=== PATIENT | female | born 1950 | race Caucasian/White ===

== ENCOUNTER 2016-08-12 13:10 | Inpatient (IN) ==
--- NOTE | 2016-08-12 13:13 | Emergency Department Note ---
Disposition Clinical Impression: Morbid obesity, Atrial fibrillation, Atrial fibrillation with rapid ventricular response, COPD (chronic obstructive pulmonary disease), Chronic anticoagulation, Hypertension, Chest pain Disposition: Admitted As Inpatient Condition: Fair Referrals: NO,PCP [Non-Partnered Physician] - General Adult HPI - General Stated complaint: SOB/Think I'm in A-Fib Time Seen by Provider: 08/12/16 13:12 Source: patient, family - History of Present Illness HPI Narrative: 65-year-old female reports to the emergency department complaining of high heart rate. She reports she has a history of atrial fibrillation, she takes sotalol. The patient is also on Coumadin. She reports her felt her heart rafrante go fast last night and it has been persistent. The patient has a history of COPD and recently finished a course of antibiotics for upper respiratory symptoms, she also complains of diarrhea which has been nonbloody. The patient describes some chest pressure earlier but has not had chest pain in the ED. She has been short of breath. She has a slight cough. The patient requires oxygen at home. There is no history of vomiting or diarrhea. No trouble moving the arms or legs independently. No slurred speech or unilateral arm weakness or numbness. No acute back pain or falls. Chronic lower extremity edema as described, the patient does take diuretic medication she denies any coronary artery disease. The patient has not had any coughing of blood or passing out. Onset (ago): hour(s) - Related Data Home Medications Medication Instructions Recorded Confirmed Alendronate Sodium [Fosamax] 70 mg PO WE 10/28/15 08/12/16 Ascorbate Calcium [Vitamin C] 500 mg PO DAILY 10/28/15 08/12/16 Calcium Carbonate/Vitamin D3 1 tab PO BID 10/28/15 08/12/16 [Calcium 500-Vit D3 400 Tablet] Cholecalciferol (Vitamin D3) 1,000 unit PO DAILY 10/28/15 08/12/16 [Vitamin D3] Cyanocobalamin (Vitamin B-12) 100 mcg PO DAILY 10/28/15 08/12/16 [Vitamin B-12] Fluticasone/Salmeterol [Advair 1 puff IH BID 10/28/15 08/12/16 250-50 Diskus] Furosemide [Lasix] 40 mg PO DAILY 10/28/15 08/12/16 Lisinopril [Zestril] 10 mg PO DAILY 10/28/15 08/12/16 Potassium Chloride [K-Tab ER] 20 meq PO DAILY 10/28/15 08/12/16 Ropinirole HCl [Requip] 2 mg PO HS 10/28/15 08/12/16 Tiotropium [Spiriva] 18 mcg IH HS 10/28/15 08/12/16 Warfarin [Coumadin] 5 mg PO QPM 10/28/15 08/12/16 Dexlansoprazole [Dexilant] 60 mg PO DAILY 07/03/16 08/12/16 Ferrous Sulfate [Iron] 325 mg PO DAILY 07/03/16 08/12/16 Doxycycline 100 mg PO BID 08/12/16 08/12/16 Previous Rx's Medication Instructions Recorded Montelukast [Singulair] 10 mg PO DAILY #30 tablet 07/09/16 Sotalol [Betapace] 80 mg PO Q12H #60 tablet 07/09/16 Allergies Allergy/AdvReac Type Severity Reaction Status Date / Time albuterol Allergy Difficulty Verified 08/12/16 16:27 Breathing aspirin [ASA] Allergy Difficulty Verified 08/12/16 13:24 Breathing Penicillins Allergy Hives Verified 08/12/16 13:24 Sulfa (Sulfonamide Allergy Rash Verified 08/12/16 16:27 Antibiotics) All systems ED: reviewed and negative except as stated. Past Medical History - Past Medical History Medical history: Reports: asthma, atrial fibrillation, COPD, hypertension Surgical history: Reports: cholecystectomy, hysterectomy Psychiatric history: Reports: no psych history RN NICU history: Reports: no RN NICU history - Social History Smoking Status: Former smoker Smokeless Tobacco Status: No Alcohol use: Reports: none Drug use: Reports: none Physical Exam - General Limitations: no limitations General appearance: alert, in no apparent distress - Head Head exam: atraumatic, normocephalic, normal inspection - Eye Eye exam: Present: normal appearance, PERRL, EOMI. Absent: scleral icterus, miosis, mydriasis - ENT ENT exam: normal exam, normal oropharynx, mucous membranes moist, normal external ear exam - Neck Neck exam: Present: normal inspection, full ROM, trachea midline - Chest Chest inspection: Present: symmetric chest wall rise. Absent: tenderness - Respiratory Respiratory exam: Present: wheezes, prolonged expiratory phase. Absent: respiratory distress - Cardiovascular Cardiovascular exam: Present: tachycardia, irregular rhythm - Abdominal Exam Abdominal exam: Present: soft, Non-Tender. Absent: tenderness, distention, guarding, rebound, rigidity - Extremities Exam Extremities exam: Present: normal inspection, full ROM, normal capillary refill , pedal edema. Absent: tenderness, joint swelling, calf tenderness - Expanded Lower Extremity Exam Lower leg exam: Absent: Homans' sign Neurovascular/Tendon exam: Absent: motor deficit, sensory deficit, tendon deficit - Back Exam Back exam: Present: normal inspection, full ROM. Absent: tenderness, CVA tenderness (R), CVA tenderness (L), vertebral tenderness - Neurological Exam Neurological exam: Present: alert, oriented X3, CN II-XII intact. Absent: motor sensory deficit - Skin Skin exam: Present: warm, dry, intact, normal color. Absent: rash, cyanosis, diaphoresis, erythema, pallor, mottled Course Vital Signs Temperature 98.4 F 08/12/16 13:15 Pulse Rate 115 08/12/16 13:15 Respiratory Rate 22 08/12/16 13:15 Blood Pressure 139/82 08/12/16 13:15 O2 Sat by Pulse Oximetry 97 08/12/16 13:15 Temperature 98.4 F 08/12/16 13:15 Pulse Rate 71 08/12/16 15:43 Respiratory Rate 15 08/12/16 15:43 Blood Pressure 141/78 08/12/16 15:43 O2 Sat by Pulse Oximetry 97 08/12/16 15:43 Oxygen Delivery Oxygen Delivery Nasal Cannula Medical Decision Making - MDM Narrative Medical decision making narrative: The patient reports she has cardioversion for atrial fibrillation, she was reportedly in sinus rhythm and taking sotalol for control. She appears to have atrial fibrillation with RVR in the ED. She was given some Cardizem which was helpful for rate control. A second EKG has been ordered. The patient did describe some chest pressure but she had none in the ED. Aspirin was ordered. The patient is on Coumadin. Based on the patient's age, multiple comorbidities , apparent breakthrough atrial fibrillation with rapid ventricular response, and chest discomfort, I thought it would be appropriate to admit the patient to the hospital. I consulted the hospitalist. - Lab Data Lab results reviewed: Yes I reviewed the patient's lab results. Result diagrams: 08/12/16 13:30 08/12/16 13:30 Lab Results 08/12/16 08/12/16 08/12/16 Range/Units 13:30 13:30 13:30 WBC 7.3 (4.3-11.1) K/mcL RBC 4.20 (3.82-4.97) M/mcL Hgb 10.7 L (11.5-15.4) g/dL Hct 35.9 (35.3-44.9) % MCV 85.5 (83.0-100.0) fL MCH 25.5 L (28.0-33.3) pg MCHC 29.8 L (31.6-35.5) g/dL RDW 17.1 H (11.5-14.5) % Plt Count 172 (140-400) K/mcL MPV 12.0 (9.4-12.4) fL Immature Gran % 1.4 (0-4) % Seg Neutrophils % 66.7 % Lymphocytes % 18.8 % Monocytes % 11.7 % Eosinophils % 1.0 % Basophils % 0.4 % Neutrophils # 4.9 (1.6-8.9) K/mcL Lymphocytes # 1.4 (0.6-4.6) K/mcL Monocytes # 0.9 (0.0-1.3) K/mcL Eosinophils # 0.1 (0.0-0.6) K/mcL Basophils # 0.0 (0.0-0.2) K/mcL Immature Plt Fraction 9.4 H (1.1-6.1) % PT (9.4-12.1) Seconds INR APTT (26.0-36.0) Seconds Sodium (136-145) mEq/L Potassium (3.5-4.5) mEq/L Chloride (98-109) mEq/L Carbon Dioxide (19-29) mEq/L BUN (7-20) mg/dL Creatinine (0.57-1.11) mg/dL Est GFR ( Amer) (> 60) Est GFR (Non-Af Amer) (> 60) BUN/Creatinine Ratio (6-26) Glucose (70-99) mg/dL Calculated Osmolality (280-300) Lactic Acid 0.7 (0.5-2.2) mmol/L Calcium (8.6-10.8) mg/dL Total Bilirubin 0.3 (0.2-1.2) mg/dL Direct Bilirubin 0.1 (0.0-0.5) mg/dL Indirect Bilirubin 0.2 (0.0-1.2) mg/dL AST 25 (5-34) Units/L ALT 37 (0-55) Units/L Alkaline Phosphatase 61 (38-126) Units/L Troponin I (0-0.03) ng/mL C-Reactive Protein (Less than 5) mg/L B-Natriuretic Peptide (0-100) pg/mL Serum Total Protein 6.3 (6.0-8.3) g/dL Albumin 3.2 L (3.5-5.0) g/dL Globulin 3.1 (2.4-3.5) g/dL Albumin/Globulin Ratio 1.0 L (1.1-2.2) 08/12/16 08/12/16 08/12/16 Range/Units 13:30 13:30 13:30 WBC (4.3-11.1) K/mcL RBC (3.82-4.97) M/mcL Hgb (11.5-15.4) g/dL Hct (35.3-44.9) % MCV (83.0-100.0) fL MCH (28.0-33.3) pg MCHC (31.6-35.5) g/dL RDW (11.5-14.5) % Plt Count (140-400) K/mcL MPV (9.4-12.4) fL Immature Gran % (0-4) % Seg Neutrophils % % Lymphocytes % % Monocytes % % Eosinophils % % Basophils % % Neutrophils # (1.6-8.9) K/mcL Lymphocytes # (0.6-4.6) K/mcL Monocytes # (0.0-1.3) K/mcL Eosinophils # (0.0-0.6) K/mcL Basophils # (0.0-0.2) K/mcL Immature Plt Fraction (1.1-6.1) % PT 36.1 H (9.4-12.1) Seconds INR 3.2 APTT 38.4 H (26.0-36.0) Seconds Sodium 144 (136-145) mEq/L Potassium 4.2 (3.5-4.5) mEq/L Chloride 106 (98-109) mEq/L Carbon Dioxide 32 H (19-29) mEq/L BUN 24 H (7-20) mg/dL Creatinine 0.75 (0.57-1.11) mg/dL Est GFR ( Amer) > 60 (> 60) Est GFR (Non-Af Amer) > 60 (> 60) BUN/Creatinine Ratio 32 H (6-26) Glucose 105 H (70-99) mg/dL Calculated Osmolality 302 H (280-300) Lactic Acid (0.5-2.2) mmol/L Calcium 9.1 (8.6-10.8) mg/dL Total Bilirubin (0.2-1.2) mg/dL Direct Bilirubin (0.0-0.5) mg/dL Indirect Bilirubin (0.0-1.2) mg/dL AST (5-34) Units/L ALT (0-55) Units/L Alkaline Phosphatase (38-126) Units/L Troponin I 0.00 (0-0.03) ng/mL C-Reactive Protein 5 H (Less than 5) mg/L B-Natriuretic Peptide (0-100) pg/mL Serum Total Protein (6.0-8.3) g/dL Albumin (3.5-5.0) g/dL Globulin (2.4-3.5) g/dL Albumin/Globulin Ratio (1.1-2.2) 08/12/16 Range/Units 13:30 WBC (4.3-11.1) K/mcL RBC (3.82-4.97) M/mcL Hgb (11.5-15.4) g/dL Hct (35.3-44.9) % MCV (83.0-100.0) fL MCH (28.0-33.3) pg MCHC (31.6-35.5) g/dL RDW (11.5-14.5) % Plt Count (140-400) K/mcL MPV (9.4-12.4) fL Immature Gran % (0-4) % Seg Neutrophils % % Lymphocytes % % Monocytes % % Eosinophils % % Basophils % % Neutrophils # (1.6-8.9) K/mcL Lymphocytes # (0.6-4.6) K/mcL Monocytes # (0.0-1.3) K/mcL Eosinophils # (0.0-0.6) K/mcL Basophils # (0.0-0.2) K/mcL Immature Plt Fraction (1.1-6.1) % PT (9.4-12.1) Seconds INR APTT (26.0-36.0) Seconds Sodium (136-145) mEq/L Potassium (3.5-4.5) mEq/L Chloride (98-109) mEq/L Carbon Dioxide (19-29) mEq/L BUN (7-20) mg/dL Creatinine (0.57-1.11) mg/dL Est GFR ( Amer) (> 60) Est GFR (Non-Af Amer) (> 60) BUN/Creatinine Ratio (6-26) Glucose (70-99) mg/dL Calculated Osmolality (280-300) Lactic Acid (0.5-2.2) mmol/L Calcium (8.6-10.8) mg/dL Total Bilirubin (0.2-1.2) mg/dL Direct Bilirubin (0.0-0.5) mg/dL Indirect Bilirubin (0.0-1.2) mg/dL AST (5-34) Units/L ALT (0-55) Units/L Alkaline Phosphatase (38-126) Units/L Troponin I (0-0.03) ng/mL C-Reactive Protein (Less than 5) mg/L B-Natriuretic Peptide 412 H (0-100) pg/mL Serum Total Protein (6.0-8.3) g/dL Albumin (3.5-5.0) g/dL Globulin (2.4-3.5) g/dL Albumin/Globulin Ratio (1.1-2.2) - Radiology Data Radiology results reviewed: Yes I reviewed the patient's radiology results.
[2016-08-12 13:42] LABS: Basophils % 0.4 %; Eosinophils # 0.1 K/mcL (0.0-0.6); Hematocrit 35.9 % (35.3-44.9); Hemoglobin 10.7 g/dL (11.5-15.4); Immature Granulocytes % 1.4 % (0-4); Immature Platelets 9.4 % (1.1-6.1); Lymphocytes # 1.4 K/mcL (0.6-4.6); Lymphocytes % 18.8 %; Mean Corpuscular HGB Conc 29.8 g/dL (31.6-35.5); Mean Corpuscular Hemoglobin 25.5 pg (28.0-33.3); Mean Corpuscular Volume 85.5 fL (83.0-100.0); Monocytes # 0.9 K/mcL (0.0-1.3); Monocytes % 11.7 %; Neutrophils # 4.9 K/mcL (1.6-8.9); Platelet Count 172 K/mcL (140-400); Red Cell Distribution Width 17.1 % (11.5-14.5); Segmented Neutrophils % 66.7 %
[2016-08-12 13:48] LABS: INR 3.2; Prothrombin Time 36.1 Seconds (9.4-12.1)
[2016-08-12 13:51] LABS: Activated Partial Thrombo Time 38.4 Seconds (26.0-36.0)
[2016-08-12 13:53] LABS: BUN/Creatinine Ratio 32 (6-26); Blood Urea Nitrogen 24 mg/dL (7-20); Calcium 9.1 mg/dL (8.6-10.8); Carbon Dioxide 32 mEq/L (19-29); Chloride 106 mEq/L (98-109); Glucose 105 mg/dL (70-99); Osmolality,Calculated 302 (280-300); Potassium 4.2 mEq/L (3.5-4.5); Sodium 144 mEq/L (136-145); eGFR For African Americans > 60 (> 60); eGFR For Non-African Americans > 60 (> 60)
[2016-08-12 13:56] LABS: Albumin 3.2 g/dL (3.5-5.0); Bilirubin,Direct 0.1 mg/dL (0.0-0.5); Bilirubin,Indirect 0.2 mg/dL (0.0-1.2); Bilirubin,Total 0.3 mg/dL (0.2-1.2); Globulin 3.1 g/dL (2.4-3.5); Total Protein 6.3 g/dL (6.0-8.3)
[2016-08-12 14:06] LABS: C-Reactive Protein 5 mg/L (Less than 5)
[2016-08-12] MEDS ORDERED: Aspirin 325 MG TABLET PO ONE (15:47)
[2016-08-12] MEDS ORDERED: Naloxone 0.4 MG/ML INJ IVP PRN (18:42)
[2016-08-12] MEDS ORDERED: Acetaminophen 325 MG TABLET PO PRN (18:42)
--- NOTE | 2016-08-12 19:08 | Internal Med History&Physical ---
Date of Encounter: 08/12/16 Time of Encounter: 18:00 Assessment and Plan (1) Atrial fibrillation with rapid ventricular response Current visit: Yes Status: Acute Telemetry monitoring, trend troponins. Continue home dose of sotalol for now with when necessary IV Cardizem. She did receive 1 dose of IV Cardizem in the emergency room and her heart rate has been staying around 100. Cardiology consult for possible cardioversion and addition of calcium channel balbina or beta balbina. She was noted to have bradycardia after converting to sinus rhythm during her previous admission due to which her Cardizem was held. Check 2-D echocardiogram. (2) Essential hypertension Current visit: Yes Status: Chronic Resume home meds. (3) COPD (chronic obstructive pulmonary disease) Current visit: Yes Status: Chronic Not in acute exacerbation. Continue when necessary bronchodilators and supplemental oxygen. Patient is noted to be on 3 L/m oxygen via nasal cannula at home. Qualifiers: COPD type: emphysema Emphysema type: unspecified Qualified Code(s): J43.9 - Emphysema, unspecified (4) Morbid obesity Current visit: Yes Status: Chronic Qualifiers: Obesity type: due to excess calories Qualified Code(s): E66.01 - Morbid ( severe) obesity due to excess calories (5) Diastolic CHF Current visit: Yes Status: Chronic Qualifiers: Congestive heart failure chronicity: chronic Qualified Code(s): I50.32 - Chronic diastolic (congestive) heart failure Internal Medicine - H&P: HPI Chief complaint: Palpitations, chest pain Admitted From: Emergency Dept Plans for Post Hospital Care: Home History of present illness: Ms. Guevara is a 65 year old female with history of paroxysmal atrial fibrillation presents with complaints of palpitations that started last night. Patient was recently admitted and discharged from our hospital about 2 weeks back with similar complaints at which time she underwent electrical cardioversion, her Cardizem was held and she was started on sotalol. She reports compliance to her medications and recently had upper respiratory tract infection for which she received oral antibiotics and steroids. She had a sudden onset of severe palpitations associated with some chest discomfort last night, that persisted until this morning and she decided to come in for evaluation. She does have leg swelling at baseline and some orthopnea but no particular exertional dyspnea, dizziness or syncope. Past Med Surg Social Fam HX - Past Medical History Medical history: asthma, atrial fibrillation, CHF, COPD, hypertension Psychiatric history: no psych history - Past Surgical History Surgical History: cholecystectomy, hysterectomy - Social History Smoking Status: Former smoker Smokeless Tobacco Status: No Alcohol use: none Drug use: none Occupational status: retired Current living situation: Home, With Family Activity Level: Independent ambulation Recent Out of Country Travel Within the Last 8 Weeks: No Exposure or Possible Exposure to Illness During Travel: No - Family History Sister Living Status: Hx Family Cardiac Disorders: Yes Hx Family Respiratory Disorders: Yes (copd) Mother Adopted: No Family Member Ethnicity: Non- Twin of Family Member: Yes, Fraternal Living Status: Hx Family Cardiac Disorders: Yes (chf) Hx Family Respiratory Disorders: No Hx Family Cancer: No Hx Family GI Disorders: No Hx Family Endocrine Disorder: No Hx Family Neuromuscular Disorders: No Hx Family Neurologic Disorders: No Hx Family HEENT Disorders: Yes (tumor in rt ear benign at age 60) Hx Family Autoimmune Disorders: No Father Adopted: No Family Member Ethnicity: Non- Twin of Family Member: Yes, Fraternal Living Status: Age at : 47 Hx Family Cardiac Disorders: Yes Hx Family Respiratory Disorders: Yes (COPD) Hx Family Cancer: No Hx Family GI Disorders: No Hx Family Endocrine Disorder: No Hx Family Neuromuscular Disorders: No Hx Family Neurologic Disorders: No Hx Family HEENT Disorders: No Hx Family Autoimmune Disorders: No Internal Medicine - H&P: Meds Alendronate Sodium [Fosamax] 70 mg PO WE 10/28/15 [History] Ascorbate Calcium [Vitamin C] 500 mg PO DAILY 10/28/15 [History] Calcium Carbonate/Vitamin D3 [Calcium 500-Vit D3 400 Tablet] 1 tab PO BID [History] Cholecalciferol (Vitamin D3) [Vitamin D3] 1,000 unit PO DAILY 10/28/15 [History] Cyanocobalamin (Vitamin B-12) [Vitamin B-12] 100 mcg PO DAILY 10/28/15 [History] Fluticasone/Salmeterol [Advair 250-50 Diskus] 1 puff IH BID 10/28/15 [History] Furosemide [Lasix] 40 mg PO DAILY 10/28/15 [History] Lisinopril [Zestril] 10 mg PO DAILY 10/28/15 [History] Potassium Chloride [K-Tab ER] 20 meq PO DAILY 10/28/15 [History] Ropinirole HCl [Requip] 2 mg PO HS 10/28/15 [History] Tiotropium [Spiriva] 18 mcg IH HS 10/28/15 [History] Warfarin [Coumadin] 5 mg PO QPM 10/28/15 [History] Dexlansoprazole [Dexilant] 60 mg PO DAILY 07/03/16 [History] Ferrous Sulfate [Iron] 325 mg PO DAILY 07/03/16 [History] Montelukast [Singulair] 10 mg PO DAILY #30 tablet 07/09/16 [Rx] Sotalol [Betapace] 80 mg PO Q12H #60 tablet 07/09/16 [Rx] Doxycycline 100 mg PO BID 08/12/16 [History] Allergies albuterol Allergy (Verified 08/12/16 16:27) Difficulty Breathing aspirin [ASA] Allergy (Verified 08/12/16 13:24) Difficulty Breathing Penicillins Allergy (Verified 08/12/16 13:24) Hives Sulfa (Sulfonamide Antibiotics) Allergy (Verified 08/12/16 16:27) Rash All Systems PM: A 10-system review of systems was performed and is negative for pertinent findings except as documented above in the HPI. - Constitutional Constitutional: no chills, no fever(s), no night sweats - EENT Eyes: no change in vision, no discharge, no pain, no photophobia Ears: no ear discharge, no ear pain, no tinnitus Nose, mouth and throat: no dysphagia, no nasal discharge, no neck pain, no sore throat - Cardiovascular Cardiovascular ROS IM: chest pain, edema, palpitations - Respiratory Respiratory: no cough, no dyspnea, no wheezing, no excessive phlegm production - Gastrointestinal Gastrointestinal: no abdominal pain, no diarrhea, no hematemesis, no hematochezia, no melena, no nausea, no vomiting - Genitourinary Genitourinary: no change in urinary stream, no dysuria, no flank pain, no hematuria - Musculoskeletal Musculoskeletal ROS IM: no numbness, no tingling - Integumentary Integumentary IM: no rash, no unusual bruising - Neurological Neurological ROS: no confusion, no convulsions, no focal weakness, no numbness, no tingling, no tremor(s) - Hematologic/Lymphatic Hematologic/Lymphatic: no easy bruising - Constitutional Vitals: Temp Pulse Resp BP Pulse Ox 98.3 F 98 22 169/85 97 08/12/16 18:54 08/12/16 18:54 08/12/16 18:54 08/12/16 18:54 08/12/16 18:54 General appearance: Present: A&O X 3, morbidly obese, answers questions appropriately - Head Head exam: Present: atraumatic, normocephalic - Neck Neck exam general surgery: Present: supple, trachea midline. Absent: lymphadenopathy - Respiratory Respiratory exam: Present: CTAB. Absent: accessory muscle use, rales, rhonchi, wheezes - Cardiovascular Cardiovascular exam: Present: irregular rhythm, +S1, +S2, tachycardia. Absent: diastolic murmur, gallop, rubs, systolic murmur - GI/Abdominal GI/Abdominal exam: Present: normal bowel sounds, soft, no peritoneal signs. Absent: distended, tenderness - Extremities Exam Extremities exam: Present: full ROM, pedal edema, warm, radial pulses palpable and symetrical. Absent: calf tenderness, cyanotic - Neurological Exam Neurological exam: Present: CN II-XII intact, oriented X3, no focal deficits. Absent: pronater drift, facial droop, speech deficit - Skin Skin exam: Present: dry, intact Internal Med - H&P Results - Labs CBC & Chem 7: 08/13/16 01:04 08/13/16 01:04 - EKG Data -: EKG Interpreted by Myself EKG shows normal: sinus rhythm Rate: tachycardia
[2016-08-12] MEDS: Budesonide/Formoterol 160/4.5 MDI IH SCH (20:17)
[2016-08-12] MEDS: Tiotropium 18 MCG inhalation IH SCH (20:17)
[2016-08-12] MEDS: rOPINIRole 1 MG TABLET PO SCH (22:00)
[2016-08-12] MEDS: Doxycycline 100 MG CAPSULE PO SCH (22:00)
[2016-08-13 01:21] LABS: Basophils % 0.5 %; Eosinophils # 0.1 K/mcL (0.0-0.6); Hematocrit 34.4 % (35.3-44.9); Hemoglobin 10.1 g/dL (11.5-15.4); Immature Granulocytes % 1.2 % (0-4); Lymphocytes # 1.4 K/mcL (0.6-4.6); Lymphocytes % 23.9 %; Mean Corpuscular HGB Conc 29.4 g/dL (31.6-35.5); Mean Corpuscular Hemoglobin 25.6 pg (28.0-33.3); Mean Corpuscular Volume 87.1 fL (83.0-100.0); Mean Platelet Volume 12.2 fL (9.4-12.4); Monocytes # 0.6 K/mcL (0.0-1.3); Neutrophils # 3.6 K/mcL (1.6-8.9); Platelet Count 159 K/mcL (140-400); Red Blood Count 3.95 M/mcL (3.82-4.97); Red Cell Distribution Width 17.2 % (11.5-14.5); Segmented Neutrophils % 62.4 %
[2016-08-13 01:41] LABS: Calcium 8.8 mg/dL (8.6-10.8)
--- NOTE | 2016-08-13 07:30 | Cardiology Consult Note ---
<Jose Enrique Garcia Oralia - Last Filed: 08/13/16 09:08> Date of Encounter: 08/13/16 Time of Encounter: 07:30 Assessment and Plan (1) Atrial fibrillation with rapid ventricular response Current Visit: Yes Status: Acute Per Cardiology: History of paroxysmal atrial fibrillation. Started on Sotalol 80mg PO BID 2015. Now in afib with RVR again in setting of upper respiratory infection and COPD exacerbation. Avg HR on tele 107 past 24 hrs. TSH ok, MG and K 2.0 and 4.0. Has echo pending, however had no valvular issues in 11/2015 and EF 70-75% at that time, will switch to limited to assess for EF changes. Negative stress test 11/2014. Remains on sotalol 80 mg by mouth twice a day with most recent QT/ QTC 304/373 ms. Discussed and reviewed with Dr. Cedillo, will resume previous home dose of Cardizem CD 180 mg by mouth daily, current systolic blood pressure in the 130s to 150s. We'll continue to monitor for rate control. May need attempt at adventist of sinus rhythm with cardioversion prior to discharge. Will consider increasing sotalol if deemed appropriate. Regarding long-term anticoagulation, remains on Coumadin with current INR 3.2. Monitors at home and managed by PCP. Denies any current active bleeding or blood loss. She reports no INRs less than 2.0 over the past one month. (2) Chronic anticoagulation Current Visit: Yes Status: Chronic Per Cardiology: On Coumadin with INR = 3.2. (3) TANO (acute kidney injury) Current Visit: Yes Status: Acute Per Cardiology: Appears intermittent hx of CKD stage 3a, now with mild TANO, creat up to 1.24-- suspect related to recent diarrhea. Will stop ACEI. On PO lasix, will continue for now. Discussion w patient/family: The assessment and plan as outlined above was discussed with the patient who expressed understanding and agreement. All questions were answered. Thank you for involving us in the care of your patient. Please call with any questions. History of Present Illness Consult date: 08/13/16 Requesting physician: Anusha Martin Consult reason: Afib Chief complaint: Palpitations History of present illness: Ms. Guevara is a 65 year old female with a relevant past medical history of asthma /COPD, hypertension, paroxysmal atrial fibrillation on sotalol therapy and Coumadin, and passed nicotine abuse. Patient reports over the past 2 weeks has been experiencing a dry nonproductive cough with episodes of diarrhea as well. Denies any other symptoms-- denies any fever, nausea, vomiting. Reports completed a Z-Roberto and another antibiotic by her PCP and started on a third antibiotic this past . She reports Sunday evening developed sudden onset prior to going to bed of thumping sensations in her chest with chest heaviness. She reports it felt like a horse galloping on her chest. She reports she takes Coumadin managed by home monitor and her PCP and her INRs have been therapeutic recently. She denies any active bleeding or blood loss. Reports compliance with sotalol 80 mg by mouth twice a day. Reports had previous of been on Cardizem CD 180 mg by mouth daily that was stopped at time of sotalol initiation last month. She reports she utilizes home oxygen 24 7. Last smoked about 30 years ago. Past Med Surg Social Fam HX - Past Medical History Attestation: Yes The following information was validated with the patient. Source: patient, old records reviewed Medical history: asthma, atrial fibrillation, COPD, hypertension Psychiatric history: no psych history - Past Surgical History Surgical History: cholecystectomy, hysterectomy - Social History Smoking Status: Former smoker Smokeless Tobacco Status: No Alcohol use: none Drug use: none - Family History Sister Living Status: Hx Family Cardiac Disorders: Yes Hx Family Respiratory Disorders: Yes (copd) Mother Adopted: No Family Member Ethnicity: Non- Twin of Family Member: Yes, Fraternal Living Status: Hx Family Cardiac Disorders: Yes (chf) Hx Family Respiratory Disorders: No Hx Family Cancer: No Hx Family GI Disorders: No Hx Family Endocrine Disorder: No Hx Family Neuromuscular Disorders: No Hx Family Neurologic Disorders: No Hx Family HEENT Disorders: Yes (tumor in rt ear benign at age 60) Hx Family Autoimmune Disorders: No Father Adopted: No Family Member Ethnicity: Non- Twin of Family Member: Yes, Fraternal Living Status: Age at : 47 Hx Family Cardiac Disorders: Yes Hx Family Respiratory Disorders: Yes (COPD) Hx Family Cancer: No Hx Family GI Disorders: No Hx Family Endocrine Disorder: No Hx Family Neuromuscular Disorders: No Hx Family Neurologic Disorders: No Hx Family HEENT Disorders: No Hx Family Autoimmune Disorders: No Medications and Allergies Alendronate Sodium [Fosamax] 70 mg PO WE 10/28/15 [History] Ascorbate Calcium [Vitamin C] 500 mg PO DAILY 10/28/15 [History] Calcium Carbonate/Vitamin D3 [Calcium 500-Vit D3 400 Tablet] 1 tab PO BID [History] Cholecalciferol (Vitamin D3) [Vitamin D3] 1,000 unit PO DAILY 10/28/15 [History] Cyanocobalamin (Vitamin B-12) [Vitamin B-12] 100 mcg PO DAILY 10/28/15 [History] Fluticasone/Salmeterol [Advair 250-50 Diskus] 1 puff IH BID 10/28/15 [History] Furosemide [Lasix] 40 mg PO DAILY 10/28/15 [History] Lisinopril [Zestril] 10 mg PO DAILY 10/28/15 [History] Potassium Chloride [K-Tab ER] 20 meq PO DAILY 10/28/15 [History] Ropinirole HCl [Requip] 2 mg PO HS 10/28/15 [History] Tiotropium [Spiriva] 18 mcg IH HS 10/28/15 [History] Warfarin [Coumadin] 5 mg PO QPM 10/28/15 [History] Dexlansoprazole [Dexilant] 60 mg PO DAILY 07/03/16 [History] Ferrous Sulfate [Iron] 325 mg PO DAILY 07/03/16 [History] Montelukast [Singulair] 10 mg PO DAILY #30 tablet 07/09/16 [Rx] Sotalol [Betapace] 80 mg PO Q12H #60 tablet 07/09/16 [Rx] Doxycycline 100 mg PO BID 08/12/16 [History] Allergies albuterol Allergy (Verified 08/12/16 16:27) Difficulty Breathing aspirin [ASA] Allergy (Verified 08/12/16 13:24) Difficulty Breathing Penicillins Allergy (Verified 08/12/16 13:24) Hives Sulfa (Sulfonamide Antibiotics) Allergy (Verified 08/12/16 16:27) Rash All Systems Review: A 10-system review of systems was performed and is negative for pertinent findings except as documented above in the HPI. - Cardiovascular Cardiovascular: as per HPI, chest pain at rest, dyspnea at rest, dyspnea on exertion, irregular heart rhythm, palpitations, rapid heart rate - Respiratory Respiratory: cough - Gastrointestinal Gastrointestinal: diarrhea Physical Examination Vital Signs, Last 4 Hours Temp Pulse Resp BP Pulse Ox 08/13/16 07:06 97.8 F 98 18 167/89 96 08/13/16 04:56 98.5 F 104 20 152/83 96 General: Conversant, No Apparent Distress HEENT: Atraumatic, Normocephaly, Mucus Membranes Moist Neck: No JVD, Normal carotid pulses Cardiac: Reg Rate and Rhythm, Normal S1 and S2, No Murmur Lungs: Normal Breath Sounds, No Wheeze, Rales, Rhonchi Neuro: Alert and responsive, No focal deficits noted Abdomen: Soft, Non-Tender, Other (obese) Skin: No rashes noted on visualized skin Musculoskeletal: No Chest Wall Tenderness Extremities: Normal Pulses, Other (Trace pitting edema to bilateral lower extremities) Results 08/13/16 01:04 08/13/16 01:04 Lab Results Laboratory Tests 07/08/16 08/12/16 08/12/16 05:27 13:30 13:30 INR 3.2 Creatinine 1.24 H 0.75 Est GFR (Non-Af Amer) 43 L > 60 Troponin I B-Natriuretic Peptide 08/12/16 08/12/16 08/12/16 13:30 13:30 19:43 INR Creatinine Est GFR (Non-Af Amer) Troponin I 0.00 0.02 B-Natriuretic Peptide 412 H 08/13/16 08/13/16 01:04 01:04 INR Creatinine 1.20 H D Est GFR (Non-Af Amer) 45 L Troponin I 0.00 B-Natriuretic Peptide 07/02/16 08/13/16 16:20 01:04 Potassium 4.0 Magnesium 2.0 TSH 1.852 ITS Impressions Chest X-Ray 08/12/16 13:14 IMPRESSION: 1. No significant change. D/ / Travon King MD / Travon King MD Interpreting Provider: Travon King MD Intake & Output 08/10/16 08/11/16 08/12/16 08/13/16 23:59 23:59 23:59 23:59 Intake Total 450 / 450 120 / 120 Output Total 400 / 400 Balance 450 / 450 -280 / -280 Weight 142.156 kg 141.702 kg Active Medications Acetaminophen (Tylenol) 650 mg PO Q6HR PRN PRN Reason: Mild Pain (1-3) Stop: 02/11/17 18:43 Budesonide/Formoterol Fumarate (Symbicort) 1 puff IH BIDR [facility] Stop: 02/11/17 22:01 Last Admin: 08/12/16 20:17 Dose: Not Given Doxycycline Hyclate (Doxycycline) 100 mg PO BID [facility] Stop: 02/11/17 21:01 Last Admin: 08/12/16 22:00 Dose: 100 mg Ferrous Sulfate (Ferrous Sulfate) 325 mg PO DAILY [facility] Stop: 02/12/17 09:01 Furosemide (Lasix) 40 mg PO DAILY [facility] Stop: 02/12/17 09:01 Lisinopril (Zestril) 10 mg PO DAILY [facility] PRN Reason: Protocol Stop: 02/12/17 09:01 Montelukast Sodium (Singulair) 10 mg PO DAILY [facility] Stop: 02/12/17 09:01 Naloxone HCl (Narcan) 0.4 mg IVP Q2MIN PRN PRN Reason: Opioid Reversal Stop: 02/11/17 18:43 Pharmacy Profile Note (Patient Taking Own Medication) 0 each PO DAILY [facility] Stop: 02/12/17 09:01 Potassium Chloride (Potassium Chloride) 20 meq PO DAILY [facility] Stop: 02/12/17 09:01 Ropinirole HCl (Requip) 2 mg PO HS [facility] Stop: 02/11/17 21:01 Last Admin: 08/12/16 22:00 Dose: 2 mg Sotalol HCl (Betapace) 80 mg PO Q12H [facility] Stop: 02/11/17 18:46 Last Admin: 08/13/16 06:22 Dose: 80 mg Tiotropium [place] (Spiriva) 18 mcg IH HS [facility] PRN Reason: Protocol Stop: 02/11/17 21:01 Last Admin: 08/12/16 20:17 Dose: 18 mcg Warfarin Sodium (Coumadin) 3 mg PO QPM [facility] Stop: 02/12/17 18:01 - Imaging and Cardiology Chest Xray: report reviewed Stress Test: report reviewed Echo: report reviewed - EKG Interpretation EKG results cardiology: personally reviewed (Atrial fibrillation with rapid ventricular response), other (24 hour telemetry reviewed with average heart rate 107, atrial fibrillation, current heart rate 105 to 115 on telemetry, A. fib) Consult Discharge Plan - Plan Referrals: Lisbet Ray CNP [Primary Care Provider] - <[email or web address] - Last Filed: 08/13/16 11:28> Date of Encounter: 08/13/16 Assessment and Plan Discussion w patient/family: The assessment and plan as outlined above was discussed with the patient and/or family members who expressed understanding and agreement. All questions were answered. Thank you for involving us in the care of your patient. Please call with any questions. History of Present Illness History of present illness: Ms. Guevara is a 65 year old female All Systems Review: A 10-system review of systems was performed and is negative for pertinent findings except as documented above in the HPI. Results 08/13/16 01:04 08/13/16 01:04 Lab Results 08/12/16 08/13/16 08/13/16 19:43 01:04 01:04 WBC 5.8 Hgb 10.1 L Hct 34.4 L Plt Count 159 Sodium Potassium Chloride Carbon Dioxide BUN Creatinine Glucose Calcium Magnesium Troponin I 0.02 0.00 08/13/16 08/13/16 01:04 07:49 WBC Hgb Hct Plt Count Sodium 143 Potassium 4.0 Chloride 106 Carbon Dioxide 31 H BUN 21 H Creatinine 1.20 H D Glucose 134 H Calcium 8.8 Magnesium 2.0 Troponin I 0.00 - Attending Attestation I examined this patient and my medical decision-making was reviewed with the CLASSIFIER/PA/Advanced Practice Nurse/Resident Physician. I agree with the documented findings, disposition and treatment plan. Ms. Guevara presents with AF RVR in the setting of dehydration secondary to diarrhea and possibly COPD exacerbation. Patient states that during her most recent hospitalization, she was treated with IV antibiotics and then placed on oral antibiotics as an outpatient. She subsequently states that she had 2 different antibiotics after that over the past few weeks. She reports having occasional diarrhea prior to her hospitalization but over the past few weeks since discharge, she has had significant bouts of diarrhea. Therefore, the likely semi driver of AFib RVR is secondary to dehydration. It is unclear, however the extent to which sotalol may be contributing to her diarrhea. It does appear however, that antibiotic use is the main culprit. She does not have a leukocytosis and is afebrile and I would recommend stopping antibiotics if they are not absolutely indicated. I will defer to the primary team in that regard. For now, we recommend continuing sotalol at the present dose. I am hesitant to increase it secondary to her complaints of diarrhea, again the extent of sotalol 's contribution is unclear. She also has mild new renal insufficiency. We will restart Cardizem which she had previously been on. We may consider DCCV during the visit. She would not require ZOILA as she has been therapeutic on Coumadin. This was discussed with the patient and her . They expressed understanding and agreement.
[2016-08-13] MEDS: Budesonide/Formoterol 160/4.5 MDI IH SCH ×2 (07:37→19:39)
--- NOTE | 2016-08-13 08:49 | Internal Med Progress Note ---
Date of Encounter: 08/13/16 Time of Encounter: 08:47 - Assessment and plan (1) Atrial fibrillation with rapid ventricular response Current Visit: Yes Status: Acute Assessment and plan: HR ranging between 80-110; Cardiology consult appreciated, added Cardizem, continue to monitor Telemetry; continue Sotalol; long term care social worker anticoagulation with Coumadin, INR therapeutic; Echo pending; (2) Chest pain Current Visit: Yes Status: Acute Assessment and plan: likely related to palpitations and atrial fibrillation; Troponins negative; f/ up Echo and Cardiology recommendations; Qualifiers: Chest pain type: precordial chest pain Qualified Code(s): R07.2 - Precordial pain (3) Essential hypertension Current Visit: Yes Status: Chronic Assessment and plan: BP fairly controlled; hold ACEI for now due to renal dysfunction; (4) COPD (chronic obstructive pulmonary disease) Current Visit: Yes Status: Chronic Assessment and plan: not in acute exacerbation, but has been started on Doxycycline recently, will complete the course; PRN bronchodilators and supplemental O2; on home O2 at 3L/ min; Qualifiers: COPD type: emphysema Emphysema type: unspecified Qualified Code(s): J43.9 - Emphysema, unspecified (5) Morbid obesity Current Visit: Yes Status: Chronic Qualifiers: Obesity type: due to excess calories Qualified Code(s): E66.01 - Morbid ( severe) obesity due to excess calories (6) Diastolic CHF Current Visit: Yes Status: Chronic Qualifiers: Congestive heart failure chronicity: chronic Qualified Code(s): I50.32 - Chronic diastolic (congestive) heart failure (7) TANO (acute kidney injury) Current Visit: Yes Status: Acute Assessment and plan: likely due to dehydration and recent URTIs in the setting of ACEI, diuretic use ; hold ACEI for now and continue to monitor; - Subjective Interval history: Continues to have HR around 100-106; intermittent palpitations; wants to have atrial fibrillation converted to sinus, if possible; no chest pain, dyspnea; continues to be at baseline O2 requirements; - Constitutional Vitals: Temp Pulse Resp BP Pulse Ox 97.8 F 98 18 167/89 96 08/13/16 07:06 08/13/16 07:06 08/13/16 07:06 08/13/16 07:06 08/13/16 07:06 General appearance: Present: A&O X 3, answers questions appropriately - Respiratory Respiratory exam: Present: CTAB. Absent: accessory muscle use, rales, rhonchi, wheezes - Cardiovascular Cardiovascular exam: Present: irregular rhythm, +S1, +S2. Absent: diastolic murmur, gallop, rubs, systolic murmur - Extremities Exam Extremities exam: Present: pedal edema, warm, radial pulses palpable and symetrical. Absent: calf tenderness, cyanotic - Neurological Exam Neurological exam: Present: CN II-XII intact, oriented X3, no focal deficits. Absent: pronater drift, facial droop, speech deficit Internal Medicine: Result - Labs CBC & Chem 7: 08/13/16 01:04 08/14/16 03:41 Labs: Short CBC 08/13/16 Range/Units 01:04 WBC 5.8 (4.3-11.1) K/mcL Hgb 10.1 L (11.5-15.4) g/dL Hct 34.4 L (35.3-44.9) % Plt Count 159 (140-400) K/mcL Neutrophils # 3.6 (1.6-8.9) K/mcL BMP 08/13/16 01:04 Sodium 143 Potassium 4.0 Chloride 106 Carbon Dioxide 31 H BUN 21 H Creatinine 1.20 H D Glucose 134 H Calcium 8.8 Cardiac Enzymes 08/12/16 08/13/16 08/13/16 Range/Units 19:43 01:04 07:49 Troponin I 0.02 0.00 0.00 (0-0.03) ng/mL - ABG Interpretation ABG results: PT/INR, D-dimer PT 36.1 Seconds (9.4-12.1) H 08/12/16 13:30 Consult Discharge Plan - Plan Referrals: Lisbet Ray CNP [Primary Care Provider] - 08/18/16 1:30 pm ( )
[2016-08-13] MEDS: Furosemide 40 MG TABLET PO SCH (09:40)
[2016-08-13] MEDS: Doxycycline 100 MG CAPSULE PO SCH ×2 (09:40→21:23)
[2016-08-13] MEDS: (Dexlansoprazole [Dexilant] 60 MG) PO SCH (09:40)
[2016-08-13] MEDS: Diltiazem CD (24hr) 180 MG CAPSULE PO SCH (09:40)
--- NOTE | 2016-08-13 13:10 | ECHO - Doppler Report ---
Limited Echocardiogram Name: Alyssa Guevara Date of Study: 08/13/2016 Date: 1950 Ht: 63.0 in Medical Record#: [id number] Age: 65 Wt: 312.0 lb Gender: Female BSA: 2.34 Order #: [id number] Location: [facility] Room #: [id number] Reading Physician: Taniya Cedillo DO Senior Electrical Controls Engineer: Sharla Mckeon Ordering Physician: Bárbara Martin MD Primary Physician: Lisbet Ray CNP Indications: Atrial Fibrillation Impressions: LVEF 60%. Normal left ventricular size and systolic function. Moderate concentric hypertrophy of the left ventricle. RV is mildly dilated with normal function. Left Ventricular Wall Motion: Rest Echo Findings The mid anterior and basal anterior hearn were not visualized. All other wall segments showed normal motion. Findings: Study Quality * Technically adequate exam. ECG Findings * Atrial fibrillation. Left Ventricle * Moderate concentric left ventricular hypertrophy. * LVEF 60%. Right Ventricle * RV is mildly dilated with normal function. History Hypertension Family History of CAD 11/29/2015 a Previous Echo was performed. Measurements: BP: 152/ 83 2D Normal Values RVIDd: 2.79 cm <2.7 cm IVSd: 1.05 cm 0.6 - 1.0 cm LVIDd: 5.18 cm 3.7 - 5.6 cm LVPWd: 1.02 cm 0.6 - 1.1 cm LVIDs: 3.83 cm 1.5 - 3.6 cm LA: 3.50 cm 2.0 - 4.0cm %FS: 26.10 cm >25 % LA volume: Updated by Taniya Cedillo on 08/13/2016 1:05:08 PM electronically signed on 08/13/2016 1:06:32 PM with status of Final Wall Motion Brown: 1=Normal, 2=Hypokinesis, 3=Akinesis, 4=Dyskinesis, 5=Aneurysmal, 6=Hyperkinetic, X=Not Visualized (Blank)=Missing
[2016-08-13] MEDS: *HR* Warfarin 3 MG TABLET PO SCH (18:29)
[2016-08-13] MEDS: Tiotropium 18 MCG inhalation IH SCH (19:38)
[2016-08-13] MEDS: rOPINIRole 1 MG TABLET PO SCH (21:24)
[2016-08-14 04:17] LABS: BUN/Creatinine Ratio 27 (6-26); Blood Urea Nitrogen 21 mg/dL (7-20); Calcium 9.3 mg/dL (8.6-10.8); Carbon Dioxide 33 mEq/L (19-29); Chloride 103 mEq/L (98-109); Glucose 107 mg/dL (70-99); Osmolality,Calculated 297 (280-300); Potassium 4.1 mEq/L (3.5-4.5); Sodium 142 mEq/L (136-145); eGFR For African Americans > 60 (> 60); eGFR For Non-African Americans > 60 (> 60)
[2016-08-14] MEDS: Budesonide/Formoterol 160/4.5 MDI IH SCH ×2 (08:08→20:12)
--- NOTE | 2016-08-14 08:43 | Cardiology Progress Note ---
Date of Encounter: 08/14/16 Time of Encounter: 09:00 Assessment and Plan (1) Atrial fibrillation with rapid ventricular response Current Visit: Yes Status: Acute Per Cardiology: History of paroxysmal atrial fibrillation. Started on Sotalol 80mg PO BID 2015. Now in afib with RVR again in setting of upper respiratory infection and COPD exacerbation-- remains atrial fibrillation with rate control with addition of calcium channel balbina. TSH ok. Mg and K 2.0 and 4.0. Echo shows EF preserved at 60%, mild dilated right ventricle with normal function. Negative stress test 11/2014. On sotalol 80 mg by mouth twice a day. Now back on previous home dose of Cardizem CD 180 mg by mouth daily, current systolic blood pressure in the 140s - 170's. Discussed and reviewed with Dr. Salcedo, will increase sotalol to 120 mg by mouth every 12 hours. Regarding long-term anticoagulation, remains on Coumadin with current INR 3.2. Monitors at home and managed by PCP. Denies any current active bleeding or blood loss. She reports no INRs less than 2.0 over the past one month. (2) Chronic anticoagulation Current Visit: Yes Status: Chronic Per Cardiology: On Coumadin with INR = 3.2. (3) TANO (acute kidney injury) Current Visit: Yes Status: Acute Per Cardiology: Appears intermittent hx of CKD stage 3a, now with mild TANO, creat up to 1.24-- suspect related to recent diarrhea. Now off ACEI. On PO lasix. Kidney function improved. (4) Essential hypertension Current Visit: Yes Status: Chronic Per Cardiology: Systolic blood pressure elevated. Kidney function normalized. Lisinopril now resumed by primary service. Continue to monitor closely. Discussion w patient/family: The assessment and plan as outlined above was discussed with the patient and who expressed understanding and agreement. All questions were answered. Thank you for involving us in the care of your patient. Please call with any questions. Subjective Principal diagnosis: Afib RVR Interval history: Patient reports now with cough with yellowish sputum. She reports diarrhea is been intermittent over the past few weeks that she attributes to taking antibiotics. She reports she still continues to feel palpitations with shortness of breath. Denies any chest pain. Objective Vital Signs, Last 4 Hours Temp Pulse Resp BP Pulse Ox 08/14/16 07:38 97.4 F L 66 18 148/72 98 General: Conversant, No Apparent Distress HEENT: Atraumatic, Normocephaly Cardiac: No Murmur, Other (Irregular irregular) Lungs: Other (Clear to all lobes) Neuro: Alert and responsive, No focal deficits noted Skin: No rashes noted on visualized skin Extremities: Other (Trace pitting edema to bilateral lower extremities) Results 08/13/16 01:04 08/14/16 03:41 Lab Results Laboratory Tests 08/12/16 08/12/16 08/13/16 13:30 19:43 01:04 Troponin I 0.00 0.02 0.00 08/13/16 07:49 Troponin I 0.00 Active Medications Acetaminophen (Tylenol) 650 mg PO Q6HR PRN PRN Reason: Mild Pain (1-3) Stop: 02/11/17 18:43 Last Admin: 08/13/16 21:23 Dose: 650 mg Budesonide/Formoterol Fumarate (Symbicort) 1 puff IH BIDR [facility] Stop: 02/11/17 22:01 Last Admin: 08/14/16 08:08 Dose: Not Given Diltiazem HCl (Cardizem Cd) 180 mg PO DAILY [facility] Stop: 02/12/17 09:16 Last Admin: 08/13/16 09:40 Dose: 180 mg Doxycycline Hyclate (Doxycycline) 100 mg PO BID [facility] Stop: 02/11/17 21:01 Last Admin: 08/13/16 21:23 Dose: 100 mg Ferrous Sulfate (Ferrous Sulfate) 325 mg PO DAILY [facility] Stop: 02/12/17 09:01 Last Admin: 08/13/16 09:40 Dose: 325 mg Furosemide (Lasix) 40 mg PO DAILY [facility] Stop: 02/12/17 09:01 Last Admin: 08/13/16 09:40 Dose: 40 mg Hydralazine HCl (Hydralazine) 10 mg IVP Q6HR PRN PRN Reason: SBP>170 or DBP>110 Stop: 02/12/17 19:09 Last Admin: 08/13/16 21:24 Dose: 10 mg Montelukast Sodium (Singulair) 10 mg PO DAILY [facility] Stop: 02/12/17 09:01 Last Admin: 08/13/16 09:40 Dose: 10 mg Naloxone HCl (Narcan) 0.4 mg IVP Q2MIN PRN PRN Reason: Opioid Reversal Stop: 02/11/17 18:43 Pharmacy Profile Note (Patient Taking Own Medication) 0 each PO DAILY [facility] Stop: 02/12/17 09:01 Last Admin: 08/13/16 09:40 Dose: Not Given Potassium Chloride (Potassium Chloride) 20 meq PO DAILY [facility] Stop: 02/12/17 09:01 Last Admin: 08/13/16 09:41 Dose: 20 meq Ropinirole HCl (Requip) 2 mg PO HS [facility] Stop: 02/11/17 21:01 Last Admin: 08/13/16 21:24 Dose: 2 mg Sotalol HCl (Betapace) 80 mg PO Q12H [facility] Stop: 02/11/17 18:46 Last Admin: 08/14/16 06:47 Dose: 80 mg Tiotropium [place] (Spiriva) 18 mcg IH [facility] PRN Reason: Protocol Stop: 02/11/17 21:01 Last Admin: 08/13/16 19:38 Dose: 18 mcg Warfarin Sodium (Coumadin) 3 mg PO QPM [facility] Stop: 02/12/17 18:01 Last Admin: 08/13/16 18:29 Dose: 3 mg - Imaging and Cardiology Echo: report reviewed - EKG Interpretation EKG results cardiology: other (Atrial fibrillation in the 70s to 80s on telemetry) Consult Discharge Plan - Plan Referrals: Lisbet Ray CNP [Primary Care Provider] - 08/18/16 1:30 pm ( )
[2016-08-14] MEDS: (Dexlansoprazole [Dexilant] 60 MG) PO SCH (09:19)
[2016-08-14] MEDS: Doxycycline 100 MG CAPSULE PO SCH ×2 (09:32→22:09)
[2016-08-14] MEDS: Furosemide 40 MG TABLET PO SCH (09:32)
[2016-08-14] MEDS: Diltiazem CD (24hr) 180 MG CAPSULE PO SCH (09:32)
--- NOTE | 2016-08-14 11:48 | Internal Med Progress Note ---
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, INR 2, will increase Coumadin to 5mg daily; Echo shows moderate LVH, RV dilatation; (2) Essential hypertension Current Visit: Yes Status: Chronic Assessment and plan: resume home meds, BP noted to be high; (3) COPD (chronic obstructive pulmonary disease) Current Visit: Yes Status: Chronic Assessment and plan: not in acute exacerbation, but has been started on Doxycycline recently, will complete the course; PRN bronchodilators and supplemental O2; on home O2 at 3L/ min; Qualifiers: COPD type: emphysema Emphysema type: unspecified Qualified Code(s): J43.9 - Emphysema, unspecified (4) Morbid obesity Current Visit: Yes Status: Chronic Qualifiers: Obesity type: due to excess calories Qualified Code(s): E66.01 - Morbid ( severe) obesity due to excess calories (5) Diastolic CHF Current Visit: Yes Status: Chronic Assessment and plan: continue diuretic and ACEI; Qualifiers: Congestive heart failure chronicity: chronic Qualified Code(s): I50.32 - Chronic diastolic (congestive) heart failure (6) TANO (acute kidney injury) Current Visit: Yes Status: Acute Assessment and plan: resolved; - Subjective Interval history: Reports intermittent diarrhea for the last month and attributes it to several antibiotics use; none since admission; no chest pain, dyspnea, palpitations; does continue to have fluctuating HR between 50s-100s; possible plan for cardioversion in am; - Constitutional Vitals: Temp Pulse Resp BP Pulse Ox 97.7 F 100 18 165/85 94 L 08/14/16 11:22 08/14/16 11:22 08/14/16 11:22 08/14/16 11:22 08/14/16 11:22 General appearance: Present: A&O X 3, morbidly obese, answers questions appropriately - Respiratory Respiratory exam: Present: CTAB. Absent: accessory muscle use, rales, rhonchi, wheezes - Cardiovascular Cardiovascular exam: Present: irregular rhythm, +S1, +S2. Absent: diastolic murmur, gallop, rubs, systolic murmur - GI/Abdominal GI/Abdominal exam: Present: normal bowel sounds, soft, no peritoneal signs. Absent: distended, tenderness Internal Medicine: Result - Labs CBC & Chem 7: 08/13/16 01:04 08/14/16 03:41 Labs: BMP 08/14/16 03:41 Sodium 142 Potassium 4.1 Chloride 103 Carbon Dioxide 33 H BUN 21 H Creatinine 0.77 Glucose 107 H Calcium 9.3 - ABG Interpretation ABG results: PT/INR, D-dimer PT 36.1 Seconds (9.4-12.1) H 08/12/16 13:30 Consult Discharge Plan - Plan Referrals: Lisbet Ray CNP [Primary Care Provider] - 08/18/16 1:30 pm ( )
--- NOTE | 2016-08-14 12:25 | Electrocardiograph Report ---
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
[2016-08-14 12:37] LABS: Prothrombin Time 22.2 Seconds (9.4-12.1)
--- NOTE | 2016-08-14 13:30 | Event Note ---
Date of Encounter: 08/14/16 Time of Encounter: 13:15 - Cardiology Event Note Most recent ECG shows QT/QTC 358/418ms. Will monitor closely with increased dose of sotalol. Discussed and reviewed with Dr. Salcedo with plans for possible DC cardioversion Sunday if does not convert. Patient aware and agrees with plan.
[2016-08-14] MEDS: *HR* Warfarin 3 MG TABLET PO SCH (18:31)
[2016-08-14] MEDS ORDERED: *HR* Warfarin 3 MG TABLET PO SCH (18:43)
[2016-08-14] MEDS ORDERED: *HR* Warfarin 2 MG TABLET PO ONE (18:51)
[2016-08-14] MEDS: Tiotropium 18 MCG inhalation IH SCH (20:05)
[2016-08-14] MEDS: rOPINIRole 1 MG TABLET PO SCH (22:09)
[2016-08-15] MEDS: Budesonide/Formoterol 160/4.5 MDI IH SCH ×2 (07:40→20:09)
[2016-08-15] MEDS: Diltiazem CD (24hr) 180 MG CAPSULE PO SCH (09:31)
[2016-08-15] MEDS: Doxycycline 100 MG CAPSULE PO SCH ×2 (09:32→22:11)
[2016-08-15] MEDS: Furosemide 40 MG TABLET PO SCH (09:32)
[2016-08-15] MEDS: (Dexlansoprazole [Dexilant] 60 MG) PO SCH (09:38)
--- NOTE | 2016-08-15 11:37 | Cardiology Progress Note ---
Date of Encounter: 08/15/16 Time of Encounter: 11:35 Assessment and Plan (1) Atrial fibrillation with rapid ventricular response Current Visit: Yes Status: Acute Per Cardiology: History of paroxysmal atrial fibrillation. Started on Sotalol 80mg PO BID 07/2016. Recurrent afib with RVR in the setting of URI and COPD. Sotalol increased to 120 mg BID 08/14/16. s/p 2 doses. EKG pending this am. EKG 08/14/16- QT/QTc 358/418, QRS 82, HR 103 bpm. Limited echo shows EF preserved at 60%, mild dilated right ventricle with normal function. Negative stress test 11/2014. Regarding long-term anticoagulation, remains on Coumadin with current INR 3.2. Monitors at home and managed by PCP. Denies any current active bleeding or blood loss. No INRs less than 2.0 over the past one month. Plan for DC cardioversion in am if she continues to be in atrial fibrillation. (2) Chronic anticoagulation Current Visit: Yes Status: Chronic Per Cardiology: On Coumadin with INR = 3.2. (3) Diastolic CHF Current Visit: Yes Status: Chronic Chronic diastolic CHF. EF 60%. Mild pedal edema over past two days. I will give extra dose of lasix x 1 today. Low sodium diet. Instructed to keep legs elevated. Qualifiers: Congestive heart failure chronicity: chronic Qualified Code(s): I50.32 - Chronic diastolic (congestive) heart failure Discussion w patient/family: The assessment and plan as outlined above was discussed with the patient and/or family members who expressed understanding and agreement. All questions were answered. Thank you for involving us in the care of your patient. Please call with any questions. Subjective Principal diagnosis: Afib RVR Interval history: No new complaints. Denies chest pain or SOB. Notices pedal and ankle edema bilaterally when sitting up. Objective Vital Signs Temp Pulse Resp BP Pulse Ox 08/15/16 07:29 97.9 F 80 17 128/75 100 08/15/16 04:42 98.1 F 93 20 152/73 95 08/14/16 23:59 97.8 F 78 18 144/78 96 08/14/16 21:17 98.5 F 78 18 164/89 96 08/14/16 20:05 20 98 08/14/16 15:26 97.7 F 88 18 140/77 95 Intake and Output 08/14/16 08/15/16 08/15/16 23:59 07:59 15:59 Intake Total 480 / 480 480 / 480 Output Total 500 / 500 Balance -20 / -20 480 / 480 Intake: Oral 480 / 480 480 / 480 Output: Urine 500 / 500 Other: Meal Breakfast Percent of Meal Consumed 100% Weight 139.706 kg Patient Weight 08/15/16 23:59 Weight 139.706 kg General: Conversant, No Apparent Distress HEENT: Atraumatic, Normocephaly, Mucus Membranes Moist Neck: No JVD, Normal carotid pulses Cardiac: Other (Irregularly irregular. ) Lungs: Normal Breath Sounds, No Wheeze, Rales, Rhonchi Neuro: Alert and responsive, No focal deficits noted Abdomen: Soft, Non-Tender Skin: No rashes noted on visualized skin Musculoskeletal: No Chest Wall Tenderness Extremities: No Clubbing, No Cyanosis, No Edema, Normal Pulses Results 08/13/16 01:04 08/14/16 03:41 - EKG Interpretation EKG results cardiology: other (24 hour telemetry shows atrial fibrillation with AVg HR 91 bpm.) Consult Discharge Plan - Plan Referrals: Lisbet Ray CNP [Primary Care Provider] - 08/18/16 1:30 pm ( )
--- NOTE | 2016-08-15 14:26 | Electrocardiograph Report ---
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
--- NOTE | 2016-08-15 14:47 | Electrocardiograph Report ---
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
[2016-08-15 14:52] LABS: INR 1.8
--- NOTE | 2016-08-15 14:52 | Electrocardiograph Report ---
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
--- NOTE | 2016-08-15 14:55 | Electrocardiograph Report ---
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
[2016-08-15] MEDS ORDERED: Warfarin perPT PO PRN (18:00)
--- NOTE | 2016-08-15 18:19 | Internal Med Progress Note ---
Date of Encounter: 08/15/16 Time of Encounter: 12:00 - Assessment and plan (1) DVT prophylaxis Current Visit: Yes Status: Acute Assessment and plan: Currently anticoagulated on Coumadin. Does not require any additional pharmacotherapy (2) Atrial fibrillation with rapid ventricular response Current Visit: Yes Status: Acute Assessment and plan: Monitor on telemetry. Continue with sotalol. Follow-up with cardiology. Plan for electrical cardioversion tomorrow. Nothing by mouth after midnight. (3) COPD (chronic obstructive pulmonary disease) Current Visit: Yes Status: Chronic Assessment and plan: not in acute exacerbation, but has been started on Doxycycline recently, will complete the course; PRN bronchodilators and supplemental O2; on home O2 at 3L/ min; Qualifiers: COPD type: emphysema Emphysema type: unspecified Qualified Code(s): J43.9 - Emphysema, unspecified (4) Chronic anticoagulation Current Visit: Yes Status: Chronic Assessment and plan: Continue with Coumadin. Check daily INR and adjust dose. (5) Diastolic CHF Current Visit: Yes Status: Chronic Assessment and plan: continue diuretic and ACEI; daily weights. Fluid restriction. Qualifiers: Congestive heart failure chronicity: chronic Qualified Code(s): I50.32 - Chronic diastolic (congestive) heart failure (6) Essential hypertension Current Visit: Yes Status: Chronic Assessment and plan: resume home meds, BP noted to be high; - Subjective Interval history: Patient reports palpitations have improved since yesterday, currently mild to absent at the last, sometimes she feels rapid irregular heart rate, no associated chest pain or shortness of breath. - Constitutional Vitals: Temp Pulse Resp BP Pulse Ox 98.2 F 91 17 123/65 97 08/15/16 15:39 08/15/16 15:39 08/15/16 15:39 08/15/16 15:39 08/15/16 15:39 General appearance: Present: A&O X 3, morbidly obese, answers questions appropriately - Respiratory Respiratory exam: Present: CTAB. Absent: accessory muscle use, rales, rhonchi, wheezes - Cardiovascular Cardiovascular exam: Present: irregular rhythm, +S1, +S2. Absent: diastolic murmur, gallop, rubs, systolic murmur - GI/Abdominal GI/Abdominal exam: Present: normal bowel sounds, soft, no peritoneal signs. Absent: distended, tenderness - Extremities Exam Extremities exam: Present: warm, radial pulses palpable and symetrical. Absent : calf tenderness, cyanotic, pedal edema - Neurological Exam Neurological exam: Present: CN II-XII intact, oriented X3, no focal deficits. Absent: pronater drift, facial droop, speech deficit - Skin Skin exam: Present: dry, intact Internal Medicine: Result - Labs CBC & Chem 7: 08/13/16 01:04 08/14/16 03:41 - ABG Interpretation ABG results: PT/INR, D-dimer PT 20.0 Seconds (9.4-12.1) H 08/15/16 14:30 Consult Discharge Plan - Plan Referrals: Lisbet Ray CNP [Primary Care Provider] - 08/18/16 1:30 pm ( )
[2016-08-15] MEDS: Tiotropium 18 MCG inhalation IH SCH (20:09)
[2016-08-15] MEDS: rOPINIRole 1 MG TABLET PO SCH (22:11)
[2016-08-15] MEDS: *HR* Warfarin 5 MG TABLET PO SCH (22:16)
[2016-08-16 06:39] LABS: Basophils % 0.4 %; Eosinophils # 0.1 K/mcL (0.0-0.6); Hematocrit 37.9 % (35.3-44.9); Hemoglobin 11.1 g/dL (11.5-15.4); Immature Granulocytes % 0.8 % (0-4); Lymphocytes # 1.7 K/mcL (0.6-4.6); Lymphocytes % 23.5 %; Mean Corpuscular HGB Conc 29.3 g/dL (31.6-35.5); Mean Corpuscular Hemoglobin 25.1 pg (28.0-33.3); Mean Corpuscular Volume 85.6 fL (83.0-100.0); Mean Platelet Volume 12.3 fL (9.4-12.4); Monocytes # 0.9 K/mcL (0.0-1.3); Neutrophils # 4.5 K/mcL (1.6-8.9); Platelet Count 190 K/mcL (140-400); Red Blood Count 4.43 M/mcL (3.82-4.97); Red Cell Distribution Width 17.7 % (11.5-14.5); Segmented Neutrophils % 62.3 %
[2016-08-16 06:40] LABS: INR 1.8; Prothrombin Time 19.5 Seconds (9.4-12.1)
[2016-08-16 06:55] LABS: BUN/Creatinine Ratio 34 (6-26); Blood Urea Nitrogen 25 mg/dL (7-20); Calcium 9.4 mg/dL (8.6-10.8); Carbon Dioxide 29 mEq/L (19-29); Chloride 104 mEq/L (98-109); Glucose 100 mg/dL (70-99); Osmolality,Calculated 300 (280-300); Potassium 4.1 mEq/L (3.5-4.5); Sodium 143 mEq/L (136-145); eGFR For African Americans > 60 (> 60); eGFR For Non-African Americans > 60 (> 60)
[2016-08-16] MEDS: Budesonide/Formoterol 160/4.5 MDI IH SCH ×2 (07:52→20:22)
[2016-08-16] MEDS: Doxycycline 100 MG CAPSULE PO SCH ×2 (09:21→21:53)
[2016-08-16] MEDS: Furosemide 40 MG TABLET PO SCH (09:23)
[2016-08-16] MEDS: Diltiazem CD (24hr) 180 MG CAPSULE PO SCH (09:26)
--- NOTE | 2016-08-16 11:22 | Event Note ---
Date of Encounter: 08/16/16 Time of Encounter: 08:30 - Cardiology Event Note Mrs. Guevara is awaiting DC CV today. Remains in atrial fibrillation. INR yesterday and today were 1.8. She will also require ZOILA. I discussed with patient and and she is agreeable to proceed. Pt has BLE ankle edema since admission. We will give extra dose this afternoon.
--- NOTE | 2016-08-16 13:22 | Electrocardiograph Report ---
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
[2016-08-16] MEDS ORDERED: 0.9 % Sodium Chloride 500 ML IVC ONE (13:33)
[2016-08-16] MEDS ORDERED: Tetracaine/Benzocaine/Butamben 200MG/SPRAY (100SPY/BOT) MM ONE (13:33)
[2016-08-16] MEDS: *HR* Midazolam HCl 5 MG/5 ML VIAL IVP PRN ×3 (14:50→15:00)
[2016-08-16] MEDS: *HR* FentaNYL (PF) 100 MCG/2 ML VIAL IVP PRN ×4 (14:50→15:07)
--- NOTE | 2016-08-16 15:56 | ECHO - Doppler Report ---
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 No evidence of LA or PEPE thrombus on ZOILA. No patient complications. Medication Given: Time Medication Dose Units Route 14:50 Versed 1 mg IV 14:50 Fentanyl 25 mcg IV 14:55 Versed 1 mg IV 14:55 Fentanyl 25 mcg IV 15:00 Versed 2 mg IV 15:00 Fentanyl 25 mcg IV 15:07 Fentanyl 25 mcg IV Findings: Study Quality * Technically adequate exam. ECG Findings * Atrial fibrillation Left Atrium * No thrombus present. * LA appendage is normal in appearance without thrombus. * The LA appendage flow velocity is normal. Procedure Summary: After explaining the risks, benefits, and alternatives of the procedure to the patient in detail and answering all questions to satisfaction, an informed consent was obtained in writing. The patient was NPO for the six hours prior to the procedure. The patient denied dysphagia, odynophagia, and loose teeth. The patient was monitored with periodic automated blood pressures and continuous pulse oximetry and telemetry. Continuous oxygen was administered by NH. The patient was anesthetized and complete suppression of the gag reflex was obtained. The patient was then placed in the left lateral decubitus position. IV sedation was administered. Once adequate sedation was achieved, a well-lubricated anteflexed multipoint intraesophageal echocardiographic probe was inserted into the midline posterior oropharynx. Gentle pressure was applied as the patient swallowed and the esophagus was intubated without difficulty. The scope was advanced to the mid esophagus without encountering resistance. Images were obtained from the mid and upper esophagus. Images from the gastric globe were not obtained. The scope was then slowly withdrawn as the patient was continually suctioned. The patient tolerated the procedure well. After adequate sedation was achieved, cardioversion in the AP approach was performed. Normal sinus rhythm was restored after 2 attempt(s). The patient was monitored for the standard 30 minutes post procedure. Patient was able to move all 4 extremities after the procedure. Attempt # 1 150 joules Attempt # 2 200 joules Complications: None History: Hypertension Years 20 Packs 1.5 Family History of CAD Congestive Heart Failure Previous Echo08/13/2016 BP / 88 Updated by Taniya Cedillo on 08/16/2016 3:47:34 PM electronically signed on 08/16/2016 3:49:57 PM with status of Final Wall Motion Brown: 1=Normal, 2=Hypokinesis, 3=Akinesis, 4=Dyskinesis, 5=Aneurysmal, 6=Hyperkinetic, X=Not Visualized (Blank)=Missing
[2016-08-16] MEDS ORDERED: Furosemide 40 MG TABLET PO ONE (18:51)
--- NOTE | 2016-08-16 19:16 | Internal Med Progress Note ---
Date of Encounter: 08/16/16 Time of Encounter: 13:00 - Assessment and plan (1) DVT prophylaxis Current Visit: Yes Status: Acute Assessment and plan: Currently anticoagulated on Coumadin. Does not require any additional pharmacotherapy (2) Atrial fibrillation with rapid ventricular response Current Visit: Yes Status: Acute Assessment and plan: Monitor on telemetry. Follow-up with cardiology. Status post electrical cardioversion today. Appreciate cardiology recommendations. Will monitor on telemetry while taking the increased sotalol dose. Plan for possible discharge tomorrow. Check EKG in the morning. (3) COPD (chronic obstructive pulmonary disease) Current Visit: Yes Status: Chronic Assessment and plan: not in acute exacerbation, but has been started on Doxycycline recently, will complete the course; PRN bronchodilators and supplemental O2; on home O2 at 3L/ min; Qualifiers: COPD type: emphysema Emphysema type: unspecified Qualified Code(s): J43.9 - Emphysema, unspecified (4) Chronic anticoagulation Current Visit: Yes Status: Chronic Assessment and plan: Continue with Coumadin. Check daily INR and adjust dose. INR today is 1.8. We will give 5 mg. (5) Diastolic CHF Current Visit: Yes Status: Chronic Assessment and plan: continue diuretic and ACEI; daily weights. Fluid restriction. Qualifiers: Congestive heart failure chronicity: chronic Qualified Code(s): I50.32 - Chronic diastolic (congestive) heart failure (6) Essential hypertension Current Visit: Yes Status: Chronic Assessment and plan: resume home meds, BP noted to be high; - Subjective Interval history: Patient reports palpitations have worse since yesterday, feels rapid irregular heart rate, no associated chest pain or shortness of breath. - Constitutional Vitals: Temp Pulse Resp BP Pulse Ox 97.6 F 98 20 125/88 96 08/16/16 14:28 08/16/16 14:28 08/16/16 14:28 08/16/16 14:28 08/16/16 14:28 General appearance: Present: A&O X 3, morbidly obese, answers questions appropriately - Eye Eye exam: Present: PERRL, conjuntiva pink, sclera anicteric Pupils: Present: PERRL - Respiratory Respiratory exam: Present: CTAB. Absent: accessory muscle use, rales, rhonchi, wheezes - Cardiovascular Cardiovascular exam: Present: irregular rhythm, +S1, +S2. Absent: diastolic murmur, gallop, rubs, systolic murmur - GI/Abdominal GI/Abdominal exam: Present: normal bowel sounds, soft, no peritoneal signs. Absent: distended, tenderness - Extremities Exam Extremities exam: Present: warm, radial pulses palpable and symetrical. Absent : calf tenderness, cyanotic, pedal edema - Skin Skin exam: Present: dry, intact Internal Medicine: Result - Labs CBC & Chem 7: 08/16/16 06:03 08/16/16 06:03 Labs: Short CBC 08/16/16 Range/Units 06:03 WBC 7.2 (4.3-11.1) K/mcL Hgb 11.1 L (11.5-15.4) g/dL Hct 37.9 (35.3-44.9) % Plt Count 190 (140-400) K/mcL Neutrophils # 4.5 (1.6-8.9) K/mcL BMP 08/16/16 06:03 Sodium 143 Potassium 4.1 Chloride 104 Carbon Dioxide 29 BUN 25 H Creatinine 0.74 Glucose 100 H Calcium 9.4 - ABG Interpretation ABG results: PT/INR, D-dimer PT 19.5 Seconds (9.4-12.1) H 08/16/16 06:03 Consult Discharge Plan - Plan Referrals: Lisbet Ray CNP [Primary Care Provider] - 08/18/16 1:30 pm ( )
[2016-08-16] MEDS: *HR* Warfarin 5 MG TABLET PO SCH (19:27)
[2016-08-16] MEDS: Tiotropium 18 MCG inhalation IH SCH (20:22)
[2016-08-16] MEDS: rOPINIRole 1 MG TABLET PO SCH (21:53)
[2016-08-17] MEDS ORDERED: Furosemide 40 MG TABLET PO ONE (03:00)
[2016-08-17] MEDS ORDERED: Petrolatum, white 28.35 GM TUBE TP PRN (06:00)
[2016-08-17] MEDS ORDERED: Petrolatum, White OINT.PACK TP PRN (06:04)
[2016-08-17 06:25] LABS: INR 1.8; Prothrombin Time 19.4 Seconds (9.4-12.1)
[2016-08-17] MEDS: Budesonide/Formoterol 160/4.5 MDI IH SCH (07:35)
[2016-08-17] MEDS: Furosemide 40 MG TABLET PO SCH (08:02)
[2016-08-17] MEDS: Diltiazem CD (24hr) 180 MG CAPSULE PO SCH (08:02)
[2016-08-17] MEDS: Doxycycline 100 MG CAPSULE PO SCH (08:02)
--- NOTE | 2016-08-17 08:28 | Cardiology Progress Note ---
Date of Encounter: 08/17/16 Time of Encounter: 08:22 Assessment and Plan (1) Atrial fibrillation with rapid ventricular response Current Visit: Yes Status: Acute Per Cardiology: History of paroxysmal atrial fibrillation. Started on Sotalol 80mg PO BID 07/2016. Recurrent afib with RVR in the setting of URI and COPD. Sotalol increased to 120 mg BID 08/14/16. s/p 2 doses. S/p ZOILA with successful DCCV x2, 08/16/16. Remains in NSR. EKG 08/14/16- QT/QTc 358/418, QRS 82, HR 103 bpm. EKG 08/15/16-QT/QTC 368/460, QRS 87 EKG 08/16/16- QT/QTc 339/408, QRS 86, HR 116 BPM EKG 08/17/16- QT/QTc 433/453, QRS 95, HR 69 bpm Limited echo shows EF preserved at 60%, mild dilated right ventricle with normal function. Negative stress test 11/2014. Regarding long-term anticoagulation, remains on Coumadin follows with [facility]. Lovenox started for sub therapeutic INR s/p cardioversion. Ok for discharge today from cardiology standpoint. Call with questions. F/u in 2 weeks with cardiology. (2) Chronic anticoagulation Current Visit: Yes Status: Chronic Per Cardiology: On Coumadin with INR = 1.8 (3) Diastolic CHF Current Visit: Yes Status: Chronic Chronic diastolic CHF. EF 60%. Mild pedal edema over past two days improved with oral lasix. Recommeded to take extra lasix 40 mg this evening at home. Low sodium diet. Instructed to keep legs elevated. Qualifiers: Congestive heart failure chronicity: chronic Qualified Code(s): I50.32 - Chronic diastolic (congestive) heart failure Discussion w patient/family: The assessment and plan as outlined above was discussed with the patient and/or family members who expressed understanding and agreement. All questions were answered. Thank you for involving us in the care of your patient. Please call with any questions. Subjective Principal diagnosis: Afib RVR Interval history: No new complaints. Converted to NSR yesterday after DCCV x2. Objective Vital Signs, Last 4 Hours Temp Pulse Resp BP Pulse Ox 08/17/16 07:07 97.8 F 69 18 108/65 99 08/17/16 05:15 98.3 F 65 18 111/73 98 General: Conversant, No Apparent Distress HEENT: Atraumatic, Normocephaly, Mucus Membranes Moist Neck: No JVD, Normal carotid pulses Cardiac: Reg Rate and Rhythm, Normal S1 and S2, No Murmur Lungs: Normal Breath Sounds, No Wheeze, Rales, Rhonchi Neuro: Alert and responsive, No focal deficits noted Abdomen: Soft, Non-Tender Skin: No rashes noted on visualized skin Musculoskeletal: No Chest Wall Tenderness Extremities: No Clubbing, No Cyanosis, Normal Pulses, Other (1+ ankle edema) Results 08/16/16 06:03 08/16/16 06:03 Lab Results 08/17/16 06:02 INR 1.8 - EKG Interpretation EKG results cardiology: personally reviewed Consult Discharge Plan - Plan Referrals: Lisbet Ray CNP [Primary Care Provider] - 08/18/16 1:30 pm ( )
--- NOTE | 2016-08-17 14:16 | Electrocardiograph Report ---
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
--- NOTE | 2016-08-17 14:17 | Electrocardiograph Report ---
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
--- NOTE | 2016-08-17 15:00 | Discharge Summary ---
Date of Encounter: 08/17/16 Time of Encounter: 14:42 - Discharge Diagnosis (1) Atrial fibrillation with rapid ventricular response Priority: Primary Status: Acute (2) COPD (chronic obstructive pulmonary disease) Priority: Secondary Status: Chronic Qualifiers: COPD type: emphysema Emphysema type: unspecified Qualified Code(s): J43.9 - Emphysema, unspecified (3) Chronic anticoagulation Priority: Secondary Status: Chronic (4) Diastolic CHF Priority: Secondary Status: Chronic Qualifiers: Congestive heart failure chronicity: chronic Qualified Code(s): I50.32 - Chronic diastolic (congestive) heart failure (5) Essential hypertension Priority: Secondary Status: Chronic (6) Atrial fibrillation Priority: Secondary Status: Acute Qualifiers: Atrial fibrillation type: paroxysmal Qualified Code(s): I48.0 - Paroxysmal atrial fibrillation (7) Morbid obesity Priority: Secondary Status: Chronic Qualifiers: Obesity type: due to excess calories Qualified Code(s): E66.01 - Morbid ( severe) obesity due to excess calories - Discharge Medications Prescriptions: Enoxaparin [Lovenox] 140 mg SQ Q12HR #5 syringe Sotalol [Betapace] 120 mg PO Q12HR #60 tablet Diltiazem CD (24hr) [Cardizem CD] 180 mg PO DAILY #30 cap.er.24h Home Medications: Alendronate Sodium [Fosamax] 70 mg PO WE 10/28/15 [History] Ascorbate Calcium [Vitamin C] 500 mg PO DAILY 10/28/15 [History] Calcium Carbonate/Vitamin D3 [Calcium 500-Vit D3 400 Tablet] 1 tab PO BID [History] Cholecalciferol (Vitamin D3) [Vitamin D3] 1,000 unit PO DAILY 10/28/15 [History] Cyanocobalamin (Vitamin B-12) [Vitamin B-12] 100 mcg PO DAILY 10/28/15 [History] Fluticasone/Salmeterol [Advair 250-50 Diskus] 1 puff IH BID 10/28/15 [History] Furosemide [Lasix] 40 mg PO DAILY 10/28/15 [History] Lisinopril [Zestril] 10 mg PO DAILY 10/28/15 [History] Potassium Chloride [K-Tab ER] 20 meq PO DAILY 10/28/15 [History] Ropinirole HCl [Requip] 2 mg PO HS 10/28/15 [History] Tiotropium [Spiriva] 18 mcg IH HS 10/28/15 [History] Warfarin [Coumadin] 5 mg PO QPM 10/28/15 [History] Dexlansoprazole [Dexilant] 60 mg PO DAILY 07/03/16 [History] Ferrous Sulfate [Iron] 325 mg PO DAILY 07/03/16 [History] Montelukast [Singulair] 10 mg PO DAILY #30 tablet 07/09/16 [Rx] Doxycycline 100 mg PO BID 08/12/16 [History] Diltiazem CD (24hr) [Cardizem CD] 180 mg PO DAILY #30 cap.er.24h 08/17/16 [Rx] Enoxaparin [Lovenox] 140 mg SQ Q12HR #5 syringe 08/17/16 [Rx] Sotalol [Betapace] 120 mg PO Q12HR #60 tablet 08/17/16 [Rx] Allergies/Adverse Reactions: Allergies albuterol Allergy (Verified 08/12/16 16:27) Difficulty Breathing aspirin [ASA] Allergy (Verified 08/12/16 13:24) Difficulty Breathing Penicillins Allergy (Verified 08/12/16 13:24) Hives Sulfa (Sulfonamide Antibiotics) Allergy (Verified 08/12/16 16:27) Rash Procedures/tests Complete & Pending: Procedures Performed prior 72 hours Category Date Time Status CL Cardioversion [CL] Routine Coding Coordinator 08/16/16 00:01 Stop Req ECG 12 lead ECG [ECG] Routine Y 08/15/16 08:28 Completed ECG 12 lead ECG [ECG] Routine Y 08/16/16 14:16 Completed ECG 12 lead ECG [ECG] Routine Y 08/16/16 15:12 Completed EKG [ECG 12 lead ECG] [ECG] AM 0600 Y 08/16/16 06:00 Completed EKG [ECG 12 lead ECG] [ECG] Stat Y 08/15/16 11:43 Completed EKG [ECG 12 lead ECG] [ECG] Stat Y 08/17/16 07:38 Completed EV catina guided cardioversion Routine Y 08/16/16 08:45 Completed Date of admission: 08/14/16 15:15 Primary care physician: Lisbet Ray, - Patient Status Disposition: Home, Self-Care Condition: Fair Functional capacity at discharge: independent ambulation Overall status at discharge: patient is back to baseline - Discharge Instructions Instructions: Atrial Fibrillation (DC), Chest Pain (DC), Chronic Obstructive Pulmonary Disease (DC) Follow Up With: Lisbet Ray CNP [Primary Care Provider] - 08/18/16 1:30 pm ( ) Abraham White DO [Partnered Physician] - 08/30/16 4:15 pm Forms: ED Satisfaction Letter - Diet and Activity Activity: increase activity as tolerated Diet: advance to your usual diet, low fat, low cholesterol Hospital course: Ms. Guevara is a 65 year old female with past medical history significant for paroxysmal atrial fibrillation came to the hospital for palpitations. She was found to be in atrial fibrillation with rapid ventricular response. She was admitted to the medical service. Cardiology was consulted. She was continued on anticoagulation with Coumadin. Her Betapace was increased and she was monitored on telemetry. She remained in atrial fibrillation and yesterday she had a successful cardioversion. She tolerated the procedure well. She was monitored overnight and she remained in normal sinus rhythm. She is currently asymptomatic and based back to baseline and will be discharged home. - Time Spent with Patient Total time spent providing and/or coordinating discharge services: - Constitutional Vitals: Temp Pulse Resp BP Pulse Ox 98.0 F 63 16 126/63 99 08/17/16 11:24 08/17/16 11:24 08/17/16 11:24 08/17/16 11:24 08/17/16 11:24 General appearance: Present: A&O X 3, morbidly obese, answers questions appropriately - Respiratory Respiratory exam: Present: CTAB. Absent: accessory muscle use, rales, rhonchi, wheezes - Cardiovascular Cardiovascular exam: Present: RRR, +S1, +S2. Absent: diastolic murmur, gallop, rubs, systolic murmur - GI/Abdominal GI/Abdominal exam: Present: normal bowel sounds, soft, no peritoneal signs. Absent: distended, tenderness
--- NOTE | 2016-08-17 16:14 | Electrocardiograph Report ---
[facility] Test Date: 2016-08-17 Pat Name: Alyssa Guevara Department: 112 Room: 2A34 Gender: F Journalism Teacher: : [id number] Requested By: Nolan Christie Order Number: [id number] Reading MD: Chandler Salcedo MD Measurements Intervals [place] Rate: 69 P: 53 MA: 169 QRS: 37 QRSD: 95 T: 28 QT: 433 QTc: 453 Interpretive Statements SINUS RHYTHM Electronically Signed On 08-17-16 16:13:19 EST by Chandler Salcedo MD
[2016-08-17 16:24] VITALS: BP 114/67
[2016-08-17] MEDS ORDERED: *HR* Enoxaparin 150 MG/ML SYRINGE SQ SCH (18:00)
[2016-08-17] MEDS: *HR* Warfarin 5 MG TABLET PO SCH (18:14)
== END 2016-08-17 18:36 | disposition home or self-care (01) | DRG 309 ==
LOC: EMEROO 13:10 → 2ANU 13:10 → SUATTDRO 16:46 → 2ANU 18:05 → SUATTDRO 08-14 15:15
PROVIDERS: ADMIT Internal Medicine; ATTEND Internal Medicine

== ENCOUNTER 2016-09-09 09:40 | Inpatient (IN) ==
--- NOTE | 2016-09-09 09:59 | Emergency Department Note ---
Disposition Clinical Impression: Bilateral lower extremity edema, Heart failure with preserved ejection fraction Dyspnea Qualifiers: Dyspnea type: unspecified Qualified Code(s): R06.00 - Dyspnea, unspecified Chest pain Qualifiers: Chest pain type: unspecified Qualified Code(s): R07.9 - Chest pain, unspecified Disposition: Admitted As Inpatient Condition: Fair Referrals: Lisbet Ray SUBWAY OPERATOR [Primary Care Provider] - Forms: ED Satisfaction Letter General Adult HPI - General Chief complaint: ED Chest Pain Stated complaint: SOB, Chest pressure Time Seen by Provider: 09/09/16 09:45 Source: patient Mode of arrival: wheelchair Limitations: no limitations Nursing Notes Reviewed: Yes Vital Signs Reviewed: Yes - History of Present Illness HPI Narrative: 65-year-old female who reports that she has a long history of congestive heart failure. She was recently admitted to the hospital due to A. fib RVR with heart failure. She was discharged on the . On the she was cardioverted with a ZOILA. She did have documented lower extremity edema prior to discharge. She reports over the last 3 days she has had significant worsening of her lower extremity edema's to the point where she can no longer put her shoes on. She states she normally takes 40 mg of Lasix daily and she is now up to 120 mg of Lasix and is not having an increase in her urine output. She does have a history of COPD and does wear 3 L of oxygen at all times. She also admits to having a substernal chest pressure with some radiation to the left arm. She does not have a history of stents or a recent heart catheterization. It is worse with exertion and better with rest. Prior treatment included increasing her Lasix dose Radiation: non-radiation Pain Severity: moderate Pain Scale: 3 Associated symptoms: Reports: denies other symptoms Treatments Prior to Arrival: none - Related Data Home Medications Medication Instructions Recorded Confirmed Alendronate Sodium [Fosamax] 70 mg PO WE 10/28/15 08/12/16 Ascorbate Calcium [Vitamin C] 500 mg PO DAILY 10/28/15 08/12/16 Calcium Carbonate/Vitamin D3 1 tab PO BID 10/28/15 08/12/16 [Calcium 500-Vit D3 400 Tablet] Cholecalciferol (Vitamin D3) 1,000 unit PO DAILY 10/28/15 08/12/16 [Vitamin D3] Cyanocobalamin (Vitamin B-12) 100 mcg PO DAILY 10/28/15 08/12/16 [Vitamin B-12] Fluticasone/Salmeterol [Advair 1 puff IH BID 10/28/15 08/12/16 250-50 Diskus] Furosemide [Lasix] 40 mg PO DAILY 10/28/15 08/12/16 Lisinopril [Zestril] 10 mg PO DAILY 10/28/15 08/12/16 Potassium Chloride [K-Tab ER] 20 meq PO DAILY 10/28/15 08/12/16 Ropinirole HCl [Requip] 2 mg PO HS 10/28/15 08/12/16 Tiotropium [Spiriva] 18 mcg IH HS 10/28/15 08/12/16 Warfarin [Coumadin] 5 mg PO QPM 10/28/15 08/12/16 Dexlansoprazole [Dexilant] 60 mg PO DAILY 07/03/16 08/12/16 Ferrous Sulfate [Iron] 325 mg PO DAILY 07/03/16 08/12/16 Doxycycline 100 mg PO BID 08/12/16 08/12/16 Previous Rx's Medication Instructions Recorded Montelukast [Singulair] 10 mg PO DAILY #30 tablet 07/09/16 Diltiazem CD (24hr) [Cardizem CD] 180 mg PO DAILY #30 cap.er.24h 08/17/16 Enoxaparin [Lovenox] 140 mg SQ Q12HR #5 syringe 08/17/16 Sotalol [Betapace] 120 mg PO Q12HR #60 tablet 08/17/16 Allergies Allergy/AdvReac Type Severity Reaction Status Date / Time albuterol Allergy Difficulty Verified 08/12/16 16:27 Breathing aspirin [ASA] Allergy Difficulty Verified 08/12/16 13:24 Breathing Penicillins Allergy Hives Verified 08/12/16 13:24 Sulfa (Sulfonamide Allergy Rash Verified 08/12/16 16:27 Antibiotics) All systems ED: reviewed and negative except as stated. Constitutional: Denies: fever Eyes: Denies: vision change ENT ED: Denies: throat pain Cardiovascular: Reports: chest pain Respiratory: Reports: dyspnea. Denies: cough, wheezes Gastrointestinal: Denies: abdominal pain, nausea, vomiting, diarrhea Genitourinary: Reports: other (only urinating 2-3 times a day.) Integumentary: Denies: rash Endocrine: Reports: fatigue Past Medical History - Past Medical History Medical history: Reports: asthma, atrial fibrillation, CHF, COPD, hypertension Surgical history: Reports: cholecystectomy, hysterectomy Psychiatric history: Reports: no psych history GLACING MACHINE TENDER history: Reports: no GLACING MACHINE TENDER history - Social History Smoking Status: Former smoker Smokeless Tobacco Status: No Alcohol use: Reports: none Drug use: Reports: none Physical Exam - General Limitations: no limitations General appearance: alert - Head Head exam: atraumatic - Eye Eye exam: Present: normal appearance, PERRL, EOMI - ENT ENT exam: normal exam, normal oropharynx - Neck Neck exam: Present: normal inspection - Chest Chest inspection: Present: normal inspection - Respiratory Respiratory exam: Present: normal lung sounds bilaterally. Absent: respiratory distress - Cardiovascular Cardiovascular exam: Present: regular rate, normal rhythm - Abdominal Exam Abdominal exam: Present: soft, Non-Tender - Extremities Exam Extremities exam: Present: pedal edema (3+ pitting bilateral) - Back Exam Back exam: Present: normal inspection - Neurological Exam Neurological exam: Present: alert, oriented X3 - Psychiatric Psychiatric exam: Present: normal affect, normal mood - Skin Skin exam: Present: warm, dry Course Course Narrative: Clinically she appears to be having a exacerbation of her congestive heart failure due to her increased dyspnea with lower extremity edema. She does not have any visible JVD but body habitus may mask this. Lungs are clear to auscultation but again body habitus makes this difficult. We will check a renal function C this is the cause of the decreased efficacy of her Lasix. She will likely be admitted due to her chest discomfort and failure of oral Lasix. EKG is unchanged from prior - Reevaluation(s) Reevaluation #1: Troponin negative. BNP not elevated. Will give lasix due to significant LE edema. Will also give nitropaste due to chest discomfort. Will treat as if she has CHF exacerbation because clinically she is fluid overloaded and she has a hx of preserved EF CHF. Will also admit due to chest discomfort. Vital Signs Temperature 97.8 F 09/09/16 09:41 Pulse Rate 64 09/09/16 09:41 Respiratory Rate 18 09/09/16 09:41 Blood Pressure 175/76 09/09/16 09:41 O2 Sat by Pulse Oximetry 91 L 09/09/16 09:41 Temperature 97.8 F 09/09/16 09:41 Pulse Rate 57 09/09/16 10:48 Respiratory Rate 20 09/09/16 10:48 Blood Pressure 168/76 09/09/16 10:48 O2 Sat by Pulse Oximetry 100 09/09/16 10:48 Oxygen Delivery Oxygen Delivery Nasal Cannula Medical Decision Making - Medical Records Medical records reviewed: Yes I reviewed the patient's medical records. - Lab Data Lab results reviewed: Yes I reviewed the patient's lab results. Result diagrams: 09/09/16 10:00 09/09/16 10:26 Lab Results 09/09/16 09/09/16 09/09/16 Range/Units 10:00 10:00 10:00 WBC 5.5 (4.3-11.1) K/mcL RBC 4.13 (3.82-4.97) M/mcL Hgb 10.6 L (11.5-15.4) g/dL Hct 36.6 (35.3-44.9) % MCV 88.6 (83.0-100.0) fL MCH 25.7 L (28.0-33.3) pg MCHC 29.0 L (31.6-35.5) g/dL RDW 17.1 H (11.5-14.5) % Plt Count 173 (140-400) K/mcL MPV 12.3 (9.4-12.4) fL Immature Gran % 0.4 (0-4) % Seg Neutrophils % 61.7 % Lymphocytes % 23.7 % Monocytes % 12.0 % Eosinophils % 1.8 % Basophils % 0.4 % Neutrophils # 3.4 (1.6-8.9) K/mcL Lymphocytes # 1.3 (0.6-4.6) K/mcL Monocytes # 0.7 (0.0-1.3) K/mcL Eosinophils # 0.1 (0.0-0.6) K/mcL Basophils # 0.0 (0.0-0.2) K/mcL PT (9.4-12.1) Seconds INR APTT (26.0-36.0) Seconds Sodium (136-145) mEq/L Potassium (3.5-4.5) mEq/L Chloride (98-109) mEq/L Carbon Dioxide (19-29) mEq/L BUN (7-20) mg/dL Creatinine (0.57-1.11) mg/dL Est GFR ( Amer) (> 60) Est GFR (Non-Af Amer) (> 60) BUN/Creatinine Ratio (6-26) Glucose (70-99) mg/dL Calculated Osmolality (280-300) Calcium (8.6-10.8) mg/dL Troponin I (0-0.03) ng/mL B-Natriuretic Peptide 75 (0-100) pg/mL Specimen Rejected Hemolyzed 09/09/16 09/09/16 09/09/16 Range/Units 10:26 10:26 10:26 WBC (4.3-11.1) K/mcL RBC (3.82-4.97) M/mcL Hgb (11.5-15.4) g/dL Hct (35.3-44.9) % MCV (83.0-100.0) fL MCH (28.0-33.3) pg MCHC (31.6-35.5) g/dL RDW (11.5-14.5) % Plt Count (140-400) K/mcL MPV (9.4-12.4) fL Immature Gran % (0-4) % Seg Neutrophils % % Lymphocytes % % Monocytes % % Eosinophils % % Basophils % % Neutrophils # (1.6-8.9) K/mcL Lymphocytes # (0.6-4.6) K/mcL Monocytes # (0.0-1.3) K/mcL Eosinophils # (0.0-0.6) K/mcL Basophils # (0.0-0.2) K/mcL PT 25.0 H (9.4-12.1) Seconds INR 2.3 APTT 36.3 H (26.0-36.0) Seconds Sodium 144 (136-145) mEq/L Potassium 4.1 (3.5-4.5) mEq/L Chloride 101 (98-109) mEq/L Carbon Dioxide 34 H (19-29) mEq/L BUN 28 H (7-20) mg/dL Creatinine 0.83 (0.57-1.11) mg/dL Est GFR ( Amer) > 60 (> 60) Est GFR (Non-Af Amer) > 60 (> 60) BUN/Creatinine Ratio 34 H (6-26) Glucose 92 (70-99) mg/dL Calculated Osmolality 303 H (280-300) Calcium 9.7 (8.6-10.8) mg/dL Troponin I 0.01 (0-0.03) ng/mL B-Natriuretic Peptide (0-100) pg/mL Specimen Rejected - Radiology Data Radiology results reviewed: Yes I reviewed the patient's radiology results. - EKG Data EKG #1 EKG attestation: Yes I reviewed and interpreted this EKG. EKG shows normal: sinus rhythm (rate 63) Rate: normal Rhythm: NSR When compared to previous EKG there are: no significant changes Interpretation: no acute changes Attestation Statement - Attestation Attestation: Patient was seen with resident physician. I reviewed the history, physical, assessment and plan, and agree with the findings. I also personally evaluated this patient and had [id number] time with this patient. 65-year-old female presents to the emergency department with chief complaint of leg swelling and increased shortness of breath and chest pain. Patient has a history of CHF has been increasing her Lasix for the last week or so, but says that she is progressively getting worse and not better. She was recently admitted and discharged from the hospital for similar symptoms although at that time she also had A. fib that required cardioversion. She states that the chest pain is intermittent lasting from just a few seconds to close to a minute. It is a pressure sensation in the middle of her chest radiating to her left arm. On examination ENT is normal heart is regular rhythm and rate lungs were clear. Abdomen is soft obese and nontender. Extremities 2-3+ pitting edema bilaterally and symmetric. There is no posterior Tenderness of the legs. neurologically the patient's intact. Workup did not reveal any significant cause for her symptoms. EKG was essentially unremarkable. She is given IV Lasix and some nitro paste while in the emergency department and the hospitalist was notified of need for admission. We will admit for chest pain and shortness of breath. Agree with resident physician assessment and plan.
[2016-09-09 10:10] LABS: Basophils % 0.4 %; Eosinophils # 0.1 K/mcL (0.0-0.6); Eosinophils % 1.8 %; Hematocrit 36.6 % (35.3-44.9); Hemoglobin 10.6 g/dL (11.5-15.4); Immature Granulocytes % 0.4 % (0-4); Lymphocytes # 1.3 K/mcL (0.6-4.6); Lymphocytes % 23.7 %; Mean Corpuscular Hemoglobin 25.7 pg (28.0-33.3); Mean Corpuscular Volume 88.6 fL (83.0-100.0); Mean Platelet Volume 12.3 fL (9.4-12.4); Monocytes # 0.7 K/mcL (0.0-1.3); Neutrophils # 3.4 K/mcL (1.6-8.9); Platelet Count 173 K/mcL (140-400); Red Blood Count 4.13 M/mcL (3.82-4.97); Red Cell Distribution Width 17.1 % (11.5-14.5); Segmented Neutrophils % 61.7 %
[2016-09-09 10:37] LABS: INR 2.3
[2016-09-09 10:40] LABS: Activated Partial Thrombo Time 36.3 Seconds (26.0-36.0)
[2016-09-09 10:44] LABS: BUN/Creatinine Ratio 34 (6-26); Blood Urea Nitrogen 28 mg/dL (7-20); Calcium 9.7 mg/dL (8.6-10.8); Carbon Dioxide 34 mEq/L (19-29); Chloride 101 mEq/L (98-109); Glucose 92 mg/dL (70-99); Osmolality,Calculated 303 (280-300); Potassium 4.1 mEq/L (3.5-4.5); Sodium 144 mEq/L (136-145); eGFR For African Americans > 60 (> 60); eGFR For Non-African Americans > 60 (> 60)
[2016-09-09] MEDS ORDERED: Furosemide 40 MG/4 ML VIAL IVP ONE (10:56)
[2016-09-09] MEDS ORDERED: Nitroglycerin 1 INCH/GM PACKET TP ONE (10:57)
[2016-09-09] MEDS ORDERED: MOM Conc 10 ML UD.LIQ PO PRN (11:55)
[2016-09-09] MEDS ORDERED: *HR* HYDROcodone/Acet 5/325 mg TABLET PO PRN (11:55)
[2016-09-09] MEDS ORDERED: Acetaminophen 325 MG TABLET PO PRN (11:55)
[2016-09-09] MEDS ORDERED: Ondansetron 4 MG/2 ML VIAL IVP PRN (11:55)
[2016-09-09] MEDS ORDERED: Naloxone 0.4 MG/ML INJ IVP PRN (11:55)
[2016-09-09] MEDS ORDERED: Furosemide 40 MG/4 ML VIAL IVP SCH (12:15)
--- NOTE | 2016-09-09 12:41 | Internal Med History&Physical ---
<Judy Moody - Last Filed: 09/09/16 13:22> Date of Encounter: 09/09/16 Time of Encounter: 11:31 Assessment and Plan (1) Chest pain Current visit: Yes Status: Acute Pt reports L chest pain that started last pm while she was sleeping. It was present when she awakened to go to the bathroom and lasted about 3 hours per her estimation. She described it as heaviness and denied change in her SOB, nausea, diaphoresis, or radiation of pain. Resolved now. EKG as above. Initial troponin 0.01 ng/dl in ED. She was not given ASA since it is a listed allergy. Serial troponins Continuous cardiac monitoring Monitor labs Qualifiers: Chest pain type: unspecified Qualified Code(s): R07.9 - Chest pain, unspecified (2) Bilateral lower extremity edema Current visit: Yes Status: Acute Inpt stay in Aug for A-fib RVR that was converted with ZOILA/DCCV. echo at that time showed LVEF 60%, normal systolic function, mod LVH. Pt noticed the day before she was discharged (08/17/16) that her feet were swelling. Over the last 3 days it has increased despite increasing her Lasix [id number] daily, and she cannot wear shoes. Pt reports SOB/dyspnea with any exertion, can't walk more than 10 feet without becoming SOB and having to rest. Pt wears 3L 02 at home all the time, she has not had to increase. She received Lasix 40mg IV in the ED and has had increased urine output and states that she feels better. Chest xray shows cardiomegaly without overt failure and R mid lung subsegmental atelectasis. BNP 75 in ED. Dyspnea and Le swelling Most likely due to acute HF with preserved EF. However, we will check labs for anemia, protein in urine and albumin level as well, and treat her COPD. She has had multiple admissions in the past for the same reason. Lasix 40mg IV bid BLE dopplers Monitor labs: urine protein/creatinine, LFT. 1.5L fluid restriction diet Strict I and O Daily weight (3) Dyspnea Current visit: Yes Status: Acute Plan as above Ferritin, B12, Folate, Iron studies Qualifiers: Dyspnea type: dyspnea on exertion Qualified Code(s): R06.09 - Other forms of dyspnea (4) Acute heart failure with normal ejection fraction Current visit: Yes Status: Acute plan as above. (5) COPD (chronic obstructive pulmonary disease) Current visit: No Status: Chronic Poorly controlled COPD. Pt reports intermittent wheezing over the last week with increased use of her inhalers (spiriva, advair) to prevent exacerbation of symptoms. Lungs are diminished throughout with faint expiratory wheezing in posterior bases. Chest xray negative for infiltrates or pneumothorax. Pt denies increase in sputum or change in cough or fever. pt is allergic to albuterol. xopenex/atrovent q4hr Budesonide nebs bid continue home dose of singulair Qualifiers: COPD type: emphysema Emphysema type: unspecified Qualified Code(s): J43.9 - Emphysema, unspecified (6) Atrial fibrillation Current visit: No Status: Chronic hr is controlled. continue home dose of diltiazem and warfarin. Qualifiers: Atrial fibrillation type: paroxysmal Qualified Code(s): I48.0 - Paroxysmal atrial fibrillation (7) Anemia Current visit: Yes Status: Acute Hgb 10.6, Hct 36.6. ferritin low at 38 in the past. Pt is SOB, anemia cannot be ruled out as a cause. Pt takes iron supplements at home every day, labs last checked 02/18. She denies blood loss. Ferritin, B12, Folate, Iron studies. Qualifiers: Anemia type: iron deficiency Iron deficiency anemia type: unspecified iron deficiency Qualified Code(s): D50.9 - Iron deficiency anemia, unspecified (8) Morbid obesity with BMI of 50.0-59.9, adult Current visit: Yes Status: Acute bmi 55. f/u outpatient Internal Medicine - H&P: HPI Chief complaint: peripheral edema x3 days Admitted From: Home Plans for Post Hospital Care: Home History of present illness: Ms. Guevara is a 65 year old female with a history of REYNA, COPD with home 02, CHF , A-fib, HTN, and GERD, who presents to ED with peripheral edema and wheezing. She was inpt here and discharged on Aug 17, when she noticed that her feet were swelling. She states that she has not been able to get it under control and over the last 3 days has become so bad that she can't wear shoes. Pt also reports 1 week history of intermittent wheezing that is not normal for her. She has increased the use of her inhalers in an attempt to not have an exacerbation of her symptoms. Pt has increased her home dose of Lasix to 120mg po daily with little change in urine output or edema. +4 pitting edema to BLE and pt reports SOB with exertion and can't walk more than 10 feet. She is sleeping sitting up for the last 2 weeks. Past Med Surg Social Fam HX - Past Medical History Medical history: asthma, atrial fibrillation, CHF, COPD, hypertension Psychiatric history: no psych history - Past Surgical History Surgical History: cholecystectomy, hysterectomy - Social History Smoking Status: Former smoker Smokeless Tobacco Status: No Alcohol use: none Drug use: none - Family History Sister Living Status: Hx Family Cardiac Disorders: Yes Hx Family Respiratory Disorders: Yes (copd) Mother Adopted: No Family Member Ethnicity: Non- Twin of Family Member: Yes, Fraternal Living Status: Hx Family Cardiac Disorders: Yes (chf) Hx Family Respiratory Disorders: No Hx Family Cancer: No Hx Family GI Disorders: No Hx Family Endocrine Disorder: No Hx Family Neuromuscular Disorders: No Hx Family Neurologic Disorders: No Hx Family HEENT Disorders: Yes (tumor in rt ear benign at age 60) Hx Family Autoimmune Disorders: No Father Adopted: No Family Member Ethnicity: Non- Twin of Family Member: Yes, Fraternal Living Status: Hx Family Cardiac Disorders: Yes Hx Family Respiratory Disorders: Yes (COPD) Hx Family Cancer: No Hx Family GI Disorders: No Hx Family Endocrine Disorder: No Hx Family Neuromuscular Disorders: No Hx Family Neurologic Disorders: No Hx Family HEENT Disorders: No Hx Family Autoimmune Disorders: No Internal Medicine - H&P: Meds Alendronate Sodium [Fosamax] 70 mg PO WE 10/28/15 [History] Ascorbate Calcium [Vitamin C] 500 mg PO DAILY 10/28/15 [History] Calcium Carbonate/Vitamin D3 [Calcium 500-Vit D3 400 Tablet] 1 tab PO BID [History] Cholecalciferol (Vitamin D3) [Vitamin D3] 1,000 unit PO DAILY 10/28/15 [History] Cyanocobalamin (Vitamin B-12) [Vitamin B-12] 100 mcg PO DAILY 10/28/15 [History] Fluticasone/Salmeterol [Advair 250-50 Diskus] 1 puff IH BID 10/28/15 [History] Furosemide [Lasix] 40 mg PO DAILY 10/28/15 [History] Lisinopril [Zestril] 10 mg PO DAILY 10/28/15 [History] Potassium Chloride [K-Tab ER] 20 meq PO DAILY 10/28/15 [History] Ropinirole HCl [Requip] 2 mg PO HS 10/28/15 [History] Tiotropium [Spiriva] 18 mcg IH HS 10/28/15 [History] Warfarin [Coumadin] 5 mg PO QPM 10/28/15 [History] Dexlansoprazole [Dexilant] 60 mg PO DAILY 07/03/16 [History] Ferrous Sulfate [Iron] 325 mg PO DAILY 07/03/16 [History] Montelukast [Singulair] 10 mg PO DAILY #30 tablet 07/09/16 [Rx] Diltiazem CD (24hr) [Cardizem CD] 180 mg PO DAILY #30 cap.er.24h 08/17/16 [Rx] Sotalol [Betapace] 120 mg PO Q12HR #60 tablet 08/17/16 [Rx] Acetaminophen/Diphenhydramine [Acetaminophen Pm Caplet] 2 tab PO HS 09/09/16 [ History] Allergies albuterol Allergy (Verified 08/12/16 16:27) Difficulty Breathing aspirin [ASA] Allergy (Verified 08/12/16 13:24) Difficulty Breathing Penicillins Allergy (Verified 08/12/16 13:24) Hives Sulfa (Sulfonamide Antibiotics) Allergy (Verified 08/12/16 16:27) Rash All Systems PM: A 10-system review of systems was performed and is negative for pertinent findings except as documented above in the HPI. - Constitutional Constitutional: no chills, no fever(s), no falls, no night sweats, no weakness - EENT Eyes: no change in vision - Cardiovascular Cardiovascular ROS IM: chest pain, dyspnea on exertion, edema, orthopnea - Respiratory Respiratory: wheezing, no cough, no chest congestion, no excessive phlegm production - Gastrointestinal Gastrointestinal: diarrhea, nausea, vomiting - Constitutional Vitals: Temp Pulse Resp BP Pulse Ox 97.7 F 52 16 167/67 96 09/09/16 11:58 09/09/16 11:58 09/09/16 11:58 09/09/16 11:58 09/09/16 11:58 General appearance: Present: cooperative, A&O X 3, pleasant, obese - ENT ENT exam: Present: mucous membranes moist, normal exam - Neck Neck exam general surgery: Absent: lymphadenopathy, tenderness - Respiratory Respiratory exam: Present: decreased breath sounds, wheezes. Absent: respiratory distress Additional comments: lungs diminished in post, faint expiratory wheezing noted in post bases. - Cardiovascular Cardiovascular exam: Present: +S1, +S2. Absent: diastolic murmur, systolic murmur - GI/Abdominal GI/Abdominal exam: Present: normal bowel sounds, soft. Absent: tenderness - Extremities Exam Extremities exam: Present: pedal edema, warm. Absent: calf tenderness, cyanotic , tenderness Additional comments: Pt has +4 pitting edema to BLE from knees to ankles. - Neurological Exam Neurological exam: Present: alert, oriented X3, no focal deficits Internal Med - H&P Results - Labs CBC & Chem 7: 09/09/16 10:00 09/09/16 10:26 - EKG Data Prior EKG available for review: yes When compared to previous EKG: there is no significant change Interpretation IM: normal EKG EKG comments: 09/09/16 12:45 SR Rate 63, LA int 179, QRS 83, QT 408, QTc 416 <Belen Riggins E - Last Filed: 09/09/16 15:01> Date of Encounter: 09/09/16 Internal Medicine - H&P: HPI History of present illness: Ms. Guevara is a 65 year old female All Systems PM: A 10-system review of systems was performed and is negative for pertinent findings except as documented above in the HPI. - Constitutional Vitals: Temp Pulse Resp BP Pulse Ox 97.7 F 52 16 167/67 96 09/09/16 11:58 09/09/16 11:58 09/09/16 11:58 09/09/16 11:58 09/09/16 11:58 Internal Med - H&P Results - Labs CBC & Chem 7: 09/09/16 10:00 09/09/16 10:26 Labs: Urine 09/09/16 Range/Units 13:30 Urine Color Yellow (Yellow) Urine Clarity Clear (Clear) Urine pH 6.0 (5.0-8.0) pH Units Ur Specific [place] 1.007 L (1.010-1.025) Urine Protein Negative (Neg-Trace) mg/dL Urine Glucose (UA) Normal (Normal) mg/dL - Attending Attestation I examined this patient and reviewed laboratory, imaging and all diagnostic data. My medical decision-making was reviewed with MANOLO Moody. I agree with the documented findings, disposition and treatment plan as described above. 65- year-old female with past medical history of COPD with home 02 3L NC, HF with preserved , A-fib on coumadin, HTN, and GERD, who presents to ED with progressive LE swelling and dyspnea. Examination reveals 2+ lower extremity edema up to the knees and decreased her and she bilaterally. Negative BNP. chest x-ray negative. EKG showed no acute changes. Received IV Lasix in the emergency department with significant improvement of her shortness of breath after multiple episodes of urination. Her symptoms and clinical findings are's nightly secondary to acute exacerbation of her heart failure with preserved ejection fraction. Will continue IV Lasix, fluid restriction, daily weight, beta blockers. Patient needs an outpatient sleep study to rule out sleep apnea due to her morbid obesity.
[2016-09-09 13:51] LABS: Creatinine,Urine 8 mg/dL
[2016-09-09 13:52] LABS: Bilirubin,Urine Negative (Negative); Blood,Urine Negative (Negative); Clarity,Urine Clear (Clear); Color,Urine Yellow (Yellow); Glucose,Urine (UA) Normal (Normal); Ketones,Urine Negative (Negative); Leukocyte Esterase,Urine Negative (Negative); Nitrite,Urine Negative (Negative); Protein,Urine Negative (Neg-Trace); Specific Gravity,Urine 1.007 (1.010-1.025); Urobilinogen,Urine Normal (Normal)
[2016-09-09] MEDS: Levalbuterol Neb 0.63 MG/3 ML IH SCH ×3 (15:51→20:20)
[2016-09-09] MEDS: Ipratropium Neb 0.5 MG NEBULIZER IH SCH ×2 (16:01→20:20)
[2016-09-09 16:39] LABS: % Iron Saturation 13 % (15-50); Iron 47 mcg/dL (50-170); Transferrin 261 mg/dL (180-382)
[2016-09-09 17:02] LABS: Ferritin 73 ng/ml (5-204)
[2016-09-09] MEDS: Furosemide 40 MG TABLET PO SCH (17:20)
[2016-09-09] MEDS ORDERED: *HR* Warfarin 5 MG TABLET PO SCH ×2 (18:00)
[2016-09-09] MEDS ORDERED: Warfarin perPT PO PRN (18:00)
[2016-09-09] MEDS: Budesonide Neb 0.25 MG/2 ML IH SCH (20:36)
[2016-09-09] MEDS ORDERED: Tiotropium 18 MCG inhalation IH SCH (21:00)
[2016-09-09] MEDS ORDERED: Budesonide/Formoterol 80/4.5 MDI IH SCH (21:00)
[2016-09-09] MEDS ORDERED: rOPINIRole 1 MG TABLET PO SCH ×2 (21:00)
[2016-09-10] MEDS: Ipratropium Neb 0.5 MG NEBULIZER IH SCH ×4 (01:25→11:28)
[2016-09-10 03:40] LABS: Hemoglobin 10.2 g/dL (11.5-15.4)
[2016-09-10 03:41] LABS: Basophils % 0.3 %; Eosinophils # 0.1 K/mcL (0.0-0.6); Eosinophils % 1.2 %; Hematocrit 34.4 % (35.3-44.9); Immature Granulocytes % 0.3 % (0-4); Lymphocytes # 1.1 K/mcL (0.6-4.6); Lymphocytes % 18.4 %; Mean Corpuscular HGB Conc 29.7 g/dL (31.6-35.5); Mean Corpuscular Hemoglobin 26.3 pg (28.0-33.3); Mean Corpuscular Volume 88.7 fL (83.0-100.0); Mean Platelet Volume 12.5 fL (9.4-12.4); Monocytes # 0.6 K/mcL (0.0-1.3); Monocytes % 10.3 %; Platelet Count 150 K/mcL (140-400); Red Blood Count 3.88 M/mcL (3.82-4.97); Segmented Neutrophils % 69.5 %
[2016-09-10] MEDS: Levalbuterol Neb 0.63 MG/3 ML IH SCH ×2 (03:50→08:40)
[2016-09-10 03:54] LABS: BUN/Creatinine Ratio 33 (6-26); Blood Urea Nitrogen 29 mg/dL (7-20); Calcium 9.3 mg/dL (8.6-10.8); Carbon Dioxide 35 mEq/L (19-29); Chloride 99 mEq/L (98-109); Glucose 120 mg/dL (70-99); Osmolality,Calculated 303 (280-300); Potassium 4.2 mEq/L (3.5-4.5); Sodium 143 mEq/L (136-145); eGFR For African Americans > 60 (> 60); eGFR For Non-African Americans > 60 (> 60)
[2016-09-10 03:59] LABS: Hypochromasia Present (Not Present)
[2016-09-10 04:00] LABS: Large Platelets Present (Not Present); Platelet Estimate Normal (Normal)
[2016-09-10 06:55] VITALS: BP 142/61
[2016-09-10] MEDS: Furosemide 40 MG TABLET PO SCH (07:38)
[2016-09-10] MEDS ORDERED: predniSONE 20 MG TABLET PO SCH (07:53)
--- NOTE | 2016-09-10 07:56 | Discharge Summary ---
Date of Encounter: 09/10/16 Time of Encounter: 07:53 - Discharge Diagnosis (1) Acute heart failure with normal ejection fraction Priority: Primary Status: Acute Comments: Acute diastolic CHF exacerbation in combination with acute COPD saturation possibly from acute viral bronchitis (2) COPD with exacerbation Priority: Primary Status: Acute Comments: Chronic respiratory failure (3) Bilateral lower extremity edema Priority: Primary Status: Acute (4) Atrial fibrillation Priority: Secondary Status: Acute Comments: Continue diltiazem and sotalol Qualifiers: Atrial fibrillation type: paroxysmal Qualified Code(s): I48.0 - Paroxysmal atrial fibrillation (5) GERD (gastroesophageal reflux disease) Priority: Secondary Status: Chronic Qualifiers: Esophagitis presence: without esophagitis Qualified Code(s): K21.9 - Gastro -esophageal reflux disease without esophagitis (6) Morbid obesity with BMI of 50.0-59.9, adult Priority: Secondary Status: Acute - Discharge Medications Prescriptions: PredniSONE 10 mg PO DAILY 8 Days Home Medications: Alendronate Sodium [Fosamax] 70 mg PO WE 10/28/15 [History] Ascorbate Calcium [Vitamin C] 500 mg PO DAILY 10/28/15 [History] Calcium Carbonate/Vitamin D3 [Calcium 500-Vit D3 400 Tablet] 1 tab PO BID [History] Cholecalciferol (Vitamin D3) [Vitamin D3] 1,000 unit PO DAILY 10/28/15 [History] Cyanocobalamin (Vitamin B-12) [Vitamin B-12] 100 mcg PO DAILY 10/28/15 [History] Fluticasone/Salmeterol [Advair 250-50 Diskus] 1 puff IH BID 10/28/15 [History] Lisinopril [Zestril] 10 mg PO DAILY 10/28/15 [History] Potassium Chloride [K-Tab ER] 20 meq PO DAILY 10/28/15 [History] Ropinirole HCl [Requip] 2 mg PO HS 10/28/15 [History] Tiotropium [Spiriva] 18 mcg IH HS 10/28/15 [History] Warfarin [Coumadin] 5 mg PO QPM 10/28/15 [History] Dexlansoprazole [Dexilant] 60 mg PO DAILY 07/03/16 [History] Ferrous Sulfate [Iron] 325 mg PO DAILY 07/03/16 [History] Montelukast [Singulair] 10 mg PO DAILY #30 tablet 07/09/16 [Rx] Diltiazem CD (24hr) [Cardizem CD] 180 mg PO DAILY #30 cap.er.24h 08/17/16 [Rx] Sotalol [Betapace] 120 mg PO Q12HR #60 tablet 08/17/16 [Rx] Acetaminophen/Diphenhydramine [Acetaminophen Pm Caplet] 2 tab PO HS 09/09/16 [ History] Furosemide [Lasix] 40 mg PO TID #0 09/10/16 [Rx] PredniSONE 10 mg PO DAILY 8 Days 09/10/16 [Rx] Allergies/Adverse Reactions: Allergies albuterol Allergy (Verified 08/12/16 16:27) Difficulty Breathing aspirin [ASA] Allergy (Verified 08/12/16 13:24) Difficulty Breathing Penicillins Allergy (Verified 08/12/16 13:24) Hives Sulfa (Sulfonamide Antibiotics) Allergy (Verified 08/12/16 16:27) Rash Date of admission: 09/09/16 15:53 Primary care physician: Lisbet Ray, - Patient Status Disposition: Home, Self-Care Condition: Fair Overall status at discharge: patient is back to baseline - Discharge Instructions Follow Up With: Lisbet Ray, INTERNAL SPECIALIST [Primary Care Provider] - Additional Instructions: Follow with primary care physician within the next 7 days. Continue Lasix 40 mg 3 times a day which may be decreased down to twice daily if compliant with fluid restriction. Completed prednisone taper. Use Mark wraps in both lower extremities and maintain limbs elevated during the night. - Diet and Activity Activity: increase activity as tolerated, wear oxygen at night Diet: low fat, low cholesterol Hospital course: Ms. Guevara is a 65 year old female with a history of REYNA, COPD with home 02 with 3 L of oxygen, CHF, A-fib on Coumadin, HTN, and GERD, who presents to ED with peripheral edema and wheezing. She was inpt here and discharged on Aug 17, when she noticed that her feet were swelling. She stated that she has not been able to get it under control and over the last 3 days has become so bad that she can' t wear shoes. Pt also reports 1 week history of intermittent wheezing that is not normal for her. She has increased the use of her inhalers in an attempt to not have an exacerbation of her symptoms. Pt has increased her home dose of Lasix to 40 mg mg po 3 times a day with little change in urine output or edema. +4 pitting edema to BLE was noted and she reported SOB with exertion, could not walk more than 10 feet. She was sleeping sitting up for the last 2 weeks. A venous duplex of the lower extremities was done showing no DVT. She was started on Lasix IV upon admission and inhalers. The patient's heart rate remained stable. Her leg edema has come down. The patient remained wheezing mainly on the right lung field. She is stable to be discharged home with a fluid restriction, Lasix and prednisone taper - Time Spent with Patient Total time spent providing and/or coordinating discharge services: Greater than 30 minutes (40 minutes) - Constitutional Vitals: Temp Pulse Resp BP Pulse Ox 97.9 F 60 16 142/61 97 09/10/16 06:54 09/10/16 06:54 09/10/16 06:54 09/10/16 06:54 09/10/16 06:54 General appearance: Present: cooperative, A&O X 3, pleasant, obese - Head Head exam: Present: atraumatic, normocephalic - Eye Eye exam: Present: PERRL, conjuntiva pink, sclera anicteric Pupils: Present: PERRL - Neck Neck exam general surgery: Present: supple, trachea midline. Absent: lymphadenopathy - Respiratory Respiratory exam: Present: CTAB, wheezes (Minimal wheezing mainly in the right lung field). Absent: accessory muscle use, rales, rhonchi - Cardiovascular Cardiovascular exam: Present: RRR, +S1, +S2. Absent: diastolic murmur, gallop, rubs, systolic murmur - GI/Abdominal GI/Abdominal exam: Present: normal bowel sounds, soft, no peritoneal signs. Absent: distended, tenderness - Extremities Exam Extremities exam: Present: pedal edema (+2 pitting edema both lower extremities) , warm, radial pulses palpable and symetrical. Absent: calf tenderness, cyanotic - Neurological Exam Neurological exam: Present: CN II-XII intact, oriented X3, no focal deficits. Absent: pronater drift, facial droop, speech deficit - Skin Skin exam: Present: dry, intact
[2016-09-10] MEDS: Budesonide Neb 0.25 MG/2 ML IH SCH (08:40)
[2016-09-10] MEDS ORDERED: Pantoprazole 40 MG VIAL IVP SCH (09:00)
[2016-09-10] MEDS ORDERED: Dexlansoprazole [Dexilant] 60 MG PO SCH (09:00)
[2016-09-10] MEDS ORDERED: CYANOCOBALAMIN 100 MCG PO SCH (09:00)
[2016-09-10] MEDS ORDERED: Ascorbic Acid 500 MG TABLET PO SCH (09:00)
[2016-09-10] MEDS ORDERED: Cholecalciferol (D-3) 1,000 UNIT TABLET PO SCH (09:00)
[2016-09-10] MEDS ORDERED: Diltiazem CD (24hr) 180 MG CAPSULE PO SCH (09:00)
--- NOTE | 2016-09-10 12:10 | Venous Imaging Report ---
LE Venous Duplex Patient Name:Alyssa Guevara Order Number:[id number] Procedure Date:09/09/2016 Date:9Age:65 yrs Gender:Female Location:[facility] Room #: 3B14 Train Dispatcher:Pamela Mckeon, RVT, RDCS Referring MD:Judy Moody CNP hydro electric station operator:Lisbet Ray, MANAGER SERVICE DESK Reading MD:Tian Cerda MD Primary Indications:EDEMA, LEG PAIN Secondary Indications: Impressions: Bilateral lower extremity: normal superficial and deep exam. Findings Venous Duplex Results: Right: Venous imaging of the lower extremity reveals full patency and normal vessel compressibility of the right distal iliac, right common femoral, right superficial femoral, right popliteal, right posterior tibial, right peroneal, right great saphenous and right lesser saphenous. Doppler signals in the evaluated veins were normal. Left: Venous imaging of the lower extremity reveals full patency and normal vessel compressibility of the left distal iliac, left common femoral, left superficial femoral, left popliteal, left posterior tibial, left peroneal, left great saphenous and left lesser saphenous. Doppler signals in the evaluated veins were normal. Prior Study: No prior study available for comparison. Lower Extremity Venous Duplex Side Vein Compress Spontaneous Flow Augment Diameter (cm) Depth (cm) Right Distal Iliac Normal Yes Phasic Yes Right Common Femoral Normal Yes Phasic Yes Right Superficial Femoral Normal Yes Phasic Yes Right Popliteal Normal Yes Phasic Yes Right Posterior Tibial Normal Yes Phasic Yes Right Peroneal Normal Yes Phasic Yes Right Great Saphenous Normal Yes Phasic Yes Right Lesser Saphenous Normal Yes Phasic Yes Left Distal Iliac Normal Yes Phasic Yes Left Common Femoral Normal Yes Phasic Yes Left Superficial Femoral Normal Yes Phasic Yes Left Popliteal Normal Yes Phasic Yes Left Posterior Tibial Normal Yes Phasic Yes Left Peroneal Normal Yes Phasic Yes Left Great Saphenous Normal Yes Phasic Yes Left Lesser Saphenous Normal Yes Phasic Yes Updated by Tian Cerda MD on 09/10/2016 12:04:21 PM electronically signed on 09/10/2016 12:04:48 PM with status of Final
--- NOTE | 2016-09-11 13:16 | Electrocardiograph Report ---
[address] [place] [address] Test Date: 2016-09-09 Pat Name: Alyssa Guevara Department: 104 Room: 3B14 Gender: F Ambulatory Technologist: : 1950 Requested By: Mario Morales Order Number: [id number] Reading MD: Aj Virk Measurements Intervals [place] Rate: 63 P: 61 MT: 179 QRS: 40 QRSD: 83 T: 26 QT: 408 QTc: 416 Interpretive Statements SINUS RHYTHM SEPTAL MYOCARDIAL INFARCTION, PROBABLY OLD Electronically Signed On 09-11-2016 13:14:58 EST by Aj Virk
[2016-09-13] MEDS ORDERED: FOSAMAX 70 MG PO SCH (11:58)
== END 2016-09-10 12:10 | disposition home or self-care (01) | DRG 292 ==
LOC: 3BNU 09:40 → EMEROO 09:40 → 3BNU 11:52 → SUATTDRO 15:53
PROVIDERS: ADMIT Internal Medicine; ATTEND Internal Medicine

== ENCOUNTER 2016-09-29 10:56 | Observation (INO) ==
--- NOTE | 2016-09-29 11:29 | Emergency Department Note ---
Disposition Clinical Impression: Acute exacerbation of chronic obstructive airways disease Disposition: Admitted As Inpatient Referrals: Unassigned,Provider [Non-Partnered Physician] - Forms: ED Satisfaction Letter SOB HPI - General Chief Complaint: ED Shortness of Breath/Dyspnea Stated Complaint: SOB, productive cough Time Seen by Provider: 09/29/16 11:05 Source: patient, EMS Limitations: no limitations Nursing Notes Reviewed: Yes Vital Signs Reviewed: Yes - History of Present Illness Pt Subjective Complaint: shortness of breath Onset (ago): week(s) (1) Severity: mild Consistency/Duration: constant, gradually worsening Improves with: oxygen, rest, bronchodilators Worsens with: lying flat, exertion Known history of: COPD, asthma Associated symptoms: Reports: sputum production Treatment prior to arrival: oxygen, bronchodilator Cough present: Yes Cough Description: Involuntary Cough Frequency: Intermittent Sputum production: Yes Sputum Amount: Small Sputum Color: Green - Related Data Home oxygen amount: 2 liters Home Medications Medication Instructions Recorded Confirmed Alendronate Sodium [Fosamax] 70 mg PO WE 10/28/15 09/14/16 Ascorbate Calcium [Vitamin C] 500 mg PO DAILY 10/28/15 09/14/16 Calcium Carbonate/Vitamin D3 1 tab PO BID 10/28/15 09/14/16 [Calcium 500-Vit D3 400 Tablet] Cholecalciferol (Vitamin D3) 1,000 unit PO DAILY 10/28/15 09/14/16 [Vitamin D3] Cyanocobalamin (Vitamin B-12) 100 mcg PO DAILY 10/28/15 09/14/16 [Vitamin B-12] Fluticasone/Salmeterol [Advair 1 puff IH BID 10/28/15 09/14/16 250-50 Diskus] Lisinopril [Zestril] 10 mg PO DAILY 10/28/15 09/14/16 Potassium Chloride [K-Tab ER] 20 meq PO DAILY 10/28/15 09/14/16 Ropinirole HCl [Requip] 2 mg PO HS 10/28/15 09/14/16 Tiotropium [Spiriva] 18 mcg IH HS 10/28/15 09/14/16 Warfarin [Coumadin] 5 mg PO QPM 10/28/15 09/14/16 Dexlansoprazole [Dexilant] 60 mg PO DAILY 07/03/16 09/14/16 Ferrous Sulfate [Iron] 325 mg PO DAILY 07/03/16 09/14/16 Acetaminophen/Diphenhydramine 2 tab PO HS 09/09/16 09/14/16 [Acetaminophen Pm Caplet] Albuterol Sulfate [Proventil Hfa] 90 mcg IH PRN PRN 09/14/16 09/14/16 Warfarin [Coumadin] 7.5 mg PO PER PKG DI 09/14/16 09/14/16 Previous Rx's Medication Instructions Recorded Montelukast [Singulair] 10 mg PO DAILY #30 tablet 07/09/16 Diltiazem CD (24hr) [Cardizem CD] 180 mg PO DAILY #30 cap.er.24h 08/17/16 Sotalol [Betapace] 120 mg PO Q12HR #60 tablet 08/17/16 Furosemide [Lasix] 40 mg PO TID #0 09/10/16 PredniSONE 10 mg PO DAILY 8 Days 09/10/16 Benzonatate [Tessalon] 200 mg PO TID PRN #30 capsule 09/25/16 GuaiFENesin ER [Mucinex] 1,200 mg PO BID #20 tbbp.12hr 09/25/16 Allergies Allergy/AdvReac Type Severity Reaction Status Date / Time albuterol Allergy Difficulty Verified 09/29/16 11:04 Breathing aspirin [ASA] Allergy Difficulty Verified 09/29/16 11:04 Breathing Penicillins Allergy Hives Verified 09/29/16 11:04 Sulfa (Sulfonamide Allergy Rash Verified 09/29/16 11:04 Antibiotics) All systems ED: reviewed and negative except as stated. Constitutional: Denies: fever, chills Respiratory: Reports: cough, dyspnea, wheezes Past Medical History - Past Medical History Source: patient, old records reviewed, nursing notes reviewed Medical history: Reports: asthma, atrial fibrillation, COPD, hypertension Surgical history: Reports: cholecystectomy, hysterectomy Psychiatric history: Reports: no psych history VP COMMUNICATIONS history: Reports: no VP COMMUNICATIONS history - Social History Smoking Status: Former smoker Smokeless Tobacco Status: No Alcohol use: Reports: none Drug use: Reports: none Physical Exam - General Limitations: no limitations General appearance: alert, in no apparent distress - Head Head exam: atraumatic, normocephalic, normal inspection - Eye Eye exam: Present: normal appearance, PERRL, EOMI - Expanded Eye Exam Pupils: Left: reactive - ENT ENT exam: normal exam, normal oropharynx, mucous membranes moist - Expanded ENT Exam External ear exam: Present: normal external inspection Mouth exam: Present: normal external inspection Teeth exam: Present: normal inspection Throat exam: Present: normal inspection - Neck Neck exam: Present: normal inspection, full ROM, trachea midline - Chest Chest inspection: Present: normal inspection, symmetric chest wall rise - Respiratory Respiratory exam: Present: wheezes (rhonchi bilat), prolonged expiratory phase. Absent: respiratory distress, accessory muscle use - Cardiovascular Cardiovascular exam: Present: regular rate, normal rhythm, normal heart sounds - Abdominal Exam Abdominal exam: Present: soft, Non-Tender. Absent: tenderness, distention, guarding, rebound, rigidity - Extremities Exam Extremities exam: Present: normal inspection, full ROM. Absent: tenderness, pedal edema - Expanded Upper Extremity Exam Shoulder exam: Present: normal inspection, full ROM Arm exam: Present: normal inspection, full ROM Elbow exam: Present: normal inspection, full ROM Forearm/Wrist exam: Present: normal inspection, full ROM Hand exam: Present: normal inspection, full ROM Vascular exam: Normal: capillary refill, radial pulse - Expanded Lower Extremity Exam Hip/Pelvis exam: Present: normal inspection, full ROM Upper leg exam: Present: normal inspection, full ROM Knee exam: Present: normal inspection, full ROM Lower leg exam: Present: normal inspection, full ROM Ankle exam: Present: normal inspection, full ROM Foot/toe exam: Present: normal inspection, full ROM Neurovascular/Tendon exam: Absent: motor deficit, sensory deficit, tendon deficit - Back Exam Back exam: Present: normal inspection, full ROM. Absent: tenderness - Neurological Exam Neurological exam: Present: alert, oriented X3 - Expanded Neurological Exam Patient oriented to: Present: person, place, time Coma Scale Eye Opening: Spontaneous Coma Scale Motor Response: Obeys Commands Coma Scale Verbal Response: Oriented Coma Scale Total: 15 - Psychiatric Psychiatric exam: Present: normal affect, normal mood - Skin Skin exam: Present: warm, dry, intact, normal color Course Vital Signs Temperature 98.5 F 09/29/16 10:59 Pulse Rate 64 09/29/16 10:59 Respiratory Rate 21 09/29/16 10:59 Blood Pressure 139/85 09/29/16 10:59 O2 Sat by Pulse Oximetry 98 09/29/16 10:59 Temperature 98.5 F 09/29/16 10:59 Pulse Rate 61 09/29/16 11:47 Respiratory Rate 18 09/29/16 11:53 Blood Pressure 147/67 09/29/16 11:47 O2 Sat by Pulse Oximetry 98 09/29/16 11:53 Oxygen Delivery Oxygen Delivery Nasal Cannula Shortness of Breath/Dyspnea - Differential Diagnosis Likely: acute exacerbation of chronic obstructive airways disease, congestive heart failure, pneumonia, asthma with exacerbation, pulmonary embolism, pneumothorax, arrhythmia - Medical Records Medical records reviewed: Yes I reviewed the patient's medical records. - Lab Data Lab results reviewed: Yes I reviewed the patient's lab results. Result diagrams: 09/29/16 12:28 09/29/16 12:28 Lab Results 09/29/16 09/29/16 09/29/16 Range/Units 12:28 12:28 12:28 WBC 6.8 (4.3-11.1) K/mcL RBC 4.08 (3.82-4.97) M/mcL Hgb 10.7 L (11.5-15.4) g/dL Hct 37.1 (35.3-44.9) % MCV 90.9 (83.0-100.0) fL MCH 26.2 L (28.0-33.3) pg MCHC 28.8 L (31.6-35.5) g/dL RDW 15.6 H (11.5-14.5) % Plt Count 146 (140-400) K/mcL MPV 12.6 H (9.4-12.4) fL Seg Neutrophils % 66.0 % Lymphocytes % 26.0 % Monocytes % 8.0 % Neutrophils # 4.5 (1.6-8.9) K/mcL Lymphocytes # 1.8 (0.6-4.6) K/mcL Monocytes # 0.5 (0.0-1.3) K/mcL Platelet Estimate Normal (Normal) Hypochromasia Present A (Not Present) Sodium 143 (136-145) mEq/L Potassium 4.6 H (3.5-4.5) mEq/L Chloride 101 (98-109) mEq/L Carbon Dioxide 34 H (19-29) mEq/L BUN 22 H (7-20) mg/dL Creatinine 0.74 (0.57-1.11) mg/dL Est GFR ( Amer) > 60 (> 60) Est GFR (Non-Af Amer) > 60 (> 60) BUN/Creatinine Ratio 30 H (6-26) Glucose 92 (70-99) mg/dL Calculated Osmolality 299 (280-300) Calcium 9.5 (8.6-10.8) mg/dL Troponin I 0.00 (0-0.03) ng/mL B-Natriuretic Peptide (0-100) pg/mL 09/29/16 Range/Units 12:28 WBC (4.3-11.1) K/mcL RBC (3.82-4.97) M/mcL Hgb (11.5-15.4) g/dL Hct (35.3-44.9) % MCV (83.0-100.0) fL MCH (28.0-33.3) pg MCHC (31.6-35.5) g/dL RDW (11.5-14.5) % Plt Count (140-400) K/mcL MPV (9.4-12.4) fL Seg Neutrophils % % Lymphocytes % % Monocytes % % Neutrophils # (1.6-8.9) K/mcL Lymphocytes # (0.6-4.6) K/mcL Monocytes # (0.0-1.3) K/mcL Platelet Estimate (Normal) Hypochromasia (Not Present) Sodium (136-145) mEq/L Potassium (3.5-4.5) mEq/L Chloride (98-109) mEq/L Carbon Dioxide (19-29) mEq/L BUN (7-20) mg/dL Creatinine (0.57-1.11) mg/dL Est GFR ( Amer) (> 60) Est GFR (Non-Af Amer) (> 60) BUN/Creatinine Ratio (6-26) Glucose (70-99) mg/dL Calculated Osmolality (280-300) Calcium (8.6-10.8) mg/dL Troponin I (0-0.03) ng/mL B-Natriuretic Peptide 88 (0-100) pg/mL - Radiology Data Radiology results reviewed: Yes I reviewed the patient's radiology results.
[2016-09-29] MEDS ORDERED: Ipratropium/Albuterol Neb 3 ML IH ONE (11:42)
[2016-09-29] MEDS ORDERED: methylPREDNISolone 125 MG/2 ML VIAL IV ONE (11:42)
[2016-09-29 12:35] LABS: Mean Platelet Volume 12.6 fL (9.4-12.4)
[2016-09-29 12:36] LABS: Hematocrit 37.1 % (35.3-44.9); Hemoglobin 10.7 g/dL (11.5-15.4); Mean Corpuscular HGB Conc 28.8 g/dL (31.6-35.5); Mean Corpuscular Hemoglobin 26.2 pg (28.0-33.3); Mean Corpuscular Volume 90.9 fL (83.0-100.0); Platelet Count 146 K/mcL (140-400); Red Blood Count 4.08 M/mcL (3.82-4.97); Red Cell Distribution Width 15.6 % (11.5-14.5)
[2016-09-29 12:46] LABS: BUN/Creatinine Ratio 30 (6-26); Blood Urea Nitrogen 22 mg/dL (7-20); Calcium 9.5 mg/dL (8.6-10.8); Carbon Dioxide 34 mEq/L (19-29); Chloride 101 mEq/L (98-109); Glucose 92 mg/dL (70-99); Osmolality,Calculated 299 (280-300); Potassium 4.6 mEq/L (3.5-4.5); Sodium 143 mEq/L (136-145); eGFR For African Americans > 60 (> 60); eGFR For Non-African Americans > 60 (> 60)
[2016-09-29 13:03] LABS: Lymphocytes # 1.8 K/mcL (0.6-4.6); Monocytes # 0.5 K/mcL (0.0-1.3); Neutrophils # 4.5 K/mcL (1.6-8.9)
[2016-09-29 13:04] LABS: Hypochromasia Present (Not Present); Platelet Estimate Normal (Normal)
[2016-09-29] MEDS ORDERED: Levofloxacin 750 MG/150 ML 750 MG/150 ML BAG IVPB ONE (13:23)
[2016-09-29] MEDS ORDERED: Naloxone 0.4 MG/ML INJ IVP PRN (16:19)
[2016-09-29] MEDS ORDERED: Acetaminophen 325 MG TABLET PO PRN (16:19)
[2016-09-29] MEDS ORDERED: Benzonatate 100 MG CAPSULE PO PRN (16:21)
[2016-09-29 16:55] LABS: INR 2.9; Prothrombin Time 32.1 Seconds (9.4-12.1)
--- NOTE | 2016-09-29 16:58 | Internal Med History&Physical ---
Date of Encounter: 09/29/16 Time of Encounter: 16:00 Assessment and Plan (1) Acute exacerbation of chronic obstructive airways disease Current visit: Yes Status: Acute 1 patient is experiencing increasing shortness of breath as well as cough over the past week. She does have scattered expiratory wheezes she is oxygen dependent. We will continue with oxygen titrated to maintain SPO2 greater than 92% 2 continue with IV Solu-Medrol to taper 3 bronchodilators 4 Levaquin (2) Heart failure with preserved ejection fraction Current visit: No Status: Acute 1 EF 60% we will continue with Lasix 2 monitor intake and output daily weights 3 low sodium diet (3) Atrial fibrillation Current visit: No Status: Chronic 1 presently in sinus rhythm. We will continue with sotalol as well as Cardizem 2 continue with Coumadin will check INR daily goal is 2-3 Qualifiers: Atrial fibrillation type: paroxysmal Qualified Code(s): I48.0 - Paroxysmal atrial fibrillation (4) Essential hypertension Current visit: No Status: Chronic 1 presently stable we will continue at home medications maintain systolic less than 140 (5) DVT prophylaxis Current visit: No Status: Acute Patient is on Coumadin Internal Medicine - H&P: HPI Chief complaint: SOB Admitted From: Emergency Dept Plans for Post Hospital Care: Home History of present illness: Ms. Guevara is a 65 year old female with past medical history of COPD oxygen dependent hypertension paroxysmal atrial fib. Patient has been experiencing increasing shortness of breath on exertion and a productive cough with brown green sputum for approximately 1 week. She is on continuous oxygen at home on 3 L nasal cannula and did use her rescue inhalers with no improvement. She denies any fevers chills nausea hemoptysis vomiting diarrhea abdominal pain or chest pain. She admits to orthopnea. She was seen on Sunday at an urgent care and was prescribe Mucinex. This a.m. shortness of breath worsened occurring even at rest. She was brought to the ER for evaluation. According to ER notes patient's initial lab work unremarkable with no leukocytosis troponin 0 BNP 88. Chest x-ray revealed increase in pulmonary vascular congestion with mild patchy perihilar and lower lobe airspace disease. EKG normal sinus rhythm with no ST-T wave abnormalities noted She was given duo nebs and IV steroids and Levaquin she has been admitted for further workup and evaluation. Presently patient is not in any respiratory distress. Upon auscultation she has scattered expiratory wheezes and a moist cough. She denies any chest pain or shortness of breath at this time. Presently she is hemodynamically stable. I reviewed this case with Dr Kaplan who agrees with plan Past Med Surg Social Fam HX - Past Medical History Medical history: asthma, atrial fibrillation, COPD, hypertension Psychiatric history: no psych history - Past Surgical History Surgical History: cholecystectomy, hysterectomy - Social History Smoking Status: Former smoker Smokeless Tobacco Status: No Alcohol use: none Drug use: none - Family History Sister Living Status: Hx Family Cardiac Disorders: Yes Hx Family Respiratory Disorders: Yes (copd) Mother Adopted: No Family Member Ethnicity: Non- Twin of Family Member: Yes, Fraternal Living Status: Hx Family Cardiac Disorders: Yes (chf) Hx Family Respiratory Disorders: No Hx Family Cancer: No Hx Family GI Disorders: No Hx Family Endocrine Disorder: No Hx Family Neuromuscular Disorders: No Hx Family Neurologic Disorders: No Hx Family HEENT Disorders: Yes (tumor in rt ear benign at age 60) Hx Family Autoimmune Disorders: No Father Adopted: No Family Member Ethnicity: Non- Twin of Family Member: Yes, Fraternal Living Status: Hx Family Cardiac Disorders: Yes (father, grandfather,self) Hx Family Respiratory Disorders: Yes (self,sister) Hx Family Cancer: No Hx Family GI Disorders: Yes (self) Hx Family Endocrine Disorder: No Hx Family Neuromuscular Disorders: No Hx Family Neurologic Disorders: No Hx Family HEENT Disorders: No Hx Family Autoimmune Disorders: No Internal Medicine - H&P: Meds Alendronate Sodium [Fosamax] 70 mg PO WE 10/28/15 [History] Ascorbate Calcium [Vitamin C] 500 mg PO DAILY 10/28/15 [History] Cholecalciferol (Vitamin D3) [Vitamin D3] 1,000 unit PO DAILY 10/28/15 [History] Cyanocobalamin (Vitamin B-12) [Vitamin B-12] 100 mcg PO DAILY 10/28/15 [History] Fluticasone/Salmeterol [Advair 250-50 Diskus] 1 puff IH BID 10/28/15 [History] Potassium Chloride [K-Tab ER] 20 meq PO DAILY 10/28/15 [History] Ropinirole HCl [Requip] 2 mg PO HS 10/28/15 [History] Tiotropium [Spiriva] 1 cap IH HS 10/28/15 [History] Warfarin [Coumadin] 5 mg PO QPM 10/28/15 [History] Dexlansoprazole [Dexilant] 60 mg PO DAILY 07/03/16 [History] Ferrous Sulfate [Iron] 325 mg PO DAILY 07/03/16 [History] Montelukast [Singulair] 10 mg PO DAILY #30 tablet 07/09/16 [Rx] Diltiazem CD (24hr) [Cardizem CD] 180 mg PO DAILY #30 cap.er.24h 08/17/16 [Rx] Sotalol [Betapace] 120 mg PO Q12HR #60 tablet 08/17/16 [Rx] Acetaminophen/Diphenhydramine [Acetaminophen Pm Caplet] 2 tab PO HS 09/09/16 [ History] Furosemide [Lasix] 40 mg PO TID #0 09/10/16 [Rx] Albuterol Sulfate [Proventil Hfa] 90 mcg IH PRN PRN 09/14/16 [History] Benzonatate [Tessalon] 200 mg PO TID PRN #30 capsule 09/25/16 [Rx] GuaiFENesin ER [Mucinex] 1,200 mg PO BID #20 tbbp.12hr 09/25/16 [Rx] Calcium Carbonate [Calcium] 500 mg PO BID 09/29/16 [History] Lisinopril [Zestril] 40 mg PO DAILY 09/29/16 [History] Allergies albuterol Allergy (Verified 09/29/16 11:04) Difficulty Breathing aspirin [ASA] Allergy (Verified 09/29/16 11:04) Difficulty Breathing Penicillins Allergy (Verified 09/29/16 11:04) Hives Sulfa (Sulfonamide Antibiotics) Allergy (Verified 09/29/16 11:04) Rash All Systems PM: A 10-system review of systems was performed and is negative for pertinent findings except as documented above in the HPI. - Constitutional Constitutional: fatigue - EENT Eyes: no change in vision, no discharge, no pain, no photophobia - Cardiovascular Cardiovascular ROS IM: dyspnea, dyspnea on exertion, edema, no chest pain, no diaphoresis, no lightheadedness, no palpitations, no syncope - Respiratory Respiratory: cough, dyspnea on exertion, change in phlegm color - Gastrointestinal Gastrointestinal: no abdominal pain, no diarrhea, no hematemesis, no hematochezia, no melena, no nausea, no vomiting - Genitourinary Genitourinary: no change in urinary stream, no dysuria, no flank pain, no hematuria - Musculoskeletal Musculoskeletal ROS IM: no numbness, no tingling - Neurological Neurological ROS: no confusion, no convulsions, no focal weakness, no numbness, no tingling, no tremor(s) - Constitutional Vitals: Temp Pulse Resp BP Pulse Ox 98.1 F 63 18 132/73 95 09/29/16 15:49 09/29/16 15:49 09/29/16 15:49 09/29/16 15:49 09/29/16 15:49 General appearance: Present: A&O X 3, morbidly obese, answers questions appropriately - Head Head exam: Present: atraumatic, normocephalic - Eye Eye exam: Present: PERRL, conjuntiva pink, sclera anicteric Pupils: Present: PERRL - Neck Neck exam general surgery: Present: supple, trachea midline. Absent: lymphadenopathy - Respiratory Respiratory exam: Present: wheezes. Absent: accessory muscle use, rales, rhonchi Additional comments: Scattered expiratory wheezes throughout lung watson - Cardiovascular Cardiovascular exam: Present: RRR, +S1, +S2. Absent: diastolic murmur, gallop, rubs, systolic murmur - GI/Abdominal GI/Abdominal exam: Present: normal bowel sounds, soft, no peritoneal signs. Absent: distended, tenderness - Extremities Exam Extremities exam: Present: pedal edema, warm, radial pulses palpable and symetrical. Absent: calf tenderness, cyanotic - Neurological Exam Neurological exam: Present: CN II-XII intact, oriented X3, no focal deficits. Absent: pronater drift, facial droop, speech deficit - Skin Skin exam: Present: dry, intact Internal Med - H&P Results - Labs CBC & Chem 7: 09/29/16 12:28 09/29/16 12:28 - EKG Data EKG shows normal: sinus rhythm - EKG Data Prior EKG available for review: yes When compared to previous EKG: there is no significant change - Diagnostic Studies Chest x-ray Additional comments: Per radiology read increasing pulmonary vascular congestion with mild patchy perihilar and lower lobe airspace disease
[2016-09-29] MEDS ORDERED: Furosemide 20 MG/2 ML VIAL IVP ONE (17:10)
[2016-09-29] MEDS: Ipratropium/Albuterol Neb 3 ML IH SCH ×2 (17:48→23:32)
[2016-09-29] MEDS: Doxycycline 100 MG CAPSULE PO SCH (17:54)
[2016-09-29] MEDS: MethylPREDNISolone 40 MG/ML VIAL IVP SCH (17:54)
[2016-09-29] MEDS ORDERED: Warfarin perPT PO PRN (18:00)
[2016-09-29] MEDS ORDERED: *HR* Warfarin 5 MG TABLET PO SCH (18:00)
[2016-09-29] MEDS ORDERED: MethylPREDNISolone 40 MG/ML VIAL IVP SCH (18:00)
--- NOTE | 2016-09-29 18:06 | Electrocardiograph Report ---
[facility] Test Date: 2016-09-29 Pat Name: Alyssa Guevara Department: 104 Room: 3B16 Gender: F Clay Transporter: : 1950 Requested By: Claude Vazquez Order Number: [id number] Reading MD: Tex Bruno MD Measurements Intervals [place] Rate: 61 P: 64 IN: 167 QRS: 49 QRSD: 84 T: 31 QT: 394 QTc: 396 Interpretive Statements SINUS RHYTHM POSSIBLE RIGHT VENTRICULAR CONDUCTION DELAY Electronically Signed On 09-29-2016 18:03:49 EST by Tex Bruno MD
[2016-09-29] MEDS: rOPINIRole 1 MG TABLET PO SCH (20:41)
[2016-09-29] MEDS: Tiotropium 18 MCG inhalation IH SCH (21:38)
[2016-09-29] MEDS: Budesonide/Formoterol 80/4.5 MDI IH SCH ×2 (21:39→23:38)
[2016-09-30 03:31] LABS: Basophils % 0.2 %; Hematocrit 35.3 % (35.3-44.9); Hemoglobin 10.3 g/dL (11.5-15.4); Immature Granulocytes % 0.7 % (0-4); Lymphocytes # 0.6 K/mcL (0.6-4.6); Lymphocytes % 9.7 %; Mean Corpuscular HGB Conc 29.2 g/dL (31.6-35.5); Mean Corpuscular Volume 89.1 fL (83.0-100.0); Mean Platelet Volume 12.9 fL (9.4-12.4); Monocytes # 0.1 K/mcL (0.0-1.3); Monocytes % 1.9 %; Platelet Count 165 K/mcL (140-400); Red Blood Count 3.96 M/mcL (3.82-4.97); Red Cell Distribution Width 15.1 % (11.5-14.5); Segmented Neutrophils % 87.5 %
[2016-09-30 03:37] LABS: INR 2.7; Prothrombin Time 29.8 Seconds (9.4-12.1)
[2016-09-30 03:43] LABS: BUN/Creatinine Ratio 29 (6-26); Blood Urea Nitrogen 25 mg/dL (7-20); Calcium 9.4 mg/dL (8.6-10.8); Carbon Dioxide 34 mEq/L (19-29); Chloride 100 mEq/L (98-109); Glucose 198 mg/dL (70-99); Osmolality,Calculated 304 (280-300); Potassium 4.3 mEq/L (3.5-4.5); Sodium 142 mEq/L (136-145); eGFR For African Americans > 60 (> 60); eGFR For Non-African Americans > 60 (> 60)
[2016-09-30] MEDS: Ipratropium/Albuterol Neb 3 ML IH SCH ×4 (05:32→22:07)
[2016-09-30] MEDS: MethylPREDNISolone 40 MG/ML VIAL IVP SCH ×2 (06:19→17:51)
[2016-09-30] MEDS: Doxycycline 100 MG CAPSULE PO SCH ×2 (06:19→17:50)
[2016-09-30] MEDS: Lisinopril 20 MG TABLET PO SCH (08:34)
[2016-09-30] MEDS: Ascorbic Acid 500 MG TABLET PO SCH (08:34)
[2016-09-30] MEDS: Diltiazem CD (24hr) 180 MG CAPSULE PO SCH (08:34)
[2016-09-30] MEDS: Furosemide 40 MG TABLET PO SCH (08:34)
[2016-09-30] MEDS: Cholecalciferol (D-3) 1,000 UNIT TABLET PO SCH (08:35)
[2016-09-30] MEDS: DEXILANT 60 MG PO SCH (08:42)
[2016-09-30] MEDS: CYANOCOBALAMIN 100 MCG PO SCH (08:42)
[2016-09-30] MEDS: Levofloxacin 750 MG/150 ML 750 MG/150 ML BAG IVPB SCH (10:13)
[2016-09-30] MEDS: Budesonide/Formoterol 80/4.5 MDI IH SCH ×2 (10:15→22:07)
--- NOTE | 2016-09-30 10:52 | Internal Med Progress Note ---
Date of Encounter: 09/30/16 Time of Encounter: 10:49 - Assessment and plan (1) Acute exacerbation of chronic obstructive airways disease Current Visit: Yes Status: Acute Assessment and plan: Continue with therapy for COPD and ventilation because O2 supplementation via nasal cannula. Systemic steroids. Nebulizer therapy. IV Levaquin. DVT prophylaxis. No evidence of pneumonia, no leukocytosis, no fever. We will continue with current management, if patient stable possible discharge tomorrow in a.m. Plan was discussed in detail with the patient, she expressed understanding. (2) Atrial fibrillation Current Visit: No Status: Acute Assessment and plan: Paroxysmal A. fib, ventricular rate currently under control. Continue with anticoagulation with Coumadin. Monitor INR tomorrow in a.m. Qualifiers: Atrial fibrillation type: paroxysmal Qualified Code(s): I48.0 - Paroxysmal atrial fibrillation (3) DVT prophylaxis Current Visit: No Status: Acute (4) Essential hypertension Current Visit: No Status: Chronic - Time Spent With Patient 25 - 35 minutes - Subjective Interval history: 1st encounter with the patient. Patient complaining of shortness of breath, she feels congested, however is feeling better than yesterday. Denies fever, denies chest pain. Still complaining of productive cough. She is a former smoker, she is a user of long-term oxygen therapy. - Constitutional Vitals: Temp Pulse Resp BP Pulse Ox 97.9 F 70 16 166/77 95 09/30/16 07:07 09/30/16 07:07 09/30/16 10:15 09/30/16 07:07 09/30/16 10:15 General appearance: Present: A&O X 3, morbidly obese, answers questions appropriately - Head Head exam: Present: atraumatic, normocephalic - Eye Eye exam: Present: PERRL, conjuntiva pink, sclera anicteric Pupils: Present: PERRL - Neck Neck exam general surgery: Present: supple, trachea midline. Absent: lymphadenopathy - Respiratory Respiratory exam: Present: decreased breath sounds. Absent: accessory muscle use, rales, rhonchi, wheezes - Cardiovascular Cardiovascular exam: Present: RRR, +S1, +S2. Absent: diastolic murmur, gallop, rubs, systolic murmur - GI/Abdominal GI/Abdominal exam: Present: normal bowel sounds, soft, no peritoneal signs. Absent: distended, tenderness - Extremities Exam Extremities exam: Present: warm, radial pulses palpable and symetrical. Absent : calf tenderness, cyanotic, pedal edema - Neurological Exam Neurological exam: Present: CN II-XII intact, oriented X3, no focal deficits. Absent: pronater drift, facial droop, speech deficit - Skin Skin exam: Present: dry, intact Internal Medicine: Result - Labs CBC & Chem 7: 09/30/16 03:09 09/30/16 03:09 Labs: Short CBC 09/30/16 Range/Units 03:09 WBC 5.7 (4.3-11.1) K/mcL Hgb 10.3 L (11.5-15.4) g/dL Hct 35.3 (35.3-44.9) % Plt Count 165 (140-400) K/mcL Neutrophils # 5.0 (1.6-8.9) K/mcL BMP 09/30/16 03:09 Sodium 142 Potassium 4.3 Chloride 100 Carbon Dioxide 34 H BUN 25 H Creatinine 0.85 Glucose 198 H Calcium 9.4 - ABG Interpretation ABG results: PT/INR, D-dimer PT 29.8 Seconds (9.4-12.1) H 09/30/16 03:09 Consult Discharge Plan - Plan Referrals: Lisbet Ray CNP [Primary Care Provider] -
[2016-09-30] MEDS: *HR* Warfarin 4 MG TABLET PO SCH (17:51)
[2016-09-30] MEDS: rOPINIRole 1 MG TABLET PO SCH (21:13)
[2016-09-30] MEDS: Tiotropium 18 MCG inhalation IH SCH (22:02)
[2016-10-01 05:06] LABS: Hematocrit 34.4 % (35.3-44.9); Hemoglobin 10.3 g/dL (11.5-15.4); Immature Granulocytes % 0.5 % (0-4); Lymphocytes # 0.7 K/mcL (0.6-4.6); Lymphocytes % 7.9 %; Mean Corpuscular HGB Conc 29.9 g/dL (31.6-35.5); Mean Corpuscular Hemoglobin 26.5 pg (28.0-33.3); Mean Corpuscular Volume 88.4 fL (83.0-100.0); Mean Platelet Volume 13.3 fL (9.4-12.4); Monocytes # 0.5 K/mcL (0.0-1.3); Neutrophils # 7.1 K/mcL (1.6-8.9); Platelet Count 157 K/mcL (140-400); Red Blood Count 3.89 M/mcL (3.82-4.97); Red Cell Distribution Width 15.3 % (11.5-14.5); Segmented Neutrophils % 85.6 %
[2016-10-01 05:11] LABS: INR 3.4; Prothrombin Time 38.6 Seconds (9.4-12.1)
[2016-10-01] MEDS: Ipratropium/Albuterol Neb 3 ML IH SCH ×4 (05:18→23:23)
[2016-10-01 05:22] LABS: BUN/Creatinine Ratio 43 (6-26); Blood Urea Nitrogen 33 mg/dL (7-20); Calcium 9.5 mg/dL (8.6-10.8); Carbon Dioxide 34 mEq/L (19-29); Chloride 100 mEq/L (98-109); Glucose 146 mg/dL (70-99); Osmolality,Calculated 304 (280-300); Potassium 4.6 mEq/L (3.5-4.5); Sodium 142 mEq/L (136-145); eGFR For African Americans > 60 (> 60); eGFR For Non-African Americans > 60 (> 60)
[2016-10-01] MEDS: MethylPREDNISolone 40 MG/ML VIAL IVP SCH ×3 (06:03→16:52)
[2016-10-01] MEDS: Doxycycline 100 MG CAPSULE PO SCH ×2 (06:03→18:27)
[2016-10-01] MEDS: Furosemide 40 MG TABLET PO SCH (08:22)
[2016-10-01] MEDS: Cholecalciferol (D-3) 1,000 UNIT TABLET PO SCH (08:22)
[2016-10-01] MEDS: Ascorbic Acid 500 MG TABLET PO SCH (08:22)
[2016-10-01] MEDS: Lisinopril 20 MG TABLET PO SCH (08:22)
[2016-10-01] MEDS: Diltiazem CD (24hr) 180 MG CAPSULE PO SCH (08:22)
[2016-10-01] MEDS: CYANOCOBALAMIN 100 MCG PO SCH (08:23)
[2016-10-01] MEDS: Levofloxacin 750 MG/150 ML 750 MG/150 ML BAG IVPB SCH (08:23)
[2016-10-01] MEDS: DEXILANT 60 MG PO SCH (08:24)
[2016-10-01] MEDS: Budesonide/Formoterol 80/4.5 MDI IH SCH ×2 (10:08→23:22)
--- NOTE | 2016-10-01 10:44 | Internal Med Progress Note ---
Date of Encounter: 10/01/16 Time of Encounter: 10:42 - Assessment and plan (1) Acute exacerbation of chronic obstructive airways disease Current Visit: Yes Status: Acute Assessment and plan: Continue with therapy for COPD exacerbation still productive cough, feels worse than yesterday, although states hat sputum is less dark than before. O2 supplementation via nasal cannula. Systemic steroids. Nebulizer therapy. IV Levaquin. DVT prophylaxis. No evidence of pneumonia, no leukocytosis, no fever. We will continue with current management, if patient stable possible discharge tomorrow in a.m. Plan was discussed in detail with the patient, she expressed understanding. (2) Atrial fibrillation Current Visit: No Status: Acute Qualifiers: Atrial fibrillation type: paroxysmal Qualified Code(s): I48.0 - Paroxysmal atrial fibrillation (3) DVT prophylaxis Current Visit: No Status: Acute (4) Essential hypertension Current Visit: No Status: Chronic - Subjective Interval history: Patient complaining of shortness of breath, she feels congested, feels worse than yesterday. Denies fever, denies chest pain. Still complaining of productive cough. She is a former smoker, she is a user of long-term oxygen therapy. - Constitutional Vitals: Temp Pulse Resp BP Pulse Ox 97.7 F 60 14 159/83 96 10/01/16 06:54 10/01/16 06:54 10/01/16 10:08 10/01/16 06:54 10/01/16 10:08 General appearance: Present: A&O X 3, morbidly obese, answers questions appropriately - Head Head exam: Present: atraumatic, normocephalic - Eye Eye exam: Present: PERRL, conjuntiva pink, sclera anicteric Pupils: Present: PERRL - Neck Neck exam general surgery: Present: supple, trachea midline. Absent: lymphadenopathy - Respiratory Respiratory exam: Present: decreased breath sounds, rhonchi, wheezes. Absent: accessory muscle use, rales - Cardiovascular Cardiovascular exam: Present: RRR, +S1, +S2. Absent: diastolic murmur, gallop, rubs, systolic murmur - GI/Abdominal GI/Abdominal exam: Present: normal bowel sounds, soft, no peritoneal signs. Absent: distended, tenderness - Extremities Exam Extremities exam: Present: warm, radial pulses palpable and symetrical. Absent : calf tenderness, cyanotic, pedal edema - Neurological Exam Neurological exam: Present: CN II-XII intact, oriented X3, no focal deficits. Absent: pronater drift, facial droop, speech deficit - Skin Skin exam: Present: dry, intact Internal Medicine: Result - Labs CBC & Chem 7: 10/01/16 04:17 10/01/16 04:17 Labs: Short CBC 10/01/16 Range/Units 04:17 WBC 8.3 (4.3-11.1) K/mcL Hgb 10.3 L (11.5-15.4) g/dL Hct 34.4 L (35.3-44.9) % Plt Count 157 (140-400) K/mcL Neutrophils # 7.1 (1.6-8.9) K/mcL BMP 10/01/16 04:17 Sodium 142 Potassium 4.6 H Chloride 100 Carbon Dioxide 34 H BUN 33 H Creatinine 0.76 Glucose 146 H Calcium 9.5 - ABG Interpretation ABG results: PT/INR, D-dimer PT 38.6 Seconds (9.4-12.1) H 10/01/16 04:17 Consult Discharge Plan - Plan Referrals: Lisbet Ray, SAFETY ADVISOR [Primary Care Provider] -
[2016-10-01] MEDS ORDERED: MethylPREDNISolone 40 MG/ML VIAL IVP SCH (10:45)
[2016-10-01] MEDS ORDERED: predniSONE 20 MG TABLET PO ONE (16:50)
[2016-10-01] MEDS: *HR* Warfarin 4 MG TABLET PO SCH (18:27)
[2016-10-01] MEDS: hydrALAZINE 25 MG TABLET PO PRN (21:03)
[2016-10-01] MEDS: rOPINIRole 1 MG TABLET PO SCH (22:36)
[2016-10-01] MEDS: Tiotropium 18 MCG inhalation IH SCH (23:23)
[2016-10-02] MEDS: Ipratropium/Albuterol Neb 3 ML IH SCH ×2 (04:54→10:23)
[2016-10-02] MEDS: hydrALAZINE 25 MG TABLET PO PRN (04:58)
[2016-10-02 05:28] LABS: Hematocrit 36.1 % (35.3-44.9); Hemoglobin 10.6 g/dL (11.5-15.4); Immature Granulocytes % 0.8 % (0-4); Lymphocytes # 0.7 K/mcL (0.6-4.6); Lymphocytes % 8.5 %; Mean Corpuscular HGB Conc 29.4 g/dL (31.6-35.5); Mean Corpuscular Hemoglobin 25.7 pg (28.0-33.3); Mean Corpuscular Volume 87.6 fL (83.0-100.0); Mean Platelet Volume 12.9 fL (9.4-12.4); Monocytes # 0.6 K/mcL (0.0-1.3); Monocytes % 6.8 %; Platelet Count 180 K/mcL (140-400); Red Blood Count 4.12 M/mcL (3.82-4.97); Red Cell Distribution Width 15.3 % (11.5-14.5); Segmented Neutrophils % 83.9 %
[2016-10-02 05:34] LABS: INR 3.5; Prothrombin Time 39.3 Seconds (9.4-12.1)
[2016-10-02 05:45] LABS: BUN/Creatinine Ratio 37 (6-26); Blood Urea Nitrogen 38 mg/dL (7-20); Calcium 9.5 mg/dL (8.6-10.8); Carbon Dioxide 35 mEq/L (19-29); Chloride 100 mEq/L (98-109); Glucose 153 mg/dL (70-99); Osmolality,Calculated 306 (280-300); Potassium 4.3 mEq/L (3.5-4.5); Sodium 142 mEq/L (136-145); eGFR For African Americans > 60 (> 60); eGFR For Non-African Americans 53 (> 60)
[2016-10-02] MEDS: Doxycycline 100 MG CAPSULE PO SCH (06:23)
[2016-10-02 07:32] VITALS: BP 174/72
[2016-10-02] MEDS: DEXILANT 60 MG PO SCH (07:46)
[2016-10-02] MEDS: Lisinopril 20 MG TABLET PO SCH (07:46)
[2016-10-02] MEDS: Cholecalciferol (D-3) 1,000 UNIT TABLET PO SCH (07:46)
[2016-10-02] MEDS: Ascorbic Acid 500 MG TABLET PO SCH (07:46)
[2016-10-02] MEDS: Diltiazem CD (24hr) 180 MG CAPSULE PO SCH (07:46)
[2016-10-02] MEDS: CYANOCOBALAMIN 100 MCG PO SCH (07:46)
[2016-10-02] MEDS: Furosemide 40 MG TABLET PO SCH (07:46)
[2016-10-02] MEDS ORDERED: amLODIPine 5 MG TABLET PO ONE (08:15)
--- NOTE | 2016-10-02 08:53 | Discharge Summary ---
Date of Encounter: 10/02/16 Time of Encounter: 08:40 - Discharge Diagnosis (1) Acute exacerbation of chronic obstructive airways disease Priority: Primary Status: Acute (2) Atrial fibrillation Priority: Secondary Status: Acute Qualifiers: Atrial fibrillation type: paroxysmal Qualified Code(s): I48.0 - Paroxysmal atrial fibrillation (3) DVT prophylaxis Priority: Secondary Status: Acute (4) Essential hypertension Priority: Secondary Status: Chronic - Discharge Medications Prescriptions: Amlodipine [Norvasc] 5 mg PO DAILY #14 tablet Levofloxacin [Levaquin] 500 mg PO DAILY #4 tablet Losartan Potassium [Cozaar] 50 mg PO DAILY #14 tab PredniSONE 10 mg PO DAILY #42 tablet Home Medications: Alendronate Sodium [Fosamax] 70 mg PO WE 10/28/15 [History] Ascorbate Calcium [Vitamin C] 500 mg PO DAILY 10/28/15 [History] Cholecalciferol (Vitamin D3) [Vitamin D3] 1,000 unit PO DAILY 10/28/15 [History] Cyanocobalamin (Vitamin B-12) [Vitamin B-12] 100 mcg PO DAILY 10/28/15 [History] Fluticasone/Salmeterol [Advair 250-50 Diskus] 1 puff IH BID 10/28/15 [History] Potassium Chloride [K-Tab ER] 20 meq PO DAILY 10/28/15 [History] Ropinirole HCl [Requip] 2 mg PO HS 10/28/15 [History] Tiotropium [Spiriva] 1 cap IH HS 10/28/15 [History] Warfarin [Coumadin] 5 mg PO QPM 10/28/15 [History] Dexlansoprazole [Dexilant] 60 mg PO DAILY 07/03/16 [History] Ferrous Sulfate [Iron] 325 mg PO DAILY 07/03/16 [History] Montelukast [Singulair] 10 mg PO DAILY #30 tablet 07/09/16 [Rx] Diltiazem CD (24hr) [Cardizem CD] 180 mg PO DAILY #30 cap.er.24h 08/17/16 [Rx] Sotalol [Betapace] 120 mg PO Q12HR #60 tablet 08/17/16 [Rx] Acetaminophen/Diphenhydramine [Acetaminophen Pm Caplet] 2 tab PO HS 09/09/16 [ History] Furosemide [Lasix] 40 mg PO TID #0 09/10/16 [Rx] Albuterol Sulfate [Proventil Hfa] 90 mcg IH PRN PRN 09/14/16 [History] Benzonatate [Tessalon] 200 mg PO TID PRN #30 capsule 09/25/16 [Rx] GuaiFENesin ER [Mucinex] 1,200 mg PO BID #20 tbbp.12hr 09/25/16 [Rx] Calcium Carbonate [Calcium] 500 mg PO BID 09/29/16 [History] Amlodipine [Norvasc] 5 mg PO DAILY #14 tablet 10/02/16 [Rx] Levofloxacin [Levaquin] 500 mg PO DAILY #4 tablet 10/02/16 [Rx] Losartan Potassium [Cozaar] 50 mg PO DAILY #14 tab 10/02/16 [Rx] PredniSONE 10 mg PO DAILY #42 tablet 10/02/16 [Rx] Allergies/Adverse Reactions: Allergies albuterol Allergy (Verified 09/29/16 11:04) Difficulty Breathing aspirin [ASA] Allergy (Verified 09/29/16 11:04) Difficulty Breathing Penicillins Allergy (Verified 09/29/16 11:04) Hives Sulfa (Sulfonamide Antibiotics) Allergy (Verified 09/29/16 11:04) Rash Date of admission: 09/29/16 14:21 Primary care physician: Lisbet Ray, Discharging clinician: Rigoberto Johnson Anticipated date of discharge: 10/02/16 - Patient Status Disposition: Home Health Service Condition: Fair Functional capacity at discharge: independent ambulation Overall status at discharge: patient is back to baseline - Discharge Instructions Follow Up With: Lisbet Ray CNP [Primary Care Provider] - - Diet and Activity Activity: increase activity as tolerated Diet: advance to your usual diet Interval History: Ms. Guevara is a 65 year old female with past medical history of COPD oxygen dependent hypertension paroxysmal atrial fib. Patient has been experiencing increasing shortness of breath on exertion and a productive cough with brown green sputum for approximately 1 week. She is on continuous oxygen at home on 3 L nasal cannula and did use her rescue inhalers with no improvement. She denies any fevers chills nausea hemoptysis vomiting diarrhea abdominal pain or chest pain. She admits to orthopnea. She was seen on Sunday at an urgent care and was prescribe Mucinex. This a.m. shortness of breath worsened occurring even at rest. She was brought to the ER for evaluation. According to ER notes patient's initial lab work unremarkable with no leukocytosis troponin 0 BNP 88. Chest x-ray revealed increase in pulmonary vascular congestion with mild patchy perihilar and lower lobe airspace disease. EKG normal sinus rhythm with no ST-T wave abnormalities noted She was given duo nebs and IV steroids and Levaquin she has been admitted for further workup and evaluation. Presently patient is not in any respiratory distress. Upon auscultation she has scattered expiratory wheezes and a moist cough. She denies any chest pain or shortness of breath at this time. Presently she is hemodynamically stable. I reviewed this case with Dr Kaplan who agrees with plan Hospital course: Ms. Guevara is a 65 year old female with a due to COPD exacerbation, she feels better than yesterday, still productive cough but less. Her blood pressure is uncontrolled, currently hypertensive. At this point, we will add amlodipine by mouth to hlp control her BP, steroids can increased BP levels as well. Additionally in light of persistent cough will switch from MATTEO inhibitor to losartan 50 mg daily. For her COPD exacerbation we will continue with by mouth steroids with tapering dose, additionally we will continue with by mouth antibiotics. The patient was instructed to take Levaquin by mouth. She has inhalers at home, she uses Spiriva, Advair and albuterol. She was instructed to continue with same. The patient will follow up as outpatient with her primary care provider for follow-up of both her COPD and hypertension. For her atrial fibrillation will continue with anticoagulation and rate control medications. She will be discharged home today. The patient was explained in detail about the plan, she verbally expressed understanding. There is no fever, there is no leukocytosis, there is no evidence of pneumonia. - Time Spent with Patient Total time spent providing and/or coordinating discharge services: Greater than 30 minutes - Constitutional Vitals: Temp Pulse Resp BP Pulse Ox 97.9 F 54 16 174/72 96 10/02/16 07:29 10/02/16 07:29 10/02/16 07:29 10/02/16 07:29 10/02/16 07:29 General appearance: Present: A&O X 3, morbidly obese, pleasant, no acute distress, answers questions appropriately - Head Head exam: Present: atraumatic, normocephalic - Eye Eye exam: Present: PERRL, conjuntiva pink, sclera anicteric Pupils: Present: PERRL - Neck Neck exam general surgery: Present: supple, trachea midline. Absent: lymphadenopathy - Respiratory Respiratory exam: Present: decreased breath sounds. Absent: accessory muscle use, rales, rhonchi, wheezes - Cardiovascular Cardiovascular exam: Present: RRR, +S1, +S2. Absent: diastolic murmur, gallop, rubs, systolic murmur - GI/Abdominal GI/Abdominal exam: Present: normal bowel sounds, soft, no peritoneal signs. Absent: distended, tenderness - Extremities Exam Extremities exam: Present: warm, radial pulses palpable and symetrical. Absent : calf tenderness, cyanotic, pedal edema - Neurological Exam Neurological exam: Present: CN II-XII intact, oriented X3, no focal deficits. Absent: pronater drift, facial droop, speech deficit - Skin Skin exam: Present: dry, intact
[2016-10-02] MEDS ORDERED: predniSONE 20 MG TABLET PO SCH (09:00)
[2016-10-02] MEDS ORDERED: levoFLOXacin 500 MG TABLET PO SCH (09:00)
--- NOTE | 2016-10-02 09:02 | Physician Discharge Referral ---
Home Health/Hosp Referral Info Transfer to: Home Health Provider in Charge Post Discharge: PCP - Diagnosis (1) Acute exacerbation of chronic obstructive airways disease Status: Acute (2) Atrial fibrillation Status: Acute (3) DVT prophylaxis Status: Acute (4) Essential hypertension Status: Chronic - Respiratory Orders Oxygen / L per min (3) Smoking Cessation: Smoking cessation has been advised. For more information, call the [place] Tobacco Quit Line at 4-098-YKET-NOW. - Diet/Nutrition Diet/Nutrition Orders: Cardiac - Activity Activity Orders: Up ad jose - Services Needed Following services are medically necessary services: Home Health Aide - Transfer Medications Prescriptions: Amlodipine [Norvasc] 5 mg PO DAILY #14 tablet Levofloxacin [Levaquin] 500 mg PO DAILY #4 tablet Losartan Potassium [Cozaar] 50 mg PO DAILY #14 tab PredniSONE 10 mg PO DAILY #42 tablet Home Medications: Alendronate Sodium [Fosamax] 70 mg PO WE 10/28/15 [History] Ascorbate Calcium [Vitamin C] 500 mg PO DAILY 10/28/15 [History] Cholecalciferol (Vitamin D3) [Vitamin D3] 1,000 unit PO DAILY 10/28/15 [History] Cyanocobalamin (Vitamin B-12) [Vitamin B-12] 100 mcg PO DAILY 10/28/15 [History] Fluticasone/Salmeterol [Advair 250-50 Diskus] 1 puff IH BID 10/28/15 [History] Potassium Chloride [K-Tab ER] 20 meq PO DAILY 10/28/15 [History] Ropinirole HCl [Requip] 2 mg PO HS 10/28/15 [History] Tiotropium [Spiriva] 1 cap IH HS 10/28/15 [History] Warfarin [Coumadin] 5 mg PO QPM 10/28/15 [History] Dexlansoprazole [Dexilant] 60 mg PO DAILY 07/03/16 [History] Ferrous Sulfate [Iron] 325 mg PO DAILY 07/03/16 [History] Montelukast [Singulair] 10 mg PO DAILY #30 tablet 07/09/16 [Rx] Diltiazem CD (24hr) [Cardizem CD] 180 mg PO DAILY #30 cap.er.24h 08/17/16 [Rx] Sotalol [Betapace] 120 mg PO Q12HR #60 tablet 08/17/16 [Rx] Acetaminophen/Diphenhydramine [Acetaminophen Pm Caplet] 2 tab PO HS 09/09/16 [ History] Furosemide [Lasix] 40 mg PO TID #0 09/10/16 [Rx] Albuterol Sulfate [Proventil Hfa] 90 mcg IH PRN PRN 09/14/16 [History] Benzonatate [Tessalon] 200 mg PO TID PRN #30 capsule 09/25/16 [Rx] GuaiFENesin ER [Mucinex] 1,200 mg PO BID #20 tbbp.12hr 09/25/16 [Rx] Calcium Carbonate [Calcium] 500 mg PO BID 09/29/16 [History] Amlodipine [Norvasc] 5 mg PO DAILY #14 tablet 10/02/16 [Rx] Levofloxacin [Levaquin] 500 mg PO DAILY #4 tablet 10/02/16 [Rx] Losartan Potassium [Cozaar] 50 mg PO DAILY #14 tab 10/02/16 [Rx] PredniSONE 10 mg PO DAILY #42 tablet 10/02/16 [Rx] Allergies/Adverse Reactions: Allergies albuterol Allergy (Verified 09/29/16 11:04) Difficulty Breathing aspirin [ASA] Allergy (Verified 09/29/16 11:04) Difficulty Breathing Penicillins Allergy (Verified 09/29/16 11:04) Hives Sulfa (Sulfonamide Antibiotics) Allergy (Verified 09/29/16 11:04) Rash Certification: Further, I certify that my clinical findings support that this patient is homebound (i.e. absences from home require considerable and taxing effort and are for medical reasons or hinduism services or infrequently or short duration when for other reasons) because: Homebound Reason: Leaving home requires considerable and taxing effort due to condition, Severity of cardiac or pulmonary status limits activity tolerance Attestation: My signature below is to certify that this patient is under my care and that I, or nurse practitioner, or a physician's plant attendant or assistant operator working with me, has a face-to -face encounter with this patient.
[2016-10-02] MEDS: Budesonide/Formoterol 80/4.5 MDI IH SCH (10:25)
[2016-10-04] MEDS ORDERED: ALENDRONATE 70 MG PO SCH (16:21)
== END 2016-10-02 11:25 | disposition home health service (06) ==
LOC: 3BNU 10:56 → EMEROO 10:56 → SUATTDRO 14:21 → 3BNU 15:04
PROVIDERS: ADMIT Family Medicine; ATTEND Internal Medicine

== ENCOUNTER 2016-10-24 11:01 | Inpatient (IN) ==
[2016-10-24] MEDS ORDERED: Aspirin 325 MG TABLET PO ONE (12:25)
--- NOTE | 2016-10-24 12:33 | Emergency Department Note ---
Disposition Clinical Impression: Atrial fibrillation Qualifiers: Atrial fibrillation type: paroxysmal Qualified Code(s): I48.0 - Paroxysmal atrial fibrillation Disposition: Admitted As Inpatient Condition: Good Referrals: Lisbet Ray CNP [Primary Care Provider] - Forms: ED Satisfaction Letter Time of Disposition: 14:01 Arrhythmia/Palpitations HPI - General Chief Complaint: ED Arrhythmia/Palpitations Stated Complaint: "in a-fib" pcp sent Time Seen by Provider: 10/24/16 12:22 Source: patient Limitations: no limitations Nursing Notes Reviewed: Yes Vital Signs Reviewed: Yes - History of Present Illness HPI Narrative: Patient presents to the emergency department with palpitations and chest pressure. She states she has a history of paroxysmal A. fib and this is her fourth episode this year. Symptoms started on Sunday. She called her doctor yesterday who called cardiology today and was recommended her to come to the emergency department. She states her heart rates running in the 80s and 90s and goes up to 150-160 when she walks. Admits to some left-sided chest pressure which is not normal for her when she has her episodes. Pt Subjective Complaint: palpitations Onset (ago): day(s) (2) Duration: constant Severity: moderate - Related Data Home Medications Medication Instructions Recorded Confirmed Alendronate Sodium [Fosamax] 70 mg PO QWEEK 10/28/15 10/24/16 Ascorbate Calcium [Vitamin C] 500 mg PO DAILY 10/28/15 10/24/16 Cholecalciferol (Vitamin D3) 1,000 unit PO DAILY 10/28/15 10/24/16 [Vitamin D3] Cyanocobalamin (Vitamin B-12) 100 mcg PO DAILY 10/28/15 10/24/16 [Vitamin B-12] Fluticasone/Salmeterol [Advair 1 puff IH BID 10/28/15 10/24/16 250-50 Diskus] Potassium Chloride [K-Tab ER] 20 meq PO DAILY 10/28/15 10/24/16 Ropinirole HCl [Requip] 2 mg PO HS 10/28/15 10/24/16 Tiotropium [Spiriva] 1 cap IH HS 10/28/15 10/24/16 Warfarin [Coumadin] 5 mg PO QPM 10/28/15 10/24/16 Dexlansoprazole [Dexilant] 60 mg PO DAILY 07/03/16 10/24/16 Ferrous Sulfate [Iron] 325 mg PO DAILY 07/03/16 10/24/16 Acetaminophen/Diphenhydramine 2 tab PO HS 09/09/16 10/24/16 [Acetaminophen Pm Caplet] Albuterol Sulfate [Proventil Hfa] 2 puff IH PRN PRN 09/14/16 10/24/16 Calcium Carbonate [Calcium] 500 mg PO BID 09/29/16 10/24/16 Oxygen 3 l IH AD 10/24/16 10/24/16 Previous Rx's Medication Instructions Recorded Montelukast [Singulair] 10 mg PO DAILY #30 tablet 07/09/16 Diltiazem CD (24hr) [Cardizem CD] 180 mg PO DAILY #30 cap.er.24h 08/17/16 Sotalol [Betapace] 120 mg PO Q12HR #60 tablet 08/17/16 Furosemide [Lasix] 40 mg PO TID #0 09/10/16 Benzonatate [Tessalon] 200 mg PO TID PRN #30 capsule 09/25/16 Amlodipine [Norvasc] 5 mg PO DAILY #14 tablet 10/02/16 Losartan Potassium [Cozaar] 50 mg PO DAILY #14 tab 10/02/16 Allergies Allergy/AdvReac Type Severity Reaction Status Date / Time albuterol Allergy Difficulty Verified 09/29/16 11:04 Breathing aspirin [ASA] Allergy Difficulty Verified 09/29/16 11:04 Breathing Penicillins Allergy Hives Verified 09/29/16 11:04 Sulfa (Sulfonamide Allergy Rash Verified 09/29/16 11:04 Antibiotics) All systems ED: reviewed and negative except as stated. Constitutional: Denies: fever Cardiovascular: Reports: chest pain, palpitations. Denies: dyspnea on exertion Respiratory: Denies: dyspnea Gastrointestinal: Denies: abdominal pain, vomiting, diarrhea Past Medical History - Past Medical History Attestation: Yes The following information was validated with the patient. Source: patient Medical history: Reports: asthma, atrial fibrillation, COPD, hypertension Surgical history: Reports: cholecystectomy, hysterectomy Psychiatric history: Reports: no psych history [employer] history: Reports: no [employer] history - Social History Smoking Status: Former smoker Smokeless Tobacco Status: No Alcohol use: Reports: none Drug use: Reports: none Physical Exam - General Limitations: no limitations General appearance: alert - Head Head exam: atraumatic, normocephalic, normal inspection - Eye Eye exam: Present: normal appearance - ENT ENT exam: normal exam, normal oropharynx - Neck Neck exam: Present: normal inspection - Chest Chest inspection: Present: normal inspection - Respiratory Respiratory exam: Present: normal lung sounds bilaterally - Cardiovascular Cardiovascular exam: Present: regular rate, irregular rhythm - Abdominal Exam Abdominal exam: Present: soft, Non-Tender Course Course Narrative: Patient is rate controlled in the 70s. Cardiac workup was discussed with cardiology. Would not be a candidate for cardioversion as she has had symptoms present for 48 hours. - Consultations Consultation #1: Dr. Fernando will consult. States to admit to medicine with cardiology consult. Time: 13:27 Consultation #2: Mar accepts Time: 14:01 Vital Signs Temperature 97.5 F L 10/24/16 11:20 Pulse Rate 88 10/24/16 11:20 Respiratory Rate 18 10/24/16 11:20 Blood Pressure 128/81 10/24/16 11:20 O2 Sat by Pulse Oximetry 97 10/24/16 11:20 Temperature 97.5 F L 10/24/16 11:20 Pulse Rate 73 10/24/16 13:51 Respiratory Rate 16 10/24/16 13:51 Blood Pressure 125/57 10/24/16 13:51 O2 Sat by Pulse Oximetry 96 10/24/16 13:51 Oxygen Delivery Oxygen Delivery Nasal Cannula Arrhythmia/Palpitations - Medical Records Medical records reviewed: Yes I reviewed the patient's medical records. - Lab Data Lab results reviewed: Yes I reviewed the patient's lab results. Result diagrams: 10/24/16 12:37 10/24/16 12:37 Lab Results 10/24/16 10/24/16 10/24/16 Range/Units 12:37 12:37 12:37 WBC 4.7 (4.3-11.1) K/mcL RBC 4.12 (3.82-4.97) M/mcL Hgb 11.0 L (11.5-15.4) g/dL Hct 37.4 (35.3-44.9) % MCV 90.8 (83.0-100.0) fL MCH 26.7 L (28.0-33.3) pg MCHC 29.4 L (31.6-35.5) g/dL RDW 15.5 H (11.5-14.5) % Plt Count 145 (140-400) K/mcL MPV 12.0 (9.4-12.4) fL Immature Gran % 0.2 (0-4) % Seg Neutrophils % 57.1 % Lymphocytes % 26.8 % Monocytes % 12.7 % Eosinophils % 3.0 % Basophils % 0.2 % Neutrophils # 2.7 (1.6-8.9) K/mcL Lymphocytes # 1.3 (0.6-4.6) K/mcL Monocytes # 0.6 (0.0-1.3) K/mcL Eosinophils # 0.1 (0.0-0.6) K/mcL Basophils # 0.0 (0.0-0.2) K/mcL PT 42.8 H (9.4-12.1) Seconds INR 3.8 APTT 38.9 H (26.0-36.0) Seconds Sodium 143 (136-145) mEq/L Potassium 4.3 (3.5-4.5) mEq/L Chloride 101 (98-109) mEq/L Carbon Dioxide 34 H (19-29) mEq/L BUN 22 H (7-20) mg/dL Creatinine 0.79 (0.57-1.11) mg/dL Est GFR ( Amer) > 60 (> 60) Est GFR (Non-Af Amer) > 60 (> 60) BUN/Creatinine Ratio 28 H (6-26) Glucose 93 (70-99) mg/dL Calculated Osmolality 299 (280-300) Calcium 8.8 (8.6-10.8) mg/dL Troponin I (0-0.03) ng/mL TSH 2.522 (0.350-4.840) mcIU/mL 10/24/16 Range/Units 12:37 WBC (4.3-11.1) K/mcL RBC (3.82-4.97) M/mcL Hgb (11.5-15.4) g/dL Hct (35.3-44.9) % MCV (83.0-100.0) fL MCH (28.0-33.3) pg MCHC (31.6-35.5) g/dL RDW (11.5-14.5) % Plt Count (140-400) K/mcL MPV (9.4-12.4) fL Immature Gran % (0-4) % Seg Neutrophils % % Lymphocytes % % Monocytes % % Eosinophils % % Basophils % % Neutrophils # (1.6-8.9) K/mcL Lymphocytes # (0.6-4.6) K/mcL Monocytes # (0.0-1.3) K/mcL Eosinophils # (0.0-0.6) K/mcL Basophils # (0.0-0.2) K/mcL PT (9.4-12.1) Seconds INR APTT (26.0-36.0) Seconds Sodium (136-145) mEq/L Potassium (3.5-4.5) mEq/L Chloride (98-109) mEq/L Carbon Dioxide (19-29) mEq/L BUN (7-20) mg/dL Creatinine (0.57-1.11) mg/dL Est GFR ( Amer) (> 60) Est GFR (Non-Af Amer) (> 60) BUN/Creatinine Ratio (6-26) Glucose (70-99) mg/dL Calculated Osmolality (280-300) Calcium (8.6-10.8) mg/dL Troponin I 0.01 (0-0.03) ng/mL TSH (0.350-4.840) mcIU/mL - Radiology Data Radiology results reviewed: Yes I reviewed the patient's radiology results. Chest X-Ray 10/24/16 12:25 IMPRESSION: Stable cardiomegaly and pulmonary artery hypertension with probable chronic pulmonary venous hypertension. Stable mild patchy perihilar and lung base opacities which may be chronic in nature. No lobar pneumonia or overt congestive heart failure. D/ / 10/24/2016 13:10:47 Yonatan Crowell MD / Antonia Carter Interpreting Provider: Yonatan Crowell MD - EKG Data EKG attestation: Yes I reviewed and interpreted this EKG. EKG results narrative: A. fib at 78. Normal axis. Nonspecific ST changes. Normal QRS.
[2016-10-24 12:44] LABS: Basophils % 0.2 %; Eosinophils # 0.1 K/mcL (0.0-0.6); Hematocrit 37.4 % (35.3-44.9); Immature Granulocytes % 0.2 % (0-4); Lymphocytes # 1.3 K/mcL (0.6-4.6); Lymphocytes % 26.8 %; Mean Corpuscular HGB Conc 29.4 g/dL (31.6-35.5); Mean Corpuscular Hemoglobin 26.7 pg (28.0-33.3); Mean Corpuscular Volume 90.8 fL (83.0-100.0); Monocytes # 0.6 K/mcL (0.0-1.3); Monocytes % 12.7 %; Neutrophils # 2.7 K/mcL (1.6-8.9); Platelet Count 145 K/mcL (140-400); Red Blood Count 4.12 M/mcL (3.82-4.97); Red Cell Distribution Width 15.5 % (11.5-14.5); Segmented Neutrophils % 57.1 %
[2016-10-24 12:54] LABS: INR 3.8; Prothrombin Time 42.8 Seconds (9.4-12.1)
[2016-10-24 12:55] LABS: BUN/Creatinine Ratio 28 (6-26); Blood Urea Nitrogen 22 mg/dL (7-20); Calcium 8.8 mg/dL (8.6-10.8); Carbon Dioxide 34 mEq/L (19-29); Chloride 101 mEq/L (98-109); Glucose 93 mg/dL (70-99); Osmolality,Calculated 299 (280-300); Potassium 4.3 mEq/L (3.5-4.5); Sodium 143 mEq/L (136-145); eGFR For African Americans > 60 (> 60); eGFR For Non-African Americans > 60 (> 60)
[2016-10-24 12:56] LABS: Activated Partial Thrombo Time 38.9 Seconds (26.0-36.0)
[2016-10-24 13:17] LABS: Thyroid Stimulating Hormone 2.522 mcIU/mL (0.350-4.840)
--- NOTE | 2016-10-24 14:47 | Cardiology Consult Note ---
Date of Encounter: 10/24/16 Time of Encounter: 14:15 Assessment and Plan (1) Atrial fibrillation Current Visit: No Status: Chronic Per cardiology: -Known history of atrial fibrillation status post DC cardioversion August 2016. -Had been SR patient states until Sunday. -ECG with atrial fibrillation, HR 70s, QT 362, QTC 395. -On sotalol, coumadin, and cartia. States compliance with medications. -INR 3.8 on admission. Denies active bleeding or blood loss. -Troponin negative x1. -Possible increase of sotalol to 160mg po Q12 hours per discussion with Dr. Aj Virk (EP). Will discuss with Dr. Obrien. -Continue coumadin per pharmacy. -Will continue to monitor. (HECTOR) Qualifiers: Atrial fibrillation type: paroxysmal Qualified Code(s): I48.0 - Paroxysmal atrial fibrillation (2) COPD (chronic obstructive pulmonary disease) Current Visit: No Status: Chronic Per cardiology: -Patient with known COPD. -On O2 at 3LPM per nasal cannula at all times. -States productive cough since Sunday with yellow sputum, -Afebrile, no leukocytosis noted -May be contributing to atrial fibrillation. -Management per primary service. (HECTOR) Qualifiers: COPD type: emphysema Emphysema type: unspecified Qualified Code(s): J43.9 - Emphysema, unspecified (3) Atypical chest pain Current Visit: Yes Status: Acute Per cardiology: -Patient states chest pain/thumping. Describes more as palpitations. -Troponin negative x1. -ECG with atrial fibrillation. -Echo 08/13/16 with LVEF 60%, normal left ventricular size and function, moderate concentric hypertrophy of left ventricle, RV mild dilated with normal function, anterior and basal anterior hearn not visualized, all other wall segments showed normal motion. -Do not suspect ACS. -Reports "normal heart cath in [place] about 3 years ago". -Will cycle troponins. -Will continue to monitor. (HECTOR) (4) Edema Current Visit: No Status: Chronic Per cardiology: -+1 to +2 bilateral lower extremity pitting edema. -Patient states edema is slightly worse than normal. -Chest x-ray with no overt heart failure. -Patient states she takes lasix 80mg po daily at home. -Last weight 316 lbs in [facility] 09/2016, now 298 lbs. -Recommend continuing home dose of lasix. -Will continue to monitor. (HECTOR) Qualifiers: Edema type: localized Qualified Code(s): R60.0 - Localized edema Discussion w patient/family: The assessment and plan as outlined above was discussed with the patient who expressed understanding and agreement. All questions were answered. Thank you for involving us in the care of your patient. Please call with any questions. Pateint seen and examined with MANOLO Barajas Discussed and reviewed with . History of Present Illness Consult date: 10/24/16 Requesting physician: Sharla Modi See Consult reason: a.fib Chief complaint: "I'm in a.fib" History of present illness: Ms. Guevara is a 65 year old female with a relevant past medical history of COPD, O2 dependent, asthma, HTN, atrial fibrillation status post ZOILA and cardioverion August 2016 and increased dose sotalol to 120mg PO q12hrs. Patient states she was doing well at home until Sunday she knew she was back in a.fib. Patient states she got up out of bed and was getting into the shower when she noticed her heart was pounding. She states that she has had increased stress at home with her [id number] moving in. She also states that she has not been sleeping well. States she is only sleeping 4-5 hours per night (normally 10 hrs ) with the increased stress at home. Patient states she wears O2 at 3LPM at all times at home. Patient states she gets lightheaded when she stands up quickly. Pateint states her shortness of breath is about baseline. Patient states yesterday she started with a productive cough with yellow sputum. Patient denies fever, chills, nausea, or vomiting. Patient admits to having diarrhea that started when she was on antibiotics last admission in August. Patient states diarrhea is intermittent. Patient states compliance with medications, sotalol and coumadin. Patient denies active bleeding or blood loss. Patient does admit to having apparent hemorrhoid with occasional blood noted on toilet paper when wiping. Pateint states her PCP manages coumadin. Patient states she takes lasix 80mg po daily. Patient states her pedal edema is slightly worse than normal. She reports compliance with Na+ and fluid restriction. (HECTOR) Past Med Surg Social Fam HX - Past Medical History Attestation: Yes The following information was validated with the patient. Source: patient, old records reviewed Medical history: asthma, atrial fibrillation, COPD, hypertension Psychiatric history: no psych history - Past Surgical History Surgical History: cholecystectomy, hysterectomy - Social History Smoking Status: Former smoker Smokeless Tobacco Status: No Alcohol use: none Drug use: none - Family History Sister Living Status: Hx Family Cardiac Disorders: Yes Hx Family Respiratory Disorders: Yes (copd) Mother Adopted: No Family Member Ethnicity: Non- Twin of Family Member: Yes, Fraternal Living Status: Hx Family Cardiac Disorders: Yes (chf) Hx Family Respiratory Disorders: No Hx Family Cancer: No Hx Family GI Disorders: No Hx Family Endocrine Disorder: No Hx Family Neuromuscular Disorders: No Hx Family Neurologic Disorders: No Hx Family HEENT Disorders: Yes (tumor in rt ear benign at age 60) Hx Family Autoimmune Disorders: No Father Adopted: No Family Member Ethnicity: Non- Twin of Family Member: Yes, Fraternal Living Status: Hx Family Cardiac Disorders: Yes (father, grandfather,self) Hx Family Respiratory Disorders: Yes (self,sister) Hx Family Cancer: No Hx Family GI Disorders: Yes (self) Hx Family Endocrine Disorder: No Hx Family Neuromuscular Disorders: No Hx Family Neurologic Disorders: No Hx Family HEENT Disorders: No Hx Family Autoimmune Disorders: No Medications and Allergies Alendronate Sodium [Fosamax] 70 mg PO QWEEK 10/28/15 [History] Ascorbate Calcium [Vitamin C] 500 mg PO DAILY 10/28/15 [History] Cholecalciferol (Vitamin D3) [Vitamin D3] 1,000 unit PO DAILY 10/28/15 [History] Cyanocobalamin (Vitamin B-12) [Vitamin B-12] 100 mcg PO DAILY 10/28/15 [History] Fluticasone/Salmeterol [Advair 250-50 Diskus] 1 puff IH BID 10/28/15 [History] Potassium Chloride [K-Tab ER] 20 meq PO DAILY 10/28/15 [History] Ropinirole HCl [Requip] 2 mg PO HS 10/28/15 [History] Tiotropium [Spiriva] 1 cap IH HS 10/28/15 [History] Warfarin [Coumadin] 5 mg PO QPM 10/28/15 [History] Dexlansoprazole [Dexilant] 60 mg PO DAILY 07/03/16 [History] Ferrous Sulfate [Iron] 325 mg PO DAILY 07/03/16 [History] Montelukast [Singulair] 10 mg PO DAILY #30 tablet 07/09/16 [Rx] Diltiazem CD (24hr) [Cardizem CD] 180 mg PO DAILY #30 cap.er.24h 08/17/16 [Rx] Sotalol [Betapace] 120 mg PO Q12HR #60 tablet 08/17/16 [Rx] Acetaminophen/Diphenhydramine [Acetaminophen Pm Caplet] 2 tab PO HS 09/09/16 [ History] Furosemide [Lasix] 40 mg PO TID #0 09/10/16 [Rx] Albuterol Sulfate [Proventil Hfa] 2 puff IH PRN PRN 09/14/16 [History] Benzonatate [Tessalon] 200 mg PO TID PRN #30 capsule 09/25/16 [Rx] Calcium Carbonate [Calcium] 500 mg PO BID 09/29/16 [History] Amlodipine [Norvasc] 5 mg PO DAILY #14 tablet 10/02/16 [Rx] Losartan Potassium [Cozaar] 50 mg PO DAILY #14 tab 10/02/16 [Rx] Oxygen 3 l IH AD 10/24/16 [History] Allergies albuterol Allergy (Verified 09/29/16 11:04) Difficulty Breathing aspirin [ASA] Allergy (Verified 09/29/16 11:04) Difficulty Breathing Penicillins Allergy (Verified 09/29/16 11:04) Hives Sulfa (Sulfonamide Antibiotics) Allergy (Verified 09/29/16 11:04) Rash All Systems Review: A 10-system review of systems was performed and is negative for pertinent findings except as documented above in the HPI. - Cardiovascular Cardiovascular: as per HPI, dyspnea on exertion, irregular heart rhythm, palpitations - Respiratory Respiratory: cough Physical Examination Vital Signs Temp Pulse Resp BP Pulse Ox 10/24/16 13:51 73 16 125/57 96 10/24/16 12:54 98 10/24/16 12:49 86 16 128/63 98 10/24/16 11:20 97.5 F L 88 18 128/81 97 Intake and Output 10/23/16 10/24/16 10/24/16 23:59 07:59 15:59 Other: Weight 135.624 kg Patient Weight 10/24/16 23:59 Weight 135.624 kg General: Conversant, No Apparent Distress HEENT: Atraumatic, Normocephaly, Mucus Membranes Moist Neck: No JVD, Normal carotid pulses Cardiac: Other (Irregularly irregular) Lungs: Other (Bilateral lower lobes with diminished breath sounds) Neuro: Alert and responsive, No focal deficits noted Abdomen: Soft, Non-Tender Skin: No rashes noted on visualized skin Musculoskeletal: No Chest Wall Tenderness Extremities: No Clubbing, No Cyanosis, Other (+1 to +2 bilateral lower extremity pitting edema) Results 10/24/16 12:37 10/24/16 12:37 Impressions Chest X-Ray 10/24/16 12:25 IMPRESSION: Stable cardiomegaly and pulmonary artery hypertension with probable chronic pulmonary venous hypertension. Stable mild patchy perihilar and lung base opacities which may be chronic in nature. No lobar pneumonia or overt congestive heart failure. D/ : / 10/24/2016 13:10:47 Yonatan Crowell MD / Antonia Carter Interpreting Provider: Yonatan Crowell MD - Imaging and Cardiology Chest Xray: report reviewed Echo: report reviewed - EKG Interpretation EKG results cardiology: personally reviewed (ECG reviewed with atrial fibrillation, HR 70s, QT 362, QTC 395.) Consult Discharge Plan - Plan Referrals: Lisbet Ray, [employer] [Primary Care Provider] -
[2016-10-24 14:59] LABS: Magnesium 2.1 mg/dL (1.6-2.6)
[2016-10-24] MEDS ORDERED: Naloxone 0.4 MG/ML INJ IVP PRN (15:34)
[2016-10-24] MEDS ORDERED: Benzonatate 100 MG CAPSULE PO PRN (15:37)
[2016-10-24] MEDS ORDERED: NON-FORMULARY MEDICATION 1 EACH EACH (Alendronate Sodium [Fosamax] 70 MG) PO SCH (15:45)
--- NOTE | 2016-10-24 15:46 | Internal Med History&Physical ---
<Kathy Godoy - Last Filed: 10/24/16 18:20> Date of Encounter: 10/24/16 Time of Encounter: 15:46 Assessment and Plan (1) Atrial fibrillation Status: Acute 1 patient has history of paroxysmal atrial fibrillation she did undergo cardiac conversion in August 2016 which was successful and she has been sinus rhythm until Sunday when she began to express palpitations with chest pressure and lightheadedness during postural changes. She has been experiencing a cough with sputum production, which could be contributing to her afib. Presently in atrial fibrillation with a controlled rate between 70 and 80. We will continue with continuous cardiac monitoring 2 cardiology has been counseled today to see the patient sotalol has been increased will continue to monitor patient may need further cardiac intervention 3 continue with patient's sotalol Coumadin as well as Cardizem Qualifiers: Atrial fibrillation type: paroxysmal Qualified Code(s): I48.0 - Paroxysmal atrial fibrillation (2) Chest pain Status: Acute 1 she has been experiencing intermittent chest pressure with exertion suspect this is demand ischemia related to paroxysmal atrial fibrillation, who continue to cycle cardiac troponins 2 monitor EKG as well as continuous cardiac monitoring Qualifiers: Chest pain type: unspecified Qualified Code(s): R07.9 - Chest pain, unspecified (3) Bilateral lower extremity edema Status: Chronic 1 this appears to be chronic we will continue with home Lasix (4) Chronic anticoagulation Status: Chronic 1 continued with Coumadin goal is to maintain INR between 2 and 3 pharmacy is to dose (5) DVT prophylaxis Status: Acute Patient is on Coumadin (6) Acute exacerbation of chronic obstructive airways disease Status: Acute 1 Has hx of COPD and dependent on oxygen at 3L NC. She has been experiencing a new cough with yellow sputum production which started Sunday. She is afebrile no leukocytosis CXR with chronic findings. Suspect exacerbation of COPD. We will continue with oxygen and titrate to maintain spo2 >92% 2 continue with bronchodilators 3 steroid taper 4 continue with singulair Internal Medicine - H&P: HPI Chief complaint: palpitations Admitted From: Emergency Dept Plans for Post Hospital Care: Home History of present illness: Ms. Guevara is a 65 year old female past medical history of paroxysmal atrial fibrillation COPD oxygen dependent asthma hypertension. The patient has has history of paroxysmal atrial fibrillation in August 2016 patient underwent cardioversion which was successful was placed on sotalol as well as Coumadin. She has been in sinus rhythm since August. Sunday morning she got out of bed , began to experience palpitations as well as some chest pressure and weakness. She denies any shortness of breath diaphoresis nausea, however has dizziness with positional change. The chest pressure described as a pounding and then a intermittent pressure which was worse on exertion. The pressure would resolve on its own. She also has been experiencing a cough which started Sunday with yellow sputum production. She denies any fevers chills nausea vomiting. She denies any sick contacts however she has been under personal stress over the past 3 weeks. She continually wear oxygen at 3 L nasal cannula, she states she has been compliant with her medications as well as fluid/salt restrictions. The patient's symptoms continued until today she felt she was back in atrial fibrillation , she notified her family physician and cardiology who advised her to go to ER for evaluation. According to ER records was noted the patient EKG did reveal atrial fibrillation with a rate of 70-80. Lab work was unremarkable cardiac troponin was 0.01 INR was 3.8. Cardiology was consulted and see patient in the ER. Patient has been admitted for further workup and evaluation. Presently the patient denies any chest pressure she does not appear to be any respiratory distress upon auscultation patient's lung sounds are clear she has irregular heart rhythm with no rubs gallops or murmurs. She does have +1 edema to lower extremities which she states is chronic. At this time patient is hemodynamically stable and review this case with who agrees with plan Past Med Surg Social Fam HX - Past Medical History Medical history: asthma, atrial fibrillation, COPD, hypertension Psychiatric history: no psych history - Past Surgical History Surgical History: cholecystectomy, hysterectomy - Social History Smoking Status: Former smoker Smokeless Tobacco Status: No Alcohol use: none Drug use: none - Family History Sister Living Status: Hx Family Cardiac Disorders: Yes Hx Family Respiratory Disorders: Yes (copd) Mother Adopted: No Family Member Ethnicity: Non- Twin of Family Member: Yes, Fraternal Living Status: Hx Family Cardiac Disorders: Yes (chf) Hx Family Respiratory Disorders: No Hx Family Cancer: No Hx Family GI Disorders: No Hx Family Endocrine Disorder: No Hx Family Neuromuscular Disorders: No Hx Family Neurologic Disorders: No Hx Family HEENT Disorders: Yes (tumor in rt ear benign at age 60) Hx Family Autoimmune Disorders: No Father Adopted: No Family Member Ethnicity: Non- Twin of Family Member: Yes, Fraternal Living Status: Hx Family Cardiac Disorders: Yes (father, grandfather,self) Hx Family Respiratory Disorders: Yes (self,sister) Hx Family Cancer: No Hx Family GI Disorders: Yes (self) Hx Family Endocrine Disorder: No Hx Family Neuromuscular Disorders: No Hx Family Neurologic Disorders: No Hx Family HEENT Disorders: No Hx Family Autoimmune Disorders: No Internal Medicine - H&P: Meds Alendronate Sodium [Fosamax] 70 mg PO QWEEK 10/28/15 [History] Ascorbate Calcium [Vitamin C] 500 mg PO DAILY 10/28/15 [History] Cholecalciferol (Vitamin D3) [Vitamin D3] 1,000 unit PO DAILY 10/28/15 [History] Cyanocobalamin (Vitamin B-12) [Vitamin B-12] 100 mcg PO DAILY 10/28/15 [History] Fluticasone/Salmeterol [Advair 250-50 Diskus] 1 puff IH BID 10/28/15 [History] Potassium Chloride [K-Tab ER] 20 meq PO DAILY 10/28/15 [History] Ropinirole HCl [Requip] 2 mg PO HS 10/28/15 [History] Tiotropium [Spiriva] 1 cap IH HS 10/28/15 [History] Warfarin [Coumadin] 5 mg PO QPM 10/28/15 [History] Dexlansoprazole [Dexilant] 60 mg PO DAILY 07/03/16 [History] Ferrous Sulfate [Iron] 325 mg PO DAILY 07/03/16 [History] Montelukast [Singulair] 10 mg PO DAILY #30 tablet 07/09/16 [Rx] Diltiazem CD (24hr) [Cardizem CD] 180 mg PO DAILY #30 cap.er.24h 08/17/16 [Rx] Acetaminophen/Diphenhydramine [Acetaminophen Pm Caplet] 2 tab PO HS 09/09/16 [ History] Furosemide [Lasix] 40 mg PO TID #0 09/10/16 [Rx] Albuterol Sulfate [Proventil Hfa] 2 puff IH PRN PRN 09/14/16 [History] Benzonatate [Tessalon] 200 mg PO TID PRN #30 capsule 09/25/16 [Rx] Calcium Carbonate [Calcium] 500 mg PO BID 09/29/16 [History] Amlodipine [Norvasc] 5 mg PO DAILY #14 tablet 10/02/16 [Rx] Losartan Potassium [Cozaar] 50 mg PO DAILY #14 tab 10/02/16 [Rx] Oxygen 3 l IH AD 10/24/16 [History] Sotalol [Betapace] 160 mg PO Q12HR #120 tablet 10/27/16 [Rx] Allergies albuterol Allergy (Verified 09/29/16 11:04) Difficulty Breathing aspirin [ASA] Allergy (Verified 09/29/16 11:04) Difficulty Breathing Penicillins Allergy (Verified 09/29/16 11:04) Hives Sulfa (Sulfonamide Antibiotics) Allergy (Verified 09/29/16 11:04) Rash All Systems PM: A 10-system review of systems was performed and is negative for pertinent findings except as documented above in the HPI. - Constitutional Constitutional: weakness - Cardiovascular Cardiovascular ROS IM: chest pain, edema, irregular heart rhythm, lightheadedness, palpitations - Respiratory Respiratory: cough, change in phlegm color - Gastrointestinal Gastrointestinal: no abdominal pain, no diarrhea, no hematemesis, no hematochezia, no melena, no nausea, no vomiting - Genitourinary Genitourinary: no change in urinary stream, no dysuria, no flank pain, no hematuria - Musculoskeletal Musculoskeletal ROS IM: no numbness, no tingling - Neurological Neurological ROS: no confusion, no convulsions, no focal weakness, no numbness, no tingling, no tremor(s) - Constitutional Vitals: Temp Pulse Resp BP Pulse Ox 97.6 F 85 16 137/84 92 L 10/24/16 15:27 10/24/16 15:27 10/24/16 15:27 10/24/16 15:27 10/24/16 15:27 General appearance: Present: A&O X 3, morbidly obese, answers questions appropriately - Head Head exam: Present: atraumatic, normocephalic - Eye Eye exam: Present: PERRL, conjuntiva pink, sclera anicteric Pupils: Present: PERRL - Respiratory Respiratory exam: Present: CTAB. Absent: accessory muscle use, rales, rhonchi, wheezes - Cardiovascular Cardiovascular exam: Present: irregular rhythm, +S1, +S2. Absent: diastolic murmur, gallop, rubs, systolic murmur - GI/Abdominal GI/Abdominal exam: Present: normal bowel sounds, soft, no peritoneal signs. Absent: distended, tenderness - Extremities Exam Extremities exam: Present: pedal edema, warm, radial pulses palpable and symetrical. Absent: calf tenderness, cyanotic - Neurological Exam Neurological exam: Present: CN II-XII intact, oriented X3, no focal deficits. Absent: pronater drift, facial droop, speech deficit - Skin Skin exam: Present: dry, intact Internal Med - H&P Results - Labs CBC & Chem 7: 10/24/16 12:37 10/24/16 12:37 - Diagnostic Studies Chest x-ray Additional comments: Chest X-Ray 10/24/16 12:25 IMPRESSION: Stable cardiomegaly and pulmonary artery hypertension with probable chronic pulmonary venous hypertension. Stable mild patchy perihilar and lung base opacities which may be chronic in nature. No lobar pneumonia or overt congestive heart failure. D/ / 10/24/2016 13:10:47 Yonatan Crowell MD / Antonia Carter Interpreting Provider: Yonatan Crowell MD <Mindy Manuel E - Last Filed: 11/03/16 22:18> Date of Encounter: 11/03/16 Internal Medicine - H&P: HPI History of present illness: Ms. Guevara is a 65 year old female All Systems PM: A 10-system review of systems was performed and is negative for pertinent findings except as documented above in the HPI. - Constitutional Vitals: Temp Pulse Resp BP Pulse Ox 98.1 F 81 16 143/81 92 L 10/27/16 14:58 10/27/16 14:58 10/27/16 14:58 10/27/16 14:58 10/27/16 14:58 Internal Med - H&P Results - Labs CBC & Chem 7: 10/25/16 00:54 10/27/16 02:36 - Attending Attestation Patient seen and examined, agree with assessment and plan of MANOLO Godoy. Patient with history of atrial fibrillation on sotalol, presents back in atrial fibrillation - very symptomatic. Cardiology evaluated in eR and recommended increase in sotalol, appreciate assistance.
[2016-10-24] MEDS ORDERED: Warfarin perPT PO PRN (18:00)
[2016-10-24] MEDS: predniSONE 20 MG TABLET PO SCH (18:54)
--- NOTE | 2016-10-24 19:55 | Electrocardiograph Report ---
[facility] Test Date: 2016-10-24 Pat Name: Alyssa Guevara Department: 102 Room: 3B14 Gender: F Head Grinder: : [id number] Requested By: Sharla See Order Number: [id number] Reading MD: Gaurav Cisneros DO Measurements Intervals [place] Rate: 78 P: [place]: 0 QRS: 28 QRSD: 116 T: 22 QT: 362 QTc: 395 Interpretive Statements ATRIAL FIBRILLATION SEPTAL MYOCARDIAL INFARCTION [40+ ms Q WAVE IN V1/V2], PROBABLY OLD WARNING: DATA QUALITY MAY AFFECT INTERPRETATION Electronically Signed On 10-24-2016 19:54:13 EDT by Gaurav Cisneros DO
[2016-10-24] MEDS: rOPINIRole 1 MG TABLET PO SCH (21:40)
[2016-10-24] MEDS ORDERED: Budesonide/Formoterol 80/4.5 MDI IH SCH (22:00)
[2016-10-24] MEDS: Acetaminophen 325 MG TABLET PO PRN (22:31)
[2016-10-25 01:37] LABS: Eosinophils % 0.5 %; Monocytes % 3.1 %; Platelet Count 151 K/mcL (140-400)
[2016-10-25 01:39] LABS: Basophils % 0.3 %; Hematocrit 39.5 % (35.3-44.9); Hemoglobin 11.6 g/dL (11.5-15.4); Immature Granulocytes % 0.9 % (0-4); Lymphocytes # 0.8 K/mcL (0.6-4.6); Lymphocytes % 11.7 %; Mean Corpuscular HGB Conc 29.4 g/dL (31.6-35.5); Mean Corpuscular Hemoglobin 26.6 pg (28.0-33.3); Mean Corpuscular Volume 90.6 fL (83.0-100.0); Mean Platelet Volume 12.4 fL (9.4-12.4); Monocytes # 0.2 K/mcL (0.0-1.3); Neutrophils # 5.4 K/mcL (1.6-8.9); Red Blood Count 4.36 M/mcL (3.82-4.97); Red Cell Distribution Width 15.4 % (11.5-14.5); Segmented Neutrophils % 83.5 %
[2016-10-25 01:45] LABS: INR 3.5; Prothrombin Time 39.5 Seconds (9.4-12.1)
[2016-10-25 02:01] LABS: Hypochromasia Present (Not Present); Large Platelets Present (Not Present); Platelet Estimate Normal (Normal)
[2016-10-25 02:07] LABS: BUN/Creatinine Ratio 31 (6-26); Blood Urea Nitrogen 25 mg/dL (7-20); Calcium 9.5 mg/dL (8.6-10.8); Carbon Dioxide 30 mEq/L (19-29); Chloride 101 mEq/L (98-109); Glucose 144 mg/dL (70-99); Osmolality,Calculated 295 (280-300); Potassium 5.1 mEq/L (3.5-4.5); Sodium 139 mEq/L (136-145); eGFR For African Americans > 60 (> 60); eGFR For Non-African Americans > 60 (> 60)
[2016-10-25] MEDS: Tiotropium 18 MCG inhalation IH SCH (08:29)
[2016-10-25] MEDS: Cholecalciferol (D-3) 1,000 UNIT TABLET PO SCH (09:56)
[2016-10-25] MEDS: Ascorbic Acid 500 MG TABLET PO SCH (09:56)
--- NOTE | 2016-10-25 09:56 | Cardiology Progress Note ---
Date of Encounter: 10/25/16 Time of Encounter: 09:00 Assessment and Plan (1) Acute exacerbation of chronic obstructive airways disease Current Visit: Yes Status: Acute Per cardiology: -Known COPD, -On O2 at 3lpm at home at all times. -Currently on spiriva and O2. -May be contributing to a.fib -Can consider adding nebulizer treatments. -Management per primary service. (HECTOR) (2) Atrial fibrillation Current Visit: Yes Status: Acute Per cardiology: -Known history of atrial fibrillation status post DC cardioversion August 2016. -Had been SR patient states until Sunday. -ECG 10/24/16 with atrial fibrillation, HR 70s, QT 362, QTC 395. -ECG today atrial fibrillation with Qt 359, QTC 407. -On sotalol, coumadin, and cardizem. States compliance with medications. -INR 3.8 on admission. Denies active bleeding or blood loss. CUrrent INR 3.5. -Troponin negative x3. -Sotalol increased to 160mg po Q12 hours. Has received 2 doses of increased sotalol dosing. -Continue coumadin per pharmacy. -Will continue to monitor. (HECTOR) Qualifiers: Atrial fibrillation type: paroxysmal Qualified Code(s): I48.0 - Paroxysmal atrial fibrillation (3) Atypical chest pain Current Visit: Yes Status: Acute Per cardiology: -Patient states chest pain/thumping. Describes more as palpitations. -Troponin negative x3. -ECG with atrial fibrillation. -Echo 08/13/16 with LVEF 60%, normal left ventricular size and function, moderate concentric hypertrophy of left ventricle, RV mild dilated with normal function, anterior and basal anterior hearn not visualized, all other wall segments showed normal motion. -Currently chest pain free. -Do not suspect ACS. -Reports "normal heart cath in [place] about 3 years ago". -Will continue to monitor. (HECTOR) (4) Edema Current Visit: No Status: Chronic Per cardiology: -+1 to +2 bilateral lower extremity pitting edema on 10/24/16. Edema improvwed and non-pitting today. -Patient states edema is slightly worse than normal. -Chest x-ray with no overt heart failure. -Patient states she takes lasix 80mg po daily at home. -Last weight 316 lbs in [facility] 09/2016, now 298 lbs. -K today 5.1. -Recommend continuing home dose of lasix. -Can consider decreasing potassium supplement. -Will continue to monitor. (HECTOR) Qualifiers: Edema type: localized Qualified Code(s): R60.0 - Localized edema Discussion w patient/family: The assessment and plan as outlined above was discussed with the patient who expressed understanding and agreement. All questions were answered. Thank you for involving us in the care of your patient. Please call with any questions. Patient seen and examined with MANOLO Barajas Discussed and reviewed with . Subjective Principal diagnosis: atrial fibrillation Interval history: Ms. Guevara is a 65 year old female with a relevant past medical history of COPD, O2 dependent, asthma, HTN, atrial fibrillation status post ZOILA and cardioverion August 2016 and increased dose sotalol to 120mg PO q12hrs. Patient states she was doing well at home until Sunday she knew she was back in a.fib. Patient states she got up out of bed and was getting into the shower when she noticed her heart was pounding. She states that she has had increased stress at home with her [id number] moving in. She also states that she has not been sleeping well. States she is only sleeping 4-5 hours per night (normally 10 hrs ) with the increased stress at home. Patient states she wears O2 at 3LPM at all times at home. Patient states she gets lightheaded when she stands up quickly. Pateint states her shortness of breath is about baseline. Patient states yesterday she started with a productive cough with yellow sputum. Patient denies fever, chills, nausea, or vomiting. Patient admits to having diarrhea that started when she was on antibiotics last admission in August. Patient states diarrhea is intermittent. Patient states compliance with medications, sotalol and coumadin. Patient denies active bleeding or blood loss. Patient does admit to having apparent hemorrhoid with occasional blood noted on toilet paper when wiping. Pateint states her PCP manages coumadin. Patient states she takes lasix 80mg po daily. Patient states her pedal edema is slightly worse than normal. She reports compliance with Na+ and fluid restriction. Patient states she can tell she is still in atrial fibrillation. States today her breathing is better. (HECTOR) Objective Vital Signs, Last 4 Hours Temp Pulse Resp BP Pulse Ox 10/25/16 06:56 98.1 F 102 17 137/83 92 L General: Conversant, No Apparent Distress HEENT: Atraumatic, Normocephaly, Mucus Membranes Moist Neck: No JVD, Normal carotid pulses Cardiac: Other (Irregularly irregular) Lungs: Other (Bilateral lower lobes with diminished breath sounds) Neuro: Alert and responsive, No focal deficits noted Abdomen: Soft, Non-Tender Skin: No rashes noted on visualized skin Musculoskeletal: No Chest Wall Tenderness Extremities: No Clubbing, No Cyanosis, Normal Pulses, Other (Bilateral lower extremities with non-pitting edema) Results 10/25/16 00:54 10/25/16 00:54 Lab Results Im Active Medications Acetaminophen (Tylenol) 650 mg PO Q6HR PRN PRN Reason: Mild Pain (1-3) Stop: 04/25/17 15:35 Last Admin: 10/24/16 22:31 Dose: 650 mg Amlodipine Besylate (Norvasc) 5 mg PO DAILY TIM PRN Reason: Protocol Stop: 04/26/17 09:01 Ascorbic Acid (Vitamin C) 500 mg PO DAILY TIM Stop: 04/26/17 09:01 Benzonatate (Tessalon) 200 mg PO TID PRN PRN Reason: Cough Calcium Carbonate (Tums) 500 mg PO BID TIM Stop: 04/25/17 21:01 Last Admin: 10/24/16 21:40 Dose: 500 mg Diltiazem HCl (Cardizem Cd) 180 mg PO DAILY TIM Stop: 04/26/17 09:01 Ferrous Sulfate (Ferrous Sulfate) 325 mg PO DAILY TIM Stop: 04/26/17 09:01 Furosemide (Lasix) 80 mg PO DAILY TIM Stop: 04/26/17 09:01 Losartan Potassium (Cozaar) 50 mg PO DAILY TIM Stop: 04/26/17 09:01 Montelukast Sodium (Singulair) 10 mg PO DAILY TIM Stop: 04/26/17 09:01 Naloxone HCl (Narcan) 0.4 mg IVP Q2MIN PRN PRN Reason: Opioid Reversal Stop: 04/25/17 15:35 Omeprazole (Prilosec) 20 mg PO DAILY TIM Stop: 04/26/17 09:01 Pharmacy Profile Note (Patient Taking Own Medication) 0 each PO DAILY TIM Stop: 04/26/17 09:01 Potassium Chloride (Potassium Chloride) 20 meq PO DAILY TIM Stop: 04/26/17 09:01 Prednisone (Prednisone) 40 mg PO DAILY TIM Stop: 04/25/17 18:16 Last Admin: 10/24/16 18:54 Dose: 40 mg Ropinirole HCl (Requip) 2 mg PO HS TIM Stop: 04/25/17 21:01 Last Admin: 10/24/16 21:40 Dose: 2 mg Sotalol HCl (Betapace) 160 mg PO Q12HR TIM Stop: 04/25/17 18:01 Last Admin: 10/25/16 05:55 Dose: 160 mg Tiotropium [place] (Spiriva) 18 mcg IH QAM TIM PRN Reason: Protocol Stop: 04/26/17 09:01 Last Admin: 10/25/16 08:29 Dose: Not Given Vitamin D (Vitamin D) 1,000 unit PO DAILY [facility] Stop: 04/26/17 09:01 Warfarin Sodium (Coumadin Perpt) 1 each PO DAILY@1800 PRN PRN Reason: SEE COMMENTS Stop: 04/25/17 18:01 pressions Chest X-Ray 10/24/16 12:25 IMPRESSION: Stable cardiomegaly and pulmonary artery hypertension with probable chronic pulmonary venous hypertension. Stable mild patchy perihilar and lung base opacities which may be chronic in nature. No lobar pneumonia or overt congestive heart failure. D/ / 10/24/2016 13:10:47 Yonatan Crowell MD / Antonia Carter Interpreting Provider: Yonatan Crowell MD Laboratory Tests 10/24/16 10/24/16 10/24/16 12:37 12:37 18:22 Hgb Hct Potassium 4.3 Creatinine Magnesium 2.1 Troponin I 0.01 0.01 TSH 2.522 10/25/16 10/25/16 10/25/16 00:54 00:54 00:54 Hgb 11.6 Hct 39.5 Potassium 5.1 H Creatinine 0.80 Magnesium Troponin I 0.01 TSH - Imaging and Cardiology Chest Xray: report reviewed - EKG Interpretation EKG results cardiology: personally reviewed (ECG reviewed today with atrial fibrillation. QT today 359, QTC 407.), other (Telemetry reviewed with average HR 93, atrial fibrillation. Occasional PVCs. Currently atrial fibrillation, HR 86.) Consult Discharge Plan - Plan Referrals: Lisbet Ray, MANOLO [Primary Care Provider] -
[2016-10-25] MEDS: predniSONE 20 MG TABLET PO SCH (09:57)
[2016-10-25] MEDS: Furosemide 40 MG TABLET PO SCH (09:57)
[2016-10-25] MEDS: amLODIPine 5 MG TABLET PO SCH (09:57)
[2016-10-25] MEDS: Diltiazem CD (24hr) 180 MG CAPSULE PO SCH (09:57)
[2016-10-25] MEDS: (Cyanocobalamin (Vitamin B-12) [Vitamin B-12] 100 MCG PO SCH (09:59)
--- NOTE | 2016-10-25 13:14 | Internal Med Progress Note ---
Date of Encounter: 10/25/16 Time of Encounter: 09:15 - Assessment and plan (1) Chest pain Current Visit: No Status: Acute Assessment and plan: Patient currently denies chest pain. She states she had a bout of chest pressure and palpitations overnight. Cardiology on board and have doubled her sotalol dosage. Heart rate this morning was in the 100s during my examination with her. We will continue to monitor for 5 doses of sotalol. Appreciate cardiology recommendations. Qualifiers: Chest pain type: unspecified Qualified Code(s): R07.9 - Chest pain, unspecified (2) Palpitations Current Visit: No Status: Acute (3) Atrial fibrillation Current Visit: No Status: Chronic Qualifiers: Atrial fibrillation type: paroxysmal Qualified Code(s): I48.0 - Paroxysmal atrial fibrillation (4) Acute on chronic respiratory failure with hypoxemia Current Visit: No Status: Chronic Assessment and plan: No increased need for oxygen at this time, 3 L at home, 3 L here. (5) Diastolic CHF Current Visit: No Status: Acute Assessment and plan: Patient is stating she feels as if her feet are slightly more swollen than usual today. 2+ pitting edema noted bilaterally. She is on furosemide 40 mg 3 times a day at home, currently on 80 mg daily here. We will continue fluid and sodium restricted diet and will continue to monitor. She denies shortness of breath above her norm. Acute on chronic diastolic heart failure with preserved ejection fraction. Cardiology on board. Qualifiers: Congestive heart failure chronicity: acute on chronic Qualified Code(s): I50.33 - Acute on chronic diastolic (congestive) heart failure (6) COPD (chronic obstructive pulmonary disease) Current Visit: No Status: Chronic Assessment and plan: No acute exacerbation. Patient denies shortness of breath above her norm. Chest x-ray unremarkable for acute processes. ITS Impressions Chest X-Ray 10/24/16 12:25 IMPRESSION: Stable cardiomegaly and pulmonary artery hypertension with probable chronic pulmonary venous hypertension. Stable mild patchy perihilar and lung base opacities which may be chronic in nature. No lobar pneumonia or overt congestive heart failure. D/ : / 10/24/2016 13:10:47 Yonatan Crowell MD / Antonia Carter Interpreting Provider: Yonatan Crowell MD Qualifiers: COPD type: emphysema Emphysema type: unspecified Qualified Code(s): J43.9 - Emphysema, unspecified (7) Hypertension Current Visit: No Status: Chronic Assessment and plan: Controlled. Her home amlodipine 5 mg has been continued. She is also on furosemide. (8) Chronic anticoagulation Current Visit: No Status: Chronic Assessment and plan: INR slightly supratherapeutic at 3.5 however decreased from yesterday. No signs of active bleeding, we will continue to trend. (9) GERD (gastroesophageal reflux disease) Current Visit: No Status: Chronic Assessment and plan: Denies current symptoms (10) DVT prophylaxis Current Visit: No Status: Acute Assessment and plan: On Coumadin (11) Bilateral lower extremity edema Current Visit: No Status: Chronic Assessment and plan: Acute on chronic. We will continue to slowly diurese. (12) Morbid obesity with BMI of 50.0-59.9, adult Current Visit: No Status: Chronic - Subjective Interval history: Patient seen and examined. On examination, patient is sitting upright in bed watching television. Patient currently denies pain. She stated that she had some chest pressure overnight but has been stable since. She states her feet feel slightly more swollen than usual. She states she is eating well. - Constitutional Vitals: Temp Pulse Resp BP Pulse Ox 97.5 F L 92 16 135/85 94 L 10/25/16 11:12 10/25/16 11:12 10/25/16 11:12 10/25/16 11:12 10/25/16 11:12 General appearance: Present: A&O X 3, morbidly obese, pleasant, no acute distress, answers questions appropriately - Head Head exam: Present: atraumatic, normocephalic - Eye Eye exam: Present: PERRL, conjuntiva pink, sclera anicteric Pupils: Present: PERRL - Neck Neck exam general surgery: Present: supple, trachea midline. Absent: lymphadenopathy - Respiratory Respiratory exam: Present: decreased breath sounds. Absent: accessory muscle use, rales, respiratory distress, rhonchi, wheezes - Cardiovascular Cardiovascular exam: Present: irregular rhythm, +S1, +S2, tachycardia. Absent: diastolic murmur, gallop, rubs, systolic murmur - GI/Abdominal GI/Abdominal exam: Present: normal bowel sounds, soft, no peritoneal signs. Absent: distended, tenderness - Extremities Exam Extremities exam: Present: pedal edema (2+ bilaterally), warm, radial pulses palpable and symetrical. Absent: calf tenderness, cyanotic - Neurological Exam Neurological exam: Present: alert, CN II-XII intact, oriented X3, no focal deficits, strengths equal and symetr throughout. Absent: pronater drift, facial droop, speech deficit - Skin Skin exam: Present: dry, intact, normal color, warm Internal Medicine: Result - Labs CBC & Chem 7: 10/25/16 00:54 10/25/16 00:54 Labs: Short CBC 10/25/16 Range/Units 00:54 WBC 6.5 (4.3-11.1) K/mcL Hgb 11.6 (11.5-15.4) g/dL Hct 39.5 (35.3-44.9) % Plt Count 151 (140-400) K/mcL Neutrophils # 5.4 (1.6-8.9) K/mcL BMP 10/25/16 00:54 Sodium 139 Potassium 5.1 H Chloride 101 Carbon Dioxide 30 H BUN 25 H Creatinine 0.80 Glucose 144 H Calcium 9.5 Cardiac Enzymes 10/24/16 10/25/16 Range/Units 18:22 00:54 Troponin I 0.01 0.01 (0-0.03) ng/mL - ABG Interpretation ABG results: PT/INR, D-dimer PT 39.5 Seconds (9.4-12.1) H 10/25/16 00:54 Consult Discharge Plan - Plan Referrals: Lisbet Ray CNP [Primary Care Provider] -
[2016-10-25] MEDS: rOPINIRole 1 MG TABLET PO SCH (21:14)
[2016-10-25] MEDS ORDERED: Tetrahydrozoline 15 ML BOTTLE BOTH EYES PRN (23:43)
[2016-10-26] MEDS ORDERED: Melatonin 3 MG TABLET PO ONE ×2 (00:17→23:43)
[2016-10-26 04:28] LABS: INR 2.6; Prothrombin Time 28.9 Seconds (9.4-12.1)
[2016-10-26 04:52] LABS: BUN/Creatinine Ratio 33 (6-26); Blood Urea Nitrogen 26 mg/dL (7-20); Carbon Dioxide 33 mEq/L (19-29); Chloride 100 mEq/L (98-109); Glucose 130 mg/dL (70-99); Osmolality,Calculated 301 (280-300); Potassium 4.1 mEq/L (3.5-4.5); Sodium 142 mEq/L (136-145); eGFR For African Americans > 60 (> 60); eGFR For Non-African Americans > 60 (> 60)
--- NOTE | 2016-10-26 06:35 | Electrocardiograph Report ---
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
[2016-10-26] MEDS: Tiotropium 18 MCG inhalation IH SCH (07:44)
--- NOTE | 2016-10-26 09:00 | Cardiology Progress Note ---
Date of Encounter: 10/26/16 Time of Encounter: 08:30 Assessment and Plan (1) Atrial fibrillation Current Visit: No Status: Chronic Per cardiology: -ECG 10/24/16 with atrial fibrillation, HR 70s, QT 362, QTC 395. -ECG 10/25/16 with atrial fibrillation with Qt 359, QTC 407. -ECG today with atrial fibrillation HR 86. Qt 394, QTC 437. -On sotalol, coumadin, and cartia. States compliance with medications. -INR 3.8 on admission. Denies active bleeding or blood loss. Current INR 2.6 -Troponin negative x3. -Sotalol increased to 160mg po Q12 hours on 10/24. Has received 4 doses. Will receive 5th dose tonight. -Continue coumadin per pharmacy. -Plan for cardioversion tomorrow morining if still a.fib overnight. Risks and benefits of cardioversion explained to patient and patient in agreement for cardioversion if needed. INR therapeutic for past 1 month. -NPO after midnight. -Will continue to monitor. (HECTOR) Qualifiers: Atrial fibrillation type: paroxysmal Qualified Code(s): I48.0 - Paroxysmal atrial fibrillation (2) COPD (chronic obstructive pulmonary disease) Current Visit: No Status: Chronic Per cardiology: -Known COPD, -On O2 at 3lpm at home at all times. -Currently on spiriva and O2. -May be contributing to a.fib -Can consider adding nebulizer treatments. -Management per primary service. (HECTOR) Qualifiers: COPD type: emphysema Emphysema type: unspecified Qualified Code(s): J43.9 - Emphysema, unspecified (3) Atypical chest pain Current Visit: Yes Status: Acute Per cardiology: -Patient states chest pain/thumping. Describes more as palpitations. -Troponin negative x3. -ECG with atrial fibrillation. -Echo 08/13/16 with LVEF 60%, normal left ventricular size and function, moderate concentric hypertrophy of left ventricle, RV mild dilated with normal function, anterior and basal anterior hearn not visualized, all other wall segments showed normal motion. -Currently chest pain free. -Do not suspect ACS. -Reports "normal heart cath in [place] about 3 years ago". -Will continue to monitor. (HECTOR) (4) Edema Current Visit: No Status: Chronic Per cardiology: -+1 to +2 bilateral lower extremity pitting edema on 10/24/16. Edema improved and non-pitting today. -Patient states edema is slightly worse than normal. -Chest x-ray with no overt heart failure. -Patient states she takes lasix 80mg po daily at home. -Last weight 316 lbs in [facility] 09/2016, now 298 lbs. -K today 4.1. Potassium stopped yesterday due to K 5.1. -Recommend continuing home dose of lasix. -Will continue to monitor. (HECTOR) Qualifiers: Edema type: localized Qualified Code(s): R60.0 - Localized edema Discussion w patient/family: The assessment and plan as outlined above was discussed with the patient who expressed understanding and agreement. All questions were answered. Thank you for involving us in the care of your patient. Please call with any questions. Pateint seen and examined with MANOLO Barajas Discussed and reviewed with . Subjective Principal diagnosis: atrial fibrillation Interval history: Ms. Guevara is a 65 year old female with a relevant past medical history of COPD, O2 dependent, asthma, HTN, atrial fibrillation status post ZOILA and cardioverion August 2016 and increased dose sotalol to 120mg PO q12hrs. Patient states she was doing well at home until Sunday she knew she was back in a.fib. Patient states she got up out of bed and was getting into the shower when she noticed her heart was pounding. She states that she has had increased stress at home with her [id number] moving in. Today patient states she can tell she is still in a.fib. States her breathing is about baseline. (HECTOR) Objective Vital Signs, Last 4 Hours Temp Pulse Resp BP Pulse Ox 10/26/16 06:59 97.6 F 78 15 141/79 97 General: Conversant, No Apparent Distress HEENT: Atraumatic, Normocephaly, Mucus Membranes Moist Neck: No JVD, Normal carotid pulses Cardiac: Other (Irregularly irregular) Lungs: Other (Diminished breath sounds throughout) Neuro: Alert and responsive, No focal deficits noted Abdomen: Soft, Non-Tender Skin: No rashes noted on visualized skin Musculoskeletal: No Chest Wall Tenderness Extremities: No Clubbing, No Cyanosis, Normal Pulses, Other (Mild bilateral non- pitting pedal edema.) Results 10/25/16 00:54 10/26/16 03:23 Lab Results Active Medications Acetaminophen (Tylenol) 650 mg PO Q6HR PRN PRN Reason: Mild Pain (1-3) Stop: 04/25/17 15:35 Last Admin: 10/24/16 22:31 Dose: 650 mg Amlodipine Besylate (Norvasc) 5 mg PO DAILY TIM PRN Reason: Protocol Stop: 04/26/17 09:01 Last Admin: 10/25/16 09:57 Dose: 5 mg Ascorbic Acid (Vitamin C) 500 mg PO DAILY TIM Stop: 04/26/17 09:01 Last Admin: 10/25/16 09:56 Dose: 500 mg Benzonatate (Tessalon) 200 mg PO TID PRN PRN Reason: Cough Calcium Carbonate (Tums) 500 mg PO BID [facility] Stop: 04/25/17 21:01 Last Admin: 10/25/16 21:14 Dose: 500 mg Diltiazem HCl (Cardizem Cd) 180 mg PO DAILY TIM Stop: 04/26/17 09:01 Last Admin: 10/25/16 09:57 Dose: 180 mg Ferrous Sulfate (Ferrous Sulfate) 325 mg PO DAILY [facility] Stop: 04/26/17 09:01 Last Admin: 10/25/16 09:56 Dose: 325 mg Furosemide (Lasix) 80 mg PO DAILY [facility] Stop: 04/26/17 09:01 Last Admin: 10/25/16 09:57 Dose: 80 mg Losartan Potassium (Cozaar) 50 mg PO DAILY [facility] Stop: 04/26/17 09:01 Montelukast Sodium (Singulair) 10 mg PO DAILY [facility] Stop: 04/26/17 09:01 Last Admin: 10/25/16 09:57 Dose: 10 mg Naloxone HCl (Narcan) 0.4 mg IVP Q2MIN PRN PRN Reason: Opioid Reversal Stop: 04/25/17 15:35 Omeprazole (Prilosec) 20 mg PO DAILY [facility] Stop: 04/26/17 09:01 Last Admin: 10/25/16 09:56 Dose: 20 mg Pharmacy Profile Note (Patient Taking Own Medication) 0 each PO DAILY [facility] Stop: 04/26/17 09:01 Last Admin: 10/25/16 09:59 Dose: Not Given Prednisone (Prednisone) 40 mg PO DAILY [facility] Stop: 04/25/17 18:16 Last Admin: 10/25/16 09:57 Dose: 40 mg Ropinirole HCl (Requip) 2 mg PO HS [facility] Stop: 04/25/17 21:01 Last Admin: 10/25/16 21:14 Dose: 2 mg Sotalol HCl (Betapace) 160 mg PO Q12HR [facility] Stop: 04/25/17 18:01 Last Admin: 10/26/16 06:06 Dose: 160 mg Tetrahydrozoline HCl ([place]) 1 drop BOTH EYES QID PRN PRN Reason: Itching Stop: 04/26/17 23:44 Last Admin: 10/26/16 00:25 Dose: 1 drop Tiotropium [place] (Spiriva) 18 mcg IH QAM TMI PRN Reason: Protocol Stop: 04/26/17 09:01 Last Admin: 10/26/16 07:44 Dose: 18 mcg Vitamin D (Vitamin D) 1,000 unit PO DAILY [facility] Stop: 04/26/17 09:01 Last Admin: 10/25/16 09:56 Dose: 1,000 unit Warfarin Sodium (Coumadin Perpt) 1 each PO DAILY@1800 PRN PRN Reason: SEE COMMENTS Stop: 04/25/17 18:01 Laboratory Tests 10/24/16 10/24/16 10/24/16 12:37 12:37 12:37 Hgb 11.0 L INR 3.8 Potassium Creatinine 0.79 Troponin I TSH 2.522 10/24/16 10/26/16 10/26/16 12:37 03:23 03:23 Hgb INR 2.6 Potassium 4.1 D Creatinine Troponin I 0.01 TSH Laboratory Tests 09/09/16 09/29/16 09/30/16 10:26 16:41 03:09 INR 2.3 2.9 2.7 10/01/16 10/02/16 10/24/16 04:17 03:57 12:37 INR 3.4 3.5 3.8 10/25/16 10/26/16 00:54 03:23 INR 3.5 2.6 - Imaging and Cardiology Chest Xray: report reviewed - EKG Interpretation EKG results cardiology: personally reviewed (ECG 10/26/16 with atrial fibrillation, HR 86. QT 394, QTC 437.), other (Telemetry reviewed with average HR previous 12 hours 84, atrial fibrillation. Longest pause noted at 2.2 seconds. Currently atrial fibrillation at 68 beats/min.) Consult Discharge Plan - Plan Referrals: Lisbet Ray CNP [Primary Care Provider] - 11/01/16 10:30 am
[2016-10-26] MEDS: Diltiazem CD (24hr) 180 MG CAPSULE PO SCH (09:30)
[2016-10-26] MEDS: amLODIPine 5 MG TABLET PO SCH (09:31)
[2016-10-26] MEDS: Ascorbic Acid 500 MG TABLET PO SCH (09:31)
[2016-10-26] MEDS: predniSONE 20 MG TABLET PO SCH (09:31)
[2016-10-26] MEDS: Cholecalciferol (D-3) 1,000 UNIT TABLET PO SCH (09:31)
[2016-10-26] MEDS: Furosemide 40 MG TABLET PO SCH (09:31)
[2016-10-26] MEDS: (Cyanocobalamin (Vitamin B-12) [Vitamin B-12] 100 MCG PO SCH (09:32)
--- NOTE | 2016-10-26 12:09 | Internal Med Progress Note ---
Date of Encounter: 10/26/16 Time of Encounter: 09:30 - Assessment and plan (1) Chest pain Current Visit: No Status: Acute Assessment and plan: Patient continues to deny chest pain. Cardiology on board and have doubled her sotalol dosage and we will continue to monitor for 5 doses of sotalol which will be tonight. According to cardiology, plan is for cardioversion tomorrow if she is still in A. fib tomorrow. Qualifiers: Chest pain type: unspecified Qualified Code(s): R07.9 - Chest pain, unspecified (2) Palpitations Current Visit: No Status: Acute (3) Atrial fibrillation Current Visit: No Status: Chronic Qualifiers: Atrial fibrillation type: paroxysmal Qualified Code(s): I48.0 - Paroxysmal atrial fibrillation (4) Acute on chronic respiratory failure with hypoxemia Current Visit: No Status: Chronic Assessment and plan: No increased need for oxygen at this time, 3 L at home, 3 L here. Patient denies shortness of breath above her norm (5) Diastolic CHF Current Visit: No Status: Acute Assessment and plan: Pedal edema now trace and nonpitting. Continue furosemide. She is on furosemide 40 mg 3 times a day at home, currently on 80 mg daily here. We will continue fluid and sodium restricted diet and will continue to monitor. She continues to deny shortness of breath above her norm. Acute on chronic diastolic heart failure with preserved ejection fraction. Cardiology on board. Qualifiers: Congestive heart failure chronicity: acute on chronic Qualified Code(s): I50.33 - Acute on chronic diastolic (congestive) heart failure (6) COPD (chronic obstructive pulmonary disease) Current Visit: No Status: Chronic Assessment and plan: No acute exacerbation. Patient denies shortness of breath above her norm. Chest x-ray unremarkable for acute processes. Lungs clear to auscultation bilaterally with fair to good aeration. ITS Impressions Chest X-Ray 10/24/16 12:25 IMPRESSION: Stable cardiomegaly and pulmonary artery hypertension with probable chronic pulmonary venous hypertension. Stable mild patchy perihilar and lung base opacities which may be chronic in nature. No lobar pneumonia or overt congestive heart failure. D/ : / 10/24/2016 13:10:47 Yonatan Crowell MD / Antonia Carter Interpreting Provider: Yonatan Crowell MD Qualifiers: COPD type: emphysema Emphysema type: unspecified Qualified Code(s): J43.9 - Emphysema, unspecified (7) Hypertension Current Visit: No Status: Chronic Assessment and plan: Controlled. Her home amlodipine 5 mg has been continued. She is also on furosemide. (8) Chronic anticoagulation Current Visit: No Status: Chronic Assessment and plan: INR therapeutic at 2.6. We will continue to trend (9) GERD (gastroesophageal reflux disease) Current Visit: No Status: Chronic Assessment and plan: Denies current symptoms (10) DVT prophylaxis Current Visit: No Status: Acute Assessment and plan: On Coumadin (11) Bilateral lower extremity edema Current Visit: No Status: Chronic Assessment and plan: Acute on chronic. We will continue to slowly diurese. (12) Morbid obesity with BMI of 50.0-59.9, adult Current Visit: No Status: Chronic - Subjective Interval history: Patient seen and examined. On examination, patient is sitting upright on the side of her bed playing on her tablet. Patient denies pain or shortness of breath. Patient stating she still has a cough but states it is improved and she states her cough is no longer productive. She states she did not sleep very well last night and is requesting Tylenol PM for tonight stating that she takes this at home as well. She is endorsing a normal appetite. - Constitutional Vitals: Temp Pulse Resp BP Pulse Ox 97.7 F 79 15 126/82 97 10/26/16 11:48 10/26/16 11:48 10/26/16 11:48 10/26/16 11:48 10/26/16 11:48 General appearance: Present: A&O X 3, morbidly obese, pleasant, no acute distress, answers questions appropriately - Head Head exam: Present: atraumatic, normocephalic - Eye Eye exam: Present: PERRL, conjuntiva pink, sclera anicteric Pupils: Present: PERRL - Neck Neck exam general surgery: Present: supple, trachea midline. Absent: lymphadenopathy - Respiratory Respiratory exam: Present: CTAB. Absent: accessory muscle use, decreased breath sounds, rales, respiratory distress, rhonchi, wheezes - Cardiovascular Cardiovascular exam: Present: irregular rhythm, +S1, +S2. Absent: diastolic murmur, gallop, rubs, systolic murmur - GI/Abdominal GI/Abdominal exam: Present: normal bowel sounds, soft, no peritoneal signs. Absent: distended, tenderness - Extremities Exam Extremities exam: Present: warm, radial pulses palpable and symetrical. Absent : calf tenderness, cyanotic, pedal edema (trace; non-pitting) - Neurological Exam Neurological exam: Present: alert, CN II-XII intact, oriented X3, no focal deficits, strengths equal and symetr throughout. Absent: pronater drift, facial droop, speech deficit - Skin Skin exam: Present: dry, intact, normal color, warm Internal Medicine: Result - Labs CBC & Chem 7: 10/25/16 00:54 10/26/16 03:23 Labs: BMP 10/26/16 03:23 Sodium 142 Potassium 4.1 D Chloride 100 Carbon Dioxide 33 H BUN 26 H Creatinine 0.79 Glucose 130 H Calcium 9.0 - ABG Interpretation ABG results: PT/INR, D-dimer PT 28.9 Seconds (9.4-12.1) H 10/26/16 03:23 Consult Discharge Plan - Plan Referrals: Lisbet Ray CNP [Primary Care Provider] - 11/01/16 10:30 am
[2016-10-26] MEDS: *HR* Warfarin 5 MG TABLET PO SCH (17:22)
[2016-10-26] MEDS: rOPINIRole 1 MG TABLET PO SCH (20:15)
[2016-10-26] MEDS ORDERED: Pantoprazole 40 MG VIAL IVP ONE (20:29)
[2016-10-26] MEDS ORDERED: Sucralfate 1 GM TABLET PO ONE (20:31)
[2016-10-26] MEDS: Acetaminophen 325 MG TABLET PO PRN (20:53)
[2016-10-27 03:04] LABS: BUN/Creatinine Ratio 37 (6-26); Blood Urea Nitrogen 30 mg/dL (7-20); Calcium 9.8 mg/dL (8.6-10.8); Carbon Dioxide 34 mEq/L (19-29); Chloride 98 mEq/L (98-109); Glucose 106 mg/dL (70-99); Osmolality,Calculated 301 (280-300); Potassium 4.2 mEq/L (3.5-4.5); Sodium 142 mEq/L (136-145); eGFR For African Americans > 60 (> 60); eGFR For Non-African Americans > 60 (> 60)
[2016-10-27 03:15] LABS: INR 2.3
[2016-10-27] MEDS: Diltiazem CD (24hr) 180 MG CAPSULE PO SCH (07:44)
[2016-10-27] MEDS: Furosemide 40 MG TABLET PO SCH (07:45)
[2016-10-27] MEDS: amLODIPine 5 MG TABLET PO SCH (07:45)
[2016-10-27] MEDS: Cholecalciferol (D-3) 1,000 UNIT TABLET PO SCH (07:46)
[2016-10-27] MEDS: predniSONE 20 MG TABLET PO SCH (07:46)
[2016-10-27] MEDS: Ascorbic Acid 500 MG TABLET PO SCH (07:46)
[2016-10-27] MEDS: (Cyanocobalamin (Vitamin B-12) [Vitamin B-12] 100 MCG PO SCH (07:47)
[2016-10-27] MEDS: Tiotropium 18 MCG inhalation IH SCH (08:11)
--- NOTE | 2016-10-27 09:27 | Event Note ---
Date of Encounter: 10/27/16 Time of Encounter: 09:25 - Cardiology Event Note Mrs. Guevara remains in atrial fibrillation. We will proceed with cardioversion as planned. She is on coumadin and has been therapeutic for one Month. No need for ZOILA. She agrees with plan. All questions answered.
[2016-10-27] MEDS ORDERED: *HR* Midazolam HCl 5 MG/5 ML VIAL IVP ONE ×2 (10:24→12:09)
[2016-10-27] MEDS ORDERED: *HR* FentaNYL (PF) 250 MCG/5 ML VIAL ONE (10:24)
[2016-10-27] MEDS ORDERED: *HR* FentaNYL (PF) 100 MCG/2 ML VIAL IVP ONE (12:09)
--- NOTE | 2016-10-27 13:13 | ECHO - Doppler Report ---
Cardioversion Name: Alyssa Guevara Date of Study: 10/27/2016 Date: 1950 Ht: 63.0in Medical Record#: [id number] Age: 65 Wt: 316.0lb Gender: Female BSA: 2.35 Order #: [id number] Location: [facility] Room #: 3B14 Reading Physician: Abraham White DO, FACC [place] Hand: Vishal Roberts RDCS Ordering Physician: Nolan Christie CNP Primary Physician: Lisbet Ray CNP Indications: Arrhythmia Impressions: Successful synchronized cardioversion on the second attempt using 300 Joules. 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 After adequate sedation was achieved, synchronized cardioversion in the AP approach was attempted. First attempt with 250 Joules was unsuccessful. Second attempt using 300 Joules was successful. No neurological deficits were noted after the procedure. The patient was monitored for the standard 30 minutes post procedure. History: Atrial fibrillation Hypertension Family History of CAD Congestive Heart Failure Previous Echo08/16/16 BP 143 / 90 Updated by Abraham White DO, FACC, FASE, FASNC on 10/27/2016 1:06:37 PM
--- NOTE | 2016-10-27 14:43 | Event Note ---
Date of Encounter: 10/27/16 Time of Encounter: 14:39 - Cardiology Event Note Successful cardioversion after 2 shocks. Now in NSR. Continue sotalol 160 mg Q12hr. Continue coumadin for anticoagulation. F/u with Dr. White will be made in 2 weeks. If she has recurrent atrial fibrillation she would like to discuss atrial fibrillation ablation. Cardiology signing off. Call with questions.
[2016-10-27 15:00] VITALS: BP 143/81
--- NOTE | 2016-10-27 18:04 | Discharge Summary ---
Date of Encounter: 10/27/16 Time of Encounter: 09:00 (and 1730) - Discharge Diagnosis (1) Chest pain Priority: Primary Status: Resolved Comments: Patient denied chest pain on the discharge. Status post successful cardioversion, cleared for outpatient follow-up per cardiology Qualifiers: Chest pain type: unspecified Qualified Code(s): R07.9 - Chest pain, unspecified (2) Palpitations Priority: Primary Status: Resolved (3) Atrial fibrillation Priority: Secondary Status: Resolved Qualifiers: Atrial fibrillation type: paroxysmal Qualified Code(s): I48.0 - Paroxysmal atrial fibrillation (4) Acute on chronic respiratory failure with hypoxemia Priority: Secondary Status: Chronic Comments: No increased need for oxygen during this admission; 3 L at home, 3 L here. Patient denied shortness of breath above her norm (5) Diastolic CHF Priority: Primary Status: Acute Comments: Successfully diuresed and her pedal edema resolved. Recommend continued fluid and sodium restricted diet and will palpation. Acute on chronic diastolic heart failure with preserved ejection fraction. Cardiology on board during this admission. Qualifiers: Congestive heart failure chronicity: acute on chronic Qualified Code(s): I50.33 - Acute on chronic diastolic (congestive) heart failure (6) COPD (chronic obstructive pulmonary disease) Priority: Secondary Status: Chronic Comments: No acute exacerbation. Patient denies shortness of breath above her norm throughout this admission. Qualifiers: COPD type: emphysema Emphysema type: unspecified Qualified Code(s): J43.9 - Emphysema, unspecified (7) Hypertension Priority: Secondary Status: Chronic Comments: Controlled, follow-up outpatient (8) Chronic anticoagulation Priority: Secondary Status: Chronic Comments: INR therapeutic on day of discharge at 2.3 (9) GERD (gastroesophageal reflux disease) Priority: Secondary Status: Chronic Comments: Denied current symptoms (10) DVT prophylaxis Priority: Primary Status: Acute Comments: Therapeutic on Coumadin (11) Bilateral lower extremity edema Priority: Secondary Status: Chronic (12) Morbid obesity with BMI of 50.0-59.9, adult Priority: Secondary Status: Chronic - Discharge Medications Prescriptions: Sotalol [Betapace] 160 mg PO Q12HR #120 tablet Home Medications: Alendronate Sodium [Fosamax] 70 mg PO QWEEK 10/28/15 [History] Ascorbate Calcium [Vitamin C] 500 mg PO DAILY 10/28/15 [History] Cholecalciferol (Vitamin D3) [Vitamin D3] 1,000 unit PO DAILY 10/28/15 [History] Cyanocobalamin (Vitamin B-12) [Vitamin B-12] 100 mcg PO DAILY 10/28/15 [History] Fluticasone/Salmeterol [Advair 250-50 Diskus] 1 puff IH BID 10/28/15 [History] Potassium Chloride [K-Tab ER] 20 meq PO DAILY 10/28/15 [History] Ropinirole HCl [Requip] 2 mg PO HS 10/28/15 [History] Tiotropium [Spiriva] 1 cap IH HS 10/28/15 [History] Warfarin [Coumadin] 5 mg PO QPM 10/28/15 [History] Dexlansoprazole [Dexilant] 60 mg PO DAILY 07/03/16 [History] Ferrous Sulfate [Iron] 325 mg PO DAILY 07/03/16 [History] Montelukast [Singulair] 10 mg PO DAILY #30 tablet 07/09/16 [Rx] Diltiazem CD (24hr) [Cardizem CD] 180 mg PO DAILY #30 cap.er.24h 08/17/16 [Rx] Acetaminophen/Diphenhydramine [Acetaminophen Pm Caplet] 2 tab PO HS 09/09/16 [ History] Furosemide [Lasix] 40 mg PO TID #0 09/10/16 [Rx] Albuterol Sulfate [Proventil Hfa] 2 puff IH PRN PRN 09/14/16 [History] Benzonatate [Tessalon] 200 mg PO TID PRN #30 capsule 09/25/16 [Rx] Calcium Carbonate [Calcium] 500 mg PO BID 09/29/16 [History] Amlodipine [Norvasc] 5 mg PO DAILY #14 tablet 10/02/16 [Rx] Losartan Potassium [Cozaar] 50 mg PO DAILY #14 tab 10/02/16 [Rx] Oxygen 3 l IH AD 10/24/16 [History] Sotalol [Betapace] 160 mg PO Q12HR #120 tablet 10/27/16 [Rx] Allergies/Adverse Reactions: Allergies albuterol Allergy (Verified 09/29/16 11:04) Difficulty Breathing aspirin [ASA] Allergy (Verified 09/29/16 11:04) Difficulty Breathing Penicillins Allergy (Verified 09/29/16 11:04) Hives Sulfa (Sulfonamide Antibiotics) Allergy (Verified 09/29/16 11:04) Rash Procedures/tests Complete & Pending: Procedures Performed prior 72 hours Category Date Time Status CL Cardioversion [CL] Routine Pattern Gater 10/27/16 08:22 Stop Req ECG 12 lead ECG [ECG] Routine Y 10/27/16 11:07 Completed EKG [ECG 12 lead ECG] [ECG] AM 0600 Y 10/27/16 06:00 Completed EKG [ECG 12 lead ECG] [ECG] Stat Y 10/26/16 09:04 Completed EV cardioversion Routine Y 10/27/16 09:18 Completed Date of admission: 10/25/16 13:21 Primary care physician: Lisbet Ray, Consults: 10/24/16 13:27 Consult to Cardiology [CONS] Stat Comment: Consulting Provider: German Velazco Reason for Consult: a fib Time Notified: 13:28 Call Completed: Yes Discharging clinician: Claire Cook Anticipated date of discharge: 10/27/16 - Patient Status Disposition: Home, Self-Care Condition: Good Functional capacity at discharge: independent ambulation Overall status at discharge: patient is back to baseline - Discharge Instructions Instructions: Sotalol (By mouth), Atrial Fibrillation (DC), Cardioversion (DC) Follow Up With: Lisbet Ray CNP [Primary Care Provider] - 11/01/16 10:30 am [facility] [Provider Group] Additional Instructions: Follow-up with primary care provider as scheduled, follow-up with cardiology in 2 weeks - Diet and Activity Activity: increase activity as tolerated Diet: low fat, low cholesterol, low salt diet Hospital course: Ms. Guevara is a 65 year old female with past medical history of paroxysmal atrial fibrillation on Coumadin, COPD on oxygen at home, asthma, hypertension, morbid obesity. Patient had a cardioversion in August 2016 which was successful and she was placed on sotalol and Coumadin. She had been in sinus rhythm since August but 2 days prior to presentation when she got out of bed, she began to experience palpitations as well as chest pressure and weakness. Patient denied shortness of breath, diaphoresis, nausea but did endorse dizziness with positional changes. Patient states the chest pressure described as pounding and then intermittent pressure that was worsened with exertion. In the emergency department, she was noted to be back in atrial fibrillation. Cardiology was brought on board and increased her sotalol dosage and admitted her to the hospitalist service for further evaluation and management. Cardiology remained on board and the patient was observed at her new dose of sotalol for 5 doses and at that time cardiology proceeded with a cardioversion that was successful and she was in normal sinus rhythm. She was then cleared for outpatient follow-up with cardiology within 2 weeks for possible discussion of atrial fibrillation ablation as indicated. Patient initially had pedal edema that subsided during this admission. She denied shortness of breath above her norm on day of discharge. She was discharged home in stable condition with close outpatient follow-up recommended. ITS Impressions Chest X-Ray 10/24/16 12:25 IMPRESSION: Stable cardiomegaly and pulmonary artery hypertension with probable chronic pulmonary venous hypertension. Stable mild patchy perihilar and lung base opacities which may be chronic in nature. No lobar pneumonia or overt congestive heart failure. D/ : / 10/24/2016 13:10:47 Yonatan Crowell MD / Antonia Carter Interpreting Provider: Yonatan Crowell MD - Time Spent with Patient Total time spent providing and/or coordinating discharge services: - Constitutional Vitals: Temp Pulse Resp BP Pulse Ox 98.1 F 81 16 143/81 92 L 10/27/16 14:58 10/27/16 14:58 10/27/16 14:58 10/27/16 14:58 10/27/16 14:58 General appearance: Present: A&O X 3, morbidly obese, pleasant, no acute distress, answers questions appropriately - Head Head exam: Present: atraumatic, normocephalic - Eye Eye exam: Present: PERRL, conjuntiva pink, sclera anicteric Pupils: Present: PERRL - Neck Neck exam general surgery: Present: supple, trachea midline. Absent: lymphadenopathy - Respiratory Respiratory exam: Present: decreased breath sounds. Absent: accessory muscle use, rales, respiratory distress, rhonchi, wheezes - Cardiovascular Cardiovascular exam: Present: RRR, +S1, +S2. Absent: diastolic murmur, gallop, rubs, systolic murmur - GI/Abdominal GI/Abdominal exam: Present: normal bowel sounds, soft, no peritoneal signs. Absent: distended, tenderness - Extremities Exam Extremities exam: Present: warm, radial pulses palpable and symetrical. Absent : calf tenderness, cyanotic, pedal edema - Neurological Exam Neurological exam: Present: alert, CN II-XII intact, normal gait, oriented X3, no focal deficits, strengths equal and symetr throughout. Absent: pronater drift, facial droop, speech deficit - Skin Skin exam: Present: dry, intact, normal color, warm - VTE Documentation of Mechanical Device: Graduated compression elastic hosiery
[2016-10-27] MEDS: *HR* Warfarin 5 MG TABLET PO SCH (18:05)
--- NOTE | 2016-10-27 19:24 | Electrocardiograph Report ---
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
--- NOTE | 2016-10-29 07:37 | Electrocardiograph Report ---
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
--- NOTE | 2016-10-29 20:39 | Electrocardiograph Report ---
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
== END 2016-10-27 19:21 | disposition home or self-care (01) | DRG 308 ==
LOC: EMEROO 11:01 → 3BNU 11:01 → SUATTDRO 14:03 → 3BNU 15:03
PROVIDERS: ADMIT Internal Medicine; ATTEND Nurse Practitioner Family

== ENCOUNTER 2016-11-13 13:44 | Inpatient (IN) ==
[2016-11-13] MEDS ORDERED: Furosemide 40 MG/4 ML VIAL IVP ONE (13:54)
[2016-11-13] MEDS ORDERED: Ipratropium/Albuterol Neb 3 ML IH ONE (13:55)
--- NOTE | 2016-11-13 13:58 | Emergency Department Note ---
Disposition Clinical Impression: Elevated INR Diastolic CHF Qualifiers: Congestive heart failure chronicity: chronic Qualified Code(s): I50.32 - Chronic diastolic (congestive) heart failure COPD (chronic obstructive pulmonary disease) Qualifiers: COPD type: COPD with acute exacerbation Qualified Code(s): J44.1 - Chronic obstructive pulmonary disease with (acute) exacerbation Disposition: Admitted As Inpatient Condition: Good Referrals: Lisbet Ray DEPUTY GENERAL COUNSEL [Primary Care Provider] - Forms: ED Satisfaction Letter Time of Disposition: 15:51 SOB HPI - General Chief Complaint: ED Shortness of Breath/Dyspnea Stated Complaint: Swelling all over Time Seen by Provider: 11/13/16 14:02 Source: patient Mode of arrival: ambulatory Limitations: age Nursing Notes Reviewed: Yes Vital Signs Reviewed: Yes - History of Present Illness 65 year old female with HX of CHF and oxygen depenedent COPD on 3LNC continously at home and states over the past two day she has been experiecing increased fatigue and exertional dyspnea. Patient was most recently admitted to the hospital on october for atrial fibrillation secondary to pnuemonia that needed cardioversio nadn was placed on coumadin, sotatlol, and cardia. Brittany states that she has finsihed her ABX therapy and brown snot have a cough but has gained 10 poounds of weight int he past two days. She states that at [facility] she is able to do light housework i.e laundry and make meals but in the past two days she can hardly walk to th ebathroom without becoming dyspniec. Brittany states she has a pulse ox that she checks at home and on the way to the hospital today she recoreded a pulse ox of 67-71% In the room she is 90% and that she typiucally is 95-96% at home. She states she take lasix 80mg at home dialy and 40mg in the afternoon and it does not seem to be helping now. States she has chest presssure on exertion, last stress test was 03/20 and LVEF is 70-75 %. - Related Data Home Medications Medication Instructions Recorded Confirmed Alendronate Sodium [Fosamax] 70 mg PO QWEEK 10/28/15 11/13/16 Ascorbate Calcium [Vitamin C] 500 mg PO DAILY 10/28/15 11/13/16 Cholecalciferol (Vitamin D3) 1,000 unit PO DAILY 10/28/15 11/13/16 [Vitamin D3] Cyanocobalamin (Vitamin B-12) 100 mcg PO DAILY 10/28/15 11/13/16 [Vitamin B-12] Fluticasone/Salmeterol [Advair 1 puff IH BID 10/28/15 11/13/16 250-50 Diskus] Potassium Chloride [K-Tab ER] 20 meq PO DAILY 10/28/15 11/13/16 Ropinirole HCl [Requip] 2 mg PO HS 10/28/15 11/13/16 Tiotropium [Spiriva] 1 cap IH HS 10/28/15 11/13/16 Warfarin [Coumadin] 5 mg PO QPM 10/28/15 11/13/16 Dexlansoprazole [Dexilant] 60 mg PO DAILY 07/03/16 11/13/16 Ferrous Sulfate [Iron] 325 mg PO DAILY 07/03/16 11/13/16 Acetaminophen/Diphenhydramine 2 tab PO HS 09/09/16 11/13/16 [Acetaminophen Pm Caplet] Albuterol Sulfate [Proventil Hfa] 2 puff IH Q4H PRN 09/14/16 11/13/16 Calcium Carbonate [Calcium] 500 mg PO BID 09/29/16 11/13/16 Oxygen 3 l IH AD 10/24/16 11/13/16 Previous Rx's Medication Instructions Recorded Montelukast [Singulair] 10 mg PO DAILY #30 tablet 07/09/16 Diltiazem CD (24hr) [Cardizem CD] 180 mg PO DAILY #30 cap.er.24h 08/17/16 Furosemide [Lasix] 40 mg PO TID #0 09/10/16 Amlodipine [Norvasc] 5 mg PO DAILY #14 tablet 10/02/16 Losartan Potassium [Cozaar] 50 mg PO DAILY #14 tab 10/02/16 Sotalol [Betapace] 160 mg PO Q12HR #120 tablet 10/27/16 Allergies Allergy/AdvReac Type Severity Reaction Status Date / Time albuterol Allergy Difficulty Verified 09/29/16 11:04 Breathing aspirin [ASA] Allergy Difficulty Verified 09/29/16 11:04 Breathing Penicillins Allergy Hives Verified 09/29/16 11:04 Sulfa (Sulfonamide Allergy Rash Verified 09/29/16 11:04 Antibiotics) Constitutional: Reports: weakness, weight change. Denies: fever, chills Eyes: Denies: eye pain, eye discharge, vision change ENT ED: Denies: ear pain, throat pain, dental pain, congestion, dysphagia Cardiovascular: Reports: dyspnea on exertion, orthopnea, edema. Denies: chest pain, palpitations, syncope Respiratory: Reports: dyspnea. Denies: cough, wheezes, hemoptysis, stridor Gastrointestinal: Denies: abdominal pain, nausea, vomiting, diarrhea, constipation, hematemesis, melena, hematochezia Genitourinary: Denies: dysuria, frequency, hematuria Musculoskeletal: Denies: back pain, neck pain, arthralgia, myalgia Integumentary: Denies: rash, abrasion, lesions Neurological: Denies: headache, weakness, numbness, paresthesias, confusion, abnormal gait Psychiatric: Denies: anxiety, depression, suicidal thoughts, homicidal thoughts , auditory hallucinations, visual hallucinations Endocrine: Denies: fatigue Allergic/Immunologic: Denies: facial swelling Past Medical History - Past Medical History Medical history: Reports: asthma, atrial fibrillation, COPD, hypertension Surgical history: Reports: cholecystectomy, hysterectomy Psychiatric history: Reports: no psych history SERVICE INSPECTOR history: Reports: no SERVICE INSPECTOR history - Social History Smoking Status: Former smoker Smokeless Tobacco Status: No Alcohol use: Reports: none Drug use: Reports: none Physical Exam - General Limitations: no limitations General appearance: alert, in no apparent distress, obese - Head Head exam: atraumatic, normocephalic, normal inspection - Eye Eye exam: Present: normal appearance, PERRL, EOMI - Expanded Eye Exam Eyelids: bilateral: normal inspection Pupils: Left: reactive, Bilateral: regular, round - ENT ENT exam: normal exam, normal oropharynx, mucous membranes moist - Expanded ENT Exam External ear exam: Present: normal external inspection Mouth exam: Present: normal external inspection Teeth exam: Present: normal inspection Throat exam: Present: normal inspection - Neck Neck exam: Present: normal inspection, full ROM, trachea midline - Chest Chest inspection: Present: normal inspection, symmetric chest wall rise - Respiratory Respiratory exam: Present: normal lung sounds bilaterally (however difficult to properly assess due to body habitus) - Cardiovascular Cardiovascular exam: Present: normal rhythm, bradycardia, normal heart sounds - Abdominal Exam Abdominal exam: Present: soft, Non-Tender. Absent: tenderness, distention, guarding, rebound, rigidity - Extremities Exam Extremities exam: Present: normal inspection, full ROM. Absent: tenderness, pedal edema - Expanded Upper Extremity Exam Shoulder exam: Present: normal inspection, full ROM Arm exam: Present: normal inspection, full ROM Elbow exam: Present: normal inspection, full ROM Forearm/Wrist exam: Present: normal inspection, full ROM Hand exam: Present: normal inspection, full ROM Vascular exam: Normal: capillary refill, radial pulse - Expanded Lower Extremity Exam Hip/Pelvis exam: Present: normal inspection, full ROM Upper leg exam: Present: normal inspection, full ROM Knee exam: Present: normal inspection, full ROM Lower leg exam: Present: normal inspection, full ROM, swelling (R and L pedal edema (+)2) Ankle exam: Present: normal inspection, full ROM Foot/toe exam: Present: normal inspection, full ROM Neurovascular/Tendon exam: Absent: motor deficit, sensory deficit, tendon deficit Gait: observed and normal - Back Exam Back exam: Present: normal inspection, full ROM. Absent: tenderness - Neurological Exam Neurological exam: Present: alert, oriented X3 - Expanded Neurological Exam Patient oriented to: Present: person, place, time Speech: Present: fluid speech Coma Scale Eye Opening: Spontaneous Coma Scale Motor Response: Obeys Commands Coma Scale Verbal Response: Oriented Coma Scale Total: 15 - Psychiatric Psychiatric exam: Present: normal affect, normal mood - Skin Skin exam: Present: warm, dry, intact, normal color Course Course Narrative: we will do a focused cardiac exam and treat with duoneb/lasix for likley COPD/ CHF excerbation, increased oxygen to 5LNC due to drop in pulse ox to 89-90%. - Consultations Consultation #1: discussed case with KEVAN Oden and she has accepted brittany for admissin. Brittany is agreeable to plan. Time: 15:46 Vital Signs Temperature 98.4 F 11/13/16 13:49 Pulse Rate 60 11/13/16 13:49 Respiratory Rate 22 11/13/16 13:49 Blood Pressure 153/71 11/13/16 13:49 O2 Sat by Pulse Oximetry 96 11/13/16 13:49 Temperature 98.4 F 11/13/16 13:49 Pulse Rate 55 11/13/16 15:04 Respiratory Rate 22 11/13/16 15:04 Blood Pressure 127/51 11/13/16 15:04 O2 Sat by Pulse Oximetry 99 11/13/16 14:35 Oxygen Delivery Oxygen Delivery Nasal Cannula Shortness of Breath/Dyspnea - Lab Data Result diagrams: 11/13/16 14:12 11/13/16 14:12 Lab Results 11/13/16 11/13/16 11/13/16 Range/Units 14:12 14:12 14:12 WBC 7.4 (4.3-11.1) K/mcL RBC 4.10 (3.82-4.97) M/mcL Hgb 10.9 L (11.5-15.4) g/dL Hct 36.8 (35.3-44.9) % MCV 89.8 (83.0-100.0) fL MCH 26.6 L (28.0-33.3) pg MCHC 29.6 L (31.6-35.5) g/dL RDW 15.4 H (11.5-14.5) % Plt Count 178 (140-400) K/mcL MPV 11.6 (9.4-12.4) fL Immature Gran % 1.1 (0-4) % Seg Neutrophils % 67.3 % Lymphocytes % 20.7 % Monocytes % 9.7 % Eosinophils % 0.9 % Basophils % 0.3 % Neutrophils # 5.0 (1.6-8.9) K/mcL Lymphocytes # 1.5 (0.6-4.6) K/mcL Monocytes # 0.7 (0.0-1.3) K/mcL Eosinophils # 0.1 (0.0-0.6) K/mcL Basophils # 0.0 (0.0-0.2) K/mcL PT 52.8 H* (9.4-12.1) Seconds INR 4.7 H* APTT 41.4 H (26.0-36.0) Seconds Sodium (136-145) mEq/L Potassium (3.5-4.5) mEq/L Chloride (98-109) mEq/L Carbon Dioxide (19-29) mEq/L BUN (7-20) mg/dL Creatinine (0.57-1.11) mg/dL Est GFR ( Amer) (> 60) Est GFR (Non-Af Amer) (> 60) BUN/Creatinine Ratio (6-26) Glucose (70-99) mg/dL Calculated Osmolality (280-300) Calcium (8.6-10.8) mg/dL Troponin I (0-0.03) ng/mL B-Natriuretic Peptide 61 (0-100) pg/mL 11/13/16 11/13/16 Range/Units 14:12 14:12 WBC (4.3-11.1) K/mcL RBC (3.82-4.97) M/mcL Hgb (11.5-15.4) g/dL Hct (35.3-44.9) % MCV (83.0-100.0) fL MCH (28.0-33.3) pg MCHC (31.6-35.5) g/dL RDW (11.5-14.5) % Plt Count (140-400) K/mcL MPV (9.4-12.4) fL Immature Gran % (0-4) % Seg Neutrophils % % Lymphocytes % % Monocytes % % Eosinophils % % Basophils % % Neutrophils # (1.6-8.9) K/mcL Lymphocytes # (0.6-4.6) K/mcL Monocytes # (0.0-1.3) K/mcL Eosinophils # (0.0-0.6) K/mcL Basophils # (0.0-0.2) K/mcL PT (9.4-12.1) Seconds INR APTT (26.0-36.0) Seconds Sodium 144 (136-145) mEq/L Potassium 3.8 (3.5-4.5) mEq/L Chloride 96 L (98-109) mEq/L Carbon Dioxide 39 H (19-29) mEq/L BUN 39 H (7-20) mg/dL Creatinine 1.04 (0.57-1.11) mg/dL Est GFR ( Amer) > 60 (> 60) Est GFR (Non-Af Amer) 53 L (> 60) BUN/Creatinine Ratio 38 H (6-26) Glucose 106 H (70-99) mg/dL Calculated Osmolality 308 H (280-300) Calcium 9.7 (8.6-10.8) mg/dL Troponin I 0.01 (0-0.03) ng/mL B-Natriuretic Peptide (0-100) pg/mL Attestation Statement - Attestation Attestation: I personally interviewed and examined this patient and my medical decision- making was reviewed with the ED Resident Physician, Dr. Palacios. I agree with the documented findings, disposition and treatment plan as described except to the extent set forth below. Patient is a 65-year-old white female with a history of COPD and CHF who presents to the emergency department today with a 2 day history of gradually worsening shortness of breath and increasing edema. Patient's on 3 L nasal cannula oxygen at all times for her lung disease and states that due to worsening swelling in her lower legs feet ankles and hands she took an additional 80 mg of her home Lasix this morning. Patient states she has not noticed any increased urine output secondary to the increase in her medications. Patient typically takes 80 mg once a day. Patient denies any form of chest pain or pressure no heaviness just worsening dyspnea with exertion. Patient was hospitalized less than 2 weeks ago for pneumonia and acute exacerbation of her COPD. Patient has completed her antibiotic regimen and denies any fevers or chills, no productive cough, no upper respiratory symptoms. No generalized myalgias. Patient arrives with some mild conversational dyspnea and tachypnea with mild hypoxemia on home O2. On exam diminished breath sounds throughout and rales auscultated in the bases bilaterally. No obvious wheezing. Patient also with 2+ pitting edema of the lower extremities bilaterally up to the knees. Remainder of exam is unremarkable. At this time we have obtained laboratory evaluation, EKG, portal chest x-ray and have initiated breathing treatment as well as an additional dose of IV diuretic. We will assess and see if we can determine etiology of dyspnea. Patient improved following aerosols and steroids IV, patient also received a dose of Lasix here in the emergency department as well. Chest x-ray was negative for any pulmonary edema and no acute infiltrate seen. BMP was within normal limits. Patient does have an elevated INR. Due to increased oxygen requirements and dyspnea on exertion will admit patient for further evaluation, serial enzymes and management of COPD exacerbation.
[2016-11-13 14:20] LABS: Basophils % 0.3 %; Eosinophils # 0.1 K/mcL (0.0-0.6); Eosinophils % 0.9 %; Hematocrit 36.8 % (35.3-44.9); Hemoglobin 10.9 g/dL (11.5-15.4); Immature Granulocytes % 1.1 % (0-4); Lymphocytes # 1.5 K/mcL (0.6-4.6); Lymphocytes % 20.7 %; Mean Corpuscular HGB Conc 29.6 g/dL (31.6-35.5); Mean Corpuscular Hemoglobin 26.6 pg (28.0-33.3); Mean Corpuscular Volume 89.8 fL (83.0-100.0); Mean Platelet Volume 11.6 fL (9.4-12.4); Monocytes # 0.7 K/mcL (0.0-1.3); Monocytes % 9.7 %; Platelet Count 178 K/mcL (140-400); Red Cell Distribution Width 15.4 % (11.5-14.5); Segmented Neutrophils % 67.3 %
[2016-11-13 14:28] LABS: Activated Partial Thrombo Time 41.4 Seconds (26.0-36.0)
[2016-11-13 14:32] LABS: BUN/Creatinine Ratio 38 (6-26); Blood Urea Nitrogen 39 mg/dL (7-20); Calcium 9.7 mg/dL (8.6-10.8); Carbon Dioxide 39 mEq/L (19-29); Chloride 96 mEq/L (98-109); Glucose 106 mg/dL (70-99); Osmolality,Calculated 308 (280-300); Potassium 3.8 mEq/L (3.5-4.5); Sodium 144 mEq/L (136-145); eGFR For African Americans > 60 (> 60); eGFR For Non-African Americans 53 (> 60)
[2016-11-13 14:33] LABS: INR 4.7; Prothrombin Time 52.8 Seconds (9.4-12.1)
[2016-11-13] MEDS ORDERED: methylPREDNISolone 125 MG/2 ML VIAL IVP ONE (14:44)
[2016-11-13] MEDS ORDERED: Naloxone 0.4 MG/ML INJ IVP PRN (18:33)
[2016-11-13] MEDS ORDERED: Albuterol 2.5 MG/3 ML NEBULIZER IH PRN (18:41)
--- NOTE | 2016-11-13 18:56 | Internal Med History&Physical ---
<Kathy Godoy - Last Filed: 11/13/16 19:38> Date of Encounter: 11/13/16 Time of Encounter: 18:48 Assessment and Plan (1) Acute on chronic respiratory failure with hypoxemia Current visit: No Status: Acute Patient is oxygen dependent at 3 L nasal cannula at home. She has been expanded increasing shortness of breath dropping S PO2 down to 70%. She typically runs 95 96%. On presentation she was 89-90%. We will continue with oxygen titrated to maintain spo2 90/92% 2 continue bronchodilators (2) COPD with exacerbation Current visit: No Status: Acute Patient has history of COPD she presents with increasing shortness of breath scattered wheezes throughout hypoxia. We will continue with oxygen titrating maintain SPO2 greater than 92% 2 continue with bronchodilators 3 we will give IV steroids-taper 4 Mucinex for cough 5 doxycycline (3) Diastolic CHF Current visit: Yes Status: Acute 1 patient has history of diastolic failure EF 60% on last echo. Patient is on 80 mg of Lasix daily at home. She has been experiencing increasing shortness of breath weight gain as well as swelling lower extremities. We will give IV Lasix 40 mg daily 2 monitor intake and output 3 daily weights 4. Fluid Restriction 5 low-sodium diet Qualifiers: Congestive heart failure chronicity: chronic Qualified Code(s): I50.32 - Chronic diastolic (congestive) heart failure (4) Hypertension Current visit: No Status: Chronic 1 presently controlled we will continue with home medications Qualifiers: Hypertension type: essential hypertension Qualified Code(s): I10 - Essential (primary) hypertension (5) Elevated INR Current visit: Yes Status: Acute 1 patient is on Coumadin 5 mg daily present INR is 4.7 will hold for now will obtain INR in a.m. pharmacy to dose Coumadin goal is to maintain INR 2.5-3 (6) Paroxysmal atrial fibrillation Current visit: Yes Status: Acute 1 patient was recently cardioverted in October for A. fib RVR. Presently she is in sinus rhythm we will continue with sotalol as well as Cardura Coumadin for anticoagulation. We will monitor QTC presently 349 2 continuous cardiac monitoring (7) DVT prophylaxis Current visit: No Status: Acute On Coumadin Internal Medicine - H&P: HPI Chief complaint: SOB Admitted From: Emergency Dept Plans for Post Hospital Care: Home History of present illness: Ms. Guevara is a 65 year old female past history of atrial fibrillation with cardioversion COPD oxygen dependent hypertension diastolic heart failure. According to the patient she recently been treated for pneumonia approximately 2 weeks ago she did complete her antibiotics as prescribed. She also underwent cardioversion for atrial fibrillation in October secondary to pneumonia she is on Coumadin sotalol and Cardura. Over the past few days patient has been experiencing increase in dyspnea on exertion as well as fatigue she is also noted that her SPO2 has been dropping pulse ox 67-71% she is typically around 95 -96% on 3 L nasal cannula. She states that she take takes Lasix 80 mg daily she has noted increased swelling to lower extremity as well as 10 pound weight gain in the past 2 days. She has been experiencing some chest pressure on exertion her last stress test was 03/20 LVEF is 70-75%. She denies any palpitations fevers chills nausea vomiting diarrhea She presented to the ER with the above complaints. According to ER report patient arrived with some mild conversational dyspnea she is tachypnea with mild hypoxemia on home O2 laboratory results revealed potassium 3.8 troponin 0.01 BNP 61 INR is 4.7 leukocytosis chest x-ray was negative for any pulmonary edema and no acute infiltrates seen patient was admitted for further workup and evaluation. Presently patient in respiratory distress. She is not complaining of any chest pain at this time. Lung sounds with scattered expiratory wheezes throughout. Heart sounds S1 and S2 with no rubs gallops murmurs clicks noted. She does have +2 pitting edema up to knees lower extremities bilaterally. She is hemodynamically stable at this time Past Med Surg Social Fam HX - Past Medical History Medical history: asthma, atrial fibrillation, CHF, COPD, hypertension Psychiatric history: no psych history - Past Surgical History Surgical History: cholecystectomy, hysterectomy - Social History Smoking Status: Former smoker Smokeless Tobacco Status: No Alcohol use: none Drug use: none - Family History Sister Living Status: Hx Family Cardiac Disorders: Yes Hx Family Respiratory Disorders: Yes (copd) Mother Adopted: No Family Member Ethnicity: Non- Twin of Family Member: Yes, Fraternal Living Status: Hx Family Cardiac Disorders: Yes (chf) Hx Family Respiratory Disorders: No Hx Family Cancer: No Hx Family GI Disorders: No Hx Family Endocrine Disorder: No Hx Family Neuromuscular Disorders: No Hx Family Neurologic Disorders: No Hx Family HEENT Disorders: Yes (tumor in rt ear benign at age 60) Hx Family Autoimmune Disorders: No Father Adopted: No Family Member Ethnicity: Non- Twin of Family Member: Yes, Fraternal Living Status: Hx Family Cardiac Disorders: Yes (father, grandfather,self) Hx Family Respiratory Disorders: Yes (self,sister) Hx Family Cancer: No Hx Family GI Disorders: Yes (self) Hx Family Endocrine Disorder: No Hx Family Neuromuscular Disorders: No Hx Family Neurologic Disorders: No Hx Family HEENT Disorders: No Hx Family Autoimmune Disorders: No Internal Medicine - H&P: Meds Alendronate Sodium [Fosamax] 70 mg PO QWEEK 10/28/15 [History] Ascorbate Calcium [Vitamin C] 500 mg PO DAILY 10/28/15 [History] Cholecalciferol (Vitamin D3) [Vitamin D3] 1,000 unit PO DAILY 10/28/15 [History] Cyanocobalamin (Vitamin B-12) [Vitamin B-12] 100 mcg PO DAILY 10/28/15 [History] Fluticasone/Salmeterol [Advair 250-50 Diskus] 1 puff IH BID 10/28/15 [History] Potassium Chloride [K-Tab ER] 20 meq PO DAILY 10/28/15 [History] Ropinirole HCl [Requip] 2 mg PO HS 10/28/15 [History] Tiotropium [Spiriva] 1 cap IH HS 10/28/15 [History] Warfarin [Coumadin] 5 mg PO QPM 10/28/15 [History] Dexlansoprazole [Dexilant] 60 mg PO DAILY 07/03/16 [History] Ferrous Sulfate [Iron] 325 mg PO DAILY 07/03/16 [History] Montelukast [Singulair] 10 mg PO DAILY #30 tablet 07/09/16 [Rx] Diltiazem CD (24hr) [Cardizem CD] 180 mg PO DAILY #30 cap.er.24h 08/17/16 [Rx] Acetaminophen/Diphenhydramine [Acetaminophen Pm Caplet] 2 tab PO HS 09/09/16 [ History] Furosemide [Lasix] 40 mg PO TID #0 09/10/16 [Rx] Albuterol Sulfate [Proventil Hfa] 2 puff IH Q4H PRN 09/14/16 [History] Calcium Carbonate [Calcium] 500 mg PO BID 09/29/16 [History] Amlodipine [Norvasc] 5 mg PO DAILY #14 tablet 10/02/16 [Rx] Losartan Potassium [Cozaar] 50 mg PO DAILY #14 tab 10/02/16 [Rx] Oxygen 3 l IH AD 10/24/16 [History] Sotalol [Betapace] 160 mg PO Q12HR #120 tablet 10/27/16 [Rx] Allergies albuterol Allergy (Verified 09/29/16 11:04) Difficulty Breathing aspirin [ASA] Allergy (Verified 09/29/16 11:04) Difficulty Breathing Penicillins Allergy (Verified 09/29/16 11:04) Hives Sulfa (Sulfonamide Antibiotics) Allergy (Verified 09/29/16 11:04) Rash All Systems PM: A 10-system review of systems was performed and is negative for pertinent findings except as documented above in the HPI. - Constitutional Constitutional: fatigue, weight gain - Cardiovascular Cardiovascular ROS IM: chest pain, dyspnea on exertion - Respiratory Respiratory: cough, dyspnea on exertion - Gastrointestinal Gastrointestinal: no abdominal pain, no diarrhea, no hematemesis, no hematochezia, no melena, no nausea, no vomiting - Genitourinary Genitourinary: no change in urinary stream, no dysuria, no flank pain, no hematuria - Musculoskeletal Musculoskeletal ROS IM: no numbness, no tingling - Integumentary Integumentary IM: no rash, no unusual bruising - Neurological Neurological ROS: no confusion, no convulsions, no focal weakness, no numbness, no tingling, no tremor(s) - Constitutional Vitals: Temp Pulse Resp BP Pulse Ox 97.9 F 63 18 150/68 95 11/13/16 17:40 11/13/16 17:40 11/13/16 17:40 11/13/16 17:40 11/13/16 17:40 General appearance: Present: A&O X 3, morbidly obese, answers questions appropriately - Head Head exam: Present: atraumatic, normocephalic - Respiratory Respiratory exam: Present: wheezes. Absent: accessory muscle use, rales, rhonchi - Cardiovascular Cardiovascular exam: Present: RRR, +S1, +S2. Absent: diastolic murmur, gallop, rubs, systolic murmur - GI/Abdominal GI/Abdominal exam: Present: normal bowel sounds, soft, no peritoneal signs. Absent: distended, tenderness - Extremities Exam Extremities exam: Present: pedal edema, warm, radial pulses palpable and symetrical. Absent: calf tenderness, cyanotic - Neurological Exam Neurological exam: Present: CN II-XII intact, oriented X3, no focal deficits. Absent: pronater drift, facial droop, speech deficit - Skin Skin exam: Present: dry, intact Internal Med - H&P Results - Labs CBC & Chem 7: 11/13/16 14:12 11/13/16 14:12 - EKG Data EKG shows normal: sinus rhythm Rate: bradycardia - Diagnostic Studies Other Images Additional comments: Chest X-Ray 11/13/16 13:54 IMPRESSION: 1. Stable chest, with evidence of chronic pulmonary artery and pulmonary venous hypertension. 2. Stable scarring versus plate-like atelectasis at the lung bases. D/ / 11/13/2016 14:39:19 Cole Patterson [facility] Interpreting Provider: Cole Patterson MD <LisaNeymarash R - Last Filed: 11/13/16 23:00> Date of Encounter: 11/13/16 Internal Medicine - H&P: HPI History of present illness: Ms. Guevara is a 65 year old female All Systems PM: A 10-system review of systems was performed and is negative for pertinent findings except as documented above in the HPI. - Constitutional Vitals: Temp Pulse Resp BP Pulse Ox 98.4 F 65 18 128/79 97 11/13/16 21:36 11/13/16 21:36 11/13/16 21:36 11/13/16 21:36 11/13/16 21:36 Internal Med - H&P Results - Labs CBC & Chem 7: 11/13/16 14:12 11/13/16 14:12 Labs: Cardiac Enzymes 11/13/16 Range/Units 20:12 Troponin I 0.01 (0-0.03) ng/mL - Attending Attestation I examined this patient and my medical decision-making was reviewed with the HEM INSPECTOR/ Advanced Practice Nurse. I agree with the documented findings, disposition and treatment plan as described except to the extent set forth below. 65-year-old female with history of atrial fibrillation status post cardioversion , diastolic CHF, COPD, chronic respiratory on home oxygen - presents with Shortness of Breath. She reports cough with thick white sputum. O/E: Systolic murmur present. Bilateral basal crackles present. No significant wheeze. Bilateral pitting edema present. EKG personally reviewed by me shows sinus bradycardia. Chest x-ray reports chronic pulmonary artery and pulmonary venous hypertension. Stable scarring versus plate-like atelectasis at lung bases. A/P: Acute exacerbation of CHF (with preserved LVEF): LVEF of 60% in Aug 2016. Treat with IV Lasix; fluid restriction, daily weights. Possible COPD exacerbation: Continue bronchodilators, doxycycline, Solu-Medrol, Mucinex. Acute on chronic respiratory failure: Consider ABG, if not improving. Continue supplemental O2.
[2016-11-13] MEDS ORDERED: Furosemide 40 MG/4 ML VIAL IVP SCH (21:00)
[2016-11-13] MEDS ORDERED: DIPHENHYDRAMINE PO SCH (21:00)
[2016-11-13] MEDS ORDERED: Tiotropium 18 MCG inhalation IH SCH (21:00)
[2016-11-13] MEDS ORDERED: ACETAMINOPHEN PO SCH (21:00)
[2016-11-13] MEDS: Budesonide/Formoterol 80/4.5 MDI IH SCH (21:37)
[2016-11-13] MEDS: Doxycycline 100 MG CAPSULE PO SCH ×2 (22:25)
[2016-11-13] MEDS: Lactobacillus 1 EACH CAP.SPRINK PO SCH (22:26)
[2016-11-13] MEDS: rOPINIRole 1 MG TABLET PO SCH (22:26)
[2016-11-13] MEDS: MethylPREDNISolone 40 MG/ML VIAL IVP SCH (23:23)
[2016-11-13] MEDS: Ipratropium/Albuterol Neb 3 ML IH SCH (23:35)
[2016-11-14] MEDS ORDERED: methylPREDNISolone 125 MG/2 ML VIAL IVP SCH
[2016-11-14 01:17] LABS: Basophils % 0.1 %; Hematocrit 37.8 % (35.3-44.9); Hemoglobin 11.4 g/dL (11.5-15.4); Lymphocytes # 0.7 K/mcL (0.6-4.6); Lymphocytes % 8.3 %; Mean Corpuscular HGB Conc 30.2 g/dL (31.6-35.5); Mean Corpuscular Volume 89.6 fL (83.0-100.0); Mean Platelet Volume 12.3 fL (9.4-12.4); Monocytes # 0.1 K/mcL (0.0-1.3); Monocytes % 1.2 %; Neutrophils # 7.4 K/mcL (1.6-8.9); Platelet Count 165 K/mcL (140-400); Red Blood Count 4.22 M/mcL (3.82-4.97); Red Cell Distribution Width 15.3 % (11.5-14.5); Segmented Neutrophils % 89.4 %
[2016-11-14 01:26] LABS: INR 3.6; Prothrombin Time 40.3 Seconds (9.4-12.1)
[2016-11-14 01:33] LABS: BUN/Creatinine Ratio 39 (6-26); Blood Urea Nitrogen 40 mg/dL (7-20); Calcium 9.6 mg/dL (8.6-10.8); Carbon Dioxide 37 mEq/L (19-29); Chloride 95 mEq/L (98-109); Glucose 198 mg/dL (70-99); Osmolality,Calculated 313 (280-300); Potassium 3.8 mEq/L (3.5-4.5); Sodium 144 mEq/L (136-145); eGFR For African Americans > 60 (> 60); eGFR For Non-African Americans 54 (> 60)
[2016-11-14] MEDS: Ipratropium/Albuterol Neb 3 ML IH SCH ×4 (05:04→23:09)
[2016-11-14 07:58] LABS: Bilirubin,Urine Negative (Negative); Blood,Urine Negative (Negative); Clarity,Urine Clear (Clear); Color,Urine Yellow (Yellow); Glucose,Urine (UA) Normal (Normal); Ketones,Urine Negative (Negative); Leukocyte Esterase,Urine Negative (Negative); Nitrite,Urine Negative (Negative); Protein,Urine Negative (Neg-Trace); Specific Gravity,Urine 1.027 (1.010-1.025); Urobilinogen,Urine Normal (Normal)
[2016-11-14] MEDS: Cyanocobalamin (B-12) 1,000 MCG TABLET PO SCH (08:55)
[2016-11-14] MEDS: Lactobacillus 1 EACH CAP.SPRINK PO SCH ×2 (08:55→21:06)
[2016-11-14] MEDS: Diltiazem CD (24hr) 180 MG CAPSULE PO SCH (08:55)
[2016-11-14] MEDS: Cholecalciferol (D-3) 1,000 UNIT TABLET PO SCH (08:55)
[2016-11-14] MEDS: Ascorbic Acid 500 MG TABLET PO SCH (08:55)
[2016-11-14] MEDS: Doxycycline 100 MG CAPSULE PO SCH (08:55)
[2016-11-14] MEDS: amLODIPine 5 MG TABLET PO SCH (08:55)
[2016-11-14] MEDS: MethylPREDNISolone 40 MG/ML VIAL IVP SCH ×2 (08:56→16:48)
[2016-11-14] MEDS: Furosemide 40 MG/4 ML VIAL IVP SCH ×2 (08:56→16:46)
[2016-11-14] MEDS: DEXLANSOPRAZOLE 60 MG PO SCH (08:56)
[2016-11-14] MEDS ORDERED: Furosemide 40 MG/4 ML VIAL IVP SCH (09:00)
[2016-11-14] MEDS: Budesonide/Formoterol 80/4.5 MDI IH SCH ×2 (10:30→23:09)
--- NOTE | 2016-11-14 16:35 | Internal Med Progress Note ---
<Lynsey Kaur - Last Filed: 11/14/16 16:32> Date of Encounter: 11/14/16 Time of Encounter: 11:00 - Assessment and plan (1) Diastolic CHF Current Visit: Yes Status: Acute Assessment and plan: echo from 08/13/16 showed LVEF 60%, normal LV size and systolic function, moderate concentric hypertrophy of the LV, RV mildly dilated with normal function. patient is on 80mg lasix at home. CXR showed stable chest with evidence of chronic pulmonary artery and pulmonary venous hypertension, stable scarring vs. plate like atalectasis at the lung bases. Plan: lasix 40mg IV BID strict I/O daily weights. fluid restriction of 1500ml continue to monitor kidney function Qualifiers: Congestive heart failure chronicity: chronic Qualified Code(s): I50.32 - Chronic diastolic (congestive) heart failure (2) Acute on chronic respiratory failure with hypoxemia Current Visit: No Status: Acute Assessment and plan: patient reports that she has been having increasing shortness of breath, with pulse ox decreasing down to 60s-70s at home. she requires 3L NC at home. she is on 3.5L currently, we will continue to wean her down to her home level of oxygen. (3) COPD (chronic obstructive pulmonary disease) Current Visit: Yes Status: Chronic Assessment and plan: likely not exacerbation. Patient requires 3L NC oxygen at home. Currently on 3.5L continue PRN inhalers, symbicort, singulair Qualifiers: COPD type: COPD with acute exacerbation Qualified Code(s): J44.1 - Chronic obstructive pulmonary disease with (acute) exacerbation (4) Hypertension Current Visit: No Status: Chronic Assessment and plan: blood pressure within normal limits at this time. Plan: continue norvasc, losartan, Qualifiers: Hypertension type: essential hypertension Qualified Code(s): I10 - Essential (primary) hypertension (5) Paroxysmal atrial fibrillation Current Visit: Yes Status: Acute Assessment and plan: patient had cardioversion done in October for Afib RVR. Plan: continue sotalol, coumadin, cardizem. pharmacy dosing coumadin, currently on hold due to elevated INR. (6) DVT prophylaxis Current Visit: No Status: Acute Assessment and plan: pharmacy dosing coumadin - Subjective Interval history: 65 year old female evaluated at bedside. patient denies nausea, vomiting, diarrhea, fever, chills. reports mild shortness of breath and dizziness. She denies any further complaints today. - Constitutional Vitals: Temp Pulse Resp BP Pulse Ox 97.8 F 61 16 142/57 94 11/14/16 15:00 11/14/16 15:00 11/14/16 15:35 11/14/16 15:00 11/14/16 15:35 General appearance: Present: A&O X 3, morbidly obese, answers questions appropriately - Head Head exam: Present: atraumatic, normocephalic - Neck Neck exam general surgery: Present: supple, trachea midline - Respiratory Respiratory exam: Present: decreased breath sounds - Cardiovascular Cardiovascular exam: Present: RRR, +S1, +S2 - GI/Abdominal GI/Abdominal exam: Present: normal bowel sounds, soft. Absent: tenderness - Extremities Exam Extremities exam: Present: pedal edema. Absent: cyanotic Additional comments: +1 RLE pitting edema +2 LLE pitting edema. - Neurological Exam Neurological exam: Present: alert, oriented X3, no focal deficits Internal Medicine: Result - Labs CBC & Chem 7: 11/14/16 01:11 11/14/16 01:11 Labs: Short CBC 11/14/16 Range/Units 01:11 WBC 8.3 (4.3-11.1) K/mcL Hgb 11.4 L (11.5-15.4) g/dL Hct 37.8 (35.3-44.9) % Plt Count 165 (140-400) K/mcL Neutrophils # 7.4 (1.6-8.9) K/mcL BMP 11/14/16 01:11 Sodium 144 Potassium 3.8 Chloride 95 L Carbon Dioxide 37 H BUN 40 H Creatinine 1.02 Glucose 198 H Calcium 9.6 Cardiac Enzymes 11/13/16 11/14/16 Range/Units 20:12 01:11 Troponin I 0.01 0.00 (0-0.03) ng/mL Urine 11/14/16 Range/Units 07:15 Urine Color Yellow (Yellow) Urine Clarity Clear (Clear) Urine pH 6.0 (5.0-8.0) pH Units Ur Specific [place] 1.027 H (1.010-1.025) Urine Protein Negative (Neg-Trace) mg/dL Urine Glucose (UA) Normal (Normal) mg/dL - ABG Interpretation ABG results: PT/INR, D-dimer PT 40.3 Seconds (9.4-12.1) H 11/14/16 01:11 - VTE Reasons for not Prescribing Prophylaxis: Not indicated-Anticoagulated or INR therapeutic Consult Discharge Plan - Plan Instructions: Heart Failure (DC), Atrial Fibrillation (DC), Chest Pain (DC), Acute Respiratory Distress Syndrome (DC), Chronic Obstructive Pulmonary Disease (DC), Sepsis (DC), Chronic Hypertension (DC), Anemia (GEN), Pneumonia (DC) Referrals: Lisbet Ray CNP [Primary Care Provider] - 11/21/16 1:30 pm Aj Virk MD [Partnered Physician] - 11/22/16 9:00 am <Landry Cool - Last Filed: 11/15/16 22:37> Date of Encounter: 11/15/16 - Assessment and plan (1) Acute on chronic respiratory failure with hypoxemia Current Visit: No Status: Acute (2) Acute exacerbation of chronic obstructive airways disease Current Visit: No Status: Acute (3) Hypothyroid Current Visit: Yes Status: Acute Qualifiers: Hypothyroidism type: unspecified Qualified Code(s): E03.9 - Hypothyroidism , unspecified (4) Paroxysmal atrial fibrillation Current Visit: Yes Status: Acute (5) Morbid obesity Current Visit: No Status: Chronic Qualifiers: Obesity type: due to excess calories Qualified Code(s): E66.01 - Morbid ( severe) obesity due to excess calories - Constitutional Vitals: Temp Pulse Resp BP Pulse Ox 97.8 F 59 16 110/72 97 11/15/16 20:00 11/15/16 20:00 11/15/16 22:05 11/15/16 20:00 11/15/16 22:05 Internal Medicine: Result - Labs CBC & Chem 7: 11/15/16 05:03 11/15/16 05:03 Labs: Short CBC 11/15/16 Range/Units 05:03 WBC 12.1 H (4.3-11.1) K/mcL Hgb 11.4 L (11.5-15.4) g/dL Hct 38.6 (35.3-44.9) % Plt Count 195 (140-400) K/mcL Neutrophils # 10.6 H (1.6-8.9) K/mcL BMP 11/15/16 05:03 Sodium 144 Potassium 3.7 Chloride 96 L Carbon Dioxide 38 H BUN 41 H Creatinine 0.88 Glucose 170 H Calcium 9.6 - ABG Interpretation ABG results: PT/INR, D-dimer PT 32.8 Seconds (9.4-12.1) H 11/15/16 05:03 - Attending Attestation I examined this patient and my medical decision-making was reviewed with the Resident Physician on 11/15/16. I agree with the documented findings, disposition and treatment plan as described except to the extent set forth below. Ms. Guevara is currently admitted for acute exac CHF. She is moderate to high risk due to potential for worsening respiratory and cardiac status. Ms. Guevara is still very swollen and dyspneic. Denies pain. No GI symptoms. Has had some diuresis since admit. Exam Alert. Comfortable Heart distant No wheeze Edema present I/P 1. Acute exac CHF 2. Resp distress Further diagnoses and plan as above.
--- NOTE | 2016-11-14 17:42 | Electrocardiograph Report ---
[address] [address] Test Date: 2016-11-13 Pat Name: Alyssa Guevara Department: 102 Room: 2N0 Gender: F [employer]: : 1950 Requested By: Beverly Palacios Order Number: [id number] Reading MD: Aj Virk Measurements Intervals [place] Rate: 57 P: 51 GA: 165 QRS: 32 QRSD: 86 T: 22 QT: 434 QTc: 429 Interpretive Statements SINUS BRADYCARDIA Electronically Signed On 11-14-2016 17:40:51 EDT by Aj Virk
[2016-11-14] MEDS ORDERED: Warfarin perPT PO PRN (18:00)
[2016-11-14] MEDS: rOPINIRole 1 MG TABLET PO SCH (21:06)
[2016-11-15] MEDS: Ipratropium/Albuterol Neb 3 ML IH SCH ×4 (03:54→22:05)
[2016-11-15 06:18] LABS: INR 2.9; Prothrombin Time 32.8 Seconds (9.4-12.1)
--- NOTE | 2016-11-15 08:12 | Internal Med Progress Note ---
<Lynsey Kaur - Last Filed: 11/15/16 10:07> Date of Encounter: 11/15/16 Time of Encounter: 08:10 - Assessment and plan (1) Diastolic CHF Current Visit: Yes Status: Acute Assessment and plan: echo from 08/13/16 showed LVEF 60%, normal LV size and systolic function, moderate concentric hypertrophy of the LV, RV mildly dilated with normal function. patient is on 80mg lasix at home. CXR showed stable chest with evidence of chronic pulmonary artery and pulmonary venous hypertension, stable scarring vs. plate like atalectasis at the lung bases. troponinx3 negative. Plan: Patient diuresing well, net negative 1.3L in the past 24 hours. continue lasix 40mg IV BID, with eventual transition to oral lasix. strict I/O daily weights. fluid restriction of 1500ml continue to monitor kidney function patient is hyperglycemic, at risk for DM. did receive a few doses of IV steroids , but will check A1C with morning labs. Qualifiers: Congestive heart failure chronicity: chronic Qualified Code(s): I50.32 - Chronic diastolic (congestive) heart failure (2) Acute on chronic respiratory failure with hypoxemia Current Visit: No Status: Acute Assessment and plan: patient reports that she has been having increasing shortness of breath, with pulse ox decreasing down to 60s-70s at home. she requires 3L NC at home. Plan: patient is back to her baseline oxygen requirement of 3L. Will continue to monitor. (3) COPD (chronic obstructive pulmonary disease) Current Visit: Yes Status: Chronic Assessment and plan: likely not exacerbation. patient is back to her baseline oxygen requirement of 3L continue PRN inhalers, symbicort, singulair Qualifiers: COPD type: COPD with acute exacerbation Qualified Code(s): J44.1 - Chronic obstructive pulmonary disease with (acute) exacerbation (4) Hypertension Current Visit: No Status: Chronic Assessment and plan: blood pressure within normal limits at this time. Plan: continue norvasc, losartan, Qualifiers: Hypertension type: essential hypertension Qualified Code(s): I10 - Essential (primary) hypertension (5) Paroxysmal atrial fibrillation Current Visit: Yes Status: Acute Assessment and plan: patient had cardioversion done in October for Afib RVR. Plan: continue sotalol, coumadin, cardizem. pharmacy dosing coumadin, currently on hold due to elevated INR. (6) DVT prophylaxis Current Visit: No Status: Acute Assessment and plan: pharmacy dosing coumadin - Subjective Interval history: 65 year old female evaluated at bedside. she denies nausea, vomiting, diarrhea, fever, chills, shortness of breath, dizziness, and chest pain. patient states she slept ok overnight. she has no further issues to address today. patient is back to her baseline oxygen requirement of 3L. - Constitutional Vitals: Temp Pulse Resp BP Pulse Ox 98.0 F 59 15 140/58 98 11/15/16 06:31 11/15/16 06:31 11/15/16 06:31 11/15/16 06:31 11/15/16 06:31 General appearance: Present: A&O X 3, morbidly obese, no acute distress, answers questions appropriately - Head Head exam: Present: atraumatic, normocephalic - Neck Neck exam general surgery: Present: supple, trachea midline - Respiratory Respiratory exam: Present: decreased breath sounds - Cardiovascular Cardiovascular exam: Present: RRR, +S1, +S2 - GI/Abdominal GI/Abdominal exam: Present: firm, normal bowel sounds. Absent: tenderness - Extremities Exam Extremities exam: Present: pedal edema Additional comments: mild +1 pitting edema, worse on left than right. but improved since yesterday. - Neurological Exam Neurological exam: Present: alert, oriented X3, no focal deficits Internal Medicine: Result - Labs CBC & Chem 7: 11/15/16 05:03 11/15/16 05:03 - ABG Interpretation ABG results: PT/INR, D-dimer PT 32.8 Seconds (9.4-12.1) H 11/15/16 05:03 - VTE Reasons for not Prescribing Prophylaxis: Not indicated-Anticoagulated or INR therapeutic Consult Discharge Plan - Plan Instructions: Heart Failure (DC), Atrial Fibrillation (DC), Chest Pain (DC), Acute Respiratory Distress Syndrome (DC), Chronic Obstructive Pulmonary Disease (DC), Sepsis (DC), Chronic Hypertension (DC), Anemia (GEN), Pneumonia (DC) Referrals: Lisbet Ray CNP [Primary Care Provider] - 11/21/16 1:30 pm Aj Virk MD [Partnered Physician] - 11/22/16 9:00 am <Landry Cool - Last Filed: 11/15/16 22:49> Date of Encounter: 11/15/16 - Assessment and plan (1) Acute on chronic respiratory failure with hypoxemia Current Visit: No Status: Acute (2) Diastolic CHF Current Visit: Yes Status: Acute Qualifiers: Congestive heart failure chronicity: acute on chronic Qualified Code(s): I50.33 - Acute on chronic diastolic (congestive) heart failure (3) Acute exacerbation of chronic obstructive airways disease Current Visit: No Status: Acute (4) Hypothyroid Current Visit: Yes Status: Acute Qualifiers: Hypothyroidism type: unspecified Qualified Code(s): E03.9 - Hypothyroidism , unspecified (5) Paroxysmal atrial fibrillation Current Visit: Yes Status: Acute (6) Morbid obesity Current Visit: No Status: Chronic Qualifiers: Obesity type: due to excess calories Qualified Code(s): E66.01 - Morbid ( severe) obesity due to excess calories - Constitutional Vitals: Temp Pulse Resp BP Pulse Ox 97.8 F 59 16 110/72 97 11/15/16 20:00 11/15/16 20:00 11/15/16 22:05 11/15/16 20:00 11/15/16 22:05 Internal Medicine: Result - Labs CBC & Chem 7: 11/15/16 05:03 11/15/16 05:03 Labs: Short CBC 11/15/16 Range/Units 05:03 WBC 12.1 H (4.3-11.1) K/mcL Hgb 11.4 L (11.5-15.4) g/dL Hct 38.6 (35.3-44.9) % Plt Count 195 (140-400) K/mcL Neutrophils # 10.6 H (1.6-8.9) K/mcL BMP 11/15/16 05:03 Sodium 144 Potassium 3.7 Chloride 96 L Carbon Dioxide 38 H BUN 41 H Creatinine 0.88 Glucose 170 H Calcium 9.6 - ABG Interpretation ABG results: PT/INR, D-dimer PT 32.8 Seconds (9.4-12.1) H 11/15/16 05:03 - Attending Attestation I examined this patient and my medical decision-making was reviewed with the Resident Physician on 11/15/16. I agree with the documented findings, disposition and treatment plan as described except to the extent set forth below. is feeling OK. Still very dyspneic. Edema present still. No pain. Exam Alert. Comfortable Heart distant No wheeze Still edema I/P 1. Acute CHF 2. Hypoxia Further diagnoses and plan as above.
[2016-11-15 08:29] LABS: Basophils % 0.1 %; Hematocrit 38.6 % (35.3-44.9); Hemoglobin 11.4 g/dL (11.5-15.4); Immature Granulocytes % 0.9 % (0-4); Lymphocytes # 0.6 K/mcL (0.6-4.6); Lymphocytes % 5.2 %; Mean Corpuscular HGB Conc 29.5 g/dL (31.6-35.5); Mean Corpuscular Hemoglobin 26.7 pg (28.0-33.3); Mean Corpuscular Volume 90.4 fL (83.0-100.0); Mean Platelet Volume 12.6 fL (9.4-12.4); Monocytes # 0.7 K/mcL (0.0-1.3); Monocytes % 5.8 %; Neutrophils # 10.6 K/mcL (1.6-8.9); Nucleated Red Blood Cells 0.2 /100 WBC (0); Platelet Count 195 K/mcL (140-400); Red Blood Count 4.27 M/mcL (3.82-4.97); Red Cell Distribution Width 15.2 % (11.5-14.5)
[2016-11-15 08:37] LABS: BUN/Creatinine Ratio 47 (6-26); Blood Urea Nitrogen 41 mg/dL (7-20); Calcium 9.6 mg/dL (8.6-10.8); Carbon Dioxide 38 mEq/L (19-29); Chloride 96 mEq/L (98-109); Glucose 170 mg/dL (70-99); Osmolality,Calculated 312 (280-300); Potassium 3.7 mEq/L (3.5-4.5); Sodium 144 mEq/L (136-145); eGFR For African Americans > 60 (> 60); eGFR For Non-African Americans > 60 (> 60)
[2016-11-15] MEDS: Lactobacillus 1 EACH CAP.SPRINK PO SCH ×2 (09:22→19:50)
[2016-11-15] MEDS: amLODIPine 5 MG TABLET PO SCH (09:22)
[2016-11-15] MEDS: Diltiazem CD (24hr) 180 MG CAPSULE PO SCH (09:22)
[2016-11-15] MEDS: Cholecalciferol (D-3) 1,000 UNIT TABLET PO SCH (09:23)
[2016-11-15] MEDS: DEXLANSOPRAZOLE 60 MG PO SCH (09:23)
[2016-11-15] MEDS: Furosemide 40 MG/4 ML VIAL IVP SCH ×2 (09:23→16:54)
[2016-11-15] MEDS: Ascorbic Acid 500 MG TABLET PO SCH (09:23)
[2016-11-15] MEDS: Cyanocobalamin (B-12) 1,000 MCG TABLET PO SCH (09:23)
[2016-11-15] MEDS: Budesonide/Formoterol 80/4.5 MDI IH SCH ×3 (10:30→21:35)
[2016-11-15] MEDS ORDERED: *HR* Warfarin 5 MG TABLET PO SCH (18:00)
[2016-11-15] MEDS: rOPINIRole 1 MG TABLET PO SCH (19:50)
[2016-11-15] MEDS: Artificial Tears SOLN 15 ML BOTTLE BOTH EYES SCH (22:14)
[2016-11-16] MEDS: Ipratropium/Albuterol Neb 3 ML IH SCH ×3 (04:13→15:10)
[2016-11-16 06:16] LABS: Basophils % 0.2 %; Eosinophils % 0.1 %; Hematocrit 38.4 % (35.3-44.9); Hemoglobin 11.2 g/dL (11.5-15.4); Immature Granulocytes % 0.6 % (0-4); Lymphocytes # 1.6 K/mcL (0.6-4.6); Lymphocytes % 14.4 %; Mean Corpuscular HGB Conc 29.2 g/dL (31.6-35.5); Mean Corpuscular Hemoglobin 26.8 pg (28.0-33.3); Mean Corpuscular Volume 91.9 fL (83.0-100.0); Mean Platelet Volume 12.2 fL (9.4-12.4); Monocytes % 8.9 %; Neutrophils # 8.2 K/mcL (1.6-8.9); Platelet Count 182 K/mcL (140-400); Red Blood Count 4.18 M/mcL (3.82-4.97); Red Cell Distribution Width 15.5 % (11.5-14.5); Segmented Neutrophils % 75.8 %
[2016-11-16 06:24] LABS: INR 2.8; Prothrombin Time 30.6 Seconds (9.4-12.1)
[2016-11-16 06:30] LABS: BUN/Creatinine Ratio 52 (6-26); Blood Urea Nitrogen 46 mg/dL (7-20); Calcium 9.3 mg/dL (8.6-10.8); Carbon Dioxide 35 mEq/L (19-29); Chloride 98 mEq/L (98-109); Glucose 134 mg/dL (70-99); Osmolality,Calculated 310 (280-300); Potassium 3.6 mEq/L (3.5-4.5); Sodium 143 mEq/L (136-145); eGFR For African Americans > 60 (> 60); eGFR For Non-African Americans > 60 (> 60)
[2016-11-16 06:45] LABS: Hemoglobin A1C 5.7 %
[2016-11-16] MEDS: Diltiazem CD (24hr) 180 MG CAPSULE PO SCH (09:21)
[2016-11-16] MEDS: Lactobacillus 1 EACH CAP.SPRINK PO SCH (09:21)
[2016-11-16] MEDS: Cholecalciferol (D-3) 1,000 UNIT TABLET PO SCH (09:21)
[2016-11-16] MEDS: Cyanocobalamin (B-12) 1,000 MCG TABLET PO SCH (09:21)
[2016-11-16] MEDS: amLODIPine 5 MG TABLET PO SCH (09:22)
[2016-11-16] MEDS: Furosemide 40 MG/4 ML VIAL IVP SCH (09:22)
[2016-11-16] MEDS: Ascorbic Acid 500 MG TABLET PO SCH (09:26)
--- NOTE | 2016-11-16 09:59 | Discharge Summary ---
<Debby Lewis - Last Filed: 11/16/16 13:15> Date of Encounter: 11/16/16 Time of Encounter: 09:00 - Discharge Diagnosis (1) Diastolic CHF Priority: Primary Status: Acute Qualifiers: Congestive heart failure chronicity: acute on chronic Qualified Code(s): I50.33 - Acute on chronic diastolic (congestive) heart failure (2) Paroxysmal atrial fibrillation Priority: Primary Status: Chronic (3) COPD (chronic obstructive pulmonary disease) Priority: Secondary Status: Chronic Qualifiers: COPD type: COPD with acute exacerbation Qualified Code(s): J44.1 - Chronic obstructive pulmonary disease with (acute) exacerbation (4) Elevated INR Priority: Primary Status: Acute - Discharge Medications Prescriptions: Albuterol Neb [Proventil Neb] 2.5 mg IH Q4H PRN #1 inhsol PRN Reason: Shortness Of Breath/Wheezing Fluticasone/Salmeterol [Advair 250-50 Diskus] 1 puff IH BID #1 blst.w.dev Home Medications: Alendronate Sodium [Fosamax] 70 mg PO QWEEK 10/28/15 [History] Ascorbate Calcium [Vitamin C] 500 mg PO DAILY 10/28/15 [History] Cholecalciferol (Vitamin D3) [Vitamin D3] 1,000 unit PO DAILY 10/28/15 [History] Cyanocobalamin (Vitamin B-12) [Vitamin B-12] 100 mcg PO DAILY 10/28/15 [History] Potassium Chloride [K-Tab ER] 20 meq PO DAILY 10/28/15 [History] Ropinirole HCl [Requip] 2 mg PO HS 10/28/15 [History] Tiotropium [Spiriva] 1 cap IH HS 10/28/15 [History] Warfarin [Coumadin] 5 mg PO QPM 10/28/15 [History] Dexlansoprazole [Dexilant] 60 mg PO DAILY 07/03/16 [History] Ferrous Sulfate [Iron] 325 mg PO DAILY 07/03/16 [History] Montelukast [Singulair] 10 mg PO DAILY #30 tablet 07/09/16 [Rx] Diltiazem CD (24hr) [Cardizem CD] 180 mg PO DAILY #30 cap.er.24h 08/17/16 [Rx] Acetaminophen/Diphenhydramine [Acetaminophen Pm Caplet] 2 tab PO HS 09/09/16 [ History] Furosemide [Lasix] 40 mg PO TID #0 09/10/16 [Rx] Albuterol Sulfate [Proventil Hfa] 2 puff IH Q4H PRN 09/14/16 [History] Calcium Carbonate [Calcium] 500 mg PO BID 09/29/16 [History] Amlodipine [Norvasc] 5 mg PO DAILY #14 tablet 10/02/16 [Rx] Losartan Potassium [Cozaar] 50 mg PO DAILY #14 tab 10/02/16 [Rx] Oxygen 3 l IH AD 10/24/16 [History] Sotalol [Betapace] 160 mg PO Q12HR #120 tablet 10/27/16 [Rx] Albuterol Neb [Proventil Neb] 2.5 mg IH Q4H PRN #1 inhsol 11/16/16 [Rx] Fluticasone/Salmeterol [Advair 250-50 Diskus] 1 puff IH BID #1 blst.w.dev [Rx] Allergies/Adverse Reactions: Allergies albuterol Allergy (Verified 09/29/16 11:04) Difficulty Breathing aspirin [ASA] Allergy (Verified 09/29/16 11:04) Difficulty Breathing Penicillins Allergy (Verified 09/29/16 11:04) Hives Sulfa (Sulfonamide Antibiotics) Allergy (Verified 09/29/16 11:04) Rash Date of admission: 11/13/16 19:39 Primary care physician: Lisbet Ray, Discharging clinician: Landry Cool Anticipated date of discharge: 11/16/16 - Patient Status Disposition: Home, Self-Care Condition: Good Functional capacity at discharge: independent ambulation Overall status at discharge: patient is progressing back to baseline - Discharge Instructions Instructions: Albuterol (By breathing), Fluticasone/Salmeterol (By breathing), Heart Failure (DC), Atrial Fibrillation (DC), Chest Pain (DC), Acute Respiratory Distress Syndrome (DC), Chronic Obstructive Pulmonary Disease (DC), Sepsis (DC), Chronic Hypertension (DC), Anemia (GEN), Pneumonia (DC) Follow Up With: Lisbet Ray CNP [Primary Care Provider] - 11/21/16 1:30 pm Aj Virk MD [Partnered Physician] - 11/22/16 9:00 am - Diet and Activity Activity: increase activity as tolerated Diet: low fat, low cholesterol, low salt diet (fluid restriction 1.5L daily) Hospital course: Ms. Guevara is a 65 year old female Patient would present to [facility] with chief concern: short of breath, with volume status suggesting CHF exacerbation. Comorbidities would include: atrial fibrillation with cardioversion COPD oxygen dependent hypertension diastolic heart failure. Hospital course: Patient was treated with fluid and salt restriction, with monitoring weights, I/O. Tropes x 3 negative. Net volume negative 1.3 L with improvement in symptoms and breathing. She was counseled on importance of fluid and salt restriction. Target 1.5L daily. Afib monitored with good rate control, maintained INR therapeutic level of 2.8 on discharge date. Imaging studies include: Chest X-Ray 11/13/16 13:54 IMPRESSION: 1. Stable chest, with evidence of chronic pulmonary artery and pulmonary venous hypertension. 2. Stable scarring versus plate-like atelectasis at the lung bases. At time of discharge, patient was clinically improved, hemodynamically stable, progressing to baseline, and agreeable with plan of care. Patient was advised to seek immediate medical attention for any new or worsening symptoms including but not limited to fever, chills, chest pain, chest pressure, dyspnea, cough, abdominal pain, nausea, vomiting, diarrhea, bloody stool, urine and the patient voiced understanding. Patient will follow-up with primary care: Domitila Dobson NP. - Time Spent with Patient Total time spent providing and/or coordinating discharge services: Greater than 30 minutes - Constitutional Vitals: Temp Pulse Resp BP Pulse Ox 97.7 F 58 16 119/52 97 11/16/16 07:16 11/16/16 07:16 11/16/16 07:16 11/16/16 07:16 11/16/16 07:16 General appearance: Present: A&O X 3, morbidly obese, no acute distress, answers questions appropriately - Head Head exam: Present: atraumatic, normocephalic - Eye Eye exam: Present: EOMI, sclera anicteric - ENT ENT exam: Present: mucous membranes moist - Neck Neck exam general surgery: Present: supple, trachea midline - Respiratory Respiratory exam: Absent: rhonchi, wheezes Additional comments: dim 2* habitus - Cardiovascular Cardiovascular exam: Present: +S1, +S2. Absent: JVD - GI/Abdominal GI/Abdominal exam: Present: soft, no peritoneal signs. Absent: tenderness - Extremities Exam Extremities exam: Present: warm, radial pulses palpable and symetrical. Absent : pedal edema - VTE Reasons for not Prescribing Prophylaxis: Not indicated-Anticoagulated or INR therapeutic <Landry Cool Whit - Last Filed: 11/16/16 18:32> Date of Encounter: 11/16/16 - Discharge Diagnosis (1) Acute on chronic respiratory failure with hypoxemia Priority: Primary Status: Acute (2) Diastolic CHF Priority: Primary Status: Acute Qualifiers: Congestive heart failure chronicity: acute on chronic Qualified Code(s): I50.33 - Acute on chronic diastolic (congestive) heart failure (3) Acute exacerbation of chronic obstructive airways disease Priority: Secondary Status: Acute (4) Hypothyroid Priority: Secondary Status: Acute Qualifiers: Hypothyroidism type: unspecified Qualified Code(s): E03.9 - Hypothyroidism , unspecified (5) Paroxysmal atrial fibrillation Priority: Primary Status: Chronic (6) Morbid obesity Priority: Secondary Status: Chronic Qualifiers: Obesity type: due to excess calories Qualified Code(s): E66.01 - Morbid ( severe) obesity due to excess calories (7) BMI 50.0-59.9, adult Priority: Secondary Status: Chronic Date of admission: 11/13/16 19:39 Primary care physician: Lisbet Ray, [facility] course: Ms. Guevara is a 65 year old female - Time Spent with Patient Total time spent providing and/or coordinating discharge services:38min - Constitutional Vitals: Temp Pulse Resp BP Pulse Ox 97.6 F 58 16 141/55 97 11/16/16 11:48 11/16/16 11:48 11/16/16 15:10 11/16/16 11:48 11/16/16 15:10 - Attending Attestation I examined this patient and my medical decision-making was reviewed with the Resident Physician on 11/16/16. I agree with the documented findings, disposition and treatment plan as described except to the extent set forth below. Ms. Guevara feels better today. Her breathing is at baseline. No new changes overnight. Vitals are stable and she is afebrile. Ready for discharge. Exam Alert. Comfortable Heart reg No wheeze Edema improving Plan D/C home today Follow up with PCP
[2016-11-16] MEDS: Budesonide/Formoterol 80/4.5 MDI IH SCH (10:36)
[2016-11-16 11:51] VITALS: BP 141/55
[2016-11-16] MEDS: Artificial Tears SOLN 15 ML BOTTLE BOTH EYES SCH (12:37)
== END 2016-11-16 16:25 | disposition home or self-care (01) | DRG 291 ==
LOC: 2NENU 13:44 → EMEROO 13:44 → 2NENU 17:25 → SUATTDRO 19:39
PROVIDERS: ADMIT Nurse Practitioner Acute Care; ATTEND Internal Medicine

== ENCOUNTER 2016-11-29 15:31 | Inpatient (IN) ==
--- NOTE | 2016-11-29 16:19 | Emergency Department Note ---
Disposition Clinical Impression: Supratherapeutic INR, Acute exacerbation of chronic obstructive airways disease , Bilateral lower extremity edema Dyspnea Qualifiers: Dyspnea type: dyspnea on exertion Qualified Code(s): R06.09 - Other forms of dyspnea CHF exacerbation Qualifiers: Congestive heart failure type: diastolic Qualified Code(s): I50.33 - Acute on chronic diastolic (congestive) heart failure Disposition: Admitted As Inpatient Condition: Good Referrals: NO,PCP [Non-Partnered Physician] - Forms: ED Satisfaction Letter General Adult HPI - General Chief complaint: ED Shortness of Breath/Dyspnea Stated complaint: SOB swelling Time Seen by Provider: 11/29/16 16:15 Source: patient Limitations: no limitations Nursing Notes Reviewed: Yes Vital Signs Reviewed: Yes - History of Present Illness HPI Narrative: 66 yo F presents PMHx diastolic CHF, Afib, COPD on 3L O2 at home, asthma. Pt states that she was admitted to the hospital for worsening CHF a few weeks ago and since that time she has continued to have lower leg swelling and SOB. Pt states that since she has been discharged from the hospital she feels like " a cake that is not fully cooked in the center" and she has not gotten all her symptoms fully addressed. She states that she has been getting oxygen saturations into the mid 70s when she gets up walking while on her home oxygen and has also had some intermmitent chest pain when this happens. Pt states that her SOB gets worse with increased activity, better with rest. She has had some clear-orellana sputum production. SHe uses 3L NC at home and has increased it to 3.5L recently. SHe states that her LE extremity swelling has also gotten worse the past week and "feel tight". Pt recently saw her PCP on sunday for similar symptoms, at that time she was switched from lasix to bumex. She states she has now been on the bumex for about 5 days and not had improvement of her swelling. Pt states she also felt cold this morning. She denies headache, change in vision. Pt Subjective Complaint: dyspnea, swelling Onset (ago): week(s) Location: chest, left, right, lower extremity Pain Scale: 5 Quality: aching Consistency: constant, Worsening Improves with: nothing Worsens with: movement Associated symptoms: Reports: cough, shortness of breath Treatments Prior to Arrival: other - Related Data Home Medications Medication Instructions Recorded Confirmed Alendronate Sodium [Fosamax] 70 mg PO QWEEK 10/28/15 11/13/16 Ascorbate Calcium [Vitamin C] 500 mg PO DAILY 10/28/15 11/13/16 Cholecalciferol (Vitamin D3) 1,000 unit PO DAILY 10/28/15 11/13/16 [Vitamin D3] Cyanocobalamin (Vitamin B-12) 100 mcg PO DAILY 10/28/15 11/13/16 [Vitamin B-12] Potassium Chloride [K-Tab ER] 20 meq PO DAILY 10/28/15 11/13/16 Tiotropium [Spiriva] 1 cap IH HS 10/28/15 11/13/16 Warfarin [Coumadin] 5 mg PO QPM 10/28/15 11/13/16 Dexlansoprazole [Dexilant] 60 mg PO DAILY 07/03/16 11/13/16 Ferrous Sulfate [Iron] 325 mg PO DAILY 07/03/16 11/13/16 Acetaminophen/Diphenhydramine 2 tab PO HS 09/09/16 11/13/16 [Acetaminophen Pm Caplet] Albuterol Sulfate [Proventil Hfa] 2 puff IH Q4H PRN 09/14/16 11/13/16 Calcium Carbonate [Calcium] 500 mg PO BID 09/29/16 11/23/16 Oxygen 3 l IH AD 10/24/16 11/23/16 Bumetanide [Bumex] 1 mg PO BID 11/23/16 11/23/16 Previous Rx's Medication Instructions Recorded Sotalol [Betapace] 160 mg PO Q12HR #120 tablet 10/27/16 Albuterol Neb [Proventil Neb] 2.5 mg IH Q4H PRN #1 inhsol 11/16/16 Fluticasone/Salmeterol [Advair 1 puff IH BID #1 blst.w.dev 11/16/16 250-50 Diskus] Allergies Allergy/AdvReac Type Severity Reaction Status Date / Time albuterol Allergy Difficulty Verified 09/29/16 11:04 Breathing aspirin [ASA] Allergy Difficulty Verified 09/29/16 11:04 Breathing Penicillins Allergy Hives Verified 09/29/16 11:04 Sulfa (Sulfonamide Allergy Rash Verified 09/29/16 11:04 Antibiotics) All systems ED: reviewed and negative except as stated. Constitutional: Reports: weight change (+3-4lbs weight gain). Denies: fever, chills, weakness Eyes: Denies: eye pain, eye discharge, vision change ENT ED: Denies: ear pain, throat pain, dental pain Cardiovascular: Reports: dyspnea on exertion, edema. Denies: chest pain, palpitations, syncope Respiratory: Reports: cough, dyspnea, wheezes, sputum production (clear-orellana). Denies: hemoptysis Gastrointestinal: Denies: abdominal pain, nausea, vomiting, diarrhea, constipation, hematemesis, melena, hematochezia Genitourinary: Denies: urgency, dysuria, frequency, hematuria Musculoskeletal: Denies: back pain, neck pain Integumentary: Denies: rash, abrasion, lesions Neurological: Denies: headache, weakness, numbness, paresthesias, confusion, abnormal gait, vertigo Psychiatric: Denies: anxiety, depression, suicidal thoughts, homicidal thoughts , auditory hallucinations, visual hallucinations Past Medical History - Past Medical History Attestation: Yes The following information was validated with the patient. Medical history: Reports: asthma, atrial fibrillation, CHF (diastolic), COPD, hypertension Surgical history: Reports: cholecystectomy, hysterectomy Psychiatric history: Reports: no psych history CERTIFICATION AND SELECTION SPECIALIST history: Reports: no CERTIFICATION AND SELECTION SPECIALIST history - Social History Smoking Status: Former smoker Smokeless Tobacco Status: No Alcohol use: Reports: none Drug use: Reports: none Physical Exam - General Limitations: no limitations General appearance: alert - Head Head exam: atraumatic, normocephalic, normal inspection - Eye Eye exam: Present: normal appearance, PERRL, EOMI - ENT ENT exam: normal oropharynx (MP4), mucous membranes moist - Neck Neck exam: Present: normal inspection, full ROM, trachea midline. Absent: tenderness - Chest Chest inspection: Present: normal inspection, symmetric chest wall rise. Absent : tenderness - Respiratory Respiratory exam: Present: wheezes (mild scattered). Absent: respiratory distress, accessory muscle use - Expanded Respiratory Exam Location: wheezes: Left, Right, Upper, Lower (mild scattered throughout anteror and posterior), rales: Left, Right, Lower (b/l middle and lower lung watson), decreased breath sounds: Left, Right (throughout ) - Cardiovascular Cardiovascular exam: Present: regular rate, normal rhythm, normal heart sounds, +S1, +S2 - Abdominal Exam Abdominal exam: Present: soft, Non-Tender, normal bowel sounds. Absent: tenderness, distention, guarding, rebound, rigidity - Rectal Exam Rectal exam: Present: deferred - Extremities Exam Extremities exam: Present: normal capillary refill, pedal edema (3+ b/l LE edema ). Absent: calf tenderness - Expanded Lower Extremity Exam Lower leg exam: Present: swelling (3+pitting b/l LE). Absent: laceration, ecchymosis, deformity Neurovascular/Tendon exam: Absent: pulse deficit, motor deficit, sensory deficit - Back Exam Back exam: Present: normal inspection, full ROM - Neurological Exam Neurological exam: Present: alert, oriented X3, CN II-XII intact - Psychiatric Psychiatric exam: Present: normal affect, normal mood - Skin Skin exam: Present: warm, dry, intact, normal color Course Vital Signs Temperature 98.2 F 11/29/16 15:35 Pulse Rate 63 11/29/16 15:35 Respiratory Rate 20 11/29/16 15:35 Blood Pressure 149/73 11/29/16 15:35 O2 Sat by Pulse Oximetry 94 11/29/16 15:35 Temperature 98.2 F 11/29/16 15:35 Pulse Rate 63 11/29/16 15:35 Respiratory Rate 20 11/29/16 15:35 Blood Pressure 149/73 11/29/16 15:35 O2 Sat by Pulse Oximetry 95 11/29/16 16:31 Oxygen Delivery Oxygen Delivery Nasal Cannula Medical Decision Making - MDM Narrative Medical decision making narrative: no leukocytosis, normal temperature CXR - for acute process INR 3.6 on coumadin Hb 10, near baseline EKG NSR, intermittent PVCs on continuous cardiac monitoring ASA not given, due to allergy likely acute on chronic worsening of diastolic CHF not comfortable going home will need admission - Medical Records Medical records reviewed: Yes I reviewed the patient's medical records. - Lab Data Lab results reviewed: Yes I reviewed the patient's lab results. Result diagrams: 11/29/16 16:11 11/29/16 16:11 Lab Results 11/29/16 11/29/16 11/29/16 Range/Units 16:11 16:11 16:11 WBC 5.8 (4.3-11.1) K/mcL RBC 3.69 L (3.82-4.97) M/mcL Hgb 10.0 L (11.5-15.4) g/dL Hct 34.0 L (35.3-44.9) % MCV 92.1 (83.0-100.0) fL MCH 27.1 L (28.0-33.3) pg MCHC 29.4 L (31.6-35.5) g/dL RDW 15.5 H (11.5-14.5) % Plt Count 137 L (140-400) K/mcL MPV 11.2 (9.4-12.4) fL Immature Gran % 0.7 (0-4) % Seg Neutrophils % 68.5 % Lymphocytes % 18.1 % Monocytes % 10.9 % Eosinophils % 1.6 % Basophils % 0.2 % Neutrophils # 4.0 (1.6-8.9) K/mcL Lymphocytes # 1.0 (0.6-4.6) K/mcL Monocytes # 0.6 (0.0-1.3) K/mcL Eosinophils # 0.1 (0.0-0.6) K/mcL Basophils # 0.0 (0.0-0.2) K/mcL PT 40.7 H (9.4-12.1) Seconds INR 3.6 APTT 40.9 H (26.0-36.0) Seconds Sodium 144 (136-145) mEq/L Potassium 4.0 (3.5-4.5) mEq/L Chloride 101 (98-109) mEq/L Carbon Dioxide 38 H (19-29) mEq/L BUN 22 H (7-20) mg/dL Creatinine 1.04 (0.57-1.11) mg/dL Est GFR ( Amer) > 60 (> 60) Est GFR (Non-Af Amer) 53 L (> 60) BUN/Creatinine Ratio 21 (6-26) Glucose 92 (70-99) mg/dL Calculated Osmolality 301 H (280-300) Lactic Acid (0.5-2.2) mmol/L Calcium 9.4 (8.6-10.8) mg/dL Total Bilirubin 0.3 (0.2-1.2) mg/dL Direct Bilirubin 0.1 (0.0-0.5) mg/dL Indirect Bilirubin 0.2 (0.0-1.2) mg/dL AST 18 (5-34) Units/L ALT 25 (0-55) Units/L Alkaline Phosphatase 54 (38-126) Units/L Troponin I (0-0.03) ng/mL C-Reactive Protein 6 H (Less than 5) mg/L B-Natriuretic Peptide (0-100) pg/mL Serum Total Protein 6.1 (6.0-8.3) g/dL Albumin 3.3 L (3.5-5.0) g/dL Globulin 2.8 (2.4-3.5) g/dL Albumin/Globulin Ratio 1.2 (1.1-2.2) 11/29/16 11/29/16 11/29/16 Range/Units 16:11 16:11 17:01 WBC (4.3-11.1) K/mcL RBC (3.82-4.97) M/mcL Hgb (11.5-15.4) g/dL Hct (35.3-44.9) % MCV (83.0-100.0) fL MCH (28.0-33.3) pg MCHC (31.6-35.5) g/dL RDW (11.5-14.5) % Plt Count (140-400) K/mcL MPV (9.4-12.4) fL Immature Gran % (0-4) % Seg Neutrophils % % Lymphocytes % % Monocytes % % Eosinophils % % Basophils % % Neutrophils # (1.6-8.9) K/mcL Lymphocytes # (0.6-4.6) K/mcL Monocytes # (0.0-1.3) K/mcL Eosinophils # (0.0-0.6) K/mcL Basophils # (0.0-0.2) K/mcL PT (9.4-12.1) Seconds INR APTT (26.0-36.0) Seconds Sodium (136-145) mEq/L Potassium (3.5-4.5) mEq/L Chloride (98-109) mEq/L Carbon Dioxide (19-29) mEq/L BUN (7-20) mg/dL Creatinine (0.57-1.11) mg/dL Est GFR ( Amer) (> 60) Est GFR (Non-Af Amer) (> 60) BUN/Creatinine Ratio (6-26) Glucose (70-99) mg/dL Calculated Osmolality (280-300) Lactic Acid 0.6 (0.5-2.2) mmol/L Calcium (8.6-10.8) mg/dL Total Bilirubin (0.2-1.2) mg/dL Direct Bilirubin (0.0-0.5) mg/dL Indirect Bilirubin (0.0-1.2) mg/dL AST (5-34) Units/L ALT (0-55) Units/L Alkaline Phosphatase (38-126) Units/L Troponin I 0.00 (0-0.03) ng/mL C-Reactive Protein (Less than 5) mg/L B-Natriuretic Peptide 65 (0-100) pg/mL Serum Total Protein (6.0-8.3) g/dL Albumin (3.5-5.0) g/dL Globulin (2.4-3.5) g/dL Albumin/Globulin Ratio (1.1-2.2) - Radiology Data Radiology results reviewed: Yes I reviewed the patient's radiology results. - EKG Data EKG #1 EKG attestation: Yes I reviewed and interpreted this EKG. EKG shows normal: sinus rhythm Rate: bradycardia Rhythm: NSR - Core Measures AMI Core Measures Followed: No (asprin allergy) Critical Care Time Critical Care Time: No
[2016-11-29 16:23] LABS: Basophils % 0.2 %; Eosinophils # 0.1 K/mcL (0.0-0.6); Eosinophils % 1.6 %; Immature Granulocytes % 0.7 % (0-4); Lymphocytes % 18.1 %; Mean Corpuscular HGB Conc 29.4 g/dL (31.6-35.5); Mean Corpuscular Hemoglobin 27.1 pg (28.0-33.3); Mean Corpuscular Volume 92.1 fL (83.0-100.0); Mean Platelet Volume 11.2 fL (9.4-12.4); Monocytes # 0.6 K/mcL (0.0-1.3); Monocytes % 10.9 %; Platelet Count 137 K/mcL (140-400); Red Blood Count 3.69 M/mcL (3.82-4.97); Red Cell Distribution Width 15.5 % (11.5-14.5); Segmented Neutrophils % 68.5 %
[2016-11-29 16:28] LABS: INR 3.6; Prothrombin Time 40.7 Seconds (9.4-12.1)
[2016-11-29 16:30] LABS: Activated Partial Thrombo Time 40.9 Seconds (26.0-36.0)
[2016-11-29 16:39] LABS: Alanine Aminotransferase 25 Units/L (0-55); Albumin 3.3 g/dL (3.5-5.0); Albumin/Globulin Ratio 1.2 (1.1-2.2); Alkaline Phosphatase 54 Units/L (38-126); Aspartate Amino Transferase 18 Units/L (5-34); BUN/Creatinine Ratio 21 (6-26); Bilirubin,Direct 0.1 mg/dL (0.0-0.5); Bilirubin,Indirect 0.2 mg/dL (0.0-1.2); Bilirubin,Total 0.3 mg/dL (0.2-1.2); Blood Urea Nitrogen 22 mg/dL (7-20); C-Reactive Protein 6 mg/L (Less than 5); Calcium 9.4 mg/dL (8.6-10.8); Carbon Dioxide 38 mEq/L (19-29); Chloride 101 mEq/L (98-109); Globulin 2.8 g/dL (2.4-3.5); Glucose 92 mg/dL (70-99); Osmolality,Calculated 301 (280-300); Sodium 144 mEq/L (136-145); Total Protein 6.1 g/dL (6.0-8.3); eGFR For African Americans > 60 (> 60); eGFR For Non-African Americans 53 (> 60)
--- NOTE | 2016-11-29 17:38 | Emergency Department Note ---
START Narrative - START START: I examined and evaluated the patient with the resident and agree with their endings assessment and plan. I spent direct [id number] time with the patient. The patient has a history of heart failure, she describes a 5-6 pound weight gain daily over the last several days. She saw her primary care physician who modified her diuretic regimen but this has not been helpful. The patient states her oxygen saturations been dropping down to 77% on her usual 3 L of oxygen. Patient states that she develops chest pain with exertion particularly when her oxygen levels go low. She has not had a cardiac stress test or heart For 2 and half years. The patient is currently on sotalol for her atrial fibrillation, she appears to be in sinus rhythm at this time. She does throw occasional PVCs on the monitor and does notice these. The patient does not feel comfortable going home based on her increasing edema shortness of breath and chest pain. The patient is allergic to aspirin, she is on Coumadin, her INR is 3.6. Based on the patient's multiple risk factors for vascular disease including obesity, age, hypertension, hyperlipidemia, with comorbid CHF and COPD, who is experiencing chest pain and increased weight gain, I thought it would be appropriate to admit the patient to the hospital, she appears to have significant element of acute on chronic diastolic heart failure.
[2016-11-29] MEDS ORDERED: Acetaminophen 325 MG TABLET PO PRN (20:49)
[2016-11-29] MEDS ORDERED: Furosemide 80 MG in 0.9 % Sodium Chloride 50 ML IVPB ONE (21:15)
[2016-11-29] MEDS ORDERED: Albuterol 2.5 MG/3 ML NEBULIZER IH PRN (21:16)
--- NOTE | 2016-11-29 21:19 | Internal Med History&Physical ---
<Audie Meyer - Last Filed: 11/29/16 21:57> Date of Encounter: 11/29/16 Time of Encounter: 20:00 Assessment and Plan (1) Acute and chronic respiratory failure with hypoxia Current visit: Yes Status: Acute - With reported O2 sat drop to mid 70s on exertion despite of being on 3L home oxygen. - Likely secondary to CHF exacerbation in the setting of COPD and possible underlying OHS. - CXR does not suggest pneumonia. - Patient needs to be admitted for further evaluation and management given her failure to outpatient management. - Aggressive diuresis for CHF exacerbation. - Symbicort and bronchodilators for COPD. - Continue supplemental oxygen. - Closely monitor. (2) CHF exacerbation Current visit: Yes Status: Acute - Worsening extremity edema and dyspnea on exertion. - Last echo in 08/2016 found LVEF 60%. - Likely secondary to inadequate diuresis from recent medication change. - Will give one dose of Lasix 80 mg IV now. - Continue Lasix 40 mg IV BID. - Strict I/O, daily, low salt diet and fluid restriction of 1.5L. - Closely monitor renal function and electrolytes. Qualifiers: Congestive heart failure type: diastolic Qualified Code(s): I50.33 - Acute on chronic diastolic (congestive) heart failure (3) COPD (chronic obstructive pulmonary disease) Current visit: No Status: Chronic - Start Symbicort, Duoneb scheduled and albuterol prn. Qualifiers: COPD type: COPD with acute exacerbation Qualified Code(s): J44.1 - Chronic obstructive pulmonary disease with (acute) exacerbation (4) Paroxysmal atrial fibrillation Current visit: No Status: Chronic - Currently sinus rhythm. - Continue rate control with home dose Sotalol. - Hold Coumadin given current supratherapeutic INR. - Continue to monitor with telemetry. (5) Supratherapeutic INR Current visit: Yes Status: Acute - INR 3.6 on initial presentation. - Will hold Coumadin for now. - May consider vitamin K for reversal if patient develop active sign of bleeding. - Continue to monitor. Internal Medicine - H&P: HPI Chief complaint: Worsening edema and shortness of breath Admitted From: Emergency Dept Plans for Post Hospital Care: Home History of present illness: Ms. Guevara is a 66 year old female with PMH of diastolic CHF (last echo in 2016 showed LVEF 60%), COPD on 3L home oxygen, paroxysmal A-fib on Coumadin and HTN. Patient presented to [facility] with complaint of worsening edema and shortness of breath. Patient reports significant worsening of bilateral lower extremity edema which she describes it's three times bigger than her baseline for past 10 days. She has shortness of breath mostly on exertion for a week with O2 sat dropped to mid 70s on exertion despite of being on 3L oxygen all the time. Patient also reports bilateral upper extremity edema for past 3 days. She reports has intermittent sharp left upper chest pain without radiation on exertion. She also had productive cough with orellana-colored sputum yesterday but not today. Patient reports 4-5 lb of weight gain over one day. Patient denies orthopnea, fever, nausea, vomiting, diarrhea, abdominal pain, dysuria, hematuria , hematochezia, melena, any active bleeding. Patient denies recent travel or known sick contact. Patient had multiple hospitalization for CHF exacerbation in the past with latest one about two weeks ago (11/13 -11/16). Patient reports being compliant to her medications and diet including low salt food and fluid restriction of 1.5L. Patient reports her PCP changed her from Lasix 40 mg PO BID to Bumex 1 mg PO (BID for first two days then daily). But patient feels Bumex works worse than Lasix as her swelling and shortness of breath continue to get worse. Patient also reports her PCP started her on spirolactone two days ago. Patient is full code. Past Med Surg Social Fam HX - Past Medical History Medical history: asthma, atrial fibrillation, CHF (diastolic), COPD, hypertension Psychiatric history: no psych history - Past Surgical History Surgical History: cholecystectomy, hysterectomy - Social History Smoking Status: Former smoker Smokeless Tobacco Status: No Alcohol use: none Drug use: none - Family History Sister Living Status: Hx Family Cardiac Disorders: Yes Hx Family Respiratory Disorders: Yes (copd) Mother Adopted: No Family Member Ethnicity: Non- Twin of Family Member: Yes, Fraternal Living Status: Hx Family Cardiac Disorders: Yes (chf) Hx Family Respiratory Disorders: No Hx Family Cancer: No Hx Family GI Disorders: No Hx Family Endocrine Disorder: No Hx Family Neuromuscular Disorders: No Hx Family Neurologic Disorders: No Hx Family HEENT Disorders: Yes (tumor in rt ear benign at age 60) Hx Family Autoimmune Disorders: No Father Adopted: No Family Member Ethnicity: Non- Twin of Family Member: Yes, Fraternal Living Status: Hx Family Cardiac Disorders: Yes (father, grandfather,self) Hx Family Respiratory Disorders: Yes (self,sister) Hx Family Cancer: No Hx Family GI Disorders: Yes (self) Hx Family Endocrine Disorder: No Hx Family Neuromuscular Disorders: No Hx Family Neurologic Disorders: No Hx Family HEENT Disorders: No Hx Family Autoimmune Disorders: No Internal Medicine - H&P: Meds Alendronate Sodium [Fosamax] 70 mg PO QWEEK 10/28/15 [History] Ascorbate Calcium [Vitamin C] 500 mg PO DAILY 10/28/15 [History] Cholecalciferol (Vitamin D3) [Vitamin D3] 1,000 unit PO DAILY 10/28/15 [History] Cyanocobalamin (Vitamin B-12) [Vitamin B-12] 100 mcg PO DAILY 10/28/15 [History] Potassium Chloride [K-Tab ER] 20 meq PO DAILY 10/28/15 [History] Tiotropium [Spiriva] 18 mcg IH HS 10/28/15 [History] Warfarin [Coumadin] 5 mg PO QPM 10/28/15 [History] Dexlansoprazole [Dexilant] 60 mg PO DAILY 07/03/16 [History] Ferrous Sulfate [Iron] 325 mg PO DAILY 07/03/16 [History] Acetaminophen/Diphenhydramine [Acetaminophen Pm Caplet] 2 tab PO HS 09/09/16 [ History] Albuterol Sulfate [Proventil Hfa] 2 puff IH Q4H PRN 09/14/16 [History] Calcium Carbonate [Calcium] 500 mg PO BID 09/29/16 [History] Oxygen 3 l IH AD 10/24/16 [History] Sotalol [Betapace] 160 mg PO Q12HR #120 tablet 10/27/16 [Rx] Albuterol Neb [Proventil Neb] 2.5 mg IH Q4H PRN #1 inhsol 11/16/16 [Rx] Fluticasone/Salmeterol [Advair 250-50 Diskus] 1 puff IH BID #1 blst.w.dev [Rx] Bumetanide [Bumex] 1 mg PO BID 11/23/16 [History] Montelukast [Singulair] 10 mg PO DAILY 11/29/16 [History] Ropinirole HCl [Requip] 2 mg PO HS 11/29/16 [History] Spironolactone [Aldactone] 50 mg PO DAILY 11/29/16 [History] Allergies albuterol Allergy (Verified 09/29/16 11:04) Difficulty Breathing aspirin [ASA] Allergy (Verified 09/29/16 11:04) Difficulty Breathing Penicillins Allergy (Verified 09/29/16 11:04) Hives Sulfa (Sulfonamide Antibiotics) Allergy (Verified 09/29/16 11:04) Rash All Systems PM: A 10-system review of systems was performed and is negative for pertinent findings except as documented above in the HPI. - Constitutional Constitutional: chills (Occasional), weight gain (4-5 lbs over a day.), no fever (s) - EENT Eyes: no change in vision Ears: no decreased hearing Nose, mouth and throat: no dysphagia - Cardiovascular Cardiovascular ROS IM: as per HPI, edema, palpitations (Patient reports she can feel her A-fib), no diaphoresis, no lightheadedness, no syncope - Respiratory Respiratory: as per HPI, cough, dyspnea, change in phlegm color, no hemoptysis - Gastrointestinal Gastrointestinal: no abdominal pain, no diarrhea, no hematochezia, no melena, no nausea, no vomiting - Genitourinary Genitourinary: no difficulty urinating, no dysuria, no hematuria - Musculoskeletal Musculoskeletal ROS IM: no arthralgias, no myalgias - Integumentary Integumentary IM: no pruritus, no rash - Neurological Neurological ROS: no focal weakness, no numbness, no tingling - Hematologic/Lymphatic Hematologic/Lymphatic: easy bruising, no easy bleeding - Constitutional Vitals: Temp Pulse Resp BP Pulse Ox 98.2 F 63 18 148/63 95 11/29/16 15:35 11/29/16 15:35 11/29/16 19:23 11/29/16 19:23 11/29/16 16:31 General appearance: Present: cooperative, A&O X 3, no acute distress, obese, answers questions appropriately - Head Head exam: Present: atraumatic, normocephalic - Eye Eye exam: Present: EOMI, PERRL, conjuntiva pink, sclera anicteric - Neck Neck exam general surgery: Present: supple, trachea midline. Absent: lymphadenopathy - Respiratory Respiratory exam: Present: decreased breath sounds, rales (Bibasilar). Absent: accessory muscle use, chest wall tenderness, rhonchi, wheezes - Cardiovascular Cardiovascular exam: Present: RRR, +S1, +S2. Absent: diastolic murmur, gallop, rubs, systolic murmur - GI/Abdominal GI/Abdominal exam: Present: normal bowel sounds, soft, no peritoneal signs. Absent: distended, tenderness - Extremities Exam Extremities exam: Present: warm, radial pulses palpable and symetrical. Absent : calf tenderness, cyanotic Additional comments: Severe bilateral lower extremity pitting edema. Mild bilateral upper extremity non-pitting edema. - Neurological Exam Neurological exam: Present: CN II-XII intact, oriented X3, no focal deficits. Absent: pronater drift, facial droop, speech deficit - Skin Skin exam: Present: dry, intact, warm Internal Med - H&P Results - Labs CBC & Chem 7: 11/29/16 16:11 11/29/16 16:11 Labs: Short CBC 11/29/16 Range/Units 16:11 WBC 5.8 (4.3-11.1) K/mcL Hgb 10.0 L (11.5-15.4) g/dL Hct 34.0 L (35.3-44.9) % Plt Count 137 L (140-400) K/mcL Neutrophils # 4.0 (1.6-8.9) K/mcL BMP 11/29/16 Range/Units 16:11 Sodium 144 (136-145) mEq/L Potassium 4.0 (3.5-4.5) mEq/L Chloride 101 (98-109) mEq/L Carbon Dioxide 38 H (19-29) mEq/L BUN 22 H (7-20) mg/dL Creatinine 1.04 (0.57-1.11) mg/dL Glucose 92 (70-99) mg/dL Calcium 9.4 (8.6-10.8) mg/dL Cardiac Enzymes 11/29/16 Range/Units 16:11 Troponin I 0.00 (0-0.03) ng/mL Liver Function 11/29/16 Range/Units 16:11 Total Bilirubin 0.3 (0.2-1.2) mg/dL Direct Bilirubin 0.1 (0.0-0.5) mg/dL AST 18 (5-34) Units/L ALT 25 (0-55) Units/L Alkaline Phosphatase 54 (38-126) Units/L Albumin 3.3 L (3.5-5.0) g/dL - Impressions Impressions Chest X-Ray 11/29/16 16:17 IMPRESSION: Stable appearance the chest with no evidence of acute disease. D/ / Vivek Llanes MD / Vivek Llanes MD Interpreting Provider: Vivek Llanes MD <Vivek Grant - Last Filed: 11/30/16 00:28> Date of Encounter: 11/29/16 Internal Medicine - H&P: HPI History of present illness: Ms. Guevara is a 66 year old female All Systems PM: A 10-system review of systems was performed and is negative for pertinent findings except as documented above in the HPI. - Constitutional Vitals: Temp Pulse Resp BP Pulse Ox 98.1 F 63 22 132/59 97 11/29/16 23:33 11/29/16 23:33 11/29/16 23:33 11/29/16 23:33 11/29/16 23:33 Internal Med - H&P Results - Labs CBC & Chem 7: 11/29/16 16:11 11/29/16 16:11 Labs: Urine 11/29/16 Range/Units 23:30 Urine Color Yellow (Yellow) Urine Clarity Clear (Clear) Urine pH 5.5 (5.0-8.0) pH Units Ur Specific [place] 1.029 H (1.010-1.025) Urine Protein Negative (Neg-Trace) mg/dL Urine Glucose (UA) Normal (Normal) mg/dL - Diagnostic Studies Chest x-ray Status: image reviewed by me - Attending Attestation I personally interviewed and examined this patient and my medical decision- making was reviewed with the Resident Physician. I agree with the documented findings, disposition and treatment plan as described.
[2016-11-29] MEDS: Ipratropium/Albuterol Neb 3 ML IH SCH (22:21)
[2016-11-29] MEDS: Budesonide/Formoterol 160/4.5 MDI IH SCH (22:23)
[2016-11-29] MEDS ORDERED: *HR* Heparin 5,000 UNIT/ML VIAL SQ SCH (22:30)
[2016-11-29] MEDS ORDERED: *HR* Warfarin 5 MG TABLET PO SCH (22:45)
[2016-11-30 00:13] LABS: Bilirubin,Urine Negative (Negative); Blood,Urine Negative (Negative); Clarity,Urine Clear (Clear); Color,Urine Yellow (Yellow); Glucose,Urine (UA) Normal (Normal); Ketones,Urine Negative (Negative); Leukocyte Esterase,Urine Negative (Negative); Nitrite,Urine Negative (Negative); PH,Urine 5.5 pH Units (5.0-8.0); Protein,Urine Negative (Neg-Trace); Specific Gravity,Urine 1.029 (1.010-1.025); Urobilinogen,Urine Normal (Normal)
[2016-11-30] MEDS: Ipratropium/Albuterol Neb 3 ML IH SCH ×4 (04:15→21:56)
[2016-11-30 04:59] LABS: INR 3.5; Prothrombin Time 39.5 Seconds (9.4-12.1)
[2016-11-30 05:00] LABS: Basophils % 0.4 %; Eosinophils # 0.1 K/mcL (0.0-0.6); Hematocrit 32.5 % (35.3-44.9); Hemoglobin 9.7 g/dL (11.5-15.4); Immature Granulocytes % 0.6 % (0-4); Lymphocytes # 1.2 K/mcL (0.6-4.6); Mean Corpuscular HGB Conc 29.8 g/dL (31.6-35.5); Mean Corpuscular Hemoglobin 27.7 pg (28.0-33.3); Mean Corpuscular Volume 92.9 fL (83.0-100.0); Mean Platelet Volume 12.2 fL (9.4-12.4); Monocytes # 0.7 K/mcL (0.0-1.3); Monocytes % 13.7 %; Neutrophils # 3.3 K/mcL (1.6-8.9); Platelet Count 145 K/mcL (140-400); Red Cell Distribution Width 15.7 % (11.5-14.5); Segmented Neutrophils % 61.3 %
[2016-11-30 05:19] LABS: BUN/Creatinine Ratio 28 (6-26); Blood Urea Nitrogen 24 mg/dL (7-20); Carbon Dioxide 37 mEq/L (19-29); Chloride 103 mEq/L (98-109); Glucose 105 mg/dL (70-99); Magnesium 1.8 mg/dL (1.6-2.6); Osmolality,Calculated 308 (280-300); Potassium 3.8 mEq/L (3.5-4.5); Sodium 147 mEq/L (136-145); eGFR For African Americans > 60 (> 60); eGFR For Non-African Americans > 60 (> 60)
[2016-11-30] MEDS ORDERED: Furosemide 20 MG/2 ML VIAL IVP STA (05:44)
[2016-11-30] MEDS: Cyanocobalamin (B-12) 1,000 MCG TABLET PO SCH (07:59)
[2016-11-30] MEDS: Furosemide 40 MG/4 ML VIAL IVP SCH ×2 (07:59→20:48)
[2016-11-30] MEDS: Cholecalciferol (D-3) 1,000 UNIT TABLET PO SCH (07:59)
[2016-11-30] MEDS ORDERED: (Dexlansoprazole [Dexilant] 60 MG) PO SCH (09:00)
[2016-11-30] MEDS: Budesonide/Formoterol 160/4.5 MDI IH SCH ×2 (10:06→21:56)
--- NOTE | 2016-11-30 17:03 | Internal Med Progress Note ---
<JoseLynsey leong - Last Filed: 11/30/16 17:00> Date of Encounter: 11/30/16 Time of Encounter: 17:00 - Assessment and plan (1) CHF exacerbation Current Visit: Yes Status: Acute Assessment and plan: patient reports worsening LE edema, SOB, Last echo from 08/13/16 showed LVEF 60%, normal LV size and systolic funciton, moderate concentric LVH, RV mildly dilated with normal function. CXR showed bilateral pleural effusions. patient has had many hospital admission since August due to CHF exacerbations. etiology likely secondary to medication change. patient reports that her PCP recently changed her form lasix to bumex, and she states that bumex does not work as well for her. BNP 63 Plan: Lasix 40mg BID add metolazone 5mg PO daily starting tomorrow. continue to monitor kidney function magnesium potassium supplementation daily Qualifiers: Congestive heart failure type: diastolic Qualified Code(s): I50.33 - Acute on chronic diastolic (congestive) heart failure (2) Acute and chronic respiratory failure with hypoxia Current Visit: Yes Status: Acute Assessment and plan: patient reported oxygen desat to 70s with exertion. etiology likely secondary to CHF eacerbation in setting of COPD, consider OHS as a possible diagnosis. (3) COPD (chronic obstructive pulmonary disease) Current Visit: No Status: Chronic Assessment and plan: does not appear to be in exacerbation. On 3L home oxygen. continue Duoneb, symbicort, albuterol PRN Qualifiers: COPD type: COPD with acute exacerbation Qualified Code(s): J44.1 - Chronic obstructive pulmonary disease with (acute) exacerbation (4) Paroxysmal atrial fibrillation Current Visit: No Status: Chronic Assessment and plan: Patient had cardioversion on 10/27/16. She has a history of failed therapy on amiodarone. She was told by cardiology that she is not a good candidate for ablation therapy. Plan: continue warfarin (dosed by pharmacy), sotalol (5) DVT prophylaxis Current Visit: No Status: Acute Assessment and plan: pharmacy dosing warfarin. - Subjective Interval history: 66 year old female evaluated at bedside. atient denies nausea, vomiting, diarrehea. she reports some chills, shortness of breath with exertion, and fatigue. she has gained about 15 pounds in the last two weeks. patient states that she is compliant with taking her lasix at home, weighing herself daily, and doing a fluid restricted diet. she is concerned about her repeated hospitalizations for acute CHF, and would like to know what can be done to prevent further hospitalizations. she has no further complaints today. - Constitutional Vitals: Temp Pulse Resp BP Pulse Ox 97.8 F 67 16 150/70 99 11/30/16 16:42 11/30/16 16:42 11/30/16 16:42 11/30/16 16:42 11/30/16 16:42 General appearance: Present: cooperative, A&O X 3, no acute distress, obese, answers questions appropriately - Head Head exam: Present: atraumatic, normocephalic - Neck Neck exam general surgery: Present: supple, trachea midline - Respiratory Respiratory exam: Present: wheezes (wheezing present in left uper lobe and bilateral lower lobes. ) - Cardiovascular Cardiovascular exam: Present: RRR, +S1, +S2. Absent: JVD - GI/Abdominal GI/Abdominal exam: Present: distended, firm, soft. Absent: tenderness - Extremities Exam Extremities exam: Present: pedal edema (+3 bilateral lower extremity pitting edema up to knees. +1 upper extremity pitting edema bilaterally ). Absent: cyanotic - Neurological Exam Neurological exam: Present: alert, oriented X3, no focal deficits - Psychiatric Psychiatric exam: Present: normal mood Internal Medicine: Result - Labs CBC & Chem 7: 11/30/16 04:12 11/30/16 04:12 Labs: Short CBC 11/30/16 Range/Units 04:12 WBC 5.4 (4.3-11.1) K/mcL Hgb 9.7 L (11.5-15.4) g/dL Hct 32.5 L (35.3-44.9) % Plt Count 145 (140-400) K/mcL Neutrophils # 3.3 (1.6-8.9) K/mcL BMP 11/30/16 04:12 Sodium 147 H Potassium 3.8 Chloride 103 Carbon Dioxide 37 H BUN 24 H Creatinine 0.85 Glucose 105 H Calcium 9.0 - ABG Interpretation ABG results: PT/INR, D-dimer PT 39.5 Seconds (9.4-12.1) H 11/30/16 04:12 Consult Discharge Plan - Plan Referrals: Lisbet Ray, TELEPHONE SEX WORKER [Primary Care Provider] - <Adolfo Shukla P - Last Filed: 11/30/16 18:09> Date of Encounter: 11/30/16 - Constitutional Vitals: Temp Pulse Resp BP Pulse Ox 97.8 F 67 16 150/70 99 11/30/16 16:42 11/30/16 16:42 11/30/16 16:42 11/30/16 16:42 11/30/16 16:42 Internal Medicine: Result - Labs CBC & Chem 7: 11/30/16 04:12 11/30/16 04:12 Labs: Short CBC 11/30/16 Range/Units 04:12 WBC 5.4 (4.3-11.1) K/mcL Hgb 9.7 L (11.5-15.4) g/dL Hct 32.5 L (35.3-44.9) % Plt Count 145 (140-400) K/mcL Neutrophils # 3.3 (1.6-8.9) K/mcL BMP 11/30/16 04:12 Sodium 147 H Potassium 3.8 Chloride 103 Carbon Dioxide 37 H BUN 24 H Creatinine 0.85 Glucose 105 H Calcium 9.0 - ABG Interpretation ABG results: PT/INR, D-dimer PT 39.5 Seconds (9.4-12.1) H 11/30/16 04:12 - Attending Attestation I examined this patient and my medical decision-making was reviewed with the SERVICE LINE COORDINATOR/PA/Advanced Practice Nurse/Resident Physician. I agree with the documented findings, disposition and treatment plan as described except to the extent set forth below.
[2016-11-30] MEDS ORDERED: Warfarin perPT PO PRN (18:00)
--- NOTE | 2016-11-30 19:28 | Electrocardiograph Report ---
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
[2016-11-30] MEDS: Naphazoline/Pheniramine Opth 15 ML BOTTLE BOTH EYES PRN (19:36)
[2016-11-30] MEDS: Magnesium Oxide 400 MG TABLET PO SCH (20:45)
[2016-11-30] MEDS: rOPINIRole 1 MG TABLET PO SCH (20:47)
[2016-11-30] MEDS: Potassium Chloride Elixir 20 MEQ/15 ML UDC PO SCH (20:48)
[2016-11-30] MEDS ORDERED: Tiotropium 18 MCG inhalation IH SCH (21:00)
[2016-12-01] MEDS: Ipratropium/Albuterol Neb 3 ML IH SCH ×4 (03:28→22:11)
[2016-12-01] MEDS: metOLazone 5 MG TABLET PO SCH ×2 (06:20→09:46)
[2016-12-01 06:32] LABS: Mean Corpuscular Volume 91.9 fL (83.0-100.0)
[2016-12-01 06:33] LABS: Eosinophils # 0.1 K/mcL (0.0-0.6); Hemoglobin 10.5 g/dL (11.5-15.4); Mean Corpuscular Hemoglobin 27.6 pg (28.0-33.3); Mean Platelet Volume 12.7 fL (9.4-12.4); Platelet Count 142 K/mcL (140-400); Red Blood Count 3.81 M/mcL (3.82-4.97); Red Cell Distribution Width 15.5 % (11.5-14.5)
[2016-12-01 06:37] LABS: INR 2.2; Ionized Calcium 1.18 mmol/L (1.15-1.35); Prothrombin Time 24.7 Seconds (9.4-12.1)
[2016-12-01 07:05] LABS: BUN/Creatinine Ratio 31 (6-26); Blood Urea Nitrogen 26 mg/dL (7-20); Calcium 9.5 mg/dL (8.6-10.8); Carbon Dioxide 34 mEq/L (19-29); Chloride 99 mEq/L (98-109); Glucose 105 mg/dL (70-99); Magnesium 2.3 mg/dL (1.6-2.6); Osmolality,Calculated 307 (280-300); Sodium 146 mEq/L (136-145); eGFR For African Americans > 60 (> 60); eGFR For Non-African Americans > 60 (> 60)
[2016-12-01 08:20] LABS: Monocytes # 0.2 K/mcL (0.0-1.3)
[2016-12-01 08:23] LABS: Basophilic Stippling 1+ (Not Present); Hypochromasia Present (Not Present); Platelet Estimate Normal (Normal)
[2016-12-01] MEDS: Cholecalciferol (D-3) 1,000 UNIT TABLET PO SCH (09:40)
[2016-12-01] MEDS: Magnesium Oxide 400 MG TABLET PO SCH ×2 (09:40→20:58)
[2016-12-01] MEDS: Cyanocobalamin (B-12) 1,000 MCG TABLET PO SCH (09:40)
[2016-12-01] MEDS: Furosemide 40 MG/4 ML VIAL IVP SCH ×2 (09:40→20:59)
[2016-12-01] MEDS: Potassium Chloride Elixir 20 MEQ/15 ML UDC PO SCH ×2 (09:46→20:59)
[2016-12-01] MEDS: Naphazoline/Pheniramine Opth 15 ML BOTTLE BOTH EYES PRN (09:55)
[2016-12-01] MEDS: Budesonide/Formoterol 160/4.5 MDI IH SCH ×2 (10:46→22:11)
--- NOTE | 2016-12-01 11:31 | Internal Med Progress Note ---
Addendum entered and electronically signed by Lynsey Kaur DO 12/01/16 14:45 : A/P 6. Anemia. Likely Anemia of chronic disease, based on previous labs. Patient states she had colonoscopy 3 years ago (in [place]) with 3 polyps removed, and has not had a colonoscopy since. At that time, her repeat colonoscopy was recommended in 3 years. plan: Will check CT A/P with contrast. continue ferrous sulfate patient would benefit from outpatient colonoscopy after discharge. Original Note: <Lynsey Kaur - Last Filed: 12/01/16 11:13> Date of Encounter: 12/01/16 Time of Encounter: 11:13 - Assessment and plan (1) CHF exacerbation Current Visit: Yes Status: Acute Assessment and plan: patient reports worsening LE edema, SOB, Last echo from 08/13/16 showed LVEF 60%, normal LV size and systolic funciton, moderate concentric LVH, RV mildly dilated with normal function. CXR showed bilateral pleural effusions. patient has had many hospital admission since August due to CHF exacerbations. etiology likely secondary to medication change. patient reports that her PCP recently changed her form lasix to bumex, and she states that bumex does not work as well for her. BNP 63 Plan: Lasix 40mg BID add metolazone 5mg PO daily starting tomorrow. continue to monitor kidney function magnesium potassium supplementation daily 12/01/16: patient was net negative 3.7L in the past 24 hours continue with fluid restriction, strict I/O will switch to IV lasix 40mg daily tomorrow. continue metolazone 6mg daily will check for other causes of possible repeat CHF exacerbations check TSH, urinalysis, urine microalbumin, protein to Cr ratio, uric acid. Qualifiers: Congestive heart failure type: diastolic Qualified Code(s): I50.33 - Acute on chronic diastolic (congestive) heart failure (2) Acute and chronic respiratory failure with hypoxia Current Visit: Yes Status: Acute Assessment and plan: patient reported oxygen desat to 70s with exertion. etiology likely secondary to CHF eacerbation in setting of COPD, consider OHS as a possible diagnosis. plan as above (3) COPD (chronic obstructive pulmonary disease) Current Visit: No Status: Chronic Assessment and plan: does not appear to be in exacerbation. On 3L home oxygen. continue Duoneb, symbicort, albuterol PRN Qualifiers: COPD type: COPD with acute exacerbation Qualified Code(s): J44.1 - Chronic obstructive pulmonary disease with (acute) exacerbation (4) Paroxysmal atrial fibrillation Current Visit: No Status: Chronic Assessment and plan: Patient had cardioversion on 10/27/16. She has a history of failed therapy on amiodarone. She was told by cardiology that she is not a good candidate for ablation therapy due to her body habitus and COPD. Plan: continue warfarin (dosed by pharmacy), sotalol (5) DVT prophylaxis Current Visit: No Status: Acute Assessment and plan: pharmacy dosing warfarin. - Subjective Interval history: 66 year old female evaluated at bedside. had extensive conversation with patient about why she has had repeat hospitalizations for COPD exacerbations. she states that she follows a strict diet with fluid restriction, low salt, eats lots of vegetables (fish, brussel sprouts, fruit salad), was in the room. states that every morning he fills her cup up with 32 oz of diet coke before he leaves for work. he expresses his frustrations with the repeat hospitalizations as well. patient also states that she had her last colonoscopy 3-4 years ago and has had 3 polyps removed, and at that time she was recommended to have a follow up colonoscopy in 3 years, and she is due for another one. Patient admits to SOB when lying flat. - Constitutional Vitals: Temp Pulse Resp BP Pulse Ox 97.9 F 68 16 136/54 99 12/01/16 06:37 12/01/16 06:37 12/01/16 06:37 12/01/16 06:37 12/01/16 06:37 General appearance: Present: cooperative, A&O X 3, no acute distress, obese, answers questions appropriately - Head Head exam: Present: atraumatic, normocephalic - Neck Neck exam general surgery: Present: supple, trachea midline - Respiratory Respiratory exam: Present: decreased breath sounds - Cardiovascular Cardiovascular exam: Present: RRR - GI/Abdominal GI/Abdominal exam: Present: distended, soft. Absent: tenderness Additional comments: lots of striae present. - Extremities Exam Extremities exam: Present: pedal edema (+3 pitting edema bilateral lower extremity). Absent: cyanotic - Neurological Exam Neurological exam: Present: alert, oriented X3, no focal deficits - Psychiatric Psychiatric exam: Present: anxious Internal Medicine: Result - Labs CBC & Chem 7: 12/01/16 05:12 12/01/16 05:12 Labs: Short CBC 12/01/16 Range/Units 05:12 WBC 5.3 (4.3-11.1) K/mcL Hgb 10.5 L (11.5-15.4) g/dL Hct 35.0 L (35.3-44.9) % Plt Count 142 (140-400) K/mcL Neutrophils # 3.0 (1.6-8.9) K/mcL BMP 12/01/16 05:12 Sodium 146 H Potassium 4.0 Chloride 99 Carbon Dioxide 34 H BUN 26 H Creatinine 0.85 Glucose 105 H Calcium 9.5 - ABG Interpretation ABG results: PT/INR, D-dimer PT 24.7 Seconds (9.4-12.1) H 12/01/16 05:12 - VTE Documentation of Mechanical Device: Intermittent pneumatic compression device Consult Discharge Plan - Plan Referrals: Lisbet Ray, ADMINISTRATIVE PERSONAL ASSISTANT [Primary Care Provider] - <Adolfo Shukla P - Last Filed: 12/01/16 18:23> Date of Encounter: 12/01/16 - Constitutional Vitals: Temp Pulse Resp BP Pulse Ox 98.2 F 72 16 149/62 99 12/01/16 15:15 12/01/16 15:15 12/01/16 15:48 12/01/16 15:15 12/01/16 15:48 Internal Medicine: Result - Labs CBC & Chem 7: 12/01/16 05:12 12/01/16 05:12 Labs: Short CBC 12/01/16 Range/Units 05:12 WBC 5.3 (4.3-11.1) K/mcL Hgb 10.5 L (11.5-15.4) g/dL Hct 35.0 L (35.3-44.9) % Plt Count 142 (140-400) K/mcL Neutrophils # 3.0 (1.6-8.9) K/mcL BMP 12/01/16 05:12 Sodium 146 H Potassium 4.0 Chloride 99 Carbon Dioxide 34 H BUN 26 H Creatinine 0.85 Glucose 105 H Calcium 9.5 Urine 12/01/16 Range/Units 16:37 Urine Color Yellow (Yellow) Urine Clarity Clear (Clear) Urine pH 6.0 (5.0-8.0) pH Units Ur Specific [place] 1.015 (1.010-1.025) Urine Protein Negative (Neg-Trace) mg/dL Urine Glucose (UA) Normal (Normal) mg/dL - ABG Interpretation ABG results: PT/INR, D-dimer PT 24.7 Seconds (9.4-12.1) H 12/01/16 05:12 - Attending Attestation I examined this patient and my medical decision-making was reviewed with the SKEIN BANDER/PA/Advanced Practice Nurse/Resident Physician. I agree with the documented findings, disposition and treatment plan as described except to the extent set forth below.
[2016-12-01 16:47] LABS: Bilirubin,Urine Negative (Negative); Blood,Urine Negative (Negative); Clarity,Urine Clear (Clear); Color,Urine Yellow (Yellow); Glucose,Urine (UA) Normal (Normal); Ketones,Urine Negative (Negative); Leukocyte Esterase,Urine Negative (Negative); Nitrite,Urine Negative (Negative); Protein,Urine Negative (Neg-Trace); Specific Gravity,Urine 1.015 (1.010-1.025); Urobilinogen,Urine Normal (Normal)
[2016-12-01 17:09] LABS: Creatinine,Urine 45 mg/dL; Microalbum/Creatinine Ratio,Ur 11 (0-30); Protein/Creatinine Ratio,Urine 0.16 mg/mg (0-0.20)
[2016-12-01 17:11] LABS: Microalbumin,Urine < 5 mg/L
[2016-12-01] MEDS: *HR* Warfarin 5 MG TABLET PO SCH (17:30)
[2016-12-01] MEDS: rOPINIRole 1 MG TABLET PO SCH (20:59)
[2016-12-02] MEDS: Ipratropium/Albuterol Neb 3 ML IH SCH ×4 (04:04→22:20)
[2016-12-02 05:47] LABS: Basophils % 0.2 %; Eosinophils # 0.2 K/mcL (0.0-0.6); Eosinophils % 2.8 %; Hematocrit 35.8 % (35.3-44.9); Hemoglobin 10.7 g/dL (11.5-15.4); Immature Granulocytes % 0.5 % (0-4); Lymphocytes # 1.4 K/mcL (0.6-4.6); Lymphocytes % 22.1 %; Mean Corpuscular HGB Conc 29.9 g/dL (31.6-35.5); Mean Corpuscular Hemoglobin 26.8 pg (28.0-33.3); Mean Corpuscular Volume 89.7 fL (83.0-100.0); Mean Platelet Volume 11.9 fL (9.4-12.4); Monocytes # 0.8 K/mcL (0.0-1.3); Monocytes % 12.4 %; Neutrophils # 3.8 K/mcL (1.6-8.9); Platelet Count 157 K/mcL (140-400); Red Blood Count 3.99 M/mcL (3.82-4.97); Red Cell Distribution Width 15.3 % (11.5-14.5)
[2016-12-02 05:50] LABS: INR 1.9; Prothrombin Time 21.1 Seconds (9.4-12.1)
[2016-12-02 05:57] LABS: Ionized Calcium 1.16 mmol/L (1.15-1.35)
[2016-12-02 06:05] LABS: BUN/Creatinine Ratio 33 (6-26); Blood Urea Nitrogen 28 mg/dL (7-20); Calcium 9.7 mg/dL (8.6-10.8); Chloride 93 mEq/L (98-109); Glucose 110 mg/dL (70-99); Magnesium 2.2 mg/dL (1.6-2.6); Osmolality,Calculated 298 (280-300); Potassium 4.1 mEq/L (3.5-4.5); Sodium 141 mEq/L (136-145); eGFR For African Americans > 60 (> 60); eGFR For Non-African Americans > 60 (> 60)
[2016-12-02 06:19] LABS: Carbon Dioxide 41 mEq/L (19-29)
--- NOTE | 2016-12-02 10:01 | Internal Med Progress Note ---
<Lynsey Kaur - Last Filed: 12/02/16 09:58> Date of Encounter: 12/02/16 Time of Encounter: 09:59 - Assessment and plan (1) CHF exacerbation Current Visit: Yes Status: Acute Assessment and plan: patient reports worsening LE edema, SOB, Last echo from 08/13/16 showed LVEF 60%, normal LV size and systolic funciton, moderate concentric LVH, RV mildly dilated with normal function. CXR showed bilateral pleural effusions. patient has had many hospital admission since August due to CHF exacerbations. etiology likely secondary to medication change. patient reports that her PCP recently changed her form lasix to bumex, and she states that bumex does not work as well for her. BNP 63 Plan: Lasix 40mg BID add metolazone 5mg PO daily starting tomorrow. continue to monitor kidney function magnesium potassium supplementation daily 12/01/16: patient was net negative 3.7L in the past 24 hours continue with fluid restriction, strict I/O will switch to IV lasix 40mg daily tomorrow. continue metolazone 6mg daily will check for other causes of possible repeat CHF exacerbations check TSH, urinalysis, urine microalbumin, protein to Cr ratio, uric acid. 12/02 patient net negative 3.1L past 24 hours. continue fluid restr, strict I/O continue IV lasix 40mg daily TSH, urinalysis, urine microalbumin, protein to Cr normal. stool occult blood negative CT A/P showed no acute changes. patient would benefit from outpatient colonoscopy and sleep study. will see if patient can be transitioned to oral lasix tomorrow. Qualifiers: Congestive heart failure type: diastolic Qualified Code(s): I50.33 - Acute on chronic diastolic (congestive) heart failure (2) Acute and chronic respiratory failure with hypoxia Current Visit: Yes Status: Acute Assessment and plan: patient reported oxygen desat to 70s with exertion. etiology likely secondary to CHF eacerbation in setting of COPD, consider OHS as a possible diagnosis. plan as above (3) COPD (chronic obstructive pulmonary disease) Current Visit: No Status: Chronic Assessment and plan: does not appear to be in exacerbation. On 3L home oxygen. continue Duoneb, symbicort, albuterol PRN Qualifiers: COPD type: COPD with acute exacerbation Qualified Code(s): J44.1 - Chronic obstructive pulmonary disease with (acute) exacerbation (4) Paroxysmal atrial fibrillation Current Visit: No Status: Chronic Assessment and plan: Patient had cardioversion on 10/27/16. She has a history of failed therapy on amiodarone. She was told by cardiology that she is not a good candidate for ablation therapy due to her body habitus and COPD. Plan: continue warfarin (dosed by pharmacy), sotalol (5) DVT prophylaxis Current Visit: No Status: Acute Assessment and plan: pharmacy dosing warfarin. - Subjective Interval history: 66 year old female evaluated at bedside. she denies any further complaints today. she states she plans to discontinue home health services because they do not do anything for her. - Constitutional Vitals: Temp Pulse Resp BP Pulse Ox 97.9 F 75 16 138/70 99 12/02/16 06:40 12/02/16 06:40 12/02/16 06:40 12/02/16 06:40 12/02/16 06:40 General appearance: Present: cooperative, A&O X 3, no acute distress, obese, answers questions appropriately - Head Head exam: Present: atraumatic, normocephalic - Neck Neck exam general surgery: Present: supple, trachea midline - Respiratory Respiratory exam: Present: CTAB - Cardiovascular Cardiovascular exam: Present: RRR - GI/Abdominal GI/Abdominal exam: Present: distended, firm, normal bowel sounds. Absent: tenderness Additional comments: obese, striae - Extremities Exam Extremities exam: Present: pedal edema Additional comments: +1 pitting edema on right, +3 on left. - Neurological Exam Neurological exam: Present: alert, oriented X3, reflexes normal Internal Medicine: Result - Labs CBC & Chem 7: 12/02/16 05:36 12/02/16 05:36 Labs: Short CBC 12/02/16 Range/Units 05:36 WBC 6.2 (4.3-11.1) K/mcL Hgb 10.7 L (11.5-15.4) g/dL Hct 35.8 (35.3-44.9) % Plt Count 157 (140-400) K/mcL Neutrophils # 3.8 (1.6-8.9) K/mcL BMP 12/02/16 05:36 Sodium 141 Potassium 4.1 Chloride 93 L Carbon Dioxide 41 H* BUN 28 H Creatinine 0.84 Glucose 110 H Calcium 9.7 Urine 12/01/16 Range/Units 16:37 Urine Color Yellow (Yellow) Urine Clarity Clear (Clear) Urine pH 6.0 (5.0-8.0) pH Units Ur Specific [place] 1.015 (1.010-1.025) Urine Protein Negative (Neg-Trace) mg/dL Urine Glucose (UA) Normal (Normal) mg/dL - ABG Interpretation ABG results: PT/INR, D-dimer PT 21.1 Seconds (9.4-12.1) H 12/02/16 05:36 - Impressions Impressions Abdomen/Pelvis CT 12/01/16 17:30 IMPRESSION: 1. No acute finding in the abdomen or pelvis. 2. Scattered bandlike airspace opacities in the lower lungs. Please correlate with any pulmonary symptoms. Findings may represent atelectasis or interstitial change. Developing pneumonitis cannot be excluded. D/ / Travon Hightower MD / Travon Hightower MD Interpreting Provider: Travon Hightower MD - VTE Documentation of Mechanical Device: Intermittent pneumatic compression device Consult Discharge Plan - Plan Referrals: Lisbet Ray, SUPERVISOR FABRICATION [Primary Care Provider] - <Adolfo Shukla - Last Filed: 12/02/16 16:03> Date of Encounter: 12/02/16 - Constitutional Vitals: Temp Pulse Resp BP Pulse Ox 98.1 F 64 16 148/69 98 12/02/16 15:56 12/02/16 15:56 12/02/16 15:56 12/02/16 15:56 12/02/16 15:56 Internal Medicine: Result - Labs CBC & Chem 7: 12/02/16 05:36 12/02/16 05:36 Labs: Short CBC 12/02/16 Range/Units 05:36 WBC 6.2 (4.3-11.1) K/mcL Hgb 10.7 L (11.5-15.4) g/dL Hct 35.8 (35.3-44.9) % Plt Count 157 (140-400) K/mcL Neutrophils # 3.8 (1.6-8.9) K/mcL BMP 04/29/17 05:36 Sodium 141 Potassium 4.1 Chloride 93 L Carbon Dioxide 41 H* BUN 28 H Creatinine 0.84 Glucose 110 H Calcium 9.7 Urine 12/01/16 Range/Units 16:37 Urine Color Yellow (Yellow) Urine Clarity Clear (Clear) Urine pH 6.0 (5.0-8.0) pH Units Ur Specific [place] 1.015 (1.010-1.025) Urine Protein Negative (Neg-Trace) mg/dL Urine Glucose (UA) Normal (Normal) mg/dL - ABG Interpretation ABG results: PT/INR, D-dimer PT 21.1 Seconds (9.4-12.1) H 12/02/16 05:36 - Impressions Impressions Abdomen/Pelvis CT 12/01/16 17:30 IMPRESSION: 1. No acute finding in the abdomen or pelvis. 2. Scattered bandlike airspace opacities in the lower lungs. Please correlate with any pulmonary symptoms. Findings may represent atelectasis or interstitial change. Developing pneumonitis cannot be excluded. D/ / Travon Hightower MD / Travon Hightower MD Interpreting Provider: Travon Hightower MD - Attending Attestation I examined this patient and my medical decision-making was reviewed with the WELLHEAD PUMPER/PA/Advanced Practice Nurse/Resident Physician. I agree with the documented findings, disposition and treatment plan as described except to the extent set forth below.
[2016-12-02] MEDS: Budesonide/Formoterol 160/4.5 MDI IH SCH ×2 (11:06→22:21)
[2016-12-02] MEDS: Furosemide 40 MG/4 ML VIAL IVP SCH (11:38)
[2016-12-02] MEDS: Cholecalciferol (D-3) 1,000 UNIT TABLET PO SCH (11:39)
[2016-12-02] MEDS: Cyanocobalamin (B-12) 1,000 MCG TABLET PO SCH (11:39)
[2016-12-02] MEDS: metOLazone 5 MG TABLET PO SCH (11:39)
[2016-12-02] MEDS: Magnesium Oxide 400 MG TABLET PO SCH ×2 (11:39→20:35)
[2016-12-02] MEDS: Potassium Chloride Elixir 20 MEQ/15 ML UDC PO SCH (11:49)
[2016-12-02] MEDS: *HR* Warfarin 5 MG TABLET PO SCH (17:46)
[2016-12-02] MEDS: rOPINIRole 1 MG TABLET PO SCH (20:35)
[2016-12-03] MEDS: Ipratropium/Albuterol Neb 3 ML IH SCH ×4 (04:54→22:08)
[2016-12-03 05:13] LABS: Basophils % 0.3 %; Eosinophils # 0.2 K/mcL (0.0-0.6); Eosinophils % 2.6 %; Hemoglobin 11.5 g/dL (11.5-15.4); Immature Granulocytes % 0.5 % (0-4); Lymphocytes # 1.4 K/mcL (0.6-4.6); Lymphocytes % 21.4 %; Mean Corpuscular HGB Conc 30.3 g/dL (31.6-35.5); Mean Corpuscular Hemoglobin 26.7 pg (28.0-33.3); Mean Corpuscular Volume 88.4 fL (83.0-100.0); Mean Platelet Volume 12.2 fL (9.4-12.4); Monocytes # 0.8 K/mcL (0.0-1.3); Monocytes % 12.7 %; Neutrophils # 4.1 K/mcL (1.6-8.9); Platelet Count 172 K/mcL (140-400); Red Cell Distribution Width 15.5 % (11.5-14.5); Segmented Neutrophils % 62.5 %
[2016-12-03 05:17] LABS: INR 1.7; Prothrombin Time 18.9 Seconds (9.4-12.1)
[2016-12-03 05:30] LABS: BUN/Creatinine Ratio 34 (6-26); Blood Urea Nitrogen 34 mg/dL (7-20); Calcium 10.1 mg/dL (8.6-10.8); Chloride 92 mEq/L (98-109); Glucose 117 mg/dL (70-99); Magnesium 2.4 mg/dL (1.6-2.6); Osmolality,Calculated 303 (280-300); Potassium 4.4 mEq/L (3.5-4.5); Sodium 142 mEq/L (136-145); eGFR For African Americans > 60 (> 60); eGFR For Non-African Americans 56 (> 60)
[2016-12-03 05:31] LABS: Carbon Dioxide 41 mEq/L (19-29)
[2016-12-03 05:58] LABS: Ionized Calcium 1.15 mmol/L (1.15-1.35)
[2016-12-03] MEDS: Budesonide/Formoterol 160/4.5 MDI IH SCH ×2 (08:46→22:08)
--- NOTE | 2016-12-03 09:35 | Internal Med Progress Note ---
<Lynsey Kaur - Last Filed: 12/03/16 09:32> Date of Encounter: 12/03/16 Time of Encounter: 09:34 - Assessment and plan (1) CHF exacerbation Current Visit: Yes Status: Acute Assessment and plan: patient reports worsening LE edema, SOB, Last echo from 08/13/16 showed LVEF 60%, normal LV size and systolic funciton, moderate concentric LVH, RV mildly dilated with normal function. CXR showed bilateral pleural effusions. patient has had many hospital admission since August due to CHF exacerbations. etiology likely secondary to medication change. patient reports that her PCP recently changed her form lasix to bumex, and she states that bumex does not work as well for her. BNP 63 Plan: Lasix 40mg BID add metolazone 5mg PO daily starting tomorrow. continue to monitor kidney function magnesium potassium supplementation daily 12/01/16: patient was net negative 3.7L in the past 24 hours continue with fluid restriction, strict I/O will switch to IV lasix 40mg daily tomorrow. continue metolazone 6mg daily will check for other causes of possible repeat CHF exacerbations check TSH, urinalysis, urine microalbumin, protein to Cr ratio, uric acid. 12/02 patient net negative 3.1L past 24 hours. continue fluid restr, strict I/O continue IV lasix 40mg daily TSH, urinalysis, urine microalbumin, protein to Cr normal. stool occult blood negative CT A/P showed no acute changes. patient would benefit from outpatient colonoscopy and sleep study. will see if patient can be transitioned to oral lasix tomorrow. 12/03: patient diuresing well. net negative 1.4L in past 24 hours. noted elevated BUN and bicarb. will transition to oral lasix today or tomorrow and monitor. Qualifiers: Congestive heart failure type: diastolic Qualified Code(s): I50.33 - Acute on chronic diastolic (congestive) heart failure (2) Acute and chronic respiratory failure with hypoxia Current Visit: Yes Status: Acute Assessment and plan: patient reported oxygen desat to 70s with exertion. etiology likely secondary to CHF eacerbation in setting of COPD, consider OHS as a possible diagnosis. plan as above (3) COPD (chronic obstructive pulmonary disease) Current Visit: No Status: Chronic Assessment and plan: does not appear to be in exacerbation. On 3L home oxygen. continue Duoneb, symbicort, albuterol PRN, oxygen Qualifiers: COPD type: COPD with acute exacerbation Qualified Code(s): J44.1 - Chronic obstructive pulmonary disease with (acute) exacerbation (4) Paroxysmal atrial fibrillation Current Visit: No Status: Chronic Assessment and plan: Patient had cardioversion on 10/27/16. She has a history of failed therapy on amiodarone. She was told by cardiology that she is not a good candidate for ablation therapy due to her body habitus and COPD. Plan: continue warfarin (dosed by pharmacy), sotalol (5) DVT prophylaxis Current Visit: No Status: Acute Assessment and plan: pharmacy dosing warfarin. - Subjective Interval history: 66 year old female evaluated at bedside. she denies any nausea, vomting, diarrhea, fever, chills. SHe asked to be able to shower in the bathroom, and she was told no because this would be a safety hazard. Patient states her swelling has improved. She denies any further complaints today. - Constitutional Vitals: Temp Pulse Resp BP Pulse Ox 98.1 F 74 16 157/56 98 12/03/16 06:52 12/03/16 06:52 12/03/16 06:52 12/03/16 06:52 12/03/16 06:52 General appearance: Present: cooperative, A&O X 3, no acute distress, obese, answers questions appropriately - Head Head exam: Present: atraumatic, normocephalic - Neck Neck exam general surgery: Present: supple, trachea midline - Respiratory Respiratory exam: Present: CTAB - Cardiovascular Cardiovascular exam: Present: RRR - GI/Abdominal GI/Abdominal exam: Present: distended, firm, normal bowel sounds. Absent: tenderness - Extremities Exam Extremities exam: Absent: cyanotic Additional comments: +2 left sided lower extremity pitting edema - Neurological Exam Neurological exam: Present: alert, oriented X3, no focal deficits - Psychiatric Psychiatric exam: Present: normal affect, normal mood Internal Medicine: Result - Labs CBC & Chem 7: 12/03/16 04:53 12/03/16 04:53 Labs: Short CBC 12/03/16 Range/Units 04:53 WBC 6.5 (4.3-11.1) K/mcL Hgb 11.5 (11.5-15.4) g/dL Hct 38.0 (35.3-44.9) % Plt Count 172 (140-400) K/mcL Neutrophils # 4.1 (1.6-8.9) K/mcL [facility] 12/03/16 04:53 Sodium 142 Potassium 4.4 Chloride 92 L Carbon Dioxide 41 H* BUN 34 H Creatinine 0.99 Glucose 117 H Calcium 10.1 - ABG Interpretation ABG results: PT/INR, D-dimer PT 18.9 Seconds (9.4-12.1) H 12/03/16 04:53 - VTE Documentation of Mechanical Device: Intermittent pneumatic compression device Consult Discharge Plan - Plan Referrals: Lisbet Ray, SHIFT NURSE MANAGER [Primary Care Provider] - <Adolfo Shukla P - Last Filed: 12/03/16 16:32> Date of Encounter: 12/03/16 - Constitutional Vitals: Temp Pulse Resp BP Pulse Ox 98.4 F 73 16 153/59 98 12/03/16 16:01 12/03/16 16:01 12/03/16 16:01 12/03/16 16:01 12/03/16 16:01 Internal Medicine: Result - Labs CBC & Chem 7: 12/03/16 04:53 12/03/16 04:53 Labs: Short CBC 12/03/16 Range/Units 04:53 WBC 6.5 (4.3-11.1) K/mcL Hgb 11.5 (11.5-15.4) g/dL Hct 38.0 (35.3-44.9) % Plt Count 172 (140-400) K/mcL Neutrophils # 4.1 (1.6-8.9) K/mcL [facility] 12/03/16 04:53 Sodium 142 Potassium 4.4 Chloride 92 L Carbon Dioxide 41 H* BUN 34 H Creatinine 0.99 Glucose 117 H Calcium 10.1 - ABG Interpretation ABG results: PT/INR, D-dimer PT 18.9 Seconds (9.4-12.1) H 12/03/16 04:53 - Attending Attestation I examined this patient and my medical decision-making was reviewed with the MILL PLATFORM SUPERVISOR/PA/Advanced Practice Nurse/Resident Physician. I agree with the documented findings, disposition and treatment plan as described except to the extent set forth below.
[2016-12-03] MEDS: Furosemide 40 MG/4 ML VIAL IVP SCH (10:07)
[2016-12-03] MEDS: Cyanocobalamin (B-12) 1,000 MCG TABLET PO SCH (10:08)
[2016-12-03] MEDS: Magnesium Oxide 400 MG TABLET PO SCH ×2 (10:08→20:41)
[2016-12-03] MEDS: Cholecalciferol (D-3) 1,000 UNIT TABLET PO SCH (10:09)
[2016-12-03] MEDS ORDERED: Furosemide 40 MG TABLET PO SCH (17:00)
[2016-12-03] MEDS ORDERED: *HR* Warfarin 7.5 MG TABLET PO ONE (18:00)
[2016-12-03] MEDS: rOPINIRole 1 MG TABLET PO SCH (20:41)
[2016-12-04] MEDS: Ipratropium/Albuterol Neb 3 ML IH SCH ×2 (03:35→10:28)
[2016-12-04 04:15] LABS: INR 1.9
[2016-12-04] MEDS: Naphazoline/Pheniramine Opth 15 ML BOTTLE BOTH EYES PRN (04:59)
[2016-12-04 06:52] VITALS: BP 167/78
[2016-12-04] MEDS: Cyanocobalamin (B-12) 1,000 MCG TABLET PO SCH (08:44)
[2016-12-04] MEDS: Cholecalciferol (D-3) 1,000 UNIT TABLET PO SCH (08:44)
[2016-12-04] MEDS: Magnesium Oxide 400 MG TABLET PO SCH (08:45)
--- NOTE | 2016-12-04 09:21 | Discharge Summary ---
<Lynsey Kaur - Last Filed: 12/04/16 15:53> Date of Encounter: 12/04/16 Time of Encounter: 09:11 - Discharge Diagnosis (1) CHF exacerbation Priority: Primary Status: Acute Qualifiers: Congestive heart failure type: diastolic Qualified Code(s): I50.33 - Acute on chronic diastolic (congestive) heart failure (2) Acute and chronic respiratory failure with hypoxia Priority: Secondary Status: Acute (3) COPD (chronic obstructive pulmonary disease) Priority: Secondary Status: Chronic Qualifiers: COPD type: COPD with acute exacerbation Qualified Code(s): J44.1 - Chronic obstructive pulmonary disease with (acute) exacerbation (4) Paroxysmal atrial fibrillation Priority: Secondary Status: Chronic (5) DVT prophylaxis Priority: Secondary Status: Acute - Discharge Medications Prescriptions: Furosemide [Lasix] 40 mg PO BID #60 tablet Magnesium Oxide [Mag-Ox] 400 mg PO DAILY #30 tablet Metolazone [Zaroxolyn] 5 mg PO DAILY #30 tablet Potassium Chloride 40 meq PO DAILY #30 tab.er.prt Home Medications: Alendronate Sodium [Fosamax] 70 mg PO QWEEK 10/28/15 [History] Ascorbate Calcium [Vitamin C] 500 mg PO DAILY 10/28/15 [History] Cholecalciferol (Vitamin D3) [Vitamin D3] 1,000 unit PO DAILY 10/28/15 [History] Cyanocobalamin (Vitamin B-12) [Vitamin B-12] 100 mcg PO DAILY 10/28/15 [History] Tiotropium [Spiriva] 18 mcg IH HS 10/28/15 [History] Warfarin [Coumadin] 5 mg PO QPM 10/28/15 [History] Dexlansoprazole [Dexilant] 60 mg PO DAILY 07/03/16 [History] Ferrous Sulfate [Iron] 325 mg PO DAILY 07/03/16 [History] Acetaminophen/Diphenhydramine [Acetaminophen Pm Caplet] 2 tab PO HS 09/09/16 [ History] Albuterol Sulfate [Proventil Hfa] 2 puff IH Q4H PRN 09/14/16 [History] Calcium Carbonate [Calcium] 500 mg PO BID 09/29/16 [History] Oxygen 3 l IH AD 10/24/16 [History] Sotalol [Betapace] 160 mg PO Q12HR #120 tablet 10/27/16 [Rx] Albuterol Neb [Proventil Neb] 2.5 mg IH Q4H PRN #1 inhsol 11/16/16 [Rx] Fluticasone/Salmeterol [Advair 250-50 Diskus] 1 puff IH BID #1 blst.w.dev [Rx] Montelukast [Singulair] 10 mg PO DAILY 11/29/16 [History] Ropinirole HCl [Requip] 2 mg PO HS 11/29/16 [History] Acetaminophen [Tylenol] 650 mg PO Q6HR PRN #0 tablet 12/04/16 [Rx] Furosemide [Lasix] 40 mg PO BID #60 tablet 12/04/16 [Rx] Magnesium Oxide [Mag-Ox] 400 mg PO DAILY #30 tablet 12/04/16 [Rx] Metolazone [Zaroxolyn] 5 mg PO DAILY #30 tablet 12/04/16 [Rx] Potassium Chloride 40 meq PO DAILY #30 tab.er.prt 12/04/16 [Rx] Allergies/Adverse Reactions: Allergies albuterol Allergy (Verified 09/29/16 11:04) Difficulty Breathing aspirin [ASA] Allergy (Verified 09/29/16 11:04) Difficulty Breathing Penicillins Allergy (Verified 09/29/16 11:04) Hives Sulfa (Sulfonamide Antibiotics) Allergy (Verified 09/29/16 11:04) Rash Procedures/tests Complete & Pending: Procedures Performed prior 72 hours Category Date Time Status CT abd pelvis w iv and oral [CT] Routine Cat Scan 12/01/16 17:30 Completed Date of admission: 11/30/16 01:01 Primary care physician: Lisbet Ray, - Patient Status Disposition: Home Health Service Condition: Good Functional capacity at discharge: independent ambulation Overall status at discharge: patient is progressing back to baseline - Discharge Instructions Instructions: Metolazone (By mouth), Furosemide (By mouth), Potassium Supplement (By mouth), Magnesium Sulfate (By mouth), Heart Failure (DC), Chronic Obstructive Pulmonary Disease (DC), Dyspnea (GEN), Elevated INR (DC) Follow Up With: Lisbet Ray, SURGICAL CLINICAL REVIEWER [Primary Care Provider] - 12/08/16 9:30 am Abraham White DO [Partnered Physician] - (office will call you at home with appointment date and time ) Additional Instructions: Follow up with PCP within 1 week of discharge. Follow up with Cardiology within 1 week of discharge Take all meds as prescribed. Follow a 1.5L fluid restricted diet. Measure weight daily Low salt, low fat diet. return to emergency department if symptoms return. - Diet and Activity Activity: increase activity as tolerated Diet: low fat, low cholesterol, low salt diet, other (1.5L fluid restricted diet. ) Hospital course: Ms. Guevara is a 66 year old female with PMHx of diastolic CHF (last echo from aug 2016 showed LVEF 60%), COPD (on 3L home oxygen), pAfib (on coumadin, received cardioversion on 10/2016). Patient was admitted to [facility] on 11/29/16 for CHF exacerbation. She stated that her PCP had recently taken her off lasix and started on bumex and aldactone. Per notes, she had told her PCP that she did not feel as if the lasix was working. Upon history taking, she told me that she felt the Bumex wasn't working, and that the lasix worked better. Upon exam, she had severe +4 bilateral pitting edema. Her prior admission before this was on 05/22 for acute CHF and respiratory failure. Of note, she has had repeat hospitalizations in the past secondary to CHF exacerbations and Afib RVR. Patient was placed on IV lasix, and metolazone with monitoring of I/O. Had long discussion with patient regarding compliance with fluid restriction diet. She was told she had to measure her weight daily, eat a very low salt diet, and that she is not to exceed 1.5L of fluid daily. Patient expressed understanding. She was monitored throughout her hospital stay and was sigificantly diuresed ( about 6L total). CXR showed enlarged cardiac silhouette, enlarged pulmonary arteries. After reviewing prior PCP notes, it is possible that patient's repeat hospitalizations are due to non compliance with fluid restriction. It was reinforced to patient that she must take all her meds as directed and follow up with PCP. It was recommended that she continue with Home health, which she already receives. patient's urine Cr, microalbumin, and microalbumin/Cr ratio was measured to find other potential causes of her bilateral lower extremity edema. All values were within normal limits, as well as TSH level. patient was found to be chronically anemic. Stool occult blood was negative. She stated her last colonoscopy was 3-4 years ago in [place] and she had polyps removed. At that time, it was recommended she have repeat colonoscopy in 3 years, so she is due for her next colonoscopy, which should be set up outpatient. CT abdomen/pelvis was done to rule out malignancy. results showed no acute finding inthe abdomen or pelvis. There were scattered bandlike airspace opacities in the lower lungs, possibly atelectasis. Plan: follow up with PCP within one week of discharge. Follow up with cardiology measure weight daily low salt, low fat diet. 1.5L daily fluid restriction. patient is due for next colonoscopy, please follow up outpatient. return to emergency department of symptoms return. New diuresis regimen: Lasix 40mg PO BID. Metolazone 5mg PO daily 1 hour prior to Lasix morning dose. Chest X-Ray 11/29/16 16:17 IMPRESSION: Stable appearance the chest with no evidence of acute disease. D/ / Vivek Llanes MD / Vivek Llanes MD Interpreting Provider: Vivek Llanes MD Abdomen/Pelvis CT 12/01/16 17:30 IMPRESSION: 1. No acute finding in the abdomen or pelvis. 2. Scattered bandlike airspace opacities in the lower lungs. Please correlate with any pulmonary symptoms. Findings may represent atelectasis or interstitial change. Developing pneumonitis cannot be excluded. D/ / Travon Hightower MD / Travon Hightower MD Interpreting Provider: Travon Hightower MD - Time Spent with Patient Total time spent providing and/or coordinating discharge services: - Constitutional Vitals: Temp Pulse Resp BP Pulse Ox 98.3 F 67 15 167/78 98 12/04/16 06:50 12/04/16 06:50 12/04/16 06:50 12/04/16 06:50 12/04/16 06:50 General appearance: Present: cooperative, A&O X 3, no acute distress, obese, answers questions appropriately - Head Head exam: Present: atraumatic, normocephalic - Neck Neck exam general surgery: Present: supple - Respiratory Respiratory exam: Present: CTAB - GI/Abdominal GI/Abdominal exam: Present: distended, soft. Absent: tenderness - Extremities Exam Extremities exam: Present: pedal edema. Absent: cyanotic Additional comments: +1 - Neurological Exam Neurological exam: Present: alert, oriented X3 - Psychiatric Psychiatric exam: Present: normal affect, normal mood - VTE Documentation of Mechanical Device: Graduated compression elastic hosiery <Adolfo Shukla P - Last Filed: 12/04/16 18:35> Date of Encounter: 12/04/16 Date of admission: 11/30/16 01:01 Primary care physician: Lisbet Ray, [facility] course: Ms. Guevara is a 66 year old female - Time Spent with Patient Total time spent providing and/or coordinating discharge services: - Constitutional Vitals: Temp Pulse Resp BP Pulse Ox 98.3 F 67 15 167/78 98 12/04/16 06:50 12/04/16 06:50 12/04/16 06:50 12/04/16 06:50 12/04/16 06:50 - Attending Attestation I examined this patient and my medical decision-making was reviewed with the RHEOSTAT ASSEMBLER/PA/Advanced Practice Nurse/Resident Physician. I agree with the documented findings, disposition and treatment plan as described except to the extent set forth below.
--- NOTE | 2016-12-04 09:30 | Physician Discharge Referral ---
<Lynsey Kaur - Last Filed: 12/04/16 09:28> Home Health/Hosp Referral Info Transfer to: Home Health Provider in Charge Post Discharge: PCP - Diagnosis (1) CHF exacerbation Priority: Primary Status: Acute (2) Acute and chronic respiratory failure with hypoxia Priority: Secondary Status: Acute (3) COPD (chronic obstructive pulmonary disease) Priority: Secondary Status: Chronic (4) Paroxysmal atrial fibrillation Priority: Secondary Status: Chronic (5) DVT prophylaxis Priority: Secondary Status: Acute - Respiratory Orders Oxygen / L per min (oxygen 3L) Smoking Cessation: Smoking cessation has been advised. For more information, call the [place] Tobacco Quit Line at 0-295-POYU-NOW. - Diet/Nutrition Diet/Nutrition Orders: Cardiac (low salt diet. 1.5L fluid restricted diet.) - Activity Activity Orders: Ambulate - Services Needed Following services are medically necessary services: Home Health Aide (make sure patient is following fluid restricted diet, and taking meds as prescribed.) - Transfer Medications Prescriptions: Furosemide [Lasix] 40 mg PO BID #60 tablet Magnesium Oxide [Mag-Ox] 400 mg PO DAILY #30 tablet Metolazone [Zaroxolyn] 5 mg PO DAILY #30 tablet Potassium Chloride 40 meq PO DAILY #30 tab.er.prt Home Medications: Alendronate Sodium [Fosamax] 70 mg PO QWEEK 10/28/15 [History] Ascorbate Calcium [Vitamin C] 500 mg PO DAILY 10/28/15 [History] Cholecalciferol (Vitamin D3) [Vitamin D3] 1,000 unit PO DAILY 10/28/15 [History] Cyanocobalamin (Vitamin B-12) [Vitamin B-12] 100 mcg PO DAILY 10/28/15 [History] Tiotropium [Spiriva] 18 mcg IH HS 10/28/15 [History] Warfarin [Coumadin] 5 mg PO QPM 10/28/15 [History] Dexlansoprazole [Dexilant] 60 mg PO DAILY 07/03/16 [History] Ferrous Sulfate [Iron] 325 mg PO DAILY 07/03/16 [History] Acetaminophen/Diphenhydramine [Acetaminophen Pm Caplet] 2 tab PO HS 09/09/16 [ History] Albuterol Sulfate [Proventil Hfa] 2 puff IH Q4H PRN 09/14/16 [History] Calcium Carbonate [Calcium] 500 mg PO BID 09/29/16 [History] Oxygen 3 l IH AD 10/24/16 [History] Sotalol [Betapace] 160 mg PO Q12HR #120 tablet 10/27/16 [Rx] Albuterol Neb [Proventil Neb] 2.5 mg IH Q4H PRN #1 inhsol 11/16/16 [Rx] Fluticasone/Salmeterol [Advair 250-50 Diskus] 1 puff IH BID #1 blst.w.dev [Rx] Montelukast [Singulair] 10 mg PO DAILY 11/29/16 [History] Ropinirole HCl [Requip] 2 mg PO HS 11/29/16 [History] Acetaminophen [Tylenol] 650 mg PO Q6HR PRN #0 tablet 12/04/16 [Rx] Furosemide [Lasix] 40 mg PO BID #60 tablet 12/04/16 [Rx] Magnesium Oxide [Mag-Ox] 400 mg PO DAILY #30 tablet 12/04/16 [Rx] Metolazone [Zaroxolyn] 5 mg PO DAILY #30 tablet 12/04/16 [Rx] Potassium Chloride 40 meq PO DAILY #30 tab.er.prt 12/04/16 [Rx] Allergies/Adverse Reactions: Allergies albuterol Allergy (Verified 09/29/16 11:04) Difficulty Breathing aspirin [ASA] Allergy (Verified 09/29/16 11:04) Difficulty Breathing Penicillins Allergy (Verified 09/29/16 11:04) Hives Sulfa (Sulfonamide Antibiotics) Allergy (Verified 09/29/16 11:04) Rash Certification: Further, I certify that my clinical findings support that this patient is homebound (i.e. absences from home require considerable and taxing effort and are for medical reasons or yazidi services or infrequently or short duration when for other reasons) because: Homebound Reason: Patient requires assistance of a person or device to safely leave home Attestation: My signature below is to certify that this patient is under my care and that I, or nurse practitioner, or a physician's pharmacy innovation assistant working with me, has a face-to -face encounter with this patient. <Adolfo Shukla P - Last Filed: 12/04/16 18:37> - Respiratory Orders Smoking Cessation: Smoking cessation has been advised. For more information, call the [place] Tobacco Quit Line at 0-960-SVEH-NOW. Certification: Further, I certify that my clinical findings support that this patient is homebound (i.e. absences from home require considerable and taxing effort and are for medical reasons or yazidi services or infrequently or short duration when for other reasons) because: Attestation: My signature below is to certify that this patient is under my care and that I, or nurse practitioner, or a physician's pharmacy innovation assistant working with me, has a face-to -face encounter with this patient.
[2016-12-04 10:21] LABS: BUN/Creatinine Ratio 38 (6-26); Blood Urea Nitrogen 35 mg/dL (7-20); Calcium 9.9 mg/dL (8.6-10.8); Carbon Dioxide 35 mEq/L (19-29); Chloride 94 mEq/L (98-109); Glucose 113 mg/dL (70-99); Magnesium 2.4 mg/dL (1.6-2.6); Osmolality,Calculated 301 (280-300); Potassium 4.7 mEq/L (3.5-4.5); Sodium 141 mEq/L (136-145); eGFR For African Americans > 60 (> 60); eGFR For Non-African Americans > 60 (> 60)
[2016-12-04] MEDS: Budesonide/Formoterol 160/4.5 MDI IH SCH (10:28)
== END 2016-12-04 16:19 | disposition home health service (06) | DRG 291 ==
LOC: 2NENU 15:31 → EMEROO 15:31 → 2NENU 21:07
PROVIDERS: ADMIT Internal Medicine; ATTEND Internal Medicine

== ENCOUNTER 2017-01-06 15:07 | Inpatient (IN) ==
[2017-01-06] MEDS ORDERED: 0.9 % Sodium Chloride 500 ML IVC ONE (15:30)
[2017-01-06] MEDS ORDERED: *HR* Atropine Sulfate 1 MG/10 ML SYRINGE IVP ONE (15:31)
[2017-01-06 15:40] LABS: Basophils % 0.4 %; Eosinophils # 0.1 K/mcL (0.0-0.6); Eosinophils % 1.2 %; Hematocrit 37.1 % (35.3-44.9); Hemoglobin 10.9 g/dL (11.5-15.4); Immature Granulocytes % 0.5 % (0-4); Lymphocytes # 1.5 K/mcL (0.6-4.6); Lymphocytes % 18.1 %; Mean Corpuscular HGB Conc 29.4 g/dL (31.6-35.5); Mean Corpuscular Hemoglobin 26.3 pg (28.0-33.3); Mean Corpuscular Volume 89.6 fL (83.0-100.0); Mean Platelet Volume 11.9 fL (9.4-12.4); Neutrophils # 5.5 K/mcL (1.6-8.9); Platelet Count 200 K/mcL (140-400); Red Blood Count 4.14 M/mcL (3.82-4.97); Red Cell Distribution Width 15.1 % (11.5-14.5); Segmented Neutrophils % 67.8 %
[2017-01-06 15:45] LABS: INR 3.6; Prothrombin Time 40.6 Seconds (9.4-12.1)
[2017-01-06 15:48] LABS: Activated Partial Thrombo Time 39.6 Seconds (26.0-36.0)
--- NOTE | 2017-01-06 15:49 | Emergency Department Note ---
Disposition Referrals: NO,PCP [Primary Care Provider] - Forms: Work/School Release, ED Satisfaction Letter Arrhythmia/Palpitations HPI - General Chief Complaint: ED General Medical Stated Complaint: Low Heart rate Time Seen by Provider: 01/06/17 15:29 Source: patient, family Limitations: no limitations Nursing Notes Reviewed: Yes Vital Signs Reviewed: Yes - Related Data Home Medications Medication Instructions Recorded Confirmed Alendronate Sodium [Fosamax] 70 mg PO QWEEK 10/28/15 12/26/16 Ascorbate Calcium [Vitamin C] 500 mg PO DAILY 10/28/15 12/26/16 Cholecalciferol (Vitamin D3) 1,000 unit PO DAILY 10/28/15 12/26/16 [Vitamin D3] Cyanocobalamin (Vitamin B-12) 100 mcg PO DAILY 10/28/15 12/26/16 [Vitamin B-12] Tiotropium [Spiriva] 2 inh IH HS 10/28/15 12/26/16 Warfarin [Coumadin] 5 mg PO DAILY 10/28/15 12/26/16 Dexlansoprazole [Dexilant] 60 mg PO DAILY 07/03/16 12/26/16 Ferrous Sulfate [Iron] 325 mg PO DAILY 07/03/16 12/26/16 Acetaminophen/Diphenhydramine 2 tab PO HS 09/09/16 12/26/16 [Acetaminophen Pm Caplet] Albuterol Sulfate [Proventil Hfa] 2 puff IH Q4H PRN 09/14/16 12/26/16 Calcium Carbonate [Calcium] 500 mg PO BID 09/29/16 12/26/16 Oxygen 3 l IH AD 10/24/16 12/26/16 Montelukast [Singulair] 10 mg PO DAILY 11/29/16 12/26/16 Ropinirole HCl [Requip] 2 mg PO HS 11/29/16 12/26/16 Amlodipine Besylate 2.5 mg PO DAILY 12/26/16 12/26/16 Diltiazem CD (24hr) [Cardizem CD] 180 mg PO DAILY 12/26/16 12/26/16 Furosemide [Lasix] 10 mg PO BID 12/26/16 12/26/16 Olopatadine HCl [Patanol] 1 drop OP BID 12/26/16 12/26/16 Spironolactone [Aldactone] 50 mg PO DAILY 12/26/16 12/26/16 Warfarin [Coumadin] 0.5 mg PO QMWF 12/26/16 12/26/16 Previous Rx's Medication Instructions Recorded Sotalol [Betapace] 160 mg PO Q12HR #120 tablet 10/27/16 Albuterol Neb [Proventil Neb] 2.5 mg IH Q4H PRN #1 inhsol 11/16/16 Fluticasone/Salmeterol [Advair 1 puff IH BID #1 blst.w.dev 11/16/16 250-50 Diskus] Acetaminophen [Tylenol] 650 mg PO Q6HR PRN #0 tablet 12/04/16 Magnesium Oxide [Mag-Ox] 400 mg PO DAILY #30 tablet 12/04/16 Potassium Chloride 40 meq PO DAILY #30 tab.er.prt 12/04/16 metOLazone [Zaroxolyn] 5 mg PO DAILY #30 tablet 12/04/16 Allergies Allergy/AdvReac Type Severity Reaction Status Date / Time aspirin [ASA] Allergy Difficulty Verified 09/29/16 11:04 Breathing Penicillins Allergy Hives Verified 09/29/16 11:04 Sulfa (Sulfonamide Allergy Rash Verified 09/29/16 11:04 Antibiotics) Past Medical History - Past Medical History Medical history: Reports: asthma, atrial fibrillation, CHF, COPD, GERD, hypertension, migraine Surgical history: Reports: cholecystectomy, hysterectomy Psychiatric history: Reports: no psych history HELPER TEACHER history: Reports: no HELPER TEACHER history - Social History Smoking Status: Former smoker Smokeless Tobacco Status: No Alcohol use: Reports: none Drug use: Reports: none Physical Exam - General Limitations: no limitations General appearance: alert, in no apparent distress Course Vital Signs Temperature 98 F 01/06/17 15:08 Pulse Rate 35 01/06/17 15:08 Respiratory Rate 20 01/06/17 15:08 Blood Pressure 75/48 01/06/17 15:08 O2 Sat by Pulse Oximetry 95 01/06/17 15:08 Temperature 98 F 01/06/17 15:08 Pulse Rate 36 01/06/17 15:45 Respiratory Rate 18 01/06/17 15:45 Blood Pressure 72/33 01/06/17 15:45 O2 Sat by Pulse Oximetry 97 01/06/17 15:45 Oxygen Delivery Oxygen Delivery Nasal Cannula Arrhythmia/Palpitations - Lab Data Result diagrams: 01/06/17 15:28 Lab Results 01/06/17 Range/Units 15:28 WBC 8.1 (4.3-11.1) K/mcL RBC 4.14 (3.82-4.97) M/mcL Hgb 10.9 L (11.5-15.4) g/dL Hct 37.1 (35.3-44.9) % MCV 89.6 (83.0-100.0) fL MCH 26.3 L (28.0-33.3) pg MCHC 29.4 L (31.6-35.5) g/dL RDW 15.1 H (11.5-14.5) % Plt Count 200 (140-400) K/mcL MPV 11.9 (9.4-12.4) fL Immature Gran % 0.5 (0-4) % Seg Neutrophils % 67.8 % Lymphocytes % 18.1 % Monocytes % 12.0 % Eosinophils % 1.2 % Basophils % 0.4 % Neutrophils # 5.5 (1.6-8.9) K/mcL Lymphocytes # 1.5 (0.6-4.6) K/mcL Monocytes # 1.0 (0.0-1.3) K/mcL Eosinophils # 0.1 (0.0-0.6) K/mcL Basophils # 0.0 (0.0-0.2) K/mcL
[2017-01-06 15:55] LABS: Albumin 3.3 g/dL (3.5-5.0); Bilirubin,Direct 0.1 mg/dL (0.0-0.5); Bilirubin,Indirect 0.2 mg/dL (0.0-1.2); Bilirubin,Total 0.3 mg/dL (0.2-1.2); Calcium 10.2 mg/dL (8.6-10.8); Globulin 3.2 g/dL (2.4-3.5); Potassium 5.5 mEq/L (3.5-4.5); Total Protein 6.5 g/dL (6.0-8.3)
--- NOTE | 2017-01-06 16:02 | Emergency Department Note ---
Disposition Clinical Impression: Symptomatic bradycardia, Supratherapeutic INR Chronic kidney disease Qualifiers: Chronic kidney disease stage: unspecified stage Qualified Code(s): N18.9 - Chronic kidney disease, unspecified Hypotension Qualifiers: Hypotension type: unspecified hypotension type Qualified Code(s): I95.9 - Hypotension, unspecified Disposition: Admitted As Inpatient Condition: Fair General Adult HPI - General Chief complaint: ED General Medical Stated complaint: Low Heart rate Time Seen by Provider: 01/06/17 15:29 Source: patient, family Limitations: no limitations Nursing Notes Reviewed: Yes Vital Signs Reviewed: Yes - History of Present Illness HPI Narrative: 66-year-old female history of A. fib, on coumadin, COPD on home oxygen presents for evaluation of a low heart rate. Patient states that symptoms started over the past 2 days. Noticed to have heart rate in the 30s yesterday. Reports to be symptomatic with lightheadedness and dizziness. Also notes some chest pressure and some dyspnea. Notes that she did take her blood pressure heart rate medication this morning. Blood pressure medicine includes Cardizem as well as sotalol. Patient took her blood pressure medication early this morning around 9:30. Onset (ago): day(s) Pain Scale: 2 - Related Data Home Medications Medication Instructions Recorded Confirmed Alendronate Sodium [Fosamax] 70 mg PO WE 10/28/15 01/06/17 Ascorbate Calcium [Vitamin C] 500 mg PO DAILY 10/28/15 01/06/17 Cholecalciferol (Vitamin D3) 1,000 unit PO DAILY 10/28/15 01/06/17 [Vitamin D3] Cyanocobalamin (Vitamin B-12) 100 mcg PO DAILY 10/28/15 01/06/17 [Vitamin B-12] Tiotropium [Spiriva] 2 puff IH HS 10/28/15 01/06/17 Warfarin [Coumadin] 5 mg PO QPM 10/28/15 01/06/17 Dexlansoprazole [Dexilant] 60 mg PO DAILY 07/03/16 01/06/17 Ferrous Sulfate [Iron] 325 mg PO DAILY 07/03/16 01/06/17 Acetaminophen/Diphenhydramine 2 tab PO HS 09/09/16 01/06/17 [Acetaminophen Pm Caplet] Albuterol Sulfate [Proventil Hfa] 2 puff IH Q4H PRN 09/14/16 01/06/17 Calcium Carbonate [Calcium] 500 mg PO BID 09/29/16 01/06/17 Oxygen 3 l IH AD 10/24/16 01/06/17 Montelukast [Singulair] 10 mg PO DAILY 11/29/16 01/06/17 Ropinirole HCl [Requip] 2 mg PO HS 11/29/16 01/06/17 Amlodipine Besylate 2.5 mg PO DAILY 12/26/16 01/06/17 Diltiazem CD (24hr) [Cardizem CD] 180 mg PO DAILY 12/26/16 01/06/17 Furosemide [Lasix] 10 mg PO BID 12/26/16 01/06/17 Olopatadine HCl [Patanol] 1 drop OP BID 12/26/16 01/06/17 Spironolactone [Aldactone] 50 mg PO DAILY 12/26/16 01/06/17 Azithromycin [Azithromycin 6-Tab 250 mg PO PER PKG DI 01/06/17 01/06/17 Pack] Previous Rx's Medication Instructions Recorded Sotalol [Betapace] 160 mg PO Q12HR #120 tablet 10/27/16 Albuterol Neb [Proventil Neb] 2.5 mg IH Q4H PRN #1 inhsol 11/16/16 Fluticasone/Salmeterol [Advair 1 puff IH BID #1 blst.w.dev 11/16/16 250-50 Diskus] Acetaminophen [Tylenol] 650 mg PO Q6HR PRN #0 tablet 12/04/16 Magnesium Oxide [Mag-Ox] 400 mg PO DAILY #30 tablet 12/04/16 Potassium Chloride 40 meq PO DAILY #30 tab.er.prt 12/04/16 metOLazone [Zaroxolyn] 5 mg PO DAILY #30 tablet 12/04/16 Allergies Allergy/AdvReac Type Severity Reaction Status Date / Time aspirin [ASA] Allergy Difficulty Verified 09/29/16 11:04 Breathing Penicillins Allergy Hives Verified 09/29/16 11:04 Sulfa (Sulfonamide Allergy Rash Verified 09/29/16 11:04 Antibiotics) All systems ED: reviewed and negative except as stated. Constitutional: Reports: as per HPI. Denies: fever Eyes: Reports: as per HPI ENT ED: Reports: as per HPI Cardiovascular: Reports: as per HPI, chest pain Respiratory: Reports: as per HPI, dyspnea Gastrointestinal: Reports: as per HPI Genitourinary: Reports: as per HPI Musculoskeletal: Reports: as per HPI Integumentary: Reports: as per HPI Neurological: Reports: as per HPI Psychiatric: Reports: as per HPI Endocrine: Reports: as per HPI Hematological/Lymphatic: Reports: as per HPI Allergic/Immunologic: Reports: as per HPI Past Medical History - Past Medical History Medical history: Reports: asthma, atrial fibrillation, CHF, COPD, GERD, hypertension, migraine Surgical history: Reports: cholecystectomy, hysterectomy Psychiatric history: Reports: no psych history BRANCH GENERAL MANAGER history: Reports: no BRANCH GENERAL MANAGER history - Social History Smoking Status: Former smoker Smokeless Tobacco Status: No Alcohol use: Reports: none Drug use: Reports: none Physical Exam - General Limitations: no limitations General appearance: alert, in no apparent distress - Head Head exam: atraumatic, normocephalic, normal inspection - Eye Eye exam: Present: normal appearance, PERRL, EOMI - ENT ENT exam: normal exam, mucous membranes moist - Neck Neck exam: Present: normal inspection, trachea midline - Chest Chest inspection: Present: normal inspection, symmetric chest wall rise - Respiratory Respiratory exam: Present: prolonged expiratory phase. Absent: respiratory distress - Cardiovascular Cardiovascular exam: Present: regular rate, bradycardia. Absent: systolic murmur - Abdominal Exam Abdominal exam: Present: soft, other (Obese). Absent: tenderness - Extremities Exam Extremities exam: Present: normal inspection, pedal edema (3+ bilateral pitting edema) - Expanded Lower Extremity Exam Neurovascular/Tendon exam: Present: normal capillary refill. Absent: pulse deficit - Back Exam Back exam: Present: normal inspection - Neurological Exam Neurological exam: Present: alert, oriented X3, CN II-XII intact - Skin Skin exam: Present: warm, dry, intact, normal color Course Course Narrative: Patient seen and examined. Patient was noted to be symptomatically bradycardic with hypotension. Patient was given 1 mg of atropine with out no benefit. Patient was given a small fluid challenge. Given the concerns of the bradycardia as well as the hypotension, the patient was placed with pacer pads. Spoke with cad operator and adult care provider. Patient had an EF of 60% obtained in August 2016. - Reevaluation(s) Reevaluation #1: Plan of care was discussed with the patient as well as the family at bedside. Questions were answered. Time: 16:26 - Consultations Consultation #1: Spoke with Dr. White recommended to start dopamine given a low pressure and heart rate. Recommend consult interventional for possible temporary pacemaker. Time: 16:00 Consultation #2: Spoke with Dr. Berumen who requested an EKG tracing. Initially recommended hold a heart rate lowering medications and allow the body to metabolize. Time: 16:00 Consultation #3: Spoke with immunology specialist felt strongly about temporary pacing. Patient's lab work are returning and nose worsening kidney function and some of her heart rate medications are renally excreted. Patient noted to have blood pressures 90s over 30s. Patient was continued to be symptomatically. Time: 16:13 Additional Consultation(s): 1707; immunology specialist at bedside. Concerns about INR. Patient possibly might not be going to engineering lab technician. Vital Signs Temperature 98 F 01/06/17 15:08 Pulse Rate 35 01/06/17 15:08 Respiratory Rate 20 01/06/17 15:08 Blood Pressure 75/48 01/06/17 15:08 O2 Sat by Pulse Oximetry 95 01/06/17 15:08 Temperature 97.6 F 01/06/17 18:00 Pulse Rate 41 01/06/17 18:00 Respiratory Rate 20 01/06/17 18:00 Blood Pressure 97/82 01/06/17 18:00 O2 Sat by Pulse Oximetry 95 01/06/17 18:00 Oxygen Delivery Oxygen Delivery Nasal Cannula Medical Decision Making - [facility] Narrative Medical decision making narrative: 66-year-old female presents for evaluation of symptomatically bradycardia. Patient is known to have a history of A. fib and is on several heart rate medications which includes Cardizem as well as sotalol. No recent change in medications but does note bradycardia over the past 2 days. Patient did take her heart rate medicine this morning. On initial exam the patient was noted to be hypotensive and bradycardic. The patient was also symptomatic with lightheadedness chest pain and shortness of breath. Given initial concerns 1 mg of atropine was given without significant improvement. Also gave the patient 1 amp of calcium gluconate. Spoke with cardiology who recommended starting dopamine and speaking with interventionalists for temporary pacemaker. Spoke with the interventionalists who recommended that the medications will need time for metabolization. Given the fact the patient is indicated to be symptomatic with her blood pressure and heart rate patient would likely benefit from a temporary pacemaker. Patient's labs review shows that she is anemic. Patient does have worsening kidney function. Concerts that some of these renally excreted medications are treated through the kidneys and would likely prolong the patient's course. Concerns about prolonged hypotension worsening kidney disease. Spoke with the hospitalist who admitted the patient. Patient will be admitted. All questions were answered at bedside to the best of my ability. plant engineering supervisor did present to bedside. Concerns about INR 3.6 and placement of a temporary pacemaker. Recommended to continue symptomatic and conservative therapy at this point. Patient's blood pressure remained soft during emergency department stay. Patient's heart rate gradually improved with the dopamine. Patient was admitted to the intensive care unit for further care and monitoring. - Lab Data Lab results reviewed: Yes I reviewed the patient's lab results. Result diagrams: 01/06/17 15:28 01/06/17 15:28 Lab Results 01/06/17 01/06/17 01/06/17 Range/Units 15:28 15:28 15:28 WBC 8.1 (4.3-11.1) K/mcL RBC 4.14 (3.82-4.97) M/mcL Hgb 10.9 L (11.5-15.4) g/dL Hct 37.1 (35.3-44.9) % MCV 89.6 (83.0-100.0) fL MCH 26.3 L (28.0-33.3) pg MCHC 29.4 L (31.6-35.5) g/dL RDW 15.1 H (11.5-14.5) % Plt Count 200 (140-400) K/mcL MPV 11.9 (9.4-12.4) fL Immature Gran % 0.5 (0-4) % Seg Neutrophils % 67.8 % Lymphocytes % 18.1 % Monocytes % 12.0 % Eosinophils % 1.2 % Basophils % 0.4 % Neutrophils # 5.5 (1.6-8.9) K/mcL Lymphocytes # 1.5 (0.6-4.6) K/mcL Monocytes # 1.0 (0.0-1.3) K/mcL Eosinophils # 0.1 (0.0-0.6) K/mcL Basophils # 0.0 (0.0-0.2) K/mcL PT 40.6 H (9.4-12.1) Seconds INR 3.6 APTT 39.6 H (26.0-36.0) Seconds D-Dimer 288 (0-500) ng/mLFEU Sodium (136-145) mEq/L Potassium (3.5-4.5) mEq/L Chloride (98-109) mEq/L Carbon Dioxide (19-29) mEq/L BUN (7-20) mg/dL Creatinine (0.57-1.11) mg/dL Est GFR ( Amer) (> 60) Est GFR (Non-Af Amer) (> 60) BUN/Creatinine Ratio (6-26) Glucose (70-99) mg/dL Calculated Osmolality (280-300) Calcium (8.6-10.8) mg/dL Total Bilirubin (0.2-1.2) mg/dL Direct Bilirubin (0.0-0.5) mg/dL Indirect Bilirubin (0.0-1.2) mg/dL AST (5-34) Units/L ALT (0-55) Units/L Alkaline Phosphatase (38-126) Units/L Troponin I (0-0.03) ng/mL B-Natriuretic Peptide 104 H (0-100) pg/mL Serum Total Protein (6.0-8.3) g/dL Albumin (3.5-5.0) g/dL Globulin (2.4-3.5) g/dL Albumin/Globulin Ratio (1.1-2.2) 01/06/17 01/06/17 Range/Units 15:28 15:28 WBC (4.3-11.1) K/mcL RBC (3.82-4.97) M/mcL Hgb (11.5-15.4) g/dL Hct (35.3-44.9) % MCV (83.0-100.0) fL MCH (28.0-33.3) pg MCHC (31.6-35.5) g/dL RDW (11.5-14.5) % Plt Count (140-400) K/mcL MPV (9.4-12.4) fL Immature Gran % (0-4) % Seg Neutrophils % % Lymphocytes % % Monocytes % % Eosinophils % % Basophils % % Neutrophils # (1.6-8.9) K/mcL Lymphocytes # (0.6-4.6) K/mcL Monocytes # (0.0-1.3) K/mcL Eosinophils # (0.0-0.6) K/mcL Basophils # (0.0-0.2) K/mcL PT (9.4-12.1) Seconds INR APTT (26.0-36.0) Seconds D-Dimer (0-500) ng/mLFEU Sodium 137 (136-145) mEq/L Potassium 5.5 H (3.5-4.5) mEq/L Chloride 99 (98-109) mEq/L Carbon Dioxide 30 H (19-29) mEq/L BUN 84 H (7-20) mg/dL Creatinine 2.13 H (0.57-1.11) mg/dL Est GFR ( Amer) 28 L (> 60) Est GFR (Non-Af Amer) 23 L (> 60) BUN/Creatinine Ratio 39 H (6-26) Glucose 140 H (70-99) mg/dL Calculated Osmolality 312 H (280-300) Calcium 10.2 (8.6-10.8) mg/dL Total Bilirubin 0.3 (0.2-1.2) mg/dL Direct Bilirubin 0.1 (0.0-0.5) mg/dL Indirect Bilirubin 0.2 (0.0-1.2) mg/dL AST 16 (5-34) Units/L ALT 21 (0-55) Units/L Alkaline Phosphatase 64 (38-126) Units/L Troponin I 0.02 (0-0.03) ng/mL B-Natriuretic Peptide (0-100) pg/mL Serum Total Protein 6.5 (6.0-8.3) g/dL Albumin 3.3 L (3.5-5.0) g/dL Globulin 3.2 (2.4-3.5) g/dL Albumin/Globulin Ratio 1.0 L (1.1-2.2) - Radiology Data Radiology results reviewed: Yes I reviewed the patient's radiology results. Chest X-Ray 01/06/17 15:30 IMPRESSION: Stable bibasilar opacities, most likely chronic atelectasis/ scarring. No definite acute abnormality. D/ / Vivek Keita MD / Vivek Keita MD Interpreting Provider: Vivek Keita MD - EKG Data EKG #1 EKG attestation: Yes I reviewed and interpreted this EKG. EKG results narrative: Narrow complex bradycardia no P waves visualized. Rates in the 34. T waves in V1 and aVR. Normal axis. When compared to previous EKG there are: changes noted Critical Care Time Critical Care Time: Yes Total Critical Care Time: 40 Attestation: Critical care time to manage patient's bradycardia approximately 40 minutes. Gita - Gita Situation: Demographics Background: Presenting Complaint Assessment: Vital Signs, Course and respsone to treatment, Patient/Family Expectation Recommendation: Barrier(s) to disposition, Recommendation based on pending studies, treatments, or consults SHerberth Report Given to: Walt Chavez Repor Time: 16:44 Attestation Statement - Attestation Attestation: Patient was seen with resident physician. I reviewed the history, physical, assessment and plan, and agree with the findings. I also personally evaluated this patient and had [id number]-[id number] time with this patient. 66-year-old female presents to the emergency department with chest pressure and bradycardia for 2 days. Patient's on sotalol and Cardizem, and says that she has not been feeling well for the last 2 days. She attempted an exercise class today unsuccessfully feeling like she is very weak and lightheaded. She also checked her heart rate noticed that it was still in the 30s. She did take her medications this morning. Her chest pain is described as a pressure sensations on the left side of her chest. She came into the emergency department for evaluation treatment. Exam vital signs patient is bradycardic with a heart rate in the mid to upper 30s. Her blood pressure is low ranging between 70 and 90 systolic. Pulse ox was okay. Rest sure it was okay. ENT unremarkable. Heart the cardiac with regular rhythm. Lungs were clear. Abdomen is soft and nontender. Extremities are unremarkable. Neurologically the patient is alert and intact. Skin is unremarkable. ED course. Several IV lines were started. Repeat blood pressures revealed no significant improvement. Patient was given IV fluids to improve the blood pressure. She was also given a milligram of atropine to see if it improved her heart rate and had no appreciable effect. We spoke with cardiology via telephone who suggested dopamine 5 mics and to call interventional for transvenous pacing. We then spoke with interventional cardiology who felt that this was probably an over medication issue, but with her continued hypotension and minimal response to dopamine and atropine, we wanted him to evaluate the patient. Additionally the patient had some renal dysfunction which would probably prolonged excretion of the medications are controlling her heart rate which furthered the need for transvenous pacing. Cardiology interventional evaluated the patient at bedside and felt that observation in the ICU prior to transvenous pacing was the appropriate course of action. Especially considering that she had an elevated INR. The hospitalist was notified, and patient was taken to the intensive care unit. Critical care time 35 minutes. Agree with the resident physician assessment and plan.
[2017-01-06] MEDS ORDERED: Calcium Gluconate 1,000 MG in D5% in Water 100 ML IVPB ONE (16:13)
[2017-01-06] MEDS ORDERED: *HR* Midazolam HCl 2 MG/2 ML VIAL ONE (16:57)
[2017-01-06] MEDS ORDERED: *HR* FentaNYL (PF) 100 MCG/2 ML VIAL ONE (16:57)
[2017-01-06] MEDS ORDERED: 0.9 % Sodium Chloride 1,000 ML ONE (16:58)
[2017-01-06] MEDS ORDERED: Heparin 1,000 UNITS/500 mL NS 0 ML ONE (16:58)
--- NOTE | 2017-01-06 17:44 | Cardiology Consult Note ---
Date of Encounter: 01/06/17 Time of Encounter: 17:00 Assessment and Plan Discussion w patient/family: The assessment and plan as outlined above was discussed with the patient and/or family members who expressed understanding and agreement. All questions were answered. Thank you for involving us in the care of your patient. Please call with any questions.. Will admit and observe. Zoll external pacing if long pauses or more symptom bradycardia. Will force a pacemaker if that occurs. Otherwise no dilt and no sotalol and will monitor and follow. History of Present Illness Consult date: 01/06/17 Consult reason: Symptomatic bradycardia and hypotension Chief complaint: weakness and tired History of present illness: Ms. Guevara is a 66 year old female admitted in the ED with the above symptoms. No syncope and no chest pain. Has chronic atrial fib and is on diltiazem and sotalol. Several recent encounters for the a fib. Also has Hx CHF. On coumadin and the INR is 3.6 today. At this time is in junctional rhythm at 40/min and BP is 86/66. No pauses noted. Is talkative and very alert and with and other family. Lungs are clear. At this time I think will not place pacemaler due to high INR and soft needs for device. Will monitor and allow metabolism to occur. External Zoll temporary if more bradycardia occurs. . Patient seen in the ED and discussed with ED doctor and with family. Past Med Surg Social Fam HX - Past Medical History Medical history: asthma, atrial fibrillation, CHF, COPD, GERD, hypertension, migraine Psychiatric history: no psych history - Past Surgical History Surgical History: cholecystectomy, hysterectomy - Social History Smoking Status: Former smoker Smokeless Tobacco Status: No Alcohol use: none Drug use: none - Family History Sister Living Status: Hx Family Cardiac Disorders: Yes Hx Family Respiratory Disorders: Yes (copd) Mother Adopted: No Family Member Ethnicity: Non- Twin of Family Member: Yes, Fraternal Living Status: Hx Family Cardiac Disorders: Yes (HTN) Hx Family Respiratory Disorders: No Hx Family Cancer: Yes (Melanoma) Hx Family GI Disorders: Yes (Constipation) Hx Family Endocrine Disorder: No Hx Family Neuromuscular Disorders: No Hx Family Neurologic Disorders: No Hx Family HEENT Disorders: No Hx Family Autoimmune Disorders: No Father Adopted: No Family Member Ethnicity: Non- Twin of Family Member: Yes, Fraternal Living Status: Hx Family Cardiac Disorders: Yes (father, grandfather,self) Hx Family Respiratory Disorders: Yes (self,sister) Hx Family Cancer: No Hx Family GI Disorders: Yes (self) Hx Family Endocrine Disorder: No Hx Family Neuromuscular Disorders: No Hx Family Neurologic Disorders: No Hx Family HEENT Disorders: No Hx Family Autoimmune Disorders: No Medications and Allergies Alendronate Sodium [Fosamax] 70 mg PO WE 10/28/15 [History] Ascorbate Calcium [Vitamin C] 500 mg PO DAILY 10/28/15 [History] Cholecalciferol (Vitamin D3) [Vitamin D3] 1,000 unit PO DAILY 10/28/15 [History] Cyanocobalamin (Vitamin B-12) [Vitamin B-12] 100 mcg PO DAILY 10/28/15 [History] Tiotropium [Spiriva] 2 puff IH HS 10/28/15 [History] Warfarin [Coumadin] 5 mg PO QPM 10/28/15 [History] Dexlansoprazole [Dexilant] 60 mg PO DAILY 07/03/16 [History] Ferrous Sulfate [Iron] 325 mg PO DAILY 07/03/16 [History] Acetaminophen/Diphenhydramine [Acetaminophen Pm Caplet] 2 tab PO HS 09/09/16 [ History] Albuterol Sulfate [Proventil Hfa] 2 puff IH Q4H PRN 09/14/16 [History] Calcium Carbonate [Calcium] 500 mg PO BID 09/29/16 [History] Oxygen 3 l IH AD 10/24/16 [History] Sotalol [Betapace] 160 mg PO Q12HR #120 tablet 10/27/16 [Rx] Albuterol Neb [Proventil Neb] 2.5 mg IH Q4H PRN #1 inhsol 11/16/16 [Rx] Fluticasone/Salmeterol [Advair 250-50 Diskus] 1 puff IH BID #1 blst.w.dev [Rx] Montelukast [Singulair] 10 mg PO DAILY 11/29/16 [History] Ropinirole HCl [Requip] 2 mg PO HS 11/29/16 [History] Acetaminophen [Tylenol] 650 mg PO Q6HR PRN #0 tablet 12/04/16 [Rx] Magnesium Oxide [Mag-Ox] 400 mg PO DAILY #30 tablet 12/04/16 [Rx] Potassium Chloride 40 meq PO DAILY #30 tab.er.prt 12/04/16 [Rx] metOLazone [Zaroxolyn] 5 mg PO DAILY #30 tablet 12/04/16 [Rx] Amlodipine Besylate 2.5 mg PO DAILY 12/26/16 [History] Diltiazem CD (24hr) [Cardizem CD] 180 mg PO DAILY 12/26/16 [History] Furosemide [Lasix] 10 mg PO BID 12/26/16 [History] Olopatadine HCl [Patanol] 1 drop OP BID 12/26/16 [History] Spironolactone [Aldactone] 50 mg PO DAILY 12/26/16 [History] Azithromycin [Azithromycin 6-Tab Pack] 250 mg PO PER PKG DI 01/06/17 [History] Allergies aspirin [ASA] Allergy (Verified 09/29/16 11:04) Difficulty Breathing Penicillins Allergy (Verified 09/29/16 11:04) Hives Sulfa (Sulfonamide Antibiotics) Allergy (Verified 09/29/16 11:04) Rash All Systems Review: A 10-system review of systems was performed and is negative for pertinent findings except as documented above in the HPI. - Constitutional Constitutional: fatigue, lethargy - Cardiovascular Cardiovascular: as per HPI, dyspnea on exertion, slow heart rate - Respiratory Respiratory: wheezing - Musculoskeletal Musculoskeletal: back pain Physical Examination Vital Signs, Last 4 Hours Resp BP 01/06/17 17:25 18 87/34 Results 01/06/17 15:28 01/06/17 15:28 - EKG Interpretation EKG results cardiology: personally reviewed (Jundtional rhythm with some emergence of P waves. Rate 42 ,, BP 96/66) Consult Discharge Plan - Plan Referrals: Lisbet Ray, CUSTOMER ACCOUNT COORDINATOR [Primary Care Provider] -
[2017-01-06] MEDS ORDERED: Naloxone 0.4 MG/ML INJ IVP PRN (17:52)
[2017-01-06] MEDS ORDERED: Albuterol 2.5 MG/3 ML NEBULIZER IH PRN (21:20)
--- NOTE | 2017-01-06 21:20 | Internal Med History&Physical ---
Date of Encounter: 01/06/17 Time of Encounter: 20:30 Assessment and Plan (1) Symptomatic bradycardia Current visit: Yes Status: Acute Patient is known to have atrial fibrillation and is on diltiazem and sotalol. I suspect bradycardia is possibly related to the medications. Check TSH level. Hold diltiazem and sotalol. Patient was evaluated by the administrative aide and he started on dopamine infusion - continue. Temporary pacing wire was considered but the deferred due to elevated INR. [place] Bailiff is following the patient. (2) Acute kidney injury Current visit: Yes Status: Acute Likely secondary to hypotension and diuretics. Patient is on no half normal saline infusion. Monitor renal function. (3) Hypotension Current visit: Yes Status: Acute Likely secondary to bradycardia / Medications / volume depletion. Hold diltiazem , sotolol and amlodipine. Continue half normal saline infusion. Qualifiers: Hypotension type: unspecified hypotension type Qualified Code(s): I95.9 - Hypotension, unspecified (4) Supratherapeutic INR Current visit: Yes Status: Acute Monitor INR. Hold warfarin (5) Hyperkalemia Current visit: Yes Status: Acute Likely secondary to acute kidney injury, spironolactone, supplemental potassium. D/C potassium supplements and hold spironolactone. Monitor potassium levels. (6) Chronic respiratory failure with hypoxia Current visit: Yes Status: Chronic Continue oxygen supplements (7) COPD (chronic obstructive pulmonary disease) Current visit: Yes Status: Chronic Continue bronchodilators Qualifiers: COPD type: COPD with acute exacerbation Qualified Code(s): J44.1 - Chronic obstructive pulmonary disease with (acute) exacerbation (8) BMI 50.0-59.9, adult Current visit: Yes Status: Chronic Supportive care Internal Medicine - H&P: HPI Chief complaint: Bradycardia Admitted From: Emergency Dept Plans for Post Hospital Care: Home History of present illness: Ms. Guevara is a 66 year old female with h/o atrial fibrillation on diltiazem, sotolol and warfarin; CHF, COPD on pulmonary rehab program, GERD, hypertension , migraine. She reports not feeling well for the last 5 days. She felt unwell and could not go to pulmonary rehab 5 days ago. She has pulse oximeter at home, which was showing low heart rate. Yesterday, she did go to pulmonary rehab, but could not participate well, as she felt dizzy and tired. She had seen PCP for throat problems and was prescribed azithromycin yesterday. She reports feeling dizzy and lightheaded, particularly when she stands up. She denies episodes of syncope. At times she feels chest pressure like being in the tunnel and bright light pushing her back. She reports like bright light coming on to her, while she was driving. She reports shortness of breath on exertion. Denies cough, dyspnea, fever, chills, abdominal pain, dysuria, hematuria or change in bowel habits. She reports that her heart rate was going down and was noted to be in the 30s today and hence presented to the ER. She was evaluated in the emergency department and was noted to have pulse of 35 and blood pressure of 75/48 at presentation to the emergency department. Patient was discussed with the administrative aide and was seen by the administrative aide in the ER and was noted to have junctional bradycardia - there was initial plan for temporary pacing wire placement, but deferred due to elevated INR. Patient was started on a dopamine infusion and IV fluids. She is being monitored in the ICU. Past Med Surg Social Fam HX - Past Medical History Medical history: asthma, atrial fibrillation, CHF, COPD, GERD, hypertension, migraine Psychiatric history: no psych history - Past Surgical History Surgical History: cholecystectomy, hysterectomy - Social History Smoking Status: Former smoker Smokeless Tobacco Status: No Alcohol use: none Drug use: none - Family History Sister Living Status: Hx Family Cardiac Disorders: Yes Hx Family Respiratory Disorders: Yes (copd) Mother Adopted: No Family Member Ethnicity: Non- Twin of Family Member: Yes, Fraternal Living Status: Age at : 83 Cause of : "SEPTIC BECAUSE OF A BED SORE AFTER GALL BLADDER TAKEN OUT" Hx Family Cardiac Disorders: Yes (HTN) Hx Family Respiratory Disorders: No Hx Family Cancer: Yes (Melanoma) Hx Family GI Disorders: Yes (Constipation) Hx Family Endocrine Disorder: No Hx Family Neuromuscular Disorders: No Hx Family Neurologic Disorders: No Hx Family HEENT Disorders: No Hx Family Autoimmune Disorders: No Father Adopted: No Family Member Ethnicity: Non- Twin of Family Member: Yes, Fraternal Living Status: Cause of : "CARDIAC THROMBOSIS" Hx Family Cardiac Disorders: Yes (father, grandfather,self) Hx Family Respiratory Disorders: Yes (self,sister) Hx Family Cancer: No Hx Family GI Disorders: Yes (self) Hx Family Endocrine Disorder: No Hx Family Neuromuscular Disorders: No Hx Family Neurologic Disorders: No Hx Family HEENT Disorders: No Hx Family Autoimmune Disorders: No Internal Medicine - H&P: Meds Alendronate Sodium [Fosamax] 70 mg PO WE 10/28/15 [History] Ascorbate Calcium [Vitamin C] 500 mg PO DAILY 10/28/15 [History] Cholecalciferol (Vitamin D3) [Vitamin D3] 1,000 unit PO DAILY 10/28/15 [History] Cyanocobalamin (Vitamin B-12) [Vitamin B-12] 100 mcg PO DAILY 10/28/15 [History] Tiotropium [Spiriva] 2 puff IH HS 10/28/15 [History] Warfarin [Coumadin] 5 mg PO QPM 10/28/15 [History] Dexlansoprazole [Dexilant] 60 mg PO DAILY 07/03/16 [History] Ferrous Sulfate [Iron] 325 mg PO DAILY 07/03/16 [History] Acetaminophen/Diphenhydramine [Acetaminophen Pm Caplet] 2 tab PO HS 09/09/16 [ History] Albuterol Sulfate [Proventil Hfa] 2 puff IH Q4H PRN 09/14/16 [History] Calcium Carbonate [Calcium] 500 mg PO BID 09/29/16 [History] Oxygen 3 l IH AD 10/24/16 [History] Sotalol [Betapace] 160 mg PO Q12HR #120 tablet 10/27/16 [Rx] Albuterol Neb [Proventil Neb] 2.5 mg IH Q4H PRN #1 inhsol 11/16/16 [Rx] Fluticasone/Salmeterol [Advair 250-50 Diskus] 1 puff IH BID #1 blst.w.dev [Rx] Montelukast [Singulair] 10 mg PO DAILY 11/29/16 [History] Ropinirole HCl [Requip] 2 mg PO HS 11/29/16 [History] Acetaminophen [Tylenol] 650 mg PO Q6HR PRN #0 tablet 12/04/16 [Rx] Magnesium Oxide [Mag-Ox] 400 mg PO DAILY #30 tablet 12/04/16 [Rx] Potassium Chloride 40 meq PO DAILY #30 tab.er.prt 12/04/16 [Rx] metOLazone [Zaroxolyn] 5 mg PO DAILY #30 tablet 12/04/16 [Rx] Amlodipine Besylate 2.5 mg PO DAILY 12/26/16 [History] Diltiazem CD (24hr) [Cardizem CD] 180 mg PO DAILY 12/26/16 [History] Furosemide [Lasix] 10 mg PO BID 12/26/16 [History] Olopatadine HCl [Patanol] 1 drop OP BID 12/26/16 [History] Spironolactone [Aldactone] 50 mg PO DAILY 12/26/16 [History] Azithromycin [Azithromycin 6-Tab Pack] 250 mg PO PER PKG DI 01/06/17 [History] Allergies aspirin [ASA] Allergy (Verified 09/29/16 11:04) Difficulty Breathing Penicillins Allergy (Verified 09/29/16 11:04) Hives Sulfa (Sulfonamide Antibiotics) Allergy (Verified 09/29/16 11:04) Rash All Systems PM: A 10-system review of systems was performed and is negative for pertinent findings except as documented above in the HPI. - Constitutional Vitals: Temp Pulse Resp BP Pulse Ox 97.5 F L 47 16 110/58 97 01/06/17 20:05 01/06/17 19:30 01/06/17 19:30 01/06/17 19:30 01/06/17 19:30 Exam: General: Not in acute distress at the time of my evaluation. She is sitting in the chair, by her bedside HEENT: Oral mucosa is moist. conjunctival palor present. No scleral icterus Neck: No obvious neck swellings Lungs: Bilateral basal crackles heard Cardiac: Regular rate and rhythm - bradycardic. HR of 48 BPM. Questionable systolic murmur Abdomen: Obese, non tender. Bowel sounds present Genitourinary: No ribeiro catheter Neurological: Alert and oriented. No gross localizing deficits Psych: Not aggressive or agitated Extremities: Bilateral pitting edema noted Skin: No generalized rash Internal Med - H&P Results - Labs CBC & Chem 7: 01/06/17 15:28 01/06/17 15:28 - EKG Data -: EKG Interpreted by Myself - EKG Data EKG comments: Junctional bradycardia with heart rate of 34/min. Telemetry at my evaluation showed sinus bradycardia with HR of 48 01/06/17 21:43 - Impressions ITS Impressions Chest X-Ray 01/06/17 15:30 IMPRESSION: Stable bibasilar opacities, most likely chronic atelectasis/ scarring. No definite acute abnormality. D/ / Vivek Keita MD / Vivek Keita MD Interpreting Provider: Vivek Keita MD - VTE Reasons for not Prescribing Prophylaxis: Not indicated-Anticoagulated or INR therapeutic
[2017-01-06] MEDS ORDERED: NON-FORMULARY MEDICATION 1 EACH EACH (Acetaminophen/Diphenhydramine [Acetaminophen Pm Capl PO SCH (21:30)
[2017-01-06] MEDS: rOPINIRole 1 MG TABLET PO SCH (21:56)
[2017-01-06] MEDS: Tiotropium 18 MCG inhalation IH SCH (22:22)
[2017-01-06] MEDS: Budesonide/Formoterol 80/4.5 MDI IH SCH (22:26)
[2017-01-07 03:21] LABS: Hemoglobin 10.9 g/dL (11.5-15.4); Mean Corpuscular HGB Conc 30.3 g/dL (31.6-35.5); Mean Corpuscular Hemoglobin 27.3 pg (28.0-33.3); Mean Platelet Volume 12.2 fL (9.4-12.4); Platelet Count 194 K/mcL (140-400); Red Cell Distribution Width 14.9 % (11.5-14.5)
[2017-01-07 03:27] LABS: INR 3.6; Prothrombin Time 39.9 Seconds (9.4-12.1)
[2017-01-07 03:32] LABS: Magnesium 2.5 mg/dL (1.6-2.6)
[2017-01-07 03:37] LABS: Calcium 9.8 mg/dL (8.6-10.8); Potassium 5.6 mEq/L (3.5-4.5)
[2017-01-07 03:40] LABS: Hemoglobin A1C 5.6 %
[2017-01-07 04:01] LABS: Thyroid Stimulating Hormone 1.044 mcIU/mL (0.350-4.840)
[2017-01-07 04:07] LABS: Bilirubin,Urine Negative (Negative); Blood,Urine Negative (Negative); Clarity,Urine Clear (Clear); Color,Urine Yellow (Yellow); Glucose,Urine (UA) Normal (Normal); Ketones,Urine Negative (Negative); Leukocyte Esterase,Urine Negative (Negative); Nitrite,Urine Negative (Negative); PH,Urine 5.5 pH Units (5.0-8.0); Protein,Urine Negative (Neg-Trace); Specific Gravity,Urine 1.016 (1.010-1.025); Urobilinogen,Urine Normal (Normal)
[2017-01-07] MEDS: Budesonide/Formoterol 80/4.5 MDI IH SCH ×2 (07:48→21:07)
[2017-01-07] MEDS ORDERED: 0.9 % Sodium Chloride 500 ML IVC ONE (08:18)
[2017-01-07] MEDS ORDERED: 0.9 % Sodium Chloride 1,000 ML IVC SCH (08:30)
[2017-01-07] MEDS: Cyanocobalamin (B-12) 1,000 MCG TABLET PO SCH (09:18)
[2017-01-07] MEDS: Cholecalciferol (D-3) 1,000 UNIT TABLET PO SCH (09:18)
[2017-01-07] MEDS: PATANOL OPTHALMIC OP SCH ×2 (09:19→20:22)
--- NOTE | 2017-01-07 09:56 | Internal Med Progress Note ---
Date of Encounter: 01/07/17 Time of Encounter: 09:40 - Assessment and plan (1) Essential hypertension Current Visit: Yes Status: Chronic Assessment and plan: Hypotensive on arrival, meds held (2) Heart failure with preserved ejection fraction Current Visit: Yes Status: Chronic Assessment and plan: Patient currently in TANO and receiving boluses Monitor respiratory status closely (3) Paroxysmal atrial fibrillation Current Visit: Yes Status: Chronic Assessment and plan: HR controlled, bradycardia on admission, continue to hold medications (4) Hypothyroid Current Visit: Yes Status: Chronic Assessment and plan: Resume home meds Qualifiers: Hypothyroidism type: unspecified Qualified Code(s): E03.9 - Hypothyroidism , unspecified (5) Symptomatic bradycardia Current Visit: Yes Status: Acute Assessment and plan: Continue Dopamine, plan to wean off Cardiology following Continue to hold CCB/Sotalol (6) Supratherapeutic INR Current Visit: Yes Status: Acute Assessment and plan: Continue to hold Coumadin (7) Hypotension Current Visit: Yes Status: Resolved Assessment and plan: Improving with IVF, secondary to medications Qualifiers: Hypotension type: unspecified hypotension type Qualified Code(s): I95.9 - Hypotension, unspecified (8) Acute kidney injury Current Visit: Yes Status: Acute Assessment and plan: Pre-renal, non-oliguric, secondary to hypotension, patient on diuretics Give 500cc bolus and maintenance fluid D/C half saline,change to normal saline Obtain Renal USS Continue to hold Spironolactone/Lasix/Metolazone/ACEI (9) Hyperkalemia Current Visit: Yes Status: Acute Assessment and plan: Secondary to TANO, patient was also taking potassium supplements at home Give kayexalate D/C supplements for now Rpt K p.m today (10) Morbid obesity with BMI of 50.0-59.9, adult Current Visit: Yes Status: Chronic (11) Emphysema lung Current Visit: Yes Status: Chronic Assessment and plan: Not in exacerbation at this time Continue home meds Qualifiers: Emphysema type: other Qualified Code(s): J43.8 - Other emphysema - Subjective Interval history: Seen and evaluated at bedside in the ICU No new complains - Constitutional Vitals: Temp Pulse Resp BP Pulse Ox 97.9 F 54 19 106/53 100 01/07/17 03:12 01/07/17 08:40 01/07/17 08:40 01/07/17 08:40 01/07/17 08:40 General appearance: Present: A&O X 3, morbidly obese, pleasant, no acute distress - Head Head exam: Present: atraumatic, normocephalic - Eye Eye exam: Present: PERRL, conjuntiva pink, sclera anicteric Pupils: Present: PERRL - Neck Neck exam general surgery: Present: supple, trachea midline. Absent: lymphadenopathy - Respiratory Respiratory exam: Present: CTAB. Absent: accessory muscle use, rales, rhonchi, wheezes - Cardiovascular Cardiovascular exam: Present: irregular rhythm, +S1, +S2. Absent: diastolic murmur, gallop, rubs, systolic murmur - GI/Abdominal GI/Abdominal exam: Present: normal bowel sounds, soft, no peritoneal signs. Absent: distended, tenderness - Extremities Exam Extremities exam: Present: pedal edema (trace bilateral edema), warm, radial pulses palpable and symetrical. Absent: calf tenderness, cyanotic - Neurological Exam Neurological exam: Present: alert, CN II-XII intact, oriented X3, no focal deficits. Absent: pronater drift, facial droop, speech deficit - Skin Skin exam: Present: dry, intact Internal Medicine: Result - Labs CBC & Chem 7: 01/07/17 03:13 01/07/17 03:13 Labs: Short CBC 01/07/17 Range/Units 03:13 WBC 10.3 (4.3-11.1) K/mcL Hgb 10.9 L (11.5-15.4) g/dL Hct 36.0 (35.3-44.9) % Plt Count 194 (140-400) K/mcL BMP 01/07/17 03:13 Sodium 135 L Potassium 5.6 H Chloride 99 Carbon Dioxide 27 BUN 84 H Creatinine 2.16 H Glucose 132 H Calcium 9.8 Cardiac Enzymes 01/07/17 Range/Units 03:13 Troponin I 0.02 (0-0.03) ng/mL Urine 01/07/17 Range/Units 03:10 Urine Color Yellow (Yellow) Urine Clarity Clear (Clear) Urine pH 5.5 (5.0-8.0) pH Units Ur Specific [place] 1.016 (1.010-1.025) Urine Protein Negative (Neg-Trace) mg/dL Urine Glucose (UA) Normal (Normal) mg/dL - ABG Interpretation ABG results: PT/INR, D-dimer PT 39.9 Seconds (9.4-12.1) H 01/07/17 03:13 D-Dimer 288 ng/mLFEU (0-500) 01/06/17 15:28 - VTE Reasons for not Prescribing Prophylaxis: Not indicated-Anticoagulated or INR therapeutic Consult Discharge Plan - Plan Referrals: Lisbet Ray, MANOLO [Primary Care Provider] -
--- NOTE | 2017-01-07 10:02 | Cardiology Progress Note ---
Date of Encounter: 01/07/17 Time of Encounter: 10:00 Assessment and Plan (1) Paroxysmal atrial fibrillation Current Visit: No Status: Chronic History of PAF managed with sotalol/cardiaze and Coumadin. Recently develped bradycardia - see comments below. Continue coumadin with a goal INR of 2-3. (2) Symptomatic bradycardia Current Visit: Yes Status: Acute Symptomatic bradycardia on admission - possible junctional rhythm. HR improving with holding sotalol/cardizem and low dose dopamine. Continue low dose dopamine as medications wear off, then decrease dopamine to off. HR 55-60 with stable BP today. All questions answered. Further recommendations to follow. Your medical management regarding TANO and hyperkalemia (which could be contributing to bradycardia). Discussion w patient/family: The assessment and plan as outlined above was discussed with the patient and/or family members who expressed understanding and agreement. All questions were answered. Thank you for involving us in the care of your patient. Please call with any questions. Subjective Principal diagnosis: Symptomatic bradycardia Interval history: History of PAF. Presented on sotalol and cardizem therapy. Reports HR 30s at home for much of week. Consideration given to temporary pacemaker, but patient appeared stable and INR elevated, so decision made to monitor. Overall, patient feels better today. HR 55-60 on low dose dopamine. BP stable. Objective Vital Signs, Last 4 Hours Pulse Resp BP Pulse Ox 01/07/17 08:40 54 19 106/53 100 01/07/17 07:45 50 18 89/53 97 General: Conversant, No Apparent Distress HEENT: Atraumatic, Normocephaly, Mucus Membranes Moist Neck: No JVD, Normal carotid pulses Cardiac: Reg Rate and Rhythm, Normal S1 and S2, No Murmur Lungs: Normal Breath Sounds, No Wheeze, Rales, Rhonchi Neuro: Alert and responsive, No focal deficits noted Abdomen: Soft, Non-Tender Skin: No rashes noted on visualized skin Musculoskeletal: No Chest Wall Tenderness Extremities: No Clubbing, No Cyanosis, No Edema Results 01/07/17 03:13 01/07/17 03:13 Lab Results 01/07/17 01/07/17 01/07/17 03:13 03:13 03:13 WBC 10.3 Hgb 10.9 L Hct 36.0 Plt Count 194 INR 3.6 Sodium 135 L Potassium 5.6 H Chloride 99 Carbon Dioxide 27 BUN 84 H Creatinine 2.16 H Glucose 132 H Calcium 9.8 Magnesium Troponin I TSH 01/07/17 01/07/17 03:13 03:13 WBC Hgb Hct Plt Count INR Sodium Potassium Chloride Carbon Dioxide BUN Creatinine Glucose Calcium Magnesium 2.5 Troponin I 0.02 TSH 1.044 - EKG Interpretation EKG results cardiology: personally reviewed - VTE Reasons for not Prescribing Prophylaxis: Not indicated-Anticoagulated or INR therapeutic Consult Discharge Plan - Plan Referrals: Lisbet Ray, SHIPFITTER [Primary Care Provider] -
[2017-01-07] MEDS: rOPINIRole 1 MG TABLET PO SCH (20:24)
[2017-01-07] MEDS: Tiotropium 18 MCG inhalation IH SCH (21:05)
[2017-01-08 03:28] LABS: Basophils % 0.2 %; Eosinophils # 0.2 K/mcL (0.0-0.6); Eosinophils % 2.9 %; Hematocrit 32.6 % (35.3-44.9); Hemoglobin 9.7 g/dL (11.5-15.4); Immature Granulocytes % 0.3 % (0-4); Immature Platelets 7.9 % (1.1-6.1); Lymphocytes # 1.3 K/mcL (0.6-4.6); Lymphocytes % 21.3 %; Mean Corpuscular HGB Conc 29.8 g/dL (31.6-35.5); Mean Corpuscular Hemoglobin 26.6 pg (28.0-33.3); Mean Corpuscular Volume 89.3 fL (83.0-100.0); Mean Platelet Volume 11.9 fL (9.4-12.4); Monocytes # 0.8 K/mcL (0.0-1.3); Monocytes % 13.1 %; Neutrophils # 3.7 K/mcL (1.6-8.9); Platelet Count 160 K/mcL (140-400); Red Blood Count 3.65 M/mcL (3.82-4.97); Segmented Neutrophils % 62.2 %
[2017-01-08 03:34] LABS: INR 2.9; Prothrombin Time 32.6 Seconds (9.4-12.1)
[2017-01-08 03:41] LABS: Calcium 9.6 mg/dL (8.6-10.8); Potassium 5.3 mEq/L (3.5-4.5)
[2017-01-08] MEDS: Cholecalciferol (D-3) 1,000 UNIT TABLET PO SCH (08:52)
[2017-01-08] MEDS: Cyanocobalamin (B-12) 1,000 MCG TABLET PO SCH (08:52)
[2017-01-08] MEDS: PATANOL OPTHALMIC OP SCH (08:53)
--- NOTE | 2017-01-08 08:57 | Cardiology Progress Note ---
Date of Encounter: 01/08/17 Time of Encounter: 09:40 Assessment and Plan (1) Symptomatic bradycardia Current Visit: Yes Status: Acute Symptomatic bradycardia on admission - possible junctional rhythm. HR improving with holding sotalol/cardizem and low dose dopamine. Patient is no longer on dopamine infusion. Patient received last bolus 2016 in the ED. Patient's heart rate and blood pressures has been improving since bolus. HR 58-66 with stable BP today. Current plan to hold sotalol and Cardizem 1 more day and continue to monitor patient's pulse and blood pressure. Restart sotalol at 80 mg twice a day if patient continues to have positive progression at reassessment tomorrow All questions answered. Further recommendations to follow. Your medical management regarding TANO and hyperkalemia (which could be contributing to bradycardia). (2) Paroxysmal atrial fibrillation Current Visit: Yes Status: Chronic History of PAF managed with sotalol/cardiaze and Coumadin. Recently develped bradycardia - see comments below. Patient presented with supratherapeutic INR of 3.6 and 01/06/2017. INR is 2.9 on 01/08/2017 Continue coumadin with a goal INR of 2-3. Discussion w patient/family: The assessment and plan as outlined above was discussed with the patient and/or family members who expressed understanding and agreement. All questions were answered. Thank you for involving us in the care of your patient. Please call with any questions. Subjective Principal diagnosis: Symptomatic bradycardia Interval history: Patient is a 66-year-old female admitted to ICU 2 days ago for symptomatic bradycardia and supratherapeutic INR. Patient stated she had heavy chest pressure, weakness and fatigue 4 days ago. Patient is on sotalol and Cardizem therapy that was held and patient was placed on dopamine infusion. Patient seen and examined at bedside at this a.m. Patient denies any complaints of chest pain or pressure today. Patient had no adverse events overnight. Patient states that she is feeling much better today. Objective Vital Signs, Last 4 Hours Temp Pulse Resp BP Pulse Ox 01/08/17 07:41 98.1 F 01/08/17 07:00 58 17 137/49 100 0844 hrs. Vital signs at bedside: Blood pressure 137/57, pulse 66, respirations 16, SPO2 99 2 L nasal cannula General: Conversant, No Apparent Distress HEENT: Atraumatic, Normocephaly, Mucus Membranes Moist Neck: No JVD, Normal carotid pulses Cardiac: Reg Rate and Rhythm, Normal S1 and S2 Lungs: Normal Breath Sounds, No Wheeze, Rales, Rhonchi Neuro: Alert and responsive, No focal deficits noted Abdomen: Soft, Non-Tender Skin: No rashes noted on visualized skin Musculoskeletal: No Chest Wall Tenderness Extremities: No Clubbing, No Cyanosis, No Edema, Normal Pulses Results 01/08/17 03:15 01/08/17 03:15 Lab Results 01/07/17 01/08/17 01/08/17 15:09 03:15 03:15 WBC 6.0 Hgb 9.7 L Hct 32.6 L Plt Count 160 INR Sodium 138 Potassium 5.3 H 5.3 H Chloride 103 Carbon Dioxide 30 H BUN 69 H Creatinine 1.27 H Glucose 115 H Calcium 9.6 01/08/17 03:15 WBC Hgb Hct Plt Count INR 2.9 Sodium Potassium Chloride Carbon Dioxide BUN Creatinine Glucose Calcium - VTE Reasons for not Prescribing Prophylaxis: Not indicated-Anticoagulated or INR therapeutic Consult Discharge Plan - Plan Referrals: Lisbet Ray, CUSTOMER SPECIALIST [Primary Care Provider] -
[2017-01-08] MEDS ORDERED: Magnesium Oxide 400 MG TABLET PO SCH (09:00)
[2017-01-08] MEDS: Budesonide/Formoterol 80/4.5 MDI IH SCH ×2 (10:09→21:28)
--- NOTE | 2017-01-08 10:11 | Internal Med Progress Note ---
Date of Encounter: 01/08/17 Time of Encounter: 10:09 - Assessment and plan (1) Essential hypertension Current Visit: Yes Status: Chronic Assessment and plan: Blood pressure has improved Resume home meds, except diuretics/acei as BP tolerates (2) Heart failure with preserved ejection fraction Current Visit: Yes Status: Chronic Assessment and plan: Patient currently in TANO IVF discontinued Has pedal edema, plan to resume lasix as kidney function normalizes Monitor respiratory status closely (3) Paroxysmal atrial fibrillation Current Visit: Yes Status: Chronic Assessment and plan: HR controlled, bradycardia on admission, continue to hold medications (4) Hypothyroid Current Visit: Yes Status: Chronic Assessment and plan: Continue Synthroid Qualifiers: Hypothyroidism type: unspecified Qualified Code(s): E03.9 - Hypothyroidism , unspecified (5) Symptomatic bradycardia Current Visit: Yes Status: Acute Assessment and plan: D.C dopamine Follow ECHO Cardiology following Continue to hold meds, HR acceptable for now (6) Supratherapeutic INR Current Visit: Yes Status: Acute Assessment and plan: CINR 2.9 Resume coumadin, pharmacy to dose with INR (7) Hypotension Current Visit: Yes Status: Resolved Assessment and plan: resolved Qualifiers: Hypotension type: unspecified hypotension type Qualified Code(s): I95.9 - Hypotension, unspecified (8) Acute kidney injury Current Visit: Yes Status: Acute Assessment and plan: Pre-renal, non-oliguric, secondary to hypotension, patient on diuretics improving follow Renal USS Continue to hold Spironolactone/Lasix/Metolazone/ACEI (9) Hyperkalemia Current Visit: Yes Status: Acute Assessment and plan: Secondary to TANO, patient was also taking potassium supplements at home Give kayexalate 30g stat D/C supplements for now Rpt potassium level (10) Morbid obesity with BMI of 50.0-59.9, adult Current Visit: Yes Status: Chronic (11) Emphysema lung Current Visit: Yes Status: Chronic Assessment and plan: Not in exacerbation at this time Continue home meds Qualifiers: Emphysema type: other Qualified Code(s): J43.8 - Other emphysema - Subjective Interval history: Seen and evaluated at bedside in the ICU No new complains HR and BP have improved Renal function is improving, hyperkalemia persists, patient getting Renal USS at time of review Denies new complains, feels better - Constitutional Vitals: Temp Pulse Resp BP Pulse Ox 98.1 F 58 17 137/49 100 01/08/17 07:41 01/08/17 07:00 01/08/17 07:00 01/08/17 07:00 01/08/17 07:00 General appearance: Present: A&O X 3, morbidly obese, pleasant, no acute distress - Head Head exam: Present: atraumatic, normocephalic - Eye Eye exam: Present: PERRL, conjuntiva pink, sclera anicteric Pupils: Present: PERRL - Neck Neck exam general surgery: Present: supple, trachea midline. Absent: lymphadenopathy - Respiratory Respiratory exam: Present: CTAB. Absent: accessory muscle use, rales, rhonchi, wheezes - Cardiovascular Cardiovascular exam: Present: irregular rhythm, +S1, +S2. Absent: diastolic murmur, gallop, rubs, systolic murmur - GI/Abdominal GI/Abdominal exam: Present: normal bowel sounds, soft, no peritoneal signs. Absent: distended, tenderness - Extremities Exam Extremities exam: Present: pedal edema, warm, radial pulses palpable and symetrical. Absent: calf tenderness, cyanotic - Neurological Exam Neurological exam: Present: alert, CN II-XII intact, oriented X3, no focal deficits. Absent: pronater drift, facial droop, speech deficit - Skin Skin exam: Present: dry, intact Internal Medicine: Result - Labs CBC & Chem 7: 01/08/17 03:15 01/08/17 03:15 Labs: Short CBC 01/08/17 Range/Units 03:15 WBC 6.0 (4.3-11.1) K/mcL Hgb 9.7 L (11.5-15.4) g/dL Hct 32.6 L (35.3-44.9) % Plt Count 160 (140-400) K/mcL Neutrophils # 3.7 (1.6-8.9) K/mcL BMP 01/07/17 01/08/17 15:09 03:15 Sodium 138 Potassium 5.3 H 5.3 H Chloride 103 Carbon Dioxide 30 H BUN 69 H Creatinine 1.27 H Glucose 115 H Calcium 9.6 - ABG Interpretation ABG results: PT/INR, D-dimer PT 32.6 Seconds (9.4-12.1) H 06/05/17 03:15 D-Dimer 288 ng/mLFEU (0-500) 01/06/17 15:28 - VTE Reasons for not Prescribing Prophylaxis: Not indicated-Anticoagulated or INR therapeutic Consult Discharge Plan - Plan Referrals: Lisbet Ray CNP [Primary Care Provider] -
[2017-01-08] MEDS: *HR* Warfarin 5 MG TABLET PO SCH (16:45)
--- NOTE | 2017-01-08 17:10 | Electrocardiograph Report ---
[address] [place] [address] Test Date: 2017-01-06 Pat Name: Alyssa Guevara Department: 103 Room: 2N1 Gender: F [employer]: MÓNICA : 1950 Requested By: Leonardo Leslie Order Number: [id number] Reading MD: Taniya Cedillo Measurements Intervals [place] Rate: 34 P: [place]: 0 QRS: 55 QRSD: 78 T: 47 QT: 478 QTc: 376 Interpretive Statements JUNCTIONAL BRADYCARDIA CONSID[employer] SEPTAL NM Electronically Signed On 01-08-2017 17:09:11 EDT by Taniya Cedillo
[2017-01-08] MEDS ORDERED: Warfarin perPT PO PRN (18:00)
[2017-01-08] MEDS: rOPINIRole 1 MG TABLET PO SCH (19:36)
[2017-01-08] MEDS: Tiotropium 18 MCG inhalation IH SCH (21:28)
[2017-01-09 03:20] LABS: INR 2.1
[2017-01-09 03:22] LABS: Basophils % 0.2 %; Eosinophils # 0.1 K/mcL (0.0-0.6); Eosinophils % 2.5 %; Hematocrit 32.7 % (35.3-44.9); Hemoglobin 9.8 g/dL (11.5-15.4); Immature Granulocytes % 0.2 % (0-4); Lymphocytes # 1.2 K/mcL (0.6-4.6); Lymphocytes % 21.5 %; Mean Corpuscular Hemoglobin 26.7 pg (28.0-33.3); Mean Corpuscular Volume 89.1 fL (83.0-100.0); Monocytes # 0.7 K/mcL (0.0-1.3); Monocytes % 12.2 %; Neutrophils # 3.6 K/mcL (1.6-8.9); Platelet Count 150 K/mcL (140-400); Red Blood Count 3.67 M/mcL (3.82-4.97); Red Cell Distribution Width 15.1 % (11.5-14.5); Segmented Neutrophils % 63.4 %
[2017-01-09 03:26] LABS: BUN/Creatinine Ratio 49 (6-26); Calcium 9.7 mg/dL (8.6-10.8); Carbon Dioxide 31 mEq/L (19-29); Chloride 103 mEq/L (98-109); Glucose 113 mg/dL (70-99); Osmolality,Calculated 301 (280-300); Potassium 4.8 mEq/L (3.5-4.5); Sodium 140 mEq/L (136-145); eGFR For African Americans > 60 (> 60); eGFR For Non-African Americans > 60 (> 60)
[2017-01-09 03:28] LABS: Blood Urea Nitrogen 42 mg/dL (7-20)
--- NOTE | 2017-01-09 09:02 | Internal Med Progress Note ---
<CedricCharlie gonzalez - Last Filed: 01/09/17 08:59> Date of Encounter: 01/09/17 Time of Encounter: 09:00 - Assessment and plan (1) Symptomatic bradycardia Current Visit: Yes Status: Acute Assessment and plan: Resolved at this time. Cardiology following, plan to restart sotolol and CCB balbina today. Will monitor overnight (2) Acute kidney injury Current Visit: Yes Status: Acute Assessment and plan: Likely related to dehydration in the setting of fluid restriction diet. Resolved at this time. Good urine output. Continue to monitor (3) Heart failure with preserved ejection fraction Current Visit: Yes Status: Chronic Assessment and plan: With mild pedal edema, will check with cardiology but likely restart lasix today. No respiratory compromise. (4) Atrial fibrillation Current Visit: No Status: Resolved Assessment and plan: Stable, restart meds as directed by cardiology as discussed above. INR 2.1, continue coumadin Qualifiers: Atrial fibrillation type: paroxysmal Qualified Code(s): I48.0 - Paroxysmal atrial fibrillation (5) Hypothyroid Current Visit: Yes Status: Chronic Assessment and plan: Continue Synthroid Qualifiers: Hypothyroidism type: unspecified Qualified Code(s): E03.9 - Hypothyroidism , unspecified (6) Supratherapeutic INR Current Visit: Yes Status: Acute Assessment and plan: Resolved, INR 2.1, continue coumadin (7) Hypotension Current Visit: Yes Status: Resolved Assessment and plan: Due to bradycardia, resolved at this time. Restart home meds as directed by cardiology Qualifiers: Hypotension type: unspecified hypotension type Qualified Code(s): I95.9 - Hypotension, unspecified (8) Hyperkalemia Current Visit: Yes Status: Acute Assessment and plan: Due to TANO, improved. Continue to monitor - Subjective Interval history: Patient seen and examined bedside. Patient states she feels pretty good today. She does report some increased lower extremity edema. She denies dizziness, lightheadedness, chest pain, dyspnea, palpitations - Constitutional Vitals: Temp Pulse Resp BP Pulse Ox 97.6 F 87 15 146/64 98 01/09/17 06:56 01/09/17 06:56 01/09/17 06:56 01/09/17 06:56 01/09/17 06:56 General appearance: Present: A&O X 3, morbidly obese, pleasant, no acute distress - Respiratory Respiratory exam: Present: CTAB. Absent: rales, rhonchi, wheezes - Cardiovascular Cardiovascular exam: Present: irregular rhythm. Absent: gallop, rubs, systolic murmur, tachycardia - GI/Abdominal GI/Abdominal exam: Present: normal bowel sounds, soft. Absent: distended, tenderness - Extremities Exam Extremities exam: Present: pedal edema (2+), warm. Absent: tenderness - Neurological Exam Neurological exam: Present: alert, oriented X3, no focal deficits Internal Medicine: Result - Labs CBC & Chem 7: 01/09/17 03:00 01/09/17 03:00 Labs: Short CBC 01/09/17 Range/Units 03:00 WBC 5.6 (4.3-11.1) K/mcL Hgb 9.8 L (11.5-15.4) g/dL Hct 32.7 L (35.3-44.9) % Plt Count 150 (140-400) K/mcL Neutrophils # 3.6 (1.6-8.9) K/mcL BMP 01/09/17 03:00 Sodium 140 Potassium 4.8 H Chloride 103 Carbon Dioxide 31 H BUN 42 H D Creatinine 0.86 Glucose 113 H Calcium 9.7 - ABG Interpretation ABG results: PT/INR, D-dimer PT 23.0 Seconds (9.4-12.1) H 01/09/17 03:00 D-Dimer 288 ng/mLFEU (0-500) 01/06/17 15:28 - Impressions Impressions Retroperitoneum Ultrasound 01/08/17 00:00 IMPRESSION: 1. Unremarkable appearance of the kidneys. 2. Underdistended bladder is not well evaluated. D/ / Sydeny Green MD / Sydney Green MD Interpreting Provider: Sydney Green MD - VTE Reasons for not Prescribing Prophylaxis: Not indicated-Anticoagulated or INR therapeutic Consult Discharge Plan - Plan Referrals: Lisbet Ray CNP [Primary Care Provider] - 01/16/17 9:30 am <Landry Cool - Last Filed: 06/06/17 17:31> Date of Encounter: 01/09/17 - Assessment and plan (1) Hypotension Current Visit: Yes Status: Resolved Assessment and plan: Related to cardiac meds and volume depletion (fluid restriction). Resolved. Qualifiers: Hypotension type: hypotension due to drug Qualified Code(s): I95.2 - Hypotension due to drugs (2) Bradycardia Current Visit: Yes Status: Resolved (3) Atrial fibrillation Current Visit: No Status: Resolved Qualifiers: Atrial fibrillation type: paroxysmal Qualified Code(s): I48.0 - Paroxysmal atrial fibrillation (4) Acute kidney injury Current Visit: Yes Status: Resolved (5) Palpitations Current Visit: Yes Status: Chronic (6) Chronic respiratory failure with hypoxia Current Visit: Yes Status: Chronic (7) BMI 50.0-59.9, adult Current Visit: Yes Status: Chronic (8) COPD (chronic obstructive pulmonary disease) Current Visit: Yes Status: Chronic Qualifiers: COPD type: emphysema Emphysema type: centrilobular Qualified Code(s): J43.2 - Centrilobular emphysema (9) Hypothyroid Current Visit: Yes Status: Chronic Qualifiers: Hypothyroidism type: unspecified Qualified Code(s): E03.9 - Hypothyroidism , unspecified (10) Diastolic CHF Current Visit: No Status: Chronic Qualifiers: Congestive heart failure chronicity: chronic Qualified Code(s): I50.32 - Chronic diastolic (congestive) heart failure (11) Morbid obesity Current Visit: No Status: Chronic Qualifiers: Obesity type: due to excess calories Qualified Code(s): E66.01 - Morbid ( severe) obesity due to excess calories (12) Hypertension Current Visit: No Status: Chronic Qualifiers: Hypertension type: essential hypertension Qualified Code(s): I10 - Essential (primary) hypertension (13) GERD (gastroesophageal reflux disease) Current Visit: No Status: Chronic Qualifiers: Esophagitis presence: without esophagitis Qualified Code(s): K21.9 - Gastro -esophageal reflux disease without esophagitis - Constitutional Vitals: Temp Pulse Resp BP Pulse Ox 97.5 F L 89 15 152/59 98 01/09/17 16:00 01/09/17 16:00 01/09/17 16:00 01/09/17 16:00 01/09/17 16:00 Internal Medicine: Result - Labs CBC & Chem 7: 01/09/17 03:00 01/09/17 03:00 Labs: Short CBC 01/09/17 Range/Units 03:00 WBC 5.6 (4.3-11.1) K/mcL Hgb 9.8 L (11.5-15.4) g/dL Hct 32.7 L (35.3-44.9) % Plt Count 150 (140-400) K/mcL Neutrophils # 3.6 (1.6-8.9) K/mcL BMP 01/09/17 03:00 Sodium 140 Potassium 4.8 H Chloride 103 Carbon Dioxide 31 H BUN 42 H D Creatinine 0.86 Glucose 113 H Calcium 9.7 - ABG Interpretation ABG results: PT/INR, D-dimer PT 23.0 Seconds (9.4-12.1) H 01/09/17 03:00 D-Dimer 288 ng/mLFEU (0-500) 01/06/17 15:28 - Attending Attestation I examined this patient and my medical decision-making was reviewed with the Resident Physician on 01/09/17. I agree with the documented findings, disposition and treatment plan as described except to the extent set forth below. Ms. Guevara is currently admitted for bradycardia, hypotension and TANO. She remains moderate to high risk due to potential for worsening cardiac status. Ms. Guevara is having more palpitations today. Remains in sinus rhythm in 90s. BP is good at this time. To start Rhythmol therapy tomorrow. No fever or chills. No GI symptoms. Exam Alert. Comfortable Heart reg Lungs diminished but clear Abd soft I/P 1. Bradycardia - resolved 2. PAF 3. Hypotension - resolved To start Rhythmol therapy tomorrow.
[2017-01-09] MEDS: Cholecalciferol (D-3) 1,000 UNIT TABLET PO SCH (09:24)
[2017-01-09] MEDS: Cyanocobalamin (B-12) 1,000 MCG TABLET PO SCH (09:24)
[2017-01-09] MEDS: Budesonide/Formoterol 80/4.5 MDI IH SCH ×2 (10:10→20:12)
--- NOTE | 2017-01-09 11:13 | Cardiology Consult Note ---
Date of Encounter: 01/09/17 Time of Encounter: 08:45 Assessment and Plan (1) Bradycardia Current Visit: Yes Status: Acute Per EP: -Junctional bradycardia noted per ECG on admission with HR 34. -Patient was symptomatic. -Sotalol and cardizem were stopped. -Patient was placed on dopamine and was in ICU. -Previous 12 hours, average HR noted to be 79. -Bradycardia in the setting of TANO. (2) Paroxysmal atrial fibrillation Current Visit: Yes Status: Chronic Per EP: -KNown paroxysmal atrial fibrillation. -Was on cardizem and sotalol as outpatient. Sotalol was 160mg BID. -Rssyt2uctv score 3 (age, HTN, and gender). Patient anticoagulated on coumadin. Currently coumadin being managed by pharmacy while inpatient. -Patient admitted with bradycardia in the setting of TANO. -Cardizem and sotalol have been held. -Patient had been followed during admission by general cardiololgy. -Will restart sotalol 80mg (net lower dose) BID since renal function now improved. -Recommend close monitoring due to bradycardia. -Further recommendations pending review with Dr.John Virk. (3) TANO (acute kidney injury) Current Visit: No Status: Acute Per EP: -TANO on admission with creatinine 2.16. -Baseline creatinine 0.8-1. -Creatinine today 0.86. -Suspect may have contributed to bradycardia. -Management per primary service. Discussion w patient/family: The assessment and plan as outlined above was discussed with the patient who expressed understanding and agreement. All questions were answered. Thank you for involving us in the care of your patient. Please call with any questions. Discussed and reviewed with Dr.John Virk. History of Present Illness Consult date: 01/09/17 Requesting physician: Colt Salas Consult reason: bradycardia/ history of a.fib Chief complaint: dizziness History of present illness: EP consults: Ms. Guevara is a 66 year old female with a relevant past medical history of atrial fibrillation, COPD, asthma, and HTN. Patient presented to ER with complaints of dizziness and low HR. HR was noted to be in the 30s. Patient was admitted to ICU and was placed on dopamine drip. Sotalol and cardizem were held due to bradycardia. Patient was also noted to have TANO. Creatinine was 2.16. Baseline creatinine 0.8-1. General cardiology has been following patient. EP consulted today for recommendatiosn regarding atrial fibrillation/medication regimen. Patient admits to occasional palpitations. Patient states breathing is about baseline. Past Med Surg Social Fam HX - Past Medical History Attestation: Yes The following information was validated with the patient. Source: patient, old records reviewed Medical history: asthma, atrial fibrillation, CHF, COPD, GERD, hypertension, migraine Psychiatric history: no psych history - Past Surgical History Surgical History: cholecystectomy, hysterectomy - Social History Smoking Status: Former smoker Smokeless Tobacco Status: No Alcohol use: none Drug use: none - Family History Sister Living Status: Hx Family Cardiac Disorders: Yes Hx Family Respiratory Disorders: Yes (copd) Mother Adopted: No Family Member Ethnicity: Non- Twin of Family Member: Yes, Fraternal Living Status: Age at : 83 Cause of : "SEPTIC BECAUSE OF A BED SORE AFTER GALL BLADDER TAKEN OUT" Hx Family Cardiac Disorders: Yes (HTN) Hx Family Respiratory Disorders: No Hx Family Cancer: Yes (Melanoma) Hx Family GI Disorders: Yes (Constipation) Hx Family Endocrine Disorder: No Hx Family Neuromuscular Disorders: No Hx Family Neurologic Disorders: No Hx Family HEENT Disorders: No Hx Family Autoimmune Disorders: No Father Adopted: No Family Member Ethnicity: Non- Twin of Family Member: Yes, Fraternal Living Status: Cause of : "CARDIAC THROMBOSIS" Hx Family Cardiac Disorders: Yes (father, grandfather,self) Hx Family Respiratory Disorders: Yes (self,sister) Hx Family Cancer: No Hx Family GI Disorders: Yes (self) Hx Family Endocrine Disorder: No Hx Family Neuromuscular Disorders: No Hx Family Neurologic Disorders: No Hx Family HEENT Disorders: No Hx Family Autoimmune Disorders: No Medications and Allergies Alendronate Sodium [Fosamax] 70 mg PO WE 10/28/15 [History] Ascorbate Calcium [Vitamin C] 500 mg PO DAILY 10/28/15 [History] Cholecalciferol (Vitamin D3) [Vitamin D3] 1,000 unit PO DAILY 10/28/15 [History] Cyanocobalamin (Vitamin B-12) [Vitamin B-12] 100 mcg PO DAILY 10/28/15 [History] Tiotropium [Spiriva] 2 puff IH HS 10/28/15 [History] Warfarin [Coumadin] 5 mg PO QPM 03/24/16 [History] Dexlansoprazole [Dexilant] 60 mg PO DAILY 07/03/16 [History] Ferrous Sulfate [Iron] 325 mg PO DAILY 07/03/16 [History] Acetaminophen/Diphenhydramine [Acetaminophen Pm Caplet] 2 tab PO HS 09/09/16 [ History] Albuterol Sulfate [Proventil Hfa] 2 puff IH Q4H PRN 09/14/16 [History] Calcium Carbonate [Calcium] 500 mg PO BID 09/29/16 [History] Oxygen 3 l IH AD 10/24/16 [History] Sotalol [Betapace] 160 mg PO Q12HR #120 tablet 10/27/16 [Rx] Albuterol Neb [Proventil Neb] 2.5 mg IH Q4H PRN #1 inhsol 11/16/16 [Rx] Fluticasone/Salmeterol [Advair 250-50 Diskus] 1 puff IH BID #1 blst.w.dev [Rx] Montelukast [Singulair] 10 mg PO DAILY 11/29/16 [History] Ropinirole HCl [Requip] 2 mg PO HS 11/29/16 [History] Acetaminophen [Tylenol] 650 mg PO Q6HR PRN #0 tablet 12/04/16 [Rx] Magnesium Oxide [Mag-Ox] 400 mg PO DAILY #30 tablet 12/04/16 [Rx] Potassium Chloride 40 meq PO DAILY #30 tab.er.prt 12/04/16 [Rx] metOLazone [Zaroxolyn] 5 mg PO DAILY #30 tablet 12/04/16 [Rx] Amlodipine Besylate 2.5 mg PO DAILY 12/26/16 [History] Diltiazem CD (24hr) [Cardizem CD] 180 mg PO DAILY 12/26/16 [History] Furosemide [Lasix] 10 mg PO BID 12/26/16 [History] Olopatadine HCl [Patanol] 1 drop OP BID 12/26/16 [History] Spironolactone [Aldactone] 50 mg PO DAILY 12/26/16 [History] Azithromycin [Azithromycin 6-Tab Pack] 250 mg PO PER PKG DI 01/06/17 [History] Allergies aspirin [ASA] Allergy (Verified 09/29/16 11:04) Difficulty Breathing Penicillins Allergy (Verified 09/29/16 11:04) Hives Sulfa (Sulfonamide Antibiotics) Allergy (Verified 09/29/16 11:04) Rash All Systems Review: A 10-system review of systems was performed and is negative for pertinent findings except as documented above in the HPI. - Cardiovascular Cardiovascular: as per HPI, lightheadedness, palpitations, slow heart rate Physical Examination Vital Signs Temperature 97.6 F 01/09/17 06:56 Pulse Rate 87 01/09/17 06:56 Respiratory Rate 15 01/09/17 06:56 Blood Pressure 146/64 01/09/17 06:56 O2 Sat by Pulse Oximetry 98 01/09/17 06:56 Oxygen Delivery Oxygen Delivery Nasal Cannula General: Conversant, No Apparent Distress HEENT: Atraumatic, Normocephaly, Mucus Membranes Moist Neck: No JVD, Normal carotid pulses Cardiac: Reg Rate and Rhythm, Normal S1 and S2, No Murmur Lungs: Other (Lung sounds diminished throughout. ) Neuro: Alert and responsive, No focal deficits noted Abdomen: Soft, Non-Tender Skin: No rashes noted on visualized skin Musculoskeletal: No Chest Wall Tenderness Extremities: No Clubbing, No Cyanosis, Normal Pulses, Other (Mild non-pitting pedal edema. ) Results 01/09/17 03:00 01/09/17 03:00 Lab Results Active Medications Acetaminophen (Tylenol) 650 mg PO Q6HR PRN PRN Reason: Mild Pain (1-3) or fever Stop: 07/08/17 21:21 Acetaminophen (Tylenol) 1,000 mg PO HS [facility] Stop: 07/08/17 22:01 Last Admin: 01/08/17 19:35 Dose: 1,000 mg Albuterol Sulfate (Proventil Neb) 2.5 mg IH [id number] PRN; Protocol PRN Reason: Shortness Of Breath/Wheezing Stop: 07/11/17 10:45 Budesonide/Formoterol Fumarate (Symbicort) 1 puff IH BIDR TIM Stop: 07/08/17 22:01 Last Admin: 01/09/17 10:10 Dose: Not Given Calcium Carbonate (Tums) 500 mg PO BID [facility] Stop: 07/09/17 09:01 Last Admin: 01/09/17 09:24 Dose: 500 mg Cyanocobalamin (Vitamin B12) 1,000 mcg PO DAILY [facility] Stop: 07/09/17 09:01 Last Admin: 01/09/17 09:24 Dose: 1,000 mcg Diphenhydramine HCl (Benadryl) 50 mg PO HS [facility] Stop: 07/08/17 22:01 Last Admin: 01/08/17 19:35 Dose: 50 mg Ferrous Sulfate (Ferrous Sulfate) 325 mg PO DAILY [facility] Stop: 07/10/17 09:01 Last Admin: 01/09/17 09:24 Dose: 325 mg Montelukast Sodium (Singulair) 10 mg PO QPM [facility] Stop: 07/09/17 18:01 Last Admin: 01/08/17 16:45 Dose: 10 mg Naloxone HCl (Narcan) 0.4 mg IVP Q2MIN PRN PRN Reason: Opioid Reversal Stop: 07/08/17 17:53 Ropinirole HCl (Requip) 2 mg PO [facility] Stop: 07/08/17 21:31 Last Admin: 01/08/17 19:36 Dose: 2 mg Sotalol HCl (Betapace) 80 mg PO Q12HR [facility] Stop: 07/11/17 11:09 Tiotropium [place] (Spiriva) 18 mcg IH [facility] PRN Reason: Protocol Stop: 07/08/17 21:31 Last Admin: 01/08/17 21:28 Dose: Not Given Vitamin D (Vitamin D) 1,000 unit PO DAILY [facility] Stop: 07/09/17 09:01 Last Admin: 01/09/17 09:24 Dose: 1,000 unit Warfarin Sodium (Coumadin Perpt) 1 each PO DAILY@1800 PRN PRN Reason: SEE COMMENTS Stop: 07/10/17 18:01 Warfarin Sodium (Coumadin) 5 mg PO DAILY@1800 [facility] Stop: 07/10/17 18:01 Last Admin: 01/08/17 16:45 Dose: 5 mg Laboratory Tests 12/03/16 12/04/16 01/06/17 04:53 09:46 15:28 Hgb Potassium 5.5 H Creatinine 0.99 0.92 2.13 H Magnesium Troponin I TSH 01/06/17 01/07/17 01/07/17 15:28 03:13 03:13 Hgb Potassium Creatinine 2.16 H Magnesium Troponin I 0.02 0.02 TSH 01/07/17 01/08/17 01/09/17 03:13 03:15 03:00 Hgb 9.8 L Potassium Creatinine 1.27 H Magnesium 2.5 Troponin I TSH 1.044 01/09/17 03:00 Hgb Potassium 4.8 H Creatinine 0.86 Magnesium Troponin I TSH - Imaging and Cardiology Chest Xray: report reviewed Echo: report reviewed - EKG Interpretation EKG results cardiology: personally reviewed (ECG on admission noted to be juctional bradycardia with HR 34.), other (Telemetry reviewed with average HR 79 , sinus rhythm. PVCs and PACs noted.) Consult Discharge Plan - Plan Referrals: Lisbet Ray CNP [Primary Care Provider] - 01/16/17 9:30 am
[2017-01-09] MEDS: *HR* Warfarin 5 MG TABLET PO SCH (16:07)
[2017-01-09] MEDS ORDERED: Tetrahydrozoline 15 ML BOTTLE RIGHT EYE PRN (16:26)
[2017-01-09] MEDS ORDERED: Tetrahydrozoline 15 ML BOTTLE LEFT EYE PRN (16:26)
[2017-01-09] MEDS ORDERED: Furosemide 20 MG TABLET PO SCH (17:00)
[2017-01-09] MEDS: Tiotropium 18 MCG inhalation IH SCH (20:11)
[2017-01-09] MEDS: rOPINIRole 1 MG TABLET PO SCH (22:52)
[2017-01-09] MEDS: Acetaminophen 325 MG TABLET PO PRN (22:56)
[2017-01-10] MEDS: Albuterol 2.5 MG/3 ML NEBULIZER IH PRN (04:45)
[2017-01-10 06:11] LABS: Basophils % 0.4 %; Eosinophils # 0.2 K/mcL (0.0-0.6); Eosinophils % 2.9 %; Hematocrit 35.3 % (35.3-44.9); Hemoglobin 10.4 g/dL (11.5-15.4); Immature Granulocytes % 0.4 % (0-4); Lymphocytes # 1.3 K/mcL (0.6-4.6); Lymphocytes % 24.2 %; Mean Corpuscular HGB Conc 29.5 g/dL (31.6-35.5); Mean Corpuscular Hemoglobin 26.3 pg (28.0-33.3); Mean Corpuscular Volume 89.1 fL (83.0-100.0); Mean Platelet Volume 12.4 fL (9.4-12.4); Monocytes # 0.7 K/mcL (0.0-1.3); Monocytes % 13.2 %; Neutrophils # 3.3 K/mcL (1.6-8.9); Platelet Count 171 K/mcL (140-400); Red Blood Count 3.96 M/mcL (3.82-4.97); Segmented Neutrophils % 58.9 %
[2017-01-10 06:13] LABS: INR 1.9; Prothrombin Time 21.1 Seconds (9.4-12.1)
[2017-01-10 06:21] LABS: BUN/Creatinine Ratio 40 (6-26); Blood Urea Nitrogen 35 mg/dL (7-20); Calcium 10.2 mg/dL (8.6-10.8); Carbon Dioxide 30 mEq/L (19-29); Chloride 101 mEq/L (98-109); Glucose 92 mg/dL (70-99); Osmolality,Calculated 296 (280-300); Potassium 4.4 mEq/L (3.5-4.5); Sodium 139 mEq/L (136-145); eGFR For African Americans > 60 (> 60); eGFR For Non-African Americans > 60 (> 60)
--- NOTE | 2017-01-10 06:56 | Internal Med Progress Note ---
<CedricCharlie gonzalez - Last Filed: 01/10/17 06:54> Date of Encounter: 01/10/17 Time of Encounter: 06:54 - Assessment and plan (1) Symptomatic bradycardia Current Visit: Yes Status: Acute Assessment and plan: Resolved at this time. Cardiology following, plan to change sotolol to rythmol today. Will monitor overnight (2) Acute kidney injury Current Visit: Yes Status: Resolved Assessment and plan: Likely related to dehydration in the setting of fluid restriction diet. Resolved at this time. Good urine output. Continue to monitor (3) Heart failure with preserved ejection fraction Current Visit: Yes Status: Chronic Assessment and plan: With mild pedal edema improved for yesterday. Lasix restarted, will increase cautiously and monitor renal function. No respiratory compromise. (4) Atrial fibrillation Current Visit: No Status: Resolved Assessment and plan: Stable, restart meds as directed by cardiology as discussed above. INR 1.9, continue coumadin, pharmacy to dose Qualifiers: Atrial fibrillation type: paroxysmal Qualified Code(s): I48.0 - Paroxysmal atrial fibrillation (5) Hypothyroid Current Visit: Yes Status: Chronic Assessment and plan: Continue Synthroid Qualifiers: Hypothyroidism type: unspecified Qualified Code(s): E03.9 - Hypothyroidism , unspecified (6) Supratherapeutic INR Current Visit: Yes Status: Acute Assessment and plan: Resolved, INR 1.9, continue coumadin, pharmacy to dose (7) Hypotension Current Visit: Yes Status: Resolved Assessment and plan: Due to bradycardia, resolved at this time. Restart home meds as directed by cardiology Qualifiers: Hypotension type: unspecified hypotension type Qualified Code(s): I95.9 - Hypotension, unspecified (8) Hyperkalemia Current Visit: Yes Status: Acute Assessment and plan: Due to TANO, resolved. Continue to monitor - Subjective Interval history: Patient seen and examined bedside. Patient states she feels pretty good today. She reports her lower extremity edema is still present but improved. She denies dizziness, lightheadedness, chest pain, dyspnea, palpitations - Constitutional Vitals: Temp Pulse Resp BP Pulse Ox 97.8 F 99 16 129/57 97 01/10/17 05:43 01/10/17 05:43 01/10/17 05:43 01/10/17 05:43 01/10/17 05:43 General appearance: Present: A&O X 3, morbidly obese, pleasant, no acute distress - Respiratory Respiratory exam: Present: CTAB. Absent: rales, rhonchi, wheezes - Cardiovascular Cardiovascular exam: Present: RRR. Absent: gallop, rubs, systolic murmur - GI/Abdominal GI/Abdominal exam: Present: normal bowel sounds, soft. Absent: distended, tenderness - Extremities Exam Extremities exam: Present: pedal edema (1+) - Neurological Exam Neurological exam: Present: alert, CN II-XII intact, oriented X3, no focal deficits Internal Medicine: Result - Labs CBC & Chem 7: 01/10/17 05:06 01/10/17 05:06 Labs: Short CBC 01/10/17 Range/Units 05:06 WBC 5.5 (4.3-11.1) K/mcL Hgb 10.4 L (11.5-15.4) g/dL Hct 35.3 (35.3-44.9) % Plt Count 171 (140-400) K/mcL Neutrophils # 3.3 (1.6-8.9) K/mcL BMP 01/10/17 05:06 Sodium 139 Potassium 4.4 Chloride 101 Carbon Dioxide 30 H BUN 35 H Creatinine 0.88 Glucose 92 Calcium 10.2 - ABG Interpretation ABG results: PT/INR, D-dimer PT 21.1 Seconds (9.4-12.1) H 01/10/17 05:06 D-Dimer 288 ng/mLFEU (0-500) 01/06/17 15:28 - VTE Reasons for not Prescribing Prophylaxis: Not indicated-Anticoagulated or INR therapeutic Consult Discharge Plan - Plan Referrals: Lisbet Ray CNP [Primary Care Provider] - 01/16/17 9:30 am <Landry Cool - Last Filed: 01/10/17 15:38> Date of Encounter: 01/10/17 - Assessment and plan (1) Atrial fibrillation Current Visit: No Status: Chronic Qualifiers: Atrial fibrillation type: paroxysmal Qualified Code(s): I48.0 - Paroxysmal atrial fibrillation (2) Hypotension Current Visit: Yes Status: Resolved Qualifiers: Hypotension type: hypotension due to drug Qualified Code(s): I95.2 - Hypotension due to drugs (3) Bradycardia Current Visit: Yes Status: Resolved (4) Acute kidney injury Current Visit: Yes Status: Resolved (5) Palpitations Current Visit: Yes Status: Chronic (6) Chronic respiratory failure with hypoxia Current Visit: Yes Status: Chronic (7) BMI 50.0-59.9, adult Current Visit: Yes Status: Chronic (8) COPD (chronic obstructive pulmonary disease) Current Visit: Yes Status: Chronic Qualifiers: COPD type: emphysema Emphysema type: centrilobular Qualified Code(s): J43.2 - Centrilobular emphysema (9) Hypothyroid Current Visit: Yes Status: Chronic Qualifiers: Hypothyroidism type: unspecified Qualified Code(s): E03.9 - Hypothyroidism , unspecified (10) Diastolic CHF Current Visit: No Status: Chronic Qualifiers: Congestive heart failure chronicity: chronic Qualified Code(s): I50.32 - Chronic diastolic (congestive) heart failure (11) Morbid obesity Current Visit: No Status: Chronic Qualifiers: Obesity type: due to excess calories Qualified Code(s): E66.01 - Morbid ( severe) obesity due to excess calories (12) Hypertension Current Visit: No Status: Chronic Qualifiers: Hypertension type: essential hypertension Qualified Code(s): I10 - Essential (primary) hypertension (13) GERD (gastroesophageal reflux disease) Current Visit: No Status: Chronic Qualifiers: Esophagitis presence: without esophagitis Qualified Code(s): K21.9 - Gastro -esophageal reflux disease without esophagitis - Constitutional Vitals: Temp Pulse Resp BP Pulse Ox 98 F 80 16 149/69 97 01/10/17 11:45 01/10/17 11:45 01/10/17 11:45 01/10/17 11:45 01/10/17 11:45 Internal Medicine: Result - Labs CBC & Chem 7: 01/10/17 05:06 01/10/17 05:06 Labs: Short CBC 01/10/17 Range/Units 05:06 WBC 5.5 (4.3-11.1) K/mcL Hgb 10.4 L (11.5-15.4) g/dL Hct 35.3 (35.3-44.9) % Plt Count 171 (140-400) K/mcL Neutrophils # 3.3 (1.6-8.9) K/mcL BMP 01/10/17 05:06 Sodium 139 Potassium 4.4 Chloride 101 Carbon Dioxide 30 H BUN 35 H Creatinine 0.88 Glucose 92 Calcium 10.2 - ABG Interpretation ABG results: PT/INR, D-dimer PT 21.1 Seconds (9.4-12.1) H 01/10/17 05:06 D-Dimer 288 ng/mLFEU (0-500) 01/06/17 15:28 - Attending Attestation I examined this patient and my medical decision-making was reviewed with the Resident Physician on 01/10/17. I agree with the documented findings, disposition and treatment plan as described except to the extent set forth below. Ms. Guevara is currently admitted for severe bradycardia and hypotension related to Sotalol. She remains moderate to high risk due to potential for worsening cardiac issues as she is being started on new antiarhythmic and is at risk for fatal dysrhythmia. Ms. Guevara is feeling OK. She has had one dose of Rhythmol. She thinks it may have caused a headache but is unsure. No fever or chills. No chest pain. Exam Alert. Comfortable Heart irreg - not jin Lungs no wheeze I/P 1. Hypotension 2. Bradycardia Further diagnoses and plan as above. Pt will need to stay in hospital till has received adequate doses of Rhythmol and cleared by cardiology.
[2017-01-10] MEDS: Budesonide/Formoterol 80/4.5 MDI IH SCH ×2 (07:49→20:47)
[2017-01-10] MEDS: Furosemide 20 MG TABLET PO SCH ×2 (08:50→17:40)
[2017-01-10] MEDS: Cholecalciferol (D-3) 1,000 UNIT TABLET PO SCH (08:50)
[2017-01-10] MEDS: Cyanocobalamin (B-12) 1,000 MCG TABLET PO SCH (08:50)
--- NOTE | 2017-01-10 10:20 | Cardiology Progress Note ---
Date of Encounter: 01/10/17 Time of Encounter: 09:00 Assessment and Plan (1) Bradycardia Current Visit: Yes Status: Resolved Per cardiology: -Junctional bradycardia noted per ECG on admission with HR 34. -Patient was symptomatic. -Sotalol and cardizem were stopped. -Patient was placed on dopamine and was in ICU. -Previous 12 hours, average HR noted to be 78. -Bradycardia in the setting of TANO. -Will continue to monitor. (2) Paroxysmal atrial fibrillation Current Visit: Yes Status: Chronic Per cardiology: -KNown paroxysmal atrial fibrillation. -Was on cardizem and sotalol as outpatient. Sotalol was 160mg BID. -[id number] score 3 (age, HTN, and gender). Patient anticoagulated on coumadin. Currently coumadin being managed by pharmacy while inpatient. -Patient admitted with bradycardia in the setting of TANO. -Cardizem and sotalol have been held. -Patient had been followed during admission by general cardiololgy. -Per recommendations from EP/Dr.John Virk, rhythmol 150mg [id number] started this morning. Has received 1 total dose. -ECG today with SR,HR 68. QRS 72ms. -Yap check for rhythmol sent to cardiology office. -Patient will stay inpatient until has at least received 5 total rhythmol doses. -Will check ECG in am. -Will continue to monitor. (3) TANO (acute kidney injury) Current Visit: No Status: Acute Per cardiology: -TANO on admission with creatinine 2.16. -Baseline creatinine 0.8-1. -Creatinine today 0.88. -Suspect may have contributed to bradycardia. -Management per primary service. Discussion w patient/family: The assessment and plan as outlined above was discussed with the patient who expressed understanding and agreement. All questions were answered. Thank you for involving us in the care of your patient. Please call with any questions. Discussed and reviewed with . Subjective Principal diagnosis: Symptomatic bradycardia Interval history: Patient presented to ER with complaints of dizziness and low HR. HR was noted to be in the 30s. Patient was admitted to ICU and was placed on dopamine drip. Sotalol and cardizem were held due to bradycardia. Patient was also noted to have TANO. Creatinine was 2.16. Baseline creatinine 0.8-1. Patient admits to occasional palpitations. Patient states breathing is about baseline. Patient denies issues today. States she is feeling well. Objective Vital Signs, Last 4 Hours Temp Pulse Resp BP Pulse Ox 01/10/17 07:12 97.7 F 75 16 143/63 98 General: Conversant, No Apparent Distress HEENT: Atraumatic, Normocephaly, Mucus Membranes Moist Neck: No JVD, Normal carotid pulses Cardiac: Reg Rate and Rhythm, Normal S1 and S2, No Murmur Lungs: Other (Lung sounds diminished throughout. ) Neuro: Alert and responsive, No focal deficits noted Abdomen: Soft, Non-Tender Skin: No rashes noted on visualized skin Musculoskeletal: No Chest Wall Tenderness Extremities: No Clubbing, No Cyanosis, Normal Pulses, Other (Mild bialteral pedal edema, non-pitting. ) Results 01/10/17 05:06 01/10/17 05:06 Lab Results Current Medications Acetaminophen (Tylenol) 650 mg PO Q6HR PRN PRN Reason: Mild Pain (1-3) or fever Stop: 07/08/17 21:21 Last Admin: 01/09/17 22:56 Dose: 650 mg Albuterol Sulfate (Proventil Neb) 2.5 mg IH [id number] PRN; Protocol PRN Reason: Shortness Of Breath/Wheezing Stop: 07/11/17 10:45 Last Admin: 01/10/17 04:45 Dose: 2.5 mg Budesonide/Formoterol Fumarate (Symbicort) 1 puff IH BIDR TIM Stop: 07/08/17 22:01 Last Admin: 01/10/17 07:49 Dose: Not Given Calcium Carbonate (Tums) 500 mg PO BID TIM Stop: 07/09/17 09:01 Last Admin: 01/10/17 08:50 Dose: 500 mg Cyanocobalamin (Vitamin B12) 1,000 mcg PO DAILY TIM Stop: 07/09/17 09:01 Last Admin: 01/10/17 08:50 Dose: 1,000 mcg Diphenhydramine HCl (Benadryl) 50 mg PO HS PRN PRN Reason: Insomnia Stop: 07/08/17 22:01 Last Admin: 01/09/17 22:57 Dose: 50 mg Ferrous Sulfate (Ferrous Sulfate) 325 mg PO DAILY TIM Stop: 07/10/17 09:01 Last Admin: 01/10/17 08:50 Dose: 325 mg Furosemide (Lasix) 20 mg PO BIDDIURETIC TIM Stop: 07/12/17 06:54 Last Admin: 01/10/17 08:50 Dose: 20 mg Montelukast Sodium (Singulair) 10 mg PO QPM TIM Stop: 07/09/17 18:01 Last Admin: 01/09/17 16:07 Dose: 10 mg Naloxone HCl (Narcan) 0.4 mg IVP Q2MIN PRN PRN Reason: Opioid Reversal Stop: 07/08/17 17:53 Propafenone HCl (Rhythmol) 150 mg PO Q8H [facility] Stop: 07/12/17 06:01 Last Admin: 01/10/17 07:00 Dose: 150 mg Ropinirole HCl (Requip) 2 mg PO HS [facility] Stop: 07/08/17 21:31 Last Admin: 01/09/17 22:52 Dose: 2 mg Tetrahydrozoline HCl (Visine) 1 drop LEFT EYE QID PRN PRN Reason: Itching Stop: 07/11/17 16:27 Last Admin: 01/09/17 17:07 Dose: 1 drop Tetrahydrozoline HCl (Visine) 1 drop RIGHT EYE QID PRN PRN Reason: Itching Stop: 07/11/17 16:27 Tiotropium [place] (Spiriva) 18 mcg IH HS [facility] PRN Reason: Protocol Stop: 07/08/17 21:31 Last Admin: 01/09/17 20:11 Dose: 18 mcg Vitamin D (Vitamin D) 1,000 unit PO DAILY [facility] Stop: 07/09/17 09:01 Last Admin: 01/10/17 08:50 Dose: 1,000 unit Warfarin Sodium (Coumadin Perpt) 1 each PO DAILY@1800 PRN PRN Reason: SEE COMMENTS Stop: 07/10/17 18:01 Warfarin Sodium (Coumadin) 5 mg PO DAILY@1800 TIM Stop: 07/10/17 18:01 Last Admin: 01/09/17 16:07 Dose: 5 mg Laboratory Tests 01/07/17 01/09/17 01/10/17 03:13 03:00 05:06 Hgb INR 2.1 1.9 Potassium Creatinine 2.16 H 01/10/17 01/10/17 05:06 05:06 Hgb 10.4 L INR Potassium 4.4 Creatinine 0.88 - Imaging and Cardiology Chest Xray: report reviewed Echo: report reviewed - EKG Interpretation EKG results cardiology: personally reviewed (ECG today with SR, HR 68. QRS 72.) , other (Telemetry reviewed with average HR 78. PACs and PVCs noted.) - VTE Reasons for not Prescribing Prophylaxis: Not indicated-Anticoagulated or INR therapeutic Consult Discharge Plan - Plan Referrals: Lisbet Ray CNP [Primary Care Provider] - 01/16/17 9:30 am
--- NOTE | 2017-01-10 15:40 | Electrocardiograph Report ---
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
[2017-01-10] MEDS: *HR* Warfarin 5 MG TABLET PO SCH (17:40)
[2017-01-10] MEDS: Tiotropium 18 MCG inhalation IH SCH (20:46)
[2017-01-10] MEDS ORDERED: NON-FORMULARY MEDICATION 1 EACH EACH (Alendronate Sodium [Fosamax] 70 MG) PO SCH (21:20)
[2017-01-10] MEDS: Acetaminophen 325 MG TABLET PO PRN (22:21)
[2017-01-10] MEDS: rOPINIRole 1 MG TABLET PO SCH (22:22)
[2017-01-11 05:14] LABS: INR 1.9; Prothrombin Time 21.3 Seconds (9.4-12.1)
[2017-01-11 05:34] LABS: BUN/Creatinine Ratio 38 (6-26); Blood Urea Nitrogen 35 mg/dL (7-20); Calcium 9.7 mg/dL (8.6-10.8); Carbon Dioxide 30 mEq/L (19-29); Chloride 102 mEq/L (98-109); Glucose 140 mg/dL (70-99); Osmolality,Calculated 302 (280-300); Potassium 4.2 mEq/L (3.5-4.5); Sodium 141 mEq/L (136-145); eGFR For African Americans > 60 (> 60); eGFR For Non-African Americans > 60 (> 60)
[2017-01-11] MEDS: Acetaminophen 325 MG TABLET PO PRN ×2 (06:16→21:56)
--- NOTE | 2017-01-11 09:05 | Cardiology Progress Note ---
Date of Encounter: 01/11/17 Time of Encounter: 08:30 Assessment and Plan (1) Bradycardia Current Visit: Yes Status: Resolved Per cardiology: -Junctional bradycardia noted per ECG on admission with HR 34. -Patient was symptomatic. -Sotalol and cardizem were stopped. -Patient was placed on dopamine and was in ICU. -Previous 12 hours, average HR noted to be 89. -Bradycardia in the setting of TANO. -Will continue to monitor in outpatient setting. (2) Paroxysmal atrial fibrillation Current Visit: Yes Status: Chronic Per cardiology: -KNown paroxysmal atrial fibrillation. -Was on cardizem and sotalol as outpatient. Sotalol was 160mg BID. -[id number] score 3 (age, HTN, and gender). Patient anticoagulated on coumadin. Currently coumadin being managed by pharmacy while inpatient. -Patient admitted with bradycardia in the setting of TANO. -Cardizem and sotalol have been held. -Per recommendations from EP/Dr.John Virk, rhythmol 150mg [id number] started. Patient has received 4 total doses. Patient will received 5th dose of rhythmol at 1400. -ECG today with Sinus rhythm, HR 82. QRS 96ms. Baseline QRS from 01/06/17 noted to be 78. -Yap check for rhythmol not to be $18.51/month. Patient states this is affordable for her. -ECG ordered for 1600. -If QRS less than 117 ms, ok to discharge from cardiology standpoint after ECG at 1600. Communicated with primary team, . -Cardiology will sign off and will follow up in outpatient setting. Follow up set. (3) TANO (acute kidney injury) Current Visit: No Status: Acute Per cardiology: -TANO on admission with creatinine 2.16. -Baseline creatinine 0.8-1. -Creatinine today 0.91. -Suspect may have contributed to bradycardia. -Management per primary service. (4) Hypertension Current Visit: No Status: Chronic Per cardiology: -Known history of HTN. -Patient was hypotensive at admission. -BP now 150-170s systolic. -Will start lisinopril 5mg po daily. -Will continue to monitor in outpatient setting. Qualifiers: Hypertension type: essential hypertension Qualified Code(s): I10 - Essential (primary) hypertension Discussion w patient/family: The assessment and plan as outlined above was discussed with the patient who expressed understanding and agreement. All questions were answered. Thank you for involving us in the care of your patient. Please call with any questions. Discussed and reviewed with . Subjective Principal diagnosis: Symptomatic bradycardia Interval history: Patient presented to ER with complaints of dizziness and low HR. HR was noted to be in the 30s. Patient was admitted to ICU and was placed on dopamine drip. Sotalol and cardizem were held due to bradycardia. Patient was also noted to have TANO. Creatinine was 2.16. Baseline creatinine 0.8-1. Patient admits to occasional palpitations. Patient states breathing is about baseline. Patient states she feels much better and feels she is ready to go home today. Objective Vital Signs, Last 4 Hours Temp Pulse Resp BP Pulse Ox 01/11/17 06:58 97.6 F 81 14 159/61 99 General: Conversant, No Apparent Distress HEENT: Atraumatic, Normocephaly, Mucus Membranes Moist Neck: No JVD, Normal carotid pulses Cardiac: Reg Rate and Rhythm, Normal S1 and S2, No Murmur Lungs: Other (Lung sounds dimished throughout. ) Neuro: Alert and responsive, No focal deficits noted Abdomen: Soft, Non-Tender Skin: No rashes noted on visualized skin Musculoskeletal: No Chest Wall Tenderness Extremities: No Clubbing, No Cyanosis, Normal Pulses, Other (Mild bilateral pedal edema, non-pitting. ) Results 01/10/17 05:06 01/11/17 03:49 Lab Results Active Medications Acetaminophen (Tylenol) 650 mg PO Q6HR PRN PRN Reason: Mild Pain (1-3) or fever Stop: 07/08/17 21:21 Last Admin: 01/11/17 06:16 Dose: 650 mg Albuterol Sulfate (Proventil Neb) 2.5 mg IH [id number] PRN; Protocol PRN Reason: Shortness Of Breath/Wheezing Stop: 07/11/17 10:45 Last Admin: 01/10/17 04:45 Dose: 2.5 mg Budesonide/Formoterol Fumarate (Symbicort) 1 puff IH BIDR [facility] Stop: 07/08/17 22:01 Last Admin: 01/10/17 20:47 Dose: Not Given Calcium Carbonate (Tums) 500 mg PO BID [facility] Stop: 07/09/17 09:01 Last Admin: 01/10/17 22:21 Dose: 500 mg Cyanocobalamin (Vitamin B12) 1,000 mcg PO DAILY TIM Stop: 07/09/17 09:01 Last Admin: 01/10/17 08:50 Dose: 1,000 mcg Diphenhydramine HCl (Benadryl) 50 mg PO HS PRN PRN Reason: Insomnia Stop: 07/08/17 22:01 Last Admin: 01/10/17 22:22 Dose: 50 mg Ferrous Sulfate (Ferrous Sulfate) 325 mg PO DAILY TIM Stop: 07/10/17 09:01 Last Admin: 01/10/17 08:50 Dose: 325 mg Furosemide (Lasix) 20 mg PO BIDDIURETIC TIM Stop: 07/12/17 06:54 Last Admin: 01/10/17 17:40 Dose: 20 mg Lisinopril (Zestril) 5 mg PO DAILY TIM PRN Reason: Protocol Stop: 07/13/17 09:01 Montelukast Sodium (Singulair) 10 mg PO QPM TIM Stop: 07/09/17 18:01 Last Admin: 01/10/17 17:40 Dose: 10 mg Naloxone HCl (Narcan) 0.4 mg IVP Q2MIN PRN PRN Reason: Opioid Reversal Stop: 07/08/17 17:53 Propafenone HCl (Rhythmol) 150 mg PO Q8H [facility] Stop: 07/12/17 06:01 Last Admin: 01/11/17 06:16 Dose: 150 mg Ropinirole HCl (Requip) 2 mg PO HS [facility] Stop: 07/08/17 21:31 Last Admin: 01/10/17 22:22 Dose: 2 mg Tetrahydrozoline HCl (Visine) 1 drop LEFT EYE QID PRN PRN Reason: Itching Stop: 07/11/17 16:27 Last Admin: 01/09/17 17:07 Dose: 1 drop Tetrahydrozoline HCl (Visine) 1 drop RIGHT EYE QID PRN PRN Reason: Itching Stop: 07/11/17 16:27 Tiotropium [place] (Spiriva) 18 mcg IH HS TIM PRN Reason: Protocol Stop: 07/08/17 21:31 Last Admin: 01/10/17 20:46 Dose: 18 mcg Vitamin D (Vitamin D) 1,000 unit PO DAILY TIM Stop: 07/09/17 09:01 Last Admin: 01/10/17 08:50 Dose: 1,000 unit Warfarin Sodium (Coumadin Perpt) 1 each PO DAILY@1800 PRN PRN Reason: SEE COMMENTS Stop: 07/10/17 18:01 Warfarin Sodium (Coumadin) 5 mg PO DAILY@1800 TIM Stop: 07/10/17 18:01 Last Admin: 01/10/17 17:40 Dose: 5 mg Laboratory Tests 01/11/17 01/11/17 03:49 03:49 INR 1.9 Potassium 4.2 Creatinine 0.91 - Imaging and Cardiology Chest Xray: report reviewed Stress Test: report reviewed Echo: report reviewed - EKG Interpretation EKG results cardiology: personally reviewed (ECG today with Sinus rhythm, HR 82. QRS 96ms.), other (Telemetry reviewed with average HR 89, sinus rhythm. PVCs and PACs noted.) - VTE Reasons for not Prescribing Prophylaxis: Not indicated-Anticoagulated or INR therapeutic Consult Discharge Plan - Plan Additional Instructions: Please follow-up with your primary care physician. Please follow up with Dr. Vikr as scheduled. Please restart your home medications as directed. Please decreased your Lasix dose to 20mg twice a day. please return for any new or worsening symptoms. Referrals: Lisbet Ray CNP [Primary Care Provider] - 01/16/17 9:30 am Prescriptions: Propafenone [Rhythmol] 150 mg PO Q8H #90 tablet
[2017-01-11] MEDS: Furosemide 20 MG TABLET PO SCH ×2 (09:09→15:44)
[2017-01-11] MEDS: Cyanocobalamin (B-12) 1,000 MCG TABLET PO SCH (09:10)
[2017-01-11] MEDS: Cholecalciferol (D-3) 1,000 UNIT TABLET PO SCH (09:10)
--- NOTE | 2017-01-11 09:31 | Discharge Summary ---
<Charlie Rose - Last Filed: 01/11/17 09:27> Date of Encounter: 01/11/17 Time of Encounter: 09:27 - Discharge Diagnosis (1) Symptomatic bradycardia Priority: Primary Status: Acute (2) Acute kidney injury Priority: Primary Status: Resolved (3) Heart failure with preserved ejection fraction Priority: Secondary Status: Chronic (4) Atrial fibrillation Priority: Secondary Status: Chronic Qualifiers: Atrial fibrillation type: paroxysmal Qualified Code(s): I48.0 - Paroxysmal atrial fibrillation (5) Hypothyroid Priority: Secondary Status: Chronic Qualifiers: Hypothyroidism type: unspecified Qualified Code(s): E03.9 - Hypothyroidism , unspecified (6) Supratherapeutic INR Priority: Secondary Status: Resolved (7) Hypotension Priority: Secondary Status: Resolved Qualifiers: Hypotension type: unspecified hypotension type Qualified Code(s): I95.9 - Hypotension, unspecified (8) Hyperkalemia Priority: Secondary Status: Acute - Discharge Medications Prescriptions: Propafenone [Rhythmol] 150 mg PO Q8H #90 tablet Home Medications: Alendronate Sodium [Fosamax] 70 mg PO WE 10/28/15 [History] Ascorbate Calcium [Vitamin C] 500 mg PO DAILY 10/28/15 [History] Cholecalciferol (Vitamin D3) [Vitamin D3] 1,000 unit PO DAILY 10/28/15 [History] Cyanocobalamin (Vitamin B-12) [Vitamin B-12] 100 mcg PO DAILY 10/28/15 [History] Tiotropium [Spiriva] 2 puff IH HS 10/28/15 [History] Warfarin [Coumadin] 5 mg PO QPM 10/28/15 [History] Dexlansoprazole [Dexilant] 60 mg PO DAILY 07/03/16 [History] Ferrous Sulfate [Iron] 325 mg PO DAILY 07/03/16 [History] Acetaminophen/Diphenhydramine [Acetaminophen Pm Caplet] 2 tab PO HS 09/09/16 [ History] Albuterol Sulfate [Proventil Hfa] 2 puff IH Q4H PRN 09/14/16 [History] Calcium Carbonate [Calcium] 500 mg PO BID 09/29/16 [History] Oxygen 3 l IH AD 10/24/16 [History] Albuterol Neb [Proventil Neb] 2.5 mg IH Q4H PRN #1 inhsol 11/16/16 [Rx] Fluticasone/Salmeterol [Advair 250-50 Diskus] 1 puff IH BID #1 blst.w.dev [Rx] Montelukast [Singulair] 10 mg PO DAILY 11/29/16 [History] Ropinirole HCl [Requip] 2 mg PO HS 11/29/16 [History] Acetaminophen [Tylenol] 650 mg PO Q6HR PRN #0 tablet 12/04/16 [Rx] Magnesium Oxide [Mag-Ox] 400 mg PO DAILY #30 tablet 12/04/16 [Rx] Potassium Chloride 40 meq PO DAILY #30 tab.er.prt 12/04/16 [Rx] Amlodipine Besylate 2.5 mg PO DAILY 12/26/16 [History] Diltiazem CD (24hr) [Cardizem CD] 180 mg PO DAILY 12/26/16 [History] Olopatadine HCl [Patanol] 1 drop OP BID 12/26/16 [History] Spironolactone [Aldactone] 50 mg PO DAILY 12/26/16 [History] Azithromycin [Azithromycin 6-Tab Pack] 250 mg PO PER PKG DI 01/06/17 [History] Furosemide [Lasix] 20 mg PO BID #60 01/11/17 [Rx] Propafenone [Rhythmol] 150 mg PO Q8H #90 tablet 01/11/17 [Rx] Allergies/Adverse Reactions: Allergies aspirin [ASA] Allergy (Verified 09/29/16 11:04) Difficulty Breathing Penicillins Allergy (Verified 09/29/16 11:04) Hives Sulfa (Sulfonamide Antibiotics) Allergy (Verified 09/29/16 11:04) Rash Procedures/tests Complete & Pending: Procedures Performed prior 72 hours Category Date Time Status ECG 12 lead ECG [ECG] AM 0600 Y 01/11/17 06:00 Ordered ECG 12 lead ECG [ECG] Routine Y 01/10/17 08:00 Completed ECG 12 lead ECG [ECG] Routine Y 01/11/17 16:00 Ordered EKG [ECG 12 lead ECG] [ECG] Stat Y 01/08/17 11:28 Completed Date of admission: 01/06/17 16:56 Primary care physician: Lisbet Ray, Consults: 01/06/17 17:06 Consult to Cardiology [CONS] Routine Comment: Consulting Provider: Cardiology Mora Reason for Consult: Symptomatic bradycardia Call Completed: Yes 01/09/17 08:24 Consult to Electrophysiology (EP) [CONS] Routine Consulting Provider: Electrophysiology Mora Reason for Consult: A-Fib, Sedrick, Sotalol recommendations Call Completed: Yes 01/10/17 06:53 Consult to Occupational Therapy [CONS] Routine Comment: Evaluate, develop and implement POC Reason for Consult: Weakness Consult to Physical Therapy [CONS] Routine Comment: Evaluate, develop and implement POC Reason for Consult: Weakness Discharging clinician: Charlie Rose Anticipated date of discharge: 01/11/17 - Patient Status Disposition: Home, Self-Care Condition: Fair Functional capacity at discharge: independent ambulation Overall status at discharge: patient is progressing back to baseline - Discharge Instructions Follow Up With: Lisbet Ray CNP [Primary Care Provider] - 01/16/17 9:30 am Aj Virk MD [Partnered Physician] - (office will call patient at home with appointment) Additional Instructions: Please follow-up with your primary care physician. Please follow up with Dr. Virk as scheduled. Please restart your home medications as directed. Please decreased your Lasix dose to 20mg twice a day. please return for any new or worsening symptoms. - Diet and Activity Activity: increase activity as tolerated, wear oxygen at all times Diet: low salt diet Interval History: Patient seen and examined at bedside. Patient states that she feels pretty good today. She reports mild lower extremity swelling. She denies shortness of breath. Hospital course: Ms. Guevara is a 66 year old female with history of atrial fibrillation, heart failure was initially admitted to the ICU with symptomatically bradycardia and hypotension. Patient was also found acute kidney injury. It appears that the patient had overdiuresis and became dehydrated which caused toxicity of her sotalol. Patient initially required dopamine for heart rate and blood pressure support. Her acute kidney injury corrected rapidly and her heart rate and blood pressure responded appropriately. Sotalol been formally discontinued by her patient registration rep and the patient has been started on Rythmol. Patient is tolerating this well and will be discharged home with her. Patient will be discharged home in stable condition. - Time Spent with Patient Total time spent providing and/or coordinating discharge services: Greater than 30 minutes - Constitutional Vitals: Temp Pulse Resp BP Pulse Ox 97.6 F 81 14 159/61 98 01/11/17 06:58 01/11/17 06:58 01/11/17 06:58 01/11/17 06:58 01/11/17 09:16 General appearance: Present: A&O X 3, morbidly obese, pleasant, no acute distress - Respiratory Respiratory exam: Present: CTAB. Absent: rales, rhonchi, wheezes - Cardiovascular Cardiovascular exam: Present: RRR. Absent: gallop, rubs, systolic murmur, tachycardia - GI/Abdominal GI/Abdominal exam: Present: normal bowel sounds, soft. Absent: distended, tenderness - Extremities Exam Extremities exam: Present: pedal edema (1+), warm. Absent: tenderness - Neurological Exam Neurological exam: Present: alert, CN II-XII intact, oriented X3, no focal deficits - VTE Reasons for not Prescribing Prophylaxis: Not indicated-Anticoagulated or INR therapeutic <Landry Cool - Last Filed: 01/11/17 16:21> Date of Encounter: 01/11/17 - Discharge Diagnosis (1) Atrial fibrillation Status: Chronic Qualifiers: Atrial fibrillation type: paroxysmal Qualified Code(s): I48.0 - Paroxysmal atrial fibrillation (2) Hypotension Priority: Primary Status: Resolved Qualifiers: Hypotension type: hypotension due to drug Qualified Code(s): I95.2 - Hypotension due to drugs (3) Bradycardia Priority: Primary Status: Resolved (4) Acute kidney injury Status: Resolved (5) Palpitations Priority: Secondary Status: Chronic (6) Chronic respiratory failure with hypoxia Priority: Secondary Status: Chronic (7) BMI 50.0-59.9, adult Priority: Secondary Status: Chronic (8) COPD (chronic obstructive pulmonary disease) Priority: Secondary Status: Chronic Qualifiers: COPD type: emphysema Emphysema type: centrilobular Qualified Code(s): J43.2 - Centrilobular emphysema (9) Hypothyroid Status: Chronic Qualifiers: Hypothyroidism type: unspecified Qualified Code(s): E03.9 - Hypothyroidism , unspecified (10) Diastolic CHF Priority: Secondary Status: Chronic Qualifiers: Congestive heart failure chronicity: chronic Qualified Code(s): I50.32 - Chronic diastolic (congestive) heart failure (11) Morbid obesity Priority: Secondary Status: Chronic Qualifiers: Obesity type: due to excess calories Qualified Code(s): E66.01 - Morbid ( severe) obesity due to excess calories (12) Hypertension Priority: Secondary Status: Chronic Qualifiers: Hypertension type: essential hypertension Qualified Code(s): I10 - Essential (primary) hypertension (13) GERD (gastroesophageal reflux disease) Priority: Secondary Status: Chronic Qualifiers: Esophagitis presence: without esophagitis Qualified Code(s): K21.9 - Gastro -esophageal reflux disease without esophagitis Procedures/tests Complete & Pending: Procedures Performed prior 72 hours Category Date Time Status ECG 12 lead ECG [ECG] AM 0600 Y 01/11/17 06:00 Completed ECG 12 lead ECG [ECG] Routine Y 01/10/17 08:00 Completed ECG 12 lead ECG [ECG] Routine Y 01/11/17 16:00 Ordered Date of admission: 01/06/17 16:56 Primary care physician: Lisbet Ray, Consults: 01/06/17 17:06 Consult to Cardiology [CONS] Routine Comment: Consulting Provider: Cardiology Mora Reason for Consult: Symptomatic bradycardia Call Completed: Yes 01/09/17 08:24 Consult to Electrophysiology (EP) [CONS] Routine Consulting Provider: Electrophysiology Mora Reason for Consult: A-Fib, Sedrick, Sotalol recommendations Call Completed: Yes 01/10/17 06:53 Consult to Occupational Therapy [CONS] Routine Comment: Evaluate, develop and implement POC Reason for Consult: Weakness Consult to Physical Therapy [CONS] Routine Comment: Evaluate, develop and implement POC Reason for Consult: Weakness Hospital course: Ms. Guevara is a 66 year old female - Time Spent with Patient Total time spent providing and/or coordinating discharge services: 39min - Constitutional Vitals: Temp Pulse Resp BP Pulse Ox 98.1 F 91 18 144/66 98 01/11/17 16:04 01/11/17 16:04 01/11/17 11:08 01/11/17 16:04 01/11/17 11:08 - Attending Attestation I examined this patient and my medical decision-making was reviewed with the Resident Physician on 01/11/17. I agree with the documented findings, disposition and treatment plan as described except to the extent set forth below. Ms. Guevara is doing OK. She is tolerating Sotalol. No CP. Some dyspnea. No fever or chills. Vitals are stable. Exam Alert. Comfortable Heart irreg Lungs no wheeze Edema present Plan D/C today after last dose Rhythmol if EKG OK. Diuresis.
[2017-01-11] MEDS: Budesonide/Formoterol 80/4.5 MDI IH SCH ×2 (11:05→20:14)
[2017-01-11] MEDS ORDERED: Furosemide 40 MG/4 ML VIAL IVP ONE (15:06)
[2017-01-11] MEDS: *HR* Warfarin 5 MG TABLET PO SCH (16:09)
--- NOTE | 2017-01-11 16:16 | Electrocardiograph Report ---
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
[2017-01-11] MEDS: Tiotropium 18 MCG inhalation IH SCH (20:14)
[2017-01-11] MEDS: rOPINIRole 1 MG TABLET PO SCH (20:19)
[2017-01-12] MEDS: Budesonide/Formoterol 80/4.5 MDI IH SCH ×2 (07:41→20:01)
[2017-01-12] MEDS: Cholecalciferol (D-3) 1,000 UNIT TABLET PO SCH (08:44)
[2017-01-12] MEDS: Cyanocobalamin (B-12) 1,000 MCG TABLET PO SCH (08:44)
[2017-01-12] MEDS: Furosemide 20 MG TABLET PO SCH ×2 (08:44→16:07)
--- NOTE | 2017-01-12 09:43 | Internal Med Progress Note ---
<MiltonCharlie Chapis - Last Filed: 01/12/17 09:40> Date of Encounter: 01/12/17 Time of Encounter: 09:41 - Assessment and plan (1) Symptomatic bradycardia Current Visit: Yes Status: Resolved Assessment and plan: Resolved at this time. Continue Rythmol. (2) Heart failure with preserved ejection fraction Current Visit: Yes Status: Chronic Assessment and plan: With mild pedal edema improved for yesterday. Lasix restarted, have increased to 40 mg twice a day which the patient states she takes at home. Patient was supposed to be discharged yesterday however she became actually short of breath when getting up and walking to the bathroom and the patient was concerned about her ability to breathe at home. Chest x-ray was obtained which did not show any evidence of pulmonary edema. An extra dose of Lasix was given yesterday afternoon which did not appear to affect her symptoms. I am not convinced that this shortness of breath is related to fluid overload. Patient does have COPD and was participating in pulmonary rehabilitation as an outpatient. We will consult pulmonology (3) Acute kidney injury Current Visit: Yes Status: Resolved Assessment and plan: Likely related to dehydration in the setting of fluid restriction diet. Resolved at this time. Good urine output. Continue to monitor (4) Atrial fibrillation Current Visit: No Status: Chronic Assessment and plan: Stable, restart meds as directed by cardiology as discussed above. INR pending, continue coumadin, pharmacy to dose Qualifiers: Atrial fibrillation type: paroxysmal Qualified Code(s): I48.0 - Paroxysmal atrial fibrillation (5) Hypothyroid Current Visit: Yes Status: Chronic Assessment and plan: Continue Synthroid Qualifiers: Hypothyroidism type: unspecified Qualified Code(s): E03.9 - Hypothyroidism , unspecified (6) Supratherapeutic INR Current Visit: Yes Status: Resolved Assessment and plan: Resolved, INR 1.9 yesterday, pending today, continue coumadin, pharmacy to dose (7) Hypotension Current Visit: Yes Status: Resolved Assessment and plan: Due to bradycardia, resolved at this time. Restart home meds as directed by cardiology Qualifiers: Hypotension type: unspecified hypotension type Qualified Code(s): I95.9 - Hypotension, unspecified (8) Hyperkalemia Current Visit: Yes Status: Acute Assessment and plan: Due to TANO, resolved. Continue to monitor - Subjective Interval history: Patient seen and examined bedside. Patient states she feels okay today. She reports no shortness of breath at rest but reports significant shortness of breath when she does get up and walking to the bathroom. She feels her lower extremity swelling is better. She denies fever, chills, cough, chest pain - Constitutional Vitals: Temp Pulse Resp BP Pulse Ox 98.0 F 82 16 112/52 99 01/12/17 07:06 01/12/17 07:06 01/12/17 07:06 01/12/17 07:06 01/12/17 08:52 General appearance: Present: A&O X 3, morbidly obese, pleasant, no acute distress - Respiratory Respiratory exam: Present: decreased breath sounds. Absent: rales, respiratory distress, rhonchi, wheezes, tachypnea - Cardiovascular Cardiovascular exam: Present: RRR. Absent: gallop, rubs, systolic murmur - GI/Abdominal GI/Abdominal exam: Present: normal bowel sounds. Absent: distended, soft, tenderness - Extremities Exam Extremities exam: Present: pedal edema (1+), warm. Absent: tenderness - Neurological Exam Neurological exam: Present: alert, CN II-XII intact, oriented X3, no focal deficits Internal Medicine: Result - Labs CBC & Chem 7: 01/10/17 05:06 01/11/17 03:49 - ABG Interpretation ABG results: PT/INR, D-dimer PT 21.3 Seconds (9.4-12.1) H 01/11/17 03:49 D-Dimer 288 ng/mLFEU (0-500) 01/06/17 15:28 - Impressions Impressions Chest X-Ray 01/11/17 14:09 IMPRESSION: Minimal scattered areas of atelectasis seen D/ / Eitan Araya MD / Eitan Araya MD Interpreting Provider: Eitan Araya MD - VTE Reasons for not Prescribing Prophylaxis: Not indicated-Anticoagulated or INR therapeutic Consult Discharge Plan - Plan Additional Instructions: Please follow-up with your primary care physician. Please follow up with Dr. Virk as scheduled. Please restart your home medications as directed. Please decreased your Lasix dose to 20mg twice a day. please return for any new or worsening symptoms. Referrals: Lisbet Ray CNP [Primary Care Provider] - 01/16/17 9:30 am Aj Virk MD [Partnered Physician] - (office will call patient at home with appointment) Prescriptions: Propafenone [Rhythmol] 150 mg PO Q8H #90 tablet <Landry Cool - Last Filed: 01/12/17 19:04> Date of Encounter: 01/12/17 - Assessment and plan (1) Dyspnea on exertion Current Visit: Yes Status: Acute (2) Diastolic CHF Current Visit: No Status: Chronic Qualifiers: Congestive heart failure chronicity: acute on chronic Qualified Code(s): I50.33 - Acute on chronic diastolic (congestive) heart failure (3) Atrial fibrillation Current Visit: No Status: Chronic Qualifiers: Atrial fibrillation type: paroxysmal Qualified Code(s): I48.0 - Paroxysmal atrial fibrillation (4) Bradycardia Current Visit: Yes Status: Resolved (5) Acute kidney injury Current Visit: Yes Status: Resolved (6) Palpitations Current Visit: Yes Status: Chronic (7) Chronic respiratory failure with hypoxia Current Visit: Yes Status: Chronic (8) BMI 50.0-59.9, adult Current Visit: Yes Status: Chronic (9) COPD (chronic obstructive pulmonary disease) Current Visit: Yes Status: Chronic Qualifiers: COPD type: emphysema Emphysema type: centrilobular Qualified Code(s): J43.2 - Centrilobular emphysema (10) Hypothyroid Current Visit: Yes Status: Chronic Qualifiers: Hypothyroidism type: unspecified Qualified Code(s): E03.9 - Hypothyroidism , unspecified (11) Morbid obesity Current Visit: No Status: Chronic Qualifiers: Obesity type: due to excess calories Qualified Code(s): E66.01 - Morbid ( severe) obesity due to excess calories (12) Hypertension Current Visit: No Status: Chronic Qualifiers: Hypertension type: essential hypertension Qualified Code(s): I10 - Essential (primary) hypertension (13) GERD (gastroesophageal reflux disease) Current Visit: No Status: Chronic Qualifiers: Esophagitis presence: without esophagitis Qualified Code(s): K21.9 - Gastro -esophageal reflux disease without esophagitis - Constitutional Vitals: Temp Pulse Resp BP Pulse Ox 98.0 F 63 16 134/65 96 01/12/17 15:59 01/12/17 15:59 01/12/17 15:59 01/12/17 15:59 01/12/17 15:59 Internal Medicine: Result - Labs CBC & Chem 7: 01/10/17 05:06 01/11/17 03:49 - ABG Interpretation ABG results: PT/INR, D-dimer PT 21.3 Seconds (9.4-12.1) H 01/11/17 03:49 D-Dimer 288 ng/mLFEU (0-500) 01/06/17 15:28 - Attending Attestation I examined this patient and my medical decision-making was reviewed with the Resident Physician on 01/12/17. I agree with the documented findings, disposition and treatment plan as described except to the extent set forth below. Ms. Guevara is currently admitted for hypotension and bradycardia. She is very dyspneic with movement. She remains moderate risk due to potential for worsening respiratory status. Ms. Guevara is still very dyspneic with walking. No pain. No fever or chills. No GI symptoms. Exam Alert. Comfortable Heart irreg Lungs clear I/P 1. COPD 2. A fi Further diagnoses and plan as above.
--- NOTE | 2017-01-12 11:10 | Pulmonology Consult Note ---
Date of Encounter: 01/12/17 Time of Encounter: 11:10 Assessment and Plan (1) COPD with exacerbation Current Visit: No Status: Acute In addition to continuation of her long-acting inhaled corticosteroid/long- acting beta agonist oral and long acting muscarinic agent I would start oral prednisone 40 mg daily 5 days. Increase frequency of supplemental albuterol treatments to every 2-4 hours as needed. As long as cleared from cardiology standpoint I recommend continuation of pulmonary rehabilitation of the time of discharge. She should also have close follow-up in pulmonary clinic in the next 2-6 weeks (2) Acute on chronic respiratory failure with hypoxemia Current Visit: No Status: Acute Chronic ventilatory failure with significant dyspnea worse at present. I feel like this is multifactorial including mild COPD exacerbation heart failure with notable pulmonary edema and deconditioning while in the hospital. Continue out of bed to chair and ambulation with supervision as tolerated wean FiO2 to keep saturation greater than 80% to 92% (3) Diastolic CHF Current Visit: No Status: Chronic Recommend continued diuresis following daily renal function goal -500-1 L negative Qualifiers: Congestive heart failure chronicity: chronic Qualified Code(s): I50.32 - Chronic diastolic (congestive) heart failure (4) Morbid obesity Current Visit: No Status: Chronic Weight loss encouraged as she is able would also recommend outpatient polysomnogram for high suspicion of underlying obstructive sleep apnea Qualifiers: Obesity type: due to excess calories Qualified Code(s): E66.01 - Morbid ( severe) obesity due to excess calories (5) Atrial fibrillation Current Visit: No Status: Chronic Presently controlled rate controlled and anticoagulated on warfarin defer management of antiarrhythmics or lauren blocking agents to the electrophysiology service Qualifiers: Atrial fibrillation type: paroxysmal Qualified Code(s): I48.0 - Paroxysmal atrial fibrillation (6) DVT prophylaxis Current Visit: No Status: Acute She is therapeutic on warfarin for A. fib History of Present Illness Consult date: 01/12/17 Requesting physician: Landry Cool Reason for consult: COPD Chief complaint: Shortness of breath History of present illness: This 66-year-old patient well-known to me from clinic who is a history of advanced COPD with chronic respiratory failure complicated by heart failure with preserved ejection fraction AFIB morbid obesity concern for undiagnosed obstructive sleep apnea. She was admitted for symptomatic bradycardia in the context TANO with mechanism thought to be increased dose of antiarrhythmic medication for difficult to treat atrial fibrillation. Medication as such been adjusted by the electrophysiological service with improvement in heart rate. Additionally kidney improvement has also been noted. I see patient was getting close to discharge from this problem but has noticed that over the last 24 hours that she has had worsening shortness of breath significant dyspnea when ambulation even from bed to the bathroom. She also has been endorsing wheezing and says that her legs are swelling more. She denies any significant sputum production or cough fevers chills or night sweats From a pulmonary standpoint before this she had not actually been doing relatively well and she begun participating in pulmonary rehabilitation although she says that her exercise capacity was very much reduced Past Med Surg Social Fam HX - Past Medical History Medical history: asthma, atrial fibrillation, CHF, COPD, GERD, hypertension, migraine Psychiatric history: no psych history - Past Surgical History Surgical History: cholecystectomy, hysterectomy - Social History Smoking Status: Former smoker Smokeless Tobacco Status: No Alcohol use: none Drug use: none - Family History Sister Living Status: Hx Family Cardiac Disorders: Yes Hx Family Respiratory Disorders: Yes (copd) Mother Adopted: No Family Member Ethnicity: Non- Twin of Family Member: Yes, Fraternal Living Status: Age at : 83 Cause of : "SEPTIC BECAUSE OF A BED SORE AFTER GALL BLADDER TAKEN OUT" Hx Family Cardiac Disorders: Yes (HTN) Hx Family Respiratory Disorders: No Hx Family Cancer: Yes (Melanoma) Hx Family GI Disorders: Yes (Constipation) Hx Family Endocrine Disorder: No Hx Family Neuromuscular Disorders: No Hx Family Neurologic Disorders: No Hx Family HEENT Disorders: No Hx Family Autoimmune Disorders: No Father Adopted: No Family Member Ethnicity: Non- Twin of Family Member: Yes, Fraternal Living Status: Cause of : "CARDIAC THROMBOSIS" Hx Family Cardiac Disorders: Yes (father, grandfather,self) Hx Family Respiratory Disorders: Yes (self,sister) Hx Family Cancer: No Hx Family GI Disorders: Yes (self) Hx Family Endocrine Disorder: No Hx Family Neuromuscular Disorders: No Hx Family Neurologic Disorders: No Hx Family HEENT Disorders: No Hx Family Autoimmune Disorders: No Medications and Allergies Alendronate Sodium [Fosamax] 70 mg PO WE 10/28/15 [History] Ascorbate Calcium [Vitamin C] 500 mg PO DAILY 10/28/15 [History] Cholecalciferol (Vitamin D3) [Vitamin D3] 1,000 unit PO DAILY 10/28/15 [History] Cyanocobalamin (Vitamin B-12) [Vitamin B-12] 100 mcg PO DAILY 10/28/15 [History] Tiotropium [Spiriva] 2 puff IH HS 10/28/15 [History] Warfarin [Coumadin] 5 mg PO QPM 10/28/15 [History] Dexlansoprazole [Dexilant] 60 mg PO DAILY 07/03/16 [History] Ferrous Sulfate [Iron] 325 mg PO DAILY 07/03/16 [History] Acetaminophen/Diphenhydramine [Acetaminophen Pm Caplet] 2 tab PO HS 09/09/16 [ History] Albuterol Sulfate [Proventil Hfa] 2 puff IH Q4H PRN 09/14/16 [History] Calcium Carbonate [Calcium] 500 mg PO BID 09/29/16 [History] Oxygen 3 l IH AD 10/24/16 [History] Albuterol Neb [Proventil Neb] 2.5 mg IH Q4H PRN #1 inhsol 11/16/16 [Rx] Fluticasone/Salmeterol [Advair 250-50 Diskus] 1 puff IH BID #1 blst.w.dev [Rx] Montelukast [Singulair] 10 mg PO DAILY 11/29/16 [History] Ropinirole HCl [Requip] 2 mg PO HS 11/29/16 [History] Acetaminophen [Tylenol] 650 mg PO Q6HR PRN #0 tablet 12/04/16 [Rx] Magnesium Oxide [Mag-Ox] 400 mg PO DAILY #30 tablet 12/04/16 [Rx] Potassium Chloride 40 meq PO DAILY #30 tab.er.prt 12/04/16 [Rx] Amlodipine Besylate 2.5 mg PO DAILY 12/26/16 [History] Diltiazem CD (24hr) [Cardizem CD] 180 mg PO DAILY 12/26/16 [History] Olopatadine HCl [Patanol] 1 drop OP BID 12/26/16 [History] Spironolactone [Aldactone] 50 mg PO DAILY 12/26/16 [History] Azithromycin [Azithromycin 6-Tab Pack] 250 mg PO PER PKG DI 01/06/17 [History] Furosemide [Lasix] 20 mg PO BID #60 01/11/17 [Rx] Propafenone [Rhythmol] 150 mg PO Q8H #90 tablet 01/11/17 [Rx] Allergies aspirin [ASA] Allergy (Verified 09/29/16 11:04) Difficulty Breathing Penicillins Allergy (Verified 09/29/16 11:04) Hives Sulfa (Sulfonamide Antibiotics) Allergy (Verified 09/29/16 11:04) Rash All Systems: A 10-system review of systems was performed and is negative for pertinent findings except as documented above in the HPI. Physical Examination Vital Signs: Vital Signs, Last 4 Hours Pulse Ox 01/12/17 08:52 99 General appearance: no acute distress ENT: oropharynx moist Neck: supple Effort: mildly labored Auscultation: bilateral: diminished breath sounds, wheezes, rales Cardiovascular: irregular rhythm Gastrointestinal: normoactive bowel sounds, non-tender Integumentary: normal Extremities: edema (1+ bilateral symmetric lower extremity edema) Musculoskeletal: no deformities normal mental status, non-focal exam mood appropriate Results - Laboratory Findings CBC and BMP: 01/10/17 05:06 01/11/17 03:49 PT/INR, D-dimer PT 21.3 Seconds (9.4-12.1) H 01/11/17 03:49 D-Dimer 288 ng/mLFEU (0-500) 01/06/17 15:28 Abnormal lab findings: Abnormal lab results Hgb 10.4 g/dL (11.5-15.4) L 01/10/17 05:06 MCH 26.3 pg (28.0-33.3) L 01/10/17 05:06 MCHC 29.5 g/dL (31.6-35.5) L 01/10/17 05:06 RDW 15.0 % (11.5-14.5) H 01/10/17 05:06 Immature Plt Fraction 7.9 % (1.1-6.1) H 01/08/17 03:15 PT 21.3 Seconds (9.4-12.1) H 01/11/17 03:49 APTT 39.6 Seconds (26.0-36.0) H 01/06/17 15:28 Carbon Dioxide 30 mEq/L (19-29) H 01/11/17 03:49 BUN 35 mg/dL (7-20) H 01/11/17 03:49 BUN/Creatinine Ratio 38 (6-26) H 01/11/17 03:49 Glucose 140 mg/dL (70-99) H 01/11/17 03:49 Calculated Osmolality 302 (280-300) H 01/11/17 03:49 B-Natriuretic Peptide 104 pg/mL (0-100) H 01/06/17 15:28 Albumin 3.3 g/dL (3.5-5.0) L 01/06/17 15:28 Albumin/Globulin Ratio 1.0 (1.1-2.2) L 01/06/17 15:28 - Diagnostic Findings Chest x-ray: image reviewed - Clinical Findings Intake & Output: Intake & Output 01/11/17 01/12/17 01/12/17 23:59 07:59 15:59 Intake Total 120 / 120 620 / 620 Balance 120 / 120 620 / 620 Weight 142.8 kg Consult Discharge Plan - Plan Additional Instructions: Please follow-up with your primary care physician. Please follow up with Dr. Virk as scheduled. Please restart your home medications as directed. Please decreased your Lasix dose to 20mg twice a day. please return for any new or worsening symptoms. Referrals: Lisbet Ray CNP [Primary Care Provider] - 01/16/17 9:30 am Aj Virk MD [Partnered Physician] - (office will call patient at home with appointment) Prescriptions: Propafenone [Rhythmol] 150 mg PO Q8H #90 tablet
[2017-01-12] MEDS: Albuterol 2.5 MG/3 ML NEBULIZER IH PRN (14:15)
[2017-01-12] MEDS: *HR* Warfarin 5 MG TABLET PO SCH (18:33)
[2017-01-12] MEDS: Tiotropium 18 MCG inhalation IH SCH (20:01)
[2017-01-12] MEDS: rOPINIRole 1 MG TABLET PO SCH (21:29)
[2017-01-12] MEDS: Acetaminophen 325 MG TABLET PO PRN (22:37)
[2017-01-13 05:20] LABS: INR 2.6; Prothrombin Time 28.5 Seconds (9.4-12.1)
[2017-01-13 05:27] LABS: BUN/Creatinine Ratio 41 (6-26); Blood Urea Nitrogen 40 mg/dL (7-20); Calcium 9.5 mg/dL (8.6-10.8); Carbon Dioxide 30 mEq/L (19-29); Chloride 99 mEq/L (98-109); Glucose 96 mg/dL (70-99); Osmolality,Calculated 294 (280-300); Potassium 4.2 mEq/L (3.5-4.5); Sodium 137 mEq/L (136-145); eGFR For African Americans > 60 (> 60); eGFR For Non-African Americans 56 (> 60)
[2017-01-13] MEDS: Furosemide 20 MG TABLET PO SCH ×2 (06:07→17:05)
--- NOTE | 2017-01-13 08:56 | Electrocardiograph Report ---
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
--- NOTE | 2017-01-13 09:05 | Electrocardiograph Report ---
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
--- NOTE | 2017-01-13 09:18 | Pulmonology Progress Note ---
Date of Encounter: 01/13/17 Time of Encounter: 11:18 Assessment and Plan (1) COPD with exacerbation Current Visit: No Status: Acute 58-year-old long-standing heart failure preserved ejection fraction is we will treat atrial fibrillation COPD chronic respiratory failure on home oxygen suspected obstructive sleep apnea presented with bradycardia secondary to acute kidney injury with increased dose of antiarrhythmic medication Has had worsening dyspnea over the course of her stay which is multifactorial including cardiogenic pulmonary edema along with likely mild COPD exacerbation I have added oral prednisone to her regimen today which can be continued to complete a 5 day burst Increase frequency of bronchodilators Continue scheduled metered-dose inhalers Wean oxygen to keep FiO2 around 89-92% Outpatient pulmonary follow-up including polysomnogram recommended Continue diuresis per primary team along with blood pressure control She is therapeutic on home dose of warfarin Please call with any questions (2) Acute on chronic respiratory failure with hypoxemia Current Visit: No Status: Acute (3) Diastolic CHF Current Visit: No Status: Chronic Qualifiers: Congestive heart failure chronicity: acute on chronic Qualified Code(s): I50.33 - Acute on chronic diastolic (congestive) heart failure (4) Morbid obesity Current Visit: No Status: Chronic Qualifiers: Obesity type: due to excess calories Qualified Code(s): E66.01 - Morbid ( severe) obesity due to excess calories (5) Atrial fibrillation Current Visit: No Status: Chronic Qualifiers: Atrial fibrillation type: paroxysmal Qualified Code(s): I48.0 - Paroxysmal atrial fibrillation (6) DVT prophylaxis Current Visit: No Status: Acute Subjective Principal diagnosis: Symptomatic bradycardia Interval history: She says that her breathing is about the same may be slightly better as she is undergone additional diuresis. Unfortunately she did not receive yesterday's dose of steroid Objective PUL Vital signs: Last Vital Signs Temp 97.6 F 01/13/17 06:58 Pulse 92 01/13/17 06:58 Resp 16 01/13/17 06:58 BP 121/54 01/13/17 06:58 Pulse Ox 98 01/13/17 06:58 General appearance: no acute distress Eyes: nonicteric Neck: supple Auscultation: bilateral: diminished breath sounds, wheezes Cardiovascular: regular rate and rhythm Extremities: edema Results - Laboratory Findings CBC and BMP: 01/10/17 05:06 01/13/17 05:08 PT/INR, D-dimer PT 28.5 Seconds (9.4-12.1) H 01/13/17 05:08 D-Dimer 288 ng/mLFEU (0-500) 01/06/17 15:28 Abnormal lab findings: Abnormal lab results Hgb 10.4 g/dL (11.5-15.4) L 01/10/17 05:06 MCH 26.3 pg (28.0-33.3) L 01/10/17 05:06 MCHC 29.5 g/dL (31.6-35.5) L 01/10/17 05:06 RDW 15.0 % (11.5-14.5) H 01/10/17 05:06 Immature Plt Fraction 7.9 % (1.1-6.1) H 01/08/17 03:15 PT 28.5 Seconds (9.4-12.1) H 01/13/17 05:08 APTT 39.6 Seconds (26.0-36.0) H 01/06/17 15:28 Carbon Dioxide 30 mEq/L (19-29) H 01/13/17 05:08 BUN 40 mg/dL (7-20) H 01/13/17 05:08 Est GFR (Non-Af Amer) 56 (> 60) L 01/13/17 05:08 BUN/Creatinine Ratio 41 (6-26) H 01/13/17 05:08 B-Natriuretic Peptide 104 pg/mL (0-100) H 01/06/17 15:28 Albumin 3.3 g/dL (3.5-5.0) L 01/06/17 15:28 Albumin/Globulin Ratio 1.0 (1.1-2.2) L 01/06/17 15:28 - Clinical Findings Intake & Output: Intake & Output 01/12/17 01/13/17 01/13/17 23:59 07:59 15:59 Weight 145 kg - VTE Reasons for not Prescribing Prophylaxis: Not indicated-Anticoagulated or INR therapeutic Consult Discharge Plan - Plan Additional Instructions: Please follow-up with your primary care physician. Please follow up with Dr. Virk as scheduled. Please restart your home medications as directed. Please decreased your Lasix dose to 20mg twice a day. please return for any new or worsening symptoms. Referrals: Lisbet Ray, CLINICAL RN MANAGER [Primary Care Provider] - 01/16/17 9:30 am Aj Virk MD [Partnered Physician] - (office will call patient at home with appointment) Prescriptions: Propafenone [Rhythmol] 150 mg PO Q8H #90 tablet
[2017-01-13] MEDS: Cholecalciferol (D-3) 1,000 UNIT TABLET PO SCH (10:16)
[2017-01-13] MEDS: Cyanocobalamin (B-12) 1,000 MCG TABLET PO SCH (10:16)
[2017-01-13] MEDS: Budesonide/Formoterol 80/4.5 MDI IH SCH ×2 (11:25→20:15)
[2017-01-13] MEDS: predniSONE 20 MG TABLET PO SCH (14:01)
[2017-01-13] MEDS: Acetaminophen 325 MG TABLET PO PRN ×2 (14:06→23:42)
--- NOTE | 2017-01-13 15:46 | Cardiology Progress Note ---
Date of Encounter: 01/13/17 Time of Encounter: 15:00 Assessment and Plan (1) Bradycardia Current Visit: Yes Status: Resolved Per cardiology: -Junctional bradycardia noted per ECG on admission with HR 34. -Patient was symptomatic. -Sotalol and cardizem were stopped. Has resolved. 12 hour tele: avg HR=90 SR. No PAF, event, pause, or AVB noted. (2) Paroxysmal atrial fibrillation Current Visit: Yes Status: Chronic Per cardiology: -Known paroxysmal atrial fibrillation; cardizem and sotalol (160 mg BID) d/c'ed upon admission for symptomatic bradycardia. -[id number] score 3 (age, HTN, and gender). Patient anticoagulated on coumadin. Currently coumadin being managed by pharmacy while inpatient. Rythmol started on 01/10/17--has maintained NSR with PAF. Telemetry reviewed over the past 24 hours, no recurrence of PAF noted. Avg HR overnight=90 SR. ECG this AM: HR 92 QRS 95 QT/QTc 346, 396 Patient reports headache that occurs daily, lasts only seconds. Doubt related to Rythmol and discomfort only lasts seconds. Will defer further mgmt to primary service. Discussion w patient/family: The assessment and plan as outlined above was discussed with the patient and/or family members who expressed understanding and agreement. All questions were answered. Thank you for involving us in the care of your patient. Please call with any questions. The patient was discussed and reviewed with Dr. Obrien who agrees with plan as stated above. No further Cardiology recommendations. Subjective Principal diagnosis: Symptomatic bradycardia Interval history: Seen and examined. Complains of poor activity tolerance and generalized weakness. Patient/ frustrated that HR are in the 90's--SR. Pulm following for COPD. Objective General: Conversant, No Apparent Distress HEENT: Atraumatic, Normocephaly, Mucus Membranes Moist Cardiac: Reg Rate and Rhythm, Normal S1 and S2 Lungs: Normal Breath Sounds Neuro: Alert and responsive Abdomen: Soft Skin: No rashes noted on visualized skin Musculoskeletal: No Chest Wall Tenderness Extremities: No Edema, Normal Pulses Results 01/10/17 05:06 01/13/17 05:08 Lab Results 01/13/17 01/13/17 05:08 05:08 INR 2.6 Sodium 137 Potassium 4.2 Chloride 99 Carbon Dioxide 30 H BUN 40 H Creatinine 0.98 Glucose 96 Calcium 9.5 Active Medications Acetaminophen (Tylenol) 650 mg PO Q6HR PRN PRN Reason: Mild Pain (1-3) or fever Stop: 07/08/17 21:21 Last Admin: 01/13/17 14:06 Dose: 650 mg Albuterol Sulfate (Proventil Neb) 2.5 mg IH [id number] PRN; Protocol PRN Reason: Shortness Of Breath/Wheezing Stop: 07/11/17 10:45 Last Admin: 01/12/17 14:15 Dose: 2.5 mg Budesonide/Formoterol Fumarate (Symbicort) 1 puff IH BIDR TIM Stop: 07/08/17 22:01 Last Admin: 01/13/17 11:25 Dose: Not Given Calcium Carbonate (Tums) 500 mg PO BID TIM Stop: 07/09/17 09:01 Last Admin: 01/13/17 10:16 Dose: 500 mg Calcium Carbonate (Tums) 500 mg PO TID PRN; Protocol PRN Reason: Heartburn Stop: 07/13/17 22:31 Cyanocobalamin (Vitamin B12) 1,000 mcg PO DAILY TIM Stop: 07/09/17 09:01 Last Admin: 01/13/17 10:16 Dose: 1,000 mcg Diphenhydramine HCl (Benadryl) 50 mg PO HS PRN PRN Reason: Insomnia Stop: 07/08/17 22:01 Last Admin: 01/12/17 22:36 Dose: 50 mg Ferrous Sulfate (Ferrous Sulfate) 325 mg PO DAILY TIM Stop: 07/10/17 09:01 Last Admin: 01/13/17 10:16 Dose: 325 mg Furosemide (Lasix) 40 mg PO BIDDIURETIC TIM Stop: 07/14/17 09:11 Last Admin: 01/13/17 06:07 Dose: 40 mg Lisinopril (Zestril) 5 mg PO DAILY TIM PRN Reason: Protocol Stop: 07/13/17 09:01 Last Admin: 01/13/17 10:16 Dose: 5 mg Montelukast Sodium (Singulair) 10 mg PO QPM TIM Stop: 07/09/17 18:01 Last Admin: 01/12/17 18:33 Dose: 10 mg Naloxone HCl (Narcan) 0.4 mg IVP Q2MIN PRN PRN Reason: Opioid Reversal Stop: 07/08/17 17:53 Omeprazole (Prilosec) 40 mg PO DAILY@0730 [facility] PRN Reason: Protocol Stop: 07/13/17 22:01 Last Admin: 01/13/17 06:08 Dose: 40 mg Prednisone (Prednisone) 40 mg PO DAILY [facility] Stop: 07/15/17 11:31 Last Admin: 01/13/17 14:01 Dose: 40 mg Propafenone HCl (Rhythmol) 150 mg PO Q8H [facility] Stop: 07/12/17 06:01 Last Admin: 01/13/17 14:01 Dose: 150 mg Ropinirole HCl (Requip) 2 mg PO HS [facility] Stop: 07/08/17 21:31 Last Admin: 01/12/17 21:29 Dose: 2 mg Tetrahydrozoline HCl (Visine) 1 drop LEFT EYE QID PRN PRN Reason: Itching Stop: 07/11/17 16:27 Last Admin: 01/09/17 17:07 Dose: 1 drop Tetrahydrozoline HCl (Visine) 1 drop RIGHT EYE QID PRN PRN Reason: Itching Stop: 07/11/17 16:27 Tiotropium [place] (Spiriva) 18 mcg IH HS [facility] PRN Reason: Protocol Stop: 07/08/17 21:31 Last Admin: 01/12/17 20:01 Dose: 18 mcg Vitamin D (Vitamin D) 1,000 unit PO DAILY [facility] Stop: 07/09/17 09:01 Last Admin: 01/13/17 10:16 Dose: 1,000 unit Warfarin Sodium (Coumadin Perpt) 1 each PO DAILY@1800 PRN PRN Reason: SEE COMMENTS Stop: 07/10/17 18:01 Warfarin Sodium (Coumadin) 5 mg PO DAILY@1800 [facility] Stop: 07/10/17 18:01 Last Admin: 01/12/17 18:33 Dose: 5 mg - EKG Interpretation EKG results cardiology: personally reviewed - VTE Reasons for not Prescribing Prophylaxis: Not indicated-Anticoagulated or INR therapeutic Consult Discharge Plan - Plan Additional Instructions: Please follow-up with your primary care physician. Please follow up with Dr. Virk as scheduled. Please restart your home medications as directed. Please decreased your Lasix dose to 20mg twice a day. please return for any new or worsening symptoms. Referrals: Lisbet Ray CNP [Primary Care Provider] - 01/16/17 9:30 am Aj Virk MD [Partnered Physician] - (office will call patient at home with appointment) Prescriptions: Propafenone [Rhythmol] 150 mg PO Q8H #90 tablet
--- NOTE | 2017-01-13 17:01 | Internal Med Progress Note ---
Date of Encounter: 01/13/17 Time of Encounter: 11:30 - Assessment and plan (1) Dyspnea on exertion Current Visit: Yes Status: Acute Assessment and plan: She continues to have issues with dyspnea. Feels some palpitations. Most likely is becoming "dry" from diuresis as well. Lasix decreased. (2) Diastolic CHF Current Visit: No Status: Chronic Assessment and plan: Decrease Lasix dose. Monitor overnight. Qualifiers: Congestive heart failure chronicity: acute on chronic Qualified Code(s): I50.33 - Acute on chronic diastolic (congestive) heart failure (3) Atrial fibrillation Current Visit: No Status: Chronic Assessment and plan: On Rhythmol. Appreciate cardiology help. Now in sinus rhythm. Qualifiers: Atrial fibrillation type: paroxysmal Qualified Code(s): I48.0 - Paroxysmal atrial fibrillation (4) Palpitations Current Visit: Yes Status: Chronic Assessment and plan: Persists but she is not tachycardic overall. (5) Chronic respiratory failure with hypoxia Current Visit: Yes Status: Chronic Assessment and plan: Supportive care. (6) BMI 50.0-59.9, adult Current Visit: Yes Status: Chronic Assessment and plan: Supportive care. (7) COPD (chronic obstructive pulmonary disease) Current Visit: Yes Status: Chronic Assessment and plan: Appreciate pulm input. Qualifiers: COPD type: emphysema Emphysema type: centrilobular Qualified Code(s): J43.2 - Centrilobular emphysema (8) Hypothyroid Current Visit: Yes Status: Chronic Assessment and plan: Continue Synthroid Qualifiers: Hypothyroidism type: unspecified Qualified Code(s): E03.9 - Hypothyroidism , unspecified (9) Morbid obesity Current Visit: No Status: Chronic Assessment and plan: Supportive care. Qualifiers: Obesity type: due to excess calories Qualified Code(s): E66.01 - Morbid ( severe) obesity due to excess calories (10) Hypertension Current Visit: No Status: Chronic Assessment and plan: Controlled. Qualifiers: Hypertension type: essential hypertension Qualified Code(s): I10 - Essential (primary) hypertension (11) GERD (gastroesophageal reflux disease) Current Visit: No Status: Chronic Assessment and plan: Chronic condition Qualifiers: Esophagitis presence: without esophagitis Qualified Code(s): K21.9 - Gastro -esophageal reflux disease without esophagitis - Subjective Interval history: Ms. Guevara is currently admitted for hypotension and bradycardia due to medication and TANO. She remains moderate to high risk due to potential for worsening cardiac status. Ms. Guevara is still having some palpitations and headache. No CP. Dyspnea about the same. No abd symptoms. Edema seems to be somewhat better. - Constitutional Vitals: Temp Pulse Resp BP Pulse Ox 97.9 F 91 16 131/57 98 01/13/17 10:59 01/13/17 10:59 01/13/17 10:59 01/13/17 10:59 01/13/17 10:59 General appearance: Present: A&O X 3, morbidly obese, pleasant, no acute distress - Head Head exam: Present: normocephalic - Eye Eye exam: Present: conjuntiva pink - ENT ENT exam: Present: mucous membranes moist - Respiratory Respiratory exam: Present: decreased breath sounds, CTAB - Cardiovascular Cardiovascular exam: Present: RRR. Absent: tachycardia - GI/Abdominal GI/Abdominal exam: Present: soft. Absent: tenderness - Extremities Exam Extremities exam: Present: pedal edema, warm. Absent: tenderness - Neurological Exam Neurological exam: Present: alert, oriented X3 - Psychiatric Psychiatric exam: Present: normal affect, normal mood Internal Medicine: Result - Labs CBC & Chem 7: 01/10/17 05:06 01/13/17 05:08 Labs: BMP 01/13/17 05:08 Sodium 137 Potassium 4.2 Chloride 99 Carbon Dioxide 30 H BUN 40 H Creatinine 0.98 Glucose 96 Calcium 9.5 - ABG Interpretation ABG results: PT/INR, D-dimer PT 28.5 Seconds (9.4-12.1) H 01/13/17 05:08 D-Dimer 288 ng/mLFEU (0-500) 01/06/17 15:28 - VTE Reasons for not Prescribing Prophylaxis: Not indicated-Anticoagulated or INR therapeutic Consult Discharge Plan - Plan Additional Instructions: Please follow-up with your primary care physician. Please follow up with Dr. Virk as scheduled. Please restart your home medications as directed. Please decreased your Lasix dose to 20mg twice a day. please return for any new or worsening symptoms. Referrals: Lisbet Ray CNP [Primary Care Provider] - 01/16/17 9:30 am Aj Virk MD [Partnered Physician] - (office will call patient at home with appointment) Prescriptions: Propafenone [Rhythmol] 150 mg PO Q8H #90 tablet
[2017-01-13] MEDS: *HR* Warfarin 5 MG TABLET PO SCH (17:05)
[2017-01-13] MEDS: Tiotropium 18 MCG inhalation IH SCH (20:14)
[2017-01-13] MEDS: rOPINIRole 1 MG TABLET PO SCH (22:15)
[2017-01-14 04:35] LABS: Hematocrit 34.3 % (35.3-44.9); Mean Corpuscular HGB Conc 29.2 g/dL (31.6-35.5); Mean Corpuscular Hemoglobin 26.2 pg (28.0-33.3); Platelet Count 194 K/mcL (140-400); Red Blood Count 3.81 M/mcL (3.82-4.97); Red Cell Distribution Width 15.4 % (11.5-14.5)
[2017-01-14 04:38] LABS: INR 2.9; Prothrombin Time 32.5 Seconds (9.4-12.1)
[2017-01-14 04:45] LABS: BUN/Creatinine Ratio 40 (6-26); Blood Urea Nitrogen 40 mg/dL (7-20); Calcium 9.1 mg/dL (8.6-10.8); Carbon Dioxide 32 mEq/L (19-29); Chloride 99 mEq/L (98-109); Glucose 123 mg/dL (70-99); Magnesium 1.9 mg/dL (1.6-2.6); Osmolality,Calculated 299 (280-300); Potassium 4.6 mEq/L (3.5-4.5); Sodium 139 mEq/L (136-145); eGFR For African Americans > 60 (> 60); eGFR For Non-African Americans 55 (> 60)
[2017-01-14] MEDS: Budesonide/Formoterol 80/4.5 MDI IH SCH ×2 (07:49→21:23)
--- NOTE | 2017-01-14 08:06 | Event Note ---
Date of Encounter: 01/14/17 Time of Encounter: 08:05 Overall patient continues to improve continue oral steroids would reinforce the need for scheduled bronchodilators and clearly would continue to benefit from ongoing diuresis for heart failure with preserved ejection fraction. She will need outpatient pulmonary follow-up including evaluation for obstructive sleep apnea Pulmonary we will sign off thank you for the consultation please call with any questions or should or if clinical course should change
[2017-01-14] MEDS: Cyanocobalamin (B-12) 1,000 MCG TABLET PO SCH (09:23)
[2017-01-14] MEDS: predniSONE 20 MG TABLET PO SCH (09:23)
[2017-01-14] MEDS: Cholecalciferol (D-3) 1,000 UNIT TABLET PO SCH (09:23)
[2017-01-14] MEDS: Furosemide 20 MG TABLET PO SCH ×2 (09:23→17:29)
[2017-01-14] MEDS: Albuterol 2.5 MG/3 ML NEBULIZER IH PRN ×3 (11:12→21:15)
--- NOTE | 2017-01-14 19:02 | Internal Med Progress Note ---
Date of Encounter: 01/14/17 Time of Encounter: 19:00 - Assessment and plan (1) Dyspnea on exertion Current Visit: Yes Status: Acute Assessment and plan: Dyspnea persists. Nothing much has helped. She still feels she is tachycardic. Will ask cardiology to give input again. (2) Diastolic CHF Current Visit: No Status: Chronic Assessment and plan: Continuing diuresis as able. Qualifiers: Congestive heart failure chronicity: acute on chronic Qualified Code(s): I50.33 - Acute on chronic diastolic (congestive) heart failure (3) Atrial fibrillation Current Visit: No Status: Chronic Assessment and plan: Currently on rhythmol. Will ask cardiology for input on rate. Qualifiers: Atrial fibrillation type: paroxysmal Qualified Code(s): I48.0 - Paroxysmal atrial fibrillation (4) Palpitations Current Visit: Yes Status: Chronic Assessment and plan: Continues to have palpitations. (5) Chronic respiratory failure with hypoxia Current Visit: Yes Status: Chronic Assessment and plan: Supportive care. (6) BMI 50.0-59.9, adult Current Visit: Yes Status: Chronic Assessment and plan: Supportive care. (7) COPD (chronic obstructive pulmonary disease) Current Visit: Yes Status: Chronic Assessment and plan: Appreciate pulm input. Qualifiers: COPD type: emphysema Emphysema type: centrilobular Qualified Code(s): J43.2 - Centrilobular emphysema (8) Hypothyroid Current Visit: Yes Status: Chronic Assessment and plan: Continue Synthroid Qualifiers: Hypothyroidism type: unspecified Qualified Code(s): E03.9 - Hypothyroidism , unspecified (9) Morbid obesity Current Visit: No Status: Chronic Assessment and plan: Diet and lifestyle modifications. Qualifiers: Obesity type: due to excess calories Qualified Code(s): E66.01 - Morbid ( severe) obesity due to excess calories (10) Hypertension Current Visit: No Status: Chronic Assessment and plan: Controlled. Qualifiers: Hypertension type: essential hypertension Qualified Code(s): I10 - Essential (primary) hypertension (11) GERD (gastroesophageal reflux disease) Current Visit: No Status: Chronic Assessment and plan: Chronic condition Qualifiers: Esophagitis presence: without esophagitis Qualified Code(s): K21.9 - Gastro -esophageal reflux disease without esophagitis - Subjective Interval history: Ms. Guevara is currently admitted for hypotension and bradycardia due to medication and TANO. She remains moderate to high risk due to potential for worsening cardiac status. Ms. Guevara overall is about the same. No new issues. She is still having dyspnea walking across the room. No CP. Nothing much has helped. Still feels her heart rate is elevated. No fever. No GI symptoms. - Constitutional Vitals: Temp Pulse Resp BP Pulse Ox 98.3 F 100 16 156/72 98 01/14/17 15:31 01/14/17 15:31 01/14/17 15:41 01/14/17 15:31 01/14/17 15:41 General appearance: Present: A&O X 3, morbidly obese, pleasant - Head Head exam: Present: normocephalic - Eye Eye exam: Present: conjuntiva pink - ENT ENT exam: Present: mucous membranes moist - Respiratory Respiratory exam: Present: decreased breath sounds, CTAB. Absent: rhonchi, wheezes - Cardiovascular Cardiovascular exam: Present: RRR. Absent: tachycardia - GI/Abdominal GI/Abdominal exam: Present: soft. Absent: tenderness - Extremities Exam Extremities exam: Present: pedal edema, warm. Absent: tenderness - Neurological Exam Neurological exam: Present: alert, oriented X3 - Psychiatric Psychiatric exam: Present: normal affect, normal mood Internal Medicine: Result - Labs CBC & Chem 7: 01/14/17 04:00 01/14/17 04:00 Labs: Short CBC 01/14/17 Range/Units 04:00 WBC 6.5 (4.3-11.1) K/mcL Hgb 10.0 L (11.5-15.4) g/dL Hct 34.3 L (35.3-44.9) % Plt Count 194 (140-400) K/mcL BMP 01/14/17 04:00 Sodium 139 Potassium 4.6 H Chloride 99 Carbon Dioxide 32 H BUN 40 H Creatinine 1.00 Glucose 123 H Calcium 9.1 - ABG Interpretation ABG results: PT/INR, D-dimer PT 32.5 Seconds (9.4-12.1) H 01/14/17 04:00 D-Dimer 288 ng/mLFEU (0-500) 01/06/17 15:28 - VTE Reasons for not Prescribing Prophylaxis: Not indicated-Anticoagulated or INR therapeutic Consult Discharge Plan - Plan Additional Instructions: Please follow-up with your primary care physician. Please follow up with Dr. Virk as scheduled. Please restart your home medications as directed. Please decreased your Lasix dose to 20mg twice a day. please return for any new or worsening symptoms. Referrals: Lisbet Ray CNP [Primary Care Provider] - 01/16/17 9:30 am Aj Virk MD [Partnered Physician] - (office will call patient at home with appointment) Prescriptions: Propafenone [Rhythmol] 150 mg PO Q8H #90 tablet
[2017-01-14] MEDS: rOPINIRole 1 MG TABLET PO SCH (19:55)
[2017-01-14] MEDS: Tiotropium 18 MCG inhalation IH SCH (21:14)
[2017-01-14] MEDS: Acetaminophen 325 MG TABLET PO PRN (23:43)
[2017-01-15 03:44] LABS: INR 2.6; Prothrombin Time 28.6 Seconds (9.4-12.1)
[2017-01-15] MEDS: predniSONE 20 MG TABLET PO SCH (08:09)
[2017-01-15] MEDS: Furosemide 20 MG TABLET PO SCH ×2 (08:09→18:09)
[2017-01-15] MEDS: Cholecalciferol (D-3) 1,000 UNIT TABLET PO SCH (08:09)
[2017-01-15] MEDS: Cyanocobalamin (B-12) 1,000 MCG TABLET PO SCH (08:10)
--- NOTE | 2017-01-15 09:38 | Electrocardiograph Report ---
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
[2017-01-15] MEDS: Albuterol 2.5 MG/3 ML NEBULIZER IH PRN ×2 (11:17→19:49)
[2017-01-15] MEDS: Budesonide/Formoterol 80/4.5 MDI IH SCH ×2 (11:17→19:48)
--- NOTE | 2017-01-15 16:11 | Internal Med Progress Note ---
<Homer Ramsay - Last Filed: 01/15/17 16:02> Date of Encounter: 01/15/17 Time of Encounter: 16:03 - Assessment and plan (1) Atrial fibrillation Current Visit: No Status: Chronic Assessment and plan: Currently on rhythmol, occasional tachycardia above 100, will start cardizem 30 mg Q6hrs, if HR controlled overnight, will switch to long acting, currently on coumadin for chronic AC therapy. Qualifiers: Atrial fibrillation type: paroxysmal Qualified Code(s): I48.0 - Paroxysmal atrial fibrillation (2) COPD with exacerbation Current Visit: No Status: Acute Assessment and plan: Clinically improving, con't symbicort, oxygen support, po steroid and spiriva. (3) Morbid obesity Current Visit: No Status: Chronic Assessment and plan: Diet and lifestyle modifications. Qualifiers: Obesity type: due to excess calories Qualified Code(s): E66.01 - Morbid ( severe) obesity due to excess calories (4) Heart failure with preserved ejection fraction Current Visit: Yes Status: Chronic Assessment and plan: echo reviewed, dyspnea improved, con't lasix PO. (5) DVT prophylaxis Current Visit: No Status: Acute Assessment and plan: Coumadin. - Subjective Interval history: Pt seen and examined, she states that occasional palpitation but no chest pain and her SOB improved. - Constitutional Vitals: Temp Pulse Resp BP Pulse Ox 98.1 F 93 16 145/57 98 01/15/17 15:21 01/15/17 15:21 01/15/17 15:21 01/15/17 15:21 01/15/17 15:21 General appearance: Present: A&O X 3, morbidly obese, pleasant, no acute distress - Respiratory Respiratory exam: Present: decreased breath sounds (diffusely b/l). Absent: rales, rhonchi, wheezes - Cardiovascular Cardiovascular exam: Present: RRR, +S1, +S2. Absent: gallop, rubs, systolic murmur - GI/Abdominal GI/Abdominal exam: Present: normal bowel sounds, soft. Absent: distended, firm , guarding, rebound, rigid, tenderness - Extremities Exam Extremities exam: Present: warm, radial pulses palpable and symetrical. Absent : calf tenderness, tenderness Internal Medicine: Result - Labs CBC & Chem 7: 01/14/17 04:00 01/14/17 04:00 - ABG Interpretation ABG results: PT/INR, D-dimer PT 28.6 Seconds (9.4-12.1) H 01/15/17 03:27 D-Dimer 288 ng/mLFEU (0-500) 01/06/17 15:28 - VTE Reasons for not Prescribing Prophylaxis: Not indicated-Anticoagulated or INR therapeutic Consult Discharge Plan - Plan Additional Instructions: Please follow-up with your primary care physician. Please follow up with Dr. Virk as scheduled. Please restart your home medications as directed. Please decreased your Lasix dose to 20mg twice a day. please return for any new or worsening symptoms. Referrals: Lisbet Ray CNP [Primary Care Provider] - 01/16/17 9:30 am Aj Virk MD [Partnered Physician] - (office will call patient at home with appointment) Prescriptions: Propafenone [Rhythmol] 150 mg PO Q8H #90 tablet <Landry Cool - Last Filed: 01/15/17 19:14> Date of Encounter: 01/15/17 - Assessment and plan (1) Dyspnea on exertion Current Visit: Yes Status: Acute (2) Diastolic CHF Current Visit: No Status: Chronic Qualifiers: Congestive heart failure chronicity: acute on chronic Qualified Code(s): I50.33 - Acute on chronic diastolic (congestive) heart failure (3) Atrial fibrillation Current Visit: No Status: Chronic Qualifiers: Atrial fibrillation type: paroxysmal Qualified Code(s): I48.0 - Paroxysmal atrial fibrillation (4) Palpitations Current Visit: Yes Status: Chronic (5) Chronic respiratory failure with hypoxia Current Visit: Yes Status: Chronic (6) BMI 50.0-59.9, adult Current Visit: Yes Status: Chronic (7) COPD (chronic obstructive pulmonary disease) Current Visit: Yes Status: Chronic Qualifiers: COPD type: emphysema Emphysema type: centrilobular Qualified Code(s): J43.2 - Centrilobular emphysema (8) Hypothyroid Current Visit: Yes Status: Chronic Qualifiers: Hypothyroidism type: unspecified Qualified Code(s): E03.9 - Hypothyroidism , unspecified (9) Morbid obesity Current Visit: No Status: Chronic Qualifiers: Obesity type: due to excess calories Qualified Code(s): E66.01 - Morbid ( severe) obesity due to excess calories (10) Hypertension Current Visit: No Status: Chronic Qualifiers: Hypertension type: essential hypertension Qualified Code(s): I10 - Essential (primary) hypertension (11) GERD (gastroesophageal reflux disease) Current Visit: No Status: Chronic Qualifiers: Esophagitis presence: without esophagitis Qualified Code(s): K21.9 - Gastro -esophageal reflux disease without esophagitis - Constitutional Vitals: Temp Pulse Resp BP Pulse Ox 98.1 F 85 16 132/54 98 01/15/17 15:21 01/15/17 18:11 01/15/17 15:21 01/15/17 18:11 01/15/17 15:21 Internal Medicine: Result - Labs CBC & Chem 7: 01/14/17 04:00 01/14/17 04:00 - ABG Interpretation ABG results: PT/INR, D-dimer PT 28.6 Seconds (9.4-12.1) H 01/15/17 03:27 D-Dimer 288 ng/mLFEU (0-500) 01/06/17 15:28 - Attending Attestation I examined this patient and my medical decision-making was reviewed with the Resident Physician on 01/15/17. I agree with the documented findings, disposition and treatment plan as described except to the extent set forth below. Ms. Guevara is currently admitted for acute bradycardia and hypotension. Meds have been adjusted and added today. She is high risk due to potential for recurrent bradycardia. Ms. Guevara feels the same and is still complaining of tachycardia and dyspnea with exertion. She denies pain. No fever. No GI symptoms. Exam Alert. Comfortable Heart reg - not tachy now No wheeze Less edema I/P 1. Palpitations 2. PAF D/W cardiology, will start low dose Cardizem - short acting for now. Further diagnoses and plan as above.
[2017-01-15] MEDS ORDERED: *HR* Warfarin 2.5 MG TABLET PO ONE (18:00)
[2017-01-15] MEDS: Tiotropium 18 MCG inhalation IH SCH (19:48)
[2017-01-15] MEDS: rOPINIRole 1 MG TABLET PO SCH (20:09)
[2017-01-15] MEDS: Acetaminophen 325 MG TABLET PO PRN (23:15)
[2017-01-16 06:10] LABS: INR 2.1; Prothrombin Time 23.4 Seconds (9.4-12.1)
[2017-01-16 06:22] LABS: BUN/Creatinine Ratio 45 (6-26); Blood Urea Nitrogen 44 mg/dL (7-20); Calcium 8.7 mg/dL (8.6-10.8); Carbon Dioxide 35 mEq/L (19-29); Chloride 101 mEq/L (98-109); Glucose 109 mg/dL (70-99); Osmolality,Calculated 302 (280-300); Potassium 3.8 mEq/L (3.5-4.5); Sodium 140 mEq/L (136-145); eGFR For African Americans > 60 (> 60); eGFR For Non-African Americans 57 (> 60)
[2017-01-16] MEDS: Budesonide/Formoterol 80/4.5 MDI IH SCH (08:09)
[2017-01-16] MEDS ORDERED: Diltiazem CD (24hr) 120 MG CAPSULE PO SCH (09:15)
--- NOTE | 2017-01-16 09:44 | Discharge Summary ---
Date of Encounter: 01/16/17 Time of Encounter: 09:00 - Discharge Diagnosis (1) Hypotension Priority: Primary Status: Resolved Qualifiers: Hypotension type: hypotension due to drug Qualified Code(s): I95.2 - Hypotension due to drugs (2) Bradycardia Priority: Primary Status: Resolved (3) Acute kidney injury Priority: Primary Status: Resolved (4) Hyperkalemia Priority: Secondary Status: Resolved (5) Dyspnea on exertion Priority: Secondary Status: Resolved (6) Diastolic CHF Priority: Secondary Status: Chronic Qualifiers: Congestive heart failure chronicity: acute on chronic Qualified Code(s): I50.33 - Acute on chronic diastolic (congestive) heart failure (7) Atrial fibrillation Priority: Primary Status: Chronic Qualifiers: Atrial fibrillation type: paroxysmal Qualified Code(s): I48.0 - Paroxysmal atrial fibrillation (8) Palpitations Priority: Secondary Status: Chronic (9) Chronic respiratory failure with hypoxia Priority: Secondary Status: Chronic (10) BMI 50.0-59.9, adult Priority: Secondary Status: Chronic (11) COPD (chronic obstructive pulmonary disease) Priority: Secondary Status: Chronic Qualifiers: COPD type: emphysema Emphysema type: centrilobular Qualified Code(s): J43.2 - Centrilobular emphysema (12) Hypothyroid Priority: Secondary Status: Chronic Qualifiers: Hypothyroidism type: unspecified Qualified Code(s): E03.9 - Hypothyroidism , unspecified (13) Morbid obesity Priority: Secondary Status: Chronic Qualifiers: Obesity type: due to excess calories Qualified Code(s): E66.01 - Morbid ( severe) obesity due to excess calories (14) Hypertension Priority: Secondary Status: Chronic Qualifiers: Hypertension type: essential hypertension Qualified Code(s): I10 - Essential (primary) hypertension (15) GERD (gastroesophageal reflux disease) Priority: Secondary Status: Chronic Qualifiers: Esophagitis presence: without esophagitis Qualified Code(s): K21.9 - Gastro -esophageal reflux disease without esophagitis - Discharge Medications Prescriptions: Diltiazem CD (24hr) [Cardizem CD] 120 mg PO DAILY #30 cap.er.24h predniSONE [PredniSONE] 40 mg PO DAILY #1 tablet Propafenone [Rhythmol] 150 mg PO Q8H #90 tablet Home Medications: Alendronate Sodium [Fosamax] 70 mg PO WE 10/28/15 [History] Ascorbate Calcium [Vitamin C] 500 mg PO DAILY 10/28/15 [History] Cholecalciferol (Vitamin D3) [Vitamin D3] 1,000 unit PO DAILY 10/28/15 [History] Cyanocobalamin (Vitamin B-12) [Vitamin B-12] 100 mcg PO DAILY 10/28/15 [History] Tiotropium [Spiriva] 2 puff IH HS 10/28/15 [History] Warfarin [Coumadin] 5 mg PO QPM 10/28/15 [History] Dexlansoprazole [Dexilant] 60 mg PO DAILY 07/03/16 [History] Ferrous Sulfate [Iron] 325 mg PO DAILY 07/03/16 [History] Acetaminophen/Diphenhydramine [Acetaminophen Pm Caplet] 2 tab PO HS 09/09/16 [ History] Albuterol Sulfate [Proventil Hfa] 2 puff IH Q4H PRN 09/14/16 [History] Calcium Carbonate [Calcium] 500 mg PO BID 09/29/16 [History] Oxygen 3 l IH AD 10/24/16 [History] Albuterol Neb [Proventil Neb] 2.5 mg IH Q4H PRN #1 inhsol 11/16/16 [Rx] Fluticasone/Salmeterol [Advair 250-50 Diskus] 1 puff IH BID #1 blst.w.dev [Rx] Montelukast [Singulair] 10 mg PO DAILY 11/29/16 [History] Ropinirole HCl [Requip] 2 mg PO HS 11/29/16 [History] Acetaminophen [Tylenol] 650 mg PO Q6HR PRN #0 tablet 12/04/16 [Rx] Magnesium Oxide [Mag-Ox] 400 mg PO DAILY #30 tablet 12/04/16 [Rx] Olopatadine HCl [Patanol] 1 drop OP BID 12/26/16 [History] Spironolactone [Aldactone] 50 mg PO DAILY 12/26/16 [History] Furosemide [Lasix] 20 mg PO BID #60 01/11/17 [Rx] Propafenone [Rhythmol] 150 mg PO Q8H #90 tablet 01/11/17 [Rx] Diltiazem CD (24hr) [Cardizem CD] 120 mg PO DAILY #30 cap.er.24h 01/16/17 [Rx] predniSONE [PredniSONE] 40 mg PO DAILY #1 tablet 01/16/17 [Rx] Allergies/Adverse Reactions: Allergies aspirin [ASA] Allergy (Verified 09/29/16 11:04) Difficulty Breathing Penicillins Allergy (Verified 09/29/16 11:04) Hives Sulfa (Sulfonamide Antibiotics) Allergy (Verified 09/29/16 11:04) Rash Procedures/tests Complete & Pending: Procedures Performed prior 72 hours Category Date Time Status ECG 12 lead ECG [ECG] Routine Y 01/13/17 10:46 Completed Date of admission: 01/06/17 16:56 Primary care physician: Lisbet Ray, Consults: 01/06/17 17:06 Consult to Cardiology [CONS] Routine Comment: Consulting Provider: [facility] [place] Reason for Consult: Symptomatic bradycardia Call Completed: Yes 01/09/17 08:24 Consult to Electrophysiology (EP) [CONS] Routine Consulting Provider: Electrophys[facility] [place] Reason for Consult: A-Fib, [place], Sotalol recommendations Call Completed: Yes 01/10/17 06:53 Consult to Occupational Therapy [CONS] Routine Comment: Evaluate, develop and implement POC Reason for Consult: Weakness Consult to Physical Therapy [CONS] Routine Comment: Evaluate, develop and implement POC Reason for Consult: Weakness 01/12/17 09:09 Consult to Pulmonology [CONS] Routine Consulting Provider: [facility] [place] Reason for Consult: Dyspnea on exertion Call Completed: Yes Discharging clinician: Landry Cool Anticipated date of discharge: 01/16/17 - Patient Status Disposition: Home, Self-Care Condition: Fair Functional capacity at discharge: uses cane/walker Overall status at discharge: patient is progressing back to baseline - Discharge Instructions Follow Up With: Lisbet Ray CNP [Primary Care Provider] - 01/16/17 9:30 am Aj Virk MD [Partnered Physician] - (office will call patient at home with appointment) Additional Instructions: Please follow-up with your primary care physician. Please follow up with Dr. Virk as scheduled. Please restart your home medications as directed. Please decreased your Lasix dose to 20mg twice a day. please return for any new or worsening symptoms. - Diet and Activity Activity: resume usual activities as tolerated Diet: advance to your usual diet Hospital course: Ms. Guevara is a 66 year old female with hx of chronic diastolic heart failure, PAF and COPD presented to ED with weakness and fatigue. She takes diuretic and has fluid restriction. She was found to be in acute renal failure and was profoundly bradycardic and hypotensive. She was admitted to ICU. Ms. Guevara was admitted to ICU. Her Sotalol and other rate controlling meds were held. She had slow improvement in her rate and BP and she was hemodynamically stable. She was transferred to [facility] from ICU and started on Rhythmol for a fib. She was monitored at the start and tolerated OK. She began to complain of increasing dyspnea and diuretics were increased with improvement. She was also seen by pulmonology and given 5 days of Prednisone. She began complaining of significant palpitations and was worried her heart rate was increasing. She was reevaluated by cardiology and her average heart rate was not above 100. On 01/15 she continued to complain of palpitations and presumed tachycardia. At that time she was started on short acting Cardizem. She tolerated this well with improvement in her overall heart rate. At that time she was discharged home. At the time of discharge she was afebrile and vitals were stable. - Time Spent with Patient Total time spent providing and/or coordinating discharge services: 42min - Constitutional Vitals: Temp Pulse Resp BP Pulse Ox 97.8 F 75 15 152/56 97 01/16/17 07:01 01/16/17 07:01 01/16/17 07:01 01/16/17 07:01 01/16/17 07:01 General appearance: Present: A&O X 3, morbidly obese, pleasant - Head Head exam: Present: normocephalic - Eye Eye exam: Present: EOMI, conjuntiva pink - ENT ENT exam: Present: mucous membranes moist - Respiratory Respiratory exam: Present: decreased breath sounds, CTAB - Cardiovascular Cardiovascular exam: Present: RRR. Absent: tachycardia - GI/Abdominal GI/Abdominal exam: Present: soft. Absent: tenderness - Extremities Exam Extremities exam: Present: warm. Absent: joint swelling, tenderness - Neurological Exam Neurological exam: Present: alert, oriented X3 - Psychiatric Psychiatric exam: Present: normal affect, normal mood - VTE Reasons for not Prescribing Prophylaxis: Not indicated-Anticoagulated or INR therapeutic
[2017-01-16] MEDS: predniSONE 20 MG TABLET PO SCH (10:30)
[2017-01-16] MEDS: Cholecalciferol (D-3) 1,000 UNIT TABLET PO SCH (10:31)
[2017-01-16] MEDS: Cyanocobalamin (B-12) 1,000 MCG TABLET PO SCH (10:31)
[2017-01-16] MEDS: Furosemide 20 MG TABLET PO SCH ×2 (10:32→18:51)
[2017-01-16 16:11] VITALS: BP 157/76
[2017-01-16] MEDS ORDERED: *HR* Warfarin 5 MG TABLET PO ONE (18:00)
[2017-01-16] MEDS ORDERED: Aminoglycoside Consult 1 EACH MC ONE (20:13)
== END 2017-01-16 20:14 | disposition home or self-care (01) | DRG 308 ==
LOC: EMEROO 15:07 → SUATTDRO 16:56 → ICNU 16:56 → 2NENU 01-08 14:20
PROVIDERS: ADMIT Nurse Practitioner Family; ATTEND Internal Medicine

== ENCOUNTER 2017-05-08 13:28 | Observation (INO) ==
[2017-05-08] MEDS ORDERED: Ipratropium/Albuterol Neb 3 ML IH ONE (13:58)
--- NOTE | 2017-05-08 14:04 | Emergency Department Note ---
Disposition Clinical Impression: Acute exacerbation of chronic obstructive airways disease Disposition: Admitted As Inpatient Condition: Fair Referrals: Lisbet Ray DIETITIAN CHIEF [Primary Care Provider] - Forms: ED Satisfaction Letter Time of Disposition: 15:47 SOB HPI - General Chief Complaint: ED Shortness of Breath/Dyspnea Stated Complaint: Edema Legs /feet ,ESTEFANI Time Seen by Provider: 05/08/17 13:50 Source: patient Mode of arrival: ambulatory Limitations: no limitations Nursing Notes Reviewed: Yes Vital Signs Reviewed: Yes - History of Present Illness 66-year-old history CHF and COPD comes in with increasing shortness of breath and lower extremity edema. Pt Subjective Complaint: shortness of breath Onset (ago): hour(s) Severity: moderate Consistency/Duration: constant Improves with: nothing Worsens with: exertion Known history of: COPD, congestive heart failure Associated symptoms: Reports: wheezing, sense of impending doom Treatment prior to arrival: diuretics Cough present: No - Related Data Home Medications Medication Instructions Recorded Confirmed Alendronate Sodium [Fosamax] 70 mg PO WE 10/28/15 01/06/17 Ascorbate Calcium [Vitamin C] 500 mg PO DAILY 10/28/15 01/06/17 Cholecalciferol (Vitamin D3) 1,000 unit PO DAILY 10/28/15 01/06/17 [Vitamin D3] Cyanocobalamin (Vitamin B-12) 100 mcg PO DAILY 10/28/15 01/06/17 [Vitamin B-12] Tiotropium [Spiriva] 2 puff IH HS 10/28/15 01/06/17 Warfarin [Coumadin] 5 mg PO QPM 10/28/15 01/06/17 Dexlansoprazole [Dexilant] 60 mg PO DAILY 07/03/16 01/06/17 Ferrous Sulfate [Iron] 325 mg PO DAILY 07/03/16 01/06/17 Acetaminophen/Diphenhydramine 2 tab PO HS 09/09/16 01/06/17 [Acetaminophen Pm Caplet] Albuterol Sulfate [Proventil Hfa] 2 puff IH Q4H PRN 09/14/16 01/06/17 Calcium Carbonate [Calcium] 500 mg PO BID 09/29/16 01/06/17 Oxygen 3 l IH AD 10/24/16 01/06/17 Montelukast [Singulair] 10 mg PO DAILY 11/29/16 01/06/17 Ropinirole HCl [Requip] 2 mg PO HS 11/29/16 01/06/17 Olopatadine HCl [Patanol] 1 drop OP BID 12/26/16 01/06/17 Spironolactone [Aldactone] 50 mg PO DAILY 12/26/16 01/06/17 Previous Rx's Medication Instructions Recorded Albuterol Neb [Proventil Neb] 2.5 mg IH Q4H PRN #1 inhsol 11/16/16 Fluticasone/Salmeterol [Advair 1 puff IH BID #1 blst.w.dev 11/16/16 250-50 Diskus] Acetaminophen [Tylenol] 650 mg PO Q6HR PRN #0 tablet 12/04/16 Magnesium Oxide [Mag-Ox] 400 mg PO DAILY #30 tablet 12/04/16 Furosemide [Lasix] 20 mg PO BID #60 01/11/17 Propafenone [Rhythmol] 150 mg PO Q8H #90 tablet 01/11/17 Diltiazem CD (24hr) [Cardizem CD] 120 mg PO DAILY #30 cap.er.24h 01/16/17 predniSONE [PredniSONE] 40 mg PO DAILY #1 tablet 01/16/17 Allergies Allergy/AdvReac Type Severity Reaction Status Date / Time aspirin [ASA] Allergy Difficulty Verified 09/29/16 11:04 Breathing Penicillins Allergy Hives Verified 09/29/16 11:04 Sulfa (Sulfonamide Allergy Rash Verified 09/29/16 11:04 Antibiotics) All systems ED: reviewed and negative except as stated. Constitutional: Denies: fever, chills, weakness, weight change Eyes: Denies: eye pain, eye discharge, vision change ENT ED: Denies: ear pain, throat pain, dental pain, hearing loss, epistaxis, congestion, dysphagia Cardiovascular: Denies: chest pain, palpitations, dyspnea on exertion, edema, syncope Respiratory: Reports: dyspnea, wheezes. Denies: cough, hemoptysis, stridor Gastrointestinal: Denies: abdominal pain, nausea, vomiting, diarrhea, constipation, hematemesis, melena, hematochezia Genitourinary: Denies: dysuria, frequency, hematuria, discharge Musculoskeletal: Reports: other (Peripheral edema). Denies: back pain, neck pain, arthralgia, myalgia Integumentary: Denies: rash, abrasion, lesions Neurological: Denies: headache, weakness, numbness, paresthesias, confusion, abnormal gait, vertigo Psychiatric: Denies: anxiety, depression, suicidal thoughts, homicidal thoughts , auditory hallucinations, visual hallucinations Endocrine: Denies: fatigue Hematological/Lymphatic: Denies: easy bleeding, easy bruising Allergic/Immunologic: Denies: facial swelling, urticaria Past Medical History - Past Medical History Medical history: Reports: asthma, atrial fibrillation, CHF, COPD, GERD, hypertension, migraine Surgical history: Reports: cholecystectomy, hysterectomy Psychiatric history: Reports: no psych history SAFETY ADMINISTRATOR history: Reports: no SAFETY ADMINISTRATOR history - Social History Smoking Status: Former smoker Smokeless Tobacco Status: No Alcohol use: Reports: none Drug use: Reports: none Physical Exam - General Limitations: no limitations General appearance: alert - Head Head exam: atraumatic, normocephalic, normal inspection - Eye Eye exam: Present: normal appearance, PERRL, EOMI - ENT ENT exam: normal exam, normal oropharynx, mucous membranes moist - Neck Neck exam: Present: normal inspection, full ROM, trachea midline - Chest Chest inspection: Present: normal inspection, symmetric chest wall rise - Respiratory Respiratory exam: Present: wheezes, accessory muscle use, prolonged expiratory phase - Cardiovascular Cardiovascular exam: Present: regular rate, normal rhythm, normal heart sounds - Abdominal Exam Abdominal exam: Present: soft, Non-Tender. Absent: tenderness, distention, guarding, rebound, rigidity - Extremities Exam Extremities exam: Present: normal inspection, full ROM. Absent: tenderness, pedal edema - Expanded Lower Extremity Exam Neurovascular/Tendon exam: Absent: motor deficit, sensory deficit, tendon deficit Gait: not tested/not observed - Back Exam Back exam: Present: normal inspection, full ROM. Absent: tenderness - Neurological Exam Neurological exam: Present: alert, oriented X3. Absent: motor sensory deficit - Psychiatric Psychiatric exam: Present: normal affect, normal mood - Skin Skin exam: Present: warm, dry, intact, normal color Course - Reevaluation(s) Reevaluation #1: 66-year-old with CHF COPD comes in complaining of increasing shortness of breath with wheezes and exertional dyspnea. Workup included a chest x-ray that showed evidence of interstitial edema versus volume overload. Her BNP however is negative. Patient was treated with Lasix and breathing treatment continues to have exertional dyspnea will be admitted for evaluation. Time: 15:47 - Consultations Consultation #1: Discussed with Dr. Rivera, admit Time: 15:46 Vital Signs Temperature 98.0 F 05/08/17 13:40 Pulse Rate 85 05/08/17 13:40 Respiratory Rate 20 05/08/17 13:40 Blood Pressure 123/62 05/08/17 13:40 O2 Sat by Pulse Oximetry 96 05/08/17 13:40 Temperature 98.0 F 05/08/17 13:40 Pulse Rate 77 05/08/17 14:39 Respiratory Rate 16 05/08/17 14:39 Blood Pressure 154/76 05/08/17 14:39 O2 Sat by Pulse Oximetry 95 05/08/17 14:39 Oxygen Delivery Oxygen Delivery Nasal Cannula Shortness of Breath/Dyspnea - Lab Data Lab results reviewed: Yes I reviewed the patient's lab results. Result diagrams: 05/08/17 14:06 05/08/17 14:06 Lab Results 05/08/17 05/08/17 05/08/17 Range/Units 14:06 14:06 14:06 WBC 6.8 (4.3-11.1) K/mcL RBC 4.08 (3.82-4.97) M/mcL Hgb 10.1 L (11.5-15.4) g/dL Hct 34.9 L (35.3-44.9) % MCV 85.5 (83.0-100.0) fL MCH 24.8 L (28.0-33.3) pg MCHC 28.9 L (31.6-35.5) g/dL RDW 14.6 H (11.5-14.5) % Plt Count 203 (140-400) K/mcL MPV 11.0 (9.4-12.4) fL Immature Gran % 1.0 (0-4) % Seg Neutrophils % 67.3 % Lymphocytes % 18.6 % Monocytes % 10.3 % Eosinophils % 2.5 % Basophils % 0.3 % Neutrophils # 4.6 (1.6-8.9) K/mcL Lymphocytes # 1.3 (0.6-4.6) K/mcL Monocytes # 0.7 (0.0-1.3) K/mcL Eosinophils # 0.2 (0.0-0.6) K/mcL Basophils # 0.0 (0.0-0.2) K/mcL Platelet Estimate Normal (Normal) Hypochromasia Present A (Not Present) Sodium 143 (136-145) mEq/L Potassium 4.9 H (3.5-4.5) mEq/L Chloride 100 (98-109) mEq/L Carbon Dioxide 37 H (19-29) mEq/L BUN 21 H (7-20) mg/dL Creatinine 0.90 (0.57-1.11) mg/dL Est GFR ( Amer) > 60 (> 60) Est GFR (Non-Af Amer) > 60 (> 60) BUN/Creatinine Ratio 23 (6-26) Glucose 104 H (70-99) mg/dL Calculated Osmolality 299 (280-300) Lactic Acid 1.0 (0.5-2.2) mmol/L Calcium 9.6 (8.6-10.8) mg/dL Troponin I (0-0.03) ng/mL B-Natriuretic Peptide (0-100) pg/mL 05/08/17 05/08/17 Range/Units 14:06 14:06 WBC (4.3-11.1) K/mcL RBC (3.82-4.97) M/mcL Hgb (11.5-15.4) g/dL Hct (35.3-44.9) % MCV (83.0-100.0) fL MCH (28.0-33.3) pg MCHC (31.6-35.5) g/dL RDW (11.5-14.5) % Plt Count (140-400) K/mcL MPV (9.4-12.4) fL Immature Gran % (0-4) % Seg Neutrophils % % Lymphocytes % % Monocytes % % Eosinophils % % Basophils % % Neutrophils # (1.6-8.9) K/mcL Lymphocytes # (0.6-4.6) K/mcL Monocytes # (0.0-1.3) K/mcL Eosinophils # (0.0-0.6) K/mcL Basophils # (0.0-0.2) K/mcL Platelet Estimate (Normal) Hypochromasia (Not Present) Sodium (136-145) mEq/L Potassium (3.5-4.5) mEq/L Chloride (98-109) mEq/L Carbon Dioxide (19-29) mEq/L BUN (7-20) mg/dL Creatinine (0.57-1.11) mg/dL Est GFR ( Amer) (> 60) Est GFR (Non-Af Amer) (> 60) BUN/Creatinine Ratio (6-26) Glucose (70-99) mg/dL Calculated Osmolality (280-300) Lactic Acid (0.5-2.2) mmol/L Calcium (8.6-10.8) mg/dL Troponin I 0.00 (0-0.03) ng/mL B-Natriuretic Peptide 21 (0-100) pg/mL - Radiology Data Radiology results reviewed: Yes I reviewed the patient's radiology results. Chest X-Ray 05/08/17 13:50 IMPRESSION: Interstitial edema, most compatible with CHF versus volume overload. D/ / John Zimmerman MD / John Zimmerman MD Interpreting Provider: John Zimmerman MD - EKG Data EKG attestation: Yes I reviewed and interpreted this EKG. EKG shows normal: Reports: sinus rhythm Rate: Reports: normal Rhythm: Reports: NSR Interpretation: Reports: no acute changes
[2017-05-08 14:18] LABS: Red Cell Distribution Width 14.6 % (11.5-14.5)
[2017-05-08 14:19] LABS: Basophils % 0.3 %
[2017-05-08 14:20] LABS: Eosinophils # 0.2 K/mcL (0.0-0.6); Eosinophils % 2.5 %; Hematocrit 34.9 % (35.3-44.9); Hemoglobin 10.1 g/dL (11.5-15.4); Lymphocytes # 1.3 K/mcL (0.6-4.6); Lymphocytes % 18.6 %; Mean Corpuscular HGB Conc 28.9 g/dL (31.6-35.5); Mean Corpuscular Hemoglobin 24.8 pg (28.0-33.3); Mean Corpuscular Volume 85.5 fL (83.0-100.0); Monocytes # 0.7 K/mcL (0.0-1.3); Monocytes % 10.3 %; Neutrophils # 4.6 K/mcL (1.6-8.9); Platelet Count 203 K/mcL (140-400); Red Blood Count 4.08 M/mcL (3.82-4.97); Segmented Neutrophils % 67.3 %
[2017-05-08 14:30] LABS: BUN/Creatinine Ratio 23 (6-26); Blood Urea Nitrogen 21 mg/dL (7-20); Calcium 9.6 mg/dL (8.6-10.8); Carbon Dioxide 37 mEq/L (19-29); Chloride 100 mEq/L (98-109); Glucose 104 mg/dL (70-99); Osmolality,Calculated 299 (280-300); Potassium 4.9 mEq/L (3.5-4.5); Sodium 143 mEq/L (136-145); eGFR For African Americans > 60 (> 60); eGFR For Non-African Americans > 60 (> 60)
[2017-05-08 14:39] LABS: Platelet Estimate Normal (Normal)
[2017-05-08 14:40] LABS: Hypochromasia Present (Not Present)
[2017-05-08] MEDS ORDERED: Furosemide 40 MG/4 ML VIAL IVP ONE (15:21)
[2017-05-08] MEDS ORDERED: Acetaminophen 325 MG TABLET PO PRN (16:31)
[2017-05-08] MEDS ORDERED: Albuterol 2.5 MG/3 ML NEBULIZER IH PRN ×2 (16:35→17:23)
[2017-05-08] MEDS ORDERED: Furosemide 40 MG TABLET PO SCH (17:00)
[2017-05-08] MEDS: Fluorometholone OPTH 5 ML BOTTLE LEFT EYE SCH ×2 (17:03→20:54)
[2017-05-08] MEDS ORDERED: Naloxone 0.4 MG/ML INJ IVP PRN (17:25)
--- NOTE | 2017-05-08 17:29 | Event Note ---
Date of Encounter: 05/08/17 Time of Encounter: 17:25 I examined this patient and my medical decision-making was reviewed with the nurse practitioner, Ifeanyi Phelps. I agree with the documented history of present illness, review of systems, past medical, surgical social and family histories and examination findings, disposition and treatment plan as described above except to any changes set forth below. 66-year-old female patient with history of COPD, asthma and chronic respiratory failure, diastolic congestive heart failure presented to ER with worsening dyspnea especially with minimal exertion and worsening pedal edema. Patient is on Lasix 40 mg daily at home. She has been compliant with her treatment but has noticed increased swelling in lower extremities despite this. She denies any orthopnea or PND. Denies any chest pain. No nausea or vomiting. She is not on any fluid restriction as she had developed kidney injury in the past. Denies any palpitations. On examination, patient is awake and alert. S1 and S2 are normal. Breath sounds are normal. No wheezing audible. Bilateral pedal edema present. Acute on chronic diastolic congestive heart failure: Will treat with IV Lasix. Monitor urine output. High risk for complications due to use of intravenous Lasix. Chronic respiratory failure: Continue O2 supplementation. COPD: Not in acute exacerbation. Continue home medications. Atrial fibrillation: Rate controlled. Continue Rythmol. On anticoagulation with Coumadin. Will check INR.
--- NOTE | 2017-05-08 17:38 | Internal Med History&Physical ---
<Ifeanyi Phelps J - Last Filed: 05/08/17 17:33> Date of Encounter: 05/08/17 Time of Encounter: 17:33 Assessment and Plan (1) Acute on chronic heart failure with normal ejection fraction Current visit: Yes Status: Acute Dyspnea has improved since dose of lasix in ED. Now back on 3LNC per home dose of oxygen and resting comfortably without respiratory distress. Continue diuresis with lasix 40mg IVP BID Strict I&O, Daily weight high risk for renal complications d/t IV lasix use (2) Atrial fibrillation Current visit: Yes Status: Chronic Rate controlled, Continue rhythmol, on coumadin, check stat INR. Continue coumadin with pharmacy to dose. Qualifiers: Atrial fibrillation type: paroxysmal Qualified Code(s): I48.0 - Paroxysmal atrial fibrillation (3) COPD (chronic obstructive pulmonary disease) Current visit: No Status: Chronic H/O COPD, lungs clear, no wheezes, no respiratory distress. Not CHF exacerbation, continue respiratory support and adjust O2 as needed. Continue home nebulizers and inhalers. Qualifiers: COPD type: emphysema Emphysema type: centrilobular Qualified Code(s): J43.2 - Centrilobular emphysema (4) Bilateral lower extremity edema Current visit: Yes Status: Chronic see CHF assessment and plan above (5) Morbid obesity Current visit: Yes Status: Chronic (6) DVT prophylaxis Current visit: No Status: Acute On coumadin, low risk for DVT, ambulate as tolerated. Internal Medicine - H&P: HPI Chief complaint: DYSPNEA, EDEMA Admitted From: Home Plans for Post Hospital Care: Home History of present illness: Ms. Guevara is a 66 year old female with a PMH of copd, asthma, chronic respiratory failure, diastolic congestive heart failure, A-fib, and hypertension who presents to [facility] with worsening dyspnea and BLE edema since Sunday. She admits the dyspnea is worse with exertion. She is on lasix 40mg QD at home and has been compliant but continues to notice incresed trouble breathing and worsening BLE edema. Denies any chest pain, orthopnea, fevers, fatigue, or N/V/D. CXR reveals interstitial edema. She is being admitted for further treatment and monitoring. Past Med Surg Social Fam HX - Past Medical History Medical history: asthma, atrial fibrillation, CHF, COPD, GERD, hypertension, migraine Psychiatric history: no psych history - Past Surgical History Surgical History: cholecystectomy, hysterectomy - Social History Smoking Status: Former smoker Smokeless Tobacco Status: No Alcohol use: none Drug use: none - Family History Sister Living Status: Hx Family Cardiac Disorders: Yes Hx Family Respiratory Disorders: Yes (copd) Mother Adopted: No Family Member Ethnicity: Non- Twin of Family Member: Yes, Fraternal Living Status: Hx Family Cardiac Disorders: Yes (HTN) Hx Family Respiratory Disorders: No Hx Family Cancer: Yes (Melanoma) Hx Family GI Disorders: Yes (Constipation) Hx Family Endocrine Disorder: No Hx Family Neuromuscular Disorders: No Hx Family Neurologic Disorders: No Hx Family HEENT Disorders: No Hx Family Autoimmune Disorders: No Father Adopted: No Family Member Ethnicity: Non- Twin of Family Member: Yes, Fraternal Living Status: Age at : 47 Hx Family Cardiac Disorders: Yes (Thrombosis) Hx Family Respiratory Disorders: Yes (self,sister) Hx Family Cancer: No Hx Family GI Disorders: Yes (self) Hx Family Endocrine Disorder: No Hx Family Neuromuscular Disorders: No Hx Family Neurologic Disorders: No Hx Family HEENT Disorders: No Hx Family Autoimmune Disorders: No Internal Medicine - H&P: Meds Alendronate Sodium [Fosamax] 70 mg PO WE 10/28/15 [History] Ascorbate Calcium [Vitamin C] 500 mg PO DAILY 10/28/15 [History] Cholecalciferol (Vitamin D3) [Vitamin D3] 5,000 unit PO DAILY 10/28/15 [History] Cyanocobalamin (Vitamin B-12) [Vitamin B-12] 100 mcg PO DAILY 10/28/15 [History] Tiotropium [Spiriva] 18 mcg IH HS 10/28/15 [History] Warfarin [Coumadin] 5 mg PO MOTUWE 10/28/15 [History] Dexlansoprazole [Dexilant] 60 mg PO DAILY 07/03/16 [History] Ferrous Sulfate [Iron] 325 mg PO DAILY 07/03/16 [History] Acetaminophen/Diphenhydramine [Acetaminophen Pm Caplet] 2 tab PO HS 09/09/16 [ History] Albuterol Sulfate [Proventil Hfa] 2 puff IH Q4H PRN 09/14/16 [History] Oxygen 3 l IH AD 10/24/16 [History] Albuterol Neb [Proventil Neb] 2.5 mg IH Q4H PRN #1 inhsol 11/16/16 [Rx] Fluticasone/Salmeterol [Advair 250-50 Diskus] 1 puff IH BID #1 blst.w.dev [Rx] Montelukast [Singulair] 10 mg PO DAILY 11/29/16 [History] Ropinirole HCl [Requip] 2 mg PO HS 11/29/16 [History] Acetaminophen [Tylenol] 650 mg PO Q6HR PRN #0 tablet 12/04/16 [Rx] Magnesium Oxide [Mag-Ox] 400 mg PO DAILY #30 tablet 12/04/16 [Rx] Furosemide [Lasix] 20 mg PO BID #60 01/11/17 [Rx] Propafenone [Rhythmol] 150 mg PO Q8H #90 tablet 01/11/17 [Rx] Calcium Carbonate [Calcium] 600 mg PO BID 05/08/17 [History] Fluorometholone [Fml Forte] 1 drop LEFT EYE QID 05/08/17 [History] Lisinopril [Zestril] 2.5 mg PO BID 05/08/17 [History] Warfarin [Coumadin] 2.5 mg PO SUTHFRSA 05/08/17 [History] 3 Allergy/AdvReac Type Severity Reaction Status Date / Time aspirin [ASA] Allergy Difficulty Verified 09/29/16 11:04 Breathing Penicillins Allergy Hives Verified 09/29/16 11:04 Sulfa (Sulfonamide Allergy Rash Verified 09/29/16 11:04 Antibiotics) All Systems PM: A 10-system review of systems was performed and is negative for pertinent findings except as documented above in the HPI. - Constitutional Constitutional: no chills, no fever(s), no night sweats - EENT Eyes: no change in vision, no discharge, no pain, no photophobia Ears: no ear discharge, no ear pain, no tinnitus Nose, mouth and throat: no dysphagia, no nasal discharge, no neck pain, no sore throat - Cardiovascular Cardiovascular ROS IM: dyspnea on exertion, edema, no chest pain, no diaphoresis , no dyspnea, no lightheadedness, no palpitations, no syncope - Respiratory Respiratory: dyspnea on exertion, no cough, no dyspnea, no wheezing, no excessive phlegm production - Gastrointestinal Gastrointestinal: no abdominal pain, no diarrhea, no hematemesis, no hematochezia, no melena, no nausea, no vomiting - Genitourinary Genitourinary: no change in urinary stream, no dysuria, no flank pain, no hematuria - Musculoskeletal Musculoskeletal ROS IM: no numbness, no tingling - Integumentary Integumentary IM: no rash, no unusual bruising - Neurological Neurological ROS: no confusion, no convulsions, no focal weakness, no numbness, no tingling, no tremor(s) - Hematologic/Lymphatic Hematologic/Lymphatic: no easy bruising - Constitutional Vitals: Temp Pulse Resp BP Pulse Ox 98.0 F 84 16 143/79 95 05/08/17 16:38 05/08/17 16:38 05/08/17 16:38 05/08/17 16:38 05/08/17 16:38 General appearance: Present: cooperative, A&O X 3, morbidly obese, no acute distress, answers questions appropriately - Head Head exam: Present: atraumatic, normocephalic - Eye Eye exam: Present: EOMI, PERRL, conjuntiva pink, sclera anicteric Pupils: Present: PERRL - Neck Neck exam general surgery: Present: supple, trachea midline. Absent: lymphadenopathy - Respiratory Respiratory exam: Present: CTAB. Absent: accessory muscle use, rales, respiratory distress, rhonchi, wheezes - Cardiovascular Cardiovascular exam: Present: RRR, +S1, +S2. Absent: diastolic murmur, gallop, rubs, systolic murmur - GI/Abdominal GI/Abdominal exam: Present: normal bowel sounds, soft, no peritoneal signs. Absent: distended, tenderness - Extremities Exam Extremities exam: Present: warm, radial pulses palpable and symmetrical. Absent : calf tenderness, cyanotic, pedal edema - Expanded Lower Extremities Exam Lower Leg exam: Present: swelling. Absent: tenderness (BLE pitting edema 3+) - Neurological Exam Neurological exam: Present: CN II-XII intact, oriented X3, no focal deficits. Absent: pronater drift, facial droop, speech deficit - Skin Skin exam: Present: dry, intact Internal Med - H&P Results - Labs CBC & Chem 7: 05/08/17 14:06 05/08/17 14:06 - EKG Data -: EKG Interpreted by Myself EKG shows normal: sinus rhythm - EKG Data Prior EKG available for review: no Interpretation IM: normal EKG - Diagnostic Studies Chest x-ray Additional comments: interstitial pulmonary edema <Bryon Ross - Last Filed: 05/09/17 08:56> Date of Encounter: 05/08/17 Internal Medicine - H&P: HPI History of present illness: Ms. Guevara is a 66 year old female All Systems PM: A 10-system review of systems was performed and is negative for pertinent findings except as documented above in the HPI. - Constitutional Vitals: Temp Pulse Resp BP Pulse Ox 98.5 F 82 16 128/56 97 05/09/17 07:01 05/09/17 07:01 05/09/17 07:01 05/09/17 07:01 05/09/17 07:01 Internal Med - H&P Results - Labs CBC & Chem 7: 05/09/17 02:59 05/09/17 02:59 Labs: Short CBC 05/09/17 Range/Units 02:59 WBC 6.5 (4.3-11.1) K/mcL Hgb 9.9 L (11.5-15.4) g/dL Hct 34.9 L (35.3-44.9) % Plt Count 209 (140-400) K/mcL Neutrophils # 4.3 (1.6-8.9) K/mcL BMP 05/09/17 02:59 Sodium 139 Potassium 5.0 H Chloride 96 L Carbon Dioxide 34 H BUN 23 H Creatinine 1.12 H Glucose 116 H Calcium 9.6 Cardiac Enzymes 05/08/17 05/09/17 Range/Units 19:14 02:59 Troponin I 0.01 0.00 (0-0.03) ng/mL Liver Function 05/09/17 Range/Units 02:59 Total Bilirubin 0.2 (0.2-1.2) mg/dL AST 20 (5-34) Units/L ALT 22 (0-55) Units/L Alkaline Phosphatase 82 (38-126) Units/L Albumin 3.4 L (3.5-5.0) g/dL - Attending Attestation Date of Encounter: 05/08/17 Time of Encounter: 17:25 I examined this patient and my medical decision-making was reviewed with the nurse practitioner, Ifeanyi Phelps. I agree with the documented history of present illness, review of systems, past medical, surgical social and family histories and examination findings, disposition and treatment plan as described above except to any changes set forth below. 66-year-old female patient with history of COPD, asthma and chronic respiratory failure, diastolic congestive heart failure presented to ER with worsening dyspnea especially with minimal exertion and worsening pedal edema. Patient is on Lasix 40 mg daily at home. She has been compliant with her treatment but has noticed increased swelling in lower extremities despite this. She denies any orthopnea or PND. Denies any chest pain. No nausea or vomiting. She is not on any fluid restriction as she had developed kidney injury in the past. Denies any palpitations. On examination, patient is awake and alert. S1 and S2 are normal. Breath sounds are normal. No wheezing audible. Bilateral pedal edema present. Acute on chronic diastolic congestive heart failure: Will treat with IV Lasix. Monitor urine output. High risk for complications due to use of intravenous Lasix. Chronic respiratory failure: Continue O2 supplementation. COPD: Not in acute exacerbation. Continue home medications. Atrial fibrillation: Rate controlled. Continue Rythmol. On anticoagulation with Coumadin. Will check INR.
[2017-05-08 17:45] LABS: INR 1.8
[2017-05-08] MEDS ORDERED: *HR* Warfarin 5 MG TABLET PO SCH (18:00)
[2017-05-08] MEDS ORDERED: Warfarin perPT PO PRN (18:00)
[2017-05-08] MEDS ORDERED: Ipratropium/Albuterol Neb 3 ML IH SCH (20:00)
[2017-05-08] MEDS: Tiotropium 18 MCG inhalation IH SCH (20:30)
[2017-05-08] MEDS: Budesonide/Formoterol 80/4.5 MDI IH SCH (20:35)
[2017-05-08] MEDS: Furosemide 40 MG/4 ML VIAL IVP SCH (20:55)
[2017-05-08] MEDS ORDERED: ACETAMINOPHEN PO SCH (21:00)
[2017-05-08] MEDS ORDERED: rOPINIRole 1 MG TABLET PO SCH (21:00)
[2017-05-08] MEDS ORDERED: DIPHENHYDRAMINE PO SCH (21:00)
[2017-05-09 04:33] LABS: Mean Corpuscular Hemoglobin 23.9 pg (28.0-33.3); Mean Platelet Volume 11.8 fL (9.4-12.4)
[2017-05-09 04:35] LABS: Basophils % 0.5 %; Eosinophils # 0.2 K/mcL (0.0-0.6); Eosinophils % 2.8 %; Hematocrit 34.9 % (35.3-44.9); Hemoglobin 9.9 g/dL (11.5-15.4); Immature Granulocytes % 0.9 % (0-4); Lymphocytes # 1.1 K/mcL (0.6-4.6); Lymphocytes % 17.4 %; Mean Corpuscular HGB Conc 28.4 g/dL (31.6-35.5); Mean Corpuscular Volume 84.3 fL (83.0-100.0); Monocytes # 0.8 K/mcL (0.0-1.3); Neutrophils # 4.3 K/mcL (1.6-8.9); Nucleated Red Blood Cells 0.3 /100 WBC (0); Platelet Count 209 K/mcL (140-400); Red Blood Count 4.14 M/mcL (3.82-4.97); Red Cell Distribution Width 14.6 % (11.5-14.5); Segmented Neutrophils % 66.4 %
[2017-05-09 04:55] LABS: Albumin 3.4 g/dL (3.5-5.0); Albumin/Globulin Ratio 1.1 (1.1-2.2); Bilirubin,Total 0.2 mg/dL (0.2-1.2); Calcium 9.6 mg/dL (8.6-10.8); Globulin 3.2 g/dL (2.4-3.5); Total Protein 6.6 g/dL (6.0-8.3)
[2017-05-09 05:05] LABS: Large Platelets Present (Not Present); Platelet Estimate Normal (Normal); Polychromasia 1+ (Not Present)
[2017-05-09] MEDS: Budesonide/Formoterol 80/4.5 MDI IH SCH (08:07)
[2017-05-09] MEDS: Tiotropium 18 MCG inhalation IH SCH (08:08)
[2017-05-09] MEDS: Furosemide 40 MG/4 ML VIAL IVP SCH (08:56)
[2017-05-09] MEDS: Fluorometholone OPTH 5 ML BOTTLE LEFT EYE SCH (08:57)
[2017-05-09] MEDS ORDERED: Ascorbic Acid 500 MG TABLET PO SCH (09:00)
[2017-05-09] MEDS ORDERED: Magnesium Oxide 400 MG TABLET PO SCH (09:00)
[2017-05-09] MEDS ORDERED: Furosemide 20 MG TABLET PO SCH (09:00)
[2017-05-09] MEDS ORDERED: Cyanocobalamin (B-12) 1,000 MCG TABLET PO SCH (09:00)
[2017-05-09] MEDS ORDERED: Cholecalciferol (D-3) 1,000 UNIT TABLET PO SCH (09:00)
--- NOTE | 2017-05-09 10:35 | Discharge Summary ---
Date of Encounter: 05/09/17 Time of Encounter: 10:33 - Discharge Diagnosis (1) CHF exacerbation Priority: Primary Status: Acute Qualifiers: Congestive heart failure type: diastolic Qualified Code(s): I50.33 - Acute on chronic diastolic (congestive) heart failure (2) Acute heart failure with normal ejection fraction Priority: Secondary Status: Acute (3) BMI 50.0-59.9, adult Priority: Secondary Status: Chronic (4) Chronic anticoagulation Priority: Secondary Status: Chronic (5) Chronic kidney disease Priority: Secondary Status: Acute Qualifiers: Chronic kidney disease stage: stage 2 (mild) Qualified Code(s): N18.2 - Chronic kidney disease, stage 2 (mild) (6) COPD (chronic obstructive pulmonary disease) Priority: Secondary Status: Chronic Qualifiers: COPD type: emphysema Emphysema type: centrilobular Qualified Code(s): J43.2 - Centrilobular emphysema (7) Paroxysmal atrial fibrillation Priority: Secondary Status: Chronic - Discharge Medications Home Medications: Alendronate Sodium [Fosamax] 70 mg PO WE 10/28/15 [History] Ascorbate Calcium [Vitamin C] 500 mg PO DAILY 10/28/15 [History] Cholecalciferol (Vitamin D3) [Vitamin D3] 5,000 unit PO DAILY 10/28/15 [History] Cyanocobalamin (Vitamin B-12) [Vitamin B-12] 100 mcg PO DAILY 10/28/15 [History] Tiotropium [Spiriva] 18 mcg IH HS 10/28/15 [History] Warfarin [Coumadin] 5 mg PO MOTUWE 10/28/15 [History] Dexlansoprazole [Dexilant] 60 mg PO DAILY 07/03/16 [History] Ferrous Sulfate [Iron] 325 mg PO DAILY 07/03/16 [History] Acetaminophen/Diphenhydramine [Acetaminophen Pm Caplet] 2 tab PO HS 09/09/16 [ History] Albuterol Sulfate [Proventil Hfa] 2 puff IH Q4H PRN 09/14/16 [History] Oxygen 3 l IH AD 10/24/16 [History] Albuterol Neb [Proventil Neb] 2.5 mg IH Q4H PRN #1 inhsol 11/16/16 [Rx] Fluticasone/Salmeterol [Advair 250-50 Diskus] 1 puff IH BID #1 blst.w.dev [Rx] Montelukast [Singulair] 10 mg PO DAILY 11/29/16 [History] Ropinirole HCl [Requip] 2 mg PO HS 11/29/16 [History] Acetaminophen [Tylenol] 650 mg PO Q6HR PRN #0 tablet 12/04/16 [Rx] Magnesium Oxide [Mag-Ox] 400 mg PO DAILY #30 tablet 12/04/16 [Rx] Furosemide [Lasix] 20 mg PO BID #60 01/11/17 [Rx] Propafenone [Rhythmol] 150 mg PO Q8H #90 tablet 01/11/17 [Rx] Calcium Carbonate [Calcium] 600 mg PO BID 05/08/17 [History] Fluorometholone [Fml Forte] 1 drop LEFT EYE QID 05/08/17 [History] Lisinopril [Zestril] 2.5 mg PO BID 05/08/17 [History] Warfarin [Coumadin] 2.5 mg PO SUTHFRSA 05/08/17 [History] Allergies/Adverse Reactions: 3 Allergy/AdvReac Type Severity Reaction Status Date / Time aspirin [ASA] Allergy Difficulty Verified 09/29/16 11:04 Breathing Penicillins Allergy Hives Verified 09/29/16 11:04 Sulfa (Sulfonamide Allergy Rash Verified 09/29/16 11:04 Antibiotics) Date of admission: 05/08/17 15:59 Primary care physician: Lisbet Ray, Consults: 05/08/17 17:30 Consult to Nurse Navigator [CONS] Routine Comment: Discharging clinician: Bryon Ross Anticipated date of discharge: 05/09/17 - Patient Status Disposition: Home, Self-Care Condition: Good Functional capacity at discharge: independent ambulation Overall status at discharge: patient is progressing back to baseline - Discharge Instructions Instructions: Heart Failure (DC), Atrial Fibrillation (DC) Follow Up With: Lisbet Ray CNP [Primary Care Provider] - (In one week) Aj Virk MD [Partnered Physician] - (For heart failure in 1 week) - Diet and Activity Activity: increase activity as tolerated, wear oxygen at all times Diet: advance to your usual diet, low fat, low cholesterol, low salt diet, other (Fluid restriction of 1.8-2 L per day) Hospital course: Ms. Guevara is a 66 year old female patient with a history of proximal atrial fibrillation, diastolic congestive heart failure, COPD with chronic respiratory failure on home oxygen, hypertension who was hospitalized here with worsening shortness of breath and increased swelling in her lower extremities. She was diagnosed with acute exacerbation of diastolic congestive heart failure. She was treated with intravenous Lasix. Her chest x-ray showed some interstitial edema. This morning she is feeling much better and is able to ambulate with significantly less shortness of breath. Swelling in her lower extremities is also improving. She has had good urine output. She is stable for discharge home. At this time I am not increasing her Lasix dosage as she seems to be euvolemic today. She had not been on fluid restriction at home and I do recommend that she remain on fluid restriction at 1.8-2L/day. She is also advised to monitor her weight and blood pressures daily. 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 - Time Spent with Patient Total time spent providing and/or coordinating discharge services: Less than 30 minutes (25 min) - Constitutional Vitals: Temp Pulse Resp BP Pulse Ox 98.5 F 82 16 128/56 97 05/09/17 07:01 05/09/17 07:01 05/09/17 08:05 05/09/17 07:01 05/09/17 08:45 General appearance: Present: cooperative, A&O X 3, morbidly obese, no acute distress, answers questions appropriately - Respiratory Respiratory exam: Present: CTAB. Absent: accessory muscle use, rales, rhonchi, wheezes - Cardiovascular Cardiovascular exam: Present: RRR, +S1, +S2. Absent: diastolic murmur, gallop, rubs, systolic murmur - GI/Abdominal GI/Abdominal exam: Present: normal bowel sounds, soft, no peritoneal signs. Absent: distended, tenderness - Extremities Exam Extremities exam: Present: pedal edema (Bilateral pedal edema improving), warm, radial pulses palpable and symmetrical. Absent: calf tenderness, cyanotic
[2017-05-09 10:48] VITALS: BP 136/71
[2017-05-09] MEDS ORDERED: (Alendronate Sodium [Fosamax] 70 MG) PO SCH (16:31)
--- NOTE | 2017-05-09 19:07 | Electrocardiograph Report ---
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
[2017-05-10] MEDS ORDERED: *HR* Warfarin 2.5 MG TABLET PO SCH (18:00)
== END 2017-05-09 14:20 | disposition home or self-care (01) ==
LOC: 3BNU 13:28 → EMEROO 13:28 → SUATTDRO 15:59 → 3BNU 16:29
PROVIDERS: ADMIT Nurse Practitioner; ATTEND Internal Medicine

== ENCOUNTER 2017-05-18 14:36 | Inpatient (IN) ==
--- NOTE | 2017-05-18 15:26 | Emergency Department Note ---
Disposition Clinical Impression: Atrial fibrillation with RVR Disposition: Admitted As Inpatient Condition: Fair Referrals: Lisbet Ray CNP [Primary Care Provider] - Forms: ED Satisfaction Letter Time of Disposition: 17:41 General Adult HPI - General Chief complaint: ED Arrhythmia/Palpitations Stated complaint: A-fib Time Seen by Provider: 05/18/17 14:53 Source: patient Limitations: no limitations Nursing Notes Reviewed: Yes Vital Signs Reviewed: Yes - History of Present Illness HPI Narrative: Mrs. Guevara is a 66 year old female with past medical history of atrial fibrillation, hypertension, CHF, and COPD presenting with atrial fibrillation. Patient reports that around 2:OO am when she got up to go to the bathroom she was in an abnormal heart rhythm with palpitations and noticed increased shortness of breath. She then went back to bed, however, when she woke up she continued to have increases shortness of breath and palpitations. She denies chest pain, nausea, vomiting, or diaphoresis. She states that she missed a dose of her Rhythmol a day ago, however, has taken all of her medications today. She notes that she was diagnosed with atrial fibrillation many years ago and has gone in and out of atrial fibrillation many times. She generally feels when she is in atrial fibrillation and this episode feels similar to those in the past. She has not noticed any abnormal swelling. She does wear 3L of oxygen at home throughout the day and night. She does note that recently she was placed on prednisone for shoulder pain per her PCP and yesterday she was cleaning her home which is more activity than she is use to. Pain Scale: 0 - Related Data Home Medications Medication Instructions Recorded Confirmed Alendronate Sodium [Fosamax] 70 mg PO WE 10/28/15 05/08/17 Ascorbate Calcium [Vitamin C] 500 mg PO DAILY 10/28/15 05/08/17 Cholecalciferol (Vitamin D3) 5,000 unit PO DAILY 10/28/15 05/08/17 [Vitamin D3] Cyanocobalamin (Vitamin B-12) 100 mcg PO DAILY 10/28/15 05/08/17 [Vitamin B-12] Tiotropium [Spiriva] 18 mcg IH HS 10/28/15 05/08/17 Warfarin [Coumadin] 5 mg PO MOTUWE 10/28/15 05/08/17 Dexlansoprazole [Dexilant] 60 mg PO DAILY 07/03/16 05/08/17 Ferrous Sulfate [Iron] 325 mg PO DAILY 07/03/16 05/08/17 Acetaminophen/Diphenhydramine 2 tab PO HS 09/09/16 05/08/17 [Acetaminophen Pm Caplet] Albuterol Sulfate [Proventil Hfa] 2 puff IH Q4H PRN 09/14/16 05/08/17 Oxygen 3 l IH AD 10/24/16 05/08/17 Montelukast [Singulair] 10 mg PO DAILY 11/29/16 05/08/17 Ropinirole HCl [Requip] 2 mg PO HS 11/29/16 05/08/17 Calcium Carbonate [Calcium] 600 mg PO BID 05/08/17 05/08/17 Fluorometholone [Fml Forte] 1 drop LEFT EYE QID 05/08/17 05/08/17 Lisinopril [Zestril] 2.5 mg PO BID 05/08/17 05/08/17 Warfarin [Coumadin] 2.5 mg PO SUTHFRSA 05/08/17 05/08/17 Previous Rx's Medication Instructions Recorded Albuterol Neb [Proventil Neb] 2.5 mg IH Q4H PRN #1 inhsol 11/16/16 Fluticasone/Salmeterol [Advair 1 puff IH BID #1 blst.w.dev 11/16/16 250-50 Diskus] Acetaminophen [Tylenol] 650 mg PO Q6HR PRN #0 tablet 12/04/16 Magnesium Oxide [Mag-Ox] 400 mg PO DAILY #30 tablet 12/04/16 Furosemide [Lasix] 20 mg PO BID #60 01/11/17 Propafenone [Rhythmol] 150 mg PO Q8H #90 tablet 01/11/17 Allergies Allergy/AdvReac Type Severity Reaction Status Date / Time aspirin [ASA] Allergy Difficulty Verified 09/29/16 11:04 Breathing Penicillins Allergy Hives Verified 09/29/16 11:04 Sulfa (Sulfonamide Allergy Rash Verified 09/29/16 11:04 Antibiotics) All systems ED: reviewed and negative except as stated. Constitutional: Denies: fever, chills, weakness Cardiovascular: Reports: palpitations, dyspnea on exertion. Denies: chest pain , syncope Respiratory: Reports: dyspnea. Denies: cough Gastrointestinal: Denies: abdominal pain, nausea, vomiting, diarrhea Musculoskeletal: Denies: back pain Neurological: Denies: headache, weakness, numbness Past Medical History - Past Medical History Attestation: Yes The following information was validated with the patient. Source: patient Medical history: Reports: asthma, atrial fibrillation, CHF, COPD, GERD, hypertension, migraine Surgical history: Reports: cholecystectomy, hysterectomy Psychiatric history: Reports: no psych history [employer] history: Reports: no [employer] history - Social History Smoking Status: Former smoker Smokeless Tobacco Status: No Alcohol use: Reports: none Drug use: Reports: none Physical Exam - General Limitations: no limitations General appearance: alert, in no apparent distress - Head Head exam: atraumatic, normocephalic - Eye Eye exam: Present: normal appearance, PERRL, EOMI - ENT ENT exam: normal exam, normal oropharynx - Neck Neck exam: Present: normal inspection - Chest Chest inspection: Present: normal inspection, symmetric chest wall rise - Respiratory Respiratory exam: Present: normal lung sounds bilaterally. Absent: respiratory distress - Cardiovascular Cardiovascular exam: Present: tachycardia, irregular rhythm - Abdominal Exam Abdominal exam: Present: soft, Non-Tender, normal bowel sounds. Absent: guarding, rebound - Back Exam Back exam: Present: normal inspection - Neurological Exam Neurological exam: Present: alert, oriented X3 - Psychiatric Psychiatric exam: Present: normal affect - Skin Skin exam: Present: warm, dry Course Course Narrative: Patient is in no distress. She is in A. fib with RVR. We will give her some Cardizem and monitor. - Reevaluation(s) Reevaluation #1: Patient's rate bouncing between 100 110. At 120. Will start on low-dose Cardizem drip. Time: 17:30 - Consultations Consultation #1: Gaurav nurse practitioner accepts for admission Time: 17:42 Vital Signs Temperature 98.0 F 05/18/17 14:52 Pulse Rate 123 05/18/17 14:52 Respiratory Rate 20 05/18/17 14:52 Blood Pressure 115/72 05/18/17 14:52 O2 Sat by Pulse Oximetry 96 05/18/17 14:52 Temperature 98.0 F 05/18/17 14:52 Pulse Rate 101 05/18/17 16:24 Respiratory Rate 18 05/18/17 16:24 Blood Pressure 116/74 10/13/17 16:24 O2 Sat by Pulse Oximetry 96 05/18/17 16:24 Oxygen Delivery Oxygen Delivery Nasal Cannula Medical Decision Making - Medical Records Medical records reviewed: Yes I reviewed the patient's medical records. - Lab Data Lab results reviewed: Yes I reviewed the patient's lab results. Result diagrams: 05/18/17 15:37 05/18/17 15:37 Lab Results 05/18/17 05/18/17 05/18/17 Range/Units 15:37 15:37 15:37 WBC 9.8 (4.3-11.1) K/mcL RBC 4.23 (3.82-4.97) M/mcL Hgb 10.5 L (11.5-15.4) g/dL Hct 36.1 (35.3-44.9) % MCV 85.3 (83.0-100.0) fL MCH 24.8 L (28.0-33.3) pg MCHC 29.1 L (31.6-35.5) g/dL RDW 15.0 H (11.5-14.5) % Plt Count 209 (140-400) K/mcL MPV 11.7 (9.4-12.4) fL Immature Gran % 0.7 (0-4) % Seg Neutrophils % 88.7 % Lymphocytes % 6.6 % Monocytes % 3.9 % Eosinophils % 0.0 % Basophils % 0.1 % Neutrophils # 8.7 (1.6-8.9) K/mcL Lymphocytes # 0.7 (0.6-4.6) K/mcL Monocytes # 0.4 (0.0-1.3) K/mcL Eosinophils # 0.0 (0.0-0.6) K/mcL Basophils # 0.0 (0.0-0.2) K/mcL PT 25.2 H (9.4-12.1) Seconds INR 2.3 APTT 30.9 (26.0-36.0) Seconds Sodium 141 (136-145) mEq/L Potassium 5.1 H (3.5-4.5) mEq/L Chloride 103 (98-109) mEq/L Carbon Dioxide 31 H (19-29) mEq/L BUN 34 H (7-20) mg/dL Creatinine 1.16 H (0.57-1.11) mg/dL Est GFR ( Amer) 56 L (> 60) Est GFR (Non-Af Amer) 46 L (> 60) BUN/Creatinine Ratio 29 H (6-26) Glucose 148 H (70-99) mg/dL Calculated Osmolality 302 H (280-300) Calcium 9.6 (8.6-10.8) mg/dL Troponin I (0-0.03) ng/mL TSH 1.064 (0.350-4.840) mcIU/mL 05/18/17 Range/Units 15:37 WBC (4.3-11.1) K/mcL RBC (3.82-4.97) M/mcL Hgb (11.5-15.4) g/dL Hct (35.3-44.9) % MCV (83.0-100.0) fL MCH (28.0-33.3) pg MCHC (31.6-35.5) g/dL RDW (11.5-14.5) % Plt Count (140-400) K/mcL MPV (9.4-12.4) fL Immature Gran % (0-4) % Seg Neutrophils % % Lymphocytes % % Monocytes % % Eosinophils % % Basophils % % Neutrophils # (1.6-8.9) K/mcL Lymphocytes # (0.6-4.6) K/mcL Monocytes # (0.0-1.3) K/mcL Eosinophils # (0.0-0.6) K/mcL Basophils # (0.0-0.2) K/mcL PT (9.4-12.1) Seconds INR APTT (26.0-36.0) Seconds Sodium (136-145) mEq/L Potassium (3.5-4.5) mEq/L Chloride (98-109) mEq/L Carbon Dioxide (19-29) mEq/L BUN (7-20) mg/dL Creatinine (0.57-1.11) mg/dL Est GFR ( Amer) (> 60) Est GFR (Non-Af Amer) (> 60) BUN/Creatinine Ratio (6-26) Glucose (70-99) mg/dL Calculated Osmolality (280-300) Calcium (8.6-10.8) mg/dL Troponin I 0.01 (0-0.03) ng/mL TSH (0.350-4.840) mcIU/mL - Radiology Data Radiology results reviewed: Yes I reviewed the patient's radiology results. Chest X-Ray 05/18/17 14:54 IMPRESSION: No acute process. Stable cardiomegaly D/ / Charlie Soler MD / Charlie Soler MD Interpreting Provider: Charlie Soler MD - EKG Data EKG #1 EKG results narrative: A. fib with RVR 118. Normal QRS. Normal intervals. Normal axis. Rhythm is changed from May 08. Critical Care Time Critical Care Time: Yes Total Critical Care Time: 40 Attestation: Critical care performed: Time is exclusive of separately billable procedures. Time includes: direct patient care, patient reassessment, coordination of patient care, interpretation of data (laboratory data, radiology data, and respiratory data), review of patient's medical records, medical consultation and documentation of patient care. Procedures included in critical care time: Procedures excluded from critical care time:
[2017-05-18 15:48] LABS: Basophils % 0.1 %; Hematocrit 36.1 % (35.3-44.9); Hemoglobin 10.5 g/dL (11.5-15.4); Immature Granulocytes % 0.7 % (0-4); Lymphocytes # 0.7 K/mcL (0.6-4.6); Lymphocytes % 6.6 %; Mean Corpuscular HGB Conc 29.1 g/dL (31.6-35.5); Mean Corpuscular Hemoglobin 24.8 pg (28.0-33.3); Mean Corpuscular Volume 85.3 fL (83.0-100.0); Mean Platelet Volume 11.7 fL (9.4-12.4); Monocytes # 0.4 K/mcL (0.0-1.3); Monocytes % 3.9 %; Neutrophils # 8.7 K/mcL (1.6-8.9); Platelet Count 209 K/mcL (140-400); Red Blood Count 4.23 M/mcL (3.82-4.97); Segmented Neutrophils % 88.7 %
[2017-05-18 15:53] LABS: INR 2.3; Prothrombin Time 25.2 Seconds (9.4-12.1)
[2017-05-18 15:56] LABS: Activated Partial Thrombo Time 30.9 Seconds (26.0-36.0)
[2017-05-18 16:01] LABS: Calcium 9.6 mg/dL (8.6-10.8); Potassium 5.1 mEq/L (3.5-4.5)
[2017-05-18 16:22] LABS: Thyroid Stimulating Hormone 1.064 mcIU/mL (0.350-4.840)
[2017-05-18] MEDS ORDERED: 0.9 % Sodium Chloride 250 ML ONE (18:10)
--- NOTE | 2017-05-18 20:17 | Internal Med History&Physical ---
<JosueOmari - Last Filed: 05/18/17 20:56> Date of Encounter: 05/18/17 Time of Encounter: 20:15 Assessment and Plan (1) Atrial fibrillation with rapid ventricular response Current visit: Yes Status: Acute Patient presented with rates in the 120s and was started on Cardizem drip in the ED She remains in AFib RVR upon presentation, so we will continue the drip for now ; will hold home Rhyhtmol while she is on drip Given her previous admission for symptomatic bradycardia, I am concerned for tachy/jin syndrome Cardiology consulted, appreciate recommendations Continue home Warfarin as her INR was therapeutic upon arrival (2) Diastolic CHF Current visit: No Status: Chronic Not in exacerbation at this time as patient's edema is at her baseline Will continue home ACEi, Diuretics Last echo in January demonstrated preserved EF with mild diastolic dysfunction, no indication to repeat at this time Qualifiers: Congestive heart failure chronicity: acute on chronic Qualified Code(s): I50.33 - Acute on chronic diastolic (congestive) heart failure (3) COPD (chronic obstructive pulmonary disease) Current visit: No Status: Chronic Not in exacerbation at this time Will continue supportive measures by continuing home oxygen at 3 L Changing home breathing treatment from Albuterol to Xopenex in setting of arrhythmias Qualifiers: COPD type: emphysema Emphysema type: centrilobular Qualified Code(s): J43.2 - Centrilobular emphysema (4) Hypertension Current visit: No Status: Chronic Blood pressures mildly elevated upon arrival Will continue home ACEi and diuretic Qualifiers: Hypertension type: essential hypertension Qualified Code(s): I10 - Essential (primary) hypertension (5) DVT prophylaxis Current visit: No Status: Acute Warfarin as above Internal Medicine - H&P: HPI Chief complaint: AFib Admitted From: Home Plans for Post Hospital Care: Home History of present illness: Ms. Guevara is a 66 year old female who presents with A. fib RVR. She has history of chronic paroxysmal A. fib and states that she was getting up to the bathroom this morning at 2 AM and felt palpitations and irregular heartbeat. She also described having shortness of breath during exertion but denies any chest pain. She states these symptoms are typical when she gets into A. fib. Of note, patient missed a dose of her Rythmol yesterday but otherwise is compliant with her medications. She is also on Coumadin and denies any problems with bleeding. She does have COPD and CHF and uses 3 L of oxygen at all times throughout the day. Patient was recently here last week with CHF exacerbation and her diuretics were increased. She was also admitted in January this year with symptomatic bradycardia, and discussion was made for possibility of pacemaker but she declined. Patient denies any fevers, nausea, vomiting, diarrhea, diaphoresis, lightheadedness. Past Med Surg Social Fam HX - Past Medical History Medical history: asthma, atrial fibrillation, CHF, COPD, GERD, hypertension, migraine Psychiatric history: no psych history - Past Surgical History Surgical History: cholecystectomy, hysterectomy - Social History Smoking Status: Former smoker Smokeless Tobacco Status: No Alcohol use: none Drug use: none - Family History Sister Living Status: Hx Family Cardiac Disorders: Yes Hx Family Respiratory Disorders: Yes (copd) Mother Adopted: No Family Member Ethnicity: Non- Twin of Family Member: Yes, Fraternal Living Status: Hx Family Cardiac Disorders: Yes (HTN) Hx Family Respiratory Disorders: No Hx Family Cancer: Yes (Melanoma) Hx Family GI Disorders: Yes (Constipation) Hx Family Endocrine Disorder: No Hx Family Neuromuscular Disorders: No Hx Family Neurologic Disorders: No Hx Family HEENT Disorders: No Hx Family Autoimmune Disorders: No Father Adopted: No Family Member Ethnicity: Non- Twin of Family Member: Yes, Fraternal Living Status: Hx Family Cardiac Disorders: Yes (Thrombosis) Hx Family Respiratory Disorders: Yes (self,sister) Hx Family Cancer: No Hx Family GI Disorders: Yes (self) Hx Family Endocrine Disorder: No Hx Family Neuromuscular Disorders: No Hx Family Neurologic Disorders: No Hx Family HEENT Disorders: No Hx Family Autoimmune Disorders: No Internal Medicine - H&P: Meds Alendronate Sodium [Fosamax] 70 mg PO WE 10/28/15 [History] Ascorbate Calcium [Vitamin C] 500 mg PO DAILY 10/28/15 [History] Cholecalciferol (Vitamin D3) [Vitamin D3] 5,000 unit PO DAILY 10/28/15 [History] Cyanocobalamin (Vitamin B-12) [Vitamin B-12] 100 mcg PO DAILY 10/28/15 [History] Tiotropium [Spiriva] 18 mcg IH HS 10/28/15 [History] Warfarin [Coumadin] 5 mg PO MOTUWE 10/28/15 [History] Dexlansoprazole [Dexilant] 60 mg PO DAILY 07/03/16 [History] Ferrous Sulfate [Iron] 325 mg PO DAILY 07/03/16 [History] Acetaminophen/Diphenhydramine [Acetaminophen Pm Caplet] 2 tab PO HS 09/09/16 [ History] Albuterol Sulfate [Proventil Hfa] 2 puff IH Q4H PRN 09/14/16 [History] Oxygen 3 l IH AD 10/24/16 [History] Albuterol Neb [Proventil Neb] 2.5 mg IH Q4H PRN #1 inhsol 11/16/16 [Rx] Fluticasone/Salmeterol [Advair 250-50 Diskus] 1 puff IH BID #1 blst.w.dev [Rx] Montelukast [Singulair] 10 mg PO DAILY 11/29/16 [History] Ropinirole HCl [Requip] 2 mg PO HS 11/29/16 [History] Acetaminophen [Tylenol] 650 mg PO Q6HR PRN #0 tablet 12/04/16 [Rx] Magnesium Oxide [Mag-Ox] 400 mg PO DAILY #30 tablet 12/04/16 [Rx] Furosemide [Lasix] 20 mg PO BID #60 01/11/17 [Rx] Propafenone [Rhythmol] 150 mg PO Q8H #90 tablet 01/11/17 [Rx] Calcium Carbonate [Calcium] 600 mg PO BID 05/08/17 [History] Fluorometholone [Fml Forte] 1 drop LEFT EYE QID 05/08/17 [History] Lisinopril [Zestril] 2.5 mg PO BID 05/08/17 [History] Warfarin [Coumadin] 2.5 mg PO SUTHFRSA 05/08/17 [History] Ciprofloxacin HCl [Cipro] 250 mg PO BID 05/18/17 [History] predniSONE [PredniSONE] See Taper PO DAILY 05/18/17 [History] 3 Allergy/AdvReac Type Severity Reaction Status Date / Time aspirin [ASA] Allergy Difficulty Verified 09/29/16 11:04 Breathing Penicillins Allergy Hives Verified 09/29/16 11:04 Sulfa (Sulfonamide Allergy Rash Verified 09/29/16 11:04 Antibiotics) All Systems PM: A 10-system review of systems was performed and is negative for pertinent findings except as documented above in the HPI. - Constitutional Constitutional: no chills, no fever(s), no night sweats - EENT Eyes: no change in vision, no discharge, no pain, no photophobia Ears: no ear discharge, no ear pain, no tinnitus Nose, mouth and throat: no dysphagia, no nasal discharge, no neck pain, no sore throat - Cardiovascular Cardiovascular ROS IM: dyspnea, dyspnea on exertion, edema, irregular heart rhythm, palpitations, no chest pain, no diaphoresis, no lightheadedness, no syncope - Respiratory Respiratory: dyspnea, dyspnea on exertion, no cough, no wheezing, no excessive phlegm production - Gastrointestinal Gastrointestinal: no abdominal pain, no diarrhea, no hematemesis, no hematochezia, no melena, no nausea, no vomiting - Genitourinary Genitourinary: no change in urinary stream, no dysuria, no flank pain, no hematuria - Musculoskeletal Musculoskeletal ROS IM: no numbness, no tingling - Integumentary Integumentary IM: no rash, no unusual bruising - Neurological Neurological ROS: no confusion, no convulsions, no focal weakness, no numbness, no tingling, no tremor(s) - Hematologic/Lymphatic Hematologic/Lymphatic: no easy bruising - Constitutional Vitals: Temp Pulse Resp BP Pulse Ox 98.5 F 113 20 149/105 96 05/18/17 19:39 05/18/17 19:39 05/18/17 19:39 05/18/17 19:39 05/18/17 19:39 General appearance: Present: cooperative, morbidly obese, pleasant, no acute distress, answers questions appropriately - Head Head exam: Present: atraumatic, normocephalic - Eye Eye exam: Present: PERRL, conjuntiva pink, sclera anicteric - Neck Neck exam general surgery: Present: supple, trachea midline. Absent: lymphadenopathy - Respiratory Respiratory exam: Present: CTAB. Absent: accessory muscle use, rales, rhonchi, wheezes - Cardiovascular Cardiovascular exam: Present: irregular rhythm, +S1, +S2, tachycardia. Absent: diastolic murmur, gallop, rubs, systolic murmur - GI/Abdominal GI/Abdominal exam: Present: normal bowel sounds, soft, no peritoneal signs. Absent: distended, tenderness - Extremities Exam Extremities exam: Present: pedal edema (2+ pitting bilaterally), warm, radial pulses palpable and symmetrical. Absent: calf tenderness, cyanotic - Neurological Exam Neurological exam: Present: alert, no focal deficits. Absent: facial droop, speech deficit - Skin Skin exam: Present: dry, intact Internal Med - H&P Results - Labs CBC & Chem 7: 05/18/17 15:37 05/18/17 15:37 <Vivek Grant - Last Filed: 05/19/17 03:48> Date of Encounter: 05/18/17 Assessment and Plan (1) Renal insufficiency Current visit: Yes Status: Acute A baseline creatinine 0.9, presents with the creatinine of 1.16, etiology is unclear could be pre-renal vs renal or post renal, may be pre-renal from reduced cardiac output from AFIB RVR, will follow BMP (2) Hyperkalemia Current visit: Yes Status: Acute Related to renal insufficiency, should improve with improved renal function, will follow BMP Internal Medicine - H&P: HPI History of present illness: Ms. Guevara is a 66 year old female All Systems PM: A 10-system review of systems was performed and is negative for pertinent findings except as documented above in the HPI. - Constitutional Vitals: Temp Pulse Resp BP Pulse Ox 97.5 F L 100 19 144/87 97 05/18/17 22:47 05/18/17 22:47 05/18/17 22:47 05/18/17 22:47 05/18/17 22:47 Internal Med - H&P Results - Labs CBC & Chem 7: 05/19/17 00:46 05/19/17 00:46 Labs: Short CBC 05/19/17 Range/Units 00:46 WBC 9.9 (4.3-11.1) K/mcL Hgb 10.1 L (11.5-15.4) g/dL Hct 34.5 L (35.3-44.9) % Plt Count 216 (140-400) K/mcL Neutrophils # 7.5 (1.6-8.9) K/mcL BMP 05/19/17 00:46 Sodium 140 Potassium 4.6 H Chloride 103 Carbon Dioxide 29 BUN 36 H Creatinine 1.45 H Glucose 148 H Calcium 9.4 - Attending Attestation I personally interviewed and examined this patient and my medical decision- making was reviewed with the Resident Physician. I agree with the documented findings, disposition and treatment plan as described except to the extent set forth below. 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 Vivek Grant MD, MPH Hospitalist
[2017-05-18] MEDS ORDERED: Ondansetron ODT 4 MG TAB.RAPDIS SL PRN (20:30)
[2017-05-18] MEDS ORDERED: Acetaminophen 325 MG TABLET PO PRN (20:30)
[2017-05-18] MEDS ORDERED: Naloxone 0.4 MG/ML INJ IVP PRN (20:30)
[2017-05-18] MEDS ORDERED: Albuterol 2.5 MG/3 ML NEBULIZER IH PRN (20:42)
[2017-05-18] MEDS ORDERED: *HR* Warfarin 2.5 MG TABLET PO SCH (20:45)
[2017-05-18] MEDS: Tiotropium 18 MCG inhalation IH SCH (21:24)
[2017-05-18] MEDS: Levalbuterol Neb 1.25 MG/3 ML IH SCH (21:48)
[2017-05-18] MEDS: rOPINIRole 1 MG TABLET PO SCH (22:36)
[2017-05-18] MEDS: Furosemide 40 MG TABLET PO SCH (22:37)
[2017-05-19 00:55] LABS: Basophils % 0.1 %; Hematocrit 34.5 % (35.3-44.9); Hemoglobin 10.1 g/dL (11.5-15.4); Immature Granulocytes % 1.6 % (0-4); Lymphocytes # 1.1 K/mcL (0.6-4.6); Lymphocytes % 11.4 %; Mean Corpuscular HGB Conc 29.3 g/dL (31.6-35.5); Mean Corpuscular Hemoglobin 24.9 pg (28.0-33.3); Mean Platelet Volume 11.7 fL (9.4-12.4); Monocytes % 10.5 %; Neutrophils # 7.5 K/mcL (1.6-8.9); Platelet Count 216 K/mcL (140-400); Red Blood Count 4.06 M/mcL (3.82-4.97); Red Cell Distribution Width 14.9 % (11.5-14.5); Segmented Neutrophils % 76.4 %
[2017-05-19 01:09] LABS: Magnesium 2.2 mg/dL (1.6-2.6); Phosphorous 2.7 mg/dL (2.3-4.7)
[2017-05-19 01:12] LABS: Calcium 9.4 mg/dL (8.6-10.8); Potassium 4.6 mEq/L (3.5-4.5)
[2017-05-19] MEDS: Levalbuterol Neb 1.25 MG/3 ML IH SCH ×4 (04:25→22:10)
--- NOTE | 2017-05-19 09:30 | Cardiology Consult Note ---
Date of Encounter: 05/19/17 Time of Encounter: 09:26 Assessment and Plan (1) Paroxysmal atrial fibrillation Current Visit: Yes Status: Chronic Recurrence of PAF likely a combination of missing a Rythmol dose and her supplemental O2 being clamped off for 20 minutes. Currently on cardizem gtt with HR low 100s. Hx of bradycardia in January, cardizem and sotalol were stopped at that time and she was put on Rythmol, maintained SR until now. Recommend resuming Rythmol 150mg [id number]. Daily EKGs to monitor QRS. QRS on admission 92ms. Continue cardizem gtt for rate control for now. Anticoagulated on Coumadin, INR therapeutic. If pt does not convert to SR, will need ZOILA/DCCV while inpt. INR 1.8 on 05/08, so ZOILA warranted. Pt agrees with above plan. Continue to follow. Echo 01/07/17 EF 60-65%. Discussion w patient/family: The assessment and plan as outlined above was discussed with the patient and/or family members who expressed understanding and agreement. All questions were answered. Thank you for involving us in the care of your patient. Please call with any questions. I will discuss all the above with Dr. Lizeth Virk and make changes as necessary. History of Present Illness Consult date: 05/19/17 Requesting physician: Vivek Grant Consult reason: A-Fib RVR Chief complaint: palpitations History of present illness: Ms. Guevara is a 66 year old female with known hx of PAF, diastolic CHF, HTN, bradycardia that presented to ED in A-Fib with RVR after missing her night time dose of Rythmol and also having her supplemental O2 accidentally clamped for 20 minutes. She was cleaning her laundry room, realized she was very short of breath, having palpitations and realized O2 was clamped off. She presented to ED in A. fib RVR. Of note, she had symptomatic bradycardia admission in January, Cardizem and Sotalol were stopped--PPM was discussed. Switched to Rythmol and had been maintaining SR until now. Currently HR is low 100s on Cardizem gtt. Rythmol held by primary team. Echo 01/07/17 EF 60-65%, mild concentric LVH, mild LVDD, no significant valvular dysfunction. Mild TANO creatinine 1.45. Past Med Surg Social Fam HX - Past Medical History Medical history: asthma, atrial fibrillation, CHF, COPD, GERD, hypertension, migraine Psychiatric history: no psych history - Past Surgical History Surgical History: cholecystectomy, hysterectomy - Social History Smoking Status: Former smoker Smokeless Tobacco Status: No Alcohol use: none Drug use: none - Family History Sister Living Status: Hx Family Cardiac Disorders: Yes Hx Family Respiratory Disorders: Yes (copd) Mother Adopted: No Family Member Ethnicity: Non- Twin of Family Member: Yes, Fraternal Living Status: Hx Family Cardiac Disorders: Yes (HTN) Hx Family Respiratory Disorders: No Hx Family Cancer: Yes (Melanoma) Hx Family GI Disorders: Yes (Constipation) Hx Family Endocrine Disorder: No Hx Family Neuromuscular Disorders: No Hx Family Neurologic Disorders: No Hx Family HEENT Disorders: No Hx Family Autoimmune Disorders: No Father Adopted: No Family Member Ethnicity: Non- Twin of Family Member: Yes, Fraternal Living Status: Hx Family Cardiac Disorders: Yes (Thrombosis) Hx Family Respiratory Disorders: Yes (self,sister) Hx Family Cancer: No Hx Family GI Disorders: Yes (self) Hx Family Endocrine Disorder: No Hx Family Neuromuscular Disorders: No Hx Family Neurologic Disorders: No Hx Family HEENT Disorders: No Hx Family Autoimmune Disorders: No Medications and Allergies Alendronate Sodium [Fosamax] 70 mg PO WE 10/28/15 [History] Ascorbate Calcium [Vitamin C] 500 mg PO DAILY 10/28/15 [History] Cholecalciferol (Vitamin D3) [Vitamin D3] 5,000 unit PO DAILY 10/28/15 [History] Cyanocobalamin (Vitamin B-12) [Vitamin B-12] 100 mcg PO DAILY 10/28/15 [History] Tiotropium [Spiriva] 18 mcg IH HS 10/28/15 [History] Warfarin [Coumadin] 5 mg PO MOTUWE 10/28/15 [History] Dexlansoprazole [Dexilant] 60 mg PO DAILY 07/03/16 [History] Ferrous Sulfate [Iron] 325 mg PO DAILY 07/03/16 [History] Acetaminophen/Diphenhydramine [Acetaminophen Pm Caplet] 2 tab PO HS 09/09/16 [ History] Albuterol Sulfate [Proventil Hfa] 2 puff IH Q4H PRN 09/14/16 [History] Oxygen 3 l IH AD 10/24/16 [History] Albuterol Neb [Proventil Neb] 2.5 mg IH Q4H PRN #1 inhsol 11/16/16 [Rx] Fluticasone/Salmeterol [Advair 250-50 Diskus] 1 puff IH BID #1 blst.w.dev [Rx] Montelukast [Singulair] 10 mg PO DAILY 11/29/16 [History] Ropinirole HCl [Requip] 2 mg PO HS 11/29/16 [History] Acetaminophen [Tylenol] 650 mg PO Q6HR PRN #0 tablet 12/04/16 [Rx] Magnesium Oxide [Mag-Ox] 400 mg PO DAILY #30 tablet 12/04/16 [Rx] Furosemide [Lasix] 20 mg PO BID #60 01/11/17 [Rx] Propafenone [Rhythmol] 150 mg PO Q8H #90 tablet 01/11/17 [Rx] Calcium Carbonate [Calcium] 600 mg PO BID 05/08/17 [History] Fluorometholone [Fml Forte] 1 drop LEFT EYE QID 05/08/17 [History] Lisinopril [Zestril] 2.5 mg PO BID 05/08/17 [History] Warfarin [Coumadin] 2.5 mg PO SUTHFRSA 05/08/17 [History] Ciprofloxacin HCl [Cipro] 250 mg PO BID 05/18/17 [History] predniSONE [PredniSONE] See Taper PO DAILY 05/18/17 [History] 3 Allergy/AdvReac Type Severity Reaction Status Date / Time aspirin [ASA] Allergy Difficulty Verified 09/29/16 11:04 Breathing Penicillins Allergy Hives Verified 09/29/16 11:04 Sulfa (Sulfonamide Allergy Rash Verified 09/29/16 11:04 Antibiotics) All Systems Review: A 10-system review of systems was performed and is negative for pertinent findings except as documented above in the HPI. - Cardiovascular Cardiovascular: as per HPI, dyspnea at rest, dyspnea on exertion, palpitations - Respiratory Respiratory: dyspnea Physical Examination Vital Signs, Last 4 Hours Temp Pulse Resp BP Pulse Ox 05/19/17 07:44 98.3 F 94 16 131/74 98 Vital Signs Temp Pulse Resp BP Pulse Ox 05/19/17 07:44 98.3 F 94 16 131/74 98 05/19/17 04:27 98.0 F 110 17 118/78 98 05/19/17 04:25 18 98 05/18/17 22:47 97.5 F L 100 19 144/87 97 05/18/17 19:39 98.5 F 113 20 149/105 96 05/18/17 18:01 115 16 163/79 95 05/18/17 16:24 101 18 116/74 96 05/18/17 15:31 101 18 120/89 95 05/18/17 14:52 98.0 F 123 20 115/72 96 Intake and Output 05/18/17 05/19/17 05/19/17 23:59 07:59 15:59 Intake Total Balance Intake: IV Fluids Cardizem 125 MG In Dextrose 5% 100 ML @ 5 MG/HR 5 mls/hr IVC . Q24H TIM Rx#:[id number] Other: Weight 148.9 kg Blood Glucose* 199 Patient Weight 05/19/17 23:59 Weight 148.9 kg General: Conversant, No Apparent Distress HEENT: Atraumatic, Normocephaly, Mucus Membranes Moist Neck: No JVD, Normal carotid pulses Cardiac: Other (irregularly irregular) Lungs: Normal Breath Sounds, No Wheeze, Rales, Rhonchi Neuro: Alert and responsive, No focal deficits noted Abdomen: Soft, Non-Tender Skin: No rashes noted on visualized skin Musculoskeletal: No Chest Wall Tenderness Extremities: No Clubbing, No Cyanosis, No Edema, Normal Pulses Results 05/19/17 00:46 05/19/17 00:46 Lab Results 05/19/17 05/19/17 05/19/17 00:46 00:46 00:46 WBC 9.9 Hgb 10.1 L Hct 34.5 L Plt Count 216 Sodium 140 Potassium 4.6 H Chloride 103 Carbon Dioxide 29 BUN 36 H Creatinine 1.45 H Glucose 148 H Calcium 9.4 Magnesium 2.2 Short CBC 05/19/17 05/18/17 Range/Units 00:46 15:37 WBC 9.9 9.8 (4.3-11.1) K/mcL Hgb 10.1 L 10.5 L (11.5-15.4) g/dL Hct 34.5 L 36.1 (35.3-44.9) % Plt Count 216 209 (140-400) K/mcL Neutrophils # 7.5 8.7 (1.6-8.9) K/mcL BMP 05/19/17 05/18/17 Range/Units 00:46 15:37 Sodium 140 141 (136-145) mEq/L Potassium 4.6 H 5.1 H (3.5-4.5) mEq/L Chloride 103 103 (98-109) mEq/L Carbon Dioxide 29 31 H (19-29) mEq/L BUN 36 H 34 H (7-20) mg/dL Creatinine 1.45 H 1.16 H (0.57-1.11) mg/dL Glucose 148 H 148 H (70-99) mg/dL Calcium 9.4 9.6 (8.6-10.8) mg/dL Cardiac Enzymes 05/18/17 Range/Units 15:37 Troponin I 0.01 (0-0.03) ng/mL Impressions Chest X-Ray 05/18/17 14:54 IMPRESSION: No acute process. Stable cardiomegaly D/ / Charlie Soler MD / Charlie Soler MD Interpreting Provider: Charlie Soler MD Active Medications Acetaminophen (Tylenol) 650 mg PO Q6HR PRN PRN Reason: Mild Pain (1-3) Stop: 11/17/17 20:31 Ferrous Sulfate (Ferrous Sulfate) 325 mg PO DAILY TIM Stop: 11/18/17 09:01 Furosemide (Lasix) 20 mg PO BIDDIURETIC TIM Stop: 11/17/17 21:01 Last Admin: 05/18/17 22:37 Dose: 20 mg Diltiazem HCl 125 mg/ Dextrose 125 mls @ 5 mls/hr IVC .Q24H TIM; 5 MG/HR PRN Reason: Protocol Stop: 11/17/17 17:31 Last Titration: 05/18/17 20:39 Dose: 7.5 mg/hr, 7.5 mls/hr Levalbuterol HCl (Xopenex) 1.25 mg IH [id number] TIM Stop: 11/17/17 22:01 Last Admin: 05/19/17 04:25 Dose: 1.25 mg Lisinopril (Zestril) 2.5 mg PO BID [facility] PRN Reason: Protocol Stop: 11/17/17 21:01 Last Admin: 05/18/17 22:37 Dose: 2.5 mg Magnesium Oxide (Mag-Ox) 400 mg PO DAILY TIM PRN Reason: Protocol Stop: 11/18/17 09:01 Montelukast Sodium (Singulair) 10 mg PO DAILY [facility] Stop: 11/18/17 09:01 Naloxone HCl (Narcan) 0.4 mg IVP Q2MIN PRN PRN Reason: Opioid Reversal Stop: 11/17/17 20:31 Ondansetron HCl (Zofran Odt) 4 mg SL Q8HR PRN PRN Reason: Nausea And Vomiting Stop: 11/17/17 20:31 Pharmacy Profile Note (Patient Taking Own Medication) 0 each PO WE [facility] Stop: 11/22/17 20:43 Ropinirole HCl (Requip) 2 mg PO [facility] Stop: 11/17/17 21:01 Last Admin: 05/18/17 22:36 Dose: 2 mg Tiotropium [place] (Spiriva) 18 mcg IH [facility] Stop: 11/17/17 21:01 Last Admin: 05/18/17 21:24 Dose: Not Given Warfarin Sodium (Coumadin) 5 mg PO MoTuWe@1800 [facility] Stop: 11/20/17 18:01 Warfarin Sodium (Coumadin) 2.5 mg PO SuThFrSa@1800 [facility] Stop: 11/18/17 18:01 - Imaging and Cardiology Echo: report reviewed - EKG Interpretation EKG results cardiology: personally reviewed (A-Fib RVR, rate 118), other (12 hr tele AVG HR 94, A-Fib) Consult Discharge Plan - Plan Referrals: Lisbet Ray, HAND SIGN WRITER [Primary Care Provider] -
[2017-05-19] MEDS: Magnesium Oxide 400 MG TABLET PO SCH (10:19)
[2017-05-19] MEDS: Furosemide 40 MG TABLET PO SCH ×2 (10:19→16:36)
[2017-05-19] MEDS: *HR* Warfarin 2.5 MG TABLET PO SCH (16:36)
--- NOTE | 2017-05-19 17:08 | Internal Med Progress Note ---
Date of Encounter: 05/19/17 Time of Encounter: 17:06 - Assessment and plan (1) Atrial fibrillation with rapid ventricular response Current Visit: Yes Status: Acute Assessment and plan: Patient is admitted with atrial fibrillation with rapid ventricular response. Cardizem drip was started in emergency department. Heart rate is still between 100 120. Anticoagulation: Warfarin Cardiology on the board. (2) Morbid obesity Current Visit: No Status: Chronic Assessment and plan: Likely component of sleep apnea is associated with the morbid obesity. Patient will get benefit from a sleep study as outpatient. (3) Diastolic CHF Current Visit: No Status: Chronic Assessment and plan: Patient is known to have a diastolic CHF. We will continue home medications. Presently not any reservation. Qualifiers: Congestive heart failure chronicity: acute on chronic Qualified Code(s): I50.33 - Acute on chronic diastolic (congestive) heart failure (4) Hypertension Current Visit: No Status: Chronic Assessment and plan: Blood pressure is within acceptable limits. We will continue the home medications. Qualifiers: Hypertension type: essential hypertension Qualified Code(s): I10 - Essential (primary) hypertension (5) DVT prophylaxis Current Visit: No Status: Acute Assessment and plan: Coumadin. Medical decision making: This patient has a moderate to severe risk of worsening in spite of being on a appropriate treatment due to the underlying multiple comorbid conditions. - Subjective Interval history: Patient seen and examined. Chart reviewed. Patient is comfortably lying in bed. Patient's is at bedside. Patient denies chest pain, shortness of breath, nausea, vomiting, abdominal pain and diarrhea. - Constitutional Vitals: Temp Pulse Resp BP Pulse Ox 98.4 F 98 16 134/51 98 05/19/17 15:31 05/19/17 15:31 05/19/17 15:31 05/19/17 15:31 05/19/17 15:31 General appearance: Present: cooperative, morbidly obese, pleasant, no acute distress, answers questions appropriately - Head Head exam: Present: atraumatic, normocephalic - Eye Eye exam: Present: PERRL, conjuntiva pink, sclera anicteric Pupils: Present: PERRL - Neck Neck exam general surgery: Present: supple, trachea midline. Absent: lymphadenopathy - Respiratory Respiratory exam: Present: CTAB. Absent: accessory muscle use, rales, rhonchi, wheezes - Cardiovascular Cardiovascular exam: Present: RRR, +S1, +S2. Absent: diastolic murmur, gallop, rubs, systolic murmur - GI/Abdominal GI/Abdominal exam: Present: normal bowel sounds, soft, no peritoneal signs. Absent: distended, tenderness - Extremities Exam Extremities exam: Present: warm, radial pulses palpable and symmetrical. Absent : calf tenderness, cyanotic, pedal edema - Neurological Exam Neurological exam: Present: CN II-XII intact, oriented X3, no focal deficits. Absent: pronater drift, facial droop, speech deficit - Skin Skin exam: Present: dry, intact Internal Medicine: Result - Labs CBC & Chem 7: 05/19/17 00:46 05/19/17 00:46 Labs: Short CBC 05/19/17 Range/Units 00:46 WBC 9.9 (4.3-11.1) K/mcL Hgb 10.1 L (11.5-15.4) g/dL Hct 34.5 L (35.3-44.9) % Plt Count 216 (140-400) K/mcL Neutrophils # 7.5 (1.6-8.9) K/mcL BMP 05/19/17 00:46 Sodium 140 Potassium 4.6 H Chloride 103 Carbon Dioxide 29 BUN 36 H Creatinine 1.45 H Glucose 148 H Calcium 9.4 - ABG Interpretation ABG results: PT/INR, D-dimer PT 25.2 Seconds (9.4-12.1) H 05/18/17 15:37 Consult Discharge Plan - Plan Referrals: Lisbet Ray CNP [Primary Care Provider] -
[2017-05-19] MEDS ORDERED: 0.9 % Sodium Chloride 500 ML ONE (20:37)
[2017-05-19] MEDS: rOPINIRole 1 MG TABLET PO SCH (20:39)
[2017-05-19] MEDS: Tiotropium 18 MCG inhalation IH SCH (22:10)
[2017-05-20 04:10] LABS: Basophils % 0.4 %; Eosinophils # 0.1 K/mcL (0.0-0.6); Eosinophils % 0.7 %; Hematocrit 35.8 % (35.3-44.9); Hemoglobin 10.2 g/dL (11.5-15.4); Immature Granulocytes % 0.8 % (0-4); Lymphocytes # 1.5 K/mcL (0.6-4.6); Lymphocytes % 19.4 %; Mean Corpuscular HGB Conc 28.5 g/dL (31.6-35.5); Mean Corpuscular Hemoglobin 24.5 pg (28.0-33.3); Mean Corpuscular Volume 85.9 fL (83.0-100.0); Mean Platelet Volume 11.9 fL (9.4-12.4); Monocytes # 0.8 K/mcL (0.0-1.3); Monocytes % 10.9 %; Neutrophils # 5.1 K/mcL (1.6-8.9); Platelet Count 213 K/mcL (140-400); Red Blood Count 4.17 M/mcL (3.82-4.97); Red Cell Distribution Width 15.1 % (11.5-14.5); Segmented Neutrophils % 67.8 %
[2017-05-20 04:19] LABS: Albumin 3.1 g/dL (3.5-5.0); Bilirubin,Total 0.2 mg/dL (0.2-1.2); Calcium 9.1 mg/dL (8.6-10.8); Potassium 4.4 mEq/L (3.5-4.5); Total Protein 6.1 g/dL (6.0-8.3)
[2017-05-20] MEDS: Levalbuterol Neb 1.25 MG/3 ML IH SCH ×4 (04:25→21:58)
[2017-05-20 04:46] LABS: Platelet Estimate Normal (Normal)
[2017-05-20 08:45] LABS: INR 2.1; Prothrombin Time 23.4 Seconds (9.4-12.1)
--- NOTE | 2017-05-20 09:28 | Cardiology Progress Note ---
Date of Encounter: 05/20/17 Time of Encounter: 09:26 Assessment and Plan (1) Paroxysmal atrial fibrillation Current Visit: Yes Status: Chronic Recurrence of PAF likely a combination of missing a Rythmol dose and her supplemental O2 being clamped off for 20 minutes. Currently on cardizem gtt 5mg/hrwith HR 90s-low 100s. 12 hr tele AVG HR 96. Hx of bradycardia in January, cardizem and sotalol were stopped at that time and she was put on Rythmol, maintained SR until now. Resumed/increased Rythmol to 225mg [id number]. s/p 3 doses of increased dose. Daily EKGs to monitor QRS. QRS on admission 92ms, QRS today 91ms. Continue cardizem gtt for rate control for now. Leave on gtt until after DCCV as she is usually bradycardic once in SR. Anticoagulated on Coumadin, INR therapeutic. If pt does not convert to SR, plan for ZOILA/DCCV tomorrow. INR 1.8 on 05/08, so ZOILA warranted. Pt agrees with above plan. Continue to follow. Echo 01/07/17 EF 60-65%. Discussion w patient/family: The assessment and plan as outlined above was discussed with the patient and/or family members who expressed understanding and agreement. All questions were answered. Thank you for involving us in the care of your patient. Please call with any questions. I will discuss all the above with Dr. Aj Virk and make changes as necessary. Subjective Principal diagnosis: PAF Interval history: Pt still in A-Fib, still reports palpitations, intermittent dyspnea. Denies chest pain. Objective Vital Signs, Last 4 Hours Temp Pulse Resp BP Pulse Ox 05/20/17 07:23 98 F 95 16 118/56 98 Vital Signs Temp Pulse Resp BP Pulse Ox 05/20/17 07:23 98 F 95 16 118/56 98 05/20/17 04:02 88 20 135/71 96 05/20/17 00:15 97.7 F 98 18 125/72 95 05/19/17 22:12 98 05/19/17 22:11 98 05/19/17 22:10 19 98 05/19/17 19:17 98.1 F 93 18 136/65 96 05/19/17 15:55 18 97 05/19/17 15:31 98.4 F 98 16 134/51 98 05/19/17 11:07 98.2 F 91 16 114/53 100 05/19/17 10:58 16 99 05/19/17 10:51 98 Intake and Output 05/19/17 05/20/17 05/20/17 23:59 07:59 15:59 Intake Total 0 / 0 425 / 425 240 / 240 Balance 0 / 0 425 / 425 240 / 240 Intake: IV Fluids 0 / 0 125 / 125 Cardizem 125 MG In Dextrose 5% 0 / 0 125 / 125 100 ML @ 5 MG/HR 5 mls/hr IVC . Q24H TIM Rx#:[id number] Oral 0 / 0 300 / 300 240 / 240 Other: Meal Breakfast Percent of Meal Consumed 95% # Voids 1 1 Weight 148.1 kg Patient Weight 05/20/17 23:59 Weight 148.1 kg General: Conversant, No Apparent Distress HEENT: Atraumatic, Normocephaly, Mucus Membranes Moist Neck: No JVD, Normal carotid pulses Cardiac: Other (irregularly irregular) Lungs: Normal Breath Sounds, No Wheeze, Rales, Rhonchi Neuro: Alert and responsive, No focal deficits noted Abdomen: Soft, Non-Tender Skin: No rashes noted on visualized skin Musculoskeletal: No Chest Wall Tenderness Extremities: No Clubbing, No Cyanosis, No Edema, Normal Pulses Results 05/20/17 03:14 05/20/17 03:14 Lab Results 05/20/17 05/20/17 05/20/17 03:14 03:14 08:30 WBC 7.5 Hgb 10.2 L Hct 35.8 Plt Count 213 INR 2.1 Sodium 142 Potassium 4.4 Chloride 103 Carbon Dioxide 34 H BUN 42 H Creatinine 1.41 H Glucose 145 H Calcium 9.1 Total Bilirubin 0.2 AST 21 ALT 41 Alkaline Phosphatase 69 Short CBC 05/20/17 Range/Units 03:14 WBC 7.5 (4.3-11.1) K/mcL Hgb 10.2 L (11.5-15.4) g/dL Hct 35.8 (35.3-44.9) % Plt Count 213 (140-400) K/mcL Neutrophils # 5.1 (1.6-8.9) K/mcL BMP 05/20/17 Range/Units 03:14 Sodium 142 (136-145) mEq/L Potassium 4.4 (3.5-4.5) mEq/L Chloride 103 (98-109) mEq/L Carbon Dioxide 34 H (19-29) mEq/L BUN 42 H (7-20) mg/dL Creatinine 1.41 H (0.57-1.11) mg/dL Glucose 145 H (70-99) mg/dL Calcium 9.1 (8.6-10.8) mg/dL Liver Function 05/20/17 Range/Units 03:14 Total Bilirubin 0.2 (0.2-1.2) mg/dL AST 21 (5-34) Units/L ALT 41 (0-55) Units/L Alkaline Phosphatase 69 (38-126) Units/L Albumin 3.1 L (3.5-5.0) g/dL Active Medications Acetaminophen (Tylenol) 650 mg PO Q6HR PRN PRN Reason: Mild Pain (1-3) Stop: 11/17/17 20:31 Calcium Carbonate (Tums) 1,000 mg PO Q4HR PRN; Protocol PRN Reason: Heartburn Stop: 11/19/17 01:52 Last Admin: 05/20/17 02:02 Dose: 1,000 mg Ferrous Sulfate (Ferrous Sulfate) 325 mg PO DAILY TIM Stop: 11/18/17 09:01 Last Admin: 05/19/17 10:20 Dose: 325 mg Furosemide (Lasix) 20 mg PO BIDDIURETIC TIM Stop: 11/17/17 21:01 Last Admin: 05/19/17 16:36 Dose: 20 mg Diltiazem HCl 125 mg/ Dextrose 125 mls @ 5 mls/hr IVC .Q24H TIM; 5 MG/HR PRN Reason: Protocol Stop: 11/17/17 17:31 Last Admin: 05/20/17 07:16 Dose: 5 mg/hr, 5 mls/hr Levalbuterol HCl (Xopenex) 1.25 mg IH [id number] TIM Stop: 11/17/17 22:01 Last Admin: 05/20/17 04:25 Dose: Not Given Lisinopril (Zestril) 2.5 mg PO BID TIM PRN Reason: Protocol Stop: 11/17/17 21:01 Last Admin: 05/19/17 20:39 Dose: 2.5 mg Magnesium Oxide (Mag-Ox) 400 mg PO DAILY [facility] PRN Reason: Protocol Stop: 11/18/17 09:01 Last Admin: 05/19/17 10:19 Dose: 400 mg Montelukast Sodium (Singulair) 10 mg PO DAILY [facility] Stop: 11/18/17 09:01 Last Admin: 05/19/17 10:19 Dose: 10 mg Naloxone HCl (Narcan) 0.4 mg IVP Q2MIN PRN PRN Reason: Opioid Reversal Stop: 11/17/17 20:31 Ondansetron HCl (Zofran Odt) 4 mg SL Q8HR PRN PRN Reason: Nausea And Vomiting Stop: 11/17/17 20:31 Pharmacy Profile Note (Patient Taking Own Medication) 0 each PO WE [facility] Stop: 11/22/17 20:43 Propafenone HCl (Rhythmol) 225 mg PO Q8H [facility] Stop: 11/18/17 15:01 Last Admin: 05/20/17 07:15 Dose: 225 mg Ropinirole HCl (Requip) [address] [facility] Stop: 11/17/17 21:01 Last Admin: 05/19/17 20:39 Dose: 2 mg Tiotropium [place] (Spiriva) [address] [facility] Stop: 11/17/17 21:01 Last Admin: 05/19/17 22:10 Dose: 18 mcg Warfarin Sodium (Coumadin) 5 mg PO MoTuWe@1800 [facility] Stop: 11/20/17 18:01 Warfarin Sodium (Coumadin) 2.5 mg PO SuThFrSa@1800 [facility] Stop: 11/18/17 18:01 Last Admin: 05/19/17 16:36 Dose: 2.5 mg - EKG Interpretation EKG results cardiology: other (12 hr tele AVG HR 96, A-Fib.) Consult Discharge Plan - Plan Referrals: Lisbet Ray, CONTRACT PROGRAMMER [Primary Care Provider] -
[2017-05-20] MEDS: Furosemide 40 MG TABLET PO SCH ×2 (10:47→15:39)
[2017-05-20] MEDS: Magnesium Oxide 400 MG TABLET PO SCH (10:47)
--- NOTE | 2017-05-20 11:09 | Electrocardiograph Report ---
[place] [id number] Test Date: 2017-05-18 Pat Name: Alyssa Guevara Department: 104 Room: [id number] Gender: F [employer]: PEDRO : 1950 Requested By: Aj Hernandez Order Number: [id number] Reading MD: Aj Virk Measurements Intervals [place] Rate: 118 P: VA: 0 QRS: 44 QRSD: 92 T: 2 QT: 299 QTc: 369 Interpretive Statements ATRIAL FIBRILLATION WITH RAPID VENTRICULAR RESPONSE POSSIBLE RIGHT VENTRICULAR CONDUCTION DELAY ABNORMAL RHYTHM ECG Electronically Signed On 05-20-2017 11:08:16 EDT by Aj Virk
--- NOTE | 2017-05-20 12:28 | Internal Med Progress Note ---
Date of Encounter: 05/20/17 Time of Encounter: 12:26 - Assessment and plan (1) Atrial fibrillation with rapid ventricular response Current Visit: Yes Status: Acute Assessment and plan: Patient is admitted with atrial fibrillation with rapid ventricular response. Cardizem drip was started in emergency department. Heart rate is still between 100 120. Anticoagulation: Warfarin Cardiology on the board. 05/20/2017 Noted that patient is evaluated by cardiology. As per cardiology. The patient does not get back to normal sinus rhythm by today then the plan is to do ZOILA and cardioversion tomorrow. Patient is aware of the plan and patient is in agreement with the same plan (2) Morbid obesity Current Visit: No Status: Chronic Assessment and plan: Likely component of sleep apnea is associated with the morbid obesity. Patient will get benefit from a sleep study as outpatient. (3) Diastolic CHF Current Visit: No Status: Chronic Assessment and plan: Patient is known to have a diastolic CHF. We will continue home medications. Presently not any reservation. Qualifiers: Congestive heart failure chronicity: acute on chronic Qualified Code(s): I50.33 - Acute on chronic diastolic (congestive) heart failure (4) Hypertension Current Visit: No Status: Chronic Assessment and plan: Blood pressure is within acceptable limits. We will continue the home medications. Qualifiers: Hypertension type: essential hypertension Qualified Code(s): I10 - Essential (primary) hypertension (5) DVT prophylaxis Current Visit: No Status: Acute Assessment and plan: Coumadin. Medical decision making: This patient has a moderate to severe risk of worsening in spite of being on a appropriate treatment due to the underlying multiple comorbid conditions. - Subjective Interval history: Patient seen and examined. Chart reviewed. Patient is comfortably lying in bed. Patient's is at bedside. Patient denies chest pain, shortness of breath, nausea, vomiting, abdominal pain and diarrhea. 05/20/2017 Patient seen and examined. Chart reviewed. Patient is comfortably lying in bed. Patient denies any chest pain, shortness of breath, nausea, vomiting, abdominal pain or diarrhea. - Constitutional Vitals: Temp Pulse Resp BP Pulse Ox 98 F 96 16 116/60 95 05/20/17 11:20 05/20/17 11:20 05/20/17 11:20 05/20/17 11:20 05/20/17 11:20 General appearance: Present: cooperative, morbidly obese, pleasant, no acute distress, answers questions appropriately - Head Head exam: Present: atraumatic, normocephalic - Eye Eye exam: Present: PERRL, conjuntiva pink, sclera anicteric Pupils: Present: PERRL - Neck Neck exam general surgery: Present: supple, trachea midline. Absent: lymphadenopathy - Respiratory Respiratory exam: Present: CTAB. Absent: accessory muscle use, rales, rhonchi, wheezes - Cardiovascular Cardiovascular exam: Present: RRR, +S1, +S2. Absent: diastolic murmur, gallop, rubs, systolic murmur - GI/Abdominal GI/Abdominal exam: Present: normal bowel sounds, soft, no peritoneal signs. Absent: distended, tenderness - Extremities Exam Extremities exam: Present: warm, radial pulses palpable and symmetrical. Absent : calf tenderness, cyanotic, pedal edema - Neurological Exam Neurological exam: Present: CN II-XII intact, oriented X3, no focal deficits. Absent: pronater drift, facial droop, speech deficit - Skin Skin exam: Present: dry, intact Internal Medicine: Result - Labs CBC & Chem 7: 05/20/17 03:14 05/20/17 03:14 Labs: Short CBC 05/20/17 Range/Units 03:14 WBC 7.5 (4.3-11.1) K/mcL Hgb 10.2 L (11.5-15.4) g/dL Hct 35.8 (35.3-44.9) % Plt Count 213 (140-400) K/mcL Neutrophils # 5.1 (1.6-8.9) K/mcL BMP 05/20/17 03:14 Sodium 142 Potassium 4.4 Chloride 103 Carbon Dioxide 34 H BUN 42 H Creatinine 1.41 H Glucose 145 H Calcium 9.1 Liver Function 05/20/17 Range/Units 03:14 Total Bilirubin 0.2 (0.2-1.2) mg/dL AST 21 (5-34) Units/L ALT 41 (0-55) Units/L Alkaline Phosphatase 69 (38-126) Units/L Albumin 3.1 L (3.5-5.0) g/dL - ABG Interpretation ABG results: PT/INR, D-dimer PT 23.4 Seconds (9.4-12.1) H 10/15/17 08:30 Consult Discharge Plan - Plan Referrals: Lisbet Ray, MANOLO [Primary Care Provider] -
--- NOTE | 2017-05-20 12:44 | Electrocardiograph Report ---
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
[2017-05-20] MEDS: *HR* Warfarin 2.5 MG TABLET PO SCH (15:41)
[2017-05-20] MEDS: rOPINIRole 1 MG TABLET PO SCH (19:11)
[2017-05-20] MEDS ORDERED: Melatonin 3 MG TABLET PO SCH (21:45)
[2017-05-20] MEDS: Tiotropium 18 MCG inhalation IH SCH (21:59)
[2017-05-21 03:28] LABS: Basophils % 0.3 %; Eosinophils # 0.1 K/mcL (0.0-0.6); Eosinophils % 1.6 %; Hematocrit 34.8 % (35.3-44.9); Immature Granulocytes % 0.8 % (0-4); Lymphocytes # 1.7 K/mcL (0.6-4.6); Lymphocytes % 19.4 %; Mean Corpuscular HGB Conc 28.7 g/dL (31.6-35.5); Mean Corpuscular Hemoglobin 24.3 pg (28.0-33.3); Mean Corpuscular Volume 84.7 fL (83.0-100.0); Mean Platelet Volume 11.8 fL (9.4-12.4); Monocytes % 11.6 %; Neutrophils # 5.9 K/mcL (1.6-8.9); Platelet Count 207 K/mcL (140-400); Red Blood Count 4.11 M/mcL (3.82-4.97); Segmented Neutrophils % 66.3 %
[2017-05-21 03:46] LABS: Albumin 3.1 g/dL (3.5-5.0); Bilirubin,Total 0.2 mg/dL (0.2-1.2); Calcium 9.5 mg/dL (8.6-10.8); Potassium 4.6 mEq/L (3.5-4.5); Total Protein 6.1 g/dL (6.0-8.3)
[2017-05-21 03:51] LABS: Platelet Estimate Normal (Normal)
[2017-05-21 03:52] LABS: Hypochromasia Present (Not Present)
[2017-05-21] MEDS: Levalbuterol Neb 1.25 MG/3 ML IH SCH ×4 (04:38→22:51)
--- NOTE | 2017-05-21 08:41 | Internal Med Progress Note ---
<Breanna Jennings - Last Filed: 05/21/17 08:40> Date of Encounter: 05/21/17 Time of Encounter: 08:41 - Constitutional Vitals: Temp Pulse Resp BP Pulse Ox 98.2 F 96 18 140/73 99 05/21/17 06:57 05/21/17 06:57 05/21/17 06:57 05/21/17 06:57 05/21/17 06:57 General appearance: Present: cooperative, morbidly obese, pleasant, no acute distress, answers questions appropriately Internal Medicine: Result - Labs CBC & Chem 7: 05/21/17 02:50 05/21/17 02:50 Labs: Short CBC 05/21/17 Range/Units 02:50 WBC 8.9 (4.3-11.1) K/mcL Hgb 10.0 L (11.5-15.4) g/dL Hct 34.8 L (35.3-44.9) % Plt Count 207 (140-400) K/mcL Neutrophils # 5.9 (1.6-8.9) K/mcL BMP 05/21/17 02:50 Sodium 141 Potassium 4.6 H Chloride 102 Carbon Dioxide 30 H BUN 46 H Creatinine 1.27 H Glucose 128 H Calcium 9.5 Liver Function 05/21/17 Range/Units 02:50 Total Bilirubin 0.2 (0.2-1.2) mg/dL AST 17 (5-34) Units/L ALT 41 (0-55) Units/L Alkaline Phosphatase 74 (38-126) Units/L Albumin 3.1 L (3.5-5.0) g/dL - ABG Interpretation ABG results: PT/INR, D-dimer PT 23.4 Seconds (9.4-12.1) H 05/20/17 08:30 Consult Discharge Plan - Plan Instructions: Atrial Fibrillation (DC), Cardioversion (DC), Cardioversion (GEN) , Chronic Obstructive Pulmonary Disease (DC) Referrals: Lisbte Ray CNP [Primary Care Provider] - 06/04/17 8:30 am <Adolfo Shukla - Last Filed: 05/23/17 20:17> Date of Encounter: 05/23/17 - Assessment and plan (1) Atrial fibrillation with rapid ventricular response Status: Acute (2) Morbid obesity Status: Chronic (3) Diastolic CHF Status: Chronic Assessment and plan: Patient is known to have a diastolic CHF. We will continue home medications. Presently not any reservation. Qualifiers: Congestive heart failure chronicity: acute on chronic Qualified Code(s): I50.33 - Acute on chronic diastolic (congestive) heart failure (4) Hypertension Status: Chronic Qualifiers: Hypertension type: essential hypertension Qualified Code(s): I10 - Essential (primary) hypertension (5) DVT prophylaxis Status: Acute - Constitutional Vitals: Temp Pulse Resp BP Pulse Ox 98.5 F 80 18 121/47 99 05/21/17 15:00 05/21/17 15:00 05/21/17 15:00 05/21/17 15:00 05/21/17 15:00 Internal Medicine: Result - Labs CBC & Chem 7: 05/21/17 02:50 05/21/17 02:50 Labs: Short CBC 05/21/17 Range/Units 02:50 WBC 8.9 (4.3-11.1) K/mcL Hgb 10.0 L (11.5-15.4) g/dL Hct 34.8 L (35.3-44.9) % Plt Count 207 (140-400) K/mcL Neutrophils # 5.9 (1.6-8.9) K/mcL BMP 05/21/17 02:50 Sodium 141 Potassium 4.6 H Chloride 102 Carbon Dioxide 30 H BUN 46 H Creatinine 1.27 H Glucose 128 H Calcium 9.5 Liver Function 05/21/17 Range/Units 02:50 Total Bilirubin 0.2 (0.2-1.2) mg/dL AST 17 (5-34) Units/L ALT 41 (0-55) Units/L Alkaline Phosphatase 74 (38-126) Units/L Albumin 3.1 L (3.5-5.0) g/dL - ABG Interpretation ABG results: PT/INR, D-dimer PT 23.4 Seconds (9.4-12.1) H 05/20/17 08:30 - Impressions Impressions Transesophageal w/Cardioversion 05/21/17 09:35 Impressions: Successful DCCV of atrial fibrillation to normal sinus rhythm. No evidence for thrombus on ZOILA. Medication Given: Time Medication Dose Units Route 10:20 Versed 2 mg IV 10:20 Fentanyl 25 mcg IV 10:25 Versed 2 mg IV 10:25 Fentanyl 25 mcg IV 10:35 Fentanyl 25 mcg IV Findings: Study Quality * Technically adequate exam. ECG Findings * Atrial fib without ectopy Left Atrium * No thrombus present. * LA appendage is normal in appearance. * The LA appendage flow velocity is normal. No thromubs. Right Atrium * No thrombus present. - Attending Attestation I examined this patient and my medical decision-making was reviewed with the Resident Physician. I agree with the documented findings, disposition and treatment plan as described except to the extent set forth below.
[2017-05-21] MEDS ORDERED: 0.9 % Sodium Chloride 500 ML IVC ONE (09:11)
[2017-05-21] MEDS ORDERED: Tetracaine/Benzocaine/Butamben 200MG/SPRAY (100SPY/BOT) MM ONE (09:11)
--- NOTE | 2017-05-21 09:44 | Event Note ---
Date of Encounter: 05/21/17 Time of Encounter: 09:43 - Cardiology Event Note Pt remains in A-Fib, has had 6 doses of increased Rythmol 225mg Q8hrs. Still on Cardizem gtt at 5mg/hr HR 80s-90s. Plan for ZOILA/DCCV today in attempt to restore SR. EKG reviewed--QRS stable, 95ms this AM.
[2017-05-21] MEDS: *HR* FentaNYL (PF) 100 MCG/2 ML VIAL IVP PRN ×3 (10:20→10:35)
[2017-05-21] MEDS: *HR* Midazolam HCl 5 MG/5 ML VIAL IVP PRN ×2 (10:20→10:25)
[2017-05-21] MEDS: Furosemide 40 MG TABLET PO SCH ×2 (11:43→17:30)
[2017-05-21] MEDS: Magnesium Oxide 400 MG TABLET PO SCH (11:44)
[2017-05-21] MEDS ORDERED: Diltiazem CD (24hr) 120 MG CAPSULE PO SCH (12:15)
--- NOTE | 2017-05-21 12:31 | Event Note ---
Date of Encounter: 05/21/17 Time of Encounter: 12:30 - Cardiology Event Note S/P successful ZOILA/DCCV, now in SR, QRS stable and at baseline, 95ms. HR is tolerating cardizem gtt at 5mg/hr--HR 70s, sinus. Start PO Cardizem CD 120mg daily. Hx of bradycardia when on sotalol and cardizem. Instructed to hold cardizem if HR <100. Continue increased Rythmol dose of 225mg TID. Follow-up as outpt in 2 weeks. Will coordinate. Cardiology signing off. Reconsult PRN.
[2017-05-21 15:03] VITALS: BP 121/47
[2017-05-21] MEDS ORDERED: *HR* Warfarin 5 MG TABLET PO SCH (18:00)
--- NOTE | 2017-05-21 18:12 | Electrocardiograph Report ---
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
--- NOTE | 2017-05-21 18:49 | Discharge Summary ---
<Adolfo Shukla P - Last Filed: 05/21/17 20:44> Date of Encounter: 05/21/17 - Discharge Diagnosis (1) Atrial fibrillation with rapid ventricular response Status: Acute (2) Morbid obesity Status: Chronic (3) Diastolic CHF Status: Chronic Qualifiers: Congestive heart failure chronicity: acute on chronic Qualified Code(s): I50.33 - Acute on chronic diastolic (congestive) heart failure (4) Hypertension Status: Chronic Qualifiers: Hypertension type: essential hypertension Qualified Code(s): I10 - Essential (primary) hypertension (5) DVT prophylaxis Status: Acute - Discharge Medications Home Medications: Alendronate Sodium [Fosamax] 70 mg PO WE 10/28/15 [History] Ascorbate Calcium [Vitamin C] 500 mg PO DAILY 10/28/15 [History] Cholecalciferol (Vitamin D3) [Vitamin D3] 5,000 unit PO DAILY 10/28/15 [History] Cyanocobalamin (Vitamin B-12) [Vitamin B-12] 100 mcg PO DAILY 10/28/15 [History] Tiotropium [Spiriva] 18 mcg IH HS 10/28/15 [History] Warfarin [Coumadin] 5 mg PO MOTUWE 10/28/15 [History] Dexlansoprazole [Dexilant] 60 mg PO DAILY 07/03/16 [History] Ferrous Sulfate [Iron] 325 mg PO DAILY 07/03/16 [History] Acetaminophen/Diphenhydramine [Acetaminophen Pm Caplet] 2 tab PO HS 09/09/16 [ History] Albuterol Sulfate [Proventil Hfa] 2 puff IH Q4H PRN 09/14/16 [History] Oxygen 3 l IH AD 10/24/16 [History] Albuterol Neb [Proventil Neb] 2.5 mg IH Q4H PRN #1 inhsol 11/16/16 [Rx] Fluticasone/Salmeterol [Advair 250-50 Diskus] 1 puff IH BID #1 blst.w.dev [Rx] Montelukast [Singulair] 10 mg PO DAILY 11/29/16 [History] Ropinirole HCl [Requip] 2 mg PO HS 11/29/16 [History] Acetaminophen [Tylenol] 650 mg PO Q6HR PRN #0 tablet 12/04/16 [Rx] Magnesium Oxide [Mag-Ox] 400 mg PO DAILY #30 tablet 12/04/16 [Rx] Furosemide [Lasix] 20 mg PO BID #60 01/11/17 [Rx] Calcium Carbonate [Calcium] 600 mg PO BID 05/08/17 [History] Fluorometholone [Fml Forte] 1 drop LEFT EYE QID 05/08/17 [History] Lisinopril [Zestril] 2.5 mg PO BID 05/08/17 [History] Warfarin [Coumadin] 2.5 mg PO SUTHFRSA 05/08/17 [History] Ciprofloxacin HCl [Cipro] 250 mg PO BID 05/18/17 [History] predniSONE [PredniSONE] See Taper PO DAILY 05/18/17 [History] Diltiazem CD (24hr) [Cardizem CD] 120 mg PO DAILY cap.er.24h 05/21/17 [Rx] Propafenone [Rhythmol] 225 mg PO Q8H tablet 05/21/17 [Rx] Allergies/Adverse Reactions: 3 Allergy/AdvReac Type Severity Reaction Status Date / Time aspirin [ASA] Allergy Difficulty Verified 09/29/16 11:04 Breathing Penicillins Allergy Hives Verified 09/29/16 11:04 Sulfa (Sulfonamide Allergy Rash Verified 09/29/16 11:04 Antibiotics) Procedures/tests Complete & Pending: Procedures Performed prior 72 hours Category Date Time Status EKG [ECG 12 lead ECG] [ECG] AM 0600 Y 05/20/17 06:00 Completed EKG [ECG 12 lead ECG] [ECG] AM 0600 Y 05/21/17 06:00 Completed EV catina guided cardioversion Routine Y 05/21/17 09:35 Completed Date of admission: 05/18/17 21:02 Primary care physician: Lisbet Ray, Consults: 05/18/17 22:24 Consult to Bottle Capper [CONS] Routine Reason for SW Consult: oxygen therapy at home - Patient Status Disposition: Home, Self-Care Condition: Fair - Discharge Instructions Instructions: Atrial Fibrillation (DC), Cardioversion (DC), Cardioversion (GEN) , Chronic Obstructive Pulmonary Disease (DC) Follow Up With: Lisbet Ray, MANOLO [Primary Care Provider] - 06/04/17 8:30 am Hospital course: Ms. Guevara is a 66 year old female - Time Spent with Patient Total time spent providing and/or coordinating discharge services: - Constitutional Vitals: Temp Pulse Resp BP Pulse Ox 98.5 F 80 18 121/47 99 05/21/17 15:00 05/21/17 15:00 05/21/17 15:00 05/21/17 15:00 05/21/17 15:00 - Attending Attestation I examined this patient and my medical decision-making was reviewed with the Resident Physician. I agree with the documented findings, disposition and treatment plan as described except to the extent set forth below. <Breanna Jennings - Last Filed: 05/21/17 22:32> Date of Encounter: 05/21/17 Time of Encounter: 18:36 - Discharge Diagnosis (1) Atrial fibrillation with rapid ventricular response Priority: Primary Status: Acute (2) Diastolic CHF Priority: Secondary Status: Chronic Qualifiers: Congestive heart failure chronicity: acute on chronic Qualified Code(s): I50.33 - Acute on chronic diastolic (congestive) heart failure (3) Hypertension Priority: Secondary Status: Chronic Qualifiers: Hypertension type: essential hypertension Qualified Code(s): I10 - Essential (primary) hypertension (4) DVT prophylaxis Priority: Secondary Status: Acute Procedures/tests Complete & Pending: Procedures Performed prior 72 hours Category Date Time Status EKG [ECG 12 lead ECG] [ECG] AM 0600 Y 05/20/17 06:00 Completed EKG [ECG 12 lead ECG] [ECG] AM 0600 Y 05/21/17 06:00 Completed EV catina guided cardioversion Routine Y 05/21/17 09:35 Completed Date of admission: 05/18/17 21:02 Primary care physician: Lisbet Ray, Consults: 05/18/17 22:24 Consult to Bottle Capper [CONS] Routine Reason for SW Consult: oxygen therapy at home - Patient Status Functional capacity at discharge: independent ambulation Overall status at discharge: patient is progressing back to baseline - Diet and Activity Activity: increase activity as tolerated, resume usual activities as tolerated Diet: advance to your usual diet Hospital course: Ms. Guevara is a 66 year old female who presents to ED with a complaint of palpitations. PMH of paroxysmal AFib, HTN, CHF, COPD. She c/o of increased SOB x 1 day. She admitted to missing a dose of rythmol the day before. She denied any chest pain, nausea, vomiting, diaphoresis, edema. In the ED, her vital signs were notable for HR 123. Labs were significant for therapeutic INR of 2.3 , K of 5.1, CO2 of 31, BUN/Cr of 34/1.16, normal TSH, negative troponin. CXR showed no acute process. AFib with RVR and HR 118 seen on EKG. She was admitted to medicine service for AFib with RVR. Patient gradually improved over the course of her admission. She was started on a Cardizem drip, cardiology was consulted, and rythmol was started. Patient received CATINA cardioversion for persistent rapid ventricular response, she tolerated the procedure well and converted to NSR with one attempt. Cardizem was transitioned to PO form and rythmol dose increased to 225 mg TID. Patient medically stable on day of discharge, vital signs showing sinus rhythm with HR 80. She was tolerating home O2 needs without complaints. Labs trending back to baseline. She was instructed to follow up with her PCP and cardiology after discharge. She was also instructed to take all of her medications as prescribed. All questions were answered prior to discharge home. - Time Spent with Patient Total time spent providing and/or coordinating discharge services: - Constitutional Vitals: Temp Pulse Resp BP Pulse Ox 98.5 F 80 18 121/47 99 05/21/17 15:00 05/21/17 15:00 05/21/17 15:00 05/21/17 15:00 05/21/17 15:00 General appearance: Present: cooperative, morbidly obese, pleasant, no acute distress, answers questions appropriately Exam: Gen: Vitals noted. No acute distress. AAOx3 HEENT: EOMI, normocephalic, atraumatic, MMM Neck: Supple. Normal ROM. Cardiac: RRR, no murmur, +S1/S2 Pulmonary: CTAB; no wheezes or ales, no respiratory distress Abdomen: soft, nontender, nondistended, BS noted, no guarding Extremities: b/l LE edema Lt > Rt, no cyanosis or clubbing Neuro: AAOx3, moves all extremities, no focal deficits, no speech deficits Psych: Appropriately answers questions, cooperative, appropriate behavior
[2017-05-21] MEDS: Tiotropium 18 MCG inhalation IH SCH (22:51)
[2017-05-23] MEDS ORDERED: (Alendronate Sodium [Fosamax] 70 MG) PO SCH (20:42)
== END 2017-05-21 20:30 | disposition home or self-care (01) | DRG 308 ==
LOC: EMEROO 14:36 → 2NENU 14:36
PROVIDERS: ADMIT Internal Medicine; ATTEND Internal Medicine

== ENCOUNTER 2017-07-19 14:00 | Inpatient (IN) ==
--- NOTE | 2017-07-19 14:33 | Emergency Department Note ---
Disposition Clinical Impression: Acute exacerbation of chronic obstructive airways disease Disposition: Admitted As Inpatient Condition: Fair Forms: ED Satisfaction Letter Time of Disposition: 15:38 SOB HPI - General Chief Complaint: ED Shortness of Breath/Dyspnea Stated Complaint: ESTEFANI Time Seen by Provider: 07/19/17 14:12 Source: patient Mode of arrival: ambulatory Limitations: no limitations Nursing Notes Reviewed: Yes Vital Signs Reviewed: Yes - History of Present Illness 66-year-old female who comes in with a history of CHF COPD and asthma with increasing shortness of breath. She states that she says she's had a wet cough. Pt Subjective Complaint: shortness of breath, cough Onset (ago): day(s) Context: recent illness Severity: moderate Consistency/Duration: constant Improves with: nothing Worsens with: exertion Known history of: COPD, asthma, congestive heart failure Associated symptoms: Reports: chest pain (Sometimes with cough), cough, wheezing. Denies: fever Treatment prior to arrival: oxygen, bronchodilator Cough present: Yes Cough Description: Involuntary Cough Frequency: Intermittent Sputum Amount: None - Related Data Home Medications Medication Instructions Recorded Confirmed Alendronate Sodium [Fosamax] 70 mg PO WE 10/28/15 05/18/17 Ascorbate Calcium [Vitamin C] 500 mg PO DAILY 10/28/15 05/18/17 Cholecalciferol (Vitamin D3) 5,000 unit PO DAILY 10/28/15 05/18/17 [Vitamin D3] Cyanocobalamin (Vitamin B-12) 100 mcg PO DAILY 10/28/15 05/18/17 [Vitamin B-12] Tiotropium [Spiriva] 18 mcg IH HS 10/28/15 05/18/17 Warfarin [Coumadin] 5 mg PO MOTUWE 10/28/15 05/18/17 Dexlansoprazole [Dexilant] 60 mg PO DAILY 07/03/16 05/18/17 Ferrous Sulfate [Iron] 325 mg PO DAILY 07/03/16 05/18/17 Acetaminophen/Diphenhydramine 2 tab PO HS 09/09/16 05/18/17 [Acetaminophen Pm Caplet] Albuterol Sulfate [Proventil Hfa] 2 puff IH Q4H PRN 09/14/16 05/18/17 Oxygen 3 l IH AD 10/24/16 05/18/17 Montelukast [Singulair] 10 mg PO DAILY 11/29/16 05/18/17 Ropinirole HCl [Requip] 2 mg PO HS 11/29/16 05/18/17 Calcium Carbonate [Calcium] 600 mg PO BID 05/08/17 05/18/17 Fluorometholone [Fml Forte] 1 drop LEFT EYE QID 05/08/17 05/18/17 Lisinopril [Zestril] 2.5 mg PO BID 05/08/17 05/18/17 Warfarin [Coumadin] 2.5 mg PO SUTHFRSA 05/08/17 05/18/17 Ciprofloxacin HCl [Cipro] 250 mg PO BID 05/18/17 05/18/17 predniSONE [PredniSONE] See Taper PO DAILY 05/18/17 05/18/17 Previous Rx's Medication Instructions Recorded Albuterol Neb [Proventil Neb] 2.5 mg IH Q4H PRN #1 inhsol 11/16/16 Fluticasone/Salmeterol [Advair 1 puff IH BID #1 blst.w.dev 11/16/16 250-50 Diskus] Acetaminophen [Tylenol] 650 mg PO Q6HR PRN #0 tablet 12/04/16 Magnesium Oxide [Mag-Ox] 400 mg PO DAILY #30 tablet 12/04/16 Furosemide [Lasix] 20 mg PO BID #60 01/11/17 Diltiazem CD (24hr) [Cardizem CD] 120 mg PO DAILY cap.er.24h 05/21/17 Propafenone [Rhythmol] 225 mg PO Q8H tablet 05/21/17 Doxycycline 100 mg PO BID #14 capsule 06/24/17 PredniSONE [Deltasone] 60 mg PO DAILY #15 tablet 06/24/17 Allergies Allergy/AdvReac Type Severity Reaction Status Date / Time aspirin [ASA] Allergy Difficulty Verified 07/19/17 14:05 Breathing Penicillins Allergy Hives Verified 07/19/17 14:05 Sulfa (Sulfonamide Allergy Rash Verified 07/19/17 14:05 Antibiotics) Constitutional: Denies: fever, chills, weakness, weight change Eyes: Denies: eye pain, eye discharge, vision change ENT ED: Denies: ear pain, throat pain, dental pain, hearing loss, epistaxis, congestion, dysphagia Cardiovascular: Denies: chest pain, palpitations, dyspnea on exertion, edema, syncope Respiratory: Reports: dyspnea, wheezes. Denies: cough, hemoptysis, stridor Gastrointestinal: Denies: abdominal pain, nausea, vomiting, diarrhea, constipation, hematemesis, melena, hematochezia Genitourinary: Denies: dysuria, frequency, hematuria, discharge Musculoskeletal: Denies: back pain, neck pain, arthralgia, myalgia Integumentary: Denies: rash, abrasion, lesions Neurological: Denies: headache, weakness, numbness, paresthesias, confusion, abnormal gait, vertigo Psychiatric: Denies: anxiety, depression, suicidal thoughts, homicidal thoughts , auditory hallucinations, visual hallucinations Endocrine: Denies: fatigue Hematological/Lymphatic: Denies: easy bleeding, easy bruising Allergic/Immunologic: Denies: facial swelling, urticaria Past Medical History - Past Medical History Medical history: Reports: asthma, atrial fibrillation, CHF, COPD, GERD, hypertension, migraine Surgical history: Reports: cholecystectomy, hysterectomy Psychiatric history: Reports: no psych history EMBEDDED SOFTWARE MANAGER history: Reports: no EMBEDDED SOFTWARE 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 history - Social History Smoking Status: Former smoker Smokeless Tobacco Status: No Alcohol use: Reports: none Drug use: Reports: none Physical Exam - General Limitations: no limitations General appearance: alert, in no apparent distress - Head Head exam: atraumatic, normocephalic, normal inspection - Eye Eye exam: Present: normal appearance, PERRL, EOMI - ENT ENT exam: normal exam, normal oropharynx, mucous membranes moist - Neck Neck exam: Present: normal inspection, full ROM, trachea midline - Chest Chest inspection: Present: normal inspection, symmetric chest wall rise - Respiratory Respiratory exam: Present: wheezes, accessory muscle use, prolonged expiratory phase - Cardiovascular Cardiovascular exam: Present: regular rate, normal rhythm, normal heart sounds - Abdominal Exam Abdominal exam: Present: soft, Non-Tender. Absent: tenderness, distention, guarding, rebound, rigidity - Extremities Exam Extremities exam: Present: normal inspection, full ROM. Absent: tenderness, pedal edema - Expanded Lower Extremity Exam Neurovascular/Tendon exam: Present: normal capillary refill, pulse deficit Gait: not tested/not observed - Back Exam Back exam: Present: normal inspection, full ROM. Absent: tenderness - Neurological Exam Neurological exam: Present: alert, oriented X3 - Psychiatric Psychiatric exam: Present: normal affect, normal mood - Skin Skin exam: Present: warm, dry, intact, normal color Course - Reevaluation(s) Reevaluation #1: 66-year-old with history COPD CHF and asthma comes in with increasing shortness of breath. She has diffuse wheezing on exam. Chest x-ray was negative for acute findings her BNP is normal. Patient will be admitted for exacerbation of COPD. Time: 15:38 - Consultations Consultation #1: Discussed with , admit. Time: 15:38 Vital Signs Temperature 98.7 F 07/19/17 14:01 Pulse Rate 94 07/19/17 14:01 Respiratory Rate 26 07/19/17 14:01 Blood Pressure 147/77 07/19/17 14:01 O2 Sat by Pulse Oximetry 94 07/19/17 14:01 Temperature 98.7 F 07/19/17 14:01 Pulse Rate 94 07/19/17 14:01 Respiratory Rate 26 07/19/17 14:01 Blood Pressure 147/77 07/19/17 14:01 O2 Sat by Pulse Oximetry 99 07/19/17 14:31 Oxygen Delivery Oxygen Delivery Nasal Cannula Shortness of Breath/Dyspnea - Lab Data Result diagrams: 07/19/17 14:45 07/19/17 14:45 Lab Results 07/19/17 07/19/17 07/19/17 Range/Units 14:45 14:45 14:45 WBC 6.2 (4.3-11.1) K/mcL RBC 3.68 L (3.82-4.97) M/mcL Hgb 9.1 L (11.5-15.4) g/dL Hct 31.7 L (35.3-44.9) % MCV 86.1 (83.0-100.0) fL MCH 24.7 L (28.0-33.3) pg MCHC 28.7 L (31.6-35.5) g/dL RDW 15.6 H (11.5-14.5) % Plt Count 187 (140-400) K/mcL MPV 11.0 (9.4-12.4) fL Seg Neutrophils % 76.0 % Band Neutrophils % 2.0 (0-4) % Lymphocytes % 12.0 % Monocytes % 8.0 % Eosinophils % 2.0 % Neutrophils # 4.8 (1.6-8.9) K/mcL Lymphocytes # 0.7 (0.6-4.6) K/mcL Monocytes # 0.5 (0.0-1.3) K/mcL Eosinophils # 0.1 (0.0-0.6) K/mcL Platelet Estimate Normal (Normal) Large Platelets (Not Present) Hypochromasia Present A (Not Present) Microcytosis Present A (Not Present) Sodium 144 (136-145) mEq/L Potassium 4.6 H (3.5-4.5) mEq/L Chloride 97 L (98-109) mEq/L Carbon Dioxide 44 H* (19-29) mEq/L BUN 22 H (7-20) mg/dL Creatinine 0.85 (0.57-1.11) mg/dL Est GFR ( Amer) > 60 (> 60) Est GFR (Non-Af Amer) > 60 (> 60) BUN/Creatinine Ratio 26 (6-26) Glucose 105 H (70-99) mg/dL Calculated Osmolality 302 H (280-300) Lactic Acid 0.6 (0.5-2.2) mmol/L Calcium 10.1 (8.6-10.8) mg/dL Troponin I (0-0.03) ng/mL B-Natriuretic Peptide (0-100) pg/mL 07/19/17 07/19/17 Range/Units 14:45 14:45 WBC (4.3-11.1) K/mcL RBC (3.82-4.97) M/mcL Hgb (11.5-15.4) g/dL Hct (35.3-44.9) % MCV (83.0-100.0) fL MCH (28.0-33.3) pg MCHC (31.6-35.5) g/dL RDW (11.5-14.5) % Plt Count (140-400) K/mcL MPV (9.4-12.4) fL Seg Neutrophils % % Band Neutrophils % (0-4) % Lymphocytes % % Monocytes % % Eosinophils % % Neutrophils # (1.6-8.9) K/mcL Lymphocytes # (0.6-4.6) K/mcL Monocytes # (0.0-1.3) K/mcL Eosinophils # (0.0-0.6) K/mcL Platelet Estimate (Normal) Large Platelets (Not Present) Hypochromasia (Not Present) Microcytosis (Not Present) Sodium (136-145) mEq/L Potassium (3.5-4.5) mEq/L Chloride (98-109) mEq/L Carbon Dioxide (19-29) mEq/L BUN (7-20) mg/dL Creatinine (0.57-1.11) mg/dL Est GFR ( Amer) (> 60) Est GFR (Non-Af Amer) (> 60) BUN/Creatinine Ratio (6-26) Glucose (70-99) mg/dL Calculated Osmolality (280-300) Lactic Acid (0.5-2.2) mmol/L Calcium (8.6-10.8) mg/dL Troponin I 0.01 (0-0.03) ng/mL B-Natriuretic Peptide 37 (0-100) pg/mL - EKG Data EKG attestation: Yes I reviewed and interpreted this EKG. EKG shows normal: Reports: sinus rhythm Rate: Reports: normal Rhythm: Reports: NSR Interpretation: Reports: no acute changes
[2017-07-19 14:54] LABS: Hematocrit 31.7 % (35.3-44.9); Hemoglobin 9.1 g/dL (11.5-15.4); Mean Corpuscular HGB Conc 28.7 g/dL (31.6-35.5); Mean Corpuscular Hemoglobin 24.7 pg (28.0-33.3); Mean Corpuscular Volume 86.1 fL (83.0-100.0); Platelet Count 187 K/mcL (140-400); Red Blood Count 3.68 M/mcL (3.82-4.97); Red Cell Distribution Width 15.6 % (11.5-14.5)
[2017-07-19 15:06] LABS: BUN/Creatinine Ratio 26 (6-26); Blood Urea Nitrogen 22 mg/dL (7-20); Calcium 10.1 mg/dL (8.6-10.8); Chloride 97 mEq/L (98-109); Glucose 105 mg/dL (70-99); Osmolality,Calculated 302 (280-300); Potassium 4.6 mEq/L (3.5-4.5); Sodium 144 mEq/L (136-145); eGFR For African Americans > 60 (> 60); eGFR For Non-African Americans > 60 (> 60)
[2017-07-19 15:08] LABS: Carbon Dioxide 44 mEq/L (19-29)
[2017-07-19 15:24] LABS: Eosinophils # 0.1 K/mcL (0.0-0.6); Lymphocytes # 0.7 K/mcL (0.6-4.6); Monocytes # 0.5 K/mcL (0.0-1.3); Neutrophils # 4.8 K/mcL (1.6-8.9); Platelet Estimate Normal (Normal)
[2017-07-19 15:25] LABS: Microcytosis Present (Not Present)
[2017-07-19 15:26] LABS: Hypochromasia Present (Not Present)
[2017-07-19] MEDS ORDERED: Ipratropium/Albuterol Neb 3 ML IH ONE (16:33)
[2017-07-19] MEDS ORDERED: Albuterol 2.5 MG/3 ML NEBULIZER IH PRN (19:03)
[2017-07-19] MEDS ORDERED: DIPHENHYDRAMINE PO PRN (19:03)
[2017-07-19] MEDS ORDERED: ACETAMINOPHEN PO PRN (19:03)
[2017-07-19] MEDS ORDERED: NON-FORMULARY MEDICATION 1 EACH EACH (Oxygen [Oxygen] 3 L) IH SCH (19:15)
[2017-07-19] MEDS ORDERED: Naloxone 0.4 MG/ML INJ IVP PRN (19:16)
[2017-07-19] MEDS ORDERED: Ondansetron 4 MG/2 ML VIAL IVP PRN (19:16)
--- NOTE | 2017-07-19 19:42 | Internal Med History&Physical ---
<Nayan Hendricks J - Last Filed: 07/19/17 20:25> Date of Encounter: 07/19/17 Time of Encounter: 19:26 Assessment and Plan (1) COPD with exacerbation Current visit: No Status: Chronic patient will continue on 3L of oxygen via nasal canula. Breathing treatment with duoneb every 4hrs as needed. Abuser, steroid (solumedrol 60mg IV every 12hrs. Azithro 500mg every 12 hrs for 5 days. (2) Morbid obesity Current visit: No Status: Chronic Mobility,regular ambulation, diet and exercise encouraged. (3) Atrial fibrillation Current visit: Yes Status: Chronic Continue home Coumadin Qualifiers: Atrial fibrillation type: paroxysmal Qualified Code(s): I48.0 - Paroxysmal atrial fibrillation (4) Hypertension Current visit: No Status: Chronic Continue home lisinopril and furosemide Qualifiers: Hypertension type: essential hypertension Qualified Code(s): I10 - Essential (primary) hypertension Internal Medicine - H&P: HPI Chief complaint: Shortness of Breath Admitted From: Home Plans for Post Hospital Care: Home History of present illness: Ms. Guevara is a 66 year old female Patient is a 66 yr old female which medical history that includes A. fib hypertension migraine and asthma. She presents with a chief complaint of shortness of breath and difficulty ambulating the statins 2 days ago and was getting worse. She took her bridging treatment at home but did not get much relief so she is here for care and to bring her back to her baseline. Past Med Surg Social Fam HX - Past Medical History Medical history: asthma, atrial fibrillation, CHF, COPD, GERD, hypertension, migraine Psychiatric history: no psych history - Past Surgical History Surgical History: cholecystectomy, hysterectomy - Social History Smoking Status: Former smoker Smokeless Tobacco Status: No Alcohol use: none Drug use: none - Family History Sister Living Status: Hx Family Cardiac Disorders: Yes Hx Family Respiratory Disorders: Yes (copd) Mother Adopted: No Family Member Ethnicity: Non- Twin of Family Member: Yes, Fraternal Living Status: Hx Family Cardiac Disorders: Yes (HTN) Hx Family Respiratory Disorders: No Hx Family Cancer: Yes (Melanoma) Hx Family GI Disorders: Yes (Constipation) Hx Family Endocrine Disorder: No Hx Family Neuromuscular Disorders: No Hx Family Neurologic Disorders: No Hx Family HEENT Disorders: No Hx Family Autoimmune Disorders: No Father Adopted: No Family Member Ethnicity: Non- Twin of Family Member: Yes, Fraternal Living Status: Hx Family Cardiac Disorders: Yes (Thrombosis) Hx Family Respiratory Disorders: Yes (self,sister) Hx Family Cancer: No Hx Family GI Disorders: Yes (self) Hx Family Endocrine Disorder: No Hx Family Neuromuscular Disorders: No Hx Family Neurologic Disorders: No Hx Family HEENT Disorders: No Hx Family Autoimmune Disorders: No Internal Medicine - H&P: Meds Alendronate Sodium [Fosamax] 70 mg PO WE 10/28/15 [History] Ascorbate Calcium [Vitamin C] 500 mg PO DAILY 10/28/15 [History] Cholecalciferol (Vitamin D3) [Vitamin D3] 5,000 unit PO DAILY 10/28/15 [History] Cyanocobalamin (Vitamin B-12) [Vitamin B-12] 100 mcg PO DAILY 10/28/15 [History] Tiotropium [Spiriva] 18 mcg IH HS 10/28/15 [History] Warfarin [Coumadin] 5 mg PO DAILY 10/28/15 [History] Dexlansoprazole [Dexilant] 60 mg PO DAILY 07/03/16 [History] Ferrous Sulfate [Iron] 325 mg PO DAILY 07/03/16 [History] Albuterol Sulfate [Proventil Hfa] 2 puff IH Q4H PRN 09/14/16 [History] Oxygen 3 l IH AD 10/24/16 [History] Albuterol Neb [Proventil Neb] 2.5 mg IH Q4H PRN #1 inhsol 11/16/16 [Rx] Fluticasone/Salmeterol [Advair 250-50 Diskus] 1 puff IH BID #1 blst.w.dev [Rx] Montelukast [Singulair] 10 mg PO DAILY 11/29/16 [History] Ropinirole HCl [Requip] 2 mg PO HS 11/29/16 [History] Magnesium Oxide [Mag-Ox] 400 mg PO DAILY #30 tablet 12/04/16 [Rx] Furosemide [Lasix] 20 mg PO BID #60 01/11/17 [Rx] Calcium Carbonate [Calcium] 600 mg PO BID 05/08/17 [History] Fluorometholone [Fml Forte] 1 drop LEFT EYE QID 05/08/17 [History] Lisinopril [Zestril] 2.5 mg PO BID 05/08/17 [History] Diltiazem CD (24hr) [Cardizem CD] 120 mg PO DAILY cap.er.24h 05/21/17 [Rx] Propafenone [Rhythmol] 225 mg PO Q8H tablet 05/21/17 [Rx] Acetaminophen/Diphenhydramine [Percogesic 325-12.5 mg Tablet] 1 - 2 tab PO HS PRN 07/19/17 [History] Spironolactone [Aldactone] 50 mg PO DAILY 07/19/17 [History] 3 Allergy/AdvReac Type Severity Reaction Status Date / Time aspirin [ASA] Allergy Difficulty Verified 07/19/17 15:51 Breathing Penicillins Allergy Hives Verified 07/19/17 15:51 Sulfa (Sulfonamide Allergy Rash Verified 07/19/17 15:51 Antibiotics) All Systems PM: A 10-system review of systems was performed and is negative for pertinent findings except as documented above in the HPI. - Constitutional Constitutional: no chills, no fever(s), no night sweats - EENT Eyes: no change in vision, no discharge, no pain, no photophobia Ears: no ear discharge, no ear pain, no tinnitus Nose, mouth and throat: no dysphagia, no nasal discharge, no neck pain, no sore throat - Cardiovascular Cardiovascular ROS IM: no chest pain, no diaphoresis, no dyspnea, no lightheadedness, no palpitations, no syncope - Respiratory Respiratory: cough, dyspnea on exertion, wheezing, no dyspnea, no excessive phlegm production - Gastrointestinal Gastrointestinal: no abdominal pain, no diarrhea, no hematemesis, no hematochezia, no melena, no nausea, no vomiting - Genitourinary Genitourinary: no change in urinary stream, no dysuria, no flank pain, no hematuria - Musculoskeletal Musculoskeletal ROS IM: arthralgias, no numbness, no tingling - Integumentary Integumentary IM: no rash, no unusual bruising - Neurological Neurological ROS: no confusion, no convulsions, no focal weakness, no numbness, no tingling, no tremor(s) - Hematologic/Lymphatic Hematologic/Lymphatic: no easy bruising - Constitutional Vitals: Temp Pulse Resp BP Pulse Ox 98.2 F 74 14 151/72 93 12/14/17 18:07 07/19/17 18:07 07/19/17 18:07 07/19/17 18:07 07/19/17 18:07 General appearance: Present: A&O X 3, obese - Head Head exam: Present: atraumatic, normocephalic - Eye Eye exam: Present: PERRL, conjuntiva pink, sclera anicteric Pupils: Present: PERRL - Neck Neck exam general surgery: Present: supple, trachea midline. Absent: lymphadenopathy - Respiratory Respiratory exam: Present: decreased breath sounds, CTAB, wheezes. Absent: accessory muscle use, rales, rhonchi - Cardiovascular Cardiovascular exam: Present: RRR, +S1, +S2. Absent: diastolic murmur, gallop, rubs, systolic murmur - GI/Abdominal GI/Abdominal exam: Present: distended, normal bowel sounds, soft, no peritoneal signs. Absent: tenderness - Extremities Exam Extremities exam: Present: warm, radial pulses palpable and symmetrical. Absent : calf tenderness, cyanotic, pedal edema - Neurological Exam Neurological exam: Present: CN II-XII intact, oriented X3, no focal deficits. Absent: pronater drift, facial droop, speech deficit - Skin Skin exam: Present: dry, intact, warm Internal Med - H&P Results - Labs CBC & Chem 7: 07/19/17 14:45 07/19/17 14:45 - Attending Attestation Pat Cowan <Carolina Cowan - Last Filed: 07/19/17 20:41> Date of Encounter: 07/19/17 Internal Medicine - H&P: HPI History of present illness: Ms. Guevara is a 66 year old female All Systems PM: A 10-system review of systems was performed and is negative for pertinent findings except as documented above in the HPI. - Constitutional Vitals: Temp Pulse Resp BP Pulse Ox 98.2 F 74 14 151/72 93 07/19/17 18:07 07/19/17 18:07 07/19/17 18:07 07/19/17 18:07 07/19/17 18:07 Internal Med - H&P Results - Labs CBC & Chem 7: 07/19/17 14:45 07/19/17 14:45 - Attending Attestation I have personally performed a face to face evaluation on this patient. I have reviewed and agree with the care plan. History and Exam by me shows: 66 yo with 2 weeks hx of worsening SOB. At baseline, uses 3 L NC. SOB worse with exertion, better with rest. No improvement with time ROS 14 point review of systems reviewed as best as possible given presentation. Pertinent positive or negative as per HPI or otherwise reviewed as negative General - AAO x 3 Psych - Appropriate affect/speech. No agitation Eyes - DELTA. Eye lids intact. No scleral icterus Neuro - No gross peripheral or central neuro deficits with intact CN 2-12 exam Heart - Sinus. RRR. S1 and S2 present. No added HS/murmurs appreciated. No elevated JVD appreciated. Lung - Adequate air entry b/l, Diffuse wheezes appreciated GI - Soft, non-tender. No hepatosplenomegaly/ascites. BS+ - No CVA/suprapubic tenderness or palpable bladder distension Skin - Intact. No rash/petechiae/ecchymosis. Warm extremities MSK - Joints with normal ROM. No joint swellings XR/XR chest 1V portable IMPRESSION: Fluctuating streaky opacities bilaterally are most consistent with areas of atelectasis and/ or scarring. Diffuse bronchial wall thickening is in part due to senescent calcifications appreciated on comparison CT, however could also indicate underlying airway inflammation such as bronchitis. No consolidative pneumonia. COPD Flare - IV antibiotics, IV steroids, duonebs - CXR w/o infection - further management pending hospital course Social work to assist with medication course
[2017-07-19] MEDS: *HR* Warfarin 5 MG TABLET PO SCH (20:59)
[2017-07-19] MEDS: Furosemide 40 MG TABLET PO SCH (21:00)
[2017-07-19] MEDS: Cholecalciferol (D-3) 1,000 UNIT TABLET PO SCH (21:00)
[2017-07-19] MEDS: Tiotropium 18 MCG inhalation IH SCH ×2 (21:03→22:06)
[2017-07-19] MEDS: Ascorbic Acid 500 MG TABLET PO SCH (21:03)
[2017-07-19] MEDS: rOPINIRole 1 MG TABLET PO SCH (21:04)
[2017-07-19] MEDS: Fluorometholone OPTH 5 ML BOTTLE LEFT EYE SCH (21:07)
[2017-07-19] MEDS: Azithromycin 500 MG in D5% in Water 250 ML IVPB SCH (21:14)
[2017-07-19] MEDS ORDERED: Budesonide/Formoterol 80/4.5 MDI IH SCH (22:00)
[2017-07-20 04:08] LABS: Hemoglobin 9.2 g/dL (11.5-15.4); Red Cell Distribution Width 15.5 % (11.5-14.5)
[2017-07-20 04:10] LABS: Hematocrit 33.4 % (35.3-44.9); Mean Corpuscular HGB Conc 27.5 g/dL (31.6-35.5); Mean Platelet Volume 11.7 fL (9.4-12.4); Platelet Count 213 K/mcL (140-400); Red Blood Count 3.84 M/mcL (3.82-4.97)
[2017-07-20 04:28] LABS: BUN/Creatinine Ratio 26 (6-26); Blood Urea Nitrogen 23 mg/dL (7-20); Carbon Dioxide 39 mEq/L (19-29); Chloride 95 mEq/L (98-109); Potassium 4.8 mEq/L (3.5-4.5); Sodium 143 mEq/L (136-145); eGFR For African Americans > 60 (> 60)
[2017-07-20 04:29] LABS: Calcium 9.7 mg/dL (8.6-10.8); Glucose 100 mg/dL (70-99); Osmolality,Calculated 300 (280-300); eGFR For Non-African Americans > 60 (> 60)
[2017-07-20] MEDS: methylPREDNISolone 125 MG/2 ML VIAL IVP SCH ×2 (05:30→17:06)
[2017-07-20] MEDS ORDERED: Cyanocobalamin (B-12) 1,000 MCG TABLET PO SCH (09:00)
[2017-07-20] MEDS: Furosemide 40 MG TABLET PO SCH ×2 (09:16→17:06)
[2017-07-20] MEDS: Cholecalciferol (D-3) 1,000 UNIT TABLET PO SCH (09:16)
[2017-07-20] MEDS: Magnesium Oxide 400 MG TABLET PO SCH (09:17)
[2017-07-20] MEDS: Diltiazem CD (24hr) 120 MG CAPSULE PO SCH (09:17)
[2017-07-20] MEDS: Ascorbic Acid 500 MG TABLET PO SCH (09:21)
--- NOTE | 2017-07-20 11:36 | Internal Med Progress Note ---
Date of Encounter: 07/20/17 Time of Encounter: 11:00 - Assessment and plan (1) COPD with exacerbation Current Visit: Yes Status: Acute Assessment and plan: With associated acute bronchitis. Continue oxygen supplement. Goal Oxygen saturation is 88-92%. Patient has chronic CO2 retention with chronic metabolic alkalosis. Continue azithromycin, and steroids. Change Solu-Medrol to prednisone tomorrow morning. (2) Acute on chronic respiratory failure with hypoxemia Current Visit: Yes Status: Acute Assessment and plan: Patient required 6 L of oxygen on arrival. On home doses 2-3 L/m. Patient is back to her baseline. (3) Diastolic CHF Current Visit: Yes Status: Chronic Assessment and plan: Echo report from May 2017 reveals EF 60-65%, with mild left ventricular diastolic dysfunction. continue home doses of Lasix. Patient has 1+ pitting pedal edema. Chest x-ray did not show any edema. Qualifiers: Congestive heart failure chronicity: acute on chronic Qualified Code(s): I50.33 - Acute on chronic diastolic (congestive) heart failure (4) Morbid obesity Current Visit: Yes Status: Chronic Assessment and plan: Encourage weight loss. (5) Atrial fibrillation Current Visit: Yes Status: Chronic Assessment and plan: Heart rate is currently controlled. Continue current medications. Patient is anticoagulated with warfarin, continue the same, pharmacy to dose. Check INR today. Qualifiers: Atrial fibrillation type: paroxysmal Qualified Code(s): I48.0 - Paroxysmal atrial fibrillation (6) Hypertension Current Visit: Yes Status: Chronic Assessment and plan: Continue current meds Qualifiers: Hypertension type: essential hypertension Qualified Code(s): I10 - Essential (primary) hypertension (7) GERD (gastroesophageal reflux disease) Current Visit: Yes Status: Chronic Assessment and plan: Continue home meds Qualifiers: Esophagitis presence: without esophagitis Qualified Code(s): K21.9 - Gastro -esophageal reflux disease without esophagitis (8) Anemia Current Visit: Yes Status: Chronic Assessment and plan: Hb at baseline Qualifiers: Anemia type: iron deficiency Iron deficiency anemia type: unspecified iron deficiency Qualified Code(s): D50.9 - Iron deficiency anemia, unspecified (9) Chronic kidney disease Current Visit: Yes Status: Chronic Assessment and plan: Chem is at baseline Qualifiers: Chronic kidney disease stage: stage 2 (mild) Qualified Code(s): N18.2 - Chronic kidney disease, stage 2 (mild) - Subjective Interval history: 66-year-old female with morbid obesity, chronic respiratory failure on home oxygen, COPD, atrial fibrillation on Coumadin. She also has CHF with preserved ejection fraction. She is admitted and be managed for COPD exacerbation and acute bronchitis. She is seen and examined at the bedside, she has no new complaints. She reports her breathing is slowly improving. - Constitutional Vitals: Temp Pulse Resp BP Pulse Ox 98 F 78 16 143/66 97 07/20/17 07:35 07/20/17 07:35 07/20/17 07:35 07/20/17 07:35 07/20/17 07:35 General appearance: Present: A&O X 3, morbidly obese, pleasant, obese - Head Head exam: Present: atraumatic, normocephalic - Eye Eye exam: Present: PERRL, conjuntiva pink, sclera anicteric Pupils: Present: PERRL - Neck Neck exam general surgery: Present: supple, trachea midline. Absent: lymphadenopathy - Respiratory Respiratory exam: Present: decreased breath sounds, wheezes. Absent: accessory muscle use, rales, rhonchi - Cardiovascular Cardiovascular exam: Present: irregular rhythm, +S1, +S2. Absent: diastolic murmur, gallop, rubs, systolic murmur - GI/Abdominal GI/Abdominal exam: Present: normal bowel sounds, soft, no peritoneal signs. Absent: distended, tenderness - Extremities Exam Extremities exam: Present: pedal edema (1+ pitting pedal edema to the knee.), warm, radial pulses palpable and symmetrical. Absent: calf tenderness, cyanotic - Neurological Exam Neurological exam: Present: alert, CN II-XII intact, oriented X3, no focal deficits. Absent: pronater drift, facial droop, speech deficit - Skin Skin exam: Present: dry Internal Medicine: Result - Labs CBC & Chem 7: 07/20/17 03:03 07/20/17 03:03 Labs: Short CBC 07/20/17 Range/Units 03:03 WBC 5.7 (4.3-11.1) K/mcL Hgb 9.2 L (11.5-15.4) g/dL Hct 33.4 L (35.3-44.9) % Plt Count 213 (140-400) K/mcL BMP 07/20/17 03:03 Sodium 143 Potassium 4.8 H Chloride 95 L Carbon Dioxide 39 H BUN 23 H Creatinine 0.89 Glucose 100 H Calcium 9.7 Consult Discharge Plan - Plan Referrals: Lisbet Ray CNP [Primary Care Provider] - 08/01/17 11:10 am
[2017-07-20] MEDS: Fluorometholone OPTH 5 ML BOTTLE LEFT EYE SCH ×4 (12:02→20:41)
[2017-07-20 12:43] LABS: INR 1.9; Prothrombin Time 20.6 Seconds (9.4-12.1)
[2017-07-20] MEDS: Ipratropium/Albuterol Neb 3 ML IH SCH ×4 (16:06→23:46)
[2017-07-20] MEDS: *HR* Warfarin 5 MG TABLET PO SCH (17:06)
--- NOTE | 2017-07-20 17:15 | Electrocardiograph Report ---
[place] [id number] Test Date: 2017-07-19 Pat Name: Alyssa Guevara Department: 103 Room: 2NE23 Gender: F Account Coordinator: GUNNAR : 1950 Requested By: Bony Capellan Order Number: [id number] Reading MD: Taniya Cedillo Measurements Intervals [place] Rate: 84 P: 63 CA: 182 QRS: 51 QRSD: 84 T: 33 QT: 322 QTc: 363 Interpretive Statements SINUS RHYTHM SEPTAL MYOCARDIAL INFARCTION [40+ ms Q WAVE IN V1/V2], PROBABLY OLD Electronically Signed On 07-20-2017 17:13:21 EST by Taniya Cedillo
[2017-07-20] MEDS ORDERED: Warfarin perPT PO PRN (18:00)
[2017-07-20] MEDS: SPIRIVA RESPIMAT IH SCH (20:22)
[2017-07-20] MEDS: ADVAIR IH SCH (20:23)
[2017-07-20] MEDS: rOPINIRole 1 MG TABLET PO SCH (20:39)
[2017-07-20] MEDS: Azithromycin 500 MG in D5% in Water 250 ML IVPB SCH (20:39)
[2017-07-21] MEDS: PROPAFENONE HCL 225 MG PO SCH ×3 (00:42→23:19)
[2017-07-21] MEDS: Ipratropium/Albuterol Neb 3 ML IH SCH ×5 (03:55→20:15)
[2017-07-21] MEDS: methylPREDNISolone 125 MG/2 ML VIAL IVP SCH (05:09)
[2017-07-21] MEDS: ADVAIR IH SCH ×2 (07:53→20:13)
[2017-07-21 07:56] LABS: Prothrombin Time 22.4 Seconds (9.4-12.1)
[2017-07-21 08:00] LABS: BUN/Creatinine Ratio 31 (6-26); Blood Urea Nitrogen 29 mg/dL (7-20); Calcium 9.8 mg/dL (8.6-10.8); Carbon Dioxide 36 mEq/L (19-29); Chloride 96 mEq/L (98-109); Glucose 247 mg/dL (70-99); Osmolality,Calculated 304 (280-300); Potassium 4.6 mEq/L (3.5-4.5); Sodium 140 mEq/L (136-145); eGFR For African Americans > 60 (> 60); eGFR For Non-African Americans 59 (> 60)
[2017-07-21 08:02] LABS: Hematocrit 35.4 % (35.3-44.9); Lymphocytes % 6.4 %; Mean Platelet Volume 11.8 fL (9.4-12.4)
[2017-07-21 08:03] LABS: Basophils % 0.1 %; Immature Granulocytes % 0.9 % (0-4); Lymphocytes # 0.6 K/mcL (0.6-4.6); Mean Corpuscular HGB Conc 28.2 g/dL (31.6-35.5); Mean Corpuscular Hemoglobin 23.8 pg (28.0-33.3); Mean Corpuscular Volume 84.1 fL (83.0-100.0); Monocytes # 0.3 K/mcL (0.0-1.3); Monocytes % 3.5 %; Platelet Count 263 K/mcL (140-400); Red Blood Count 4.21 M/mcL (3.82-4.97); Red Cell Distribution Width 15.2 % (11.5-14.5); Segmented Neutrophils % 89.1 %
[2017-07-21 08:05] LABS: Neutrophils # 7.8 K/mcL (1.6-8.9)
[2017-07-21 08:49] LABS: Hypochromasia Present (Not Present); Microcytosis Present (Not Present); Platelet Estimate Normal (Normal)
[2017-07-21] MEDS: Ascorbic Acid 500 MG TABLET PO SCH (08:59)
[2017-07-21] MEDS: Cholecalciferol (D-3) 1,000 UNIT TABLET PO SCH ×2 (08:59→12:21)
[2017-07-21] MEDS: Magnesium Oxide 400 MG TABLET PO SCH (08:59)
[2017-07-21] MEDS: Diltiazem CD (24hr) 120 MG CAPSULE PO SCH (09:00)
[2017-07-21] MEDS: Furosemide 40 MG TABLET PO SCH ×2 (09:00→16:43)
[2017-07-21] MEDS: Cyanocobalamin (B-12) 1,000 MCG TABLET PO SCH (09:00)
[2017-07-21] MEDS: predniSONE 20 MG TABLET PO SCH (09:00)
[2017-07-21] MEDS: Fluorometholone OPTH 5 ML BOTTLE LEFT EYE SCH ×4 (09:03→21:30)
--- NOTE | 2017-07-21 13:00 | Internal Med Progress Note ---
Date of Encounter: 07/21/17 Time of Encounter: 12:58 - Assessment and plan (1) COPD with exacerbation Current Visit: Yes Status: Acute Assessment and plan: With associated acute bronchitis. Continue oxygen supplement. Goal Oxygen saturation is 88-92%. Patient has chronic CO2 retention with chronic metabolic alkalosis. Continue azithromycin, and steroids. Continue prednisone (2) Acute on chronic respiratory failure with hypoxemia Current Visit: Yes Status: Acute Assessment and plan: Patient required 6 L of oxygen on arrival. On home doses 2-3 L/m. Patient is back to her baseline. (3) Diastolic CHF Current Visit: Yes Status: Chronic Assessment and plan: Echo report from May 2017 reveals EF 60-65%, with mild left ventricular diastolic dysfunction. continue home doses of Lasix. Patient has 1+ pitting pedal edema. Chest x-ray did not show any edema. Qualifiers: Congestive heart failure chronicity: acute on chronic Qualified Code(s): I50.33 - Acute on chronic diastolic (congestive) heart failure (4) Morbid obesity Current Visit: Yes Status: Chronic Assessment and plan: Encourage weight loss. (5) Atrial fibrillation Current Visit: Yes Status: Chronic Assessment and plan: Heart rate is currently controlled. Continue current medications. Patient is anticoagulated with warfarin, continue the same, pharmacy to dose. INR is therapeutic Qualifiers: Atrial fibrillation type: paroxysmal Qualified Code(s): I48.0 - Paroxysmal atrial fibrillation (6) Hypertension Current Visit: Yes Status: Chronic Assessment and plan: Continue current meds Qualifiers: Hypertension type: essential hypertension Qualified Code(s): I10 - Essential (primary) hypertension (7) GERD (gastroesophageal reflux disease) Current Visit: Yes Status: Chronic Assessment and plan: Continue home meds Qualifiers: Esophagitis presence: without esophagitis Qualified Code(s): K21.9 - Gastro -esophageal reflux disease without esophagitis (8) Anemia Current Visit: Yes Status: Chronic Assessment and plan: Hb at baseline Qualifiers: Anemia type: iron deficiency Iron deficiency anemia type: unspecified iron deficiency Qualified Code(s): D50.9 - Iron deficiency anemia, unspecified (9) Chronic kidney disease Current Visit: Yes Status: Chronic Assessment and plan: Chem is at baseline Qualifiers: Chronic kidney disease stage: stage 2 (mild) Qualified Code(s): N18.2 - Chronic kidney disease, stage 2 (mild) - Subjective Interval history: 66-year-old female with morbid obesity, chronic respiratory failure on home oxygen, COPD, atrial fibrillation on Coumadin. She also has CHF with preserved ejection fraction. She is admitted and be managed for COPD exacerbation and acute bronchitis. She is seen and examined at the bedside, she has no new complaints. She reports her breathing is slowly improving. - Constitutional Vitals: Temp Pulse Resp BP Pulse Ox 98.0 F 87 17 157/72 96 07/21/17 07:50 07/21/17 12:27 07/21/17 12:00 07/21/17 12:27 07/21/17 11:16 General appearance: Present: A&O X 3, morbidly obese, pleasant, obese - Head Head exam: Present: atraumatic, normocephalic - Eye Eye exam: Present: PERRL, conjuntiva pink, sclera anicteric Pupils: Present: PERRL - Neck Neck exam general surgery: Present: supple, trachea midline. Absent: lymphadenopathy - Respiratory Respiratory exam: Present: CTAB. Absent: accessory muscle use, rales, rhonchi, wheezes - Cardiovascular Cardiovascular exam: Present: RRR, +S1, +S2. Absent: diastolic murmur, gallop, rubs, systolic murmur - GI/Abdominal GI/Abdominal exam: Present: normal bowel sounds, soft, no peritoneal signs. Absent: distended, tenderness - Extremities Exam Extremities exam: Present: pedal edema - Neurological Exam Neurological exam: Present: alert, CN II-XII intact, oriented X3, no focal deficits. Absent: pronater drift, facial droop, speech deficit - Skin Skin exam: Present: dry, intact Internal Medicine: Result - Labs CBC & Chem 7: 07/21/17 07:34 07/21/17 07:34 Labs: Short CBC 07/21/17 Range/Units 07:34 WBC 8.8 D (4.3-11.1) K/mcL Hgb 10.0 L (11.5-15.4) g/dL Hct 35.4 (35.3-44.9) % Plt Count 263 (140-400) K/mcL Neutrophils # 7.8 (1.6-8.9) K/mcL BMP 07/21/17 07:34 Sodium 140 Potassium 4.6 H Chloride 96 L Carbon Dioxide 36 H BUN 29 H Creatinine 0.94 Glucose 247 H Calcium 9.8 - ABG Interpretation ABG results: PT/INR, D-dimer PT 22.4 Seconds (9.4-12.1) H 07/21/17 07:34 Consult Discharge Plan - Plan Referrals: Lisbet Ray CNP [Primary Care Provider] - 08/01/17 11:10 am
[2017-07-21] MEDS: Acetaminophen 325 MG TABLET PO PRN ×2 (14:45→21:36)
[2017-07-21] MEDS: *HR* Warfarin 5 MG TABLET PO SCH (16:43)
[2017-07-21] MEDS ORDERED: *HR* Warfarin 5 MG TABLET PO ONE (18:00)
[2017-07-21] MEDS: SPIRIVA RESPIMAT IH SCH (20:17)
[2017-07-21] MEDS: rOPINIRole 1 MG TABLET PO SCH (21:36)
[2017-07-21] MEDS: Azithromycin 500 MG in D5% in Water 250 ML IVPB SCH (21:37)
[2017-07-22] MEDS: Ipratropium/Albuterol Neb 3 ML IH SCH ×3 (00:17→08:01)
[2017-07-22] MEDS: Azithromycin 500 MG in D5% in Water 250 ML IVPB SCH ×2 (00:21→22:39)
[2017-07-22 04:55] LABS: INR 2.3; Prothrombin Time 24.9 Seconds (9.4-12.1)
[2017-07-22] MEDS: ADVAIR IH SCH ×2 (08:02→21:47)
[2017-07-22] MEDS: Magnesium Oxide 400 MG TABLET PO SCH (10:02)
[2017-07-22] MEDS: Furosemide 40 MG TABLET PO SCH ×2 (10:02→16:52)
[2017-07-22] MEDS: Cholecalciferol (D-3) 1,000 UNIT TABLET PO SCH (10:03)
[2017-07-22] MEDS: Diltiazem CD (24hr) 120 MG CAPSULE PO SCH (10:03)
[2017-07-22] MEDS: Cyanocobalamin (B-12) 1,000 MCG TABLET PO SCH (10:03)
[2017-07-22] MEDS: Ascorbic Acid 500 MG TABLET PO SCH (10:03)
[2017-07-22] MEDS: predniSONE 20 MG TABLET PO SCH (10:03)
[2017-07-22] MEDS: Fluorometholone OPTH 5 ML BOTTLE LEFT EYE SCH ×4 (10:04→20:53)
[2017-07-22] MEDS: PROPAFENONE HCL 225 MG PO SCH ×2 (10:04→21:04)
--- NOTE | 2017-07-22 10:38 | Internal Med Progress Note ---
Date of Encounter: 07/22/17 Time of Encounter: 10:00 - Assessment and plan (1) COPD with exacerbation Current Visit: Yes Status: Acute Assessment and plan: With associated acute bronchitis. Continue oxygen supplement. Goal Oxygen saturation is 88-92%. Patient has chronic CO2 retention with chronic metabolic alkalosis. Continue azithromycin, and steroids. Continue prednisone (2) Acute on chronic respiratory failure with hypoxemia Current Visit: Yes Status: Acute Assessment and plan: Patient required 6 L of oxygen on arrival. On home doses 2-3 L/m. Patient is back to her baseline. (3) Diastolic CHF Current Visit: Yes Status: Chronic Assessment and plan: Echo report from May 2017 reveals EF 60-65%, with mild left ventricular diastolic dysfunction. continue home doses of Lasix. Patient has 1+ pitting pedal edema. Chest x-ray did not show any edema. Qualifiers: Congestive heart failure chronicity: acute on chronic Qualified Code(s): I50.33 - Acute on chronic diastolic (congestive) heart failure (4) Morbid obesity Current Visit: Yes Status: Chronic Assessment and plan: Encourage weight loss. (5) Atrial fibrillation Current Visit: Yes Status: Chronic Assessment and plan: Heart rate is currently controlled. Continue current medications. Patient is anticoagulated with warfarin, continue the same, pharmacy to dose. INR is therapeutic Qualifiers: Atrial fibrillation type: paroxysmal Qualified Code(s): I48.0 - Paroxysmal atrial fibrillation (6) Hypertension Current Visit: Yes Status: Chronic Assessment and plan: Continue current meds Qualifiers: Hypertension type: essential hypertension Qualified Code(s): I10 - Essential (primary) hypertension (7) GERD (gastroesophageal reflux disease) Current Visit: Yes Status: Chronic Assessment and plan: Continue home meds Qualifiers: Esophagitis presence: without esophagitis Qualified Code(s): K21.9 - Gastro -esophageal reflux disease without esophagitis (8) Anemia Current Visit: Yes Status: Chronic Assessment and plan: Hb at baseline Qualifiers: Anemia type: iron deficiency Iron deficiency anemia type: unspecified iron deficiency Qualified Code(s): D50.9 - Iron deficiency anemia, unspecified (9) Chronic kidney disease Current Visit: Yes Status: Chronic Assessment and plan: Chem is at baseline Qualifiers: Chronic kidney disease stage: stage 2 (mild) Qualified Code(s): N18.2 - Chronic kidney disease, stage 2 (mild) - Subjective Interval history: 66-year-old female with morbid obesity, chronic respiratory failure on home oxygen, COPD, atrial fibrillation on Coumadin. She also has CHF with preserved ejection fraction. She is admitted and be managed for COPD exacerbation and acute bronchitis. She is seen and examined at the bedside, she has no new complaints. She reports her breathing is slowly improving She has multiple readmissions, >15 admissions this year We will await ANTONIO zamora for social needs or problems prior to discharge. - Constitutional Vitals: Temp Pulse Resp BP Pulse Ox 97.8 F 92 20 150/66 99 07/22/17 06:00 07/22/17 06:00 07/22/17 08:01 07/22/17 06:00 07/22/17 08:01 General appearance: Present: A&O X 3, morbidly obese, pleasant, obese - Head Head exam: Present: atraumatic, normocephalic - Eye Eye exam: Present: PERRL, conjuntiva pink, sclera anicteric Pupils: Present: PERRL - Neck Neck exam general surgery: Present: supple, trachea midline. Absent: lymphadenopathy - Respiratory Respiratory exam: Present: wheezes - Cardiovascular Cardiovascular exam: Present: irregular rhythm, +S1, +S2. Absent: systolic murmur - GI/Abdominal GI/Abdominal exam: Present: normal bowel sounds, soft, no peritoneal signs. Absent: distended, tenderness - Extremities Exam Extremities exam: Present: pedal edema (1+ edema, chronic venous stasis changes) , warm, radial pulses palpable and symmetrical. Absent: calf tenderness, cyanotic - Neurological Exam Neurological exam: Present: alert, CN II-XII intact, oriented X3, no focal deficits. Absent: pronater drift, facial droop, speech deficit - Skin Skin exam: Present: dry, intact Internal Medicine: Result - Labs CBC & Chem 7: 07/21/17 07:34 07/21/17 07:34 - ABG Interpretation ABG results: PT/INR, D-dimer PT 24.9 Seconds (9.4-12.1) H 07/22/17 03:57 Consult Discharge Plan - Plan Referrals: Lisbet Ray, WORKFORCE DEVELOPMENT ASSISTANT [Primary Care Provider] - 08/01/17 11:10 am
[2017-07-22] MEDS ORDERED: Ipratropium/Albuterol Neb 3 ML IH PRN (10:39)
[2017-07-22] MEDS: *HR* Warfarin 5 MG TABLET PO SCH (16:53)
[2017-07-22] MEDS: rOPINIRole 1 MG TABLET PO SCH (21:04)
[2017-07-22] MEDS: SPIRIVA RESPIMAT IH SCH (21:47)
[2017-07-22] MEDS ORDERED: Azithromycin 250 MG TABLET PO ONE (22:36)
[2017-07-23 04:52] LABS: INR 2.6; Prothrombin Time 28.3 Seconds (9.4-12.1)
[2017-07-23] MEDS: ADVAIR IH SCH (08:22)
[2017-07-23] MEDS: Magnesium Oxide 400 MG TABLET PO SCH (08:56)
[2017-07-23] MEDS: Diltiazem CD (24hr) 120 MG CAPSULE PO SCH (08:56)
[2017-07-23] MEDS: Ascorbic Acid 500 MG TABLET PO SCH (08:56)
[2017-07-23] MEDS: Cholecalciferol (D-3) 1,000 UNIT TABLET PO SCH (08:56)
[2017-07-23] MEDS: predniSONE 20 MG TABLET PO SCH (08:57)
[2017-07-23] MEDS: Furosemide 40 MG TABLET PO SCH (08:58)
[2017-07-23] MEDS: Cyanocobalamin (B-12) 1,000 MCG TABLET PO SCH (08:59)
[2017-07-23] MEDS: PROPAFENONE HCL 225 MG PO SCH (09:02)
[2017-07-23] MEDS: Fluorometholone OPTH 5 ML BOTTLE LEFT EYE SCH (09:03)
--- NOTE | 2017-07-23 09:59 | Discharge Summary ---
Date of Encounter: 07/23/17 Time of Encounter: 09:10 - Discharge Diagnosis (1) COPD with exacerbation Priority: Primary Status: Acute (2) Acute on chronic respiratory failure with hypoxemia Priority: Primary Status: Resolved (3) Diastolic CHF Priority: Secondary Status: Chronic Qualifiers: Congestive heart failure chronicity: acute on chronic Qualified Code(s): I50.33 - Acute on chronic diastolic (congestive) heart failure (4) Morbid obesity Priority: Secondary Status: Chronic (5) Atrial fibrillation Priority: Secondary Status: Chronic Qualifiers: Atrial fibrillation type: paroxysmal Qualified Code(s): I48.0 - Paroxysmal atrial fibrillation (6) Hypertension Priority: Secondary Status: Chronic Qualifiers: Hypertension type: essential hypertension Qualified Code(s): I10 - Essential (primary) hypertension (7) GERD (gastroesophageal reflux disease) Priority: Secondary Status: Chronic Qualifiers: Esophagitis presence: without esophagitis Qualified Code(s): K21.9 - Gastro -esophageal reflux disease without esophagitis (8) Anemia Priority: Secondary Status: Chronic Qualifiers: Anemia type: iron deficiency Iron deficiency anemia type: unspecified iron deficiency Qualified Code(s): D50.9 - Iron deficiency anemia, unspecified (9) Chronic kidney disease Priority: Secondary Status: Chronic Qualifiers: Chronic kidney disease stage: stage 2 (mild) Qualified Code(s): N18.2 - Chronic kidney disease, stage 2 (mild) - Discharge Medications Prescriptions: Albuterol Neb [Proventil Neb] 2.5 mg IH Q4H PRN #30 inhsol PRN Reason: Shortness Of Breath/Wheezing GuaiFENesin ER [Mucinex] 600 mg PO BID PRN #1 bottle PRN Reason: Congestion predniSONE [PredniSONE] 40 mg PO DAILY #8 tablet Home Medications: Alendronate Sodium [Fosamax] 70 mg PO WE 10/28/15 [History] Ascorbate Calcium [Vitamin C] 500 mg PO DAILY 10/28/15 [History] Cholecalciferol (Vitamin D3) [Vitamin D3] 5,000 unit PO DAILY 10/28/15 [History] Cyanocobalamin (Vitamin B-12) [Vitamin B-12] 100 mcg PO DAILY 10/28/15 [History] Tiotropium [Spiriva] 18 mcg IH HS 10/28/15 [History] Warfarin [Coumadin] 5 mg PO DAILY 10/28/15 [History] Dexlansoprazole [Dexilant] 60 mg PO DAILY 07/03/16 [History] Ferrous Sulfate [Iron] 325 mg PO DAILY 07/03/16 [History] Albuterol Sulfate [Proventil Hfa] 2 puff IH Q4H PRN 09/14/16 [History] Oxygen 3 l IH AD 10/24/16 [History] Albuterol Neb [Proventil Neb] 2.5 mg IH Q4H PRN #1 inhsol 11/16/16 [Rx] Fluticasone/Salmeterol [Advair 250-50 Diskus] 1 puff IH BID #1 blst.w.dev [Rx] Montelukast [Singulair] 10 mg PO DAILY 11/29/16 [History] Ropinirole HCl [Requip] 2 mg PO HS 11/29/16 [History] Magnesium Oxide [Mag-Ox] 400 mg PO DAILY #30 tablet 12/04/16 [Rx] Furosemide [Lasix] 20 mg PO BID #60 01/11/17 [Rx] Calcium Carbonate [Calcium] 600 mg PO BID 05/08/17 [History] Fluorometholone [Fml Forte] 1 drop LEFT EYE QID 05/08/17 [History] Lisinopril [Zestril] 2.5 mg PO BID 05/08/17 [History] Diltiazem CD (24hr) [Cardizem CD] 120 mg PO DAILY cap.er.24h 05/21/17 [Rx] Acetaminophen/Diphenhydramine [Percogesic 325-12.5 mg Tablet] 1 - 2 tab PO HS PRN 07/19/17 [History] Spironolactone [Aldactone] 50 mg PO DAILY 07/19/17 [History] Propafenone HCl [Propafenone HCl ER] 225 mg PO Q12H 07/20/17 [History] Albuterol Neb [Proventil Neb] 2.5 mg IH Q4H PRN #30 inhsol 07/23/17 [Rx] Azithromycin [Zithromax Tri-Roberto] 500 mg PO DAILY #2 tablet 07/23/17 [Rx] DiphenhydraMINE [Benadryl] 25 mg PO HS PRN capsule 07/23/17 [Rx] GuaiFENesin ER [Mucinex] 600 mg PO BID PRN #1 bottle 07/23/17 [Rx] predniSONE [PredniSONE] 40 mg PO DAILY #8 tablet 07/23/17 [Rx] Allergies/Adverse Reactions: 3 Allergy/AdvReac Type Severity Reaction Status Date / Time aspirin [ASA] Allergy Difficulty Verified 07/19/17 15:51 Breathing Penicillins Allergy Hives Verified 07/19/17 15:51 Sulfa (Sulfonamide Allergy Rash Verified 07/19/17 15:51 Antibiotics) Date of admission: 07/19/17 19:17 Primary care physician: Lisbet Ray, Discharging clinician: Nahid Moss Anticipated date of discharge: 07/23/17 - Patient Status Disposition: Home, Self-Care Condition: Good Functional capacity at discharge: independent ambulation Overall status at discharge: patient is progressing back to baseline - Discharge Instructions Follow Up With: Lisbet Ray, CORPORATE ADMINISTRATIVE ASSISTANT [Primary Care Provider] - 08/01/17 11:10 am - Diet and Activity Activity: resume usual activities as tolerated, wear oxygen at all times Diet: low fat, low cholesterol, low salt diet Interval History: See below Hospital course: Ms. Guevara is a 66 year old female with multiple medical co-morbidities including COPD, chronic respiratory failure on home oxygen, chronic CO2 retention, chronic metabolic alkalosis, diastolic CHF, atrial fibrillation and morbid obesity. She was admitted for COPD exacerbation secondary to acute bronchitis. She also had acute on chronic respiratory failure with hypoxemia which has resolved. Her oxygen need is back to her baseline dose. This patient has had multiple readmissions more than 15 admission was this year for COPD exacerbation, and A. fib with RVR. Social work evaluation noted and patient denies any social needs to meet this morning. She also received azithromycin in-patient, to continue the course at home. She is also discharged home on inhaler nebs, and prednisone She is medically stable to be discharged home on her current home medications, INR is therapeutic on current dose of warfarin. Continue the same. Follow-up with PCP. - Time Spent with Patient Total time spent providing and/or coordinating discharge services: Greater than 30 minutes - Constitutional Vitals: Temp Pulse Resp BP Pulse Ox 98.3 F 80 20 144/77 95 07/23/17 07:27 07/23/17 07:27 07/23/17 08:23 07/23/17 07:27 07/23/17 08:23 General appearance: Present: A&O X 3, morbidly obese, pleasant, obese - Head Head exam: Present: atraumatic, normocephalic - Eye Eye exam: Present: PERRL, conjuntiva pink, sclera anicteric Pupils: Present: PERRL - Neck Neck exam general surgery: Present: supple, trachea midline. Absent: lymphadenopathy - Respiratory Respiratory exam: Present: CTAB. Absent: accessory muscle use, rales, rhonchi, wheezes - Cardiovascular Cardiovascular exam: Present: RRR, +S1, +S2, systolic murmur. Absent: diastolic murmur, gallop, rubs - GI/Abdominal GI/Abdominal exam: Present: normal bowel sounds, soft, no peritoneal signs. Absent: distended, tenderness - Extremities Exam Extremities exam: Present: pedal edema (1+ edema, chronic venous stasis changes) - Neurological Exam Neurological exam: Present: alert, CN II-XII intact, oriented X3, no focal deficits. Absent: pronater drift, facial droop, speech deficit - Skin Skin exam: Present: dry, intact - VTE Documentation of Mechanical Device: Intermittent pneumatic compression device
[2017-07-23] MEDS ORDERED: Azithromycin 250 MG TABLET PO ONE (10:14)
[2017-07-23 11:18] VITALS: BP 158/71
== END 2017-07-23 13:20 | disposition home or self-care (01) | DRG 190 ==
LOC: EMEROO 14:00 → 2NENU 14:00 → SUATTDRO 19:17
PROVIDERS: ADMIT Registered Nurse; ATTEND Internal Medicine

== ENCOUNTER 2017-08-07 17:01 | Inpatient (IN) ==
[2017-08-07 18:06] LABS: Basophils % 0.3 %; Hemoglobin 8.6 g/dL (11.5-15.4)
[2017-08-07 18:07] LABS: Eosinophils # 0.1 K/mcL (0.0-0.6); Eosinophils % 1.6 %; Hematocrit 31.5 % (35.3-44.9); Immature Granulocytes % 0.3 % (0-4); Lymphocytes # 0.8 K/mcL (0.6-4.6); Lymphocytes % 11.4 %; Mean Corpuscular HGB Conc 27.3 g/dL (31.6-35.5); Mean Corpuscular Hemoglobin 24.1 pg (28.0-33.3); Mean Corpuscular Volume 88.2 fL (83.0-100.0); Mean Platelet Volume 11.7 fL (9.4-12.4); Monocytes # 0.6 K/mcL (0.0-1.3); Monocytes % 8.5 %; Neutrophils # 5.2 K/mcL (1.6-8.9); Platelet Count 152 K/mcL (140-400); Red Blood Count 3.57 M/mcL (3.82-4.97); Red Cell Distribution Width 15.8 % (11.5-14.5); Segmented Neutrophils % 77.9 %
[2017-08-07 18:23] LABS: BUN/Creatinine Ratio 28 (6-26); Blood Urea Nitrogen 21 mg/dL (8-23); Calcium 9.3 mg/dL (8.6-10.3); Carbon Dioxide 43 mEq/L (23-29); Chloride 99 mEq/L (98-107); Glucose 117 mg/dL (70-105); Osmolality,Calculated 304 (280-300); Potassium 4.6 mEq/L (3.5-5.1); Sodium 145 mEq/L (136-145); eGFR For African Americans > 60 (> 60); eGFR For Non-African Americans > 60 (> 60)
[2017-08-07 18:55] LABS: Platelet Estimate Normal (Normal); Polychromasia 1+ (Not Present)
[2017-08-07] MEDS ORDERED: Ipratropium/Albuterol Neb 3 ML IH ONE (19:36)
[2017-08-07] MEDS ORDERED: methylPREDNISolone 125 MG/2 ML VIAL IVP ONE (19:36)
--- NOTE | 2017-08-07 19:44 | Emergency Department Note ---
Disposition Clinical Impression: Hypoxia COPD (chronic obstructive pulmonary disease) Qualifiers: COPD type: unspecified COPD Qualified Code(s): J44.9 - Chronic obstructive pulmonary disease, unspecified Disposition: Admitted As Inpatient Condition: Fair General Adult HPI - General Chief complaint: ED Shortness of Breath/Dyspnea Stated complaint: ESTEFANI Time Seen by Provider: 08/07/17 19:26 Source: patient Mode of arrival: ambulatory Limitations: no limitations Nursing Notes Reviewed: Yes Vital Signs Reviewed: Yes - History of Present Illness HPI Narrative: 66-year-old female history of A. fib on Patient states worsening large semi- swelling. Patient states worsening lower summary swelling. anticoagulation, COPD, CHF oxygen dependent on 3 L presents for evaluation of dyspnea. Patient states that she has been feeling short of breath it is worsening in the past week. Patient states she cannot perform her activities of daily living without being hypoxic. Patient does have oxygen saturations at home which reads in the 50s. Patient states that she cannot get up from her chair to the bed without catching her breath. Patient noted some chest pain when she feels really short of breath. Patient denies any fevers or cough. Patient states she has been using her nebulized treatments at home scheduled over the past couple days. Reports worsening lower extremity swelling. Pain Scale: 0 - Related Data Home Medications Medication Instructions Recorded Confirmed Alendronate Sodium [Fosamax] 70 mg PO WE 10/28/15 08/07/17 Ascorbate Calcium [Vitamin C] 500 mg PO DAILY 10/28/15 08/07/17 Cholecalciferol (Vitamin D3) 5,000 unit PO DAILY 10/28/15 08/07/17 [Vitamin D3] Cyanocobalamin (Vitamin B-12) 100 mcg PO DAILY 10/28/15 08/07/17 [Vitamin B-12] Tiotropium [Spiriva] 18 mcg IH HS 10/28/15 08/07/17 Warfarin [Coumadin] 5 mg PO DAILY 10/28/15 08/07/17 Dexlansoprazole [Dexilant] 60 mg PO DAILY 07/03/16 08/07/17 Ferrous Sulfate [Iron] 325 mg PO DAILY 07/03/16 08/07/17 Albuterol Sulfate [Proventil Hfa] 2 puff IH Q4H PRN 09/14/16 08/07/17 Oxygen 3 l IH AD 10/24/16 08/07/17 Montelukast [Singulair] 10 mg PO DAILY 11/29/16 08/07/17 Ropinirole HCl [Requip] 2 mg PO HS 11/29/16 08/07/17 Calcium Carbonate [Calcium] 600 mg PO BID 05/08/17 08/07/17 Fluorometholone [Fml Forte] 1 drop LEFT EYE QID 05/08/17 08/07/17 Lisinopril [Zestril] 2.5 mg PO BID 05/08/17 08/07/17 Acetaminophen/Diphenhydramine 1 - 2 tab PO HS PRN 07/19/17 08/07/17 [Percogesic 325-12.5 mg Tablet] Spironolactone [Aldactone] 50 mg PO DAILY 07/19/17 08/07/17 Propafenone HCl [Propafenone HCl 225 mg PO Q12H 07/20/17 08/07/17 ER] Previous Rx's Medication Instructions Recorded Fluticasone/Salmeterol [Advair 1 puff IH BID #1 blst.w.dev 11/16/16 250-50 Diskus] Magnesium Oxide [Mag-Ox] 400 mg PO DAILY #30 tablet 12/04/16 Furosemide [Lasix] 20 mg PO BID #60 01/11/17 Diltiazem CD (24hr) [Cardizem CD] 120 mg PO DAILY cap.er.24h 05/21/17 Albuterol Neb [Proventil Neb] 2.5 mg IH Q4H PRN #30 inhsol 07/23/17 DiphenhydraMINE [Benadryl] 25 mg PO HS PRN capsule 07/23/17 GuaiFENesin ER [Mucinex] 600 mg PO BID PRN #1 bottle 07/23/17 Allergies Allergy/AdvReac Type Severity Reaction Status Date / Time aspirin [ASA] Allergy Difficulty Verified 08/07/17 20:01 Breathing Penicillins Allergy Hives Verified 08/07/17 20:01 Sulfa (Sulfonamide Allergy Rash Verified 08/07/17 20:01 Antibiotics) All systems ED: reviewed and negative except as stated. Constitutional: Reports: as per HPI. Denies: fever Eyes: Reports: as per HPI ENT ED: Reports: as per HPI Cardiovascular: Reports: as per HPI, chest pain Respiratory: Reports: as per HPI, dyspnea. Denies: cough, sputum production Gastrointestinal: Reports: as per HPI Genitourinary: Reports: as per HPI Musculoskeletal: Reports: as per HPI Integumentary: Reports: as per HPI Neurological: Reports: as per HPI Psychiatric: Reports: as per HPI Endocrine: Reports: as per HPI Hematological/Lymphatic: Reports: as per HPI Allergic/Immunologic: Reports: as per HPI Past Medical History - Past Medical History Medical history: Reports: asthma, atrial fibrillation, CHF, COPD, GERD, hypertension, migraine Surgical history: Reports: cholecystectomy, hysterectomy Psychiatric history: Reports: no psych history CUT OFF SAWYER history: Reports: no CUT OFF SAWYER history - Social History Smoking Status: Former smoker Smokeless Tobacco Status: No Alcohol use: Reports: none Drug use: Reports: none Physical Exam - General Limitations: no limitations General appearance: alert, in no apparent distress, other (Short sentence conversational dyspnea) - Head Head exam: atraumatic, normal inspection - Eye Eye exam: Present: normal appearance, PERRL, EOMI - ENT ENT exam: normal exam - Neck Neck exam: Present: normal inspection - Chest Chest inspection: Present: normal inspection. Absent: symmetric chest wall rise - Respiratory Respiratory exam: Present: wheezes (Diffuse inspiratory expiratory wheeze), accessory muscle use, prolonged expiratory phase - Cardiovascular Cardiovascular exam: Present: tachycardia, irregular rhythm - Abdominal Exam Abdominal exam: Present: soft, Non-Tender. Absent: tenderness, guarding, rebound - Extremities Exam Extremities exam: Present: normal inspection, pedal edema (1-2 bilateral pitting ) - Back Exam Back exam: Present: normal inspection - Neurological Exam Neurological exam: Present: alert, oriented X3 - Skin Skin exam: Present: warm, dry, intact, normal color Course Course Narrative: Patient seen and examined. Patient's workup was initiated from triage. Patient does have diffuse inspiratory expiratory wheezes. Patient was given several nebs, IV steroids as well as a positive pressure ventilation. Patient does have conversational dyspnea. Patient will be admitted for hypoxia likely secondary to COPD exacerbation. - Reevaluation(s) Reevaluation #1: Patient's history was reviewed. Patient had a echo in January of this year which showed an EF of 6065%. Patient has a recent admission for COPD exacerbation on Zithromax. Patient was started on a Zithromax during this ED presentation. Given her allergies as well as panic regulation with warfarin. Patient required some anxiolytic for the BiPAP Time: 20:06 Reevaluation #2: Patient's breathing improved following aerosols. Patient is initially refusing the BiPAP due to anxiety. Patient was offered anxiolytic. The patient's record review does show that she has a recent admission in the middle July for COPD exacerbation. Time: 20:22 Vital Signs Temperature 98.4 F 08/07/17 17:02 Pulse Rate 100 08/07/17 17:02 Respiratory Rate 18 08/07/17 17:02 Blood Pressure 157/65 08/07/17 17:02 O2 Sat by Pulse Oximetry 88 08/07/17 17:02 Temperature 98.2 F 08/07/17 23:50 Pulse Rate 96 08/07/17 23:50 Respiratory Rate 19 08/07/17 23:50 Blood Pressure 121/77 08/07/17 23:50 O2 Sat by Pulse Oximetry 95 08/07/17 23:50 Oxygen Delivery Oxygen Delivery Room Air Medical Decision Making - MDM Narrative Medical decision making narrative: 66-year-old female presents for worsening dyspnea. Patient does have history of CHF as well as COPD. On exam the patient appears to have COPD exacerbation. Patient was recently admitted within the past month for COPD exacerbation. Patient notes dyspnea on exertion. Patient has been using her aerosols as scheduled at home over the past couple days. Patient reports some chest pain related to her dyspnea. Patient was found be conversational dyspneic and offered BiPAP. Patient was treated with triple nebs as well as steroids. Patient was also given a Zithromax given the severity of her symptoms. Patient does have antibiotic allergies and is not anticoagulation with Coumadin. Zithromax was thought to be the best medication at this point to help with her symptoms. Patient appears to be in sinus rhythm. Patient's symptoms are most consistent with a COPD exacerbation. Given the fact the patient is anticoagulated pulmonary embolism is less likely. Patient is requiring somewhat increased oxygen demand. Patient's symptoms improved after the aerosols. Patient would benefit from inpatient admission with continued respiratory support and aerosols as well as steroids. - Medical Records Medical records reviewed: Yes I reviewed the patient's medical records. - Lab Data Lab results reviewed: Yes I reviewed the patient's lab results. Result diagrams: 08/07/17 17:55 08/07/17 17:55 Lab Results 08/07/17 08/07/17 08/07/17 Range/Units 17:55 17:55 17:55 WBC 6.7 (4.3-11.1) K/mcL RBC 3.57 L (3.82-4.97) M/mcL Hgb 8.6 L (11.5-15.4) g/dL Hct 31.5 L (35.3-44.9) % MCV 88.2 (83.0-100.0) fL MCH 24.1 L (28.0-33.3) pg MCHC 27.3 L (31.6-35.5) g/dL RDW 15.8 H (11.5-14.5) % Plt Count 152 (140-400) K/mcL MPV 11.7 (9.4-12.4) fL Immature Gran % 0.3 (0-4) % Seg Neutrophils % 77.9 % Lymphocytes % 11.4 % Monocytes % 8.5 % Eosinophils % 1.6 % Basophils % 0.3 % Neutrophils # 5.2 (1.6-8.9) K/mcL Lymphocytes # 0.8 (0.6-4.6) K/mcL Monocytes # 0.6 (0.0-1.3) K/mcL Eosinophils # 0.1 (0.0-0.6) K/mcL Basophils # 0.0 (0.0-0.2) K/mcL Platelet Estimate Normal (Normal) Polychromasia 1+ A (Not Present) PT (9.4-12.1) Seconds INR Sodium 145 (136-145) mEq/L Potassium 4.6 (3.5-5.1) mEq/L Chloride 99 (98-107) mEq/L Carbon Dioxide 43 H* (23-29) mEq/L BUN 21 (8-23) mg/dL Creatinine 0.76 (0.60-1.20) mg/dL Est GFR ( Amer) > 60 (> 60) Est GFR (Non-Af Amer) > 60 (> 60) BUN/Creatinine Ratio 28 H (6-26) Glucose 117 H (70-105) mg/dL Calculated Osmolality 304 H (280-300) Lactic Acid 1.1 (0.5-2.2) mmol/L Calcium 9.3 (8.6-10.3) mg/dL Troponin I (< 0.04) ng/mL B-Natriuretic Peptide (Less than 100) pg/mL 08/07/17 08/07/17 08/07/17 Range/Units 17:55 17:55 17:55 WBC (4.3-11.1) K/mcL RBC (3.82-4.97) M/mcL Hgb (11.5-15.4) g/dL Hct (35.3-44.9) % MCV (83.0-100.0) fL MCH (28.0-33.3) pg MCHC (31.6-35.5) g/dL RDW (11.5-14.5) % Plt Count (140-400) K/mcL MPV (9.4-12.4) fL Immature Gran % (0-4) % Seg Neutrophils % % Lymphocytes % % Monocytes % % Eosinophils % % Basophils % % Neutrophils # (1.6-8.9) K/mcL Lymphocytes # (0.6-4.6) K/mcL Monocytes # (0.0-1.3) K/mcL Eosinophils # (0.0-0.6) K/mcL Basophils # (0.0-0.2) K/mcL Platelet Estimate (Normal) Polychromasia (Not Present) PT 22.6 H (9.4-12.1) Seconds INR 2.1 Sodium (136-145) mEq/L Potassium (3.5-5.1) mEq/L Chloride (98-107) mEq/L Carbon Dioxide (23-29) mEq/L BUN (8-23) mg/dL Creatinine (0.60-1.20) mg/dL Est GFR ( Amer) (> 60) Est GFR (Non-Af Amer) (> 60) BUN/Creatinine Ratio (6-26) Glucose (70-105) mg/dL Calculated Osmolality (280-300) Lactic Acid (0.5-2.2) mmol/L Calcium (8.6-10.3) mg/dL Troponin I < 0.03 (< 0.04) ng/mL B-Natriuretic Peptide 25 (Less than 100) pg/mL - Radiology Data Radiology results reviewed: Yes I reviewed the patient's radiology results. Chest X-Ray 08/07/17 17:19 IMPRESSION: Findings in keeping with congestive heart failure and mild pulmonary edema. D/ / Abraham Gar MD / Abraham Gar MD Interpreting Provider: Abraham Gar MD - EKG Data EKG #1 EKG attestation: Yes I reviewed and interpreted this EKG. EKG shows normal: sinus rhythm Rate: normal Rhythm: NSR [place]/QRS: normal Q waves: aVR, v1, v2 T wave inversions noted in: aVR Interpretation: no acute changes, unchanged when compared to prior tracing (date ) S.B.Miguel A - Arlet.Alysha Situation: Demographics Background: Presenting Complaint Assessment: Vital Signs, Course and respsone to treatment, Patient/Family Expectation Recommendation: Barrier(s) to disposition, Recommendation based on pending studies, treatments, or consults S.B.A.RElida Report Given to: Dr. Josue VillarrealAJesus Repor Time: 21:31 Attestation Statement - Attestation Attestation: I, Trevor Way MD, personally evaluated this patient and discussed their management with the resident physician. I reviewed the resident's note and agree with the documented findings, medical decision making, and plan of care. 66-year-old female presents to the emergency department with a complaint of increasing shortness of breath over the past several days. Patient has a history of COPD and also CHF. She is on home oxygen at 3 L/m by nasal cannula continuously. She complains that over the past several days her breathing has become much worse, especially with any exertion. She reports that her oxygen saturation will be in the upper 90s at rest but if she gets up and walks across the room she gets extremely short of breath and it drops into the 50s. No increased cough or fever. No significant chest pain. She does have some swelling of her lower extremities which is chronic to some degree but worse. On examination patient is a well-developed morbidly obese female in no acute distress. She is alert and oriented 3. There is no cyanosis or diaphoresis. Breath sounds are decreased bilaterally with scattered bilateral expiratory wheezes. No rales noted. Heart regular rate and rhythm. Abdomen soft and nontender with normal bowel sounds. Labs reviewed. Chest x-ray shows CHF with mild pulmonary edema. The hospitalist, Dr. Salas, was consulted and accepted admission of the patient.
[2017-08-07 19:49] LABS: INR 2.1; Prothrombin Time 22.6 Seconds (9.4-12.1)
[2017-08-07] MEDS ORDERED: *HR* LORazepam 2 MG/ML VIAL IVP ONE (19:56)
[2017-08-07] MEDS ORDERED: Azithromycin 500 MG in D5% in Water 250 ML IVPB ONE (20:04)
[2017-08-08] MEDS ORDERED: Naloxone 0.4 MG/ML INJ IVP PRN (04:02)
[2017-08-08] MEDS ORDERED: Ipratropium/Albuterol Neb 3 ML IH PRN (04:06)
[2017-08-08 05:29] LABS: Immature Granulocytes % 0.6 % (0-4); Monocytes % 0.9 %; Red Blood Count 3.44 M/mcL (3.82-4.97)
[2017-08-08 05:31] LABS: Basophils % 0.2 %; Hemoglobin 8.2 g/dL (11.5-15.4); Lymphocytes # 0.4 K/mcL (0.6-4.6); Lymphocytes % 5.3 %; Mean Corpuscular HGB Conc 27.3 g/dL (31.6-35.5); Mean Corpuscular Hemoglobin 23.8 pg (28.0-33.3); Mean Corpuscular Volume 87.2 fL (83.0-100.0); Monocytes # 0.1 K/mcL (0.0-1.3); Neutrophils # 6.1 K/mcL (1.6-8.9); Nucleated Red Blood Cells 0.3 /100 WBC (0); Platelet Count 156 K/mcL (140-400); Red Cell Distribution Width 15.7 % (11.5-14.5)
[2017-08-08 05:33] LABS: Prothrombin Time 22.2 Seconds (9.4-12.1)
[2017-08-08 05:49] LABS: BUN/Creatinine Ratio 31 (6-26); Blood Urea Nitrogen 23 mg/dL (8-23); Calcium 9.3 mg/dL (8.6-10.3); Carbon Dioxide 41 mEq/L (23-29); Chloride 96 mEq/L (98-107); Glucose 211 mg/dL (70-105); Magnesium 2.1 mg/dL (1.6-2.6); Osmolality,Calculated 300 (280-300); Sodium 140 mEq/L (136-145); eGFR For African Americans > 60 (> 60); eGFR For Non-African Americans > 60 (> 60)
[2017-08-08 05:51] LABS: Hypochromasia Present (Not Present); Large Platelets Present (Not Present); Platelet Estimate Normal (Normal); Polychromasia 1+ (Not Present)
--- NOTE | 2017-08-08 06:36 | Internal Med History&Physical ---
Date of Encounter: 08/08/17 Time of Encounter: 02:00 Assessment and Plan (1) COPD with exacerbation Current visit: No Status: Acute Patient has a worsening shortness of breath. With wheezing. Consider COPD exacerbation. We will place patient on antibiotic, steroid, bronchodilator. Continue oxygen supportive treatment. (2) Acute on chronic respiratory failure with hypoxemia Current visit: No Status: Resolved Due to COPD and CHF exacerbation. Will treat underlying disease. Continue oxygen supportive treatment (3) Morbid obesity Current visit: No Status: Chronic Need lifestyle modification (4) Atrial fibrillation Current visit: No Status: Chronic History of paroxysmal A. fib. Now sinus rhythm. On Coumadin for anticoagulation Qualifiers: Atrial fibrillation type: paroxysmal Qualified Code(s): I48.0 - Paroxysmal atrial fibrillation (5) DVT prophylaxis Current visit: No Status: Acute Patient is on Coumadin (6) CHF exacerbation Current visit: No Status: Acute Patient has shortness of breath, increased bilateral pedal edema, chest x-ray shows pulmonary vascular congestion. Patient has negative BNP but she has morbid obesity, probably false negative. - We will treat patient with IV Lasix - Fluid restriction - Strict I and O - Closely monitor patient Qualifiers: Congestive heart failure type: diastolic Qualified Code(s): I50.33 - Acute on chronic diastolic (congestive) heart failure Internal Medicine - H&P: HPI Chief complaint: Shortness of breath Admitted From: Home Plans for Post Hospital Care: Home History of present illness: Ms. Guevara is a 66 year old female with a history of COPD, asthma, A. fib, CHF, present to ER for exertional shortness of breath for 7 days. Patient said she has desaturation on exertion. Patient has no fever, no cough. She has mild to moderate headache. Patient has a recent fall without loss of consciousness. Patient has mild chest pain, no nausea, no vomiting, no diaphoresis, no diarrhea , no urination symptoms. Patient has increased bilateral leg swelling. Patient denies runny nose or sore throat. Past Med Surg Social Fam HX - Past Medical History Medical history: asthma, atrial fibrillation, CHF, COPD, GERD, hypertension, migraine Psychiatric history: no psych history - Past Surgical History Surgical History: cholecystectomy, hysterectomy - Social History Smoking Status: Former smoker Smokeless Tobacco Status: No Alcohol use: none Drug use: none - Family History Sister Living Status: Hx Family Cardiac Disorders: Yes Hx Family Respiratory Disorders: Yes (copd) Mother Adopted: No Family Member Ethnicity: Non- Twin of Family Member: Yes, Fraternal Living Status: Hx Family Cardiac Disorders: Yes (HTN) Hx Family Respiratory Disorders: No Hx Family Cancer: Yes (Melanoma) Hx Family GI Disorders: Yes (Constipation) Hx Family Endocrine Disorder: No Hx Family Neuromuscular Disorders: No Hx Family Neurologic Disorders: No Hx Family HEENT Disorders: No Hx Family Autoimmune Disorders: No Father Adopted: No Family Member Ethnicity: Non- Twin of Family Member: Yes, Fraternal Living Status: Hx Family Cardiac Disorders: Yes (Thrombosis) Hx Family Respiratory Disorders: Yes (self,sister) Hx Family Cancer: No Hx Family GI Disorders: Yes (self) Hx Family Endocrine Disorder: No Hx Family Neuromuscular Disorders: No Hx Family Neurologic Disorders: No Hx Family HEENT Disorders: No Hx Family Autoimmune Disorders: No Internal Medicine - H&P: Meds Alendronate Sodium [Fosamax] 70 mg PO WE 10/28/15 [History] Ascorbate Calcium [Vitamin C] 500 mg PO DAILY 10/28/15 [History] Cholecalciferol (Vitamin D3) [Vitamin D3] 5,000 unit PO DAILY 10/28/15 [History] Cyanocobalamin (Vitamin B-12) [Vitamin B-12] 100 mcg PO DAILY 10/28/15 [History] Tiotropium [Spiriva] 18 mcg IH HS 10/28/15 [History] Warfarin [Coumadin] 5 mg PO DAILY 10/28/15 [History] Dexlansoprazole [Dexilant] 60 mg PO DAILY 07/03/16 [History] Ferrous Sulfate [Iron] 325 mg PO DAILY 07/03/16 [History] Albuterol Sulfate [Proventil Hfa] 2 puff IH Q4H PRN 09/14/16 [History] Oxygen 3 l IH AD 10/24/16 [History] Fluticasone/Salmeterol [Advair 250-50 Diskus] 1 puff IH BID #1 blst.w.dev [Rx] Montelukast [Singulair] 10 mg PO DAILY 11/29/16 [History] Ropinirole HCl [Requip] 2 mg PO HS 11/29/16 [History] Magnesium Oxide [Mag-Ox] 400 mg PO DAILY #30 tablet 12/04/16 [Rx] Furosemide [Lasix] 20 mg PO BID #60 01/11/17 [Rx] Calcium Carbonate [Calcium] 600 mg PO BID 05/08/17 [History] Fluorometholone [Fml Forte] 1 drop LEFT EYE QID 05/08/17 [History] Lisinopril [Zestril] 2.5 mg PO BID 05/08/17 [History] Diltiazem CD (24hr) [Cardizem CD] 120 mg PO DAILY cap.er.24h 05/21/17 [Rx] Acetaminophen/Diphenhydramine [Percogesic 325-12.5 mg Tablet] 1 - 2 tab PO HS PRN 07/19/17 [History] Spironolactone [Aldactone] 50 mg PO DAILY 07/19/17 [History] Propafenone HCl [Propafenone HCl ER] 225 mg PO Q12H 07/20/17 [History] Albuterol Neb [Proventil Neb] 2.5 mg IH Q4H PRN #30 inhsol 07/23/17 [Rx] DiphenhydraMINE [Benadryl] 25 mg PO HS PRN capsule 07/23/17 [Rx] GuaiFENesin ER [Mucinex] 600 mg PO BID PRN #1 bottle 07/23/17 [Rx] Rhythmol 225 mg PO BID 08/08/17 [History] 3 Allergy/AdvReac Type Severity Reaction Status Date / Time aspirin [ASA] Allergy Difficulty Verified 08/07/17 20:01 Breathing Penicillins Allergy Hives Verified 08/07/17 20:01 Sulfa (Sulfonamide Allergy Rash Verified 08/07/17 20:01 Antibiotics) All Systems PM: A 10-system review of systems was performed and is negative for pertinent findings except as documented above in the HPI. - Constitutional Vitals: Temp Pulse Resp BP Pulse Ox 98.5 F 94 18 187/82 96 08/08/17 04:50 08/08/17 04:50 08/08/17 04:50 08/08/17 04:50 08/08/17 04:50 General appearance: Present: A&O X 3, no acute distress, answers questions appropriately - Head Head exam: Present: atraumatic, normocephalic - Eye Eye exam: Present: PERRL, conjuntiva pink, sclera anicteric Pupils: Present: PERRL - Neck Neck exam general surgery: Present: supple, trachea midline. Absent: lymphadenopathy - Respiratory Respiratory exam: Present: CTAB, wheezes (Scattered wheezes bilaterally). Absent: accessory muscle use, rales, rhonchi - Cardiovascular Cardiovascular exam: Present: RRR, +S1, +S2. Absent: diastolic murmur, gallop, rubs, systolic murmur - GI/Abdominal GI/Abdominal exam: Present: normal bowel sounds, soft, no peritoneal signs. Absent: distended, tenderness - Extremities Exam Extremities exam: Present: pedal edema (Bilateral moderate pitting pedal edema) , warm, radial pulses palpable and symmetrical. Absent: calf tenderness, cyanotic - Neurological Exam Neurological exam: Present: CN II-XII intact, oriented X3, no focal deficits. Absent: pronater drift, facial droop, speech deficit - Skin Skin exam: Present: dry, intact Internal Med - H&P Results - Labs CBC & Chem 7: 08/08/17 04:44 08/08/17 04:44 Labs: Short CBC 08/08/17 Range/Units 04:44 WBC 6.6 (4.3-11.1) K/mcL Hgb 8.2 L (11.5-15.4) g/dL Hct 30.0 L (35.3-44.9) % Plt Count 156 (140-400) K/mcL Neutrophils # 6.1 (1.6-8.9) K/mcL BMP 08/08/17 04:44 Sodium 140 Potassium 5.0 Chloride 96 L Carbon Dioxide 41 H* BUN 23 Creatinine 0.74 Glucose 211 H Calcium 9.3 Cardiac Enzymes 08/08/17 Range/Units 04:44 Troponin I < 0.03 (< 0.04) ng/mL - EKG Data -: EKG Interpreted by Myself EKG shows normal: sinus rhythm Rate: normal
[2017-08-08] MEDS ORDERED: Dexlansoprazole [Dexilant] 60 MG PO SCH (09:00)
[2017-08-08] MEDS: Magnesium Oxide 400 MG TABLET PO SCH (09:02)
[2017-08-08] MEDS: predniSONE 20 MG TABLET PO SCH (09:03)
[2017-08-08] MEDS: Cholecalciferol (D-3) 1,000 UNIT TABLET PO SCH (09:03)
[2017-08-08] MEDS: Ascorbic Acid 500 MG TABLET PO SCH (09:03)
[2017-08-08] MEDS: Furosemide 40 MG/4 ML VIAL IVP SCH (09:03)
[2017-08-08] MEDS: Diltiazem CD (24hr) 120 MG CAPSULE PO SCH (09:03)
--- NOTE | 2017-08-08 09:03 | Internal Med Progress Note ---
<Audie Meyer - Last Filed: 08/08/17 10:33> Date of Encounter: 08/08/17 Time of Encounter: 08:15 - Assessment and plan (1) Acute and chronic respiratory failure with hypoxia Current Visit: No Status: Acute Assessment and plan: - Worsening shortness of breath for a week with reported desaturation to 60s on exertion prior to admission. - CXR showed mild pulmonary edema suggestive of CHF but no cosolidation. - Likely secondary to COPD exacerbation in the setting of CHF and possible underlying FUENTES/OHS. - Continue prednisone, Symbicort, azithromycin, scheduled bronchodilators and supplemental oxygen for COPD. - Continue diuresis for CHF. - Patient may benefit from non-invasive ventilation use. - Continue to monitor patient's respiratory status closely. (2) Acute exacerbation of chronic obstructive airways disease Current Visit: No Status: Acute Assessment and plan: - Continue prednisone, Symbicort, azithromycin, scheduled bronchodilators and supplemental oxygen. (3) Heart failure with preserved ejection fraction Current Visit: No Status: Chronic Assessment and plan: - Echo on 01/07/17 showed LVEF 60-65% with mild LV diastolic dysfunction. - Continue Lasix 40 mg IV daily. - Strict I/O, daily weight and fluid restriction. (4) Atrial fibrillation Current Visit: No Status: Chronic Assessment and plan: - Currently rate-controlled. Continue home regimen of Cardizem and Rhythmol. - Continue warfarin for anticoagulation. Latest INR at 2.0. Qualifiers: Atrial fibrillation type: paroxysmal Qualified Code(s): I48.0 - Paroxysmal atrial fibrillation (5) Fall Current Visit: Yes Status: Acute Assessment and plan: - Reported fall recently. Per patient, it's because of wet floor. - CT head found no acute intracranial abnormality. - PT/OT consult to evaluate and manage. Qualifiers: Encounter type: subsequent encounter Qualified Code(s): W19.XXXD - Unspecified fall, subsequent encounter (6) Phalanx of the foot fracture Current Visit: Yes Status: Acute Assessment and plan: - Right foot XR on 07/31/17 found a nondisplaced fracture of the 5th proximal phalanx. Qualifiers: Encounter type: subsequent encounter Toe: lesser toe Fracture type: closed Phalanx: proximal Fracture alignment: nondisplaced Laterality: right Fracture healing: with routine healing Qualified Code(s): S92.514D - Nondisplaced fracture of proximal phalanx of right lesser toe(s), subsequent encounter for fracture with routine healing (7) Morbid obesity Current Visit: No Status: Chronic Assessment and plan: - BMI 62 (8) DVT prophylaxis Current Visit: No Status: Acute Assessment and plan: - Continue warfarin. Latest INR 2.0. - Subjective Interval history: This note is NOT for billing purpose. Patient was seen and examined this morning. Patient reports breathing better compared to yesterday. Patient states having significant dyspnea on exertion with O2 sat drop to 60s and associated chest "squeezing" pain prior to admission. Patient denies orthopnea, cough, fever, chills, abdominal pain, nausea, vomiting, diarrhea. Patient reports using 3L oxygen at home and being compliant with her COPD medications use. Patient denies recent exposure to smoking. - Constitutional Vitals: Temp Pulse Resp BP Pulse Ox 99.0 F 95 16 170/79 95 08/08/17 07:24 08/08/17 07:24 08/08/17 07:24 08/08/17 07:24 08/08/17 07:24 General appearance: Present: A&O X 3, no acute distress, answers questions appropriately - Head Head exam: Present: normal inspection - Eye Eye exam: Present: EOMI, conjuntiva pink, sclera anicteric - Neck Neck exam general surgery: Present: normal inspection, supple, trachea midline - Respiratory Respiratory exam: Present: wheezes. Absent: accessory muscle use - Cardiovascular Cardiovascular exam: Present: RRR, +S1, +S2 - GI/Abdominal GI/Abdominal exam: Present: normal bowel sounds, soft, no peritoneal signs. Absent: tenderness - Extremities Exam Extremities exam: Present: pedal edema ([id number] BLE edema), warm. Absent: cyanotic - Neurological Exam Neurological exam: Present: alert, oriented X3, no focal deficits. Absent: facial droop, speech deficit - Skin Skin exam: Present: dry, warm Internal Medicine: Result - Labs CBC & Chem 7: 08/08/17 04:44 08/08/17 04:44 Labs: Short CBC 08/08/17 Range/Units 04:44 WBC 6.6 (4.3-11.1) K/mcL Hgb 8.2 L (11.5-15.4) g/dL Hct 30.0 L (35.3-44.9) % Plt Count 156 (140-400) K/mcL Neutrophils # 6.1 (1.6-8.9) K/mcL [facility] 08/08/17 04:44 Sodium 140 Potassium 5.0 Chloride 96 L Carbon Dioxide 41 H* BUN 23 Creatinine 0.74 Glucose 211 H Calcium 9.3 Cardiac Enzymes 08/08/17 Range/Units 04:44 Troponin I < 0.03 (< 0.04) ng/mL - ABG Interpretation ABG results: PT/INR, D-dimer PT 22.2 Seconds (9.4-12.1) H 08/08/17 04:44 Consult Discharge Plan - Plan Referrals: Lisbet Ray, MANOLO [Primary Care Provider] - <Landry Cool - Last Filed: 08/08/17 18:12> Date of Encounter: 08/08/17 - Constitutional Vitals: Temp Pulse Resp BP Pulse Ox 98.5 F 102 16 172/77 94 08/08/17 15:43 08/08/17 15:43 08/08/17 15:43 08/08/17 15:43 08/08/17 15:43 Internal Medicine: Result - Labs CBC & Chem 7: 08/08/17 04:44 08/08/17 04:44 Labs: Short CBC 08/08/17 Range/Units 04:44 WBC 6.6 (4.3-11.1) K/mcL Hgb 8.2 L (11.5-15.4) g/dL Hct 30.0 L (35.3-44.9) % Plt Count 156 (140-400) K/mcL Neutrophils # 6.1 (1.6-8.9) K/mcL [facility] 08/08/17 04:44 Sodium 140 Potassium 5.0 Chloride 96 L Carbon Dioxide 41 H* BUN 23 Creatinine 0.74 Glucose 211 H Calcium 9.3 Cardiac Enzymes 08/08/17 08/08/17 Range/Units 04:44 11:40 Troponin I < 0.03 < 0.03 (< 0.04) ng/mL - ABG Interpretation ABG results: PT/INR, D-dimer PT 22.2 Seconds (9.4-12.1) H 08/08/17 04:44 - Impressions Impressions Echocardiogram 08/08/17 04:08 Impressions: LVEF 60-65%. Mild left ventricular diastolic dysfunction. Mildly dilated RV with normal function. No significant valvular dysfunction. No pulmonary hypertension by TR gradient, 28 mmHg. IVC is not well visualized. Left Ventricular Wall Motion: Rest Echo Findings The apical anterior, mid anterior, basal anterior, mid anterior septal and mid inferior lateral hearn were not visualized. All other wall segments showed normal motion. Findings: Study Quality * Technically challenging due to body habitus. ECG Findings * Normal sinus rhythm. Left Ventricle * LVEF 60-65%. * Normal appearing LV size and wall thickness (PLAX measurements were not well obtained). * Mild left ventricular diastolic dysfunction. Right Ventricle * Mildly dilated RV with normal function. Left Atrium * Normal left atrial size. Right Atrium * Right atrium is not well visualized. Aortic Valve * No aortic regurgitation. * Aortic valve not well visualized. * No aortic stenosis. Mitral Valve * Normal mitral valve structure. * No mitral stenosis. * Mild mitral annular calcification * Trace mitral regurgitation. Tricuspid Valve * Tricuspid valve not well visualized. * Trace tricuspid regurgitation. Pulmonic Valve * Pulmonic valve is not well visualized. * No pulmonic stenosis. * No pulmonic regurgitation. Pulmonary Artery * Pulmonary artery not well visualized. Aorta * Normally sized aortic root. * Not well visualized. Pericardium * There is no pericardial effusion present. Interatrial Septum * Interatrial septum not well evaluated. IVC * The IVC is not well evaluated. - Attending Attestation I examined this patient and my medical decision-making was reviewed with the Resident Physician on 08/08/17. I agree with the documented findings, disposition and treatment plan as described except to the extent set forth below. Ms Guevara has been admitted earlier today for acute exac COPD and CHF. Exam Alert. Comfortable at this time. Edema present Agree with assessment and plan as above.
[2017-08-08] MEDS: Cyanocobalamin (B-12) 1,000 MCG TABLET PO SCH (09:05)
[2017-08-08] MEDS ORDERED: Budesonide/Formoterol 80/4.5 MDI IH SCH (10:00)
[2017-08-08] MEDS ORDERED: Perflutren Lipid Microsphere 1.3 ML in 0.9 % Sodium Chloride 8.7 ML IVP ONE (10:03)
[2017-08-08] MEDS: Ipratropium/Albuterol Neb 3 ML IH SCH ×3 (11:05→21:08)
[2017-08-08] MEDS: Fluorometholone OPTH 5 ML BOTTLE LEFT EYE SCH ×4 (12:38→21:28)
[2017-08-08] MEDS ORDERED: D5% in Water 1,000 ML IVC PRN (15:19)
[2017-08-08] MEDS ORDERED: Dextrose Gel 15 GM/37.5 ML TUBE PO PRN ×2 (15:19)
[2017-08-08] MEDS ORDERED: *HR* Dextrose 50 % in Water (Syg) 50 ML SYRINGE IVP PRN (15:19)
--- NOTE | 2017-08-08 16:26 | Electrocardiograph Report ---
[address] [place] [address] Test Date: 2017-08-07 Pat Name: Alyssa Guevara Department: 104 Room: 2N12 Gender: F Track Walker: GIULIANA : 1950 Requested By: Sharla See Order Number: [id number] Reading MD: Taniya Cedillo Measurements Intervals [place] Rate: 89 P: 61 CO: 158 QRS: 52 QRSD: 79 T: 50 QT: 324 QTc: 370 Interpretive Statements SINUS RHYTHM SEPTAL MYOCARDIAL INFARCTION, PROBABLY OLD Electronically Signed On 08-08-2017 16:24:50 EST by Taniya Cedillo
[2017-08-08] MEDS ORDERED: *HR* Warfarin 5 MG TABLET PO ONE (18:00)
[2017-08-08] MEDS ORDERED: Warfarin perPT PO PRN (18:00)
[2017-08-08] MEDS: Insulin LISPRO 300 UNITS/3 ML VIAL SQ SCH ×2 (19:48→21:45)
[2017-08-08] MEDS: ADVAIR IH SCH (21:12)
[2017-08-08] MEDS: rOPINIRole 1 MG TABLET PO SCH (21:27)
[2017-08-08] MEDS: TIOTROPIUM IH SCH (21:30)
[2017-08-08] MEDS: PROPAFENONE 225 MG PO SCH (21:31)
[2017-08-08] MEDS: Azithromycin 500 MG in D5% in Water 250 ML IVPB SCH (21:37)
[2017-08-09] MEDS: Ipratropium/Albuterol Neb 3 ML IH SCH ×4 (04:01→22:19)
[2017-08-09 05:42] LABS: Basophils % 0.1 %; Hematocrit 30.1 % (35.3-44.9); Hemoglobin 8.5 g/dL (11.5-15.4); Immature Granulocytes % 0.4 % (0-4); Lymphocytes # 0.7 K/mcL (0.6-4.6); Lymphocytes % 10.5 %; Mean Corpuscular HGB Conc 28.2 g/dL (31.6-35.5); Mean Corpuscular Hemoglobin 24.1 pg (28.0-33.3); Mean Corpuscular Volume 85.3 fL (83.0-100.0); Mean Platelet Volume 11.8 fL (9.4-12.4); Monocytes # 0.7 K/mcL (0.0-1.3); Monocytes % 10.4 %; Neutrophils # 5.5 K/mcL (1.6-8.9); Nucleated Red Blood Cells 0.3 /100 WBC (0); Platelet Count 196 K/mcL (140-400); Red Blood Count 3.53 M/mcL (3.82-4.97); Red Cell Distribution Width 15.9 % (11.5-14.5); Segmented Neutrophils % 78.6 %
[2017-08-09 05:45] LABS: INR 1.8; Prothrombin Time 19.2 Seconds (9.4-12.1)
[2017-08-09 05:55] LABS: BUN/Creatinine Ratio 46 (6-26); Blood Urea Nitrogen 38 mg/dL (8-23); Calcium 9.4 mg/dL (8.6-10.3); Carbon Dioxide 42 mEq/L (23-29); Chloride 96 mEq/L (98-107); Glucose 151 mg/dL (70-105); Osmolality,Calculated 308 (280-300); Potassium 4.3 mEq/L (3.5-5.1); Sodium 143 mEq/L (136-145); eGFR For African Americans > 60 (> 60); eGFR For Non-African Americans > 60 (> 60)
[2017-08-09 06:12] LABS: Anisocytosis 1+ (Not Present); Hypochromasia Present (Not Present); Platelet Estimate Normal (Normal); Poikilocytosis 1+ (Not Present)
--- NOTE | 2017-08-09 08:55 | Internal Med Progress Note ---
<Audie Meyer - Last Filed: 08/09/17 09:41> Date of Encounter: 08/09/17 Time of Encounter: 08:15 - Assessment and plan (1) Acute and chronic respiratory failure with hypoxia Current Visit: No Status: Acute Assessment and plan: - Worsening shortness of breath for a week with reported desaturation to 60s on exertion prior to admission. - CXR showed mild pulmonary edema suggestive of CHF but no cosolidation. - Likely secondary to COPD exacerbation in the setting of CHF and possible underlying FUENTES/OHS. - Continue prednisone, Symbicort, azithromycin, scheduled bronchodilators and supplemental oxygen for COPD. - Continue diuresis for CHF. - Continue to monitor patient's respiratory status closely. (2) Acute exacerbation of chronic obstructive airways disease Current Visit: No Status: Acute Assessment and plan: - Continue prednisone, Symbicort, azithromycin, scheduled bronchodilators and supplemental oxygen. (3) Heart failure with preserved ejection fraction Current Visit: No Status: Chronic Assessment and plan: - Echo on 01/07/17 showed LVEF 60-65% with mild LV diastolic dysfunction. - Net -750 mL since admission. - Continue Lasix 40 mg IV daily. - Strict I/O, daily weight and fluid restriction. (4) Atrial fibrillation Current Visit: No Status: Chronic Assessment and plan: - Currently rate-controlled. Continue home regimen of Cardizem and Rhythmol. - Continue warfarin pharmacy to dose for anticoagulation. INR 1.8. Qualifiers: Atrial fibrillation type: paroxysmal Qualified Code(s): I48.0 - Paroxysmal atrial fibrillation (5) Fall Current Visit: Yes Status: Acute Assessment and plan: - Reported fall recently. Per patient, it's because of wet floor. - CT head found no acute intracranial abnormality. - PT/OT recommend home health after discharge. Qualifiers: Encounter type: subsequent encounter Qualified Code(s): W19.XXXD - Unspecified fall, subsequent encounter (6) Phalanx of the foot fracture Current Visit: Yes Status: Acute Assessment and plan: - Right foot XR on 07/31/17 found a nondisplaced fracture of the 5th proximal phalanx. - Patient is able to bear weight and ambulate. Qualifiers: Encounter type: subsequent encounter Toe: lesser toe Fracture type: closed Phalanx: proximal Fracture alignment: nondisplaced Laterality: right Fracture healing: with routine healing Qualified Code(s): S92.514D - Nondisplaced fracture of proximal phalanx of right lesser toe(s), subsequent encounter for fracture with routine healing (7) Morbid obesity Current Visit: No Status: Chronic Assessment and plan: - BMI 62 (8) DVT prophylaxis Current Visit: No Status: Acute Assessment and plan: - Continue warfarin. INR 1.8 today. - Subjective Interval history: Patient was seen and examined this morning. Patient reports breathing continues to improve. Patient still has some chest pain while running out breath. Patient denies cough, fever, abdominal pain, nausea, vomiting, diarrhea. - Constitutional Vitals: Temp Pulse Resp BP Pulse Ox 98.1 F 75 18 172/79 98 08/09/17 06:53 08/09/17 06:53 08/09/17 06:53 08/09/17 06:53 08/09/17 06:53 General appearance: Present: A&O X 3, no acute distress, obese, answers questions appropriately - Head Head exam: Present: normal inspection - Eye Eye exam: Present: EOMI, conjuntiva pink, sclera anicteric - Neck Neck exam general surgery: Present: normal inspection, supple, trachea midline - Respiratory Respiratory exam: Present: decreased breath sounds. Absent: accessory muscle use - Cardiovascular Cardiovascular exam: Present: RRR, +S1, +S2 - GI/Abdominal GI/Abdominal exam: Present: normal bowel sounds, soft, no peritoneal signs. Absent: tenderness - Extremities Exam Extremities exam: Present: pedal edema (Yzwmcnjb-af-[id number] BLE edema), warm. Absent: cyanotic - Neurological Exam Neurological exam: Present: alert, no focal deficits. Absent: facial droop, speech deficit - Skin Skin exam: Present: dry, warm Internal Medicine: Result - Labs CBC & Chem 7: 08/09/17 04:50 08/09/17 04:50 Labs: Short CBC 08/09/17 Range/Units 04:50 WBC 7.0 (4.3-11.1) K/mcL Hgb 8.5 L (11.5-15.4) g/dL Hct 30.1 L (35.3-44.9) % Plt Count 196 (140-400) K/mcL Neutrophils # 5.5 (1.6-8.9) K/mcL BMP 08/09/17 04:50 Sodium 143 Potassium 4.3 Chloride 96 L Carbon Dioxide 42 H* BUN 38 H Creatinine 0.82 Glucose 151 H Calcium 9.4 Cardiac Enzymes 08/08/17 Range/Units 11:40 Troponin I < 0.03 (< 0.04) ng/mL - ABG Interpretation ABG results: PT/INR, D-dimer PT 19.2 Seconds (9.4-12.1) H 08/09/17 04:50 - Impressions Impressions Echocardiogram 08/08/17 04:08 Impressions: LVEF 60-65%. Mild left ventricular diastolic dysfunction. Mildly dilated RV with normal function. No significant valvular dysfunction. No pulmonary hypertension by TR gradient, 28 mmHg. IVC is not well visualized. Left Ventricular Wall Motion: Rest Echo Findings The apical anterior, mid anterior, basal anterior, mid anterior septal and mid inferior lateral hearn were not visualized. All other wall segments showed normal motion. Findings: Study Quality * Technically challenging due to body habitus. ECG Findings * Normal sinus rhythm. Left Ventricle * LVEF 60-65%. * Normal appearing LV size and wall thickness (PLAX measurements were not well obtained). * Mild left ventricular diastolic dysfunction. Right Ventricle * Mildly dilated RV with normal function. Left Atrium * Normal left atrial size. Right Atrium * Right atrium is not well visualized. Aortic Valve * No aortic regurgitation. * Aortic valve not well visualized. * No aortic stenosis. Mitral Valve * Normal mitral valve structure. * No mitral stenosis. * Mild mitral annular calcification * Trace mitral regurgitation. Tricuspid Valve * Tricuspid valve not well visualized. * Trace tricuspid regurgitation. Pulmonic Valve * Pulmonic valve is not well visualized. * No pulmonic stenosis. * No pulmonic regurgitation. Pulmonary Artery * Pulmonary artery not well visualized. Aorta * Normally sized aortic root. * Not well visualized. Pericardium * There is no pericardial effusion present. Interatrial Septum * Interatrial septum not well evaluated. IVC * The IVC is not well evaluated. Consult Discharge Plan - Plan Referrals: Lisbet Ray, LEGAL ADMINISTRATOR [Primary Care Provider] - <Landry Cool - Last Filed: 08/09/17 18:29> Date of Encounter: 08/09/17 - Assessment and plan (1) Acute and chronic respiratory failure with hypoxia Current Visit: No Status: Acute (2) Acute exacerbation of chronic obstructive airways disease Current Visit: No Status: Acute (3) Atrial fibrillation Current Visit: No Status: Chronic Qualifiers: Atrial fibrillation type: paroxysmal Qualified Code(s): I48.0 - Paroxysmal atrial fibrillation (4) Anemia Current Visit: No Status: Chronic Qualifiers: Anemia type: iron deficiency Iron deficiency anemia type: other iron deficiency Qualified Code(s): D50.8 - Other iron deficiency anemias (5) Diastolic CHF Current Visit: No Status: Chronic Qualifiers: Congestive heart failure chronicity: acute on chronic Qualified Code(s): I50.33 - Acute on chronic diastolic (congestive) heart failure (6) Morbid obesity Current Visit: No Status: Chronic (7) Hypertension Current Visit: No Status: Chronic Qualifiers: Hypertension type: essential hypertension Qualified Code(s): I10 - Essential (primary) hypertension (8) Hypothyroid Current Visit: No Status: Chronic Qualifiers: Hypothyroidism type: acquired Qualified Code(s): E03.9 - Hypothyroidism, unspecified - Constitutional Vitals: Temp Pulse Resp BP Pulse Ox 97.9 F 95 15 160/70 96 08/09/17 15:38 08/09/17 15:38 08/09/17 16:03 08/09/17 15:38 08/09/17 16:03 Internal Medicine: Result - Labs CBC & Chem 7: 08/09/17 04:50 08/09/17 04:50 Labs: Short CBC 08/09/17 Range/Units 04:50 WBC 7.0 (4.3-11.1) K/mcL Hgb 8.5 L (11.5-15.4) g/dL Hct 30.1 L (35.3-44.9) % Plt Count 196 (140-400) K/mcL Neutrophils # 5.5 (1.6-8.9) K/mcL BMP 08/09/17 04:50 Sodium 143 Potassium 4.3 Chloride 96 L Carbon Dioxide 42 H* BUN 38 H Creatinine 0.82 Glucose 151 H Calcium 9.4 - ABG Interpretation ABG results: PT/INR, D-dimer PT 19.2 Seconds (9.4-12.1) H 08/09/17 04:50 - Attending Attestation I examined this patient and my medical decision-making was reviewed with the Resident Physician on 08/09/17. I agree with the documented findings, disposition and treatment plan as described except to the extent set forth below. Ms Guevara is currently admitted for acute exac COPD/CHF. She remains moderate to high risk due to potential for worsening clinical and respiratory status. Ms Guevara is up in chair. She is complaining of palpitations. No CP. Dyspnea seems little better. No fever or chills. Exam Alert. Comfortable Mucus membranes dry Heart reg Lungs diminished Abd soft I/P 1. COPD exac 2. CHF Further diagnoses and plan as above.
[2017-08-09] MEDS: ADVAIR IH SCH ×2 (10:52→22:18)
[2017-08-09] MEDS: Diltiazem CD (24hr) 120 MG CAPSULE PO SCH (11:09)
[2017-08-09] MEDS: Insulin LISPRO 300 UNITS/3 ML VIAL SQ SCH ×4 (11:09→21:19)
[2017-08-09] MEDS: predniSONE 20 MG TABLET PO SCH (11:10)
[2017-08-09] MEDS: Ascorbic Acid 500 MG TABLET PO SCH (11:10)
[2017-08-09] MEDS: Magnesium Oxide 400 MG TABLET PO SCH (11:10)
[2017-08-09] MEDS: Furosemide 40 MG/4 ML VIAL IVP SCH (11:10)
[2017-08-09] MEDS: PROPAFENONE 225 MG PO SCH ×2 (11:10→21:17)
[2017-08-09] MEDS: Fluorometholone OPTH 5 ML BOTTLE LEFT EYE SCH ×4 (11:10→21:23)
[2017-08-09] MEDS: Cyanocobalamin (B-12) 1,000 MCG TABLET PO SCH (11:10)
[2017-08-09] MEDS: Cholecalciferol (D-3) 1,000 UNIT TABLET PO SCH (11:11)
[2017-08-09] MEDS: rOPINIRole 1 MG TABLET PO SCH (21:18)
[2017-08-09] MEDS: Azithromycin 500 MG in D5% in Water 250 ML IVPB SCH (21:20)
[2017-08-10] MEDS: Ipratropium/Albuterol Neb 3 ML IH SCH ×4 (04:14→22:06)
[2017-08-10 07:05] LABS: Hemoglobin 8.1 g/dL (11.5-15.4); Mean Platelet Volume 11.2 fL (9.4-12.4); Platelet Count 196 K/mcL (140-400)
[2017-08-10 07:06] LABS: Hematocrit 29.1 % (35.3-44.9); Mean Corpuscular HGB Conc 27.8 g/dL (31.6-35.5); Mean Corpuscular Hemoglobin 23.8 pg (28.0-33.3); Mean Corpuscular Volume 85.6 fL (83.0-100.0); Red Cell Distribution Width 15.9 % (11.5-14.5)
[2017-08-10 07:16] LABS: INR 1.9; Prothrombin Time 20.6 Seconds (9.4-12.1)
[2017-08-10 08:23] LABS: BUN/Creatinine Ratio 46 (6-26); Blood Urea Nitrogen 37 mg/dL (8-23); Calcium 9.2 mg/dL (8.6-10.3); Carbon Dioxide 40 mEq/L (23-29); Chloride 99 mEq/L (98-107); Glucose 106 mg/dL (70-105); Osmolality,Calculated 309 (280-300); Potassium 4.1 mEq/L (3.5-5.1); Sodium 145 mEq/L (136-145); eGFR For African Americans > 60 (> 60); eGFR For Non-African Americans > 60 (> 60)
--- NOTE | 2017-08-10 09:31 | Internal Med Progress Note ---
<Audie Meyer - Last Filed: 08/10/17 10:49> Date of Encounter: 08/10/17 Time of Encounter: 09:00 - Assessment and plan (1) Acute and chronic respiratory failure with hypoxia Current Visit: No Status: Acute Assessment and plan: - Worsening shortness of breath for a week with reported desaturation to 60s on exertion prior to admission. - CXR showed mild pulmonary edema suggestive of CHF but no cosolidation. - Likely secondary to COPD exacerbation in the setting of CHF and possible underlying FUENTES/OHS. - Improves as patient maintains good O2 saturation on 2L NC. Will have nurse walk patient to check for any desaturation on exertion. - Continue prednisone, Symbicort, azithromycin, scheduled bronchodilators and supplemental oxygen for COPD. - Continue diuresis for CHF. - Continue to monitor patient's respiratory status closely. (2) Acute exacerbation of chronic obstructive airways disease Current Visit: No Status: Acute Assessment and plan: - Continue prednisone, Symbicort, azithromycin, scheduled bronchodilators and supplemental oxygen. (3) Heart failure with preserved ejection fraction Current Visit: No Status: Chronic Assessment and plan: - Echo on 01/07/17 showed LVEF 60-65% with mild LV diastolic dysfunction. - Net 130 mL since admission. - Continue Lasix 40 mg IV daily. - Strict I/O, daily weight and fluid restriction. (4) Atrial fibrillation Current Visit: No Status: Chronic Assessment and plan: - Currently rate-controlled. Continue home regimen of Cardizem and Rhythmol. - Continue warfarin pharmacy to dose for anticoagulation. INR 1.9. - Patient reports having many palpitations and seems to be concerning about that. Will consult cardiology and appreciate evaluation and discussion with patient. Qualifiers: Atrial fibrillation type: paroxysmal Qualified Code(s): I48.0 - Paroxysmal atrial fibrillation (5) Fall Current Visit: Yes Status: Acute Assessment and plan: - Reported fall recently. Per patient, it's because of wet floor. - CT head found no acute intracranial abnormality. - PT/OT recommend home health after discharge. Qualifiers: Encounter type: subsequent encounter Qualified Code(s): W19.XXXD - Unspecified fall, subsequent encounter (6) Phalanx of the foot fracture Current Visit: Yes Status: Acute Assessment and plan: - Right foot XR on 07/31/17 found a nondisplaced fracture of the 5th proximal phalanx. - Patient is able to bear weight and ambulate. Qualifiers: Encounter type: subsequent encounter Toe: lesser toe Fracture type: closed Phalanx: proximal Fracture alignment: nondisplaced Laterality: right Fracture healing: with routine healing Qualified Code(s): S92.514D - Nondisplaced fracture of proximal phalanx of right lesser toe(s), subsequent encounter for fracture with routine healing (7) Morbid obesity Current Visit: No Status: Chronic Assessment and plan: - BMI 62 (8) DVT prophylaxis Current Visit: No Status: Acute Assessment and plan: - Continue warfarin. INR 1.9 today. - Subjective Interval history: Patient was seen and examined this morning. Patient reports breathing better compared to yesterday. But per patient's , patient had pulse oximetry reading drop to 70s while patient went to restroom last night. Patient reports having more cough but is not productive. Patient reports feeling a lot of palpitation and has concern about that. Patient denies fever, abdominal pain, nausea, vomiting, diarrhea. - Constitutional Vitals: Temp Pulse Resp BP Pulse Ox 98.2 F 86 14 139/73 97 08/10/17 07:23 08/10/17 07:23 08/10/17 07:23 08/10/17 07:23 08/10/17 07:23 General appearance: Present: A&O X 3, no acute distress, obese, answers questions appropriately - Head Head exam: Present: normal inspection - Eye Eye exam: Present: EOMI, conjuntiva pink, sclera anicteric - Neck Neck exam general surgery: Present: normal inspection, supple, trachea midline - Respiratory Respiratory exam: Present: decreased breath sounds, wheezes (few). Absent: accessory muscle use - Cardiovascular Cardiovascular exam: Present: RRR, +S1, +S2 - GI/Abdominal GI/Abdominal exam: Present: normal bowel sounds, soft, no peritoneal signs. Absent: tenderness - Extremities Exam Extremities exam: Present: pedal edema ([id number] BLE pitting edema), warm. Absent: cyanotic - Neurological Exam Neurological exam: Present: alert, oriented X3, no focal deficits. Absent: facial droop, speech deficit - Skin Skin exam: Present: dry, warm Internal Medicine: Result - Labs CBC & Chem 7: 08/10/17 06:29 08/10/17 06:29 Labs: Short CBC 01/05/18 Range/Units 06:29 WBC 7.1 (4.3-11.1) K/mcL Hgb 8.1 L (11.5-15.4) g/dL Hct 29.1 L (35.3-44.9) % Plt Count 196 (140-400) K/mcL BMP 08/10/17 06:29 Sodium 145 Potassium 4.1 Chloride 99 Carbon Dioxide 40 H* BUN 37 H Creatinine 0.80 Glucose 106 H Calcium 9.2 - ABG Interpretation ABG results: PT/INR, D-dimer PT 20.6 Seconds (9.4-12.1) H 08/10/17 06:29 Consult Discharge Plan - Plan Referrals: Lisbet Ray CNP [Primary Care Provider] - 08/16/17 2:15 pm <Landry Cool - Last Filed: 08/10/17 18:31> Date of Encounter: 08/10/17 - Assessment and plan (1) Acute and chronic respiratory failure with hypoxia Current Visit: No Status: Acute (2) Acute exacerbation of chronic obstructive airways disease Current Visit: Yes Status: Acute (3) Atrial fibrillation Current Visit: No Status: Chronic Qualifiers: Atrial fibrillation type: paroxysmal Qualified Code(s): I48.0 - Paroxysmal atrial fibrillation (4) Anemia Current Visit: No Status: Chronic Qualifiers: Anemia type: iron deficiency Iron deficiency anemia type: other iron deficiency Qualified Code(s): D50.8 - Other iron deficiency anemias (5) Diastolic CHF Current Visit: Yes Status: Chronic Qualifiers: Congestive heart failure chronicity: acute on chronic Qualified Code(s): I50.33 - Acute on chronic diastolic (congestive) heart failure (6) Morbid obesity Current Visit: Yes Status: Chronic (7) Hypertension Current Visit: No Status: Chronic Qualifiers: Hypertension type: essential hypertension Qualified Code(s): I10 - Essential (primary) hypertension (8) Hypothyroid Current Visit: No Status: Chronic Qualifiers: Hypothyroidism type: acquired Qualified Code(s): E03.9 - Hypothyroidism, unspecified - Constitutional Vitals: Temp Pulse Resp BP Pulse Ox 98.1 F 94 20 146/56 96 08/10/17 14:53 08/10/17 14:53 08/10/17 15:05 08/10/17 14:53 08/10/17 15:05 Internal Medicine: Result - Labs CBC & Chem 7: 08/10/17 06:29 08/10/17 06:29 Labs: Short CBC 08/10/17 Range/Units 06:29 WBC 7.1 (4.3-11.1) K/mcL Hgb 8.1 L (11.5-15.4) g/dL Hct 29.1 L (35.3-44.9) % Plt Count 196 (140-400) K/mcL BMP 08/10/17 06:29 Sodium 145 Potassium 4.1 Chloride 99 Carbon Dioxide 40 H* BUN 37 H Creatinine 0.80 Glucose 106 H Calcium 9.2 - ABG Interpretation ABG results: PT/INR, D-dimer PT 20.6 Seconds (9.4-12.1) H 08/10/17 06:29 - Attending Attestation I examined this patient and my medical decision-making was reviewed with the Resident Physician on 08/10/17. I agree with the documented findings, disposition and treatment plan as described except to the extent set forth below. Ms Guevara has been admitted for hypoxia and COPD exacerbation. She remains moderate to high risk due to potential for worsening clinical status. Ms Guevara is still having palpitations. Seen by cardiology. She was also seen by pulm as she now need 6L NC with exertion. No fever or chills. No GI issues. Exam Alert. Comfortable in chair. Mucus membranes dry Heart reg Lungs diminished Abd soft I/P 1. Hypoxia 2. COPD Further diagnoses and plan as above.
[2017-08-10] MEDS: ADVAIR IH SCH ×2 (10:08→22:06)
[2017-08-10] MEDS: Insulin LISPRO 300 UNITS/3 ML VIAL SQ SCH ×4 (11:48→21:58)
[2017-08-10] MEDS: Diltiazem CD (24hr) 120 MG CAPSULE PO SCH (11:57)
[2017-08-10] MEDS: Magnesium Oxide 400 MG TABLET PO SCH (11:58)
[2017-08-10] MEDS: Cholecalciferol (D-3) 1,000 UNIT TABLET PO SCH (11:58)
[2017-08-10] MEDS: Ascorbic Acid 500 MG TABLET PO SCH (11:59)
[2017-08-10] MEDS: Fluorometholone OPTH 5 ML BOTTLE LEFT EYE SCH ×4 (12:01→21:58)
[2017-08-10] MEDS: predniSONE 20 MG TABLET PO SCH (12:01)
[2017-08-10] MEDS: Furosemide 40 MG/4 ML VIAL IVP SCH (12:01)
[2017-08-10] MEDS: PROPAFENONE 225 MG PO SCH ×2 (12:04→21:56)
--- NOTE | 2017-08-10 13:21 | Cardiology Consult Note ---
Date of Encounter: 08/10/17 Time of Encounter: 12:00 Assessment and Plan (1) Atrial fibrillation Current Visit: Yes Status: Chronic Cardiology consulted for palpitations. Known history of PAF. EKG shows NSR on admit. Telemetry shows NSR. Avg HR 85. Occasional small runs of atrial tachycardia noted. One 12 sec run of afib seen. No VT or PVC. Tachycardia likely secondary to COPD exacerbation. Continue rhythmol. Increase cardizem to 180 mg daily. Increase as needed/tolerated. TTE this admit shows normal LVEF. Mild diastolic dysfunction and no significant valvular disease. On coumadin therapy for AC. Thank you for this consult. Call with questions. Qualifiers: Atrial fibrillation type: paroxysmal Qualified Code(s): I48.0 - Paroxysmal atrial fibrillation (2) Acute on chronic respiratory failure with hypoxemia Current Visit: No Status: Resolved Acute respiratory therapy in the setting of COPD exacerbation. Significant CHF not suspected. TTE shows normal LVEF. Only mild diastolic dysfunction. CXR showed no effusions or edema. BNP 25. Noted she has history of diastolic CHF. Hospitalist following. (3) COPD with exacerbation Current Visit: Yes Status: Acute COPD exacerbation. Followed by primary team. (4) Acute on chronic heart failure with normal ejection fraction Current Visit: No Status: Acute H/o DCHF. Most recent echo this admit shows EF 65%. Mild DD. No significant valvular disease. SOB multifactoral in the setting of COPD exacerbation. BNP 25. CXR with no edema. Noted to gain 2-4 KG since last admit. IV diuresis given per hospitalist. Monitor kidney function. Low sodium diet. Discussion w patient/family: The assessment and plan as outlined above was discussed with the patient and/or family members who expressed understanding and agreement. All questions were answered. Thank you for involving us in the care of your patient. Please call with any questions. History of Present Illness Consult date: 08/10/17 Requesting physician: Audie Meyer Consult reason: palpitations Chief complaint: SOB, palpitations History of present illness: Ms. Guevara is a 66 year old female with a past medical history of paroxysmal atrial fibrillation on coumadin, COPD, and morbid obesity who presents with the c/o SOB for a week and a half. She was diagnosed with COPD exacerbation and possible CHF. She also c/o frequent palpitations during her stay. Cardiology was consulted. Initial EKG shows NSR. She was started on rhythmol therapy last year. She states she was doing well until the last week. She notices frequent palpitations throughout the day. Denies chest pain. Past Med Surg Social Fam HX - Past Medical History Medical history: asthma, atrial fibrillation, COPD, GERD, hypertension, migraine Psychiatric history: no psych history - Past Surgical History Surgical History: cholecystectomy, hysterectomy - Social History Smoking Status: Former smoker Smokeless Tobacco Status: No Alcohol use: none Drug use: none - Family History Sister Living Status: Hx Family Cardiac Disorders: Yes Hx Family Respiratory Disorders: Yes (copd) Mother Adopted: No Family Member Ethnicity: Non- Twin of Family Member: Yes, Fraternal Living Status: Hx Family Cardiac Disorders: Yes (HTN) Hx Family Respiratory Disorders: No Hx Family Cancer: Yes (Melanoma) Hx Family GI Disorders: Yes (Constipation) Hx Family Endocrine Disorder: No Hx Family Neuromuscular Disorders: No Hx Family Neurologic Disorders: No Hx Family HEENT Disorders: No Hx Family Autoimmune Disorders: No Father Adopted: No Family Member Ethnicity: Non- Twin of Family Member: Yes, Fraternal Living Status: Hx Family Cardiac Disorders: Yes (Thrombosis) Hx Family Respiratory Disorders: Yes (self,sister) Hx Family Cancer: No Hx Family GI Disorders: Yes (self) Hx Family Endocrine Disorder: No Hx Family Neuromuscular Disorders: No Hx Family Neurologic Disorders: No Hx Family HEENT Disorders: No Hx Family Autoimmune Disorders: No Medications and Allergies Alendronate Sodium [Fosamax] 70 mg PO WE 10/28/15 [History] Ascorbate Calcium [Vitamin C] 500 mg PO DAILY 10/28/15 [History] Cholecalciferol (Vitamin D3) [Vitamin D3] 5,000 unit PO DAILY 10/28/15 [History] Cyanocobalamin (Vitamin B-12) [Vitamin B-12] 100 mcg PO DAILY 10/28/15 [History] Tiotropium [Spiriva] 18 mcg IH HS 10/28/15 [History] Warfarin [Coumadin] 5 mg PO DAILY 10/28/15 [History] Dexlansoprazole [Dexilant] 60 mg PO DAILY 07/03/16 [History] Ferrous Sulfate [Iron] 325 mg PO DAILY 07/03/16 [History] Albuterol Sulfate [Proventil Hfa] 2 puff IH Q4H PRN 09/14/16 [History] Oxygen 3 l IH AD 10/24/16 [History] Fluticasone/Salmeterol [Advair 250-50 Diskus] 1 puff IH BID #1 blst.w.dev [Rx] Montelukast [Singulair] 10 mg PO DAILY 11/29/16 [History] Ropinirole HCl [Requip] 2 mg PO HS 11/29/16 [History] Magnesium Oxide [Mag-Ox] 400 mg PO DAILY #30 tablet 12/04/16 [Rx] Furosemide [Lasix] 20 mg PO BID #60 01/11/17 [Rx] Calcium Carbonate [Calcium] 600 mg PO BID 05/08/17 [History] Fluorometholone [Fml Forte] 1 drop LEFT EYE QID 05/08/17 [History] Lisinopril [Zestril] 2.5 mg PO BID 05/08/17 [History] Diltiazem CD (24hr) [Cardizem CD] 120 mg PO DAILY cap.er.24h 05/21/17 [Rx] Acetaminophen/Diphenhydramine [Percogesic 325-12.5 mg Tablet] 1 - 2 tab PO HS PRN 07/19/17 [History] Spironolactone [Aldactone] 50 mg PO DAILY 07/19/17 [History] Propafenone HCl [Propafenone HCl ER] 225 mg PO Q12H 07/20/17 [History] Albuterol Neb [Proventil Neb] 2.5 mg IH Q4H PRN #30 inhsol 07/23/17 [Rx] DiphenhydraMINE [Benadryl] 25 mg PO HS PRN capsule 07/23/17 [Rx] GuaiFENesin ER [Mucinex] 600 mg PO BID PRN #1 bottle 07/23/17 [Rx] 3 Allergy/AdvReac Type Severity Reaction Status Date / Time aspirin [ASA] Allergy Difficulty Verified 08/07/17 20:01 Breathing Penicillins Allergy Hives Verified 08/07/17 20:01 Sulfa (Sulfonamide Allergy Rash Verified 08/07/17 20:01 Antibiotics) All Systems Review: A 10-system review of systems was performed and is negative for pertinent findings except as documented above in the HPI. Physical Examination Vital Signs, Last 4 Hours Temp Pulse Resp BP Pulse Ox 08/10/17 11:48 97.8 F 95 15 144/54 96 08/10/17 10:08 20 93 General: Conversant, No Apparent Distress HEENT: Atraumatic, Normocephaly, Mucus Membranes Moist Neck: No JVD, Normal carotid pulses Cardiac: Reg Rate and Rhythm, Normal S1 and S2, No Murmur Lungs: Other (Respirations slightly labored with conversation. Expiratory wheezes scattered throughout anterior lung feilds) Neuro: Alert and responsive, No focal deficits noted Abdomen: Soft, Non-Tender Skin: No rashes noted on visualized skin Musculoskeletal: No Chest Wall Tenderness Extremities: No Clubbing, No Cyanosis, No Edema, Normal Pulses Results 08/10/17 06:29 08/10/17 06:29 Lab Results 08/10/17 08/10/17 08/10/17 06:29 06:29 06:29 WBC 7.1 Hgb 8.1 L Hct 29.1 L Plt Count 196 INR 1.9 Sodium 145 Potassium 4.1 Chloride 99 Carbon Dioxide 40 H* BUN 37 H Creatinine 0.80 Glucose 106 H Calcium 9.2 - Imaging and Cardiology Echo: report reviewed - EKG Interpretation EKG results cardiology: personally reviewed Consult Discharge Plan - Plan Referrals: Lisbet Ray CNP [Primary Care Provider] - 08/16/17 2:15 pm
[2017-08-10] MEDS ORDERED: Diltiazem SR (12hr) 60 MG CAPSULE PO ONE (14:40)
[2017-08-10] MEDS: Cyanocobalamin (B-12) 1,000 MCG TABLET PO SCH (15:45)
--- NOTE | 2017-08-10 16:07 | Pulmonology Consult Note ---
<John Dockery - Last Filed: 08/10/17 16:04> Date of Encounter: 08/10/17 Time of Encounter: 16:05 Assessment and Plan (1) Acute on chronic respiratory failure with hypoxemia Current Visit: Yes Status: Acute - Currently resolved and patient is near baseline oxygen requirement at rest - Uses 3L O2 at home due to severe COPD with FEV1 of 0.96 in August of 2016 - Pulm consult for desturation during 6 minute walk test as well as patient wishes. - Pt reports that she has become increasingly dyspnic on exertion for many weeks now, not an acute problem. - CXR shows mild pulmonary edema. No obvious consolidations. - On optimal therapy including Spiriva, albuterol inhaler, proventil - Has been treated for COPD exacerbation while admitted with Prednisone 40 mg Qday, duonebs, Azithromycin, Symbicort as well as lasix 40 IV qday for diuresis. - Dyspnea likely secondary to COPD exacerbation which is resolving with possible progression of disease. OHS/OHA likely underlying. Doubtful CHF exacerbation given normal BNP, lack of signs/symptoms. Plan - ABG pending - BiPAP qualification test tonight - Continue home medications on discharge. - Increased supplemental oxygen only on exertion up to 6L per walk test. - Should follow up with pulmonology upon discharge. (2) Acute exacerbation of chronic obstructive airways disease Current Visit: Yes Status: Acute As above for respiratory failure. Management per primary team. - Pt clinically improved. (3) Diastolic CHF Current Visit: Yes Status: Chronic - Unlikely CHF component given normal BNP and no orthopnea or PND. - Cardiology was consulted by primary team. No planned interventions. - Further management per primary team Qualifiers: Congestive heart failure chronicity: acute on chronic Qualified Code(s): I50.33 - Acute on chronic diastolic (congestive) heart failure (4) Morbid obesity Current Visit: Yes Status: Chronic - Patient's weight is likely worsening her symptoms. - Likely component of obesity hypoventilation syndrome vs obstructive sleep apnea. - Encouraged weight loss and should follow up outpatient for sleep study. (5) DVT prophylaxis Current Visit: Yes Status: Acute On warfarin for paroxysmal AFib History of Present Illness Consult date: 08/10/17 Requesting physician: Audie Meyer Reason for consult: dyspnea, COPD Chief complaint: dyspnea on exertion History of present illness: 66-year-old female with a past medical history of oxygen dependent COPD, asthma on 3 L nasal cannula is in the emergency room with a chief complaint of dyspnea on exertion since July. She states that she frequently presents to this hospital for recurrent COPD exacerbations. She is compliant with oxygen at home on her 3 L however she states that she has been increasingly dyspneic and is unable to walk approximately 10 feet without becoming short of breath. She does take home albuterol inhaler, Spiriva, Advair inhalers. Uses her albuterol inhaler approximately once per day. She is a former smoker during 30 years ago. Previous to that she does have a 50 year pack history. No pets at home. Denies any recent illnesses including cough, fevers, chills, sick contacts, recent travel. No symptoms of orthopnea, paroxysmal nocturnal dyspnea does admit to bilateral lower shortness swelling which is chronic for her. At time of interview she is speaking in full sentences and not complaining of any shortness of breath. Pulmonology was consulted due to desaturation during 6 minute walk test this afternoon as well as patient wishes. She does follow with icd [address] Obey Mccrary. She has had formal testing for pulmonary function test indicating an FEV1 of 0.96. She did have a sleep study performed however he was inconclusive due to "she was not asleep long enough". Chest x-ray upon admission reviewed, showing mild pulmonary edema and flattened hemidiaphragms bilaterally. Past Med Surg Social Fam HX - Past Medical History Medical history: asthma, atrial fibrillation, COPD, GERD, hypertension, migraine Psychiatric history: no psych history - Past Surgical History Surgical History: cholecystectomy, hysterectomy - Social History Smoking Status: Former smoker Smokeless Tobacco Status: No Alcohol use: none Drug use: none - Family History Sister Living Status: Hx Family Cardiac Disorders: Yes Hx Family Respiratory Disorders: Yes (copd) Mother Adopted: No Family Member Ethnicity: Non- Twin of Family Member: Yes, Fraternal Living Status: Hx Family Cardiac Disorders: Yes (HTN) Hx Family Respiratory Disorders: No Hx Family Cancer: Yes (Melanoma) Hx Family GI Disorders: Yes (Constipation) Hx Family Endocrine Disorder: No Hx Family Neuromuscular Disorders: No Hx Family Neurologic Disorders: No Hx Family HEENT Disorders: No Hx Family Autoimmune Disorders: No Father Adopted: No Family Member Ethnicity: Non- Twin of Family Member: Yes, Fraternal Living Status: Hx Family Cardiac Disorders: Yes (Thrombosis) Hx Family Respiratory Disorders: Yes (self,sister) Hx Family Cancer: No Hx Family GI Disorders: Yes (self) Hx Family Endocrine Disorder: No Hx Family Neuromuscular Disorders: No Hx Family Neurologic Disorders: No Hx Family HEENT Disorders: No Hx Family Autoimmune Disorders: No Medications and Allergies Alendronate Sodium [Fosamax] 70 mg PO WE 10/28/15 [History] Ascorbate Calcium [Vitamin C] 500 mg PO DAILY 10/28/15 [History] Cholecalciferol (Vitamin D3) [Vitamin D3] 5,000 unit PO DAILY 10/28/15 [History] Cyanocobalamin (Vitamin B-12) [Vitamin B-12] 100 mcg PO DAILY 10/28/15 [History] Tiotropium [Spiriva] 18 mcg IH HS 10/28/15 [History] Warfarin [Coumadin] 5 mg PO DAILY 10/28/15 [History] Dexlansoprazole [Dexilant] 60 mg PO DAILY 07/03/16 [History] Ferrous Sulfate [Iron] 325 mg PO DAILY 07/03/16 [History] Albuterol Sulfate [Proventil Hfa] 2 puff IH Q4H PRN 09/14/16 [History] Oxygen 3 l IH AD 10/24/16 [History] Fluticasone/Salmeterol [Advair 250-50 Diskus] 1 puff IH BID #1 blst.w.dev [Rx] Montelukast [Singulair] 10 mg PO DAILY 11/29/16 [History] Ropinirole HCl [Requip] 2 mg PO HS 11/29/16 [History] Magnesium Oxide [Mag-Ox] 400 mg PO DAILY #30 tablet 12/04/16 [Rx] Furosemide [Lasix] 20 mg PO BID #60 01/11/17 [Rx] Calcium Carbonate [Calcium] 600 mg PO BID 05/08/17 [History] Fluorometholone [Fml Forte] 1 drop LEFT EYE QID 05/08/17 [History] Lisinopril [Zestril] 2.5 mg PO BID 05/08/17 [History] Diltiazem CD (24hr) [Cardizem CD] 120 mg PO DAILY cap.er.24h 05/21/17 [Rx] Acetaminophen/Diphenhydramine [Percogesic 325-12.5 mg Tablet] 1 - 2 tab PO HS PRN 07/19/17 [History] Spironolactone [Aldactone] 50 mg PO DAILY 07/19/17 [History] Propafenone HCl [Propafenone HCl ER] 225 mg PO Q12H 07/20/17 [History] Albuterol Neb [Proventil Neb] 2.5 mg IH Q4H PRN #30 inhsol 07/23/17 [Rx] DiphenhydraMINE [Benadryl] 25 mg PO HS PRN capsule 07/23/17 [Rx] GuaiFENesin ER [Mucinex] 600 mg PO BID PRN #1 bottle 07/23/17 [Rx] 3 Allergy/AdvReac Type Severity Reaction Status Date / Time aspirin [ASA] Allergy Difficulty Verified 08/07/17 20:01 Breathing Penicillins Allergy Hives Verified 08/07/17 20:01 Sulfa (Sulfonamide Allergy Rash Verified 08/07/17 20:01 Antibiotics) All Systems: A 10-system review of systems was performed and is negative for pertinent findings except as documented above in the HPI. - Constitutional Constitutional: no chills, no fever(s), no lethargy, no witnessed apnea - Cardiovascular Cardiovascular: dyspnea on exertion, edema, pedal edema, no chest pain, no diaphoresis, no dyspnea, no orthopnea, no paroxysmal nocturnal dyspnea - Respiratory Respiratory: dyspnea on exertion, no cough, no dyspnea, no wheezing, no snoring - Gastrointestinal Gastrointestinal: no abdominal pain, no nausea, no vomiting - Integumentary Integumentary: no erythema, no rash Physical Examination Vital Signs: Vital Signs, Last 4 Hours Temp Pulse Resp BP Pulse Ox 08/10/17 15:05 20 96 08/10/17 14:53 98.1 F 94 15 146/56 97 08/10/17 14:20 92 General appearance: no acute distress, alert Eyes: nonicteric Effort: normal Inspection: normal Auscultation: bilateral: clear, diminished breath sounds (Bibasilar) Cardiovascular: regular rate and rhythm Gastrointestinal: normoactive bowel sounds, soft, non-tender Extremities: edema (Bilateral 2+ pitting edema) normal mental status mood appropriate, affect normal Results - Laboratory Findings CBC and BMP: 08/10/17 06:29 08/10/17 06:29 PT/INR, D-dimer PT 20.6 Seconds (9.4-12.1) H 08/10/17 06:29 Abnormal lab findings: Abnormal lab results RBC 3.40 M/mcL (3.82-4.97) L 08/10/17 06: Hgb 8.1 g/dL (11.5-15.4) L 08/10/17 06: Hct 29.1 % (35.3-44.9) L 08/10/17 06: MCH 23.8 pg (28.0-33.3) L 08/10/17 06: MCHC 27.8 g/dL (31.6-35.5) L 08/10/17 06: RDW 15.9 % (11.5-14.5) H 08/10/17 06:29 Nucleated RBCs/100 WBC 0.3 /100 WBC (0) H 08/09/17 04:50 Large Platelets Present (Not Present) A 08/08/17 04:44 Polychromasia 1+ (Not Present) A 08/08/17 04:44 Hypochromasia Present (Not Present) A 08/09/17 04:50 Poikilocytosis 1+ (Not Present) A 08/09/17 04:50 Anisocytosis 1+ (Not Present) A 08/09/17 04:50 PT 20.6 Seconds (9.4-12.1) H 08/10/17 06: Carbon Dioxide 40 mEq/L (23-29) H* 08/10/17 06: BUN 37 mg/dL (8-23) H 08/10/17 06:29 BUN/Creatinine Ratio 46 (6-26) H 08/10/17 06:29 Glucose 106 mg/dL (70-105) H 08/10/17 06: POC Glucose 135 (58-89) H 08/10/17 11:52 Calculated Osmolality 309 (280-300) H 08/10/17 06:29 - Clinical Findings Intake & Output: Intake & Output 08/10/17 08/10/17 08/10/17 07:59 15:59 23:59 Intake Total 840 / 840 Output Total 200 / 200 1000 / 1000 Balance -200 / -200 -160 / -160 Consult Discharge Plan - Plan Referrals: Lisbet Ray, [employer] BENDER [Primary Care Provider] - 08/16/17 2:15 pm <Víctor Barnett - Last Filed: 08/10/17 17:31> Date of Encounter: 08/10/17 All Systems: A 10-system review of systems was performed and is negative for pertinent findings except as documented above in the HPI. Physical Examination Vital Signs: Vital Signs, Last 4 Hours Temp Pulse Resp BP Pulse Ox 08/10/17 15:05 20 96 08/10/17 14:53 98.1 F 94 15 146/56 97 08/10/17 14:20 92 Results - Laboratory Findings CBC and BMP: 08/10/17 06:29 08/10/17 06:29 PT/INR, D-dimer PT 20.6 Seconds (9.4-12.1) H 08/10/17 06:29 Abnormal lab findings: Abnormal lab results RBC 3.40 M/mcL (3.82-4.97) L 08/10/17 06:29 Hgb 8.1 g/dL (11.5-15.4) L 08/10/17 06:29 Hct 29.1 % (35.3-44.9) L 08/10/17 06:29 MCH 23.8 pg (28.0-33.3) L 08/10/17 06:29 MCHC 27.8 g/dL (31.6-35.5) L 08/10/17 06:29 RDW 15.9 % (11.5-14.5) H 08/10/17 06:29 Nucleated RBCs/100 WBC 0.3 /100 WBC (0) H 08/09/17 04:50 Large Platelets Present (Not Present) A 08/08/17 04:44 Polychromasia 1+ (Not Present) A 08/08/17 04:44 Hypochromasia Present (Not Present) A 08/09/17 04:50 Poikilocytosis 1+ (Not Present) A 08/09/17 04:50 Anisocytosis 1+ (Not Present) A 08/09/17 04:50 PT 20.6 Seconds (9.4-12.1) H 08/10/17 06:29 VBG pCO2 62 mmHg (41-51) H 08/10/17 16:21 VBG pO2 78 mmHg (25-50) H 08/10/17 16:21 VBG HCO3 40 mEq/L (21-27) H 08/10/17 16:21 Carbon Dioxide 40 mEq/L (23-29) H* 08/10/17 06:29 BUN 37 mg/dL (8-23) H 08/10/17 06:29 BUN/Creatinine Ratio 46 (6-26) H 08/10/17 06:29 Glucose 106 mg/dL (70-105) H 08/10/17 06:29 POC Glucose 135 (58-89) H 08/10/17 11:52 Calculated Osmolality 309 (280-300) H 08/10/17 06:29 - Clinical Findings Intake & Output: Intake & Output 08/10/17 08/10/17 08/10/17 07:59 15:59 23:59 Intake Total 840 / 840 240 / 240 Output Total 200 / 200 1000 / 1000 Balance -200 / -200 -160 / -160 240 / 240 - Attending Attestation I examined this patient and my medical decision-making was reviewed with the Resident Physician. I agree with the documented findings, disposition and treatment plan as described except to the extent set forth below. Patient seen and examined. Labs, radiology, chart personally reviewed. 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 I have explained to the patient had cardiopulmonary disease history single multiple hospitalization and there is a possibility her condition or her underlying disease is progressing. Discussed with primary team to qualify patient for noninvasive ventilation since she was told she has borderline sleep apnea. Check ABG. Patient needs to follow-up as outpatient when she is discharged. Cardiovascular: stable GI: Nutrition per dietary and GI prophylaxis per routine Heme: DVT prophylaxis per routine ID: Continue antibiotics and plan to de-escalation Renal; urine out put and renal funtion reviewed Endorcine: blood glucose is monitored Lines: all lines checked and no evidence of infections Skin: skin care to prevent pressure ulcers per nursing routine care
[2017-08-10 16:30] LABS: VBG HCO3 40 mEq/L (21-27); VBG PCO2 62 mmHg (41-51); VBG PH 7.42 pH Units (7.32-7.42); VBG PO2 78 mmHg (25-50)
[2017-08-10] MEDS ORDERED: *HR* Warfarin 7.5 MG TABLET PO ONE (18:00)
[2017-08-10] MEDS: rOPINIRole 1 MG TABLET PO SCH (21:54)
[2017-08-10] MEDS: Azithromycin 500 MG in D5% in Water 250 ML IVPB SCH (21:57)
[2017-08-11] MEDS: Ipratropium/Albuterol Neb 3 ML IH SCH ×4 (04:20→21:49)
[2017-08-11 04:29] LABS: Hematocrit 27.9 % (35.3-44.9); Mean Corpuscular Hemoglobin 23.9 pg (28.0-33.3); Red Cell Distribution Width 15.9 % (11.5-14.5)
[2017-08-11 04:30] LABS: Hemoglobin 7.7 g/dL (11.5-15.4); Mean Corpuscular HGB Conc 27.6 g/dL (31.6-35.5); Mean Corpuscular Volume 86.6 fL (83.0-100.0); Mean Platelet Volume 11.3 fL (9.4-12.4); Platelet Count 207 K/mcL (140-400); Red Blood Count 3.22 M/mcL (3.82-4.97)
[2017-08-11 04:39] LABS: INR 1.8; Prothrombin Time 19.8 Seconds (9.4-12.1)
[2017-08-11 05:15] LABS: BUN/Creatinine Ratio 49 (6-26); Blood Urea Nitrogen 42 mg/dL (8-23); Carbon Dioxide 40 mEq/L (23-29); Chloride 98 mEq/L (98-107); Glucose 135 mg/dL (70-105); Osmolality,Calculated 307 (280-300); Potassium 4.3 mEq/L (3.5-5.1); Sodium 142 mEq/L (136-145); eGFR For African Americans > 60 (> 60); eGFR For Non-African Americans > 60 (> 60)
[2017-08-11] MEDS: Insulin LISPRO 300 UNITS/3 ML VIAL SQ SCH ×4 (07:28→22:38)
[2017-08-11] MEDS: TIOTROPIUM IH SCH (07:28)
--- NOTE | 2017-08-11 09:09 | Internal Med Progress Note ---
<Omair Salas - Last Filed: 08/11/17 12:31> Date of Encounter: 08/11/17 Time of Encounter: 09:01 - Assessment and plan (1) Acute on chronic respiratory failure with hypoxemia Current Visit: Yes Status: Acute Assessment and plan: Patient is clinically improving Continue supplemental oxygen, breathing treatments, oral steroids, Zithromax, expectorants Pulmology consult, recommended on BiPAP qualification which did not qualify for She will likely need increased oxygen demands upon discharge Anticipated discharge to home tomorrow (2) Acute exacerbation of chronic obstructive airways disease Current Visit: Yes Status: Acute Assessment and plan: Continue management as above (3) Anemia Current Visit: No Status: Chronic Assessment and plan: Patient's hemoglobin did drop somewhat from last 3 days from 8.5 to 8.1 to 7.7 today, her baseline is near 8-9 We will obtain iron panel and transfuse 1 unit of blood to help with her respiratory status Obtain Hemoccult Qualifiers: Anemia type: iron deficiency Iron deficiency anemia type: other iron deficiency Qualified Code(s): D50.8 - Other iron deficiency anemias (4) Atrial fibrillation Current Visit: Yes Status: Chronic Assessment and plan: Currently in normal sinus rhythm with rates in the 80s Cardiology insult, recommended on increasing Cardizem to 180 daily and continuing home Rythmol dose Continue with warfarin for anticoagulation long-term Qualifiers: Atrial fibrillation type: paroxysmal Qualified Code(s): I48.0 - Paroxysmal atrial fibrillation (5) Morbid obesity Current Visit: Yes Status: Chronic Assessment and plan: BMI of 62 Lifestyle modifications encouraged (6) DVT prophylaxis Current Visit: Yes Status: Acute Assessment and plan: Continue with home warfarin - Subjective Interval history: Pt seen and examined. She states her breathing has improved today however she still does not feel "100%" and is not ready to go home. She has no issues with nausea, vomiting, fevers, or chills. - Constitutional Vitals: Temp Pulse Resp BP Pulse Ox 98.1 F 86 18 132/50 96 08/11/17 07:13 08/11/17 07:13 08/11/17 07:13 08/11/17 07:13 08/11/17 07:13 General appearance: Present: cooperative, A&O X 3, no acute distress, obese, answers questions appropriately - Head Head exam: Present: atraumatic, normocephalic - Eye Eye exam: Present: PERRL, conjuntiva pink, sclera anicteric - Neck Neck exam general surgery: Present: supple, trachea midline. Absent: lymphadenopathy - Respiratory Respiratory exam: Present: decreased breath sounds. Absent: accessory muscle use, rales, rhonchi, wheezes - Cardiovascular Cardiovascular exam: Present: RRR, +S1, +S2. Absent: diastolic murmur, gallop, rubs, systolic murmur - GI/Abdominal GI/Abdominal exam: Present: normal bowel sounds, soft, no peritoneal signs. Absent: distended, tenderness - Extremities Exam Extremities exam: Present: pedal edema, warm, radial pulses palpable and symmetrical. Absent: calf tenderness, cyanotic - Neurological Exam Neurological exam: Present: alert, no focal deficits. Absent: facial droop, speech deficit - Skin Skin exam: Present: dry, intact Internal Medicine: Result - Labs CBC & Chem 7: 08/11/17 04:10 08/11/17 04:10 Labs: Short CBC 08/11/17 Range/Units 04:10 WBC 7.0 (4.3-11.1) K/mcL Hgb 7.7 L (11.5-15.4) g/dL Hct 27.9 L (35.3-44.9) % Plt Count 207 (140-400) K/mcL BMP 08/11/17 04:10 Sodium 142 Potassium 4.3 Chloride 98 Carbon Dioxide 40 H* BUN 42 H Creatinine 0.85 Glucose 135 H Calcium 9.0 - ABG Interpretation ABG results: PT/INR, D-dimer PT 19.8 Seconds (9.4-12.1) H 08/11/17 04:10 - VTE Documentation of Mechanical Device: Intermittent pneumatic compression device Consult Discharge Plan - Plan Referrals: Lisbet Ray CNP [Primary Care Provider] - 08/16/17 2:15 pm <Landry Cool - Last Filed: 08/11/17 18:56> Date of Encounter: 08/11/17 - Assessment and plan (1) Acute and chronic respiratory failure with hypoxia Current Visit: No Status: Acute (2) Acute exacerbation of chronic obstructive airways disease Current Visit: Yes Status: Acute (3) Atrial fibrillation Current Visit: No Status: Chronic Qualifiers: Atrial fibrillation type: paroxysmal Qualified Code(s): I48.0 - Paroxysmal atrial fibrillation (4) Anemia Current Visit: No Status: Chronic Qualifiers: Anemia type: iron deficiency Iron deficiency anemia type: other iron deficiency Qualified Code(s): D50.8 - Other iron deficiency anemias (5) Diastolic CHF Current Visit: Yes Status: Chronic Qualifiers: Congestive heart failure chronicity: acute on chronic Qualified Code(s): I50.33 - Acute on chronic diastolic (congestive) heart failure (6) Morbid obesity Current Visit: Yes Status: Chronic (7) Hypertension Current Visit: No Status: Chronic Qualifiers: Hypertension type: essential hypertension Qualified Code(s): I10 - Essential (primary) hypertension (8) Hypothyroid Current Visit: No Status: Chronic Qualifiers: Hypothyroidism type: acquired Qualified Code(s): E03.9 - Hypothyroidism, unspecified - Constitutional Vitals: Temp Pulse Resp BP Pulse Ox 98.1 F 86 16 151/69 94 08/11/17 16:02 08/11/17 16:02 08/11/17 16:02 08/11/17 16:02 08/11/17 16:02 Internal Medicine: Result - Labs CBC & Chem 7: 08/11/17 04:10 08/11/17 04:10 Labs: Short CBC 08/11/17 Range/Units 04:10 WBC 7.0 (4.3-11.1) K/mcL Hgb 7.7 L (11.5-15.4) g/dL Hct 27.9 L (35.3-44.9) % Plt Count 207 (140-400) K/mcL BMP 08/11/17 04:10 Sodium 142 Potassium 4.3 Chloride 98 Carbon Dioxide 40 H* BUN 42 H Creatinine 0.85 Glucose 135 H Calcium 9.0 - ABG Interpretation ABG results: PT/INR, D-dimer PT 19.8 Seconds (9.4-12.1) H 08/11/17 04:10 - Attending Attestation I examined this patient and my medical decision-making was reviewed with the Resident Physician on 08/11/17. I agree with the documented findings, disposition and treatment plan as described except to the extent set forth below. Ms Guevara is currently admitted for hypoxia and resp failure. She remains moderate to high risk due to potential for worsening clinical status. Ms Guevara still is dyspneic. She does not want to go home yet. No fever or chills. Exam alert. Comfortable Mucus membranes dry Heart reg No wheeze at this time I/P 1. Resp failure 2. PAF Further diagnoses and plan as above.
[2017-08-11] MEDS: Fluorometholone OPTH 5 ML BOTTLE LEFT EYE SCH ×4 (10:08→22:38)
[2017-08-11] MEDS: Isosorbide MONOnitrate (24 HR) 30 MG TAB.ER.24H PO SCH (10:15)
[2017-08-11] MEDS: Cholecalciferol (D-3) 1,000 UNIT TABLET PO SCH (10:15)
[2017-08-11] MEDS: Diltiazem CD (24hr) 180 MG CAPSULE PO SCH (10:15)
[2017-08-11] MEDS: Ascorbic Acid 500 MG TABLET PO SCH (10:15)
[2017-08-11] MEDS: Magnesium Oxide 400 MG TABLET PO SCH (10:15)
[2017-08-11] MEDS: ADVAIR IH SCH ×2 (10:16→21:49)
[2017-08-11] MEDS: Furosemide 40 MG/4 ML VIAL IVP SCH (10:16)
[2017-08-11] MEDS: Cyanocobalamin (B-12) 1,000 MCG TABLET PO SCH (10:16)
[2017-08-11] MEDS: PROPAFENONE 225 MG PO SCH ×2 (10:16→22:37)
[2017-08-11] MEDS: predniSONE 20 MG TABLET PO SCH (10:16)
[2017-08-11] MEDS ORDERED: 0.9 % Sodium Chloride 250 ML ONE (15:32)
[2017-08-11] MEDS ORDERED: *HR* Warfarin 5 MG TABLET PO SCH (18:00)
[2017-08-11] MEDS: rOPINIRole 1 MG TABLET PO SCH (22:36)
[2017-08-11] MEDS: Acetaminophen 325 MG TABLET PO PRN (22:37)
[2017-08-11] MEDS: Azithromycin 500 MG in D5% in Water 250 ML IVPB SCH (22:38)
[2017-08-12] MEDS: Ipratropium/Albuterol Neb 3 ML IH SCH ×4 (03:24→21:57)
[2017-08-12 05:23] LABS: Basophils % 0.1 %; Hemoglobin 9.2 g/dL (11.5-15.4)
[2017-08-12 05:24] LABS: Eosinophils % 0.1 %; Hematocrit 32.1 % (35.3-44.9); Immature Granulocytes % 0.5 % (0-4); Lymphocytes # 1.2 K/mcL (0.6-4.6); Mean Corpuscular HGB Conc 28.7 g/dL (31.6-35.5); Mean Corpuscular Hemoglobin 24.6 pg (28.0-33.3); Mean Corpuscular Volume 85.8 fL (83.0-100.0); Mean Platelet Volume 11.2 fL (9.4-12.4); Monocytes # 0.8 K/mcL (0.0-1.3); Monocytes % 9.8 %; Platelet Count 226 K/mcL (140-400); Red Blood Count 3.74 M/mcL (3.82-4.97); Red Cell Distribution Width 15.6 % (11.5-14.5); Segmented Neutrophils % 75.5 %
[2017-08-12 05:25] LABS: Neutrophils # 6.3 K/mcL (1.6-8.9)
[2017-08-12 05:30] LABS: Prothrombin Time 21.3 Seconds (9.4-12.1)
[2017-08-12 05:38] LABS: % Iron Saturation 6 % (15-50); Ferritin 90 ng/ml (10-120); Iron 28 mcg/dL (50-170); Transferrin 325 mg/dL (203-362)
[2017-08-12 05:58] LABS: BUN/Creatinine Ratio 40 (6-26); Blood Urea Nitrogen 38 mg/dL (8-23); Carbon Dioxide 40 mEq/L (23-29); Chloride 97 mEq/L (98-107); Glucose 134 mg/dL (70-105); Osmolality,Calculated 303 (280-300); Potassium 4.2 mEq/L (3.5-5.1); Sodium 141 mEq/L (136-145); eGFR For African Americans > 60 (> 60); eGFR For Non-African Americans 58 (> 60)
[2017-08-12 06:12] LABS: Hypochromasia Present (Not Present)
[2017-08-12 06:13] LABS: Platelet Estimate Normal (Normal)
[2017-08-12] MEDS: Fluorometholone OPTH 5 ML BOTTLE LEFT EYE SCH ×4 (09:02→22:30)
[2017-08-12] MEDS: Insulin LISPRO 300 UNITS/3 ML VIAL SQ SCH ×4 (09:02→22:30)
[2017-08-12] MEDS: ADVAIR IH SCH ×2 (09:06→21:58)
[2017-08-12] MEDS: PROPAFENONE 225 MG PO SCH ×2 (09:07→22:31)
[2017-08-12] MEDS: predniSONE 20 MG TABLET PO SCH (09:14)
[2017-08-12] MEDS: Cyanocobalamin (B-12) 1,000 MCG TABLET PO SCH (09:14)
[2017-08-12] MEDS: Cholecalciferol (D-3) 1,000 UNIT TABLET PO SCH (09:14)
[2017-08-12] MEDS: Magnesium Oxide 400 MG TABLET PO SCH (09:16)
[2017-08-12] MEDS: Isosorbide MONOnitrate (24 HR) 30 MG TAB.ER.24H PO SCH (09:16)
[2017-08-12] MEDS: Ascorbic Acid 500 MG TABLET PO SCH (09:16)
[2017-08-12] MEDS: Furosemide 40 MG/4 ML VIAL IVP SCH (09:17)
[2017-08-12] MEDS: Diltiazem CD (24hr) 180 MG CAPSULE PO SCH (09:19)
--- NOTE | 2017-08-12 18:11 | Internal Med Progress Note ---
Date of Encounter: 08/12/17 Time of Encounter: 15:30 - Assessment and plan (1) Acute and chronic respiratory failure with hypoxia Current Visit: No Status: Acute Assessment and plan: - Worsening clinical status overall and has higher needs for oxygen with exertion. Has anemia and received transfusion yesterday Continue current management of pulmonary issues. (2) Acute exacerbation of chronic obstructive airways disease Current Visit: Yes Status: Acute Assessment and plan: Continue management as above (3) Atrial fibrillation Current Visit: No Status: Chronic Assessment and plan: Continue home meds at this time. Qualifiers: Atrial fibrillation type: paroxysmal Qualified Code(s): I48.0 - Paroxysmal atrial fibrillation (4) Anemia Current Visit: No Status: Chronic Assessment and plan: Hemoccult is positive. She responded well to transfusion. Will make NPO at midnight. Hold coumadin. Consult GI in AM. Qualifiers: Anemia type: iron deficiency Iron deficiency anemia type: chronic blood loss Qualified Code(s): D50.0 - Iron deficiency anemia secondary to blood loss (chronic) (5) Diastolic CHF Current Visit: Yes Status: Chronic Assessment and plan: Clinically has been improving. Qualifiers: Congestive heart failure chronicity: acute on chronic Qualified Code(s): I50.33 - Acute on chronic diastolic (congestive) heart failure (6) Morbid obesity Current Visit: Yes Status: Chronic Assessment and plan: BMI of 62 Lifestyle modifications encouraged (7) Hypertension Current Visit: No Status: Chronic Assessment and plan: Continue home meds. Qualifiers: Hypertension type: essential hypertension Qualified Code(s): I10 - Essential (primary) hypertension (8) Hypothyroid Current Visit: No Status: Chronic Assessment and plan: Continue home meds. Qualifiers: Hypothyroidism type: acquired Qualified Code(s): E03.9 - Hypothyroidism, unspecified (9) GI (gastrointestinal bleed) Current Visit: Yes Status: Suspected Qualifiers: GI bleed type/associated pathology: unspecified gastrointestinal hemorrhage type Qualified Code(s): K92.2 - Gastrointestinal hemorrhage, unspecified - Subjective Interval history: Ms Guevara is currently admitted for acute on chronic hypoxic resp failure due to COPD and anemia. She remains moderate to high risk due to potential for worsening clinical status. Ms Guevara is doing better after blood yesterday. Slept OK. No fever or chills. Stool is guiac positive. No obvious blood in stool. No constipation or diarrhea. - Constitutional Vitals: Temp Pulse Resp BP Pulse Ox 98.1 F 83 18 159/71 99 08/12/17 16:15 08/12/17 16:15 08/12/17 16:15 08/12/17 16:15 08/12/17 16:15 General appearance: Present: cooperative, A&O X 3, obese, answers questions appropriately - Head Head exam: Present: atraumatic, normocephalic - Eye Eye exam: Present: EOMI, conjuntiva pink - ENT ENT exam: Present: mucous membranes dry - Respiratory Respiratory exam: Present: decreased breath sounds, wheezes. Absent: rales, rhonchi - Cardiovascular Cardiovascular exam: Present: RRR. Absent: tachycardia - GI/Abdominal GI/Abdominal exam: Present: soft. Absent: tenderness - Extremities Exam Extremities exam: Present: tenderness, warm - Neurological Exam Neurological exam: Present: alert, oriented X3 - Skin Skin exam: Present: warm. Absent: rash Internal Medicine: Result - Labs CBC & Chem 7: 08/12/17 05:13 08/12/17 05:13 Labs: Short CBC 08/12/17 Range/Units 05:13 WBC 8.4 (4.3-11.1) K/mcL Hgb 9.2 L D (11.5-15.4) g/dL Hct 32.1 L (35.3-44.9) % Plt Count 226 (140-400) K/mcL Neutrophils # 6.3 (1.6-8.9) K/mcL BMP 08/12/17 05:13 Sodium 141 Potassium 4.2 Chloride 97 L Carbon Dioxide 40 H* BUN 38 H Creatinine 0.95 Glucose 134 H Calcium 9.0 - ABG Interpretation ABG results: PT/INR, D-dimer PT 21.3 Seconds (9.4-12.1) H 08/12/17 05:13 - VTE Documentation of Mechanical Device: Intermittent pneumatic compression device Consult Discharge Plan - Plan Referrals: Lisbet Ray CNP [Primary Care Provider] - 08/16/17 2:15 pm
[2017-08-12] MEDS: rOPINIRole 1 MG TABLET PO SCH (22:30)
[2017-08-12] MEDS: Acetaminophen 325 MG TABLET PO PRN (22:30)
[2017-08-12] MEDS: Azithromycin 500 MG in D5% in Water 250 ML IVPB SCH (22:31)
[2017-08-13] MEDS: TIOTROPIUM IH SCH (01:31)
[2017-08-13] MEDS: Ipratropium/Albuterol Neb 3 ML IH SCH ×4 (04:06→21:57)
[2017-08-13 05:51] LABS: Hematocrit 30.2 % (35.3-44.9); Hemoglobin 8.6 g/dL (11.5-15.4); Mean Corpuscular HGB Conc 28.5 g/dL (31.6-35.5); Mean Corpuscular Hemoglobin 24.4 pg (28.0-33.3); Mean Corpuscular Volume 85.8 fL (83.0-100.0); Red Blood Count 3.52 M/mcL (3.82-4.97); Red Cell Distribution Width 15.8 % (11.5-14.5)
[2017-08-13 05:52] LABS: Mean Platelet Volume 10.9 fL (9.4-12.4); Platelet Count 224 K/mcL (140-400)
[2017-08-13 05:56] LABS: INR 2.2; Prothrombin Time 23.6 Seconds (9.4-12.1)
[2017-08-13 06:24] LABS: Alanine Aminotransferase 57 Units/L (7-52); Albumin 3.4 g/dL (3.5-5.7); Albumin/Globulin Ratio 1.5 (1.1-2.2); Alkaline Phosphatase 55 Units/L (34-104); Aspartate Amino Transferase 19 Units/L (13-39); BUN/Creatinine Ratio 39 (6-26); Bilirubin,Total 0.3 mg/dL (0.3-1.0); Blood Urea Nitrogen 38 mg/dL (8-23); Calcium 8.8 mg/dL (8.6-10.3); Carbon Dioxide 42 mEq/L (23-29); Chloride 97 mEq/L (98-107); Globulin 2.2 g/dL (2.4-3.5); Glucose 122 mg/dL (70-105); Magnesium 2.3 mg/dL (1.6-2.6); Osmolality,Calculated 298 (280-300); Potassium 4.3 mEq/L (3.5-5.1); Sodium 139 mEq/L (136-145); Total Protein 5.6 g/dL (6.4-8.9); eGFR For African Americans > 60 (> 60); eGFR For Non-African Americans 57 (> 60)
--- NOTE | 2017-08-13 09:25 | Internal Med Progress Note ---
<Audie Meyer - Last Filed: 08/13/17 15:26> Date of Encounter: 08/13/17 Time of Encounter: 08:30 - Assessment and plan (1) Anemia Current Visit: No Status: Chronic Assessment and plan: - Acute blood loss anemia with hgb dropped to as low as 7.7 on 08/11/17. - Likely secondary to GI bleed as hemoccult is positive. - Warfarin had be held (last dose on 08/11/17). - Status post one unit of pRBC transfusion on 08/11/17 and Hgb increased to 9.2 next day. - Hgb dropped again to 8.6 today. - Continue to monitor closely and consider more blood transfusion if Hgb < 7.0 Qualifiers: Anemia type: iron deficiency Iron deficiency anemia type: chronic blood loss Qualified Code(s): D50.0 - Iron deficiency anemia secondary to blood loss (chronic) (2) GI (gastrointestinal bleed) Current Visit: Yes Status: Acute Assessment and plan: - Dropping Hgb and positive hemoccult on 08/11/17. - Likely upper GI bleed given elevated BUN and reported GERD symptoms (acid reflex and heartburn). - Will switch PO omeprazole to IV Protonix BID. - Patient has been NPO since midnight. - GI consulted and plans to have EGD later today. Qualifiers: GI bleed type/associated pathology: unspecified gastrointestinal hemorrhage type Qualified Code(s): K92.2 - Gastrointestinal hemorrhage, unspecified (3) Acute and chronic respiratory failure with hypoxia Current Visit: No Status: Acute Assessment and plan: - Worsening shortness of breath for a week with reported desaturation to 60s on exertion prior to admission. - CXR showed mild pulmonary edema suggestive of CHF but no cosolidation. - Likely secondary to COPD exacerbation in the setting of CHF, anemia and possible underlying FUENTES/OHS. - Was noted to desaturate to 70s on exertion. Per pulmonology, it's likely progression of patient's COPD and recommended increase of supplemental oxygen to 6L on exertion. Patient will need outpatient pulmonology follow-up after discharge. - Improves as patient maintains good O2 saturation on 3L NC. - Continue prednisone, Symbicort, azithromycin, scheduled bronchodilators and supplemental oxygen for COPD. - Continue diuresis for CHF. - Continue to monitor patient's respiratory status closely. (4) Acute exacerbation of chronic obstructive airways disease Current Visit: Yes Status: Acute Assessment and plan: - Continue prednisone, Symbicort, azithromycin, scheduled bronchodilators and supplemental oxygen. (5) Heart failure with preserved ejection fraction Current Visit: No Status: Chronic Assessment and plan: - Echo on 01/07/17 showed LVEF 60-65% with mild LV diastolic dysfunction. - Net -2565 mL since admission. - Continue Lasix 40 mg IV daily. - Strict I/O, daily weight and fluid restriction. (6) Atrial fibrillation Current Visit: Yes Status: Chronic Assessment and plan: - Currently in normal sinus rhythm with rates in the 70s - Cardiology consult ecommended increase of Cardizem to 180 daily and continuing home Rythmol dose. - Warfarin has been held for the concern of GI bleed. INR 2.2 today. Qualifiers: Atrial fibrillation type: paroxysmal Qualified Code(s): I48.0 - Paroxysmal atrial fibrillation (7) Fall Current Visit: Yes Status: Acute Assessment and plan: - Reported fall recently. Per patient, it's because of wet floor. - CT head found no acute intracranial abnormality. - PT/OT recommend home health after discharge. Qualifiers: Encounter type: subsequent encounter Qualified Code(s): W19.XXXD - Unspecified fall, subsequent encounter (8) Phalanx of the foot fracture Current Visit: Yes Status: Acute Assessment and plan: - Right foot XR on 07/31/17 found a nondisplaced fracture of the 5th proximal phalanx. - Patient is able to bear weight and ambulate. Qualifiers: Encounter type: subsequent encounter Toe: lesser toe Fracture type: closed Phalanx: proximal Fracture alignment: nondisplaced Laterality: right Fracture healing: with routine healing Qualified Code(s): S92.514D - Nondisplaced fracture of proximal phalanx of right lesser toe(s), subsequent encounter for fracture with routine healing (9) Morbid obesity Current Visit: Yes Status: Chronic Assessment and plan: - BMI of 62 - Lifestyle modifications encouraged (10) DVT prophylaxis Current Visit: Yes Status: Acute Assessment and plan: - Was on warfarin with INR 2.2 today. - Subjective Interval history: Patient was seen and examined this morning. Patient reports breathing better compared to last week and cough significantly improves. Patient denies fever, abdominal pain, hematochezia, melena. Patient admits having occasional acid reflex and heartburn for long time. Per patient, she never has EGD in the past and her last colonoscopy was 3 and 1/2 years ago with finding of two polyps. - Constitutional Vitals: Temp Pulse Resp BP Pulse Ox 98.2 F 76 16 176/82 98 08/13/17 07:07 08/13/17 07:07 08/13/17 07:07 08/13/17 07:07 08/13/17 07:07 General appearance: Present: cooperative, A&O X 3, obese, answers questions appropriately - Head Head exam: Present: normal inspection - Eye Eye exam: Present: EOMI, conjuntiva pink, sclera anicteric - Neck Neck exam general surgery: Present: normal inspection, supple, trachea midline - Respiratory Respiratory exam: Present: decreased breath sounds. Absent: accessory muscle use, rales, rhonchi, wheezes - Cardiovascular Cardiovascular exam: Present: RRR, +S1, +S2 - GI/Abdominal GI/Abdominal exam: Present: normal bowel sounds, soft, no peritoneal signs. Absent: tenderness - Extremities Exam Extremities exam: Present: pedal edema (Moderate BLE edema, improves compared to last week. ), warm. Absent: cyanotic - Neurological Exam Neurological exam: Present: alert, oriented X3. Absent: facial droop, speech deficit - Skin Skin exam: Present: dry, warm Internal Medicine: Result - Labs CBC & Chem 7: 08/13/17 05:37 08/13/17 05:37 Labs: Short CBC 08/13/17 Range/Units 05:37 WBC 7.6 (4.3-11.1) K/mcL Hgb 8.6 L (11.5-15.4) g/dL Hct 30.2 L (35.3-44.9) % Plt Count 224 (140-400) K/mcL BMP 08/13/17 05:37 Sodium 139 Potassium 4.3 Chloride 97 L Carbon Dioxide 42 H* BUN 38 H Creatinine 0.97 Glucose 122 H Calcium 8.8 Liver Function 08/13/17 Range/Units 05:37 Total Bilirubin 0.3 (0.3-1.0) mg/dL AST 19 (13-39) Units/L ALT 57 H (7-52) Units/L Alkaline Phosphatase 55 (34-104) Units/L Albumin 3.4 L (3.5-5.7) g/dL - ABG Interpretation ABG results: PT/INR, D-dimer PT 23.6 Seconds (9.4-12.1) H 08/13/17 05:37 - VTE Documentation of Mechanical Device: Intermittent pneumatic compression device Consult Discharge Plan - Plan Referrals: Lisbet Ray [employer] [Primary Care Provider] - 08/16/17 2:15 pm <Landry Cool - Last Filed: 08/13/17 18:22> Date of Encounter: 08/13/17 - Assessment and plan (1) Acute and chronic respiratory failure with hypoxia Current Visit: No Status: Acute (2) Acute exacerbation of chronic obstructive airways disease Current Visit: Yes Status: Acute (3) Atrial fibrillation Current Visit: No Status: Chronic Qualifiers: Atrial fibrillation type: paroxysmal Qualified Code(s): I48.0 - Paroxysmal atrial fibrillation (4) Anemia Current Visit: No Status: Chronic Qualifiers: Anemia type: iron deficiency Iron deficiency anemia type: chronic blood loss Qualified Code(s): D50.0 - Iron deficiency anemia secondary to blood loss (chronic) (5) Diastolic CHF Current Visit: Yes Status: Chronic Qualifiers: Congestive heart failure chronicity: acute on chronic Qualified Code(s): I50.33 - Acute on chronic diastolic (congestive) heart failure (6) Morbid obesity Current Visit: Yes Status: Chronic (7) Hypertension Current Visit: No Status: Chronic Qualifiers: Hypertension type: essential hypertension Qualified Code(s): I10 - Essential (primary) hypertension (8) Hypothyroid Current Visit: No Status: Chronic Qualifiers: Hypothyroidism type: acquired Qualified Code(s): E03.9 - Hypothyroidism, unspecified (9) GI (gastrointestinal bleed) Current Visit: Yes Status: Acute Qualifiers: GI bleed type/associated pathology: unspecified gastrointestinal hemorrhage type Qualified Code(s): K92.2 - Gastrointestinal hemorrhage, unspecified - Constitutional Vitals: Temp Pulse Resp BP Pulse Ox 97.9 F 87 14 141/61 97 08/13/17 16:50 08/13/17 16:50 08/13/17 16:56 08/13/17 16:50 08/13/17 16:56 Internal Medicine: Result - Labs CBC & Chem 7: 08/13/17 05:37 08/13/17 05:37 Labs: Short CBC 08/13/17 Range/Units 05:37 WBC 7.6 (4.3-11.1) K/mcL Hgb 8.6 L (11.5-15.4) g/dL Hct 30.2 L (35.3-44.9) % Plt Count 224 (140-400) K/mcL BMP 08/13/17 05:37 Sodium 139 Potassium 4.3 Chloride 97 L Carbon Dioxide 42 H* BUN 38 H Creatinine 0.97 Glucose 122 H Calcium 8.8 Liver Function 08/13/17 Range/Units 05:37 Total Bilirubin 0.3 (0.3-1.0) mg/dL AST 19 (13-39) Units/L ALT 57 H (7-52) Units/L Alkaline Phosphatase 55 (34-104) Units/L Albumin 3.4 L (3.5-5.7) g/dL - ABG Interpretation ABG results: PT/INR, D-dimer PT 23.6 Seconds (9.4-12.1) H 08/13/17 05:37 - Attending Attestation I examined this patient and my medical decision-making was reviewed with the Resident Physician on 08/13/17. I agree with the documented findings, disposition and treatment plan as described except to the extent set forth below. Ms Guevara is currently admitted for acute on chronic resp failure and anemia. She remains moderate to high risk due to potential for worsening clinical status. Ms Guevara had EGD today. No obvious source of bleeding. Awaiting INR to decrease to get colonoscopy. Coughing a lot more today. no fever or chills. Exam Alert. Comfortable Mucus membranes dry Heart reg Lungs diminished Abd soft I/P 1. Resp failure 2. Anemia Further diagnoses and plan as above.
[2017-08-13] MEDS: Insulin LISPRO 300 UNITS/3 ML VIAL SQ SCH ×4 (09:53→22:40)
[2017-08-13] MEDS: Cholecalciferol (D-3) 1,000 UNIT TABLET PO SCH (10:11)
[2017-08-13] MEDS: Magnesium Oxide 400 MG TABLET PO SCH (10:11)
[2017-08-13] MEDS: Diltiazem CD (24hr) 180 MG CAPSULE PO SCH (10:11)
[2017-08-13] MEDS: Ascorbic Acid 500 MG TABLET PO SCH (10:11)
[2017-08-13] MEDS: Isosorbide MONOnitrate (24 HR) 30 MG TAB.ER.24H PO SCH (10:11)
[2017-08-13] MEDS: Cyanocobalamin (B-12) 1,000 MCG TABLET PO SCH (10:11)
[2017-08-13] MEDS: predniSONE 20 MG TABLET PO SCH (10:14)
[2017-08-13] MEDS: PROPAFENONE 225 MG PO SCH ×3 (10:15→22:38)
[2017-08-13] MEDS: ADVAIR IH SCH ×2 (11:20→21:57)
[2017-08-13] MEDS: Pantoprazole 40 MG VIAL IVP SCH ×2 (12:03→17:55)
[2017-08-13] MEDS: Fluorometholone OPTH 5 ML BOTTLE LEFT EYE SCH ×4 (12:05→22:40)
--- NOTE | 2017-08-13 14:05 | Anesthesia Evaluation PreOp ---
Date of Encounter: 08/13/17 Time of Encounter: 14:02 - Past History Planned Operation: EGD Cardiac History: CHF (chronic diastolic normal EF), HTN, Hyperlipidemia, Arrhythmia (PAF) Pulmonary History: COPD [employer] History: Denies Any Significant HX Other Medical History: Other (morbid obesity BMI63) Anesthesia History: No Prior Anesthetic Complications, Past Anesthesia (shelton, DONNIE) : No Alcohol Use: none Drug use: none Medications and Allergies Alendronate Sodium [Fosamax] 70 mg PO WE 10/28/15 [History] Ascorbate Calcium [Vitamin C] 500 mg PO DAILY 10/28/15 [History] Cholecalciferol (Vitamin D3) [Vitamin D3] 5,000 unit PO DAILY 10/28/15 [History] Cyanocobalamin (Vitamin B-12) [Vitamin B-12] 100 mcg PO DAILY 10/28/15 [History] Tiotropium [Spiriva] 18 mcg IH HS 10/28/15 [History] Warfarin [Coumadin] 5 mg PO DAILY 10/28/15 [History] Dexlansoprazole [Dexilant] 60 mg PO DAILY 07/03/16 [History] Ferrous Sulfate [Iron] 325 mg PO DAILY 07/03/16 [History] Albuterol Sulfate [Proventil Hfa] 2 puff IH Q4H PRN 09/14/16 [History] Oxygen 3 l IH AD 10/24/16 [History] Fluticasone/Salmeterol [Advair 250-50 Diskus] 1 puff IH BID #1 blst.w.dev [Rx] Montelukast [Singulair] 10 mg PO DAILY 11/29/16 [History] Ropinirole HCl [Requip] 2 mg PO HS 11/29/16 [History] Magnesium Oxide [Mag-Ox] 400 mg PO DAILY #30 tablet 12/04/16 [Rx] Furosemide [Lasix] 20 mg PO BID #60 01/11/17 [Rx] Calcium Carbonate [Calcium] 600 mg PO BID 05/08/17 [History] Fluorometholone [Fml Forte] 1 drop LEFT EYE QID 05/08/17 [History] Lisinopril [Zestril] 2.5 mg PO BID 05/08/17 [History] Diltiazem CD (24hr) [Cardizem CD] 120 mg PO DAILY cap.er.24h 05/21/17 [Rx] Acetaminophen/Diphenhydramine [Percogesic 325-12.5 mg Tablet] 1 - 2 tab PO HS PRN 07/19/17 [History] Spironolactone [Aldactone] 50 mg PO DAILY 07/19/17 [History] Propafenone HCl [Propafenone HCl ER] 225 mg PO Q12H 07/20/17 [History] Albuterol Neb [Proventil Neb] 2.5 mg IH Q4H PRN #30 inhsol 07/23/17 [Rx] DiphenhydraMINE [Benadryl] 25 mg PO HS PRN capsule 07/23/17 [Rx] GuaiFENesin ER [Mucinex] 600 mg PO BID PRN #1 bottle 07/23/17 [Rx] 3 Allergy/AdvReac Type Severity Reaction Status Date / Time aspirin [ASA] Allergy Difficulty Verified 08/07/17 20:01 Breathing Penicillins Allergy Hives Verified 08/07/17 20:01 Sulfa (Sulfonamide Allergy Rash Verified 08/07/17 20:01 Antibiotics) - Meds/Allergy Pre-op Review Medications Reviewed: Yes Allergies Reviewed: Yes Beta Blockers on Current Med List: No Anesthesia Results - Labs 08/13/17 05:37 08/13/17 05:37 Anesthesia Exam Selected Entries 08/13/17 11:36 08/13/17 13:04 Temperature 98.0 F Pulse Rate 83 Respiratory Rate 14 O2 Sat by Pulse Oximetry 97 Oxygen Flow Rate (LPM) 3 Oxygen Delivery Method Nasal Cannula Weight: 160kg NPO (# of Hours): 8 - HEENT Pupil (Motor): EOMI Mallampati: III Teeth: Edentulous Oral Opening: Less than or equal to 3 - [employer] LOC: Oriented [employer] Motor: Normal RUE, Normal LUE, Normal RLE, Normal LLE, Normal Face [employer] Sensory: Normal: RUE, LUE, RLE, LLE, Face - Cardiac Rhythm: Regular Murmur: None - Pulmonary Breath Sounds: bilateral Clear Respiratory Effort: Symmetrical Anesthesia Assess/Plan ASA Score: 3 Modified [place] Scale for Level of Consciousness: Cooperative, oriented, and tranquil Anesthetic Plan: MAC Monitoring Plan: Standard Monitors Recovery Plan: Other (agrees to [place])
[2017-08-13] MEDS ORDERED: *HR* Propofol 200 MG/20 ML VIAL IVP ONE (14:09)
[2017-08-13] MEDS ORDERED: Lidocaine -MPF 2% 2 ML VIAL ONE (14:09)
[2017-08-13] MEDS ORDERED: *HR* Phytonadione 5 MG TABLET PO ONE (15:26)
[2017-08-13] MEDS: Furosemide 40 MG/4 ML VIAL IVP SCH (17:52)
[2017-08-13] MEDS: Acetaminophen 325 MG TABLET PO PRN (22:38)
[2017-08-13] MEDS: rOPINIRole 1 MG TABLET PO SCH (22:40)
--- NOTE | 2017-08-13 23:03 | Gastroenterology Consult Note ---
Date of Encounter: 08/13/17 Time of Encounter: 13:30 - Assessment and plan (1) Anemia Current Visit: Yes Status: Chronic Assessment and plan: Pt with anemia for few years, now with drop in Hb and positive stool occult blood. No overt bleeding. Pt on coumadin with INR 2.2 Rec: EGD diagnostic and if negative then will need colon. Follow H/H Qualifiers: Anemia type: unspecified type Qualified Code(s): D64.9 - Anemia, unspecified - Time Spent With Patient Total time spent is greater than 50% in coordination of care (as documented) at patient's floor/unit and/or counseling patient: GI History of Present Illness - Data of Consult Consult date: 08/13/17 Requesting Physician: Landry Cool DO - Consult Narrative Reason for consult: Anemia, positive occult stool History of present illness: Ms. Guevara is a 66 year old female admitted with CHF/COPD exacerbation. On admission Hb in 8s range, drop to 7,7, given one unit of blood . Had positive stool guiac . No overt bleeding. No black stool. No EGD before but colon 3 years ago with 2 polyps removed per pt . Pt on coumadin for at fib . Past Med Surg Social Fam HX - Past Medical History Medical history: asthma, atrial fibrillation, COPD, GERD, hypertension, migraine Psychiatric history: no psych history - Past Surgical History Surgical History: cholecystectomy, hysterectomy - Social History Smoking Status: Former smoker Smokeless Tobacco Status: No Alcohol use: none Drug use: none - Family History Sister Living Status: Hx Family Cardiac Disorders: Yes Hx Family Respiratory Disorders: Yes (copd) Mother Adopted: No Family Member Ethnicity: Non- Twin of Family Member: Yes, Fraternal Living Status: Hx Family Cardiac Disorders: Yes (HTN) Hx Family Respiratory Disorders: No Hx Family Cancer: Yes (Melanoma) Hx Family GI Disorders: Yes (Constipation) Hx Family Endocrine Disorder: No Hx Family Neuromuscular Disorders: No Hx Family Neurologic Disorders: No Hx Family HEENT Disorders: No Hx Family Autoimmune Disorders: No Father Adopted: No Family Member Ethnicity: Non- Twin of Family Member: Yes, Fraternal Living Status: Hx Family Cardiac Disorders: Yes (Thrombosis) Hx Family Respiratory Disorders: Yes (self,sister) Hx Family Cancer: No Hx Family GI Disorders: Yes (self) Hx Family Endocrine Disorder: No Hx Family Neuromuscular Disorders: No Hx Family Neurologic Disorders: No Hx Family HEENT Disorders: No Hx Family Autoimmune Disorders: No Review of Systems: GI: as per [place] EYES: denies yellow discoloration ENT: denies pain with swallowing or difficulty swallowing CARDIO: denies chest pain, RESP: No Shortness of breath : denies change in color of urine HEME: Denies any bruising DERM: denies rash or itching - Constitutional Vitals: Temp Pulse Resp BP Pulse Ox 98.6 F 89 16 136/66 96 08/13/17 19:56 08/13/17 19:56 08/13/17 21:57 08/13/17 19:56 08/13/17 21:57 CONSTITUTIONAL:~alert, no acute distress.~HEAD:~normocephalic.~EYES:~no jaundice.~NECK:~no obvious swelling.~HEART:~rate controlled.~LUNGS:~bilateral air entry.~ABDOMEN:~non distended.~RECTAL EXAM:~Deferred.~EXTREMITIES:~no clubbing, cyanosis.~SKIN:~no stigmata of chronic liver disease.~NEUROLOGIC:~no obvious focal defect.~~~~ Results - Labs CBC & Chem 7: 08/13/17 05:37 08/13/17 05:37 Labs: Last Result Calcium 8.8 mg/dL (8.6-10.3) 08/13/17 05:37 Iron 28 mcg/dL (50-170) L 08/12/17 05:13 % Saturation 6 % (15-50) L 08/12/17 05:13 Transferrin 325 mg/dL (203-362) 08/12/17 05:13 Ferritin 90 ng/ml (10-120) 08/12/17 05:13 Troponin I < 0.03 ng/mL (< 0.04) 08/08/17 11:40 Stool Occult Blood Positive (Negative) A 08/12/17 05:10 Entire Visit Hgb 8.6 g/dL (11.5-15.4) L 08/13/17 05:37 Hct 30.2 % (35.3-44.9) L 08/13/17 05:37 PT 23.6 Seconds (9.4-12.1) H 08/13/17 05:37 Ferritin 90 ng/ml (10-120) 08/12/17 05:13 Total Bilirubin 0.3 mg/dL (0.3-1.0) 08/13/17 05:37 AST 19 Units/L (13-39) 08/13/17 05:37 ALT 57 Units/L (7-52) H 08/13/17 05:37 - ABG ABG results: PT/INR, D-dimer PT 23.6 Seconds (9.4-12.1) H 08/13/17 05:37 Consult Discharge Plan - Plan Referrals: Lisbet Ray CNP [Primary Care Provider] - 08/16/17 2:15 pm
[2017-08-14] MEDS: TIOTROPIUM IH SCH (02:12)
[2017-08-14] MEDS: Ipratropium/Albuterol Neb 3 ML IH SCH ×4 (03:52→21:48)
[2017-08-14 04:56] LABS: Red Cell Distribution Width 15.9 % (11.5-14.5)
[2017-08-14 04:58] LABS: Hematocrit 30.9 % (35.3-44.9); Hemoglobin 8.7 g/dL (11.5-15.4); Mean Corpuscular HGB Conc 28.2 g/dL (31.6-35.5); Mean Corpuscular Hemoglobin 24.2 pg (28.0-33.3); Mean Corpuscular Volume 86.1 fL (83.0-100.0); Mean Platelet Volume 10.7 fL (9.4-12.4); Platelet Count 223 K/mcL (140-400); Red Blood Count 3.59 M/mcL (3.82-4.97)
[2017-08-14 05:00] LABS: INR 1.7
[2017-08-14 05:16] LABS: BUN/Creatinine Ratio 35 (6-26); Blood Urea Nitrogen 34 mg/dL (8-23); Calcium 8.8 mg/dL (8.6-10.3); Carbon Dioxide 39 mEq/L (23-29); Chloride 99 mEq/L (98-107); Glucose 135 mg/dL (70-105); Osmolality,Calculated 300 (280-300); Potassium 4.3 mEq/L (3.5-5.1); Sodium 140 mEq/L (136-145); eGFR For African Americans > 60 (> 60); eGFR For Non-African Americans 57 (> 60)
[2017-08-14] MEDS: Pantoprazole 40 MG VIAL IVP SCH ×2 (06:30→17:03)
[2017-08-14] MEDS: predniSONE 20 MG TABLET PO SCH (09:50)
[2017-08-14] MEDS: Diltiazem CD (24hr) 180 MG CAPSULE PO SCH (09:50)
[2017-08-14] MEDS: Ascorbic Acid 500 MG TABLET PO SCH (09:50)
[2017-08-14] MEDS: Cholecalciferol (D-3) 1,000 UNIT TABLET PO SCH (09:50)
[2017-08-14] MEDS: Isosorbide MONOnitrate (24 HR) 30 MG TAB.ER.24H PO SCH ×2 (09:50→09:51)
[2017-08-14] MEDS: Cyanocobalamin (B-12) 1,000 MCG TABLET PO SCH (09:51)
[2017-08-14] MEDS: Magnesium Oxide 400 MG TABLET PO SCH (09:51)
[2017-08-14] MEDS: Furosemide 40 MG/4 ML VIAL IVP SCH (09:51)
[2017-08-14] MEDS: Insulin LISPRO 300 UNITS/3 ML VIAL SQ SCH ×4 (09:52→20:45)
[2017-08-14] MEDS: ADVAIR IH SCH ×2 (10:45→21:48)
--- NOTE | 2017-08-14 15:59 | Internal Med Progress Note ---
<Spencer Alexander - Last Filed: 08/14/17 15:56> Date of Encounter: 08/14/17 Time of Encounter: 10:00 - Assessment and plan (1) Acute and chronic respiratory failure with hypoxia Current Visit: Yes Status: Acute Assessment and plan: Secondary to CHF and COPD exacerbations (2) Anemia Current Visit: Yes Status: Chronic Assessment and plan: Stable Hgb 8.7, 8.6 yesterday EGD showed polyp and gastritis without benjamin bleeding Plan for colonoscopy tomorrow if INR is < 1.5 Qualifiers: Anemia type: unspecified type Qualified Code(s): D64.9 - Anemia, unspecified (3) GI (gastrointestinal bleed) Current Visit: Yes Status: Acute Assessment and plan: Occult blood positive Continue IV protonix See plan of care above Qualifiers: GI bleed type/associated pathology: unspecified gastrointestinal hemorrhage type Qualified Code(s): K92.2 - Gastrointestinal hemorrhage, unspecified (4) Acute exacerbation of chronic obstructive airways disease Current Visit: Yes Status: Acute Assessment and plan: Continue prednisone, symbicort, azithromycin, breathing treatments, and supplemental O2 (5) Heart failure with preserved ejection fraction Current Visit: No Status: Chronic Assessment and plan: Continue Lasix Balance of -4300 mL (6) Atrial fibrillation Current Visit: Yes Status: Acute Assessment and plan: Holding coumadin secondary to GI bleed Continue cardizem and rythmol Qualifiers: Atrial fibrillation type: paroxysmal Qualified Code(s): I48.0 - Paroxysmal atrial fibrillation (7) Fall Current Visit: Yes Status: Acute Assessment and plan: Home Health on discharge per PT/OT Qualifiers: Encounter type: subsequent encounter Qualified Code(s): W19.XXXD - Unspecified fall, subsequent encounter (8) Phalanx of the foot fracture Current Visit: Yes Status: Acute Assessment and plan: Stable Qualifiers: Encounter type: subsequent encounter Toe: lesser toe Fracture type: closed Phalanx: proximal Fracture alignment: nondisplaced Laterality: right Fracture healing: with routine healing Qualified Code(s): S92.514D - Nondisplaced fracture of proximal phalanx of right lesser toe(s), subsequent encounter for fracture with routine healing - Subjective Interval history: Breathing improved, otherwise no significant changes. - Constitutional Vitals: Temp Pulse Resp BP Pulse Ox 98.0 F 85 14 146/95 92 01/09/18 15:32 08/14/17 15:32 08/14/17 15:32 08/14/17 15:32 08/14/17 15:32 General appearance: Present: cooperative, A&O X 3, pleasant, obese, answers questions appropriately - Head Head exam: Present: atraumatic, normal inspection, normocephalic - ENT ENT exam: Present: mucous membranes moist - Neck Neck exam general surgery: Present: trachea midline - Respiratory Respiratory exam: Present: rales (bibasilar) - Cardiovascular Cardiovascular exam: Present: RRR, +S1, +S2 - GI/Abdominal GI/Abdominal exam: Present: soft, no peritoneal signs. Absent: tenderness - Extremities Exam Extremities exam: Present: pedal edema - Neurological Exam Neurological exam: Present: alert, oriented X3 - Psychiatric Psychiatric exam: Present: normal affect, normal mood - Skin Skin exam: Present: dry, warm Internal Medicine: Result - Labs CBC & Chem 7: 08/14/17 04:43 08/14/17 04:43 Labs: Short CBC 08/14/17 Range/Units 04:43 WBC 7.4 (4.3-11.1) K/mcL Hgb 8.7 L (11.5-15.4) g/dL Hct 30.9 L (35.3-44.9) % Plt Count 223 (140-400) K/mcL BMP 08/14/17 04:43 Sodium 140 Potassium 4.3 Chloride 99 Carbon Dioxide 39 H BUN 34 H Creatinine 0.97 Glucose 135 H Calcium 8.8 - ABG Interpretation ABG results: PT/INR, D-dimer PT 18.0 Seconds (9.4-12.1) H 08/14/17 04:43 - VTE Documentation of Mechanical Device: Intermittent pneumatic compression device Consult Discharge Plan - Plan Referrals: Lisbet Ray CNP [Primary Care Provider] - 08/16/17 2:15 pm <Nahid Moss - Last Filed: 08/14/17 17:29> Date of Encounter: 08/14/17 - Constitutional Vitals: Temp Pulse Resp BP Pulse Ox 98.0 F 85 14 146/95 92 08/14/17 15:32 08/14/17 15:32 08/14/17 16:22 08/14/17 15:32 08/14/17 16:22 Internal Medicine: Result - Labs CBC & Chem 7: 08/14/17 04:43 08/14/17 04:43 Labs: Short CBC 08/14/17 Range/Units 04:43 WBC 7.4 (4.3-11.1) K/mcL Hgb 8.7 L (11.5-15.4) g/dL Hct 30.9 L (35.3-44.9) % Plt Count 223 (140-400) K/mcL BMP 08/14/17 04:43 Sodium 140 Potassium 4.3 Chloride 99 Carbon Dioxide 39 H BUN 34 H Creatinine 0.97 Glucose 135 H Calcium 8.8 - ABG Interpretation ABG results: PT/INR, D-dimer PT 18.0 Seconds (9.4-12.1) H 08/14/17 04:43 - Attending Attestation I examined this patient and my medical decision-making was reviewed with the Resident Physician on 08/14/17. I agree with the documented findings, disposition and treatment plan as described except to the extent set forth below. Seen and examined at the bedside 66 F with multiple medical co-morbidities, chronic resp failure, COPD, multiple readmissions for COPDE. CHF. Afib. Morbid Obesity. Chronic anemia Complains of parotid fullness, no pain, no lymphadenopathy on exam Awaiting colonoscopy. Exam unremarkable save for chronic venous stasis changes Labs and Imaging reviewed Continue current care, for colonoscopy a.m. GI is following Rest of details as in the resident physicians documentation.
[2017-08-14] MEDS: Fluorometholone OPTH 5 ML BOTTLE LEFT EYE SCH ×4 (16:59→20:48)
[2017-08-14] MEDS: rOPINIRole 1 MG TABLET PO SCH (20:48)
[2017-08-14] MEDS: PROPAFENONE 225 MG PO SCH (20:48)
[2017-08-15] MEDS: Ipratropium/Albuterol Neb 3 ML IH SCH ×4 (03:58→21:52)
[2017-08-15] MEDS: Pantoprazole 40 MG VIAL IVP SCH ×2 (05:02→16:15)
[2017-08-15] MEDS: Insulin LISPRO 300 UNITS/3 ML VIAL SQ SCH ×4 (09:22→20:14)
[2017-08-15] MEDS: Isosorbide MONOnitrate (24 HR) 30 MG TAB.ER.24H PO SCH (09:23)
[2017-08-15] MEDS: Magnesium Oxide 400 MG TABLET PO SCH (09:24)
[2017-08-15] MEDS: Furosemide 40 MG/4 ML VIAL IVP SCH (09:25)
[2017-08-15] MEDS: Ascorbic Acid 500 MG TABLET PO SCH (09:25)
[2017-08-15] MEDS: Cholecalciferol (D-3) 1,000 UNIT TABLET PO SCH (09:25)
[2017-08-15] MEDS: Diltiazem CD (24hr) 180 MG CAPSULE PO SCH (09:25)
[2017-08-15] MEDS: Cyanocobalamin (B-12) 1,000 MCG TABLET PO SCH (09:25)
[2017-08-15] MEDS: predniSONE 20 MG TABLET PO SCH (09:25)
[2017-08-15] MEDS: Fluorometholone OPTH 5 ML BOTTLE LEFT EYE SCH ×4 (09:27→20:14)
[2017-08-15] MEDS: PROPAFENONE 225 MG PO SCH ×2 (09:27→20:14)
[2017-08-15] MEDS: ADVAIR IH SCH ×2 (10:25→21:52)
--- NOTE | 2017-08-15 11:04 | Internal Med Progress Note ---
<Nahid Moss - Last Filed: 08/15/17 16:02> Date of Encounter: 08/15/17 - Constitutional Vitals: Temp Pulse Resp BP Pulse Ox 98.1 F 80 16 150/70 98 08/15/17 11:41 08/15/17 11:41 08/15/17 11:41 08/15/17 11:41 08/15/17 11:41 Internal Medicine: Result - Labs CBC & Chem 7: 08/15/17 12:18 08/15/17 12:18 Labs: Short CBC 08/15/17 Range/Units 12:18 WBC 9.1 (4.3-11.1) K/mcL Hgb 9.9 L (11.5-15.4) g/dL Hct 35.7 (35.3-44.9) % Plt Count 280 (140-400) K/mcL Neutrophils # 7.1 (1.6-8.9) K/mcL BMP 08/15/17 12:18 Sodium 140 Potassium 4.2 Chloride 95 L Carbon Dioxide 38 H BUN 31 H Creatinine 1.10 Glucose 139 H Calcium 9.6 - ABG Interpretation ABG results: PT/INR, D-dimer PT 13.9 Seconds (9.4-12.1) H 08/15/17 12:18 Consult Discharge Plan - Plan Referrals: Lisbet Ray, [facility] [place] [Primary Care Provider] - 08/16/17 2:15 pm - Attending Attestation I examined this patient and my medical decision-making was reviewed with the Resident Physician on 08/15/17. I agree with the documented findings, disposition and treatment plan as described except to the extent set forth below. Seen and examined at the bedside 66 F with multiple medical co-morbidities, chronic resp failure, COPD, multiple readmissions for COPDE. CHF. Afib. Morbid Obesity. Chronic anemia NO new complains Exam unremarkable save for chronic venous stasis changes Plan Labs were delayed today and eventually resulted this afternoon INR is 1.3 We will start bowel prep for colonoscopy Reconsult GI Chnage protonix to po daily dose after colonosocpy, EGD was unremarkable Change lasix to po Rest of details as in the resident physicians documentation. <Spencer Alexander - Last Filed: 08/15/17 17:09> Date of Encounter: 08/15/17 Time of Encounter: 08:30 - Assessment and plan (1) Acute and chronic respiratory failure with hypoxia Current Visit: Yes Status: Acute Assessment and plan: Secondary to CHF and COPD exacerbations (2) Anemia Current Visit: Yes Status: Chronic Assessment and plan: Labs not available from this morning EGD showed polyp and gastritis without benjamin bleeding Ordered colonoscopy prep, INR 1.3 Plan for colonoscopy tomorrow Qualifiers: Anemia type: unspecified type Qualified Code(s): D64.9 - Anemia, unspecified (3) GI (gastrointestinal bleed) Current Visit: Yes Status: Acute Assessment and plan: Occult blood positive Continue IV protonix See plan of care above Qualifiers: GI bleed type/associated pathology: unspecified gastrointestinal hemorrhage type Qualified Code(s): K92.2 - Gastrointestinal hemorrhage, unspecified (4) Acute exacerbation of chronic obstructive airways disease Current Visit: Yes Status: Acute Assessment and plan: Continue prednisone 40 mg (Day 8), symbicort, azithromycin, breathing treatments , and supplemental O2 (5) Heart failure with preserved ejection fraction Current Visit: Yes Status: Chronic Assessment and plan: Continue Lasix Balance of -4400 mL (6) Atrial fibrillation Current Visit: Yes Status: Acute Assessment and plan: Holding coumadin secondary to GI bleed Continue cardizem and rythmol Qualifiers: Atrial fibrillation type: paroxysmal Qualified Code(s): I48.0 - Paroxysmal atrial fibrillation (7) Fall Current Visit: Yes Status: Acute Assessment and plan: Home Health on discharge per PT/OT Qualifiers: Encounter type: subsequent encounter Qualified Code(s): W19.XXXD - Unspecified fall, subsequent encounter (8) Phalanx of the foot fracture Current Visit: Yes Status: Acute Assessment and plan: Stable Qualifiers: Encounter type: subsequent encounter Toe: lesser toe Fracture type: closed Phalanx: proximal Fracture alignment: nondisplaced Laterality: right Fracture healing: with routine healing Qualified Code(s): S92.514D - Nondisplaced fracture of proximal phalanx of right lesser toe(s), subsequent encounter for fracture with routine healing - Subjective Interval history: Still some exertional SOB, no significant changes. - Constitutional Vitals: Temp Pulse Resp BP Pulse Ox 98.2 F 78 16 157/70 96 08/15/17 06:51 08/15/17 06:51 08/15/17 06:51 08/15/17 06:51 08/15/17 06:51 General appearance: Present: cooperative, A&O X 3, pleasant, obese, answers questions appropriately - Head Head exam: Present: atraumatic, normal inspection, normocephalic - ENT ENT exam: Present: mucous membranes moist - Neck Neck exam general surgery: Present: trachea midline - Respiratory Respiratory exam: Present: wheezes. Absent: accessory muscle use, prolonged expiratory phase - Cardiovascular Cardiovascular exam: Present: RRR, +S1, +S2 - GI/Abdominal GI/Abdominal exam: Present: soft, no peritoneal signs. Absent: tenderness - Extremities Exam Extremities exam: Present: pedal edema (3+) - Neurological Exam Neurological exam: Present: alert, oriented X3 - Psychiatric Psychiatric exam: Present: normal affect, normal mood - Skin Skin exam: Present: dry, warm Internal Medicine: Result - Labs CBC & Chem 7: 08/15/17 12:18 08/15/17 12:18 - ABG Interpretation ABG results: PT/INR, D-dimer PT 18.0 Seconds (9.4-12.1) H 08/14/17 04:43 - VTE Documentation of Mechanical Device: Intermittent pneumatic compression device
[2017-08-15 12:35] LABS: INR 1.3; Prothrombin Time 13.9 Seconds (9.4-12.1)
[2017-08-15 12:36] LABS: Basophils % 0.1 %; Lymphocytes % 9.9 %; Red Cell Distribution Width 15.9 % (11.5-14.5)
[2017-08-15 12:38] LABS: Eosinophils # 0.1 K/mcL (0.0-0.6); Eosinophils % 0.8 %; Hematocrit 35.7 % (35.3-44.9); Hemoglobin 9.9 g/dL (11.5-15.4); Immature Granulocytes % 0.8 % (0-4); Lymphocytes # 0.9 K/mcL (0.6-4.6); Mean Corpuscular HGB Conc 27.7 g/dL (31.6-35.5); Mean Corpuscular Hemoglobin 23.8 pg (28.0-33.3); Mean Corpuscular Volume 85.8 fL (83.0-100.0); Mean Platelet Volume 11.4 fL (9.4-12.4); Monocytes # 0.9 K/mcL (0.0-1.3); Neutrophils # 7.1 K/mcL (1.6-8.9); Platelet Count 280 K/mcL (140-400); Red Blood Count 4.16 M/mcL (3.82-4.97); Segmented Neutrophils % 78.4 %
[2017-08-15 13:12] LABS: Calcium 9.6 mg/dL (8.6-10.3); Potassium 4.2 mEq/L (3.5-5.1)
[2017-08-15 13:16] LABS: Hypochromasia Present (Not Present); Platelet Estimate Normal (Normal)
[2017-08-15] MEDS ORDERED: SODIUM CHLORIDE/NAHCO3/KCL/PEG 4,000 ML SOLN.RECON PO ONE (15:46)
[2017-08-15] MEDS: rOPINIRole 1 MG TABLET PO SCH (20:13)
[2017-08-16] MEDS: Ipratropium/Albuterol Neb 3 ML IH SCH ×4 (03:40→22:25)
[2017-08-16] MEDS: Pantoprazole 40 MG VIAL IVP SCH ×2 (04:38→17:52)
[2017-08-16 05:29] LABS: Hemoglobin 9.8 g/dL (11.5-15.4)
[2017-08-16 05:30] LABS: Hematocrit 35.5 % (35.3-44.9); Mean Corpuscular HGB Conc 27.6 g/dL (31.6-35.5); Mean Corpuscular Volume 86.8 fL (83.0-100.0); Mean Platelet Volume 11.4 fL (9.4-12.4); Platelet Count 292 K/mcL (140-400); Red Blood Count 4.09 M/mcL (3.82-4.97)
[2017-08-16 05:31] LABS: INR 1.2; Prothrombin Time 12.8 Seconds (9.4-12.1)
[2017-08-16 05:38] LABS: BUN/Creatinine Ratio 28 (6-26); Blood Urea Nitrogen 26 mg/dL (8-23); Calcium 9.1 mg/dL (8.6-10.3); Carbon Dioxide 40 mEq/L (23-29); Chloride 98 mEq/L (98-107); Glucose 131 mg/dL (70-105); Osmolality,Calculated 295 (280-300); Potassium 4.7 mEq/L (3.5-5.1); Sodium 139 mEq/L (136-145); eGFR For African Americans > 60 (> 60); eGFR For Non-African Americans > 60 (> 60)
[2017-08-16] MEDS ORDERED: Furosemide 40 MG TABLET PO SCH (08:00)
[2017-08-16] MEDS: Insulin LISPRO 300 UNITS/3 ML VIAL SQ SCH ×4 (09:38→22:21)
[2017-08-16] MEDS: Cyanocobalamin (B-12) 1,000 MCG TABLET PO SCH (09:49)
[2017-08-16] MEDS: Ascorbic Acid 500 MG TABLET PO SCH (09:49)
[2017-08-16] MEDS: Cholecalciferol (D-3) 1,000 UNIT TABLET PO SCH (09:51)
[2017-08-16] MEDS: predniSONE 20 MG TABLET PO SCH (09:51)
[2017-08-16] MEDS: Diltiazem CD (24hr) 180 MG CAPSULE PO SCH (09:51)
[2017-08-16] MEDS: Magnesium Oxide 400 MG TABLET PO SCH (09:51)
[2017-08-16] MEDS: Isosorbide MONOnitrate (24 HR) 30 MG TAB.ER.24H PO SCH (09:51)
[2017-08-16] MEDS: Fluorometholone OPTH 5 ML BOTTLE LEFT EYE SCH ×3 (09:52→17:44)
[2017-08-16] MEDS: PROPAFENONE 225 MG PO SCH ×2 (09:58→22:22)
[2017-08-16] MEDS: ADVAIR IH SCH ×2 (11:18→22:26)
--- NOTE | 2017-08-16 12:25 | Internal Med Progress Note ---
<Spencer Alexander - Last Filed: 08/16/17 14:55> Date of Encounter: 08/16/17 Time of Encounter: 08:15 - Assessment and plan (1) Acute and chronic respiratory failure with hypoxia Current Visit: Yes Status: Acute Assessment and plan: Secondary to CHF and COPD exacerbations Improved (2) Anemia Current Visit: Yes Status: Chronic Assessment and plan: Stable 9.9 to 9.8 EGD showed polyp and gastritis without benjamin bleeding Patient to have colonoscopy this afternoon, provided fecal effluent clears Qualifiers: Anemia type: unspecified type Qualified Code(s): D64.9 - Anemia, unspecified (3) GI (gastrointestinal bleed) Current Visit: Yes Status: Acute Assessment and plan: Occult blood positive Continue IV protonix See plan of care above Qualifiers: GI bleed type/associated pathology: unspecified gastrointestinal hemorrhage type Qualified Code(s): K92.2 - Gastrointestinal hemorrhage, unspecified (4) Acute exacerbation of chronic obstructive airways disease Current Visit: Yes Status: Acute Assessment and plan: Lungs clear Discontinued prednisone (5) Heart failure with preserved ejection fraction Current Visit: Yes Status: Chronic Assessment and plan: Continue Lasix 40 mg po daily (6) Atrial fibrillation Current Visit: Yes Status: Acute Assessment and plan: Restart coumadin after colonoscopy Continue cardizem and rythmol Qualifiers: Atrial fibrillation type: paroxysmal Qualified Code(s): I48.0 - Paroxysmal atrial fibrillation (7) Fall Current Visit: Yes Status: Acute Assessment and plan: Home Health on discharge per PT/OT Qualifiers: Encounter type: subsequent encounter Qualified Code(s): W19.XXXD - Unspecified fall, subsequent encounter (8) Phalanx of the foot fracture Current Visit: Yes Status: Acute Assessment and plan: Stable Qualifiers: Encounter type: subsequent encounter Toe: lesser toe Fracture type: closed Phalanx: proximal Fracture alignment: nondisplaced Laterality: right Fracture healing: with routine healing Qualified Code(s): S92.514D - Nondisplaced fracture of proximal phalanx of right lesser toe(s), subsequent encounter for fracture with routine healing - Subjective Interval history: Patient feeling well. Despite bowel prep, did not have BM until around 0600, after an enema. - Constitutional Vitals: Temp Pulse Resp BP Pulse Ox 97.8 F 77 18 143/55 97 08/16/17 11:25 08/16/17 11:25 08/16/17 11:25 08/16/17 08:20 08/16/17 11:25 General appearance: Present: cooperative, A&O X 3, pleasant, obese, answers questions appropriately - Head Head exam: Present: atraumatic, normal inspection, normocephalic - ENT ENT exam: Present: mucous membranes moist - Neck Neck exam general surgery: Present: trachea midline - Respiratory Respiratory exam: Present: CTAB. Absent: accessory muscle use, respiratory distress - Cardiovascular Cardiovascular exam: Present: RRR, +S1, +S2 - GI/Abdominal GI/Abdominal exam: Present: soft, no peritoneal signs. Absent: tenderness - Extremities Exam Extremities exam: Present: pedal edema (2-3+) - Neurological Exam Neurological exam: Present: alert, oriented X3 - Psychiatric Psychiatric exam: Present: normal affect, normal mood - Skin Skin exam: Present: dry, warm Internal Medicine: Result - Labs CBC & Chem 7: 08/16/17 04:44 08/16/17 04:44 Labs: Short CBC 08/15/17 08/16/17 Range/Units 12:18 04:44 WBC 9.1 8.4 (4.3-11.1) K/mcL Hgb 9.9 L 9.8 L (11.5-15.4) g/dL Hct 35.7 35.5 (35.3-44.9) % Plt Count 280 292 (140-400) K/mcL Neutrophils # 7.1 (1.6-8.9) K/mcL BMP 08/15/17 08/16/17 12:18 04:44 Sodium 140 139 Potassium 4.2 4.7 Chloride 95 L 98 Carbon Dioxide 38 H 40 H* BUN 31 H 26 H Creatinine 1.10 0.92 Glucose 139 H 131 H Calcium 9.6 9.1 - ABG Interpretation ABG results: PT/INR, D-dimer PT 12.8 Seconds (9.4-12.1) H 08/16/17 04:44 - VTE Documentation of Mechanical Device: Intermittent pneumatic compression device Consult Discharge Plan - Plan Referrals: Lisbet Ray, [employer] [Primary Care Provider] - 08/16/17 2:15 pm <Nahid Moss - Last Filed: 08/16/17 16:52> Date of Encounter: 08/16/17 - Constitutional Vitals: Temp Pulse Resp BP Pulse Ox 97.9 F 88 18 176/87 96 08/16/17 15:42 08/16/17 15:42 08/16/17 15:42 08/16/17 15:42 08/16/17 15:42 Internal Medicine: Result - Labs CBC & Chem 7: 08/16/17 04:44 08/16/17 04:44 Labs: Short CBC 08/16/17 Range/Units 04:44 WBC 8.4 (4.3-11.1) K/mcL Hgb 9.8 L (11.5-15.4) g/dL Hct 35.5 (35.3-44.9) % Plt Count 292 (140-400) K/mcL BMP 08/16/17 04:44 Sodium 139 Potassium 4.7 Chloride 98 Carbon Dioxide 40 H* BUN 26 H Creatinine 0.92 Glucose 131 H Calcium 9.1 - ABG Interpretation ABG results: PT/INR, D-dimer PT 12.8 Seconds (9.4-12.1) H 08/16/17 04:44 - Attending Attestation I examined this patient and my medical decision-making was reviewed with the Resident Physician on 08/16/17. I agree with the documented findings, disposition and treatment plan as described except to the extent set forth below. Seen and examined at the bedside 66 F with multiple medical co-morbidities, chronic resp failure, COPD, multiple readmissions for COPDE. CHF. Afib. Morbid Obesity. Chronic anemia NO new complains EGD unremarkable Exam unremarkable save for chronic venous stasis changes Plan Colonoscopy today, resume Coumadin afterwards, possible d/c a.m on home O2 if no intervention by GI Continue other current care Rest of details as in the resident physicians documentation.
--- NOTE | 2017-08-16 13:39 | Anesthesia Evaluation PreOp ---
Date of Encounter: 08/16/17 Time of Encounter: 13:37 - Past History Planned Operation: colonoscopy Cardiac History: CHF (chronic diastolic normal EF), HTN, Hyperlipidemia, Arrhythmia (PAF) Pulmonary History: COPD REINSTATEMENT CLERK History: Denies Any Significant HX Other Medical History: Denies Any Significant HX Anesthesia History: No Prior Anesthetic Complications, Past Anesthesia (shelton, DONNIE, EGD on 08/13/17) Alcohol Use: none Drug use: none Medications and Allergies Alendronate Sodium [Fosamax] 70 mg PO WE 10/28/15 [History] Ascorbate Calcium [Vitamin C] 500 mg PO DAILY 10/28/15 [History] Cholecalciferol (Vitamin D3) [Vitamin D3] 5,000 unit PO DAILY 10/28/15 [History] Cyanocobalamin (Vitamin B-12) [Vitamin B-12] 100 mcg PO DAILY 10/28/15 [History] Tiotropium [Spiriva] 18 mcg IH HS 10/28/15 [History] Warfarin [Coumadin] 5 mg PO DAILY 10/28/15 [History] Dexlansoprazole [Dexilant] 60 mg PO DAILY 07/03/16 [History] Ferrous Sulfate [Iron] 325 mg PO DAILY 07/03/16 [History] Albuterol Sulfate [Proventil Hfa] 2 puff IH Q4H PRN 09/14/16 [History] Oxygen 3 l IH AD 10/24/16 [History] Fluticasone/Salmeterol [Advair 250-50 Diskus] 1 puff IH BID #1 blst.w.dev [Rx] Montelukast [Singulair] 10 mg PO DAILY 11/29/16 [History] Ropinirole HCl [Requip] 2 mg PO HS 11/29/16 [History] Magnesium Oxide [Mag-Ox] 400 mg PO DAILY #30 tablet 12/04/16 [Rx] Furosemide [Lasix] 20 mg PO BID #60 01/11/17 [Rx] Calcium Carbonate [Calcium] 600 mg PO BID 05/08/17 [History] Fluorometholone [Fml Forte] 1 drop LEFT EYE QID 05/08/17 [History] Lisinopril [Zestril] 2.5 mg PO BID 05/08/17 [History] Diltiazem CD (24hr) [Cardizem CD] 120 mg PO DAILY cap.er.24h 05/21/17 [Rx] Acetaminophen/Diphenhydramine [Percogesic 325-12.5 mg Tablet] 1 - 2 tab PO HS PRN 07/19/17 [History] Spironolactone [Aldactone] 50 mg PO DAILY 07/19/17 [History] Propafenone HCl [Propafenone HCl ER] 225 mg PO Q12H 07/20/17 [History] Albuterol Neb [Proventil Neb] 2.5 mg IH Q4H PRN #30 inhsol 07/23/17 [Rx] DiphenhydraMINE [Benadryl] 25 mg PO HS PRN capsule 07/23/17 [Rx] GuaiFENesin ER [Mucinex] 600 mg PO BID PRN #1 bottle 07/23/17 [Rx] 3 Allergy/AdvReac Type Severity Reaction Status Date / Time aspirin [ASA] Allergy Difficulty Verified 08/07/17 20:01 Breathing Penicillins Allergy Hives Verified 08/07/17 20:01 Sulfa (Sulfonamide Allergy Rash Verified 08/07/17 20:01 Antibiotics) - Meds/Allergy Pre-op Review Medications Reviewed: Yes Allergies Reviewed: Yes Beta Blockers on Current Med List: No Anesthesia Results - Labs 08/16/17 04:44 08/16/17 04:44 Anesthesia Exam Selected Entries 08/16/17 11:25 Temperature 97.8 F Pulse Rate 77 Respiratory Rate 18 O2 Sat by Pulse Oximetry 97 Oxygen Flow Rate (LPM) 3 Weight: 159kg - HEENT Pupil (Motor): EOMI Teeth: Edentulous Oral Opening: Less than or equal to 3 - REINSTATEMENT CLERK LOC: Oriented REINSTATEMENT CLERK Motor: Normal RUE, Normal LUE, Normal RLE, Normal LLE, Normal Face REINSTATEMENT CLERK Sensory: Normal: RUE, LUE, RLE, LLE, Face - Cardiac Rhythm: Regular Murmur: None - Pulmonary Breath Sounds: bilateral Clear Respiratory Effort: Symmetrical Anesthesia Assess/Plan ASA Score: 3 Modified Fatou Scale for Level of Consciousness: Cooperative, oriented, and tranquil Anesthetic Plan: MAC Monitoring Plan: Standard Monitors Recovery Plan: PACU (agrees to proceed with MAC)
[2017-08-16] MEDS: 0.9 % Sodium Chloride 500 ML IVC SCH (14:29)
--- NOTE | 2017-08-16 15:04 | Anesthesia Evaluation Post Op ---
Date of Encounter: 08/16/17 Time of Encounter: 15:03 - Vital Signs Vital Signs: Vital Signs/O2 Sat, Most Current Temp Pulse Resp BP Pulse Ox 97.8 F 74 18 159/70 99 08/16/17 11:25 08/16/17 14:27 08/16/17 14:27 08/16/17 14:27 08/16/17 14:27 - Lungs Lungs: Clear Ascult./Percussion - Airway Airway: Non-obstructed - Mental Status Mental Status: Alert & Oriented, Answers Appropriately - Pain Pain Scale: 1 Pain Scale used: Numeric (1 - 10) - Nausea Vomiting Nausea Vomiting: Not Present - Hydration Hydration: NPO, Has not voided Notes: 08/16/17 15:03 awake, VSS, no anesthetic complications
[2017-08-16] MEDS ORDERED: Polyethylene Glycol 3350 255 GM POWDER PO ONE (17:54)
[2017-08-16] MEDS: rOPINIRole 1 MG TABLET PO SCH (22:21)
[2017-08-17] MEDS: Fluorometholone OPTH 5 ML BOTTLE LEFT EYE SCH ×5 (02:31→20:01)
[2017-08-17] MEDS: Ipratropium/Albuterol Neb 3 ML IH SCH ×4 (04:20→22:07)
[2017-08-17] MEDS: Pantoprazole 40 MG VIAL IVP SCH ×2 (05:34→18:01)
[2017-08-17 05:57] LABS: Hematocrit 35.5 % (35.3-44.9); Mean Platelet Volume 11.1 fL (9.4-12.4); Red Cell Distribution Width 15.9 % (11.5-14.5)
[2017-08-17 05:59] LABS: Hemoglobin 9.9 g/dL (11.5-15.4); Mean Corpuscular HGB Conc 27.9 g/dL (31.6-35.5); Platelet Count 280 K/mcL (140-400); Red Blood Count 4.13 M/mcL (3.82-4.97)
[2017-08-17 06:01] LABS: INR 1.2; Prothrombin Time 13.1 Seconds (9.4-12.1)
[2017-08-17 06:10] LABS: BUN/Creatinine Ratio 18 (6-26); Blood Urea Nitrogen 17 mg/dL (8-23); Calcium 9.5 mg/dL (8.6-10.3); Carbon Dioxide 37 mEq/L (23-29); Chloride 99 mEq/L (98-107); Glucose 99 mg/dL (70-105); Osmolality,Calculated 294 (280-300); Potassium 4.3 mEq/L (3.5-5.1); Sodium 141 mEq/L (136-145); eGFR For African Americans > 60 (> 60); eGFR For Non-African Americans > 60 (> 60)
--- NOTE | 2017-08-17 07:55 | Anesthesia Progress Note ---
Date of Encounter: 08/17/17 Time of Encounter: 07:53 Anesthesia Note - Note Note: 08/17/17 07:53 Patient had an attempted colonoscopy yesterday (08-16-17) but was aborted due to inadequate prep. Patient presents today to attempt the procedure again. No changes in her medical history or exam. Patient has agreed to MAC.
--- NOTE | 2017-08-17 08:00 | History & Physical Report ---
Date of Encounter: 08/17/17 Time of Encounter: 07:59 24 Hour HP Update - Instructions Instructions: If the History and Physical is less than 30 days old and was completed prior to A.M. admission and or procedure and has NOT been updated on calendar day of procedure please complete this update prior to performing procedure. - Update Patient reports changes in Medical Condition: No Changes in examination, assessment, or condition: No Changes in Medication: No Preop tests/diagnostics Reviewed: Yes Surgery Remains Indicated: Yes Consent for Planned Operative Procedure(s) Verified: Yes - Pre-Operative Checklist Preoperative Checklist Indicated: Yes Prophylactic Antibiotic Ordered: No Home Medications Include Beta Albino: Yes
[2017-08-17] MEDS ORDERED: Lidocaine Viscous Oral Soln 15 ML SOLUTION ONE (09:24)
[2017-08-17] MEDS ORDERED: Lidocaine Viscous Oral Soln 15 ML SOLUTION MM ONE (09:24)
--- NOTE | 2017-08-17 09:35 | Anesthesia Evaluation Post Op ---
Date of Encounter: 08/17/17 Time of Encounter: 09:34 - Vital Signs Vital Signs: 3 Vital Signs Time 0930 BP 141/69 Pulse 81 Resp 16 O2 Sat 98 - Lungs Lungs: Clear Ascult./Percussion - Airway Airway: Non-obstructed - Cardiovascular Regular Rate - Mental Status Mental Status: Alert & Oriented, Answers Appropriately - Pain Pain Scale: 1 Pain Scale used: Numeric (1 - 10) - Nausea Vomiting Nausea Vomiting: Not Present - Hydration Hydration: NPO, Has not voided - Discharge PostOp Status: Transfer Patient to floor
[2017-08-17] MEDS ORDERED: Propofol 500 MG/50 ML INFUS..BTL ONE (09:36)
--- NOTE | 2017-08-17 10:07 | Internal Med Progress Note ---
<Spencer Alexander - Last Filed: 08/17/17 11:49> Date of Encounter: 08/17/17 Time of Encounter: 10:05 - Assessment and plan (1) Acute and chronic respiratory failure with hypoxia Current Visit: Yes Status: Resolved Assessment and plan: Secondary to CHF and COPD exacerbations resolved (2) Anemia Current Visit: Yes Status: Chronic Assessment and plan: Stable at 9.9 EGD showed polyp and gastritis without benjamin bleeding 1st colonoscopy showed one medium-size angioectasia which was cauterized. Repeat colonoscopy performed just before patient was seen this morning. Qualifiers: Anemia type: unspecified type Qualified Code(s): D64.9 - Anemia, unspecified (3) GI (gastrointestinal bleed) Current Visit: Yes Status: Acute Assessment and plan: Continue IV protonix See plan of care above Qualifiers: GI bleed type/associated pathology: unspecified gastrointestinal hemorrhage type Qualified Code(s): K92.2 - Gastrointestinal hemorrhage, unspecified (4) Acute exacerbation of chronic obstructive airways disease Current Visit: Yes Status: Resolved Assessment and plan: Resolved. (5) Heart failure with preserved ejection fraction Current Visit: Yes Status: Chronic Assessment and plan: Continue Lasix 40 mg po daily Still significant swelling in the lower extremities, but no rales noted. (6) Atrial fibrillation Current Visit: Yes Status: Acute Assessment and plan: Bridging to Coumadin with lovenox INR 1.2 this morning Continue cardizem and rythmol Qualifiers: Atrial fibrillation type: paroxysmal Qualified Code(s): I48.0 - Paroxysmal atrial fibrillation (7) Fall Current Visit: Yes Status: Acute Assessment and plan: Home Health on discharge per PT/OT Qualifiers: Encounter type: subsequent encounter Qualified Code(s): W19.XXXD - Unspecified fall, subsequent encounter (8) Phalanx of the foot fracture Current Visit: Yes Status: Acute Assessment and plan: Stable Qualifiers: Encounter type: subsequent encounter Toe: lesser toe Fracture type: closed Phalanx: proximal Fracture alignment: nondisplaced Laterality: right Fracture healing: with routine healing Qualified Code(s): S92.514D - Nondisplaced fracture of proximal phalanx of right lesser toe(s), subsequent encounter for fracture with routine healing (9) Essential hypertension Current Visit: Yes Status: Chronic Assessment and plan: Uncontrolled this morning at 180/80 She was NPO for colonoscopy Resuming home medications - Subjective Interval history: Patient return from repeat colonoscopy. Feeling well with no complaints. Swelling continues to decrease. - Constitutional Vitals: Temp Pulse Resp BP Pulse Ox 97.6 F 85 18 180/80 97 08/17/17 08:07 08/17/17 08:07 08/17/17 08:07 08/17/17 08:07 08/17/17 08:07 General appearance: Present: cooperative, A&O X 3, pleasant, obese, answers questions appropriately - Head Head exam: Present: atraumatic, normal inspection, normocephalic - ENT ENT exam: Present: mucous membranes moist - Neck Neck exam general surgery: Present: trachea midline - Respiratory Respiratory exam: Present: CTAB. Absent: accessory muscle use, respiratory distress - Cardiovascular Cardiovascular exam: Present: RRR, +S1, +S2 - GI/Abdominal GI/Abdominal exam: Present: soft, no peritoneal signs. Absent: tenderness - Extremities Exam Extremities exam: Present: pedal edema (+2/3) - Psychiatric Psychiatric exam: Present: normal affect, normal mood. Absent: agitated, anxious - Skin Skin exam: Present: dry, warm Internal Medicine: Result - Labs CBC & Chem 7: 08/17/17 05:35 08/17/17 05:35 Labs: Short CBC 08/17/17 Range/Units 05:35 WBC 10.1 (4.3-11.1) K/mcL Hgb 9.9 L (11.5-15.4) g/dL Hct 35.5 (35.3-44.9) % Plt Count 280 (140-400) K/mcL [facility] 08/17/17 05:35 Sodium 141 Potassium 4.3 Chloride 99 Carbon Dioxide 37 H BUN 17 Creatinine 0.92 Glucose 99 Calcium 9.5 - ABG Interpretation ABG results: PT/INR, D-dimer PT 13.1 Seconds (9.4-12.1) H 08/17/17 05:35 - VTE Documentation of Mechanical Device: Intermittent pneumatic compression device Consult Discharge Plan - Plan Referrals: Lisbet Ray [employer] NEGOTIATOR [Primary Care Provider] - 08/16/17 2:15 pm <Nahid Moss - Last Filed: 08/17/17 15:36> Date of Encounter: 08/17/17 - Constitutional Vitals: Temp Pulse Resp BP Pulse Ox 97.8 F 79 17 135/65 97 08/17/17 11:28 08/17/17 11:28 08/17/17 11:44 08/17/17 11:28 08/17/17 11:44 Internal Medicine: Result - Labs CBC & Chem 7: 08/17/17 05:35 08/17/17 05:35 Labs: Short CBC 08/17/17 Range/Units 05:35 WBC 10.1 (4.3-11.1) K/mcL Hgb 9.9 L (11.5-15.4) g/dL Hct 35.5 (35.3-44.9) % Plt Count 280 (140-400) K/mcL BMP 08/17/17 05:35 Sodium 141 Potassium 4.3 Chloride 99 Carbon Dioxide 37 H BUN 17 Creatinine 0.92 Glucose 99 Calcium 9.5 - ABG Interpretation ABG results: PT/INR, D-dimer PT 13.1 Seconds (9.4-12.1) H 08/17/17 05:35 - Attending Attestation I examined this patient and my medical decision-making was reviewed with the Resident Physician on 08/17/17. I agree with the documented findings, disposition and treatment plan as described except to the extent set forth below. Seen and examined at the bedside 66 F with multiple medical co-morbidities, chronic resp failure, COPD, multiple readmissions for COPDE. CHF. Afib. Morbid Obesity. Chronic anemia NO new complains EGD unremarkable s/p colonoscopy today with rectal polyps, angiectasia, hemorrhoids, no bleeding evident Exam unremarkable save for chronic venous stasis changes, trace pedal edema bilaterally Plan Resume meds, bridge warfarin wit heparin, continue current care For possible discharge a.m if hb is stable Rest of details as in the resident physicians documentation.
[2017-08-17] MEDS: TIOTROPIUM IH SCH ×2 (11:01→17:57)
[2017-08-17] MEDS: Insulin LISPRO 300 UNITS/3 ML VIAL SQ SCH ×4 (11:02→20:10)
[2017-08-17] MEDS: Cyanocobalamin (B-12) 1,000 MCG TABLET PO SCH (11:06)
[2017-08-17] MEDS: Cholecalciferol (D-3) 1,000 UNIT TABLET PO SCH (11:07)
[2017-08-17] MEDS: Ascorbic Acid 500 MG TABLET PO SCH (11:07)
[2017-08-17] MEDS: Magnesium Oxide 400 MG TABLET PO SCH (11:07)
[2017-08-17] MEDS: Furosemide 40 MG TABLET PO SCH (11:07)
[2017-08-17] MEDS: predniSONE 10 MG TABLET PO SCH (11:07)
[2017-08-17] MEDS: Isosorbide MONOnitrate (24 HR) 30 MG TAB.ER.24H PO SCH (11:07)
[2017-08-17] MEDS: Diltiazem CD (24hr) 180 MG CAPSULE PO SCH (11:08)
[2017-08-17] MEDS: PROPAFENONE 225 MG PO SCH ×2 (11:09→20:02)
[2017-08-17] MEDS: ADVAIR IH SCH ×2 (11:44→22:09)
[2017-08-17] MEDS: 0.9 % Sodium Chloride 500 ML IVC SCH ×2 (17:57→17:58)
[2017-08-17] MEDS ORDERED: *HR* Warfarin 5 MG TABLET PO SCH (18:00)
[2017-08-17] MEDS: rOPINIRole 1 MG TABLET PO SCH (20:00)
[2017-08-18] MEDS: Ipratropium/Albuterol Neb 3 ML IH SCH ×4 (03:25→22:38)
[2017-08-18] MEDS: Pantoprazole 40 MG VIAL IVP SCH (05:11)
[2017-08-18 06:18] LABS: Hematocrit 31.8 % (35.3-44.9); Hemoglobin 8.8 g/dL (11.5-15.4); Immature Platelets 7.5 % (1.1-6.1); Mean Corpuscular HGB Conc 27.7 g/dL (31.6-35.5); Mean Corpuscular Hemoglobin 24.1 pg (28.0-33.3); Mean Corpuscular Volume 87.1 fL (83.0-100.0); Mean Platelet Volume 11.4 fL (9.4-12.4); Red Blood Count 3.65 M/mcL (3.82-4.97); Red Cell Distribution Width 16.2 % (11.5-14.5)
[2017-08-18 06:22] LABS: INR 1.2; Prothrombin Time 13.1 Seconds (9.4-12.1)
[2017-08-18 06:34] LABS: Calcium 9.2 mg/dL (8.6-10.3); Potassium 4.3 mEq/L (3.5-5.1)
[2017-08-18] MEDS: ADVAIR IH SCH ×2 (09:37→22:37)
[2017-08-18] MEDS: 0.9 % Sodium Chloride 500 ML IVC SCH ×2 (09:40→09:41)
[2017-08-18] MEDS: Diltiazem CD (24hr) 180 MG CAPSULE PO SCH (09:46)
[2017-08-18] MEDS: Cholecalciferol (D-3) 1,000 UNIT TABLET PO SCH (09:48)
[2017-08-18] MEDS: predniSONE 10 MG TABLET PO SCH (09:48)
[2017-08-18] MEDS: Isosorbide MONOnitrate (24 HR) 30 MG TAB.ER.24H PO SCH (09:48)
[2017-08-18] MEDS: Ascorbic Acid 500 MG TABLET PO SCH (09:48)
[2017-08-18] MEDS: Cyanocobalamin (B-12) 1,000 MCG TABLET PO SCH (09:48)
[2017-08-18] MEDS: Magnesium Oxide 400 MG TABLET PO SCH (09:48)
[2017-08-18] MEDS: Furosemide 40 MG TABLET PO SCH (09:48)
[2017-08-18] MEDS: PROPAFENONE 225 MG PO SCH (09:49)
[2017-08-18] MEDS: Insulin LISPRO 300 UNITS/3 ML VIAL SQ SCH ×2 (09:49→13:28)
[2017-08-18] MEDS: Fluorometholone OPTH 5 ML BOTTLE LEFT EYE SCH ×2 (09:52→13:28)
[2017-08-18 11:45] VITALS: BP 149/65
--- NOTE | 2017-08-18 12:13 | Discharge Summary ---
<Spencer Alexander - Last Filed: 08/18/17 11:58> Date of Encounter: 08/18/17 Time of Encounter: 11:58 - Discharge Diagnosis (1) Acute and chronic respiratory failure with hypoxia Priority: Primary Status: Resolved (2) Anemia Priority: Primary Status: Chronic Qualifiers: Anemia type: unspecified type Qualified Code(s): D64.9 - Anemia, unspecified (3) GI (gastrointestinal bleed) Priority: Primary Status: Acute Qualifiers: GI bleed type/associated pathology: unspecified gastrointestinal hemorrhage type Qualified Code(s): K92.2 - Gastrointestinal hemorrhage, unspecified (4) Acute exacerbation of chronic obstructive airways disease Priority: Primary Status: Resolved (5) Heart failure with preserved ejection fraction Priority: Primary Status: Chronic (6) Atrial fibrillation Priority: Secondary Status: Acute Qualifiers: Atrial fibrillation type: paroxysmal Qualified Code(s): I48.0 - Paroxysmal atrial fibrillation (7) Fall Priority: Secondary Status: Acute Qualifiers: Encounter type: subsequent encounter Qualified Code(s): W19.XXXD - Unspecified fall, subsequent encounter (8) Phalanx of the foot fracture Priority: Secondary Status: Acute Qualifiers: Encounter type: subsequent encounter Toe: lesser toe Fracture type: closed Phalanx: proximal Fracture alignment: nondisplaced Laterality: right Fracture healing: with routine healing Qualified Code(s): S92.514D - Nondisplaced fracture of proximal phalanx of right lesser toe(s), subsequent encounter for fracture with routine healing (9) Essential hypertension Priority: Secondary Status: Chronic - Discharge Medications Prescriptions: Enoxaparin [Lovenox] 150 mg SQ Q12HR 3 Days #6 syr Home Medications: Alendronate Sodium [Fosamax] 70 mg PO WE 10/28/15 [History] Ascorbate Calcium [Vitamin C] 500 mg PO DAILY 10/28/15 [History] Cholecalciferol (Vitamin D3) [Vitamin D3] 5,000 unit PO DAILY 10/28/15 [History] Cyanocobalamin (Vitamin B-12) [Vitamin B-12] 100 mcg PO DAILY 10/28/15 [History] Tiotropium [Spiriva] 18 mcg IH HS 10/28/15 [History] Warfarin [Coumadin] 5 mg PO DAILY 10/28/15 [History] Dexlansoprazole [Dexilant] 60 mg PO DAILY 11/28/16 [History] Ferrous Sulfate [Iron] 325 mg PO DAILY 07/03/16 [History] Albuterol Sulfate [Proventil Hfa] 2 puff IH Q4H PRN 09/14/16 [History] Oxygen 3 l IH AD 10/24/16 [History] Fluticasone/Salmeterol [Advair 250-50 Diskus] 1 puff IH BID #1 blst.w.dev [Rx] Montelukast [Singulair] 10 mg PO DAILY 11/29/16 [History] Ropinirole HCl [Requip] 2 mg PO HS 11/29/16 [History] Magnesium Oxide [Mag-Ox] 400 mg PO DAILY #30 tablet 12/04/16 [Rx] Furosemide [Lasix] 20 mg PO BID #60 01/11/17 [Rx] Calcium Carbonate [Calcium] 600 mg PO BID 05/08/17 [History] Fluorometholone [Fml Forte] 1 drop LEFT EYE QID 05/08/17 [History] Lisinopril [Zestril] 2.5 mg PO BID 05/08/17 [History] Diltiazem CD (24hr) [Cardizem CD] 120 mg PO DAILY cap.er.24h 05/21/17 [Rx] Acetaminophen/Diphenhydramine [Percogesic 325-12.5 mg Tablet] 1 - 2 tab PO HS PRN 07/19/17 [History] Spironolactone [Aldactone] 50 mg PO DAILY 07/19/17 [History] Propafenone HCl [Propafenone HCl ER] 225 mg PO Q12H 07/20/17 [History] Albuterol Neb [Proventil Neb] 2.5 mg IH Q4H PRN #30 inhsol 07/23/17 [Rx] DiphenhydraMINE [Benadryl] 25 mg PO HS PRN capsule 07/23/17 [Rx] GuaiFENesin ER [Mucinex] 600 mg PO BID PRN #1 bottle 07/23/17 [Rx] Enoxaparin [Lovenox] 150 mg SQ Q12HR 3 Days #6 syr 08/18/17 [Rx] Allergies/Adverse Reactions: 3 Allergy/AdvReac Type Severity Reaction Status Date / Time aspirin [ASA] Allergy Difficulty Verified 08/07/17 20:01 Breathing Penicillins Allergy Hives Verified 08/07/17 20:01 Sulfa (Sulfonamide Allergy Rash Verified 08/07/17 20:01 Antibiotics) Date of admission: 08/08/17 04:02 Primary care physician: Lisbet Ray, Consults: 08/08/17 08:45 Consult to Physical Therapy [CONS] Routine Comment: Evaluate, develop and implement POC Reason for Consult: Recent fall OT [Consult to Occupational Therapy] [CONS] Routine Comment: Evaluate, develop and implement POC Reason for Consult: Recent fall 08/10/17 10:42 PICC Consult [Consult to Invasive Line Access Team] [CONS] Routine Reason for Consult: Limited vascular access Line Type: EPIV PICC line indications: Limited vascular access 08/10/17 15:13 Consult to Pulmonary Rehab [CONS] Routine Reason for Consult: Admitted for AE COPD. Pt uses 3L home oxygen. Pt was noted to desaturate on exertion and now requires 6L oxygen. Consult for hypoxic respiratory failure. Appreciate pulmonology evaluation and recommendations. Call Completed: Yes 08/13/17 08:56 Consult to Gastroenterology [CONS] Routine Consulting Provider: Gastroenterology [facility] Reason for Consult: Dropping Hgb (8.6 today) with positive hemoccult. Last Coumadin on 08/11 and INR 2.2 today. NPO after midnight. Never has EGD. Colonscopy 3 yrs ago found 2 polyps per pt. Currently IV PPI BID. Appreciate GI evaluation including possible scope. Call Completed: Yes Discharging clinician: Spencer Alexander Anticipated date of discharge: 08/18/17 - Patient Status Disposition: Home, Self-Care Condition: Fair Functional capacity at discharge: independent ambulation Overall status at discharge: patient is progressing back to baseline - Discharge Instructions Instructions: Enoxaparin (Injection), Heart Failure (DC), Acute Respiratory Distress Syndrome (DC), Chronic Obstructive Pulmonary Disease (DC) Follow Up With: Lisbet Ray, [employer] [Primary Care Provider] - 08/16/17 2:15 pm Additional Instructions: Continue home oxygen through [facility]. @3L at rest, and 5L with ambulation. - Diet and Activity Activity: resume usual activities as tolerated Diet: advance to your usual diet Hospital course: Ms. Guevara is a 66 year old female that presented on 08/08/2017 with exertional shortness of breath for 7 days. She was having increased lower extremity edema. CXR was significant for pulmonary vascular congestion. Significant wheezes on exam. She was treated for COPD exacerbation with oral steroids for 5 days, as well as Symbicort, azithromycin, and breathing treatments. CHF exacerbation was treated with Lasix. Her hemoglobin dropped as low as 7.7 and she was given one unit of blood. She was hemoccult positive and was evaluated by G.I. with endoscopy and colonoscopy. EGD showed polyp and gastritis without benjamin bleeding. Colonoscopies showed an angioectasia, as well as a polyp. She was restarted on Coumadin and is being bridged with Lovenox. - Time Spent with Patient Total time spent providing and/or coordinating discharge services: - Constitutional Vitals: Temp Pulse Resp BP Pulse Ox 98.3 F 81 14 149/65 92 08/18/17 11:34 08/18/17 11:34 08/18/17 11:34 08/18/17 11:34 08/18/17 11:34 General appearance: Present: cooperative, A&O X 3, pleasant, obese, answers questions appropriately - Head Head exam: Present: atraumatic, normal inspection, normocephalic - ENT ENT exam: Present: mucous membranes moist - Neck Neck exam general surgery: Present: trachea midline - Respiratory Respiratory exam: Present: CTAB. Absent: accessory muscle use, respiratory distress - Cardiovascular Cardiovascular exam: Present: RRR, +S1, +S2 - GI/Abdominal GI/Abdominal exam: Present: soft, no peritoneal signs. Absent: tenderness - Extremities Exam Extremities exam: Present: pedal edema - Psychiatric Psychiatric exam: Present: normal affect, normal mood. Absent: agitated, anxious - Skin Skin exam: Present: dry, warm - VTE Documentation of Mechanical Device: Intermittent pneumatic compression device <Nahid Moss - Last Filed: 08/18/17 14:05> Date of Encounter: 08/18/17 Date of admission: 08/08/17 04:02 Primary care physician: Lisbet Ray, Consults: 08/08/17 08:45 Consult to Physical Therapy [CONS] Routine Comment: Evaluate, develop and implement POC Reason for Consult: Recent fall OT [Consult to Occupational Therapy] [CONS] Routine Comment: Evaluate, develop and implement POC Reason for Consult: Recent fall 08/10/17 10:42 PICC Consult [Consult to Invasive Line Access Team] [CONS] Routine Reason for Consult: Limited vascular access Line Type: EPIV PICC line indications: Limited vascular access 08/10/17 15:13 Consult to Pulmonary Rehab [CONS] Routine Reason for Consult: Admitted for AE COPD. Pt uses 3L home oxygen. Pt was noted to desaturate on exertion and now requires 6L oxygen. Consult for hypoxic respiratory failure. Appreciate pulmonology evaluation and recommendations. Call Completed: Yes 08/13/17 08:56 Consult to Gastroenterology [CONS] Routine Consulting Provider: Gastroenterology [facility] Reason for Consult: Dropping Hgb (8.6 today) with positive hemoccult. Last Coumadin on 08/11 and INR 2.2 today. NPO after midnight. Never has EGD. Colonscopy 3 yrs ago found 2 polyps per pt. Currently IV PPI BID. Appreciate GI evaluation including possible scope. Call Completed: Yes Hospital course: Ms. Guevara is a 66 year old female - Time Spent with Patient Total time spent providing and/or coordinating discharge services: - Constitutional Vitals: Temp Pulse Resp BP Pulse Ox 98.3 F 81 14 149/65 92 08/18/17 11:34 08/18/17 11:34 08/18/17 11:34 08/18/17 11:34 08/18/17 11:34 - Attending Attestation I examined this patient and my medical decision-making was reviewed with the Resident Physician on 08/18/17. I agree with the documented findings, disposition and treatment plan as described except to the extent set forth below. Seen and examined at the bedside 66 F with multiple medical co-morbidities, chronic resp failure, COPD, multiple readmissions for COPDE. CHF. Afib. Morbid Obesity. Chronic anemia NO new complains EGD unremarkable s/p colonoscopy today with rectal polyps, angiectasia, hemorrhoids, no bleeding evident Exam unremarkable save for chronic venous stasis changes, trace pedal edema bilaterally Plan Stable for discharge home on current meds, bridge warfarin with lovenox Rest of details as in the resident physicians documentation.
[2017-08-19] MEDS: Ipratropium/Albuterol Neb 3 ML IH SCH (03:38)
== END 2017-08-18 14:00 | disposition home or self-care (01) | DRG 291 ==
LOC: EMEROO 17:01 → 2NNU 17:01 → SUATTDRO 08-08 04:02 → 2NENU 08-08 20:11
PROVIDERS: ADMIT Internal Medicine; ATTEND Internal Medicine
PROC: ENDOCCB (2017-08-16 14:00)

== ENCOUNTER 2017-09-05 14:23 | Inpatient (IN) ==
[2017-09-05] MEDS ORDERED: *HR* Metoprolol 5 MG/5 ML VIAL IVP ONE (14:40)
[2017-09-05] MEDS ORDERED: 0.9 % Sodium Chloride 500 ML IVC ONE (14:45)
--- NOTE | 2017-09-05 14:57 | Emergency Department Note ---
Disposition Clinical Impression: Paroxysmal atrial fibrillation, Atrial fibrillation with RVR Disposition: Admitted As Inpatient Condition: Fair Time of Disposition: 17:24 Arrhythmia/Palpitations HPI - General Chief Complaint: ED Arrhythmia/Palpitations Stated Complaint: A-Fib Time Seen by Provider: 09/05/17 14:39 Source: patient, family Limitations: no limitations Nursing Notes Reviewed: Yes Vital Signs Reviewed: Yes - History of Present Illness HPI Narrative: 58-year-old female history of COPD, CAD, hypertension, hyperlipidemia, diabetes , chronic A. fib, normally rate controlled on Rythmol and diltiazem, presents with rapid heart rate. States she denies any chest pain but does have shortness of breath, should palpitations for a day and a half, no recent URIs, no recent dysuria hematuria, abdominal pain. Patient states that she started feeling her heart racing. Unknown what caused this. She is normally rate controlled and she has been rate controlled since February. 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 Aj Virk, she is no history of ablations, she has been on Coumadin for A. fib since Pt Subjective Complaint: rapid heart beat, "heart racing", atrial fibrillation Onset (ago): day(s) (1) Duration: intermittent Severity: mild Associated symptoms: Reports: shortness of breath. Denies: chest pain, syncope , nausea, anxiety, diaphoresis, cough, paresthesias, muscle cramps Treatments prior to arrival: vagal maneuvers - Related Data Home Medications Medication Instructions Recorded Confirmed Alendronate Sodium [Fosamax] 70 mg PO WE 10/28/15 08/07/17 Ascorbate Calcium [Vitamin C] 500 mg PO DAILY 10/28/15 08/07/17 Cholecalciferol (Vitamin D3) 5,000 unit PO DAILY 10/28/15 08/07/17 [Vitamin D3] Cyanocobalamin (Vitamin B-12) 100 mcg PO DAILY 10/28/15 08/07/17 [Vitamin B-12] Tiotropium [Spiriva] 18 mcg [facility] 10/28/15 08/07/17 Warfarin [Coumadin] 5 mg PO DAILY 10/28/15 08/07/17 Dexlansoprazole [Dexilant] 60 mg PO DAILY 07/03/16 08/07/17 Ferrous Sulfate [Iron] 325 mg PO DAILY 07/03/16 08/07/17 Albuterol Sulfate [Proventil Hfa] 2 puff IH Q4H PRN 09/14/16 08/07/17 Oxygen 3 l IH AD 10/24/16 08/07/17 Montelukast [Singulair] 10 mg PO DAILY 11/29/16 08/07/17 Ropinirole HCl [Requip] 2 mg PO HS 11/29/16 08/07/17 Calcium Carbonate [Calcium] 600 mg PO BID 05/08/17 08/07/17 Fluorometholone [Fml Forte] 1 drop LEFT EYE QID 05/08/17 08/07/17 Lisinopril [Zestril] 2.5 mg PO BID 05/08/17 08/07/17 Acetaminophen/Diphenhydramine 1 - 2 tab PO HS PRN 07/19/17 08/07/17 [Percogesic 325-12.5 mg Tablet] Spironolactone [Aldactone] 50 mg PO DAILY 07/19/17 08/07/17 Propafenone HCl [Propafenone HCl 225 mg PO Q12H 07/20/17 08/07/17 ER] Previous Rx's Medication Instructions Recorded Fluticasone/Salmeterol [Advair 1 puff IH BID #1 blst.w.dev 11/16/16 250-50 Diskus] Magnesium Oxide [Mag-Ox] 400 mg PO DAILY #30 tablet 12/04/16 Furosemide [Lasix] 20 mg PO BID #60 01/11/17 Diltiazem CD (24hr) [Cardizem CD] 120 mg PO DAILY cap.er.24h 05/21/17 Albuterol Neb [Proventil Neb] 2.5 mg IH Q4H PRN #30 inhsol 07/23/17 DiphenhydraMINE [Benadryl] 25 mg PO HS PRN capsule 07/23/17 Allergies Allergy/AdvReac Type Severity Reaction Status Date / Time aspirin [ASA] Allergy Difficulty Verified 09/05/17 14:28 Breathing Penicillins Allergy Hives Verified 09/05/17 14:28 Sulfa (Sulfonamide Allergy Rash Verified 09/05/17 14:28 Antibiotics) All systems ED: reviewed and negative except as stated. Review of Systems: As Per HPI Constitutional: Denies: fever, chills Eyes: Denies: eye pain ENT ED: Denies: ear pain Cardiovascular: Reports: as per HPI, palpitations. Denies: chest pain, dyspnea on exertion Respiratory: Reports: dyspnea Gastrointestinal: Denies: abdominal pain, nausea Genitourinary: Denies: urgency, dysuria Musculoskeletal: Denies: back pain Past Medical History - Past Medical History Attestation: Yes The following information was validated with the patient. 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 - Social History Smoking Status: Never smoker Smokeless Tobacco Status: No Alcohol use: Reports: none Drug use: Reports: none Physical Exam Constitutional: Irregularly irregular rhythm, on 2 L of oxygen in no acute distress Eyes: PERRLA, sclera anicteric ENT & Mouth: MMM Neck: normal inspection, neck is supple Resp: CTA bilaterally, no resp distress CV: tachy irregularly irregular no m/g/r GI: normal inspection, soft, obese female no guarding or rigidity Neuro: A&O3, CNII-XII grossly intact, SOARES Skin: on limited exam, skin intact with no rashes or lesions - General Limitations: no limitations General appearance: alert, in no apparent distress Course Course Narrative: 58-year-old female with atrial fibrillation, history of the same, she is already anticoagulated will try to get her rate under control, initial trial is with fluids and metoprolol then will try diltiazem, she is already on propafenone CBC BMP, chest pain workup. - Reevaluation(s) Reevaluation #1: I spoke with cardiology in consultation talked to Dr. White, he recommended diltiazem drip, admission to medicine service and they will see the patient consultation, heart rate currently goes from 95-105, appears to be sinus arrhythmia. Reevaluation #2: Spoke with the hospitalist Dr. Nguyen will admit the patient for atrial fibrillation, RVR, she is hemodynamically stable admit to medicine service with cardiology consult Vital Signs Temperature 97.8 F 09/05/17 14:24 Pulse Rate 99 09/05/17 14:24 Respiratory Rate 20 09/05/17 14:24 Blood Pressure 123/74 09/05/17 14:24 O2 Sat by Pulse Oximetry 98 09/05/17 14:24 Temperature 97.8 F 09/05/17 14:24 Pulse Rate 94 09/05/17 16:58 Respiratory Rate 18 09/05/17 16:58 Blood Pressure 126/67 09/05/17 16:58 O2 Sat by Pulse Oximetry 97 09/05/17 16:58 Oxygen Delivery Oxygen Delivery Nasal Cannula Arrhythmia/Palpitations - Differential Diagnosis Differential Diagnosis: Likely: palpitations, sinus tachycardia, artial arrhythmia, supraventricular tachycardia - Medical Records Medical records reviewed: Yes I reviewed the patient's medical records. - Lab Data Lab results reviewed: Yes I reviewed the patient's lab results. Result diagrams: 09/05/17 14:54 09/05/17 14:54 Lab Results 09/05/17 09/05/17 09/05/17 Range/Units 14:54 14:54 14:54 WBC 5.0 (4.3-11.1) K/mcL RBC 4.13 (3.82-4.97) M/mcL Hgb 10.1 L (11.5-15.4) g/dL Hct 36.0 (35.3-44.9) % MCV 87.2 (83.0-100.0) fL MCH 24.5 L (28.0-33.3) pg MCHC 28.1 L (31.6-35.5) g/dL RDW 16.7 H (11.5-14.5) % Plt Count 197 (140-400) K/mcL MPV 11.4 (9.4-12.4) fL Immature Gran % 0.8 (0-4) % Seg Neutrophils % 63.3 % Lymphocytes % 21.3 % Monocytes % 12.4 % Eosinophils % 1.8 % Basophils % 0.4 % Neutrophils # 3.2 (1.6-8.9) K/mcL Lymphocytes # 1.1 (0.6-4.6) K/mcL Monocytes # 0.6 (0.0-1.3) K/mcL Eosinophils # 0.1 (0.0-0.6) K/mcL Basophils # 0.0 (0.0-0.2) K/mcL Platelet Estimate Normal (Normal) Hypochromasia Present A (Not Present) Anisocytosis 1+ A (Not Present) PT 22.8 H (9.4-12.1) Seconds INR 2.1 APTT 33.0 (26.0-36.0) Seconds Sodium 141 (136-145) mEq/L Potassium 4.2 (3.5-5.1) mEq/L Chloride 101 (98-107) mEq/L Carbon Dioxide 38 H (23-29) mEq/L BUN 26 H (8-23) mg/dL Creatinine 0.85 (0.60-1.20) mg/dL Est GFR ( Amer) > 60 (> 60) Est GFR (Non-Af Amer) > 60 (> 60) BUN/Creatinine Ratio 31 H (6-26) Glucose 86 (70-105) mg/dL Calculated Osmolality 296 (280-300) Calcium 9.4 (8.6-10.3) mg/dL Troponin I (< 0.04) ng/mL TSH 2.930 (0.340-5.600) mcIU/mL 09/05/17 Range/Units 14:54 WBC (4.3-11.1) K/mcL RBC (3.82-4.97) M/mcL Hgb (11.5-15.4) g/dL Hct (35.3-44.9) % MCV (83.0-100.0) fL MCH (28.0-33.3) pg MCHC (31.6-35.5) g/dL RDW (11.5-14.5) % Plt Count (140-400) K/mcL MPV (9.4-12.4) fL Immature Gran % (0-4) % Seg Neutrophils % % Lymphocytes % % Monocytes % % Eosinophils % % Basophils % % Neutrophils # (1.6-8.9) K/mcL Lymphocytes # (0.6-4.6) K/mcL Monocytes # (0.0-1.3) K/mcL Eosinophils # (0.0-0.6) K/mcL Basophils # (0.0-0.2) K/mcL Platelet Estimate (Normal) Hypochromasia (Not Present) Anisocytosis (Not Present) PT (9.4-12.1) Seconds INR APTT (26.0-36.0) Seconds Sodium (136-145) mEq/L Potassium (3.5-5.1) mEq/L Chloride (98-107) mEq/L Carbon Dioxide (23-29) mEq/L BUN (8-23) mg/dL Creatinine (0.60-1.20) mg/dL Est GFR ( Amer) (> 60) Est GFR (Non-Af Amer) (> 60) BUN/Creatinine Ratio (6-26) Glucose (70-105) mg/dL Calculated Osmolality (280-300) Calcium (8.6-10.3) mg/dL Troponin I < 0.03 (< 0.04) ng/mL TSH (0.340-5.600) mcIU/mL - Radiology Data Radiology results reviewed: Yes I reviewed the patient's radiology results. Chest X-Ray 09/05/17 14:40 IMPRESSION: No acute cardiopulmonary disease D/ / John Zimmerman MD / John Zimmerman MD Interpreting Provider: John Zimmerman MD - EKG Data EKG attestation: Yes I reviewed and interpreted this EKG. EKG shows normal: sinus rhythm Rate: tachycardia (1 27 bpm QRS 81 QTc 352 no evidence of acute ischemic changes.) Scott/QRS: normal - Core Measures AMI Core Measures Followed: No Measure Exclusions: not indicated
[2017-09-05 15:03] LABS: Basophils % 0.4 %; Eosinophils # 0.1 K/mcL (0.0-0.6); Eosinophils % 1.8 %; Hemoglobin 10.1 g/dL (11.5-15.4); Immature Granulocytes % 0.8 % (0-4); Lymphocytes # 1.1 K/mcL (0.6-4.6); Lymphocytes % 21.3 %; Mean Corpuscular HGB Conc 28.1 g/dL (31.6-35.5); Mean Corpuscular Hemoglobin 24.5 pg (28.0-33.3); Mean Corpuscular Volume 87.2 fL (83.0-100.0); Mean Platelet Volume 11.4 fL (9.4-12.4); Monocytes # 0.6 K/mcL (0.0-1.3); Monocytes % 12.4 %; Neutrophils # 3.2 K/mcL (1.6-8.9); Platelet Count 197 K/mcL (140-400); Red Blood Count 4.13 M/mcL (3.82-4.97); Red Cell Distribution Width 16.7 % (11.5-14.5); Segmented Neutrophils % 63.3 %
[2017-09-05 15:04] LABS: Anisocytosis 1+ (Not Present); Hypochromasia Present (Not Present); Platelet Estimate Normal (Normal)
--- NOTE | 2017-09-05 15:05 | Emergency Department Note ---
START Narrative - START START: I examined this patient and my medical decision-making was reviewed with the Resident Physician. I agree with the documented findings, disposition and treatment plan as described except to the extent set forth below. 66 yo F here for rapid heart rate. found to be in A fib at home. feels like its been like this since yesterday. on coumadin and rhythmol and cardizem. no chest pain. compliant with meds. HR has been trying to come down here in the ER. we've ordered cardizem gtt. pt states she sometimes has to be cardioverted for this a fib with rvr. possible admission if dr manriquez feels she needs to come in
[2017-09-05 15:08] LABS: INR 2.1; Prothrombin Time 22.8 Seconds (9.4-12.1)
[2017-09-05 15:17] LABS: BUN/Creatinine Ratio 31 (6-26); Blood Urea Nitrogen 26 mg/dL (8-23); Calcium 9.4 mg/dL (8.6-10.3); Carbon Dioxide 38 mEq/L (23-29); Chloride 101 mEq/L (98-107); Glucose 86 mg/dL (70-105); Osmolality,Calculated 296 (280-300); Potassium 4.2 mEq/L (3.5-5.1); Sodium 141 mEq/L (136-145); eGFR For African Americans > 60 (> 60); eGFR For Non-African Americans > 60 (> 60)
--- NOTE | 2017-09-05 17:29 | Internal Med History&Physical ---
Date of Encounter: 09/05/17 Time of Encounter: 17:23 Assessment and Plan (1) Obesity Current visit: Yes Status: Chronic Qualifiers: Obesity type: due to excess calories Obesity classification: adult class 2 (BMI 35 - 39.9) Serious obesity comorbidity presence: unspecified whether serious comorbidity present Body mass index: unspecified BMI Qualified Code( s): E66.09 - Other obesity due to excess calories (2) Atrial fibrillation with rapid ventricular response Current visit: No Status: Acute After favoritism control resume home medication patient will be seen by cardiology tomorrow (3) Chronic anticoagulation Current visit: No Status: Chronic Continue Coumadin INR is therapeutic (4) Essential hypertension Current visit: No Status: Chronic Chronic and well controlled (5) Hypertension Current visit: No Status: Chronic Qualifiers: Hypertension type: essential hypertension Qualified Code(s): I10 - Essential (primary) hypertension (6) Hypothyroid Current visit: No Status: Chronic Chronic TSH is within normal limits Qualifiers: Hypothyroidism type: acquired Qualified Code(s): E03.9 - Hypothyroidism, unspecified Internal Medicine - H&P: HPI Chief complaint: atrial fib Admitted From: Emergency Dept Plans for Post Hospital Care: Home History of present illness: Ms. Guevara is a 66 year old female Patient with history of atrial fibrillation, COPD, hypertension, high cholesterol, GERD, morbid obesity. She has been on Rythmol and Cardizem she takes her medication like she is supposed to But yesterday morning developed palpitation and being continued today and then comes to the emergency room was in atrial fibrillation rate about 130 no chest pain no shortness of breath just palpitation she was given IV Lopressor heart rate came down to about 90 ER physician spoke with Dr[address] White cardiology and they will see patient in consultation. Past Med Surg Social Fam HX - Past Medical History Medical history: asthma, atrial fibrillation, COPD, GERD, hypertension, migraine Psychiatric history: no psych history - Past Surgical History Surgical History: cholecystectomy, hysterectomy - Social History Smoking Status: Never smoker Smokeless Tobacco Status: No Alcohol use: none Drug use: none - Family History Sister Living Status: Hx Family Cardiac Disorders: Yes Hx Family Respiratory Disorders: Yes (copd) Mother Adopted: No Family Member Ethnicity: Non- Twin of Family Member: Yes, Fraternal Living Status: Hx Family Cardiac Disorders: Yes (HTN) Hx Family Respiratory Disorders: No Hx Family Cancer: Yes (Melanoma) Hx Family GI Disorders: Yes (Constipation) Hx Family Endocrine Disorder: No Hx Family Neuromuscular Disorders: No Hx Family Neurologic Disorders: No Hx Family HEENT Disorders: No Hx Family Autoimmune Disorders: No Father Adopted: No Family Member Ethnicity: Non- Twin of Family Member: Yes, Fraternal Living Status: Hx Family Cardiac Disorders: Yes (Thrombosis) Hx Family Respiratory Disorders: Yes (self,sister) Hx Family Cancer: No Hx Family GI Disorders: Yes (self) Hx Family Endocrine Disorder: No Hx Family Neuromuscular Disorders: No Hx Family Neurologic Disorders: No Hx Family HEENT Disorders: No Hx Family Autoimmune Disorders: No Internal Medicine - H&P: Meds Alendronate Sodium [Fosamax] 70 mg PO WE 10/28/15 [History] Ascorbate Calcium [Vitamin C] 500 mg PO DAILY 10/28/15 [History] Cholecalciferol (Vitamin D3) [Vitamin D3] 5,000 unit PO DAILY 10/28/15 [History] Cyanocobalamin (Vitamin B-12) [Vitamin B-12] 100 mcg PO DAILY 10/28/15 [History] Tiotropium [Spiriva] 18 mcg IH HS 10/28/15 [History] Warfarin [Coumadin] 5 mg PO DAILY 10/28/15 [History] Dexlansoprazole [Dexilant] 60 mg PO DAILY 07/03/16 [History] Ferrous Sulfate [Iron] 325 mg PO DAILY 07/03/16 [History] Albuterol Sulfate [Proventil Hfa] 2 puff IH Q4H PRN 09/14/16 [History] Oxygen 3 l IH AD 10/24/16 [History] Fluticasone/Salmeterol [Advair 250-50 Diskus] 1 puff IH BID #1 blst.w.dev [Rx] Montelukast [Singulair] 10 mg PO DAILY 11/29/16 [History] Ropinirole HCl [Requip] 2 mg PO HS 11/29/16 [History] Magnesium Oxide [Mag-Ox] 400 mg PO DAILY #30 tablet 12/04/16 [Rx] Furosemide [Lasix] 20 mg PO BID #60 01/11/17 [Rx] Calcium Carbonate [Calcium] 600 mg PO BID 05/08/17 [History] Fluorometholone [Fml Forte] 1 drop LEFT EYE QID 05/08/17 [History] Lisinopril [Zestril] 2.5 mg PO BID 05/08/17 [History] Diltiazem CD (24hr) [Cardizem CD] 120 mg PO DAILY cap.er.24h 05/21/17 [Rx] Acetaminophen/Diphenhydramine [Percogesic 325-12.5 mg Tablet] 1 - 2 tab PO HS PRN 07/19/17 [History] Spironolactone [Aldactone] 50 mg PO DAILY 07/19/17 [History] Propafenone HCl [Propafenone HCl ER] 225 mg PO Q12H 07/20/17 [History] Albuterol Neb [Proventil Neb] 2.5 mg IH Q4H PRN #30 inhsol 07/23/17 [Rx] DiphenhydraMINE [Benadryl] 25 mg PO HS PRN capsule 07/23/17 [Rx] 3 Allergy/AdvReac Type Severity Reaction Status Date / Time aspirin [ASA] Allergy Difficulty Verified 09/05/17 14:28 Breathing Penicillins Allergy Hives Verified 09/05/17 14:28 Sulfa (Sulfonamide Allergy Rash Verified 09/05/17 14:28 Antibiotics) All Systems PM: A 10-system review of systems was performed and is negative for pertinent findings except as documented above in the HPI. - EENT Eyes: no change in vision, no discharge, no pain, no photophobia Ears: no ear discharge, no ear pain, no tinnitus Nose, mouth and throat: no dysphagia, no nasal discharge, no neck pain, no sore throat - Cardiovascular Cardiovascular ROS IM: palpitations - Respiratory Respiratory: no cough, no dyspnea, no wheezing, no excessive phlegm production - Gastrointestinal Gastrointestinal: no abdominal pain, no diarrhea, no hematemesis, no hematochezia, no melena, no nausea, no vomiting - Genitourinary Genitourinary: no change in urinary stream, no dysuria, no flank pain, no hematuria - Constitutional Vitals: Temp Pulse Resp BP Pulse Ox 97.8 F 94 18 126/67 97 09/05/17 14:24 09/05/17 16:58 09/05/17 16:58 09/05/17 16:58 09/05/17 16:58 - Eye Eye exam: Present: PERRL, conjuntiva pink, sclera anicteric Pupils: Present: PERRL - Neck Neck exam general surgery: Present: supple, trachea midline. Absent: lymphadenopathy - Respiratory Respiratory exam: Present: decreased breath sounds - Cardiovascular Cardiovascular exam: Present: irregular rhythm, systolic murmur - GI/Abdominal GI/Abdominal exam: Present: normal bowel sounds, soft, no peritoneal signs. Absent: distended, tenderness Internal Med - H&P Results - Labs CBC & Chem 7: 09/05/17 14:54 09/05/17 14:54
[2017-09-05] MEDS ORDERED: Naloxone 0.4 MG/ML INJ IVP PRN (17:33)
[2017-09-05] MEDS ORDERED: NON-FORMULARY MEDICATION 1 EACH EACH (Alendronate Sodium [Fosamax] 70 MG) PO SCH (17:45)
[2017-09-05] MEDS ORDERED: PROPAFENONE HCL 225 MG PO SCH (17:45)
[2017-09-05] MEDS: Budesonide/Formoterol 80/4.5 MDI IH SCH (20:47)
[2017-09-05] MEDS ORDERED: SPIRIVA RESPIMAT 2.5 MCG/ACTUATION IH SCH (21:00)
[2017-09-05] MEDS: rOPINIRole 1 MG TABLET PO SCH (22:25)
[2017-09-05] MEDS: Fluorometholone OPTH 5 ML BOTTLE LEFT EYE SCH (22:25)
[2017-09-06 00:38] LABS: Basophils % 0.4 %; Hemoglobin 9.7 g/dL (11.5-15.4); Immature Granulocytes % 0.9 % (0-4); Lymphocytes % 22.3 %
[2017-09-06 00:39] LABS: Eosinophils # 0.2 K/mcL (0.0-0.6); Eosinophils % 2.7 %; Hematocrit 33.9 % (35.3-44.9); Lymphocytes # 1.2 K/mcL (0.6-4.6); Mean Corpuscular HGB Conc 28.6 g/dL (31.6-35.5); Mean Corpuscular Hemoglobin 24.8 pg (28.0-33.3); Mean Corpuscular Volume 86.7 fL (83.0-100.0); Mean Platelet Volume 11.6 fL (9.4-12.4); Monocytes # 0.7 K/mcL (0.0-1.3); Monocytes % 12.5 %; Neutrophils # 3.4 K/mcL (1.6-8.9); Platelet Count 187 K/mcL (140-400); Red Blood Count 3.91 M/mcL (3.82-4.97); Segmented Neutrophils % 61.2 %
[2017-09-06 01:36] LABS: Anisocytosis 1+ (Not Present); Platelet Estimate Normal (Normal)
[2017-09-06 01:37] LABS: Microcytosis Present (Not Present)
[2017-09-06 02:04] LABS: Chol/HDL Ratio 2.2 (0-4.9); Magnesium 1.8 mg/dL (1.6-2.6)
[2017-09-06] MEDS: Magnesium Oxide 400 MG TABLET PO SCH (08:43)
[2017-09-06] MEDS: Ascorbic Acid 500 MG TABLET PO SCH (08:44)
[2017-09-06] MEDS: Cyanocobalamin (B-12) 1,000 MCG TABLET PO SCH (08:45)
[2017-09-06] MEDS: Cholecalciferol (D-3) 1,000 UNIT TABLET PO SCH (08:45)
[2017-09-06] MEDS: Fluorometholone OPTH 5 ML BOTTLE LEFT EYE SCH ×4 (08:46→21:53)
[2017-09-06 08:55] LABS: INR 1.8; Prothrombin Time 20.1 Seconds (9.4-12.1)
[2017-09-06] MEDS ORDERED: Diltiazem CD (24hr) 120 MG CAPSULE PO SCH (09:00)
[2017-09-06] MEDS ORDERED: PROPAFENONE HCL 225 MG PO SCH (09:30)
[2017-09-06] MEDS: Budesonide/Formoterol 80/4.5 MDI IH SCH ×2 (10:48→20:15)
--- NOTE | 2017-09-06 11:32 | Electrophysiology Consult Note ---
<Jose Enrique Garcia - Last Filed: 09/06/17 15:05> Date of Encounter: 09/06/17 Time of Encounter: 11:30 Assessment and Plan (1) Atrial fibrillation with RVR Current Visit: Yes Status: Acute Per EP: Multiple hospitalizations over the past year. Hx failed sotalol therapy. Medical records reviewed and patient was on Rythmol 225 mg by mouth every 8 hours; appears switched to Rythmol sustained release 225 mg by mouth every 12 hours in outpatient setting. Presented with breakthrough A. fib with RVR again. Magnesium and TSH stable. Trops negative x 4. Currently A. fib in the 90s to 110s on Cardizem drip. Currently not on home dose of Cardizem CD 180 mg by mouth daily. We'll start Cardizem 60 mg by mouth every 6 hours and attempt to wean off IV Cardizem drip to keep heart rate less than 100 bpm. Systolic blood pressure in the 120s. Discussed and reviewed with Dr. Aj Virk, will discontinue Rythmol sustained release 225 mg by mouth every 12 hours and initiate Rythmol 225 mg by mouth every 8 hours with first dose tonight at 9 PM. Nothing by mouth after midnight for possible ZOILA/DC cardioversion tomorrow. INR today noted at 1.8. Takes Coumadin at home for long-term anticoagulation. This will be a be a net increase in Rythmol dose-- when switched from short-acting to long-acting in outpatient setting a few moths ago, this in essence became a net decrease in total dose. (2) Chronic anticoagulation Current Visit: No Status: Chronic Per EP: On Coumadin. Discussion w patient/family: The assessment and plan as outlined above was discussed with the patient and/or family members who expressed understanding and agreement. All questions were answered. Thank you for involving us in the care of your patient. Please call with any questions. History of Present Illness Consult date: 09/06/17 Requesting physician: Ken Nguyen Consult reason: Afib RVR Chief complaint: Rapid HR History of present illness: Ms. Guevara is a 66 year old female with a relevant past medical history of paroxysmal atrial fibrillation on Rythmol and Coumadin, obesity, COPD, asthma, GERD, hypertension, past history of nicotine abuse. Cardiology consult for A. fib with RVR. Patient seen with family at bedside. Reports recently discharged about 2 weeks ago for a weeklong stay with for COPD exacerbation and reports now cardiology consult required at that time. She reports over the past few days has actually felt the best she is felt in quite a while. She reports compliance with medications. She reports about 3 AM history evening she awakened with A. fib with RVR with chest heaviness, shortness of breath, palpitations, rapid heart rate. She reports symptoms have now improved. She denies any active bleeding or blood loss. Reports pending outpatient setup for home CPAP for sleep apnea, however has not been able to be completed due to multiple hospitalizations. Patient denies any recent fever, chills, nausea, vomiting, diarrhea, cough. Denies any dizziness, syncope, falls. Denies any active bleeding or blood loss. Past Med Surg Social Fam HX - Past Medical History Attestation: Yes The following information was validated with the patient. Source: patient, old records reviewed, obtained from family Medical history: asthma, atrial fibrillation, COPD, GERD, hypertension, migraine Psychiatric history: no psych history - Past Surgical History Surgical History: cholecystectomy, hysterectomy - Social History Smoking Status: Never smoker Smokeless Tobacco Status: No Alcohol use: none Drug use: none - Family History Sister Living Status: Hx Family Cardiac Disorders: Yes Hx Family Respiratory Disorders: Yes (copd) Mother Adopted: No Family Member Ethnicity: Non- Twin of Family Member: Yes, Fraternal Living Status: Age at : 85 Hx Family Cardiac Disorders: No Hx Family Respiratory Disorders: No Hx Family Cancer: No Hx Family GI Disorders: No Hx Family Genitourinary Disorders: No Hx Family Endocrine Disorder: No Hx Family Musculoskeletal Disorders: No Hx Family Neuromuscular Disorders: No Hx Family Neurologic Disorders: No Hx Family HEENT Disorders: No Hx Family Autoimmune Disorders: No Hx Family Reproductive Disorders: No Hx Family Psychosocial Disorders: No Hx Family Medical Disorders: No Father Adopted: No Family Member Ethnicity: Non- Twin of Family Member: Yes, Fraternal Living Status: Age at : 47 Hx Family Cardiac Disorders: Yes Hx Family Respiratory Disorders: No Hx Family Cancer: No Hx Family GI Disorders: No Hx Family Genitourinary Disorders: No Hx Family Endocrine Disorder: No Hx Family Musculoskeletal Disorders: No Hx Family Neuromuscular Disorders: No Hx Family Neurologic Disorders: No Hx Family HEENT Disorders: No Hx Family Autoimmune Disorders: No Hx Family Reproductive Disorders: No Hx Family Psychosocial Disorders: No Hx Family Medical Disorders: No Medications and Allergies Alendronate Sodium [Fosamax] 70 mg PO WE 10/28/15 [History] Ascorbate Calcium [Vitamin C] 500 mg PO DAILY 10/28/15 [History] Cholecalciferol (Vitamin D3) [Vitamin D3] 5,000 unit PO DAILY 10/28/15 [History] Cyanocobalamin (Vitamin B-12) [Vitamin B-12] 100 mcg PO DAILY 10/28/15 [History] Tiotropium [Spiriva] 18 mcg IH HS 10/28/15 [History] Warfarin [Coumadin] 5 mg PO DAILY 10/28/15 [History] Dexlansoprazole [Dexilant] 60 mg PO DAILY 07/03/16 [History] Ferrous Sulfate [Iron] 325 mg PO DAILY 07/03/16 [History] Albuterol Sulfate [Proventil Hfa] 2 puff IH Q4H PRN 09/14/16 [History] Oxygen 3 l IH AD 10/24/16 [History] Fluticasone/Salmeterol [Advair 250-50 Diskus] 1 puff IH BID #1 blst.w.dev [Rx] Montelukast [Singulair] 10 mg PO DAILY 11/29/16 [History] Ropinirole HCl [Requip] 2 mg PO HS 11/29/16 [History] Magnesium Oxide [Mag-Ox] 400 mg PO DAILY #30 tablet 12/04/16 [Rx] Furosemide [Lasix] 20 mg PO BID #60 01/11/17 [Rx] Calcium Carbonate [Calcium] 600 mg PO BID 05/08/17 [History] Fluorometholone [Fml Forte] 1 drop LEFT EYE QID 05/08/17 [History] Lisinopril [Zestril] 2.5 mg PO BID 05/08/17 [History] Diltiazem CD (24hr) [Cardizem CD] 120 mg PO DAILY cap.er.24h 05/21/17 [Rx] Acetaminophen/Diphenhydramine [Percogesic 325-12.5 mg Tablet] 1 - 2 tab PO HS PRN 07/19/17 [History] Spironolactone [Aldactone] 50 mg PO DAILY 07/19/17 [History] Propafenone HCl [Propafenone HCl ER] 225 mg PO Q12H 07/20/17 [History] Albuterol Neb [Proventil Neb] 2.5 mg IH Q4H PRN #30 inhsol 07/23/17 [Rx] DiphenhydraMINE [Benadryl] 25 mg PO HS PRN capsule 07/23/17 [Rx] 3 Allergy/AdvReac Type Severity Reaction Status Date / Time aspirin [ASA] Allergy Difficulty Verified 09/05/17 14:28 Breathing Penicillins Allergy Hives Verified 09/05/17 14:28 Sulfa (Sulfonamide Allergy Rash Verified 09/05/17 14:28 Antibiotics) All Systems Review: A 10-system review of systems was performed and is negative for pertinent findings except as documented above in the HPI. - Cardiovascular Cardiovascular: as per HPI, chest pain at rest, dyspnea at rest, irregular heart rhythm, palpitations, rapid heart rate Physical Examination Vital Signs, Last 4 Hours Temp Resp BP Pulse Ox 09/06/17 08:39 98.0 F 17 121/66 97 General: Conversant, No Apparent Distress HEENT: Atraumatic, Normocephaly, Mucus Membranes Moist Neck: No JVD, Normal carotid pulses Cardiac: No Murmur, Other (irregularly irregular) Lungs: Normal Breath Sounds, No Wheeze, Rales, Rhonchi Neuro: Alert and responsive, No focal deficits noted Abdomen: Soft, Non-Tender, Other (obese) Skin: No rashes noted on visualized skin Musculoskeletal: No Chest Wall Tenderness Extremities: No Clubbing, No Cyanosis, Normal Pulses, Other (+1-2 nonpitting) Results 09/06/17 00:17 09/05/17 14:54 Lab Results Laboratory Tests 09/05/17 09/05/17 09/05/17 14:54 14:54 14:54 INR 2.1 Magnesium Troponin I < 0.03 LDL Cholesterol, Calc TSH 2.930 09/05/17 09/06/17 09/06/17 18:24 00:17 00:17 INR Magnesium 1.8 Troponin I < 0.03 < 0.03 LDL Cholesterol, Calc 41 TSH 09/06/17 09/06/17 06:04 08:35 INR 1.8 Magnesium Troponin I < 0.03 LDL Cholesterol, Calc TSH ITS Impressions Chest X-Ray 09/05/17 14:40 IMPRESSION: No acute cardiopulmonary disease D/ / John Zimmerman MD / John Zimmerman MD Interpreting Provider: John Zimmerman MD Active Medications Albuterol Sulfate (Albuterol Inhaler) 2 puff IH Q4H PRN PRN Reason: Dyspnea Stop: 03/07/18 17:38 Ascorbic Acid (Vitamin C) 500 mg PO DAILY TIM Stop: 03/08/18 09:01 Last Admin: 09/06/17 08:44 Dose: 500 mg Budesonide/Formoterol Fumarate (Symbicort) 1 puff IH BIDR TIM Stop: 03/07/18 22:01 Last Admin: 09/06/17 10:48 Dose: Not Given Calcium Carbonate (Tums) 500 mg PO BID TIM Stop: 03/07/18 21:01 Last Admin: 09/06/17 08:43 Dose: 500 mg Cyanocobalamin (Vitamin B12) 1,000 mcg PO DAILY TIM Stop: 03/08/18 09:01 Last Admin: 09/06/17 08:45 Dose: 1,000 mcg Diphenhydramine HCl (Benadryl) 25 mg PO HS PRN PRN Reason: Sleep Stop: 03/07/18 17:38 Last Admin: 09/05/17 22:25 Dose: 25 mg Ferrous Sulfate (Ferrous Sulfate) 325 mg PO DAILY@0800 TIM Stop: 03/08/18 08:09 Fluorometholone (Fml) 1 drop LEFT EYE QID TIM Stop: 03/07/18 21:01 Last Admin: 09/06/17 08:46 Dose: Not Given Furosemide (Lasix) 20 mg PO BID TIM Stop: 03/08/18 11:46 Diltiazem HCl 125 mg/ Sodium (Chloride) 125 mls @ 5 mls/hr IVC .Q24H TIM; 5 MG/ HR PRN Reason: Protocol Stop: 03/07/18 16:46 Last Titration: 09/06/17 11:34 Dose: 12.5 mg/hr, 12.5 mls/hr Lisinopril (Zestril) 2.5 mg PO BID TIM PRN Reason: Protocol Stop: 03/07/18 21:01 Last Admin: 09/06/17 08:44 Dose: 2.5 mg Magnesium Oxide (Mag-Ox) 400 mg PO DAILY TIM PRN Reason: Protocol Stop: 03/08/18 09:01 Last Admin: 09/06/17 08:43 Dose: 400 mg Montelukast Sodium (Singulair) 10 mg PO DAILY TIM Stop: 03/08/18 09:01 Last Admin: 09/06/17 08:45 Dose: 10 mg Naloxone HCl (Narcan) 0.4 mg IVP Q2MIN PRN PRN Reason: SEE COMMENTS Stop: 03/07/18 17:34 Omeprazole (Prilosec) 40 mg PO DAILY [facility] Stop: 03/08/18 09:01 Last Admin: 09/06/17 08:45 Dose: 40 mg Pharmacy Profile Note (Patient Taking Own Medication) 2 each IH HS [facility] Stop: 03/07/18 21:01 Last Admin: 09/05/17 20:49 Dose: 2 each Pharmacy Profile Note (Patient Taking Own Medication) 1 each PO 0930,2130 TIM Stop: 03/07/18 17:46 Last Admin: 09/06/17 08:47 Dose: 1 each Ropinirole HCl (Requip) 2 mg PO HS [facility] Stop: 03/07/18 21:01 Last Admin: 09/05/17 22:25 Dose: 2 mg Spironolactone (Aldactone) 50 mg PO DAILY [facility] Stop: 03/08/18 09:01 Last Admin: 09/06/17 08:44 Dose: 50 mg Vitamin D (Vitamin D) 1,000 unit PO DAILY TIM Stop: 03/08/18 09:01 Last Admin: 09/06/17 08:45 Dose: 1,000 unit Warfarin Sodium (Coumadin) 5 mg PO 1800 [facility] Stop: 03/08/18 18:01 Warfarin Sodium (Coumadin Perpt) 0 each PO DAILY@1800 PRN PRN Reason: SEE COMMENTS Stop: 03/08/18 18:01 - Imaging and Cardiology Echo: report reviewed - EKG Interpretation EKG results cardiology: personally reviewed (A. fib with RVR in the 100s, QRS 81 ms), other (Tele shows afib avg HR past 12 hrs 105, currentlty afib 90-110's) Consult Discharge Plan - Plan Referrals: Lisbet Ray, PHARMACOGNOSY TEACHER [Primary Care Provider] - <Aj Virk Jamie - Last Filed: 09/07/17 10:52> Date of Encounter: 09/07/17 - Attending Attestation I have personally performed a face to face evaluation on this patient. I have reviewed and agree with the care plan. History and Exam by me shows: Recurrent PAF. Much confusion about the dose of rythmol. Will increase to 225 Q8H. Assessment and Plan Discussion w patient/family: The assessment and plan as outlined above was discussed with the patient and/or family members who expressed understanding and agreement. All questions were answered. Thank you for involving us in the care of your patient. Please call with any questions. History of Present Illness History of present illness: Ms. Guevara is a 66 year old female All Systems Review: A 10-system review of systems was performed and is negative for pertinent findings except as documented above in the HPI. Physical Examination Vital Signs, Last 4 Hours Temp Pulse Resp BP Pulse Ox 09/07/17 10:30 97.8 F 93 20 129/76 93 09/07/17 08:33 82 16 114/64 Results 09/07/17 05:36 09/07/17 05:36 Lab Results 09/07/17 09/07/17 09/07/17 05:36 05:36 05:36 WBC 5.0 Hgb 9.1 L Hct 32.2 L Plt Count 196 INR 1.5 Sodium 142 Potassium 4.2 Chloride 103 Carbon Dioxide 35 H BUN 30 H Creatinine 0.81 Glucose 110 H Calcium 9.0 Magnesium 2.0
--- NOTE | 2017-09-06 11:38 | Internal Med Progress Note ---
Date of Encounter: 09/06/17 Time of Encounter: 10:55 - Assessment and plan (1) Atrial fibrillation with RVR Current Visit: Yes Status: Acute Assessment and plan: Pt reports of being compliant with her home meds (Rhythmol and Cardizem) Currently on cardizem gtt anticoagulated with coumadin Pharmacist to dose coumadin monitor INR, goal INR: 2-3 awaiting cardiology evaluation (2) Chronic kidney disease Current Visit: No Status: Chronic Assessment and plan: Renal function at baseline continue to monitor Qualifiers: Chronic kidney disease stage: stage 2 (mild) Qualified Code(s): N18.2 - Chronic kidney disease, stage 2 (mild) (3) Diastolic CHF Current Visit: No Status: Chronic Assessment and plan: no signs of CHF decompensation noted to have trace pedal edema, will restart home dose of Lasix fluid restriction diet monitor daily weights I/Os Qualifiers: Congestive heart failure chronicity: acute on chronic Qualified Code(s): I50.33 - Acute on chronic diastolic (congestive) heart failure (4) Hypertension Current Visit: No Status: Chronic Assessment and plan: BP within acceptable range continue home meds Qualifiers: Hypertension type: essential hypertension Qualified Code(s): I10 - Essential (primary) hypertension (5) Morbid obesity with BMI of 50.0-59.9, adult Current Visit: Yes Status: Chronic (6) DVT prophylaxis Current Visit: No Status: Acute Assessment and plan: on Coumadin - Subjective Interval history: Patient seen and examined with family present at bedside. Pt resting in bed and reports of feeling better since hospitalization. Still continues to have palpitations with HR in 110s. Currently on cardizem gtt, will titrate dose to maintain HR<100. Denies shortness of breath or chest pain. - Constitutional Vitals: Temp Pulse Resp BP Pulse Ox 98.0 F 94 17 121/66 97 09/06/17 08:39 09/06/17 04:12 09/06/17 08:39 09/06/17 08:39 09/06/17 08:39 General appearance: Present: A&O X 3, morbidly obese, no acute distress, answers questions appropriately - Head Head exam: Present: atraumatic, normocephalic - Eye Eye exam: Present: conjuntiva pink, sclera anicteric - Respiratory Respiratory exam: Present: CTAB. Absent: respiratory distress, wheezes - Cardiovascular Cardiovascular exam: Present: irregular rhythm, +S1, +S2, tachycardia - GI/Abdominal GI/Abdominal exam: Present: normal bowel sounds, soft, no peritoneal signs. Absent: distended, tenderness - Extremities Exam Extremities exam: Present: pedal edema (trace pedal edema in bilateral LE ), warm, radial pulses palpable and symmetrical. Absent: calf tenderness, cyanotic - Neurological Exam Neurological exam: Present: alert, oriented X3 - Psychiatric Psychiatric exam: Present: normal affect, normal mood Internal Medicine: Result - Labs CBC & Chem 7: 09/06/17 00:17 09/05/17 14:54 Labs: Short CBC 09/06/17 Range/Units 00:17 WBC 5.5 (4.3-11.1) K/mcL Hgb 9.7 L (11.5-15.4) g/dL Hct 33.9 L (35.3-44.9) % Plt Count 187 (140-400) K/mcL Neutrophils # 3.4 (1.6-8.9) K/mcL Cardiac Enzymes 09/05/17 09/06/17 09/06/17 Range/Units 18:24 00:17 06:04 Troponin I < 0.03 < 0.03 < 0.03 (< 0.04) ng/mL - ABG Interpretation ABG results: PT/INR, D-dimer PT 20.1 Seconds (9.4-12.1) H 09/06/17 08:35 Consult Discharge Plan - Plan Referrals: Lisbet Ray CNP [Primary Care Provider] -
[2017-09-06] MEDS: Furosemide 40 MG TABLET PO SCH ×2 (12:14→21:53)
--- NOTE | 2017-09-06 17:14 | Electrocardiograph Report ---
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
--- NOTE | 2017-09-06 17:14 | Electrocardiograph Report ---
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
[2017-09-06] MEDS ORDERED: Warfarin perPT PO PRN (18:00)
[2017-09-06] MEDS ORDERED: *HR* Warfarin 5 MG TABLET PO SCH (18:00)
[2017-09-06] MEDS: rOPINIRole 1 MG TABLET PO SCH (21:53)
[2017-09-07 06:29] LABS: Hemoglobin 9.1 g/dL (11.5-15.4)
[2017-09-07 06:31] LABS: Basophils % 0.6 %; Eosinophils # 0.1 K/mcL (0.0-0.6); Eosinophils % 2.8 %; Hematocrit 32.2 % (35.3-44.9); Lymphocytes # 1.4 K/mcL (0.6-4.6); Lymphocytes % 27.2 %; Mean Corpuscular HGB Conc 28.3 g/dL (31.6-35.5); Mean Corpuscular Hemoglobin 24.5 pg (28.0-33.3); Mean Corpuscular Volume 86.6 fL (83.0-100.0); Mean Platelet Volume 11.9 fL (9.4-12.4); Monocytes # 0.6 K/mcL (0.0-1.3); Monocytes % 11.3 %; Neutrophils # 2.9 K/mcL (1.6-8.9); Platelet Count 196 K/mcL (140-400); Red Blood Count 3.72 M/mcL (3.82-4.97); Red Cell Distribution Width 16.7 % (11.5-14.5); Segmented Neutrophils % 57.1 %
[2017-09-07 06:41] LABS: INR 1.5; Prothrombin Time 16.6 Seconds (9.4-12.1)
[2017-09-07 06:52] LABS: Hypochromasia Present (Not Present); Platelet Estimate Normal (Normal)
[2017-09-07 07:00] LABS: BUN/Creatinine Ratio 37 (6-26); Blood Urea Nitrogen 30 mg/dL (8-23); Carbon Dioxide 35 mEq/L (23-29); Chloride 103 mEq/L (98-107); Glucose 110 mg/dL (70-105); Osmolality,Calculated 301 (280-300); Phosphorous 3.7 mg/dL (2.7-4.5); Potassium 4.2 mEq/L (3.5-5.1); Sodium 142 mEq/L (136-145); eGFR For African Americans > 60 (> 60); eGFR For Non-African Americans > 60 (> 60)
[2017-09-07] MEDS: Fluorometholone OPTH 5 ML BOTTLE LEFT EYE SCH ×3 (08:33→18:10)
[2017-09-07] MEDS: Cholecalciferol (D-3) 1,000 UNIT TABLET PO SCH (08:34)
[2017-09-07] MEDS: Furosemide 40 MG TABLET PO SCH (08:34)
[2017-09-07] MEDS: Magnesium Oxide 400 MG TABLET PO SCH (08:34)
[2017-09-07] MEDS: Cyanocobalamin (B-12) 1,000 MCG TABLET PO SCH (08:35)
[2017-09-07] MEDS: Ascorbic Acid 500 MG TABLET PO SCH (08:35)
--- NOTE | 2017-09-07 09:21 | Event Note ---
Date of Encounter: 09/07/17 Time of Encounter: 09:18 - Cardiology Event Note Mrs. Guevara remains in atrial fibrillation with RVR. Will proceed with ZOILA/DCCV as planned. Discussed indications, risk, and benefit of procedure and patient agrees. All questions answered. S/p 2 doses of rythmol. EKG this am shows atrial fibrillation, HR 83. QT/QTc 358/398, QRS 88. HR 80's on telemetry.
[2017-09-07] MEDS ORDERED: Lidocaine Viscous Oral Soln 15 ML SOLUTION MM PRN (10:25)
[2017-09-07] MEDS ORDERED: 0.9 % Sodium Chloride 500 ML IVC ONE (10:28)
[2017-09-07] MEDS ORDERED: Tetracaine/Benzocaine/Butamben 200MG/SPRAY (100SPY/BOT) MM ONE (10:28)
[2017-09-07] MEDS ORDERED: *HR* Enoxaparin 150 MG/ML SYRINGE SQ SCH (10:55)
[2017-09-07] MEDS: *HR* Midazolam HCl 5 MG/5 ML VIAL IVP PRN ×2 (11:05→11:12)
[2017-09-07] MEDS: *HR* FentaNYL (PF) 100 MCG/2 ML VIAL IVP PRN ×2 (11:05→11:10)
[2017-09-07] MEDS ORDERED: Warfarin perPT PO PRN (11:45)
--- NOTE | 2017-09-07 13:42 | Event Note ---
Date of Encounter: 09/07/17 Time of Encounter: 13:40 - Cardiology Event Note S/p successful ZOILA/ DCCV with one 250 J shock. Now NSR. As discussed with Dr. Virk, continue rythmol 225 mg every 8 hours. Increase home dose cardizem CD to 240 mg daily and d/c IV gtt. Recommend bridging coumadin due to DCCV. Ok to discharge from cardiology standpoint. Call with questions. Out-pt f/u will be made.
--- NOTE | 2017-09-07 14:31 | Internal Med Progress Note ---
Date of Encounter: 09/07/17 Time of Encounter: 13:45 - Assessment and plan (1) Atrial fibrillation with RVR Current Visit: Yes Status: Acute Assessment and plan: s/p ZOILA/Cardioversion Continue Rhythmol and increased cardizem dose noted to have subtherapeutic INR as per cardio recommendation, will continue bridging coumadin with Lovenox Pharmacist to dose coumadin monitor INR, goal INR: 2-3 cardiology evaluation appreciated (2) Chronic kidney disease Current Visit: No Status: Chronic Assessment and plan: Renal function at baseline continue to monitor Qualifiers: Chronic kidney disease stage: stage 2 (mild) Qualified Code(s): N18.2 - Chronic kidney disease, stage 2 (mild) (3) Diastolic CHF Current Visit: No Status: Chronic Assessment and plan: no signs of CHF decompensation continue home dose of Lasix fluid restriction diet monitor daily weights I/Os Qualifiers: Congestive heart failure chronicity: acute on chronic Qualified Code(s): I50.33 - Acute on chronic diastolic (congestive) heart failure (4) Hypertension Current Visit: No Status: Chronic Assessment and plan: BP within acceptable range continue home meds Qualifiers: Hypertension type: essential hypertension Qualified Code(s): I10 - Essential (primary) hypertension (5) Morbid obesity with BMI of 50.0-59.9, adult Current Visit: Yes Status: Chronic (6) DVT prophylaxis Current Visit: No Status: Acute Assessment and plan: on Coumadin - Subjective Interval history: Patient seen and examined at bedside. Pt reports of being tired. s/p cardioversion Started on Lovenox SQ bridging given subtherapeutic INR will monitor overnight and bridge coumadin with lovenox - Constitutional Vitals: Temp Pulse Resp BP Pulse Ox 97.8 F 93 20 129/76 93 09/07/17 10:30 09/07/17 10:30 09/07/17 10:30 09/07/17 10:30 09/07/17 10:30 General appearance: Present: A&O X 3, morbidly obese, no acute distress, answers questions appropriately - Head Head exam: Present: atraumatic, normocephalic - Eye Eye exam: Present: conjuntiva pink, sclera anicteric - Respiratory Respiratory exam: Present: CTAB. Absent: respiratory distress, wheezes - Cardiovascular Cardiovascular exam: Present: RRR, +S1, +S2. Absent: diastolic murmur, gallop, rubs, systolic murmur - GI/Abdominal GI/Abdominal exam: Present: normal bowel sounds, soft, no peritoneal signs. Absent: distended, tenderness - Extremities Exam Extremities exam: Present: pedal edema (trace pedal edema bilaterally ), warm, radial pulses palpable and symmetrical. Absent: calf tenderness - Neurological Exam Neurological exam: Present: alert, oriented X3 - Psychiatric Psychiatric exam: Present: normal affect, normal mood Internal Medicine: Result - Labs CBC & Chem 7: 09/07/17 05:36 09/07/17 05:36 Labs: Short CBC 09/07/17 Range/Units 05:36 WBC 5.0 (4.3-11.1) K/mcL Hgb 9.1 L (11.5-15.4) g/dL Hct 32.2 L (35.3-44.9) % Plt Count 196 (140-400) K/mcL Neutrophils # 2.9 (1.6-8.9) K/mcL BMP 09/07/17 05:36 Sodium 142 Potassium 4.2 Chloride 103 Carbon Dioxide 35 H BUN 30 H Creatinine 0.81 Glucose 110 H Calcium 9.0 - ABG Interpretation ABG results: PT/INR, D-dimer PT 16.6 Seconds (9.4-12.1) H 09/07/17 05:36 Consult Discharge Plan - Plan Referrals: Lisbet Ray CNP [Primary Care Provider] - 09/13/17 2:15 pm (Please follow up as schedule...)
[2017-09-07] MEDS ORDERED: *HR* Warfarin 5 MG TABLET PO ONE (18:00)
[2017-09-07] MEDS ORDERED: Diltiazem CD (24hr) 240 MG CAPSULE PO SCH (18:00)
[2017-09-07 19:25] VITALS: BP 136/69
--- NOTE | 2017-09-07 20:54 | Event Note ---
Date of Encounter: 09/07/17 Time of Encounter: 20:00 I was notified that pt. wanted to sign out and leave AMA. Discussed ramifications of leaving AMA regarding pts. sub-therapeutic INR of 1.5. Informed patient of the dangers associated w/sub-therapeutic INR and the increased risk of developing fatal blood clots. Informed patient that there was an increased risk of if she were to leave against my medical advice. Patient and acknowledged understanding of the increased risk for and stated that she was leaving. Nurses present and I both reiterated the dangers and risks associated with leaving. Patient again stated that she understood the risks and that she could manage her INR at home. Unable to provide patient with medications/prescriptions prior to leaving d/t timing. Pt. states she will continue her Coumadin at home. Patient was given AMA paperwork and signed in our presence. Patient's reason for leaving was to complete a wedding cake with deadline of tomorrow.
--- NOTE | 2017-09-09 10:23 | Electrocardiograph Report ---
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
== END 2017-09-07 20:07 | disposition left against medical advice (07) | DRG 308 ==
LOC: 2ANU 14:23 → EMEROO 14:23 → 2ANU 17:46
PROVIDERS: ADMIT Internal Medicine Cardiovascular Disease; ATTEND Internal Medicine

== ENCOUNTER 2018-03-14 12:39 | Inpatient (IN) ==
--- NOTE | 2018-03-14 13:28 | Emergency Department Note ---
Disposition Clinical Impression: Atrial fibrillation with RVR, Palpitations, Difficulty breathing Disposition: Admitted As Inpatient Condition: Fair Referrals: Aj Virk MD [Partnered Physician] - Forms: ED Satisfaction Letter Time of Disposition: 15:42 General Adult HPI - General Chief complaint: ED Arrhythmia/Palpitations Stated complaint: "I think im in A-Fib" Time Seen by Provider: 03/14/18 12:44 Source: patient Limitations: no limitations Nursing Notes Reviewed: Yes Vital Signs Reviewed: Yes - History of Present Illness HPI Narrative: 67 year old obese white female with history of A. fib presents for palpitations and "I think I'm in A-fib" that started 10 minutes prior to coming down to the ER. Patient was upstairs with her who is getting a heart catheter. Patient also reports difficulty breathing for past few days, and leg swelling that is worse than usual. Patient takes Rythmol, Cardizem, Coumadin for A. fib. Has been off Coumadin for 1 week due to eye surgery tomorrow. States "did not sleep at all last night", reports no change in meds. Denies chest pain, numbness , tingling, visual changes, auditory changes. Medical history includes A-fib, COPD, CHF, HTN. Former smoker. Pain Scale: 0 - Related Data Home Medications Medication Instructions Recorded Confirmed Alendronate Sodium [Fosamax] 70 mg PO WE 10/28/15 03/14/18 Ascorbate Calcium [Vitamin C] 500 mg PO DAILY 10/28/15 03/14/18 Cyanocobalamin (Vitamin B-12) 100 mcg PO DAILY 10/28/15 03/14/18 [Vitamin B-12] Tiotropium [Spiriva] 2 puff PO HS 10/28/15 03/14/18 Warfarin [Coumadin] 5 mg PO SUTUTHFRSA 10/28/15 03/14/18 Dexlansoprazole [Dexilant] 60 mg PO DAILY 07/03/16 03/14/18 Ferrous Sulfate [Iron] 325 mg PO DAILY 07/03/16 03/14/18 Albuterol Sulfate [Proventil Hfa] 2 puff IH Q4H PRN 09/14/16 03/14/18 Oxygen 3 l IH AD 10/24/16 03/14/18 Montelukast [Singulair] 10 mg PO DAILY 11/29/16 03/14/18 Ropinirole HCl [Requip] 2 mg PO HS 11/29/16 03/14/18 Calcium Carbonate [Calcium] 600 mg PO BID 05/08/17 03/14/18 Fluorometholone [Fml Forte] 1 drop LEFT EYE QID 05/08/17 03/14/18 Acetaminophen/Diphenhydramine 1 - 2 tab PO HS PRN 07/19/17 03/14/18 [Percogesic 325-12.5 mg Tablet] Cholecalciferol (D-3) [Vitamin D] 5,000 unit PO DAILY 03/14/18 03/14/18 Lisinopril 2.5 mg PO BID 03/14/18 03/14/18 Propafenone HCl [Propafenone HCl 325 mg PO Q12H 03/14/18 03/14/18 ER] Warfarin [Coumadin] 7.5 mg PO MOWE 03/14/18 03/14/18 Previous Rx's Medication Instructions Recorded Fluticasone/Salmeterol [Advair 1 puff IH BID #1 blst.w.dev 11/16/16 250-50 Diskus] Magnesium Oxide [Mag-Ox] 400 mg PO DAILY #30 tablet 12/04/16 Furosemide [Lasix] 20 mg PO BID #60 01/11/17 Diltiazem CD (24hr) [Cardizem CD] 120 mg PO DAILY cap.er.24h 05/21/17 DiphenhydraMINE [Benadryl] 25 mg PO HS PRN capsule 07/23/17 Allergies Allergy/AdvReac Type Severity Reaction Status Date / Time aspirin [ASA] Allergy Difficulty Verified 03/14/18 13:43 Breathing Penicillins Allergy Hives Verified 03/14/18 13:43 Sulfa (Sulfonamide Allergy Rash Verified 03/14/18 13:43 Antibiotics) All systems ED: reviewed and negative except as stated. 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: Reports: no AMMUNITION ASSEMBLY I LABORER history - Social History Smoking Status: Former smoker Smokeless Tobacco Status: No Alcohol use: Reports: none Drug use: Reports: none Physical Exam - General Limitations: no limitations General appearance: alert, in no apparent distress - Eye Eye exam: Present: normal appearance, PERRL, EOMI - ENT ENT exam: normal exam, normal oropharynx, mucous membranes moist - Neck Neck exam: Present: normal inspection, full ROM, trachea midline - Chest Chest inspection: Present: normal inspection, symmetric chest wall rise - Respiratory Respiratory exam: Present: wheezes (diffuse). Absent: normal lung sounds bilaterally - Cardiovascular Cardiovascular exam: Present: tachycardia, irregular rhythm (irregularly irregular). Absent: regular rate, normal rhythm - Abdominal Exam Abdominal exam: Present: soft, Non-Tender, normal bowel sounds. Absent: tenderness, distention, guarding, rebound, rigidity - Extremities Exam Extremities exam: Present: full ROM, pedal edema. Absent: tenderness - Neurological Exam Neurological exam: Present: alert, oriented X3, CN II-XII intact. Absent: motor sensory deficit - Skin Skin exam: Present: warm, dry, intact, normal color Course Course Narrative: 67-year-old female with a history of A-fib presents for A-fib and palpitation. EKG reveals Afib with RVR 132. Patient is alert and oriented and of non-toxic appearance. BP 174/85 and tachycardic. On exam, heart is irregularly irregular, and lungs are diffusely wheezy. Denies chest pain. Will order cardizem. Will order cardiac workup and D-dimer. - Reevaluation(s) Reevaluation #1: CXR reveals mild pulmonary vascular congestion. D-dimer negative. Other labwork unremarkable and unchanged from prior labs. Cardizem bolus given, currently on drip. Heart rate down to 103-115. Still in A-fib, patient is always in A-fib. Spoke with hospitalist who agrees to admit. Time: 15:23 Reevaluation #2: Spoke with rn labor and delivery Dr. White who agrees to consult. Time: 15:38 Vital Signs Temperature 97.9 F 03/14/18 12:40 Pulse Rate 139 03/14/18 12:40 Respiratory Rate 16 03/14/18 12:40 Blood Pressure 174/85 03/14/18 12:40 O2 Sat by Pulse Oximetry 99 03/14/18 12:40 Temperature 97.9 F 03/14/18 12:40 Pulse Rate 139 03/14/18 12:40 Respiratory Rate 16 03/14/18 12:40 Blood Pressure 174/85 03/14/18 12:40 O2 Sat by Pulse Oximetry 91 03/14/18 13:06 Oxygen Delivery Oxygen Delivery Nasal Cannula Medical Decision Making - Medical Records Medical records reviewed: Yes I reviewed the patient's medical records. - Lab Data Lab results reviewed: Yes I reviewed the patient's lab results. - Radiology Data Radiology results reviewed: Yes I reviewed the patient's radiology results. CXR 03/14/2018. Mild pulmonary vascular congestion. No definite focal consolidation. - EKG Data EKG #1 EKG attestation: Yes I reviewed and interpreted this EKG. EKG results narrative: EKG/03/25 1252. Atrial fibrillation with rapid ventricular response. Heart rate 132. No ST segment elevation or depression. Prior EKG 09/07/2017 shows sinus rhythm.
--- NOTE | 2018-03-14 14:26 | Emergency Department Note ---
Disposition Clinical Impression: Atrial fibrillation with RVR Disposition: Admitted As Inpatient Forms: ED Satisfaction Letter General Adult HPI - General Chief complaint: ED Arrhythmia/Palpitations Stated complaint: "I think im in A-Fib" Time Seen by Provider: 03/14/18 12:44 Source: patient Limitations: no limitations - History of Present Illness Pain Scale: 0 - Related Data Home Medications Medication Instructions Recorded Confirmed Alendronate Sodium [Fosamax] 70 mg PO WE 10/28/15 03/14/18 Ascorbate Calcium [Vitamin C] 500 mg PO DAILY 10/28/15 03/14/18 Cyanocobalamin (Vitamin B-12) 100 mcg PO DAILY 10/28/15 03/14/18 [Vitamin B-12] Tiotropium [Spiriva] 2 puff PO HS 10/28/15 03/14/18 Warfarin [Coumadin] 5 mg PO SUTUTHFRSA 10/28/15 03/14/18 Dexlansoprazole [Dexilant] 60 mg PO DAILY 07/03/16 03/14/18 Ferrous Sulfate [Iron] 325 mg PO DAILY 07/03/16 03/14/18 Albuterol Sulfate [Proventil Hfa] 2 puff IH Q4H PRN 09/14/16 03/14/18 Oxygen 3 l IH AD 10/24/16 03/14/18 Montelukast [Singulair] 10 mg PO DAILY 11/29/16 03/14/18 Ropinirole HCl [Requip] 2 mg PO HS 11/29/16 03/14/18 Calcium Carbonate [Calcium] 600 mg PO BID 05/08/17 03/14/18 Fluorometholone [Fml Forte] 1 drop LEFT EYE QID 05/08/17 03/14/18 Acetaminophen/Diphenhydramine 1 - 2 tab PO HS PRN 07/19/17 03/14/18 [Percogesic 325-12.5 mg Tablet] Cholecalciferol (D-3) [Vitamin D] 5,000 unit PO DAILY 03/14/18 03/14/18 Lisinopril 2.5 mg PO BID 03/14/18 03/14/18 Propafenone HCl [Propafenone HCl 325 mg PO Q12H 03/14/18 03/14/18 ER] Warfarin [Coumadin] 7.5 mg PO MOWE 03/14/18 03/14/18 Previous Rx's Medication Instructions Recorded Fluticasone/Salmeterol [Advair 1 puff IH BID #1 blst.w.dev 11/16/16 250-50 Diskus] Magnesium Oxide [Mag-Ox] 400 mg PO DAILY #30 tablet 12/04/16 Furosemide [Lasix] 20 mg PO BID #60 01/11/17 Diltiazem CD (24hr) [Cardizem CD] 120 mg PO DAILY cap.er.24h 05/21/17 DiphenhydraMINE [Benadryl] 25 mg PO HS PRN capsule 07/23/17 Allergies Allergy/AdvReac Type Severity Reaction Status Date / Time aspirin [ASA] Allergy Difficulty Verified 03/14/18 13:43 Breathing Penicillins Allergy Hives Verified 03/14/18 13:43 Sulfa (Sulfonamide Allergy Rash Verified 03/14/18 13:43 Antibiotics) Past Medical History - Past Medical History Medical history: Reports: asthma, atrial fibrillation, CHF, COPD, GERD, hypertension, migraine Surgical history: Reports: cholecystectomy, hysterectomy Psychiatric history: Reports: no psych history STAFF DESIGN ENGINEER history: 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: no 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 DESIGN ENGINEER history - Social History Smoking Status: Former smoker Smokeless Tobacco Status: No Alcohol use: Reports: none Drug use: Reports: none Physical Exam - General Limitations: no limitations General appearance: alert, in no apparent distress Course Vital Signs Temperature 97.9 F 03/14/18 12:40 Pulse Rate 139 03/14/18 12:40 Respiratory Rate 16 03/14/18 12:40 Blood Pressure 174/85 03/14/18 12:40 O2 Sat by Pulse Oximetry 99 03/14/18 12:40 Temperature 97.9 F 03/14/18 12:40 Pulse Rate 139 03/14/18 12:40 Respiratory Rate 16 03/14/18 12:40 Blood Pressure 174/85 03/14/18 12:40 O2 Sat by Pulse Oximetry 91 03/14/18 13:06 Oxygen Delivery Oxygen Delivery Nasal Cannula Attestation Statement - Attestation Attestation: I examined this patient and my medical decision-making was reviewed with the Resident Physician. I agree with the documented findings, disposition and treatment plan as described except to the extent set forth below. 67 year old female presents to the ED with complaints of afib and was in the hsopial today visiting her and marisol is on mulit medication regimen to control her afib and [place] has been taken off her blood thinners for eye surgery and started to expereince shortness of breath without hypoxia. PAtint states denies chest pain or any feveres recently. WE will place a midline and then start cardizem and drip and bolus. Patient also will have a PE rule out because she has been off her blood thinner. We will admit to [facility].
[2018-03-14 14:41] LABS: Basophils % 0.2 %; Eosinophils % 1.7 %; Mean Platelet Volume 10.3 fL (9.4-12.4); Segmented Neutrophils % 74.2 %
[2018-03-14 14:43] LABS: Eosinophils # 0.1 K/mcL (0.0-0.6); Hemoglobin 8.5 g/dL (11.5-15.4); Immature Granulocytes % 1.2 % (0-4); Lymphocytes % 11.5 %; Mean Corpuscular HGB Conc 27.4 g/dL (31.6-35.5); Mean Corpuscular Hemoglobin 22.4 pg (28.0-33.3); Mean Corpuscular Volume 81.6 fL (83.0-100.0); Monocytes # 0.9 K/mcL (0.0-1.3); Monocytes % 11.2 %; Neutrophils # 6.1 K/mcL (1.6-8.9); Platelet Count 185 K/mcL (140-400); Red Cell Distribution Width 16.7 % (11.5-14.5)
[2018-03-14 14:46] LABS: Lymphocytes # 0.9 K/mcL (0.6-4.6)
[2018-03-14 14:47] LABS: INR 1.2; Prothrombin Time 13.1 Seconds (9.4-12.1)
[2018-03-14 14:49] LABS: Activated Partial Thrombo Time 30.5 Seconds (26.0-36.0); Hypochromasia Present (Not Present); Platelet Estimate Normal (Normal)
[2018-03-14 15:04] LABS: Troponin I < 0.03 ng/mL (< 0.04)
[2018-03-14 15:05] LABS: BUN/Creatinine Ratio 29 (6-26); Blood Urea Nitrogen 25 mg/dL (8-23); Calcium 9.7 mg/dL (8.6-10.3); Carbon Dioxide 42 mEq/L (23-29); Chloride 97 mEq/L (98-107); Glucose 104 mg/dL (70-105); Osmolality,Calculated 301 (280-300); Potassium 4.5 mEq/L (3.5-5.1); Sodium 143 mEq/L (136-145); eGFR For Non-African Americans > 60 (> 60)
--- NOTE | 2018-03-14 16:13 | Internal Med History&Physical ---
Date of Encounter: 03/14/18 Time of Encounter: 16:11 Internal Medicine - H&P: HPI Chief complaint: palpitation and sob Admitted From: Emergency Dept Plans for Post Hospital Care: Home History of present illness: Ms. Guevara is a 67 year old female Patient with history of paroxysmal atrial fibrillation has had multiple cardioversion about 5 times in the past, hypertension, COPD, morbid obesity, chronic anticoagulation and hypothyroidism. Patient was in the hospital today visited and developed palpitation and shortness of breath therefore was brought into the emergency room she was in atrial fibrillation rate 140 started on Cardizem drip and heart rate has come down to about 100 range . 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, heart cath no stent - Social History Smoking Status: Former smoker Smokeless Tobacco Status: No Alcohol use: none Drug use: none - Family History Sister Living Status: Hx Family Cardiac Disorders: Yes Hx Family Respiratory Disorders: Yes (copd) Mother Adopted: No Family Member Ethnicity: Non- Twin of Family Member: Yes, Fraternal Living Status: Hx Family Cardiac Disorders: No Hx Family Respiratory Disorders: No Hx Family Cancer: No Hx Family GI Disorders: No Hx Family Endocrine Disorder: No Hx Family Neuromuscular Disorders: No Hx Family Neurologic Disorders: No Hx Family HEENT Disorders: No Hx Family Autoimmune Disorders: No Father Adopted: No Family Member Ethnicity: Non- Twin of Family Member: Yes, Fraternal Living Status: Hx Family Cardiac Disorders: Yes Hx Family Respiratory Disorders: No Hx Family Cancer: No Hx Family GI Disorders: No Hx Family Endocrine Disorder: No Hx Family Neuromuscular Disorders: No Hx Family Neurologic Disorders: No Hx Family HEENT Disorders: No Hx Family Autoimmune Disorders: No Internal Medicine - H&P: Meds Alendronate Sodium [Fosamax] 70 mg PO WE 10/28/15 [History] Ascorbate Calcium [Vitamin C] 500 mg PO DAILY 10/28/15 [History] Cyanocobalamin (Vitamin B-12) [Vitamin B-12] 100 mcg PO DAILY 10/28/15 [History] Tiotropium [Spiriva] 2 puff PO HS 10/28/15 [History] Warfarin [Coumadin] 5 mg PO SUTUTHFRSA 10/28/15 [History] Dexlansoprazole [Dexilant] 60 mg PO DAILY 07/03/16 [History] Ferrous Sulfate [Iron] 325 mg PO DAILY 07/03/16 [History] Albuterol Sulfate [Proventil Hfa] 2 puff IH Q4H PRN 09/14/16 [History] Oxygen 3 l IH AD 10/24/16 [History] Fluticasone/Salmeterol [Advair 250-50 Diskus] 1 puff IH BID #1 blst.w.dev [Rx] Montelukast [Singulair] 10 mg PO DAILY 11/29/16 [History] Ropinirole HCl [Requip] 2 mg PO HS 11/29/16 [History] Magnesium Oxide [Mag-Ox] 400 mg PO DAILY #30 tablet 12/04/16 [Rx] Furosemide [Lasix] 20 mg PO BID #60 01/11/17 [Rx] Calcium Carbonate [Calcium] 600 mg PO BID 05/08/17 [History] Fluorometholone [Fml Forte] 1 drop LEFT EYE QID 05/08/17 [History] Diltiazem CD (24hr) [Cardizem CD] 120 mg PO DAILY cap.er.24h 05/21/17 [Rx] Acetaminophen/Diphenhydramine [Percogesic 325-12.5 mg Tablet] 1 - 2 tab PO HS PRN 07/19/17 [History] DiphenhydraMINE [Benadryl] 25 mg PO HS PRN capsule 07/23/17 [Rx] Cholecalciferol (D-3) [Vitamin D] 5,000 unit PO DAILY 03/14/18 [History] Lisinopril 2.5 mg PO BID 03/14/18 [History] Propafenone HCl [Propafenone HCl ER] 325 mg PO Q12H 03/14/18 [History] Warfarin [Coumadin] 7.5 mg PO MOWE 03/14/18 [History] 3 Allergy/AdvReac Type Severity Reaction Status Date / Time aspirin [ASA] Allergy Difficulty Verified 03/14/18 13:43 Breathing Penicillins Allergy Hives Verified 03/14/18 13:43 Sulfa (Sulfonamide Allergy Rash Verified 03/14/18 13:43 Antibiotics) All Systems PM: A 10-system review of systems was performed and is negative for pertinent findings except as documented above in the HPI. - Constitutional Vitals: Temp Pulse Resp BP Pulse Ox 97.9 F 139 16 174/85 91 03/14/18 15:17 03/14/18 15:17 03/14/18 15:17 03/14/18 15:17 03/14/18 15:17 General appearance: Present: mild distress - Eye Eye exam: Present: PERRL, conjuntiva pink, sclera anicteric Pupils: Present: PERRL - Neck Neck exam general surgery: Present: supple, trachea midline. Absent: lymphadenopathy - Respiratory Respiratory exam: Present: rhonchi - Cardiovascular Cardiovascular exam: Present: irregular rhythm, tachycardia - Extremities Exam Extremities exam: Present: warm, radial pulses palpable and symmetrical. Absent : calf tenderness, cyanotic, pedal edema Internal Med - H&P Results - Labs CBC & Chem 7: 03/14/18 13:08 03/14/18 13:08 - Assessment and plan (1) HTN (hypertension) Current Visit: Yes Status: Chronic Assessment and plan: Blood pressure not well controlled we will resume home medication and make some adjustment Qualifiers: Hypertension type: essential hypertension Qualified Code(s): I10 - Essential (primary) hypertension (2) Morbid obesity Current Visit: No Status: Chronic (3) Atrial fibrillation with rapid ventricular response Current Visit: No Status: Acute Assessment and plan: Patient i started on Cardizem drip and cardiology has been notified (4) COPD (chronic obstructive pulmonary disease) Current Visit: No Status: Chronic Assessment and plan: Chronic with no active wheezing at present Qualifiers: COPD type: unspecified COPD Qualified Code(s): J44.9 - Chronic obstructive pulmonary disease, unspecified (5) Chronic anticoagulation Current Visit: No Status: Chronic (6) Obesity Current Visit: No Status: Chronic Qualifiers: Obesity type: due to excess calories Obesity classification: adult class 2 (BMI 35 - 39.9) Serious obesity comorbidity presence: unspecified whether serious comorbidity present Body mass index: unspecified BMI Qualified Code( s): E66.09 - Other obesity due to excess calories - Time Spent With Patient Total time spent is greater than 50% in coordination of care (as documented) at patient's floor/unit and/or counseling patient:
[2018-03-14] MEDS ORDERED: Acetaminophen 325 MG TABLET PO PRN (16:29)
[2018-03-14] MEDS ORDERED: Naloxone 0.4 MG/ML INJ IVP PRN (16:29)
[2018-03-14] MEDS ORDERED: ACETAMINOPHEN PO PRN (16:32)
[2018-03-14] MEDS ORDERED: DIPHENHYDRAMINE PO PRN (16:32)
[2018-03-14] MEDS: FLUOROMETHOLONE OP SCH ×2 (16:59→21:54)
[2018-03-14] MEDS: (Propafenone Hcl [Propafenone Hcl Er] 325 MG) PO SCH (17:42)
[2018-03-14] MEDS: *HR* Warfarin 5 MG TABLET PO SCH (17:44)
[2018-03-14] MEDS: Budesonide/Formoterol 80/4.5 MDI IH SCH (21:22)
[2018-03-14] MEDS: Tiotropium 18 MCG inhalation IH SCH (22:39)
[2018-03-15 05:18] LABS: Alanine Aminotransferase 18 Units/L (7-52); Albumin 3.5 g/dL (3.5-5.7); Albumin/Globulin Ratio 1.6 (1.1-2.2); Alkaline Phosphatase 51 Units/L (34-104); Aspartate Amino Transferase 16 Units/L (13-39); BUN/Creatinine Ratio 29 (6-26); Bilirubin,Total 0.3 mg/dL (0.3-1.0); Blood Urea Nitrogen 23 mg/dL (8-23); Calcium 9.2 mg/dL (8.6-10.3); Carbon Dioxide 38 mEq/L (23-29); Chloride 98 mEq/L (98-107); Chol/HDL Ratio 2.1 (0-4.9); Cholesterol 137 mg/dL (< 200); Globulin 2.2 g/dL (2.4-3.5); Glucose 114 mg/dL (70-105); HDL Cholesterol 65 mg/dL (40-59); LDL Cholesterol,Calculated 54 mg/dL (0-99); Osmolality,Calculated 299 (280-300); Potassium 4.5 mEq/L (3.5-5.1); Sodium 142 mEq/L (136-145); Total Protein 5.7 g/dL (6.4-8.9); Triglycerides 90 mg/dL (< 150); eGFR For Non-African Americans > 60 (> 60)
[2018-03-15] MEDS: (Propafenone Hcl [Propafenone Hcl Er] 325 MG) PO SCH (05:34)
[2018-03-15] MEDS: Budesonide/Formoterol 80/4.5 MDI IH SCH ×2 (07:53→20:18)
--- NOTE | 2018-03-15 09:22 | Internal Med Progress Note ---
<Omari Salas - Last Filed: 03/15/18 13:23> Hospitalist Progress Note - Encounter Date of Encounter: 03/15/18 Time of Encounter: 09:00 - Subjective Interval History: Pt seen and examined. She states her palpitations are still present but feels it has slowed since admission. Denies any chest pain but admits to shortness of breath which is at her baseline while on home dose 4 L oxygen. No fever, chills , nausea, vomiting, diarrhea. - Exam Vitals: Temp Pulse Resp BP Pulse Ox 98.7 F 93 18 145/76 98 03/15/18 07:16 03/15/18 07:16 03/15/18 07:16 03/15/18 07:16 03/15/18 07:16 Exam: Gen: NAD, alert, awake HEENT: NCAT, EOMI, neck supple, no LAD Cardiac: irregularly irregular rhythm, tachycardic Lungs: decreased breath sounds Abd: no tenderness, bowel sounds present Ext: trace edema Neuro: appropriate affect, answers questions appropriately - Assessment and Plan (1) Atrial fibrillation with rapid ventricular response Current Visit: No Status: Acute Assessment and Plan: Patient currently off Cardizem drip and heart rate improved at low 100 - upper 90s Cardiology consulted, appreciate recommendations on restarting home dose of Rhythmol and Cardizem PO Restarted patient on Coumadin after she held this for 1 week in preparation for eye surgery that was originally scheduled today (2) COPD (chronic obstructive pulmonary disease) Current Visit: No Status: Chronic Assessment and Plan: Not in exacerbation as patient is on home o2 requirements and not having increased shortness of breath from baseline Continue supportive measures and breathing treatments No need for steroids or antibiotics at this time (3) Diastolic CHF Current Visit: No Status: Chronic Assessment and Plan: Stable, consider starting Lasix once her heart rate has improved (4) Hypertension Current Visit: No Status: Chronic Assessment and Plan: Blood pressures stable on Cardizem drip Continue home Lisinopril and Cardizem PO per cardiology recommendations (5) Chronic anticoagulation Current Visit: No Status: Chronic Assessment and Plan: Restarted coumadin as above INR was 1.2 on admission as she has held it (6) Morbid obesity Current Visit: No Status: Chronic - Time Spent with Patient Total time spent is greater than 50% in coordination of care (as documented) at patient's floor/unit and/or counseling patient: Internal Medicine: Result - Labs CBC & Chem 7: 03/14/18 13:08 03/15/18 04:00 Labs: BMP 03/15/18 04:00 Sodium 142 Potassium 4.5 Chloride 98 Carbon Dioxide 38 H BUN 23 Creatinine 0.78 Glucose 114 H Calcium 9.2 Cardiac Enzymes 03/14/18 03/15/18 Range/Units 22:45 04:45 Troponin I < 0.03 < 0.03 (< 0.04) ng/mL Liver Function 03/15/18 Range/Units 04:00 Total Bilirubin 0.3 (0.3-1.0) mg/dL AST 16 (13-39) Units/L ALT 18 (7-52) Units/L Alkaline Phosphatase 51 (34-104) Units/L Albumin 3.5 (3.5-5.7) g/dL - ABG Interpretation ABG results: PT/INR, D-dimer PT 13.1 Seconds (9.4-12.1) H 03/14/18 13:08 D-Dimer 396 ng/mLFEU (0-500) 03/14/18 13:08 Consult Discharge Plan - Plan Referrals: Lisbet Ray [employer] [Primary Care Provider] - 03/19/18 2:15 pm <Jeanine Tyson - Last Filed: 03/15/18 18:07> Hospitalist Progress Note - Encounter Date of Encounter: 03/15/18 - Exam Vitals: Temp Pulse Resp BP Pulse Ox 98.1 F 81 15 141/77 96 03/15/18 16:07 03/15/18 16:07 03/15/18 16:07 03/15/18 16:07 03/15/18 16:07 - Time Spent with Patient Total time spent is greater than 50% in coordination of care (as documented) at patient's floor/unit and/or counseling patient: Internal Medicine: Result - Labs CBC & Chem 7: 03/15/18 11:30 03/15/18 04:00 Labs: Short CBC 03/15/18 Range/Units 11:30 WBC 7.2 (4.3-11.1) K/mcL Hgb 8.7 L (11.5-15.4) g/dL Hct 32.4 L (35.3-44.9) % Plt Count 206 (140-400) K/mcL BMP 03/15/18 04:00 Sodium 142 Potassium 4.5 Chloride 98 Carbon Dioxide 38 H BUN 23 Creatinine 0.78 Glucose 114 H Calcium 9.2 Cardiac Enzymes 03/14/18 03/15/18 Range/Units 22:45 04:45 Troponin I < 0.03 < 0.03 (< 0.04) ng/mL Liver Function 03/15/18 Range/Units 04:00 Total Bilirubin 0.3 (0.3-1.0) mg/dL AST 16 (13-39) Units/L ALT 18 (7-52) Units/L Alkaline Phosphatase 51 (34-104) Units/L Albumin 3.5 (3.5-5.7) g/dL - ABG Interpretation ABG results: PT/INR, D-dimer PT 12.9 Seconds (9.4-12.1) H 03/15/18 11:30 D-Dimer 396 ng/mLFEU (0-500) 03/14/18 13:08 - Impressions Impressions Transesophageal w/Cardioversion 03/15/18 13:00 Impressions: Successful DCCV of atrial fibrillation to normal sinus rhythm. No thrombus on ZOILA. Patient desaturated during procedure. Consider outpatient evaluation for FUENTES. Medication Given: Time Medication Dose Units Route 14:40 Versed 1 mg IV 14:40 Fentanyl 25 mcg IV 14:45 Versed 1 mg IV 14:45 Fentanyl 25 mcg IV 14:50 Versed 1 mg IV Findings: ECG Findings * Atrial fib with RVR prior to start of procedure. Left Ventricle * Normal size and function. * There is no LV thrombus. Right Ventricle * The right ventricle was normal in size and systolic function. Left Atrium * LA is enlarged. * The LA appendage flow velocity is normal. * LA appendage is normal in appearance. * No thrombus present. Right Atrium * RA is enlarged. * No thrombus present. - Attending Attestation I examined this patient and my medical decision-making was reviewed with the Resident Physician Dr. Salas. I agree with the documented findings, disposition and treatment plan as described except to the extent set forth below. Ms. Guevara is a 67 year old female with known history of paroxysmal atrial fibrillation has had multiple cardioversion about 5 times in the past, hypertension, COPD, morbid obesity, chronic anticoagulation and hypothyroidism pt presented to ER with palpitation and shortness of breath. She was in atrial fibrillation rate 140 started on Cardizem drip and heart rate has come down to about 100 range . She denied any CP. Currently off the cardizem gtt Gen: A, A, O x 3 Chest: Diminished BS b/l Heart: S1S2+ Afib a/p 1. Acute afib with RVR on Rhythmol and pO cardizem scheduled for cardioversion today may need to come off he Cardizem will talk to card on Coumadin for anti coag <Omari Salas - Last Filed: 03/15/18 13:23> (2) COPD (chronic obstructive pulmonary disease) Qualifiers: COPD type: unspecified COPD Qualified Code(s): J44.9 - Chronic obstructive pulmonary disease, unspecified (3) Diastolic CHF Qualifiers: Qualified Code(s): I50.33 - Acute on chronic diastolic (congestive) heart failure (4) Hypertension Qualifiers: Hypertension type: essential hypertension Qualified Code(s): I10 - Essential (primary) hypertension
[2018-03-15] MEDS: Ascorbic Acid 500 MG TABLET PO SCH (09:29)
[2018-03-15] MEDS: Magnesium Oxide 400 MG TABLET PO SCH (09:29)
[2018-03-15] MEDS: Diltiazem CD (24hr) 120 MG CAPSULE PO SCH (09:29)
[2018-03-15] MEDS: FLUOROMETHOLONE OP SCH ×4 (09:34→21:26)
[2018-03-15] MEDS: (Cyanocobalamin (Vitamin B-12) [Vitamin B-12] 100 MCG PO SCH (09:35)
--- NOTE | 2018-03-15 10:05 | Cardiology Consult Note ---
Date of Encounter: 03/15/18 Time of Encounter: 09:30 Assessment and Plan (1) Atrial fibrillation with RVR Current Visit: Yes Status: Acute Per Cardiology: Past history of paroxysmal atrial fibrillation on antiarrhythmic therapy of Rythmol long-acting version 225 mg every 12 hours as outpatient. Patient reports compliance with medications, however did miss one dose last week due to "forgetting". Had been stable up until the past few days with increased stress with pending eye surgery for herself and catheterization for her . She does report 2 days ago did not sleep all night. She developed A. fib with RVR yesterday afternoon after 's procedure. Discussed and reviewed with Dr. White, will resume Rythmol-- unfortunately long-acting version not available on formulary, will start Rythmol 225 mg by mouth every 8 hours. Patient received dose yesterday morning and did take her own dose last night without nursing staff awareness. Dose to be given now, essentially has not missed any doses. Plan for DC cardioversion today. Remains on calcium channel balbina. Upon his negative 3. Echo with preserved EF. Regarding long-term anticoagulant addition, takes Coumadin, however held the past week due to pending eye surgery initially scheduled for today. We will start heparin drip at this time. Continue with Coumadin with target INR 2.0- 3.0. All questions answered, patient agreeable to plan. Discussion w patient/family: The assessment and plan as outlined above was discussed with the patient and/or family members who expressed understanding and agreement. All questions were answered. Thank you for involving us in the care of your patient. Please call with any questions. History of Present Illness Consult date: 03/15/18 Consult reason: Afib RVR Chief complaint: Palpitations History of present illness: Ms. Guevara is a 67 year old female with a relevant past medical history of atrial fibrillation on antiarrhythmic therapy, Coumadin, COPD, asthma, hypertension, GERD, obesity. Cardiology consult for A. fib with RVR. Patient reports her normal state of health up until the past few days. Reports compliance with antiarrhythmic medication. She does report she did miss one dose last week by accident. She indicates the past 4-5 days some mild dyspnea on exertion. She denies any chest pain. She reports increased stress recently with undergoing outpatient catheterization yesterday as well she was planned for outpatient eye surgery today. She reports 2 evenings ago no sleep due to stress. She is yesterday after 's catheterization she went to sit in a chair and almost fell and since that time heart had been racing and she felt palpitations with short of breath. She reports Coumadin on hold for pending I surgery for the past one week. She denies any active bleeding or blood loss. She denies any illness, syncope, falls. Denies any concerns or complaints. Reports she feels antiarrhythmic medication has been working well since September 2017. Past Med Surg Social Fam HX - Past Medical History Attestation: Yes The following information was validated with the patient. 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, heart cath no stent - Social History Smoking Status: Former smoker Smokeless Tobacco Status: No Alcohol use: none Drug use: none - Family History Sister Living Status: Hx Family Cardiac Disorders: Yes Hx Family Respiratory Disorders: Yes (copd) Mother Adopted: No Family Member Ethnicity: Non- Twin of Family Member: Yes, Fraternal Living Status: Hx Family Cardiac Disorders: No Hx Family Respiratory Disorders: No Hx Family Cancer: No Hx Family GI Disorders: No Hx Family Endocrine Disorder: No Hx Family Neuromuscular Disorders: No Hx Family Neurologic Disorders: No Hx Family HEENT Disorders: No Hx Family Autoimmune Disorders: No Father Adopted: No Family Member Ethnicity: Non- Twin of Family Member: Yes, Fraternal Living Status: Hx Family Cardiac Disorders: Yes Hx Family Respiratory Disorders: No Hx Family Cancer: No Hx Family GI Disorders: No Hx Family Endocrine Disorder: No Hx Family Neuromuscular Disorders: No Hx Family Neurologic Disorders: No Hx Family HEENT Disorders: No Hx Family Autoimmune Disorders: No Medications and Allergies Alendronate Sodium [Fosamax] 70 mg PO WE 10/28/15 [History] Ascorbate Calcium [Vitamin C] 500 mg PO DAILY 10/28/15 [History] Cyanocobalamin (Vitamin B-12) [Vitamin B-12] 100 mcg PO DAILY 10/28/15 [History] Tiotropium [Spiriva] 2 puff PO 10/28/15 [History] Warfarin [Coumadin] 5 mg PO SUTUTHFRSA 10/28/15 [History] Dexlansoprazole [Dexilant] 60 mg PO DAILY 07/03/16 [History] Ferrous Sulfate [Iron] 325 mg PO DAILY 07/03/16 [History] Albuterol Sulfate [Proventil Hfa] 2 puff IH Q4H PRN 09/14/16 [History] Oxygen 3 l IH AD 10/24/16 [History] Fluticasone/Salmeterol [Advair 250-50 Diskus] 1 puff IH BID #1 blst.w.dev [Rx] Montelukast [Singulair] 10 mg PO DAILY 11/29/16 [History] Ropinirole HCl [Requip] 2 mg PO HS 11/29/16 [History] Magnesium Oxide [Mag-Ox] 400 mg PO DAILY #30 tablet 12/04/16 [Rx] Furosemide [Lasix] 20 mg PO BID #60 01/11/17 [Rx] Calcium Carbonate [Calcium] 600 mg PO BID 05/08/17 [History] Fluorometholone [Fml Forte] 1 drop LEFT EYE QID 05/08/17 [History] Diltiazem CD (24hr) [Cardizem CD] 120 mg PO DAILY cap.er.24h 05/21/17 [Rx] Acetaminophen/Diphenhydramine [Percogesic 325-12.5 mg Tablet] 1 - 2 tab PO HS PRN 07/19/17 [History] DiphenhydraMINE [Benadryl] 25 mg PO HS PRN capsule 07/23/17 [Rx] Cholecalciferol (D-3) [Vitamin D] 5,000 unit PO DAILY 03/14/18 [History] Lisinopril 2.5 mg PO BID 03/14/18 [History] Propafenone HCl [Propafenone HCl ER] 325 mg PO Q12H 03/14/18 [History] Warfarin [Coumadin] 7.5 mg PO MOWE 03/14/18 [History] 3 Allergy/AdvReac Type Severity Reaction Status Date / Time aspirin [ASA] Allergy Difficulty Verified 03/14/18 13:43 Breathing Penicillins Allergy Hives Verified 03/14/18 13:43 Sulfa (Sulfonamide Allergy Rash Verified 03/14/18 13:43 Antibiotics) All Systems Review: The remainder of the systems were reviewed and are negative - Cardiovascular Cardiovascular: as per HPI, dyspnea on exertion, rapid heart rate Physical Examination Vital Signs, Last 4 Hours Temp Pulse Resp BP Pulse Ox 03/15/18 07:16 98.7 F 93 18 145/76 98 General: Conversant, No Apparent Distress HEENT: Atraumatic, Normocephaly, Mucus Membranes Moist Neck: No JVD, Normal carotid pulses Cardiac: No Murmur, Other (Irregularly irregular) Lungs: Normal Breath Sounds, No Wheeze, Rales, Rhonchi Neuro: Alert and responsive, No focal deficits noted Abdomen: Soft, Non-Tender Skin: No rashes noted on visualized skin Musculoskeletal: No Chest Wall Tenderness Extremities: No Clubbing, No Cyanosis, No Edema, Normal Pulses Results 03/15/18 11:30 03/15/18 04:00 Lab Results Laboratory Tests 03/14/18 03/14/18 03/14/18 13:08 18:30 22:45 Hgb Hct INR Creatinine Est GFR (Non-Af Amer) Troponin I < 0.03 < 0.03 < 0.03 B-Natriuretic Peptide LDL Cholesterol, Calc 03/15/18 03/15/18 03/15/18 04:00 04:00 04:45 Hgb Hct INR Creatinine 0.78 Est GFR (Non-Af Amer) > 60 Troponin I < 0.03 B-Natriuretic Peptide 209 H LDL Cholesterol, Calc 54 03/15/18 03/15/18 11:30 11:30 Hgb 8.7 L Hct 32.4 L INR 1.1 Creatinine Est GFR (Non-Af Amer) Troponin I B-Natriuretic Peptide LDL Cholesterol, Calc ITS Impressions Chest X-Ray 03/14/18 12:58 IMPRESSION: Mild pulmonary vascular congestion. No definite focal consolidation. D/ / Sydney Green MD / Sydney Green MD Interpreting Provider: Sydney Green MD Intake & Output 03/12/18 03/13/18 03/14/18 03/15/18 23:59 23:59 23:59 23:59 Intake Total 530 / 530 375 / 375 Balance 530 / 530 375 / 375 Weight 159.665 kg 161.5 kg Active Medications Acetaminophen (Tylenol) 650 mg PO Q6HR PRN PRN Reason: Mild Pain/Fever Stop: 09/13/18 16:30 Albuterol Sulfate (Albuterol Inhaler) 2 puff IH [id number] PRN PRN Reason: Shortness Of Breath Stop: 09/13/18 16:33 Ascorbic Acid (Vitamin C) 500 mg PO DAILY [facility] Stop: 09/14/18 09:01 Last Admin: 03/15/18 09:29 Dose: 500 mg Budesonide/Formoterol Fumarate (Symbicort) 2 puff IH BIDR [facility] Stop: 09/13/18 22:01 Last Admin: 03/15/18 07:53 Dose: Not Given Calcium Carbonate (Tums) 500 mg PO BID [facility] Stop: 09/13/18 21:01 Last Admin: 03/15/18 09:29 Dose: 500 mg Diltiazem HCl (Cardizem Cd) 240 mg PO DAILY [facility] Stop: 09/14/18 09:01 Last Admin: 03/15/18 09:29 Dose: 240 mg Diphenhydramine HCl (Benadryl) 25 mg PO HS PRN PRN Reason: Sleep Stop: 09/13/18 16:33 Fentanyl Citrate (Fentanyl (Pf)) 50 mcg IVP Q3MIN PRN PRN Reason: Analgesia Stop: 09/14/18 13:46 Ferrous Sulfate (Ferrous Sulfate) 325 mg PO DAILY [facility] Stop: 09/14/18 09:01 Last Admin: 03/15/18 09:29 Dose: 325 mg Heparin Sodium (Porcine) (Heparin) 9,000 unit IVP Q6HR PRN PRN Reason: SEE COMMENTS Stop: 09/14/18 12:12 Heparin Sodium (Porcine) (Heparin) 4,500 unit IVP Q6H PRN PRN Reason: SEE COMMENTS Stop: 09/14/18 12:12 Diltiazem HCl 50 mg/ Sodium (Chloride) 50 mls @ 10 mls/hr IVC .Q5H TIM; 10 MG/ HR PRN Reason: Protocol Stop: 09/13/18 13:01 Last Infusion: 03/15/18 09:37 Dose: 0 mg/hr, 0 mls/hr Heparin Sodium/Dextrose (Heparin 25,000 Unit/500 Ml D5w) 25,000 unit in 500 mls @ 45.22 mls/hr IVC .Q11H4M TIM; 14 UNIT/KG/HR PRN Reason: Protocol Stop: 09/14/18 12:16 Last Admin: 03/15/18 12:38 Dose: 14 unit/kg/hr, 45.22 mls/hr Sodium Chloride (0.9 % Sodium Chloride) 500 mls @ 150 mls/hr IVC .Q3H20M ONE Stop: 03/15/18 16:51 Lidocaine (Lidocaine Viscous Oral Soln) 15 ml MM ONCE PRN PRN Reason: Lubricant of oropharynx Lisinopril (Zestril) 2.5 mg PO BID [facility] Stop: 09/13/18 21:01 Last Admin: 03/15/18 09:33 Dose: 2.5 mg Magnesium Oxide (Mag-Ox) 400 mg PO DAILY TIM PRN Reason: Protocol Stop: 09/14/18 09:01 Last Admin: 03/15/18 09:29 Dose: 400 mg Midazolam HCl (Versed) 5 mg IVP Q3MIN PRN PRN Reason: Sedation Stop: 09/14/18 13:46 Montelukast Sodium (Singulair) 10 mg PO DAILY [facility] Stop: 09/14/18 09:01 Last Admin: 03/15/18 09:29 Dose: 10 mg Naloxone HCl (Narcan) 0.4 mg IVP Q2MIN PRN PRN Reason: SEE COMMENTS Stop: 09/13/18 16:30 Omeprazole (Prilosec) 40 mg PO DAILY [facility] Stop: 09/14/18 09:01 Last Admin: 03/15/18 09:29 Dose: 40 mg Pharmacy Profile Note (Patient Taking Own Medication) 0 each PO HS PRN PRN Reason: PAIN/SLEEP Pharmacy Profile Note (Patient Taking Own Medication) 0 each PO WE [facility] Stop: 09/19/18 06:31 Pharmacy Profile Note (Patient Taking Own Medication) 0 each PO DAILY [facility] Stop: 09/14/18 09:01 Last Admin: 03/15/18 09:35 Dose: Not Given Pharmacy Profile Note (Patient Taking Own Medication) 0 each OP QID [facility] Stop: 09/13/18 17:01 Last Admin: 03/15/18 12:41 Dose: Not Given Propafenone HCl (Rhythmol) 225 mg PO Q8HR [facility] Stop: 09/14/18 10:49 Last Admin: 03/15/18 12:40 Dose: 225 mg Tiotropium [place] (Spiriva) 18 mcg IH HS [facility] Stop: 09/13/18 21:46 Last Admin: 03/14/18 22:39 Dose: 18 mcg Vitamin D (Vitamin D) 5,000 unit PO DAILY [facility] Stop: 09/14/18 09:01 Last Admin: 03/15/18 11:15 Dose: Not Given Warfarin Sodium (Coumadin) 5 mg PO [email or web address] [facility] Stop: 09/13/18 18:01 Last Admin: 03/14/18 17:44 Dose: 5 mg Warfarin Sodium (Coumadin) 7.5 mg PO [email or web address] [facility] Stop: 09/17/18 18:01 - Imaging and Cardiology Echo: report reviewed - EKG Interpretation EKG results cardiology: personally reviewed (A. fib with RVR in the 130s), other (Telemetry shows A. fib currently in the 100s to 110s) Consult Discharge Plan - Plan Referrals: Lisbet Ray [employer] [Primary Care Provider] - 03/19/18 2:15 pm
[2018-03-15] MEDS: Cholecalciferol (D-3) 1,000 UNIT TABLET PO SCH (11:15)
[2018-03-15] MEDS ORDERED: *HR* Heparin 5,000 UNIT/ML VIAL IVP PRN ×2 (12:11)
[2018-03-15] MEDS ORDERED: *HR* Heparin 5,000 UNIT/ML VIAL IVP ONE (12:11)
[2018-03-15 12:24] LABS: Heparin anti-factor XA UFH 0.04 IU/mL (0.30-0.70)
[2018-03-15 12:25] LABS: INR 1.1; Prothrombin Time 12.9 Seconds (9.4-12.1)
[2018-03-15 12:26] LABS: Hematocrit 32.4 % (35.3-44.9); Hemoglobin 8.7 g/dL (11.5-15.4); Mean Corpuscular HGB Conc 26.9 g/dL (31.6-35.5); Mean Corpuscular Hemoglobin 22.2 pg (28.0-33.3); Mean Corpuscular Volume 82.7 fL (83.0-100.0); Mean Platelet Volume 11.3 fL (9.4-12.4); Platelet Count 206 K/mcL (140-400); Red Blood Count 3.92 M/mcL (3.82-4.97); Red Cell Distribution Width 16.8 % (11.5-14.5)
[2018-03-15] MEDS: Heparin 25,000 UNIT/500 ML D5W 25,000 UNIT/500 ML BAG IVC SCH (12:38)
[2018-03-15] MEDS ORDERED: Lidocaine Viscous Oral Soln 15 ML SOLUTION MM PRN (13:31)
[2018-03-15] MEDS ORDERED: Tetracaine/Benzocaine/Butamben 200MG/SPRAY (100SPY/BOT) MM ONE (13:32)
[2018-03-15] MEDS ORDERED: 0.9 % Sodium Chloride 500 ML IVC ONE (13:32)
[2018-03-15] MEDS: *HR* Midazolam HCl 5 MG/5 ML VIAL IVP PRN ×3 (14:40→14:50)
[2018-03-15] MEDS: *HR* FentaNYL (PF) 100 MCG/2 ML VIAL IVP PRN ×2 (14:40→14:45)
--- NOTE | 2018-03-15 15:29 | Event Note ---
Date of Encounter: 03/15/18 Time of Encounter: 15:30 - Cardiology Event Note S/p ZOILA/DCCV, converted to SR with [address] White, continue with Rythmol 225 mg by mouth every 8 hours and at time of discharge convert back to long-acting Rythmol 225 mg by mouth every 12 hours. Recommend bridging with either IV heparin drip for home Lovenox until INR back to therapeutic range 2.0-3.0 since underwent cardioversion and Coumadin have been on hold. Cardiology will sign off, reconsult as needed, follow-up arranged.
--- NOTE | 2018-03-15 17:47 | Electrocardiograph Report ---
[place] [id number] Test Date: 2018-03-14 Pat Name: Alyssa Guevara Department: 103 Room: 2NE23 Gender: F Drop Press Hand: KARMA : 1950 Requested By: Kasi Connolly Order Number: [id number] Reading MD: Taniya Cedillo Measurements Intervals [place] Rate: 132 P: [place]: 0 QRS: 46 QRSD: 87 T: -10 QT: 271 QTc: 349 Interpretive Statements ATRIAL FIBRILLATION WITH RAPID VENTRICULAR RESPONSE POSSIBLE RIGHT VENTRICULAR CONDUCTION DELAY [RSR (QR) IN V1/V2] NONSPECIFIC ST & T-WAVE ABNORMALITY ABNORMAL RHYTHM ECG Electronically Signed On 03-15-2018 17:45:29 EDT by Taniya Cedillo
[2018-03-15] MEDS: *HR* Warfarin 5 MG TABLET PO SCH (17:57)
[2018-03-15] MEDS: Tiotropium 18 MCG inhalation IH SCH (20:18)
[2018-03-16] MEDS: Heparin 25,000 UNIT/500 ML D5W 25,000 UNIT/500 ML BAG IVC SCH ×3 (03:33→19:44)
[2018-03-16 05:44] LABS: Eosinophils % 2.7 %
[2018-03-16 05:45] LABS: Basophils % 0.3 %; Eosinophils # 0.2 K/mcL (0.0-0.6); Hemoglobin 7.6 g/dL (11.5-15.4); Immature Granulocytes % 1.1 % (0-4); Lymphocytes # 1.4 K/mcL (0.6-4.6); Lymphocytes % 18.5 %; Mean Corpuscular HGB Conc 27.1 g/dL (31.6-35.5); Mean Corpuscular Hemoglobin 22.4 pg (28.0-33.3); Mean Corpuscular Volume 82.6 fL (83.0-100.0); Monocytes # 0.7 K/mcL (0.0-1.3); Monocytes % 9.9 %; Neutrophils # 4.9 K/mcL (1.6-8.9); Platelet Count 189 K/mcL (140-400); Red Blood Count 3.39 M/mcL (3.82-4.97); Segmented Neutrophils % 67.5 %
[2018-03-16 05:49] LABS: INR 1.2; Prothrombin Time 13.6 Seconds (9.4-12.1)
[2018-03-16 06:03] LABS: BUN/Creatinine Ratio 31 (6-26); Blood Urea Nitrogen 26 mg/dL (8-23); Calcium 8.9 mg/dL (8.6-10.3); Carbon Dioxide 37 mEq/L (23-29); Chloride 98 mEq/L (98-107); Glucose 132 mg/dL (70-105); Osmolality,Calculated 297 (280-300); Potassium 4.3 mEq/L (3.5-5.1); Sodium 140 mEq/L (136-145); eGFR For Non-African Americans > 60 (> 60)
[2018-03-16 06:40] LABS: Anisocytosis 1+ (Not Present); Hypochromasia Present (Not Present); Platelet Estimate Normal (Normal)
[2018-03-16] MEDS: Budesonide/Formoterol 80/4.5 MDI IH SCH ×2 (07:54→19:33)
[2018-03-16] MEDS: Magnesium Oxide 400 MG TABLET PO SCH (08:26)
[2018-03-16] MEDS: Ascorbic Acid 500 MG TABLET PO SCH (08:26)
[2018-03-16] MEDS: Cholecalciferol (D-3) 1,000 UNIT TABLET PO SCH (08:26)
[2018-03-16] MEDS: Diltiazem CD (24hr) 120 MG CAPSULE PO SCH (08:26)
[2018-03-16] MEDS: FLUOROMETHOLONE OP SCH (08:27)
[2018-03-16] MEDS: (Cyanocobalamin (Vitamin B-12) [Vitamin B-12] 100 MCG PO SCH (08:27)
--- NOTE | 2018-03-16 09:53 | Internal Med Progress Note ---
<Omari Salas - Last Filed: 03/16/18 09:51> Hospitalist Progress Note - Encounter Date of Encounter: 03/16/18 Time of Encounter: 09:51 - Subjective Interval History: Pt seen and examined. She states she does not feel any palpitations this morning but has complained of increased cough and wheeze. Denies pain anywhere, nausea, vomiting, fever, or diarrhea. No overt signs of blood loss. - Exam Vitals: Temp Pulse Resp BP Pulse Ox 97.6 F 74 17 157/56 93 03/16/18 07:01 03/16/18 07:01 03/16/18 07:01 03/16/18 07:01 03/16/18 07:01 Exam: Gen: NAD, alert, awake HEENT: NCAT, EOMI, neck supple, no LAD Cardiac: RRR Lungs: wheezes heard bilaterally Abd: no tenderness, bowel sounds present Ext: trace edema Neuro: appropriate affect, answers questions appropriately - Assessment and Plan (1) Atrial fibrillation with rapid ventricular response Current Visit: No Status: Acute Assessment and Plan: s/p successful ZOILA/Cardioversion yesterday and remains in sinus rhythm Cardiology consulted, appreciate recommendations on restarting home dose of Rhythmol and Cardizem PO Restarted patient on Coumadin and will bridge with Heparin ggt INR was 1.2 this morning, will recheck in AM (2) COPD (chronic obstructive pulmonary disease) Current Visit: No Status: Chronic Assessment and Plan: Patient does have increased wheezing and cough today Will start on short course Prednisone 40 mg daily, plan for 5 days maximum Continue with home dose of 4 L oxygen and breathing treatments No SIRS criteria to indicate infection/PNA (3) Diastolic CHF Current Visit: No Status: Chronic Assessment and Plan: Stable, consider starting Lasix once her heart rate remains stable over a day (4) Hypertension Current Visit: No Status: Chronic Assessment and Plan: Blood pressures stable off Cardizem drip Continue home Lisinopril and Cardizem PO per cardiology recommendations (5) Chronic anticoagulation Current Visit: No Status: Chronic Assessment and Plan: Plan as above with restarting Coumadin and bridging with heparin ggt (6) Morbid obesity Current Visit: No Status: Chronic - Time Spent with Patient Total time spent is greater than 50% in coordination of care (as documented) at patient's floor/unit and/or counseling patient: Internal Medicine: Result - Labs CBC & Chem 7: 03/16/18 05:36 03/16/18 05:36 Labs: Short CBC 03/15/18 03/16/18 Range/Units 11:30 05:36 WBC 7.2 7.3 (4.3-11.1) K/mcL Hgb 8.7 L 7.6 L (11.5-15.4) g/dL Hct 32.4 L 28.0 L (35.3-44.9) % Plt Count 206 189 (140-400) K/mcL Neutrophils # 4.9 (1.6-8.9) K/mcL BMP 03/16/18 05:36 Sodium 140 Potassium 4.3 Chloride 98 Carbon Dioxide 37 H BUN 26 H Creatinine 0.83 Glucose 132 H Calcium 8.9 - ABG Interpretation ABG results: PT/INR, D-dimer PT 13.6 Seconds (9.4-12.1) H 03/16/18 05:36 D-Dimer 396 ng/mLFEU (0-500) 03/14/18 13:08 - Impressions Impressions Transesophageal w/Cardioversion 03/15/18 13:00 Impressions: Successful DCCV of atrial fibrillation to normal sinus rhythm. No thrombus on ZOILA. Patient desaturated during procedure. Consider outpatient evaluation for FUENTES. Medication Given: Time Medication Dose Units Route 14:40 Versed 1 mg IV 14:40 Fentanyl 25 mcg IV 14:45 Versed 1 mg IV 14:45 Fentanyl 25 mcg IV 14:50 Versed 1 mg IV Findings: ECG Findings * Atrial fib with RVR prior to start of procedure. Left Ventricle * Normal size and function. * There is no LV thrombus. Right Ventricle * The right ventricle was normal in size and systolic function. Left Atrium * LA is enlarged. * The LA appendage flow velocity is normal. * LA appendage is normal in appearance. * No thrombus present. Right Atrium * RA is enlarged. * No thrombus present. Consult Discharge Plan - Plan Referrals: Lisbet Ray CNP [Primary Care Provider] - 03/19/18 2:15 pm <Jeanine Tyson - Last Filed: 03/16/18 14:37> Hospitalist Progress Note - Encounter Date of Encounter: 03/16/18 - Exam Vitals: Temp Pulse Resp BP Pulse Ox 97.8 F 75 17 152/61 94 03/16/18 11:50 03/16/18 11:50 03/16/18 12:01 03/16/18 11:50 03/16/18 12:01 - Time Spent with Patient Total time spent is greater than 50% in coordination of care (as documented) at patient's floor/unit and/or counseling patient: Internal Medicine: Result - Labs CBC & Chem 7: 03/16/18 05:36 03/16/18 05:36 Labs: Short CBC 03/16/18 Range/Units 05:36 WBC 7.3 (4.3-11.1) K/mcL Hgb 7.6 L (11.5-15.4) g/dL Hct 28.0 L (35.3-44.9) % Plt Count 189 (140-400) K/mcL Neutrophils # 4.9 (1.6-8.9) K/mcL BMP 03/16/18 05:36 Sodium 140 Potassium 4.3 Chloride 98 Carbon Dioxide 37 H BUN 26 H Creatinine 0.83 Glucose 132 H Calcium 8.9 - ABG Interpretation ABG results: PT/INR, D-dimer PT 13.6 Seconds (9.4-12.1) H 03/16/18 05:36 D-Dimer 396 ng/mLFEU (0-500) 03/14/18 13:08 - Impressions Impressions Transesophageal w/Cardioversion 03/15/18 13:00 Impressions: Successful DCCV of atrial fibrillation to normal sinus rhythm. No thrombus on ZOILA. Patient desaturated during procedure. Consider outpatient evaluation for FUENTES. Medication Given: Time Medication Dose Units Route 14:40 Versed 1 mg IV 14:40 Fentanyl 25 mcg IV 14:45 Versed 1 mg IV 14:45 Fentanyl 25 mcg IV 14:50 Versed 1 mg IV Findings: ECG Findings * Atrial fib with RVR prior to start of procedure. Left Ventricle * Normal size and function. * There is no LV thrombus. Right Ventricle * The right ventricle was normal in size and systolic function. Left Atrium * LA is enlarged. * The LA appendage flow velocity is normal. * LA appendage is normal in appearance. * No thrombus present. Right Atrium * RA is enlarged. * No thrombus present. - Attending Attestation I examined this patient and my medical decision-making was reviewed with the Resident Physician Dr. Salas. I agree with the documented findings, disposition and treatment plan as described except to the extent set forth below. Ms. Guevara is a 67 year old female with known history of paroxysmal atrial fibrillation has had multiple cardioversion about 5 times in the past, hypertension, COPD, morbid obesity, chronic anticoagulation and hypothyroidism pt presented to ER with palpitation and shortness of breath. She was in atrial fibrillation with RVR. Pt was admitted in the hospital and started on Cardizem gtt later switched to PO Cardizem. Pt had cardiversion y/d, now she is in NSR. Gen: A, A, O x 3 Chest: Diminished BS b/l, mild wheezing Heart: S1S2+ Afib a/p 1. Acute afib with RVR on Rhythmol and pO cardizem may need to come off he Cardizem will talk to card on Coumadin for anti coag..INR still sub therapeutic.. Cont bridging with Heparin 2. Acute reactive airway disease / broncho spasm started on low dose steroids Duonebria <Omari Salas - Last Filed: 03/16/18 09:51> (2) COPD (chronic obstructive pulmonary disease) Qualifiers: COPD type: unspecified COPD Qualified Code(s): J44.9 - Chronic obstructive pulmonary disease, unspecified (3) Diastolic CHF Qualifiers: Qualified Code(s): I50.33 - Acute on chronic diastolic (congestive) heart failure (4) Hypertension Qualifiers: Hypertension type: essential hypertension Qualified Code(s): I10 - Essential (primary) hypertension
[2018-03-16] MEDS: Cyanocobalamin (B-12) 1,000 MCG TABLET PO SCH (10:37)
[2018-03-16] MEDS: predniSONE 20 MG TABLET PO SCH (10:37)
[2018-03-16] MEDS: Fluorometholone OPTH 5 ML BOTTLE LEFT EYE SCH ×3 (11:54→19:41)
[2018-03-16] MEDS ORDERED: Warfarin perPT PO PRN (15:07)
[2018-03-16] MEDS: *HR* Warfarin 5 MG TABLET PO SCH (17:08)
[2018-03-16] MEDS: Tiotropium 18 MCG inhalation IH SCH (19:32)
[2018-03-17 04:51] LABS: INR 1.3; Prothrombin Time 14.1 Seconds (9.4-12.1)
[2018-03-17 04:53] LABS: Basophils % 0.1 %; Eosinophils % 0.3 %; Mean Corpuscular HGB Conc 27.1 g/dL (31.6-35.5)
[2018-03-17 04:55] LABS: Hematocrit 28.8 % (35.3-44.9); Hemoglobin 7.8 g/dL (11.5-15.4); Immature Granulocytes % 1.9 % (0-4); Lymphocytes # 0.9 K/mcL (0.6-4.6); Lymphocytes % 11.5 %; Mean Corpuscular Hemoglobin 23.1 pg (28.0-33.3); Mean Corpuscular Volume 85.2 fL (83.0-100.0); Mean Platelet Volume 11.6 fL (9.4-12.4); Monocytes # 0.8 K/mcL (0.0-1.3); Monocytes % 9.7 %; Neutrophils # 6.1 K/mcL (1.6-8.9); Platelet Count 195 K/mcL (140-400); Red Blood Count 3.38 M/mcL (3.82-4.97); Red Cell Distribution Width 16.5 % (11.5-14.5); Segmented Neutrophils % 76.5 %
[2018-03-17 05:04] LABS: BUN/Creatinine Ratio 34 (6-26); Blood Urea Nitrogen 28 mg/dL (8-23); Carbon Dioxide 38 mEq/L (23-29); Chloride 101 mEq/L (98-107); Glucose 139 mg/dL (70-105); Osmolality,Calculated 300 (280-300); Potassium 4.6 mEq/L (3.5-5.1); Sodium 141 mEq/L (136-145); eGFR For Non-African Americans > 60 (> 60)
[2018-03-17 05:20] LABS: Anisocytosis 1+ (Not Present); Hypochromasia Present (Not Present); Platelet Estimate Normal (Normal)
[2018-03-17] MEDS: Budesonide/Formoterol 80/4.5 MDI IH SCH ×2 (07:40→20:01)
[2018-03-17] MEDS: Fluorometholone OPTH 5 ML BOTTLE LEFT EYE SCH ×4 (08:53→20:14)
[2018-03-17] MEDS: Cyanocobalamin (B-12) 1,000 MCG TABLET PO SCH (09:01)
[2018-03-17] MEDS: Diltiazem CD (24hr) 120 MG CAPSULE PO SCH (09:01)
[2018-03-17] MEDS: predniSONE 20 MG TABLET PO SCH (09:01)
[2018-03-17] MEDS: Magnesium Oxide 400 MG TABLET PO SCH (09:01)
[2018-03-17] MEDS: Cholecalciferol (D-3) 1,000 UNIT TABLET PO SCH (09:02)
[2018-03-17] MEDS: Ascorbic Acid 500 MG TABLET PO SCH (09:02)
--- NOTE | 2018-03-17 10:11 | Internal Med Progress Note ---
<Omari Salas - Last Filed: 03/17/18 11:06> Hospitalist Progress Note - Encounter Date of Encounter: 03/17/18 Time of Encounter: 10:10 - Subjective Interval History: Pt seen and examined. She states her breathing is better than yesterday and still complains of cough. Denies any issues with pain, fever, nausea, vomiting. - Exam Vitals: Temp Pulse Resp BP Pulse Ox 97.9 F 83 16 162/72 98 03/17/18 07:14 03/17/18 07:14 03/17/18 07:14 03/17/18 07:14 03/17/18 07:14 Exam: Gen: NAD, alert, awake HEENT: NCAT, EOMI, neck supple, no LAD Cardiac: RRR Lungs: faint wheezes heard bilaterally Abd: no tenderness, bowel sounds present Ext: 2+ edema Neuro: appropriate affect, answers questions appropriately - Assessment and Plan (1) Atrial fibrillation with rapid ventricular response Current Visit: No Status: Acute Assessment and Plan: s/p successful ZOILA/Cardioversion 03/15 and remains in sinus rhythm Cardiology recommended restarting home dose of Rhythmol and Cardizem PO Restarted patient on Coumadin and will bridge with Lovenox INR was 1.3 this morning, will recheck in AM Plan to discharge tomorrow if remains stable with Lovenox SQ (2) COPD (chronic obstructive pulmonary disease) Current Visit: No Status: Chronic Assessment and Plan: Patient does clinical improvement with better lung sounds and wheezing Continue day 2 Prednisone 40 mg daily, plan for 5 days maximum Continue with home dose of 4 L oxygen and breathing treatments No SIRS criteria to indicate infection/PNA (3) Diastolic CHF Current Visit: No Status: Chronic Assessment and Plan: Restarted home Lasix as patient has slightly increase LE edema from yesterday Breathing is improved and Cr at baseline (4) Hypertension Current Visit: No Status: Chronic Assessment and Plan: Continue home Lisinopril and Cardizem (5) Chronic anticoagulation Current Visit: No Status: Chronic Assessment and Plan: Plan as above with restarting Coumadin and bridging with Lovenox (6) Morbid obesity Current Visit: No Status: Chronic - Time Spent with Patient Total time spent is greater than 50% in coordination of care (as documented) at patient's floor/unit and/or counseling patient: Internal Medicine: Result - Labs CBC & Chem 7: 08/12/18 04:20 03/17/18 04:20 Labs: Short CBC 03/17/18 Range/Units 04:20 WBC 8.0 (4.3-11.1) K/mcL Hgb 7.8 L (11.5-15.4) g/dL Hct 28.8 L (35.3-44.9) % Plt Count 195 (140-400) K/mcL Neutrophils # 6.1 (1.6-8.9) K/mcL BMP 03/17/18 04:20 Sodium 141 Potassium 4.6 Chloride 101 Carbon Dioxide 38 H BUN 28 H Creatinine 0.83 Glucose 139 H Calcium 9.0 - ABG Interpretation ABG results: PT/INR, D-dimer PT 14.1 Seconds (9.4-12.1) H 03/17/18 04:20 D-Dimer 396 ng/mLFEU (0-500) 03/14/18 13:08 Consult Discharge Plan - Plan Referrals: Lisbet Ray CNP [Primary Care Provider] - 03/19/18 2:15 pm <Jeanine Tyson - Last Filed: 03/17/18 13:21> Hospitalist Progress Note - Encounter Date of Encounter: 03/17/18 - Exam Vitals: Temp Pulse Resp BP Pulse Ox 98.4 F 79 16 161/63 96 03/17/18 11:45 03/17/18 11:45 03/17/18 11:45 03/17/18 11:45 03/17/18 11:45 - Time Spent with Patient Total time spent is greater than 50% in coordination of care (as documented) at patient's floor/unit and/or counseling patient: Internal Medicine: Result - Labs CBC & Chem 7: 03/17/18 04:20 03/17/18 04:20 Labs: Short CBC 03/17/18 Range/Units 04:20 WBC 8.0 (4.3-11.1) K/mcL Hgb 7.8 L (11.5-15.4) g/dL Hct 28.8 L (35.3-44.9) % Plt Count 195 (140-400) K/mcL Neutrophils # 6.1 (1.6-8.9) K/mcL BMP 03/17/18 04:20 Sodium 141 Potassium 4.6 Chloride 101 Carbon Dioxide 38 H BUN 28 H Creatinine 0.83 Glucose 139 H Calcium 9.0 - ABG Interpretation ABG results: PT/INR, D-dimer PT 14.1 Seconds (9.4-12.1) H 03/17/18 04:20 D-Dimer 396 ng/mLFEU (0-500) 03/14/18 13:08 - Attending Attestation I examined this patient and my medical decision-making was reviewed with the Resident Physician Dr. Salas. I agree with the documented findings, disposition and treatment plan as described except to the extent set forth below. Ms. Guevara is a 67 year old female with known history of paroxysmal atrial fibrillation has had multiple cardioversion about 5 times in the past, hypertension, COPD, morbid obesity, chronic anticoagulation and hypothyroidism pt presented to ER with palpitation and shortness of breath. She was in atrial fibrillation with RVR. Pt was admitted in the hospital and started on Cardizem gtt later switched to PO Cardizem. Pt had cardiversion y/d, now she is in NSR. Gen: A, A, O x 3 Chest: Diminished BS b/l, mild wheezing Heart: S1S2+ Afib a/p 1. Acute afib with RVR on Rhythmol and pO cardizem Talked to Card recommend to continue Rhythmol and Cardizem on Coumadin for anti coag..INR still sub therapeutic.. Cont bridging with Heparin 2. Acute reactive airway disease / broncho spasm cont low dose steroids Duoneb <Omari Salas - Last Filed: 03/17/18 11:06> (2) COPD (chronic obstructive pulmonary disease) Qualifiers: COPD type: unspecified COPD Qualified Code(s): J44.9 - Chronic obstructive pulmonary disease, unspecified (4) Hypertension Qualifiers: Hypertension type: essential hypertension Qualified Code(s): I10 - Essential (primary) hypertension
[2018-03-17] MEDS: Furosemide 20 MG TABLET PO SCH ×2 (10:35→16:50)
[2018-03-17] MEDS: *HR* Enoxaparin 80 MG/0.8 ML SYRINGE SQ SCH (16:50)
[2018-03-17] MEDS ORDERED: *HR* Warfarin 7.5 MG TABLET PO ONE (18:00)
[2018-03-17] MEDS: Tiotropium 18 MCG inhalation IH SCH (20:01)
[2018-03-18 04:24] LABS: Eosinophils % 0.1 %; Immature Granulocytes % 1.2 % (0-4); Lymphocytes % 11.2 %; Red Cell Distribution Width 16.8 % (11.5-14.5)
[2018-03-18 04:25] LABS: Basophils % 0.1 %; Hematocrit 30.9 % (35.3-44.9); Hemoglobin 8.3 g/dL (11.5-15.4); Mean Corpuscular HGB Conc 26.9 g/dL (31.6-35.5); Mean Corpuscular Hemoglobin 22.6 pg (28.0-33.3); Mean Corpuscular Volume 84.2 fL (83.0-100.0); Mean Platelet Volume 11.3 fL (9.4-12.4); Monocytes # 0.9 K/mcL (0.0-1.3); Monocytes % 9.4 %; Neutrophils # 7.1 K/mcL (1.6-8.9); Platelet Count 206 K/mcL (140-400); Red Blood Count 3.67 M/mcL (3.82-4.97)
[2018-03-18 04:29] LABS: INR 1.4; Prothrombin Time 16.3 Seconds (9.4-12.1)
[2018-03-18 04:51] LABS: BUN/Creatinine Ratio 33 (6-26); Blood Urea Nitrogen 31 mg/dL (8-23); Calcium 9.3 mg/dL (8.6-10.3); Carbon Dioxide 39 mEq/L (23-29); Chloride 100 mEq/L (98-107); Glucose 109 mg/dL (70-105); Osmolality,Calculated 303 (280-300); Potassium 4.6 mEq/L (3.5-5.1); Sodium 143 mEq/L (136-145); eGFR For Non-African Americans 58 (> 60)
[2018-03-18 04:55] LABS: Anisocytosis 1+ (Not Present); Hypochromasia Present (Not Present); Platelet Estimate Normal (Normal)
[2018-03-18] MEDS: *HR* Enoxaparin 80 MG/0.8 ML SYRINGE SQ SCH (05:29)
[2018-03-18 07:05] VITALS: BP 152/64
[2018-03-18] MEDS: Budesonide/Formoterol 80/4.5 MDI IH SCH (07:34)
[2018-03-18] MEDS: Cyanocobalamin (B-12) 1,000 MCG TABLET PO SCH (08:48)
[2018-03-18] MEDS: predniSONE 20 MG TABLET PO SCH (08:48)
[2018-03-18] MEDS: Diltiazem CD (24hr) 120 MG CAPSULE PO SCH (08:48)
[2018-03-18] MEDS: Cholecalciferol (D-3) 1,000 UNIT TABLET PO SCH (08:48)
[2018-03-18] MEDS: Magnesium Oxide 400 MG TABLET PO SCH (08:49)
[2018-03-18] MEDS: Furosemide 20 MG TABLET PO SCH (08:49)
[2018-03-18] MEDS: Ascorbic Acid 500 MG TABLET PO SCH (08:49)
[2018-03-18] MEDS: Fluorometholone OPTH 5 ML BOTTLE LEFT EYE SCH (08:50)
--- NOTE | 2018-03-18 08:54 | Discharge Summary ---
<Omari Salas - Last Filed: 03/18/18 13:06> - NOTES TO OUTPATIENT PROVIDER Notes to Outpatient Provider: Pt is to resume Coumadin upon discharge and will given Lovenox injections for 5 days as her INR was 1.4. She checks her INR at home on Sunday and will report to her doctor to see if she should continue the Lovenox past . Will give her 3 more days of Prednisone for her COPD. Orders not resulted at time of discharge: Pending orders 03/15/18 13:10 EKG [ECG 12 lead ECG] [ECG] Stat Date of Encounter: 03/18/18 Time of Encounter: 08:49 - Discharge Diagnosis (1) Atrial fibrillation with rapid ventricular response Priority: Primary Status: Acute (2) COPD (chronic obstructive pulmonary disease) Priority: Secondary Status: Chronic Qualifiers: COPD type: unspecified COPD Qualified Code(s): J44.9 - Chronic obstructive pulmonary disease, unspecified (3) Hypertension Priority: Secondary Status: Chronic Qualifiers: Hypertension type: essential hypertension Qualified Code(s): I10 - Essential (primary) hypertension (4) Chronic anticoagulation Priority: Secondary Status: Chronic (5) Morbid obesity Priority: Secondary Status: Chronic Hospital course: Ms. Guevara is a 67 year old female with history of paroxysmal atrial fibrillation has had multiple cardioversion about 5 times in the past, hypertension, COPD, morbid obesity, chronic anticoagulation and hypothyroidism. Patient was in the hospital today visited and developed palpitation and shortness of breath therefore was brought into the emergency room she was in atrial fibrillation rate 140 started on Cardizem drip. Her heart rate did decrease down to low 100s and she was transitioned to PO cardizem and restarted on her Rhythmol per cardiology. She underwent successful ZOILA/Cardioversion on and was instructed to resume her Coumadin as she held it in anticipation of an eye surgery last week. Her INR was 1.4 upon day of discharge, which it had been increasing steadily each day after she restarted. She will be going on Lovenox injections and will draw her INR Sunday and depending if she is still subtherapeutic, continue her Lovenox shots for 2 additional days. She also had some wheezing and increased cough and will be given 3 more days of steroids to complete 5 day course. Discharge discussed with: patient, nurse - Time Spent with Patient Total time spent providing and/or coordinating discharge services: Greater than 30 minutes - Discharge Medications Prescriptions: Enoxaparin [Lovenox] 160 mg SQ Q12HR #20 syringe predniSONE [PredniSONE] 40 mg PO DAILY #6 tablet Home Medications: Alendronate Sodium [Fosamax] 70 mg PO WE 10/28/15 [History] Ascorbate Calcium [Vitamin C] 500 mg PO DAILY 10/28/15 [History] Cyanocobalamin (Vitamin B-12) [Vitamin B-12] 100 mcg PO DAILY 10/28/15 [History] Tiotropium [Spiriva] 2 puff PO HS 10/28/15 [History] Warfarin [Coumadin] 5 mg PO SUTUTHFRSA 10/28/15 [History] Dexlansoprazole [Dexilant] 60 mg PO DAILY 07/03/16 [History] Ferrous Sulfate [Iron] 325 mg PO DAILY 07/03/16 [History] Albuterol Sulfate [Proventil Hfa] 2 puff IH Q4H PRN 09/14/16 [History] Oxygen 3 l IH AD 10/24/16 [History] Fluticasone/Salmeterol [Advair 250-50 Diskus] 1 puff IH BID #1 blst.w.dev [Rx] Montelukast [Singulair] 10 mg PO DAILY 11/29/16 [History] Ropinirole HCl [Requip] 2 mg PO HS 11/29/16 [History] Magnesium Oxide [Mag-Ox] 400 mg PO DAILY #30 tablet 12/04/16 [Rx] Furosemide [Lasix] 20 mg PO BID #60 01/11/17 [Rx] Calcium Carbonate [Calcium] 600 mg PO BID 05/08/17 [History] Fluorometholone [Fml Forte] 1 drop LEFT EYE QID 05/08/17 [History] Diltiazem CD (24hr) [Cardizem CD] 120 mg PO DAILY cap.er.24h 05/21/17 [Rx] Acetaminophen/Diphenhydramine [Percogesic 325-12.5 mg Tablet] 1 - 2 tab PO HS PRN 07/19/17 [History] DiphenhydraMINE [Benadryl] 25 mg PO HS PRN capsule 07/23/17 [Rx] Cholecalciferol (D-3) [Vitamin D] 5,000 unit PO DAILY 03/14/18 [History] Lisinopril 2.5 mg PO BID 03/14/18 [History] Warfarin [Coumadin] 7.5 mg PO MOWE 03/14/18 [History] Enoxaparin [Lovenox] 160 mg SQ Q12HR #20 syringe 03/18/18 [Rx] Propafenone HCl [Propafenone HCl ER] 225 mg PO Q12H #0 03/18/18 [Rx] predniSONE [PredniSONE] 40 mg PO DAILY #6 tablet 03/18/18 [Rx] Allergies/Adverse Reactions: 3 Allergy/AdvReac Type Severity Reaction Status Date / Time aspirin [ASA] Allergy Difficulty Verified 03/14/18 13:43 Breathing Penicillins Allergy Hives Verified 03/14/18 13:43 Sulfa (Sulfonamide Allergy Rash Verified 03/14/18 13:43 Antibiotics) Date of admission: 03/14/18 18:34 Primary care physician: Lisbet Ray CNP Discharging clinician: Omari Salas Anticipated date of discharge: 03/18/18 - Constitutional Vitals: Temp Pulse Resp BP Pulse Ox 98.1 F 73 18 152/64 99 03/18/18 07:03 03/18/18 07:03 03/18/18 07:03 03/18/18 07:03 03/18/18 07:03 General appearance: Present: cooperative, pleasant, no acute distress, answers questions appropriately Exam: patient was asleep upon entering room but easily arousable - Head Head exam: Present: atraumatic, normocephalic - Eye Eye exam: Present: PERRL, conjuntiva pink, sclera anicteric - Neck Neck exam general surgery: Present: supple, trachea midline. Absent: lymphadenopathy - Respiratory Respiratory exam: Present: wheezes (faint). Absent: accessory muscle use, rales , rhonchi - Cardiovascular Cardiovascular exam: Present: RRR, +S1, +S2. Absent: diastolic murmur, gallop, rubs, systolic murmur - GI/Abdominal GI/Abdominal exam: Present: normal bowel sounds, soft, no peritoneal signs. Absent: distended, tenderness - Extremities Exam Extremities exam: Present: pedal edema, warm, radial pulses palpable and symmetrical. Absent: calf tenderness, cyanotic - Neurological Exam Neurological exam: Present: alert, no focal deficits. Absent: facial droop, speech deficit - Skin Skin exam: Present: dry, intact - Patient Status Disposition: Home, Self-Care Condition: Fair Functional capacity at discharge: independent ambulation Overall status at discharge: patient is progressing back to baseline - Discharge Instructions Instructions: Prednisone (By mouth), Warfarin (By mouth), Enoxaparin (Injection ), Atrial Fibrillation (DC) Follow Up With: Lisbet Ray CNP [Primary Care Provider] - 03/19/18 2:15 pm Additional Instructions: Please follow up with your PCP within 1 week. Check your INR Wednesdays and continue to take Lovenox shots for 2 more days if INR < 2.0 - Diet and Activity Activity: increase activity as tolerated, wear oxygen at all times Diet: low fat, low cholesterol <[email or web address] - Last Filed: 03/18/18 15:25> Orders not resulted at time of discharge: Pending orders 03/19/18 04:00 INR/PT [Prothrombin Time INR] [COAG] AM 0400 03/20/18 04:00 INR/PT [Prothrombin Time INR] [COAG] AM 0400 Date of Encounter: 03/18/18 Hospital course: Ms. Guevara is a 67 year old female - Time Spent with Patient Total time spent providing and/or coordinating discharge services: Date of admission: 03/14/18 18:34 Primary care physician: Lisbet Ray CNP - Constitutional Vitals: Temp Pulse Resp BP Pulse Ox 98.1 F 73 18 152/64 99 03/18/18 07:03 03/18/18 07:03 03/18/18 07:03 03/18/18 07:03 03/18/18 07:03 - Attending Attestation I examined this patient and my medical decision-making was reviewed with the Resident Physician Dr. Salas. I agree with the documented findings, disposition and treatment plan as described except to the extent set forth below. Ms. Guevara is a 67 year old female with known history of paroxysmal atrial fibrillation has had multiple cardioversion about 5 times in the past, hypertension, COPD, morbid obesity, chronic anticoagulation and hypothyroidism pt presented to ER with palpitation and shortness of breath. She was in atrial fibrillation with RVR. Pt was admitted in the hospital and started on Cardizem gtt later switched to PO Cardizem. Pt had cardiversion on 03/15/18, now she is in NSR. Gen: A, A, O x 3 Chest: Diminished BS b/l, mild wheezing Heart: S1S2+ Afib a/p 1. Acute afib with RVR s/p cardioversion on Rhythmol and pO cardizem Talked to Card recommend to continue Rhythmol and Cardizem on Coumadin for anti coag..INR still sub therapeutic.. Cont bridging with Lovenox SQ 2. Acute reactive airway disease / broncho spasm switched to PO steroids Duoneb Medically stable to d/c home today
--- NOTE | 2018-03-18 16:35 | Electrocardiograph Report ---
[address] [place] [address] Test Date: 2018-03-15 Pat Name: Alyssa Guevara Department: 111 Room: 2NE23 Gender: F [employer] Dispatcher: : [id number] Requested By: Taniya Cedillo Order Number: [id number] Reading MD: Taniya Cedillo Measurements Intervals [place] Rate: 115 P: [place]: 0 QRS: 50 QRSD: 88 T: 6 QT: 300 QTc: 368 Interpretive Statements ATRIAL FIBRILLATION WITH RAPID VENTRICULAR RESPONSE LOW QRS VOLTAGE IN PRECORDIAL LEADS POSSIBLE RIGHT VENTRICULAR CONDUCTION DELAY MODERATE ST DEPRESSION Electronically Signed On 03-18-2018 16:33:34 EDT by Taniya Cedillo
[2018-03-18] MEDS ORDERED: *HR* Warfarin 7.5 MG TABLET PO ONE (18:00)
[2018-03-18] MEDS ORDERED: *HR* Warfarin 5 MG TABLET PO SCH (18:00)
[2018-03-20] MEDS ORDERED: (Alendronate Sodium [Fosamax] 70 MG) PO SCH (06:30)
== END 2018-03-18 16:01 | disposition home or self-care (01) | DRG 308 ==
LOC: 2NENU 12:39 → EMEROO 12:39 → 2NENU 16:13
PROVIDERS: ADMIT Internal Medicine Cardiovascular Disease; ATTEND Internal Medicine Cardiovascular Disease

== ENCOUNTER 2018-04-03 12:11 | Inpatient (IN) ==
[2018-04-03] MEDS ORDERED: Ipratropium/Albuterol Neb 3 ML IH ONE (12:27)
--- NOTE | 2018-04-03 12:38 | Emergency Department Note ---
Disposition Clinical Impression: Dyspnea Qualifiers: Dyspnea type: other forms of dyspnea Qualified Code(s): R06.09 - Other forms of dyspnea Disposition: Admitted As Inpatient Condition: Good General Adult HPI - General Chief complaint: ED Shortness of Breath/Dyspnea Stated complaint: difficulty breathing Time Seen by Provider: 04/03/18 12:33 Source: patient Limitations: no limitations - History of Present Illness Pain Scale: 0 - Related Data Home Medications Medication Instructions Recorded Confirmed Alendronate Sodium [Fosamax] 70 mg PO WE 10/28/15 04/03/18 Ascorbate Calcium [Vitamin C] 500 mg PO DAILY 10/28/15 04/03/18 Cyanocobalamin (Vitamin B-12) 100 mcg PO DAILY 10/28/15 04/03/18 [Vitamin B-12] Tiotropium [Spiriva] 2 puff PO HS 10/28/15 04/03/18 Dexlansoprazole [Dexilant] 60 mg PO DAILY 07/03/16 04/03/18 Ferrous Sulfate [Iron] 325 mg PO DAILY 07/03/16 04/03/18 Albuterol Sulfate [Proventil Hfa] 2 puff IH Q4H PRN 09/14/16 04/03/18 Oxygen 3 l IH AD 10/24/16 04/03/18 Montelukast [Singulair] 10 mg PO DAILY 11/29/16 04/03/18 Ropinirole HCl [Requip] 2 mg PO HS 11/29/16 04/03/18 Calcium Carbonate [Calcium] 600 mg PO BID 05/08/17 04/03/18 Fluorometholone [Fml Forte] 1 drop LEFT EYE QID 05/08/17 04/03/18 Acetaminophen/Diphenhydramine 1 - 2 tab PO HS PRN 07/19/17 04/03/18 [Percogesic 325-12.5 mg Tablet] Cholecalciferol (D-3) [Vitamin D] 5,000 unit PO DAILY 03/14/18 04/03/18 Lisinopril 2.5 mg PO BID 03/14/18 04/03/18 Propafenone HCl [Propafenone HCl 225 mg PO Q12H 04/03/18 04/04/18 ER] Previous Rx's Medication Instructions Recorded Fluticasone/Salmeterol [Advair 1 puff IH BID #1 blst.w.dev 11/16/16 250-50 Diskus] Magnesium Oxide [Mag-Ox] 400 mg PO DAILY #30 tablet 12/04/16 Furosemide [Lasix] 20 mg PO BID #60 01/11/17 Diltiazem CD (24hr) [Cardizem CD] 120 mg PO DAILY cap.er.24h 05/21/17 DiphenhydraMINE [Benadryl] 25 mg PO HS PRN capsule 07/23/17 Clopidogrel [Plavix] 75 mg PO DAILY 30 Days #30 tablet 04/11/18 Furosemide [Lasix] 40 mg PO BID 7 Days #14 tablet 04/11/18 Allergies Allergy/AdvReac Type Severity Reaction Status Date / Time aspirin [ASA] Allergy Difficulty Verified 03/14/18 13:43 Breathing Penicillins Allergy Hives Verified 03/14/18 13:43 Sulfa (Sulfonamide Allergy Rash Verified 03/14/18 13:43 Antibiotics) Past Medical History - Past Medical History Medical history: Reports: asthma, atrial fibrillation, CHF, COPD, GERD, hypertension, migraine Surgical history: Reports: cholecystectomy, hysterectomy Psychiatric history: Reports: no psych history [employer] LEADER history: Reports: no [employer] LEADER history - Social History Smoking Status: Former smoker Smokeless Tobacco Status: No Alcohol use: Reports: none Drug use: Reports: none Physical Exam - General Limitations: no limitations General appearance: alert, in no apparent distress Course Vital Signs Temperature 98.3 F 04/03/18 12:12 Pulse Rate 88 04/03/18 12:12 Respiratory Rate 24 04/03/18 12:12 Blood Pressure 169/66 04/03/18 12:12 O2 Sat by Pulse Oximetry 98 04/03/18 12:12 Temperature 98.3 F 04/11/18 11:30 Pulse Rate 80 04/11/18 11:30 Respiratory Rate 19 04/11/18 11:30 Blood Pressure 164/80 04/11/18 11:30 O2 Sat by Pulse Oximetry 100 04/11/18 11:30 Oxygen Delivery Oxygen Delivery Nasal Cannula Medical Decision Making - Lab Data Result diagrams: 04/11/18 08:38 04/11/18 08:38 Lab Results 04/03/18 04/03/18 04/03/18 Range/Units 12:45 12:45 12:45 WBC 8.0 (4.3-11.1) K/mcL RBC 3.24 L (3.82-4.97) M/mcL Hgb 7.3 L (11.5-15.4) g/dL Hct 27.6 L (35.3-44.9) % MCV 85.2 (83.0-100.0) fL MCH 22.5 L (28.0-33.3) pg MCHC 26.4 L (31.6-35.5) g/dL RDW 16.3 H (11.5-14.5) % Plt Count 187 (140-400) K/mcL MPV 11.1 (9.4-12.4) fL Immature Gran % 1.1 (0-4) % Seg Neutrophils % 79.6 % Lymphocytes % 9.2 % Monocytes % 8.7 % Eosinophils % 1.2 % Basophils % 0.2 % Neutrophils # 6.4 (1.6-8.9) K/mcL Lymphocytes # 0.7 (0.6-4.6) K/mcL Monocytes # 0.7 (0.0-1.3) K/mcL Eosinophils # 0.1 (0.0-0.6) K/mcL Basophils # 0.0 (0.0-0.2) K/mcL Nucleated RBCs/100 WBC (0) /100 WBC Platelet Estimate Normal (Normal) Polychromasia (Not Present) Hypochromasia Present A (Not Present) Anisocytosis 1+ A (Not Present) PT (9.4-12.1) Seconds INR APTT (26.0-36.0) Seconds Sodium 140 (136-145) mEq/L Potassium 5.2 H (3.5-5.1) mEq/L Chloride 95 L (98-107) mEq/L Carbon Dioxide 40 H* (23-29) mEq/L BUN 27 H (8-23) mg/dL Creatinine 0.79 (0.60-1.20) mg/dL Est GFR ( Amer) > 60 (> 60) Est GFR (Non-Af Amer) > 60 (> 60) BUN/Creatinine Ratio 34 H (6-26) Glucose 136 H (70-105) mg/dL Calculated Osmolality 297 (280-300) Calcium 9.0 (8.6-10.3) mg/dL Iron (50-170) mcg/dL % Saturation (15-50) % Transferrin (203-362) mg/dL Ferritin (10-120) ng/mL Total Bilirubin (0.3-1.0) mg/dL AST (13-39) Units/L ALT (7-52) Units/L Alkaline Phosphatase (34-104) Units/L Troponin I (< 0.04) ng/mL B-Natriuretic Peptide 44 (Less than 100) pg/mL Serum Total Protein (6.4-8.9) g/dL Albumin (3.5-5.7) g/dL Globulin (2.4-3.5) g/dL Albumin/Globulin Ratio (1.1-2.2) Stool Occult Blood (Negative) Blood Type Antibody Screen Crossmatch 04/03/18 04/03/18 04/03/18 Range/Units 12:45 12:45 13:57 WBC (4.3-11.1) K/mcL RBC (3.82-4.97) M/mcL Hgb (11.5-15.4) g/dL Hct (35.3-44.9) % MCV (83.0-100.0) fL MCH (28.0-33.3) pg MCHC (31.6-35.5) g/dL RDW (11.5-14.5) % Plt Count (140-400) K/mcL MPV (9.4-12.4) fL Immature Gran % (0-4) % Seg Neutrophils % % Lymphocytes % % Monocytes % % Eosinophils % % Basophils % % Neutrophils # (1.6-8.9) K/mcL Lymphocytes # (0.6-4.6) K/mcL Monocytes # (0.0-1.3) K/mcL Eosinophils # (0.0-0.6) K/mcL Basophils # (0.0-0.2) K/mcL Nucleated RBCs/100 WBC (0) /100 WBC Platelet Estimate (Normal) Polychromasia (Not Present) Hypochromasia (Not Present) Anisocytosis (Not Present) PT 33.5 H (9.4-12.1) Seconds INR 3.0 APTT 38.0 H (26.0-36.0) Seconds Sodium (136-145) mEq/L Potassium (3.5-5.1) mEq/L Chloride (98-107) mEq/L Carbon Dioxide (23-29) mEq/L BUN (8-23) mg/dL Creatinine (0.60-1.20) mg/dL Est GFR ( Amer) (> 60) Est GFR (Non-Af Amer) (> 60) BUN/Creatinine Ratio (6-26) Glucose (70-105) mg/dL Calculated Osmolality (280-300) Calcium (8.6-10.3) mg/dL Iron (50-170) mcg/dL % Saturation (15-50) % Transferrin (203-362) mg/dL Ferritin (10-120) ng/mL Total Bilirubin (0.3-1.0) mg/dL AST (13-39) Units/L ALT (7-52) Units/L Alkaline Phosphatase (34-104) Units/L Troponin I < 0.03 (< 0.04) ng/mL B-Natriuretic Peptide (Less than 100) pg/mL Serum Total Protein (6.4-8.9) g/dL Albumin (3.5-5.7) g/dL Globulin (2.4-3.5) g/dL Albumin/Globulin Ratio (1.1-2.2) Stool Occult Blood (Negative) Blood Type O POSITIVE Antibody Screen NEGATIVE Crossmatch See Detail 04/04/18 04/04/18 04/04/18 Range/Units 05:45 05:45 09:45 WBC 7.1 (4.3-11.1) K/mcL RBC 3.12 L (3.82-4.97) M/mcL Hgb 6.9 L (11.5-15.4) g/dL Hct 26.5 L (35.3-44.9) % MCV 84.9 (83.0-100.0) fL MCH 22.1 L (28.0-33.3) pg MCHC 26.0 L (31.6-35.5) g/dL RDW 16.2 H (11.5-14.5) % Plt Count 184 (140-400) K/mcL MPV 11.6 (9.4-12.4) fL Immature Gran % 1.1 (0-4) % Seg Neutrophils % 75.3 % Lymphocytes % 12.6 % Monocytes % 9.8 % Eosinophils % 1.1 % Basophils % 0.1 % Neutrophils # 5.4 (1.6-8.9) K/mcL Lymphocytes # 0.9 (0.6-4.6) K/mcL Monocytes # 0.7 (0.0-1.3) K/mcL Eosinophils # 0.1 (0.0-0.6) K/mcL Basophils # 0.0 (0.0-0.2) K/mcL Nucleated RBCs/100 WBC 0.3 H (0) /100 WBC Platelet Estimate Normal (Normal) Polychromasia (Not Present) Hypochromasia Present A (Not Present) Anisocytosis (Not Present) PT (9.4-12.1) Seconds INR APTT (26.0-36.0) Seconds Sodium 141 (136-145) mEq/L Potassium 4.6 (3.5-5.1) mEq/L Chloride 93 L (98-107) mEq/L Carbon Dioxide > 45 H* (23-29) mEq/L BUN 29 H (8-23) mg/dL Creatinine 0.83 (0.60-1.20) mg/dL Est GFR ( Amer) > 60 (> 60) Est GFR (Non-Af Amer) > 60 (> 60) BUN/Creatinine Ratio 35 H (6-26) Glucose 115 H (70-105) mg/dL Calculated Osmolality 299 (280-300) Calcium 9.1 (8.6-10.3) mg/dL Iron (50-170) mcg/dL % Saturation (15-50) % Transferrin (203-362) mg/dL Ferritin (10-120) ng/mL Total Bilirubin (0.3-1.0) mg/dL AST (13-39) Units/L ALT (7-52) Units/L Alkaline Phosphatase (34-104) Units/L Troponin I (< 0.04) ng/mL B-Natriuretic Peptide (Less than 100) pg/mL Serum Total Protein (6.4-8.9) g/dL Albumin (3.5-5.7) g/dL Globulin (2.4-3.5) g/dL Albumin/Globulin Ratio (1.1-2.2) Stool Occult Blood Positive A (Negative) Blood Type Antibody Screen Crossmatch 04/04/18 04/05/18 04/05/18 Range/Units 21:15 03:25 03:25 WBC 7.8 (4.3-11.1) K/mcL RBC 3.59 L (3.82-4.97) M/mcL Hgb 9.5 L D 8.5 L (11.5-15.4) g/dL Hct 34.0 L 30.8 L (35.3-44.9) % MCV 85.8 (83.0-100.0) fL MCH 23.7 L (28.0-33.3) pg MCHC 27.6 L (31.6-35.5) g/dL RDW 16.0 H (11.5-14.5) % Plt Count 166 (140-400) K/mcL MPV 10.4 (9.4-12.4) fL Immature Gran % 1.3 (0-4) % Seg Neutrophils % 79.9 % Lymphocytes % 11.0 % Monocytes % 6.2 % Eosinophils % 1.2 % Basophils % 0.4 % Neutrophils # 6.2 (1.6-8.9) K/mcL Lymphocytes # 0.9 (0.6-4.6) K/mcL Monocytes # 0.5 (0.0-1.3) K/mcL Eosinophils # 0.1 (0.0-0.6) K/mcL Basophils # 0.0 (0.0-0.2) K/mcL Nucleated RBCs/100 WBC 0.3 H (0) /100 WBC Platelet Estimate Normal (Normal) Polychromasia 2+ A (Not Present) Hypochromasia Present A (Not Present) Anisocytosis (Not Present) PT (9.4-12.1) Seconds INR APTT (26.0-36.0) Seconds Sodium 144 (136-145) mEq/L Potassium 4.4 (3.5-5.1) mEq/L Chloride 89 L (98-107) mEq/L Carbon Dioxide > 45 H* (23-29) mEq/L BUN 31 H (8-23) mg/dL Creatinine 0.87 (0.60-1.20) mg/dL Est GFR ( Amer) > 60 (> 60) Est GFR (Non-Af Amer) > 60 (> 60) BUN/Creatinine Ratio 36 H (6-26) Glucose 199 H (70-105) mg/dL Calculated Osmolality 310 H (280-300) Calcium 9.0 (8.6-10.3) mg/dL Iron (50-170) mcg/dL % Saturation (15-50) % Transferrin (203-362) mg/dL Ferritin (10-120) ng/mL Total Bilirubin 0.3 (0.3-1.0) mg/dL AST 13 (13-39) Units/L ALT 20 (7-52) Units/L Alkaline Phosphatase 62 (34-104) Units/L Troponin I (< 0.04) ng/mL B-Natriuretic Peptide (Less than 100) pg/mL Serum Total Protein 6.1 L (6.4-8.9) g/dL Albumin 3.7 (3.5-5.7) g/dL Globulin 2.4 (2.4-3.5) g/dL Albumin/Globulin Ratio 1.5 (1.1-2.2) Stool Occult Blood (Negative) Blood Type Antibody Screen Crossmatch 04/05/18 04/06/18 04/06/18 Range/Units 09:15 04:00 04:00 WBC 7.2 (4.3-11.1) K/mcL RBC 3.80 L (3.82-4.97) M/mcL Hgb 9.4 L 8.9 L (11.5-15.4) g/dL Hct 33.7 L 32.8 L (35.3-44.9) % MCV 86.3 (83.0-100.0) fL MCH 23.4 L (28.0-33.3) pg MCHC 27.1 L (31.6-35.5) g/dL RDW 16.6 H (11.5-14.5) % Plt Count 197 (140-400) K/mcL MPV 10.9 (9.4-12.4) fL Immature Gran % 0.8 (0-4) % Seg Neutrophils % 74.1 % Lymphocytes % 13.2 % Monocytes % 9.9 % Eosinophils % 1.7 % Basophils % 0.3 % Neutrophils # 5.3 (1.6-8.9) K/mcL Lymphocytes # 1.0 (0.6-4.6) K/mcL Monocytes # 0.7 (0.0-1.3) K/mcL Eosinophils # 0.1 (0.0-0.6) K/mcL Basophils # 0.0 (0.0-0.2) K/mcL Nucleated RBCs/100 WBC (0) /100 WBC Platelet Estimate Normal (Normal) Polychromasia (Not Present) Hypochromasia Present A (Not Present) Anisocytosis 1+ A (Not Present) PT (9.4-12.1) Seconds INR APTT (26.0-36.0) Seconds Sodium 141 (136-145) mEq/L Potassium 4.5 (3.5-5.1) mEq/L Chloride 91 L (98-107) mEq/L Carbon Dioxide > 45 H* (23-29) mEq/L BUN 20 (8-23) mg/dL Creatinine 0.78 (0.60-1.20) mg/dL Est GFR ( Amer) > 60 (> 60) Est GFR (Non-Af Amer) > 60 (> 60) BUN/Creatinine Ratio 26 (6-26) Glucose 111 H (70-105) mg/dL Calculated Osmolality 295 (280-300) Calcium 9.2 (8.6-10.3) mg/dL Iron 42 L (50-170) mcg/dL % Saturation 9 L (15-50) % Transferrin 334 (203-362) mg/dL Ferritin 59 (10-120) ng/mL Total Bilirubin 0.5 (0.3-1.0) mg/dL AST 15 (13-39) Units/L ALT 20 (7-52) Units/L Alkaline Phosphatase 65 (34-104) Units/L Troponin I (< 0.04) ng/mL B-Natriuretic Peptide (Less than 100) pg/mL Serum Total Protein 6.2 L (6.4-8.9) g/dL Albumin 3.8 (3.5-5.7) g/dL Globulin 2.4 (2.4-3.5) g/dL Albumin/Globulin Ratio 1.6 (1.1-2.2) Stool Occult Blood (Negative) Blood Type Antibody Screen Crossmatch 04/06/18 Range/Units 08:22 WBC (4.3-11.1) K/mcL RBC (3.82-4.97) M/mcL Hgb (11.5-15.4) g/dL Hct (35.3-44.9) % MCV (83.0-100.0) fL MCH (28.0-33.3) pg MCHC (31.6-35.5) g/dL RDW (11.5-14.5) % Plt Count (140-400) K/mcL MPV (9.4-12.4) fL Immature Gran % (0-4) % Seg Neutrophils % % Lymphocytes % % Monocytes % % Eosinophils % % Basophils % % Neutrophils # (1.6-8.9) K/mcL Lymphocytes # (0.6-4.6) K/mcL Monocytes # (0.0-1.3) K/mcL Eosinophils # (0.0-0.6) K/mcL Basophils # (0.0-0.2) K/mcL Nucleated RBCs/100 WBC (0) /100 WBC Platelet Estimate (Normal) Polychromasia (Not Present) Hypochromasia (Not Present) Anisocytosis (Not Present) PT 17.6 H (9.4-12.1) Seconds INR 1.6 APTT (26.0-36.0) Seconds Sodium (136-145) mEq/L Potassium (3.5-5.1) mEq/L Chloride (98-107) mEq/L Carbon Dioxide (23-29) mEq/L BUN (8-23) mg/dL Creatinine (0.60-1.20) mg/dL Est GFR ( Amer) (> 60) Est GFR (Non-Af Amer) (> 60) BUN/Creatinine Ratio (6-26) Glucose (70-105) mg/dL Calculated Osmolality (280-300) Calcium (8.6-10.3) mg/dL Iron (50-170) mcg/dL % Saturation (15-50) % Transferrin (203-362) mg/dL Ferritin (10-120) ng/mL Total Bilirubin (0.3-1.0) mg/dL AST (13-39) Units/L ALT (7-52) Units/L Alkaline Phosphatase (34-104) Units/L Troponin I (< 0.04) ng/mL B-Natriuretic Peptide (Less than 100) pg/mL Serum Total Protein (6.4-8.9) g/dL Albumin (3.5-5.7) g/dL Globulin (2.4-3.5) g/dL Albumin/Globulin Ratio (1.1-2.2) Stool Occult Blood (Negative) Blood Type Antibody Screen Crossmatch Attestation Statement - Attestation Attestation: I examined this patient and my medical decision-making was reviewed with the Resident Physician. I agree with the documented findings, disposition and treatment plan as described except to the extent set forth below. Findings consistent with chf exacerbation, will get cxr, bnp, basic labs, proceed with diuresis, admission for chf exacerbation.
--- NOTE | 2018-04-03 12:40 | Emergency Department Note ---
Disposition Clinical Impression: Dyspnea Qualifiers: Dyspnea type: dyspnea on exertion Qualified Code(s): R06.09 - Other forms of dyspnea Disposition: Admitted As Inpatient Condition: Fair General Adult HPI - General Chief complaint: ED Shortness of Breath/Dyspnea Stated complaint: difficulty breathing Time Seen by Provider: 04/03/18 12:33 Source: patient Mode of arrival: EMS Limitations: no limitations Nursing Notes Reviewed: Yes Vital Signs Reviewed: Yes - History of Present Illness HPI Narrative: Patient is a 67-year-old female presenting with dyspnea. Patient has past medical history significant for COPD, CHF, recent cardioversion by Dr. Cedillo. Patient states that she had a electrical cardioversion performed 2 weeks ago for her history of atrial fibrillation, since this time she has had persistent and progressively worsening dyspnea that is exacerbated by any type of exertion. She is currently on 4 L at home nasal cannula, however has had to titrate this up to 6 L, and with any type of exertion and has had to titrate up to 9 L. Patient denies any recent fevers or chills however has had cough, no production. She has been taking her medication as prescribed at home. She denies any chest pain or discomfort. She has noticed increased lurks or any swelling, states that her base weight is 342, however currently her weight is 350. Patient denies abdominal pain, nausea, vomiting. Pain Scale: 0 - Related Data Home Medications Medication Instructions Recorded Confirmed Alendronate Sodium [Fosamax] 70 mg PO WE 10/28/15 03/14/18 Ascorbate Calcium [Vitamin C] 500 mg PO DAILY 10/28/15 03/14/18 Cyanocobalamin (Vitamin B-12) 100 mcg PO DAILY 10/28/15 03/14/18 [Vitamin B-12] Tiotropium [Spiriva] 2 puff PO HS 10/28/15 03/14/18 Warfarin [Coumadin] 5 mg PO SUTUTHFRSA 10/28/15 03/14/18 Dexlansoprazole [Dexilant] 60 mg PO DAILY 07/03/16 03/14/18 Ferrous Sulfate [Iron] 325 mg PO DAILY 07/03/16 03/14/18 Albuterol Sulfate [Proventil Hfa] 2 puff IH Q4H PRN 09/14/16 03/14/18 Oxygen 3 l IH AD 10/24/16 03/14/18 Montelukast [Singulair] 10 mg PO DAILY 11/29/16 03/14/18 Ropinirole HCl [Requip] 2 mg PO HS 11/29/16 03/14/18 Calcium Carbonate [Calcium] 600 mg PO BID 05/08/17 03/14/18 Fluorometholone [Fml Forte] 1 drop LEFT EYE QID 05/08/17 03/14/18 Acetaminophen/Diphenhydramine 1 - 2 tab PO HS PRN 07/19/17 03/14/18 [Percogesic 325-12.5 mg Tablet] Cholecalciferol (D-3) [Vitamin D] 5,000 unit PO DAILY 03/14/18 03/14/18 Lisinopril 2.5 mg PO BID 03/14/18 03/14/18 Warfarin [Coumadin] 7.5 mg PO MOWE 03/14/18 03/14/18 Propafenone HCl [Propafenone HCl 325 mg PO Q12H 04/03/18 04/03/18 ER] Previous Rx's Medication Instructions Recorded Fluticasone/Salmeterol [Advair 1 puff IH BID #1 blst.w.dev 11/16/16 250-50 Diskus] Magnesium Oxide [Mag-Ox] 400 mg PO DAILY #30 tablet 12/04/16 Furosemide [Lasix] 20 mg PO BID #60 01/11/17 Diltiazem CD (24hr) [Cardizem CD] 120 mg PO DAILY cap.er.24h 05/21/17 DiphenhydraMINE [Benadryl] 25 mg PO HS PRN capsule 07/23/17 Allergies Allergy/AdvReac Type Severity Reaction Status Date / Time aspirin [ASA] Allergy Difficulty Verified 03/14/18 13:43 Breathing Penicillins Allergy Hives Verified 03/14/18 13:43 Sulfa (Sulfonamide Allergy Rash Verified 03/14/18 13:43 Antibiotics) All systems ED: reviewed and negative except as stated. Review of Systems: As Per HPI Constitutional: Reports: chills. Denies: fever, weakness ENT ED: Denies: congestion Cardiovascular: Reports: dyspnea on exertion, orthopnea, edema, paroxysmal nocturnal dyspnea. Denies: chest pain, palpitations, syncope Respiratory: Reports: cough, dyspnea, wheezes. Denies: hemoptysis, sputum production Gastrointestinal: Denies: abdominal pain, nausea, vomiting, diarrhea, constipation, hematemesis Genitourinary: Denies: urgency, dysuria Musculoskeletal: Denies: back pain Integumentary: Denies: rash Neurological: Denies: headache, weakness, numbness, paresthesias, confusion Endocrine: Reports: fatigue (Generalized) Past Medical History - Past Medical History Medical history: Reports: asthma, atrial fibrillation, CHF, COPD, GERD, hypertension, migraine Surgical history: Reports: cholecystectomy, hysterectomy Psychiatric history: Reports: no psych history SCIENTIFIC INFORMATICS LEADER history: Reports: no SCIENTIFIC INFORMATICS LEADER history - Social History Smoking Status: Former smoker Smokeless Tobacco Status: No Alcohol use: Reports: none Drug use: Reports: none Physical Exam - General Limitations: no limitations General appearance: alert, in no apparent distress - Head Head exam: atraumatic, normocephalic - Eye Eye exam: Present: normal appearance, PERRL, EOMI - ENT ENT exam: normal exam, normal oropharynx, mucous membranes moist - Neck Neck exam: Present: normal inspection - Chest Chest inspection: Present: normal inspection, symmetric chest wall rise - Respiratory Respiratory exam: Present: wheezes (Minimal throughout, decreased breath sounds throughout, crackles to the bases) - Cardiovascular Cardiovascular exam: Present: regular rate, normal rhythm - Abdominal Exam Abdominal exam: Present: soft, Non-Tender, normal bowel sounds. Absent: distention, guarding, rebound, rigidity - Extremities Exam Extremities exam: Present: normal capillary refill, pedal edema (2-3+BL LE ). Absent: calf tenderness - Back Exam Back exam: Present: normal inspection. Absent: muscle spasm, vertebral tenderness - Neurological Exam Neurological exam: Present: alert, oriented X3, CN II-XII intact - Psychiatric Psychiatric exam: Present: normal affect, normal mood - Skin Skin exam: Present: warm, dry, intact Course Course Narrative: We will order a chest x-ray, BNP, troponin, BMP, CBC, PT, PTT. Vital Signs Temperature 98.3 F 04/03/18 12:12 Pulse Rate 88 04/03/18 12:12 Respiratory Rate 24 04/03/18 12:12 Blood Pressure 169/66 04/03/18 12:12 O2 Sat by Pulse Oximetry 98 04/03/18 12:12 Temperature 98.3 F 04/03/18 12:12 Pulse Rate 88 04/03/18 12:12 Respiratory Rate 20 04/03/18 12:27 Blood Pressure 169/66 04/03/18 12:12 O2 Sat by Pulse Oximetry 94 04/03/18 12:27 Oxygen Delivery Oxygen Delivery Nasal Cannula Medical Decision Making - MDM Narrative Medical decision making narrative: Patient's is a 67-year-old female presenting with dyspnea. Workup in the emergency department revealed a CBC showing hemoglobin is below baseline at 7.3 , no leukocytosis noted. Troponin is negative, BNP is within normal limits, potassium is slightly elevated at 5.3, and carbon dioxide elevated at 40, however seems to be at patient's baseline. Chest x-ray revealed cardiomegaly with pulmonary vascular congestion and small bilateral pleural effusions. Also noted increasing bibasilar opacities which could represent atelectasis or infiltrate. Differential diagnosis included COPD exacerbation and CHF exacerbation. CHF exacerbation is most likely. Patient has remained stable while here in the emergency department, pulse ox has remained stable around 95% , vitals have remained stable. At this point in time the patient is recommended to be hospitalized with heart failure exacerbation. Spoke with hospitalist and patient has been accepted for further evaluation. - Medical Records Medical records reviewed: Yes I reviewed the patient's medical records. - Lab Data Lab results reviewed: Yes I reviewed the patient's lab results. Result diagrams: 04/03/18 12:45 04/03/18 12:45 Lab Results 04/03/18 04/03/18 04/03/18 Range/Units 12:45 12:45 12:45 WBC 8.0 (4.3-11.1) K/mcL RBC 3.24 L (3.82-4.97) M/mcL Hgb 7.3 L (11.5-15.4) g/dL Hct 27.6 L (35.3-44.9) % MCV 85.2 (83.0-100.0) fL MCH 22.5 L (28.0-33.3) pg MCHC 26.4 L (31.6-35.5) g/dL RDW 16.3 H (11.5-14.5) % Plt Count 187 (140-400) K/mcL MPV 11.1 (9.4-12.4) fL Immature Gran % 1.1 (0-4) % Seg Neutrophils % 79.6 % Lymphocytes % 9.2 % Monocytes % 8.7 % Eosinophils % 1.2 % Basophils % 0.2 % Neutrophils # 6.4 (1.6-8.9) K/mcL Lymphocytes # 0.7 (0.6-4.6) K/mcL Monocytes # 0.7 (0.0-1.3) K/mcL Eosinophils # 0.1 (0.0-0.6) K/mcL Basophils # 0.0 (0.0-0.2) K/mcL Platelet Estimate Normal (Normal) Hypochromasia Present A (Not Present) Anisocytosis 1+ A (Not Present) PT (9.4-12.1) Seconds INR APTT (26.0-36.0) Seconds Sodium 140 (136-145) mEq/L Potassium 5.2 H (3.5-5.1) mEq/L Chloride 95 L (98-107) mEq/L Carbon Dioxide 40 H* (23-29) mEq/L BUN 27 H (8-23) mg/dL Creatinine 0.79 (0.60-1.20) mg/dL Est GFR ( Amer) > 60 (> 60) Est GFR (Non-Af Amer) > 60 (> 60) BUN/Creatinine Ratio 34 H (6-26) Glucose 136 H (70-105) mg/dL Calculated Osmolality 297 (280-300) Calcium 9.0 (8.6-10.3) mg/dL Troponin I (< 0.04) ng/mL B-Natriuretic Peptide 44 (Less than 100) pg/mL 04/03/18 04/03/18 Range/Units 12:45 12:45 WBC (4.3-11.1) K/mcL RBC (3.82-4.97) M/mcL Hgb (11.5-15.4) g/dL Hct (35.3-44.9) % MCV (83.0-100.0) fL MCH (28.0-33.3) pg MCHC (31.6-35.5) g/dL RDW (11.5-14.5) % Plt Count (140-400) K/mcL MPV (9.4-12.4) fL Immature Gran % (0-4) % Seg Neutrophils % % Lymphocytes % % Monocytes % % Eosinophils % % Basophils % % Neutrophils # (1.6-8.9) K/mcL Lymphocytes # (0.6-4.6) K/mcL Monocytes # (0.0-1.3) K/mcL Eosinophils # (0.0-0.6) K/mcL Basophils # (0.0-0.2) K/mcL Platelet Estimate (Normal) Hypochromasia (Not Present) Anisocytosis (Not Present) PT 33.5 H (9.4-12.1) Seconds INR 3.0 APTT 38.0 H (26.0-36.0) Seconds Sodium (136-145) mEq/L Potassium (3.5-5.1) mEq/L Chloride (98-107) mEq/L Carbon Dioxide (23-29) mEq/L BUN (8-23) mg/dL Creatinine (0.60-1.20) mg/dL Est GFR ( Amer) (> 60) Est GFR (Non-Af Amer) (> 60) BUN/Creatinine Ratio (6-26) Glucose (70-105) mg/dL Calculated Osmolality (280-300) Calcium (8.6-10.3) mg/dL Troponin I < 0.03 (< 0.04) ng/mL B-Natriuretic Peptide (Less than 100) pg/mL - Radiology Data Radiology results reviewed: Yes I reviewed the patient's radiology results. Chest X-Ray 04/03/18 12:28 IMPRESSION: Cardiomegaly with pulmonary vascular congestion and small bilateral pleural effusions. Increasing bibasilar opacities, which could represent atelectasis or infiltrates. D/ / Vivek Keita MD / Vivek Keita MD Interpreting Provider: Vivek Keita MD - EKG Data EKG #1 EKG attestation: Yes I reviewed and interpreted this EKG. EKG results narrative: EKG performed on 04/03/2018 at 1302 patient appears to be in sinus rhythm with a heart rate of 84 bpm, regular rhythm, normal axis, incomplete EKG missing a few segments of the V5 for V6, however TN interval 184, QRS duration 86, QT at 319, QTC 360, nonspecific T-wave changes, no acute ischemic changes noted. Gita - Gita Situation: Demographics, MOA Background: Presenting Complaint, Relevant PMH, Meds, & Allergies Assessment: Vital Signs, Course and respsone to treatment, Pertinant Lab Results Recommendation: Recommendation based on pending studies, treatments, or consults Gita Report Given to: Hospitalist Gita Repor Time: 14:06 (accepted)
[2018-04-03] MEDS ORDERED: Ipratropium/Albuterol Neb 3 ML ONE (13:09)
[2018-04-03 13:12] LABS: Basophils % 0.2 %; Immature Granulocytes % 1.1 % (0-4); Mean Corpuscular HGB Conc 26.4 g/dL (31.6-35.5); Red Cell Distribution Width 16.3 % (11.5-14.5)
[2018-04-03 13:14] LABS: Eosinophils # 0.1 K/mcL (0.0-0.6); Eosinophils % 1.2 %; Hematocrit 27.6 % (35.3-44.9); Hemoglobin 7.3 g/dL (11.5-15.4); Lymphocytes # 0.7 K/mcL (0.6-4.6); Lymphocytes % 9.2 %; Mean Corpuscular Hemoglobin 22.5 pg (28.0-33.3); Mean Corpuscular Volume 85.2 fL (83.0-100.0); Mean Platelet Volume 11.1 fL (9.4-12.4); Monocytes # 0.7 K/mcL (0.0-1.3); Monocytes % 8.7 %; Neutrophils # 6.4 K/mcL (1.6-8.9); Platelet Count 187 K/mcL (140-400); Red Blood Count 3.24 M/mcL (3.82-4.97); Segmented Neutrophils % 79.6 %
[2018-04-03 13:18] LABS: Prothrombin Time 33.5 Seconds (9.4-12.1)
[2018-04-03 13:20] LABS: Anisocytosis 1+ (Not Present); Hypochromasia Present (Not Present); Platelet Estimate Normal (Normal)
[2018-04-03] MEDS ORDERED: Naloxone 0.4 MG/ML INJ IVP PRN (13:32)
[2018-04-03 13:52] LABS: BUN/Creatinine Ratio 34 (6-26); Blood Urea Nitrogen 27 mg/dL (8-23); Carbon Dioxide 40 mEq/L (23-29); Chloride 95 mEq/L (98-107); Glucose 136 mg/dL (70-105); Osmolality,Calculated 297 (280-300); Potassium 5.2 mEq/L (3.5-5.1); Sodium 140 mEq/L (136-145); eGFR For Non-African Americans > 60 (> 60)
--- NOTE | 2018-04-03 14:00 | Internal Med History&Physical ---
<Ze Guzman P - Last Filed: 04/03/18 14:14> Date of Encounter: 04/03/18 Time of Encounter: 13:00 Internal Medicine - H&P: HPI Chief complaint: Shortness of breath Admitted From: Home Plans for Post Hospital Care: Home History of present illness: Ms. Guevara is a 67 year old female with past medical history significant for CHF , hypertension, atrial fibrillation, COPD, and asthma who presents for two week history of shortness of breath getting progressively worse. Shortness of breath is associated with non productive cough, aching pain across bilateral back, and chills but no known fever. Wears 4-7 lpm nasal canula at home but has had to intermittently increase to 10 lpm and has reportedly had oxygen desaturations as low as 72% with activity. Denies increased inhaler or breathing treatment use. No diarrhea, chest pain, abdominal pain, or urinary changes. States symptoms started following cardioversion two weeks ago. Denies any medication changes other than being started on Breo 3-4 weeks ago by her ride mechanic, but stopped after four doses due to developing hemoptysis. Has had no more episodes of hemoptysis since stopping medication. Reports she did not consult her ride mechanic after stopping the new medication because her symptoms resolved. 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, heart cath no stent - Social History Smoking Status: Former smoker Smokeless Tobacco Status: No Alcohol use: none Drug use: none - Family History Sister Living Status: Hx Family Cardiac Disorders: Yes Hx Family Respiratory Disorders: Yes (copd) Mother Adopted: No Family Member Ethnicity: Non- Twin of Family Member: Yes, Fraternal Living Status: Hx Family Cardiac Disorders: No Hx Family Respiratory Disorders: No Hx Family Cancer: No Hx Family GI Disorders: No Hx Family Endocrine Disorder: No Hx Family Neuromuscular Disorders: No Hx Family Neurologic Disorders: No Hx Family HEENT Disorders: No Hx Family Autoimmune Disorders: No Father Adopted: No Family Member Ethnicity: Non- Twin of Family Member: Yes, Fraternal Living Status: Hx Family Cardiac Disorders: Yes Hx Family Respiratory Disorders: No Hx Family Cancer: No Hx Family GI Disorders: No Hx Family Endocrine Disorder: No Hx Family Neuromuscular Disorders: No Hx Family Neurologic Disorders: No Hx Family HEENT Disorders: No Hx Family Autoimmune Disorders: No Internal Medicine - H&P: Meds Alendronate Sodium [Fosamax] 70 mg PO WE 10/28/15 [History] Ascorbate Calcium [Vitamin C] 500 mg PO DAILY 10/28/15 [History] Cyanocobalamin (Vitamin B-12) [Vitamin B-12] 100 mcg PO DAILY 10/28/15 [History] Tiotropium [Spiriva] 2 puff PO HS 10/28/15 [History] Warfarin [Coumadin] 5 mg PO SUTUTHFRSA 10/28/15 [History] Dexlansoprazole [Dexilant] 60 mg PO DAILY 07/03/16 [History] Ferrous Sulfate [Iron] 325 mg PO DAILY 07/03/16 [History] Albuterol Sulfate [Proventil Hfa] 2 puff IH Q4H PRN 09/14/16 [History] Oxygen 3 l IH AD 10/24/16 [History] Fluticasone/Salmeterol [Advair 250-50 Diskus] 1 puff IH BID #1 blst.w.dev [Rx] Montelukast [Singulair] 10 mg PO DAILY 11/29/16 [History] Ropinirole HCl [Requip] 2 mg PO HS 11/29/16 [History] Magnesium Oxide [Mag-Ox] 400 mg PO DAILY #30 tablet 12/04/16 [Rx] Furosemide [Lasix] 20 mg PO BID #60 01/11/17 [Rx] Calcium Carbonate [Calcium] 600 mg PO BID 05/08/17 [History] Fluorometholone [Fml Forte] 1 drop LEFT EYE QID 05/08/17 [History] Diltiazem CD (24hr) [Cardizem CD] 120 mg PO DAILY cap.er.24h 05/21/17 [Rx] Acetaminophen/Diphenhydramine [Percogesic 325-12.5 mg Tablet] 1 - 2 tab PO HS PRN 07/19/17 [History] DiphenhydraMINE [Benadryl] 25 mg PO HS PRN capsule 07/23/17 [Rx] Cholecalciferol (D-3) [Vitamin D] 5,000 unit PO DAILY 03/14/18 [History] Lisinopril 2.5 mg PO BID 03/14/18 [History] Warfarin [Coumadin] 7.5 mg PO MOWE 03/14/18 [History] Propafenone HCl [Propafenone HCl ER] 225 mg PO Q12H 04/03/18 [History] 3 Allergy/AdvReac Type Severity Reaction Status Date / Time aspirin [ASA] Allergy Difficulty Verified 03/14/18 13:43 Breathing Penicillins Allergy Hives Verified 03/14/18 13:43 Sulfa (Sulfonamide Allergy Rash Verified 03/14/18 13:43 Antibiotics) All Systems PM: A 10-system review of systems was performed and is negative for pertinent findings except as documented above in the HPI. - Constitutional Vitals: Temp Pulse Resp BP Pulse Ox 98.3 F 88 20 169/66 94 04/03/18 12:12 04/03/18 12:12 04/03/18 12:27 04/03/18 12:12 04/03/18 12:27 Exam: General: Alert and oriented. In no acute distress. Skin:Normal color, no rash, no lesions. HEENT:EOM, pupils equal, round and reactive. Cardiovascular:Heart sounds distant. Normal S1 & S2, no rubs, murmurs or gallops. No JVD. Pulse regular. Lungs: Breath sounds decreased in bilateral lower lobes. Wheezing noted in bilateral upper lobes. Abdomen:Soft, non-tender, no rigidity. Extremities:No deformity, tenderness, or clubbing. Bilateral lower extremities with 2+ pitting edema. Neurological:Normal cognition and motor skills. Pulses:Carotid and radial pulses normal +2. Rest of the physical exam is non contributory. Internal Med - H&P Results - Labs CBC & Chem 7: 04/03/18 12:45 04/03/18 12:45 Labs: Short CBC 04/03/18 Range/Units 12:45 WBC 8.0 (4.3-11.1) K/mcL Hgb 7.3 L (11.5-15.4) g/dL Hct 27.6 L (35.3-44.9) % Plt Count 187 (140-400) K/mcL Neutrophils # 6.4 (1.6-8.9) K/mcL Cardiac Enzymes 04/03/18 Range/Units 12:45 Troponin I < 0.03 (< 0.04) ng/mL - Impressions ITS Impressions Chest X-Ray 04/03/18 12:28 IMPRESSION: Cardiomegaly with pulmonary vascular congestion and small bilateral pleural effusions. Increasing bibasilar opacities, which could represent atelectasis or infiltrates. D/ / Vivek Keita MD / Vivek Keita MD Interpreting Provider: Vivek Keita MD - Assessment and plan (1) Congestive heart failure Current Visit: Yes Status: Acute Assessment and plan: Lasix BID ordered. Continuous environmental monitoring specialist. Cardiology consulted, patient on rythmol and recent cardioversion two weeks ago. Cardiac diet. Qualifiers: Heart failure type: unspecified Heart failure chronicity: chronic Qualified Code(s): I50.9 - Heart failure, unspecified (2) COPD exacerbation Current Visit: Yes Status: Acute Assessment and plan: Respiratory therapy ordered. Breathing treatments as needed. (3) Hemoptysis Current Visit: Yes Status: Acute Assessment and plan: Pulmonary consulted. Patient with hemoptysis after starting Breo, patient discontinued with consulting her ride mechanic who started her on it. No hemoptysis since stopping medication. 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 Hold coumadin for now. Repeat labs in a.m. - Time Spent With Patient Total time spent is greater than 50% in coordination of care (as documented) at patient's floor/unit and/or counseling patient: <SamanthaAbraham - Last Filed: 04/03/18 15:31> Date of Encounter: 04/03/18 Time of Encounter: 14:20 - Constitutional Vitals: Temp Pulse Resp BP Pulse Ox 98.7 F 86 16 148/70 93 04/03/18 15:20 04/03/18 15:20 04/03/18 15:20 04/03/18 15:20 04/03/18 15:20 General appearance: Present: cooperative, A&O X 3 - ENT ENT exam: Present: mucous membranes dry, normal exam - Neck Neck exam general surgery: Present: supple - Respiratory Respiratory exam: Present: rales (both bases), respiratory distress (mild), wheezes. Absent: chest wall tenderness - Cardiovascular Cardiovascular exam: Present: distant heart sounds, irregular rhythm, +S1, +S2. Absent: diastolic murmur, systolic murmur - GI/Abdominal GI/Abdominal exam: Present: normal bowel sounds, soft. Absent: tenderness - Extremities Exam Extremities exam: Present: pedal edema (3-4+), warm, radial pulses palpable and symmetrical. 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 I then saw and evaluated patient independently as well. Patient reports shortness of breath, weight gain, edema, and some wheezing. She denies any fevers, chills, or night sweats. She does describe several episodes of hemoptysis recently, especially while taken any medication Breo. She denies any hematemesis, melena, or hematochezia. She is on Coumadin for atrial fibrillation. We will hold Coumadin for now until we can consult pulmonology and proceed with further workup of her hemoptysis. Other than my comments above and noted physical exam findings, I was Ras's assessment and plan.
[2018-04-03] MEDS ORDERED: Ipratropium/Albuterol Neb 3 ML IH PRN (14:14)
[2018-04-03] MEDS: Furosemide 40 MG/4 ML VIAL IVP SCH ×2 (16:13→16:21)
--- NOTE | 2018-04-03 16:17 | Cardiology Consult Note ---
Date of Encounter: 04/03/18 Time of Encounter: 15:45 Assessment and Plan (1) Diastolic congestive heart failure, NYHA class 3 Current Visit: Yes Status: Chronic Per cardiology: -Known diastolic CHF. -Admitted with CHF exacerbation. -Chest x-ray with increased pulmonary vascular changes. -Volume overloaded on exam. -Reports 12 pound weight gain at home. -TTE 08/2017 with LVEF preserved, mild diastolic dsyfunction, no segmental wall motion abnormalities noted. -Started on IV lasix per primary service, agree with lasix. -Strict i/os, fluid restriction, daily weights. Qualifiers: Congestive heart failure chronicity: acute on chronic Qualified Code(s): I50.33 - Acute on chronic diastolic (congestive) heart failure (2) Atrial fibrillation Current Visit: No Status: Chronic Per cardiology: -Known PAF, on rhythmol 225mg (long acting) Q12 hours at home. Unsure if long acting is on formulary. -ON coumafin for anticoagulation. -Recent ZOILA/DCCV 03/15/18. -ECG with SR, HR 84. QRS 86ms. -Hemoglobin noted to be 7.3, Denies active bleeding or blood loss. -With recent DCCV and increased risk of CVA/embolic event, Recommend continuing coumadin, unless active bleeding noted. -Continue rhytmol. Of note, during last admission was on rhythmol 225mg [id number] inpatient, since long acting version not on formulary. Qualifiers: Atrial fibrillation type: paroxysmal Qualified Code(s): I48.0 - Paroxysmal atrial fibrillation Discussion w patient/family: The assessment and plan as outlined above was discussed with the patient and/or family members who expressed understanding and agreement. All questions were answered. Thank you for involving us in the care of your patient. Please call with any questions. Discussed and reviewed with . History of Present Illness Consult date: 04/03/18 Requesting physician: Ze Guzman Consult reason: a.fib Chief complaint: shortness of breath History of present illness: Ms. Guevara is a 67 year old female with a relevant past medical history of a.fib , anticoagulated with coumadin, diastolic CHF, HTN, COPD who presented to [facility] with complaints of worsening shortness of breath and edema. Patient denies chest pain. Denies palpitations or fluttering. Reports her weight is up about 12 pounds from baseline. Patient also reports her O2 requirements at home are increased. Past Med Surg Social Fam HX - Past Medical History Attestation: Yes The following information was validated with the patient. 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, heart cath no stent - Social History Smoking Status: Former smoker Smokeless Tobacco Status: No Alcohol use: none Drug use: none - Family History Sister Living Status: Hx Family Cardiac Disorders: Yes Hx Family Respiratory Disorders: Yes (copd) Mother Adopted: No Family Member Ethnicity: Non- Twin of Family Member: Yes, Fraternal Living Status: Hx Family Cardiac Disorders: No Hx Family Respiratory Disorders: No Hx Family Cancer: No Hx Family GI Disorders: No Hx Family Endocrine Disorder: No Hx Family Neuromuscular Disorders: No Hx Family Neurologic Disorders: No Hx Family HEENT Disorders: No Hx Family Autoimmune Disorders: No Father Adopted: No Family Member Ethnicity: Non- Twin of Family Member: Yes, Fraternal Living Status: Hx Family Cardiac Disorders: Yes Hx Family Respiratory Disorders: No Hx Family Cancer: No Hx Family GI Disorders: No Hx Family Endocrine Disorder: No Hx Family Neuromuscular Disorders: No Hx Family Neurologic Disorders: No Hx Family HEENT Disorders: No Hx Family Autoimmune Disorders: No Medications and Allergies Alendronate Sodium [Fosamax] 70 mg PO WE 10/28/15 [History] Ascorbate Calcium [Vitamin C] 500 mg PO DAILY 10/28/15 [History] Cyanocobalamin (Vitamin B-12) [Vitamin B-12] 100 mcg PO DAILY 10/28/15 [History] Tiotropium [Spiriva] 2 puff PO HS 10/28/15 [History] Warfarin [Coumadin] 5 mg PO SUTUTHFRSA 10/28/15 [History] Dexlansoprazole [Dexilant] 60 mg PO DAILY 07/03/16 [History] Ferrous Sulfate [Iron] 325 mg PO DAILY 07/03/16 [History] Albuterol Sulfate [Proventil Hfa] 2 puff IH Q4H PRN 09/14/16 [History] Oxygen 3 l IH AD 10/24/16 [History] Fluticasone/Salmeterol [Advair 250-50 Diskus] 1 puff IH BID #1 blst.w.dev [Rx] Montelukast [Singulair] 10 mg PO DAILY 11/29/16 [History] Ropinirole HCl [Requip] 2 mg PO HS 11/29/16 [History] Magnesium Oxide [Mag-Ox] 400 mg PO DAILY #30 tablet 12/04/16 [Rx] Furosemide [Lasix] 20 mg PO BID #60 01/11/17 [Rx] Calcium Carbonate [Calcium] 600 mg PO BID 05/08/17 [History] Fluorometholone [Fml Forte] 1 drop LEFT EYE QID 05/08/17 [History] Diltiazem CD (24hr) [Cardizem CD] 120 mg PO DAILY cap.er.24h 05/21/17 [Rx] Acetaminophen/Diphenhydramine [Percogesic 325-12.5 mg Tablet] 1 - 2 tab PO HS PRN 07/19/17 [History] DiphenhydraMINE [Benadryl] 25 mg PO HS PRN capsule 07/23/17 [Rx] Cholecalciferol (D-3) [Vitamin D] 5,000 unit PO DAILY 03/14/18 [History] Lisinopril 2.5 mg PO BID 03/14/18 [History] Warfarin [Coumadin] 7.5 mg PO MOWE 03/14/18 [History] Propafenone HCl [Propafenone HCl ER] 225 mg PO Q12H 04/03/18 [History] 3 Allergy/AdvReac Type Severity Reaction Status Date / Time aspirin [ASA] Allergy Difficulty Verified 03/14/18 13:43 Breathing Penicillins Allergy Hives Verified 03/14/18 13:43 Sulfa (Sulfonamide Allergy Rash Verified 03/14/18 13:43 Antibiotics) All Systems Review: The remainder of the systems were reviewed and are negative - Cardiovascular Cardiovascular: as per HPI, dyspnea at rest, dyspnea on exertion, leg edema, orthopnea Physical Examination Vital Signs, Last 4 Hours Temp Pulse Resp BP Pulse Ox 04/03/18 15:20 98.7 F 86 16 148/70 93 General: Conversant, No Apparent Distress HEENT: Atraumatic, Normocephaly, Mucus Membranes Moist Neck: No JVD, Normal carotid pulses Cardiac: Reg Rate and Rhythm, Normal S1 and S2, No Murmur Lungs: Other (Expiratory wheezes noted throughout. ) Neuro: Alert and responsive, No focal deficits noted Abdomen: Soft, Non-Tender Skin: No rashes noted on visualized skin Musculoskeletal: No Chest Wall Tenderness Extremities: No Clubbing, No Cyanosis, Normal Pulses, Other (2+ bilateral lower extremity pitting edema noted. ) Results 04/03/18 12:45 04/03/18 12:45 Impressions Chest X-Ray 04/03/18 12:28 IMPRESSION: Cardiomegaly with pulmonary vascular congestion and small bilateral pleural effusions. Increasing bibasilar opacities, which could represent atelectasis or infiltrates. D/ / Vivek Keita MD / Vivek Keita MD Interpreting Provider: Vivek Keita MD Active Medications Albuterol/Ipratropium (Duoneb) 3 ml IH [id number] PRN PRN Reason: Shortness Of Breath/Wheezing Stop: 10/03/18 14:15 Furosemide (Lasix) 40 mg IVP BIDDIURETIC TIM Stop: 10/03/18 13:46 Naloxone HCl (Narcan) 0.4 mg IVP Q2MIN PRN PRN Reason: SEE COMMENTS Stop: 10/03/18 13:33 Laboratory Tests 04/03/18 04/03/18 04/03/18 12:45 12:45 12:45 Hgb 7.3 L INR Creatinine 0.79 Troponin I B-Natriuretic Peptide 44 04/03/18 04/03/18 12:45 12:45 Hgb INR 3.0 Creatinine Troponin I < 0.03 B-Natriuretic Peptide - Imaging and Cardiology Chest Xray: report reviewed Echo: report reviewed - EKG Interpretation EKG results cardiology: personally reviewed (ECG with SR, HR 84. QRS 86ms.) Consult Discharge Plan - Plan Referrals: Lisbet Ray, CHERRY GROWER [Primary Care Provider] -
[2018-04-03] MEDS ORDERED: NON-FORMULARY MEDICATION 1 EACH EACH (Alendronate Sodium [Fosamax] 70 MG) PO SCH (16:45)
[2018-04-03] MEDS: Fluorometholone OPTH 5 ML BOTTLE LEFT EYE SCH ×2 (18:06→20:35)
[2018-04-03] MEDS: rOPINIRole 1 MG TABLET PO SCH (20:35)
[2018-04-03] MEDS: Tiotropium 18 MCG inhalation IH SCH (21:10)
[2018-04-03] MEDS: Budesonide/Formoterol 160/4.5 1 PUFF INH IH SCH (21:10)
[2018-04-04 06:16] LABS: Basophils % 0.1 %; Immature Granulocytes % 1.1 % (0-4)
[2018-04-04 06:17] LABS: Eosinophils # 0.1 K/mcL (0.0-0.6); Eosinophils % 1.1 %; Hematocrit 26.5 % (35.3-44.9); Hemoglobin 6.9 g/dL (11.5-15.4); Lymphocytes # 0.9 K/mcL (0.6-4.6); Lymphocytes % 12.6 %; Mean Corpuscular Hemoglobin 22.1 pg (28.0-33.3); Mean Corpuscular Volume 84.9 fL (83.0-100.0); Mean Platelet Volume 11.6 fL (9.4-12.4); Monocytes # 0.7 K/mcL (0.0-1.3); Monocytes % 9.8 %; Neutrophils # 5.4 K/mcL (1.6-8.9); Nucleated Red Blood Cells 0.3 /100 WBC (0); Platelet Count 184 K/mcL (140-400); Red Blood Count 3.12 M/mcL (3.82-4.97); Red Cell Distribution Width 16.2 % (11.5-14.5); Segmented Neutrophils % 75.3 %
[2018-04-04 06:43] LABS: Hypochromasia Present (Not Present); Platelet Estimate Normal (Normal)
[2018-04-04 06:49] LABS: BUN/Creatinine Ratio 35 (6-26); Blood Urea Nitrogen 29 mg/dL (8-23); Calcium 9.1 mg/dL (8.6-10.3); Carbon Dioxide > 45 mEq/L (23-29); Chloride 93 mEq/L (98-107); Glucose 115 mg/dL (70-105); Osmolality,Calculated 299 (280-300); Potassium 4.6 mEq/L (3.5-5.1); Sodium 141 mEq/L (136-145); eGFR For Non-African Americans > 60 (> 60)
[2018-04-04] MEDS: Budesonide/Formoterol 160/4.5 1 PUFF INH IH SCH ×2 (07:56→19:48)
[2018-04-04] MEDS ORDERED: Furosemide 20 MG/2 ML VIAL IVP ONE (08:35)
[2018-04-04] MEDS: Magnesium Oxide 400 MG TABLET PO SCH (08:58)
[2018-04-04] MEDS: Furosemide 40 MG/4 ML VIAL IVP SCH ×2 (08:58→17:41)
[2018-04-04] MEDS: Diltiazem CD (24hr) 120 MG CAPSULE PO SCH (08:58)
[2018-04-04] MEDS: Cyanocobalamin (B-12) 1,000 MCG TABLET PO SCH (08:59)
[2018-04-04] MEDS: Cholecalciferol (D-3) 1,000 UNIT TABLET PO SCH (08:59)
[2018-04-04] MEDS: Ascorbic Acid 500 MG TABLET PO SCH (08:59)
--- NOTE | 2018-04-04 09:43 | Pulmonology Consult Note ---
<Víctor Barnett M - Last Filed: 04/04/18 17:09> Date of Encounter: 04/04/18 Medications and Allergies Alendronate Sodium [Fosamax] 70 mg PO WE 10/28/15 [History] Ascorbate Calcium [Vitamin C] 500 mg PO DAILY 10/28/15 [History] Cyanocobalamin (Vitamin B-12) [Vitamin B-12] 100 mcg PO DAILY 10/28/15 [History] Tiotropium [Spiriva] 2 puff PO HS 10/28/15 [History] Warfarin [Coumadin] 5 mg PO SUTUTHFRSA 10/28/15 [History] Dexlansoprazole [Dexilant] 60 mg PO DAILY 07/03/16 [History] Ferrous Sulfate [Iron] 325 mg PO DAILY 07/03/16 [History] Albuterol Sulfate [Proventil Hfa] 2 puff IH Q4H PRN 09/14/16 [History] Oxygen 3 l IH AD 10/24/16 [History] Fluticasone/Salmeterol [Advair 250-50 Diskus] 1 puff IH BID #1 blst.w.dev [Rx] Montelukast [Singulair] 10 mg PO DAILY 11/29/16 [History] Ropinirole HCl [Requip] 2 mg PO HS 11/29/16 [History] Magnesium Oxide [Mag-Ox] 400 mg PO DAILY #30 tablet 12/04/16 [Rx] Furosemide [Lasix] 20 mg PO BID #60 01/11/17 [Rx] Calcium Carbonate [Calcium] 600 mg PO BID 05/08/17 [History] Fluorometholone [Fml Forte] 1 drop LEFT EYE QID 05/08/17 [History] Diltiazem CD (24hr) [Cardizem CD] 120 mg PO DAILY cap.er.24h 05/21/17 [Rx] Acetaminophen/Diphenhydramine [Percogesic 325-12.5 mg Tablet] 1 - 2 tab PO HS PRN 07/19/17 [History] DiphenhydraMINE [Benadryl] 25 mg PO HS PRN capsule 07/23/17 [Rx] Cholecalciferol (D-3) [Vitamin D] 5,000 unit PO DAILY 03/14/18 [History] Lisinopril 2.5 mg PO BID 03/14/18 [History] Warfarin [Coumadin] 7.5 mg PO MOWE 03/14/18 [History] Propafenone HCl [Propafenone HCl ER] 225 mg PO Q12H 04/03/18 [History] 3 Allergy/AdvReac Type Severity Reaction Status Date / Time aspirin [ASA] Allergy Difficulty Verified 03/14/18 13:43 Breathing Penicillins Allergy Hives Verified 03/14/18 13:43 Sulfa (Sulfonamide Allergy Rash Verified 03/14/18 13:43 Antibiotics) All Systems: The remainder of the systems were reviewed and are negative Physical Examination Vital Signs: Vital Signs, Last 4 Hours Temp Pulse Resp BP Pulse Ox 04/04/18 15:57 98.8 F 92 15 160/80 97 04/04/18 14:51 98.7 F 90 16 163/69 04/04/18 14:36 98.4 F 83 16 154/74 97 04/04/18 13:49 99.0 F 88 14 123/50 Results - Laboratory Findings CBC and BMP: 04/04/18 05:45 04/04/18 05:45 PT/INR, D-dimer PT 33.5 Seconds (9.4-12.1) H 04/03/18 12:45 Abnormal lab findings: Abnormal lab results RBC 3.12 M/mcL (3.82-4.97) L 04/04/18 05:45 Hgb 6.9 g/dL (11.5-15.4) L 04/04/18 05:45 Hct 26.5 % (35.3-44.9) L 04/04/18 05:45 MCH 22.1 pg (28.0-33.3) L 04/04/18 05:45 MCHC 26.0 g/dL (31.6-35.5) L 04/04/18 05:45 RDW 16.2 % (11.5-14.5) H 04/04/18 05:45 Nucleated RBCs/100 WBC 0.3 /100 WBC (0) H 04/04/18 05:45 Hypochromasia Present (Not Present) A 04/04/18 05:45 Anisocytosis 1+ (Not Present) A 04/03/18 12:45 PT 33.5 Seconds (9.4-12.1) H 04/03/18 12:45 APTT 38.0 Seconds (26.0-36.0) H 04/03/18 12:45 Chloride 93 mEq/L (98-107) L 04/04/18 05:45 Carbon Dioxide > 45 mEq/L (23-29) H* 04/04/18 05:45 BUN 29 mg/dL (8-23) H 04/04/18 05:45 BUN/Creatinine Ratio 35 (6-26) H 04/04/18 05:45 Glucose 115 mg/dL (70-105) H 04/04/18 05:45 - Clinical Findings Intake & Output: Intake & Output 04/04/18 04/04/18 04/04/18 07:59 15:59 23:59 Intake Total 565 / 565 Output Total 300 / 300 Balance 265 / 265 Consult Discharge Plan - Plan Referrals: Lisbet Ray, CUT[facility]UM [Primary Care Provider] - - Attending Attestation I examined this patient and my medical decision-making was reviewed with the Resident Physician. I agree with the documented findings, disposition and treatment plan as described except to the extent set forth below. Patient seen and examined. Labs, radiology, chart personally reviewed. Agree with resident's history and physical, assessment, plan with following comments: STORE HOST: Patient follows commands, patient is lethargic and easily arousable. Pulmonary: This patient is known to our pulmonary service and unfortunately she has not been able to tolerate noninvasive ventilation secondary to panic attack and with her obesity hypoventilation syndrome that makes the condition more complicated. There is also evidence of volume overload and cardiology team has seen the patient. Patient is getting blood transfusion and she will need diuresis with that. Thank you for the consultation and please call for any questions. <Derrick Viveros - Last Filed: 04/04/18 18:28> Date of Encounter: 04/04/18 Time of Encounter: 11:35 Assessment and Plan (1) Diastolic congestive heart failure, NYHA class 3 Current Visit: Yes Status: Chronic Management per primary and cardiology Pt cardioverted 2 weeks ago Takes Rythmol SOB likely 2/2 fluid overload as noted with CXR showing pulmonary vascular congestion and bibasilar infiltrates Qualifiers: Congestive heart failure chronicity: acute on chronic Qualified Code(s): I50.33 - Acute on chronic diastolic (congestive) heart failure (2) COPD (chronic obstructive pulmonary disease) Current Visit: No Status: Chronic Shortness of breath appears 2/2 fluid overload with CHF as above Pt is afebrile, no tachypnea, no tachycardia, WBC normal at 7.1 today Pt taking her home Advair in substitute of Breo. No longer experiencing hemoptysis. States this has happened previously when she tried symbicort. Continue home Advair and Spiriva Continue albuterol nebs Qualifiers: COPD type: unspecified COPD Qualified Code(s): J44.9 - Chronic obstructive pulmonary disease, unspecified History of Present Illness Consult date: 04/04/18 Requesting physician: Ze Guzman Reason for consult: cough, COPD Chief complaint: shortness of breath History of present illness: Ms. Guevara is a 67F with PMH of CHF, afib, COPD, and HTN who presented to the ED on 04/03 for two week history of shortness of breath that has progressively gotten worse. Pt was cardioverted 2 weeks ago and states she has not felt "right " ever since. She was started on Breo Ellipta inhaler around that time and subsequently experienced hemoptysis which led her to stop the Breo. She states she has an increased cough, but no change in sputum production. Denies any fever , chills, nausea, vomiting, chest pain, numbness, or tingling. 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, heart cath no stent - Social History Smoking Status: Former smoker Smokeless Tobacco Status: No Alcohol use: none Drug use: none - Family History Sister Living Status: Hx Family Cardiac Disorders: Yes Hx Family Respiratory Disorders: Yes (copd) Mother Adopted: No Family Member Ethnicity: Non- Twin of Family Member: Yes, Fraternal Living Status: Hx Family Cardiac Disorders: No Hx Family Respiratory Disorders: No Hx Family Cancer: No Hx Family GI Disorders: No Hx Family Endocrine Disorder: No Hx Family Neuromuscular Disorders: No Hx Family Neurologic Disorders: No Hx Family HEENT Disorders: No Hx Family Autoimmune Disorders: No Father Adopted: No Family Member Ethnicity: Non- Twin of Family Member: Yes, Fraternal Living Status: Hx Family Cardiac Disorders: Yes Hx Family Respiratory Disorders: No Hx Family Cancer: No Hx Family GI Disorders: No Hx Family Endocrine Disorder: No Hx Family Neuromuscular Disorders: No Hx Family Neurologic Disorders: No Hx Family HEENT Disorders: No Hx Family Autoimmune Disorders: No All Systems: The remainder of the systems were reviewed and are negative - Constitutional Constitutional: no chills, no fever(s), no headache(s) - Cardiovascular Cardiovascular: dyspnea, dyspnea on exertion, leg edema, orthopnea, palpitations - Respiratory Respiratory: cough, hemoptysis, dyspnea on exertion, no wheezing, no excessive phlegm production, no change in phlegm color - Gastrointestinal Gastrointestinal: no abdominal pain, no diarrhea, no nausea, no vomiting - Musculoskeletal Musculoskeletal: no weakness, no numbness, no tingling - Neurological Neurological: no confusion, no dizziness, no vertigo, no weakness Physical Examination Vital Signs: Vital Signs, Last 4 Hours Temp Pulse Resp BP Pulse Ox 04/04/18 07:04 98.0 F 84 16 170/75 100 General appearance: no acute distress Eyes: nonicteric ENT: oropharynx moist Neck: supple, no lymphadenopathy, JVD Effort: mildly labored Inspection: normal Auscultation: bilateral: rhonchi Percussion: bilateral: not dull Tactile fremitus: bilateral: normal Cardiovascular: regular rate and rhythm Gastrointestinal: soft, non-tender, non-distended Integumentary: normal Extremities: no cyanosis, edema (3+ pitting edema in LEs bilaterally ) Musculoskeletal: no deformities, ROM normal Gait: normal gait, normal posture normal mental status, non-focal exam mood appropriate, affect normal Results - Laboratory Findings CBC and BMP: 04/04/18 05:45 04/04/18 05:45 PT/INR, D-dimer PT 33.5 Seconds (9.4-12.1) H 04/03/18 12:45 Abnormal lab findings: Abnormal lab results RBC 3.12 M/mcL (3.82-4.97) L 04/04/18 05:45 Hgb 6.9 g/dL (11.5-15.4) L 04/04/18 05:45 Hct 26.5 % (35.3-44.9) L 04/04/18 05:45 MCH 22.1 pg (28.0-33.3) L 04/04/18 05:45 MCHC 26.0 g/dL (31.6-35.5) L 04/04/18 05:45 RDW 16.2 % (11.5-14.5) H 04/04/18 05:45 Nucleated RBCs/100 WBC 0.3 /100 WBC (0) H 04/04/18 05:45 Hypochromasia Present (Not Present) A 04/04/18 05:45 Anisocytosis 1+ (Not Present) A 04/03/18 12:45 PT 33.5 Seconds (9.4-12.1) H 04/03/18 12:45 APTT 38.0 Seconds (26.0-36.0) H 04/03/18 12:45 Chloride 93 mEq/L (98-107) L 04/04/18 05:45 Carbon Dioxide > 45 mEq/L (23-29) H* 04/04/18 05:45 BUN 29 mg/dL (8-23) H 04/04/18 05:45 BUN/Creatinine Ratio 35 (6-26) H 04/04/18 05:45 Glucose 115 mg/dL (70-105) H 04/04/18 05:45 - Diagnostic Findings Chest x-ray: report reviewed, image reviewed - Clinical Findings Intake & Output: Intake & Output 04/03/18 04/04/18 04/04/18 23:59 07:59 15:59 Intake Total 120 / 120 Balance 120 / 120
[2018-04-04] MEDS ORDERED: 0.9 % Sodium Chloride 250 ML ONE ×2 (10:14→14:13)
[2018-04-04] MEDS: Fluorometholone OPTH 5 ML BOTTLE LEFT EYE SCH ×4 (11:14→21:02)
--- NOTE | 2018-04-04 15:51 | Internal Med Progress Note ---
Hospitalist Progress Note - Encounter Date of Encounter: 04/04/18 Time of Encounter: 08:30 - Subjective Interval History: Patient seen and examined at bedside earlier this am. Currently patient sitting up in chair Denies any CP or SOB,no other complaints at this time - Exam Vitals: Temp Pulse Resp BP Pulse Ox 98.7 F 90 16 163/69 97 04/04/18 14:51 04/04/18 14:51 04/04/18 14:51 04/04/18 14:51 04/04/18 14:36 Exam: General: Alert and oriented. In no acute distress. Skin:Normal color, no rash, no lesions. HEENT:EOM, pupils equal, round and reactive. Cardiovascular:Heart sounds distant. Normal S1 & S2, no rubs, murmurs or gallops. No JVD. Pulse regular. Lungs: Breath sounds decreased in bilateral lower lobes. Faint wheezing noted in bilateral upper lobes. Abdomen:Soft, non-tender, no rigidity. Extremities:No deformity, tenderness, or clubbing. Bilateral lower extremities with 2+ pitting edema. Neurological:Normal cognition and motor skills. Pulses:Carotid and radial pulses normal +2. Rest of the physical exam is non contributory. - Assessment and Plan (1) Congestive heart failure Current Visit: Yes Status: Acute Assessment and Plan: Cont Lasix 40 IV BID Continuous electronic device monitor. Cardiology consulted, patient on rythmol and recent cardioversion two weeks ago. Cardiac diet. Fluid restriction monitor I/O (2) COPD exacerbation Current Visit: Yes Status: Acute Assessment and Plan: Cont with O2 titrating to maintain Spo2 > 90% Cont with Singulair Cont with Bronchodilators (3) Hemoptysis Current Visit: Yes Status: Acute Assessment and Plan: Pulmonary consulted. Patient with hemoptysis after starting Breo, patient discontinued without consulting her oenologist who started her on it. No hemoptysis since stopping medication. will monitor (4) Hemoglobin decreased Current Visit: Yes Status: Chronic Assessment and Plan: Hgb 6.9 today will transfuse 2 units PRBC with lasix between each unit Hold coumadin for now. Check stool for occult blood last endoscopy 08/17/2017 A 5 mm polyp was found Non bleeding internal hemorrhoids were found A few medium mouthed diverticula - no evidence of diverticular bleeding will consult GI as needed DVT Prophylaxis: SCDs - Time Spent with Patient Total time spent is greater than 50% in coordination of care (as documented) at patient's floor/unit and/or counseling patient: Internal Medicine: Result - Labs CBC & Chem 7: 04/04/18 05:45 04/04/18 05:45 Labs: Short CBC 04/04/18 Range/Units 05:45 WBC 7.1 (4.3-11.1) K/mcL Hgb 6.9 L (11.5-15.4) g/dL Hct 26.5 L (35.3-44.9) % Plt Count 184 (140-400) K/mcL Neutrophils # 5.4 (1.6-8.9) K/mcL BMP 04/04/18 05:45 Sodium 141 Potassium 4.6 Chloride 93 L Carbon Dioxide > 45 H* BUN 29 H Creatinine 0.83 Glucose 115 H Calcium 9.1 - ABG Interpretation ABG results: PT/INR, D-dimer PT 33.5 Seconds (9.4-12.1) H 04/03/18 12:45 - VTE Documentation of Mechanical Device: Intermittent pneumatic compression device Consult Discharge Plan - Plan Referrals: Lisbet Ray, [employer] [Primary Care Provider] - (1) Congestive heart failure Qualifiers: Heart failure type: unspecified Heart failure chronicity: chronic Qualified Code(s): I50.9 - Heart failure, unspecified
[2018-04-04] MEDS: Pantoprazole 40 MG VIAL IVP SCH (17:41)
[2018-04-04] MEDS: Tiotropium 18 MCG inhalation IH SCH (19:48)
[2018-04-04] MEDS ORDERED: Tiotropium 18 MCG inhalation IH PRN (20:37)
[2018-04-04] MEDS ORDERED: Budesonide/Formoterol 160/4.5 1 PUFF INH IH PRN (20:38)
[2018-04-04] MEDS: rOPINIRole 1 MG TABLET PO SCH (21:01)
[2018-04-04 22:30] LABS: Hemoglobin 9.5 g/dL (11.5-15.4)
[2018-04-05 03:46] LABS: Immature Granulocytes % 1.3 % (0-4)
[2018-04-05 03:48] LABS: Basophils % 0.4 %; Eosinophils # 0.1 K/mcL (0.0-0.6); Eosinophils % 1.2 %; Hematocrit 30.8 % (35.3-44.9); Hemoglobin 8.5 g/dL (11.5-15.4); Lymphocytes # 0.9 K/mcL (0.6-4.6); Mean Corpuscular HGB Conc 27.6 g/dL (31.6-35.5); Mean Corpuscular Hemoglobin 23.7 pg (28.0-33.3); Mean Corpuscular Volume 85.8 fL (83.0-100.0); Mean Platelet Volume 10.4 fL (9.4-12.4); Monocytes # 0.5 K/mcL (0.0-1.3); Monocytes % 6.2 %; Neutrophils # 6.2 K/mcL (1.6-8.9); Nucleated Red Blood Cells 0.3 /100 WBC (0); Platelet Count 166 K/mcL (140-400); Red Blood Count 3.59 M/mcL (3.82-4.97); Segmented Neutrophils % 79.9 %
[2018-04-05 04:23] LABS: Alanine Aminotransferase 20 Units/L (7-52); Albumin 3.7 g/dL (3.5-5.7); Albumin/Globulin Ratio 1.5 (1.1-2.2); Alkaline Phosphatase 62 Units/L (34-104); Aspartate Amino Transferase 13 Units/L (13-39); BUN/Creatinine Ratio 36 (6-26); Bilirubin,Total 0.3 mg/dL (0.3-1.0); Blood Urea Nitrogen 31 mg/dL (8-23); Carbon Dioxide > 45 mEq/L (23-29); Chloride 89 mEq/L (98-107); Globulin 2.4 g/dL (2.4-3.5); Glucose 199 mg/dL (70-105); Osmolality,Calculated 310 (280-300); Potassium 4.4 mEq/L (3.5-5.1); Sodium 144 mEq/L (136-145); Total Protein 6.1 g/dL (6.4-8.9); eGFR For Non-African Americans > 60 (> 60)
[2018-04-05 04:50] LABS: Hypochromasia Present (Not Present)
[2018-04-05 04:51] LABS: Platelet Estimate Normal (Normal); Polychromasia 2+ (Not Present)
[2018-04-05] MEDS: Pantoprazole 40 MG VIAL IVP SCH ×2 (06:07→17:33)
[2018-04-05] MEDS: Cholecalciferol (D-3) 1,000 UNIT TABLET PO SCH (09:06)
[2018-04-05] MEDS: Furosemide 40 MG/4 ML VIAL IVP SCH ×2 (09:07→17:33)
[2018-04-05] MEDS: Ascorbic Acid 500 MG TABLET PO SCH (09:09)
[2018-04-05] MEDS: Cyanocobalamin (B-12) 1,000 MCG TABLET PO SCH (09:09)
[2018-04-05] MEDS: Magnesium Oxide 400 MG TABLET PO SCH (09:09)
[2018-04-05] MEDS: Fluorometholone OPTH 5 ML BOTTLE LEFT EYE SCH ×4 (09:10→20:50)
[2018-04-05] MEDS: Diltiazem CD (24hr) 120 MG CAPSULE PO SCH (09:10)
[2018-04-05 10:56] LABS: Hematocrit 33.7 % (35.3-44.9); Hemoglobin 9.4 g/dL (11.5-15.4)
--- NOTE | 2018-04-05 11:05 | Gastroenterology Consult Note ---
<Anders Redd - Last Filed: 04/05/18 13:50> Date of Encounter: 04/05/18 Time of Encounter: 11:03 - Assessment and plan (1) Anemia Current Visit: Yes Status: Acute Assessment and plan: Possible secondary to GI bleed; FOBT positive - Hemoglobin: 7.3, 6.9, 9.5, 8.5 - Patient is status post transfusion of 2 units of PRBCs - Coumadin is currently being held - Patients last endoscopy was 08/17/17; 5 mm polyp, nonbleeding internal hemorrhoids, diverticula Plan: - Clear liquid diet for today, NPO at midnight - Plan for colonoscopy tomorrow - Patient may need capsule imaging study in the outpatient setting Qualifiers: Qualified Code(s): D64.9 - Anemia, unspecified (2) Hemoptysis Current Visit: Yes Status: Acute Assessment and plan: Resolved - Patient started having hemoptysis after starting. - Pulmonology has been consulted - Patient has had no hemoptysis since stopping this medication (3) COPD (chronic obstructive pulmonary disease) Current Visit: No Status: Chronic Assessment and plan: Management per primary team Qualifiers: COPD type: unspecified COPD Qualified Code(s): J44.9 - Chronic obstructive pulmonary disease, unspecified - Time Spent With Patient Total time spent is greater than 50% in coordination of care (as documented) at patient's floor/unit and/or counseling patient: GI History of Present Illness - Data of Consult Requesting Physician: Humera Alejandro MD - Consult Narrative Reason for consult: Possible GI bleed History of present illness: Ms. Guevara is a 67-year-old female with a PMH of CHF, HTN, atrial fibrillation, COPD, and asthma who presented to [facility] with a chief complaint of shortness of breath of 2 weeks duration. Patient reported that her symptoms were gradually worsening. She had an associated nonproductive cough, aching pain across the bilateral back, and chills without fever. Patient has a known history of COPD and wears 4-7 L of oxygen via nasal cannula at home. Patient has recently had to increase her oxygen to 10 L due to low O2 sat. Patient reported that her symptoms started after receiving cardioversion 2 weeks prior. Patient was started 303-4 weeks ago by her retirement administrator. She developed hemoptysis after 4 doses. She then stopped the medication, and has since had no problems. Patient was found to have a low hemoglobin at 7.3. This subsequently dropped to 6.9. Patient was transfused with 2 units of packed red blood cells, and her hemoglobin subsequently increased to 9.5. Today however, her hemoglobin is 8.5. Her last EGD was in August of this year, which found a nonbleeding polyp , nonbleeding diverticuli, and nonbleeding internal hemorrhoids. Patient seen and examined at bedside; endorses some weakness and fatigue, but denies any abdominal pain, fever, chills, nausea, or vomiting. No further complaints at this time. 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, heart cath no stent - Social History Smoking Status: Former smoker Smokeless Tobacco Status: No Alcohol use: none Drug use: none - Family History Sister Living Status: Hx Family Cardiac Disorders: Yes Hx Family Respiratory Disorders: Yes (copd) Mother Adopted: No Family Member Ethnicity: Non- Twin of Family Member: Yes, Fraternal Living Status: Hx Family Cardiac Disorders: No Hx Family Respiratory Disorders: No Hx Family Cancer: No Hx Family GI Disorders: No Hx Family Endocrine Disorder: No Hx Family Neuromuscular Disorders: No Hx Family Neurologic Disorders: No Hx Family HEENT Disorders: No Hx Family Autoimmune Disorders: No Father Adopted: No Family Member Ethnicity: Non- Twin of Family Member: Yes, Fraternal Living Status: Hx Family Cardiac Disorders: Yes Hx Family Respiratory Disorders: No Hx Family Cancer: No Hx Family GI Disorders: No Hx Family Endocrine Disorder: No Hx Family Neuromuscular Disorders: No Hx Family Neurologic Disorders: No Hx Family HEENT Disorders: No Hx Family Autoimmune Disorders: No - Constitutional Vitals: Temp Pulse Resp BP Pulse Ox 98.6 F 86 15 147/68 93 04/05/18 06:53 04/05/18 06:53 04/05/18 06:53 04/05/18 06:53 04/05/18 06:53 - Other Additional findings: General: No acute distress ENT exam: mucous membranes moist, normal oropharynx Respiratory exam: CTAB; no wheezes, rales, rhonchi Cardiovascular exam: RRR, +S1, +S2, No murmur, rubs, or gallops GI/Abdominal exam: Soft, non-tender Extremities exam: +2 pedal edema present bilaterally Results - Labs CBC & Chem 7: 04/05/18 09:15 04/05/18 03:25 Labs: Last Result Calcium 9.0 mg/dL (8.6-10.3) 04/05/18 03:25 Troponin I < 0.03 ng/mL (< 0.04) 04/03/18 12:45 Stool Occult Blood Positive (Negative) A 04/04/18 09:45 Entire Visit Hgb 8.5 g/dL (11.5-15.4) L 04/05/18 03:25 Hct 30.8 % (35.3-44.9) L 04/05/18 03:25 PT 33.5 Seconds (9.4-12.1) H 04/03/18 12:45 Total Bilirubin 0.3 mg/dL (0.3-1.0) 04/05/18 03:25 AST 13 Units/L (13-39) 04/05/18 03:25 ALT 20 Units/L (7-52) 04/05/18 03:25 - ABG ABG results: PT/INR, D-dimer PT 33.5 Seconds (9.4-12.1) H 04/03/18 12:45 Consult Discharge Plan - Plan Referrals: Lisbet Ray, FITNESS CONSULTANT [Primary Care Provider] - 04/11/18 9:30 am <Chantelle Lyman - Last Filed: 04/05/18 17:06> Date of Encounter: 04/05/18 Time of Encounter: 13:10 - Time Spent With Patient Total time spent is greater than 50% in coordination of care (as documented) at patient's floor/unit and/or counseling patient: GI History of Present Illness - Data of Consult Requesting Physician: Humera Alejandro MD - Consult Narrative History of present illness: Ms. Guevara is a 67 year old female - Constitutional Vitals: Temp Pulse Resp BP Pulse Ox 100.0 F H 84 16 140/62 95 04/05/18 15:34 04/05/18 15:34 04/05/18 15:34 04/05/18 15:34 04/05/18 15:34 Results - Labs CBC & Chem 7: 04/05/18 09:15 04/05/18 03:25 Labs: Last Result Calcium 9.0 mg/dL (8.6-10.3) 04/05/18 03:25 Troponin I < 0.03 ng/mL (< 0.04) 04/03/18 12:45 Stool Occult Blood Positive (Negative) A 04/04/18 09:45 Entire Visit Hgb 9.4 g/dL (11.5-15.4) L 04/05/18 09:15 Hct 33.7 % (35.3-44.9) L 04/05/18 09:15 PT 33.5 Seconds (9.4-12.1) H 04/03/18 12:45 Total Bilirubin 0.3 mg/dL (0.3-1.0) 04/05/18 03:25 AST 13 Units/L (13-39) 04/05/18 03:25 ALT 20 Units/L (7-52) 04/05/18 03:25 - ABG ABG results: PT/INR, D-dimer PT 33.5 Seconds (9.4-12.1) H 04/03/18 12:45 - Attending Attestation I examined this patient and my medical decision-making was reviewed with the Resident Physician. I agree with the documented findings, disposition and treatment plan as described except to the extent set forth below. Pt seen Agree with Dr Benedict H/P, A/P. 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 Rec; Entersocopy/colon with TI exam and if negative then cap endoscopy
[2018-04-05] MEDS ORDERED: SODIUM CHLORIDE/NAHCO3/KCL/PEG 4,000 ML SOLN.RECON PO ONE ×2 (13:58→14:00)
--- NOTE | 2018-04-05 15:29 | Internal Med Progress Note ---
Hospitalist Progress Note - Encounter Date of Encounter: 04/05/18 Time of Encounter: 08:00 - Subjective Interval History: Patient seen and examined at bedside earlier this am. Currently patient sitting up in chair Denies any CP SOB or palpitations. No active bleeding noted - Exam Vitals: Temp Pulse Resp BP Pulse Ox 98.8 F 90 15 138/70 97 04/05/18 11:43 04/05/18 11:43 04/05/18 11:43 04/05/18 11:43 04/05/18 11:43 Exam: General: Alert and oriented. In no acute distress. Skin:Normal color, no rash, no lesions. HEENT:EOM, pupils equal, round and reactive. Cardiovascular:Heart sounds distant. Normal S1 & S2, no rubs, murmurs or gallops. No JVD. Pulse regular. Lungs: Breath sounds decreased in bilateral lower lobes. Abdomen:Soft, non-tender, no rigidity. Extremities:No deformity, tenderness, or clubbing. Bilateral lower extremities with 2+ pitting edema. Neurological:Normal cognition and motor skills. Pulses:Carotid and radial pulses normal +2. Rest of the physical exam is non contributory. - Assessment and Plan (1) Congestive heart failure Current Visit: Yes Status: Acute Assessment and Plan: Cont Lasix 40 IV BID Continuous hospital monitor. Cardiology consulted, will cont IV diuresis strict I/O patient on rythmol and recent cardioversion two weeks ago.- Cardiac diet. Fluid restriction encourage patient to elevate extremities - (2) COPD exacerbation Current Visit: Yes Status: Acute Assessment and Plan: Stable at this time -Cont with O2 titrating to maintain Spo2 > 90% Cont with Singulair Cont with Bronchodilators (3) Hemoptysis Current Visit: Yes Status: Acute Assessment and Plan: Pulmonary consulted. Patient with hemoptysis after starting Breo, patient discontinued without consulting her bullet charging machine operator who started her on it. No hemoptysis since stopping medication. will monitor (4) Hemoglobin decreased Current Visit: Yes Status: Chronic Assessment and Plan: Hgb 6.9 transfuse 2 units PRBC with lasix between each unit- up to 9.5-8.5 Hold coumadin for now. stool for occult blood-positive last endoscopy 08/17/2017 A 5 mm polyp was found Non bleeding internal hemorrhoids were found A few medium mouthed diverticula - no evidence of diverticular bleeding GI consulted- clear liquids tonight then NPO at midnight for endoscopy in am cont to monitor H/H transfuse as needed DVT Prophylaxis: SCDs - Time Spent with Patient Total time spent is greater than 50% in coordination of care (as documented) at patient's floor/unit and/or counseling patient: Internal Medicine: Result - Labs CBC & Chem 7: 04/05/18 09:15 04/05/18 03:25 Labs: Short CBC 04/04/18 04/05/18 04/05/18 Range/Units 21:15 03:25 09:15 WBC 7.8 (4.3-11.1) K/mcL Hgb 9.5 L D 8.5 L 9.4 L (11.5-15.4) g/dL Hct 34.0 L 30.8 L 33.7 L (35.3-44.9) % Plt Count 166 (140-400) K/mcL Neutrophils # 6.2 (1.6-8.9) K/mcL BMP 04/05/18 03:25 Sodium 144 Potassium 4.4 Chloride 89 L Carbon Dioxide > 45 H* BUN 31 H Creatinine 0.87 Glucose 199 H Calcium 9.0 Liver Function 04/05/18 Range/Units 03:25 Total Bilirubin 0.3 (0.3-1.0) mg/dL AST 13 (13-39) Units/L ALT 20 (7-52) Units/L Alkaline Phosphatase 62 (34-104) Units/L Albumin 3.7 (3.5-5.7) g/dL - ABG Interpretation ABG results: PT/INR, D-dimer PT 33.5 Seconds (9.4-12.1) H 04/03/18 12:45 - VTE Documentation of Mechanical Device: Intermittent pneumatic compression device Consult Discharge Plan - Plan Referrals: Lisbet Ray, CEMENT HANDLER [Primary Care Provider] - 04/11/18 9:30 am (1) Congestive heart failure Qualifiers: Heart failure type: unspecified Heart failure chronicity: chronic Qualified Code(s): I50.9 - Heart failure, unspecified
[2018-04-05] MEDS: rOPINIRole 1 MG TABLET PO SCH (20:50)
[2018-04-06] MEDS: Pantoprazole 40 MG VIAL IVP SCH ×2 (06:10→17:23)
[2018-04-06 06:26] LABS: Basophils % 0.3 %; Lymphocytes % 13.2 %
[2018-04-06 06:27] LABS: Eosinophils # 0.1 K/mcL (0.0-0.6); Eosinophils % 1.7 %; Hematocrit 32.8 % (35.3-44.9); Hemoglobin 8.9 g/dL (11.5-15.4); Immature Granulocytes % 0.8 % (0-4); Mean Corpuscular HGB Conc 27.1 g/dL (31.6-35.5); Mean Corpuscular Hemoglobin 23.4 pg (28.0-33.3); Mean Corpuscular Volume 86.3 fL (83.0-100.0); Mean Platelet Volume 10.9 fL (9.4-12.4); Monocytes # 0.7 K/mcL (0.0-1.3); Monocytes % 9.9 %; Neutrophils # 5.3 K/mcL (1.6-8.9); Platelet Count 197 K/mcL (140-400); Red Cell Distribution Width 16.6 % (11.5-14.5); Segmented Neutrophils % 74.1 %
[2018-04-06 06:50] LABS: Alanine Aminotransferase 20 Units/L (7-52); Albumin 3.8 g/dL (3.5-5.7); Albumin/Globulin Ratio 1.6 (1.1-2.2); Alkaline Phosphatase 65 Units/L (34-104); Aspartate Amino Transferase 15 Units/L (13-39); BUN/Creatinine Ratio 26 (6-26); Bilirubin,Total 0.5 mg/dL (0.3-1.0); Blood Urea Nitrogen 20 mg/dL (8-23); Calcium 9.2 mg/dL (8.6-10.3); Carbon Dioxide > 45 mEq/L (23-29); Chloride 91 mEq/L (98-107); Globulin 2.4 g/dL (2.4-3.5); Glucose 111 mg/dL (70-105); Osmolality,Calculated 295 (280-300); Potassium 4.5 mEq/L (3.5-5.1); Sodium 141 mEq/L (136-145); Total Protein 6.2 g/dL (6.4-8.9); eGFR For Non-African Americans > 60 (> 60)
[2018-04-06 06:55] LABS: Platelet Estimate Normal (Normal)
[2018-04-06 06:56] LABS: Anisocytosis 1+ (Not Present); Hypochromasia Present (Not Present)
--- NOTE | 2018-04-06 08:55 | Anesthesia Evaluation PreOp ---
Date of Encounter: 04/06/18 Time of Encounter: 08:45 - Past History Planned Operation: Double Endo Cardiac History: HTN, Hyperlipidemia, Arrhythmia (Paroxysmal AFib) Pulmonary History: Denies Any Significant HX COMPONENT DESIGN ENGINEER History: Denies Any Significant HX Other Medical History: GERD, Other (Morbid Obesity) Anesthesia History: No Prior Anesthetic Complications : No Alcohol Use: none Drug use: none Medications and Allergies Alendronate Sodium [Fosamax] 70 mg PO WE 10/28/15 [History] Ascorbate Calcium [Vitamin C] 500 mg PO DAILY 10/28/15 [History] Cyanocobalamin (Vitamin B-12) [Vitamin B-12] 100 mcg PO DAILY 10/28/15 [History] Tiotropium [Spiriva] 2 puff PO HS 10/28/15 [History] Warfarin [Coumadin] 5 mg PO SUTUTHFRSA 10/28/15 [History] Dexlansoprazole [Dexilant] 60 mg PO DAILY 07/03/16 [History] Ferrous Sulfate [Iron] 325 mg PO DAILY 07/03/16 [History] Albuterol Sulfate [Proventil Hfa] 2 puff IH Q4H PRN 09/14/16 [History] Oxygen 3 l IH AD 10/24/16 [History] Fluticasone/Salmeterol [Advair 250-50 Diskus] 1 puff IH BID #1 blst.w.dev [Rx] Montelukast [Singulair] 10 mg PO DAILY 11/29/16 [History] Ropinirole HCl [Requip] 2 mg PO HS 11/29/16 [History] Magnesium Oxide [Mag-Ox] 400 mg PO DAILY #30 tablet 12/04/16 [Rx] Furosemide [Lasix] 20 mg PO BID #60 01/11/17 [Rx] Calcium Carbonate [Calcium] 600 mg PO BID 05/08/17 [History] Fluorometholone [Fml Forte] 1 drop LEFT EYE QID 05/08/17 [History] Diltiazem CD (24hr) [Cardizem CD] 120 mg PO DAILY cap.er.24h 05/21/17 [Rx] Acetaminophen/Diphenhydramine [Percogesic 325-12.5 mg Tablet] 1 - 2 tab PO HS PRN 07/19/17 [History] DiphenhydraMINE [Benadryl] 25 mg PO HS PRN capsule 07/23/17 [Rx] Cholecalciferol (D-3) [Vitamin D] 5,000 unit PO DAILY 03/14/18 [History] Lisinopril 2.5 mg PO BID 03/14/18 [History] Warfarin [Coumadin] 7.5 mg PO MOWE 03/14/18 [History] Propafenone HCl [Propafenone HCl ER] 225 mg PO Q12H 04/03/18 [History] 3 Allergy/AdvReac Type Severity Reaction Status Date / Time aspirin [ASA] Allergy Difficulty Verified 03/14/18 13:43 Breathing Penicillins Allergy Hives Verified 03/14/18 13:43 Sulfa (Sulfonamide Allergy Rash Verified 03/14/18 13:43 Antibiotics) - Meds/Allergy Pre-op Review Medications Reviewed: Yes Allergies Reviewed: Yes Beta Blockers on Current Med List: No Anesthesia Results - Labs 04/06/18 04:00 04/06/18 04:00 Laboratory Tests 04/06/18 04/06/18 04:00 04:00 Hgb 8.9 L Hct 32.8 L Plt Count 197 Sodium 141 Potassium 4.5 BUN 20 Creatinine 0.78 - Imaging EKG: report reviewed (AFib) Anesthesia Exam O2 Sat Height 1.6 m Height 1.6 m Weight 160.572 kg O2 Sat by Pulse Oximetry 99 O2 Sat by Pulse Oximetry 100 O2 Sat by Pulse Oximetry 100 O2 Sat by Pulse Oximetry 99 O2 Sat by Pulse Oximetry 93 O2 Sat by Pulse Oximetry 95 O2 Sat by Pulse Oximetry 97 Vital Signs Temp Pulse Resp BP Pulse Ox 98.3 F 88 24 169/66 98 04/03/18 12:12 04/03/18 12:12 04/03/18 12:12 04/03/18 12:12 04/03/18 12:12 Height: 5'3 Weight: 354 lbs NPO (# of Hours): MN Pain Scale: 0 - HEENT Pupil (Motor): Pupils equal, EOMI Mallampati: III Teeth: Edentulous Oral Opening: Less than or equal to 3 - COMPONENT DESIGN ENGINEER LOC: Oriented COMPONENT DESIGN ENGINEER Motor: Normal RUE, Normal LUE, Normal RLE, Normal LLE, Normal Face COMPONENT DESIGN ENGINEER Sensory: Normal: RUE, LUE, RLE, LLE, Face - Cardiac Rhythm: Regular Murmur: None JVD: No Carotid Bruit: No - Pulmonary Breath Sounds: bilateral Clear Respiratory Effort: Symmetrical Anesthesia Assess/Plan ASA Score: 3 (HTN MO) Modified Fatou Scale for Level of Consciousness: Cooperative, oriented, and tranquil Anesthetic Plan: MAC Monitoring Plan: Standard Monitors Recovery Plan: Other (Discussed MAC, agrees to proceed)
[2018-04-06] MEDS ORDERED: Propofol 500 MG/50 ML INFUS..BTL ONE (09:00)
[2018-04-06] MEDS ORDERED: Lidocaine -MPF 2% 2 ML VIAL ONE ×2 (09:11→09:17)
[2018-04-06] MEDS ORDERED: *HR* FentaNYL (PF) 100 MCG/2 ML VIAL ONE (09:20)
--- NOTE | 2018-04-06 10:23 | Anesthesia Evaluation Post Op ---
Date of Encounter: 04/06/18 Time of Encounter: 10:10 - Vital Signs Vital Signs: Vital Signs/O2 Sat/Glucose, Most Current Temp Pulse Resp BP Pulse Ox 04/06/18 08:55 98.5 F 81 16 190/82 100 04/06/18 08:05 98.5 F 89 18 161/79 99 - Lungs Lungs: Clear Ascult./Percussion - Airway Airway: Non-obstructed - Cardiovascular Regular Rate - Mental Status Mental Status: Alert & Oriented, Answers Appropriately - Pain Pain Scale: 0 - Nausea Vomiting Nausea Vomiting: Not Present - Hydration Hydration: NPO - Discharge PostOp Status: Transfer Patient to floor
[2018-04-06 11:00] LABS: % Iron Saturation 9 % (15-50); Ferritin 59 ng/mL (10-120); Iron 42 mcg/dL (50-170); Transferrin 334 mg/dL (203-362)
[2018-04-06] MEDS: Ascorbic Acid 500 MG TABLET PO SCH (11:54)
[2018-04-06] MEDS: Diltiazem CD (24hr) 120 MG CAPSULE PO SCH (11:54)
[2018-04-06] MEDS: Magnesium Oxide 400 MG TABLET PO SCH (11:54)
[2018-04-06] MEDS: Cholecalciferol (D-3) 1,000 UNIT TABLET PO SCH (11:54)
[2018-04-06] MEDS: Cyanocobalamin (B-12) 1,000 MCG TABLET PO SCH (11:54)
[2018-04-06] MEDS: Fluorometholone OPTH 5 ML BOTTLE LEFT EYE SCH ×4 (11:56→21:55)
[2018-04-06] MEDS: Furosemide 40 MG/4 ML VIAL IVP SCH ×3 (12:01→17:22)
[2018-04-06 12:29] LABS: INR 1.6; Prothrombin Time 17.6 Seconds (9.4-12.1)
--- NOTE | 2018-04-06 16:17 | Internal Med Progress Note ---
Hospitalist Progress Note - Encounter Date of Encounter: 04/06/18 Time of Encounter: 11:00 - Subjective Interval History: Patient seen and examined at bedside, she has returned from endoscopy requesting to eat. No active bleeding noted - Exam Vitals: Temp Pulse Resp BP Pulse Ox 98.3 F 87 16 128/79 95 04/06/18 11:02 04/06/18 11:02 04/06/18 11:02 04/06/18 11:02 04/06/18 11:02 Exam: General: Alert and oriented. In no acute distress. Skin:Normal color, no rash, no lesions. HEENT:EOM, pupils equal, round and reactive. Cardiovascular:Heart sounds distant. Normal S1 & S2, no rubs, murmurs or gallops. No JVD. Pulse regular. Lungs: Breath sounds decreased in bilateral lower lobes. Abdomen:Soft, non-tender, no rigidity. Extremities:No deformity, tenderness, or clubbing. Bilateral lower extremities with 2+ pitting edema. Neurological:Normal cognition and motor skills. Pulses:Carotid and radial pulses normal +2. Rest of the physical exam is non contributory. - Assessment and Plan (1) Congestive heart failure Current Visit: Yes Status: Acute Assessment and Plan: We will increase lasix to 60mg IV and closely monitor creatinine Continuous multifocal button generator. Cardiology consulted, will cont IV diuresis strict I/O patient on rythmol and recent cardioversion two weeks ago.- Cardiac diet. Fluid restriction 1500 ml encourage patient to elevate extremities - BRADEN hose placed (2) COPD exacerbation Current Visit: Yes Status: Acute Assessment and Plan: Stable at this time -Cont with O2 titrating to maintain Spo2 > 90% Cont with Singulair Cont with Bronchodilators (3) Hemoptysis Current Visit: Yes Status: Acute Assessment and Plan: Pulmonary consulted- no hemoptysis- SOB likely from CHF Patient presented with hemoptysis after starting Breo, patient discontinued without consulting her food safety officer who started her on it. No hemoptysis since stopping medication. will monitor (4) Hemoglobin decreased Current Visit: Yes Status: Chronic Assessment and Plan: Hgb 6.9 transfuse 2 units PRBC with lasix between each unit- up to 9.5-8.5 Hold coumadin for now- consult cardiology for anticoagulation stool for occult blood-positive last endoscopy 08/17/2017 A 5 mm polyp was found Non bleeding internal hemorrhoids were found A few medium mouthed diverticula - no evidence of diverticular bleeding GI consulted- colonoscopy- non bleeding polyps EGD- esophagitis large hiatal hernia , multiple gastric polyps DVT Prophylaxis: SCDs - Time Spent with Patient Total time spent is greater than 50% in coordination of care (as documented) at patient's floor/unit and/or counseling patient: Internal Medicine: Result - Labs CBC & Chem 7: 04/06/18 04:00 04/06/18 04:00 Labs: Short CBC 04/06/18 Range/Units 04:00 WBC 7.2 (4.3-11.1) K/mcL Hgb 8.9 L (11.5-15.4) g/dL Hct 32.8 L (35.3-44.9) % Plt Count 197 (140-400) K/mcL Neutrophils # 5.3 (1.6-8.9) K/mcL BMP 04/06/18 04:00 Sodium 141 Potassium 4.5 Chloride 91 L Carbon Dioxide > 45 H* BUN 20 Creatinine 0.78 Glucose 111 H Calcium 9.2 Liver Function 04/06/18 Range/Units 04:00 Total Bilirubin 0.5 (0.3-1.0) mg/dL AST 15 (13-39) Units/L ALT 20 (7-52) Units/L Alkaline Phosphatase 65 (34-104) Units/L Albumin 3.8 (3.5-5.7) g/dL - ABG Interpretation ABG results: PT/INR, D-dimer PT 17.6 Seconds (9.4-12.1) H 04/06/18 08:22 - VTE Documentation of Mechanical Device: Intermittent pneumatic compression device Consult Discharge Plan - Plan Referrals: Lisbet Ray, ASTRONOMY DEPARTMENT CHAIR [Primary Care Provider] - 04/11/18 9:30 am (1) Congestive heart failure Qualifiers: Heart failure type: unspecified Heart failure chronicity: chronic Qualified Code(s): I50.9 - Heart failure, unspecified
[2018-04-06] MEDS: rOPINIRole 1 MG TABLET PO SCH (21:37)
[2018-04-07 04:00] LABS: Basophils % 0.3 %
[2018-04-07 04:02] LABS: Eosinophils # 0.1 K/mcL (0.0-0.6); Eosinophils % 1.2 %; Hematocrit 34.7 % (35.3-44.9); Hemoglobin 9.5 g/dL (11.5-15.4); Immature Granulocytes % 0.7 % (0-4); Lymphocytes # 0.8 K/mcL (0.6-4.6); Lymphocytes % 11.1 %; Mean Corpuscular HGB Conc 27.4 g/dL (31.6-35.5); Mean Corpuscular Hemoglobin 23.8 pg (28.0-33.3); Mean Platelet Volume 10.5 fL (9.4-12.4); Monocytes # 0.7 K/mcL (0.0-1.3); Monocytes % 10.7 %; Platelet Count 209 K/mcL (140-400); Red Blood Count 3.99 M/mcL (3.82-4.97); Red Cell Distribution Width 16.6 % (11.5-14.5)
[2018-04-07 04:07] LABS: Neutrophils # 5.2 K/mcL (1.6-8.9)
[2018-04-07 04:20] LABS: Anisocytosis 1+ (Not Present); Hypochromasia Present (Not Present); Platelet Estimate Normal (Normal); Stomatocytes 1+ (Not Present)
[2018-04-07 04:26] LABS: Alanine Aminotransferase 21 Units/L (7-52); Albumin 3.7 g/dL (3.5-5.7); Albumin/Globulin Ratio 1.5 (1.1-2.2); Alkaline Phosphatase 67 Units/L (34-104); Aspartate Amino Transferase 15 Units/L (13-39); BUN/Creatinine Ratio 28 (6-26); Bilirubin,Total 0.4 mg/dL (0.3-1.0); Blood Urea Nitrogen 26 mg/dL (8-23); Calcium 9.7 mg/dL (8.6-10.3); Carbon Dioxide > 45 mEq/L (23-29); Chloride 91 mEq/L (98-107); Globulin 2.5 g/dL (2.4-3.5); Glucose 133 mg/dL (70-105); Osmolality,Calculated 303 (280-300); Potassium 4.3 mEq/L (3.5-5.1); Sodium 143 mEq/L (136-145); Total Protein 6.2 g/dL (6.4-8.9); eGFR For Non-African Americans > 60 (> 60)
[2018-04-07] MEDS: Pantoprazole 40 MG VIAL IVP SCH ×2 (05:21→16:42)
[2018-04-07] MEDS: Cholecalciferol (D-3) 1,000 UNIT TABLET PO SCH (07:54)
[2018-04-07] MEDS: Cyanocobalamin (B-12) 1,000 MCG TABLET PO SCH (07:54)
[2018-04-07] MEDS: Ascorbic Acid 500 MG TABLET PO SCH (07:55)
[2018-04-07] MEDS: Diltiazem CD (24hr) 120 MG CAPSULE PO SCH (07:55)
[2018-04-07] MEDS: Furosemide 40 MG/4 ML VIAL IVP SCH ×2 (07:55→16:42)
[2018-04-07] MEDS: Magnesium Oxide 400 MG TABLET PO SCH (07:55)
[2018-04-07] MEDS: Fluorometholone OPTH 5 ML BOTTLE LEFT EYE SCH ×5 (08:05→21:26)
--- NOTE | 2018-04-07 08:11 | Internal Med Progress Note ---
Hospitalist Progress Note - Encounter Date of Encounter: 04/07/18 Time of Encounter: 11:00 - Subjective Interval History: Patient with shortness of breath secondary to acute on chronic heart failure Patient reports slight improvement in shortness of breath with recent increase and IV diuretic Patient hemoglobin stable status post transfusion - Exam Vitals: Temp Pulse Resp BP Pulse Ox 98.2 F 80 17 137/88 99 04/07/18 07:08 04/07/18 07:08 04/07/18 07:08 04/07/18 07:08 04/07/18 08:06 Exam: Gen.: Nonacute distress, alert and oriented 3 ENT: Mucosal membranes moist Respiratory: Lungs are clear to auscultation bilaterally without any wheezing rhonchi or rales Cardiovascular: Normal S1 and S2 regular rate rhythm no murmurs rubs or gallops Abdomen: Soft, nontender and nondistended with positive bowel sounds Extremities: Bilateral lower extremity edema Skin: Pale - Assessment and Plan (1) Diastolic congestive heart failure, NYHA class 3 Current Visit: Yes Status: Chronic Assessment and Plan: Patient noted to have cardiomegaly with pulmonary vascular congestion on chest x -ray Echocardiogram on 08/2017 revealed preserved LVEF with mild diastolic dysfunction She is still symptomatic with shortness of breath Continue IV diuresis (2) COPD (chronic obstructive pulmonary disease) Current Visit: No Status: Chronic Assessment and Plan: Continue home dose of Advair and Spiriva in addition to albuterol nebs (3) Acute on chronic anemia Current Visit: Yes Status: Acute Assessment and Plan: Hemoglobin now 9.5 status post 2 units of packed red blood cells Stool was occult positive GI consulted with recommendations for EGD which showed a single colonic angiodysplasia and ectasia which was treated with argon plasma coagulation. Will continue to monitor (4) Hemoptysis Current Visit: Yes Status: Acute Assessment and Plan: Resolved; continue to monitor DVT Prophylaxis: Contraindicated due to concerns for GI bleed - Time Spent with Patient Total time spent is greater than 50% in coordination of care (as documented) at patient's floor/unit and/or counseling patient: Internal Medicine: Result - Labs CBC & Chem 7: 04/07/18 03:45 04/07/18 03:45 Labs: Short CBC 04/07/18 Range/Units 03:45 WBC 6.9 (4.3-11.1) K/mcL Hgb 9.5 L (11.5-15.4) g/dL Hct 34.7 L (35.3-44.9) % Plt Count 209 (140-400) K/mcL Neutrophils # 5.2 (1.6-8.9) K/mcL BMP 04/07/18 03:45 Sodium 143 Potassium 4.3 Chloride 91 L Carbon Dioxide > 45 H* BUN 26 H Creatinine 0.92 Glucose 133 H Calcium 9.7 Liver Function 04/07/18 Range/Units 03:45 Total Bilirubin 0.4 (0.3-1.0) mg/dL AST 15 (13-39) Units/L ALT 21 (7-52) Units/L Alkaline Phosphatase 67 (34-104) Units/L Albumin 3.7 (3.5-5.7) g/dL - ABG Interpretation ABG results: PT/INR, D-dimer PT 17.6 Seconds (9.4-12.1) H 04/06/18 08:22 - VTE Documentation of Mechanical Device: Intermittent pneumatic compression device Consult Discharge Plan - Plan Referrals: Lisbet Ray, SIDE SEAM TENDER [Primary Care Provider] - 04/11/18 9:30 am (1) Diastolic congestive heart failure, NYHA class 3 Qualifiers: Congestive heart failure chronicity: acute on chronic Qualified Code(s): I50.33 - Acute on chronic diastolic (congestive) heart failure (2) COPD (chronic obstructive pulmonary disease) Qualifiers: COPD type: unspecified COPD Qualified Code(s): J44.9 - Chronic obstructive pulmonary disease, unspecified
--- NOTE | 2018-04-07 09:35 | Cardiology Progress Note ---
Date of Encounter: 04/07/18 Time of Encounter: 07:45 Assessment and Plan (1) Atrial fibrillation Current Visit: No Status: Chronic Per cardiology: -Known PAF, on rhythmol 225mg (long acting) Q12 hours at home. Not on formulary at [facility], continue short-acting. On coumadin for anticoagulation. -Recent ZOILA/DCCV 03/15/18. -ECG upon admission SR, HR 84. QRS 86ms. Remains in NSR. s/p 2 units of PRBC on 04/04; H/H appears to remain stable. Underwent GI work-up (EGD, colonoscopy) without clear source of bleeding noted. Coumadin has been held per primary service/GI due to continue anemia (recent admission ~1 month ago received 1 unit PRCB). Ideally, patient would remain on full AC due to recent DCCV and increased risk of CVA/embolic event, however it appears AC is contraindication due to continued GI bleed. Discussed with Dr. White; unable to start low dose ASA d/t allergy. Will start 75 mg daily of Plavix, monitor H/H closely, if declines may need to discontinue. Continue Rythmol for now, as she remains in NSR, if afib recurs, may need to discontinue. Recommend close outpatient follow-up with [facility]. Qualifiers: Atrial fibrillation type: paroxysmal Qualified Code(s): I48.0 - Paroxysmal atrial fibrillation (2) Diastolic congestive heart failure, NYHA class 3 Current Visit: Yes Status: Chronic Per cardiology: -Known diastolic CHF. -Admitted with CHF exacerbation. -Chest x-ray with increased pulmonary vascular changes. -Volume overloaded on exam. -Reports 12 pound weight gain at home. -TTE 08/2017 with LVEF preserved, mild diastolic dsyfunction, no segmental wall motion abnormalities noted. -I&O's remain positive, +5 liters. Continue IV diuresis per primary team. -Strict i/os, Na/fluid restriction, daily weights. Qualifiers: Congestive heart failure chronicity: acute on chronic Qualified Code(s): I50.33 - Acute on chronic diastolic (congestive) heart failure Discussion w patient/family: The assessment and plan as outlined above was discussed with the patient and/or family members who expressed understanding and agreement. All questions were answered. Thank you for involving us in the care of your patient. Please call with any questions. The patient will be discussed and reviewed with Dr. White; changes to be made accordingly. Objective Vital Signs, Last 4 Hours Temp Pulse Resp BP Pulse Ox 04/07/18 08:06 99 04/07/18 07:08 98.2 F 80 17 137/88 99 Results 04/07/18 03:45 04/07/18 03:45 Lab Results 04/07/18 04/07/18 03:45 03:45 WBC 6.9 Hgb 9.5 L Hct 34.7 L Plt Count 209 Sodium 143 Potassium 4.3 Chloride 91 L Carbon Dioxide > 45 H* BUN 26 H Creatinine 0.92 Glucose 133 H Calcium 9.7 Total Bilirubin 0.4 AST 15 ALT 21 Alkaline Phosphatase 67 Active Medications Albuterol Sulfate (Albuterol Inhaler) 2 puff IH Q4H PRN PRN Reason: Dyspnea Stop: 10/03/18 16:35 Albuterol/Ipratropium (Duoneb) 3 ml IH [id number] PRN PRN Reason: Shortness Of Breath/Wheezing Stop: 10/03/18 14:15 Ascorbic Acid (Vitamin C) 500 mg PO DAILY [facility] Stop: 10/04/18 09:01 Last Admin: 04/07/18 07:55 Dose: 500 mg Budesonide/Formoterol Fumarate (Symbicort) 2 puff IH BIDR PRN PRN Reason: Bronchospasm Stop: 10/03/18 22:01 Calcium Carbonate (Tums) 500 mg PO BID [facility] Stop: 10/03/18 21:01 Last Admin: 04/07/18 07:55 Dose: 500 mg Cyanocobalamin (Vitamin B12) 1,000 mcg PO DAILY TIM Stop: 10/04/18 09:01 Last Admin: 04/07/18 07:54 Dose: 1,000 mcg Diltiazem HCl (Cardizem Cd) 120 mg PO DAILY [facility] Stop: 10/04/18 09:01 Last Admin: 04/07/18 07:55 Dose: 120 mg Ferrous Sulfate (Ferrous Sulfate) 325 mg PO DAILY [facility] Stop: 10/04/18 09:01 Last Admin: 04/07/18 07:55 Dose: 325 mg Fluorometholone (Fml) 1 drop LEFT EYE QID [facility] Stop: 10/03/18 17:01 Last Admin: 04/07/18 08:36 Dose: Not Given Furosemide (Lasix) 60 mg IVP BIDDIURETIC TIM Stop: 10/06/18 18:01 Last Admin: 04/07/18 07:55 Dose: 60 mg Hydralazine HCl (Hydralazine) 10 mg IVP Q6HR PRN PRN Reason: Hypertension Stop: 10/06/18 20:26 Last Admin: 04/06/18 21:37 Dose: 10 mg Lisinopril (Zestril) 2.5 mg PO DAILY TIM Stop: 10/04/18 09:01 Last Admin: 04/07/18 07:55 Dose: 2.5 mg Magnesium Oxide (Mag-Ox) 400 mg PO DAILY TIM PRN Reason: Protocol Stop: 10/04/18 09:01 Last Admin: 04/07/18 07:55 Dose: 400 mg Montelukast Sodium (Singulair) 10 mg PO DAILY TIM Stop: 10/04/18 09:01 Last Admin: 04/07/18 07:55 Dose: 10 mg Naloxone HCl (Narcan) 0.4 mg IVP Q2MIN PRN PRN Reason: SEE COMMENTS Stop: 10/03/18 13:33 Pantoprazole Sodium (Protonix) 40 mg IVP Q12HR TIM Stop: 10/04/18 18:01 Last Admin: 04/07/18 05:21 Dose: 40 mg Propafenone HCl (Rhythmol) 225 mg PO Q8HR TIM Stop: 10/06/18 08:01 Last Admin: 04/07/18 07:55 Dose: 225 mg Ropinirole HCl (Requip) 2 mg PO HS TIM Stop: 10/03/18 21:01 Last Admin: 04/06/18 21:37 Dose: 2 mg Tiotropium Huntley (Spiriva) 18 mcg IH DAILY@2200 PRN PRN Reason: Bronchospasm Stop: 10/03/18 22:01 Vitamin D (Vitamin D) 5,000 unit PO DAILY TIM Stop: 10/04/18 09:01 Last Admin: 04/07/18 07:54 Dose: 5,000 unit - VTE Documentation of Mechanical Device: Intermittent pneumatic compression device Consult Discharge Plan - Plan Referrals: Lisbet Ray CNP [Primary Care Provider] - 04/11/18 9:30 am
[2018-04-07] MEDS: rOPINIRole 1 MG TABLET PO SCH (21:25)
[2018-04-08] MEDS: Pantoprazole 40 MG VIAL IVP SCH ×2 (05:31→16:32)
[2018-04-08 06:52] LABS: Mean Platelet Volume 10.5 fL (9.4-12.4)
[2018-04-08 06:54] LABS: Basophils % 0.3 %; Eosinophils # 0.1 K/mcL (0.0-0.6); Eosinophils % 2.1 %; Hematocrit 32.6 % (35.3-44.9); Hemoglobin 8.9 g/dL (11.5-15.4); Immature Granulocytes % 0.5 % (0-4); Lymphocytes % 15.7 %; Mean Corpuscular HGB Conc 27.3 g/dL (31.6-35.5); Mean Corpuscular Hemoglobin 23.5 pg (28.0-33.3); Mean Corpuscular Volume 86.2 fL (83.0-100.0); Monocytes # 0.6 K/mcL (0.0-1.3); Neutrophils # 4.4 K/mcL (1.6-8.9); Platelet Count 207 K/mcL (140-400); Red Blood Count 3.78 M/mcL (3.82-4.97); Segmented Neutrophils % 71.4 %
[2018-04-08 07:12] LABS: BUN/Creatinine Ratio 33 (6-26); Blood Urea Nitrogen 33 mg/dL (8-23); Calcium 9.3 mg/dL (8.6-10.3); Carbon Dioxide > 45 mEq/L (23-29); Chloride 90 mEq/L (98-107); Glucose 209 mg/dL (70-105); Osmolality,Calculated 305 (280-300); Potassium 4.1 mEq/L (3.5-5.1); Sodium 141 mEq/L (136-145); eGFR For Non-African Americans 55 (> 60)
[2018-04-08 07:30] LABS: Hypochromasia Present (Not Present)
[2018-04-08 07:31] LABS: Platelet Estimate Normal (Normal)
--- NOTE | 2018-04-08 08:23 | Internal Med Progress Note ---
Hospitalist Progress Note - Encounter Date of Encounter: 04/08/18 Time of Encounter: 11:00 - Subjective Interval History: Patient presents with hemoptysis which has resolved in addition to shortness of breath secondary to acute on chronic heart failure Patient reports that lower extremity edema is improving as is her shortness of breath. In addition, patient does report of symptoms of panic attack mainly occurring at night as she sleeping; will give a trial of Xanax this evening - Exam Vitals: Temp Pulse Resp BP Pulse Ox 98.4 F 85 18 147/84 98 04/08/18 07:49 04/08/18 07:49 04/08/18 07:49 04/08/18 07:49 04/08/18 07:49 Exam: Gen.: Nonacute distress, alert and oriented 3 ENT: Mucosal membranes moist Respiratory: Lungs are clear to auscultation bilaterally without any wheezing rhonchi or rales Cardiovascular: Normal S1 and S2 regular rate rhythm no murmurs rubs or gallops Abdomen: Soft, nontender and nondistended with positive bowel sounds Extremities: Bilateral lower extremity edema Skin: Pale Psychiatry: Anxiety - Assessment and Plan (1) Diastolic congestive heart failure, NYHA class 3 Current Visit: Yes Status: Chronic Assessment and Plan: Patient noted to have cardiomegaly with pulmonary vascular congestion on chest x -ray Echocardiogram on 08/2017 revealed preserved LVEF with mild diastolic dysfunction Patient has diuresed 2.5 L in 24 hours with a 3 kg weight loss since admission Continue IV diuresis (2) COPD (chronic obstructive pulmonary disease) Current Visit: No Status: Chronic Assessment and Plan: Continue home dose of Advair and Spiriva in addition to albuterol nebs (3) Acute on chronic anemia Current Visit: Yes Status: Acute Assessment and Plan: Hemoglobin now 8.9 status post 2 units of packed red blood cells Stool was occult positive GI consulted with recommendations for EGD which showed a single colonic angiodysplasia and ectasia which was treated with argon plasma coagulation. Will continue to monitor (4) Hemoptysis Current Visit: Yes Status: Acute Assessment and Plan: Resolved; continue to monitor (5) Panic disorder [episodic paroxysmal anxiety] Current Visit: Yes Status: Acute Assessment and Plan: Patient reports of having panic attacks daily at bedtime She does admit to stressors with recent move from [place] due to both her and her losing her jobs Will give a trial of Xanax 0.5 mg at bedtime this evening and reevaluate in the morning DVT Prophylaxis: Contraindicated due to concerns for GI bleed Recommendations for Plavix per cardiology - Time Spent with Patient Total time spent is greater than 50% in coordination of care (as documented) at patient's floor/unit and/or counseling patient: Internal Medicine: Result - Labs CBC & Chem 7: 04/08/18 06:21 04/08/18 06:22 Labs: Short CBC 04/08/18 Range/Units 06:21 WBC 6.1 (4.3-11.1) K/mcL Hgb 8.9 L (11.5-15.4) g/dL Hct 32.6 L (35.3-44.9) % Plt Count 207 (140-400) K/mcL Neutrophils # 4.4 (1.6-8.9) K/mcL BMP 04/08/18 06:22 Sodium 141 Potassium 4.1 Chloride 90 L Carbon Dioxide > 45 H* BUN 33 H Creatinine 1.00 Glucose 209 H Calcium 9.3 - ABG Interpretation ABG results: PT/INR, D-dimer PT 17.6 Seconds (9.4-12.1) H 04/06/18 08:22 - VTE Documentation of Mechanical Device: Intermittent pneumatic compression device Consult Discharge Plan - Plan Referrals: Lisbet Ray SET KEY DRIVER [Primary Care Provider] - 04/11/18 9:30 am (1) Diastolic congestive heart failure, NYHA class 3 Qualifiers: Congestive heart failure chronicity: acute on chronic Qualified Code(s): I50.33 - Acute on chronic diastolic (congestive) heart failure (2) COPD (chronic obstructive pulmonary disease) Qualifiers: COPD type: unspecified COPD Qualified Code(s): J44.9 - Chronic obstructive pulmonary disease, unspecified
[2018-04-08] MEDS: Magnesium Oxide 400 MG TABLET PO SCH (10:22)
[2018-04-08] MEDS: Ascorbic Acid 500 MG TABLET PO SCH (10:22)
[2018-04-08] MEDS: Cyanocobalamin (B-12) 1,000 MCG TABLET PO SCH (10:22)
[2018-04-08] MEDS: Cholecalciferol (D-3) 1,000 UNIT TABLET PO SCH (10:22)
[2018-04-08] MEDS: Furosemide 40 MG/4 ML VIAL IVP SCH ×2 (10:23→16:32)
[2018-04-08] MEDS: Diltiazem CD (24hr) 120 MG CAPSULE PO SCH (10:23)
[2018-04-08] MEDS: Fluorometholone OPTH 5 ML BOTTLE LEFT EYE SCH ×4 (10:32→20:21)
--- NOTE | 2018-04-08 14:29 | Electrocardiograph Report ---
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
[2018-04-08] MEDS: rOPINIRole 1 MG TABLET PO SCH (20:20)
[2018-04-08] MEDS ORDERED: ALPRAZolam 0.5 MG TABLET PO PRN (21:00)
[2018-04-09] MEDS: Pantoprazole 40 MG VIAL IVP SCH (04:35)
[2018-04-09] MEDS: Cholecalciferol (D-3) 1,000 UNIT TABLET PO SCH (09:07)
[2018-04-09] MEDS: Ascorbic Acid 500 MG TABLET PO SCH (09:07)
[2018-04-09] MEDS: Cyanocobalamin (B-12) 1,000 MCG TABLET PO SCH (09:07)
[2018-04-09] MEDS: Magnesium Oxide 400 MG TABLET PO SCH (09:07)
[2018-04-09] MEDS: Diltiazem CD (24hr) 120 MG CAPSULE PO SCH (09:08)
[2018-04-09] MEDS: Furosemide 40 MG/4 ML VIAL IVP SCH ×2 (09:08→16:01)
[2018-04-09] MEDS: Fluorometholone OPTH 5 ML BOTTLE LEFT EYE SCH ×4 (09:08→20:16)
--- NOTE | 2018-04-09 11:11 | Internal Med Progress Note ---
Hospitalist Progress Note - Encounter Date of Encounter: 04/09/18 Time of Encounter: 10:50 - Subjective Interval History: Patient seen and examined this morning. Feeling better. Has been urinating significantly overnight. Breathing better. - Exam Vitals: Temp Pulse Resp BP Pulse Ox 98.0 F 86 18 145/71 97 04/09/18 10:48 04/09/18 10:48 04/09/18 10:48 04/09/18 10:48 04/09/18 10:48 Exam: Gen.: Nonacute distress, alert and oriented 3. Obese ENT: Mucosal membranes moist Respiratory: Lungs are clear to auscultation bilaterally without any wheezing rhonchi or rales Cardiovascular: Normal S1 and S2 regular rate rhythm no murmurs rubs or gallops Abdomen: Soft, nontender and nondistended with positive bowel sounds Extremities: 2+ Bilateral lower extremity edema Skin: Pale Psychiatry: Anxiety - Assessment and Plan (1) COPD (chronic obstructive pulmonary disease) Current Visit: No Status: Chronic (2) Hemoptysis Current Visit: Yes Status: Acute (3) Diastolic congestive heart failure, NYHA class 3 Current Visit: Yes Status: Chronic (4) Acute on chronic anemia Current Visit: Yes Status: Acute (5) Panic disorder [episodic paroxysmal anxiety] Current Visit: Yes Status: Acute - Summary of Assessment and Plan Summary of Assessment and Plan: Diastolic congestive heart failure, NYHA class 3 - Patient noted to have cardiomegaly with pulmonary vascular congestion on chest x-ray - Echocardiogram on 08/2017 revealed preserved LVEF with mild diastolic dysfunction - 6 kg weight loss since admission on diuretics. Urinating well but still with significant edema. - Continue IV diuresis. Strict I/O, fluid and salt restriction. Acute on chronic anemia - Hemoglobin now 8.9 status post 2 units of packed red blood cells - Stool was occult positive - GI consulted. Endoscopy with single colonic angiodysplasia and ectasia which was treated with argon plasma coagulation. - Hb Stable. Will continue to monitor Atrial fibrillation - On rhythmol. Recent ZOILA and DCCV on 03/15/2018. In Sinus rhytm. - On coumadin for anticoagulation at home. However with Bleeding. s/p 2 units of PRBC on 04/04. - Ideally, patient would remain on full AC due to recent DCCV and increased risk of CVA/embolic event. However coumadin has been held due to GI bleed. - Unable to start low dose ASA d/t allergy. started on Plavix. Hb stable - if afib recurs, may need to discontinue propafenone - Close outpatient follow-up with [facility]. COPD - Continue home dose of Advair and Spiriva - c/w albuterol nebs Hemoptysis - Resolved - continue to monitor Panic disorder - Patient reports of having panic attacks daily at bedtime - She does admit to stressors with recent move from [place] due to both her and her losing her jobs - prn Xanax 0.5 mg DVT Prophylaxis: - Contraindicated due to concerns for GI bleed - Recommendations for Plavix per cardiology - Time Spent with Patient Total time spent is greater than 50% in coordination of care (as documented) at patient's floor/unit and/or counseling patient: Internal Medicine: Result - Labs CBC & Chem 7: 04/08/18 06:21 04/08/18 06:22 - ABG Interpretation ABG results: PT/INR, D-dimer PT 17.6 Seconds (9.4-12.1) H 04/06/18 08:22 - VTE Documentation of Mechanical Device: Intermittent pneumatic compression device Consult Discharge Plan - Plan Referrals: Lisbet Ray, APPLICATIONS DEVELOPER [Primary Care Provider] - 04/11/18 9:30 am (1) COPD (chronic obstructive pulmonary disease) Qualifiers: COPD type: unspecified COPD Qualified Code(s): J44.9 - Chronic obstructive pulmonary disease, unspecified (3) Diastolic congestive heart failure, NYHA class 3 Qualifiers: Congestive heart failure chronicity: acute on chronic Qualified Code(s): I50.33 - Acute on chronic diastolic (congestive) heart failure
[2018-04-09] MEDS ORDERED: ALPRAZolam 0.5 MG TABLET PO PRN (20:12)
[2018-04-09] MEDS: rOPINIRole 1 MG TABLET PO SCH (20:16)
[2018-04-10] MEDS: Magnesium Oxide 400 MG TABLET PO SCH (09:32)
[2018-04-10] MEDS: Cholecalciferol (D-3) 1,000 UNIT TABLET PO SCH (09:32)
[2018-04-10] MEDS: Ascorbic Acid 500 MG TABLET PO SCH (09:33)
[2018-04-10] MEDS: Cyanocobalamin (B-12) 1,000 MCG TABLET PO SCH (09:33)
[2018-04-10] MEDS: Diltiazem CD (24hr) 120 MG CAPSULE PO SCH (09:33)
[2018-04-10] MEDS: Furosemide 40 MG/4 ML VIAL IVP SCH ×2 (09:43→16:34)
--- NOTE | 2018-04-10 10:20 | Internal Med Progress Note ---
Hospitalist Progress Note - Encounter Date of Encounter: 04/10/18 Time of Encounter: 11:38 - Subjective Interval History: Patient seen and examined this morning. Feeling better. Has good urine output. Breathing better. Decreased hand and face swelling. LE swelling decreasing - Exam Vitals: Temp Pulse Resp BP Pulse Ox 97.9 F 78 18 115/54 98 04/10/18 07:22 04/10/18 07:22 04/10/18 07:22 04/10/18 07:22 04/10/18 07:22 Exam: Gen.: Nonacute distress, alert and oriented 3. Obese ENT: Mucosal membranes moist Respiratory: Lungs are clear to auscultation bilaterally without any wheezing rhonchi or rales Cardiovascular: Normal S1 and S2 regular rate rhythm no murmurs rubs or gallops Abdomen: Soft, nontender and nondistended with positive bowel sounds Extremities: 2+ Bilateral lower extremity edema Skin: Pale Psychiatry: Anxiety - Assessment and Plan (1) COPD (chronic obstructive pulmonary disease) Current Visit: No Status: Chronic (2) Hemoptysis Current Visit: Yes Status: Acute (3) Diastolic congestive heart failure, NYHA class 3 Current Visit: Yes Status: Chronic (4) Acute on chronic anemia Current Visit: Yes Status: Acute (5) Panic disorder [episodic paroxysmal anxiety] Current Visit: Yes Status: Acute - Summary of Assessment and Plan Summary of Assessment and Plan: Diastolic congestive heart failure, NYHA class 3 - Patient noted to have cardiomegaly with pulmonary vascular congestion on chest x-ray - Echocardiogram on 08/2017 revealed preserved LVEF with mild diastolic dysfunction - 6 kg weight loss since admission on diuretics. - Continue IV diuresis for 1 more day. Strict I/O, fluid and salt restriction. - Plan for discharge tomorrow. Acute on chronic anemia - Hemoglobin now 8.9 status post 2 units of packed red blood cells - Stool was occult positive - GI consulted. Endoscopy with single colonic angiodysplasia and ectasia which was treated with argon plasma coagulation. - Hb Stable. Will continue to monitor Atrial fibrillation - On rhythmol. Recent ZOILA and DCCV on 03/15/2018. In Sinus rhytm. - On coumadin for anticoagulation at home. However with Bleeding. s/p 2 units of PRBC on 04/04. - Ideally, patient would remain on full AC due to recent DCCV and increased risk of CVA/embolic event. However coumadin has been held due to GI bleed. - Unable to start low dose ASA d/t allergy. started on Plavix. Hb stable - if afib recurs, may need to discontinue propafenone - Close outpatient follow-up with [facility]. COPD - Continue home dose of Advair and Spiriva - c/w albuterol nebs Hemoptysis - Resolved - continue to monitor Panic disorder - Patient reports of having panic attacks daily at bedtime - Xanax is making her too drowsy. Will stop it. DVT Prophylaxis: - Contraindicated due to concerns for GI bleed - Recommendations for Plavix per cardiology - Time Spent with Patient Total time spent is greater than 50% in coordination of care (as documented) at patient's floor/unit and/or counseling patient: Internal Medicine: Result - Labs CBC & Chem 7: 04/08/18 06:21 04/10/18 10:20 - ABG Interpretation ABG results: PT/INR, D-dimer PT 17.6 Seconds (9.4-12.1) H 04/06/18 08:22 - VTE Documentation of Mechanical Device: Intermittent pneumatic compression device Consult Discharge Plan - Plan Referrals: Lisbet Ray, [employer] PR[employer] SUPERVISOR [Primary Care Provider] - 04/11/18 9:30 am (1) COPD (chronic obstructive pulmonary disease) Qualifiers: COPD type: unspecified COPD Qualified Code(s): J44.9 - Chronic obstructive pulmonary disease, unspecified (3) Diastolic congestive heart failure, NYHA class 3 Qualifiers: Congestive heart failure chronicity: acute on chronic Qualified Code(s): I50.33 - Acute on chronic diastolic (congestive) heart failure
[2018-04-10] MEDS: Fluorometholone OPTH 5 ML BOTTLE LEFT EYE SCH ×4 (10:31→20:42)
[2018-04-10 11:15] LABS: BUN/Creatinine Ratio 36 (6-26); Blood Urea Nitrogen 39 mg/dL (8-23); Calcium 9.6 mg/dL (8.6-10.3); Carbon Dioxide 45 mEq/L (23-29); Chloride 90 mEq/L (98-107); Glucose 155 mg/dL (70-105); Osmolality,Calculated 305 (280-300); Sodium 141 mEq/L (136-145); eGFR For Non-African Americans 50 (> 60)
[2018-04-10] MEDS: Budesonide/Formoterol 160/4.5 1 PUFF INH IH SCH (19:56)
[2018-04-10] MEDS: rOPINIRole 1 MG TABLET PO SCH (20:43)
[2018-04-10] MEDS ORDERED: Tiotropium 18 MCG inhalation IH SCH (22:00)
[2018-04-11] MEDS: Budesonide/Formoterol 160/4.5 1 PUFF INH IH SCH (07:17)
[2018-04-11] MEDS: Fluorometholone OPTH 5 ML BOTTLE LEFT EYE SCH (09:00)
[2018-04-11 09:10] LABS: Hematocrit 35.7 % (35.3-44.9); Hemoglobin 9.9 g/dL (11.5-15.4); Mean Corpuscular HGB Conc 27.7 g/dL (31.6-35.5); Mean Corpuscular Hemoglobin 24.4 pg (28.0-33.3); Mean Corpuscular Volume 88.1 fL (83.0-100.0); Mean Platelet Volume 11.4 fL (9.4-12.4); Platelet Count 225 K/mcL (140-400); Red Blood Count 4.05 M/mcL (3.82-4.97); Red Cell Distribution Width 16.7 % (11.5-14.5)
[2018-04-11] MEDS: Magnesium Oxide 400 MG TABLET PO SCH (09:13)
[2018-04-11] MEDS: Ascorbic Acid 500 MG TABLET PO SCH (09:13)
[2018-04-11] MEDS: Furosemide 40 MG/4 ML VIAL IVP SCH (09:13)
[2018-04-11] MEDS: Cholecalciferol (D-3) 1,000 UNIT TABLET PO SCH (09:14)
[2018-04-11] MEDS: Cyanocobalamin (B-12) 1,000 MCG TABLET PO SCH (09:14)
[2018-04-11] MEDS: Diltiazem CD (24hr) 120 MG CAPSULE PO SCH (09:14)
[2018-04-11 09:33] LABS: BUN/Creatinine Ratio 46 (6-26); Blood Urea Nitrogen 49 mg/dL (8-23); Calcium 9.7 mg/dL (8.6-10.3); Carbon Dioxide 44 mEq/L (23-29); Chloride 89 mEq/L (98-107); Glucose 145 mg/dL (70-105); Osmolality,Calculated 304 (280-300); Potassium 4.4 mEq/L (3.5-5.1); Sodium 139 mEq/L (136-145); eGFR For Non-African Americans 51 (> 60)
[2018-04-11 11:31] VITALS: BP 164/80
--- NOTE | 2018-04-11 12:14 | Discharge Summary ---
- NOTES TO OUTPATIENT PROVIDER Notes to Outpatient Provider: Lasix dose has been increased to 40 BID temporarily. Still with some edema however weight approaching her baseline. Increase Lasix for 3-4 more days. Warfarin is on hold due to GI bleed. On Plavix as per cardiology. Follow with cardiology and GI in 2-3 weeks for further recommendation. Orders not resulted at time of discharge: Pending orders 04/08/18 06:04 Sputum Culture [Culture,Sputum with Gram Stain] [] Routine Date of Encounter: 04/11/18 Time of Encounter: 12:04 - Discharge Diagnosis (1) COPD (chronic obstructive pulmonary disease) Priority: Secondary Status: Chronic Qualifiers: COPD type: unspecified COPD Qualified Code(s): J44.9 - Chronic obstructive pulmonary disease, unspecified (2) Hemoptysis Priority: Primary Status: Acute (3) Diastolic congestive heart failure, NYHA class 3 Priority: Primary Status: Chronic Qualifiers: Congestive heart failure chronicity: acute on chronic Qualified Code(s): I50.33 - Acute on chronic diastolic (congestive) heart failure (4) Acute on chronic anemia Priority: Primary Status: Acute (5) Panic disorder [episodic paroxysmal anxiety] Priority: Secondary Status: Acute (6) Atrial fibrillation Priority: Primary Status: Acute Qualifiers: Atrial fibrillation type: paroxysmal Qualified Code(s): I48.0 - Paroxysmal atrial fibrillation (7) DVT prophylaxis Priority: Secondary Status: Acute Hospital course: Ms. Guevara is a 67 year old female with past medical history of CHF, hypertension , mitral fibrillation, COPD and asthma was admitted due to shortness of breath secondary to CHF exacerbation and anemia. She responded well to diuresing with the IV Lasix. She did have a transfusion for anemia and GI workup which showed angiodysplasia for which was treated endoscopically. Her Coumadin which she was on for atrial fibrillation was held given the risk benefit even with recent DCCV. She was started on Plavix. Patient's hemoglobin remained stable on Plavix which was continued on discharge. She was discharged on increased dose of Lasix for next couple of days to enable her to reach her dry weight. Cardiology saw patient and continued her propafenone and recomended to stop if afib recurs while on it. Patient to follow-up PCP within one week - Time Spent with Patient Total time spent providing and/or coordinating discharge services: Greater than 30 minutes - Discharge Medications Prescriptions: Clopidogrel [Plavix] 75 mg PO DAILY 30 Days #30 tablet Furosemide [Lasix] 40 mg PO BID 7 Days #14 tablet Home Medications: Alendronate Sodium [Fosamax] 70 mg PO WE 10/28/15 [History] Ascorbate Calcium [Vitamin C] 500 mg PO DAILY 10/28/15 [History] Cyanocobalamin (Vitamin B-12) [Vitamin B-12] 100 mcg PO DAILY 10/28/15 [History] Tiotropium [Spiriva] 2 puff PO HS 10/28/15 [History] Dexlansoprazole [Dexilant] 60 mg PO DAILY 07/03/16 [History] Ferrous Sulfate [Iron] 325 mg PO DAILY 07/03/16 [History] Albuterol Sulfate [Proventil Hfa] 2 puff IH Q4H PRN 09/14/16 [History] Oxygen 3 l IH AD 10/24/16 [History] Fluticasone/Salmeterol [Advair 250-50 Diskus] 1 puff IH BID #1 blst.w.dev [Rx] Montelukast [Singulair] 10 mg PO DAILY 11/29/16 [History] Ropinirole HCl [Requip] 2 mg PO HS 11/29/16 [History] Magnesium Oxide [Mag-Ox] 400 mg PO DAILY #30 tablet 12/04/16 [Rx] Furosemide [Lasix] 20 mg PO BID #60 01/11/17 [Rx] Calcium Carbonate [Calcium] 600 mg PO BID 05/08/17 [History] Fluorometholone [Fml Forte] 1 drop LEFT EYE QID 05/08/17 [History] Diltiazem CD (24hr) [Cardizem CD] 120 mg PO DAILY cap.er.24h 05/21/17 [Rx] Acetaminophen/Diphenhydramine [Percogesic 325-12.5 mg Tablet] 1 - 2 tab PO HS PRN 07/19/17 [History] DiphenhydraMINE [Benadryl] 25 mg PO HS PRN capsule 07/23/17 [Rx] Cholecalciferol (D-3) [Vitamin D] 5,000 unit PO DAILY 03/14/18 [History] Lisinopril 2.5 mg PO BID 03/14/18 [History] Propafenone HCl [Propafenone HCl ER] 225 mg PO Q12H 04/03/18 [History] Clopidogrel [Plavix] 75 mg PO DAILY 30 Days #30 tablet 04/11/18 [Rx] Furosemide [Lasix] 40 mg PO BID 7 Days #14 tablet 04/11/18 [Rx] Allergies/Adverse Reactions: 3 Allergy/AdvReac Type Severity Reaction Status Date / Time aspirin [ASA] Allergy Difficulty Verified 03/14/18 13:43 Breathing Penicillins Allergy Hives Verified 03/14/18 13:43 Sulfa (Sulfonamide Allergy Rash Verified 03/14/18 13:43 Antibiotics) Date of admission: 04/06/18 17:26 Primary care physician: Lisbet Ray CNP - Constitutional Vitals: Temp Pulse Resp BP Pulse Ox 98.3 F 80 19 164/80 100 04/11/18 11:30 04/11/18 11:30 04/11/18 11:30 04/11/18 11:30 04/11/18 11:30 General appearance: Present: cooperative, A&O X 3 Exam: Gen.: Nonacute distress, alert and oriented 3. Morbidly Obese ENT: Mucosal membranes moist Respiratory: Lungs are clear to auscultation bilaterally without any wheezing rhonchi or rales Cardiovascular: Normal S1 and S2 regular rate rhythm no murmurs rubs or gallops Abdomen: Soft, nontender and nondistended with positive bowel sounds Extremities: 2+ Bilateral lower extremity edema Skin: Warm and dry. Psychiatry: Anxiety - Patient Status Disposition: Home, Self-Care Condition: Good Functional capacity at discharge: independent ambulation Overall status at discharge: patient is back to baseline - Discharge Instructions Instructions: Furosemide (By mouth), Clopidogrel (By mouth), Heart Failure (DC) , Chronic Obstructive Pulmonary Disease (DC) Follow Up With: Lisbet Ray CNP [Primary Care Provider] - 04/17/18 1:30 pm (Follow up hospitalization appointment made for 04/17/18 at 01:30 pm with Lisbet Ray) - Diet and Activity Activity: resume usual activities as tolerated - VTE Documentation of Mechanical Device: Intermittent pneumatic compression device
== END 2018-04-11 13:21 | disposition home or self-care (01) | DRG 292 ==
LOC: EMEROOARM 12:11 → 3BNU 12:11 → SUATTDRO 04-06 17:26 → 2ANU 04-06 19:26
PROVIDERS: ADMIT Student in an Organized Health Care Education/Training Program; ATTEND Internal Medicine
PROC: ENDOCBX (2018-04-06 08:45)
PROC: ENDOEBX (2018-04-06 08:45)

== ENCOUNTER 2018-05-08 03:25 | Inpatient (IN) ==
[2018-05-08] MEDS ORDERED: Ipratropium/Albuterol Neb 3 ML IH ONE (03:34)
[2018-05-08] MEDS ORDERED: methylPREDNISolone 125 MG/2 ML VIAL IVP ONE (03:34)
--- NOTE | 2018-05-08 03:38 | Emergency Department Note ---
Disposition Clinical Impression: COPD with exacerbation, Hypoxia, Chronic anemia Disposition: Admitted As Inpatient Condition: Undetermined Referrals: Lisbet Ray CNP [Primary Care Provider] - Forms: ED Satisfaction Letter Time of Disposition: 06:06 SOB HPI - General Chief Complaint: ED Shortness of Breath/Dyspnea Stated Complaint: shortness of breath Time Seen by Provider: 05/08/18 03:26 Source: patient Mode of arrival: wheelchair Limitations: no limitations Nursing Notes Reviewed: Yes Vital Signs Reviewed: Yes - History of Present Illness 67-year-old female with extensive history of COPD and CHF arrives to the emergency department with respiratory distress. The patient states that she was asleep in the awoke to her panting and having difficulty breathing. The patient was brought in for evaluation at that time after increasing her normal 4 L nasal cannula to 8 L nasal cannula. Upon arrival to the emergency department her O2 saturations were 84% on 8 L nasal cannula. The patient was in mild to moderate respiratory distress. She had no cyanosis. She was tripoding upon arrival. The patient had poor lung movement on auscultation. She had mild wheezing that was noted the expiratory phase. The patient denied any associated chest pain, nausea, vomiting, fevers, chills, sputum production. The patient states that she has an extensive history of COPD exacerbations. Patient has never been intubated but has been admitted to the hospital numerous times for her COPD exacerbations as well as CHF exacerbations. Patient denies any worsening bilateral lower extremity edema. - Related Data Home Medications Medication Instructions Recorded Confirmed Alendronate Sodium [Fosamax] 70 mg PO WE 10/28/15 05/08/18 Ascorbate Calcium [Vitamin C] 500 mg PO DAILY 10/28/15 05/08/18 Cyanocobalamin (Vitamin B-12) 100 mcg PO DAILY 10/28/15 05/08/18 [Vitamin B-12] Tiotropium [Spiriva] 2 puff PO HS 10/28/15 05/08/18 Dexlansoprazole [Dexilant] 60 mg PO DAILY 07/03/16 05/08/18 Ferrous Sulfate [Iron] 325 mg PO DAILY 07/03/16 05/08/18 Albuterol Sulfate [Proventil Hfa] 2 puff IH Q4H PRN 09/14/16 05/08/18 Oxygen 3 l IH AD 10/24/16 05/08/18 Montelukast [Singulair] 10 mg PO DAILY 11/29/16 05/08/18 Ropinirole HCl [Requip] 4 mg PO HS 11/29/16 05/08/18 Calcium Carbonate [Calcium] 600 mg PO BID 05/08/17 05/08/18 Fluorometholone [Fml Forte] 1 drop LEFT EYE QID 05/08/17 05/08/18 Acetaminophen/Diphenhydramine 1 - 2 tab PO HS PRN 07/19/17 05/08/18 [Percogesic 325-12.5 mg Tablet] Cholecalciferol (D-3) [Vitamin D] 5,000 unit PO DAILY 03/14/18 05/08/18 Lisinopril 2.5 mg PO BID 03/14/18 05/08/18 Propafenone HCl [Propafenone HCl 325 mg PO Q12H 04/03/18 05/08/18 ER] Furosemide [Lasix] 20 mg PO HS 05/08/18 05/08/18 Furosemide [Lasix] 40 mg PO DAILY 05/08/18 05/08/18 Previous Rx's Medication Instructions Recorded Fluticasone/Salmeterol [Advair 1 puff IH BID #1 blst.w.dev 11/16/16 250-50 Diskus] Magnesium Oxide [Mag-Ox] 400 mg PO DAILY #30 tablet 12/04/16 Diltiazem CD (24hr) [Cardizem CD] 120 mg PO DAILY cap.er.24h 05/21/17 DiphenhydraMINE [Benadryl] 25 mg PO HS PRN capsule 07/23/17 Clopidogrel [Plavix] 75 mg PO DAILY 30 Days #30 tablet 04/11/18 Allergies Allergy/AdvReac Type Severity Reaction Status Date / Time aspirin [ASA] Allergy Difficulty Verified 03/14/18 13:43 Breathing Penicillins Allergy Hives Verified 03/14/18 13:43 Sulfa (Sulfonamide Allergy Rash Verified 03/14/18 13:43 Antibiotics) All systems ED: reviewed and negative except as stated. Constitutional: Denies: fever, chills, weakness Cardiovascular: Denies: chest pain Respiratory: Reports: dyspnea, wheezes. Denies: hemoptysis, stridor, sputum production Gastrointestinal: Denies: abdominal pain, nausea, vomiting Musculoskeletal: Denies: back pain, neck pain Neurological: Denies: headache, weakness Past Medical History - Past Medical History Attestation: Yes The following information was validated with the patient. Source: patient, old records reviewed Medical history: Reports: asthma, atrial fibrillation, CHF, COPD, GERD, hypertension, migraine Surgical history: Reports: cholecystectomy, hysterectomy Psychiatric history: Reports: no psych history POUCH MAKER history: Reports: no POUCH MAKER history - Social History Smoking Status: Former smoker Smokeless Tobacco Status: No Alcohol use: Reports: none Drug use: Reports: none Physical Exam - General Limitations: no limitations General appearance: alert, in distress (Moderate respiratory) - Head Head exam: atraumatic, normocephalic, normal inspection - Eye Eye exam: Present: normal appearance, PERRL, EOMI - ENT ENT exam: normal exam, normal oropharynx, mucous membranes moist - Neck Neck exam: Present: normal inspection, full ROM, trachea midline - Chest Chest inspection: Present: normal inspection, symmetric chest wall rise - Respiratory Respiratory exam: Present: respiratory distress (moderate), wheezes, accessory muscle use - Cardiovascular Cardiovascular exam: Present: regular rate, normal rhythm, normal heart sounds - Abdominal Exam Abdominal exam: Present: soft, Non-Tender. Absent: tenderness, distention, guarding, rebound, rigidity - Extremities Exam Extremities exam: Present: normal inspection, full ROM. Absent: tenderness, pedal edema - Neurological Exam Neurological exam: Present: alert, oriented X3 - Skin Skin exam: Present: warm, dry, intact, normal color Course Vital Signs Temperature 99.3 F 05/08/18 03:36 Pulse Rate 91 05/08/18 03:36 Respiratory Rate 21 05/08/18 03:36 Blood Pressure 154/104 05/08/18 03:36 O2 Sat by Pulse Oximetry 99 05/08/18 03:36 Temperature 99.3 F 05/08/18 03:36 Pulse Rate 94 05/08/18 05:16 Respiratory Rate 18 05/08/18 05:16 Blood Pressure 163/67 05/08/18 05:16 O2 Sat by Pulse Oximetry 100 05/08/18 05:16 Oxygen Delivery Oxygen Delivery Nasal Cannula Shortness of Breath/Dyspnea - MDM Narrative Medical decision making narrative: Patient's workup in the emergency department given streets findings consistent with COPD exacerbation. Chest x-ray does demonstrate some pulmonary edema but patient's BNP is within normal limits. The patient was administered 3 duo as well as given site and Medrol. The patient is resting comfortably and only on oxygen mask at this time. She did not tolerate BiPAP. Given the patient's low O2 saturation and COPD exacerbation, we will admit the patient to the hospital at this time. Patient agrees to plan of care. No further questions or concerns noted at this time. Patient accepted by Dr. Flynn. - Lab Data Lab results reviewed: Yes I reviewed the patient's lab results. Result diagrams: 05/08/18 04:23 05/08/18 04:23 Lab Results 05/08/18 05/08/18 05/08/18 Range/Units 04:23 04:23 04:23 WBC 7.2 (4.3-11.1) K/mcL RBC 3.37 L (3.82-4.97) M/mcL Hgb 8.0 L (11.5-15.4) g/dL Hct 29.7 L (35.3-44.9) % MCV 88.1 (83.0-100.0) fL MCH 23.7 L (28.0-33.3) pg MCHC 26.9 L (31.6-35.5) g/dL RDW 16.1 H (11.5-14.5) % Plt Count 160 (140-400) K/mcL MPV 11.0 (9.4-12.4) fL Immature Gran % 0.6 (0-4) % Seg Neutrophils % 79.2 % Lymphocytes % 8.9 % Monocytes % 9.3 % Eosinophils % 1.7 % Basophils % 0.3 % Neutrophils # 5.7 (1.6-8.9) K/mcL Lymphocytes # 0.6 (0.6-4.6) K/mcL Monocytes # 0.7 (0.0-1.3) K/mcL Eosinophils # 0.1 (0.0-0.6) K/mcL Basophils # 0.0 (0.0-0.2) K/mcL Platelet Estimate Normal (Normal) Polychromasia 1+ A (Not Present) Sodium 144 (136-145) mEq/L Potassium 4.3 (3.5-5.1) mEq/L Chloride 97 L (98-107) mEq/L Carbon Dioxide 45 H* (23-29) mEq/L BUN 26 H (8-23) mg/dL Creatinine 0.87 (0.60-1.20) mg/dL Est GFR ( Amer) > 60 (> 60) Est GFR (Non-Af Amer) > 60 (> 60) BUN/Creatinine Ratio 30 H (6-26) Glucose 110 H (70-105) mg/dL Calculated Osmolality 303 H (280-300) Calcium 9.6 (8.6-10.3) mg/dL Troponin I < 0.03 (< 0.04) ng/mL B-Natriuretic Peptide 51 (Less than 100) pg/mL - Radiology Data Radiology results reviewed: Yes I reviewed the patient's radiology results. Chest X-Ray 05/08/18 03:35 IMPRESSION: Limited exam with suspected pulmonary edema. D/ / Everett Baez MD / Everett Baez MD Interpreting Provider: Everett Baez MD Attestation Statement - Attestation Attestation: I examined this patient and my medical decision-making was reviewed with the Resident Physician. I agree with the documented findings, disposition and treatment plan as described except to the extent set forth below. COPD versus CHF. We will start bronchodilators. I did attempt to start BiPAP however the patient would not tolerate this. She was instructed that if her respiratory failure persisted she would require BiPAP. She was agreeable to try this in the future. She will be admitted for further management of possible COPD versus CHF exacerbation.
[2018-05-08] MEDS ORDERED: Nitroglycerin 1 INCH/GM PACKET TP ONE (04:23)
[2018-05-08] MEDS ORDERED: D10% in 0.2 % NACL 250 ML IVC SCH (04:30)
[2018-05-08 04:35] LABS: Basophils % 0.3 %; Eosinophils % 1.7 %
[2018-05-08 04:36] LABS: Eosinophils # 0.1 K/mcL (0.0-0.6); Hematocrit 29.7 % (35.3-44.9); Immature Granulocytes % 0.6 % (0-4); Lymphocytes # 0.6 K/mcL (0.6-4.6); Lymphocytes % 8.9 %; Mean Corpuscular HGB Conc 26.9 g/dL (31.6-35.5); Mean Corpuscular Hemoglobin 23.7 pg (28.0-33.3); Mean Corpuscular Volume 88.1 fL (83.0-100.0); Monocytes # 0.7 K/mcL (0.0-1.3); Monocytes % 9.3 %; Neutrophils # 5.7 K/mcL (1.6-8.9); Platelet Count 160 K/mcL (140-400); Red Blood Count 3.37 M/mcL (3.82-4.97); Red Cell Distribution Width 16.1 % (11.5-14.5); Segmented Neutrophils % 79.2 %
[2018-05-08] MEDS ORDERED: D10% in Water 500 ML IVC SCH (05:00)
[2018-05-08 05:19] LABS: Platelet Estimate Normal (Normal); Polychromasia 1+ (Not Present)
[2018-05-08 05:20] LABS: BUN/Creatinine Ratio 30 (6-26); Blood Urea Nitrogen 26 mg/dL (8-23); Calcium 9.6 mg/dL (8.6-10.3); Carbon Dioxide 45 mEq/L (23-29); Chloride 97 mEq/L (98-107); Glucose 110 mg/dL (70-105); Osmolality,Calculated 303 (280-300); Potassium 4.3 mEq/L (3.5-5.1); Sodium 144 mEq/L (136-145); Troponin I < 0.03 ng/mL (< 0.04); eGFR For Non-African Americans > 60 (> 60)
[2018-05-08] MEDS ORDERED: Azithromycin 500 MG in D5% in Water 250 ML IVPB ONE (06:04)
[2018-05-08] MEDS ORDERED: Naloxone 0.4 MG/ML INJ IVP PRN (07:44)
[2018-05-08] MEDS ORDERED: Acetaminophen 325 MG TABLET PO PRN (07:44)
[2018-05-08] MEDS ORDERED: Albuterol 2.5 MG/3 ML NEBULIZER IH PRN (08:40)
--- NOTE | 2018-05-08 08:47 | Internal Med History&Physical ---
Date of Encounter: 05/08/18 Time of Encounter: 08:20 Internal Medicine - H&P: HPI Chief complaint: Shortness of breath Admitted From: Emergency Dept Plans for Post Hospital Care: Home History of present illness: Ms. Guevara is a 67 year old female patient with history of COPD who presented to the ER with complaints of shortness of breath. Her symptoms have been going on for 2-3 days now. She denies any fevers or chills. She does have cough. Nonproductive. She does describe pleuritic chest pain in the lower sternal region. Gets worse with deep breaths. She was hospitalized in April for an episode of CHF exacerbation, anemia and atrial fibrillation. She had upper GI endoscopy and colonoscopy done at that time which did not show any acute bleeding. She did have reflux esophagitis. She has been on Plavix and this was continued. She denies any blood in his stools or dark colored stools. She does describe swelling in her lower extremities. No palpitations. No dizziness or lightheadedness. In the ER she received bronchodilator nebs and intravenous steroids which seemed to help with her symptoms. She feels slightly better now. She denies orthopnea or PND but she is dyspneic all the time. Past Med Surg Social Fam HX - Past Medical History Attestation: Yes The following information was validated with the patient. 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, heart cath no stent - Social History Smoking Status: Former smoker Smokeless Tobacco Status: No Alcohol use: none Drug use: none - Family History Sister Living Status: Hx Family Cardiac Disorders: Yes Hx Family Respiratory Disorders: Yes (copd) Mother Adopted: No Family Member Ethnicity: Non- Twin of Family Member: Yes, Fraternal Living Status: Hx Family Cardiac Disorders: No Hx Family Respiratory Disorders: No Hx Family Cancer: No Hx Family GI Disorders: No Hx Family Endocrine Disorder: No Hx Family Neuromuscular Disorders: No Hx Family Neurologic Disorders: No Hx Family HEENT Disorders: No Hx Family Autoimmune Disorders: No Father Adopted: No Family Member Ethnicity: Non- Twin of Family Member: Yes, Fraternal Living Status: Hx Family Cardiac Disorders: Yes Hx Family Respiratory Disorders: No Hx Family Cancer: No Hx Family GI Disorders: No Hx Family Endocrine Disorder: No Hx Family Neuromuscular Disorders: No Hx Family Neurologic Disorders: No Hx Family HEENT Disorders: No Hx Family Autoimmune Disorders: No Internal Medicine - H&P: Meds Alendronate Sodium [Fosamax] 70 mg PO WE 10/28/15 [History] Ascorbate Calcium [Vitamin C] 500 mg PO DAILY 10/28/15 [History] Cyanocobalamin (Vitamin B-12) [Vitamin B-12] 100 mcg PO DAILY 10/28/15 [History] Tiotropium [Spiriva] 2 puff PO HS 10/28/15 [History] Dexlansoprazole [Dexilant] 60 mg PO DAILY 07/03/16 [History] Ferrous Sulfate [Iron] 325 mg PO DAILY 07/03/16 [History] Albuterol Sulfate [Proventil Hfa] 2 puff IH Q4H PRN 09/14/16 [History] Oxygen 3 l IH AD 10/24/16 [History] Fluticasone/Salmeterol [Advair 250-50 Diskus] 1 puff IH BID #1 blst.w.dev [Rx] Montelukast [Singulair] 10 mg PO DAILY 11/29/16 [History] Ropinirole HCl [Requip] 4 mg PO HS 11/29/16 [History] Magnesium Oxide [Mag-Ox] 400 mg PO DAILY #30 tablet 12/04/16 [Rx] Calcium Carbonate [Calcium] 600 mg PO BID 05/08/17 [History] Fluorometholone [Fml Forte] 1 drop LEFT EYE QID 05/08/17 [History] Diltiazem CD (24hr) [Cardizem CD] 120 mg PO DAILY cap.er.24h 05/21/17 [Rx] Acetaminophen/Diphenhydramine [Percogesic 325-12.5 mg Tablet] 1 - 2 tab PO HS PRN 07/19/17 [History] DiphenhydraMINE [Benadryl] 25 mg PO HS PRN capsule 07/23/17 [Rx] Cholecalciferol (D-3) [Vitamin D] 5,000 unit PO DAILY 03/14/18 [History] Lisinopril 2.5 mg PO BID 03/14/18 [History] Propafenone HCl [Propafenone HCl ER] 325 mg PO Q12H 04/03/18 [History] Clopidogrel [Plavix] 75 mg PO DAILY 30 Days #30 tablet 04/11/18 [Rx] Furosemide [Lasix] 20 mg PO HS 05/08/18 [History] Furosemide [Lasix] 40 mg PO DAILY 05/08/18 [History] 3 Allergy/AdvReac Type Severity Reaction Status Date / Time aspirin [ASA] Allergy Difficulty Verified 03/14/18 13:43 Breathing Penicillins Allergy Hives Verified 03/14/18 13:43 Sulfa (Sulfonamide Allergy Rash Verified 03/14/18 13:43 Antibiotics) All Systems PM: A 10-system review of systems was performed and is negative for pertinent findings except as documented above in the HPI. - Constitutional Constitutional: fatigue, malaise, no chills, no fever(s), no night sweats - EENT Eyes: no change in vision, no discharge, no pain, no photophobia Ears: no ear discharge, no ear pain, no tinnitus Nose, mouth and throat: no dysphagia, no nasal discharge, no neck pain, no sore throat - Cardiovascular Cardiovascular ROS IM: edema, no chest pain, no diaphoresis, no dyspnea, no lightheadedness, no palpitations, no syncope - Respiratory Respiratory: cough, dyspnea, wheezing, no excessive phlegm production - Gastrointestinal Gastrointestinal: no abdominal pain, no diarrhea, no hematemesis, no hematochezia, no melena, no nausea, no vomiting - Genitourinary Genitourinary: no change in urinary stream, no dysuria, no flank pain, no hematuria - Musculoskeletal Musculoskeletal ROS IM: no numbness, no tingling - Integumentary Integumentary IM: no rash, no unusual bruising - Neurological Neurological ROS: no confusion, no convulsions, no focal weakness, no numbness, no tingling, no tremor(s) - Hematologic/Lymphatic Hematologic/Lymphatic: no easy bruising - Constitutional Vitals: Temp Pulse Resp BP Pulse Ox 98.9 F 100 20 138/86 97 05/08/18 07:03 05/08/18 07:03 05/08/18 07:03 05/08/18 07:03 05/08/18 07:03 General appearance: Present: cooperative, A&O X 3, morbidly obese, answers questions appropriately Exam: Moderate distress - Eye Eye exam: Present: EOMI, PERRL, conjuntiva pink, sclera anicteric - Neck Neck exam general surgery: Present: supple, trachea midline. Absent: lymphadenopathy - Respiratory Respiratory exam: Present: decreased breath sounds (Decreased air entry bilaterally), prolonged expiratory phase, wheezes. Absent: accessory muscle use , rales - Cardiovascular Cardiovascular exam: Present: RRR, +S1, +S2. Absent: diastolic murmur, gallop, rubs, systolic murmur - GI/Abdominal GI/Abdominal exam: Present: normal bowel sounds, soft, no peritoneal signs. Absent: distended, tenderness - Extremities Exam Extremities exam: Present: pedal edema (Bilateral pitting pedal), warm, radial pulses palpable and symmetrical. Absent: calf tenderness, cyanotic - Neurological Exam Neurological exam: Present: alert, CN II-XII intact, oriented X3, no focal deficits. Absent: facial droop, speech deficit - Skin Skin exam: Present: dry, intact Internal Med - H&P Results - Labs CBC & Chem 7: 05/08/18 04:23 05/08/18 04:23 - Impressions Impressions Chest X-Ray 05/08/18 03:35 IMPRESSION: Limited exam with suspected pulmonary edema. D/ / Everett Baez MD / Everett Baez MD Interpreting Provider: Everett Baez MD - Assessment and plan (1) Acute on chronic respiratory failure with hypoxia and hypercapnia Current Visit: Yes Status: Acute Assessment and plan: Patient with acute on chronic hypoxic/hypercapnic respiratory failure. Due to COPD exacerbation and CHF. Treat underlying conditions. O2 supplementation. Discussed BiPAP use with patient. She is hesitant but is willing to use if needed. Consider BiPAP qualification prior to discharge. (2) COPD with exacerbation Current Visit: Yes Status: Acute Assessment and plan: Patient presenting with shortness of breath, increased cough along with wheezing. Will treat with bronchodilators, steroids, azithromycin. Would continue O2 supplementation. Monitor vital signs closely. Continue Advair and Spiriva. (3) Acute on chronic heart failure with normal ejection fraction Current Visit: Yes Status: Acute Assessment and plan: Patient also has pedal edema and may be having mild exacerbation of her underlying chronic diastolic congestive heart failure. Will get 2-D echocardiogram. Less her on intravenous Lasix. Monitor renal function closely. (4) Morbid obesity with BMI of 60.0-69.9, adult Current Visit: Yes Status: Acute Assessment and plan: Recommend lifestyle and dietary changes. (5) Chronic anemia Current Visit: Yes Status: Chronic Assessment and plan: Hemoglobin 8 today. We will check folic acid and B12 levels. Patient did have low iron levels based on her prior labs. We will place her on iron supplementation. She has had extensive workup during her last hospitalization with upper GI endoscopy and colonoscopy and no active source of bleeding has been identified. Patient does like take Plavix and is at risk for bleeding. For now we will monitor blood counts closely. May need capsule endoscopy or push enteroscopy as outpatient to further evaluate this. Hold Plavix for now till we make sure patient is not actively bleeding. Patient is on Plavix due to her atrial fibrillation and her continued anemia of unclear origin making her a poor candidate for anticoagulation with Coumadin. (6) Atrial fibrillation Current Visit: Yes Status: Chronic Assessment and plan: Monitor heart rate. Continue home medications including Cardizem and propafenone. Qualifiers: Atrial fibrillation type: paroxysmal Qualified Code(s): I48.0 - Paroxysmal atrial fibrillation - Time Spent With Patient Total time spent is greater than 50% in coordination of care (as documented) at patient's floor/unit and/or counseling patient:
[2018-05-08] MEDS: Cholecalciferol (D-3) 1,000 UNIT TABLET PO SCH (09:11)
[2018-05-08] MEDS: Cyanocobalamin (B-12) 1,000 MCG TABLET PO SCH (09:11)
[2018-05-08] MEDS: Magnesium Oxide 400 MG TABLET PO SCH (09:11)
[2018-05-08] MEDS: Diltiazem CD (24hr) 120 MG CAPSULE PO SCH (09:11)
[2018-05-08] MEDS: (Propafenone Hcl [Propafenone Hcl Er] 325 MG) PO SCH ×2 (09:14→20:22)
[2018-05-08] MEDS: Doxycycline 100 MG CAPSULE PO SCH ×2 (09:20→20:17)
[2018-05-08] MEDS ORDERED: Budesonide/Formoterol 80/4.5 MDI IH SCH (10:00)
[2018-05-08 10:01] LABS: ABG Base Excess 28 mEq/L (-2 to 3); ABG HCO3 57 mEq/L (21-27); ABG Oxygen Saturation 97 % (95-98); ABG PCO2 85 mmHg (35-45); ABG PH 7.44 pH Units (7.32-7.45); ABG PO2 98 mmHg (85-104); ABG TCO2 60 mEq/L (20-26)
[2018-05-08 10:41] LABS: Folate 7.5 ng/mL (3.0-16.0)
[2018-05-08] MEDS: Ipratropium/Albuterol Neb 3 ML IH SCH ×4 (11:11→23:25)
[2018-05-08] MEDS: ADVAIR DISKUS 250/50 IH SCH ×2 (11:11→20:51)
[2018-05-08] MEDS: methylPREDNISolone 125 MG/2 ML VIAL IVP SCH ×2 (15:29→23:37)
[2018-05-08 16:15] LABS: ABG Base Excess 16 mEq/L (-2 to 3); ABG HCO3 45 mEq/L (21-27); ABG Oxygen Saturation 93 % (95-98); ABG PCO2 78 mmHg (35-45); ABG PH 7.37 pH Units (7.32-7.45); ABG PO2 74 mmHg (85-104); ABG TCO2 47 mEq/L (20-26)
[2018-05-08] MEDS: rOPINIRole 1 MG TABLET PO SCH (20:18)
[2018-05-08] MEDS: SPIRIVA RESPIMAT IH SCH (21:16)
[2018-05-09] MEDS: Ipratropium/Albuterol Neb 3 ML IH SCH ×6 (04:14→23:50)
[2018-05-09 06:40] LABS: Hemoglobin 7.7 g/dL (11.5-15.4); Mean Platelet Volume 11.9 fL (9.4-12.4)
[2018-05-09 06:41] LABS: Basophils % 0.1 %; Hematocrit 28.5 % (35.3-44.9); Lymphocytes # 0.4 K/mcL (0.6-4.6); Lymphocytes % 5.5 %; Mean Corpuscular Hemoglobin 23.7 pg (28.0-33.3); Mean Corpuscular Volume 87.7 fL (83.0-100.0); Monocytes # 0.2 K/mcL (0.0-1.3); Monocytes % 3.1 %; Platelet Count 171 K/mcL (140-400); Red Blood Count 3.25 M/mcL (3.82-4.97); Segmented Neutrophils % 90.3 %
[2018-05-09 06:56] LABS: Neutrophils # 6.1 K/mcL (1.6-8.9)
[2018-05-09 06:59] LABS: BUN/Creatinine Ratio 44 (6-26); Blood Urea Nitrogen 32 mg/dL (8-23); Calcium 9.6 mg/dL (8.6-10.3); Carbon Dioxide 38 mEq/L (23-29); Chloride 96 mEq/L (98-107); Glucose 229 mg/dL (70-105); Osmolality,Calculated 310 (280-300); Potassium 4.4 mEq/L (3.5-5.1); Sodium 143 mEq/L (136-145); eGFR For Non-African Americans > 60 (> 60)
[2018-05-09] MEDS ORDERED: Perflutren Lipid Microsphere 1.3 ML in 0.9 % Sodium Chloride 8.7 ML IVP ONE (07:10)
[2018-05-09 08:03] LABS: Hypochromasia Present (Not Present); Platelet Estimate Normal (Normal); Polychromasia 1+ (Not Present)
[2018-05-09] MEDS: Magnesium Oxide 400 MG TABLET PO SCH (09:25)
[2018-05-09] MEDS: Cholecalciferol (D-3) 1,000 UNIT TABLET PO SCH (09:25)
[2018-05-09] MEDS: Doxycycline 100 MG CAPSULE PO SCH ×2 (09:25→20:42)
[2018-05-09] MEDS: Cyanocobalamin (B-12) 1,000 MCG TABLET PO SCH (09:25)
[2018-05-09] MEDS: (Propafenone Hcl [Propafenone Hcl Er] 325 MG) PO SCH ×2 (09:26→20:42)
[2018-05-09] MEDS: methylPREDNISolone 125 MG/2 ML VIAL IVP SCH ×3 (09:26→23:39)
[2018-05-09] MEDS: Diltiazem CD (24hr) 120 MG CAPSULE PO SCH (09:26)
[2018-05-09] MEDS: ADVAIR DISKUS 250/50 IH SCH ×2 (12:17→20:14)
[2018-05-09] MEDS: Nystatin SUSP 5 ML UD.LIQ BC SCH ×3 (15:45→20:43)
[2018-05-09] MEDS: Furosemide 40 MG/4 ML VIAL IVP SCH (15:52)
--- NOTE | 2018-05-09 19:51 | Internal Med Progress Note ---
Hospitalist Progress Note - Encounter Date of Encounter: 05/09/18 Time of Encounter: 19:22 - Subjective Interval History: Pt states she has had GI bleed before. She denies chest pain. She does report SOB. She denies fever, chills, N/V. at bed side states she has had transfusion before and EGD with procedure to stop the bleed. - Exam Vitals: Temp Pulse Resp BP Pulse Ox 99.4 F 105 16 160/84 95 05/09/18 18:37 05/09/18 18:37 05/09/18 18:37 05/09/18 18:37 05/09/18 18:37 Exam: General appearance: Present: cooperative, A&O X 3, morbidly obese, answers questions appropriately Exam: Moderate distress - Eye Eye exam: Present: EOMI, PERRL, conjuntiva pink, sclera anicteric - Neck Neck exam general surgery: Present: supple, trachea midline. Absent: lymphadenopathy - Respiratory Respiratory exam: Present: decreased breath sounds (Decreased air entry bilaterally), prolonged expiratory phase, wheezes. Absent: accessory muscle use , rales - Cardiovascular Cardiovascular exam: Present: RRR, +S1, +S2. Absent: diastolic murmur, gallop, rubs, systolic murmur - GI/Abdominal GI/Abdominal exam: Present: normal bowel sounds, soft, no peritoneal signs. Absent: distended, tenderness - Extremities Exam Extremities exam: Present: pedal edema (Bilateral pitting pedal), warm, radial pulses palpable and symmetrical. Absent: calf tenderness, cyanotic - Neurological Exam Neurological exam: Present: alert, CN II-XII intact, oriented X3, no focal deficits. Absent: facial droop, speech deficit - Skin Skin exam: Present: dry, intact - Assessment and Plan (1) Acute on chronic respiratory failure with hypoxia and hypercapnia Current Visit: Yes Status: Acute Assessment and Plan: Patient with acute on chronic hypoxic/hypercapnic respiratory failure. Due to COPD exacerbation and CHF. Continue with O2 supplementation. Consider BiPAP qualification prior to discharge. (2) COPD with exacerbation Current Visit: Yes Status: Acute Assessment and Plan: Patient presenting with shortness of breath, increased cough along with wheezing. Will treat with bronchodilators, steroids, and Azithromycin. Would continue O2 supplementation. Monitor vital signs closely. Continue Advair and Spiriva. (3) Acute on chronic respiratory failure with hypoxemia Current Visit: No Status: Acute Assessment and Plan: Patient also has pedal edema and may be having mild exacerbation of her underlying chronic diastolic congestive heart failure. 2-D echocardiogram pending. She is intravenous Lasix 40 mg IV BID. Monitor renal function closely. (4) Atrial fibrillation Current Visit: No Status: Chronic Assessment and Plan: Patient is on Plavix due to her atrial fibrillation and her continued anemia of unclear origin making her a poor candidate for anticoagulation with Coumadin. (5) Acute on chronic heart failure with normal ejection fraction Current Visit: Yes Status: Acute (6) Chronic anemia Current Visit: Yes Status: Chronic Assessment and Plan: Hemoglobin 7.7. Folic acid and B12 levels with in normal levels. Patient did have low iron levels based on her prior labs and placed on iron supplementation by admitting physician. She has had extensive workup during her last hospitalization with upper GI endoscopy and colonoscopy and no active source of bleeding had been identified. Patient does take Plavix and is at risk for bleeding. For now we will monitor blood counts closely. Checking stool occult, if positive, will consult GI to see. May need capsule endoscopy or push enteroscopy as outpatient to further evaluate this. Hold Plavix for now till we make sure patient is not actively bleeding. (7) Morbid obesity with BMI of 60.0-69.9, adult Current Visit: Yes Status: Acute Assessment and Plan: Life style modification such as diet and exercise recommended. DVT Prophylaxis: SCD - Summary of Assessment and Plan Summary of Assessment and Plan: Ms. Guevara is a 67 year old female patient with history of COPD who presented to the ER with complaints of shortness of breath. Her symptoms have been going on for 2-3 days now. She denies any fevers or chills. She does have cough. Nonproductive. She does describe pleuritic chest pain in the lower sternal region. Gets worse with deep breaths. She was hospitalized in April for an episode of CHF exacerbation, anemia and atrial fibrillation. She had upper GI endoscopy and colonoscopy done at that time which did not show any acute bleeding. She did have reflux esophagitis. She has been on Plavix and this was continued. She denies any blood in his stools or dark colored stools. She does describe swelling in her lower extremities. No palpitations. No dizziness or lightheadedness. In the ER she received bronchodilator nebs and intravenous steroids which seemed to help with her symptoms. She feels slightly better now. She denies orthopnea or PND but she is dyspneic all the time. - Time Spent with Patient Total time spent is greater than 50% in coordination of care (as documented) at patient's floor/unit and/or counseling patient: less than 15 minutes Plan of Care Discussed with: patient Internal Medicine: Result - Labs CBC & Chem 7: 05/09/18 05:36 05/09/18 05:36 Labs: Short CBC 05/09/18 Range/Units 05:36 WBC 6.7 (4.3-11.1) K/mcL Hgb 7.7 L (11.5-15.4) g/dL Hct 28.5 L (35.3-44.9) % Plt Count 171 (140-400) K/mcL Neutrophils # 6.1 (1.6-8.9) K/mcL BMP 05/09/18 05:36 Sodium 143 Potassium 4.4 Chloride 96 L Carbon Dioxide 38 H BUN 32 H Creatinine 0.73 Glucose 229 H Calcium 9.6 - ABG Interpretation ABG results: ABG ABG pH 7.37 pH Units (7.32-7.45) 05/08/18 16:12 ABG pCO2 78 mmHg (35-45) H* 05/08/18 16:12 ABG pO2 74 mmHg (85-104) L 05/08/18 16:12 ABG O2 Saturation 93 % (95-98) L 05/08/18 16:12 Consult Discharge Plan - Plan Referrals: Lisbet Ray, FOUNDER AND PRESIDENT [Primary Care Provider] - (Requested a follow up appointment in 7-10 days. ) (4) Atrial fibrillation Qualifiers: Atrial fibrillation type: paroxysmal Qualified Code(s): I48.0 - Paroxysmal atrial fibrillation
[2018-05-09] MEDS: SPIRIVA RESPIMAT IH SCH ×2 (20:18→20:50)
[2018-05-09] MEDS: rOPINIRole 1 MG TABLET PO SCH (20:43)
[2018-05-10] MEDS: Ipratropium/Albuterol Neb 3 ML IH SCH ×5 (04:00→20:01)
[2018-05-10 05:59] LABS: Iron 31 mcg/dL (50-170); Transferrin 343 mg/dL (203-362)
[2018-05-10 06:00] LABS: % Iron Saturation 6 % (15-50)
[2018-05-10 06:07] LABS: Ferritin 79 ng/mL (10-120)
[2018-05-10] MEDS: Doxycycline 100 MG CAPSULE PO SCH ×2 (08:06→20:27)
[2018-05-10] MEDS: Magnesium Oxide 400 MG TABLET PO SCH (08:06)
[2018-05-10] MEDS: Diltiazem CD (24hr) 120 MG CAPSULE PO SCH (08:06)
[2018-05-10] MEDS: Cyanocobalamin (B-12) 1,000 MCG TABLET PO SCH (08:07)
[2018-05-10] MEDS: Furosemide 40 MG/4 ML VIAL IVP SCH ×2 (08:07→17:45)
[2018-05-10] MEDS: methylPREDNISolone 125 MG/2 ML VIAL IVP SCH ×2 (08:07→17:46)
[2018-05-10] MEDS: Cholecalciferol (D-3) 1,000 UNIT TABLET PO SCH (08:07)
[2018-05-10] MEDS: Nystatin SUSP 5 ML UD.LIQ BC SCH ×4 (08:08→20:27)
[2018-05-10] MEDS: (Propafenone Hcl [Propafenone Hcl Er] 325 MG) PO SCH ×2 (08:32→20:27)
[2018-05-10] MEDS: ADVAIR DISKUS 250/50 IH SCH ×2 (08:35→20:03)
[2018-05-10] MEDS: SPIRIVA RESPIMAT IH SCH (08:36)
--- NOTE | 2018-05-10 18:36 | Internal Med Progress Note ---
Hospitalist Progress Note - Encounter Date of Encounter: 05/10/18 Time of Encounter: 18:34 - Subjective Interval History: Pt states she has had GI bleed before. She denies chest pain. She does report SOB. She denies fever, chills, N/V. at bed side 05/09/2018, stated she has had transfusion before and EGD with procedure to stop the bleed. - Exam Vitals: Temp Pulse Resp BP Pulse Ox 98.9 F 91 18 185/72 99 05/10/18 15:43 05/10/18 15:43 05/10/18 15:55 05/10/18 15:43 05/10/18 15:55 Exam: General appearance: Present: cooperative, A&O X 3, morbidly obese, answers questions appropriately Exam: Moderate distress - Eye Eye exam: Present: EOMI, PERRL, conjuntiva pink, sclera anicteric - Neck Neck exam general surgery: Present: supple, trachea midline. Absent: lymphadenopathy - Respiratory Respiratory exam: Present: decreased breath sounds (Decreased air entry bilaterally), prolonged expiratory phase, wheezes. Absent: accessory muscle use , rales - Cardiovascular Cardiovascular exam: Present: RRR, +S1, +S2. Absent: diastolic murmur, gallop, rubs, systolic murmur - GI/Abdominal GI/Abdominal exam: Present: normal bowel sounds, soft, no peritoneal signs. Absent: distended, tenderness - Extremities Exam Extremities exam: Present: pedal edema (Bilateral pitting pedal), warm, radial pulses palpable and symmetrical. Absent: calf tenderness, cyanotic - Neurological Exam Neurological exam: Present: alert, CN II-XII intact, oriented X3, no focal deficits. Absent: facial droop, speech deficit - Skin Skin exam: Present: dry, intact - Assessment and Plan (1) Acute on chronic respiratory failure with hypoxia and hypercapnia Current Visit: Yes Status: Acute Assessment and Plan: Patient with acute on chronic hypoxic/hypercapnic respiratory failure. Due to COPD exacerbation and CHF. Continue with O2 supplementation. Consider BiPAP qualification prior to discharge. On home oxygen. (2) Acute blood loss anemia Current Visit: Yes Status: Acute Assessment and Plan: Hemoglobin 7.7. Folic acid and B12 levels with in normal levels. Patient did have low iron levels based on her prior labs and placed on iron supplementation by admitting physician. She has had extensive workup during her last hospitalization with upper GI endoscopy and colonoscopy and no active source of bleeding had been identified. Patient does take Plavix and is at risk for bleeding. For now we will monitor blood counts closely. Stool occult positive, GI consult ordered. Monitoring hgb. Holding plavix. May need capsule endoscopy or push enteroscopy as outpatient to further evaluate this. Hold Plavix for now till we make sure patient is not actively bleeding. (3) COPD with exacerbation Current Visit: Yes Status: Acute Assessment and Plan: Patient presenting with shortness of breath, increased cough along with wheezing. Will treat with bronchodilators, steroids, azithromycin. Would continue O2 supplementation. Monitor vital signs closely. Continue Advair and Spiriva. (4) Atrial fibrillation Current Visit: Yes Status: Chronic Assessment and Plan: Monitor heart rate. Continue home medications including Cardizem and propafenone. (5) Acute on chronic heart failure with normal ejection fraction Current Visit: Yes Status: Acute Assessment and Plan: On IV Lasix. Daily weights, strict I and O's. Doubt pt is compliant with CHF diet. Pt refused multiple attempts for Echo states she cannot breath when laying flat. likely due to orthopnea. (6) Morbid obesity with BMI of 60.0-69.9, adult Current Visit: Yes Status: Acute Assessment and Plan: Life style modification such as diet and exercise recommended. (7) Medical non-compliance Current Visit: Yes Status: Acute Assessment and Plan: Pt refused Echo x3 attempts DVT Prophylaxis: SCD. HX of GI bleed. - Summary of Assessment and Plan Summary of Assessment and Plan: Ms. Guevara is a 67 year old female patient with history of COPD who presented to the ER with complaints of shortness of breath. Her symptoms have been going on for 2-3 days now. She denies any fevers or chills. She does have cough. Nonproductive. She does describe pleuritic chest pain in the lower sternal region. Gets worse with deep breaths. She was hospitalized in April for an episode of CHF exacerbation, anemia and atrial fibrillation. She had upper GI endoscopy and colonoscopy done at that time which did not show any acute bleeding. She did have reflux esophagitis. She has been on Plavix and this was continued. She denies any blood in his stools or dark colored stools. She does describe swelling in her lower extremities. No palpitations. No dizziness or lightheadedness. In the ER she received bronchodilator nebs and intravenous steroids which seemed to help with her symptoms. She feels slightly better now. She denies orthopnea or PND but she is dyspneic all the time. - Time Spent with Patient Total time spent is greater than 50% in coordination of care (as documented) at patient's floor/unit and/or counseling patient: less than 15 minutes Plan of Care Discussed with: patient Internal Medicine: Result - Labs CBC & Chem 7: 05/09/18 05:36 05/09/18 05:36 - ABG Interpretation ABG results: ABG ABG pH 7.37 pH Units (7.32-7.45) 05/08/18 16:12 ABG pCO2 78 mmHg (35-45) H* 05/08/18 16:12 ABG pO2 74 mmHg (85-104) L 05/08/18 16:12 ABG O2 Saturation 93 % (95-98) L 05/08/18 16:12 Consult Discharge Plan - Plan Referrals: Lisbet Ray, SURGICAL COORDINATOR [Primary Care Provider] - 05/15/18 9:30 am () (4) Atrial fibrillation Qualifiers: Atrial fibrillation type: paroxysmal Qualified Code(s): I48.0 - Paroxysmal atrial fibrillation
[2018-05-10 19:08] LABS: Basophils % 0.1 %
[2018-05-10 19:10] LABS: Hematocrit 30.2 % (35.3-44.9); Hemoglobin 8.3 g/dL (11.5-15.4); Immature Granulocytes % 1.2 % (0-4); Lymphocytes # 0.4 K/mcL (0.6-4.6); Lymphocytes % 4.9 %; Mean Corpuscular HGB Conc 27.5 g/dL (31.6-35.5); Mean Corpuscular Hemoglobin 23.7 pg (28.0-33.3); Mean Corpuscular Volume 86.3 fL (83.0-100.0); Mean Platelet Volume 11.3 fL (9.4-12.4); Monocytes # 0.5 K/mcL (0.0-1.3); Monocytes % 6.3 %; Neutrophils # 6.8 K/mcL (1.6-8.9); Nucleated Red Blood Cells 0.4 /100 WBC (0); Platelet Count 201 K/mcL (140-400); Red Cell Distribution Width 16.2 % (11.5-14.5); Segmented Neutrophils % 87.5 %
[2018-05-10 19:37] LABS: Hypochromasia Present (Not Present)
[2018-05-10] MEDS: rOPINIRole 1 MG TABLET PO SCH (20:27)
[2018-05-11] MEDS: methylPREDNISolone 125 MG/2 ML VIAL IVP SCH ×2 (00:02→10:03)
[2018-05-11] MEDS: Ipratropium/Albuterol Neb 3 ML IH SCH ×8 (00:38→23:20)
[2018-05-11 05:17] LABS: Basophils % 0.1 %; Nucleated Red Blood Cells 0.3 /100 WBC (0)
[2018-05-11 05:19] LABS: Hematocrit 30.6 % (35.3-44.9); Hemoglobin 8.2 g/dL (11.5-15.4); Immature Granulocytes % 1.6 % (0-4); Lymphocytes # 0.4 K/mcL (0.6-4.6); Lymphocytes % 4.7 %; Mean Corpuscular HGB Conc 26.8 g/dL (31.6-35.5); Mean Corpuscular Hemoglobin 23.6 pg (28.0-33.3); Mean Corpuscular Volume 87.9 fL (83.0-100.0); Monocytes # 0.5 K/mcL (0.0-1.3); Monocytes % 6.5 %; Neutrophils # 6.5 K/mcL (1.6-8.9); Platelet Count 202 K/mcL (140-400); Red Blood Count 3.48 M/mcL (3.82-4.97); Red Cell Distribution Width 15.9 % (11.5-14.5); Segmented Neutrophils % 87.1 %
[2018-05-11 05:51] LABS: Hypochromasia Present (Not Present)
--- NOTE | 2018-05-11 08:08 | General Surgery Consult Note ---
Date of Encounter: 05/12/18 Time of Encounter: 08:08 Assessment and Plan (1) Anemia Current Visit: No Status: Chronic I had an opportunity to review her laboratory studies and endoscopy reports and images. Additionally, I reviewed her hemoglobin levels for the past 2-3 years. She has had a low hemoglobin level below 1 around 10 (9-10 and over this past year has had a little bit lower values. She had multiple EGDs and colonoscopies in [place] and most recently had an EGD and colonoscopy last month. Additionally, she has been suffering from CHF and although she has been educated on fluid restrictions it appears she may not be following along on the diet. I think that the low hemoglobin level that was noted on admission is more related to fluid retention as opposed to increasing losses since her last visit. Agree that a capsule endoscopy should be performed and would thus recommend a follow-up gastroenterology (which I am not sure has been set up). I do not think she requires a repeat EGD or colonoscopy at this time. Discussed with the patient and the covering physician as well. Thank you very much and please contact me for any questions. Qualifiers: Anemia type: iron deficiency Iron deficiency anemia type: chronic blood loss Qualified Code(s): D50.0 - Iron deficiency anemia secondary to blood loss (chronic) History of Present Illness Consult date: 05/11/18 Reason for consult: other (Anemia/positive heme occult) Requesting physician: Yu Whittaker History of present illness: The patient is a 67-year-old female with a past medical history significant for morbid obesity, CHF, and COPD who presented to the hospital secondary to shortness of breath symptoms. She has been having symptoms over the past 2-3 days. Of note she was previously admitted to the hospital last month for symptoms of atrial fibrillation in addition to symptoms of CHF. She denies any abdominal pain symptoms and denies any nausea or vomiting. She also denies any diarrhea or constipation. During her last admission she was noted to have a low blood count and had an EGD and colonoscopy procedure. 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 No significant findings were found in the stomach or duodenum as well as proximal jejunum and a recommendation for possible capsule endoscopy was made. The patient is currently readmitted and noted to have a lower hemoglobin than she had on discharge. Again she denies any rectal bleeding and had a Hemoccult positive test yesterday and I was subsequently asked to see the patient for reevaluation. 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, heart cath no stent - Social History Smoking Status: Former smoker Smokeless Tobacco Status: No Alcohol use: none Drug use: none - Family History Sister Living Status: Hx Family Cardiac Disorders: Yes Hx Family Respiratory Disorders: Yes (copd) Mother Adopted: No Family Member Ethnicity: Non- Twin of Family Member: Yes, Fraternal Living Status: Age at : 85 Cause of : sepsis Hx Family Cardiac Disorders: Yes Hx Family Respiratory Disorders: Yes Hx Family Cancer: No Hx Family GI Disorders: No Hx Family Genitourinary Disorders: No Hx Family Endocrine Disorder: No Hx Family Musculoskeletal Disorders: No Hx Family Neuromuscular Disorders: No Hx Family Neurologic Disorders: No Hx Family HEENT Disorders: No Hx Family Autoimmune Disorders: No Hx Family Reproductive Disorders: No Hx Family Psychosocial Disorders: No Hx Family Medical Disorders: No Father Adopted: No Family Member Ethnicity: Non- Twin of Family Member: Yes, Fraternal Living Status: Age at : 47 Hx Family Cardiac Disorders: Yes (Afib, HTN,) Hx Family Respiratory Disorders: Yes Hx Family Cancer: No Hx Family GI Disorders: No Hx Family Genitourinary Disorders: No Hx Family Endocrine Disorder: No Hx Family Musculoskeletal Disorders: No Hx Family Neuromuscular Disorders: No Hx Family Neurologic Disorders: No Hx Family HEENT Disorders: No Hx Family Autoimmune Disorders: No Hx Family Reproductive Disorders: No Hx Family Psychosocial Disorders: No Hx Family Medical Disorders: No Medications and Allergies Alendronate Sodium [Fosamax] 70 mg PO WE 10/28/15 [History] Ascorbate Calcium [Vitamin C] 500 mg PO DAILY 10/28/15 [History] Cyanocobalamin (Vitamin B-12) [Vitamin B-12] 100 mcg PO DAILY 10/28/15 [History] Tiotropium [Spiriva] 2 puff PO HS 10/28/15 [History] Ferrous Sulfate [Iron] 325 mg PO DAILY 07/03/16 [History] Albuterol Sulfate [Proventil Hfa] 2 puff IH Q4H PRN 09/14/16 [History] Oxygen 3 l IH AD 10/24/16 [History] Fluticasone/Salmeterol [Advair 250-50 Diskus] 1 puff IH BID #1 blst.w.dev [Rx] Montelukast [Singulair] 10 mg PO DAILY 11/29/16 [History] Ropinirole HCl [Requip] 4 mg PO HS 11/29/16 [History] Magnesium Oxide [Mag-Ox] 400 mg PO DAILY #30 tablet 12/04/16 [Rx] Calcium Carbonate [Calcium] 600 mg PO BID 05/08/17 [History] Fluorometholone [Fml Forte] 1 drop LEFT EYE QID 05/08/17 [History] Diltiazem CD (24hr) [Cardizem CD] 120 mg PO DAILY cap.er.24h 05/21/17 [Rx] Acetaminophen/Diphenhydramine [Percogesic 325-12.5 mg Tablet] 1 - 2 tab PO HS PRN 07/19/17 [History] DiphenhydraMINE [Benadryl] 25 mg PO HS PRN capsule 07/23/17 [Rx] Cholecalciferol (D-3) [Vitamin D] 5,000 unit PO DAILY 03/14/18 [History] Lisinopril 2.5 mg PO BID 03/14/18 [History] Propafenone HCl [Propafenone HCl ER] 325 mg PO Q12H 04/03/18 [History] Clopidogrel [Plavix] 75 mg PO DAILY 30 Days #30 tablet 04/11/18 [Rx] Furosemide [Lasix] 20 mg PO HS 05/08/18 [History] Furosemide [Lasix] 40 mg PO DAILY 05/08/18 [History] 3 Allergy/AdvReac Type Severity Reaction Status Date / Time aspirin [ASA] Allergy Difficulty Verified 03/14/18 13:43 Breathing Penicillins Allergy Hives Verified 03/14/18 13:43 Sulfa (Sulfonamide Allergy Rash Verified 03/14/18 13:43 Antibiotics) Review of Systems All systems PM: reviewed and no additional remarkable complaints except as stated All systems PM: The remainder of the systems were reviewed and are negative General Surgery Exam Initial Vital Signs Temp Pulse Resp BP Pulse Ox 99.3 F 91 21 154/104 99 05/08/18 03:36 05/08/18 03:36 05/08/18 03:36 05/08/18 03:36 05/08/18 03:36 - General physical appearance well nourished, no distress - Respiratory other (Relatively poor respiratory effort) crackles: bilateral, wheezing: bilateral - Cardiovascular Cardiovascular exam: Present: RRR, no murmurs/rubs/gallops - Abdomen Abdomen general surgery: Present: bowel sounds present, soft, non tender ( Morbidly obese. No masses palpated) - Neurologic Present: CN 2-12 grossly intact - Musculoskeletal Present: other (2+ pitting edema bilaterally) Exam Initial Vital Signs Temp Pulse Resp BP Pulse Ox 99.3 F 91 21 154/104 99 05/08/18 03:36 05/08/18 03:36 05/08/18 03:36 05/08/18 03:36 05/08/18 03:36 Results - Labs 05/12/18 04:17 05/12/18 04:17 Abnormal lab results RBC 3.48 M/mcL (3.82-4.97) L 05/11/18 04:43 Hgb 8.2 g/dL (11.5-15.4) L 05/11/18 04:43 Hct 30.6 % (35.3-44.9) L 05/11/18 04:43 MCH 23.6 pg (28.0-33.3) L 05/11/18 04:43 MCHC 26.8 g/dL (31.6-35.5) L 05/11/18 04:43 RDW 15.9 % (11.5-14.5) H 05/11/18 04:43 Lymphocytes # 0.4 K/mcL (0.6-4.6) L 05/11/18 04:43 Nucleated RBCs/100 WBC 0.3 /100 WBC (0) H 05/11/18 04:43 Polychromasia 1+ (Not Present) A 05/09/18 05:36 Hypochromasia Present (Not Present) A 05/11/18 04:43 ABG pCO2 78 mmHg (35-45) H* 05/08/18 16:12 ABG pO2 74 mmHg (85-104) L 05/08/18 16:12 ABG HCO3 45 mEq/L (21-27) H 05/08/18 16:12 ABG Total CO2 47 mEq/L (20-26) H 05/08/18 16:12 ABG O2 Saturation 93 % (95-98) L 05/08/18 16:12 ABG Base Excess 16 mEq/L (-2 to 3) H 05/08/18 16:12 Chloride 96 mEq/L (98-107) L 05/09/18 05:36 Carbon Dioxide 38 mEq/L (23-29) H 05/09/18 05:36 BUN 32 mg/dL (8-23) H 05/09/18 05:36 BUN/Creatinine Ratio 44 (6-26) H 05/09/18 05:36 Glucose 229 mg/dL (70-105) H 05/09/18 05:36 Calculated Osmolality 310 (280-300) H 05/09/18 05:36 Iron 31 mcg/dL (50-170) L 05/10/18 04:24 % Saturation 6 % (15-50) L 05/10/18 04:24 Stool Occult Blood Positive (Negative) A 05/10/18 10:20 All other labs normal. Consult Discharge Plan - Plan Referrals: Lisbet Ray CNP [Primary Care Provider] - 05/15/18 9:30 am ()
[2018-05-11] MEDS: Doxycycline 100 MG CAPSULE PO SCH ×2 (10:02→19:54)
[2018-05-11] MEDS: Diltiazem CD (24hr) 120 MG CAPSULE PO SCH (10:02)
[2018-05-11] MEDS: Cyanocobalamin (B-12) 1,000 MCG TABLET PO SCH (10:02)
[2018-05-11] MEDS: Nystatin SUSP 5 ML UD.LIQ BC SCH ×4 (10:02→19:56)
[2018-05-11] MEDS: Cholecalciferol (D-3) 1,000 UNIT TABLET PO SCH (10:02)
[2018-05-11] MEDS: Furosemide 40 MG/4 ML VIAL IVP SCH (10:03)
[2018-05-11] MEDS: Magnesium Oxide 400 MG TABLET PO SCH (10:04)
[2018-05-11] MEDS: (Propafenone Hcl [Propafenone Hcl Er] 325 MG) PO SCH (10:08)
[2018-05-11] MEDS: ADVAIR DISKUS 250/50 IH SCH (10:09)
--- NOTE | 2018-05-11 11:59 | Internal Med Progress Note ---
Hospitalist Progress Note - Encounter Date of Encounter: 05/11/18 Time of Encounter: 11:52 - Subjective Interval History: Patient seen and examined at bedside. Patient no acute overnight events. Patient states that her breathing is still not to baseline and is still very dyspneic on exertion with orthopnea. Patient states that she has been urinating tremendously with each dose of Lasix. Patient denies any chest pain, palpitations, nausea, vomiting, diarrhea. Patient states that her swelling in her lower extremities is slowly improving. - Exam Vitals: Temp Pulse Resp BP Pulse Ox 98.5 F 90 18 169/78 93 05/11/18 08:22 05/11/18 08:22 05/11/18 08:22 05/11/18 08:22 05/11/18 08:22 Exam: Constitutional: No acute distress, Alert, sitting in chair Psych: AAO x 3 HEENT: NCAT, EOMI Neck: supple Cardio: regular rate and rhythm, +s1s2, no murmurs; JVD is hard to appreciate secondary to the patient's morbid obesity Resp: Exam significantly limited secondary to body habitus; has faint bibasilar crackles and decreased breath sounds at bases Abd: soft, morbidly obese, nontender non-distended Extremities: 2+ pitting edema to mid thighs reportedly improved per patient Neuro: no focal deficits appreciated - Assessment and Plan (1) Acute on chronic respiratory failure with hypoxia and hypercapnia Current Visit: Yes Status: Acute Assessment and Plan: Patient with acute on chronic hypoxic/hypercapnic respiratory failure. -Secondary to COPD and CHF exacerbations -Continue supplemental oxygen currently at 6 L reports 6-10 L continuously at home -Continue IV diuresis as long as renal function is okay; check BMP today -Patient unable to tolerate full echocardiogram secondary to orthopnea, ejection fraction 60-65% -Continue IV steroids will wean -Continue bronchodilators (2) COPD with exacerbation Current Visit: Yes Status: Acute Assessment and Plan: -Suspect instigated by bronchitis -Continue doxycycline -Continue IV steroids were weaned to 40 mg every 8 hours of Solu-Medrol -Continue bronchodilators -Continue supplemental oxygen to maintain pulse ox of 88-92% (3) Atrial fibrillation Current Visit: Yes Status: Chronic Assessment and Plan: -Monitor heart rate -Continue home medications including Cardizem and propafenone (4) Acute on chronic heart failure with normal ejection fraction Current Visit: Yes Status: Acute Assessment and Plan: Continues to have severe dyspnea on exertion and orthopnea -Continues to be decompensated -TU IV diuretic is on his renal function is okay we will recheck BMP today -On twice a day IV Lasix -Patient reports excellent diuresis however intake and output is not recorded stress importance of this to the patient -Reports slight improvement or orthopnea and dyspnea on exertion however remains not to baseline -Unable tolerate echocardiogram secondary to orthopnea; attempt to repeat when respiratory status improved (5) Anemia Current Visit: Yes Status: Acute Assessment and Plan: -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 -Presented with hemoglobin of 8.0 which down trended to 7.7 and is now up to 8.2 ; FOB is positive -She has had recent extensive GI evaluation and workup including upper and lower endoscopies -Patient needs to have outpatient capsule endoscopy -Spoke with general surgeon today and agree that repeat endoscopy is unlikely to be of any benefit currently secondary to the patient's stable hemoglobin and recent negative workup -Continue iron supplementation -Hemoglobin may be somewhat diluted secondary to volume overload we will monitor with continue diuresis -Check AM CBC -Continue oral PPI (6) Morbid obesity with BMI of 60.0-69.9, adult Current Visit: Yes Status: Acute Assessment and Plan: -lifestyle modifications encouraged DVT Prophylaxis: -SCDs, start sub q heparin - Summary of Assessment and Plan Summary of Assessment and Plan: Patient continues to have severe dyspnea on exertion or orthopnea remains decompensated with her heart failure exacerbation; COPD exacerbation is improving and will wean steroids; will check BMP today if renal function okay we will continue IV diuretic; will follow hemoglobin - Time Spent with Patient Total time spent is greater than 50% in coordination of care (as documented) at patient's floor/unit and/or counseling patient: 25 - 35 minutes Plan of Care Discussed with: patient Internal Medicine: Result - Labs CBC & Chem 7: 05/11/18 04:43 05/09/18 05:36 Labs: Short CBC 05/10/18 05/11/18 Range/Units 18:54 04:43 WBC 7.8 7.4 (4.3-11.1) K/mcL Hgb 8.3 L 8.2 L (11.5-15.4) g/dL Hct 30.2 L 30.6 L (35.3-44.9) % Plt Count 201 202 (140-400) K/mcL Neutrophils # 6.8 6.5 (1.6-8.9) K/mcL - ABG Interpretation ABG results: ABG ABG pH 7.37 pH Units (7.32-7.45) 05/08/18 16:12 ABG pCO2 78 mmHg (35-45) H* 05/08/18 16:12 ABG pO2 74 mmHg (85-104) L 05/08/18 16:12 ABG O2 Saturation 93 % (95-98) L 05/08/18 16:12 Consult Discharge Plan - Plan Referrals: Lisbet Ray, [employer] [Primary Care Provider] - 05/15/18 9:30 am () (3) Atrial fibrillation Qualifiers: Atrial fibrillation type: paroxysmal Qualified Code(s): I48.0 - Paroxysmal atrial fibrillation (5) Anemia Qualifiers: Anemia type: iron deficiency Iron deficiency anemia type: chronic blood loss Qualified Code(s): D50.0 - Iron deficiency anemia secondary to blood loss ( chronic)
[2018-05-11] MEDS ORDERED: Benzonatate 100 MG CAPSULE PO PRN (12:09)
[2018-05-11 12:38] LABS: Calcium 9.4 mg/dL (8.6-10.3); Potassium 4.7 mEq/L (3.5-5.1)
[2018-05-11] MEDS: MethylPREDNISolone 40 MG/ML VIAL IVP SCH (17:08)
[2018-05-11] MEDS: rOPINIRole 1 MG TABLET PO SCH (19:54)
[2018-05-11] MEDS: *HR* Heparin 5,000 UNIT/ML VIAL SQ SCH (20:04)
[2018-05-11] MEDS: SPIRIVA RESPIMAT IH SCH (20:06)
[2018-05-12] MEDS: MethylPREDNISolone 40 MG/ML VIAL IVP SCH ×3 (00:09→18:27)
[2018-05-12] MEDS: ADVAIR DISKUS 250/50 IH SCH ×3 (00:12→19:57)
[2018-05-12] MEDS: (Propafenone Hcl [Propafenone Hcl Er] 325 MG) PO SCH ×3 (00:12→21:03)
[2018-05-12] MEDS: Ipratropium/Albuterol Neb 3 ML IH SCH ×6 (03:20→23:39)
[2018-05-12 05:11] LABS: Basophils % 0.1 %; Immature Granulocytes % 1.3 % (0-4); Mean Platelet Volume 11.8 fL (9.4-12.4)
[2018-05-12 05:13] LABS: Hematocrit 31.3 % (35.3-44.9); Hemoglobin 8.4 g/dL (11.5-15.4); Lymphocytes # 0.3 K/mcL (0.6-4.6); Lymphocytes % 3.9 %; Mean Corpuscular HGB Conc 26.8 g/dL (31.6-35.5); Mean Corpuscular Hemoglobin 23.3 pg (28.0-33.3); Mean Corpuscular Volume 86.9 fL (83.0-100.0); Monocytes # 0.6 K/mcL (0.0-1.3); Monocytes % 8.1 %; Neutrophils # 6.2 K/mcL (1.6-8.9); Nucleated Red Blood Cells 0.3 /100 WBC (0); Platelet Count 207 K/mcL (140-400); Red Cell Distribution Width 15.9 % (11.5-14.5); Segmented Neutrophils % 86.6 %
[2018-05-12 05:36] LABS: BUN/Creatinine Ratio 53 (6-26); Blood Urea Nitrogen 50 mg/dL (8-23); Calcium 9.2 mg/dL (8.6-10.3); Carbon Dioxide 41 mEq/L (23-29); Chloride 94 mEq/L (98-107); Glucose 289 mg/dL (70-105); Magnesium 2.5 mg/dL (1.6-2.6); Osmolality,Calculated 318 (280-300); Potassium 4.3 mEq/L (3.5-5.1); Sodium 142 mEq/L (136-145); eGFR For Non-African Americans 58 (> 60)
[2018-05-12] MEDS: *HR* Heparin 5,000 UNIT/ML VIAL SQ SCH ×2 (05:56→18:28)
[2018-05-12 06:16] LABS: Anisocytosis 1+ (Not Present); Platelet Estimate Normal (Normal); Polychromasia 1+ (Not Present)
[2018-05-12] MEDS: Furosemide 40 MG/4 ML VIAL IVP SCH (10:21)
[2018-05-12] MEDS: Doxycycline 100 MG CAPSULE PO SCH ×2 (10:21→21:03)
[2018-05-12] MEDS: Magnesium Oxide 400 MG TABLET PO SCH (10:21)
[2018-05-12] MEDS: Cholecalciferol (D-3) 1,000 UNIT TABLET PO SCH (10:22)
[2018-05-12] MEDS: Diltiazem CD (24hr) 120 MG CAPSULE PO SCH (10:22)
[2018-05-12] MEDS: Cyanocobalamin (B-12) 1,000 MCG TABLET PO SCH (10:22)
[2018-05-12] MEDS: Nystatin SUSP 5 ML UD.LIQ BC SCH ×4 (10:22→21:02)
--- NOTE | 2018-05-12 13:10 | Internal Med Progress Note ---
Hospitalist Progress Note - Encounter Date of Encounter: 05/12/18 Time of Encounter: 13:04 - Subjective Interval History: Patient seen and examined at bedside. Patient no acute overnight events. I held patient's p.m. dose of Lasix yesterday secondary to increasing BUN/ creatinine. Patient states her breathing is slowly improving. Nasal cannula down to 5 or 6 L/m currently. She reports home dose anywhere between 4 and 10 L /m; patient states she started coughing and producing sputum today with a dark color. Patient states she continues to have good diuretic response with IV Lasix however she states there is no Hat in the bathroom and intake and output has not been recorded. Patient denies any chest pain, abdominal pain, nausea, vomiting, diarrhea. Afebrile. - Exam Vitals: Temp Pulse Resp BP Pulse Ox 98.5 F 92 17 157/74 96 05/12/18 11:08 05/12/18 11:08 05/12/18 11:30 05/12/18 11:08 05/12/18 11:30 Exam: Constitutional: No acute distress, Alert, sitting in chair Psych: AAO x 3 HEENT: NCAT, EOMI Neck: supple Cardio: regular rate and rhythm, +s1s2, no murmurs; JVD is hard to appreciate secondary to the patient's morbid obesity Resp: Exam significantly limited secondary to body habitus; has faint bibasilar crackles and decreased breath sounds at bases; faint exp wheezes Abd: soft, morbidly obese, nontender non-distended Extremities: 2+ pitting edema to mid thighs reportedly improved per patient unchanged Neuro: no focal deficits appreciated - Assessment and Plan (1) Acute on chronic respiratory failure with hypoxia and hypercapnia Current Visit: Yes Status: Acute Assessment and Plan: Patient with acute on chronic hypoxic/hypercapnic respiratory failure. -Secondary to COPD and CHF exacerbations -Continue supplemental oxygen currently at 6 L reports 4-10 L continuously at home -Continue IV diuresis daily -strict I/Os -Patient unable to tolerate full echocardiogram secondary to orthopnea, ejection fraction 60-65% -Continue IV steroids will wean -Continue bronchodilators -check sputum culture (2) COPD with exacerbation Current Visit: Yes Status: Acute Assessment and Plan: -Suspect instigated by bronchitis -Continue doxycycline -Continue IV steroids will wean to 40 mg every 12 hours of Solu-Medrol -Continue bronchodilators -Continue supplemental oxygen to maintain pulse ox of 88-92% (3) Atrial fibrillation Current Visit: Yes Status: Chronic Assessment and Plan: -Monitor heart rate -Continue home medications including Cardizem and propafenone (4) Acute on chronic heart failure with normal ejection fraction Current Visit: Yes Status: Acute Assessment and Plan: Continues to have severe dyspnea on exertion and orthopnea -Continues to be decompensated -TU IV diuretic is on his renal function is okay we will recheck BMP today -continue daily IV lasix -Patient reports excellent diuresis however intake and output is not recorded stress importance of this to the patient -Reports slight improvement or orthopnea and dyspnea on exertion however remains not to baseline -Unable tolerate echocardiogram secondary to orthopnea; attempt to repeat when respiratory status improved (5) Anemia Current Visit: Yes Status: Acute Assessment and Plan: -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 -Presented with hemoglobin of 8.0 which down trended to 7.7 and is now up to 8.4 ; FOB is positive -She has had recent extensive GI evaluation and workup including upper and lower endoscopies -Patient needs to have outpatient capsule endoscopy -Spoke with general surgeon today and agree that repeat endoscopy is unlikely to be of any benefit currently secondary to the patient's stable hemoglobin and recent negative workup -Continue iron supplementation -Check AM CBC -Continue oral PPI (6) Morbid obesity with BMI of 60.0-69.9, adult Current Visit: Yes Status: Acute Assessment and Plan: -lifestyle modifications encouraged DVT Prophylaxis: -SCDs, start sub q heparin - Summary of Assessment and Plan Summary of Assessment and Plan: -Respiratory status slowly improving -Continue to wean IV steroids hopefully change to orals the next 24-48 hours -Check sputum sample due to development of productive cough -Continue daily IV diuresis likely change to oral soon -Needs intake and output recorded -Continue to wean supplemental oxygen, approaching baseline -Doxycycline - Time Spent with Patient Total time spent is greater than 50% in coordination of care (as documented) at patient's floor/unit and/or counseling patient: 25 - 35 minutes Plan of Care Discussed with: patient Internal Medicine: Result - Labs CBC & Chem 7: 05/12/18 04:17 05/12/18 04:17 Labs: Short CBC 05/12/18 Range/Units 04:17 WBC 7.1 (4.3-11.1) K/mcL Hgb 8.4 L (11.5-15.4) g/dL Hct 31.3 L (35.3-44.9) % Plt Count 207 (140-400) K/mcL Neutrophils # 6.2 (1.6-8.9) K/mcL BMP 05/12/18 04:17 Sodium 142 Potassium 4.3 Chloride 94 L Carbon Dioxide 41 H* BUN 50 H Creatinine 0.95 Glucose 289 H Calcium 9.2 - ABG Interpretation ABG results: ABG ABG pH 7.37 pH Units (7.32-7.45) 05/08/18 16:12 ABG pCO2 78 mmHg (35-45) H* 05/08/18 16:12 ABG pO2 74 mmHg (85-104) L 05/08/18 16:12 ABG O2 Saturation 93 % (95-98) L 05/08/18 16:12 - Impressions Impressions Chest X-Ray 05/12/18 08:00 IMPRESSION: 1. Stable cardiopulmonary status including bibasilar atelectasis, bilateral effusions, and mild to moderate pulmonary edema. 2. Low lung volumes. D/ : / 05/12/2018 08:00:26 Sabi Hilton MD / duc Interpreting Provider: Sabi Hilton MD Consult Discharge Plan - Plan Referrals: Lisbet Ray CNP [Primary Care Provider] - 05/15/18 9:30 am () (3) Atrial fibrillation Qualifiers: Atrial fibrillation type: paroxysmal Qualified Code(s): I48.0 - Paroxysmal atrial fibrillation (5) Anemia Qualifiers: Anemia type: iron deficiency Iron deficiency anemia type: chronic blood loss Qualified Code(s): D50.0 - Iron deficiency anemia secondary to blood loss ( chronic)
[2018-05-12] MEDS: rOPINIRole 1 MG TABLET PO SCH (21:03)
[2018-05-13] MEDS: Ipratropium/Albuterol Neb 3 ML IH SCH ×6 (03:49→23:42)
[2018-05-13 05:18] LABS: Basophils % 0.1 %; Monocytes % 10.3 %
[2018-05-13 05:19] LABS: Hematocrit 30.3 % (35.3-44.9); Hemoglobin 8.2 g/dL (11.5-15.4); Immature Granulocytes % 1.4 % (0-4); Lymphocytes # 0.3 K/mcL (0.6-4.6); Lymphocytes % 4.4 %; Mean Corpuscular HGB Conc 27.1 g/dL (31.6-35.5); Mean Corpuscular Hemoglobin 23.4 pg (28.0-33.3); Mean Corpuscular Volume 86.3 fL (83.0-100.0); Mean Platelet Volume 11.9 fL (9.4-12.4); Monocytes # 0.8 K/mcL (0.0-1.3); Neutrophils # 6.5 K/mcL (1.6-8.9); Platelet Count 212 K/mcL (140-400); Red Blood Count 3.51 M/mcL (3.82-4.97); Red Cell Distribution Width 15.9 % (11.5-14.5); Segmented Neutrophils % 83.8 %
[2018-05-13 05:39] LABS: BUN/Creatinine Ratio 53 (6-26); Blood Urea Nitrogen 50 mg/dL (8-23); Carbon Dioxide 43 mEq/L (23-29); Chloride 95 mEq/L (98-107); Glucose 281 mg/dL (70-105); Magnesium 2.5 mg/dL (1.6-2.6); Osmolality,Calculated 317 (280-300); Potassium 4.6 mEq/L (3.5-5.1); Sodium 142 mEq/L (136-145); eGFR For Non-African Americans 58 (> 60)
[2018-05-13 05:40] LABS: Phosphorous 3.2 mg/dL (2.7-4.5)
[2018-05-13] MEDS: MethylPREDNISolone 40 MG/ML VIAL IVP SCH ×2 (06:06→17:31)
[2018-05-13] MEDS: *HR* Heparin 5,000 UNIT/ML VIAL SQ SCH ×2 (06:06→17:34)
[2018-05-13 06:10] LABS: Hypochromasia Present (Not Present); Platelet Estimate Normal (Normal)
[2018-05-13] MEDS: ADVAIR DISKUS 250/50 IH SCH ×2 (07:54→19:46)
[2018-05-13] MEDS: (Propafenone Hcl [Propafenone Hcl Er] 325 MG) PO SCH (08:32)
[2018-05-13] MEDS: Diltiazem CD (24hr) 120 MG CAPSULE PO SCH (08:33)
[2018-05-13] MEDS: Doxycycline 100 MG CAPSULE PO SCH ×2 (08:34→21:44)
[2018-05-13] MEDS: Cholecalciferol (D-3) 1,000 UNIT TABLET PO SCH (08:35)
[2018-05-13] MEDS: Magnesium Oxide 400 MG TABLET PO SCH (08:35)
[2018-05-13] MEDS: Cyanocobalamin (B-12) 1,000 MCG TABLET PO SCH (08:36)
[2018-05-13] MEDS: Nystatin SUSP 5 ML UD.LIQ BC SCH ×4 (08:37→21:45)
[2018-05-13] MEDS: Furosemide 40 MG/4 ML VIAL IVP SCH (08:39)
--- NOTE | 2018-05-13 09:14 | Internal Med Progress Note ---
Hospitalist Progress Note - Encounter Date of Encounter: 05/13/18 Time of Encounter: 09:11 - Subjective Interval History: Patient seen and examined at bedside. Patient no acute overnight events. Patient states that she feels like she is finally starting to improve. Patient remains on 6 L high flow nasal cannula but is currently satting 100%. I instructed RN to wean down to at least 4 L which is her home dose. She denies any chest pain, palpitations, nausea, vomiting, diarrhea. Patient admits to continued cough with increasing sputum production. Patient was able to produce sputum yesterday. This x-ray yesterday revealed continued pulmonary edema. - Exam Vitals: Temp Pulse Resp BP Pulse Ox 98.5 F 91 16 151/70 100 05/13/18 06:31 05/13/18 06:31 05/13/18 07:57 05/13/18 06:31 05/13/18 07:57 Exam: Constitutional: No acute distress, Alert, sitting in chair Psych: AAO x 3 HEENT: NCAT Neck: supple Cardio: regular rate and rhythm, +s1s2, no murmurs Resp: Exam significantly limited secondary to body habitus; has faint bibasilar crackles and decreased breath sounds at bases; increased expiratory wheezes today Abd: soft, morbidly obese, nontender non-distended Extremities: 2+ pitting edema to mid thighs reportedly improved per patient unchanged Neuro: no focal deficits appreciated - Assessment and Plan (1) Acute on chronic respiratory failure with hypoxia and hypercapnia Current Visit: Yes Status: Acute Assessment and Plan: Patient with acute on chronic hypoxic/hypercapnic respiratory failure. -Secondary to COPD and CHF exacerbations -Continue supplemental oxygen currently at 6 L reports 4-10 L continuously at home -Continue IV diuresis daily; likely change to orals in next 24-48 hours -strict I/Os; continues to not be recorded -Patient unable to tolerate full echocardiogram secondary to orthopnea, ejection fraction 60-65% -Continue IV steroids will transition to po tomorrow -Continue bronchodilators -check sputum culture; sample given (2) COPD with exacerbation Current Visit: Yes Status: Acute Assessment and Plan: -Suspect instigated by bronchitis -Continue doxycycline -Continue IV steroids will transition to orals in am -Continue bronchodilators -Continue supplemental oxygen to maintain pulse ox of 88-92% (3) Atrial fibrillation Current Visit: Yes Status: Chronic Assessment and Plan: -Monitor heart rate -Continue home medications including Cardizem and propafenone (4) Acute on chronic heart failure with normal ejection fraction Current Visit: Yes Status: Acute Assessment and Plan: Continues to have severe dyspnea on exertion and orthopnea -nearly compensated although cxr still reveals pulm edema -continue daily IV lasix -Patient reports excellent diuresis however intake and output is not recorded stress importance of this to the patient -Reports slight improvement or orthopnea and dyspnea on exertion however remains not to baseline -Unable tolerate echocardiogram secondary to orthopnea; attempt to repeat when respiratory status improved (5) Anemia Current Visit: Yes Status: Acute Assessment and Plan: -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 -Presented with hemoglobin of 8.0 which down trended to 7.7 and is now up to 8.2 today; FOB is positive -She has had recent extensive GI evaluation and workup including upper and lower endoscopies -Patient needs to have outpatient capsule endoscopy -Spoke with general surgeon and agree that repeat endoscopy is unlikely to be of any benefit currently secondary to the patient's stable hemoglobin and recent negative workup -Continue iron supplementation -Check AM CBC -Continue oral PPI (6) Morbid obesity with BMI of 60.0-69.9, adult Current Visit: Yes Status: Acute Assessment and Plan: -lifestyle modifications encouraged DVT Prophylaxis: -SCDs, sq heparin - Summary of Assessment and Plan Summary of Assessment and Plan: -Respiratory status slowly improving -Continue to wean steroids and change to oral tomorrow -f/u sputum sample -Continue daily IV diuresis likely change to oral soon -Needs intake and output recorded -Continue to wean supplemental oxygen, approaching baseline -Doxycycline - Time Spent with Patient Total time spent is greater than 50% in coordination of care (as documented) at patient's floor/unit and/or counseling patient: 25 - 35 minutes Plan of Care Discussed with: patient Internal Medicine: Result - Labs CBC & Chem 7: 05/13/18 04:33 05/13/18 04:33 Labs: Short CBC 05/13/18 Range/Units 04:33 WBC 7.7 (4.3-11.1) K/mcL Hgb 8.2 L (11.5-15.4) g/dL Hct 30.3 L (35.3-44.9) % Plt Count 212 (140-400) K/mcL Neutrophils # 6.5 (1.6-8.9) K/mcL BMP 05/13/18 04:33 Sodium 142 Potassium 4.6 Chloride 95 L Carbon Dioxide 43 H* BUN 50 H Creatinine 0.95 Glucose 281 H Calcium 9.0 - ABG Interpretation ABG results: ABG ABG pH 7.37 pH Units (7.32-7.45) 05/08/18 16:12 ABG pCO2 78 mmHg (35-45) H* 05/08/18 16:12 ABG pO2 74 mmHg (85-104) L 05/08/18 16:12 ABG O2 Saturation 93 % (95-98) L 05/08/18 16:12 Consult Discharge Plan - Plan Referrals: Lisbet Ray, [employer]CHNICIAN [Primary Care Provider] - 05/15/18 9:30 am () (3) Atrial fibrillation Qualifiers: Atrial fibrillation type: paroxysmal Qualified Code(s): I48.0 - Paroxysmal atrial fibrillation (5) Anemia Qualifiers: Anemia type: iron deficiency Iron deficiency anemia type: chronic blood loss Qualified Code(s): D50.0 - Iron deficiency anemia secondary to blood loss ( chronic)
[2018-05-13] MEDS: rOPINIRole 1 MG TABLET PO SCH (21:45)
[2018-05-14] MEDS: Ipratropium/Albuterol Neb 3 ML IH SCH ×5 (04:19→19:49)
[2018-05-14 05:30] LABS: Basophils % 0.1 %; Red Cell Distribution Width 15.8 % (11.5-14.5)
[2018-05-14 05:31] LABS: Hematocrit 30.7 % (35.3-44.9); Hemoglobin 8.4 g/dL (11.5-15.4); Immature Granulocytes % 1.1 % (0-4); Lymphocytes # 0.3 K/mcL (0.6-4.6); Lymphocytes % 4.3 %; Mean Corpuscular HGB Conc 27.4 g/dL (31.6-35.5); Mean Corpuscular Hemoglobin 23.7 pg (28.0-33.3); Mean Corpuscular Volume 86.7 fL (83.0-100.0); Mean Platelet Volume 12.2 fL (9.4-12.4); Monocytes # 0.8 K/mcL (0.0-1.3); Monocytes % 9.8 %; Neutrophils # 6.8 K/mcL (1.6-8.9); Nucleated Red Blood Cells 0.3 /100 WBC (0); Platelet Count 219 K/mcL (140-400); Red Blood Count 3.54 M/mcL (3.82-4.97); Segmented Neutrophils % 84.7 %
[2018-05-14 05:58] LABS: BUN/Creatinine Ratio 49 (6-26); Blood Urea Nitrogen 43 mg/dL (8-23); Calcium 9.2 mg/dL (8.6-10.3); Carbon Dioxide 41 mEq/L (23-29); Chloride 95 mEq/L (98-107); Glucose 261 mg/dL (70-105); Osmolality,Calculated 314 (280-300); Potassium 4.7 mEq/L (3.5-5.1); Sodium 142 mEq/L (136-145); eGFR For Non-African Americans > 60 (> 60)
[2018-05-14] MEDS: *HR* Heparin 5,000 UNIT/ML VIAL SQ SCH ×2 (06:07→17:26)
[2018-05-14 06:19] LABS: Hypochromasia Present (Not Present); Platelet Estimate Normal (Normal)
[2018-05-14] MEDS: ADVAIR DISKUS 250/50 IH SCH ×2 (07:17→19:49)
[2018-05-14] MEDS: Diltiazem CD (24hr) 120 MG CAPSULE PO SCH (08:30)
[2018-05-14] MEDS: Doxycycline 100 MG CAPSULE PO SCH ×2 (08:30→20:09)
[2018-05-14] MEDS: Cyanocobalamin (B-12) 1,000 MCG TABLET PO SCH (08:30)
[2018-05-14] MEDS: Cholecalciferol (D-3) 1,000 UNIT TABLET PO SCH (08:30)
[2018-05-14] MEDS: Magnesium Oxide 400 MG TABLET PO SCH (08:30)
[2018-05-14] MEDS: Furosemide 40 MG/4 ML VIAL IVP SCH (08:31)
[2018-05-14] MEDS: Nystatin SUSP 5 ML UD.LIQ BC SCH ×4 (08:32→20:09)
[2018-05-14] MEDS: (Propafenone Hcl [Propafenone Hcl Er] 325 MG) PO SCH ×3 (08:36→20:08)
[2018-05-14] MEDS: predniSONE 20 MG TABLET PO SCH (08:36)
--- NOTE | 2018-05-14 09:30 | Internal Med Progress Note ---
<Lilliam Connolly - Last Filed: 05/14/18 13:40> Hospitalist Progress Note - Encounter Date of Encounter: 05/14/18 Time of Encounter: 09:00 - Subjective Interval History: Patient seen and examined. No acute events overnight. The patient is sitting comfortably in chair with at bedside. Patient states shes doing alright. States her shortness of breath is improved but not at her baseline. Admits cough with green sputum. Witnessed mild cough during visit. Admits swelling in legs. Denies any other complaints at this time. Denies chest pain. Denies fever/chills. Denies nausea/vomiting, abdominal pain, constipation/ diarrhea. Denies urinary symptoms. - Exam Vitals: Temp Pulse Resp BP Pulse Ox 98.5 F 79 16 151/80 97 05/14/18 07:42 05/14/18 07:42 05/14/18 07:42 05/14/18 07:42 05/14/18 07:42 Exam: General: Morbidly obese. Alert and oriented x3. No acute distress. Head: atraumatic, normocephalic. Eye: pupils equal and round. Sclera anicteric. EOMI. Mouth: Mucosa moist. Normal oropharynx, no erythema or exudates. Neck: supple. Trachea midline. Lungs: Mild diffuse wheezing. No rhonchi or rales. No respiratory distress. No accessory muscle use. Cardiovascular: Normal S1 & S2. No rubs or gallops. Pulse regular. Abdomen: Morbidly obese. Normal bowel sounds. Diffusely tender to palpation. No rigidity, no rebound. Extremities: 1+ pitting edema in bilateral lower extremities. No joint swelling or clubbing. Nontender. Skin: warm, dry, and intact. - Assessment and Plan (1) Acute on chronic respiratory failure with hypoxia and hypercapnia Current Visit: Yes Status: Acute Assessment and Plan: History of CHF and COPD on 4L home oxygen. Secondary to CHF and COPD exacerbations ABG showed pH 7.44, pCO2 elevated at 85, pO2 98, and HCO3 elevated at 57. Sputum culture showed gram positive cocci. Followup. Patient unable to tolerate full echocardiogram secondary to orthopnea, ejection fraction 60-65% and severe pulmonary hypertension. Continue supplemental oxygen currently at 5L. Reports 4-10 L continuously at home. Continue IV diuresis daily; likely change to orals tomorrow. Strict I/Os; continues to not be recorded. Transitioned to PO prednisone today. Continue bronchodilators. (2) COPD with exacerbation Current Visit: Yes Status: Acute Assessment and Plan: History of COPD on 4L home oxygen. Secondary to suspected bronchitis Continue supplemental oxygen to maintain pulse ox of 88-92% Continue doxycycline 100mg PO BID (day 7). Transitioned to PO prednisone today. Continue bronchodilators. (3) Acute on chronic heart failure with normal ejection fraction Current Visit: Yes Status: Acute Assessment and Plan: History of CHF. CXR showed pulmonary edema. Echo showed LVEF 60-65% and severe pulmonary hypertension. Patient could not tolerate echocardiogram secondary to orthopnea; attempt to repeat when respiratory status improved. Improved, but not to baseline. Continue daily IV Lasix. Transition to PO tomorrow. Patient reports excellent diuresis, but intake and output is not recorded. Stress importance of this to the patient. (4) Atrial fibrillation Current Visit: Yes Status: Chronic Assessment and Plan: Monitor heart rate. Continue home medications including Cardizem and propafenone. (5) Morbid obesity with BMI of 60.0-69.9, adult Current Visit: Yes Status: Acute Assessment and Plan: Lifestyle modifications encouraged. 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 Presented with hemoglobin of 8.0 which down trended to 7.7 and is now up to 8.4 today. FOB is positive. Had recent extensive GI evaluation and workup including upper and lower endoscopies last month. Patient needs outpatient capsule endoscopy. General surgeon agrees that repeat endoscopy is unlikely to be of any benefit currently secondary to the patient's stable hemoglobin and recent negative workup. Continue iron supplementation. Monitor AM CBC. Continue oral PPI. DVT Prophylaxis: -SCDs, sq heparin - Time Spent with Patient Total time spent is greater than 50% in coordination of care (as documented) at patient's floor/unit and/or counseling patient: Internal Medicine: Result - Labs CBC & Chem 7: 05/14/18 04:16 05/14/18 04:16 Labs: Short CBC 05/14/18 Range/Units 04:16 WBC 8.0 (4.3-11.1) K/mcL Hgb 8.4 L (11.5-15.4) g/dL Hct 30.7 L (35.3-44.9) % Plt Count 219 (140-400) K/mcL Neutrophils # 6.8 (1.6-8.9) K/mcL BMP 05/14/18 04:16 Sodium 142 Potassium 4.7 Chloride 95 L Carbon Dioxide 41 H* BUN 43 H Creatinine 0.88 Glucose 261 H Calcium 9.2 - ABG Interpretation ABG results: ABG ABG pH 7.37 pH Units (7.32-7.45) 05/08/18 16:12 ABG pCO2 78 mmHg (35-45) H* 05/08/18 16:12 ABG pO2 74 mmHg (85-104) L 05/08/18 16:12 ABG O2 Saturation 93 % (95-98) L 05/08/18 16:12 Consult Discharge Plan - Plan Referrals: Lisbet Ray CNP [Primary Care Provider] - 05/15/18 9:30 am () <Yang Sim - Last Filed: 05/14/18 16:31> Hospitalist Progress Note - Encounter Date of Encounter: 05/14/18 - Exam Vitals: Temp Pulse Resp BP Pulse Ox 98.7 F 82 18 148/74 93 05/14/18 15:21 05/14/18 15:21 05/14/18 15:44 05/14/18 15:21 05/14/18 15:44 - Assessment and Plan (1) COPD with exacerbation Current Visit: Yes Status: Acute (2) Atrial fibrillation Current Visit: Yes Status: Chronic (3) Acute on chronic heart failure with normal ejection fraction Current Visit: Yes Status: Acute (4) Morbid obesity with BMI of 60.0-69.9, adult Current Visit: Yes Status: Acute (5) Acute on chronic respiratory failure with hypoxia and hypercapnia Current Visit: Yes Status: Acute (6) Anemia Current Visit: Yes Status: Acute - Time Spent with Patient Total time spent is greater than 50% in coordination of care (as documented) at patient's floor/unit and/or counseling patient: Internal Medicine: Result - Labs CBC & Chem 7: 05/14/18 04:16 05/14/18 04:16 Labs: Short CBC 05/14/18 Range/Units 04:16 WBC 8.0 (4.3-11.1) K/mcL Hgb 8.4 L (11.5-15.4) g/dL Hct 30.7 L (35.3-44.9) % Plt Count 219 (140-400) K/mcL Neutrophils # 6.8 (1.6-8.9) K/mcL BMP 05/14/18 04:16 Sodium 142 Potassium 4.7 Chloride 95 L Carbon Dioxide 41 H* BUN 43 H Creatinine 0.88 Glucose 261 H Calcium 9.2 - ABG Interpretation ABG results: ABG ABG pH 7.37 pH Units (7.32-7.45) 05/08/18 16:12 ABG pCO2 78 mmHg (35-45) H* 05/08/18 16:12 ABG pO2 74 mmHg (85-104) L 05/08/18 16:12 ABG O2 Saturation 93 % (95-98) L 05/08/18 16:12 - Attending Attestation 67 year old female patient with history of COPD who presented to the ER with complaints of shortness of breath. Her symptoms have been going on for 2-3 days now. She denies any fevers or chills. She does have cough. Nonproductive. She does describe pleuritic chest pain in the lower sternal region. S: Feels better this am Exam Constitutional: No acute distress, Alert, sitting in chair Psych: AAO x 3 HEENT: NCAT Neck: supple Cardio: regular rate and rhythm, +s1s2, no murmurs Resp: Exam significantly limited secondary to body habitus; has faint bibasilar crackles and decreased breath sounds at bases; increased expiratory wheezes today Abd: soft, morbidly obese, nontender non-distended Extremities: 2+ pitting edema Neuro: no focal deficits appreciated Plan Acute on chronic resp failure with hypoxia and hypercapnia 2/2 to COPD and acute diastolic CHF Continue IV lasix. transitioned to po prednisone Maintain oxygen above 93%. Continue nebs as needed <Lilliam Connolly - Last Filed: 05/14/18 13:40> (4) Atrial fibrillation Qualifiers: Atrial fibrillation type: paroxysmal Qualified Code(s): I48.0 - Paroxysmal atrial fibrillation (6) Anemia Qualifiers: Anemia type: iron deficiency Iron deficiency anemia type: chronic blood loss Qualified Code(s): D50.0 - Iron deficiency anemia secondary to blood loss ( chronic) <Yang Sim - Last Filed: 05/14/18 16:31> (2) Atrial fibrillation Qualifiers: Atrial fibrillation type: paroxysmal Qualified Code(s): I48.0 - Paroxysmal atrial fibrillation (6) Anemia Qualifiers: Anemia type: iron deficiency Iron deficiency anemia type: chronic blood loss Qualified Code(s): D50.0 - Iron deficiency anemia secondary to blood loss ( chronic)
[2018-05-14] MEDS: rOPINIRole 1 MG TABLET PO SCH (20:09)
[2018-05-15] MEDS: Ipratropium/Albuterol Neb 3 ML IH SCH ×4 (00:02→11:05)
[2018-05-15] MEDS: *HR* Heparin 5,000 UNIT/ML VIAL SQ SCH (05:05)
[2018-05-15] MEDS: ADVAIR DISKUS 250/50 IH SCH (07:28)
[2018-05-15 07:35] VITALS: BP 178/76
[2018-05-15 08:29] LABS: BUN/Creatinine Ratio 47 (6-26); Blood Urea Nitrogen 46 mg/dL (8-23); Calcium 9.4 mg/dL (8.6-10.3); Carbon Dioxide 43 mEq/L (23-29); Chloride 95 mEq/L (98-107); Glucose 137 mg/dL (70-105); Osmolality,Calculated 308 (280-300); Potassium 4.5 mEq/L (3.5-5.1); Sodium 142 mEq/L (136-145); eGFR For Non-African Americans 56 (> 60)
[2018-05-15] MEDS: Cyanocobalamin (B-12) 1,000 MCG TABLET PO SCH (08:39)
[2018-05-15] MEDS: Magnesium Oxide 400 MG TABLET PO SCH (08:39)
[2018-05-15] MEDS: Diltiazem CD (24hr) 120 MG CAPSULE PO SCH (08:39)
[2018-05-15] MEDS: Cholecalciferol (D-3) 1,000 UNIT TABLET PO SCH (08:39)
[2018-05-15] MEDS: Doxycycline 100 MG CAPSULE PO SCH (08:39)
[2018-05-15] MEDS: predniSONE 20 MG TABLET PO SCH (08:39)
[2018-05-15] MEDS: (Propafenone Hcl [Propafenone Hcl Er] 325 MG) PO SCH (08:41)
[2018-05-15] MEDS: Nystatin SUSP 5 ML UD.LIQ BC SCH (08:42)
[2018-05-15] MEDS: Furosemide 40 MG/4 ML VIAL IVP SCH (08:42)
[2018-05-15 09:12] LABS: Basophils % 0.2 %; Segmented Neutrophils % 78.9 %
[2018-05-15 09:13] LABS: Eosinophils % 0.2 %; Hematocrit 34.7 % (35.3-44.9); Hemoglobin 9.3 g/dL (11.5-15.4); Immature Granulocytes % 0.9 % (0-4); Lymphocytes % 10.8 %; Mean Corpuscular HGB Conc 26.8 g/dL (31.6-35.5); Mean Corpuscular Hemoglobin 23.5 pg (28.0-33.3); Mean Corpuscular Volume 87.6 fL (83.0-100.0); Mean Platelet Volume 12.1 fL (9.4-12.4); Monocytes # 0.9 K/mcL (0.0-1.3); Neutrophils # 7.6 K/mcL (1.6-8.9); Platelet Count 219 K/mcL (140-400); Red Blood Count 3.96 M/mcL (3.82-4.97); Red Cell Distribution Width 15.9 % (11.5-14.5)
--- NOTE | 2018-05-15 10:01 | Discharge Summary ---
<Lilliam Connolly - Last Filed: 05/15/18 09:59> - NOTES TO OUTPATIENT PROVIDER Notes to Outpatient Provider: Patient needs outpatient capsule endoscopy. Orders not resulted at time of discharge: Pending orders 05/12/18 13:08 Sputum Culture [Culture,Sputum with Gram Stain] [] Routine Date of Encounter: 05/15/18 Time of Encounter: 08:00 - Discharge Diagnosis (1) Acute on chronic respiratory failure with hypoxia and hypercapnia Priority: Primary Status: Acute (2) COPD with exacerbation Priority: Primary Status: Acute (3) Acute on chronic heart failure with normal ejection fraction Priority: Primary Status: Acute (4) Atrial fibrillation Priority: Secondary Status: Chronic Qualifiers: Atrial fibrillation type: paroxysmal Qualified Code(s): I48.0 - Paroxysmal atrial fibrillation (5) Morbid obesity with BMI of 60.0-69.9, adult Priority: Secondary Status: Acute (6) Anemia Priority: Primary Status: Acute Qualifiers: Anemia type: iron deficiency Iron deficiency anemia type: chronic blood loss Qualified Code(s): D50.0 - Iron deficiency anemia secondary to blood loss (chronic) Hospital course: Ms. Guevara is a 67 year old female patient with history of morbid obesity BMI 64 , COPD on 4L home oxygen, CHF, A-fib, HTN, and GERD. Patient presented to the ER with complaints of shortness of breath for 2-3 days. She was hospitalized in April for an episode of CHF exacerbation, anemia and atrial fibrillation. Admits nonproductive cough, leg swelling, and pleuritic chest pain. Denies orthopnea, PND, fevers/chills, palpitations, lightheadedness/dizziness. In the ER she received bronchodilator nebs and intravenous steroids which seemed to help with her symptoms. Patient was tachypneic with oxygen saturation 100% on 10L. Other vital signs were stable. CBC showed anemia, no leukocytosis. BMP showed elevated bicarb at 45. ABG showed ph 7.44, pCO2 elevated at 85, pO2 98, and HCO3 elevated at 57. Troponins were negative. BNP was normal. Vit B12 and folate were normal. Hemoccult was positive. Iron was low. Ferritin was normal. Sputum culture showed gram positive cocci. CXR showed pulmonary edema. Echo showed ejection fraction 60-65% and severe pulmonary hypertension. Patient was unable to tolerate full echocardiogram secondary to orthopnea. BiPAP qualification study was unable to be done appropriately because patients continually increased oxygen liter flow during study. Regardless, patient refuses BiPap. Acute on chronic respiratory failure with hypoxia and hypercapnia from COPD and CHF exacerbation was treated with supplemental oxygen, diuresis, steroids, and bronchodilators. Doxycycline was given for suspected bronchitis. Chronic blood loss anemia with iron deficiency. She had upper GI endoscopy and colonoscopy done in Apr which did not show any acute bleeding. She did have reflux esophagitis. She has been on Plavix and this was continued. She denies any blood in his stools or dark colored stools. Surgery was consulted. Repeat endoscopy not recommended due to stable Hb and recent negative workup. Iron supplementation and PPI was continued. It was determined that patient needs outpatient capsule endoscopy. Symptoms are improved. Oxygen supplementation back to baseline 4L. With discussion with patient, it is determined that patient is ready to be discharged. - Time Spent with Patient Total time spent providing and/or coordinating discharge services: Greater than 30 minutes (42 minutes) - Discharge Medications Prescriptions: Omeprazole [PriLOSEC] 40 mg PO DAILY #30 cap predniSONE [PredniSONE] See Taper PO DAILY #35 tablet Home Medications: Alendronate Sodium [Fosamax] 70 mg PO WE 10/28/15 [History] Ascorbate Calcium [Vitamin C] 500 mg PO DAILY 10/28/15 [History] Cyanocobalamin (Vitamin B-12) [Vitamin B-12] 100 mcg PO DAILY 10/28/15 [History] Tiotropium [Spiriva] 2 puff PO HS 10/28/15 [History] Ferrous Sulfate [Iron] 325 mg PO DAILY 07/03/16 [History] Albuterol Sulfate [Proventil Hfa] 2 puff IH Q4H PRN 09/14/16 [History] Oxygen 3 l IH AD 10/24/16 [History] Fluticasone/Salmeterol [Advair 250-50 Diskus] 1 puff IH BID #1 blst.w.dev [Rx] Montelukast [Singulair] 10 mg PO DAILY 11/29/16 [History] Ropinirole HCl [Requip] 4 mg PO HS 11/29/16 [History] Magnesium Oxide [Mag-Ox] 400 mg PO DAILY #30 tablet 12/04/16 [Rx] Calcium Carbonate [Calcium] 600 mg PO BID 05/08/17 [History] Fluorometholone [Fml Forte] 1 drop LEFT EYE QID 05/08/17 [History] Diltiazem CD (24hr) [Cardizem CD] 120 mg PO DAILY cap.er.24h 05/21/17 [Rx] Acetaminophen/Diphenhydramine [Percogesic 325-12.5 mg Tablet] 1 - 2 tab PO HS PRN 07/19/17 [History] DiphenhydraMINE [Benadryl] 25 mg PO HS PRN capsule 07/23/17 [Rx] Cholecalciferol (D-3) [Vitamin D] 5,000 unit PO DAILY 03/14/18 [History] Lisinopril 2.5 mg PO BID 03/14/18 [History] Propafenone HCl [Propafenone HCl ER] 325 mg PO Q12H 04/03/18 [History] Clopidogrel [Plavix] 75 mg PO DAILY 30 Days #30 tablet 04/11/18 [Rx] Furosemide [Lasix] 20 mg PO HS 05/08/18 [History] Furosemide [Lasix] 40 mg PO DAILY 05/08/18 [History] Omeprazole [PriLOSEC] 40 mg PO DAILY #30 cap 05/15/18 [Rx] predniSONE [PredniSONE] See Taper PO DAILY #35 tablet 05/15/18 [Rx] Allergies/Adverse Reactions: 3 Allergy/AdvReac Type Severity Reaction Status Date / Time aspirin [ASA] Allergy Difficulty Verified 03/14/18 13:43 Breathing Penicillins Allergy Hives Verified 03/14/18 13:43 Sulfa (Sulfonamide Allergy Rash Verified 03/14/18 13:43 Antibiotics) Date of admission: 05/08/18 14:38 Primary care physician: Lisbet Ray CNP Consults: 05/10/18 18:38 Consult to Gastroenterology [CONS] Routine Consulting Provider: Gastroenterology Mora Reason for Consult: GI bleed Call Completed: No Discharging clinician: Lilliam Connolly Anticipated date of discharge: 05/15/18 - Constitutional Vitals: Temp Pulse Resp BP Pulse Ox 98.2 F 78 16 178/76 100 05/15/18 07:33 05/15/18 07:33 05/15/18 07:33 05/15/18 07:33 05/15/18 07:33 General appearance: Present: cooperative, A&O X 3, morbidly obese, answers questions appropriately Exam: General: Morbidly obese. Alert and oriented x3. No acute distress. Head: atraumatic, normocephalic. Eye: pupils equal and round. Sclera anicteric. EOMI. Mouth: Mucosa moist. Normal oropharynx, no erythema or exudates. Neck: supple. Trachea midline. Lungs: Mild diffuse rhonchi. No rales or wheezing. No respiratory distress. No accessory muscle use. Oxygen saturation 100% on 4L NC. Cardiovascular: Normal S1 & S2. No rubs or gallops. Pulse regular. Abdomen: Morbidly obese. Normal bowel sounds. Diffusely tender to palpation. No rigidity, no rebound. Extremities: 1+ pitting edema in bilateral lower extremities. No joint swelling or clubbing. Nontender. Skin: warm, dry, and intact. - Patient Status Disposition: Home Health Service Condition: Fair - Discharge Instructions Instructions: Influenza Virus Vaccine (Injection), Heart Failure (DC), Atrial Fibrillation (DC), Acute Respiratory Distress Syndrome (DC), Anemia (GEN) Follow Up With: Lisbet Ray CNP [Primary Care Provider] - 05/17/18 9:30 am () - Diet and Activity Activity: increase activity as tolerated Diet: low fat, low cholesterol, low salt diet <Yang Sim - Last Filed: 05/15/18 14:12> Date of Encounter: 05/15/18 - Discharge Diagnosis (1) COPD with exacerbation Status: Acute (2) Atrial fibrillation Status: Chronic Qualifiers: Atrial fibrillation type: paroxysmal Qualified Code(s): I48.0 - Paroxysmal atrial fibrillation (3) Acute on chronic heart failure with normal ejection fraction Status: Acute (4) Morbid obesity with BMI of 60.0-69.9, adult Status: Acute (5) Acute on chronic respiratory failure with hypoxia and hypercapnia Status: Acute (6) Anemia Status: Acute Qualifiers: Anemia type: iron deficiency Iron deficiency anemia type: chronic blood loss Qualified Code(s): D50.0 - Iron deficiency anemia secondary to blood loss (chronic) Hospital course: Ms. Guevara is a 67 year old female - Time Spent with Patient Total time spent providing and/or coordinating discharge services: Date of admission: 05/08/18 14:38 Primary care physician: Lisbet Ray CNP Consults: 05/10/18 18:38 Consult to Gastroenterology [CONS] Routine Consulting Provider: Amparo Velazco Reason for Consult: GI bleed Call Completed: No - Constitutional Vitals: Temp Pulse Resp BP Pulse Ox 98.2 F 78 16 178/76 100 05/15/18 07:33 05/15/18 07:33 05/15/18 07:33 05/15/18 07:33 05/15/18 10:04 - Attending Attestation 67 year old female patient with history of COPD who presented to the ER with complaints of shortness of breath. Her symptoms have been going on for 2-3 days now. She denies any fevers or chills. She does have cough. Nonproductive. She does describe pleuritic chest pain in the lower sternal region. S: Feels better this am Exam Constitutional: No acute distress, Alert, sitting in chair Psych: AAO x 3 HEENT: NCAT Neck: supple Cardio: regular rate and rhythm, +s1s2, no murmurs Resp: Exam significantly limited secondary to body habitus; has faint bibasilar crackles and decreased breath sounds at bases; increased expiratory wheezes today Abd: soft, morbidly obese, nontender non-distended Extremities: 2+ pitting edema Neuro: no focal deficits appreciated Plan Acute on chronic resp failure with hypoxia and hypercapnia 2/2 to COPD and acute diastolic CHF Transitioned to po prednisone and po lasix Maintain oxygen above 93%. Continue nebs as needed. Agree with discharge summary as above
--- NOTE | 2018-05-15 10:20 | Physician Discharge Referral ---
Home Health/Hosp Referral Info Transfer to: Home Health Attending Provider: Dr. Sim Provider in Charge Post Discharge: PCP - Diagnosis (1) Acute on chronic respiratory failure with hypoxia and hypercapnia Priority: Primary Status: Acute (2) COPD with exacerbation Priority: Primary Status: Acute (3) Acute on chronic heart failure with normal ejection fraction Priority: Primary Status: Acute (4) Anemia Priority: Primary Status: Acute (5) Atrial fibrillation Priority: Secondary Status: Chronic (6) Morbid obesity with BMI of 60.0-69.9, adult Priority: Secondary Status: Acute - Respiratory Orders Smoking Cessation: Smoking cessation has been advised. For more information, call the [place] Tobacco Quit Line at 5-147-OEYY-NOW. - Diet/Nutrition Diet/Nutrition Orders: No Added Salt (SHARON), Cardiac - Services Needed Following services are medically necessary services: Nursing, Home Health Aide, Physical Therapy - Transfer Medications Prescriptions: Omeprazole [PriLOSEC] 40 mg PO DAILY #30 cap predniSONE [PredniSONE] See Taper PO DAILY #35 tablet Home Medications: Alendronate Sodium [Fosamax] 70 mg PO WE 10/28/15 [History] Ascorbate Calcium [Vitamin C] 500 mg PO DAILY 10/28/15 [History] Cyanocobalamin (Vitamin B-12) [Vitamin B-12] 100 mcg PO DAILY 10/28/15 [History] Tiotropium [Spiriva] 2 puff PO HS 10/28/15 [History] Ferrous Sulfate [Iron] 325 mg PO DAILY 07/03/16 [History] Albuterol Sulfate [Proventil Hfa] 2 puff IH Q4H PRN 09/14/16 [History] Oxygen 3 l IH AD 10/24/16 [History] Fluticasone/Salmeterol [Advair 250-50 Diskus] 1 puff IH BID #1 blst.w.dev [Rx] Montelukast [Singulair] 10 mg PO DAILY 11/29/16 [History] Ropinirole HCl [Requip] 4 mg PO HS 11/29/16 [History] Magnesium Oxide [Mag-Ox] 400 mg PO DAILY #30 tablet 12/04/16 [Rx] Calcium Carbonate [Calcium] 600 mg PO BID 05/08/17 [History] Fluorometholone [Fml Forte] 1 drop LEFT EYE QID 05/08/17 [History] Diltiazem CD (24hr) [Cardizem CD] 120 mg PO DAILY cap.er.24h 05/21/17 [Rx] Acetaminophen/Diphenhydramine [Percogesic 325-12.5 mg Tablet] 1 - 2 tab PO HS PRN 07/19/17 [History] DiphenhydraMINE [Benadryl] 25 mg PO HS PRN capsule 07/23/17 [Rx] Cholecalciferol (D-3) [Vitamin D] 5,000 unit PO DAILY 03/14/18 [History] Lisinopril 2.5 mg PO BID 03/14/18 [History] Propafenone HCl [Propafenone HCl ER] 325 mg PO Q12H 04/03/18 [History] Clopidogrel [Plavix] 75 mg PO DAILY 30 Days #30 tablet 04/11/18 [Rx] Furosemide [Lasix] 20 mg PO HS 05/08/18 [History] Furosemide [Lasix] 40 mg PO DAILY 05/08/18 [History] Omeprazole [PriLOSEC] 40 mg PO DAILY #30 cap 05/15/18 [Rx] predniSONE [PredniSONE] See Taper PO DAILY #35 tablet 05/15/18 [Rx] Allergies/Adverse Reactions: 3 Allergy/AdvReac Type Severity Reaction Status Date / Time aspirin [ASA] Allergy Difficulty Verified 03/14/18 13:43 Breathing Penicillins Allergy Hives Verified 03/14/18 13:43 Sulfa (Sulfonamide Allergy Rash Verified 03/14/18 13:43 Antibiotics) Certification: Further, I certify that my clinical findings support that this patient is homebound (i.e. absences from home require considerable and taxing effort and are for medical reasons or restorationist services or infrequently or short duration when for other reasons) because: Homebound Reason: Leaving home requires considerable and taxing effort due to condition Attestation: My signature below is to certify that this patient is under my care and that I, or nurse practitioner, or a physician's district administrative assistant working with me, has a face-to -face encounter with this patient.
[2018-05-15 10:45] LABS: Platelet Estimate Normal (Normal)
== END 2018-05-15 11:43 | disposition home health service (06) | DRG 291 ==
LOC: EMEROOARM 03:25 → 3BNU 03:25 → SUATTDRO 14:38
PROVIDERS: ADMIT Family Medicine; ATTEND Student in an Organized Health Care Education/Training Program

== ENCOUNTER 2018-06-04 18:24 | Inpatient (IN) ==
[2018-06-04 19:30] LABS: Basophils % 0.2 %
[2018-06-04 19:31] LABS: Eosinophils # 0.1 K/mcL (0.0-0.6); Eosinophils % 3.1 %; Hematocrit 33.3 % (35.3-44.9); Hemoglobin 8.9 g/dL (11.5-15.4); Lymphocytes # 0.8 K/mcL (0.6-4.6); Lymphocytes % 18.6 %; Mean Corpuscular HGB Conc 26.7 g/dL (31.6-35.5); Mean Corpuscular Hemoglobin 23.1 pg (28.0-33.3); Mean Corpuscular Volume 86.3 fL (83.0-100.0); Mean Platelet Volume 11.3 fL (9.4-12.4); Monocytes # 0.5 K/mcL (0.0-1.3); Monocytes % 10.8 %; Neutrophils # 2.8 K/mcL (1.6-8.9); Platelet Count 170 K/mcL (140-400); Red Blood Count 3.86 M/mcL (3.82-4.97); Red Cell Distribution Width 15.2 % (11.5-14.5); Segmented Neutrophils % 66.3 %
[2018-06-04 19:37] LABS: INR 1.1; Prothrombin Time 12.1 Seconds (9.4-12.1)
[2018-06-04 19:40] LABS: Activated Partial Thrombo Time 29.3 Seconds (26.0-36.0)
[2018-06-04 19:43] LABS: BUN/Creatinine Ratio 25 (6-26); Blood Urea Nitrogen 18 mg/dL (8-23); Calcium 9.5 mg/dL (8.6-10.3); Carbon Dioxide 40 mEq/L (23-29); Chloride 98 mEq/L (98-107); Glucose 114 mg/dL (70-105); Osmolality,Calculated 303 (280-300); Sodium 145 mEq/L (136-145); Troponin I < 0.03 ng/mL (< 0.04); eGFR For Non-African Americans > 60 (> 60)
[2018-06-04 19:57] LABS: Thyroid Stimulating Hormone 2.567 mcIU/mL (0.340-5.600)
[2018-06-04 20:07] LABS: Hypochromasia Present (Not Present); Platelet Estimate Normal (Normal)
--- NOTE | 2018-06-04 20:49 | Emergency Department Note ---
Disposition Clinical Impression: Atrial fibrillation Qualifiers: Atrial fibrillation type: paroxysmal Qualified Code(s): I48.0 - Paroxysmal atrial fibrillation Disposition: Admitted As Inpatient Condition: Fair General Adult HPI - General Chief complaint: ED Arrhythmia/Palpitations Stated complaint: A-Fib Time Seen by Provider: 06/04/18 18:29 Source: patient Mode of arrival: ambulatory Limitations: no limitations Nursing Notes Reviewed: Yes Vital Signs Reviewed: Yes - History of Present Illness HPI Narrative: 67-year-old female with significant past medical history of atrial fibrillation currently on Plavix and COPD on nasal cannula oxygen at home presenting to the emergency department chief complaint of palpitations. Patient states that around 4:30 this evening she started having palpitations and felt that she was going into A. fib. Patient states she has been hospitalized multiple times for breakthrough A. fib. She states she always needs to be converted by cardiology during admission. Patient currently takes Cardizem at home. She denies any fevers, nausea, vomiting, abdominal pain or urinary symptoms. Patient states she has had a viral upper respiratory infection with some congestion and ear pressure and her son at bedside has had similar symptoms. Pain Scale: 0 - Related Data Home Medications Medication Instructions Recorded Confirmed Alendronate Sodium [Fosamax] 70 mg PO WE 10/28/15 06/04/18 Ascorbate Calcium [Vitamin C] 500 mg PO DAILY 10/28/15 06/04/18 Cyanocobalamin (Vitamin B-12) 100 mcg PO DAILY 10/28/15 06/04/18 [Vitamin B-12] Tiotropium [Spiriva] 2 puff PO HS 10/28/15 06/04/18 Ferrous Sulfate [Iron] 325 mg PO DAILY 07/03/16 06/04/18 Albuterol Sulfate [Proventil Hfa] 2 puff IH Q4H PRN 09/14/16 06/04/18 Oxygen 3 l IH AD 10/24/16 06/04/18 Montelukast [Singulair] 10 mg PO DAILY 11/29/16 06/04/18 Calcium Carbonate [Calcium] 600 mg PO BID 05/08/17 06/04/18 Acetaminophen/Diphenhydramine 1 - 2 tab PO HS PRN 07/19/17 06/04/18 [Percogesic 325-12.5 mg Tablet] Cholecalciferol (D-3) [Vitamin D] 5,000 unit PO DAILY 03/14/18 06/04/18 Lisinopril 2.5 mg PO DAILY 03/14/18 06/04/18 Propafenone HCl [Propafenone HCl 325 mg PO Q12H 04/03/18 06/04/18 ER] Furosemide [Lasix] 20 mg PO HS 05/08/18 06/04/18 Furosemide [Lasix] 40 mg PO DAILY 05/08/18 06/04/18 Ropinirole HCl [Requip Xl] 4 mg PO HS 06/04/18 06/04/18 Previous Rx's Medication Instructions Recorded Fluticasone/Salmeterol [Advair 1 puff IH BID #1 blst.w.dev 11/16/16 250-50 Diskus] Diltiazem CD (24hr) [Cardizem CD] 120 mg PO DAILY cap.er.24h 05/21/17 Clopidogrel [Plavix] 75 mg PO DAILY 30 Days #30 tablet 04/11/18 Omeprazole [PriLOSEC] 40 mg PO DAILY #30 cap 05/15/18 Allergies Allergy/AdvReac Type Severity Reaction Status Date / Time aspirin [ASA] Allergy Difficulty Verified 03/14/18 13:43 Breathing Penicillins Allergy Hives Verified 03/14/18 13:43 Sulfa (Sulfonamide Allergy Rash Verified 03/14/18 13:43 Antibiotics) All systems ED: reviewed and negative except as stated. Constitutional: Denies: fever, chills, weakness Eyes: Reports: as per HPI ENT ED: Reports: as per HPI Cardiovascular: Reports: palpitations. Denies: chest pain Respiratory: Denies: cough, dyspnea, wheezes Gastrointestinal: Denies: abdominal pain, nausea, vomiting Genitourinary: Reports: as per HPI Musculoskeletal: Reports: as per HPI Integumentary: Reports: as per HPI Neurological: Denies: weakness, numbness, paresthesias Psychiatric: Reports: as per HPI Endocrine: Reports: as per HPI Hematological/Lymphatic: Reports: as per HPI Allergic/Immunologic: Reports: as per HPI Past Medical History - Past Medical History Attestation: Yes The following information was validated with the patient. Medical history: Reports: asthma, atrial fibrillation, CHF, COPD, GERD, hypertension, migraine Surgical history: Reports: cholecystectomy, hysterectomy Psychiatric history: Reports: no psych history COLD ROLLER history: Reports: no COLD ROLLER history - Social History Smoking Status: Former smoker Smokeless Tobacco Status: No Alcohol use: Reports: none Drug use: Reports: none Physical Exam - General Limitations: no limitations General appearance: alert, in no apparent distress - Head Head exam: atraumatic, normocephalic, normal inspection - Eye Eye exam: Present: normal appearance. Absent: scleral icterus, conjunctival injection - ENT ENT exam: normal exam, mucous membranes moist - Neck Neck exam: Present: normal inspection, full ROM. Absent: tenderness, meningismus - Chest Chest inspection: Present: normal inspection, symmetric chest wall rise. Absent: tenderness, rash - Respiratory Respiratory exam: Present: normal lung sounds bilaterally. Absent: respiratory distress, wheezes - Cardiovascular Cardiovascular exam: Present: tachycardia, irregular rhythm, normal heart sounds - Abdominal Exam Abdominal exam: Present: soft, Non-Tender. Absent: distention, guarding, rebound - Extremities Exam Extremities exam: Present: normal inspection, full ROM - Neurological Exam Neurological exam: Present: alert, oriented X3 - Psychiatric Psychiatric exam: Present: normal affect, normal mood - Skin Skin exam: Present: warm, intact Course Course Narrative: 67-year-old female presenting for breakthrough atrial fibrillation. Patient denies any other symptoms. In the room she is alert and oriented 3. Her heart rate is between 130-150 in the room. She is otherwise hemodynamically stable. At this time will plan to obtain basic laboratory analysis along with an EKG and chest x-ray. We will provide the patient with oral diltiazem and IV push diltiazem. Disposition most likely admission the pending results. Patient ag mukesh with this plan. - Reevaluation(s) Reevaluation #1: Patient's laboratory analysis shows chronic anemia and chronically elevated carbon dioxide. Otherwise benign. Patient's chest x-ray unchanged from baseline. Patient responded well to IV and oral diltiazem with a heart rate of 106. Agent has remained alert and oriented 3 in the room and hemodynamically stable. At this time will plan to admit the patient for further evaluation and treatment of her atrial fibrillation. Patient agrees with this plan. I spoke with the hospitalist protection officer Dr. Flynn who agrees to accept the patient at this time. Vital Signs Temperature 98.6 F 06/04/18 18:34 Pulse Rate 119 06/04/18 18:34 Respiratory Rate 20 06/04/18 18:34 Blood Pressure 188/111 06/04/18 18:34 O2 Sat by Pulse Oximetry 97 06/04/18 18:34 Temperature 98.6 F 06/04/18 18:40 Pulse Rate 106 06/04/18 20:39 Respiratory Rate 20 06/04/18 20:39 Blood Pressure 166/80 06/04/18 20:39 O2 Sat by Pulse Oximetry 98 06/04/18 20:39 Oxygen Delivery Oxygen Delivery Nasal Cannula Medical Decision Making - Lab Data Result diagrams: 06/04/18 19:06 06/04/18 19:06 Lab Results 06/04/18 06/04/18 06/04/18 Range/Units 19:06 19:06 19:06 WBC 4.2 L (4.3-11.1) K/mcL RBC 3.86 (3.82-4.97) M/mcL Hgb 8.9 L (11.5-15.4) g/dL Hct 33.3 L (35.3-44.9) % MCV 86.3 (83.0-100.0) fL MCH 23.1 L (28.0-33.3) pg MCHC 26.7 L (31.6-35.5) g/dL RDW 15.2 H (11.5-14.5) % Plt Count 170 (140-400) K/mcL MPV 11.3 (9.4-12.4) fL Immature Gran % 1.0 (0-4) % Seg Neutrophils % 66.3 % Lymphocytes % 18.6 % Monocytes % 10.8 % Eosinophils % 3.1 % Basophils % 0.2 % Neutrophils # 2.8 (1.6-8.9) K/mcL Lymphocytes # 0.8 (0.6-4.6) K/mcL Monocytes # 0.5 (0.0-1.3) K/mcL Eosinophils # 0.1 (0.0-0.6) K/mcL Basophils # 0.0 (0.0-0.2) K/mcL Platelet Estimate Normal (Normal) Hypochromasia Present A (Not Present) PT 12.1 (9.4-12.1) Seconds INR 1.1 APTT 29.3 (26.0-36.0) Seconds Sodium 145 (136-145) mEq/L Potassium 4.0 (3.5-5.1) mEq/L Chloride 98 (98-107) mEq/L Carbon Dioxide 40 H* (23-29) mEq/L BUN 18 (8-23) mg/dL Creatinine 0.72 (0.60-1.20) mg/dL Est GFR ( Amer) > 60 (> 60) Est GFR (Non-Af Amer) > 60 (> 60) BUN/Creatinine Ratio 25 (6-26) Glucose 114 H (70-105) mg/dL Calculated Osmolality 303 H (280-300) Calcium 9.5 (8.6-10.3) mg/dL Troponin I < 0.03 (< 0.04) ng/mL TSH 2.567 (0.340-5.600) mcIU/mL - EKG Data EKG #1 EKG attestation: Yes I reviewed and interpreted this EKG. EKG results narrative: Atrial fibrillation. 133 bpm. QRS 79, QTC 424. No sign of acute ST segment elevation or ischemia. Compared to previous EKG completed on 04/03/2018 new atrial fibrillation noted Attestation Statement - Attestation Attestation: I examined this patient and my medical decision-making was reviewed with the Resident Physician. I agree with the documented findings, disposition and treatment plan as described except to the extent set forth below. Findings consistent with atrial fibrillation. History of atrial fibrillation. She was given Cardizem bolus and given an oral dose. She will be admitted for cardiac consultation. She is now rate controlled. She does have baseline oxygen needs. She is stable at time of admission.
[2018-06-05] MEDS ORDERED: Acetaminophen 325 MG TABLET PO PRN ×2 (09:00→21:00)
[2018-06-05] MEDS ORDERED: Ondansetron 4 MG/2 ML VIAL IVP PRN (09:00)
[2018-06-05] MEDS ORDERED: *HR* HYDROcodone/Acet 5/325 mg TABLET PO PRN (09:00)
[2018-06-05] MEDS ORDERED: *HR* Promethazine 25 MG/ML VIAL IVP PRN (09:00)
[2018-06-05] MEDS ORDERED: SODIUM CHLORIDE 0.9% IVC SCH (09:00)
[2018-06-05] MEDS ORDERED: Naloxone 0.4 MG/ML INJ IVP PRN (09:00)
[2018-06-05] MEDS ORDERED: DILTIAZEM IVC SCH (09:00)
[2018-06-05] MEDS ORDERED: NON-FORMULARY MEDICATION 1 EACH EACH (Acetaminophen/Diphenhydramine [Percogesic 325-12.5 M PO PRN (09:04)
[2018-06-05] MEDS ORDERED: NON-FORMULARY MEDICATION 1 EACH EACH (Alendronate Sodium [Fosamax] 70 MG) PO SCH (09:15)
--- NOTE | 2018-06-05 09:59 | Internal Med History&Physical ---
Date of Encounter: 06/05/18 Time of Encounter: 08:30 Internal Medicine - H&P: HPI Chief complaint: Shortness of breath Admitted From: Emergency Dept Plans for Post Hospital Care: Home History of present illness: Ms. Guevara is a 67 year old female with known past medical history of COPD, G.I. bleed, chronic anemia, atrial fibrillation not on any anticoagulation due to G.I. bleed in the past, chronic hypoxic respiratory failure on 5 lit oxygen dependent at home, morbidly obese patient presented emergency room yesterday complaining about palpitations and worsening shortness of breath. She does mention about cough without any expectoration. She denied any chest pain. She happened to have a fib with RVR in the ER was given IV Cardizem couple of doses however her heart rate is still sustained in 120s. When I examined the patient is morning she is still in A fib with RVR. She does complaining about worsening shortness of breath and dyspnea on exertion. Reviewed her chest x-ray which showed moderate vascular congestion. 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, heart cath no stent - Social History Smoking Status: Former smoker Smokeless Tobacco Status: No Alcohol use: none Drug use: none - Family History Sister Living Status: Hx Family Cardiac Disorders: Yes Hx Family Respiratory Disorders: Yes (copd) Mother Adopted: No Family Member Ethnicity: Non- Twin of Family Member: Yes, Fraternal Living Status: Hx Family Cardiac Disorders: Yes Hx Family Respiratory Disorders: Yes Hx Family Cancer: No Hx Family GI Disorders: No Hx Family Endocrine Disorder: No Hx Family Neuromuscular Disorders: No Hx Family Neurologic Disorders: No Hx Family HEENT Disorders: No Hx Family Autoimmune Disorders: No Father Adopted: No Family Member Ethnicity: Non- Twin of Family Member: Yes, Fraternal Living Status: Hx Family Cardiac Disorders: Yes (Afib, HTN,) Hx Family Respiratory Disorders: Yes Hx Family Cancer: No Hx Family GI Disorders: No Hx Family Endocrine Disorder: No Hx Family Neuromuscular Disorders: No Hx Family Neurologic Disorders: No Hx Family HEENT Disorders: No Hx Family Autoimmune Disorders: No Internal Medicine - H&P: Meds Alendronate Sodium [Fosamax] 70 mg PO WE 10/28/15 [History] Ascorbate Calcium [Vitamin C] 500 mg PO DAILY 10/28/15 [History] Cyanocobalamin (Vitamin B-12) [Vitamin B-12] 100 mcg PO DAILY 10/28/15 [History] Tiotropium [Spiriva] 2 puff PO HS 10/28/15 [History] Ferrous Sulfate [Iron] 325 mg PO DAILY 07/03/16 [History] Albuterol Sulfate [Proventil Hfa] 2 puff IH Q4H PRN 09/14/16 [History] Oxygen 3 l IH AD 10/24/16 [History] Fluticasone/Salmeterol [Advair 250-50 Diskus] 1 puff IH BID #1 blst.w.dev 11/16/16 [Rx] Montelukast [Singulair] 10 mg PO DAILY 11/29/16 [History] Calcium Carbonate [Calcium] 600 mg PO BID 05/08/17 [History] Diltiazem CD (24hr) [Cardizem CD] 120 mg PO DAILY cap.er.24h 05/21/17 [Rx] Acetaminophen/Diphenhydramine [Percogesic 325-12.5 mg Tablet] 1 - 2 tab PO HS PRN 07/19/17 [History] Cholecalciferol (D-3) [Vitamin D] 5,000 unit PO DAILY 03/14/18 [History] Lisinopril 2.5 mg PO DAILY 03/14/18 [History] Propafenone HCl [Propafenone HCl ER] 325 mg PO Q12H 04/03/18 [History] Clopidogrel [Plavix] 75 mg PO DAILY 30 Days #30 tablet 04/11/18 [Rx] Furosemide [Lasix] 20 mg PO HS 05/08/18 [History] Furosemide [Lasix] 40 mg PO DAILY 05/08/18 [History] Omeprazole [PriLOSEC] 40 mg PO DAILY #30 cap 05/15/18 [Rx] Ropinirole HCl [Requip Xl] 4 mg PO HS 06/04/18 [History] Allergy/AdvReac Type Severity Reaction Status Date / Time aspirin [ASA] Allergy Difficulty Verified 03/14/18 13:43 Breathing Penicillins Allergy Hives Verified 03/14/18 13:43 Sulfa (Sulfonamide Allergy Rash Verified 03/14/18 13:43 Antibiotics) All Systems PM: A 10-system review of systems was performed and is negative for pertinent findings except as documented above in the HPI. Review of systems: All the systems are reviewed everything is benign except the systems and symptoms I mentioned in the history of present illness - Constitutional Vitals: Temp Pulse Resp BP Pulse Ox 98.6 F 98 18 149/72 98 06/05/18 08:00 06/05/18 08:00 06/05/18 08:00 06/05/18 08:00 06/05/18 08:00 General appearance: Present: cooperative, mild distress, A&O X 3, answers questions appropriately Exam: See below - Head Head exam: Present: atraumatic, normal inspection - Neck Neck exam general surgery: Present: supple - Respiratory Respiratory exam: Present: decreased breath sounds, rales (Mild), wheezes (Moderate wheezing). Absent: respiratory distress, rhonchi - Cardiovascular Cardiovascular exam: Present: irregular rhythm, +S1, +S2, tachycardia. Absent: systolic murmur - GI/Abdominal GI/Abdominal exam: Present: normal bowel sounds, soft. Absent: guarding, rebound, rigid, tenderness - Extremities Exam Extremities exam: Present: pedal edema. Absent: calf tenderness, tenderness - Back Exam Back exam: Absent: CVA tenderness (L), CVA tenderness (R) - Neurological Exam Neurological exam: Present: alert, oriented X3 - Psychiatric Psychiatric exam: Present: normal affect, normal mood - Skin Skin exam: Absent: rash Internal Med - H&P Results - Labs CBC & Chem 7: 06/04/18 19:06 06/04/18 19:06 Labs: Short CBC 06/04/18 Range/Units 19:06 WBC 4.2 L (4.3-11.1) K/mcL Hgb 8.9 L (11.5-15.4) g/dL Hct 33.3 L (35.3-44.9) % Plt Count 170 (140-400) K/mcL Neutrophils # 2.8 (1.6-8.9) K/mcL BMP 06/04/18 19:06 Sodium 145 Potassium 4.0 Chloride 98 Carbon Dioxide 40 H* BUN 18 Creatinine 0.72 Glucose 114 H Calcium 9.5 Cardiac Enzymes 06/04/18 Range/Units 19:06 Troponin I < 0.03 (< 0.04) ng/mL - Impressions ITS Impressions Chest X-Ray 06/04/18 18:55 IMPRESSION: 1. Cardiomegaly with vascular congestion. D/ / Mihir Mora MD / Mihir Mora MD Interpreting Provider: Mihir Mora MD - Assessment and plan (1) Atrial fibrillation with RVR Current Visit: No Status: Acute Assessment and plan: Admit the pt into tele Does need to stay in the hospital more than 2 nights due to her complex medical problem Started on Cardizem gtt Resumed home med Rythamol.. may need to adjust the dose.. Will talk to Card not on any anti coag due to recent GI bleed however she is high risk for CVA, and now her HB @ 8.9 and had normal EGD / Colonocsocpy recently, will resume anti coag will talk to Card about this (2) Acute on chronic heart failure with normal ejection fraction Current Visit: No Status: Acute Assessment and plan: Reviewed 2D Echo from 05/23 Preserved LVEF started her on IV Lasix 40 BID cont ACEI, Statin and Plavix (3) Acute exacerbation of chronic obstructive airways disease Current Visit: No Status: Acute Assessment and plan: more of like hypoventilation syndrome however she does have moderate wheezing too so started on IV steroids cont Duoneb and O2 No need of abx (4) Morbid obesity with BMI of 60.0-69.9, adult Current Visit: No Status: Acute (5) Essential hypertension Current Visit: No Status: Chronic (6) GERD (gastroesophageal reflux disease) Current Visit: No Status: Chronic Qualifiers: Esophagitis presence: without esophagitis Qualified Code(s): K21.9 - Gastro-esophageal reflux disease without esophagitis - Time Spent With Patient Total time spent is greater than 50% in coordination of care (as documented) at patient's floor/unit and/or counseling patient:
[2018-06-05] MEDS: MethylPREDNISolone 40 MG/ML VIAL IVP SCH ×2 (10:21→17:42)
[2018-06-05] MEDS: Furosemide 40 MG/4 ML VIAL IVP SCH ×2 (10:22→17:41)
[2018-06-05] MEDS: (Propafenone Hcl [Propafenone Hcl Er] 325 MG) PO SCH ×2 (10:25→10:48)
[2018-06-05] MEDS ORDERED: 0.9 % Sodium Chloride 1,000 ML IVC SCH (11:00)
[2018-06-05] MEDS ORDERED: Budesonide/Formoterol 80/4.5 MDI IH SCH (11:43)
[2018-06-05] MEDS: Ipratropium/Albuterol Neb 3 ML IH SCH ×3 (11:44→20:01)
[2018-06-05] MEDS: Budesonide/Formoterol 80/4.5 MDI IH SCH ×2 (11:46→23:17)
--- NOTE | 2018-06-05 12:57 | Cardiology Consult Note ---
Addendum entered and electronically signed by Colt Salas CNP 06/05/18 15:11: Discussed with Dr. Mohan. Will stop Plavix. Restart Coumadin for AC given no clear source of bleeding on recent scopes. Pharmacy to dose. Continue to follow until rate controlled. Original Note: <Colt Salas - Last Filed: 06/05/18 13:16> Date of Encounter: 06/05/18 Time of Encounter: 12:56 Assessment and Plan (1) Paroxysmal atrial fibrillation Current Visit: Yes Status: Chronic Known PAF, on rhythmol 325mg (long acting) Q12 hours at home. ZOILA/DCCV 03/15/18 to SR. Now with recurrence of PAF. Also on Cardizem CD 120mg daily at home. HR 130s on presentation. Currently on cardizem gtt 2.5mg/hr. Uptitrate for HR control. 04/04/18 admitted with GI bleed and received 2 units of PRBC. Underwent GI work- up (EGD, colonoscopy) without clear source of bleeding noted. Coumadin was stopped due to continued anemia. Unable to start low dose ASA d/t allergy. On 75 mg daily of Plavix. HGB 8.9--appears stable. Given recurrence of A-Fib on Rythmol and off anticoagulation, recommend stopping rhythmol (failed) and continuing with rate control strategy for now. Suspect it will be difficult to maintain rhythm control given her lung disease and evidence of untreated FUENTES on last ZOILA/DCCV. Consider outpt follow-up with EP to discuss ablation given failed antiarrhythmic. I will discuss and review with Dr. Mohan for any further recommendations. (2) Diastolic congestive heart failure, NYHA class 3 Current Visit: No Status: Chronic Known diastolic CHF. CXR vascular congestion. BNP only mildly elevated 214. BLE wrapped. Agree with IV Lasix 40mg BID. Recommend strict I/Os, Na and fluid restriction, daily weights. Qualifiers: Congestive heart failure chronicity: chronic Qualified Code(s): I50.32 - Chronic diastolic (congestive) heart failure Discussion w patient/family: The assessment and plan as outlined above was discussed with the patient and/or family members who expressed understanding and agreement. All questions were answered. Thank you for involving us in the care of your patient. Please call with any questions. I will discuss all the above with Dr. Mohan and make changes as necessary. History of Present Illness Consult date: 06/05/18 Requesting physician: Jeanine Tyson Consult reason: A-Fib RVR Chief complaint: palpitations, dyspnea History of present illness: Ms. Guevara is a 67 year old female with a relevant past medical history of a.fib on rythmol, diastolic CHF, HTN, COPD on 5L home O2, recent GI bleed at which time Coumadin was stopped who presented to [facility] with complaints of worsening shortness of breath and palpitations that started yesterday afternoon, associated chest pressure. Found to be A-Fib RVR HR 120s. Cardiology consulted for further recs. Prior CV testing: TTE 05/09/18: Technically sub-optimal due to clinical status. Patient requested to stop the study early. Apical and subcostal views not obtained. LVEF 60-65%. Mild concentric left ventricular hypertrophy. Right ventricle was not well visualized or evaluated. Mild tricuspid regurgitation. ZOILA/DCCV 03/15/18: Successful DCCV of atrial fibrillation to normal sinus rhythm. No thrombus on ZOILA. Patient desaturated during procedure. Consider outpatient evaluation for FUENTES. 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, heart cath no stent - Social History Smoking Status: Former smoker Smokeless Tobacco Status: No Alcohol use: none Drug use: none - Family History Sister Living Status: Hx Family Cardiac Disorders: Yes Hx Family Respiratory Disorders: Yes (copd) Mother Adopted: No Family Member Ethnicity: Non- Twin of Family Member: Yes, Fraternal Living Status: Hx Family Cardiac Disorders: Yes Hx Family Respiratory Disorders: Yes Hx Family Cancer: No Hx Family GI Disorders: No Hx Family Endocrine Disorder: No Hx Family Neuromuscular Disorders: No Hx Family Neurologic Disorders: No Hx Family HEENT Disorders: No Hx Family Autoimmune Disorders: No Father Adopted: No Family Member Ethnicity: Non- Twin of Family Member: Yes, Fraternal Living Status: Hx Family Cardiac Disorders: Yes (Afib, HTN,) Hx Family Respiratory Disorders: Yes Hx Family Cancer: No Hx Family GI Disorders: No Hx Family Endocrine Disorder: No Hx Family Neuromuscular Disorders: No Hx Family Neurologic Disorders: No Hx Family HEENT Disorders: No Hx Family Autoimmune Disorders: No Medications and Allergies Alendronate Sodium [Fosamax] 70 mg PO WE 10/28/15 [History] Ascorbate Calcium [Vitamin C] 500 mg PO DAILY 10/28/15 [History] Cyanocobalamin (Vitamin B-12) [Vitamin B-12] 100 mcg PO DAILY 10/28/15 [History] Tiotropium [Spiriva] 2 puff PO HS 10/28/15 [History] Ferrous Sulfate [Iron] 325 mg PO DAILY 07/03/16 [History] Albuterol Sulfate [Proventil Hfa] 2 puff IH Q4H PRN 09/14/16 [History] Oxygen 3 l IH AD 10/24/16 [History] Fluticasone/Salmeterol [Advair 250-50 Diskus] 1 puff IH BID #1 blst.w.dev 11/16/16 [Rx] Montelukast [Singulair] 10 mg PO DAILY 11/29/16 [History] Calcium Carbonate [Calcium] 600 mg PO BID 05/08/17 [History] Diltiazem CD (24hr) [Cardizem CD] 120 mg PO DAILY cap.er.24h 05/21/17 [Rx] Acetaminophen/Diphenhydramine [Percogesic 325-12.5 mg Tablet] 1 - 2 tab PO HS PRN 07/19/17 [History] Cholecalciferol (D-3) [Vitamin D] 5,000 unit PO DAILY 03/14/18 [History] Lisinopril 2.5 mg PO DAILY 03/14/18 [History] Propafenone HCl [Propafenone HCl ER] 325 mg PO Q12H 04/03/18 [History] Clopidogrel [Plavix] 75 mg PO DAILY 30 Days #30 tablet 04/11/18 [Rx] Furosemide [Lasix] 20 mg PO HS 05/08/18 [History] Furosemide [Lasix] 40 mg PO DAILY 05/08/18 [History] Omeprazole [PriLOSEC] 40 mg PO DAILY #30 cap 05/15/18 [Rx] Ropinirole HCl [Requip Xl] 4 mg PO HS 06/04/18 [History] Allergy/AdvReac Type Severity Reaction Status Date / Time aspirin [ASA] Allergy Difficulty Verified 03/14/18 13:43 Breathing Penicillins Allergy Hives Verified 03/14/18 13:43 Sulfa (Sulfonamide Allergy Rash Verified 03/14/18 13:43 Antibiotics) All Systems Review: The remainder of the systems were reviewed and are negative - Cardiovascular Cardiovascular: as per HPI, dyspnea at rest, dyspnea on exertion, leg edema, palpitations - Respiratory Respiratory: dyspnea Physical Examination Vital Signs, Last 4 Hours Pulse Resp BP Pulse Ox 06/05/18 11:44 18 96 06/05/18 10:33 115 14 131/74 99 Vital Signs Temp Pulse Resp BP Pulse Ox 06/05/18 11:44 18 96 06/05/18 10:33 115 14 131/74 99 06/05/18 08:00 98.6 F 98 18 149/72 98 06/05/18 03:34 98.7 F 109 18 149/74 98 06/04/18 23:05 98.6 F 113 16 154/72 97 06/04/18 22:25 18 120/91 06/04/18 20:39 106 20 166/80 98 06/04/18 20:36 125 20 137/110 99 06/04/18 20:30 148 20 152/89 94 06/04/18 18:40 98.6 F 119 20 188/111 97 06/04/18 18:34 98.6 F 119 20 188/111 97 Intake and Output 06/04/18 06/05/18 06/05/18 23:59 07:59 15:59 Intake Total 0 / 0 3 / 3 Balance 0 / 0 3 / 3 Intake: IV Fluids 3 / 3 Cardizem 50 MG In 0.9 % Sodium 3 / 3 Chloride 40 ML @ 5 MG/HR 5 mls/ hr IVC .Q10H [facility] Rx#:[id number] Oral 0 / 0 Other: Weight 168.5 kg General: Conversant, No Apparent Distress HEENT: Atraumatic, Normocephaly, Mucus Membranes Moist Neck: Normal carotid pulses Cardiac: Other (irregularly irregular rhythm) Lungs: Other (diminished) Neuro: Alert and responsive, No focal deficits noted Abdomen: Soft, Non-Tender Skin: No rashes noted on visualized skin Musculoskeletal: No Chest Wall Tenderness Extremities: Other (lower extremities wrapped) Results 06/04/18 19:06 06/04/18 19:06 Lab Results 06/04/18 06/04/18 06/04/18 19:06 19:06 19:06 WBC 4.2 L Hgb 8.9 L Hct 33.3 L Plt Count 170 INR 1.1 APTT 29.3 Sodium 145 Potassium 4.0 Chloride 98 Carbon Dioxide 40 H* BUN 18 Creatinine 0.72 Glucose 114 H Calcium 9.5 Troponin I < 0.03 B-Natriuretic Peptide TSH 2.567 06/05/18 06/05/18 09:26 09:26 WBC Hgb Hct Plt Count INR APTT Sodium Potassium Chloride Carbon Dioxide BUN Creatinine Glucose Calcium Troponin I 0.03 B-Natriuretic Peptide 214 H TSH - Imaging and Cardiology Echo: report reviewed - EKG Interpretation EKG results cardiology: personally reviewed (A-Fib rate 133), other (12 hr tele AVG HR 119, A-Fib) Consult Discharge Plan - Plan Referrals: Lisbet Ray, DIRECTOR ACUTE [Primary Care Provider] - <Deon Mohan - Last Filed: 06/05/18 19:17> - Attending Attestation Patient was seen and evaluated independently by me. Findings, assessment and plan were discussed at length with patient, questions answered. Agree with nurse practitioner's/resident's documentation. Addition as follows, 67 yoCF ho HFpEF, PAF on rythmol, cardizem no A/C due to GIB on plavix, HTN, COPD on O2. P/w worse sob at the setting of recent COPD exacerbation. Found back into Afib with RVR with mild fluid overload. A: PAF on rythmol w/o A/C due to GIB, back to Afib RVR due to COPD exacerbation, duration unclear Ho GIB of unclear source P: d/c plavix, start warfarin with heparin bridging due to unclear Afib duration d/c rythmol, rate ctr with cardizem if CHF on rate ctr, outpt AED with DCCV after >3 wks A/C and COPD exacerbation resolves Deon Mohan MD, PhD Assessment and Plan Discussion w patient/family: The assessment and plan as outlined above was discussed with the patient and/or family members who expressed understanding and agreement. All questions were answered. Thank you for involving us in the care of your patient. Please call with any questions. History of Present Illness History of present illness: Ms. Paola is a 67 year old female All Systems Review: The remainder of the systems were reviewed and are negative Physical Examination Vital Signs, Last 4 Hours Pulse Resp BP Pulse Ox 06/05/18 17:09 16 92 06/05/18 15:59 143 20 119/84 95 06/05/18 15:35 120 16 190/83 99 Results 06/04/18 19:06 06/04/18 19:06 Lab Results 06/04/18 06/04/18 06/04/18 19:06 19:06 19:06 WBC 4.2 L Hgb 8.9 L Hct 33.3 L Plt Count 170 INR 1.1 APTT 29.3 Sodium 145 Potassium 4.0 Chloride 98 Carbon Dioxide 40 H* BUN 18 Creatinine 0.72 Glucose 114 H Calcium 9.5 Troponin I < 0.03 B-Natriuretic Peptide TSH 2.567 06/05/18 06/05/18 06/05/18 09:26 09:26 15:05 WBC Hgb Hct Plt Count INR APTT Sodium Potassium Chloride Carbon Dioxide BUN Creatinine Glucose Calcium Troponin I 0.03 < 0.03 B-Natriuretic Peptide 214 H TSH
[2018-06-05] MEDS ORDERED: Warfarin perPT PO PRN (18:00)
[2018-06-05] MEDS ORDERED: *HR* Warfarin 5 MG TABLET PO ONE (19:30)
[2018-06-05] MEDS ORDERED: Tiotropium 18 MCG inhalation IH SCH (21:00)
[2018-06-05] MEDS: (Ropinirole Hcl [Requip Xl] 4 MG) PO SCH (21:45)
[2018-06-05] MEDS ORDERED: Ipratropium/Albuterol Neb 3 ML IH PRN (22:07)
[2018-06-05] MEDS: ADVAIR 250/50 IH SCH (23:00)
[2018-06-06] MEDS: SPIRIVA RESPIMAT IH SCH ×2 (00:08→21:32)
[2018-06-06] MEDS: MethylPREDNISolone 40 MG/ML VIAL IVP SCH ×2 (00:49→10:09)
[2018-06-06 05:49] LABS: Basophils % 0.4 %; Hematocrit 33.5 % (35.3-44.9); Hemoglobin 9.2 g/dL (11.5-15.4); Immature Granulocytes % 3.1 % (0-4); Lymphocytes # 0.5 K/mcL (0.6-4.6); Lymphocytes % 10.8 %; Mean Corpuscular HGB Conc 27.5 g/dL (31.6-35.5); Mean Corpuscular Volume 83.8 fL (83.0-100.0); Monocytes # 0.2 K/mcL (0.0-1.3); Monocytes % 3.9 %; Neutrophils # 3.9 K/mcL (1.6-8.9); Nucleated Red Blood Cells 0.6 /100 WBC (0); Platelet Count 192 K/mcL (140-400); Segmented Neutrophils % 81.8 %
[2018-06-06 05:58] LABS: INR 1.1
[2018-06-06 06:12] LABS: BUN/Creatinine Ratio 37 (6-26); Blood Urea Nitrogen 29 mg/dL (8-23); Calcium 9.9 mg/dL (8.6-10.3); Carbon Dioxide 37 mEq/L (23-29); Chloride 95 mEq/L (98-107); Cholesterol 202 mg/dL (< 200); Glucose 251 mg/dL (70-105); Osmolality,Calculated 306 (280-300); Potassium 4.2 mEq/L (3.5-5.1); Sodium 141 mEq/L (136-145); Triglycerides 101 mg/dL (< 150); eGFR For Non-African Americans > 60 (> 60)
[2018-06-06 06:20] LABS: Platelet Estimate Normal (Normal)
[2018-06-06 06:21] LABS: Anisocytosis 1+ (Not Present)
[2018-06-06 06:23] LABS: Hypochromasia Present (Not Present)
[2018-06-06 08:55] LABS: Chol/HDL Ratio 2.5 (0-4.9); HDL Cholesterol 82 mg/dL (40-59); LDL Cholesterol,Calculated 100 mg/dL (0-99)
[2018-06-06] MEDS: Ascorbic Acid 500 MG TABLET PO SCH (10:10)
[2018-06-06] MEDS: Cholecalciferol (D-3) 1,000 UNIT TABLET PO SCH (10:10)
[2018-06-06] MEDS: *HR* Digoxin 0.5 MG/2 ML AMPUL IVP SCH ×3 (10:11→20:58)
[2018-06-06] MEDS: Furosemide 40 MG/4 ML VIAL IVP SCH ×2 (10:14→18:33)
[2018-06-06] MEDS ORDERED: D5% in Water 1,000 ML IVC PRN (11:35)
[2018-06-06] MEDS ORDERED: *HR* Dextrose 50 % in Water (Syg) 50 ML SYRINGE IVP PRN (11:35)
[2018-06-06] MEDS ORDERED: Dextrose Gel 15 GM/37.5 ML TUBE PO PRN ×2 (11:35)
[2018-06-06 11:38] LABS: ABG Base Excess 14 mEq/L (-2 to 3); ABG HCO3 41 mEq/L (21-27); ABG Oxygen Saturation 97 % (95-98); ABG PCO2 63 mmHg (35-45); ABG PH 7.42 pH Units (7.32-7.45); ABG PO2 90 mmHg (85-104); ABG TCO2 43 mEq/L (20-26)
[2018-06-06] MEDS ORDERED: *HR* Heparin 5,000 UNIT/ML VIAL IVP ONE ×2 (11:38→12:24)
[2018-06-06] MEDS ORDERED: *HR* Heparin 5,000 UNIT/ML VIAL IVP PRN ×4 (11:38→12:24)
[2018-06-06] MEDS ORDERED: Heparin 25,000 UNIT/500 ML D5W 25,000 UNIT/500 ML BAG IVC SCH (11:45)
--- NOTE | 2018-06-06 11:55 | Cardiology Progress Note ---
Date of Encounter: 06/06/18 Time of Encounter: 11:53 Assessment and Plan (1) Paroxysmal atrial fibrillation Current Visit: Yes Status: Chronic Known PAF, was on rhythmol 325mg (long acting) Q12 hours at home. ZOILA/DCCV 03/15/18 to SR. Now with recurrence of PAF. On Cardizem CD 120mg daily at home. HR 130s on presentation. Currently on cardizem gtt 20mg/hr. HR still not controlled. Avoid BB given lung disease. Discussed with Dr. Mohan. Load with IV Digoxin 0.25mg x 4 doses [id number]. 04/04/18 admitted with GI bleed and received 2 units of PRBC. Underwent GI work- up (EGD, colonoscopy) without clear source of bleeding noted. Coumadin was stopped due to continued anemia. On 75 mg daily of Plavix. HGB 8.9, appears stable. Discussed with Dr. Mohan. Since no source of bleeding found on scopes and stable HGB, recommend stopping Plavix and resuming Coumadin, dosing per pharmacy. [id number] (Age, Female, HTN). Dr. Mohan recommends heparin gtt inpt given increased CVA risk if she converts to SR. Given recurrence of A-Fib on Rythmol, recommend stopping rhythmol (failed) and continuing with rate control strategy for now. Suspect it will be difficult to maintain rhythm control given her lung disease and evidence of untreated FUENTES on last ZOILA/DCCV. Consider outpt follow-up with EP to discuss ablation or other antiarrhythmics now that AC is being resumed. Continue to follow. (2) Diastolic congestive heart failure, NYHA class 3 Current Visit: No Status: Chronic Known diastolic CHF. CXR vascular congestion. BNP only mildly elevated 214. BLE wrapped. Agree with IV Lasix 40mg BID. Recommend strict I/Os, Na and fluid restriction, daily weights. Qualifiers: Congestive heart failure chronicity: chronic Qualified Code(s): I50.32 - Chronic diastolic (congestive) heart failure Discussion w patient/family: The assessment and plan as outlined above was discussed with the patient and/or family members who expressed understanding and agreement. All questions were answered. Thank you for involving us in the care of your patient. Please call with any questions. I will discuss all the above with Dr. Mohan and make changes as necessary. Subjective Principal diagnosis: A-Fib Interval history: Remains A-Fib, HR 90s-low 100s at bedside. 12 hr tele AVG HR 117. On cardizem gtt at 20mg/hr. No acute complaints. Objective Vital Signs, Last 4 Hours Temp Pulse Resp BP Pulse Ox 06/06/18 11:08 97.9 F 106 20 157/78 99 06/06/18 08:09 98.4 F 118 20 125/85 93 Vital Signs Temp Pulse Resp BP Pulse Ox 06/06/18 11:08 97.9 F 106 20 157/78 99 06/06/18 08:09 98.4 F 118 20 125/85 93 06/06/18 03:54 98.7 F 120 24 168/85 98 06/05/18 23:33 112 20 163/73 97 06/05/18 23:01 16 91 06/05/18 21:01 98 06/05/18 20:04 16 98 06/05/18 20:00 97.7 F 147 20 160/82 95 06/05/18 17:09 16 92 06/05/18 15:59 143 20 119/84 95 06/05/18 15:35 120 16 190/83 99 06/05/18 14:30 142 14 165/73 97 06/05/18 14:22 133 20 165/73 97 06/05/18 14:15 117 14 164/74 97 06/05/18 14:00 120 14 155/87 95 Intake and Output 06/05/18 06/06/18 06/06/18 23:59 07:59 15:59 Intake Total 263.1 / 263.1 350 / 350 480 / 480 Output Total 0 / 0 400 / 400 Balance 263.1 / 263.1 -50 / -50 480 / 480 Intake: IV Fluids 23.1 / 23.1 150 / 150 Cardizem 50 MG In 0.9 % Sodium 23. / 23.1 150 / 150 Chloride 40 ML @ 5 MG/HR 5 mls/ hr IVC .Q10H [facility] Rx#:[id number] Oral 240 / 240 200 / 200 480 / 480 Output: Urine 0 / 0 400 / 400 Other: Meal Breakfast Percent of Meal Consumed 100% # Voids 3 Weight 163.1 kg Patient Weight 06/06/18 23:59 Weight 163.1 kg General: Conversant, No Apparent Distress HEENT: Atraumatic, Normocephaly, Mucus Membranes Moist Neck: No JVD, Normal carotid pulses Cardiac: Other (irregularly irregular) Lungs: Other (diminished) Neuro: Alert and responsive, No focal deficits noted Abdomen: Soft, Non-Tender Skin: No rashes noted on visualized skin Musculoskeletal: No Chest Wall Tenderness Extremities: Other (BLE wrapped) Results 06/06/18 05:15 06/06/18 05:15 Lab Results 06/05/18 06/05/18 06/06/18 15:05 20:46 05:15 WBC 4.8 Hgb 9.2 L Hct 33.5 L Plt Count 192 INR Sodium Potassium Chloride Carbon Dioxide BUN Creatinine Glucose Calcium Troponin I < 0.03 < 0.03 06/06/18 06/06/18 05:15 05:15 WBC Hgb Hct Plt Count INR 1.1 Sodium 141 Potassium 4.2 Chloride 95 L Carbon Dioxide 37 H BUN 29 H Creatinine 0.78 Glucose 251 H Calcium 9.9 Troponin I Short CBC 06/06/18 Range/Units 05:15 WBC 4.8 (4.3-11.1) K/mcL Hgb 9.2 L (11.5-15.4) g/dL Hct 33.5 L (35.3-44.9) % Plt Count 192 (140-400) K/mcL Neutrophils # 3.9 (1.6-8.9) K/mcL BMP 06/06/18 Range/Units 05:15 Sodium 141 (136-145) mEq/L Potassium 4.2 (3.5-5.1) mEq/L Chloride 95 L (98-107) mEq/L Carbon Dioxide 37 H (23-29) mEq/L BUN 29 H (8-23) mg/dL Creatinine 0.78 (0.60-1.20) mg/dL Glucose 251 H (70-105) mg/dL Calcium 9.9 (8.6-10.3) mg/dL Cardiac Enzymes 06/05/18 06/05/18 Range/Units 20:46 15:05 Troponin I < 0.03 < 0.03 (< 0.04) ng/mL Active Medications Acetaminophen (Tylenol) 650 mg PO Q6HR PRN PRN Reason: Mild Pain/Fever Stop: 12/05/18 09:01 Acetaminophen (Tylenol) 325 mg PO HS PRN PRN Reason: PAIN/SLEEP Stop: 12/05/18 21:01 Hydrocodone Bitart/Acetaminophen ([place] 5-325 Mg) 1 tab PO Q6HR PRN PRN Reason: Moderate Pain Stop: 12/05/18 09:01 Albuterol/Ipratropium (Duoneb) 3 ml IH [id number] PRN PRN Reason: Shortness Of Breath/Wheezing Stop: 12/05/18 12:01 Ascorbic Acid (Vitamin C) 500 mg PO DAILY TIM Stop: 12/06/18 09:01 Last Admin: 06/06/18 10:10 Dose: 500 mg Calcium Carbonate (Tums) 500 mg PO BID TIM Stop: 12/05/18 21:01 Last Admin: 06/06/18 10:09 Dose: 500 mg Dextrose/Water (Dextrose 50% (Syg)) 25 ml IVP AD PRN PRN Reason: Hypoglycemia Stop: 12/06/18 11:36 Digoxin (Lanoxin) 0.25 mg IVP Q6H TIM Stop: 06/07/18 03:01 Last Admin: 06/06/18 10:11 Dose: 0.25 mg Diphenhydramine HCl (Benadryl) 12.5 mg PO HS PRN PRN Reason: PAIN/SLEEP Stop: 12/05/18 21:01 Ferrous Sulfate (Ferrous Sulfate) 325 mg PO DAILY TIM Stop: 12/06/18 09:01 Last Admin: 06/06/18 10:10 Dose: 325 mg Furosemide (Lasix) 40 mg IVP BIDDIURETIC TIM Stop: 12/05/18 09:31 Last Admin: 06/06/18 10:14 Dose: 40 mg Glucagon (Glucagen) 1 mg IM ONCE PRN PRN Reason: Hypoglycemia Stop: 12/06/18 11:36 Glucose (Gluctose) 15 gm PO ONCE PRN PRN Reason: Hypoglycemia Stop: 12/06/18 11:36 Glucose (Gluctose) 30 gm PO ONCE PRN PRN Reason: Hypoglycemia Stop: 12/06/18 11:36 Sodium Chloride (0.9 % Sodium Chloride) 1,000 mls @ 20 mls/hr IVC .Q24H TIM Stop: 12/05/18 11:01 Last Admin: 06/05/18 11:52 Dose: 20 mls/hr Diltiazem HCl 125 mg/ Sodium (Chloride) 125 mls @ 5 mls/hr IVC .Q24H [facility]; Protocol Stop: 12/05/18 09:16 Last Admin: 06/06/18 05:20 Dose: 20 mg/hr, 20 mls/hr Dextrose (Dextrose 5%) 1,000 mls @ 100 mls/hr IVC .Q10H PRN PRN Reason: HYPOGLYCEMIA Stop: 12/06/18 11:36 Insulin Detemir (Levemir) 5 unit SQ HS [facility] Stop: 12/06/18 21:01 Insulin Human Lispro (Humalog) 4 units SQ TIDWM TIM Stop: 12/06/18 12:01 Insulin Human Lispro (Humalog) 0 units SQ TIDAC [facility]; Protocol Stop: 12/06/18 16:31 Lisinopril (Zestril) 2.5 mg PO DAILY [facility] Stop: 12/06/18 09:01 Last Admin: 06/06/18 10:10 Dose: 2.5 mg Methylprednisolone (Solu-Medrol) 40 mg IVP Q8HR [facility] Stop: 12/05/18 09:11 Last Admin: 06/06/18 10:09 Dose: 40 mg Montelukast Sodium (Singulair) 10 mg PO DAILY TIM Stop: 12/06/18 09:01 Last Admin: 06/06/18 10:10 Dose: 10 mg Naloxone HCl (Narcan) 0.4 mg IVP Q2MIN PRN PRN Reason: SEE COMMENTS Stop: 12/05/18 09:01 Omeprazole (Prilosec) 40 mg PO DAILY [facility] Stop: 12/06/18 09:01 Last Admin: 06/06/18 10:10 Dose: 40 mg Ondansetron HCl (Zofran) 4 mg IVP Q8HR PRN PRN Reason: Nausea And Vomiting Stop: 12/05/18 09:01 Pharmacy Profile Note (Patient Taking Own Medication) 0 each PO DAILY [facility] Stop: 12/06/18 09:01 Pharmacy Profile Note (Patient Taking Own Medication) 0 each PO HS [facility] Stop: 12/05/18 21:01 Last Admin: 06/05/18 21:45 Dose: Not Given Pharmacy Profile Note (Patient Taking Own Medication) 1 each IH BIDR [facility] Stop: 12/05/18 10:01 Last Admin: 06/05/18 23:00 Dose: 1 each Pharmacy Profile Note (Patient Taking Own Medication) 2 each IH HS TIM Stop: 12/05/18 21:01 Last Admin: 06/06/18 00:08 Dose: 2 each Promethazine HCl (Phenergan) 12.5 mg IVP Q6HR PRN PRN Reason: Nausea And Vomiting Stop: 12/05/18 09:01 Vitamin D (Vitamin D) 1,000 unit PO DAILY TIM Stop: 12/06/18 09:01 Last Admin: 06/06/18 10:10 Dose: 1,000 unit Warfarin Sodium (Coumadin Perpt) 1 each PO DAILY@1800 PRN PRN Reason: SEE COMMENTS Stop: 12/05/18 18:01 - EKG Interpretation EKG results cardiology: other (12 hr tele AVG HR 117, A-Fib) Consult Discharge Plan - Plan Referrals: Lisbet Ray, [employer] [Primary Care Provider] -
--- NOTE | 2018-06-06 12:02 | Internal Med Progress Note ---
Hospitalist Progress Note - Encounter Date of Encounter: 06/06/18 Time of Encounter: 11:59 - Subjective Interval History: Patient seen and evaluated at bedside. reports that her breathing has improved but reports mild shortness of breath when she gets up to use the bedside commode. Denies chest pain, nausea, vomiting or lightheadedness. Continue to be on a cardizem drip - Exam Vitals: Temp Pulse Resp BP Pulse Ox 97.9 F 106 20 157/78 99 06/06/18 11:08 06/06/18 11:08 06/06/18 11:08 06/06/18 11:08 06/06/18 11:08 Exam: Vitals: Reviewed General: Morbidly obese, in no acute distress. Skin: Warm and supple. HEENT: Moist mucous membranes. No conjunctivae pallor. Neck: No lymphadenopathy. No JVD. No carotid bruits. No palpable thyroid. Chest: Diminished thoracic expansion. No wheezes, rales or rhonchi. Reduced breath sounds bilaterally. Heart: irregularly irregular, Normal S1 & S2. No rubs or murmurs. Abdomen: Obese, Non-distended, soft and non-tender to palpation. Extremities: +2 edema in the lower extr b/l. No calf tenderness. Normal distal pulses. Neurological: Awake, alert and oriented to person, place and time. No focal deficits. Psych: Affect appropriate. - Assessment and Plan (1) Atrial fibrillation with RVR Current Visit: No Status: Acute Assessment and Plan: Heart Rate fluctuating from 110-130s. Plan Cardiology consulted recommended to re-start patient on AC started on Warfarin due to high CHADSVASC score will start Heparin drip as a bridge until INR is therapeutic On a Cardizem drip Patient's states that they would like to have a cardioversion or ablation done. Will discuss with cardiology about concrete vibrator operator consultation for evaluation. On digoxin 0.25mg/IV Q6HR PRN (2) Acute exacerbation of chronic obstructive airways disease Current Visit: No Status: Acute Assessment and Plan: chest is clear to auscultation. Patient in no respiratory distress Plan Decrease solu-medrol to 40mg/IV daily continue Duo-nebs Q4RT scheduled on singular, spiriva and advir continue O2 by nasal cannula, titrate for O2Sat >92% ABG (3) Essential hypertension Current Visit: No Status: Chronic Assessment and Plan: BP well controlled. Patient on a cardizem drip due to A.fib on furosemide 40mg/IV BID continue lisinopril 2.5mg/PO daily (4) Acute on chronic heart failure with normal ejection fraction Current Visit: No Status: Acute Assessment and Plan: Plan: continue gentle IV diruresis with furosemide 40mg/IV BID strict intake and output water restriction to 1.5 litters a day. daily weight 2 gram sodium diet will continue to follow cardiology recommendations on low dose lisinopril 2.5mg/PO daily (5) Morbid obesity with BMI of 60.0-69.9, adult Current Visit: No Status: Chronic (6) GERD (gastroesophageal reflux disease) Current Visit: No Status: Chronic Assessment and Plan: Continue omeprazole 40 mg by mouth daily (7) Hyperglycemia Current Visit: Yes Status: Acute Assessment and Plan: Possible due to high dose steroids Plan A1c started on low dose levemir 5 units HS and lispro sliding scale goal serum blood sugar <180 (8) Anemia Current Visit: No Status: Chronic Assessment and Plan: With a recent Hx of Gi bleed with a negative GI work up. Plan will monitor closely as patient has been started on a Heparin drip due to A.fib with RvR and high risk for CVA F/U am CBC continue ferrous sulfate 325mg/PO BID. DVT Prophylaxis: On a heparin drip due to A.fib - Summary of Assessment and Plan Summary of Assessment and Plan: patient to remain in the hospital due to A.fib with RvR on a Cardizem and heparin drip. - Time Spent with Patient Total time spent is greater than 50% in coordination of care (as documented) at patient's floor/unit and/or counseling patient: Greater than 35 minutes (40) Plan of Care Discussed with: patient (family and the nurse.) Internal Medicine: Result - Labs CBC & Chem 7: 06/06/18 05:15 06/06/18 05:15 Labs: Short CBC 06/06/18 Range/Units 05:15 WBC 4.8 (4.3-11.1) K/mcL Hgb 9.2 L (11.5-15.4) g/dL Hct 33.5 L (35.3-44.9) % Plt Count 192 (140-400) K/mcL Neutrophils # 3.9 (1.6-8.9) K/mcL BMP 06/06/18 05:15 Sodium 141 Potassium 4.2 Chloride 95 L Carbon Dioxide 37 H BUN 29 H Creatinine 0.78 Glucose 251 H Calcium 9.9 Cardiac Enzymes 06/05/18 06/05/18 Range/Units 15:05 20:46 Troponin I < 0.03 < 0.03 (< 0.04) ng/mL - ABG Interpretation ABG results: ABG ABG pH 7.42 pH Units (7.32-7.45) 06/06/18 11:35 ABG pCO2 63 mmHg (35-45) H 06/06/18 11:35 ABG pO2 90 mmHg (85-104) 06/06/18 11:35 ABG O2 Saturation 97 % (95-98) 06/06/18 11:35 PT/INR, D-dimer PT 12.0 Seconds (9.4-12.1) 06/06/18 05:15 Consult Discharge Plan - Plan Referrals: Lisbet Ray, VENETIAN BLIND MAKER [Primary Care Provider] - (6) GERD (gastroesophageal reflux disease) Qualifiers: Esophagitis presence: without esophagitis Qualified Code(s): K21.9 - Gastro- esophageal reflux disease without esophagitis (8) Anemia Qualifiers: Anemia type: unspecified type Qualified Code(s): D64.9 - Anemia, unspecified
[2018-06-06 12:29] LABS: Mean Corpuscular Volume 83.3 fL (83.0-100.0)
[2018-06-06 12:30] LABS: Hematocrit 33.4 % (35.3-44.9); Hemoglobin 9.4 g/dL (11.5-15.4); Mean Corpuscular HGB Conc 28.1 g/dL (31.6-35.5); Mean Corpuscular Hemoglobin 23.4 pg (28.0-33.3); Mean Platelet Volume 11.4 fL (9.4-12.4); Platelet Count 220 K/mcL (140-400); Red Blood Count 4.01 M/mcL (3.82-4.97); Red Cell Distribution Width 15.4 % (11.5-14.5)
[2018-06-06 12:38] LABS: Heparin anti-factor XA UFH 0.07 IU/mL (0.30-0.70)
[2018-06-06 12:39] LABS: INR 1.1; Prothrombin Time 12.1 Seconds (9.4-12.1)
[2018-06-06] MEDS: Insulin LISPRO 300 UNITS/3 ML VIAL SQ SCH ×3 (14:34→17:52)
[2018-06-06] MEDS: Heparin 25,000 UNIT/500 ML D5W 25,000 UNIT/500 ML BAG IVC SCH (14:36)
[2018-06-06] MEDS: (Cyanocobalamin (Vitamin B-12) [Vitamin B-12] 100 MCG PO SCH (15:43)
[2018-06-06] MEDS ORDERED: *HR* Warfarin 7.5 MG TABLET PO ONE (18:00)
[2018-06-06] MEDS: (Ropinirole Hcl [Requip Xl] 4 MG) PO SCH (20:59)
[2018-06-06] MEDS ORDERED: Insulin DETEMIR 100 UNIT/ML X5UNITS SQ SCH (21:00)
--- NOTE | 2018-06-06 21:26 | Electrocardiograph Report ---
[address] [place] [address] Test Date: 2018-06-04 Pat Name: Alyssa Guevara Department: EXAM3 Room: 2NE25 Gender: F Wrapper Operator: : [id number] Requested By: Sheyla Oro Order Number: [id number] Reading MD: Taniya Cedillo Measurements Intervals [place] Rate: 133 P: VA: QRS: 75 QRSD: 79 T: -1 QT: 285 QTc: 424 Interpretive Statements Atrial fibrillation Anteroseptal infarct, old Borderline repolarization abnormality Baseline wander Electronically Signed On 06-06-2018 21:25:04 EDT by Tainya Cedillo
[2018-06-06] MEDS: ADVAIR 250/50 IH SCH (21:32)
[2018-06-07] MEDS: *HR* Digoxin 0.5 MG/2 ML AMPUL IVP SCH (03:22)
[2018-06-07] MEDS: Heparin 25,000 UNIT/500 ML D5W 25,000 UNIT/500 ML BAG IVC SCH ×2 (03:30→22:25)
[2018-06-07 07:11] LABS: INR 1.1; Prothrombin Time 12.5 Seconds (9.4-12.1)
[2018-06-07] MEDS: ADVAIR 250/50 IH SCH ×2 (07:30→20:16)
[2018-06-07 07:51] LABS: Estimated Average Glucose 137 mg/dl; Hemoglobin A1C 6.4 %
[2018-06-07] MEDS ORDERED: MethylPREDNISolone 40 MG/ML VIAL IVP SCH (09:00)
--- NOTE | 2018-06-07 09:58 | Cardiology Progress Note ---
Date of Encounter: 06/07/18 Time of Encounter: 09:54 Assessment and Plan (1) Paroxysmal atrial fibrillation Current Visit: Yes Status: Chronic Known PAF, was on rhythmol 325mg Q12 hours at home. ZOILA/DCCV 03/15/18 to SR. Now with recurrence of PAF. HR 130s on presentation. Currently on cardizem gtt 12.5mg/hr. Avoid BB given lung disease. Loaded with IV Digoxin 0.25mg x 4 doses [id number] yesterday. 12 hr tele AVG HR 91. HR 90s-low 100s at bedside. Transition to PO Cardizem CD 300mg daily (increase PO dose since still mildly tachycardic) and PO Digoxin 125mcg daily. 04/04/18 admitted with GI bleed. GI work-up (EGD, colonoscopy) without clear source of bleeding noted. Coumadin was stopped. HGB stable. Discussed with Dr. Mohan. Since no source of bleeding found and stable HGB, recommend stopping Plavix and resuming Coumadin, dosing per pharmacy. Recommend goal INR at lower end of therapeutic range of 2. [id number] 3 (Age, Female, HTN). Dr. Mohan recommended heparin gtt inpt given increased CVA risk if she converts to SR. Given recurrence of A-Fib on Rythmol, recommend stopping rhythmol (failed) and continuing with rate control strategy for now. Outpt follow-up with EP to discuss ablation or other antiarrhythmics now that AC is being resumed. Continue to follow until rate controlled. Will not warrant bridging at d/c. (2) Diastolic congestive heart failure, NYHA class 3 Current Visit: No Status: Chronic Known diastolic CHF. CXR vascular congestion. BNP only mildly elevated 214. BLE wrapped. Agree with IV Lasix 40mg BID. Recommend strict I/Os, Na and fluid restriction, daily weights. Qualifiers: Congestive heart failure chronicity: chronic Qualified Code(s): I50.32 - Chronic diastolic (congestive) heart failure Discussion w patient/family: The assessment and plan as outlined above was discussed with the patient and/or family members who expressed understanding and agreement. All questions were answered. Thank you for involving us in the care of your patient. Please call with any questions. I will discuss all the above with Dr. Bright and make changes as necessary. Subjective Principal diagnosis: A-Fib Interval history: Remains A-Fib, HR 90s-low 100s at bedside. 12 hr tele AVG HR 91, A-Fib. On Card izem gtt at 12.5mg/hr. Loaded with IV digoxin yesterday--4 doses of 0.25mg [id number]. Reports being able to tell she is in A-Fib by "hearing her heart beat". Denies chest pain or worsening dyspnea. Objective Vital Signs, Last 4 Hours Temp Pulse Resp BP Pulse Ox 06/07/18 08:38 97.6 F 91 149/65 98 06/07/18 07:31 18 97 Vital Signs Temp Pulse Resp BP Pulse Ox 06/07/18 08:38 97.6 F 91 149/65 98 06/07/18 07:31 18 97 06/07/18 04:21 97.2 F L 87 22 182/73 98 06/06/18 21:33 21 93 06/06/18 19:00 98.7 F 119 24 145/96 94 06/06/18 15:15 98.0 F 128 18 144/94 99 06/06/18 12:10 97.9 F 60 18 117/49 97 06/06/18 11:08 97.9 F 106 20 157/78 99 Intake and Output 06/06/18 06/07/18 06/07/18 23:59 07:59 15:59 Intake Total 0 / 0 750.0 / 750.0 480 / 480 Output Total 1800 / 1800 400 / 400 500 / 500 Balance -1800 / -1800 350.0 / 350.0 -20 / -20 Intake: IV Fluids 750.0 / 750.0 Cardizem 125 MG In 0.9 % Sodium 125.0 / 125.0 Chloride 100 ML @ 5 MG/HR 5 mls/hr IVC .Q24H TIM Rx#: [id number] Heparin 25,000 UNIT/500 ML D5W 500 / 500 25,000 unit In 500 ml @ 14 UNIT /KG/HR 45.668 mls/hr IVC . [id number] TIM Rx#:[id number] Oral 0 / 0 0 / 0 480 / 480 Output: Urine 1800 / 1800 400 / 400 500 / 500 Other: Meal Breakfast Percent of Meal Consumed 100% Weight 163.8 kg Patient Weight 06/07/18 23:59 Weight 163.8 kg General: Conversant, No Apparent Distress HEENT: Atraumatic, Normocephaly, Mucus Membranes Moist Neck: Normal carotid pulses Cardiac: Other (irregularly irregular) Lungs: Other (diminished) Neuro: Alert and responsive, No focal deficits noted Abdomen: Soft, Non-Tender Skin: No rashes noted on visualized skin Musculoskeletal: No Chest Wall Tenderness Extremities: No Clubbing, No Cyanosis, No Edema, Normal Pulses Results 06/06/18 12:12 06/06/18 05:15 Lab Results 06/06/18 06/06/18 06/07/18 12:12 12:12 04:00 WBC 7.0 Hgb 9.4 L Hct 33.4 L Plt Count 220 INR 1.1 1.1 Short CBC 06/06/18 Range/Units 12:12 WBC 7.0 (4.3-11.1) K/mcL Hgb 9.4 L (11.5-15.4) g/dL Hct 33.4 L (35.3-44.9) % Plt Count 220 (140-400) K/mcL Active Medications Acetaminophen (Tylenol) 650 mg PO Q6HR PRN PRN Reason: Mild Pain/Fever Stop: 12/05/18 09:01 Acetaminophen (Tylenol) 325 mg PO HS PRN PRN Reason: PAIN/SLEEP Stop: 12/05/18 21:01 Hydrocodone Bitart/Acetaminophen ([place] 5-325 Mg) 1 tab PO Q6HR PRN PRN Reason: Moderate Pain Stop: 12/05/18 09:01 Albuterol/Ipratropium (Duoneb) 3 ml IH [id number] PRN PRN Reason: Shortness Of Breath/Wheezing Stop: 12/05/18 12:01 Ascorbic Acid (Vitamin C) 500 mg PO DAILY [facility] Stop: 12/06/18 09:01 Last Admin: 06/06/18 10:10 Dose: 500 mg Calcium Carbonate (Tums) 500 mg PO BID TIM Stop: 12/05/18 21:01 Last Admin: 06/06/18 20:59 Dose: 500 mg Dextrose/Water (Dextrose 50% (Syg)) 25 ml IVP AD PRN PRN Reason: Hypoglycemia Stop: 12/06/18 11:36 Digoxin (Lanoxin) 0.125 mg PO DAILY [facility] Stop: 12/07/18 10:01 Diltiazem HCl (Cardizem Cd) 300 mg PO DAILY TIM Stop: 12/07/18 10:01 Diphenhydramine HCl (Benadryl) 12.5 mg PO HS PRN PRN Reason: PAIN/SLEEP Stop: 12/05/18 21:01 Ferrous Sulfate (Ferrous Sulfate) 325 mg PO DAILY TIM Stop: 12/06/18 09:01 Last Admin: 06/06/18 10:10 Dose: 325 mg Furosemide (Lasix) 40 mg IVP BIDDIURETIC TIM Stop: 12/05/18 09:31 Last Admin: 06/06/18 18:33 Dose: 40 mg Glucagon (Glucagen) 1 mg IM ONCE PRN PRN Reason: Hypoglycemia Stop: 12/06/18 11:36 Glucose (Gluctose) 15 gm PO ONCE PRN PRN Reason: Hypoglycemia Stop: 12/06/18 11:36 Glucose (Gluctose) 30 gm PO ONCE PRN PRN Reason: Hypoglycemia Stop: 12/06/18 11:36 Heparin Sodium (Porcine) (Heparin) 9,000 unit IVP Q6HR PRN PRN Reason: SEE COMMENTS Stop: 12/06/18 12:25 Heparin Sodium (Porcine) (Heparin) 4,500 unit IVP Q6H PRN PRN Reason: SEE COMMENTS Stop: 12/06/18 12:25 Dextrose (Dextrose 5%) 1,000 mls @ 100 mls/hr IVC .Q10H PRN PRN Reason: HYPOGLYCEMIA Stop: 12/06/18 11:36 Heparin Sodium/Dextrose (Heparin 25,000 Unit/500 Ml D5w) 25,000 unit in 500 mls @ 45.668 mls/hr IVC .[id number] [facility]; Protocol Stop: 12/06/18 12:31 Last Admin: 06/07/18 03:30 Dose: 11 unit/kg/hr, 35.882 mls/hr Diltiazem HCl 125 mg/ Sodium (Chloride) 125 mls @ 5 mls/hr IVC .Q24H TIM; Prot ocol Stop: 12/06/18 22:16 Last Admin: 06/07/18 06:35 Dose: 12.5 mg/hr, 12.5 mls/hr Insulin Detemir (Levemir) 5 unit SQ HS TIM Stop: 12/06/18 21:01 Last Admin: 06/06/18 21:00 Dose: Not Given Insulin Human Lispro (Humalog) 4 units SQ TIDWM [facility] Stop: 12/06/18 12:01 Last Admin: 06/06/18 17:52 Dose: Not Given Insulin Human Lispro (Humalog) 0 units SQ TIDAC [facility]; Protocol Stop: 12/06/18 16:31 Last Admin: 06/06/18 17:52 Dose: Not Given Lisinopril (Zestril) 2.5 mg PO DAILY [facility] Stop: 12/06/18 09:01 Last Admin: 06/06/18 10:10 Dose: 2.5 mg Methylprednisolone (Solu-Medrol) 40 mg IVP DAILY [facility] Stop: 12/07/18 09:01 Montelukast Sodium (Singulair) 10 mg PO DAILY [facility] Stop: 12/06/18 09:01 Last Admin: 06/06/18 10:10 Dose: 10 mg Naloxone HCl (Narcan) 0.4 mg IVP Q2MIN PRN PRN Reason: SEE COMMENTS Stop: 12/05/18 09:01 Omeprazole (Prilosec) 40 mg PO DAILY [facility] Stop: 12/06/18 09:01 Last Admin: 06/06/18 10:10 Dose: 40 mg Ondansetron HCl (Zofran) 4 mg IVP Q8HR PRN PRN Reason: Nausea And Vomiting Stop: 12/05/18 09:01 Pharmacy Profile Note (Patient Taking Own Medication) 0 each PO DAILY [facility] Stop: 12/06/18 09:01 Last Admin: 06/06/18 15:43 Dose: Not Given Pharmacy Profile Note (Patient Taking Own Medication) 0 each PO HS [facility] Stop: 12/05/18 21:01 Last Admin: 06/06/18 20:59 Dose: 1 each Pharmacy Profile Note (Patient Taking Own Medication) 1 each IH BIDR [facility] Stop: 12/05/18 10:01 Last Admin: 06/07/18 07:30 Dose: 1 each Pharmacy Profile Note (Patient Taking Own Medication) 2 each IH HS [facility] Stop: 12/05/18 21:01 Last Admin: 06/06/18 21:32 Dose: 2 each Promethazine HCl (Phenergan) 12.5 mg IVP Q6HR PRN PRN Reason: Nausea And Vomiting Stop: 12/05/18 09:01 Vitamin D (Vitamin D) 1,000 unit PO DAILY TIM Stop: 12/06/18 09:01 Last Admin: 06/06/18 10:10 Dose: 1,000 unit Warfarin Sodium (Coumadin Perpt) 1 each PO DAILY@1800 PRN PRN Reason: SEE COMMENTS Stop: 12/05/18 18:01 - EKG Interpretation EKG results cardiology: other (12 hr tele AVG HR 91, A-Fib) Consult Discharge Plan - Plan Referrals: Lisbet Ray, GREEN JOBS TRAINER [Primary Care Provider] -
[2018-06-07] MEDS ORDERED: Diltiazem CD (24hr) 300 MG CAPSULE PO SCH (10:00)
[2018-06-07] MEDS: Cholecalciferol (D-3) 1,000 UNIT TABLET PO SCH (11:43)
[2018-06-07] MEDS: Ascorbic Acid 500 MG TABLET PO SCH (11:44)
[2018-06-07] MEDS: Furosemide 40 MG/4 ML VIAL IVP SCH ×2 (11:45→18:18)
[2018-06-07] MEDS: Insulin LISPRO 300 UNITS/3 ML VIAL SQ SCH ×6 (11:53→18:14)
[2018-06-07] MEDS: (Cyanocobalamin (Vitamin B-12) [Vitamin B-12] 100 MCG PO SCH (11:57)
[2018-06-07] MEDS: *HR* Digoxin 0.125 MG TABLET PO SCH (12:47)
--- NOTE | 2018-06-07 13:12 | Internal Med Progress Note ---
Hospitalist Progress Note - Encounter Date of Encounter: 06/07/18 Time of Encounter: 13:09 - Subjective Interval History: Evaluated at bedside. Patient reports feeling better but reports that when she gets up to use the restroom her HR goes to 145s. Denies palpitation, lightheadedness, shortness of breath or chest pain. - Exam Vitals: Temp Pulse Resp BP Pulse Ox 97.7 F 91 12 151/82 96 06/07/18 12:25 06/07/18 12:25 06/07/18 12:25 06/07/18 12:25 06/07/18 12:25 Exam: Vitals: Reviewed General: Morbidly obese, in no acute distress. Skin: Warm and supple. Neck: JVD unable to be access due to short neck. No carotid bruits. No palpable thyroid. Chest: Diminished thoracic expansion. No wheezes, rales or rhonchi. Reduced breath sounds bilaterally. Heart: irregularly irregular, Normal S1 & S2. No rubs or murmurs. Abdomen: Obese, Non-distended, soft and non-tender to palpation. NABS in all 4 quadrants Extremities: +2 edema in the lower extr b/l. Normal distal pulses. Neurological: Awake, alert and oriented x4. CN II-XII intact. Psych: Affect appropriate. - Assessment and Plan (1) Atrial fibrillation with RVR Current Visit: No Status: Acute Assessment and Plan: Rate not controlled. Plan continue cardizem drip started on cardizem 300mg/PO daily On a Heparin drip as a bridge until INR is therapeutic On warfarin 5mg/PO daily cardiology recommended outpatient EP follow up cardiology inputs appreciated On digoxin 0.125mg/PO daily (2) Acute exacerbation of chronic obstructive airways disease Current Visit: No Status: Resolved Assessment and Plan: chest is cleared to auscultation Plan Continue DuoNebs Q4RT PRN D/C Solu-medrol start prednisone 20mg/PO daily singular 10mg/po daily (3) Essential hypertension Current Visit: No Status: Chronic Assessment and Plan: BP well controlled. Plan Continue Cardizem 300 mg by mouth daily, furosemide 40 mg IV twice a day. And lisinopril 2.5 mg daily. (4) Morbid obesity with BMI of 60.0-69.9, adult Current Visit: No Status: Chronic (5) GERD (gastroesophageal reflux disease) Current Visit: No Status: Chronic Assessment and Plan: Continue omeprazole 40 mg by mouth daily (6) Anemia Current Visit: No Status: Chronic Assessment and Plan: H&H has remained stable. We will continue close monitoring. As patient has a history of GI blee. On a heparin drip. (7) Congestive heart failure Current Visit: No Status: Chronic Assessment and Plan: 2+ edema in the lower extremity. Clear chest to auscultation Plan: To continue gentle IV diruresis with furosemide 40mg/IV twice a day strict intake and output water restriction to 1.5 litters a day. daily weight 2 gram sodium diet will continue to follow cardiology recommendations Lisinopril 2.5 mg by mouth daily. (8) Prediabetes Current Visit: Yes Status: Acute Assessment and Plan: Blood sugars suboptimally controlled. Possible due to high dose of steroid Plan Increase Levemir to 10 units twice a day Continue lispro 4 units before meals and lispro high dose sliding scale. Carb controlled diet DVT Prophylaxis: Patient on heparin drip - Summary of Assessment and Plan Summary of Assessment and Plan: Patient remains in A. fib and RVR on a Cardizem drip. - Time Spent with Patient Total time spent is greater than 50% in coordination of care (as documented) at patient's floor/unit and/or counseling patient: Greater than 35 minutes (42) Plan of Care Discussed with: patient (Patient's hospital and the nurse.) Internal Medicine: Result - Labs CBC & Chem 7: 06/06/18 12:12 06/06/18 05:15 - ABG Interpretation ABG results: ABG ABG pH 7.42 pH Units (7.32-7.45) 06/06/18 11:35 ABG pCO2 63 mmHg (35-45) H 06/06/18 11:35 ABG pO2 90 mmHg (85-104) 06/06/18 11:35 ABG O2 Saturation 97 % (95-98) 06/06/18 11:35 PT/INR, D-dimer PT 12.5 Seconds (9.4-12.1) H 06/07/18 04:00 Consult Discharge Plan - Plan Referrals: Lisbet Ray, PRINCIPAL PLANNER [Primary Care Provider] - (5) GERD (gastroesophageal reflux disease) Qualifiers: Esophagitis presence: without esophagitis Qualified Code(s): K21.9 - Gastro- esophageal reflux disease without esophagitis (6) Anemia Qualifiers: Anemia type: unspecified type Qualified Code(s): D64.9 - Anemia, unspecified (7) Congestive heart failure Qualifiers: Heart failure type: diastolic Heart failure chronicity: chronic Qualified Code(s): I50.32 - Chronic diastolic (congestive) heart failure
[2018-06-07] MEDS ORDERED: Warfarin perPT PO PRN (18:00)
[2018-06-07] MEDS ORDERED: *HR* Warfarin 7.5 MG TABLET PO ONE (18:00)
[2018-06-07] MEDS: SPIRIVA RESPIMAT IH SCH (20:16)
[2018-06-07] MEDS ORDERED: Insulin DETEMIR 100 UNIT/ML X5UNITS SQ SCH (21:00)
[2018-06-07] MEDS: (Ropinirole Hcl [Requip Xl] 4 MG) PO SCH (22:01)
[2018-06-08 05:23] LABS: Basophils % 0.3 %; Hematocrit 32.7 % (35.3-44.9); Hemoglobin 9.2 g/dL (11.5-15.4); Immature Granulocytes % 1.9 % (0-4); Lymphocytes # 0.6 K/mcL (0.6-4.6); Lymphocytes % 7.8 %; Mean Corpuscular HGB Conc 28.1 g/dL (31.6-35.5); Mean Corpuscular Hemoglobin 23.5 pg (28.0-33.3); Mean Corpuscular Volume 83.6 fL (83.0-100.0); Monocytes # 0.9 K/mcL (0.0-1.3); Monocytes % 10.7 %; Neutrophils # 6.3 K/mcL (1.6-8.9); Platelet Count 216 K/mcL (140-400); Red Blood Count 3.91 M/mcL (3.82-4.97); Red Cell Distribution Width 15.6 % (11.5-14.5); Segmented Neutrophils % 79.3 %
[2018-06-08 05:34] LABS: INR 1.1; Prothrombin Time 12.9 Seconds (9.4-12.1)
[2018-06-08 05:43] LABS: Hypochromasia Present (Not Present); Platelet Estimate Normal (Normal)
[2018-06-08 05:45] LABS: BUN/Creatinine Ratio 47 (6-26); Blood Urea Nitrogen 40 mg/dL (8-23); Calcium 9.4 mg/dL (8.6-10.3); Carbon Dioxide 38 mEq/L (23-29); Chloride 94 mEq/L (98-107); Glucose 223 mg/dL (70-105); Osmolality,Calculated 309 (280-300); Potassium 4.3 mEq/L (3.5-5.1); Sodium 141 mEq/L (136-145); eGFR For Non-African Americans > 60 (> 60)
[2018-06-08] MEDS: Heparin 25,000 UNIT/500 ML D5W 25,000 UNIT/500 ML BAG IVC SCH ×3 (07:45→15:44)
[2018-06-08] MEDS ORDERED: predniSONE 20 MG TABLET PO SCH (09:00)
[2018-06-08] MEDS: Insulin LISPRO 300 UNITS/3 ML VIAL SQ SCH ×6 (09:07→15:39)
[2018-06-08] MEDS: Cholecalciferol (D-3) 1,000 UNIT TABLET PO SCH (09:09)
[2018-06-08] MEDS: Diltiazem CD (24hr) 180 MG CAPSULE PO SCH (09:09)
[2018-06-08] MEDS: *HR* Digoxin 0.125 MG TABLET PO SCH (09:09)
[2018-06-08] MEDS: Furosemide 40 MG/4 ML VIAL IVP SCH ×2 (09:10→17:32)
[2018-06-08] MEDS: Insulin DETEMIR 100 UNIT/ML X5UNITS SQ SCH ×2 (09:10→20:23)
[2018-06-08] MEDS: Ascorbic Acid 500 MG TABLET PO SCH (09:10)
[2018-06-08] MEDS: (Cyanocobalamin (Vitamin B-12) [Vitamin B-12] 100 MCG PO SCH (09:11)
--- NOTE | 2018-06-08 10:17 | Internal Med Progress Note ---
Hospitalist Progress Note - Encounter Date of Encounter: 06/08/18 Time of Encounter: 10:14 - Subjective Interval History: Patient seen and evaluated at bedside. She reports that her breathing is back to her baseline, but reports that when she walks to the restroom her HR goes up to the 130s and she becomes winded. Denies chest pain, nausea, lightheadedness or palpitations. - Exam Vitals: Temp Pulse Resp BP Pulse Ox 97.7 F 87 16 163/76 98 06/08/18 07:57 06/08/18 07:57 06/08/18 07:57 06/08/18 07:57 06/08/18 09:06 Exam: Vitals: Reviewed General: Morbidly obese, in mild distress with minimal exertion due to shortness of breath. Skin: Warm and supple. Neck: JVD unable to be access due to short neck. No carotid bruits. No palpable thyroid. Chest: Diminished thoracic expansion. No wheezes, rales or rhonchi. Reduced breath sounds bilaterally. Heart: irregularly irregular, Normal S1 & S2. No rubs or murmurs. Abdomen: Obese, Non-distended, soft and non-tender to palpation. NABS in all 4 quadrants Extremities: +2 edema in the lower extr b/l. Neurological: Awake, AO x4. CN II-XII intact. Psych: Affect appropriate. - Assessment and Plan (1) Atrial fibrillation with RVR Current Visit: No Status: Acute Assessment and Plan: Patient off the cardizem drip since last night around 10pm. HR at rest ranging from 90s to low 100s. HR goes up to 130s while walking to the restroom Plan Discussed with cardiology team. Recommended to increase cardizem to 360mg/PO daily Continue digoxin 0.125mg/PO daily On a Heparin drip, INR still not therapeutic Warfarin as per pharmacy dosage (2) Acute exacerbation of chronic obstructive airways disease Current Visit: No Status: Resolved Assessment and Plan: Chest is clear to auscultation. Patient on 4 litters of O2 by nasal cannula Plan Continue O2 by nasal cannula, titrate for O2Sat >92% Nebs with DuoNebs Q4RT PRN On singular 10mg/PO Daily Decrease prednisone to 10mg/PO daily (3) Essential hypertension Current Visit: No Status: Chronic Assessment and Plan: BP well controlled. Patient on Furosemide 40mg/IV BID Plus diltiazem 360mg/PO daily Lisinopril 2.5mg/PO daily (4) Morbid obesity with BMI of 60.0-69.9, adult Current Visit: No Status: Chronic (5) GERD (gastroesophageal reflux disease) Current Visit: No Status: Chronic Assessment and Plan: Continue omeprazole 40 mg by mouth daily (6) Anemia Current Visit: No Status: Chronic Assessment and Plan: H&H stable. No signs of active bleeding. We will continue to monitor. Continue ferrous sulfate 325 mg by mouth daily (7) Congestive heart failure Current Visit: No Status: Chronic Assessment and Plan: Chest is clear to auscultation bilaterally. 2+ pitting edema in the lower extremity Plan: To continue gentle IV diruresis with furosemide 40mg/IV BID strict intake and output water restriction to 1.5 litters a day. daily weight 2 gram sodium diet will continue to follow cardiology recommendations On lisinopril 2.5mg/PO daily (8) Prediabetes Current Visit: Yes Status: Acute Assessment and Plan: Blood sugar suboptimally controlled. due to steroids Plan Prednisone decreased to 10mg/PO daily Levemir increased to 20 units SubQ BID Continue Lispro 4 units AC and high dose sliding scale Accu-checks AC/HS carb controlled diet DVT Prophylaxis: Patient on a Heparin drip due to A.Fib - Summary of Assessment and Plan Summary of Assessment and Plan: Patient to remain in the hospital. HR not controlled, medications for Rate controlled have been adjusted. - Time Spent with Patient Total time spent is greater than 50% in coordination of care (as documented) at patient's floor/unit and/or counseling patient: Greater than 35 minutes (40) Plan of Care Discussed with: patient (her and the nurse.) Internal Medicine: Result - Labs CBC & Chem 7: 06/08/18 04:28 06/08/18 04:28 Labs: Short CBC 06/08/18 Range/Units 04:28 WBC 8.0 (4.3-11.1) K/mcL Hgb 9.2 L (11.5-15.4) g/dL Hct 32.7 L (35.3-44.9) % Plt Count 216 (140-400) K/mcL Neutrophils # 6.3 (1.6-8.9) K/mcL BMP 06/08/18 04:28 Sodium 141 Potassium 4.3 Chloride 94 L Carbon Dioxide 38 H BUN 40 H Creatinine 0.85 Glucose 223 H Calcium 9.4 - ABG Interpretation ABG results: ABG ABG pH 7.42 pH Units (7.32-7.45) 06/06/18 11:35 ABG pCO2 63 mmHg (35-45) H 06/06/18 11:35 ABG pO2 90 mmHg (85-104) 06/06/18 11:35 ABG O2 Saturation 97 % (95-98) 06/06/18 11:35 PT/INR, D-dimer PT 12.9 Seconds (9.4-12.1) H 06/08/18 04:28 Consult Discharge Plan - Plan Referrals: Lisbet Ray, CATERING ADMINISTRATIVE ASSISTANT [Primary Care Provider] - (5) GERD (gastroesophageal reflux disease) Qualifiers: Qualified Code(s): K21.9 - Gastro-esophageal reflux disease without esophagitis (6) Anemia Qualifiers: Qualified Code(s): D64.9 - Anemia, unspecified (7) Congestive heart failure Qualifiers: Qualified Code(s): I50.32 - Chronic diastolic (congestive) heart failure
--- NOTE | 2018-06-08 10:18 | Cardiology Progress Note ---
Date of Encounter: 06/08/18 Time of Encounter: 10:12 Assessment and Plan (1) Paroxysmal atrial fibrillation Current Visit: Yes Status: Chronic Known PAF, was on rhythmol 325mg Q12 hours at home. ZOILA/DCCV 03/15/18 to SR. Now with recurrence of PAF. Currently on PO Cardizem CD-360mg daily and PO Digoxin 125mcg daily. 12 hr tele AVG HR 85, A-Fib. Avoiding BB due to lung disease. 04/04/18 admitted with GI bleed. EGD, colonoscopy without clear source of b leeding noted. Coumadin was stopped. HGB stable. Coumadin resumed. Recommend goal INR at lower end of therapeutic range of 2. [id number] (Age, Female, HTN). Dr. Mohan recommended heparin gtt inpt given increased CVA risk if she converts to SR. Stopped Rythmol given recurrence of A-Fib (failed) and recommend rate control strategy for now. Outpt follow-up with EP to discuss ablation or other antiarrhythmics now that AC is being resumed. Will not warrant bridging at d/c. Cardiology signing off. Reconsult PRN. If remains inpt on Sunday, can reconsult for inpt EP evaluation, but can be done outpt as well. (2) Diastolic congestive heart failure, NYHA class 3 Current Visit: No Status: Chronic Known diastolic CHF. CXR vascular congestion. BNP only mildly elevated 214. BLE wrapped. Agree with IV Lasix 40mg BID. Recommend strict I/Os, Na and fluid restriction, daily weights. Qualifiers: Congestive heart failure chronicity: chronic Qualified Code(s): I50.32 - Chronic diastolic (congestive) heart failure Discussion w patient/family: The assessment and plan as outlined above was discussed with the patient and/or family members who expressed understanding and agreement. All questions were answered. Thank you for involving us in the care of your patient. Please call with any questions. I will discuss all the above with Dr. Bright and make changes as necessary. Subjective Principal diagnosis: A-Fib Interval history: Remains A-Fib. 12 hr tele AVG HR 85, A-Fib. Denies chest pain or worsening dyspnea. Objective Vital Signs, Last 4 Hours Temp Pulse Resp BP Pulse Ox 06/08/18 09:06 98 06/08/18 07:57 97.7 F 87 16 163/76 98 Vital Signs Temp Pulse Resp BP Pulse Ox 06/08/18 09:06 98 06/08/18 07:57 97.7 F 87 16 163/76 98 06/08/18 02:39 98.1 F 96 18 149/81 98 06/07/18 23:33 95 06/07/18 21:51 98.0 F 77 18 156/65 97 06/07/18 20:16 20 100 06/07/18 15:07 98.4 F 112 20 156/64 96 06/07/18 12:25 97.7 F 91 12 151/82 96 Intake and Output 06/07/18 06/08/18 06/08/18 23:59 07:59 15:59 Intake Total 517 / 517 357 / 357 120 / 120 Output Total 900 / 900 500 / 500 Balance -383 / -383 -143 / -143 120 / 120 Intake: IV Fluids 157 / 157 257 / 257 Heparin 25,000 UNIT/500 ML D5W 157 / 157 257 / 257 25,000 unit In 500 ml @ 14 UNIT /KG/HR 45.668 mls/hr IVC . [id number] [facility] Rx#:[id number] Oral 360 / 360 100 / 100 120 / 120 Output: Urine 900 / 900 500 / 500 Other: Meal Dinner Breakfast Percent of Meal Consumed 100% 100% Weight 164.6 kg Patient Weight 06/08/18 23:59 Weight 164.6 kg General: Conversant, No Apparent Distress HEENT: Atraumatic, Normocephaly, Mucus Membranes Moist Neck: Normal carotid pulses Cardiac: Other (irregularly irregular) Lungs: Normal Breath Sounds, No Wheeze, Rales, Rhonchi Neuro: Alert and responsive, No focal deficits noted Abdomen: Soft, Non-Tender Skin: No rashes noted on visualized skin Musculoskeletal: No Chest Wall Tenderness Extremities: Other (BLE wrapped--edema noted) Results 06/08/18 04:28 06/08/18 04:28 Lab Results 06/08/18 06/08/18 06/08/18 04:28 04:28 04:28 WBC 8.0 Hgb 9.2 L Hct 32.7 L Plt Count 216 INR 1.1 Sodium 141 Potassium 4.3 Chloride 94 L Carbon Dioxide 38 H BUN 40 H Creatinine 0.85 Glucose 223 H Calcium 9.4 Magnesium 2.0 Short CBC 11/03/18 Range/Units 04:28 WBC 8.0 (4.3-11.1) K/mcL Hgb 9.2 L (11.5-15.4) g/dL Hct 32.7 L (35.3-44.9) % Plt Count 216 (140-400) K/mcL Neutrophils # 6.3 (1.6-8.9) K/mcL BMP 06/08/18 Range/Units 04:28 Sodium 141 (136-145) mEq/L Potassium 4.3 (3.5-5.1) mEq/L Chloride 94 L (98-107) mEq/L Carbon Dioxide 38 H (23-29) mEq/L BUN 40 H (8-23) mg/dL Creatinine 0.85 (0.60-1.20) mg/dL Glucose 223 H (70-105) mg/dL Calcium 9.4 (8.6-10.3) mg/dL Active Medications Acetaminophen (Tylenol) 650 mg PO Q6HR PRN PRN Reason: Mild Pain/Fever Stop: 12/05/18 09:01 Acetaminophen (Tylenol) 325 mg PO HS PRN PRN Reason: PAIN/SLEEP Stop: 12/05/18 21:01 Hydrocodone Bitart/Acetaminophen ([place] 5-325 Mg) 1 tab PO Q6HR PRN PRN Reason: Moderate Pain Stop: 12/05/18 09:01 Albuterol/Ipratropium (Duoneb) 3 ml IH [id number] PRN PRN Reason: Shortness Of Breath/Wheezing Stop: 12/05/18 12:01 Ascorbic Acid (Vitamin C) 500 mg PO DAILY TIM Stop: 12/06/18 09:01 Last Admin: 06/08/18 09:10 Dose: 500 mg Calcium Carbonate (Tums) 500 mg PO BID TIM Stop: 12/05/18 21:01 Last Admin: 06/08/18 09:09 Dose: 500 mg Dextrose/Water (Dextrose 50% (Syg)) 25 ml IVP AD PRN PRN Reason: Hypoglycemia Stop: 12/06/18 11:36 Digoxin (Lanoxin) 0.125 mg PO DAILY [facility] Stop: 12/07/18 10:01 Last Admin: 06/08/18 09:09 Dose: 0.125 mg Diltiazem HCl (Cardizem Cd) 360 mg PO DAILY [facility] Stop: 12/08/18 09:01 Last Admin: 06/08/18 09:09 Dose: 360 mg Diphenhydramine HCl (Benadryl) 12.5 mg PO HS PRN PRN Reason: PAIN/SLEEP Stop: 12/05/18 21:01 Ferrous Sulfate (Ferrous Sulfate) 325 mg PO DAILY [facility] Stop: 12/06/18 09:01 Last Admin: 06/08/18 09:10 Dose: Not Given Furosemide (Lasix) 40 mg IVP BIDDIURETIC TIM Stop: 12/05/18 09:31 Last Admin: 06/08/18 09:10 Dose: 40 mg Glucagon (Glucagen) 1 mg IM ONCE PRN PRN Reason: Hypoglycemia Stop: 12/06/18 11:36 Glucose (Gluctose) 15 gm PO ONCE PRN PRN Reason: Hypoglycemia Stop: 12/06/18 11:36 Glucose (Gluctose) 30 gm PO ONCE PRN PRN Reason: Hypoglycemia Stop: 12/06/18 11:36 Heparin Sodium (Porcine) (Heparin) 9,000 unit IVP Q6HR PRN PRN Reason: SEE COMMENTS Stop: 12/06/18 12:25 Last Admin: 06/07/18 22:00 Dose: 5,000 unit Heparin Sodium (Porcine) (Heparin) 4,500 unit IVP Q6H PRN PRN Reason: SEE COMMENTS Stop: 12/06/18 12:25 Dextrose (Dextrose 5%) 1,000 mls @ 100 mls/hr IVC .Q10H PRN PRN Reason: HYPOGLYCEMIA Stop: 12/06/18 11:36 Heparin Sodium/Dextrose (Heparin 25,000 Unit/500 Ml D5w) 25,000 unit in 500 mls @ 45.668 mls/hr IVC .[id number] [facility]; Protocol Stop: 12/06/18 12:31 Last Admin: 06/08/18 07:46 Dose: Not Given Insulin Detemir (Levemir) 20 unit SQ BID [facility] Stop: 12/08/18 09:01 Last Admin: 06/08/18 09:10 Dose: Not Given Insulin Human Lispro (Humalog) 4 units SQ TIDWM [facility] Stop: 12/06/18 12:01 Last Admin: 06/08/18 09:07 Dose: Not Given Insulin Human Lispro (Humalog) 0 units SQ TIDAC [facility]; Protocol Stop: 12/06/18 16:31 Last Admin: 06/08/18 09:07 Dose: Not Given Lisinopril (Zestril) 2.5 mg PO DAILY [facility] Stop: 12/06/18 09:01 Last Admin: 06/08/18 09:09 Dose: 2.5 mg Montelukast Sodium (Singulair) 10 mg PO DAILY [facility] Stop: 12/06/18 09:01 Last Admin: 06/08/18 09:09 Dose: 10 mg Naloxone HCl (Narcan) 0.4 mg IVP Q2MIN PRN PRN Reason: SEE COMMENTS Stop: 12/05/18 09:01 Omeprazole (Prilosec) 40 mg PO DAILY [facility] Stop: 12/06/18 09:01 Last Admin: 06/08/18 09:09 Dose: 40 mg Ondansetron HCl (Zofran) 4 mg IVP Q8HR PRN PRN Reason: Nausea And Vomiting Stop: 12/05/18 09:01 Pharmacy Profile Note (Patient Taking Own Medication) 0 each PO DAILY [facility] Stop: 12/06/18 09:01 Last Admin: 06/08/18 09:11 Dose: Not Given Pharmacy Profile Note (Patient Taking Own Medication) 0 each PO HS [facility] Stop: 12/05/18 21:01 Last Admin: 06/07/18 22:01 Dose: 1 each Pharmacy Profile Note (Patient Taking Own Medication) 1 each IH BIDR [facility] Stop: 12/05/18 10:01 Last Admin: 06/07/18 20:16 Dose: 1 each Pharmacy Profile Note (Patient Taking Own Medication) 2 each IH HS [facility] Stop: 12/05/18 21:01 Last Admin: 06/07/18 20:16 Dose: 2 each Prednisone (Prednisone) 20 mg PO DAILY [facility] Stop: 12/08/18 09:01 Last Admin: 06/08/18 09:09 Dose: 20 mg Promethazine HCl (Phenergan) 12.5 mg IVP Q6HR PRN PRN Reason: Nausea And Vomiting Stop: 12/05/18 09:01 Vitamin D (Vitamin D) 1,000 unit PO DAILY [facility] Stop: 12/06/18 09:01 Last Admin: 06/08/18 09:09 Dose: 1,000 unit Warfarin Sodium (Coumadin Perpt) 1 each PO DAILY@1800 PRN PRN 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
[2018-06-08] MEDS: ADVAIR 250/50 IH SCH ×2 (10:23→20:39)
[2018-06-08] MEDS ORDERED: *HR* Warfarin 5 MG TABLET PO ONE (18:00)
[2018-06-08] MEDS: (Ropinirole Hcl [Requip Xl] 4 MG) PO SCH (20:30)
[2018-06-08] MEDS: SPIRIVA RESPIMAT IH SCH (20:39)
[2018-06-09 02:54] LABS: Heparin anti-factor XA UFH 0.39 IU/mL (0.30-0.70); INR 1.7; Prothrombin Time 18.7 Seconds (9.4-12.1)
[2018-06-09 03:07] LABS: BUN/Creatinine Ratio 44 (6-26); Blood Urea Nitrogen 45 mg/dL (8-23); Calcium 9.5 mg/dL (8.6-10.3); Carbon Dioxide 41 mEq/L (23-29); Chloride 93 mEq/L (98-107); Glucose 258 mg/dL (70-105); Osmolality,Calculated 312 (280-300); Phosphorous 3.6 mg/dL (2.7-4.5); Potassium 3.7 mEq/L (3.5-5.1); Sodium 141 mEq/L (136-145); eGFR For Non-African Americans 53 (> 60)
[2018-06-09] MEDS: Heparin 25,000 UNIT/500 ML D5W 25,000 UNIT/500 ML BAG IVC SCH ×2 (08:20→10:52)
[2018-06-09] MEDS ORDERED: predniSONE 10 MG TABLET PO SCH (09:00)
[2018-06-09] MEDS: Insulin LISPRO 300 UNITS/3 ML VIAL SQ SCH ×6 (09:16→16:48)
[2018-06-09] MEDS: Diltiazem CD (24hr) 180 MG CAPSULE PO SCH (09:16)
[2018-06-09] MEDS: Furosemide 40 MG/4 ML VIAL IVP SCH (09:16)
[2018-06-09] MEDS: Ascorbic Acid 500 MG TABLET PO SCH (09:17)
[2018-06-09] MEDS: Cholecalciferol (D-3) 1,000 UNIT TABLET PO SCH (09:17)
[2018-06-09] MEDS: *HR* Digoxin 0.125 MG TABLET PO SCH (09:17)
[2018-06-09] MEDS: Insulin DETEMIR 100 UNIT/ML X5UNITS SQ SCH ×2 (09:18→21:26)
[2018-06-09] MEDS: (Cyanocobalamin (Vitamin B-12) [Vitamin B-12] 100 MCG PO SCH (09:18)
[2018-06-09] MEDS ORDERED: Nystatin SUSP 5 ML UD.LIQ PO PRN (09:47)
--- NOTE | 2018-06-09 10:44 | Event Note ---
Date of Encounter: 06/09/18 Time of Encounter: 10:30 - Cardiology Event Note HR remains controlled, avg HR=99. Now mid 80's. If remains inpt, will plan for EP consult on Sunday; order placed. Discussed and reviewed with Dr. Bright.
--- NOTE | 2018-06-09 10:48 | Internal Med Progress Note ---
Hospitalist Progress Note - Encounter Date of Encounter: 06/09/18 Time of Encounter: 10:55 - Subjective Interval History: Seen and evaluated at bedside. she reports feeling well, but still seeing her heart rate go up when she walks to the bathroom but not as high as it was the past couple of days. she denies chest pain, or lightheadedness. reports mild s hortness of breath with exertion. - Exam Vitals: Temp Pulse Resp BP Pulse Ox 97.9 F 101 18 139/94 99 06/09/18 06:52 06/09/18 06:52 06/09/18 06:52 06/09/18 06:52 06/09/18 09:34 Exam: Vitals: Reviewed General: Morbidly obese, in mild distress with minimal exertion due to shortness of breath. on 5 litters of O2 by nasal cannula Skin: Warm and supple. Neck: JVD unable to be access due to short neck. No carotid bruits. No palpable thyroid. Chest: Diminished thoracic expansion. No wheezes, rales or rhonchi. Reduced breath sounds bilaterally. Heart: irregularly irregular, Normal S1 & S2. No rubs or murmurs. Abdomen: Obese, Non-distended, soft, non-tender to palpation. Extremities: +2 edema in the lower extr b/l. Neurological: Awake, AO x4. CN II-XII intact. Psych: Affect appropriate. - Assessment and Plan (1) Atrial fibrillation Current Visit: Yes Status: Chronic Assessment and Plan: HR in the 99s at rest. Plan EP consulted by the cardiology team Continue Cardizem 360mg/PO daily On digoxin 0.125mg/PO daily continue heparin drip, INR of 1.7 today on warfarin pharmacy dosing tele monitoring (2) Acute exacerbation of chronic obstructive airways disease Current Visit: No Status: Resolved Assessment and Plan: chest is cleared to auscultation. Plan continue O2 by nasal cannula, titrated for O2 Sat >92% DC prednisone DuoNebs Q4RT PRN Singular 10mg/PO daily incentive spirometry (3) Essential hypertension Current Visit: No Status: Chronic Assessment and Plan: BP well controlled. continue Cardizem 360mg/PO daily and Furosemide 40mg/PO daily (4) GERD (gastroesophageal reflux disease) Current Visit: No Status: Chronic Assessment and Plan: Omeprazole 40mg/PO daily. (5) Anemia Current Visit: No Status: Chronic Assessment and Plan: H7H stable. No signs of bleeding will continue to monitor. (6) Congestive heart failure Current Visit: No Status: Chronic Assessment and Plan: chest is cleared to auscultation. patient euvolemic Plan Decrease lasix to 40mg/IV daily due to alkalosis ABG Patient cannot tolerate Bipap due to claustrophobia Fluid restriction to 1.5 litter of fluids a day daily weight Continue lisinopril 2.5 mg by mouth daily. (7) Prediabetes Current Visit: Yes Status: Acute Assessment and Plan: Blood sugar suboptimally controlled Plan Increase levemir to 25 units BID Increase lispro to 7 units AC continue Lispro high dose sliding scale AC Carb controlled diet Prednisone discontinued. (8) Morbid obesity with BMI of 60.0-69.9, adult Current Visit: No Status: Chronic - Time Spent with Patient Total time spent is greater than 50% in coordination of care (as documented) at patient's floor/unit and/or counseling patient: Internal Medicine: Result - Labs CBC & Chem 7: 06/08/18 04:28 06/09/18 02:31 Labs: BMP 06/09/18 02:31 Sodium 141 Potassium 3.7 Chloride 93 L Carbon Dioxide 41 H* BUN 45 H Creatinine 1.03 Glucose 258 H Calcium 9.5 - ABG Interpretation ABG results: ABG ABG pH 7.42 pH Units (7.32-7.45) 06/06/18 11:35 ABG pCO2 63 mmHg (35-45) H 06/06/18 11:35 ABG pO2 90 mmHg (85-104) 06/06/18 11:35 ABG O2 Saturation 97 % (95-98) 06/06/18 11:35 PT/INR, D-dimer PT 18.7 Seconds (9.4-12.1) H 06/09/18 02:31 Consult Discharge Plan - Plan Referrals: Lisbet Ray, STORE HOST [Primary Care Provider] - (1) Atrial fibrillation Qualifiers: Atrial fibrillation type: paroxysmal Qualified Code(s): I48.0 - Paroxysmal atrial fibrillation (4) GERD (gastroesophageal reflux disease) Qualifiers: Esophagitis presence: without esophagitis Qualified Code(s): K21.9 - Gastro- esophageal reflux disease without esophagitis (5) Anemia Qualifiers: Anemia type: unspecified type Qualified Code(s): D64.9 - Anemia, unspecified (6) Congestive heart failure Qualifiers: Heart failure type: diastolic Heart failure chronicity: chronic Qualified Code(s): I50.32 - Chronic diastolic (congestive) heart failure
[2018-06-09] MEDS: ADVAIR 250/50 IH SCH ×2 (10:49→20:12)
[2018-06-09 10:55] LABS: ABG Base Excess 17 mEq/L (-2 to 3); ABG HCO3 44 mEq/L (21-27); ABG Oxygen Saturation 99 % (95-98); ABG PCO2 68 mmHg (35-45); ABG PH 7.43 pH Units (7.32-7.45); ABG PO2 131 mmHg (85-104); ABG TCO2 47 mEq/L (20-26)
[2018-06-09] MEDS ORDERED: *HR* Warfarin 5 MG TABLET PO ONE (18:00)
[2018-06-09] MEDS: SPIRIVA RESPIMAT IH SCH (20:12)
[2018-06-09] MEDS: (Ropinirole Hcl [Requip Xl] 4 MG) PO SCH (21:25)
[2018-06-10 02:40] LABS: Prothrombin Time 34.2 Seconds (9.4-12.1)
[2018-06-10] MEDS: ADVAIR 250/50 IH SCH ×2 (07:54→20:01)
--- NOTE | 2018-06-10 10:34 | Electrophysiology Consult Note ---
<Jose Enrique Garcia - Last Filed: 06/10/18 10:34> Date of Encounter: 06/10/18 Time of Encounter: 10:00 Assessment and Plan (1) Atrial fibrillation Current Visit: Yes Status: Chronic Per EP: Magnesium and TSH stable during hospital stay. History of paroxysmal atrial fibrillation and recently on Rythmol sustained release 225 mg by mouth twice a day. Presented with A. fib with RVR and has now been off Rythmol now during hospital stay since 06/04/2018. Received digoxin load and currently taking Cardizem CD 360 mg by mouth daily and digoxin 0.125 mg by mouth daily. Average heart rate past 12 hours 96, remains A. fib currently 90s to 100s. Patient requested elective physiology consult during hospital stay to evaluate other options regarding rhythm control strategy. We will discuss and review with Dr. jA Virk further options regarding antiarrhythmic therapy versus potential for ablations. Of note, patient and report they have been told by Dr. Virk in the past she is not a good candidate for ablation. Continue with rate control strategy for now. Further recommendations pending discussion with Dr. Aj Virk. Regarding long-term anticoagulation, now back on Coumadin with INR currently 3.0. Target INR 2.0-3.0. H&H stable. Denies any active bleeding or blood loss. Qualifiers: Atrial fibrillation type: paroxysmal Qualified Code(s): I48.0 - Paroxysmal atrial fibrillation Discussion w patient/family: The assessment and plan as outlined above was discussed with the patient and/or family members who expressed understanding and agreement. All questions were answered. Thank you for involving us in the care of your patient. Please call with any questions. History of Present Illness Consult date: 06/10/18 Requesting physician: Colt Salas Consult reason: Afib, patient request Chief complaint: Weakness History of present illness: Previous records reviewed: "Ms. Guevara is a 67 year old female with a relevant past medical history of a.fib on rythmol, diastolic CHF, HTN, COPD on 5L home O2, recent GI bleed at which time Coumadin was stopped who presented to [facility] with complaints of worsening shortness of breath and palpitations that started yesterday afternoon, associated chest pressure. Found to be A-Fib RVR HR 120s. Cardiology consulted for further recs. Prior CV testing: TTE 05/09/18: Technically sub-optimal due to clinical status. Patient requested to stop the study early. Apical and subcostal views not obtained. LVEF 60-65%. Mild concentric left ventricular hypertrophy. Right ventricle was not well visualized or evaluated. Mild tricuspid regurgitation. ZOILA/DCCV 03/15/18: Successful DCCV of atrial fibrillation to normal sinus rhythm. No thrombus on ZOILA. Patient desaturated during procedure. Consider outpatient evaluation for FUENTES". Patient and confirm above information. Electrophysiology consult per patient and request to evaluate potential rhythm control strategy. Medical records reviewed and patient has not received Rythmol medication since 06/04/2018 and has been on rate control strategy. Patient now resumed on Coumadin for anticoagulation. Patient reports currently decreased energy and fatigue she suspects related to her atrial ablation. She reports occasional intermittent palpitations, however improved since admission. She reports elevated heart rates walking to the bathroom. She denies any dizziness, syncope, or falls. Denies any current active bleeding or blood loss. Patient and very interested in attempts at rastafari to sinus rhythm. They also report ongoing unresolved lung issues and pending evaluation at [facility] for second opinion. reports patient had missed doses Rythmol past few weeks during hospital stay. She denies any missed doses at home. Had been off Coumadin until recently for anemia and GI evaluation. Past Med Surg Social Fam HX - Past Medical History Attestation: Yes The following information was validated with the patient. 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, heart cath no stent - Social History Smoking Status: Former smoker Smokeless Tobacco Status: No Alcohol use: none Drug use: none - Family History Father Adopted: No Family Member Ethnicity: Non- Twin of Family Member: Yes, Fraternal Living Status: Hx Family Cardiac Disorders: Yes (Afib, HTN,) Hx Family Respiratory Disorders: Yes Hx Family Cancer: No Hx Family GI Disorders: No Hx Family Endocrine Disorder: No Hx Family Neuromuscular Disorders: No Hx Family Neurologic Disorders: No Hx Family HEENT Disorders: No Hx Family Autoimmune Disorders: No Mother Adopted: No Family Member Ethnicity: Non- Twin of Family Member: Yes, Fraternal Living Status: Hx Family Cardiac Disorders: Yes Hx Family Respiratory Disorders: Yes Hx Family Cancer: No Hx Family GI Disorders: No Hx Family Endocrine Disorder: No Hx Family Neuromuscular Disorders: No Hx Family Neurologic Disorders: No Hx Family HEENT Disorders: No Hx Family Autoimmune Disorders: No Sister Living Status: Hx Family Cardiac Disorders: Yes Hx Family Respiratory Disorders: Yes (copd) Medications and Allergies RX: Alendronate Sodium [Fosamax] 70 mg PO WE 10/28/15 [History] RX: Ascorbate Calcium [Vitamin C] 500 mg PO DAILY 10/28/15 [History] RX: Cyanocobalamin (Vitamin B-12) [Vitamin B-12] 100 mcg PO DAILY 10/28/15 [History] RX: Tiotropium [Spiriva] 2 puff PO HS 10/28/15 [History] RX: Ferrous Sulfate [Iron] 325 mg PO DAILY 07/03/16 [History] RX: Albuterol Sulfate [Proventil Hfa] 2 puff IH Q4H PRN 09/14/16 [History] RX: Oxygen 3 l IH AD 10/24/16 [History] RX: Fluticasone/Salmeterol [Advair 250-50 Diskus] 1 puff IH BID #1 blst.w.dev 11/16/16 [Rx] RX: Montelukast [Singulair] 10 mg PO DAILY 11/29/16 [History] RX: Calcium Carbonate [Calcium] 600 mg PO BID 05/08/17 [History] RX: Diltiazem CD (24hr) [Cardizem CD] 120 mg PO DAILY cap.er.24h 05/21/17 [Rx] RX: Acetaminophen/Diphenhydramine [Percogesic 325-12.5 mg Tablet] 1 - 2 tab PO HS PRN 07/19/17 [History] RX: Cholecalciferol (D-3) [Vitamin D] 5,000 unit PO DAILY 03/14/18 [History] RX: Lisinopril 2.5 mg PO DAILY 03/14/18 [History] RX: Propafenone HCl [Propafenone HCl ER] 325 mg PO Q12H 04/03/18 [History] RX: Clopidogrel [Plavix] 75 mg PO DAILY 30 Days #30 tablet 04/11/18 [Rx] RX: Furosemide [Lasix] 20 mg PO HS 05/08/18 [History] RX: Furosemide [Lasix] 40 mg PO DAILY 05/08/18 [History] RX: Omeprazole [PriLOSEC] 40 mg PO DAILY #30 cap 05/15/18 [Rx] Ropinirole HCl [Requip Xl] 4 mg PO HS 06/04/18 [History] Allergy/AdvReac Type Severity Reaction Status Date / Time aspirin [ASA] Allergy Difficulty Verified 03/14/18 13:43 Breathing Penicillins Allergy Hives Verified 03/14/18 13:43 Sulfa (Sulfonamide Allergy Rash Verified 03/14/18 13:43 Antibiotics) All Systems Review: The remainder of the systems were reviewed and are negative - Constitutional Constitutional: fatigue, weakness - Cardiovascular Cardiovascular: as per HPI, dyspnea at rest, dyspnea on exertion, irregular heart rhythm, palpitations, rapid heart rate Physical Examination Vital Signs, Last 4 Hours Temp Pulse Resp BP Pulse Ox 06/10/18 07:54 16 97 06/10/18 07:32 98.0 F 86 18 92/83 95 General: Conversant, No Apparent Distress HEENT: Atraumatic, Normocephaly, Mucus Membranes Moist Neck: No JVD, Normal carotid pulses Cardiac: No Murmur, Other (Irregularly irregular) Lungs: Normal Breath Sounds, No Wheeze, Rales, Rhonchi, Other (Diminished breath sounds throughout, mild conversational dyspnea noted, on nasal cannula oxygen) Neuro: Alert and responsive, No focal deficits noted Abdomen: Soft, Non-Tender Skin: No rashes noted on visualized skin Musculoskeletal: No Chest Wall Tenderness Extremities: No Clubbing, No Cyanosis, No Edema, Normal Pulses Results 06/08/18 04:28 06/09/18 02:31 Lab Results Laboratory Tests 06/04/18 06/04/18 06/05/18 19:06 19:06 09:26 Hgb 8.9 L Hct 33.3 L INR Potassium Creatinine Est GFR (Non-Af Amer) Magnesium B-Natriuretic Peptide 214 H TSH 2.567 06/08/18 06/09/18 06/10/18 04:28 02:31 02:15 Hgb 9.2 L Hct 32.7 L INR 3.0 D Potassium 3.7 Creatinine 1.03 Est GFR (Non-Af Amer) 53 L Magnesium 2.0 B-Natriuretic Peptide TSH ITS Impressions Chest X-Ray 06/04/18 18:55 IMPRESSION: 1. Cardiomegaly with vascular congestion. D/ / Mihir Mora MD / Mihir Mora MD Interpreting Provider: Mihir Mora MD Active Medications Acetaminophen (Tylenol) 650 mg PO Q6HR PRN PRN Reason: Mild Pain/Fever Stop: 12/05/18 09:01 Acetaminophen (Tylenol) 325 mg PO HS PRN PRN Reason: PAIN/SLEEP Stop: 12/05/18 21:01 Hydrocodone Bitart/Acetaminophen (Temple 5-325 Mg) 1 tab PO Q6HR PRN PRN Reason: Moderate Pain Stop: 12/05/18 09:01 Albuterol/Ipratropium (Duoneb) 3 ml IH [id number] PRN PRN Reason: Shortness Of Breath/Wheezing Stop: 12/05/18 12:01 Ascorbic Acid (Vitamin C) 500 mg PO DAILY TIM Stop: 12/06/18 09:01 Last Admin: 06/09/18 09:17 Dose: 500 mg Calcium Carbonate (Tums) 500 mg PO BID TIM Stop: 12/05/18 21:01 Last Admin: 06/09/18 21:26 Dose: 500 mg Dextrose/Water (Dextrose 50% (Syg)) 25 ml IVP AD PRN PRN Reason: Hypoglycemia Stop: 12/06/18 11:36 Digoxin (Lanoxin) 0.125 mg PO DAILY TIM Stop: 12/07/18 10:01 Last Admin: 06/09/18 09:17 Dose: 0.125 mg Diltiazem HCl (Cardizem Cd) 360 mg PO DAILY [facility] Stop: 12/08/18 09:01 Last Admin: 06/09/18 09:16 Dose: 360 mg Diphenhydramine HCl (Benadryl) 12.5 mg PO HS PRN PRN Reason: PAIN/SLEEP Stop: 12/05/18 21:01 Ferrous Sulfate (Ferrous Sulfate) 325 mg PO DAILY [facility] Stop: 12/06/18 09:01 Last Admin: 06/09/18 09:17 Dose: Not Given Furosemide (Lasix) 40 mg IVP DAILY [facility] Stop: 12/10/18 09:01 Glucagon (Glucagen) 1 mg IM ONCE PRN PRN Reason: Hypoglycemia Stop: 12/06/18 11:36 Glucose (Gluctose) 15 gm PO ONCE PRN PRN Reason: Hypoglycemia Stop: 12/06/18 11:36 Glucose (Gluctose) 30 gm PO ONCE PRN PRN Reason: Hypoglycemia Stop: 12/06/18 11:36 Dextrose (Dextrose 5%) 1,000 mls @ 100 mls/hr IVC .Q10H PRN PRN Reason: HYPOGLYCEMIA Stop: 12/06/18 11:36 Insulin Detemir (Levemir) 25 unit SQ BID [facility] Stop: 12/09/18 21:01 Last Admin: 06/09/18 21:26 Dose: Not Given Insulin Human Lispro (Humalog) 0 units SQ TIDAC [facility]; Protocol Stop: 12/06/18 16:31 Last Admin: 06/09/18 16:47 Dose: Not Given Insulin Human Lispro (Humalog) 7 units SQ TIDWM [facility] Stop: 12/09/18 12:01 Last Admin: 06/09/18 16:48 Dose: Not Given Lisinopril (Zestril) 2.5 mg PO DAILY [facility] Stop: 12/06/18 09:01 Last Admin: 06/09/18 09:16 Dose: 2.5 mg Montelukast Sodium (Singulair) 10 mg PO DAILY [facility] Stop: 12/06/18 09:01 Last Admin: 06/09/18 09:17 Dose: 10 mg Naloxone HCl (Narcan) 0.4 mg IVP Q2MIN PRN PRN Reason: SEE COMMENTS Stop: 12/05/18 09:01 Nystatin (Mycostatin Suspension) 5 ml PO QID PRN PRN Reason: Dry Mouth Stop: 12/09/18 13:01 Last Admin: 06/09/18 11:04 Dose: 5 ml Omeprazole (Prilosec) 40 mg PO DAILY TIM Stop: 12/06/18 09:01 Last Admin: 06/09/18 09:16 Dose: 40 mg Ondansetron HCl (Zofran) 4 mg IVP Q8HR PRN PRN Reason: Nausea And Vomiting Stop: 12/05/18 09:01 Pharmacy Profile Note (Patient Taking Own Medication) 0 each PO DAILY TIM Stop: 12/06/18 09:01 Last Admin: 06/09/18 09:18 Dose: Not Given Pharmacy Profile Note (Patient Taking Own Medication) 0 each PO HS TIM Stop: 12/05/18 21:01 Last Admin: 06/09/18 21:25 Dose: 1 each Pharmacy Profile Note (Patient Taking Own Medication) 1 each IH BIDR TIM Stop: 12/05/18 10:01 Last Admin: 06/10/18 07:54 Dose: 1 each Pharmacy Profile Note (Patient Taking Own Medication) 2 each IH HS TIM Stop: 12/05/18 21:01 Last Admin: 06/09/18 20:12 Dose: 2 each Promethazine HCl (Phenergan) 12.5 mg IVP Q6HR PRN PRN Reason: Nausea And Vomiting Stop: 12/05/18 09:01 Vitamin D (Vitamin D) 1,000 unit PO DAILY TIM Stop: 12/06/18 09:01 Last Admin: 06/09/18 09:17 Dose: 1,000 unit Warfarin Sodium (Coumadin Perpt) 1 each PO DAILY@1800 PRN PRN 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 fib in the 90s to 100s, no significant events noted) Consult Discharge Plan - Plan Referrals: Lisbet Ray, [employer] [Primary Care Provider] - <Aj Virk - Last Filed: 06/10/18 11:09> Date of Encounter: 06/10/18 - Attending Attestation I have personally performed a face to face evaluation on this patient. I have reviewed and agree with the care plan. History and Exam by me shows: Recurrent PAF, likely secondary to COPD exacerbation. Would recommend restart rythmol and ZOILA/CV. If unsuccessful would consider tikosyn down the road. Assessment and Plan Discussion w patient/family: The assessment and plan as outlined above was discussed with the patient and/or family members who expressed understanding and agreement. All questions were answered. Thank you for involving us in the care of your patient. Please call with any questions. History of Present Illness History of present illness: Ms. Guevara is a 67 year old female All Systems Review: The remainder of the systems were reviewed and are negative Physical Examination Vital Signs, Last 4 Hours Temp Pulse Resp BP Pulse Ox 06/10/18 07:54 16 97 06/10/18 07:32 98.0 F 86 18 92/83 95 Results 06/08/18 04:28 06/09/18 02:31 Lab Results 06/10/18 02:15 INR 3.0 D
[2018-06-10] MEDS: Insulin LISPRO 300 UNITS/3 ML VIAL SQ SCH ×6 (11:17→19:56)
[2018-06-10] MEDS: Insulin DETEMIR 100 UNIT/ML X5UNITS SQ SCH ×2 (11:19→20:43)
[2018-06-10] MEDS: *HR* Digoxin 0.125 MG TABLET PO SCH (11:37)
[2018-06-10] MEDS: Furosemide 40 MG/4 ML VIAL IVP SCH (11:37)
[2018-06-10] MEDS: Diltiazem CD (24hr) 180 MG CAPSULE PO SCH (11:37)
[2018-06-10] MEDS: (Cyanocobalamin (Vitamin B-12) [Vitamin B-12] 100 MCG PO SCH (11:38)
[2018-06-10] MEDS: Ascorbic Acid 500 MG TABLET PO SCH (11:40)
[2018-06-10] MEDS: Cholecalciferol (D-3) 1,000 UNIT TABLET PO SCH (11:40)
--- NOTE | 2018-06-10 11:40 | Event Note ---
Date of Encounter: 06/10/18 Time of Encounter: 11:30 - Cardiology Event Note Discussed and reviewed with Dr. Aj Virk, options of rate control strategy (patient declined) vs. options regarding rhythm control strategy-- we discussed options for resuming previous regimen attempting ZOILA cardioversion tomorrow or initiation of Tikosyn. Patient agreeable to attempt to resume previous regimen-- has missed doses recently during hospital stays (not at home); medical records reviewed and previously had been sinus rhythm. Regarding ablation, patient deemed high risk for cryoablation at [facility] due to concerns of respiratory status and intubation. Will resume home dose of Rythmol SR 225mg PO every 12 hours. Plan for ZOILA/DCCV tomorrow if needed. Continue coumadin.
[2018-06-10] MEDS: RYTHMOL PO SCH ×2 (12:14→18:25)
--- NOTE | 2018-06-10 13:14 | Internal Med Progress Note ---
Hospitalist Progress Note - Encounter Date of Encounter: 06/10/18 Time of Encounter: 13:09 - Subjective Interval History: Evaluated at bedside, she reported feeling short of breath because she was trying to walk to the windows in the room. Denies lightheadedness or dizziness. Denies chest pain. - Exam Vitals: Temp Pulse Resp BP Pulse Ox 98.0 F 106 18 165/68 97 06/10/18 11:11 06/10/18 11:11 06/10/18 11:11 06/10/18 11:11 06/10/18 11:11 Exam: General: Alert and oriented x4. In mild distress due to shortness of breath. Skin: Normal color, no rash, no lesions. HEENT: EOM, pupils equal, round and reactive. Cardiovascular: Irregularly irregular, Normal S1 & S2, no rubs, murmurs or gallops. Short neck unable to access JVD Lungs: Decrease breath sounds b/l, no wheezes or crackles. Abdomen: Obese, Soft, non-tender, no rigidity. Extremities: 2+ edema in the lower extr b/l. Neurological: Normal cognition and motor skills. Rest of the physical exam is non contributory - Assessment and Plan (1) Atrial fibrillation Current Visit: Yes Status: Chronic Assessment and Plan: HR fluctuating from 90s- mid 100s Plan evaluated by the EP, recommended to restart patient on rythmol SR 225mg/PO Q12HRs possible ZOILA/DCCV tomorrow On warfarin per pharmacy dosing dc heparin drip as warfarin is therapeutic on cardizem 360mg/PO and digoxin 0125mg/PO daily (2) Acute exacerbation of chronic obstructive airways disease Current Visit: No Status: Resolved Assessment and Plan: chest is clear to auscultation. Plan titrate O2Sat >92% On 4-5 litters of O2 by nasal cannula Duo-Nebs Q4RT Scheduled onsingular 10mg/PO daily Incentive spirometry (3) Essential hypertension Current Visit: No Status: Chronic Assessment and Plan: BP well controlled. Patient on Cardizem 360mg/PO,, lisinopril 2.5mg/PO daily and furosemide 40mg/IV daily (4) GERD (gastroesophageal reflux disease) Current Visit: No Status: Chronic Assessment and Plan: continue [id number]/PO daily (5) Anemia Current Visit: No Status: Chronic Assessment and Plan: H&H stable. No signs of active bleeding will continue to monitor transfuse if Hb <7, hct <23 or patient becomes symptomatic Ferrous sulfate 325mg/PO daily (6) Congestive heart failure Current Visit: No Status: Chronic Assessment and Plan: chest clear to auscultation. 2+ pitting edema in the lower extre. 3 litters negative balance. Plan: strict intake and output water restriction to 1.5 litters a day lisinopril 2.5mg/PO daily daily weight (7) Prediabetes Current Visit: Yes Status: Acute Assessment and Plan: blood sugar well controlled. continue levemir 25 units BID On lispro medium dose sliding scale Lispro 7 units AC carb controlled diet. (8) Morbid obesity with BMI of 60.0-69.9, adult Current Visit: No Status: Chronic DVT Prophylaxis: On warfarin with a therapeutic INR - Summary of Assessment and Plan Summary of Assessment and Plan: Patient to remain in the hospital scheduled for possible cardioversion tomorrow. - Time Spent with Patient Total time spent is greater than 50% in coordination of care (as documented) at patient's floor/unit and/or counseling patient: Greater than 35 minutes (45) Plan of Care Discussed with: patient (and the nurse.) Internal Medicine: Result - Labs CBC & Chem 7: 06/08/18 04:28 06/09/18 02:31 - ABG Interpretation ABG results: ABG ABG pH 7.43 pH Units (7.32-7.45) 06/09/18 11:52 ABG pCO2 68 mmHg (35-45) H 06/09/18 11:52 ABG pO2 131 mmHg (85-104) H 06/09/18 11:52 ABG O2 Saturation 99 % (95-98) H 06/09/18 11:52 PT/INR, D-dimer PT 34.2 Seconds (9.4-12.1) H D 06/10/18 02:15 Consult Discharge Plan - Plan Referrals: Lisbet Ray, [employer] [Primary Care Provider] - (1) Atrial fibrillation Qualifiers: Atrial fibrillation type: paroxysmal Qualified Code(s): I48.0 - Paroxysmal atrial fibrillation (4) GERD (gastroesophageal reflux disease) Qualifiers: Esophagitis presence: without esophagitis Qualified Code(s): K21.9 - Gastro- esophageal reflux disease without esophagitis (5) Anemia Qualifiers: Anemia type: unspecified type Qualified Code(s): D64.9 - Anemia, unspecified (6) Congestive heart failure Qualifiers: Heart failure type: diastolic Heart failure chronicity: chronic Qualified Code(s): I50.32 - Chronic diastolic (congestive) heart failure
[2018-06-10] MEDS: SPIRIVA RESPIMAT IH SCH (20:01)
[2018-06-10] MEDS: (Ropinirole Hcl [Requip Xl] 4 MG) PO SCH (20:54)
[2018-06-11] MEDS: RYTHMOL PO SCH (06:36)
[2018-06-11 07:18] LABS: Basophils % 0.4 %; Eosinophils # 0.1 K/mcL (0.0-0.6); Eosinophils % 1.2 %; Hematocrit 32.2 % (35.3-44.9); Hemoglobin 8.8 g/dL (11.5-15.4); Lymphocytes # 1.3 K/mcL (0.6-4.6); Lymphocytes % 17.6 %; Mean Corpuscular HGB Conc 27.3 g/dL (31.6-35.5); Mean Corpuscular Volume 84.3 fL (83.0-100.0); Mean Platelet Volume 11.7 fL (9.4-12.4); Monocytes # 0.7 K/mcL (0.0-1.3); Neutrophils # 5.2 K/mcL (1.6-8.9); Platelet Count 180 K/mcL (140-400); Red Blood Count 3.82 M/mcL (3.82-4.97); Red Cell Distribution Width 15.9 % (11.5-14.5); Segmented Neutrophils % 68.8 %
[2018-06-11 07:28] LABS: INR 2.3; Prothrombin Time 26.3 Seconds (9.4-12.1)
[2018-06-11 07:34] LABS: BUN/Creatinine Ratio 51 (6-26); Blood Urea Nitrogen 40 mg/dL (8-23); Calcium 9.5 mg/dL (8.6-10.3); Carbon Dioxide 36 mEq/L (23-29); Chloride 97 mEq/L (98-107); Glucose 143 mg/dL (70-105); Magnesium 2.2 mg/dL (1.6-2.6); Osmolality,Calculated 304 (280-300); Phosphorous 3.7 mg/dL (2.7-4.5); Potassium 4.2 mEq/L (3.5-5.1); Sodium 141 mEq/L (136-145); eGFR For Non-African Americans > 60 (> 60)
[2018-06-11] MEDS: Insulin LISPRO 300 UNITS/3 ML VIAL SQ SCH ×2 (07:53)
[2018-06-11 07:57] LABS: Hypochromasia Present (Not Present); Platelet Estimate Normal (Normal)
--- NOTE | 2018-06-11 08:26 | Event Note ---
Date of Encounter: 06/11/18 Time of Encounter: 08:25 - Cardiology Event Note Telemetry reviewed with average heart rate is 12 hours 99, remains atrial fibrillation, currently 80s to 90s. Status post 3 doses of Rythmol 225 mg sustained release every 12 hours. ECG today shows: afib 90's with QRS = 89ms. Plan for ZOILA/DC cardioversion today per previous discussion with Dr. Aj Virk. Will need ZOILA since Coumadin recently off. All questions answered. Laboratory Tests 06/11/18 07:04 INR 2.3
[2018-06-11] MEDS: Furosemide 40 MG/4 ML VIAL IVP SCH (09:26)
[2018-06-11] MEDS: *HR* Digoxin 0.125 MG TABLET PO SCH (09:27)
[2018-06-11] MEDS: Diltiazem CD (24hr) 180 MG CAPSULE PO SCH (09:27)
[2018-06-11] MEDS: Cholecalciferol (D-3) 1,000 UNIT TABLET PO SCH (09:27)
[2018-06-11] MEDS: Ascorbic Acid 500 MG TABLET PO SCH (09:27)
[2018-06-11] MEDS: Insulin DETEMIR 100 UNIT/ML X5UNITS SQ SCH (09:28)
[2018-06-11] MEDS: (Cyanocobalamin (Vitamin B-12) [Vitamin B-12] 100 MCG PO SCH (09:28)
[2018-06-11] MEDS ORDERED: Lidocaine Viscous Oral Soln 15 ML SOLUTION MM PRN (10:49)
[2018-06-11] MEDS ORDERED: Tetracaine/Benzocaine/Butamben 1 SPRAY AEROSOL MM ONE (10:50)
[2018-06-11] MEDS ORDERED: 0.9 % Sodium Chloride 500 ML IVC ONE (10:50)
[2018-06-11] MEDS: ADVAIR 250/50 IH SCH (11:30)
[2018-06-11 11:38] VITALS: BP 161/87
[2018-06-11] MEDS: *HR* Midazolam HCl 5 MG/5 ML VIAL IVP PRN ×3 (11:50→12:09)
[2018-06-11] MEDS: *HR* FentaNYL (PF) 100 MCG/2 ML VIAL IVP PRN ×3 (11:50→12:09)
--- NOTE | 2018-06-11 13:46 | Event Note ---
Date of Encounter: 06/11/18 Time of Encounter: 13:45 - Cardiology Event Note Status post ZOILA/DC cardioversion with conversion to sinus rhythm with one shock per discussion with Dr. White. Continue with antiarrhythmic and anticoagulation. Cardiology will sign offf, follow-up arranged, reconsult as needed. Anticipate potential discharge home later today.
--- NOTE | 2018-06-11 14:19 | Discharge Summary ---
- NOTES TO OUTPATIENT PROVIDER Notes to Outpatient Provider: Follow-up with cardiology as an outpatient Orders not resulted at time of discharge: Pending orders 06/11/18 08:24 ECG 12 lead ECG [ECG] Stat 06/11/18 10:08 EKG [ECG 12 lead ECG] [ECG] Stat 06/12/18 04:00 PT/INR [Prothrombin Time INR] [COAG] AM 0400 06/13/18 04:00 PT/INR [Prothrombin Time INR] [COAG] AM 0400 06/14/18 04:00 PT/INR [Prothrombin Time INR] [COAG] AM 0400 Date of Encounter: 06/11/18 Time of Encounter: 11:00 - Discharge Diagnosis (1) GERD (gastroesophageal reflux disease) Priority: Primary Status: Chronic Qualifiers: Esophagitis presence: without esophagitis Qualified Code(s): K21.9 - Gastro-esophageal reflux disease without esophagitis (2) Essential hypertension Priority: Primary Status: Chronic (3) Acute exacerbation of chronic obstructive airways disease Priority: Primary Status: Resolved (4) Atrial fibrillation Priority: Primary Status: Chronic Qualifiers: Atrial fibrillation type: paroxysmal Qualified Code(s): I48.0 - Paroxysmal atrial fibrillation (5) Congestive heart failure Priority: Primary Status: Chronic Qualifiers: Heart failure type: diastolic Heart failure chronicity: chronic Qualified Code(s): I50.32 - Chronic diastolic (congestive) heart failure (6) Anemia Priority: Secondary Status: Chronic Qualifiers: Anemia type: unspecified type Qualified Code(s): D64.9 - Anemia, unspecified (7) Morbid obesity with BMI of 60.0-69.9, adult Priority: Secondary Status: Chronic (8) Prediabetes Priority: Secondary Status: Acute Hospital course: Patient is a 67-year-old female with past medical history significant for COPD, G.I. bleed, chronic anemia, atrial fibrillation not on any anticoagulation due to G.I. bleed in the past, chronic hypoxic respiratory failure on 5 lit oxygen dependent at home, morbidly obese patient presented emergency room due to palpitations and worsening shortness of breath. In the ER, patient was found to have atrial fibrillation with RVR in addition to vascular congestion on chest x-ray. Patient was admitted to medical surgical floor for further management. Patients hospital stay cardiology was consulted with recommendations to consult EP for cardioversion. Recommendations also to start patient on Cardizem and digoxin while discontinuing Rythmol. Further recommendations for patient to restart Coumadin due to [id number] (Age, Female, HTN). Patient was also treated for acute on chronic diastolic heart failure with IV Lasix. She was successfully cardioverted by EP and will be discharged to follow-up with cardiology as an outpatient. - Time Spent with Patient Total time spent providing and/or coordinating discharge services: Less than 30 minutes - Discharge Medications Prescriptions: Digoxin [Lanoxin] 0.125 mg PO DAILY 30 Days #30 tablet Diltiazem CD (24hr) [Cardizem CD] 360 mg PO DAILY #30 cap.er.24h Warfarin [Coumadin] 5 mg PO 1800 #30 tablet Home Medications: Alendronate Sodium [Fosamax] 70 mg PO WE 10/28/15 [History] Ascorbate Calcium [Vitamin C] 500 mg PO DAILY 10/28/15 [History] Cyanocobalamin (Vitamin B-12) [Vitamin B-12] 100 mcg PO DAILY 10/28/15 [History] Tiotropium [Spiriva] 2 puff PO HS 10/28/15 [History] Ferrous Sulfate [Iron] 325 mg PO DAILY 07/03/16 [History] Albuterol Sulfate [Proventil Hfa] 2 puff IH Q4H PRN 09/14/16 [History] Oxygen 3 l IH AD 10/24/16 [History] Fluticasone/Salmeterol [Advair 250-50 Diskus] 1 puff IH BID #1 blst.w.dev 11/16/16 [Rx] Montelukast [Singulair] 10 mg PO DAILY 11/29/16 [History] Calcium Carbonate [Calcium] 600 mg PO BID 05/08/17 [History] Acetaminophen/Diphenhydramine [Percogesic 325-12.5 mg Tablet] 1 - 2 tab PO HS PRN 07/19/17 [History] Cholecalciferol (D-3) [Vitamin D] 5,000 unit PO DAILY 03/14/18 [History] Lisinopril 2.5 mg PO DAILY 03/14/18 [History] Furosemide [Lasix] 20 mg PO HS 05/08/18 [History] Furosemide [Lasix] 40 mg PO DAILY 05/08/18 [History] Omeprazole [PriLOSEC] 40 mg PO DAILY #30 cap 05/15/18 [Rx] Ropinirole HCl [Requip Xl] 4 mg PO HS 06/04/18 [History] Digoxin [Lanoxin] 0.125 mg PO DAILY 30 Days #30 tablet 06/11/18 [Rx] Diltiazem CD (24hr) [Cardizem CD] 360 mg PO DAILY #30 cap.er.24h 06/11/18 [Rx] Warfarin [Coumadin] 5 mg PO 1800 #30 tablet 06/11/18 [Rx] Allergies/Adverse Reactions: Allergy/AdvReac Type Severity Reaction Status Date / Time aspirin [ASA] Allergy Difficulty Verified 03/14/18 13:43 Breathing Penicillins Allergy Hives Verified 03/14/18 13:43 Sulfa (Sulfonamide Allergy Rash Verified 03/14/18 13:43 Antibiotics) Date of admission: 06/05/18 09:00 Primary care physician: Lisbet Ray CNP Consults: 06/05/18 09:07 Consult to Cardiology [CONS] Routine Comment: Consulting Provider: Cardiology [place] Reason for Consult: Afib with RVR.. Need help for anti coagulation too. Call Completed: No 06/08/18 10:53 Consult to Cardiology [CONS] Routine Comment: Consulting Provider: [facility] [place] Reason for Consult: A-Fib Call Completed: Yes 06/09/18 10:44 Consult to Electrophysiology (EP) [CONS] Routine Consulting Provider: Electrophysiology [place] Reason for Consult: PAF Call Completed: Yes - Constitutional Vitals: Temp Pulse Resp BP Pulse Ox 97.8 F 100 18 161/87 92 06/11/18 11:24 06/11/18 11:24 06/11/18 11:24 06/11/18 11:24 06/11/18 11:24 General appearance: Present: cooperative, mild distress, A&O X 3, answers questions appropriately Exam: Gen.: Nonacute distress, alert and oriented 3 Skin: Normal color - Patient Status Disposition: Home Health Service Condition: Fair - Discharge Instructions Instructions: Diltiazem (By mouth), Digoxin (By mouth), Warfarin (By mouth), Atrial Fibrillation (DC), Acute Respiratory Distress Syndrome (DC) Follow Up With: Lisbet Ray CNP [Primary Care Provider] -
--- NOTE | 2018-06-11 14:33 | Physician Discharge Referral ---
Home Health/Hosp Referral Info Transfer to: Home Health - Diagnosis (1) GERD (gastroesophageal reflux disease) Status: Chronic (2) Essential hypertension Status: Chronic (3) Acute exacerbation of chronic obstructive airways disease Status: Resolved (4) Atrial fibrillation Status: Chronic (5) Congestive heart failure Status: Chronic (6) Anemia Status: Chronic (7) Morbid obesity with BMI of 60.0-69.9, adult Status: Chronic (8) Prediabetes Status: Acute - Respiratory Orders Smoking Cessation: Smoking cessation has been advised. For more information, call the [place] Tobacco Quit Line at 5-946-JMDR-NOW. - Services Needed Following services are medically necessary services: Nursing, Physical Therapy, Occupational Therapy - Transfer Medications Prescriptions: Digoxin [Lanoxin] 0.125 mg PO DAILY 30 Days #30 tablet Diltiazem CD (24hr) [Cardizem CD] 360 mg PO DAILY #30 cap.er.24h Warfarin [Coumadin] 5 mg PO 1800 #30 tablet Home Medications: Alendronate Sodium [Fosamax] 70 mg PO WE 10/28/15 [History] Ascorbate Calcium [Vitamin C] 500 mg PO DAILY 10/28/15 [History] Cyanocobalamin (Vitamin B-12) [Vitamin B-12] 100 mcg PO DAILY 10/28/15 [History] Tiotropium [Spiriva] 2 puff PO HS 10/28/15 [History] Ferrous Sulfate [Iron] 325 mg PO DAILY 07/03/16 [History] Albuterol Sulfate [Proventil Hfa] 2 puff IH Q4H PRN 09/14/16 [History] Oxygen 3 l IH AD 10/24/16 [History] Fluticasone/Salmeterol [Advair 250-50 Diskus] 1 puff IH BID #1 blst.w.dev 11/16/16 [Rx] Montelukast [Singulair] 10 mg PO DAILY 11/29/16 [History] Calcium Carbonate [Calcium] 600 mg PO BID 05/08/17 [History] Acetaminophen/Diphenhydramine [Percogesic 325-12.5 mg Tablet] 1 - 2 tab PO HS PRN 07/19/17 [History] Cholecalciferol (D-3) [Vitamin D] 5,000 unit PO DAILY 03/14/18 [History] Lisinopril 2.5 mg PO DAILY 03/14/18 [History] Furosemide [Lasix] 20 mg PO HS 05/08/18 [History] Furosemide [Lasix] 40 mg PO DAILY 05/08/18 [History] Omeprazole [PriLOSEC] 40 mg PO DAILY #30 cap 05/15/18 [Rx] Ropinirole HCl [Requip Xl] 4 mg PO HS 06/04/18 [History] Digoxin [Lanoxin] 0.125 mg PO DAILY 30 Days #30 tablet 06/11/18 [Rx] Diltiazem CD (24hr) [Cardizem CD] 360 mg PO DAILY #30 cap.er.24h 06/11/18 [Rx] Warfarin [Coumadin] 5 mg PO 1800 #30 tablet 06/11/18 [Rx] Allergies/Adverse Reactions: Allergy/AdvReac Type Severity Reaction Status Date / Time aspirin [ASA] Allergy Difficulty Verified 03/14/18 13:43 Breathing Penicillins Allergy Hives Verified 03/14/18 13:43 Sulfa (Sulfonamide Allergy Rash Verified 03/14/18 13:43 Antibiotics) Certification: Further, I certify that my clinical findings support that this patient is homebound (i.e. absences from home require considerable and taxing effort and are for medical reasons or amish services or infrequently or short duration when for other reasons) because: Homebound Reason: Patient requires assistance of a person or device to safely leave home Attestation: My signature below is to certify that this patient is under my care and that I, or nurse practitioner, or a physician's health assistant working with me, has a [id number] encounter with this patient.
--- NOTE | 2018-06-11 17:10 | Electrocardiograph Report ---
[address] [place] [address] Test Date: 2018-06-11 Pat Name: Alyssa Guevara Department: 111 Room: 2N5 Gender: Spring Encaser: : 1950 Requested By: Jose Enrique Garcia Order Number: [id number] Reading MD: Lizeth Virk Measurements Intervals [place] Rate: 94 P: [place]: 0 QRS: 39 QRSD: 89 T: 2 QT: 318 QTc: 370 Interpretive Statements ATRIAL FIBRILLATION POSSIBLE RIGHT VENTRICULAR CONDUCTION DELAY NONSPECIFIC ST & T-WAVE ABNORMALITY ABNORMAL RHYTHM ECG Electronically Signed On 06-11-2018 17:08:48 EST by Lizeth Virk
--- NOTE | 2018-06-11 17:12 | Electrocardiograph Report ---
[place] [address] Test Date: 2018-06-11 Pat Name: Alyssa Guevara Department: 111 Room: 2N5 Gender: F Sort Line: : 1950 Requested By: Deon Mohan Order Number: [id number] Reading MD: Lizeth Virk Measurements Intervals [place] Rate: 92 P: ID: 0 QRS: 28 QRSD: 89 T: 9 QT: 341 QTc: 391 Interpretive Statements ATRIAL FIBRILLATION POSSIBLE RIGHT VENTRICULAR CONDUCTION DELAY NONSPECIFIC ST & T-WAVE ABNORMALITY ABNORMAL RHYTHM ECG Electronically Signed On 06-11-2018 17:10:24 EST by Lizeth Virk
[2018-06-11] MEDS ORDERED: *HR* Warfarin 5 MG TABLET PO ONE (18:00)
== END 2018-06-11 18:12 | disposition home health service (06) | DRG 308 ==
LOC: 3BNU 18:24 → EMEROOARM 18:24 → 3BNU 22:41 → SUATTDRO 06-05 09:00 → 2NENU 06-05 16:31
PROVIDERS: ADMIT Family Medicine; ATTEND Hospitalist

== ENCOUNTER 2018-06-20 12:50 | Inpatient (IN) ==
[2018-06-20] MEDS ORDERED: Nitroglycerin 25 MG/250 ML INFUS..BTL IVC ONE (13:10)
[2018-06-20] MEDS ORDERED: Ipratropium/Albuterol Neb 3 ML IH ONE (13:18)
[2018-06-20] MEDS ORDERED: Nitroglycerin 25 MG/250 ML INFUS..BTL IVC SCH (13:30)
[2018-06-20 13:35] LABS: ABG Base Excess 12 mEq/L (-2 to 3); ABG HCO3 43 mEq/L (21-27); ABG Oxygen Saturation 93 % (95-98); ABG PCO2 110 mmHg (35-45); ABG PO2 87 mmHg (85-104); ABG TCO2 46 mEq/L (20-26); Blood Gas Modality BiLevel
[2018-06-20 13:41] LABS: Eosinophils % 0.2 %; Platelet Count 221 K/mcL (140-400); Red Cell Distribution Width 16.3 % (11.5-14.5)
[2018-06-20 13:43] LABS: Basophils # 0.1 K/mcL (0.0-0.2); Basophils % 0.4 %; Hematocrit 30.7 % (35.3-44.9); Hemoglobin 8.4 g/dL (11.5-15.4); Immature Granulocytes % 2.8 % (0-4); Lymphocytes # 1.2 K/mcL (0.6-4.6); Mean Corpuscular HGB Conc 27.4 g/dL (31.6-35.5); Mean Corpuscular Hemoglobin 23.9 pg (28.0-33.3); Mean Corpuscular Volume 87.5 fL (83.0-100.0); Mean Platelet Volume 11.5 fL (9.4-12.4); Monocytes # 1.3 K/mcL (0.0-1.3); Monocytes % 7.8 %; Red Blood Count 3.51 M/mcL (3.82-4.97); Segmented Neutrophils % 81.8 %
--- NOTE | 2018-06-20 13:46 | Emergency Department Note ---
Disposition Clinical Impression: Acute pulmonary edema, Hypertensive crisis, Hyperglycemia Acute respiratory failure Qualifiers: Respiratory failure complication: hypoxia and hypercapnia Qualified Code(s): J96.01 - Acute respiratory failure with hypoxia Leukocytosis Qualifiers: Leukocytosis type: unspecified Qualified Code(s): D72.829 - Elevated white blood cell count, unspecified Anemia Qualifiers: Anemia type: unspecified type Qualified Code(s): D64.9 - Anemia, unspecified Disposition: Admitted As Inpatient Condition: Serious Referrals: NONE,PCP [Primary Care Provider] - Forms: ED Satisfaction Letter SOB HPI - General Chief Complaint: ED Shortness of Breath/Dyspnea Stated Complaint: Fall Time Seen by Provider: 06/20/18 12:52 Source: EMS Mode of arrival: EMS Limitations: no limitations Nursing Notes Reviewed: Yes Vital Signs Reviewed: Yes - History of Present Illness 67-year-old female history of oxygen-dependent COPD, CHF who presents to the ER via EMS with 2 days of shortness of breath. As per EMS she was found in the floor. States that she slid down off her couch. No head injury. She was recently diagnosed with a UTI and treated. Worsening shortness of breath today which prompted her to be brought here. Upon arrival she is 27% on room air with a good waveform. The patient was moved to the critical care room for further management. She reports chest pain as well as subjective fevers at home with a productive cough. Pt Subjective Complaint: shortness of breath Onset (ago): day(s) Context: recent illness Severity: severe Consistency/Duration: gradually worsening Improves with: nothing Worsens with: nothing Known history of: COPD, congestive heart failure Associated symptoms: Reports: chest pain, fever, cough Treatment prior to arrival: oxygen, bronchodilator Cough present: Yes Cough Description: Involuntary Cough Frequency: Intermittent - Related Data Home oxygen amount: 4 liters Home Medications Medication Instructions Recorded Confirmed Alendronate Sodium [Fosamax] 70 mg PO WE 10/28/15 06/04/18 Ascorbate Calcium [Vitamin C] 500 mg PO DAILY 10/28/15 06/04/18 Cyanocobalamin (Vitamin B-12) 100 mcg PO DAILY 10/28/15 06/04/18 [Vitamin B-12] Tiotropium [Spiriva] 2 puff PO HS 10/28/15 06/04/18 Ferrous Sulfate [Iron] 325 mg PO DAILY 07/03/16 06/04/18 Albuterol Sulfate [Proventil Hfa] 2 puff IH Q4H PRN 09/14/16 06/04/18 Oxygen 3 l IH AD 10/24/16 06/04/18 Montelukast [Singulair] 10 mg PO DAILY 11/29/16 06/04/18 Calcium Carbonate [Calcium] 600 mg PO BID 05/08/17 06/04/18 Acetaminophen/Diphenhydramine 1 - 2 tab PO HS PRN 07/19/17 06/04/18 [Percogesic 325-12.5 mg Tablet] Cholecalciferol (D-3) [Vitamin D] 5,000 unit PO DAILY 03/14/18 06/04/18 Lisinopril 2.5 mg PO DAILY 03/14/18 06/04/18 Furosemide [Lasix] 20 mg PO HS 05/08/18 06/04/18 Furosemide [Lasix] 40 mg PO DAILY 05/08/18 06/04/18 Ropinirole HCl [Requip Xl] 4 mg PO HS 06/04/18 06/04/18 Previous Rx's Medication Instructions Recorded Fluticasone/Salmeterol [Advair 1 puff IH BID #1 blst.w.dev 11/16/16 250-50 Diskus] Omeprazole [PriLOSEC] 40 mg PO DAILY #30 cap 05/15/18 Digoxin [Lanoxin] 0.125 mg PO DAILY 30 Days #30 06/11/18 tablet Diltiazem CD (24hr) [Cardizem CD] 360 mg PO DAILY #30 cap.er.24h 06/11/18 Warfarin [Coumadin] 5 mg PO 1800 #30 tablet 06/11/18 Allergies Allergy/AdvReac Type Severity Reaction Status Date / Time aspirin [ASA] Allergy Difficulty Verified 03/14/18 13:43 Breathing Penicillins Allergy Hives Verified 03/14/18 13:43 Sulfa (Sulfonamide Allergy Rash Verified 03/14/18 13:43 Antibiotics) All systems ED: reviewed and negative except as stated. Constitutional: Reports: fever, chills Cardiovascular: Reports: chest pain Respiratory: Reports: cough, dyspnea, sputum production Gastrointestinal: Denies: abdominal pain, nausea, vomiting Past Medical History - Past Medical History Attestation: Yes The following information was validated with the patient. Source: patient Medical history: Reports: asthma, atrial fibrillation, CHF, COPD, GERD, hypertension, migraine Surgical history: Reports: cholecystectomy, hysterectomy Psychiatric history: Reports: no psych history HULL SORTER history: Reports: no HULL SORTER history - Social History Smoking Status: Former smoker Smokeless Tobacco Status: No Alcohol use: Reports: none Drug use: Reports: none Physical Exam - General Limitations: no limitations General appearance: alert, in distress - Head Head exam: atraumatic, normocephalic - Eye Eye exam: Present: normal appearance - ENT ENT exam: normal exam - Neck Neck exam: Present: normal inspection - Chest Chest inspection: Present: normal inspection, symmetric chest wall rise - Respiratory Respiratory exam: Present: respiratory distress, accessory muscle use, other (Minimal air excursion) - Cardiovascular Cardiovascular exam: Present: normal rhythm, tachycardia, normal heart sounds - Abdominal Exam Abdominal exam: Present: soft, Non-Tender. Absent: tenderness, distention, rigidity - Extremities Exam Extremities exam: Present: normal inspection, full ROM - Expanded Upper Extremity Exam Shoulder exam: Present: normal inspection, full ROM Arm exam: Present: normal inspection, full ROM Elbow exam: Present: normal inspection, full ROM Forearm/Wrist exam: Present: normal inspection, full ROM Hand exam: Present: normal inspection, full ROM - Expanded Lower Extremity Exam Hip/Pelvis exam: Present: normal inspection, full ROM Upper leg exam: Present: normal inspection, full ROM Knee exam: Present: normal inspection, full ROM Lower leg exam: Present: normal inspection, full ROM, swelling Ankle exam: Present: normal inspection, full ROM Foot/toe exam: Present: normal inspection, full ROM - Skin Skin exam: Present: warm, dry Course Course Narrative: Patient seen and examined at time of arrival. 27% with a dusky appearance. She was placed on a nonrebreather with improvement to 88%. The patient was then moved to the critical care room for sensitive efforts. Respiratory therapy was called and the patient was placed on BiPAP. Bedside chest x-ray demonstrates significant pulmonary edema. She is also noted to be hypertensive here. Plan to start on BiPAP as well as nitroglycerin infusion. The cutter operator tile was in the emergency department at the time of the patient's arrival and evaluated the patient at bedside. The patient will be dispositioned to the intensive care unit once her imaging labs are resulted. - Reevaluation(s) Reevaluation #1: The patient appears markedly improved on reexamination. Oxygen saturation is appropriate on BiPAP. Her ABG does demonstrate a significant hypercapnic respiratory acidosis Reevaluation #2: The patient appears well at this time. She is alert related to questions verbally. Requested her be called. Plan to admit to the intensive care unit. Vital Signs Temperature 98.7 F 06/20/18 13:24 Pulse Rate 110 06/20/18 13:24 Respiratory Rate 26 06/20/18 13:24 Blood Pressure 182/154 06/20/18 13:24 O2 Sat by Pulse Oximetry 82 06/20/18 13:24 Temperature 99.1 F 06/20/18 14:38 Pulse Rate 120 06/20/18 14:45 Respiratory Rate 18 06/20/18 14:45 Blood Pressure 146/103 06/20/18 14:45 O2 Sat by Pulse Oximetry 100 06/20/18 14:45 Oxygen Delivery Oxygen Delivery Bipap Shortness of Breath/Dyspnea - [facility] Narrative Medical decision making narrative: 67-year-old female presenting for acute respiratory failure. Patient noted to be hypertensive upon arrival with evidence of pulmonary edema with concern for hypertensive crisis with resultant flash pulmonary edema. The patient was placed on noninvasive positive pressure ventilation as well as nitroglycerin infusion which improved her symptoms dramatically. Her EKG is without ischemic findings. Labs demonstrate hypercapnic respiratory acidosis. The patient will be admitted to the intensive care unit for further evaluation and management. - Lab Data Lab results reviewed: Yes I reviewed the patient's lab results. Result diagrams: 06/20/18 13:14 06/20/18 13:14 Lab Results 06/20/18 06/20/18 06/20/18 Range/Units 13:14 13:14 13:14 WBC 17.1 H (4.3-11.1) K/mcL RBC 3.51 L (3.82-4.97) M/mcL Hgb 8.4 L (11.5-15.4) g/dL Hct 30.7 L (35.3-44.9) % MCV 87.5 (83.0-100.0) fL MCH 23.9 L (28.0-33.3) pg MCHC 27.4 L (31.6-35.5) g/dL RDW 16.3 H (11.5-14.5) % Plt Count 221 (140-400) K/mcL MPV 11.5 (9.4-12.4) fL Immature Gran % 2.8 (0-4) % Seg Neutrophils % 81.8 % Lymphocytes % 7.0 % Monocytes % 7.8 % Eosinophils % 0.2 % Basophils % 0.4 % Neutrophils # 14.0 H (1.6-8.9) K/mcL Lymphocytes # 1.2 (0.6-4.6) K/mcL Monocytes # 1.3 (0.0-1.3) K/mcL Eosinophils # 0.0 (0.0-0.6) K/mcL Basophils # 0.1 (0.0-0.2) K/mcL Hypochromasia Present A (Not Present) PT 29.1 H (9.4-12.1) Seconds INR 2.6 APTT 40.8 H (26.0-36.0) Seconds Sample Site ABG pH (7.32-7.45) pH Units ABG pCO2 (35-45) mmHg ABG pO2 (85-104) mmHg ABG HCO3 (21-27) mEq/L ABG Total CO2 (20-26) mEq/L ABG O2 Saturation (95-98) % ABG Base Excess (-2 to 3) mEq/L Deepak Test VBG pH (7.32-7.42) pH Units VBG pCO2 (41-51) mmHg VBG pO2 (25-50) mmHg VBG HCO3 (21-27) mEq/L O2 Delivery Device Blood Gas Modality Inspired O2 (1-15=lpm [id number]=%) Sodium (136-145) mEq/L Potassium (3.5-5.1) mEq/L Chloride (98-107) mEq/L Carbon Dioxide (23-29) mEq/L BUN (8-23) mg/dL Creatinine (0.60-1.20) mg/dL Est GFR ( Amer) (> 60) Est GFR (Non-Af Amer) (> 60) BUN/Creatinine Ratio (6-26) Glucose (70-105) mg/dL Calculated Osmolality (280-300) Lactic Acid 0.6 (0.5-2.2) mmol/L Calcium (8.6-10.3) mg/dL Total Bilirubin (0.3-1.0) mg/dL Direct Bilirubin (0.0-0.2) mg/dL Indirect Bilirubin (0.0-1.2) mg/dL AST (13-39) Units/L ALT (7-52) Units/L Alkaline Phosphatase (34-104) Units/L Troponin I (< 0.04) ng/mL B-Natriuretic Peptide (Less than 100) pg/mL Serum Total Protein (6.4-8.9) g/dL Albumin (3.5-5.7) g/dL Globulin (2.4-3.5) g/dL Albumin/Globulin Ratio (1.1-2.2) Urine Color (Yellow) Urine Clarity (Clear) Urine pH (5.0-8.0) pH Units Ur Specific [place] (1.010-1.025) Urine Protein (Neg-Trace) mg/dL Urine Glucose (UA) (Normal) mg/dL Urine Ketones (Negative) mg/dL Urine Blood (Negative) Urine Nitrite (Negative) Urine Bilirubin (Negative) Urine Urobilinogen (Normal) mg/dL Ur Leukocyte Esterase (Negative) 06/20/18 06/20/18 06/20/18 Range/Units 13:14 13:14 13:32 WBC (4.3-11.1) K/mcL RBC (3.82-4.97) M/mcL Hgb (11.5-15.4) g/dL Hct (35.3-44.9) % MCV (83.0-100.0) fL MCH (28.0-33.3) pg MCHC (31.6-35.5) g/dL RDW (11.5-14.5) % Plt Count (140-400) K/mcL MPV (9.4-12.4) fL Immature Gran % (0-4) % Seg Neutrophils % % Lymphocytes % % Monocytes % % Eosinophils % % Basophils % % Neutrophils # (1.6-8.9) K/mcL Lymphocytes # (0.6-4.6) K/mcL Monocytes # (0.0-1.3) K/mcL Eosinophils # (0.0-0.6) K/mcL Basophils # (0.0-0.2) K/mcL Hypochromasia (Not Present) PT (9.4-12.1) Seconds INR APTT (26.0-36.0) Seconds Sample Site R Radial ABG pH 7.20 L* (7.32-7.45) pH Units ABG pCO2 110 H* (35-45) mmHg ABG pO2 87 (85-104) mmHg ABG HCO3 43 H (21-27) mEq/L ABG Total CO2 46 H (20-26) mEq/L ABG O2 Saturation 93 L (95-98) % ABG Base Excess 12 H (-2 to 3) mEq/L Deepak Test N/A VBG pH (7.32-7.42) pH Units VBG pCO2 (41-51) mmHg VBG pO2 (25-50) mmHg VBG HCO3 (21-27) mEq/L O2 Delivery Device BiPAP Blood Gas Modality BiLevel Inspired O2 60.0 (1-15=lpm [id number]=%) Sodium 140 (136-145) mEq/L Potassium 4.9 (3.5-5.1) mEq/L Chloride 96 L (98-107) mEq/L Carbon Dioxide 40 H* (23-29) mEq/L BUN 27 H (8-23) mg/dL Creatinine 0.82 (0.60-1.20) mg/dL Est GFR ( Amer) > 60 (> 60) Est GFR (Non-Af Amer) > 60 (> 60) BUN/Creatinine Ratio 33 H (6-26) Glucose 236 H (70-105) mg/dL Calculated Osmolality 303 H (280-300) Lactic Acid (0.5-2.2) mmol/L Calcium 9.3 (8.6-10.3) mg/dL Total Bilirubin 0.6 (0.3-1.0) mg/dL Direct Bilirubin 0.2 (0.0-0.2) mg/dL Indirect Bilirubin 0.4 (0.0-1.2) mg/dL AST 20 (13-39) Units/L ALT 37 (7-52) Units/L Alkaline Phosphatase 74 (34-104) Units/L Troponin I < 0.03 (< 0.04) ng/mL B-Natriuretic Peptide 60 (Less than 100) pg/mL Serum Total Protein 6.8 (6.4-8.9) g/dL Albumin 4.0 (3.5-5.7) g/dL Globulin 2.8 (2.4-3.5) g/dL Albumin/Globulin Ratio 1.4 (1.1-2.2) Urine Color (Yellow) Urine Clarity (Clear) Urine pH (5.0-8.0) pH Units Ur Specific [place] (1.010-1.025) Urine Protein (Neg-Trace) mg/dL Urine Glucose (UA) (Normal) mg/dL Urine Ketones (Negative) mg/dL Urine Blood (Negative) Urine Nitrite (Negative) Urine Bilirubin (Negative) Urine Urobilinogen (Normal) mg/dL Ur Leukocyte Esterase (Negative) 06/20/18 06/20/18 Range/Units 13:39 14:43 WBC (4.3-11.1) K/mcL RBC (3.82-4.97) M/mcL Hgb (11.5-15.4) g/dL Hct (35.3-44.9) % MCV (83.0-100.0) fL MCH (28.0-33.3) pg MCHC (31.6-35.5) g/dL RDW (11.5-14.5) % Plt Count (140-400) K/mcL MPV (9.4-12.4) fL Immature Gran % (0-4) % Seg Neutrophils % % Lymphocytes % % Monocytes % % Eosinophils % % Basophils % % Neutrophils # (1.6-8.9) K/mcL Lymphocytes # (0.6-4.6) K/mcL Monocytes # (0.0-1.3) K/mcL Eosinophils # (0.0-0.6) K/mcL Basophils # (0.0-0.2) K/mcL Hypochromasia (Not Present) PT (9.4-12.1) Seconds INR APTT (26.0-36.0) Seconds Sample Site ABG pH (7.32-7.45) pH Units ABG pCO2 (35-45) mmHg ABG pO2 (85-104) mmHg ABG HCO3 (21-27) mEq/L ABG Total CO2 (20-26) mEq/L ABG O2 Saturation (95-98) % ABG Base Excess (-2 to 3) mEq/L Deepak Test VBG pH 7.27 L (7.32-7.42) pH Units VBG pCO2 87 H* (41-51) mmHg VBG pO2 118 H (25-50) mmHg VBG HCO3 40 H (21-27) mEq/L O2 Delivery Device Blood Gas Modality Inspired O2 (1-15=lpm [id number]=%) Sodium (136-145) mEq/L Potassium (3.5-5.1) mEq/L Chloride (98-107) mEq/L Carbon Dioxide (23-29) mEq/L BUN (8-23) mg/dL Creatinine (0.60-1.20) mg/dL Est GFR ( Amer) (> 60) Est GFR (Non-Af Amer) (> 60) BUN/Creatinine Ratio (6-26) Glucose (70-105) mg/dL Calculated Osmolality (280-300) Lactic Acid (0.5-2.2) mmol/L Calcium (8.6-10.3) mg/dL Total Bilirubin (0.3-1.0) mg/dL Direct Bilirubin (0.0-0.2) mg/dL Indirect Bilirubin (0.0-1.2) mg/dL AST (13-39) Units/L ALT (7-52) Units/L Alkaline Phosphatase (34-104) Units/L Troponin I (< 0.04) ng/mL B-Natriuretic Peptide (Less than 100) pg/mL Serum Total Protein (6.4-8.9) g/dL Albumin (3.5-5.7) g/dL Globulin (2.4-3.5) g/dL Albumin/Globulin Ratio (1.1-2.2) Urine Color Yellow (Yellow) Urine Clarity Clear (Clear) Urine pH 5.5 (5.0-8.0) pH Units Ur Specific [place] 1.027 H (1.010-1.025) Urine Protein 100 H (Neg-Trace) mg/dL Urine Glucose (UA) Normal (Normal) mg/dL Urine Ketones Negative (Negative) mg/dL Urine Blood Negative (Negative) Urine Nitrite Negative (Negative) Urine Bilirubin Negative (Negative) Urine Urobilinogen Normal (Normal) mg/dL Ur Leukocyte Esterase Negative (Negative) - Radiology Data Radiology results reviewed: Yes I reviewed the patient's radiology results. Chest X-Ray 06/20/18 00:00 IMPRESSION: 1. Pulmonary edema. D/ / Thierry Padilla MD / Thierry Padilla MD Interpreting Provider: Thierry Padilla MD - EKG Data EKG attestation: Yes I reviewed and interpreted this EKG. EKG results narrative: EKG demonstrates sinus tachycardia with a rate of 109. Normal axis. Normal intervals. Normal R-wave progression. Nonspecific ST-T wave changes in lead 3. No gross ST elevations or depressions. No acute ischemic findings. Critical Care Time Critical Care Time: Yes Total Critical Care Time: 60 Attestation: The high probability of a clinically significant, sudden or life threatening deterioration of the [resp] system(s) required my full and direct attention, intervention and personal management. The aggregate critical care time was [60] minutes. This time is in addition to time spent performing reported procedures but includes the following: [x] Data Review and interpretation [x] Patient assessment and monitoring of vital signs [x] Documentation [x] Medication orders and management S.B.A.R. - S.B.A.R. Situation: Demographics, MOA Background: Presenting Complaint, Relevant PMH, Meds, & Allergies Assessment: Course and respsone to treatment, Exam Concerns, Patient/Family Expectation, Pertinant Lab Results Recommendation: Barrier(s) to disposition, Recommendation based on pending studies, treatments, or consults S.B.A.RElida Report Given to: Dr. Arrieta [email or web address] Repor Time: 15:11 Attestation Statement - Attestation Attestation: I examined this patient and my medical decision-making was reviewed with the Resident Physician, Dr. Stanley. I agree with the documented findings, disposition and treatment plan as described except to the extent set forth below. Patient is a 67-year-old white female with a history of COPD and CHF who presents seem or permit today by EMS in respiratory distress. Patient states that she is been having gradually worsening shortness of breath over the past 48 hours, she was at home when she was so weak that she reports sliding off the edge of the couch and landing on the floor. There is no head injury or trauma related to this incident. She was unable to get up and having increased difficulty breathing and 911 was called. Patient arrived in respiratory distress she was found in the room with pulse ox at 27% and cyanotic. Patient was immediately moved to the trauma room for respiratory failure. She was denying any chest pain pressure or heaviness. I agree with patient's physical exam findings as documented. Patient was hypertensive and tachycardic with hypoxia. EKG shows sinus tachycardia without acute ischemia. Patient was immediately placed on BiPAP to large-bore peripheral IVs were established and patient was started on nitro drip for suspicion of pulmonary edema. Patient was also extremely hypertensive. Portable chest x-ray was taken soon after being placed on BiPAP which was consistent with pulmonary edema. Patient is allergic to aspirin so this was held. Full lab evaluation was performed on the patient showing a chronic anemia, elevated BNP, negative troponin. Patient's significantly improved at this time on reevaluation after BiPAP and nitroglycerin. Blood pressure improves but remains hypertensive. Patient will be admitted to the ICU for further evaluation and management of acute exacerbation of CHF.
[2018-06-20 13:52] LABS: INR 2.6; Prothrombin Time 29.1 Seconds (9.4-12.1)
[2018-06-20 13:54] LABS: Hypochromasia Present (Not Present)
[2018-06-20 13:55] LABS: Activated Partial Thrombo Time 40.8 Seconds (26.0-36.0)
[2018-06-20 13:57] LABS: VBG HCO3 40 mEq/L (21-27); VBG PCO2 87 mmHg (41-51); VBG PH 7.27 pH Units (7.32-7.42); VBG PO2 118 mmHg (25-50)
[2018-06-20 13:59] LABS: Troponin I < 0.03 ng/mL (< 0.04)
[2018-06-20 14:03] LABS: Alanine Aminotransferase 37 Units/L (7-52); Albumin/Globulin Ratio 1.4 (1.1-2.2); Alkaline Phosphatase 74 Units/L (34-104); Aspartate Amino Transferase 20 Units/L (13-39); BUN/Creatinine Ratio 33 (6-26); Bilirubin,Direct 0.2 mg/dL (0.0-0.2); Bilirubin,Indirect 0.4 mg/dL (0.0-1.2); Bilirubin,Total 0.6 mg/dL (0.3-1.0); Blood Urea Nitrogen 27 mg/dL (8-23); Calcium 9.3 mg/dL (8.6-10.3); Carbon Dioxide 40 mEq/L (23-29); Chloride 96 mEq/L (98-107); Globulin 2.8 g/dL (2.4-3.5); Glucose 236 mg/dL (70-105); Osmolality,Calculated 303 (280-300); Potassium 4.9 mEq/L (3.5-5.1); Sodium 140 mEq/L (136-145); Total Protein 6.8 g/dL (6.4-8.9); eGFR For Non-African Americans > 60 (> 60)
[2018-06-20 15:05] LABS: Bilirubin,Urine Negative (Negative); Blood,Urine Negative (Negative); Clarity,Urine Clear (Clear); Color,Urine Yellow (Yellow); Glucose,Urine (UA) Normal (Normal); Ketones,Urine Negative (Negative); Leukocyte Esterase,Urine Negative (Negative); Nitrite,Urine Negative (Negative); PH,Urine 5.5 pH Units (5.0-8.0); Protein,Urine 100 mg/dL (Neg-Trace); Specific Gravity,Urine 1.027 (1.010-1.025); Urobilinogen,Urine Normal (Normal)
[2018-06-20 15:24] LABS: Granular Casts,Urine Few per lpf (None Seen); Hyaline Casts,Urine Few per lpf (None-Few); Squamous Epithelial Cell,Urine Few per lpf (None-Few)
[2018-06-20 15:25] LABS: Bacteria,Urine Few per hpf (None-Few)
--- NOTE | 2018-06-20 16:36 | Pulmonology History & Physical ---
<Derrick Viveros - Last Filed: 06/20/18 17:56> Date of Encounter: 06/20/18 Time of Encounter: 16:36 Assessment and Plan (1) Acute on chronic respiratory failure with hypoxia and hypercapnia Status: Acute Presented with hyptertensive crisis - BP on admission was 182/154 acute on chronic respiratory failure likely caused by pulmonary edema seen on CXR known hx of diastolic CHF, NYHA class 3 ABG pH 7.20, pCO2 110, HCO3 43 - acute on chronic respiratory acidosis BNP normal at 60 Negative Trop on admission Continue BiPAP and Nitro 40mg IV Lasix once since Cr 0.82 on admission Transfer to [facility] as requested by pt and her (2) Acute pulmonary edema Status: Acute plan as above (3) Hypertensive crisis Status: Acute plan as above (4) Paroxysmal atrial fibrillation Status: Chronic plan as above (5) Diastolic congestive heart failure, NYHA class 3 Status: Chronic plan as above Qualifiers: Congestive heart failure chronicity: chronic Qualified Code(s): I50.32 - Chronic diastolic (congestive) heart failure (6) DVT prophylaxis Status: Acute on coumadin History of Present Illness Chief complaint: Shortness of breath HPI: Ms. Guevara is a 67 year old female with PMH of diastolic CHF, COPD, HTN, GERD, an d afib with RVR. She presented to the ED today for 2 days shortness of breath. Per ED and EMS reports, she was found down at home where she slid off the couch. She was recently treated for a UTI. The shortness of breath worsened today which prompted her to call EMS. In the ED she was initially placed on a non-rebreather and SpO2 improved to 88%. CXR revealed pulmonary edema. At that time BiPAP was initiated as well as a nitroglycerin drip. During the encounter with this provider the pt is resting comfortably in bed with BiPAP in place. She is alert and oriented x3. States her SOB has improved from earlier, but is still present. Continues to complain of increased LE edema bilaterally. Denies any chest pain, fever, chills, abdominal, nausea, or vomiting. 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, heart cath no stent - Social History Smoking Status: Former smoker Smokeless Tobacco Status: No Alcohol use: none Drug use: none - Family History Father Adopted: No Family Member Ethnicity: Non- Twin of Family Member: Yes, Fraternal Living Status: Hx Family Cardiac Disorders: Yes (Afib, HTN,) Hx Family Respiratory Disorders: Yes Hx Family Cancer: No Hx Family GI Disorders: No Hx Family Endocrine Disorder: No Hx Family Neuromuscular Disorders: No Hx Family Neurologic Disorders: No Hx Family HEENT Disorders: No Hx Family Autoimmune Disorders: No Mother Adopted: No Family Member Ethnicity: Non- Twin of Family Member: Yes, Fraternal Living Status: Hx Family Cardiac Disorders: Yes Hx Family Respiratory Disorders: Yes Hx Family Cancer: No Hx Family GI Disorders: No Hx Family Endocrine Disorder: No Hx Family Neuromuscular Disorders: No Hx Family Neurologic Disorders: No Hx Family HEENT Disorders: No Hx Family Autoimmune Disorders: No Sister Living Status: Hx Family Cardiac Disorders: Yes Hx Family Respiratory Disorders: Yes (copd) Medications and Allergies RX: Alendronate Sodium [Fosamax] 70 mg PO WE 10/28/15 [History] RX: Ascorbate Calcium [Vitamin C] 500 mg PO DAILY 10/28/15 [History] RX: Cyanocobalamin (Vitamin B-12) [Vitamin B-12] 100 mcg PO DAILY 10/28/15 [History] RX: Tiotropium [Spiriva] 2 puff PO HS 10/28/15 [History] RX: Ferrous Sulfate [Iron] 325 mg PO DAILY 07/03/16 [History] RX: Albuterol Sulfate [Proventil Hfa] 2 puff IH Q4H PRN 09/14/16 [History] RX: Oxygen 5 l IH AD 10/24/16 [History] RX: Fluticasone/Salmeterol [Advair 250-50 Diskus] 1 puff IH BID #1 blst.w.dev 11/16/16 [Rx] RX: Montelukast [Singulair] 10 mg PO DAILY 11/29/16 [History] RX: Calcium Carbonate [Calcium] 600 mg PO BID 05/08/17 [History] RX: Acetaminophen/Diphenhydramine [Percogesic 325-12.5 mg Tablet] 2 tab PO HS 07/19/17 [History] RX: Cholecalciferol (D-3) [Vitamin D] 5,000 unit PO DAILY 03/14/18 [History] RX: Lisinopril 2.5 mg PO DAILY 03/14/18 [History] RX: Furosemide [Lasix] 20 mg PO HS 05/08/18 [History] RX: Furosemide [Lasix] 40 mg PO DAILY 05/08/18 [History] RX: Omeprazole [PriLOSEC] 40 mg PO DAILY #30 cap 05/15/18 [Rx] RX: Ropinirole HCl [Requip Xl] 4 mg PO HS 06/04/18 [History] RX: Digoxin [Lanoxin] 0.125 mg PO DAILY 30 Days #30 tablet 06/11/18 [Rx] RX: Diltiazem CD (24hr) [Cardizem CD] 360 mg PO DAILY #30 cap.er.24h 06/11/18 [Rx] Warfarin [Coumadin] 5 mg PO 1800 #30 tablet 06/11/18 [Rx] Propafenone HCl [Rythmol Sr] 325 mg PO Q12H 06/20/18 [History] Allergy/AdvReac Type Severity Reaction Status Date / Time albuterol Allergy See Verified 06/20/18 17:30 Comments aspirin [ASA] Allergy Difficulty Verified 06/20/18 17:30 Breathing Penicillins Allergy Hives Verified 06/20/18 17:30 Sulfa (Sulfonamide Allergy Rash Verified 06/20/18 17:30 Antibiotics) All Systems: The remainder of the systems were reviewed and are negative - Constitutional Constitutional: no fever(s), no headache(s), no night sweats - Cardiovascular Cardiovascular: dyspnea, leg edema, orthopnea, no chest pain, no diaphoresis, no palpitations, no rapid heart rate - Respiratory Respiratory: cough, dyspnea, dyspnea on exertion, excessive phlegm production, no hemoptysis - Gastrointestinal Gastrointestinal: no abdominal pain, no nausea, no vomiting - Musculoskeletal Musculoskeletal: no weakness, no numbness, no stiffness, no tingling - Neurological Neurological: confusion, weakness, no numbness, no tingling Physical Examination Vital Signs: Vital Signs, Last 4 Hours Temp Pulse Resp BP Pulse Ox 06/20/18 16:33 29 98 06/20/18 16:05 114 18 167/89 98 06/20/18 14:45 120 18 146/103 100 06/20/18 14:38 99.1 F 121 20 169/66 99 06/20/18 13:51 116 213/161 06/20/18 13:37 99 06/20/18 13:31 110 20 182/154 99 06/20/18 13:25 24 100 06/20/18 13:24 98.7 F 110 26 182/154 82 General appearance: no acute distress, alert Eyes: nonicteric ENT: oropharynx moist Neck: supple, JVD Effort: mildly labored Inspection: normal Auscultation: bilateral: rales Percussion: bilateral: not dull Tactile fremitus: bilateral: diminished Cardiovascular: regular rate and rhythm Gastrointestinal: soft, non-tender, other (mild distention) Integumentary: normal Extremities: no cyanosis, no clubbing, pink and warm, pulses normal, edema Musculoskeletal: no deformities normal mental status, non-focal exam, pupils equal and round mood appropriate, affect normal Results - Laboratory Findings CBC and BMP: 06/20/18 13:14 06/20/18 13:14 ABG ABG pH 7.20 pH Units (7.32-7.45) L* 06/20/18 13:32 ABG pCO2 110 mmHg (35-45) H* 06/20/18 13:32 ABG pO2 87 mmHg (85-104) 06/20/18 13:32 ABG O2 Saturation 93 % (95-98) L 06/20/18 13:32 PT/INR, D-dimer PT 29.1 Seconds (9.4-12.1) H 06/20/18 13:14 Abnormal lab findings: Abnormal lab results WBC 17.1 K/mcL (4.3-11.1) H 06/20/18 13:14 RBC 3.51 M/mcL (3.82-4.97) L 06/20/18 13:14 Hgb 8.4 g/dL (11.5-15.4) L 06/20/18 13:14 Hct 30.7 % (35.3-44.9) L 06/20/18 13:14 MCH 23.9 pg (28.0-33.3) L 06/20/18 13:14 MCHC 27.4 g/dL (31.6-35.5) L 06/20/18 13:14 RDW 16.3 % (11.5-14.5) H 06/20/18 13:14 Neutrophils # 14.0 K/mcL (1.6-8.9) H 06/20/18 13:14 Hypochromasia Present (Not Present) A 06/20/18 13:14 PT 29.1 Seconds (9.4-12.1) H 06/20/18 13:14 APTT 40.8 Seconds (26.0-36.0) H 06/20/18 13:14 ABG pH 7.20 pH Units (7.32-7.45) L* 06/20/18 13:32 ABG pCO2 110 mmHg (35-45) H* 06/20/18 13:32 ABG HCO3 43 mEq/L (21-27) H 06/20/18 13:32 ABG Total CO2 46 mEq/L (20-26) H 06/20/18 13:32 ABG O2 Saturation 93 % (95-98) L 06/20/18 13:32 ABG Base Excess 12 mEq/L (-2 to 3) H 06/20/18 13:32 VBG pH 7.27 pH Units (7.32-7.42) L 06/20/18 13:39 VBG pCO2 87 mmHg (41-51) H* 06/20/18 13:39 VBG pO2 118 mmHg (25-50) H 06/20/18 13:39 VBG HCO3 40 mEq/L (21-27) H 06/20/18 13:39 Chloride 96 mEq/L (98-107) L 06/20/18 13:14 Carbon Dioxide 40 mEq/L (23-29) H* 06/20/18 13:14 BUN 27 mg/dL (8-23) H 06/20/18 13:14 BUN/Creatinine Ratio 33 (6-26) H 06/20/18 13:14 Glucose 236 mg/dL (70-105) H 06/20/18 13:14 Calculated Osmolality 303 (280-300) H 06/20/18 13:14 Ur Specific [place] 1.027 (1.010-1.025) H 06/20/18 14:43 Urine Protein 100 mg/dL (Neg-Trace) H 06/20/18 14:43 Urine Microscopic WBC 3-5 per hpf (0-3) H 06/20/18 14:43 Granular Casts Few per lpf (None Seen) H 06/20/18 14:43 <Víctor Barnett M - Last Filed: 06/21/18 06:45> Date of Encounter: 06/21/18 History of Present Illness HPI: Ms. Guevara is a 67 year old female All Systems: The remainder of the systems were reviewed and are negative Physical Examination Vital Signs: Vital Signs, Last 4 Hours Temp Pulse Resp BP Pulse Ox 06/20/18 16:33 29 98 06/20/18 16:05 114 18 167/89 98 06/20/18 14:45 120 18 146/103 100 06/20/18 14:38 99.1 F 121 20 169/66 99 06/20/18 13:51 116 213/161 06/20/18 13:37 99 06/20/18 13:31 110 20 182/154 99 06/20/18 13:25 24 100 06/20/18 13:24 98.7 F 110 26 182/154 82 Results - Laboratory Findings CBC and BMP: 06/20/18 13:14 06/20/18 13:14 ABG ABG pH 7.20 pH Units (7.32-7.45) L* 06/20/18 13:32 ABG pCO2 110 mmHg (35-45) H* 06/20/18 13:32 ABG pO2 87 mmHg (85-104) 06/20/18 13:32 ABG O2 Saturation 93 % (95-98) L 06/20/18 13:32 PT/INR, D-dimer PT 29.1 Seconds (9.4-12.1) H 06/20/18 13:14 Abnormal lab findings: Abnormal lab results WBC 17.1 K/mcL (4.3-11.1) H 06/20/18 13:14 RBC 3.51 M/mcL (3.82-4.97) L 06/20/18 13:14 Hgb 8.4 g/dL (11.5-15.4) L 06/20/18 13:14 Hct 30.7 % (35.3-44.9) L 06/20/18 13:14 MCH 23.9 pg (28.0-33.3) L 06/20/18 13:14 MCHC 27.4 g/dL (31.6-35.5) L 06/20/18 13:14 RDW 16.3 % (11.5-14.5) H 06/20/18 13:14 Neutrophils # 14.0 K/mcL (1.6-8.9) H 06/20/18 13:14 Hypochromasia Present (Not Present) A 06/20/18 13:14 PT 29.1 Seconds (9.4-12.1) H 06/20/18 13:14 APTT 40.8 Seconds (26.0-36.0) H 06/20/18 13:14 ABG pH 7.20 pH Units (7.32-7.45) L* 06/20/18 13:32 ABG pCO2 110 mmHg (35-45) H* 06/20/18 13:32 ABG HCO3 43 mEq/L (21-27) H 06/20/18 13:32 ABG Total CO2 46 mEq/L (20-26) H 06/20/18 13:32 ABG O2 Saturation 93 % (95-98) L 06/20/18 13:32 ABG Base Excess 12 mEq/L (-2 to 3) H 06/20/18 13:32 VBG pH 7.27 pH Units (7.32-7.42) L 06/20/18 13:39 VBG pCO2 87 mmHg (41-51) H* 06/20/18 13:39 VBG pO2 118 mmHg (25-50) H 06/20/18 13:39 VBG HCO3 40 mEq/L (21-27) H 06/20/18 13:39 Chloride 96 mEq/L (98-107) L 06/20/18 13:14 Carbon Dioxide 40 mEq/L (23-29) H* 06/20/18 13:14 BUN 27 mg/dL (8-23) H 06/20/18 13:14 BUN/Creatinine Ratio 33 (6-26) H 06/20/18 13:14 Glucose 236 mg/dL (70-105) H 06/20/18 13:14 Calculated Osmolality 303 (280-300) H 06/20/18 13:14 Ur Specific [place] 1.027 (1.010-1.025) H 06/20/18 14:43 Urine Protein 100 mg/dL (Neg-Trace) H 06/20/18 14:43 Urine Microscopic WBC 3-5 per hpf (0-3) H 06/20/18 14:43 Granular Casts Few per lpf (None Seen) H 06/20/18 14:43 - Attending Attestation I examined this patient and my medical decision-making was reviewed with the Resident Physician. I agree with the documented findings, disposition and treatment plan as described except to the extent set forth below. Patient seen and examined. Labs, radiology, chart personally reviewed. I was called by the emergency room physician to evaluate this patient and she was seen and examined in the emergency room. Agree with resident's history and physical, assessment, plan with following comments: WHARF TENDER HEAD: Patient lethargic and follows only follows commands, Pulmonary: I have reviewed chest x-ray personally and significant for pulmonary edema and she is being treated with noninvasive ventilation as well as nitroglycerin which was initiated in the emergency room and I suspect patient has also a posterior hypoventilation syndrome with evidence of acute on chronic respiratory failure which is most likely in my opinion related to pulmonary edema and her condition could deteriorate for that reason she is appropriate to be admitted to intensive care unit. Patient with poor prognosis and they suspect and condition could even deteriorate. Cardiovascular: Close monitoring and checking an echocardiogram and may need cardiology consultation. Patient has significant history of congestive heart failure and this is most likely acute/chronic decompensated congestive heart failure and is not clear at this time whether it systolic to diastolic and patient also has history of atrial fibrillation. GI: Nutrition per dietary and GI prophylaxis per routine. Patient will be nothing by mouth at this time due to the risk of having respiratory status could deteriorate and may need invasive mechanical intubation. Heme: DVT prophylaxis per routine ID: Most likely this is pulmonary edema, however due to her multiple comorbidities possibility of pneumonia cannot be ruled out Renal; urine out put and renal funtion reviewed Endorcine: blood glucose is monitored Lines: all lines checked and no evidence of infections Skin: skin care to prevent pressure ulcers per nursing routine care Overall prognosis is poor and her condition could deteriorate. Subsequently family arrived and requested patient to be transferred to [place]. I spent 35 min of Critical Care time with this patient. It involved decision making of high complexity to assess, manipulate, and support vital organ system failure and/or to prevent further life threatening deterioration of the patient's condition. The time involved in the performance of separately reportable procedures was not counted toward critical care time.
[2018-06-20] MEDS ORDERED: Furosemide 40 MG/4 ML VIAL IVP ONE (17:38)
[2018-06-20 17:44] LABS: Bilirubin,Urine Negative (Negative); Blood,Urine Small (Negative); Clarity,Urine Clear (Clear); Color,Urine Red (Yellow); Glucose,Urine (UA) Normal (Normal); Ketones,Urine Negative (Negative); Leukocyte Esterase,Urine Small (Negative); Nitrite,Urine Negative (Negative); PH,Urine 5.5 pH Units (5.0-8.0); Protein,Urine 30 mg/dL (Neg-Trace); Specific Gravity,Urine 1.018 (1.010-1.025); Urobilinogen,Urine Normal (Normal)
[2018-06-20 17:47] LABS: Bacteria,Urine None Seen per hpf (None-Few); Hyaline Casts,Urine None Seen per lpf (None-Few); RBC,Urine 15-30 per hpf (0-3); Squamous Epithelial Cell,Urine Moderate per lpf (None-Few)
--- NOTE | 2018-06-20 18:11 | Discharge Summary ---
Addendum entered and electronically signed by Víctor Barnett MD 06/21/18 09:22: Pulmonary edema is most likely secondary to diastolic heart failure Original Note: <Derrick Viveros - Last Filed: 06/20/18 18:08> Orders not resulted at time of discharge: Pending orders 06/20/18 13:14 Culture,Blood [BC] Stat 06/20/18 17:25 Culture,Urine [RM] Stat Date of Encounter: 06/20/18 Time of Encounter: 18:12 - Discharge Diagnosis (1) Acute on chronic respiratory failure with hypoxia and hypercapnia Priority: Primary Status: Acute Comments: Presented with hyptertensive crisis - BP on admission was 182/154 acute on chronic respiratory failure likely caused by pulmonary edema seen on CXR known hx of diastolic CHF, NYHA class 3 ABG pH 7.20, pCO2 110, HCO3 43 - acute on chronic respiratory acidosis BNP normal at 60 Negative Trop on admission Continue BiPAP and Nitro 40mg IV Lasix once since Cr 0.82 on admission Transfer to [facility] as requested by pt and her Spoke with Dr. Douglas, a hospitalist from [facility], who accepted the pt for transfer (2) Acute pulmonary edema Priority: Secondary Status: Acute Comments: plan as above (3) Hypertensive crisis Priority: Secondary Status: Acute Comments: plan as above (4) Paroxysmal atrial fibrillation Priority: Secondary Status: Chronic Comments: plan as above (5) Diastolic congestive heart failure, NYHA class 3 Priority: Secondary Status: Chronic Comments: plan as above Qualifiers: Congestive heart failure chronicity: chronic Qualified Code(s): I50.32 - Chronic diastolic (congestive) heart failure (6) DVT prophylaxis Priority: Secondary Status: Acute Comments: on coumadin - Discharge Medications Home Medications: RX: Alendronate Sodium [Fosamax] 70 mg PO WE 10/28/15 [History] RX: Ascorbate Calcium [Vitamin C] 500 mg PO DAILY 10/28/15 [History] RX: Cyanocobalamin (Vitamin B-12) [Vitamin B-12] 100 mcg PO DAILY 10/28/15 [History] RX: Tiotropium [Spiriva] 2 puff PO HS 10/28/15 [History] RX: Ferrous Sulfate [Iron] 325 mg PO DAILY 07/03/16 [History] RX: Albuterol Sulfate [Proventil Hfa] 2 puff IH Q4H PRN 09/14/16 [History] RX: Oxygen 5 l IH AD 10/24/16 [History] RX: Fluticasone/Salmeterol [Advair 250-50 Diskus] 1 puff IH BID #1 blst.w.dev 11/16/16 [Rx] RX: Montelukast [Singulair] 10 mg PO DAILY 11/29/16 [History] RX: Calcium Carbonate [Calcium] 600 mg PO BID 05/08/17 [History] RX: Acetaminophen/Diphenhydramine [Percogesic 325-12.5 mg Tablet] 2 tab PO HS 07/19/17 [History] RX: Cholecalciferol (D-3) [Vitamin D] 5,000 unit PO DAILY 03/14/18 [History] RX: Lisinopril 2.5 mg PO DAILY 03/14/18 [History] RX: Furosemide [Lasix] 20 mg PO HS 05/08/18 [History] RX: Furosemide [Lasix] 40 mg PO DAILY 05/08/18 [History] RX: Omeprazole [PriLOSEC] 40 mg PO DAILY #30 cap 05/15/18 [Rx] RX: Ropinirole HCl [Requip Xl] 4 mg PO HS 06/04/18 [History] RX: Digoxin [Lanoxin] 0.125 mg PO DAILY 30 Days #30 tablet 06/11/18 [Rx] RX: Diltiazem CD (24hr) [Cardizem CD] 360 mg PO DAILY #30 cap.er.24h 06/11/18 [Rx] Warfarin [Coumadin] 5 mg PO 1800 #30 tablet 06/11/18 [Rx] Propafenone HCl [Rythmol Sr] 325 mg PO Q12H 06/20/18 [History] Allergies/Adverse Reactions: Allergy/AdvReac Type Severity Reaction Status Date / Time albuterol Allergy See Verified 06/20/18 17:30 Comments aspirin [ASA] Allergy Difficulty Verified 06/20/18 17:30 Breathing Penicillins Allergy Hives Verified 06/20/18 17:30 Sulfa (Sulfonamide Allergy Rash Verified 06/20/18 17:30 Antibiotics) Labs on day of discharge: Labs from last 24 hours 06/20/18 06/20/18 06/20/18 17:25 14:43 13:50 WBC RBC Hgb Hct MCV MCH MCHC RDW Plt Count MPV Immature Gran % Seg Neutrophils % Lymphocytes % Monocytes % Eosinophils % Basophils % Neutrophils # Lymphocytes # Monocytes # Eosinophils # Basophils # Hypochromasia PT INR APTT Sample Site ABG pH ABG pCO2 ABG pO2 ABG HCO3 ABG Total CO2 ABG O2 Saturation ABG Base Excess Deepak Test VBG pH VBG pCO2 VBG pO2 VBG HCO3 O2 Delivery Device Blood Gas Modality Inspired O2 Sodium Potassium Chloride Carbon Dioxide BUN Creatinine Est GFR ( Amer) Est GFR (Non-Af Amer) BUN/Creatinine Ratio Glucose POC Glucose 242 H Calculated Osmolality Lactic Acid Calcium Total Bilirubin Direct Bilirubin Indirect Bilirubin AST ALT Alkaline Phosphatase Troponin I B-Natriuretic Peptide Serum Total Protein Albumin Globulin Albumin/Globulin Ratio Urine Color Red A Yellow Urine Clarity Clear Clear Urine pH 5.5 5.5 Ur Specific [place] 1.018 1.027 H Urine Protein 30 H 100 H Urine Glucose (UA) Normal Normal Urine Ketones Negative Negative Urine Blood Small H Negative Urine Nitrite Negative Negative Urine Bilirubin Negative Negative Urine Urobilinogen Normal Normal Ur Leukocyte Esterase Small H Negative Urine Microscopic RBC 15-30 H Urine Microscopic WBC 5-15 H 3-5 H Ur Squamous Epith Cells Moderate H Few Urine Bacteria None Seen Few Hyaline Casts None Seen Few Granular Casts Few H Ur Culture Indicated? YES A NO 06/20/18 06/20/18 06/20/18 13:39 13:32 13:14 WBC RBC Hgb Hct MCV MCH MCHC RDW Plt Count MPV Immature Gran % Seg Neutrophils % Lymphocytes % Monocytes % Eosinophils % Basophils % Neutrophils # Lymphocytes # Monocytes # Eosinophils # Basophils # Hypochromasia PT INR APTT Sample Site R Radial ABG pH 7.20 L* ABG pCO2 110 H* ABG pO2 87 ABG HCO3 43 H ABG Total CO2 46 H ABG O2 Saturation 93 L ABG Base Excess 12 H Deepak Test N/A VBG pH 7.27 L VBG pCO2 87 H* VBG pO2 118 H VBG HCO3 40 H O2 Delivery Device BiPAP Blood Gas Modality BiLevel Inspired O2 60.0 Sodium Potassium Chloride Carbon Dioxide BUN Creatinine Est GFR ( Amer) Est GFR (Non-Af Amer) BUN/Creatinine Ratio Glucose POC Glucose Calculated Osmolality Lactic Acid Calcium Total Bilirubin Direct Bilirubin Indirect Bilirubin AST ALT Alkaline Phosphatase Troponin I B-Natriuretic Peptide 60 Serum Total Protein Albumin Globulin Albumin/Globulin Ratio Urine Color Urine Clarity Urine pH Ur Specific [place] Urine Protein Urine Glucose (UA) Urine Ketones Urine Blood Urine Nitrite Urine Bilirubin Urine Urobilinogen Ur Leukocyte Esterase Urine Microscopic RBC Urine Microscopic WBC Ur Squamous Epith Cells Urine Bacteria Hyaline Casts Granular Casts Ur Culture Indicated? 06/20/18 06/20/18 06/20/18 13:14 13:14 13:14 WBC 17.1 H RBC 3.51 L Hgb 8.4 L Hct 30.7 L MCV 87.5 MCH 23.9 L MCHC 27.4 L RDW 16.3 H Plt Count 221 MPV 11.5 Immature Gran % 2.8 Seg Neutrophils % 81.8 Lymphocytes % 7.0 Monocytes % 7.8 Eosinophils % 0.2 Basophils % 0.4 Neutrophils # 14.0 H Lymphocytes # 1.2 Monocytes # 1.3 Eosinophils # 0.0 Basophils # 0.1 Hypochromasia Present A PT 29.1 H INR 2.6 APTT 40.8 H Sample Site ABG pH ABG pCO2 ABG pO2 ABG HCO3 ABG Total CO2 ABG O2 Saturation ABG Base Excess Deepak Test VBG pH VBG pCO2 VBG pO2 VBG HCO3 O2 Delivery Device Blood Gas Modality Inspired O2 Sodium 140 Potassium 4.9 Chloride 96 L Carbon Dioxide 40 H* BUN 27 H Creatinine 0.82 Est GFR ( Amer) > 60 Est GFR (Non-Af Amer) > 60 BUN/Creatinine Ratio 33 H Glucose 236 H POC Glucose Calculated Osmolality 303 H Lactic Acid Calcium 9.3 Total Bilirubin 0.6 Direct Bilirubin 0.2 Indirect Bilirubin 0.4 AST 20 ALT 37 Alkaline Phosphatase 74 Troponin I < 0.03 B-Natriuretic Peptide Serum Total Protein 6.8 Albumin 4.0 Globulin 2.8 Albumin/Globulin Ratio 1.4 Urine Color Urine Clarity Urine pH Ur Specific [place] Urine Protein Urine Glucose (UA) Urine Ketones Urine Blood Urine Nitrite Urine Bilirubin Urine Urobilinogen Ur Leukocyte Esterase Urine Microscopic RBC Urine Microscopic WBC Ur Squamous Epith Cells Urine Bacteria Hyaline Casts Granular Casts Ur Culture Indicated? 06/20/18 13:14 WBC RBC Hgb Hct MCV MCH MCHC RDW Plt Count MPV Immature Gran % Seg Neutrophils % Lymphocytes % Monocytes % Eosinophils % Basophils % Neutrophils # Lymphocytes # Monocytes # Eosinophils # Basophils # Hypochromasia PT INR APTT Sample Site ABG pH ABG pCO2 ABG pO2 ABG HCO3 ABG Total CO2 ABG O2 Saturation ABG Base Excess Deepak Test VBG pH VBG pCO2 VBG pO2 VBG HCO3 O2 Delivery Device Blood Gas Modality Inspired O2 Sodium Potassium Chloride Carbon Dioxide BUN Creatinine Est GFR ( Amer) Est GFR (Non-Af Amer) BUN/Creatinine Ratio Glucose POC Glucose Calculated Osmolality Lactic Acid 0.6 Calcium Total Bilirubin Direct Bilirubin Indirect Bilirubin AST ALT Alkaline Phosphatase Troponin I B-Natriuretic Peptide Serum Total Protein Albumin Globulin Albumin/Globulin Ratio Urine Color Urine Clarity Urine pH Ur Specific [place] Urine Protein Urine Glucose (UA) Urine Ketones Urine Blood Urine Nitrite Urine Bilirubin Urine Urobilinogen Ur Leukocyte Esterase Urine Microscopic RBC Urine Microscopic WBC Ur Squamous Epith Cells Urine Bacteria Hyaline Casts Granular Casts Ur Culture Indicated? Preliminary micro results at discharge 06/20/18 13:14 Blood Culture - Preliminary Peripheral Venipuncture Culture is incubating and being continuously monitored for growth. Final report to follow. 06/20/18 13:14 Blood Culture - Preliminary Peripheral Venipuncture Culture is incubating and being continuously monitored for growth. Final report to follow. - Impressions ITS Impressions Chest X-Ray 06/20/18 00:00 IMPRESSION: 1. Pulmonary edema. D/ / Thierry Padilla MD / Thierry aPdilla MD Interpreting Provider: Thierry Padilla MD Date of admission: 06/20/18 15:52 Primary care physician: PCP NONE Discharging clinician: Derrick Viveros - Patient Status Disposition: Transfer Critical Access Hosp Condition: Serious Functional capacity at discharge: bed bound Overall status at discharge: patient is not back to baseline - Discharge Instructions Follow Up With: NONE,PCP [Primary Care Provider] - - Hospital Course Hospital course: Ms. Guevara is a 67 year old female - Time Spent with Patient Total time spent providing and/or coordinating discharge services: Physical Examination Vital Signs: Vital Signs, Last 4 Hours Temp Pulse Resp BP Pulse Ox 06/20/18 17:00 97.9 F 109 24 137/71 100 06/20/18 16:33 29 98 06/20/18 16:18 108 06/20/18 16:05 114 18 167/89 98 06/20/18 14:45 120 18 146/103 100 06/20/18 14:38 99.1 F 121 20 169/66 99 General appearance: no acute distress, alert Eyes: nonicteric ENT: oropharynx dry Neck: supple, JVD Effort: mildly labored Inspection: normal Auscultation: bilateral: rales Percussion: bilateral: not dull Tactile fremitus: bilateral: diminished Cardiovascular: regular rate and rhythm Gastrointestinal: soft, non-tender, other (mildly distended) Integumentary: normal Extremities: no cyanosis, no clubbing, pink and warm, pulses normal, edema Musculoskeletal: no deformities normal mental status, non-focal exam, pupils equal and round mood appropriate, affect normal <SaadllaSilviaal M - Last Filed: 06/21/18 06:43> Orders not resulted at time of discharge: Pending orders 06/20/18 13:14 Culture,Blood [BC] Stat 06/20/18 17:25 Culture,Urine [RM] Stat Date of Encounter: 06/21/18 Labs on day of discharge: Labs from last 24 hours 06/20/18 06/20/18 06/20/18 17:25 16:42 14:43 WBC RBC Hgb Hct MCV MCH MCHC RDW Plt Count MPV Immature Gran % Seg Neutrophils % Lymphocytes % Monocytes % Eosinophils % Basophils % Neutrophils # Lymphocytes # Monocytes # Eosinophils # Basophils # Hypochromasia PT INR APTT Sample Site ABG pH ABG pCO2 ABG pO2 ABG HCO3 ABG Total CO2 ABG O2 Saturation ABG Base Excess Deepak Test VBG pH VBG pCO2 VBG pO2 VBG HCO3 O2 Delivery Device Blood Gas Modality Inspired O2 Sodium Potassium Chloride Carbon Dioxide BUN Creatinine Est GFR ( Amer) Est GFR (Non-Af Amer) BUN/Creatinine Ratio Glucose POC Glucose 186 H Calculated Osmolality Lactic Acid Calcium Total Bilirubin Direct Bilirubin Indirect Bilirubin AST ALT Alkaline Phosphatase Troponin I B-Natriuretic Peptide Serum Total Protein Albumin Globulin Albumin/Globulin Ratio Urine Color Red A Yellow Urine Clarity Clear Clear Urine pH 5.5 5.5 Ur Specific [place] 1.018 1.027 H Urine Protein 30 H 100 H Urine Glucose (UA) Normal Normal Urine Ketones Negative Negative Urine Blood Small H Negative Urine Nitrite Negative Negative Urine Bilirubin Negative Negative Urine Urobilinogen Normal Normal Ur Leukocyte Esterase Small H Negative Urine Microscopic RBC 15-30 H Urine Microscopic WBC 5-15 H 3-5 H Ur Squamous Epith Cells Moderate H Few Urine Bacteria None Seen Few Hyaline Casts None Seen Few Granular Casts Few H Ur Culture Indicated? YES A NO 06/20/18 06/20/18 06/20/18 13:50 13:39 13:32 WBC RBC Hgb Hct MCV MCH MCHC RDW Plt Count MPV Immature Gran % Seg Neutrophils % Lymphocytes % Monocytes % Eosinophils % Basophils % Neutrophils # Lymphocytes # Monocytes # Eosinophils # Basophils # Hypochromasia PT INR APTT Sample Site R Radial ABG pH 7.20 L* ABG pCO2 110 H* ABG pO2 87 ABG HCO3 43 H ABG Total CO2 46 H ABG O2 Saturation 93 L ABG Base Excess 12 H Deepak Test N/A VBG pH 7.27 L VBG pCO2 87 H* VBG pO2 118 H VBG HCO3 40 H O2 Delivery Device BiPAP Blood Gas Modality BiLevel Inspired O2 60.0 Sodium Potassium Chloride Carbon Dioxide BUN Creatinine Est GFR ( Amer) Est GFR (Non-Af Amer) BUN/Creatinine Ratio Glucose POC Glucose 242 H Calculated Osmolality Lactic Acid Calcium Total Bilirubin Direct Bilirubin Indirect Bilirubin AST ALT Alkaline Phosphatase Troponin I B-Natriuretic Peptide Serum Total Protein Albumin Globulin Albumin/Globulin Ratio Urine Color Urine Clarity Urine pH Ur Specific [place] Urine Protein Urine Glucose (UA) Urine Ketones Urine Blood Urine Nitrite Urine Bilirubin Urine Urobilinogen Ur Leukocyte Esterase Urine Microscopic RBC Urine Microscopic WBC Ur Squamous Epith Cells Urine Bacteria Hyaline Casts Granular Casts Ur Culture Indicated? 06/20/18 06/20/18 06/20/18 13:14 13:14 13:14 WBC 17.1 H RBC 3.51 L Hgb 8.4 L Hct 30.7 L MCV 87.5 MCH 23.9 L MCHC 27.4 L RDW 16.3 H Plt Count 221 MPV 11.5 Immature Gran % 2.8 Seg Neutrophils % 81.8 Lymphocytes % 7.0 Monocytes % 7.8 Eosinophils % 0.2 Basophils % 0.4 Neutrophils # 14.0 H Lymphocytes # 1.2 Monocytes # 1.3 Eosinophils # 0.0 Basophils # 0.1 Hypochromasia Present A PT INR APTT Sample Site ABG pH ABG pCO2 ABG pO2 ABG HCO3 ABG Total CO2 ABG O2 Saturation ABG Base Excess Deepak Test VBG pH VBG pCO2 VBG pO2 VBG HCO3 O2 Delivery Device Blood Gas Modality Inspired O2 Sodium 140 Potassium 4.9 Chloride 96 L Carbon Dioxide 40 H* BUN 27 H Creatinine 0.82 Est GFR ( Amer) > 60 Est GFR (Non-Af Amer) > 60 BUN/Creatinine Ratio 33 H Glucose 236 H POC Glucose Calculated Osmolality 303 H Lactic Acid Calcium 9.3 Total Bilirubin 0.6 Direct Bilirubin 0.2 Indirect Bilirubin 0.4 AST 20 ALT 37 Alkaline Phosphatase 74 Troponin I < 0.03 B-Natriuretic Peptide 60 Serum Total Protein 6.8 Albumin 4.0 Globulin 2.8 Albumin/Globulin Ratio 1.4 Urine Color Urine Clarity Urine pH Ur Specific [place] Urine Protein Urine Glucose (UA) Urine Ketones Urine Blood Urine Nitrite Urine Bilirubin Urine Urobilinogen Ur Leukocyte Esterase Urine Microscopic RBC Urine Microscopic WBC Ur Squamous Epith Cells Urine Bacteria Hyaline Casts Granular Casts Ur Culture Indicated? 06/20/18 06/20/18 13:14 13:14 WBC RBC Hgb Hct MCV MCH MCHC RDW Plt Count MPV Immature Gran % Seg Neutrophils % Lymphocytes % Monocytes % Eosinophils % Basophils % Neutrophils # Lymphocytes # Monocytes # Eosinophils # Basophils # Hypochromasia PT 29.1 H INR 2.6 APTT 40.8 H Sample Site ABG pH ABG pCO2 ABG pO2 ABG HCO3 ABG Total CO2 ABG O2 Saturation ABG Base Excess Deepak Test VBG pH VBG pCO2 VBG pO2 VBG HCO3 O2 Delivery Device Blood Gas Modality Inspired O2 Sodium Potassium Chloride Carbon Dioxide BUN Creatinine Est GFR ( Amer) Est GFR (Non-Af Amer) BUN/Creatinine Ratio Glucose POC Glucose Calculated Osmolality Lactic Acid 0.6 Calcium Total Bilirubin Direct Bilirubin Indirect Bilirubin AST ALT Alkaline Phosphatase Troponin I B-Natriuretic Peptide Serum Total Protein Albumin Globulin Albumin/Globulin Ratio Urine Color Urine Clarity Urine pH Ur Specific [place] Urine Protein Urine Glucose (UA) Urine Ketones Urine Blood Urine Nitrite Urine Bilirubin Urine Urobilinogen Ur Leukocyte Esterase Urine Microscopic RBC Urine Microscopic WBC Ur Squamous Epith Cells Urine Bacteria Hyaline Casts Granular Casts Ur Culture Indicated? Preliminary micro results at discharge 06/20/18 13:14 Blood Culture - Preliminary Peripheral Venipuncture Culture is incubating and being continuously monitored for growth. Final report to follow. 06/20/18 13:14 Blood Culture - Preliminary Peripheral Venipuncture Culture is incubating and being continuously monitored for growth. Final report to follow. - Impressions ITS Impressions Chest X-Ray 06/20/18 00:00 IMPRESSION: 1. Pulmonary edema. D/ / Thierry Padilla MD / Thierry Padilla MD Interpreting Provider: Thierry Padilla MD Date of admission: 06/20/18 15:52 Primary care physician: PCP NONE - Hospital Course Hospital course: Ms. Guevara is a 67 year old female - Time Spent with Patient Total time spent providing and/or coordinating discharge services: - Attending Attestation Dischargre plan discussed with resident on 06/20/2018 and this document signed on 06/21/2018 I examined this patient and my medical decision-making was reviewed with the Resident Physician. I agree with the documented findings, disposition and treatment plan as described except to the extent set forth below. Patient seen and examined. Labs, radiology, chart personally reviewed. Agree with resident's history and physical, assessment, plan with following comments: After patient was seen and evaluated in the emergency room and subsequently in the ICU family requested patient to be transferred out to [place] and overall condition was slightly improving. The assessment and plan as outlined above was discussed with the patient family members who expressed understanding and agreement. All questions were answered.
[2018-06-20 18:34] VITALS: BP 145/64
--- NOTE | 2018-06-21 08:59 | Electrocardiograph Report ---
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
== END 2018-06-20 18:54 | disposition critical access hospital (66) | DRG 189 ==
LOC: EMEROOARM 12:50 → ICNU 15:52
PROVIDERS: ADMIT Internal Medicine Pulmonary Disease; ATTEND Internal Medicine Pulmonary Disease

== ENCOUNTER 2018-09-08 19:38 | Inpatient (IN) ==
[2018-09-08] MEDS ORDERED: Aspirin 325 MG TABLET PO ONE (19:41)
[2018-09-08] MEDS ORDERED: methylPREDNISolone 125 MG/2 ML VIAL IVP ONE (19:50)
[2018-09-08] MEDS ORDERED: Ipratropium/Albuterol Neb 3 ML IH ONE ×2 (19:50→20:37)
[2018-09-08 20:00] LABS: Basophils % 0.2 %; Lymphocytes % 8.2 %; Nucleated Red Blood Cells 0.2 /100 WBC (0)
[2018-09-08 20:01] LABS: Eosinophils # 0.1 K/mcL (0.0-0.6); Eosinophils % 1.2 %; Hematocrit 30.3 % (35.3-44.9); Immature Granulocytes % 0.4 % (0-4); Lymphocytes # 0.7 K/mcL (0.6-4.6); Mean Corpuscular HGB Conc 26.4 g/dL (31.6-35.5); Mean Corpuscular Hemoglobin 23.6 pg (28.0-33.3); Mean Corpuscular Volume 89.4 fL (83.0-100.0); Mean Platelet Volume 11.5 fL (9.4-12.4); Monocytes # 0.7 K/mcL (0.0-1.3); Monocytes % 8.4 %; Neutrophils # 6.9 K/mcL (1.6-8.9); Platelet Count 205 K/mcL (140-400); Red Blood Count 3.39 M/mcL (3.82-4.97); Red Cell Distribution Width 17.1 % (11.5-14.5); Segmented Neutrophils % 81.6 %
[2018-09-08 20:10] LABS: Activated Partial Thrombo Time 27.8 Seconds (26.0-36.0)
[2018-09-08 20:22] LABS: BUN/Creatinine Ratio 26 (6-26); Blood Urea Nitrogen 45 mg/dL (8-23); Calcium 9.6 mg/dL (8.6-10.3); Carbon Dioxide 39 mEq/L (23-29); Chloride 97 mEq/L (98-107); Glucose 163 mg/dL (70-105); Hypochromasia Present (Not Present); Magnesium 2.3 mg/dL (1.6-2.6); Osmolality,Calculated 309 (280-300); Polychromasia 1+ (Not Present); Potassium 4.8 mEq/L (3.5-5.1); Sodium 142 mEq/L (136-145); eGFR For Non-African Americans 30 (> 60)
[2018-09-08 20:25] LABS: Troponin I < 0.03 ng/mL (< 0.04)
--- NOTE | 2018-09-08 20:36 | Emergency Department Note ---
Disposition Clinical Impression: Weakness, Junctional bradycardia Disposition: Admitted As Inpatient Condition: Fair Referrals: NONE,PCP [Non-Partnered Physician] - Forms: ED Satisfaction Letter Time of Disposition: 22:54 General Adult HPI - General Chief complaint: ED Arrhythmia/Palpitations Stated complaint: Bradycardia Time Seen by Provider: 09/08/18 19:41 Source: patient, family, EMS Limitations: no limitations Nursing Notes Reviewed: Yes Vital Signs Reviewed: Yes - History of Present Illness HPI Narrative: Male patient presents to the emergency department with increased fatigue and bradycardia that was noted tonight. The and son are at bedside. She was recently released from the hospital secondary to swelling in her lower extremities and increasing weakness. She was also noted to be in A. fib. They were unable to cardiovert the patient secondary to a likely thrombus as the is describing it. Patient is currently on carvedilol as well as Toprol per the . She was noted to be bradycardic at home tonight. He states that she was short of breath simply place a pulse ox on her around 5:00 her heart rate was in the 60s however around 5:30 to 6 is noted to be in the 40s. EMS was called. Patient was in a junctional rhythm. They did give 1-1/2 mg of atropine with some mild improvement. The family states the patient has been very sleepy over the past 2 days. She is arousable and has no complaints other than being tired at this time. Pain Scale: 0 - Related Data Home Medications Medication Instructions Recorded Confirmed Alendronate Sodium [Fosamax] 70 mg PO WE 10/28/15 07/22/18 Ascorbate Calcium [Vitamin C] 500 mg PO DAILY 10/28/15 07/22/18 Tiotropium [Spiriva] 2 puff PO HS 10/28/15 07/22/18 Oxygen 4 l NS CONT 10/24/16 07/22/18 Montelukast [Singulair] 10 mg PO DAILY 11/29/16 07/22/18 Calcium Carbonate [Calcium] 600 mg PO DAILY 05/08/17 07/22/18 Acetaminophen/Diphenhydramine 2 tab PO HS 07/19/17 07/22/18 [Percogesic 325-12.5 mg Tablet] Cholecalciferol (D-3) [Vitamin D] 1,000 unit PO DAILY 03/14/18 07/22/18 Lisinopril 2.5 mg PO DAILY 03/14/18 07/22/18 Ropinirole HCl [Requip Xl] 4 mg PO HS 06/04/18 07/22/18 Dexlansoprazole [Dexilant] 60 mg PO DAILY 07/06/18 07/22/18 Cyanocobalamin (B-12) [Vitamin B12] 1,000 mcg PO DAILY 07/07/18 07/22/18 Previous Rx's Medication Instructions Recorded Fluticasone/Salmeterol [Advair 1 puff IH BID #1 blst.w.dev 11/16/16 250-50 Diskus] Omeprazole [PriLOSEC] 40 mg PO DAILY #30 cap 05/15/18 Dofetilide [Tikosyn] 0.5 mg PO 0900,2100 capsule 07/12/18 Ferrous Sulfate 325 mg PO DAILY tablet 07/12/18 Bumetanide [Bumex] 2 mg PO BIDDIURETIC #60 tablet 08/16/18 Diltiazem CD (24hr) [Cardizem CD] 360 mg PO DAILY #60 cap.er.24h 08/16/18 Metoprolol XL (24 HR) Succ [Toprol 75 mg PO BID #30 tab.er.24h 08/16/18 Xl] Polyethylene Glycol 3350 [MiraLAX] 17 gm PO DAILY PRN powd.pack 08/16/18 Warfarin [Coumadin] 5 mg PO DAILY #30 tablet 08/19/18 Allergies Allergy/AdvReac Type Severity Reaction Status Date / Time albuterol Allergy See Verified 06/20/18 17:30 Comments aspirin [ASA] Allergy Difficulty Verified 06/20/18 17:30 Breathing Penicillins Allergy Hives Verified 06/20/18 17:30 Sulfa (Sulfonamide Allergy Rash Verified 06/20/18 17:30 Antibiotics) All systems ED: reviewed and negative except as stated. Review of Systems: As Per HPI Constitutional: Denies: fever ENT ED: Denies: congestion Cardiovascular: Denies: chest pain, palpitations, syncope Respiratory: Reports: dyspnea. Denies: cough Gastrointestinal: Denies: abdominal pain, nausea, vomiting, diarrhea Neurological: Reports: weakness Past Medical History - Past Medical History Attestation: Yes The following information was validated with the patient. Source: patient, obtained from family Medical history: Reports: asthma, atrial fibrillation, CHF, COPD, GERD, hypertension, migraine Surgical history: Reports: cholecystectomy, hysterectomy Psychiatric history: Reports: no psych history CAUL PULLER history: Reports: no CAUL PULLER history - Social History Smoking Status: Former smoker Smokeless Tobacco Status: No Alcohol use: Reports: none Drug use: Reports: none Physical Exam - General Limitations: no limitations General appearance: alert, other (Appears tired. Mildly dyspneic.) - Head Head exam: atraumatic, normocephalic, normal inspection - Eye Eye exam: Present: normal appearance, PERRL, EOMI - ENT ENT exam: normal exam, normal oropharynx, mucous membranes moist - Neck Neck exam: Present: normal inspection, full ROM, trachea midline - Chest Chest inspection: Present: normal inspection, symmetric chest wall rise. Absent: tenderness - Respiratory Respiratory exam: Present: other (Decreased throughout.). Absent: accessory muscle use - Cardiovascular Cardiovascular exam: Present: normal rhythm, bradycardia, normal heart sounds - Abdominal Exam Abdominal exam: Present: soft, Non-Tender, other (Examination inhibited by patient's body habitus). Absent: tenderness, distention, guarding, rebound, rigidity - Extremities Exam Extremities exam: Present: pedal edema (Pitting edema significant to the knees bilaterally.) - Neurological Exam Neurological exam: Present: alert, oriented X3, other (Very tired. Quickly falls asleep.) - Psychiatric Psychiatric exam: Present: normal affect, normal mood - Skin Skin exam: Present: warm, dry, intact, normal color Course Course Narrative: Obese female patient with extensive pitting edema to lower extremities and history of A. fib presenting in a junctional rhythm and rate of 30s. Patient did minimally responsive to atropine given by EMS. She is easy to arouse but does appear to be sleepy. Lung sounds are diminished throughout. Patient does have significant pitting edema to lower extremity. We did provide her with Lasix at this time. Chest x-ray does show pulmonary edema. Female patient is bradycardic with a junctional rhythm her pressures have been stable. She is normotensive. We did provide the patient with Lasix that she does appear to be fluid overloaded currently. She denies any chest pain. She does report some mild dyspnea. She is on 4 L of oxygen at home and remains with an oxygen saturation in the mid 90s on this here. We did place an IV and gave the patient 1 mg of glucagon. We will admit patient to the hospitalist for evaluation of her bradycardia as well as her pulmonary edema. - Consultations Consultation #1: I spoke with Dr Salcedo. We discussed that the patient was in a junctional rhythm and she is currently on Cardizem as well as a beta balbina as well as tikisyn. He suggested the patient have pacer pads on the did not believe that the patient needed intervention at this time. He had no other recommendations. Time: 22:43 Vital Signs Temperature 98.5 F 09/08/18 19:51 Pulse Rate 41 09/08/18 19:51 Respiratory Rate 26 09/08/18 19:51 Blood Pressure 106/88 09/08/18 19:51 O2 Sat by Pulse Oximetry 99 09/08/18 19:51 Temperature 98.5 F 09/08/18 19:51 Pulse Rate 42 09/08/18 21:31 Respiratory Rate 20 09/08/18 21:31 Blood Pressure 116/62 09/08/18 21:31 O2 Sat by Pulse Oximetry 98 09/08/18 21:31 Oxygen Delivery Oxygen Delivery Nasal Cannula Medical Decision Making - Medical Records Medical records reviewed: Yes I reviewed the patient's medical records. - Lab Data Lab results reviewed: Yes I reviewed the patient's lab results. Result diagrams: 09/08/18 19:50 09/08/18 19:50 Lab Results 09/08/18 09/08/18 09/08/18 Range/Units 19:50 19:50 19:50 WBC 8.4 (4.3-11.1) K/mcL RBC 3.39 L (3.82-4.97) M/mcL Hgb 8.0 L (11.5-15.4) g/dL Hct 30.3 L (35.3-44.9) % MCV 89.4 (83.0-100.0) fL MCH 23.6 L (28.0-33.3) pg MCHC 26.4 L (31.6-35.5) g/dL RDW 17.1 H (11.5-14.5) % Plt Count 205 (140-400) K/mcL MPV 11.5 (9.4-12.4) fL Immature Gran % 0.4 (0-4) % Seg Neutrophils % 81.6 % Lymphocytes % 8.2 % Monocytes % 8.4 % Eosinophils % 1.2 % Basophils % 0.2 % Neutrophils # 6.9 (1.6-8.9) K/mcL Lymphocytes # 0.7 (0.6-4.6) K/mcL Monocytes # 0.7 (0.0-1.3) K/mcL Eosinophils # 0.1 (0.0-0.6) K/mcL Basophils # 0.0 (0.0-0.2) K/mcL Nucleated RBCs/100 WBC 0.2 H (0) /100 WBC Polychromasia 1+ A (Not Present) Hypochromasia Present A (Not Present) PT 22.0 H (9.4-12.1) Seconds INR 2.0 APTT 27.8 (26.0-36.0) Seconds Sodium 142 (136-145) mEq/L Potassium 4.8 (3.5-5.1) mEq/L Chloride 97 L (98-107) mEq/L Carbon Dioxide 39 H (23-29) mEq/L BUN 45 H (8-23) mg/dL Creatinine 1.70 H (0.60-1.20) mg/dL Est GFR ( Amer) 36 L (> 60) Est GFR (Non-Af Amer) 30 L (> 60) BUN/Creatinine Ratio 26 (6-26) Glucose 163 H (70-105) mg/dL Calculated Osmolality 309 H (280-300) Calcium 9.6 (8.6-10.3) mg/dL Magnesium 2.3 (1.6-2.6) mg/dL Troponin I < 0.03 (< 0.04) ng/mL TSH 4.670 (0.340-5.600) mcIU/mL - Radiology Data Radiology results reviewed: Yes I reviewed the patient's radiology results. Chest X-Ray 09/08/18 19:42 IMPRESSION: Cardiomegaly and pulmonary edema. D/ / Curt Mallory MD / Curt Mallory MD Interpreting Provider: Curt Mallory MD - EKG Data EKG #1 EKG attestation: Yes I reviewed and interpreted this EKG. EKG results narrative: Junctional rhythm at a rate of 41. ND interval is measured. QRS duration is 83. QT is 557. QTC is 460. No signs of acute ischemia. No signs of WPW or Brugada. Patient's previous EKG dated 08/11/2018 was a sinus rhythm. Attestation Statement - Attestation Attestation: I, Geovany Morales DO, examined this patient [id number] and my medical decision-making was reviewed with Dr. Meeta Neri, Resident Physician. I agree with the documented findings, disposition and treatment plan as described except to the extent set forth below. Please see my progress notes for details.
--- NOTE | 2018-09-08 21:21 | Emergency Department Note ---
Disposition Clinical Impression: Weakness, Junctional bradycardia Disposition: Admitted As Inpatient Condition: Fair Forms: ED Satisfaction Letter Time of Disposition: 22:25 General Adult HPI - General Chief complaint: ED Arrhythmia/Palpitations Stated complaint: Bradycardia Time Seen by Provider: 09/08/18 19:41 Source: patient, family, EMS Limitations: no limitations - History of Present Illness Pain Scale: 0 - Related Data Home Medications Medication Instructions Recorded Confirmed Alendronate Sodium [Fosamax] 70 mg PO WE 10/28/15 07/22/18 Ascorbate Calcium [Vitamin C] 500 mg PO DAILY 10/28/15 07/22/18 Tiotropium [Spiriva] 2 puff PO HS 10/28/15 07/22/18 Oxygen 4 l NS CONT 10/24/16 07/22/18 Montelukast [Singulair] 10 mg PO DAILY 11/29/16 07/22/18 Calcium Carbonate [Calcium] 600 mg PO DAILY 05/08/17 07/22/18 Acetaminophen/Diphenhydramine 2 tab PO HS 07/19/17 07/22/18 [Percogesic 325-12.5 mg Tablet] Cholecalciferol (D-3) [Vitamin D] 1,000 unit PO DAILY 03/14/18 07/22/18 Lisinopril 2.5 mg PO DAILY 03/14/18 07/22/18 Ropinirole HCl [Requip Xl] 4 mg PO HS 06/04/18 07/22/18 Dexlansoprazole [Dexilant] 60 mg PO DAILY 07/06/18 07/22/18 Cyanocobalamin (B-12) [Vitamin B12] 1,000 mcg PO DAILY 07/07/18 07/22/18 Previous Rx's Medication Instructions Recorded Fluticasone/Salmeterol [Advair 1 puff IH BID #1 blst.w.dev 11/16/16 250-50 Diskus] Omeprazole [PriLOSEC] 40 mg PO DAILY #30 cap 05/15/18 Dofetilide [Tikosyn] 0.5 mg PO 0900,2100 capsule 07/12/18 Ferrous Sulfate 325 mg PO DAILY tablet 07/12/18 Bumetanide [Bumex] 2 mg PO BIDDIURETIC #60 tablet 08/16/18 Diltiazem CD (24hr) [Cardizem CD] 360 mg PO DAILY #60 cap.er.24h 08/16/18 Metoprolol XL (24 HR) Succ [Toprol 75 mg PO BID #30 tab.er.24h 08/16/18 Xl] Polyethylene Glycol 3350 [MiraLAX] 17 gm PO DAILY PRN powd.pack 08/16/18 Warfarin [Coumadin] 5 mg PO DAILY #30 tablet 08/19/18 Allergies Allergy/AdvReac Type Severity Reaction Status Date / Time albuterol Allergy See Verified 06/20/18 17:30 Comments aspirin [ASA] Allergy Difficulty Verified 06/20/18 17:30 Breathing Penicillins Allergy Hives Verified 06/20/18 17:30 Sulfa (Sulfonamide Allergy Rash Verified 06/20/18 17:30 Antibiotics) Past Medical History - Past Medical History Medical history: Reports: asthma, atrial fibrillation, CHF, COPD, GERD, hypertension, migraine Surgical history: Reports: cholecystectomy, hysterectomy Psychiatric history: Reports: no psych history MANUGRAPHER history: Reports: no MANUGRAPHER history - Social History Smoking Status: Former smoker Smokeless Tobacco Status: No Alcohol use: Reports: none Drug use: Reports: none Physical Exam - General Limitations: no limitations General appearance: alert, in no apparent distress Course Vital Signs Temperature 98.5 F 09/08/18 19:51 Pulse Rate 41 09/08/18 19:51 Respiratory Rate 26 09/08/18 19:51 Blood Pressure 106/88 09/08/18 19:51 O2 Sat by Pulse Oximetry 99 09/08/18 19:51 Temperature 98.5 F 09/08/18 19:51 Pulse Rate 42 09/08/18 21:31 Respiratory Rate 20 09/08/18 21:31 Blood Pressure 116/62 09/08/18 21:31 O2 Sat by Pulse Oximetry 98 09/08/18 21:31 Oxygen Delivery Oxygen Delivery Nasal Cannula Medical Decision Making - Lab Data Result diagrams: 09/08/18 19:50 09/08/18 19:50 Lab Results 09/08/18 09/08/18 09/08/18 Range/Units 19:50 19:50 19:50 WBC 8.4 (4.3-11.1) K/mcL RBC 3.39 L (3.82-4.97) M/mcL Hgb 8.0 L (11.5-15.4) g/dL Hct 30.3 L (35.3-44.9) % MCV 89.4 (83.0-100.0) fL MCH 23.6 L (28.0-33.3) pg MCHC 26.4 L (31.6-35.5) g/dL RDW 17.1 H (11.5-14.5) % Plt Count 205 (140-400) K/mcL MPV 11.5 (9.4-12.4) fL Immature Gran % 0.4 (0-4) % Seg Neutrophils % 81.6 % Lymphocytes % 8.2 % Monocytes % 8.4 % Eosinophils % 1.2 % Basophils % 0.2 % Neutrophils # 6.9 (1.6-8.9) K/mcL Lymphocytes # 0.7 (0.6-4.6) K/mcL Monocytes # 0.7 (0.0-1.3) K/mcL Eosinophils # 0.1 (0.0-0.6) K/mcL Basophils # 0.0 (0.0-0.2) K/mcL Nucleated RBCs/100 WBC 0.2 H (0) /100 WBC Polychromasia 1+ A (Not Present) Hypochromasia Present A (Not Present) PT 22.0 H (9.4-12.1) Seconds INR 2.0 APTT 27.8 (26.0-36.0) Seconds Sodium 142 (136-145) mEq/L Potassium 4.8 (3.5-5.1) mEq/L Chloride 97 L (98-107) mEq/L Carbon Dioxide 39 H (23-29) mEq/L BUN 45 H (8-23) mg/dL Creatinine 1.70 H (0.60-1.20) mg/dL Est GFR ( Amer) 36 L (> 60) Est GFR (Non-Af Amer) 30 L (> 60) BUN/Creatinine Ratio 26 (6-26) Glucose 163 H (70-105) mg/dL Calculated Osmolality 309 H (280-300) Calcium 9.6 (8.6-10.3) mg/dL Magnesium 2.3 (1.6-2.6) mg/dL Troponin I < 0.03 (< 0.04) ng/mL TSH 4.670 (0.340-5.600) mcIU/mL Critical Care Time Critical Care Time: Yes Total Critical Care Time: 45 Attestation: Critical care performed: Time is exclusive of separately billable procedures. Time includes: direct patient care, patient reassessment, coordination of patient care, interpretation of data (laboratory data, radiology data, and respiratory data), review of patient's medical records, medical consultation and documentation of patient care. Procedures included in critical care time: Procedures excluded from critical care time: Attestation Statement - Attestation Attestation: I, Geovany Morales DO, examined this patient [id number] and my medical decision-making was reviewed with Dr. Meeta Neri, Resident Physician. I agree with the documented findings, disposition and treatment plan as described except to the extent set forth below. Please see my progress notes for details. Patient presents from home today for evaluation of shortness of breath and weakness. Patient has known cardiac related disease. She thinks that she may have taken 2 of her metoprolol instead of her Lasix. Patient denies any chest pain shortness breath headache vision changes nausea vomiting or diarrhea. No fevers no chills. Denies any falls trauma or injury. During transport by EMS the patient was found to have a heart rate in the 30s. One single 0.5 mg dose of atropine was given. Patient's heart rate responding came up to the 50s. Patient has no known history of cardiac arrhythmia. Vital signs otherwise stable outside of the bradycardia. Patient was provided with appropriate me dication transport. No other acute medical issues were noted as described prior to the events here today. Family is concerned because of the bradycardia and brought her in. The was concerned that she may have taken 2 of her home blood pressure medications tonight and antibiotic the source. On physical exam the patient is upright and awake in the bed. Lungs are clear but she does have wheezing noted in the periphery and expiration. Heart is bradycardic with no murmurs. Abdomen is soft nontender nondistended no guarding no rigidity no peritoneal symptoms. Patient does have deep dependent pitting edema in the bilateral lower extremities up to the knee. She has normal sensation to the extremities at this time. She has no visible signs of cellulitis abrasion or injury. Patient is conversing without any distress at this time. Treatments, CBC, chemistry, chest x-ray EKG electrolytes urinalysis will be collected here in the emergency department. Pacer pads been applied atropine be placed at the bedside. Detailed workup will be established and the patient will most every required admission. All described symptoms are most likely secondary to the bradycardia and symptoms. Patient is otherwise clinical stable. We will continue to monitor closely until treatment course has been completed. See detailed documentation of the physical exam, medical intervention, medical decision-making and disposition in the resident physician's note. Proximally 45 minutes of critical care will be applied to the patient's treatment course secondary to junctional rhythm multidisciplinary medical intervention. 2200 Patient has been asymptomatic while here with stable blood pressure. Her respirations of been unlabored. EKG shows junctional rhythm with no acute signs of ST segment elevation. There is no discernible P waves or visible signs of third-degree heart block. The remainder of her laboratory workup and imaging is been unremarkable. Patient was provided with glucagon was suspicion of possible beta balbina ingestion. Otherwise the patient has not required any other further intervention. Patient was discussed with the hospitalist Dr. Villalobos. He reviewed the case. Recommended cardiology consultation with the patient being stable at this time. Will contact cardiology for review the EKG and recommendations for medical management. Patient will be left on the pacer pads of atropine at the bedside. Otherwise the patient is in no distress with no acute findings. Patient will be admitted for continuation of care at this point. She will be monitoring in the emergency department until admission processes established
[2018-09-08] MEDS ORDERED: Furosemide 40 MG/4 ML VIAL IVP STA (21:34)
[2018-09-09] MEDS ORDERED: Naloxone 0.4 MG/ML INJ IVP PRN (00:52)
[2018-09-09] MEDS ORDERED: Ipratropium/Albuterol Neb 3 ML IH PRN (01:00)
--- NOTE | 2018-09-09 01:56 | Internal Med History&Physical ---
<Himanshu Garvin R - Last Filed: 09/09/18 02:21> Date of Encounter: 09/09/18 Time of Encounter: 00:15 Internal Medicine - H&P: HPI Chief complaint: Fatigue and bradycardia Admitted From: Emergency Dept History of present illness: Ms. Guevara is a 67 year old female with a past medical history significant for COPD on 4 L home oxygen, rate controlled atrial fibrillation anticoagulated with warfarin, lower extremity edema, diastolic heart failure, and recent discharge on 08/20/2018 after treatment of diastolic heart failure exacerbation, A. fib with RVR, and lower extremity edema. She is presenting for evaluation of malaise, fatigue, and shortness of breath. She reports she began "not feeling very well" in the afternoon. When this persisted she called for EMS transport for evaluation. She was discovered to have bradycardia, EMS did administer atropine with no benefit. Upon evaluation in the emergency department she was found to be hemodynamically stable. She remained fatigued but was easily arousable. Alert and oriented. No chest pain or dizziness reported. No nausea, vomiting, dizziness. EKG revealed a junctional rhythm bradycardia. Potassium 4.8 and magnesium of 2.3, negative troponin, TSH was normal limits. Elevated serum creatinine of 1.7. At the time of my evaluation patient is resting comfortably in bed. She reports mild shortness of breath and wheezing. No other acute complaints at this time. She states that her metoprolol and another medication look very similar and it is possible that she may have taken two metoprolol inadvertently, however she and her believe that this is not likely. Reports after last discharge she went to [facility] facility, however she signed herself out after 48 hours to return home. They state she has been compliant with her dietary and fluid restrictions. 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, heart cath no stent - Social History Smoking Status: Former smoker Smokeless Tobacco Status: No Alcohol use: none Drug use: none - Family History Brother Living Status: Grandfather Family Member Ethnicity: Non- Living Status: Hx Family Cardiac Disorders: Yes (NC, Afib, HTN) Sister Family Member Ethnicity: Non- Living Status: Hx Family Cardiac Disorders: Yes Hx Family Respiratory Disorders: Yes (COPD) Hx Family GI Disorders: Yes (Stomach ulcers) Mother Adopted: No Family Member Ethnicity: Non- Twin of Family Member: Yes, Fraternal Living Status: Hx Family Cardiac Disorders: Yes Hx Family Respiratory Disorders: Yes Hx Family Cancer: No Hx Family GI Disorders: No Hx Family Endocrine Disorder: No Hx Family Neuromuscular Disorders: No Hx Family Neurologic Disorders: No Hx Family HEENT Disorders: No Hx Family Autoimmune Disorders: No Father Adopted: No Family Member Ethnicity: Non- Twin of Family Member: Yes, Fraternal Living Status: Hx Family Cardiac Disorders: Yes (Afib, HTN, NC) Hx Family Respiratory Disorders: Yes Hx Family Cancer: No Hx Family GI Disorders: No Hx Family Endocrine Disorder: No Hx Family Neuromuscular Disorders: No Hx Family Neurologic Disorders: No Hx Family HEENT Disorders: No Hx Family Autoimmune Disorders: No Internal Medicine - H&P: Meds Alendronate Sodium [Fosamax] 70 mg PO WE 10/28/15 [History] Ascorbate Calcium [Vitamin C] 500 mg PO DAILY 10/28/15 [History] Tiotropium [Spiriva] 2 puff PO HS 10/28/15 [History] Oxygen 4 l NS CONT 10/24/16 [History] Fluticasone/Salmeterol [Advair 250-50 Diskus] 1 puff IH BID #1 blst.w.dev 11/16/16 [Rx] Montelukast [Singulair] 10 mg PO DAILY 11/29/16 [History] Calcium Carbonate [Calcium] 600 mg PO DAILY 05/08/17 [History] Acetaminophen/Diphenhydramine [Percogesic 325-12.5 mg Tablet] 2 tab PO HS 07/19/17 [History] Cholecalciferol (D-3) [Vitamin D] 1,000 unit PO DAILY 03/14/18 [History] Lisinopril 2.5 mg PO DAILY 03/14/18 [History] Omeprazole [PriLOSEC] 40 mg PO DAILY #30 cap 05/15/18 [Rx] Ropinirole HCl [Requip Xl] 4 mg PO HS 06/04/18 [History] Dexlansoprazole [Dexilant] 60 mg PO DAILY 07/06/18 [History] Cyanocobalamin (B-12) [Vitamin B12] 1,000 mcg PO DAILY 07/07/18 [History] Dofetilide [Tikosyn] 0.5 mg PO 0900,2100 capsule 07/12/18 [Rx] Ferrous Sulfate 325 mg PO DAILY tablet 07/12/18 [Rx] Bumetanide [Bumex] 2 mg PO BIDDIURETIC #60 tablet 08/16/18 [Rx] Diltiazem CD (24hr) [Cardizem CD] 360 mg PO DAILY #60 cap.er.24h 08/16/18 [Rx] Metoprolol XL (24 HR) Succ [Toprol Xl] 75 mg PO BID #30 tab.er.24h 08/16/18 [Rx] Polyethylene Glycol 3350 [MiraLAX] 17 gm PO DAILY PRN powd.pack 08/16/18 [Rx] Warfarin [Coumadin] 5 mg PO DAILY #30 tablet 08/19/18 [Rx] Allergy/AdvReac Type Severity Reaction Status Date / Time albuterol Allergy See Verified 06/20/18 17:30 Comments aspirin [ASA] Allergy Difficulty Verified 06/20/18 17:30 Breathing Penicillins Allergy Hives Verified 06/20/18 17:30 Sulfa (Sulfonamide Allergy Rash Verified 06/20/18 17:30 Antibiotics) All Systems PM: A 10-system review of systems was performed and is negative for pertinent findings except as documented above in the HPI. - Constitutional Constitutional: fatigue, malaise, no chills, no falls - EENT Eyes: no blurry vision, no diplopia Nose, mouth and throat: no mouth pain, no neck pain, no throat swelling - Cardiovascular Cardiovascular ROS IM: no chest pain, no diaphoresis, no lightheadedness, no palpitations - Respiratory Respiratory: dyspnea on exertion, wheezing, no cough, no chest congestion, no excessive phlegm production - Gastrointestinal Gastrointestinal: no abdominal pain, no change in bowel habits, no nausea, no vomiting - Genitourinary Genitourinary: no dyspareunia, no dysuria, no flank pain - Musculoskeletal Musculoskeletal ROS IM: no arthralgias, no numbness, no tingling - Integumentary Integumentary IM: no erythema, no rash - Neurological Neurological ROS: no confusion, no dizziness, no focal weakness, no numbness - Psychiatric Psychiatric: no anxiety, no confusion, no depression - Hematologic/Lymphatic Hematologic/Lymphatic: no easy bleeding, no easy bruising - Constitutional Vitals: Temp Pulse Resp BP Pulse Ox 98.5 F 51 22 124/59 98 09/08/18 19:51 09/08/18 23:33 09/08/18 23:33 09/08/18 23:33 09/08/18 23:33 Exam: General: Patient is seated upright in bed and resting comfortably, she is easily arousable, no apparent distress HEENT: Atraumatic, pupils PERRLA with EOMI, anicteric sclera, moist mucous membranes Neck: Soft, full range of motion Cardiovascular: Bradycardic with regular rate and rhythm, no murmurs noted Respiratory: Diffuse expiratory wheezing to auscultation throughout, mild bibasilar crackles appreciated Abdomen: Obese, soft, nontender, bowel sounds present and normoactive, no guarding or rigidity Extremities: Pitting edema present bilaterally nearly to the level of the knees Integumentary: Discoloration and skin cracking of the bilateral lower extr emities secondary to edema and venous stasis Neuro: Alert and oriented to person, place, and situation. No focal deficits. Psych: Good fund of knowledge, answers questions appropriately with some pro mpting, appropriate mood and affect, suspect poor insight into current situation Internal Med - H&P Results - Labs CBC & Chem 7: 09/08/18 19:50 09/08/18 19:50 Labs: Short CBC 09/08/18 Range/Units 19:50 WBC 8.4 (4.3-11.1) K/mcL Hgb 8.0 L (11.5-15.4) g/dL Hct 30.3 L (35.3-44.9) % Plt Count 205 (140-400) K/mcL Neutrophils # 6.9 (1.6-8.9) K/mcL BMP 09/08/18 19:50 Sodium 142 Potassium 4.8 Chloride 97 L Carbon Dioxide 39 H BUN 45 H Creatinine 1.70 H Glucose 163 H Calcium 9.6 Cardiac Enzymes 09/08/18 Range/Units 19:50 Troponin I < 0.03 (< 0.04) ng/mL - Impressions ITS Impressions Chest X-Ray 09/08/18 19:42 IMPRESSION: Cardiomegaly and pulmonary edema. D/ / Curt Mallory MD / Curt Mallory MD Interpreting Provider: Curt aMllory MD - Assessment and plan (1) Symptomatic bradycardia Current Visit: Yes Status: Acute Assessment and plan: Symptomatic bradycardia History of atrial fibrillation on multiple medications which can have negative chronotropic cardiac effects including metoprolol succinate, diltiazem, and dofetilide Possible that patient took an extra dose of metoprolol this evening, will check her pill box EKG revealing junctional rhythm, current telemetry consistent with sinus bradycardia Hemodynamically stable Plan: Admit with telemetry monitoring Will hold home metoprolol, diltiazem, and dofetilide for the time being Cardiology consultation for evaluation of bradycardia, recommendations appreciated Of note patient's metoprolol is long-acting however remains dosed twice a day, consider reduction to once daily dosing (2) Acute kidney injury Current Visit: Yes Status: Acute Assessment and plan: TANO with serum creatinine of 1.7 Unclear if this injury is persistent from prior admission or is new Plan: Will resume patient's home diuretics with Bumex 2 mg twice a day Repeat BMP in the a.m. to evaluate for renal changes (3) Atrial fibrillation Current Visit: No Status: Chronic Assessment and plan: History of atrial fibrillation that is rate controlled Anticoagulated with Coumadin, current INR is 2.0 Presenting with bradycardia initially with junctional rhythm and now in sinus bradycardia Plan: We will hold home rate medications for bradycardia Cardiology evaluation in the a.m. Continue with Coumadin anticoagulation Qualifiers: Atrial fibrillation type: paroxysmal Qualified Code(s): I48.0 - Paroxysmal atrial fibrillation (4) Anemia Current Visit: No Status: Chronic Assessment and plan: Normocytic anemia that is chronic in nature No acute changes in H/H noted No evidence of acute or ongoing bleeding Iron profile from 05/2018 would suggest a mixed iron deficiency/anemia of chronic picture Stable at this time we will continue to monitor given anticoagulation status Consider discharge with iron supplementation Qualifiers: Anemia type: other cause Other causes of anemia: other cause, not classified Qualified Code(s): D64.89 - Other specified anemias (5) COPD (chronic obstructive pulmonary disease) Current Visit: No Status: Chronic Assessment and plan: COPD without acute exacerbation, requiring 4 L home oxygen at baseline Saturating in the mid to high 90s on 4L NC Plan: Supplemental oxygenation as necessary to maintain saturation of greater than 92% Will order duo nebs prn Continue home educations once verified Given 1 dose IV Lasix in the ED Will continue home Bumex for further diuresis Qualifiers: COPD type: unspecified COPD Qualified Code(s): J44.9 - Chronic obstructive pulmonary disease, unspecified (6) Heart failure with preserved ejection fraction Current Visit: No Status: Chronic Assessment and plan: History of diastolic heart failure with preserved ejection fraction Extended hospital stay and 07/2018 for diastolic heart failure exacerbation se condary to poor treatment compliance Patient weight is decreased nearly 10 kg from discharge on 08/20/2018 Pitting edema of the bilateral lower extremities persisting Plan: Continue with diuresis Bumex 2 mg twice a day Cardiac/renal diet Strict I's and O's, and 1.5 L fluid restriction Daily weights Qualifiers: Heart failure chronicity: chronic Qualified Code(s): I50.32 - Chronic diastolic (congestive) heart failure (7) Morbid obesity with BMI of 60.0-69.9, adult Current Visit: Yes Status: Chronic Assessment and plan: Morbid obesity with multiple comorbidities Patient reports compliance with dietary recommendations Lifestyle counseling provided during admission Consider dietary and physical therapy consultations (8) DVT prophylaxis Current Visit: Yes Status: Acute Assessment and plan: Patient is therapeutic on warfarin Continue warfarin with pharmacy to dose - Time Spent With Patient Total time spent is greater than 50% in coordination of care (as documented) at patient's floor/unit and/or counseling patient: <Sree Franklin - Last Filed: 09/09/18 05:39> Date of Encounter: 09/09/18 Internal Medicine - H&P: HPI History of present illness: Ms. Guevara is a 67 year old female All Systems PM: A 10-system review of systems was performed and is negative for pertinent findings except as documented above in the HPI. - Constitutional Vitals: Temp Pulse Resp BP Pulse Ox 98.9 F 53 24 120/61 94 09/09/18 03:30 09/09/18 03:30 09/09/18 03:30 09/09/18 03:30 09/09/18 03:30 Internal Med - H&P Results - Labs CBC & Chem 7: 09/08/18 19:50 09/09/18 03:53 Labs: Short CBC 09/08/18 Range/Units 19:50 WBC 8.4 (4.3-11.1) K/mcL Hgb 8.0 L (11.5-15.4) g/dL Hct 30.3 L (35.3-44.9) % Plt Count 205 (140-400) K/mcL Neutrophils # 6.9 (1.6-8.9) K/mcL BMP 09/08/18 09/09/18 19:50 03:53 Sodium 142 142 Potassium 4.8 5.0 Chloride 97 L 96 L Carbon Dioxide 39 H 40 H* BUN 45 H 52 H Creatinine 1.70 H 2.04 H Glucose 163 H 128 H Calcium 9.6 9.3 Cardiac Enzymes 09/08/18 Range/Units 19:50 Troponin I < 0.03 (< 0.04) ng/mL - Impressions ITS Impressions Chest X-Ray 09/08/18 19:42 IMPRESSION: Cardiomegaly and pulmonary edema. D/ / Curt Mallory MD / Curt Mallory MD Interpreting Provider: Curt Mallory MD - Assessment and plan (1) Heart failure with preserved ejection fraction Current Visit: No Status: Chronic Qualifiers: Heart failure chronicity: chronic Qualified Code(s): I50.32 - Chronic diastolic (congestive) heart failure (2) Atrial fibrillation Current Visit: No Status: Chronic Qualifiers: Atrial fibrillation type: paroxysmal Qualified Code(s): I48.0 - Paroxysmal atrial fibrillation (3) Symptomatic bradycardia Current Visit: Yes Status: Acute (4) Anemia Current Visit: No Status: Chronic Qualifiers: Anemia type: other cause Other causes of anemia: other cause, not classified Qualified Code(s): D64.89 - Other specified anemias (5) Morbid obesity with BMI of 60.0-69.9, adult Current Visit: Yes Status: Chronic (6) COPD (chronic obstructive pulmonary disease) Current Visit: No Status: Chronic Qualifiers: COPD type: unspecified COPD Qualified Code(s): J44.9 - Chronic obstructive pulmonary disease, unspecified (7) Acute kidney injury Current Visit: Yes Status: Acute (8) DVT prophylaxis Current Visit: Yes Status: Acute - Time Spent With Patient Total time spent is greater than 50% in coordination of care (as documented) at patient's floor/unit and/or counseling patient: - Attending Attestation I performed a history and physical exam of the patient and discussed management with the resident. I reviewed the resident's note and agree with the documented findings and plan of care. Alyssa Guevara is a 67 year old oxygen dependent woman with a history of COPD and diastolic heart failure who has been hospitalized many times of recent for a fluid overload state requiring high-dose diuretics. She has also been on anticoagulation, rate control agents and dofetilide for atrial fibrillation with a previous attempt for ZOILA cardioversion was deferred due to an abnormal morphology that would have increased her local for an embolic event. He comes in now for evaluation of weakness. She reported that she thinks she may have taken 2 tablets of her metoprolol succinate rather than her also furosemide but this remains unclear. She was noted bradycardic at home and therefore EMS was called. On arrival she was seen to have a junctional rhythm in the low 40s based on my review of her KEG. She received a few doses of atropine with minimal improvement. Blood pressures remained stable otherwise. She was also given a dose of IV diuretic because of an apparent fluid overloaded state. She is currently admitted for ongoing observation for bradycardia suspected secondary to beta balbina overdose. She received 1mg glucagon. She offers no complaints other than fatigue at the moment but wishes to go home today. Physical exam is notable for a morbidly obese white woman with expiratory wheezes diffusely. On med rec it is seen she takes metoprolol succinate 75mg twice a day rather than daily coupled with 360mg diltiazem CD daily in combination with her antiarrhythmic. It is likely her current situation is due to these medications and therefore will place them on hold for now. Monitor on telemetry. Cardiology consultation requested. Nebulizer therapy should be given. RM [facility].
[2018-09-09 04:50] LABS: Calcium 9.3 mg/dL (8.6-10.3)
[2018-09-09] MEDS ORDERED: Bumetanide 1 MG TABLET PO SCH ×2 (08:00→17:00)
[2018-09-09] MEDS ORDERED: Bumetanide 1 MG/4 ML VIAL IVP ONE (09:50)
--- NOTE | 2018-09-09 09:50 | Cardiology Consult Note ---
<Nolan Christie - Last Filed: 09/09/18 09:46> Date of Encounter: 09/09/18 Time of Encounter: 09:46 Assessment and Plan (1) Junctional bradycardia Current Visit: Yes Status: Acute On presentation patient found to have junctional bradycardia, HR 41 bpm. Repeat EKG this morning shows NSR, QT/QTc 422/434, QRS 85ms, HR 65 bpm. Home toprol XL, and tikosyn held last night. Cardizem held this morning. HR now in the 70's with Avg R 68 bpm. HR as low as 40 bpm seen early this am at 0344. Currently NSR. No junctional rhythm or afib seen on telemetry. Discussed with Dr. Cedillo. Recommend continuing home dose tikosyn. Hold toprol XL. We will restart cardizem as tolerated. We will continue to monitor telemetry with you. (2) Paroxysmal atrial fibrillation Current Visit: No Status: Acute H/o persistent afib. Currently maintained on tikosyn. Cardizem and toprol XL held. On coumadin therapy for group home AC. Goal INR 2.0-3.0. INR 2.0 today. Noted to have chronic stable anemia. (3) Diastolic congestive heart failure, NYHA class 3 Current Visit: No Status: Chronic Acute on chronic CHFpEF. Exacerbation likely secondary to missed doses of bumex. Last TTE 05/2018 LVEF 60-65%. Mild concentric left ventricular hypertrophy. Mild tricuspid regurgitation. SOB likely multifactoral with COPD. Suspect high CO2 with confusion. management of COPD per primary team. Note that lasix changed to bumex last admit and found to be more effective for patient. IV lasix given in ED with no significant out-put. Recommend IV bumex today. Repeat as needed. Strict I&O and daily weights. Monitor Scr. Qualifiers: Congestive heart failure chronicity: chronic Qualified Code(s): I50.32 - Chronic diastolic (congestive) heart failure Discussion w patient/family: The assessment and plan as outlined above was discussed with the patient and/or family members who expressed understanding and agreement. All questions were answered. Thank you for involving us in the care of your patient. Please call with any questions. History of Present Illness Consult date: 09/09/18 Requesting physician: Himanshu Garvin Consult reason: bradycardia Chief complaint: fatigue, drowsiness History of present illness: Ms. Guevara is a 67 year old female with past medical history significant for persistent afib on tikosyn, COPD on 4L home O2, HFpEF, chronic anemia, CKD who presents from home with the c/o drowsiness, fatigue, and SOB. The states that she just returned home after signing herself out of an extended care facility last . She was hospitalized last month for DCHF, COPD and atrial fibrillation with RVR. She was discharged to an ECF. He states that he was concerned she was not receiving her medications or physical therapy so she was signed out. She apparently missed several doses of her bumex. He states that last sunday night she started developing edema and SOB. Over the weekend she was noted to be sleeping more than usual and not feeling well. Her took her vitals and found her HR to be 38 bpm. He called EMS who also found her HR to be in the 30's. According to reports she was given atropine with no improvement in her HR. On my exa HR in the 70's. She appears to be drowsy and mildly confused. She is oriented to self and place. I re-oriented her to time. Patient falls asleep frequently during her exam. at bedside does most of the talking. She c/o SOB and orthopnea. C/o BLE edema increased. C/o fatigue. Denies chest pain. Denies dizziness or syncope. 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, heart cath no stent - Social History Smoking Status: Former smoker Smokeless Tobacco Status: No Alcohol use: none Drug use: none - Family History Brother Living Status: Grandfather Family Member Ethnicity: Non- Living Status: Hx Family Cardiac Disorders: Yes ([place], Afib, HTN) Sister Family Member Ethnicity: Non- Living Status: Hx Family Cardiac Disorders: Yes Hx Family Respiratory Disorders: Yes (COPD) Hx Family GI Disorders: Yes (Stomach ulcers) Mother Adopted: No Family Member Ethnicity: Non- Twin of Family Member: Yes, Fraternal Living Status: Hx Family Cardiac Disorders: Yes Hx Family Respiratory Disorders: Yes Hx Family Cancer: No Hx Family GI Disorders: No Hx Family Endocrine Disorder: No Hx Family Neuromuscular Disorders: No Hx Family Neurologic Disorders: No Hx Family HEENT Disorders: No Hx Family Autoimmune Disorders: No Father Adopted: No Family Member Ethnicity: Non- Twin of Family Member: Yes, Fraternal Living Status: Hx Family Cardiac Disorders: Yes (Afib, HTN, [place]) Hx Family Respiratory Disorders: Yes Hx Family Cancer: No Hx Family GI Disorders: No Hx Family Endocrine Disorder: No Hx Family Neuromuscular Disorders: No Hx Family Neurologic Disorders: No Hx Family HEENT Disorders: No Hx Family Autoimmune Disorders: No Medications and Allergies Alendronate Sodium [Fosamax] 70 mg PO WE 10/28/15 [History] Ascorbate Calcium [Vitamin C] 500 mg PO DAILY 10/28/15 [History] Tiotropium [Spiriva] 2 puff PO HS 10/28/15 [History] Oxygen 4 l NS CONT 10/24/16 [History] Fluticasone/Salmeterol [Advair 250-50 Diskus] 1 puff IH BID #1 blst.w.dev 11/16/16 [Rx] Montelukast [Singulair] 10 mg PO DAILY 11/29/16 [History] Calcium Carbonate [Calcium] 600 mg PO DAILY 05/08/17 [History] Acetaminophen/Diphenhydramine [Percogesic 325-12.5 mg Tablet] 2 tab PO HS 07/19/17 [History] Cholecalciferol (D-3) [Vitamin D] 1,000 unit PO DAILY 03/14/18 [History] Lisinopril 2.5 mg PO DAILY 03/14/18 [History] Omeprazole [PriLOSEC] 40 mg PO DAILY #30 cap 05/15/18 [Rx] Ropinirole HCl [Requip Xl] 4 mg PO HS 06/04/18 [History] Dexlansoprazole [Dexilant] 60 mg PO DAILY 07/06/18 [History] Cyanocobalamin (B-12) [Vitamin B12] 1,000 mcg PO DAILY 07/07/18 [History] Dofetilide [Tikosyn] 0.5 mg PO 0900,2100 capsule 07/12/18 [Rx] Ferrous Sulfate 325 mg PO DAILY tablet 07/12/18 [Rx] Bumetanide [Bumex] 2 mg PO BIDDIURETIC #60 tablet 08/16/18 [Rx] Diltiazem CD (24hr) [Cardizem CD] 360 mg PO DAILY #60 cap.er.24h 08/16/18 [Rx] Metoprolol XL (24 HR) Succ [Toprol Xl] 75 mg PO BID #30 tab.er.24h 08/16/18 [Rx] Polyethylene Glycol 3350 [MiraLAX] 17 gm PO DAILY PRN powd.pack 08/16/18 [Rx] Warfarin [Coumadin] 5 mg PO DAILY #30 tablet 08/19/18 [Rx] Allergy/AdvReac Type Severity Reaction Status Date / Time albuterol Allergy See Verified 06/20/18 17:30 Comments aspirin [ASA] Allergy Difficulty Verified 06/20/18 17:30 Breathing Penicillins Allergy Hives Verified 06/20/18 17:30 Sulfa (Sulfonamide Allergy Rash Verified 06/20/18 17:30 Antibiotics) All Systems Review: The remainder of the systems were reviewed and are negative Physical Examination Vital Signs, Last 4 Hours Temp Pulse Resp BP Pulse Ox 09/09/18 08:36 64 09/09/18 07:17 99.4 F 64 20 130/50 97 09/09/18 05:47 18 94 General: Other (Respirations easy on 4L oxygen, confused) HEENT: Atraumatic Neck: No JVD, Normal carotid pulses Cardiac: Reg Rate and Rhythm, Normal S1 and S2, No Murmur Lungs: Other (lung sounds diminished, expiratory wheezes.) Neuro: Alert and responsive, No focal deficits noted Abdomen: Soft, Non-Tender Skin: No rashes noted on visualized skin Musculoskeletal: No Chest Wall Tenderness Extremities: No Clubbing, No Cyanosis, Normal Pulses, Other (2+ pitting edema BL E. ) Results 09/08/18 19:50 09/09/18 03:53 Lab Results 09/08/18 09/08/18 09/08/18 19:50 19:50 19:50 WBC 8.4 Hgb 8.0 L Hct 30.3 L Plt Count 205 INR 2.0 APTT 27.8 Sodium 142 Potassium 4.8 Chloride 97 L Carbon Dioxide 39 H BUN 45 H Creatinine 1.70 H Glucose 163 H Calcium 9.6 Magnesium 2.3 Troponin I < 0.03 TSH 4.670 09/09/18 09/09/18 03:53 03:53 WBC Hgb Hct Plt Count INR 2.0 APTT Sodium 142 Potassium 5.0 Chloride 96 L Carbon Dioxide 40 H* BUN 52 H Creatinine 2.04 H Glucose 128 H Calcium 9.3 Magnesium Troponin I TSH - Imaging and Cardiology Echo: report reviewed - EKG Interpretation EKG results cardiology: personally reviewed Consult Discharge Plan - Plan Referrals: Lisbet Ray CNP [Primary Care Provider] - <Taniya Cedillo - Last Filed: 09/09/18 15:31> Date of Encounter: 09/09/18 - Attending Attestation I examined this patient and my medical decision-making was reviewed with the [employer]. I agree with the documented findings, disposition and treatment plan as described. Found to have junctional bradycardia on presenting ECG. Cardiac meds were held and this morning is back in NSR. Electrolytes - Mag, K - and TSH normal. Will restart Tikosyn and consider cautiously adding back AVN blockers if needed. Patient on coumadin - blood counts are stable. Agree with IV diuresis. Assessment and Plan Discussion w patient/family: The assessment and plan as outlined above was discussed with the patient and/or family members who expressed understanding and agreement. All questions were answered. Thank you for involving us in the care of your patient. Please call with any questions. History of Present Illness History of present illness: Ms. Guevara is a 67 year old female All Systems Review: The remainder of the systems were reviewed and are negative Results 09/08/18 19:50 09/09/18 03:53 Lab Results 09/08/18 09/08/18 09/08/18 19:50 19:50 19:50 WBC 8.4 Hgb 8.0 L Hct 30.3 L Plt Count 205 INR 2.0 APTT 27.8 Sodium 142 Potassium 4.8 Chloride 97 L Carbon Dioxide 39 H BUN 45 H Creatinine 1.70 H Glucose 163 H Calcium 9.6 Magnesium 2.3 Troponin I < 0.03 TSH 4.670 09/09/18 09/09/18 03:53 03:53 WBC Hgb Hct Plt Count INR 2.0 APTT Sodium 142 Potassium 5.0 Chloride 96 L Carbon Dioxide 40 H* BUN 52 H Creatinine 2.04 H Glucose 128 H Calcium 9.3 Magnesium Troponin I TSH
[2018-09-09] MEDS: Ipratropium/Albuterol Neb 3 ML IH SCH ×3 (11:02→22:48)
--- NOTE | 2018-09-09 13:53 | Event Note ---
Date of Encounter: 09/09/18 Time of Encounter: 13:53 - Cardiology Event Note HR now in the 70's. Pt has known persistent afib. Will add back low dose cardizem CD. Also recommend continued IV diuresis for significant fluid overload. Will repeat EKG in AM.
[2018-09-09] MEDS: Diltiazem CD (24hr) 120 MG CAPSULE PO SCH (15:00)
--- NOTE | 2018-09-09 15:19 | Event Note ---
Date of Encounter: 09/09/18 Time of Encounter: 15:12 Pt apparently was signed out AMA from swing bed facility by . Unclear what medications she has been taking at home. as been managing her meds which may not be accurate. Unclear what pt has been taking at home since she did not have appropriate discharge from swing bed facility. Seen by cardiology for symptomatic bradycardia. Will add nephrology consult due to TANO/CKD. Pt has gotten multiple doses of Bumex and one time dose of Lasix. Recommending daily weight, strict I and O's and fluid restriction.
--- NOTE | 2018-09-09 17:05 | Event Note ---
Date of Encounter: 09/09/18 Time of Encounter: 17:03 - Nephrology Event Note Consulted for TANO and Diuretic assistance in setting of Fluid overload. I reviewed her chart and prior renal work up and arrange for further testing. Not urgently hyperkalemic or severe TANO. Continue Bumex IV for now. Her metabolic alkalosis is in part from her respiratory acidosis (I've also ordered a VBG for AM). Sometimes off label use of Acetazolamide can be helpful for short term use, so will reconsider based upon her work up. I may also add Albumin with the loop diuretic depending upon further testing. Thank you for consulting [facility]: full consult to follow in AM.
[2018-09-09] MEDS: Bumetanide 1 MG/4 ML VIAL IVP SCH (17:56)
[2018-09-09] MEDS ORDERED: Warfarin perPT PO PRN (18:00)
[2018-09-09] MEDS ORDERED: *HR* Warfarin 5 MG TABLET PO SCH (18:00)
[2018-09-09] MEDS ORDERED: *HR* Warfarin 5 MG TABLET PO ONE (18:00)
[2018-09-09] MEDS: Budesonide/Formoterol 80/4.5 MDI IH SCH (22:48)
[2018-09-09] MEDS: Ropinirole Hcl [Requip Xl] 4 MG PO SCH (23:56)
[2018-09-10] MEDS: Acetaminophen 325 MG TABLET PO PRN ×2 (01:31→13:29)
[2018-09-10] MEDS: Ipratropium/Albuterol Neb 3 ML IH SCH ×4 (04:24→22:45)
[2018-09-10 05:23] LABS: Basophils % 0.2 %; Eosinophils # 0.1 K/mcL (0.0-0.6); Eosinophils % 1.7 %; Hematocrit 27.9 % (35.3-44.9); Hemoglobin 7.5 g/dL (11.5-15.4); Immature Granulocytes % 0.5 % (0-4); Lymphocytes # 0.9 K/mcL (0.6-4.6); Lymphocytes % 14.8 %; Mean Corpuscular HGB Conc 26.9 g/dL (31.6-35.5); Mean Corpuscular Hemoglobin 23.4 pg (28.0-33.3); Mean Corpuscular Volume 87.2 fL (83.0-100.0); Monocytes # 0.6 K/mcL (0.0-1.3); Monocytes % 9.8 %; Neutrophils # 4.3 K/mcL (1.6-8.9); Platelet Count 182 K/mcL (140-400); Red Cell Distribution Width 17.1 % (11.5-14.5)
[2018-09-10 05:26] LABS: INR 2.4; Prothrombin Time 27.2 Seconds (9.4-12.1)
[2018-09-10 05:28] LABS: VBG HCO3 44 mEq/L (21-27); VBG PCO2 61 mmHg (41-51); VBG PH 7.46 pH Units (7.32-7.42); VBG PO2 120 mmHg (25-50)
[2018-09-10 05:43] LABS: Albumin 3.5 g/dL (3.5-5.7); Calcium 9.4 mg/dL (8.6-10.3); Magnesium 2.2 mg/dL (1.6-2.6); Phosphorous 4.7 mg/dL (2.7-4.5); Potassium 4.3 mEq/L (3.5-5.1)
[2018-09-10 05:53] LABS: Hypochromasia Present (Not Present); Platelet Estimate Normal (Normal)
[2018-09-10] MEDS ORDERED: NON-FORMULARY MEDICATION 1 EACH EACH (Omeprazole [Prilosec] 40 MG) PO SCH (09:00)
[2018-09-10] MEDS: Bumetanide 1 MG/4 ML VIAL IVP SCH ×2 (09:03→19:24)
[2018-09-10] MEDS: Diltiazem CD (24hr) 120 MG CAPSULE PO SCH (09:04)
[2018-09-10] MEDS: Cyanocobalamin (B-12) 1,000 MCG TABLET PO SCH (09:04)
[2018-09-10] MEDS: Ascorbic Acid 500 MG TABLET PO SCH (09:04)
[2018-09-10] MEDS: Cholecalciferol (D-3) 1,000 UNIT TABLET PO SCH (09:04)
[2018-09-10] MEDS: Budesonide/Formoterol 80/4.5 MDI IH SCH ×2 (10:19→22:44)
--- NOTE | 2018-09-10 11:27 | Cardiology Progress Note ---
Date of Encounter: 09/10/18 Time of Encounter: 11:25 Assessment and Plan (1) Junctional bradycardia Current Visit: Yes Status: Acute On presentation patient found to have junctional bradycardia, HR 41 bpm. Repeat EKG 09/09/18 shows NSR, QT/QTc 422/434, QRS 85ms, HR 65 bpm. EKG today shows NSR, QT/QTc 403/429, QRS 91. Tikosyn continued at 0.5mg q12hr, cardizem restarted at lower dose. Patient and deny extra doses taken at home. brought home meds to confirm. HR now in the 70's with Avg R 71 bpm. No recurrent bradycardia seen. Continue tikosyn and cardizem. Continue to hold toprol. Cardiology will sign off. Please call with concerns or questions. Out-pt f/u will be re-scheduled. (2) Paroxysmal atrial fibrillation Current Visit: No Status: Acute H/o persistent afib. Currently maintained on tikosyn 0.5 mg BID and cardizem 120 mg daily. 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 Goal INR 2.0-3.0. INR 2.4 today. Noted to have chronic anemia. Patient reports having multiple endoscopies with no bleeding found. No current signs of bleeding. (3) Diastolic congestive heart failure, NYHA class 3 Current Visit: No Status: Chronic Acute on chronic CHFpEF. Exacerbation likely secondary to missed doses of bumex. Last TTE 05/2018 LVEF 60-65%. Mild concentric left ventricular hypertrophy. Mild tricuspid regurgitation. SOB likely multifactoral with COPD. Note that lasix changed to bumex last admit and found to be more effective for patient. IV lasix given in ED with no significant out-put and changed to IV bumex. Continues to have significant BLE edema. Note patient has some chronic edema but is significantly increased per . Patient would benefit from continued diuresis until near euvolemia. Switch back to oral bumex once improved. Appreciate nephrology recommendations with CKD and elevating Scr. Strict I&O and daily weights. Monitor Scr. Low sodium diet reviewed. Out-pt f/u will be coordinated. Qualifiers: Congestive heart failure chronicity: chronic Qualified Code(s): I50.32 - Chronic diastolic (congestive) heart failure Discussion w patient/family: The assessment and plan as outlined above was discussed with the patient and/or family members who expressed understanding and agreement. All questions were answered. Thank you for involving us in the care of your patient. Please call with any questions. Subjective Principal diagnosis: bradycardia, DCHF, COPD Interval history: Ms. Guevara is more alert today. She is sitting on the side of the bed. HR improved. She remains in NSR. Objective Vital Signs, Last 4 Hours Temp Pulse Resp BP Pulse Ox 09/10/18 11:21 98.8 F 89 20 160/59 09/10/18 10:21 16 98 General: Conversant, No Apparent Distress HEENT: Atraumatic, Normocephaly, Mucus Membranes Moist Neck: No JVD, Normal carotid pulses Cardiac: Reg Rate and Rhythm, Normal S1 and S2, No Murmur Lungs: Other (Lung sounds clear to auscultate, respirations easy on 4L NC. ) Neuro: Alert and responsive, No focal deficits noted Abdomen: Soft, Non-Tender Skin: Other (BLE extremities with redness and swelling. ) Musculoskeletal: No Chest Wall Tenderness Extremities: No Clubbing, No Cyanosis, Normal Pulses, Other (Extremities with 2- 3 + pitting edema) Results 09/10/18 05:00 09/10/18 05:00 Lab Results 09/10/18 09/10/18 09/10/18 05:00 05:00 05:00 WBC 5.9 Hgb 7.5 L Hct 27.9 L Plt Count 182 INR 2.4 Sodium 143 Potassium 4.3 Chloride 95 L Carbon Dioxide 43 H* BUN 57 H Creatinine 2.12 H Glucose 166 H Calcium 9.4 Magnesium 2.2 - EKG Interpretation EKG results cardiology: personally reviewed Consult Discharge Plan - Plan Referrals: Lisbet Ray, MIXING MACHINE OPERATOR [Primary Care Provider] -
[2018-09-10] MEDS: DEXLANSOPRAZOLE 60 MG PO SCH (13:00)
[2018-09-10] MEDS: acetaZOLAMIDE 250 MG TABLET PO SCH (13:28)
--- NOTE | 2018-09-10 13:46 | Nephrology Consult Note ---
Addendum entered and electronically signed by Cheikh Villalobos DO 09/11/18 18:36: I have personally performed a face to face evaluation on this patient. I have reviewed and agree with the care plan. History and Exam by me shows: 67 y/o WM morbidly obese with chronic O2 dep respiratory failure, CKD, recurring edema and metabolic alkalosis. To help her tolerate diuresis, recommend adding Albumin with the IV loop diuretics. I reviewed the pros/cons and SE profile and described the full reason for the Diamox/Acetazolamide for the secondary metabolic alkalosis, which can be tried PO for short term use. Continue to follow a renal protective strategy. Thank you. Original Note: Date of Encounter: 09/10/18 Time of Encounter: 13:38 Assessment and Plan (1) Acute kidney injury superimposed on chronic kidney disease Current Visit: Yes Status: Acute Baseline appears to be chronic kidney disease stage III. Should establish with Dr. Boucher in the office after discharge. Avoid nephrotoxins and renal dose all medications. TANO workup ordered by Dr. Cheryl Randall and is in process. Strict I&O Diamox ordered today will increase as needed. (2) COPD without exacerbation Current Visit: Yes Status: Acute Per primary. (3) Symptomatic bradycardia Current Visit: Yes Status: Acute Per cardiology. (4) Anemia Current Visit: No Status: Acute Goal Hgb is 10-11. Hgb is 7.5, stable. Transfusions per primary. Qualifiers: Anemia type: iron deficiency Iron deficiency anemia type: chronic blood loss Qualified Code(s): D50.0 - Iron deficiency anemia secondary to blood loss (chronic) History of Present Illness - Reason for Consult Consult date: 09/10/18 Acute Kidney Injury, Chronic Kidney Disease Requesting physician: Yu Whittaker - Chief Complaint fatigue and bradycardia - History of Present Illness Ms. Guevara is a 67 year old female who presented to the ED for increased fatigue and bradycardia. She was just recently discharged from the hospital with bilateral lower extreme a swelling and increased weakness. PMH: asthma, atrial fibrillation, CHF, COPD, GERD, hypertension, and CKD 3. Patient has not yet followed up with [facility], would encourage to make f/u when this discharge. Patient recently changed from by mouth Lasix to by mouth Bumex with better result. Continue IV Bumex, albumin added to be given 30 minutes before. Continue strict I&O. She is a former smoker, denies EtOH or illicit drug use. She was just recently discharged from a rehabilitation facility, she states that they left her in bed for "16 hours" a day and she did not receive physical therapy or occupational therapy. He does not want to return to an ECF she would like to go home on discharge. 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, heart cath no stent - Social History Smoking Status: Former smoker Smokeless Tobacco Status: No Alcohol use: none Drug use: none - Family History Brother Living Status: Grandfather Family Member Ethnicity: Non- Living Status: Hx Family Cardiac Disorders: Yes ([place], Afib, HTN) Sister Family Member Ethnicity: Non- Living Status: Hx Family Cardiac Disorders: Yes Hx Family Respiratory Disorders: Yes (COPD) Hx Family GI Disorders: Yes (Stomach ulcers) Mother Adopted: No Family Member Ethnicity: Non- Twin of Family Member: Yes, Fraternal Living Status: Hx Family Cardiac Disorders: Yes Hx Family Respiratory Disorders: Yes Hx Family Cancer: No Hx Family GI Disorders: No Hx Family Endocrine Disorder: No Hx Family Neuromuscular Disorders: No Hx Family Neurologic Disorders: No Hx Family HEENT Disorders: No Hx Family Autoimmune Disorders: No Father Adopted: No Family Member Ethnicity: Non- Twin of Family Member: Yes, Fraternal Living Status: Hx Family Cardiac Disorders: Yes (Afib, HTN, [place]) Hx Family Respiratory Disorders: Yes Hx Family Cancer: No Hx Family GI Disorders: No Hx Family Endocrine Disorder: No Hx Family Neuromuscular Disorders: No Hx Family Neurologic Disorders: No Hx Family HEENT Disorders: No Hx Family Autoimmune Disorders: No Medications and Allergies Alendronate Sodium [Fosamax] 70 mg PO WE 10/28/15 [History] Ascorbate Calcium [Vitamin C] 500 mg PO DAILY 10/28/15 [History] Tiotropium [Spiriva] 2 puff PO HS 10/28/15 [History] Oxygen 4 l NS CONT 10/24/16 [History] Fluticasone/Salmeterol [Advair 250-50 Diskus] 1 puff IH BID #1 blst.w.dev 11/16/16 [Rx] Montelukast [Singulair] 10 mg PO DAILY 11/29/16 [History] Calcium Carbonate [Calcium] 600 mg PO DAILY 05/08/17 [History] Acetaminophen/Diphenhydramine [Percogesic 325-12.5 mg Tablet] 2 tab PO HS 07/19/17 [History] Cholecalciferol (D-3) [Vitamin D] 1,000 unit PO DAILY 03/14/18 [History] Lisinopril 2.5 mg PO DAILY 03/14/18 [History] Omeprazole [PriLOSEC] 40 mg PO DAILY #30 cap 05/15/18 [Rx] Ropinirole HCl [Requip Xl] 4 mg PO HS 06/04/18 [History] Dexlansoprazole [Dexilant] 60 mg PO DAILY 07/06/18 [History] Cyanocobalamin (B-12) [Vitamin B12] 1,000 mcg PO DAILY 07/07/18 [History] Dofetilide [Tikosyn] 0.5 mg PO 0900,2100 capsule 07/12/18 [Rx] Ferrous Sulfate 325 mg PO DAILY tablet 07/12/18 [Rx] Bumetanide [Bumex] 2 mg PO BIDDIURETIC #60 tablet 08/16/18 [Rx] Diltiazem CD (24hr) [Cardizem CD] 360 mg PO DAILY #60 cap.er.24h 08/16/18 [Rx] Metoprolol XL (24 HR) Succ [Toprol Xl] 75 mg PO BID #30 tab.er.24h 08/16/18 [Rx] Polyethylene Glycol 3350 [MiraLAX] 17 gm PO DAILY PRN powd.pack 08/16/18 [Rx] Warfarin [Coumadin] 5 mg PO DAILY #30 tablet 08/19/18 [Rx] Allergy/AdvReac Type Severity Reaction Status Date / Time albuterol Allergy See Verified 06/20/18 17:30 Comments aspirin [ASA] Allergy Difficulty Verified 06/20/18 17:30 Breathing Penicillins Allergy Hives Verified 06/20/18 17:30 Sulfa (Sulfonamide Allergy Rash Verified 06/20/18 17:30 Antibiotics) Review of Systems All Systems review (narrative): The remainder of the systems are negative. Constitutional: fatigue, no chills, no fever(s) Cardiovascular: edema, no chest pain, no dyspnea Respiratory: no cough Gastrointestinal: no change in bowel habits, no diarrhea, no nausea, no vomiting Genitourinary Female: no hematuria, no urinary frequency, no urinary hesitancy, no urinary urgency Exam - Vital Signs Vital signs: Initial Vital Signs Temp Pulse Resp BP Pulse Ox 98.5 F 41 26 106/88 99 09/08/18 19:51 09/08/18 19:51 09/08/18 19:51 09/08/18 19:51 09/08/18 19:51 Vital Signs - Last 8 Hours Temp Pulse Resp BP Pulse Ox 09/10/18 11:21 98.8 F 89 20 160/59 09/10/18 10:21 16 98 Intake and Output 09/09/18 09/10/18 09/10/18 23:59 07:59 15:59 Intake Total 240 / 240 Output Total 750 / 750 600 / 600 700 / 700 Balance -750 / -750 -600 / -600 -460 / -460 Intake: Oral 240 / 240 Output: Urine 600 / 600 700 / 700 Catheter 750 / 750 Urethral (Patino) 600 / 600 Other: Meal Breakfast Percent of Meal Consumed 100% Weight 175.8 kg Blood Glucose* 139 130 Patient Weight 09/10/18 23:59 Weight 175.8 kg - General Appearance General appearance: well-developed, well-nourished, obese EENT: ATNC, hearing intact, vision intact Neck: supple Respiratory: clear Cardiology: edema (+2 pitting edema noted to bilateral lower extremities. Appears chronic.), normal S1, normal S2 Gastrointestinal: normoactive bowel sounds, no guarding Integumentary: chronic venous stasis Neurologic: alert and oriented x3 Musculoskeletal: no deformities, no erythema Psychiatric: mood/affect appropriate, cooperative Results - Lab Results 09/10/18 05:00 09/10/18 05:00 Most recent lab results Calcium 9.4 mg/dL (8.6-10.3) 09/10/18 05:00 Phosphorus 4.7 mg/dL (2.7-4.5) H 09/10/18 05:00 Magnesium 2.2 mg/dL (1.6-2.6) 09/10/18 05:00 Consult Discharge Plan - Plan Referrals: Lisbet Ray, MANOLO [Primary Care Provider] -
[2018-09-10] MEDS: Albumin 25% 25gram/100mL 25 GM/100 ML IV.SOLN IVPB SCH (16:47)
[2018-09-10] MEDS ORDERED: *HR* HYDROcodone/Acet 5/325 mg TABLET PO ONE (17:42)
[2018-09-10] MEDS ORDERED: *HR* Warfarin 2 MG TABLET PO ONE (18:00)
[2018-09-10] MEDS ORDERED: *HR* Warfarin 2.5 MG TABLET PO ONE (18:00)
--- NOTE | 2018-09-10 18:21 | Internal Med Progress Note ---
Hospitalist Progress Note - Encounter Date of Encounter: 09/10/18 Time of Encounter: 18:12 - Subjective Interval History: Pt states she is breathing better today. She denies chest pain. She denies fever, chills, N/V or diarrhea. - Exam Vitals: Temp Pulse Resp BP Pulse Ox 97.7 F 73 18 136/80 98 09/10/18 16:12 09/10/18 16:12 09/10/18 16:48 09/10/18 16:12 09/10/18 16:48 Exam: General: Patient is seated upright in bed and resting comfortably, no apparent distress, morbidly obese HEENT: Atraumatic, pupils PERRLA with EOMI, anicteric sclera, moist mucous membranes Neck: Soft, full range of motion Cardiovascular: Bradycardic with regular rate and rhythm, no murmurs noted Respiratory: Decreased breath sounds B/L, no wheezing, mild bibasilar crackles appreciated Abdomen: Obese, soft, non-tender, bowel sounds present and normoactive, no guarding or rigidity Extremities: Pitting edema present bilaterally nearly to the level of the knees Integumentary: Discoloration and skin cracking of the bilateral lower extremities secondary to edema and venous stasis Neuro: Alert and oriented to person, place, and situation. No focal deficits. Psych: Good fund of knowledge, answers questions appropriately with some prompting, appropriate mood and affect, suspect poor insight into current situation - Assessment and Plan (1) Heart failure with preserved ejection fraction Current Visit: No Status: Chronic Assessment and Plan: History of diastolic heart failure with preserved ejection fraction Extended hospital stay and 07/2018 for diastolic heart failure exacerbation secondary to poor treatment compliance Patient weight is decreased nearly 10 kg from discharge on 08/20/2018 Pitting edema of the bilateral lower extremities persisting Plan: Continue with diuresis Bumex 2 mg twice a day Cardiac/renal diet Strict I's and O's, and 1.5 L fluid restriction Daily weights (2) Atrial fibrillation Current Visit: No Status: Chronic Assessment and Plan: History of atrial fibrillation that is rate controlled. Anti-coagulated with Coumadin, current INR is 2.4. Presenting with bradycardia initially with junctional rhythm and now in sinus bradycardia. We will hold home rate medications for bradycardia Cardiology evaluated and noted junctional rhythm. Tikosyn continued at 0.5mg q12hr, cardizem restarted at lower dose. Patient and denied to cardiology that extra doses taken at home. brought home meds to confirm. Continue with Coumadin anticoagulation (3) Symptomatic bradycardia Current Visit: Yes Status: Acute Assessment and Plan: Symptomatic bradycardia History of atrial fibrillation on multiple medications which can have negative chronotropic cardiac effects including metoprolol succinate, diltiazem, and dofetilide EKG revealed junctional rhythm, hemodynamically stable. Admit with telemetry monitoring. Holding metoprolol. Restarted on diltiazem and dofetilide Cardiology consultation for evaluation of bradycardia, see recommendations. (4) Anemia Current Visit: No Status: Chronic Assessment and Plan: Normocytic anemia that is chronic in nature No acute changes in H/H noted No evidence of acute or ongoing bleeding Iron profile from 05/2018 would suggest a mixed iron deficiency/anemia of chronic picture Stable at this time we will continue to monitor given anticoagulation status Consider discharge with iron supplementation (5) Acute kidney injury superimposed on chronic kidney disease Current Visit: Yes Status: Acute Assessment and Plan: TANO with serum creatinine elevated Given multiple doses of Bumex 2 mg Repeat BMP in the a.m. to evaluate for renal changes. Nephrology on board (6) COPD (chronic obstructive pulmonary disease) Current Visit: No Status: Chronic Assessment and Plan: COPD without acute exacerbation, requiring 4 L home oxygen at baseline Saturating in the mid to high 90s on 4L NC Supplemental oxygenation as necessary to maintain saturation of greater than 92% Will order duo nebs prn Continue home educations once verified (7) DVT prophylaxis Current Visit: Yes Status: Acute Assessment and Plan: Patient is therapeutic on warfarin Continue warfarin with pharmacy to dose (8) Morbid obesity with BMI of 60.0-69.9, adult Current Visit: Yes Status: Chronic Assessment and Plan: Morbid obesity with multiple comorbidities Patient reports compliance with dietary recommendations Lifestyle counseling provided during admission Consider dietary and physical therapy consultations DVT Prophylaxis: Warfarin - Summary of Assessment and Plan Summary of Assessment and Plan: History of present illness: Dr. Villalobos/Bharathi Ms. Guevara is a 67 year old female with a past medical history significant for COPD on 4 L home oxygen, rate controlled atrial fibrillation anticoagulated with warfarin, lower extremity edema, diastolic heart failure, and recent discharge on 08/20/2018 after treatment of diastolic heart failure exacerbation, A. fib with RVR, and lower extremity edema. She is presenting for evaluation of malaise, fatigue, and shortness of breath. She reports she began "not feeling very well" in the afternoon. When this persisted she called for EMS transport for evaluation. She was discovered to have bradycardia, EMS did administer atropine with no benefit. Upon evaluation in the emergency department she was found to be hemodynamically stable. She remained fatigued but was easily arousable. Alert and oriented. No chest pain or dizziness reported. No nausea, vomiting, dizziness. EKG revealed a junctional rhythm bradycardia. Potassium 4.8 and magnesium of 2.3, negative troponin, TSH was normal limits. Elevated serum creatinine of 1.7. At the time of my evaluation patient is resting comfortably in bed. She reports mild shortness of breath and wheezing. No other acute complaints at this time. She states that her metoprolol and another medication look very similar and it is possible that she may have taken two metoprolol inadvertently, however she and her believe that this is not likely. Reports after last discharge she went to F facility, however she signed herself out after 48 hours to return home. They state she has been compliant with her dietary and fluid restrictions. Although they do note worsening lower extremity edema - Time Spent with Patient Total time spent is greater than 50% in coordination of care (as documented) at patient's floor/unit and/or counseling patient: less than 15 minutes Plan of Care Discussed with: patient Internal Medicine: Result - Labs CBC & Chem 7: 09/10/18 05:00 09/10/18 05:00 Labs: Short CBC 09/10/18 Range/Units 05:00 WBC 5.9 (4.3-11.1) K/mcL Hgb 7.5 L (11.5-15.4) g/dL Hct 27.9 L (35.3-44.9) % Plt Count 182 (140-400) K/mcL Neutrophils # 4.3 (1.6-8.9) K/mcL BMP 09/10/18 05:00 Sodium 143 Potassium 4.3 Chloride 95 L Carbon Dioxide 43 H* BUN 57 H Creatinine 2.12 H Glucose 166 H Calcium 9.4 Liver Function 09/10/18 Range/Units 05:00 Albumin 3.5 (3.5-5.7) g/dL - ABG Interpretation ABG results: PT/INR, D-dimer PT 27.2 Seconds (9.4-12.1) H 09/10/18 05:00 Consult Discharge Plan - Plan Referrals: Lisbet Ray, MANOLO [Primary Care Provider] - (1) Heart failure with preserved ejection fraction Qualifiers: Heart failure chronicity: chronic Qualified Code(s): I50.32 - Chronic diastolic (congestive) heart failure (2) Atrial fibrillation Qualifiers: Atrial fibrillation type: paroxysmal Qualified Code(s): I48.0 - Paroxysmal atrial fibrillation (4) Anemia Qualifiers: Anemia type: other cause Other causes of anemia: other cause, not classified Qualified Code(s): D64.89 - Other specified anemias (6) COPD (chronic obstructive pulmonary disease) Qualifiers: COPD type: unspecified COPD Qualified Code(s): J44.9 - Chronic obstructive pulmonary disease, unspecified
[2018-09-10 18:24] LABS: Bilirubin,Urine Negative (Negative); Blood,Urine Negative (Negative); Clarity,Urine Clear (Clear); Color,Urine Yellow (Yellow); Glucose,Urine (UA) Normal (Normal); Ketones,Urine Negative (Negative); Leukocyte Esterase,Urine Negative (Negative); Nitrite,Urine Negative (Negative); PH,Urine 5.5 pH Units (5.0-8.0); Protein,Urine Negative (Neg-Trace); Specific Gravity,Urine 1.011 (1.010-1.025); Urobilinogen,Urine Normal (Normal)
[2018-09-10] MEDS ORDERED: Tiotropium 18 MCG inhalation IH SCH (21:00)
[2018-09-10] MEDS: Ropinirole Hcl [Requip Xl] 4 MG PO SCH (22:20)
--- NOTE | 2018-09-10 23:47 | Electrocardiograph Report ---
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
[2018-09-11] MEDS: Ipratropium/Albuterol Neb 3 ML IH SCH ×4 (04:04→21:50)
[2018-09-11 06:44] LABS: INR 2.5; Prothrombin Time 28.4 Seconds (9.4-12.1)
[2018-09-11] MEDS: Albumin 25% 25gram/100mL 25 GM/100 ML IV.SOLN IVPB SCH ×2 (07:24→17:01)
[2018-09-11 08:36] LABS: Hematocrit 27.7 % (35.3-44.9); Hemoglobin 7.5 g/dL (11.5-15.4); Lymphocytes # 0.9 K/mcL (0.6-4.6); Mean Corpuscular HGB Conc 27.1 g/dL (31.6-35.5); Mean Corpuscular Hemoglobin 23.7 pg (28.0-33.3); Mean Corpuscular Volume 87.7 fL (83.0-100.0); Nucleated Red Blood Cells 0.3 /100 WBC (0); Platelet Count 215 K/mcL (140-400); Red Blood Count 3.16 M/mcL (3.82-4.97)
[2018-09-11 09:02] LABS: Calcium 9.8 mg/dL (8.6-10.3); Potassium 4.2 mEq/L (3.5-5.1)
--- NOTE | 2018-09-11 09:34 | Internal Med Progress Note ---
Hospitalist Progress Note - Encounter Date of Encounter: 09/11/18 Time of Encounter: 09:34 - Subjective Interval History: Pt states she is breathing better today and continues to improve slowly. Also states LE improving. She denies chest pain. She denies fever, chills, N/V or diarrhea. She denies abdominal pain. - Exam Vitals: Temp Pulse Resp BP Pulse Ox 99.3 F 83 20 153/69 93 09/11/18 08:24 09/11/18 08:24 09/11/18 08:24 09/11/18 08:24 09/11/18 08:24 Exam: Physical exam: General: Patient is seated upright in bed and resting comfortably, no apparent distress, morbidly obese HEENT: Atraumatic, pupils PERRLA with EOMI, anicteric sclera, moist mucous membranes Neck: Soft, full range of motion Cardiovascular: Bradycardic with regular rate and rhythm, no murmurs noted Respiratory: Decreased breath sounds B/L, no wheezing, mild bibasilar crackles appreciated Abdomen: Obese/rotund, soft, non-tender, bowel sounds present and normoactive, no guarding or rigidity. Unable to adequately assess for hepato-splenomegaly due to rotund nature of abdomen. Extremities: Pitting edema present bilaterally nearly to the level of the knees Integumentary: Discoloration and skin cracking of the bilateral lower extremities secondary to edema and venous stasis Neuro: Alert and oriented to person, place, and situation. No focal deficits. Psych: Good fund of knowledge, answers questions appropriately with some prompting, appropriate mood and affect, suspect poor insight into current situation - Assessment and Plan (1) Heart failure with preserved ejection fraction Current Visit: No Status: Chronic Assessment and Plan: History of diastolic heart failure with preserved ejection fraction. Extended hospital stay and 07/2018 for diastolic heart failure exacerbation secondary to poor treatment compliance Pitting edema of the bilateral lower extremities slowly improving. Continue with diuresis Bumex 2 mg IV twice a day Cardiac/renal diet Strict I's and O's, and 1.5 L fluid restriction Daily weights (2) Atrial fibrillation Current Visit: No Status: Chronic Assessment and Plan: History of atrial fibrillation that is rate controlled. Anti-coagulated with Coumadin, current INR therapeutic. Presenting with bradycardia initially with junctional rhythm and now in sinus bradycardia. Cardiology evaluated and noted junctional rhythm. Tikosyn continued at 0.5mg q12hr, cardizem restarted at lower dose. Patient and denied to cardiology that extra doses taken at home. brought home meds to confirm. Continue with Coumadin anticoagulation (3) Symptomatic bradycardia Current Visit: Yes Status: Acute Assessment and Plan: Symptomatic bradycardia Holding metoprolol. Restarted on diltiazem and dofetilide Cardiology consultation for evaluation of bradycardia, see recommendations. (4) Anemia Current Visit: No Status: Chronic Assessment and Plan: Normocytic anemia that is chronic in nature No acute changes in H/H noted No evidence of acute or ongoing bleeding Iron profile from 05/2018 would suggest a mixed iron deficiency/anemia of chronic picture Stable at this time we will continue to monitor given anticoagulation status Consider discharge with iron supplementation (5) Acute kidney injury superimposed on chronic kidney disease Current Visit: Yes Status: Acute Assessment and Plan: TANO with serum creatinine elevated Given multiple doses of Bumex 2 mg, now on Bumex IV Repeat BMP in the a.m. to evaluate for renal changes. Nephrology on board (6) COPD (chronic obstructive pulmonary disease) Current Visit: No Status: Chronic Assessment and Plan: COPD without acute exacerbation, requiring 4 L home oxygen at baseline Saturating in the mid to high 90s on 4L NC Supplemental oxygenation as necessary to maintain saturation of greater than 92% Duo nebs scheduled (7) Morbid obesity with BMI of 60.0-69.9, adult Current Visit: Yes Status: Chronic Assessment and Plan: Morbid obesity with multiple comorbidities Patient reports compliance with dietary recommendations Lifestyle counseling provided during admission Consider dietary and physical therapy consultations DVT Prophylaxis: Patient is therapeutic on warfarin Continue warfarin with pharmacy to dose - Summary of Assessment and Plan Summary of Assessment and Plan: History of present illness: Dr. Hopkins Ms. Guevara is a 67 year old female with a past medical history significant for COPD on 4 L home oxygen, rate controlled atrial fibrillation anticoagulated with warfarin, lower extremity edema, diastolic heart failure, and recent discharge on 08/20/2018 after treatment of diastolic heart failure exacerbation, A. fib with RVR, and lower extremity edema. She is presenting for evaluation of malaise, fatigue, and shortness of breath. She reports she began "not feeling very well" in the afternoon. When this persisted she called for EMS transport for evaluation. She was discovered to have bradycardia, EMS did administer atropine with no benefit. Upon evaluation in the emergency department she was found to be hemodynamically stable. She remained fatigued but was easily arousable. Alert and oriented. No chest pain or dizziness reported. No nausea, vomiting, dizziness. EKG revealed a junctional rhythm bradycardia. Potassium 4.8 and magnesium of 2.3, negative troponin, TSH was normal limits. Elevated serum creatinine of 1.7. At the time of my evaluation patient is resting comfortably in bed. She reports mild shortness of breath and wheezing. No other acute complaints at this time. She states that her metoprolol and another medication look very similar and it is possible that she may have taken two metoprolol inadvertently, however she and her believe that this is not likely. Reports after last discharge she went to F facility, however she signed herself out after 48 hours to return home. They state she has been compliant with her dietary and fluid restrictions. Although they do note worsening lower extremity edema - Time Spent with Patient Total time spent is greater than 50% in coordination of care (as documented) at patient's floor/unit and/or counseling patient: less than 15 minutes Plan of Care Discussed with: patient Internal Medicine: Result - Labs CBC & Chem 7: 09/11/18 07:43 09/11/18 07:43 Labs: Short CBC 09/11/18 Range/Units 07:43 WBC 6.0 (4.3-11.1) K/mcL Hgb 7.5 L (11.5-15.4) g/dL Hct 27.7 L (35.3-44.9) % Plt Count 215 (140-400) K/mcL BMP 09/11/18 07:43 Sodium 143 Potassium 4.2 Chloride 93 L Carbon Dioxide 44 H* BUN 53 H Creatinine 1.69 H Glucose 123 H Calcium 9.8 Urine 09/10/18 Range/Units 16:34 Urine Color Yellow (Yellow) Urine Clarity Clear (Clear) Urine pH 5.5 (5.0-8.0) pH Units Ur Specific [place] 1.011 (1.010-1.025) Urine Protein Negative (Neg-Trace) mg/dL Urine Glucose (UA) Normal (Normal) mg/dL - ABG Interpretation ABG results: PT/INR, D-dimer PT 28.4 Seconds (9.4-12.1) H 09/11/18 06:24 - Impressions Impressions Retroperitoneum Ultrasound 09/10/18 18:00 IMPRESSION: 1. Normal sonographic appearance of the kidneys and incompletely distended urinary bladder. 2. Right perinephric fluid of indeterminate significance. 3. Hepatic steatosis. D/ / Chalrie Khan MD / Charlie Khan MD Interpreting Provider: Charlie Khan MD Consult Discharge Plan - Plan Referrals: Lisbet Ray, TEST CAR DRIVER [Primary Care Provider] - (1) Heart failure with preserved ejection fraction Qualifiers: Heart failure chronicity: chronic Qualified Code(s): I50.32 - Chronic diastolic (congestive) heart failure (2) Atrial fibrillation Qualifiers: Atrial fibrillation type: paroxysmal Qualified Code(s): I48.0 - Paroxysmal atrial fibrillation (4) Anemia Qualifiers: Anemia type: other cause Other causes of anemia: other cause, not classified Qualified Code(s): D64.89 - Other specified anemias (6) COPD (chronic obstructive pulmonary disease) Qualifiers: COPD type: unspecified COPD Qualified Code(s): J44.9 - Chronic obstructive pulmonary disease, unspecified
--- NOTE | 2018-09-11 10:13 | Nephrology Progress Note ---
Addendum entered and electronically signed by Cheikh Villalobos DO 09/11/18 18:38: I have personally performed a face to face evaluation on this patient. I have reviewed and agree with the care plan. History and Exam by me shows: She appears to be tolerating the diuresis with IV loop plus Albumin. Need strict daily weights for best comparison of her volume status overtime, and strict I/Os are recommended too. The secondary metabolic alkalosis is primarily from her respiratory acidosis, but for shortterm use can use acetazolamide, which I again reviewed with the pt the details on this Rx for her situation. Transfusion thresholds as per primary. Cont to follow a renal protective strategy. Thank you. Addendum entered and electronically signed by Chikis Mcginnis CNP 09/11/18 15:15: Diomox increased to 250 mg PO BID. Original Note: Date of Encounter: 09/11/18 Time of Encounter: 10:11 - Assessment and Plan (1) Acute kidney injury superimposed on chronic kidney disease Current Visit: Yes Status: Acute Baseline appears to be chronic kidney disease stage III. Should establish with Dr. Boucher in the office after discharge. Avoid nephrotoxins and renal dose all medications. Strict I&O Diamox ordered today will increase as needed. (2) COPD without exacerbation Current Visit: Yes Status: Acute Per primary. (3) Symptomatic bradycardia Current Visit: Yes Status: Acute Per cardiology. (4) Anemia Current Visit: No Status: Acute Goal Hgb is 10-11. Hgb is 7.5, stable. Transfusions per primary. Qualifiers: Anemia type: iron deficiency Iron deficiency anemia type: chronic blood loss Qualified Code(s): D50.0 - Iron deficiency anemia secondary to blood loss (chronic) Subjective Principal diagnosis: bradycardia, DCHF, COPD Interval history: Pt seen and examined, is sitting up in the chair. Denies chest pain, nausea, vomiting, or diarrhea. Admits to chronic shortness of breath, she is on 4 L per nasal cannula which is dose. No acute events overnight. Objective - Vital Signs Vital signs: Vital Signs Temp Pulse Resp BP Pulse Ox 09/11/18 08:24 99.3 F 83 20 153/69 93 09/11/18 04:30 99.5 F 76 17 116/57 94 09/10/18 23:06 98.5 F 82 16 111/67 91 09/10/18 22:45 19 93 09/10/18 16:48 18 98 09/10/18 16:12 97.7 F 73 16 136/80 95 09/10/18 11:21 98.8 F 89 20 160/59 09/10/18 10:21 16 98 Intake and Output 09/10/18 09/11/18 09/11/18 23:59 07:59 15:59 Intake Total 1100 / 1100 Output Total 150 / 150 Balance 950 / 950 Intake: IV Fluids 100 / 100 Flexbumin 25 gm In 100 ml @ 60 100 / 100 mls/hr IVPB 0730,1630 TIM Rx#: [id number] Oral 1000 / 1000 Output: Urine 150 / 150 Other: Blood Glucose* 144 - General Appearance General appearance: Present: well-developed, well-nourished, obese EENT: Present: ATNC, hearing intact, vision intact Neck: Present: supple Respiratory: Present: clear Cardiology: Present: edema (+2 pitting edema noted to bilat lower extremities, appears chronic.), normal S1, normal S2 Gastrointestinal: Present: normoactive bowel sounds, no tenderness, no guarding Integumentary: Present: no rash, warm and dry, chronic venous stasis Neurologic: Present: alert and oriented x3 Musculoskeletal: Present: no deformities, no erythema Psychiatric: Present: mood/affect appropriate, cooperative - Lab 09/11/18 07:43 09/11/18 07:43 Most recent lab results Calcium 9.8 mg/dL (8.6-10.3) 09/11/18 07:43 Phosphorus 4.7 mg/dL (2.7-4.5) H 09/10/18 05:00 Magnesium 2.2 mg/dL (1.6-2.6) 09/10/18 05:00 Consult Discharge Plan - Plan Referrals: Lisbet Ray TRANSMISSION MAINTENANCE SUPERVISOR [Primary Care Provider] -
[2018-09-11] MEDS: Diltiazem CD (24hr) 120 MG CAPSULE PO SCH (10:20)
[2018-09-11] MEDS: Cyanocobalamin (B-12) 1,000 MCG TABLET PO SCH (10:21)
[2018-09-11] MEDS: Bumetanide 1 MG/4 ML VIAL IVP SCH ×2 (10:21→18:58)
[2018-09-11] MEDS: Ascorbic Acid 500 MG TABLET PO SCH (10:21)
[2018-09-11] MEDS: Cholecalciferol (D-3) 1,000 UNIT TABLET PO SCH (10:21)
[2018-09-11] MEDS: acetaZOLAMIDE 250 MG TABLET PO SCH ×2 (10:21→21:47)
[2018-09-11] MEDS: Budesonide/Formoterol 80/4.5 MDI IH SCH (10:37)
[2018-09-11 11:06] LABS: Eosinophils # 0.1 K/mcL (0.0-0.6); Monocytes # 0.4 K/mcL (0.0-1.3); Neutrophils # 4.5 K/mcL (1.6-8.9)
[2018-09-11 11:07] LABS: Basophilic Stippling 1+ (Not Present); Hypochromasia Present (Not Present); Platelet Estimate Normal (Normal); Poikilocytosis 1+ (Not Present); Polychromasia 1+ (Not Present)
[2018-09-11] MEDS: DEXLANSOPRAZOLE 60 MG PO SCH (13:16)
[2018-09-11] MEDS ORDERED: *HR* Warfarin 2.5 MG TABLET PO ONE (18:00)
[2018-09-11] MEDS ORDERED: Bumetanide 1 MG/4 ML VIAL IVP SCH (19:30)
--- NOTE | 2018-09-11 20:44 | Electrocardiograph Report ---
[place] [address] Test Date: 2018-09-08 Pat Name: Alyssa Guevara Department: EXAM2 Room: [facility] Gender: F Internal Control Analyst: : 1950 Requested By: Geovany Morales Order Number: [id number] Reading MD: Deon Mohan Measurements Intervals [place] Rate: 41 P: DE: QRS: 57 QRSD: 83 T: 18 QT: 557 QTc: 460 Interpretive Statements Junctional rhythm Low voltage, precordial leads Minimal ST depression, inferior leads Electronically Signed On 09-11-2018 20:42:57 EST by Deon Mohan
--- NOTE | 2018-09-11 21:25 | Electrocardiograph Report ---
[address] [place], [place] [address] Test Date: 2018-09-09 Pat Name: Alyssa Guevara Department: 110 Room: [facility] Gender: F Petrol Tanker Driver: : 1950 Requested By: Nolan Christie Order Number: [id number] Reading MD: Deon Mohan Measurements Intervals [place] Rate: 65 P: 61 PA: 163 QRS: 41 QRSD: 85 T: 14 QT: 422 QTc: 434 Interpretive Statements SINUS RHYTHM Electronically Signed On 09-11-2018 21:23:21 EST by Deon Mohan
[2018-09-11] MEDS: Ropinirole Hcl [Requip Xl] 4 MG PO SCH (21:46)
[2018-09-11] MEDS: ADVAIR PO SCH (21:50)
[2018-09-12] MEDS: Ipratropium/Albuterol Neb 3 ML IH SCH ×4 (04:16→22:00)
[2018-09-12 05:17] LABS: Basophils % 0.3 %; Immature Granulocytes % 0.7 % (0-4)
[2018-09-12 05:19] LABS: Eosinophils # 0.1 K/mcL (0.0-0.6); Eosinophils % 1.5 %; Hematocrit 29.4 % (35.3-44.9); Hemoglobin 7.6 g/dL (11.5-15.4); Lymphocytes # 0.8 K/mcL (0.6-4.6); Lymphocytes % 13.9 %; Mean Corpuscular HGB Conc 25.9 g/dL (31.6-35.5); Mean Corpuscular Volume 88.8 fL (83.0-100.0); Mean Platelet Volume 11.7 fL (9.4-12.4); Monocytes # 0.6 K/mcL (0.0-1.3); Monocytes % 9.8 %; Neutrophils # 4.4 K/mcL (1.6-8.9); Platelet Count 187 K/mcL (140-400); Red Blood Count 3.31 M/mcL (3.82-4.97); Segmented Neutrophils % 73.8 %
[2018-09-12 05:24] LABS: INR 2.3; Prothrombin Time 26.3 Seconds (9.4-12.1)
[2018-09-12 05:50] LABS: BUN/Creatinine Ratio 31 (6-26); Blood Urea Nitrogen 47 mg/dL (8-23); Calcium 9.9 mg/dL (8.6-10.3); Carbon Dioxide > 45 mEq/L (23-29); Chloride 94 mEq/L (98-107); Glucose 118 mg/dL (70-105); Osmolality,Calculated 317 (280-300); Potassium 4.4 mEq/L (3.5-5.1); Sodium 147 mEq/L (136-145); eGFR For Non-African Americans 33 (> 60)
[2018-09-12 06:05] LABS: Platelet Estimate Slight Decrease (Normal); Stomatocytes 2+ (Not Present)
[2018-09-12] MEDS: Ascorbic Acid 500 MG TABLET PO SCH (08:00)
[2018-09-12] MEDS: acetaZOLAMIDE 250 MG TABLET PO SCH ×2 (08:00→20:46)
[2018-09-12] MEDS: Diltiazem CD (24hr) 120 MG CAPSULE PO SCH (08:01)
[2018-09-12] MEDS: Cholecalciferol (D-3) 1,000 UNIT TABLET PO SCH (08:01)
[2018-09-12] MEDS: Albumin 25% 25gram/100mL 25 GM/100 ML IV.SOLN IVPB SCH ×2 (08:01→17:23)
[2018-09-12] MEDS: Cyanocobalamin (B-12) 1,000 MCG TABLET PO SCH (08:01)
[2018-09-12] MEDS: DEXLANSOPRAZOLE 60 MG PO SCH (08:02)
--- NOTE | 2018-09-12 10:24 | Nephrology Progress Note ---
Addendum entered and electronically signed by Cheikh Villalobos DO 09/13/18 08:21: I have personally performed a face to face evaluation on this patient. I have reviewed and agree with the care plan. History and Exam by me shows: Recommend de-escalating IV diuresis and to transition to a weaker oral diuretic remgimen to help maintain her weight. Original Note: Date of Encounter: 09/12/18 Time of Encounter: 10:21 - Assessment and Plan (1) Acute kidney injury superimposed on chronic kidney disease Current Visit: Yes Status: Acute Baseline appears to be chronic kidney disease stage III. Should establish with Dr. Boucher in the office after discharge. BMP 7 days after d/c, F/U in 4-6 weeks. Avoid nephrotoxins and renal dose all medications. Strict I&O Continue Diamox. (2) Heart failure with preserved ejection fraction Current Visit: Yes Status: Acute 1.5 Liter fluid restriction. Daily weights. Strict I/O's. Bumex decreased to 1 mg PO BID, starting with this afternoon's dose. Qualifiers: Qualified Code(s): I50.30 - Unspecified diastolic (congestive) heart failure (3) COPD without exacerbation Current Visit: Yes Status: Acute Per primary. (4) Symptomatic bradycardia Current Visit: Yes Status: Acute Per cardiology. (5) Anemia Current Visit: No Status: Acute Goal Hgb is 10-11. Hgb is 7.6, stable. Transfusions per primary. Qualifiers: Anemia type: iron deficiency Iron deficiency anemia type: chronic blood loss Qualified Code(s): D50.0 - Iron deficiency anemia secondary to blood loss (chronic) Subjective Principal diagnosis: bradycardia, CHF, COPD Interval history: Pt seen and examined, is still asleep in bed. She is very hard to arouse and took approximately 10 minutes to fully awaken for the interview. After that she did appear alert and oriented but was still slow to wake up at this time. Denies chest pain admits to chronic shortness of breath denies nausea vomiting or diarrhea. She continues to refuse BiPAP at night. Objective - Vital Signs Vital signs: Vital Signs Temp Pulse Resp BP Pulse Ox 09/12/18 08:21 99.4 F 87 20 143/69 91 09/12/18 04:16 20 97 09/12/18 03:25 98.7 F 78 19 169/82 90 02/07/19 01:01 98.6 F 81 19 132/61 94 09/11/18 21:52 18 96 09/11/18 20:05 98.5 F 87 18 150/70 95 09/11/18 16:11 18 96 09/11/18 16:01 97.6 F 74 20 157/72 96 09/11/18 12:58 99.2 F 89 20 114/78 93 09/11/18 10:39 18 96 Intake and Output 09/11/18 09/12/18 09/12/18 23:59 07:59 15:59 Intake Total 100 / 100 Output Total 800 / 800 Balance -700 / -700 Intake: IV Fluids 100 / 100 Flexbumin 25 gm In 100 ml @ 60 100 / 100 mls/hr IVPB 0730,1630 TIM Rx#: [id number] Output: Urine 800 / 800 Other: # Voids 1 Weight 164.27 kg Patient Weight 09/12/18 23:59 Weight 164.27 kg - General Appearance General appearance: Present: well-developed, well-nourished, obese EENT: Present: ATNC, hearing intact, vision intact Neck: Present: supple Respiratory: Present: clear Cardiology: Present: edema (Generalized edema noted to bilateral lower estremities.), normal S1, normal S2 Gastrointestinal: Present: normoactive bowel sounds, no tenderness, no guarding Integumentary: Present: no rash, warm and dry Neurologic: Present: alert and oriented x3 Musculoskeletal: Present: no deformities, no erythema Psychiatric: Present: mood/affect appropriate, cooperative - Lab 09/12/18 04:47 09/12/18 04:47 Most recent lab results Calcium 9.9 mg/dL (8.6-10.3) 09/12/18 04:47 Phosphorus 4.7 mg/dL (2.7-4.5) H 09/10/18 05:00 Magnesium 2.2 mg/dL (1.6-2.6) 09/10/18 05:00 Consult Discharge Plan - Plan Referrals: Lisbet Ray, [employer] MANAGER [Primary Care Provider] -
[2018-09-12] MEDS: Bumetanide 1 MG/4 ML VIAL IVP SCH (10:38)
--- NOTE | 2018-09-12 11:39 | Internal Med Progress Note ---
Hospitalist Progress Note - Encounter Date of Encounter: 09/12/18 Time of Encounter: 11:35 - Subjective Interval History: Pt's at bedside. Pt refusing to use BiPAP anf states she does not tolerate. She states she is breathing better today and continues to improve slowly. Also states LE improving. She denies chest pain. She denies fever, chills, N/V or diarrhea. She denies abdominal pain. - Exam Vitals: Temp Pulse Resp BP Pulse Ox 98.8 F 91 20 160/70 99 09/12/18 11:29 09/12/18 11:29 09/12/18 11:29 09/12/18 11:29 09/12/18 11:29 Exam: Physical exam: General: Patient is seated upright in bed and resting comfortably, no apparent distress, morbidly obese HEENT: Atraumatic, pupils PERRLA with EOMI, anicteric sclera, moist mucous membranes Neck: Soft, full range of motion Cardiovascular: regular rate and rhythm, no murmurs noted, distant heart sounds due to body habitus Respiratory: Decreased breath sounds B/L, no wheezing, mild bibasilar crackles appreciated Abdomen: Obese/rotund, soft, non-tender, bowel sounds present and normoactive, no guarding or rigidity. Unable to adequately assess for hepato-splenomegaly due to rotund nature of abdomen. Extremities: Pitting edema present bilaterally nearly to the level of the knees Integumentary: Discoloration and skin cracking of the bilateral lower extremities secondary to edema and venous stasis Neuro: Alert and oriented to person, place, and situation. No focal deficits. Psych: Good fund of knowledge, answers questions appropriately with some prompting, appropriate mood and affect, suspect poor insight into current situation - Assessment and Plan (1) Heart failure with preserved ejection fraction Current Visit: No Status: Chronic Assessment and Plan: History of diastolic heart failure with preserved ejection fraction. Extended hospital stay and 07/2018 for diastolic heart failure exacerbation secondary to poor treatment compliance Pitting edema of the bilateral lower extremities slowly improving. Discussed ith nephrology. Pt tolerated trial of albumin with Bumex 2 mg IV twice a day. Decreasing Bumex to 1 mg BID today Cardiac/renal diet Strict I's and O's, and 1.5 L fluid restriction Daily weights. checking renal function in am (2) Atrial fibrillation Current Visit: No Status: Chronic Assessment and Plan: History of atrial fibrillation that is rate controlled. Anti-coagulated with Coumadin, current INR therapeutic. Presenting with bradycardia initially with junctional rhythm and now in sinus bradycardia. Cardiology evaluated and noted junctional rhythm. Tikosyn continued at 0.5mg q12hr, cardizem restarted at lower dose. Patient and denied to cardiology that extra doses taken at home. brought home meds to confirm. Continue with Coumadin anticoagulation (3) Symptomatic bradycardia Current Visit: Yes Status: Acute Assessment and Plan: Symptomatic bradycardia Cardiology consultation for evaluation of bradycardia, see recommendations. Holding metoprolol. Restarted on diltiazem and dofetilide (4) Anemia Current Visit: No Status: Chronic Assessment and Plan: Normocytic anemia that is chronic in nature No acute changes in H/H noted No evidence of acute or ongoing bleeding Iron profile from 05/2018 would suggest a mixed iron deficiency/anemia of chronic picture Stable at this time we will continue to monitor given anticoagulation status Consider discharge with iron supplementation (5) Acute kidney injury superimposed on chronic kidney disease Current Visit: Yes Status: Acute Assessment and Plan: Nephrology on board [facility] with serum creatinine elevated Given multiple doses of Bumex 2 mg Then given albumin and Bumex IV. Bumex doses adjusted by nephro from 2 mg IV BID to 1 mg IV BID. Repeat BMP in the a.m. to evaluate for renal changes. (6) COPD (chronic obstructive pulmonary disease) Current Visit: No Status: Chronic Assessment and Plan: COPD without acute exacerbation, requiring 4 L home oxygen at baseline Saturating in the mid to high 90s on 4L NC Supplemental oxygenation as necessary to maintain saturation of greater than 92% Duo nebs scheduled Will order night time pulse oximetry tonight to see if she qualifies for BiPAP. (7) Morbid obesity with BMI of 60.0-69.9, adult Current Visit: Yes Status: Chronic Assessment and Plan: Morbid obesity with multiple comorbidities Patient reports compliance with dietary recommendations Lifestyle counseling provided during admission Consider dietary and physical therapy consultations DVT Prophylaxis: Patient is therapeutic on warfarin Continue warfarin with pharmacy to dose - Summary of Assessment and Plan Summary of Assessment and Plan: History of present illness: Dr. Hopkins Ms. Guevara is a 67 year old female with a past medical history significant for COPD on 4 L home oxygen, rate controlled atrial fibrillation anticoagulated with warfarin, lower extremity edema, diastolic heart failure, and recent discharge on 08/20/2018 after treatment of diastolic heart failure exacerbation, A. fib with RVR, and lower extremity edema. She is presenting for evaluation of malai se, fatigue, and shortness of breath. She reports she began "not feeling very well" in the afternoon. When this persisted she called for EMS transport for evaluation. She was discovered to have bradycardia, EMS did administer atropine with no benefit. Upon evaluation in the emergency department she was found to be hemodynamically stable. She remained fatigued but was easily arousable. Alert and oriented. No chest pain or dizziness reported. No nausea, vomiting, dizziness. EKG revealed a junctional rhythm bradycardia. Potassium 4.8 and magnesium of 2.3, negative troponin, TSH was normal limits. Elevated serum creatinine of 1.7. At the time of my evaluation patient is resting comfortably in bed. She reports mild shortness of breath and wheezing. No other acute complaints at this time. She states that her metoprolol and another medication look very similar and it is possible that she may have taken two metoprolol inadvertently, however she and her believe that this is not likely. Reports after last discharge she went to [facility]CF facility, however she signed herself out after 48 hours to return home. They state she has been compliant with her dietary and fluid res trictions. Although they do note worsening lower extremity edema - Time Spent with Patient Total time spent is greater than 50% in coordination of care (as documented) at patient's floor/unit and/or counseling patient: less than 15 minutes Plan of Care Discussed with: patient Internal Medicine: Result - Labs CBC & Chem 7: 09/12/18 04:47 09/12/18 04:47 Labs: Short CBC 09/12/18 Range/Units 04:47 WBC 5.9 (4.3-11.1) K/mcL Hgb 7.6 L (11.5-15.4) g/dL Hct 29.4 L (35.3-44.9) % Plt Count 187 (140-400) K/mcL Neutrophils # 4.4 (1.6-8.9) K/mcL BMP 09/12/18 04:47 Sodium 147 H Potassium 4.4 Chloride 94 L Carbon Dioxide > 45 H* BUN 47 H Creatinine 1.54 H Glucose 118 H Calcium 9.9 - ABG Interpretation ABG results: PT/INR, D-dimer PT 26.3 Seconds (9.4-12.1) H 09/12/18 04:47 Consult Discharge Plan - Plan Referrals: Lisbet Ray, MEDICAL OFFICE ASSISTANT [Primary Care Provider] - (1) Heart failure with preserved ejection fraction Qualifiers: Heart failure chronicity: chronic Qualified Code(s): I50.32 - Chronic diastolic (congestive) heart failure (2) Atrial fibrillation Qualifiers: Atrial fibrillation type: paroxysmal Qualified Code(s): I48.0 - Paroxysmal atrial fibrillation (4) Anemia Qualifiers: Anemia type: other cause Other causes of anemia: other cause, not classified Qualified Code(s): D64.89 - Other specified anemias (6) COPD (chronic obstructive pulmonary disease) Qualifiers: COPD type: unspecified COPD Qualified Code(s): J44.9 - Chronic obstructive pulmonary disease, unspecified
[2018-09-12 16:54] LABS: ABG Base Excess 19 mEq/L (-2 to 3); ABG HCO3 47 mEq/L (21-27); ABG Oxygen Saturation 93 % (95-98); ABG PCO2 90 mmHg (35-45); ABG PH 7.33 pH Units (7.32-7.45); ABG PO2 79 mmHg (85-104); ABG TCO2 > 50 mEq/L (20-26)
[2018-09-12] MEDS: Bumetanide 1 MG TABLET PO SCH (17:24)
[2018-09-12] MEDS ORDERED: *HR* Warfarin 5 MG TABLET PO ONE (18:00)
[2018-09-12] MEDS: Ropinirole Hcl [Requip Xl] 4 MG PO SCH (20:48)
[2018-09-12] MEDS: ADVAIR PO SCH (22:00)
[2018-09-12] MEDS ORDERED: Ondansetron 4 MG/2 ML VIAL IVP ONE (22:49)
[2018-09-13] MEDS: Ipratropium/Albuterol Neb 3 ML IH SCH ×4 (03:51→22:19)
[2018-09-13] MEDS ORDERED: Ondansetron ODT 4 MG TAB.RAPDIS SL ONE (05:25)
[2018-09-13 06:07] LABS: Eosinophils % 1.3 %
[2018-09-13 06:09] LABS: Basophils % 0.3 %; Eosinophils # 0.1 K/mcL (0.0-0.6); Hematocrit 32.9 % (35.3-44.9); Hemoglobin 8.7 g/dL (11.5-15.4); Immature Granulocytes % 0.5 % (0-4); Lymphocytes # 0.7 K/mcL (0.6-4.6); Lymphocytes % 7.8 %; Mean Corpuscular HGB Conc 26.4 g/dL (31.6-35.5); Mean Corpuscular Hemoglobin 23.5 pg (28.0-33.3); Mean Corpuscular Volume 88.7 fL (83.0-100.0); Mean Platelet Volume 11.8 fL (9.4-12.4); Monocytes # 0.9 K/mcL (0.0-1.3); Monocytes % 9.5 %; Platelet Count 197 K/mcL (140-400); Red Blood Count 3.71 M/mcL (3.82-4.97); Red Cell Distribution Width 17.1 % (11.5-14.5); Segmented Neutrophils % 80.6 %
[2018-09-13 06:17] LABS: Neutrophils # 7.7 K/mcL (1.6-8.9)
[2018-09-13 06:20] LABS: INR 2.2; Prothrombin Time 24.9 Seconds (9.4-12.1)
[2018-09-13 06:30] LABS: Calcium 10.5 mg/dL (8.6-10.3); Potassium 4.3 mEq/L (3.5-5.1)
[2018-09-13] MEDS: Diltiazem CD (24hr) 120 MG CAPSULE PO SCH (06:36)
[2018-09-13] MEDS: Albumin 25% 25gram/100mL 25 GM/100 ML IV.SOLN IVPB SCH (06:37)
[2018-09-13 09:14] LABS: Anisocytosis 1+ (Not Present); Hypochromasia Present (Not Present); Platelet Estimate Normal (Normal)
[2018-09-13] MEDS: acetaZOLAMIDE 250 MG TABLET PO SCH ×2 (10:01→22:01)
[2018-09-13] MEDS: Bumetanide 1 MG TABLET PO SCH ×2 (10:01→22:06)
[2018-09-13] MEDS: Cholecalciferol (D-3) 1,000 UNIT TABLET PO SCH (10:01)
[2018-09-13] MEDS: Ascorbic Acid 500 MG TABLET PO SCH (10:01)
[2018-09-13] MEDS: Cyanocobalamin (B-12) 1,000 MCG TABLET PO SCH (10:01)
[2018-09-13] MEDS: DEXLANSOPRAZOLE 60 MG PO SCH (10:01)
[2018-09-13] MEDS: ADVAIR PO SCH ×2 (10:40→22:19)
--- NOTE | 2018-09-13 17:13 | Internal Med Progress Note ---
Hospitalist Progress Note - Encounter Date of Encounter: 09/13/18 Time of Encounter: 13:00 - Subjective Interval History: Patient seen and examined at bedside. Patient states that she feels slightly better today. She feels like her breathing is improved. At this time she seems to be tolerating her BiPAP well. I did discuss this patient at length with the patient's and he is concerned about her noncompliance. - Exam Vitals: Temp Pulse Resp BP Pulse Ox 99.3 F 104 18 138/78 81 09/13/18 08:16 09/13/18 04:11 09/13/18 10:43 09/13/18 08:16 09/13/18 10:43 Exam: Gen.: No acute distress, tolerating BiPAP well Heart: Regular rate and rhythm, no murmurs, rubs, gallops Lungs diminished diffusely, no rales, rhonchi, wheezes appreciated Abdomen: Soft, nontender. Normoactive bowel sounds. - Assessment and Plan (1) Chronic respiratory failure with hypercapnia Current Visit: Yes Status: Acute Assessment and Plan: Patient has long-standing chronic respiratory failure that is resulted in multiple admissions. She is continually encouraged to wear her BiPAP however she is extremely noncompliant with this. voiced extreme frustration w ith her noncompliance. He did request either restraints or a sitter which I do not feel are appropriate at this time. When I evaluated the patient she seemed to be tolerating the BiPAP well for the time being. I strongly encouraged her to continue to wear the BiPAP as much as possible. (2) Heart failure with preserved ejection fraction Current Visit: Yes Status: Chronic Assessment and Plan: Patient has occurred on chronic diastolic heart failure requiring diuresis. She is diuresed relatively well during his hospitalization and overall appears to be improving. Has been transitioned to by mouth Bumex. (3) Atrial fibrillation Current Visit: Yes Status: Chronic Assessment and Plan: Patient has intermittent episodes of tachycardia likely due to agitation and noncompliance with BiPAP. Otherwise vital signs stable. Continue Tikosyn and Cardizem. Currently on warfarin for anticoagulation with an INR of 2.2. (4) Anemia Current Visit: Yes Status: Chronic Assessment and Plan: Hemoglobin improved today 0.7. No evidence of active bleeding. Continue to monitor. (5) Morbid obesity with BMI of 60.0-69.9, adult Current Visit: Yes Status: Chronic Assessment and Plan: Likely contributing to the patient's respiratory difficulties. Encourage ambulation and weight loss (6) COPD (chronic obstructive pulmonary disease) Current Visit: No Status: Chronic Assessment and Plan: Does not appear to be in acute exacerbation. Continue bronchodilators. (7) Acute kidney injury superimposed on chronic kidney disease Current Visit: Yes Status: Acute Assessment and Plan: Acute kidney injury on chronic kidney disease stage III appears improved. GFR increased at 34 today which appears to be close to the patient's baseline. Continue to closely monitor renal function given ongoing diuresis. DVT Prophylaxis: On warfarin, INR therapeutic - Time Spent with Patient Total time spent is greater than 50% in coordination of care (as documented) at patient's floor/unit and/or counseling patient: Internal Medicine: Result - Labs CBC & Chem 7: 09/13/18 05:51 09/13/18 05:51 Labs: Short CBC 09/13/18 Range/Units 05:51 WBC 9.5 D (4.3-11.1) K/mcL Hgb 8.7 L (11.5-15.4) g/dL Hct 32.9 L (35.3-44.9) % Plt Count 197 (140-400) K/mcL Neutrophils # 7.7 (1.6-8.9) K/mcL BMP 09/13/18 05:51 Sodium 145 Potassium 4.3 Chloride 91 L Carbon Dioxide 43 H* BUN 42 H Creatinine 1.51 H Glucose 148 H Calcium 10.5 H - ABG Interpretation ABG results: ABG ABG pH 7.33 pH Units (7.32-7.45) 09/12/18 16:49 ABG pCO2 90 mmHg (35-45) H* 09/12/18 16:49 ABG pO2 79 mmHg (85-104) L 09/12/18 16:49 ABG O2 Saturation 93 % (95-98) L 09/12/18 16:49 PT/INR, D-dimer PT 24.9 Seconds (9.4-12.1) H 09/13/18 05:51 Consult Discharge Plan - Plan Referrals: Lisbet Ray, EXPOSURE MACHINE OPERATOR [Primary Care Provider] - (2) Heart failure with preserved ejection fraction Qualifiers: Heart failure chronicity: acute on chronic Qualified Code(s): I50.33 - Acute on chronic diastolic (congestive) heart failure (3) Atrial fibrillation Qualifiers: Atrial fibrillation type: paroxysmal Qualified Code(s): I48.0 - Paroxysmal atrial fibrillation (4) Anemia Qualifiers: Anemia type: other cause Other causes of anemia: other cause, not classified Qualified Code(s): D64.89 - Other specified anemias (6) COPD (chronic obstructive pulmonary disease) Qualifiers: COPD type: unspecified COPD Qualified Code(s): J44.9 - Chronic obstructive pulmonary disease, unspecified
--- NOTE | 2018-09-13 17:25 | Nephrology Progress Note ---
Date of Encounter: 09/13/18 Time of Encounter: 17:24 - Assessment and Plan (1) Acute kidney injury superimposed on chronic kidney disease Current Visit: Yes Status: Acute Baseline appears to be chronic kidney disease stage III. Should establish with Dr. Boucher in the office after discharge. BMP 7 days after d/c, F/U in 4-6 weeks. Avoid nephrotoxins and renal dose all medications. Strict I&O Continue Diamox. Renal function is stable in the face of diuresis. We will sign off. Please call if any questions or concerns. (2) Anemia Current Visit: No Status: Acute Qualifiers: Anemia type: iron deficiency Iron deficiency anemia type: chronic blood loss Qualified Code(s): D50.0 - Iron deficiency anemia secondary to blood loss (chronic) (3) Symptomatic bradycardia Current Visit: Yes Status: Acute (4) COPD without exacerbation Current Visit: Yes Status: Acute (5) Heart failure with preserved ejection fraction Current Visit: Yes Status: Acute Qualifiers: Qualified Code(s): I50.30 - Unspecified diastolic (congestive) heart failure Subjective Principal diagnosis: bradycardia, CHF, COPD Interval history: Patient seen. Her is at the bedside. She is asleep. She is on BiPAP. Objective - Vital Signs Vital signs: Vital Signs Temp Pulse Resp BP Pulse Ox 09/13/18 10:43 18 81 09/13/18 08:16 99.3 F 138/78 09/13/18 04:11 98 F 104 20 146/70 96 09/13/18 03:51 24 95 09/13/18 02:54 98.6 F 122 20 154/61 97 09/13/18 01:20 98.4 F 112 20 124/56 95 09/13/18 00:55 26 92 09/12/18 22:00 18 95 09/12/18 19:51 98.6 F 85 19 179/69 92 Intake and Output 09/13/18 09/13/18 09/13/18 07:59 15:59 23:59 Intake Total 0 / 0 220 / 220 Output Total 25 / 25 Balance -25 / -25 220 / 220 Intake: IV Fluids 100 / 100 Flexbumin 25 gm In 100 ml @ 60 100 / 100 mls/hr IVPB 0730,1630 TIM Rx#: [id number] Oral 0 / 0 120 / 120 Output: Urine 0 / 0 Catheter 25 / 25 Other: Meal Breakfast Percent of Meal Consumed 100% Weight 164.5 kg Patient Weight 09/13/18 23:59 Weight 164.5 kg - General Appearance General appearance: Present: well-developed, well-nourished, obese EENT: Present: ATNC Cardiology: Present: regular rate Gastrointestinal: Present: obese - Lab 09/13/18 05:51 09/13/18 05:51 Most recent lab results ABG pH 7.33 pH Units (7.32-7.45) 09/12/18 16:49 ABG pCO2 90 mmHg (35-45) H* 09/12/18 16:49 ABG pO2 79 mmHg (85-104) L 09/12/18 16:49 ABG HCO3 47 mEq/L (21-27) H 09/12/18 16:49 ABG O2 Saturation 93 % (95-98) L 09/12/18 16:49 Calcium 10.5 mg/dL (8.6-10.3) H 09/13/18 05:51 Phosphorus 4.7 mg/dL (2.7-4.5) H 09/10/18 05:00 Magnesium 2.2 mg/dL (1.6-2.6) 09/10/18 05:00 Consult Discharge Plan - Plan Referrals: Lisbet Ray CNP [Primary Care Provider] -
[2018-09-13] MEDS ORDERED: *HR* Warfarin 5 MG TABLET PO ONE (18:00)
[2018-09-13 18:36] LABS: ABG Base Excess 17 mEq/L (-2 to 3); ABG HCO3 47 mEq/L (21-27); ABG Oxygen Saturation 38 % (95-98); ABG PCO2 91 mmHg (35-45); ABG PH 7.32 pH Units (7.32-7.45); ABG PO2 26 mmHg (85-104); ABG TCO2 49 mEq/L (20-26); Blood Gas PEEP 5 cm H2O; Blood Gas Respiration Rate 8
[2018-09-13] MEDS: Ropinirole Hcl [Requip Xl] 4 MG PO SCH (22:05)
[2018-09-14] MEDS ORDERED: Levalbuterol Neb 0.63 MG/3 ML IH PRN (03:51)
[2018-09-14 05:38] LABS: Basophils % 0.1 %; Eosinophils % 1.3 %; Nucleated Red Blood Cells 0.3 /100 WBC (0)
[2018-09-14 05:40] LABS: Eosinophils # 0.1 K/mcL (0.0-0.6); Hematocrit 28.3 % (35.3-44.9); Hemoglobin 7.3 g/dL (11.5-15.4); Immature Granulocytes % 0.7 % (0-4); Lymphocytes # 0.9 K/mcL (0.6-4.6); Mean Corpuscular HGB Conc 25.8 g/dL (31.6-35.5); Mean Corpuscular Hemoglobin 23.2 pg (28.0-33.3); Mean Corpuscular Volume 90.1 fL (83.0-100.0); Mean Platelet Volume 11.9 fL (9.4-12.4); Monocytes # 0.7 K/mcL (0.0-1.3); Monocytes % 10.3 %; Neutrophils # 5.4 K/mcL (1.6-8.9); Platelet Count 184 K/mcL (140-400); Red Blood Count 3.14 M/mcL (3.82-4.97); Red Cell Distribution Width 16.9 % (11.5-14.5); Segmented Neutrophils % 75.6 %
[2018-09-14 05:46] LABS: INR 2.1; Prothrombin Time 24.2 Seconds (9.4-12.1)
[2018-09-14 05:58] LABS: Anisocytosis 1+ (Not Present); Hypochromasia Present (Not Present); Macrocytosis Present (Not Present); Platelet Estimate Normal (Normal); Polychromasia 1+ (Not Present)
[2018-09-14 06:11] LABS: Calcium 10.1 mg/dL (8.6-10.3); Potassium 4.2 mEq/L (3.5-5.1)
[2018-09-14] MEDS ORDERED: *HR* Metoprolol 5 MG/5 ML VIAL IVP ONE (08:13)
[2018-09-14] MEDS: Ascorbic Acid 500 MG TABLET PO SCH (08:32)
[2018-09-14] MEDS: Cyanocobalamin (B-12) 1,000 MCG TABLET PO SCH (08:32)
[2018-09-14] MEDS: acetaZOLAMIDE 250 MG TABLET PO SCH ×2 (08:33→20:02)
[2018-09-14] MEDS: Diltiazem CD (24hr) 120 MG CAPSULE PO SCH (08:33)
[2018-09-14] MEDS: Cholecalciferol (D-3) 1,000 UNIT TABLET PO SCH (08:33)
[2018-09-14] MEDS: DEXLANSOPRAZOLE 60 MG PO SCH (08:34)
[2018-09-14] MEDS: Bumetanide 1 MG TABLET PO SCH ×2 (08:40→17:45)
[2018-09-14] MEDS: ADVAIR PO SCH ×2 (09:56→22:25)
[2018-09-14] MEDS: Levalbuterol Neb 0.63 MG/3 ML IH SCH ×3 (09:56→22:16)
--- NOTE | 2018-09-14 12:39 | Internal Med Progress Note ---
Hospitalist Progress Note - Encounter Date of Encounter: 09/14/18 Time of Encounter: 10:00 - Subjective Interval History: Patient seen and examined at bedside. Patient states that she feels better today. She is much more alert and responsive. She did state that she was compliant with her BiPAP throughout the night - Exam Vitals: Temp Pulse Resp BP Pulse Ox 100 F H 132 18 133/74 99 09/14/18 08:00 09/14/18 08:00 09/14/18 09:56 09/14/18 08:00 09/14/18 09:56 Exam: Gen.: No acute distress, tolerating BiPAP well at times Heart: Irregularly irregular, tachycardia, no murmurs, rubs, gallops Lungs diminished diffusely, no rales, rhonchi, wheezes appreciated Abdomen: Soft, nontender. Normoactive bowel sounds. - Assessment and Plan (1) Chronic respiratory failure with hypercapnia Current Visit: Yes Status: Acute Assessment and Plan: Patient has long-standing chronic respiratory failure that is resulted in multiple admissions. She reports compliance overnight however per nursing report she continued to pull BiPAP throughout the night and did require a sitter. I strongly impressed upon the patient that if she is not compliant with her BiPAP, this could be life-threatening. (2) Heart failure with preserved ejection fraction Current Visit: Yes Status: Chronic Assessment and Plan: Patient has occurred on chronic diastolic heart failure requiring diuresis. She is diuresed relatively well during his hospitalization and overall appears to be improving. Has been transitioned to by mouth Bumex, seems to be tolerating this well. We will restart beta balbina Toprol-XL at 25 mg daily (3) Atrial fibrillation Current Visit: Yes Status: Chronic Assessment and Plan: Patient is noted to be in A. fib with RVR this morning. Likely due to mild respiratory distress and noncompliance with BiPAP. Continue to encourage BiPAP use her beta balbina at lower dose. We will uptitrate Cardizem and beta balbina as blood pressure tolerates. Continue Tikosyn. Currently on warfarin for anticoagulation with an INR of 2.1. (4) Anemia Current Visit: Yes Status: Chronic Assessment and Plan: Hemoglobin stable. No evidence of active bleeding. Continue to monitor. (5) Morbid obesity with BMI of 60.0-69.9, adult Current Visit: Yes Status: Chronic Assessment and Plan: Likely contributing to the patient's respiratory difficulties. Encourage ambulation and weight loss (6) COPD (chronic obstructive pulmonary disease) Current Visit: No Status: Chronic Assessment and Plan: Does not appear to be in acute exacerbation. Continue bronchodilators. (7) Acute kidney injury superimposed on chronic kidney disease Current Visit: Yes Status: Acute Assessment and Plan: Acute kidney injury on chronic kidney disease stage III appears improved. GFR increased at 35 today which appears to be close to the patient's baseline. Continue to closely monitor renal function given ongoing diuresis. - Time Spent with Patient Total time spent is greater than 50% in coordination of care (as documented) at patient's floor/unit and/or counseling patient: Internal Medicine: Result - Labs CBC & Chem 7: 09/14/18 04:36 09/14/18 04:36 Labs: Short CBC 09/14/18 Range/Units 04:36 WBC 7.1 (4.3-11.1) K/mcL Hgb 7.3 L (11.5-15.4) g/dL Hct 28.3 L (35.3-44.9) % Plt Count 184 (140-400) K/mcL Neutrophils # 5.4 (1.6-8.9) K/mcL BMP 09/14/18 04:36 Sodium 143 Potassium 4.2 Chloride 95 L Carbon Dioxide 45 H* BUN 44 H Creatinine 1.48 H Glucose 152 H Calcium 10.1 - ABG Interpretation ABG results: ABG ABG pH 7.32 pH Units (7.32-7.45) 09/13/18 18:31 ABG pCO2 91 mmHg (35-45) H* 09/13/18 18:31 ABG pO2 26 mmHg (85-104) L* 09/13/18 18:31 ABG O2 Saturation 38 % (95-98) L 09/13/18 18:31 PT/INR, D-dimer PT 24.2 Seconds (9.4-12.1) H 09/14/18 04:36 Consult Discharge Plan - Plan Referrals: Lisbet Ray, DIRECTOR [employer] SALES [Primary Care Provider] - (2) Heart failure with preserved ejection fraction Qualifiers: Heart failure chronicity: acute on chronic Qualified Code(s): I50.33 - Acute on chronic diastolic (congestive) heart failure (3) Atrial fibrillation Qualifiers: Atrial fibrillation type: paroxysmal Qualified Code(s): I48.0 - Paroxysmal atrial fibrillation (4) Anemia Qualifiers: Anemia type: other cause Other causes of anemia: other cause, not classified Qualified Code(s): D64.89 - Other specified anemias (6) COPD (chronic obstructive pulmonary disease) Qualifiers: COPD type: unspecified COPD Qualified Code(s): J44.9 - Chronic obstructive pulmonary disease, unspecified
[2018-09-14] MEDS: Metoprolol XL (24 HR) Succ 25 MG TAB.ER.24H PO SCH (13:19)
[2018-09-14] MEDS ORDERED: *HR* Warfarin 5 MG TABLET PO ONE (18:00)
[2018-09-14] MEDS: Ropinirole Hcl [Requip Xl] 4 MG PO SCH (20:02)
[2018-09-15] MEDS: Levalbuterol Neb 0.63 MG/3 ML IH SCH ×4 (04:28→22:56)
[2018-09-15 07:06] LABS: Basophils % 0.4 %; Eosinophils # 0.1 K/mcL (0.0-0.6); Eosinophils % 1.2 %; Hemoglobin 7.5 g/dL (11.5-15.4); Immature Granulocytes % 0.8 % (0-4); Lymphocytes % 13.8 %; Mean Corpuscular HGB Conc 25.9 g/dL (31.6-35.5); Mean Corpuscular Hemoglobin 23.2 pg (28.0-33.3); Mean Corpuscular Volume 89.8 fL (83.0-100.0); Mean Platelet Volume 11.5 fL (9.4-12.4); Monocytes # 0.9 K/mcL (0.0-1.3); Monocytes % 11.8 %; Neutrophils # 5.3 K/mcL (1.6-8.9); Platelet Count 175 K/mcL (140-400); Red Blood Count 3.23 M/mcL (3.82-4.97); Red Cell Distribution Width 17.2 % (11.5-14.5)
[2018-09-15 07:16] LABS: INR 2.1; Prothrombin Time 23.9 Seconds (9.4-12.1)
[2018-09-15 07:28] LABS: Platelet Estimate Normal (Normal)
[2018-09-15 07:29] LABS: Hypochromasia Present (Not Present)
[2018-09-15 07:37] LABS: BUN/Creatinine Ratio 30 (6-26); Blood Urea Nitrogen 46 mg/dL (8-23); Calcium 9.9 mg/dL (8.6-10.3); Carbon Dioxide > 45 mEq/L (23-29); Chloride 94 mEq/L (98-107); Glucose 120 mg/dL (70-105); Osmolality,Calculated 309 (280-300); Potassium 4.2 mEq/L (3.5-5.1); Sodium 143 mEq/L (136-145); eGFR For Non-African Americans 33 (> 60)
[2018-09-15 09:11] LABS: VBG HCO3 46 mEq/L (21-27); VBG PCO2 93 mmHg (41-51); VBG PH 7.31 pH Units (7.32-7.42); VBG PO2 192 mmHg (25-50)
[2018-09-15] MEDS: acetaZOLAMIDE 250 MG TABLET PO SCH ×2 (09:26→19:56)
[2018-09-15] MEDS: Metoprolol XL (24 HR) Succ 25 MG TAB.ER.24H PO SCH (09:28)
[2018-09-15] MEDS: Cholecalciferol (D-3) 1,000 UNIT TABLET PO SCH (09:28)
[2018-09-15] MEDS: Bumetanide 1 MG TABLET PO SCH ×2 (09:28→17:21)
[2018-09-15] MEDS: Ascorbic Acid 500 MG TABLET PO SCH (09:28)
[2018-09-15] MEDS: Diltiazem CD (24hr) 120 MG CAPSULE PO SCH (09:28)
[2018-09-15] MEDS: Cyanocobalamin (B-12) 1,000 MCG TABLET PO SCH (09:28)
[2018-09-15] MEDS: DEXLANSOPRAZOLE 60 MG PO SCH (09:29)
[2018-09-15] MEDS: ADVAIR PO SCH ×2 (09:46→22:59)
[2018-09-15 12:12] LABS: ABG Base Excess 19 mEq/L (-2 to 3); ABG HCO3 47 mEq/L (21-27); ABG Oxygen Saturation 95 % (95-98); ABG PCO2 89 mmHg (35-45); ABG PH 7.34 pH Units (7.32-7.45); ABG PO2 89 mmHg (85-104); ABG TCO2 > 50 mEq/L (20-26)
--- NOTE | 2018-09-15 14:43 | Internal Med Progress Note ---
Hospitalist Progress Note - Encounter Date of Encounter: 09/15/18 Time of Encounter: 14:40 - Subjective Interval History: Pt asked me why I had a grin on my face, we talked in detail, and she ageed to have the bipap on and agreed for restraints if needed. - Exam Vitals: Temp Pulse Resp BP Pulse Ox 98.3 F 104 24 147/78 94 09/15/18 12:03 09/15/18 12:03 09/15/18 12:03 09/15/18 12:03 09/15/18 12:03 Exam: Gen.: No acute distress, tolerating BiPAP well at times Heart: Irregularly irregular, tachycardia, no murmurs, rubs, gallops Lungs diminished diffusely, no rales, rhonchi, wheezes appreciated Abdomen: Soft, nontender. Normoactive bowel sounds. DVT Prophylaxis: On warfarin, INR therapeutic - Summary of Assessment and Plan Summary of Assessment and Plan: (1) Chronic respiratory failure with hypercapnia Current Visit: Yes Status: Acute Assessment and Plan: pt to me is some what sympatmic from the hypercanpi we will do continous bipap till AM and recheck the abg we WILL RESTRAIN THE PT IF NEEDED FOR THE BIPAP, pt given permission as well, she was confused and took the mask off herself and not recalling it. will treat for COPDE, atlhgouh I could not hear wheezing given her body habitus, not too unusual. (2) Heart failure with preserved ejection fraction Current Visit: Yes Status: Chronic Assessment and Plan: Patient has occurred on chronic diastolic heart failure requiring diuresis. She is diuresed relatively well during his hospitalization and overall appears to be improving. Has been transitioned to by mouth Bumex, seems to be tolerating this well. We will restart beta balbina Toprol-XL at 25 mg daily --on ditlaiem wiill add metoprolol as well (3) Atrial fibrillation Current Visit: Yes Status: Chronic Assessment and Plan: Patient is noted to be in A. fib with RVR this morning. Likely due to mild respiratory distress and noncompliance with BiPAP. Continue to encourage BiPAP use her beta balbina at lower dose. We will uptitrate Cardizem and beta balbina as blood pressure tolerates. Continue Tikosyn. Currently on warfarin for anticoagulation with an INR of 2.1. (4) Anemia Current Visit: Yes Status: Chronic Assessment and Plan: Hemoglobin stable. No evidence of active bleeding. Continue to monitor. (5) Morbid obesity with BMI of 60.0-69.9, adult Current Visit: Yes Status: Chronic Assessment and Plan: Likely contributing to the patient's respiratory difficulties. Encourage ambulation and weight loss (6) COPD (chronic obstructive pulmonary disease) Current Visit: No Status: Chronic Assessment and Plan: Does not appear to be in acute exacerbation. Continue bronchodilators. (7) Acute kidney injury superimposed on chronic kidney disease Current Visit: Yes Status: Acute Assessment and Plan: Acute kidney injury on chronic kidney disease stage III appears improved. GFR increased at 35 today which appears to be close to the patient's baseline. Continue to closely monitor renal function given ongoing diuresis. 8)dispo: Needs the resp acidosis to resolve Time: 35 min - Time Spent with Patient Total time spent is greater than 50% in coordination of care (as documented) at patient's floor/unit and/or counseling patient: Internal Medicine: Result - Labs CBC & Chem 7: 09/15/18 06:52 09/15/18 06:52 Labs: Short CBC 09/15/18 Range/Units 06:52 WBC 7.4 (4.3-11.1) K/mcL Hgb 7.5 L (11.5-15.4) g/dL Hct 29.0 L (35.3-44.9) % Plt Count 175 (140-400) K/mcL Neutrophils # 5.3 (1.6-8.9) K/mcL BMP 09/15/18 06:52 Sodium 143 Potassium 4.2 Chloride 94 L Carbon Dioxide > 45 H* BUN 46 H Creatinine 1.54 H Glucose 120 H Calcium 9.9 - ABG Interpretation ABG results: ABG ABG pH 7.34 pH Units (7.32-7.45) 09/15/18 11:43 ABG pCO2 89 mmHg (35-45) H* 09/15/18 11:43 ABG pO2 89 mmHg (85-104) 09/15/18 11:43 ABG O2 Saturation 95 % (95-98) 09/15/18 11:43 PT/INR, D-dimer PT 23.9 Seconds (9.4-12.1) H 09/15/18 06:52 Consult Discharge Plan - Plan Referrals: Lisbet Ray, MANOLO [Primary Care Provider] -
[2018-09-15] MEDS: Budesonide Neb 0.5 MG/2 ML IH SCH ×2 (15:12→22:56)
[2018-09-15] MEDS: methylPREDNISolone 125 MG/2 ML VIAL IVP SCH ×2 (17:21→22:55)
[2018-09-15] MEDS ORDERED: *HR* Warfarin 5 MG TABLET PO SCH (18:00)
[2018-09-15] MEDS: Ropinirole Hcl [Requip Xl] 4 MG PO SCH (19:57)
[2018-09-15] MEDS: Melatonin 3 MG TABLET PO PRN (22:42)
[2018-09-16] MEDS ORDERED: *HR* LORazepam 2 MG/ML VIAL IVP ONE (01:05)
[2018-09-16 04:29] LABS: ABG Base Excess 17 mEq/L (-2 to 3); ABG HCO3 45 mEq/L (21-27); ABG Oxygen Saturation 97 % (95-98); ABG PCO2 79 mmHg (35-45); ABG PH 7.36 pH Units (7.32-7.45); ABG PO2 104 mmHg (85-104); ABG TCO2 47 mEq/L (20-26)
[2018-09-16] MEDS: Levalbuterol Neb 0.63 MG/3 ML IH SCH ×4 (04:30→21:56)
[2018-09-16] MEDS: methylPREDNISolone 125 MG/2 ML VIAL IVP SCH ×2 (05:49→12:11)
[2018-09-16] MEDS ORDERED: Diltiazem CD (24hr) 180 MG CAPSULE PO SCH (09:00)
[2018-09-16] MEDS: Bumetanide 1 MG TABLET PO SCH ×2 (09:56→17:11)
[2018-09-16] MEDS: Cyanocobalamin (B-12) 1,000 MCG TABLET PO SCH (09:56)
[2018-09-16] MEDS: Ascorbic Acid 500 MG TABLET PO SCH (09:56)
[2018-09-16] MEDS: acetaZOLAMIDE 250 MG TABLET PO SCH ×2 (09:56→20:48)
[2018-09-16] MEDS: DEXLANSOPRAZOLE 60 MG PO SCH (09:57)
[2018-09-16] MEDS: Cholecalciferol (D-3) 1,000 UNIT TABLET PO SCH (10:01)
[2018-09-16] MEDS: Budesonide Neb 0.5 MG/2 ML IH SCH ×2 (10:38→21:56)
[2018-09-16] MEDS: ADVAIR PO SCH (10:38)
[2018-09-16 10:57] LABS: Immature Granulocytes % 1.2 % (0-4); Mean Corpuscular Hemoglobin 23.4 pg (28.0-33.3); Mean Platelet Volume 11.9 fL (9.4-12.4)
[2018-09-16 10:59] LABS: Hematocrit 31.4 % (35.3-44.9); Hemoglobin 8.5 g/dL (11.5-15.4); Lymphocytes # 0.4 K/mcL (0.6-4.6); Lymphocytes % 7.6 %; Mean Corpuscular HGB Conc 27.1 g/dL (31.6-35.5); Mean Corpuscular Volume 86.5 fL (83.0-100.0); Monocytes # 0.1 K/mcL (0.0-1.3); Monocytes % 2.2 %; Neutrophils # 4.4 K/mcL (1.6-8.9); Platelet Count 208 K/mcL (140-400); Red Blood Count 3.63 M/mcL (3.82-4.97); Red Cell Distribution Width 16.8 % (11.5-14.5)
[2018-09-16] MEDS ORDERED: Diltiazem CD (24hr) 240 MG CAPSULE PO SCH (11:00)
[2018-09-16 11:05] LABS: INR 1.9; Prothrombin Time 21.9 Seconds (9.4-12.1)
[2018-09-16 11:12] LABS: Hypochromasia Present (Not Present); Platelet Estimate Normal (Normal)
[2018-09-16 11:20] LABS: Calcium 9.8 mg/dL (8.6-10.3); Potassium 4.6 mEq/L (3.5-5.1)
[2018-09-16] MEDS: dilTIAZem HCl 60 MG TABLET PO SCH ×2 (12:12→20:48)
--- NOTE | 2018-09-16 12:41 | Internal Med Progress Note ---
Hospitalist Progress Note - Encounter Date of Encounter: 09/16/18 Time of Encounter: 12:38 - Subjective Interval History: talked to the pt, she is still very sleepy. THe has many questions, he is very concerned because pt was on sotlol and devleoped bradycardia from renal faliure. He also has questions about the puffy hand etc, etc. - Exam Vitals: Temp Pulse Resp BP Pulse Ox 98.4 F 92 18 106/75 97 09/16/18 11:39 09/16/18 11:39 09/16/18 11:39 09/16/18 11:39 09/16/18 11:39 Exam: Gen.: No acute distress, tolerating BiPAP well at times Heart: Irregularly irregular, tachycardia, no murmurs, rubs, gallops Lungs diminished diffusely, no rales, rhonchi, wheezes appreciated Abdomen: Soft, nontender. Normoactive bowel sounds. DVT Prophylaxis: On warfarin, INR therapeutic - Summary of Assessment and Plan Summary of Assessment and Plan: (1) Chronic respiratory failure with hypercapnia Current Visit: Yes Status: Acute Assessment and Plan: pt is doing better, pH is at 3.5 we will cont the intermittent bipap cont steorid and breathing treament (2) Heart failure with preserved ejection fraction Current Visit: Yes Status: Chronic Assessment and Plan: doesn't want metoprolol we will titrate up the calcium channel blokcer incease the diltizem to 240 daily (3) Atrial fibrillation Current Visit: Yes Status: Chronic Assessment and Plan: Patient is noted to be in A. fib with RVR this morning. Likely due to mild respiratory distress and noncompliance with BiPAP. Continue to encourage BiPAP use her beta balbina at lower dose. We will uptitrate Cardizem and beta balbina as blood pressure tolerates. Continue Tikosyn. Currently on warfarin for anticoagulation with an INR of 2.1. continue to rate contorl and pt is on coumadin (4) Anemia Current Visit: Yes Status: Chronic Assessment and Plan: Hemoglobin stable. No evidence of active bleeding. Continue to monitor. (5) Morbid obesity with BMI of 60.0-69.9, adult Current Visit: Yes Status: Chronic Assessment and Plan: Likely contributing to the patient's respiratory difficulties. Encourage ambulation and weight loss (6) COPD (chronic obstructive pulmonary disease) Current Visit: No Status: Chronic Assessment and Plan: Does not appear to be in acute exacerbation. Continue bronchodilators. (7) Acute kidney injury superimposed on chronic kidney disease Current Visit: Yes Status: Acute Assessment and Plan: Acute kidney injury on chronic kidney disease stage III appears improved. GFR increased at 35 today which appears to be close to the patient's baseline. Continue to closely monitor renal function given ongoing diuresis. 8)dispo: intermittent biipap the to rehab, pt is in the process of getting bipap machine Time: 35 min - Time Spent with Patient Total time spent is greater than 50% in coordination of care (as documented) at patient's floor/unit and/or counseling patient: Internal Medicine: Result - Labs CBC & Chem 7: 09/16/18 10:46 09/16/18 10:46 Labs: Short CBC 09/16/18 Range/Units 10:46 WBC 4.9 (4.3-11.1) K/mcL Hgb 8.5 L (11.5-15.4) g/dL Hct 31.4 L (35.3-44.9) % Plt Count 208 (140-400) K/mcL Neutrophils # 4.4 (1.6-8.9) K/mcL BMP 09/16/18 10:46 Sodium 142 Potassium 4.6 Chloride 93 L Carbon Dioxide 43 H* BUN 50 H Creatinine 1.48 H Glucose 211 H Calcium 9.8 - ABG Interpretation ABG results: ABG ABG pH 7.36 pH Units (7.32-7.45) 09/16/18 04:26 ABG pCO2 79 mmHg (35-45) H* 09/16/18 04:26 ABG pO2 104 mmHg (85-104) 09/16/18 04:26 ABG O2 Saturation 97 % (95-98) 09/16/18 04:26 PT/INR, D-dimer PT 21.9 Seconds (9.4-12.1) H 09/16/18 10:46 Consult Discharge Plan - Plan Referrals: Lisbet Ray, DIRECTOR [employer] [Primary Care Provider] -
[2018-09-16] MEDS: MethylPREDNISolone 40 MG/ML VIAL IVP SCH (17:12)
[2018-09-16] MEDS ORDERED: *HR* Warfarin 7.5 MG TABLET PO ONE (18:00)
[2018-09-16] MEDS: Ropinirole Hcl [Requip Xl] 4 MG PO SCH (20:48)
[2018-09-16] MEDS: Melatonin 3 MG TABLET PO PRN (20:48)
[2018-09-17] MEDS: MethylPREDNISolone 40 MG/ML VIAL IVP SCH ×3 (00:34→11:18)
[2018-09-17] MEDS: Acetaminophen 325 MG TABLET PO PRN ×2 (04:02→21:38)
[2018-09-17] MEDS: Levalbuterol Neb 0.63 MG/3 ML IH SCH ×4 (04:25→22:07)
[2018-09-17 06:19] LABS: Red Cell Distribution Width 16.8 % (11.5-14.5)
[2018-09-17 06:21] LABS: Basophils % 0.2 %; Hematocrit 29.3 % (35.3-44.9); Lymphocytes # 0.3 K/mcL (0.6-4.6); Lymphocytes % 6.7 %; Mean Corpuscular HGB Conc 27.3 g/dL (31.6-35.5); Mean Corpuscular Hemoglobin 23.5 pg (28.0-33.3); Mean Corpuscular Volume 86.2 fL (83.0-100.0); Mean Platelet Volume 12.1 fL (9.4-12.4); Monocytes # 0.3 K/mcL (0.0-1.3); Monocytes % 5.9 %; Neutrophils # 4.4 K/mcL (1.6-8.9); Platelet Count 203 K/mcL (140-400); Segmented Neutrophils % 86.2 %
[2018-09-17 06:32] LABS: INR 2.1; Prothrombin Time 24.1 Seconds (9.4-12.1)
[2018-09-17 06:46] LABS: Calcium 9.5 mg/dL (8.6-10.3); Potassium 4.3 mEq/L (3.5-5.1)
[2018-09-17 06:58] LABS: Hypochromasia Present (Not Present); Platelet Estimate Normal (Normal)
[2018-09-17] MEDS: Cyanocobalamin (B-12) 1,000 MCG TABLET PO SCH (08:40)
[2018-09-17] MEDS: Ascorbic Acid 500 MG TABLET PO SCH (08:40)
[2018-09-17] MEDS: acetaZOLAMIDE 250 MG TABLET PO SCH ×2 (08:40→21:37)
[2018-09-17] MEDS: Cholecalciferol (D-3) 1,000 UNIT TABLET PO SCH (08:41)
[2018-09-17] MEDS: Diltiazem CD (24hr) 240 MG CAPSULE PO SCH (08:41)
[2018-09-17] MEDS: Bumetanide 1 MG TABLET PO SCH (08:41)
[2018-09-17] MEDS: DEXLANSOPRAZOLE 60 MG PO SCH (08:43)
[2018-09-17] MEDS: Budesonide Neb 0.5 MG/2 ML IH SCH ×2 (09:48→22:07)
--- NOTE | 2018-09-17 14:02 | Palliative - Consult Note ---
Date of Encounter: 09/17/18 Time of Encounter: 16:00 - Assessment and Plan (1) Dyspnea Current Visit: No Status: Acute Assessment and plan: Remains on pulmicort/Xopenex/Prednisone as well as oxygen/bipap. States breathing has improved and tolerating bipap better. Will monitor. Qualifiers: Dyspnea type: dyspnea on exertion Qualified Code(s): R06.09 - Other forms of dyspnea (2) Goals of care, counseling/discussion Current Visit: Yes Status: Acute Assessment and plan: Met with pt/ Catarino at bedside. Began goals of care discussion. Catarino went at great length discussing her multiple medical problems, care that she has received and some frustration with inconsistencies with her medical management. Discussed that medications have been changed by different providers that have caused her to have further problems and adverse events. After last hospitalization, pt d/c to [facility] in [place] - and he states she got " 2 min of therapy a day", and she was miserable and signed out. Stated that they make too much money to qualify for [employer] services. Stated that have had [facility] twice, and they did not received the care they should have. Have a family friend that they hire 3-4 days a week to stay with her when Catarino working. Already has multiple DME's in place at home. Patient's ultimate goal would be to get strong enough to return home. Discussed code status at length - patient states that she "wanted resuscitated once". Patient appears unsure and states "I don't want someone jumping up and down on my chest". Discussed code status DNR-Arrest and DNRCC and differences. They did not come to a consensus, and patient stated that she was tired of talking. I told her I would revisit in am. At this time, they are desiring to go to [place] for rehab. Will d/w social work. (3) Chronic atrial fibrillation Current Visit: No Status: Chronic (4) Chronic respiratory failure with hypoxia Current Visit: No Status: Chronic Assessment and plan: Continues with supportive oxygen and bipap at night and intermittently throughout the day. She states she is tolerating this better, states that sometime she takes it off when she is asleep and "doesn't realize it". She has been qualified for this here. Palliative-CN HPI - Data of Consult Consult date: 09/17/18 Requesting Physician: Bryon Ross MD Primary Care Provider: Lisbet Ray CNP - Consult Narrative History of present illness: Ms. Guevara is a 67 year old female who presented to the ED a week ago for increased lethargy, and found her heart rate was in the 30's. She was recently discharged from the hospital for bilateral lower extremity edema and CHF exacerbation, and had went to rehab. According to chart review, patient's signed her out AMA when thought she was not getting enough therapy. Upon admission, there was question if she took extra medication which caused her bradycardia. Cardiology had seen prior in admission, however, cardiac status stable, so they signed off after recommendations. She also has hypercapnic respiratory failure with CO2 on ABG's ranging from 92-91 since admission. Bipap has been utilized, however, patient has been noncompliant, and stating that she doesn't want it on. Qualification for home bipap has been completed. Nephrology has also been consulted during this admission for stage III CKD. She has complex medical history with CHF, atrial fibrillation on warfain, asthma, COPD, GERD, HTN, CKD. Appears this is her 6th hospital stay since 03/25 18, admissions include complications r/t atrial fibrillation, breathing difficulties, and falls. Upon my visit, patient is asleep, does awaken easily and can tell me name, , and she is at [place], however, need reoriented to time and situation. She appears confused during conversation, and makes inappropriate comments to questions. Appears in no distress. Lunch tray is still present, and appears to have taken approx 50% of this. She does denies any discomfort and does state her "breathing is better". States was here "earlier", but no family currently present. 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, heart cath no stent - Social History Smoking Status: Former smoker Smokeless Tobacco Status: No Alcohol use: none Drug use: none - Family History Brother Living Status: Grandfather Family Member Ethnicity: Non- Living Status: Hx Family Cardiac Disorders: Yes (GA, Afib, HTN) Sister Family Member Ethnicity: Non- Living Status: Hx Family Cardiac Disorders: Yes Hx Family Respiratory Disorders: Yes (COPD) Hx Family GI Disorders: Yes (Stomach ulcers) Mother Adopted: No Family Member Ethnicity: Non- Twin of Family Member: Yes, Fraternal Living Status: Hx Family Cardiac Disorders: Yes Hx Family Respiratory Disorders: Yes Hx Family Cancer: No Hx Family GI Disorders: No Hx Family Endocrine Disorder: No Hx Family Neuromuscular Disorders: No Hx Family Neurologic Disorders: No Hx Family HEENT Disorders: No Hx Family Autoimmune Disorders: No Father Adopted: No Family Member Ethnicity: Non- Twin of Family Member: Yes, Fraternal Living Status: Hx Family Cardiac Disorders: Yes (Afib, HTN, GA) Hx Family Respiratory Disorders: Yes Hx Family Cancer: No Hx Family GI Disorders: No Hx Family Endocrine Disorder: No Hx Family Neuromuscular Disorders: No Hx Family Neurologic Disorders: No Hx Family HEENT Disorders: No Hx Family Autoimmune Disorders: No Medications and Allergies Alendronate Sodium [Fosamax] 70 mg PO WE 10/28/15 [History] Ascorbate Calcium [Vitamin C] 500 mg PO DAILY 10/28/15 [History] Tiotropium [Spiriva] 2 puff PO HS 10/28/15 [History] Oxygen 4 l NS CONT 10/24/16 [History] Fluticasone/Salmeterol [Advair 250-50 Diskus] 1 puff IH BID #1 blst.w.dev 11/16/16 [Rx] Montelukast [Singulair] 10 mg PO DAILY 11/29/16 [History] Calcium Carbonate [Calcium] 600 mg PO DAILY 05/08/17 [History] Acetaminophen/Diphenhydramine [Percogesic 325-12.5 mg Tablet] 2 tab PO HS 07/19/17 [History] Cholecalciferol (D-3) [Vitamin D] 1,000 unit PO DAILY 03/14/18 [History] Lisinopril 2.5 mg PO DAILY 03/14/18 [History] Omeprazole [PriLOSEC] 40 mg PO DAILY #30 cap 05/15/18 [Rx] Ropinirole HCl [Requip Xl] 4 mg PO HS 06/04/18 [History] Dexlansoprazole [Dexilant] 60 mg PO DAILY 07/06/18 [History] Cyanocobalamin (B-12) [Vitamin B12] 1,000 mcg PO DAILY 07/07/18 [History] Dofetilide [Tikosyn] 0.5 mg PO 0900,2100 capsule 07/12/18 [Rx] Ferrous Sulfate 325 mg PO DAILY tablet 07/12/18 [Rx] Bumetanide [Bumex] 2 mg PO BIDDIURETIC #60 tablet 08/16/18 [Rx] Diltiazem CD (24hr) [Cardizem CD] 360 mg PO DAILY #60 cap.er.24h 08/16/18 [Rx] Metoprolol XL (24 HR) Succ [Toprol Xl] 75 mg PO BID #30 tab.er.24h 08/16/18 [Rx] Polyethylene Glycol 3350 [MiraLAX] 17 gm PO DAILY PRN powd.pack 08/16/18 [Rx] Warfarin [Coumadin] 5 mg PO DAILY #30 tablet 08/19/18 [Rx] Allergy/AdvReac Type Severity Reaction Status Date / Time albuterol Allergy See Verified 06/20/18 17:30 Comments aspirin [ASA] Allergy Difficulty Verified 06/20/18 17:30 Breathing Penicillins Allergy Hives Verified 06/20/18 17:30 Sulfa (Sulfonamide Allergy Rash Verified 06/20/18 17:30 Antibiotics) ROS unobtainable: due to mental status Palliative Care-Exam - Constitutional Vitals: Temp Pulse Resp BP Pulse Ox 97.5 F L 109 16 134/71 98 09/17/18 11:56 09/17/18 11:56 09/17/18 11:56 09/17/18 12:33 09/17/18 11:56 General appearance: Present: morbidly obese - Head Head Exam: Present: normal inspection, normocephalic - Eye Eye exam: Present: normal appearance, PERRL - Respiratory Additional comments: Diminished breath sounds throughout lung watson - Cardiovascular Cardiovascular exam: Present: irregular rhythm - GI/Abdominal Exam GI/Abdominal exam: Present: normal bowel sounds, soft - Extremities Exam Additional comments: 3+ edema to lower extremities bilaterally. Slight erythema noted as well. - Neurological Exam Additional comments: Sleeping on my arrival, awakens easily. Oriented to name and place, but confused to time and situation. Making inappropriate statements. Falls asleep during conversation - Skin Skin exam: Present: dry, warm Internal Medicine - CN: Reslt - Labs CBC & Chem 7: 09/17/18 05:49 09/17/18 05:49 Labs: Short CBC 09/17/18 Range/Units 05:49 WBC 5.1 (4.3-11.1) K/mcL Hgb 8.0 L (11.5-15.4) g/dL Hct 29.3 L (35.3-44.9) % Plt Count 203 (140-400) K/mcL Neutrophils # 4.4 (1.6-8.9) K/mcL BMP 09/17/18 05:49 Sodium 142 Potassium 4.3 Chloride 95 L Carbon Dioxide 40 H* BUN 71 H Creatinine 1.47 H Glucose 231 H Calcium 9.5 - ABG Interpretation ABG results: ABG ABG pH 7.36 pH Units (7.32-7.45) 09/16/18 04:26 ABG pCO2 79 mmHg (35-45) H* 09/16/18 04:26 ABG pO2 104 mmHg (85-104) 09/16/18 04:26 ABG O2 Saturation 97 % (95-98) 09/16/18 04:26 PT/INR, D-dimer PT 24.1 Seconds (9.4-12.1) H 09/17/18 05:49 Consult Discharge Plan - Plan Referrals: Lisbet Ray TRIMMING PRESS OPERATOR [Primary Care Provider] - Palliative Quality Palliative Quality: Screen for Code Status: NA (Awaiting family, pt too lethargic to discuss), Screen for Goals of Care: NA, Screen for Pain: Yes, If Pain Regimen Started, Initiate Bowel Regimen: NA, Screen for Nausea/Vomitting: Yes Code Status: 09/09/18 00:52 Resuscitation Status: Active [RES] Routine Comment: Resuscitation Status: Full Code
--- NOTE | 2018-09-17 15:42 | Internal Med Progress Note ---
Hospitalist Progress Note - Encounter Date of Encounter: 09/17/18 Time of Encounter: 10:00 - Subjective Interval History: Patient lying down in bed. With BiPAP in place. Family present at bedside. Reports that patient was short of breath earlier today while she was on nasal cannula and had to be switched to BiPAP. Patient feels better while using Bi PAP. Denies any fevers or chills. No chest pain at this time. - Exam Vitals: Temp Pulse Resp BP Pulse Ox 97.5 F L 109 16 134/71 98 09/17/18 11:56 09/17/18 11:56 09/17/18 11:56 09/17/18 12:33 09/17/18 11:56 Exam: General: Patient is alert, no acute distress, oriented x 3 ENT: BiPAP mask in place. Respiratory: Prolonged expiratory phase with wheezing. Cardiovascular: Irregularly irregular rhythm. Tachycardia. Abdomen: Abdomen is soft, nontender. Bowel sounds are present Musculoskeletal: Spontaneously moving all extremities Skin: warm, dry, intact. Neuro: Alert oriented x 3 normal cranial nerves, no focal deficits - Assessment and Plan (1) Chronic respiratory failure with hypercapnia Current Visit: Yes Status: Acute Assessment and Plan: Acute on chronic respiratory failure with hypoxia and hypercapnia. Continue BiPAP use. Patient did qualify for outpatient BiPAP therapy. Will prescribe this at discharge. hardboard factory worker following. Patient considering placement to skilled rehabilitation. Would agree that this would be of benefit for her. (2) Heart failure with preserved ejection fraction Current Visit: Yes Status: Chronic Assessment and Plan: Continue Bumex. (3) Atrial fibrillation Current Visit: Yes Status: Chronic Assessment and Plan: Continue tikosyn. On anticoagulation with warfarin. (4) Anemia Current Visit: Yes Status: Chronic Assessment and Plan: Hemoglobin levels are stable. Continue iron supplements (5) Morbid obesity with BMI of 60.0-69.9, adult Current Visit: Yes Status: Chronic Assessment and Plan: Chronic. (6) COPD (chronic obstructive pulmonary disease) Current Visit: No Status: Chronic Assessment and Plan: Continue bronchodilators, BiPAP. Will transition to oral prednisone. (7) Acute kidney injury superimposed on chronic kidney disease Current Visit: Yes Status: Acute Assessment and Plan: Stable. Creatinine 1.47. However BUN is rising. Will decrease Bumex dose to 1 mg daily for now. - Time Spent with Patient Total time spent is greater than 50% in coordination of care (as documented) at patient's floor/unit and/or counseling patient: Internal Medicine: Result - Labs CBC & Chem 7: 09/17/18 05:49 09/17/18 05:49 Labs: Short CBC 09/17/18 Range/Units 05:49 WBC 5.1 (4.3-11.1) K/mcL Hgb 8.0 L (11.5-15.4) g/dL Hct 29.3 L (35.3-44.9) % Plt Count 203 (140-400) K/mcL Neutrophils # 4.4 (1.6-8.9) K/mcL BMP 09/17/18 05:49 Sodium 142 Potassium 4.3 Chloride 95 L Carbon Dioxide 40 H* BUN 71 H Creatinine 1.47 H Glucose 231 H Calcium 9.5 - ABG Interpretation ABG results: ABG ABG pH 7.36 pH Units (7.32-7.45) 09/16/18 04:26 ABG pCO2 79 mmHg (35-45) H* 09/16/18 04:26 ABG pO2 104 mmHg (85-104) 09/16/18 04:26 ABG O2 Saturation 97 % (95-98) 09/16/18 04:26 PT/INR, D-dimer PT 24.1 Seconds (9.4-12.1) H 09/17/18 05:49 Consult Discharge Plan - Plan Referrals: Lisbet Ray, FLOORING SALES MANAGER [Primary Care Provider] - (2) Heart failure with preserved ejection fraction Qualifiers: Heart failure chronicity: acute on chronic Qualified Code(s): I50.33 - Acute on chronic diastolic (congestive) heart failure (3) Atrial fibrillation Qualifiers: Atrial fibrillation type: paroxysmal Qualified Code(s): I48.0 - Paroxysmal atrial fibrillation (4) Anemia Qualifiers: Anemia type: other cause Other causes of anemia: other cause, not classified Qualified Code(s): D64.89 - Other specified anemias (6) COPD (chronic obstructive pulmonary disease) Qualifiers: COPD type: unspecified COPD Qualified Code(s): J44.9 - Chronic obstructive pulmonary disease, unspecified
[2018-09-17] MEDS ORDERED: *HR* Warfarin 5 MG TABLET PO ONE (18:00)
[2018-09-17] MEDS: Ropinirole Hcl [Requip Xl] 4 MG PO SCH (21:38)
[2018-09-17] MEDS: Melatonin 3 MG TABLET PO PRN (21:38)
[2018-09-18] MEDS: Levalbuterol Neb 0.63 MG/3 ML IH SCH ×4 (04:11→22:33)
[2018-09-18 09:17] LABS: Lymphocytes # 0.3 K/mcL (0.6-4.6); Lymphocytes % 5.2 %; Mean Platelet Volume 11.7 fL (9.4-12.4); Nucleated Red Blood Cells 0.3 /100 WBC (0); Red Cell Distribution Width 16.9 % (11.5-14.5)
[2018-09-18 09:19] LABS: Hematocrit 30.8 % (35.3-44.9); Hemoglobin 8.3 g/dL (11.5-15.4); INR 2.8; Immature Granulocytes % 0.6 % (0-4); Mean Corpuscular HGB Conc 26.9 g/dL (31.6-35.5); Mean Corpuscular Hemoglobin 23.4 pg (28.0-33.3); Monocytes # 0.6 K/mcL (0.0-1.3); Monocytes % 8.6 %; Neutrophils # 5.5 K/mcL (1.6-8.9); Platelet Count 221 K/mcL (140-400); Prothrombin Time 31.1 Seconds (9.4-12.1); Red Blood Count 3.54 M/mcL (3.82-4.97); Segmented Neutrophils % 85.6 %
[2018-09-18] MEDS: Cholecalciferol (D-3) 1,000 UNIT TABLET PO SCH (09:25)
[2018-09-18] MEDS: Cyanocobalamin (B-12) 1,000 MCG TABLET PO SCH (09:25)
[2018-09-18] MEDS: DEXLANSOPRAZOLE 60 MG PO SCH (09:25)
[2018-09-18] MEDS: Diltiazem CD (24hr) 240 MG CAPSULE PO SCH (09:25)
[2018-09-18] MEDS: Ascorbic Acid 500 MG TABLET PO SCH (09:25)
[2018-09-18] MEDS: predniSONE 20 MG TABLET PO SCH (09:26)
[2018-09-18] MEDS: acetaZOLAMIDE 250 MG TABLET PO SCH ×2 (09:26→22:03)
[2018-09-18] MEDS: Bumetanide 1 MG TABLET PO SCH (09:26)
[2018-09-18] MEDS: Budesonide Neb 0.5 MG/2 ML IH SCH ×2 (09:29→22:33)
[2018-09-18 09:32] LABS: Calcium 9.5 mg/dL (8.6-10.3); Potassium 4.5 mEq/L (3.5-5.1)
[2018-09-18 09:50] LABS: Anisocytosis 1+ (Not Present); Hypochromasia Present (Not Present); Platelet Estimate Normal (Normal)
--- NOTE | 2018-09-18 10:36 | Palliative Progress Note ---
Date of Encounter: 09/18/18 Time of Encounter: 10:30 - Assessment and plan (1) Dyspnea Current Visit: No Status: Acute Qualifiers: Dyspnea type: dyspnea on exertion Qualified Code(s): R06.09 - Other forms of dyspnea (2) Constipation Current Visit: Yes Status: Acute Assessment and plan: No BM since admission reported by patient. Had Miralax ordered a few days ago, however, has not received any of this. Will schedule daily until BM and monitor. Add Dulcolax suppository PRN. Qualifiers: Constipation type: other constipation type Qualified Code(s): K59.09 - Other constipation (3) Goals of care, counseling/discussion Current Visit: Yes Status: Acute Assessment and plan: Discussed goals of care at length with patient at bedside. She is struggling with decisions, admits that she is getting tired of all the "pokes and prodding", however, not ready to give up fighting to get better. States that she doesn't want placed on machines, however, states, "I want to be kept alive until my children can all gather to say their goodbyes and give them closure". Patient and have several children between them, and most are out of state ( [place], [place], [place], etc.) Discussed that good for them to visit why she is well enough to spend quality time with them. States that once children would arrive, she would want removed from any life sustaining devices. She states that she will tell her this later this afternoon. Upon discharge - patient wanting to go to swing bed at [place]. PT/OT consult pending, however, not sure they would find her a candidate. May need to select a SNF. D/W ANTONIO Tabor. will be here later today and will revisit at that time. (4) Chronic atrial fibrillation Current Visit: No Status: Chronic (5) Chronic respiratory failure with hypoxia Current Visit: No Status: Chronic - Time Spent With Patient Total time spent is greater than 50% in coordination of care (as documented) at patient's floor/unit and/or counseling patient: - Subjective Interval history: Patient awake and alert, off bipap at present. States feeling good today, slept well. Denies pain or discomfort, eating well. + BM. - Constitutional Vitals: Abnormal lab results RBC 3.54 M/mcL (3.82-4.97) L 09/18/18 08:44 Hgb 8.3 g/dL (11.5-15.4) L 09/18/18 08:44 Hct 30.8 % (35.3-44.9) L 09/18/18 08:44 MCH 23.4 pg (28.0-33.3) L 09/18/18 08:44 MCHC 26.9 g/dL (31.6-35.5) L 09/18/18 08:44 RDW 16.9 % (11.5-14.5) H 09/18/18 08:44 Metamyelocytes % 1.0 % (0) H 09/11/18 07:43 Myelocytes % 2.0 % (0) H 09/11/18 07:43 Lymphocytes # 0.3 K/mcL (0.6-4.6) L 09/18/18 08:44 Nucleated RBCs/100 WBC 0.3 /100 WBC (0) H 09/18/18 08:44 Polychromasia 1+ (Not Present) A 09/14/18 04:36 Hypochromasia Present (Not Present) A 09/18/18 08:44 Poikilocytosis 1+ (Not Present) A 09/11/18 07:43 Basophilic Stippling 1+ (Not Present) A 09/11/18 07:43 Anisocytosis 1+ (Not Present) A 09/18/18 08:44 Macrocytosis Present (Not Present) A 09/14/18 04:36 Stomatocytes 2+ (Not Present) A 09/12/18 04:47 PT 31.1 Seconds (9.4-12.1) H 09/18/18 08:44 ABG pCO2 79 mmHg (35-45) H* 09/16/18 04:26 ABG HCO3 45 mEq/L (21-27) H 09/16/18 04:26 ABG Total CO2 47 mEq/L (20-26) H 09/16/18 04:26 ABG Base Excess 17 mEq/L (-2 to 3) H 09/16/18 04:26 VBG pH 7.31 pH Units (7.32-7.42) L 09/15/18 09:05 VBG pCO2 93 mmHg (41-51) H* 09/15/18 09:05 VBG pO2 192 mmHg (25-50) H 09/15/18 09:05 VBG HCO3 46 mEq/L (21-27) H 09/15/18 09:05 Chloride 96 mEq/L (98-107) L 09/18/18 08:44 Carbon Dioxide 37 mEq/L (23-29) H 09/18/18 08:44 BUN 76 mg/dL (8-23) H 09/18/18 08:44 Creatinine 1.46 mg/dL (0.60-1.20) H 09/18/18 08:44 Est GFR ( Amer) 43 (> 60) L 09/18/18 08:44 Est GFR (Non-Af Amer) 36 (> 60) L 09/18/18 08:44 BUN/Creatinine Ratio 52 (6-26) H 09/18/18 08:44 Glucose 318 mg/dL (70-105) H 09/18/18 08:44 POC Glucose 134 mg/dL (70-99) H 09/10/18 21:24 Calculated Osmolality 329 (280-300) H 09/18/18 08:44 Phosphorus 4.7 mg/dL (2.7-4.5) H 09/10/18 05:00 B-Natriuretic Peptide 124 pg/mL (Less than 100) H 09/12/18 04:47 General appearance: Present: no acute distress - Respiratory Respiratory exam: Present: decreased breath sounds Additional comments: Remains on 6L high flow oxygen - Cardiovascular Cardiovascular exam: Present: +S1, +S2 - GI/Abdominal GI/Abdominal exam: Present: normal bowel sounds, soft - Extremities Exam Extremities exam: Present: normal capillary refill, normal inspection - Neurological Exam Neurological exam: Present: alert, oriented X3, strengths equal and symetr throughout Additional comments: generalized weakness - Skin Skin exam: Present: dry, warm Palliative Quality Palliative Quality: Screen for Code Status: NA (Awaiting family, pt too lethargic to discuss), Screen for Goals of Care: NA, Screen for Pain: Yes, If Pain Regimen Started, Initiate Bowel Regimen: NA, Screen for Nausea/Vomitting: Yes Code Status: 09/09/18 00:52 Resuscitation Status: Active [RES] Routine Comment: Resuscitation Status: Full Code - Labs CBC & Chem 7: 09/18/18 08:44 09/18/18 08:44 Labs: Laboratory Results - last 24 hr 09/18/18 09/18/18 09/18/18 08:44 08:44 08:44 WBC 6.4 RBC 3.54 L Hgb 8.3 L Hct 30.8 L MCV 87.0 MCH 23.4 L MCHC 26.9 L RDW 16.9 H Plt Count 221 MPV 11.7 Immature Gran % 0.6 Seg Neutrophils % 85.6 Lymphocytes % 5.2 Monocytes % 8.6 Eosinophils % 0.0 Basophils % 0.0 Neutrophils # 5.5 Lymphocytes # 0.3 L Monocytes # 0.6 Eosinophils # 0.0 Basophils # 0.0 Nucleated RBCs/100 WBC 0.3 H Platelet Estimate Normal Hypochromasia Present A Anisocytosis 1+ A PT 31.1 H INR 2.8 Sodium 142 Potassium 4.5 Chloride 96 L Carbon Dioxide 37 H BUN 76 H Creatinine 1.46 H Est GFR ( Amer) 43 L Est GFR (Non-Af Amer) 36 L BUN/Creatinine Ratio 52 H Glucose 318 H Calculated Osmolality 329 H Calcium 9.5 - ABG Interpretation ABG results: ABG ABG pH 7.36 pH Units (7.32-7.45) 09/16/18 04:26 ABG pCO2 79 mmHg (35-45) H* 09/16/18 04:26 ABG pO2 104 mmHg (85-104) 09/16/18 04:26 ABG O2 Saturation 97 % (95-98) 09/16/18 04:26 PT/INR, D-dimer PT 31.1 Seconds (9.4-12.1) H 09/18/18 08:44 Consult Discharge Plan - Plan Referrals: Lisbet Ray, HAT FINISHER [Primary Care Provider] -
[2018-09-18] MEDS ORDERED: Diltiazem CD (24hr) 120 MG CAPSULE PO ONE (10:40)
[2018-09-18] MEDS ORDERED: Bisacodyl 10 MG RECTAL SUPPOSITORY RC PRN (10:55)
--- NOTE | 2018-09-18 13:22 | Internal Med Progress Note ---
Hospitalist Progress Note - Encounter Date of Encounter: 09/18/18 Time of Encounter: 10:00 - Subjective Interval History: Hospital course reviewed. States that her breathing had improved since the presentation. Tries to be compliant to BiPaP as much as possible throughout the day. no fever/chills, chest pain, palpitation, or worsening cough. - Exam Vitals: Temp Pulse Resp BP Pulse Ox 98.6 F 118 18 141/87 94 09/18/18 11:24 09/18/18 11:24 09/18/18 11:24 09/18/18 11:24 09/18/18 11:24 Exam: General: Patient is alert, no acute distress, oriented x 3 Respiratory: minimal end expiratory wheezes Cardiovascular: Irregularly irregular rhythm. Tachycardic Abdomen: Abdomen is soft, nontender. Bowel sounds are present Musculoskeletal: Spontaneously moving all extremities - Assessment and Plan (1) Acute and chronic respiratory failure Current Visit: Yes Status: Acute Assessment and Plan: secondary to COPD exacerbation, improving on steroid, bronchodilators, and PRN BiPaP transitioned to PO steroid today, part of elevated BUN could be attributed to steroid continue to wean off O2 (2) COPD (chronic obstructive pulmonary disease) Current Visit: No Status: Chronic Assessment and Plan: Continue bronchodilators, steroid, BiPAP as above (3) Heart failure with preserved ejection fraction Current Visit: Yes Status: Chronic Assessment and Plan: bumex dosage decreased to QD due to BUN rising (which could be due to steroid use) continue the daily dosing for now (4) Acute kidney injury superimposed on chronic kidney disease Current Visit: Yes Status: Resolved Assessment and Plan: Creatinine stable around 1.48 adjust bumex dose as above (5) Atrial fibrillation Current Visit: Yes Status: Acute Assessment and Plan: Continue tikosyn. On anticoagulation with warfarin. increase cardizem to 360mg QD due to HR ~ 110 reluctant to be placed back on bb (6) Anemia Current Visit: Yes Status: Chronic Assessment and Plan: Hemoglobin levels are stable. Continue iron supplements (7) Morbid obesity with BMI of 60.0-69.9, adult Current Visit: Yes Status: Chronic Assessment and Plan: Chronic. (8) Physical deconditioning Current Visit: Yes Status: Chronic Assessment and Plan: PT/OT DVT Prophylaxis: on Coumadin - Time Spent with Patient Total time spent is greater than 50% in coordination of care (as documented) at patient's floor/unit and/or counseling patient: Plan of Care Discussed with: patient Internal Medicine: Result - Labs CBC & Chem 7: 09/18/18 08:44 09/18/18 08:44 Labs: Short CBC 09/18/18 Range/Units 08:44 WBC 6.4 (4.3-11.1) K/mcL Hgb 8.3 L (11.5-15.4) g/dL Hct 30.8 L (35.3-44.9) % Plt Count 221 (140-400) K/mcL Neutrophils # 5.5 (1.6-8.9) K/mcL BMP 09/18/18 08:44 Sodium 142 Potassium 4.5 Chloride 96 L Carbon Dioxide 37 H BUN 76 H Creatinine 1.46 H Glucose 318 H Calcium 9.5 - ABG Interpretation ABG results: ABG ABG pH 7.36 pH Units (7.32-7.45) 09/16/18 04:26 ABG pCO2 79 mmHg (35-45) H* 09/16/18 04:26 ABG pO2 104 mmHg (85-104) 09/16/18 04:26 ABG O2 Saturation 97 % (95-98) 09/16/18 04:26 PT/INR, D-dimer PT 31.1 Seconds (9.4-12.1) H 09/18/18 08:44 Consult Discharge Plan - Plan Referrals: Lisbet Ray, GLASS FURNACE TENDER [Primary Care Provider] - (1) Acute and chronic respiratory failure Qualifiers: Respiratory failure complication: hypoxia Qualified Code(s): J96.21 - Acute and chronic respiratory failure with hypoxia (2) COPD (chronic obstructive pulmonary disease) Qualifiers: COPD type: COPD with acute exacerbation Qualified Code(s): J44.1 - Chronic obstructive pulmonary disease with (acute) exacerbation (3) Heart failure with preserved ejection fraction Qualifiers: Heart failure chronicity: acute on chronic Qualified Code(s): I50.33 - Acute on chronic diastolic (congestive) heart failure (5) Atrial fibrillation Qualifiers: Atrial fibrillation type: paroxysmal Qualified Code(s): I48.0 - Paroxysmal atrial fibrillation (6) Anemia Qualifiers: Anemia type: other cause Other causes of anemia: other cause, not classified Qualified Code(s): D64.89 - Other specified anemias
[2018-09-18] MEDS ORDERED: *HR* Warfarin 2.5 MG TABLET PO ONE (18:00)
[2018-09-18] MEDS: Ropinirole Hcl [Requip Xl] 4 MG PO SCH (22:03)
[2018-09-19] MEDS: Levalbuterol Neb 0.63 MG/3 ML IH SCH ×4 (03:52→22:32)
[2018-09-19 05:52] LABS: Prothrombin Time 33.6 Seconds (9.4-12.1)
[2018-09-19 06:06] LABS: Calcium 9.5 mg/dL (8.6-10.3); Magnesium 2.7 mg/dL (1.6-2.6); Potassium 4.3 mEq/L (3.5-5.1)
[2018-09-19] MEDS: predniSONE 20 MG TABLET PO SCH (09:02)
[2018-09-19] MEDS: Ascorbic Acid 500 MG TABLET PO SCH (09:02)
[2018-09-19] MEDS: acetaZOLAMIDE 250 MG TABLET PO SCH ×2 (09:02→21:02)
[2018-09-19] MEDS: Cholecalciferol (D-3) 1,000 UNIT TABLET PO SCH (09:02)
[2018-09-19] MEDS: Diltiazem CD (24hr) 180 MG CAPSULE PO SCH (09:03)
[2018-09-19] MEDS: Bumetanide 1 MG TABLET PO SCH (09:03)
[2018-09-19] MEDS: Cyanocobalamin (B-12) 1,000 MCG TABLET PO SCH (09:03)
[2018-09-19] MEDS: DEXLANSOPRAZOLE 60 MG PO SCH (09:04)
--- NOTE | 2018-09-19 09:59 | Palliative Progress Note ---
Date of Encounter: 09/19/18 Time of Encounter: 09:45 - Assessment and plan (1) Dyspnea Current Visit: No Status: Acute Assessment and plan: Close to baseline. Continues with supportive oxygen and bipap as needed/ bronchodilators/steroids. Qualifiers: Dyspnea type: dyspnea on exertion Qualified Code(s): R06.09 - Other forms of dyspnea (2) Constipation Current Visit: Yes Status: Acute Assessment and plan: Continue Miralax daily with suppository PRN. Qualifiers: Constipation type: other constipation type Qualified Code(s): K59.09 - Other constipation (3) Goals of care, counseling/discussion Current Visit: Yes Status: Acute Assessment and plan: Discussed again this am with /patient. states that he is losing current job, but did have job offer in [place] where they are close to many grandchildren and family that could her with her care. They still desire to go to rehab upon discharge, and Catarino will be making plans at that time for relocation. Referral has been made to [place] at this time. He did not give me second choice, however, states they would not go back to [facility]. They are aware that she is eligible for hospice care, however, do not desire at this time. Discussed code status at length again, and patient decided that she does not want heroics for cardiac arrest, and does not want to be intubated and placed on ventilator, however, still desires aggressive care up to that point, including cardioversion if needed, as she has had previously when medications failed to control rate. Patient and still seem a bit realistic regarding her prognosis, still stating that a new music manager may be able to wean her off her oxygen and get her lungs stronger. Discussed that with time her chronic illnesses have progressed and very doubtful she will improve much from current state. Palliative will sign off at this point. Please call if needed. (4) Chronic atrial fibrillation Current Visit: No Status: Chronic (5) Chronic respiratory failure with hypoxia Current Visit: No Status: Chronic - Time Spent With Patient Total time spent is greater than 50% in coordination of care (as documented) at patient's floor/unit and/or counseling patient: - Subjective Interval history: Patient awake and alert, off bipap at present. States she is tired, restless and didn't sleep well last night. Catarino at bedside. Labs/vitals reviewed. Cardizem increased per hospitalist yesterday - Constitutional Vitals: Abnormal lab results RBC 3.54 M/mcL (3.82-4.97) L 09/18/18 08:44 Hgb 8.3 g/dL (11.5-15.4) L 09/18/18 08:44 Hct 30.8 % (35.3-44.9) L 09/18/18 08:44 MCH 23.4 pg (28.0-33.3) L 09/18/18 08:44 MCHC 26.9 g/dL (31.6-35.5) L 09/18/18 08:44 RDW 16.9 % (11.5-14.5) H 09/18/18 08:44 Metamyelocytes % 1.0 % (0) H 09/11/18 07:43 Myelocytes % 2.0 % (0) H 09/11/18 07:43 Lymphocytes # 0.3 K/mcL (0.6-4.6) L 09/18/18 08:44 Nucleated RBCs/100 WBC 0.3 /100 WBC (0) H 09/18/18 08:44 Polychromasia 1+ (Not Present) A 09/14/18 04:36 Hypochromasia Present (Not Present) A 09/18/18 08:44 Poikilocytosis 1+ (Not Present) A 09/11/18 07:43 Basophilic Stippling 1+ (Not Present) A 09/11/18 07:43 Anisocytosis 1+ (Not Present) A 09/18/18 08:44 Macrocytosis Present (Not Present) A 09/14/18 04:36 Stomatocytes 2+ (Not Present) A 09/12/18 04:47 PT 33.6 Seconds (9.4-12.1) H 09/19/18 04:59 ABG pCO2 79 mmHg (35-45) H* 09/16/18 04:26 ABG HCO3 45 mEq/L (21-27) H 09/16/18 04:26 ABG Total CO2 47 mEq/L (20-26) H 09/16/18 04:26 ABG Base Excess 17 mEq/L (-2 to 3) H 09/16/18 04:26 VBG pH 7.31 pH Units (7.32-7.42) L 09/15/18 09:05 VBG pCO2 93 mmHg (41-51) H* 09/15/18 09:05 VBG pO2 192 mmHg (25-50) H 09/15/18 09:05 VBG HCO3 46 mEq/L (21-27) H 09/15/18 09:05 Carbon Dioxide 40 mEq/L (23-29) H* 09/19/18 04:59 BUN 74 mg/dL (8-23) H 09/19/18 04:59 Creatinine 1.30 mg/dL (0.60-1.20) H 09/19/18 04:59 Est GFR ( Amer) 49 (> 60) L 09/19/18 04:59 Est GFR (Non-Af Amer) 41 (> 60) L 09/19/18 04:59 BUN/Creatinine Ratio 57 (6-26) H 09/19/18 04:59 Glucose 325 mg/dL (70-105) H 09/19/18 04:59 POC Glucose 134 mg/dL (70-99) H 09/10/18 21:24 Calculated Osmolality 330 (280-300) H 09/19/18 04:59 Phosphorus 4.7 mg/dL (2.7-4.5) H 09/10/18 05:00 Magnesium 2.7 mg/dL (1.6-2.6) H 09/19/18 04:59 B-Natriuretic Peptide 124 pg/mL (Less than 100) H 09/12/18 04:47 General appearance: Present: morbidly obese - Respiratory Respiratory exam: Present: decreased breath sounds, CTAB - Cardiovascular Cardiovascular exam: Present: irregular rhythm - GI/Abdominal GI/Abdominal exam: Present: diminished bowel sounds, soft - Extremities Exam Additional comments: 2-3+ lower extremity edema - Neurological Exam Neurological exam: Present: alert, oriented X3, strengths equal and symetr throughout - Skin Skin exam: Present: dry, pallor, warm Palliative Quality Palliative Quality: Screen for Code Status: NA (Awaiting family, pt too lethargic to discuss), Screen for Goals of Care: NA, Screen for Pain: Yes, If Pain Regimen Started, Initiate Bowel Regimen: NA, Screen for Nausea/Vomitting: Yes Code Status: 09/09/18 00:52 Resuscitation Status: Active [RES] Routine Comment: Resuscitation Status: Full Code 09/19/18 09:56 DNR [Resuscitation Status: Active] [RES] Routine Comment: Resuscitation Status: [id number] - Labs CBC & Chem 7: 09/18/18 08:44 09/19/18 04:59 Labs: Laboratory Results - last 24 hr 09/19/18 09/19/18 04:59 04:59 PT 33.6 H INR 3.0 Sodium 143 Potassium 4.3 Chloride 98 Carbon Dioxide 40 H* BUN 74 H Creatinine 1.30 H Est GFR ( Amer) 49 L Est GFR (Non-Af Amer) 41 L BUN/Creatinine Ratio 57 H Glucose 325 H Calculated Osmolality 330 H Calcium 9.5 Magnesium 2.7 H - ABG Interpretation ABG results: ABG ABG pH 7.36 pH Units (7.32-7.45) 09/16/18 04:26 ABG pCO2 79 mmHg (35-45) H* 09/16/18 04:26 ABG pO2 104 mmHg (85-104) 09/16/18 04:26 ABG O2 Saturation 97 % (95-98) 09/16/18 04:26 PT/INR, D-dimer PT 33.6 Seconds (9.4-12.1) H 09/19/18 04:59 Consult Discharge Plan - Plan Referrals: Lisbet Ray, BOTTOM BLEACHER [Primary Care Provider] -
[2018-09-19] MEDS: Budesonide Neb 0.5 MG/2 ML IH SCH ×2 (10:52→22:32)
--- NOTE | 2018-09-19 15:58 | Internal Med Progress Note ---
Hospitalist Progress Note - Encounter Date of Encounter: 09/19/18 Time of Encounter: 14:20 - Subjective Interval History: No acute events overnight, reports that she is breathing easier. No fever/chills, chest pain, palpitation, or worsening cough. - Exam Vitals: Temp Pulse Resp BP Pulse Ox 98.2 F 105 18 170/73 96 09/19/18 11:49 09/19/18 11:49 09/19/18 11:49 09/19/18 11:49 09/19/18 11:49 Exam: General: Patient is alert, no acute distress, oriented x 3 Respiratory: minimal end expiratory wheezes Cardiovascular: Irregularly irregular rhythm. borderline tachycardia Abdomen: Abdomen is soft, nontender. Bowel sounds are present Musculoskeletal: Spontaneously moving all extremities - Assessment and Plan (1) Acute and chronic respiratory failure Current Visit: Yes Status: Resolved Assessment and Plan: secondary to COPD exacerbation, improving on steroid, bronchodilators, and PRN BiPaP transitioned to PO steroid yesterday, part of elevated BUN could be attributed to steroid. Continue to taper O2 requirement at baseline (2) COPD (chronic obstructive pulmonary disease) Current Visit: No Status: Chronic Assessment and Plan: Continue bronchodilators, steroid, BiPAP as above (3) Heart failure with preserved ejection fraction Current Visit: Yes Status: Chronic Assessment and Plan: bumex dosage decreased to QD due to BUN rising (which could be due to steroid use). Improving continue the daily dosing for now (4) Acute kidney injury superimposed on chronic kidney disease Current Visit: Yes Status: Resolved Assessment and Plan: Creatinine continues to improve adjust bumex dose as above (5) Atrial fibrillation Current Visit: Yes Status: Acute Assessment and Plan: Continue tikosyn. On anticoagulation with warfarin. cardizem increased to 360mg QD yesterday, HR 80-low 110s. discussed with the pt and regarding readding low dose of bb. Refused would consider digoxin if Cr stable and HR remains poorly controlled (6) Anemia Current Visit: Yes Status: Chronic Assessment and Plan: Hemoglobin levels are stable. Continue iron supplements (7) Morbid obesity with BMI of 60.0-69.9, adult Current Visit: Yes Status: Chronic Assessment and Plan: Chronic. (8) Physical deconditioning Current Visit: Yes Status: Chronic Assessment and Plan: PT/OT a/w swing bed confirmation DVT Prophylaxis: on Coumadin - Time Spent with Patient Total time spent is greater than 50% in coordination of care (as documented) at patient's floor/unit and/or counseling patient: Plan of Care Discussed with: patient (discussed with pt's at length) Internal Medicine: Result - Labs CBC & Chem 7: 09/18/18 08:44 09/19/18 04:59 Labs: BMP 09/19/18 04:59 Sodium 143 Potassium 4.3 Chloride 98 Carbon Dioxide 40 H* BUN 74 H Creatinine 1.30 H Glucose 325 H Calcium 9.5 - ABG Interpretation ABG results: ABG ABG pH 7.36 pH Units (7.32-7.45) 09/16/18 04:26 ABG pCO2 79 mmHg (35-45) H* 09/16/18 04:26 ABG pO2 104 mmHg (85-104) 09/16/18 04:26 ABG O2 Saturation 97 % (95-98) 09/16/18 04:26 PT/INR, D-dimer PT 33.6 Seconds (9.4-12.1) H 09/19/18 04:59 Consult Discharge Plan - Plan Referrals: Lisbet Ray, MEDIA ANALYTICS MANAGER [Primary Care Provider] - _ (1) Acute and chronic respiratory failure Qualifiers: Respiratory failure complication: hypoxia Qualified Code(s): J96.21 - Acute and chronic respiratory failure with hypoxia (2) COPD (chronic obstructive pulmonary disease) Qualifiers: COPD type: COPD with acute exacerbation Qualified Code(s): J44.1 - Chronic obstructive pulmonary disease with (acute) exacerbation (3) Heart failure with preserved ejection fraction Qualifiers: Heart failure chronicity: acute on chronic Qualified Code(s): I50.33 - Acute on chronic diastolic (congestive) heart failure (5) Atrial fibrillation Qualifiers: Atrial fibrillation type: paroxysmal Qualified Code(s): I48.0 - Paroxysmal atrial fibrillation (6) Anemia Qualifiers: Anemia type: other cause Other causes of anemia: other cause, not classified Qualified Code(s): D64.89 - Other specified anemias
[2018-09-19] MEDS ORDERED: *HR* Warfarin 2.5 MG TABLET PO ONE (18:00)
[2018-09-19] MEDS: Ropinirole Hcl [Requip Xl] 4 MG PO SCH (21:23)
[2018-09-20] MEDS: Levalbuterol Neb 0.63 MG/3 ML IH SCH ×2 (04:47→10:42)
[2018-09-20 06:12] LABS: Hemoglobin 8.5 g/dL (11.5-15.4)
[2018-09-20 06:19] LABS: Prothrombin Time 33.4 Seconds (9.4-12.1)
[2018-09-20 06:41] LABS: Calcium 9.4 mg/dL (8.6-10.3); Magnesium 2.6 mg/dL (1.6-2.6); Potassium 4.3 mEq/L (3.5-5.1)
[2018-09-20] MEDS: Diltiazem CD (24hr) 180 MG CAPSULE PO SCH (07:34)
[2018-09-20] MEDS: Cyanocobalamin (B-12) 1,000 MCG TABLET PO SCH (07:35)
[2018-09-20] MEDS: acetaZOLAMIDE 250 MG TABLET PO SCH (07:35)
[2018-09-20] MEDS: Ascorbic Acid 500 MG TABLET PO SCH (07:35)
[2018-09-20] MEDS: Bumetanide 1 MG TABLET PO SCH (07:35)
[2018-09-20] MEDS: Cholecalciferol (D-3) 1,000 UNIT TABLET PO SCH (07:36)
[2018-09-20] MEDS: DEXLANSOPRAZOLE 60 MG PO SCH (07:36)
[2018-09-20] MEDS ORDERED: predniSONE 20 MG TABLET PO SCH (09:00)
[2018-09-20] MEDS: Budesonide Neb 0.5 MG/2 ML IH SCH (10:42)
[2018-09-20 10:48] VITALS: BP 147/65
--- NOTE | 2018-09-20 11:50 | Discharge Summary ---
- NOTES TO OUTPATIENT PROVIDER Notes to Outpatient Provider: Patient with morbid obesity complicated by obesity hypoventilation syndrome, chronic respiratory failure on 4L, A. fib, heart failure with preserved EF, COPD was admitted for acute on chronc respiratory failure secondary to COPD exacerbation, bradycardia, and acute on chronic kidney failure. Rate controlling agents were initially discontinued due to bradycardia but she soon developed Afib with RVR requiring re-introduction of PO Cardizem. Also on PO Tikosyn per cardiology. Lengthy discussion with the patient and her regarding reinitiation of low dose bb but was very reluctant to do so as she was not symptomatic in the range of 100s. WOuld consider either bb or digoxin if agreeable. She will complete 2 week taper of steroid for COPD exacerbation and bumex is resumed at daily dosing. Diamox started by nephrology and will need outpatient follow up to establish care for probable CKD. SHe needs to be reminded to wear BiPaP as much as possible while napping to avoid hypercarbia but compliance seems to be an issue. Orders not resulted at time of discharge: Pending orders 09/21/18 04:00 PT/INR [Prothrombin Time INR] [COAG] AM 0400 Date of Encounter: 09/20/18 Time of Encounter: 09:00 - Discharge Diagnosis (1) Acute and chronic respiratory failure Priority: Primary Status: Resolved Qualifiers: Respiratory failure complication: hypoxia Qualified Code(s): J96.21 - Acute and chronic respiratory failure with hypoxia (2) COPD (chronic obstructive pulmonary disease) Priority: Secondary Status: Chronic Qualifiers: COPD type: COPD with acute exacerbation Qualified Code(s): J44.1 - Chronic obstructive pulmonary disease with (acute) exacerbation (3) Heart failure with preserved ejection fraction Priority: Secondary Status: Chronic Qualifiers: Heart failure chronicity: acute on chronic Qualified Code(s): I50.33 - Acute on chronic diastolic (congestive) heart failure (4) Acute kidney injury superimposed on chronic kidney disease Priority: Secondary Status: Resolved (5) Atrial fibrillation Priority: Secondary Status: Acute Qualifiers: Atrial fibrillation type: paroxysmal Qualified Code(s): I48.0 - Paroxysmal atrial fibrillation (6) Anemia Priority: Secondary Status: Chronic Qualifiers: Anemia type: other cause Other causes of anemia: other cause, not classified Qualified Code(s): D64.89 - Other specified anemias (7) Morbid obesity with BMI of 60.0-69.9, adult Priority: Secondary Status: Chronic (8) Physical deconditioning Priority: Secondary Status: Chronic Hospital course: Ms. Guevara is a 67 year old female with morbid obesity complicated by obesity hypoventilation syndrome, chronic respiratory failure on 4L, A. fib, heart failure with preserved EF, COPD, who was admitted for acute on chronc respiratory failure secondary to COPD exacerbation, bradycardia, and acute on chronic kidney failure. Rate controlling agents were initially discontinued due to bradycardia but she soon developed Afib with RVR requiring re-introduction of PO Cardizem. Also on PO Tikosyn per cardiology. Lengthy discussion with the patient and her regarding reinitiation of low dose bb but was very reluctant to do so as she was not symptomatic in the range of 100s. WOuld consider either bb or digoxin if agreeable. She will complete 2 week taper of steroid for COPD exacerbation and bumex is resumed at daily dosing. Diamox started by nephrology and will need outpatient follow up to establish care for probable CKD. SHe needs to be reminded to wear BiPaP as much as possible while napping to avoid hypercarbia but compliance seems to be an issue. Discharge discussed with: patient, family, nurse, senior [employer] consultant - Time Spent with Patient Total time spent providing and/or coordinating discharge services: 35 mins - Discharge Medications Prescriptions: Levalbuterol Neb [Xopenex Neb] 0.63 mg IH [id number] #30 vial.neb acetaZOLAMIDE [Diamox] 250 mg PO BID #60 tablet Bumetanide [Bumex] 1 mg PO DAILY #30 tablet predniSONE [PredniSONE] 40 mg PO DAILY 7 Days #11 tablet Home Medications: Alendronate Sodium [Fosamax] 70 mg PO WE 10/28/15 [History] Ascorbate Calcium [Vitamin C] 500 mg PO DAILY 10/28/15 [History] Tiotropium [Spiriva] 2 puff PO HS 10/28/15 [History] Oxygen 4 l NS CONT 10/24/16 [History] Fluticasone/Salmeterol [Advair 250-50 Diskus] 1 puff IH BID #1 blst.w.dev 11/16/16 [Rx] Montelukast [Singulair] 10 mg PO DAILY 11/29/16 [History] Calcium Carbonate [Calcium] 600 mg PO DAILY 05/08/17 [History] Acetaminophen/Diphenhydramine [Percogesic 325-12.5 mg Tablet] 2 tab PO HS 07/19/17 [History] Cholecalciferol (D-3) [Vitamin D] 1,000 unit PO DAILY 03/14/18 [History] Lisinopril 2.5 mg PO DAILY 03/14/18 [History] Omeprazole [PriLOSEC] 40 mg PO DAILY #30 cap 05/15/18 [Rx] Ropinirole HCl [Requip Xl] 4 mg PO HS 06/04/18 [History] Dexlansoprazole [Dexilant] 60 mg PO DAILY 07/06/18 [History] Cyanocobalamin (B-12) [Vitamin B12] 1,000 mcg PO DAILY 07/07/18 [History] Dofetilide [Tikosyn] 0.5 mg PO 0900,2100 capsule 07/12/18 [Rx] Ferrous Sulfate 325 mg PO DAILY tablet 07/12/18 [Rx] Diltiazem CD (24hr) [Cardizem CD] 360 mg PO DAILY #60 cap.er.24h 08/16/18 [Rx] Polyethylene Glycol 3350 [MiraLAX] 17 gm PO DAILY PRN powd.pack 08/16/18 [Rx] Warfarin [Coumadin] 5 mg PO DAILY #30 tablet 08/19/18 [Rx] Bumetanide [Bumex] 1 mg PO DAILY #30 tablet 09/20/18 [Rx] Levalbuterol Neb [Xopenex Neb] 0.63 mg IH O2GRYAI #30 vial.neb 09/20/18 [Rx] acetaZOLAMIDE [Diamox] 250 mg PO BID #60 tablet 09/20/18 [Rx] predniSONE [PredniSONE] 40 mg PO DAILY 7 Days #11 tablet 09/20/18 [Rx] Allergies/Adverse Reactions: Allergy/AdvReac Type Severity Reaction Status Date / Time albuterol Allergy See Verified 06/20/18 17:30 Comments aspirin [ASA] Allergy Difficulty Verified 06/20/18 17:30 Breathing Penicillins Allergy Hives Verified 06/20/18 17:30 Sulfa (Sulfonamide Allergy Rash Verified 06/20/18 17:30 Antibiotics) Date of admission: 09/10/18 14:21 Primary care physician: Lisbet Ray CNP Consults: 09/09/18 01:09 Consult to Cardiology [CONS] Routine Comment: Consulting Provider: Cardiology Mora Reason for Consult: Evaluation of bradycardia, hx of diastolic HF, afib rate controlled on tikosyn, cardizem, and metoprolol Call Completed: No 09/09/18 08:24 Consult to Nurse Navigator [CONS] Routine Comment: copd 09/09/18 15:18 Consult to Nephrology [CONS] Routine Consulting Provider: Kidney Mora/RUTH/NATHANIEL/BARBARA Reason for Consult: TANO/CKD Call Completed: Yes 09/17/18 12:20 Consult to Palliative Care [CONS] Routine Comment: Consulting Provider: Palliative Care Mora Reason for Consult: GOals of care Time Notified: 12:20 Call Completed: Yes 09/17/18 15:28 Consult to Occupational Therapy [CONS] Routine Comment: Evaluate, develop and implement POC Reason for Consult: pt wants rehab Does patient have active BEDREST order?: No Is patient medically & hemodynamically stable?: Yes Consult to Physical Therapy [CONS] Routine Comment: Evaluate, develop and implement POC Reason for Consult: pt wants rehab Does patient have active BEDREST order?: No Is patient medically & hemodynamically stable?: Yes 09/20/18 09:28 Consult to Sheriffs Officer [CONS] Routine Reason for SW Consult: wants swing bed - Constitutional Vitals: Temp Pulse Resp BP Pulse Ox 98.4 F 109 22 147/65 99 09/20/18 10:38 09/20/18 10:38 09/20/18 10:38 09/20/18 10:38 09/20/18 10:38 Exam: General: Patient is alert, no acute distress, oriented x 3 Respiratory: mostly clear to auscultation Cardiovascular: Irregularly irregular rhythm. borderline tachycardia Abdomen: Abdomen is soft, nontender. Bowel sounds are present Musculoskeletal: Spontaneously moving all extremities - Patient Status Disposition: Transfer Inpatient Rehab Fac Condition: Fair Overall status at discharge: patient is progressing back to baseline - Discharge Instructions Follow Up With: Lisbet Ray CNP [Primary Care Provider] - Additional Instructions: Complete a total of 2 week steroid taper BiPaP HS and PRN during daytime when napping Reinitiation of rate-controlling agent for Afib to be discussing continuously. Reluctant to be restarted on bb but with improvement in her Cr, may be able to start digoxin instead Follow up with Nephrology and Cardiology as outpatient upon discharge - Diet and Activity Activity: as per physical therapy Diet: diabetic diet, low salt diet
--- NOTE | 2018-09-20 12:00 | Physician Discharge Referral ---
ExtendedCare Referral Info Institutional Level of Care: Intermediate - Diagnosis (1) Acute and chronic respiratory failure Priority: Primary Status: Resolved (2) COPD (chronic obstructive pulmonary disease) Priority: Secondary Status: Chronic (3) Heart failure with preserved ejection fraction Priority: Secondary Status: Chronic (4) Acute kidney injury superimposed on chronic kidney disease Priority: Secondary Status: Resolved (5) Atrial fibrillation Priority: Secondary Status: Acute (6) Anemia Priority: Secondary Status: Chronic (7) Morbid obesity with BMI of 60.0-69.9, adult Priority: Secondary Status: Chronic (8) Physical deconditioning Priority: Secondary Status: Chronic - Transfer Medications Prescriptions: Levalbuterol Neb [Xopenex Neb] 0.63 mg IH [id number] #30 vial.neb acetaZOLAMIDE [Diamox] 250 mg PO BID #60 tablet Bumetanide [Bumex] 1 mg PO DAILY #30 tablet predniSONE [PredniSONE] 40 mg PO DAILY 7 Days #11 tablet Home Medications: Alendronate Sodium [Fosamax] 70 mg PO WE 10/28/15 [History] Ascorbate Calcium [Vitamin C] 500 mg PO DAILY 10/28/15 [History] Tiotropium [Spiriva] 2 puff PO HS 10/28/15 [History] Oxygen 4 l NS CONT 10/24/16 [History] Fluticasone/Salmeterol [Advair 250-50 Diskus] 1 puff IH BID #1 blst.w.dev 11/16/16 [Rx] Montelukast [Singulair] 10 mg PO DAILY 11/29/16 [History] Calcium Carbonate [Calcium] 600 mg PO DAILY 05/08/17 [History] Acetaminophen/Diphenhydramine [Percogesic 325-12.5 mg Tablet] 2 tab PO HS 07/19/17 [History] Cholecalciferol (D-3) [Vitamin D] 1,000 unit PO DAILY 03/14/18 [History] Lisinopril 2.5 mg PO DAILY 03/14/18 [History] Omeprazole [PriLOSEC] 40 mg PO DAILY #30 cap 05/15/18 [Rx] Ropinirole HCl [Requip Xl] 4 mg PO HS 06/04/18 [History] Dexlansoprazole [Dexilant] 60 mg PO DAILY 07/06/18 [History] Cyanocobalamin (B-12) [Vitamin B12] 1,000 mcg PO DAILY 07/07/18 [History] Dofetilide [Tikosyn] 0.5 mg PO 0900,2100 capsule 07/12/18 [Rx] Ferrous Sulfate 325 mg PO DAILY tablet 07/12/18 [Rx] Diltiazem CD (24hr) [Cardizem CD] 360 mg PO DAILY #60 cap.er.24h 08/16/18 [Rx] Polyethylene Glycol 3350 [MiraLAX] 17 gm PO DAILY PRN powd.pack 08/16/18 [Rx] Warfarin [Coumadin] 5 mg PO DAILY #30 tablet 08/19/18 [Rx] Bumetanide [Bumex] 1 mg PO DAILY #30 tablet 09/20/18 [Rx] Levalbuterol Neb [Xopenex Neb] 0.63 mg IH G5PAORY #30 vial.neb 09/20/18 [Rx] acetaZOLAMIDE [Diamox] 250 mg PO BID #60 tablet 09/20/18 [Rx] predniSONE [PredniSONE] 40 mg PO DAILY 7 Days #11 tablet 09/20/18 [Rx] Allergies/Adverse Reactions: Allergy/AdvReac Type Severity Reaction Status Date / Time albuterol Allergy See Verified 06/20/18 17:30 Comments aspirin [ASA] Allergy Difficulty Verified 06/20/18 17:30 Breathing Penicillins Allergy Hives Verified 06/20/18 17:30 Sulfa (Sulfonamide Allergy Rash Verified 06/20/18 17:30 Antibiotics) - Respiratory Orders Oxygen / L per min (4L, BIPAP as needed and HS) Smoking Cessation: Smoking cessation has been advised. For more information, call the [place] Tobacco Quit Line at 4-346-BBID-NOW. - Rehabiliation Orders Rehab Orders: Evaluation for Physical Therapy, Evaluation for Occupational Therapy - Diet Orders No Added Salt (SHARON), No Concentrated Sweets CERTIFICATION: I certify that the transfer of the above named patient to an Extended Care Facility is necessary for the continuing treatment of the diagnosis listed. The above information is true and accurate reflection of patient's current condition. Confidential - Redisclosure prohibited without a patient's written consent.
[2018-09-20] MEDS ORDERED: *HR* Warfarin 2.5 MG TABLET PO ONE (18:00)
== END 2018-09-20 12:45 | DRG 189 ==
LOC: EMEROOARM 19:38 → 2NNU 19:38 → SUATTDRO 09-09 02:16 → 2NNU 09-09 03:03 → 2ANU 09-10 13:03 → SUATTDRO 09-10 14:21
PROVIDERS: ADMIT Internal Medicine; ATTEND Internal Medicine

== ENCOUNTER 2019-06-12 05:15 | Inpatient (IN) ==
[2019-06-12 07:38] LABS: Lymphocytes % 5.7 %; Red Cell Distribution Width 17.6 % (11.5-14.5)
[2019-06-12 07:39] LABS: Basophils % 0.2 %; Hematocrit 31.9 % (35.3-44.9); Hemoglobin 9.1 g/dL (11.5-15.4); Immature Granulocytes % 0.8 % (0-4); Lymphocytes # 0.3 K/mcL (0.6-4.6); Mean Corpuscular HGB Conc 28.5 g/dL (31.6-35.5); Mean Corpuscular Hemoglobin 27.1 pg (28.0-33.3); Mean Corpuscular Volume 94.9 fL (83.0-100.0); Mean Platelet Volume 11.9 fL (9.4-12.4); Monocytes # 0.1 K/mcL (0.0-1.3); Monocytes % 2.1 %; Neutrophils # 4.8 K/mcL (1.6-8.9); Platelet Count 180 K/mcL (140-400); Red Blood Count 3.36 M/mcL (3.82-4.97); Segmented Neutrophils % 91.2 %; White Blood Count 5.3 K/mcL (4.3-11.1)
[2019-06-12] MEDS ORDERED: Naloxone 0.4 MG/ML INJ IVP PRN (07:41)
[2019-06-12] MEDS ORDERED: Ondansetron 4 MG/2 ML VIAL IVP PRN (07:41)
[2019-06-12] MEDS ORDERED: Levalbuterol 1 PUFF INHALER IH PRN (07:43)
[2019-06-12 07:54] LABS: INR 5.1; Prothrombin Time 57.9 Seconds (9.4-12.1)
[2019-06-12] MEDS ORDERED: Ipratropium/Albuterol Neb 3 ML IH SCH (08:00)
[2019-06-12 08:01] LABS: Hypochromasia Present (Not Present); Platelet Estimate Normal (Normal)
[2019-06-12 08:32] LABS: BUN/Creatinine Ratio 29 (6-26); Blood Urea Nitrogen 42 mg/dL (8-23); Calcium 9.1 mg/dL (8.6-10.3); Carbon Dioxide 41 mEq/L (23-29); Chloride 92 mEq/L (98-107); Glucose 308 mg/dL (70-105); Magnesium 2.4 mg/dL (1.6-2.6); Osmolality,Calculated 316 (280-300); Potassium 4.6 mEq/L (3.5-5.1); Sodium 142 mEq/L (136-145); Troponin I < 0.03 ng/mL (< 0.04); eGFR For African Americans 44 (> 60); eGFR For Non-African Americans 36 (> 60)
[2019-06-12] MEDS ORDERED: Tiotropium 18 MCG inhalation IH SCH (10:00)
[2019-06-12] MEDS: *HR* Digoxin 0.125 MG TABLET PO SCH (10:41)
[2019-06-12] MEDS: Lactobacillus 1 EACH CAP.SPRINK PO SCH (10:41)
[2019-06-12] MEDS: Diltiazem CD (24hr) 180 MG CAPSULE PO SCH (10:41)
[2019-06-12] MEDS: Simethicone 80 MG TAB.CHEW PO SCH ×3 (10:42→20:31)
[2019-06-12] MEDS: acetaZOLAMIDE 250 MG TABLET PO SCH ×2 (10:46→20:31)
[2019-06-12] MEDS: Azithromycin 500 MG in 0.9 % Sodium Chloride 250 ML IVPB SCH (10:46)
[2019-06-12] MEDS: methylPREDNISolone 125 MG/2 ML VIAL IVP SCH ×3 (12:35→23:52)
[2019-06-12] MEDS: Ipratropium Neb 0.5 MG NEBULIZER IH SCH ×4 (13:01→23:21)
[2019-06-12] MEDS: Budesonide/Formoterol 80/4.5 1 PUFF INH IH SCH ×3 (13:01→20:01)
[2019-06-12] MEDS ORDERED: Perflutren Lipid Microsphere 1.3 ML in 0.9 % Sodium Chloride 8.7 ML IVP ONE (15:23)
[2019-06-12] MEDS ORDERED: Warfarin perPT PO PRN (18:00)
[2019-06-12] MEDS: rOPINIRole 1 MG, rOPINIRole 3 MG PO SCH (20:31)
[2019-06-12] MEDS ORDERED: NON-FORMULARY MEDICATION 1 EACH EACH (Ropinirole Hcl [Requip Xl] 4 MG) PO SCH (21:00)
[2019-06-13] MEDS: Ipratropium Neb 0.5 MG NEBULIZER IH SCH ×5 (03:32→20:20)
[2019-06-13 04:49] LABS: Red Cell Distribution Width 17.2 % (11.5-14.5)
[2019-06-13 04:50] LABS: Hematocrit 31.1 % (35.3-44.9); Hemoglobin 8.6 g/dL (11.5-15.4); Immature Granulocytes % 0.3 % (0-4); Lymphocytes # 0.3 K/mcL (0.6-4.6); Lymphocytes % 4.1 %; Mean Corpuscular HGB Conc 27.7 g/dL (31.6-35.5); Mean Corpuscular Hemoglobin 26.9 pg (28.0-33.3); Mean Corpuscular Volume 97.2 fL (83.0-100.0); Mean Platelet Volume 12.2 fL (9.4-12.4); Monocytes # 0.3 K/mcL (0.0-1.3); Monocytes % 3.7 %; Neutrophils # 6.4 K/mcL (1.6-8.9); Nucleated Red Blood Cells 0.3 /100 WBC (0); Platelet Count 167 K/mcL (140-400); Segmented Neutrophils % 91.9 %
[2019-06-13 05:14] LABS: INR 5.1; Prothrombin Time 57.8 Seconds (9.4-12.1)
[2019-06-13 05:20] LABS: Platelet Estimate Normal (Normal)
[2019-06-13 05:29] LABS: Calcium 9.2 mg/dL (8.6-10.3); Potassium 4.7 mEq/L (3.5-5.1)
[2019-06-13] MEDS: methylPREDNISolone 125 MG/2 ML VIAL IVP SCH ×2 (05:35→17:36)
[2019-06-13] MEDS: Budesonide/Formoterol 80/4.5 1 PUFF INH IH SCH ×2 (07:50→22:25)
[2019-06-13] MEDS ORDERED: Bumetanide 1 MG TABLET PO SCH (09:00)
[2019-06-13] MEDS: Lactobacillus 1 EACH CAP.SPRINK PO SCH (09:47)
[2019-06-13] MEDS: acetaZOLAMIDE 250 MG TABLET PO SCH (09:48)
[2019-06-13] MEDS: *HR* Digoxin 0.125 MG TABLET PO SCH (09:48)
[2019-06-13] MEDS: Simethicone 80 MG TAB.CHEW PO SCH ×3 (09:49→21:04)
[2019-06-13] MEDS: Diltiazem CD (24hr) 180 MG CAPSULE PO SCH (09:49)
[2019-06-13] MEDS: Azithromycin 500 MG in 0.9 % Sodium Chloride 250 ML IVPB SCH ×2 (11:07→12:33)
[2019-06-13] MEDS ORDERED: Azithromycin 250 MG TABLET PO SCH (12:45)
[2019-06-13] MEDS: Furosemide 40 MG TABLET PO SCH (16:02)
[2019-06-13] MEDS: rOPINIRole 1 MG, rOPINIRole 3 MG PO SCH (21:04)
[2019-06-13] MEDS: Metoprolol 100 MG TABLET PO SCH (21:05)
[2019-06-14] MEDS: Ipratropium Neb 0.5 MG NEBULIZER IH SCH ×6 (00:02→20:57)
[2019-06-14] MEDS: methylPREDNISolone 125 MG/2 ML VIAL IVP SCH (06:21)
[2019-06-14] MEDS: Budesonide/Formoterol 80/4.5 1 PUFF INH IH SCH ×2 (07:32→20:56)
[2019-06-14] MEDS: Furosemide 40 MG TABLET PO SCH (07:52)
[2019-06-14] MEDS: Diltiazem CD (24hr) 240 MG CAPSULE PO SCH (07:53)
[2019-06-14] MEDS: Simethicone 80 MG TAB.CHEW PO SCH ×3 (07:53→20:23)
[2019-06-14] MEDS: Metoprolol 100 MG TABLET PO SCH ×2 (07:53→20:23)
[2019-06-14] MEDS: Lactobacillus 1 EACH CAP.SPRINK PO SCH (07:53)
[2019-06-14 09:46] LABS: INR 5.2; Prothrombin Time 59.1 Seconds (9.4-12.1)
[2019-06-14 09:51] LABS: Hematocrit 31.9 % (35.3-44.9); Hemoglobin 9.3 g/dL (11.5-15.4); Mean Corpuscular HGB Conc 29.2 g/dL (31.6-35.5); Mean Corpuscular Hemoglobin 27.8 pg (28.0-33.3); Mean Corpuscular Volume 95.2 fL (83.0-100.0); Mean Platelet Volume 12.1 fL (9.4-12.4); Platelet Count 191 K/mcL (140-400); Red Blood Count 3.35 M/mcL (3.82-4.97); Red Cell Distribution Width 17.2 % (11.5-14.5)
[2019-06-14 10:14] LABS: Potassium 4.7 mEq/L (3.5-5.1)
[2019-06-14] MEDS: Tiotropium 18 MCG inhalation IH SCH (10:53)
[2019-06-14] MEDS: Furosemide 40 MG/4 ML VIAL IVP SCH (16:34)
[2019-06-14] MEDS ORDERED: predniSONE 20 MG TABLET PO SCH (17:00)
[2019-06-14] MEDS ORDERED: MethylPREDNISolone 40 MG/ML VIAL IVP SCH (18:00)
[2019-06-14] MEDS: rOPINIRole 1 MG, rOPINIRole 3 MG PO SCH (20:23)
[2019-06-14] MEDS ORDERED: Furosemide 80 MG in 0.9 % Sodium Chloride 50 ML IV SCH (21:00)
[2019-06-15] MEDS: Ipratropium Neb 0.5 MG NEBULIZER IH SCH ×8 (00:59→23:55)
[2019-06-15 04:52] LABS: Hematocrit 31.4 % (35.3-44.9); Hemoglobin 8.6 g/dL (11.5-15.4); Mean Corpuscular HGB Conc 27.4 g/dL (31.6-35.5); Mean Corpuscular Volume 98.7 fL (83.0-100.0); Mean Platelet Volume 12.2 fL (9.4-12.4); Platelet Count 162 K/mcL (140-400); Red Blood Count 3.18 M/mcL (3.82-4.97); Red Cell Distribution Width 16.6 % (11.5-14.5)
[2019-06-15 04:56] LABS: INR 4.2
[2019-06-15 04:59] LABS: Prothrombin Time 47.9 Seconds (9.4-12.1)
[2019-06-15 05:13] LABS: Potassium 4.4 mEq/L (3.5-5.1)
[2019-06-15] MEDS: Furosemide 40 MG/4 ML VIAL IVP SCH ×2 (07:48→15:53)
[2019-06-15] MEDS: Metoprolol 100 MG TABLET PO SCH ×2 (07:48→19:52)
[2019-06-15] MEDS: predniSONE 10 MG TABLET PO SCH ×2 (07:48→15:53)
[2019-06-15] MEDS: Diltiazem CD (24hr) 240 MG CAPSULE PO SCH (07:51)
[2019-06-15] MEDS: Simethicone 80 MG TAB.CHEW PO SCH ×3 (07:51→19:53)
[2019-06-15] MEDS: Lactobacillus 1 EACH CAP.SPRINK PO SCH (07:51)
[2019-06-15] MEDS: Tiotropium 18 MCG inhalation IH SCH (08:06)
[2019-06-15] MEDS: Budesonide/Formoterol 80/4.5 1 PUFF INH IH SCH ×2 (08:06→19:40)
[2019-06-15] MEDS ORDERED: Azithromycin 250 MG TABLET PO SCH (09:00)
[2019-06-15] MEDS: cefTRIAXone 1,000 MG in Water for inj. (sterile) 10 ML IVP SCH (10:36)
[2019-06-15] MEDS: rOPINIRole 1 MG, rOPINIRole 3 MG PO SCH (19:53)
[2019-06-15] MEDS ORDERED: traMADol 50 MG TABLET PO ONE (23:04)
[2019-06-16] MEDS: Ipratropium Neb 0.5 MG NEBULIZER IH SCH ×6 (03:40→23:25)
[2019-06-16 04:22] LABS: Hematocrit 33.4 % (35.3-44.9); Hemoglobin 9.4 g/dL (11.5-15.4); Mean Corpuscular HGB Conc 28.1 g/dL (31.6-35.5); Mean Corpuscular Hemoglobin 26.6 pg (28.0-33.3); Mean Corpuscular Volume 94.6 fL (83.0-100.0); Mean Platelet Volume 12.4 fL (9.4-12.4); Platelet Count 170 K/mcL (140-400); Red Blood Count 3.53 M/mcL (3.82-4.97); Red Cell Distribution Width 16.6 % (11.5-14.5); White Blood Count 6.7 K/mcL (4.3-11.1)
[2019-06-16 04:27] LABS: INR 3.4; Prothrombin Time 38.2 Seconds (9.4-12.1)
[2019-06-16 04:45] LABS: Calcium 8.8 mg/dL (8.6-10.3); Potassium 4.5 mEq/L (3.5-5.1)
[2019-06-16] MEDS ORDERED: Acetaminophen IV 1,000 MG/100 ML INFUS..BTL IVPB ONE (06:37)
[2019-06-16] MEDS: Budesonide/Formoterol 80/4.5 1 PUFF INH IH SCH ×2 (07:49→20:43)
[2019-06-16] MEDS: Tiotropium 18 MCG inhalation IH SCH (07:49)
[2019-06-16] MEDS: Diltiazem CD (24hr) 240 MG CAPSULE PO SCH (09:13)
[2019-06-16] MEDS: Lactobacillus 1 EACH CAP.SPRINK PO SCH (09:13)
[2019-06-16] MEDS: Metoprolol 100 MG TABLET PO SCH ×2 (09:13→20:11)
[2019-06-16] MEDS: Simethicone 80 MG TAB.CHEW PO SCH ×3 (09:13→20:12)
[2019-06-16] MEDS: Furosemide 40 MG/4 ML VIAL IVP SCH (09:14)
[2019-06-16] MEDS: cefTRIAXone 1,000 MG in Water for inj. (sterile) 10 ML IVP SCH (09:14)
[2019-06-16] MEDS: predniSONE 20 MG TABLET PO SCH ×2 (09:19→16:21)
[2019-06-16] MEDS ORDERED: *HR* Dextrose 50 % in Water (Syg) 50 ML SYRINGE IVP PRN (09:54)
[2019-06-16] MEDS ORDERED: Dextrose Gel 15 GM/37.5 ML TUBE PO PRN ×2 (09:54)
[2019-06-16] MEDS ORDERED: D5% in Water 1,000 ML IVC PRN (09:54)
[2019-06-16 10:51] LABS: Estimated Average Glucose 154 mg/dl
[2019-06-16] MEDS ORDERED: 0.9 % Sodium Chloride 1,000 ML IVC SCH (11:15)
[2019-06-16] MEDS: Insulin LISPRO 300 UNITS/3 ML VIAL SQ SCH ×3 (12:20→20:12)
[2019-06-16] MEDS: rOPINIRole 1 MG, rOPINIRole 3 MG PO SCH (20:12)
[2019-06-16] MEDS ORDERED: Insulin LISPRO 300 UNITS/3 ML VIAL SQ SCH (21:00)
[2019-06-17] MEDS ORDERED: traMADol 50 MG TABLET PO ONE (02:28)
[2019-06-17] MEDS: Ipratropium Neb 0.5 MG NEBULIZER IH SCH ×6 (03:46→23:40)
[2019-06-17 05:59] LABS: INR 2.4; Prothrombin Time 27.4 Seconds (9.4-12.1)
[2019-06-17 06:00] LABS: Red Cell Distribution Width 16.2 % (11.5-14.5)
[2019-06-17 06:01] LABS: Hematocrit 36.2 % (35.3-44.9); Hemoglobin 10.3 g/dL (11.5-15.4); Mean Corpuscular HGB Conc 28.5 g/dL (31.6-35.5); Mean Corpuscular Hemoglobin 26.9 pg (28.0-33.3); Mean Corpuscular Volume 94.5 fL (83.0-100.0); Mean Platelet Volume 12.5 fL (9.4-12.4); Platelet Count 165 K/mcL (140-400); Red Blood Count 3.83 M/mcL (3.82-4.97)
[2019-06-17 06:25] LABS: Calcium 9.2 mg/dL (8.6-10.3)
[2019-06-17] MEDS ORDERED: predniSONE 20 MG TABLET PO ONE (07:00)
[2019-06-17] MEDS: Tiotropium 18 MCG inhalation IH SCH (07:52)
[2019-06-17] MEDS: Budesonide/Formoterol 80/4.5 1 PUFF INH IH SCH ×2 (07:53→21:06)
[2019-06-17] MEDS: Metoprolol 100 MG TABLET PO SCH ×2 (08:25→21:00)
[2019-06-17] MEDS: Lactobacillus 1 EACH CAP.SPRINK PO SCH (08:25)
[2019-06-17] MEDS: Insulin LISPRO 300 UNITS/3 ML VIAL SQ SCH ×4 (08:25→21:18)
[2019-06-17] MEDS: Diltiazem CD (24hr) 240 MG CAPSULE PO SCH (08:25)
[2019-06-17] MEDS: cefTRIAXone 1,000 MG in Water for inj. (sterile) 10 ML IVP SCH (10:10)
[2019-06-17] MEDS: Simethicone 80 MG TAB.CHEW PO SCH ×3 (10:11→21:01)
[2019-06-17] MEDS: Cortisporin *EAR*Susp 10 ML BOTTLE RIGHT EAR SCH ×2 (15:36→20:58)
[2019-06-17] MEDS: Furosemide 40 MG/4 ML VIAL IVP SCH (17:04)
[2019-06-17] MEDS ORDERED: *HR* Warfarin 3 MG TABLET PO ONE (18:00)
[2019-06-17] MEDS ORDERED: Ofloxacin *EAR* Drops 5 ML BOTTLE LEFT EAR SCH (21:00)
[2019-06-17] MEDS: rOPINIRole 1 MG, rOPINIRole 3 MG PO SCH (21:01)
[2019-06-18] MEDS: Ipratropium Neb 0.5 MG NEBULIZER IH SCH ×5 (03:42→20:10)
[2019-06-18 05:28] LABS: Mean Platelet Volume 12.2 fL (9.4-12.4)
[2019-06-18 05:29] LABS: Hemoglobin 10.6 g/dL (11.5-15.4); Mean Corpuscular HGB Conc 27.9 g/dL (31.6-35.5); Mean Corpuscular Volume 96.9 fL (83.0-100.0); Platelet Count 170 K/mcL (140-400); Red Blood Count 3.92 M/mcL (3.82-4.97); Red Cell Distribution Width 16.1 % (11.5-14.5); White Blood Count 8.7 K/mcL (4.3-11.1)
[2019-06-18 05:33] LABS: INR 2.1; Prothrombin Time 24.4 Seconds (9.4-12.1)
[2019-06-18 05:56] LABS: BUN/Creatinine Ratio 36 (6-26); Blood Urea Nitrogen 62 mg/dL (8-23); Calcium 9.5 mg/dL (8.6-10.3); Carbon Dioxide > 45 mEq/L (23-29); Chloride 91 mEq/L (98-107); Glucose 154 mg/dL (70-105); Osmolality,Calculated 313 (280-300); Potassium 4.5 mEq/L (3.5-5.1); Sodium 141 mEq/L (136-145); eGFR For African Americans 36 (> 60); eGFR For Non-African Americans 30 (> 60)
[2019-06-18] MEDS ORDERED: predniSONE 10 MG TABLET PO ONE (07:00)
[2019-06-18] MEDS: Budesonide/Formoterol 80/4.5 1 PUFF INH IH SCH ×3 (07:40→20:30)
[2019-06-18] MEDS: Tiotropium 18 MCG inhalation IH SCH (07:40)
[2019-06-18] MEDS: Diltiazem CD (24hr) 240 MG CAPSULE PO SCH (07:58)
[2019-06-18] MEDS: Simethicone 80 MG TAB.CHEW PO SCH ×3 (07:58→22:14)
[2019-06-18] MEDS: Lactobacillus 1 EACH CAP.SPRINK PO SCH (07:58)
[2019-06-18] MEDS: Metoprolol 100 MG TABLET PO SCH ×2 (07:58→22:12)
[2019-06-18] MEDS: cefTRIAXone 1,000 MG in Water for inj. (sterile) 10 ML IVP SCH (07:59)
[2019-06-18] MEDS: Furosemide 40 MG/4 ML VIAL IVP SCH ×2 (07:59→17:23)
[2019-06-18] MEDS: Insulin LISPRO 300 UNITS/3 ML VIAL SQ SCH ×4 (08:04→22:15)
[2019-06-18] MEDS: Cortisporin *EAR*Susp 10 ML BOTTLE RIGHT EAR SCH ×3 (08:04→22:10)
[2019-06-18 11:20] LABS: ABG Base Excess 16 mEq/L (-2 to 3); ABG HCO3 47 mEq/L (21-27); ABG Oxygen Saturation 95 % (95-98); ABG PCO2 95 mmHg (35-45); ABG PO2 88 mmHg (85-104); ABG TCO2 50 mEq/L (20-26)
[2019-06-18] MEDS: acetaZOLAMIDE 250 MG TABLET PO SCH ×2 (11:55→22:12)
[2019-06-18] MEDS ORDERED: *HR* Warfarin 3 MG TABLET PO ONE (18:00)
[2019-06-18] MEDS: rOPINIRole 1 MG, rOPINIRole 3 MG PO SCH (22:13)
[2019-06-19] MEDS: Ipratropium Neb 0.5 MG NEBULIZER IH SCH ×7 (00:01→23:46)
[2019-06-19 01:36] LABS: ABG Base Excess 18 mEq/L (-2 to 3); ABG HCO3 48 mEq/L (21-27); ABG Oxygen Saturation 98 % (95-98); ABG PCO2 91 mmHg (35-45); ABG PH 7.33 pH Units (7.32-7.45); ABG PO2 114 mmHg (85-104); ABG TCO2 > 50 mEq/L (20-26); Blood Gas VT 500 cc
[2019-06-19 03:30] LABS: ABG Base Excess 19 mEq/L (-2 to 3); ABG HCO3 50 mEq/L (21-27); ABG Oxygen Saturation 99 % (95-98); ABG PCO2 101 mmHg (35-45); ABG PO2 143 mmHg (85-104); ABG TCO2 > 50 mEq/L (20-26); Blood Gas VT 500 cc
[2019-06-19 03:37] LABS: INR 2.4; Prothrombin Time 27.7 Seconds (9.4-12.1)
[2019-06-19 03:59] LABS: Albumin 3.5 g/dL (3.5-5.7); BUN/Creatinine Ratio 39 (6-26); Blood Urea Nitrogen 61 mg/dL (8-23); Calcium 9.3 mg/dL (8.6-10.3); Carbon Dioxide > 45 mEq/L (23-29); Chloride 91 mEq/L (98-107); Glucose 151 mg/dL (70-105); Osmolality,Calculated 312 (280-300); Phosphorous 3.9 mg/dL (2.7-4.5); Potassium 4.5 mEq/L (3.5-5.1); Sodium 141 mEq/L (136-145); eGFR For African Americans 40 (> 60); eGFR For Non-African Americans 33 (> 60)
[2019-06-19 05:16] LABS: ABG Base Excess 20 mEq/L (-2 to 3); ABG HCO3 50 mEq/L (21-27); ABG Oxygen Saturation 98 % (95-98); ABG PCO2 87 mmHg (35-45); ABG PH 7.36 pH Units (7.32-7.45); ABG PO2 116 mmHg (85-104); ABG TCO2 > 50 mEq/L (20-26)
[2019-06-19] MEDS: Tiotropium 18 MCG inhalation IH SCH (07:20)
[2019-06-19] MEDS: Budesonide/Formoterol 80/4.5 1 PUFF INH IH SCH ×2 (07:34→20:05)
[2019-06-19 08:06] LABS: ABG Base Excess 22 mEq/L (-2 to 3); ABG HCO3 51 mEq/L (21-27); ABG Oxygen Saturation 98 % (95-98); ABG PCO2 90 mmHg (35-45); ABG PH 7.37 pH Units (7.32-7.45); ABG PO2 118 mmHg (85-104); ABG TCO2 > 50 mEq/L (20-26); Blood Gas Modality NIV
[2019-06-19] MEDS: cefTRIAXone 1,000 MG in Water for inj. (sterile) 10 ML IVP SCH (09:20)
[2019-06-19] MEDS: Lactobacillus 1 EACH CAP.SPRINK PO SCH (09:20)
[2019-06-19] MEDS: Metoprolol 100 MG TABLET PO SCH ×2 (09:22→21:16)
[2019-06-19] MEDS: Simethicone 80 MG TAB.CHEW PO SCH ×3 (09:22→21:16)
[2019-06-19] MEDS: acetaZOLAMIDE 250 MG TABLET PO SCH ×2 (09:23→21:16)
[2019-06-19] MEDS: Diltiazem CD (24hr) 240 MG CAPSULE PO SCH (09:23)
[2019-06-19] MEDS: Cortisporin *EAR*Susp 10 ML BOTTLE RIGHT EAR SCH ×3 (09:26→21:15)
[2019-06-19] MEDS: Furosemide 40 MG/4 ML VIAL IVP SCH ×2 (09:26→17:32)
[2019-06-19] MEDS: Insulin LISPRO 300 UNITS/3 ML VIAL SQ SCH ×4 (09:26→21:15)
[2019-06-19 10:41] LABS: Bilirubin,Urine Negative (Negative); Blood,Urine Negative (Negative); Clarity,Urine Clear (Clear); Color,Urine Yellow (Yellow); Glucose,Urine (UA) Normal (Normal); Ketones,Urine Negative (Negative); Leukocyte Esterase,Urine Small (Negative); Nitrite,Urine Positive (Negative); Protein,Urine Negative (Neg-Trace); Specific Gravity,Urine 1.013 (1.010-1.025); Urobilinogen,Urine Normal (Normal)
[2019-06-19 10:48] LABS: Protein/Creatinine Ratio,Urine 0.32 mg/mg (0.00-0.20)
[2019-06-19 10:55] LABS: Bacteria,Urine Few per hpf (None-Few); Squamous Epithelial Cell,Urine Few per lpf (None-Few); WBC,Urine 0-3 per hpf (0-3)
[2019-06-19] MEDS: MethylPREDNISolone 40 MG/ML VIAL IVP SCH (17:30)
[2019-06-19] MEDS ORDERED: *HR* Warfarin 3 MG TABLET PO ONE (18:00)
[2019-06-19] MEDS: rOPINIRole 1 MG, rOPINIRole 3 MG PO SCH (21:16)
[2019-06-20] MEDS: MethylPREDNISolone 40 MG/ML VIAL IVP SCH ×3 (01:54→17:38)
[2019-06-20] MEDS: Ipratropium Neb 0.5 MG NEBULIZER IH SCH ×6 (03:51→23:48)
[2019-06-20 05:40] LABS: Hematocrit 34.6 % (35.3-44.9); Hemoglobin 10.1 g/dL (11.5-15.4); Mean Corpuscular HGB Conc 29.2 g/dL (31.6-35.5); Mean Corpuscular Hemoglobin 27.3 pg (28.0-33.3); Mean Corpuscular Volume 93.5 fL (83.0-100.0); Platelet Count 133 K/mcL (140-400); White Blood Count 7.1 K/mcL (4.3-11.1)
[2019-06-20 05:45] LABS: INR 2.3; Prothrombin Time 25.9 Seconds (9.4-12.1)
[2019-06-20 06:13] LABS: BUN/Creatinine Ratio 38 (6-26); Blood Urea Nitrogen 54 mg/dL (8-23); Calcium 9.5 mg/dL (8.6-10.3); Carbon Dioxide > 45 mEq/L (23-29); Chloride 88 mEq/L (98-107); Glucose 236 mg/dL (70-105); Magnesium 2.3 mg/dL (1.6-2.6); Osmolality,Calculated 314 (280-300); Sodium 141 mEq/L (136-145); eGFR For African Americans 44 (> 60); eGFR For Non-African Americans 37 (> 60)
[2019-06-20] MEDS: Tiotropium 18 MCG inhalation IH SCH (07:50)
[2019-06-20] MEDS: Budesonide/Formoterol 80/4.5 1 PUFF INH IH SCH ×2 (07:50→20:07)
[2019-06-20] MEDS: Cortisporin *EAR*Susp 10 ML BOTTLE RIGHT EAR SCH ×3 (09:02→21:12)
[2019-06-20] MEDS: Simethicone 80 MG TAB.CHEW PO SCH ×3 (09:03→21:12)
[2019-06-20] MEDS: Metoprolol 100 MG TABLET PO SCH ×2 (09:04→21:13)
[2019-06-20] MEDS: acetaZOLAMIDE 250 MG TABLET PO SCH ×3 (09:04→21:12)
[2019-06-20] MEDS: Diltiazem CD (24hr) 240 MG CAPSULE PO SCH (09:04)
[2019-06-20] MEDS: Lactobacillus 1 EACH CAP.SPRINK PO SCH (09:05)
[2019-06-20] MEDS: Furosemide 40 MG/4 ML VIAL IVP SCH ×2 (09:05→23:26)
[2019-06-20] MEDS: cefTRIAXone 1,000 MG in Water for inj. (sterile) 10 ML IVP SCH (09:06)
[2019-06-20] MEDS: Insulin LISPRO 300 UNITS/3 ML VIAL SQ SCH ×4 (09:08→21:20)
[2019-06-20] MEDS ORDERED: *HR* Warfarin 3 MG TABLET PO ONE (18:00)
[2019-06-20] MEDS: rOPINIRole 1 MG, rOPINIRole 3 MG PO SCH (21:14)
[2019-06-20] MEDS: Albumin 25% 25gram/100mL 25 GM/100 ML IV.SOLN IVPB SCH (21:15)
[2019-06-21] MEDS: Ipratropium Neb 0.5 MG NEBULIZER IH SCH ×5 (04:18→19:52)
[2019-06-21 04:39] LABS: Red Cell Distribution Width 15.7 % (11.5-14.5)
[2019-06-21 04:40] LABS: Hematocrit 32.2 % (35.3-44.9); Hemoglobin 9.3 g/dL (11.5-15.4); Mean Corpuscular HGB Conc 28.9 g/dL (31.6-35.5); Mean Corpuscular Hemoglobin 26.8 pg (28.0-33.3); Mean Corpuscular Volume 92.8 fL (83.0-100.0); Mean Platelet Volume 12.4 fL (9.4-12.4); Platelet Count 131 K/mcL (140-400); Red Blood Count 3.47 M/mcL (3.82-4.97); White Blood Count 6.3 K/mcL (4.3-11.1)
[2019-06-21 04:50] LABS: Prothrombin Time 22.7 Seconds (9.4-12.1)
[2019-06-21 05:06] LABS: BUN/Creatinine Ratio 43 (6-26); Blood Urea Nitrogen 63 mg/dL (8-23); Calcium 9.4 mg/dL (8.6-10.3); Carbon Dioxide > 45 mEq/L (23-29); Chloride 90 mEq/L (98-107); Glucose 271 mg/dL (70-105); Osmolality,Calculated 318 (280-300); Potassium 4.5 mEq/L (3.5-5.1); Sodium 140 mEq/L (136-145); eGFR For African Americans 42 (> 60); eGFR For Non-African Americans 35 (> 60)
[2019-06-21] MEDS: MethylPREDNISolone 40 MG/ML VIAL IVP SCH ×2 (05:21→18:02)
[2019-06-21] MEDS: Tiotropium 18 MCG inhalation IH SCH (07:47)
[2019-06-21] MEDS: Budesonide/Formoterol 80/4.5 1 PUFF INH IH SCH ×2 (07:47→19:52)
[2019-06-21] MEDS: cefTRIAXone 1,000 MG in Water for inj. (sterile) 10 ML IVP SCH (09:39)
[2019-06-21] MEDS: Albumin 25% 25gram/100mL 25 GM/100 ML IV.SOLN IVPB SCH ×2 (09:40→20:03)
[2019-06-21] MEDS: Diltiazem CD (24hr) 240 MG CAPSULE PO SCH (09:41)
[2019-06-21] MEDS: Metoprolol 100 MG TABLET PO SCH ×2 (09:42→20:07)
[2019-06-21] MEDS: Simethicone 80 MG TAB.CHEW PO SCH ×3 (09:42→20:07)
[2019-06-21] MEDS: Lactobacillus 1 EACH CAP.SPRINK PO SCH (09:42)
[2019-06-21] MEDS: Insulin LISPRO 300 UNITS/3 ML VIAL SQ SCH ×4 (09:43→20:13)
[2019-06-21] MEDS: Cortisporin *EAR*Susp 10 ML BOTTLE RIGHT EAR SCH ×3 (09:44→20:10)
[2019-06-21] MEDS: acetaZOLAMIDE 250 MG TABLET PO SCH ×3 (09:53→20:07)
[2019-06-21] MEDS: Furosemide 40 MG/4 ML VIAL IVP SCH ×2 (12:02→22:16)
[2019-06-21] MEDS: Ertapenem 1,000 MG in 0.9 % Sodium Chloride Mini Bag 100 ML IVPB SCH (13:17)
[2019-06-21] MEDS: hydrALAZINE 25 MG TABLET PO SCH (16:27)
[2019-06-21] MEDS ORDERED: *HR* Warfarin 3 MG TABLET PO ONE (18:00)
[2019-06-21] MEDS: rOPINIRole 1 MG, rOPINIRole 3 MG PO SCH (20:07)
[2019-06-21] MEDS: Insulin DETEMIR 100 UNIT/ML X5UNITS SQ SCH (20:14)
[2019-06-21] MEDS ORDERED: *HR* OxyCODONE Immed Rel 5 MG TABLET PO ONE (22:06)
[2019-06-22] MEDS: hydrALAZINE 25 MG TABLET PO SCH ×4 (00:27→23:21)
[2019-06-22] MEDS: Ipratropium Neb 0.5 MG NEBULIZER IH SCH ×6 (00:32→20:08)
[2019-06-22 04:15] LABS: INR 1.7; Prothrombin Time 19.2 Seconds (9.4-12.1)
[2019-06-22 04:20] LABS: Hemoglobin 9.4 g/dL (11.5-15.4); Mean Corpuscular HGB Conc 27.6 g/dL (31.6-35.5); Mean Corpuscular Volume 97.7 fL (83.0-100.0); Mean Platelet Volume 12.7 fL (9.4-12.4); Platelet Count 134 K/mcL (140-400); Red Blood Count 3.48 M/mcL (3.82-4.97); Red Cell Distribution Width 15.9 % (11.5-14.5); White Blood Count 6.9 K/mcL (4.3-11.1)
[2019-06-22 04:35] LABS: Calcium 9.8 mg/dL (8.6-10.3); Potassium 4.3 mEq/L (3.5-5.1)
[2019-06-22] MEDS: MethylPREDNISolone 40 MG/ML VIAL IVP SCH (05:02)
[2019-06-22] MEDS: Budesonide/Formoterol 80/4.5 1 PUFF INH IH SCH ×2 (07:57→20:08)
[2019-06-22] MEDS: Tiotropium 18 MCG inhalation IH SCH (07:57)
[2019-06-22] MEDS: Albumin 25% 25gram/100mL 25 GM/100 ML IV.SOLN IVPB SCH ×2 (08:18→21:46)
[2019-06-22] MEDS: Diltiazem CD (24hr) 240 MG CAPSULE PO SCH (08:20)
[2019-06-22] MEDS: acetaZOLAMIDE 250 MG TABLET PO SCH ×3 (08:21→21:45)
[2019-06-22] MEDS: Simethicone 80 MG TAB.CHEW PO SCH ×3 (08:21→21:45)
[2019-06-22] MEDS: Metoprolol 100 MG TABLET PO SCH ×2 (08:22→21:45)
[2019-06-22] MEDS: Lactobacillus 1 EACH CAP.SPRINK PO SCH (08:22)
[2019-06-22] MEDS: Cortisporin *EAR*Susp 10 ML BOTTLE RIGHT EAR SCH ×3 (08:22→21:45)
[2019-06-22] MEDS: Insulin LISPRO 300 UNITS/3 ML VIAL SQ SCH ×4 (08:23→21:47)
[2019-06-22] MEDS: Insulin DETEMIR 100 UNIT/ML X5UNITS SQ SCH ×2 (08:33→21:47)
[2019-06-22] MEDS: Ertapenem 1,000 MG in 0.9 % Sodium Chloride Mini Bag 100 ML IVPB SCH (10:47)
[2019-06-22] MEDS: Furosemide 40 MG/4 ML VIAL IVP SCH (10:47)
[2019-06-22] MEDS ORDERED: *HR* Warfarin 3 MG TABLET PO ONE (18:00)
[2019-06-22] MEDS: rOPINIRole 1 MG, rOPINIRole 3 MG PO SCH (21:44)
[2019-06-22] MEDS: Furosemide 40 MG TABLET PO SCH (22:00)
[2019-06-23] MEDS: Ipratropium Neb 0.5 MG NEBULIZER IH SCH ×7 (00:18→23:55)
[2019-06-23 04:32] LABS: Red Cell Distribution Width 16.1 % (11.5-14.5)
[2019-06-23 04:33] LABS: Hematocrit 35.8 % (35.3-44.9); Hemoglobin 9.9 g/dL (11.5-15.4); Mean Corpuscular HGB Conc 27.7 g/dL (31.6-35.5); Mean Corpuscular Hemoglobin 27.2 pg (28.0-33.3); Mean Corpuscular Volume 98.4 fL (83.0-100.0); Mean Platelet Volume 11.7 fL (9.4-12.4); Platelet Count 139 K/mcL (140-400); Red Blood Count 3.64 M/mcL (3.82-4.97); White Blood Count 8.5 K/mcL (4.3-11.1)
[2019-06-23 04:39] LABS: INR 1.8
[2019-06-23 04:59] LABS: Calcium 10.1 mg/dL (8.6-10.3); Potassium 4.4 mEq/L (3.5-5.1)
[2019-06-23] MEDS: Tiotropium 18 MCG inhalation IH SCH (07:30)
[2019-06-23] MEDS: Budesonide/Formoterol 80/4.5 1 PUFF INH IH SCH ×2 (07:35→19:53)
[2019-06-23] MEDS: Albumin 25% 25gram/100mL 25 GM/100 ML IV.SOLN IVPB SCH ×2 (09:03→23:34)
[2019-06-23] MEDS: hydrALAZINE 25 MG TABLET PO SCH ×2 (09:04→16:39)
[2019-06-23] MEDS: Lactobacillus 1 EACH CAP.SPRINK PO SCH (09:04)
[2019-06-23] MEDS: Metoprolol 100 MG TABLET PO SCH ×2 (09:04→23:16)
[2019-06-23] MEDS: Diltiazem CD (24hr) 240 MG CAPSULE PO SCH (09:05)
[2019-06-23] MEDS: predniSONE 20 MG TABLET PO SCH (09:05)
[2019-06-23] MEDS: Simethicone 80 MG TAB.CHEW PO SCH ×3 (09:05→23:36)
[2019-06-23] MEDS: Ertapenem 1,000 MG in 0.9 % Sodium Chloride Mini Bag 100 ML IVPB SCH (09:06)
[2019-06-23] MEDS: Cortisporin *EAR*Susp 10 ML BOTTLE RIGHT EAR SCH ×3 (09:06→23:35)
[2019-06-23] MEDS: Insulin LISPRO 300 UNITS/3 ML VIAL SQ SCH ×4 (09:10→23:35)
[2019-06-23] MEDS: acetaZOLAMIDE 250 MG TABLET PO SCH ×3 (09:17→23:36)
[2019-06-23] MEDS: Furosemide 40 MG TABLET PO SCH ×2 (09:31→23:37)
[2019-06-23] MEDS: Insulin DETEMIR 100 UNIT/ML X5UNITS SQ SCH ×2 (09:59→23:46)
[2019-06-23 16:39] LABS: ABG Base Excess 15 mEq/L (-2 to 3); ABG HCO3 46 mEq/L (21-27); ABG Oxygen Saturation 90 % (95-98); ABG PCO2 97 mmHg (35-45); ABG PH 7.29 pH Units (7.32-7.45); ABG PO2 72 mmHg (85-104); ABG TCO2 49 mEq/L (20-26)
[2019-06-23] MEDS ORDERED: *HR* LORazepam 2 MG/ML VIAL IVP ONE (17:21)
[2019-06-23] MEDS ORDERED: *HR* Warfarin 3 MG TABLET PO ONE (18:00)
[2019-06-23] MEDS: rOPINIRole 1 MG, rOPINIRole 3 MG PO SCH (23:16)
[2019-06-24] MEDS ORDERED: Meropenem 1,000 MG in Water for inj. (sterile) 20 ML IVP SCH (00:15)
[2019-06-24 01:53] LABS: ABG Base Excess 15 mEq/L (-2 to 3); ABG HCO3 45 mEq/L (21-27); ABG Oxygen Saturation 98 % (95-98); ABG PCO2 103 mmHg (35-45); ABG PH 7.26 pH Units (7.32-7.45); ABG PO2 122 mmHg (85-104); ABG TCO2 49 mEq/L (20-26); Blood Gas Modality BiLevel
[2019-06-24 03:20] LABS: ABG Base Excess 15 mEq/L (-2 to 3); ABG HCO3 46 mEq/L (21-27); ABG Oxygen Saturation 95 % (95-98); ABG PCO2 102 mmHg (35-45); ABG PH 7.26 pH Units (7.32-7.45); ABG PO2 92 mmHg (85-104); ABG TCO2 49 mEq/L (20-26); Blood Gas Modality BiLevel
[2019-06-24] MEDS: Ipratropium Neb 0.5 MG NEBULIZER IH SCH ×6 (03:29→23:57)
[2019-06-24] MEDS: hydrALAZINE 25 MG TABLET PO SCH ×3 (05:33→15:58)
[2019-06-24 05:51] LABS: ABG Base Excess 16 mEq/L (-2 to 3); ABG HCO3 46 mEq/L (21-27); ABG Oxygen Saturation 98 % (95-98); ABG PCO2 96 mmHg (35-45); ABG PH 7.29 pH Units (7.32-7.45); ABG PO2 117 mmHg (85-104); ABG TCO2 49 mEq/L (20-26)
[2019-06-24] MEDS: Meropenem 1,000 MG in Water for inj. (sterile) 20 ML IVP SCH ×2 (06:30→18:28)
[2019-06-24] MEDS: Tiotropium 18 MCG inhalation IH SCH (07:39)
[2019-06-24] MEDS: Budesonide/Formoterol 80/4.5 1 PUFF INH IH SCH ×2 (07:40→20:29)
[2019-06-24] MEDS: Diltiazem CD (24hr) 240 MG CAPSULE PO SCH (09:22)
[2019-06-24] MEDS: predniSONE 20 MG TABLET PO SCH (09:23)
[2019-06-24] MEDS: Simethicone 80 MG TAB.CHEW PO SCH ×3 (09:23→20:16)
[2019-06-24] MEDS: Metoprolol 100 MG TABLET PO SCH ×2 (09:23→20:16)
[2019-06-24] MEDS: Lactobacillus 1 EACH CAP.SPRINK PO SCH (09:24)
[2019-06-24] MEDS: acetaZOLAMIDE 250 MG TABLET PO SCH ×3 (09:24→20:29)
[2019-06-24] MEDS: Insulin DETEMIR 100 UNIT/ML X5UNITS SQ SCH ×2 (09:27→20:15)
[2019-06-24] MEDS: Insulin LISPRO 300 UNITS/3 ML VIAL SQ SCH ×4 (09:27→20:16)
[2019-06-24] MEDS: Furosemide 40 MG TABLET PO SCH ×2 (09:30→20:29)
[2019-06-24 09:46] LABS: Basophils % 0.1 %; Hematocrit 38.2 % (35.3-44.9); Hemoglobin 10.6 g/dL (11.5-15.4); Immature Granulocytes % 0.9 % (0-4); Lymphocytes # 0.4 K/mcL (0.6-4.6); Lymphocytes % 5.2 %; Mean Corpuscular HGB Conc 27.7 g/dL (31.6-35.5); Mean Corpuscular Hemoglobin 27.2 pg (28.0-33.3); Mean Corpuscular Volume 98.2 fL (83.0-100.0); Mean Platelet Volume 11.7 fL (9.4-12.4); Monocytes # 0.7 K/mcL (0.0-1.3); Monocytes % 8.2 %; Neutrophils # 6.9 K/mcL (1.6-8.9); Platelet Count 117 K/mcL (140-400); Red Blood Count 3.89 M/mcL (3.82-4.97); Red Cell Distribution Width 16.2 % (11.5-14.5); Segmented Neutrophils % 85.6 %
[2019-06-24 09:48] LABS: INR 1.9; Prothrombin Time 21.5 Seconds (9.4-12.1)
[2019-06-24 10:02] LABS: BUN/Creatinine Ratio 50 (6-26); Blood Urea Nitrogen 80 mg/dL (8-23); Carbon Dioxide > 45 mEq/L (23-29); Chloride 92 mEq/L (98-107); Glucose 220 mg/dL (70-105); Osmolality,Calculated 331 (280-300); Potassium 4.4 mEq/L (3.5-5.1); Sodium 145 mEq/L (136-145); eGFR For African Americans 38 (> 60); eGFR For Non-African Americans 32 (> 60)
[2019-06-24 10:13] LABS: Anisocytosis 1+ (Not Present); Macrocytosis Present (Not Present); Platelet Estimate Slight Decrease (Normal)
[2019-06-24] MEDS ORDERED: *HR* Warfarin 3 MG TABLET PO ONE (18:00)
[2019-06-24] MEDS: rOPINIRole 1 MG, rOPINIRole 3 MG PO SCH (20:16)
[2019-06-25] MEDS: hydrALAZINE 25 MG TABLET PO SCH ×3 (00:02→16:08)
[2019-06-25] MEDS: Ipratropium Neb 0.5 MG NEBULIZER IH SCH ×4 (04:13→16:36)
[2019-06-25 04:29] LABS: Hematocrit 37.5 % (35.3-44.9)
[2019-06-25 04:31] LABS: Mean Corpuscular HGB Conc 26.7 g/dL (31.6-35.5); Mean Corpuscular Hemoglobin 26.8 pg (28.0-33.3); Mean Corpuscular Volume 100.5 fL (83.0-100.0); Mean Platelet Volume 12.3 fL (9.4-12.4); Platelet Count 116 K/mcL (140-400); Red Blood Count 3.73 M/mcL (3.82-4.97); Red Cell Distribution Width 16.3 % (11.5-14.5); White Blood Count 9.6 K/mcL (4.3-11.1)
[2019-06-25 04:38] LABS: INR 2.1; Prothrombin Time 24.3 Seconds (9.4-12.1)
[2019-06-25 04:53] LABS: BUN/Creatinine Ratio 48 (6-26); Blood Urea Nitrogen 81 mg/dL (8-23); Calcium 9.9 mg/dL (8.6-10.3); Carbon Dioxide > 45 mEq/L (23-29); Chloride 94 mEq/L (98-107); Glucose 173 mg/dL (70-105); Osmolality,Calculated 331 (280-300); Potassium 4.2 mEq/L (3.5-5.1); Sodium 146 mEq/L (136-145); eGFR For African Americans 36 (> 60); eGFR For Non-African Americans 30 (> 60)
[2019-06-25] MEDS: Meropenem 1,000 MG in Water for inj. (sterile) 20 ML IVP SCH (05:23)
[2019-06-25] MEDS: Budesonide/Formoterol 80/4.5 1 PUFF INH IH SCH (07:43)
[2019-06-25] MEDS: Tiotropium 18 MCG inhalation IH SCH (07:43)
[2019-06-25] MEDS: Metoprolol 100 MG TABLET PO SCH (08:33)
[2019-06-25] MEDS: Lactobacillus 1 EACH CAP.SPRINK PO SCH (08:33)
[2019-06-25] MEDS: Diltiazem CD (24hr) 240 MG CAPSULE PO SCH (08:35)
[2019-06-25] MEDS: Furosemide 40 MG TABLET PO SCH (08:36)
[2019-06-25] MEDS: predniSONE 20 MG TABLET PO SCH (08:36)
[2019-06-25] MEDS: Simethicone 80 MG TAB.CHEW PO SCH ×2 (08:36→16:08)
[2019-06-25] MEDS: Insulin LISPRO 300 UNITS/3 ML VIAL SQ SCH ×2 (08:37→12:48)
[2019-06-25] MEDS: Insulin DETEMIR 100 UNIT/ML X5UNITS SQ SCH (08:38)
[2019-06-25] MEDS ORDERED: acetaZOLAMIDE 250 MG TABLET PO SCH (09:00)
[2019-06-25] MEDS ORDERED: Furosemide 40 MG TABLET PO SCH (17:00)
[2019-06-25] MEDS ORDERED: *HR* Warfarin 3 MG TABLET PO SCH (18:00)
[2019-06-25] MEDS ORDERED: Meropenem 1,000 MG in 0.9 % Sodium Chloride Mini Bag 100 ML IVPB SCH (18:00)
[2019-06-25 19:43] VITALS: BP 120/72
== END 2019-06-25 20:06 | disposition hospice, inpatient (51) | DRG 291 ==
LOC: 3ANU → SUATTDRO 06:50
PROVIDERS: ADMIT Internal Medicine; ATTEND Student in an Organized Health Care Education/Training Program

== ENCOUNTER 2019-06-25 14:53 | Inpatient (IN) ==
[2019-06-25] MEDS ORDERED: *HR* LORazepam Oral Conc 2 MG/ML PO PRN (15:34)
[2019-06-25] MEDS ORDERED: Bisacodyl 10 MG RECTAL SUPPOSITORY RC PRN (15:34)
[2019-06-25] MEDS ORDERED: Levalbuterol Neb 1.25 MG/3 ML IH PRN (15:39)
[2019-06-25] MEDS ORDERED: Atropine Sulfate 1% 40 DROP/2 ML BOTTLE SL PRN (15:39)
[2019-06-26 20:34] VITALS: BP 67/38
== END 2019-06-26 21:10 | disposition expired | DRG 951 ==
LOC: 2ANU 20:29
PROVIDERS: ADMIT Internal Medicine Hospice and Palliative Medicine; ATTEND Internal Medicine Hospice and Palliative Medicine